=== PATIENT | female | born 1940 | race Caucasian/White ===

== ENCOUNTER 2016-09-23 12:54 | Inpatient (IN) | payer MEDICARE, OTHER ==
[2016-09-23] MEDS ORDERED: IBUPROFEN IV 600 MG in SODIUM CHLORIDE 0.9% 250 ML IV STA (13:32)
[2016-09-23] MEDS ORDERED: ACETAMINOPHEN TAB 500 MG TAB PO STA (13:32)
--- NOTE | 2016-09-23 13:37 | ED ---
General Adult HPI - General Chief complaint: Shortness of Breath Stated complaint: Chest Pain STEPHANIE Time Seen by Provider: 09/23/16 13:10 Source: patient, RN notes reviewed Mode of arrival: wheelchair Limitations: no limitations - History of Present Illness Initial comments: This is a 76-year-old female who presents emergency Department complaining of difficulty breathing over the last 3 days which is worsened every day. Patient also has become a little bit more confused today according to the daughter. Family is unaware that the patient has a fever of 101.1. Patient denies any significant cough lately. Patient denies any headache patient denies numbness weakness. Patient denies lightheadedness dizziness or near syncopal episode. Patient states all of her joints hurt her shoulders knee even her groin on the right hurts. Patient denies any abdominal pain patient denies nausea vomiting or diarrhea. Patient denies any back pain. Patient denies any dysuria hematuria urinary frequency. - Related Data Home Medications Medication Instructions Recorded Confirmed Albuterol Nebulized [Ventolin 2.5 mg INHALATION RT-BID 09/23/16 09/23/16 Nebulized] Albuterol Sulfate [Proventil Hfa] 1 - 2 puff INHALATION RT-Q6H PRN 09/23/1607/11 Aspirin 81 mg PO DAILY 09/23/16 09/23/16 Atorvastatin Calcium [Lipitor] 80 mg PO HS 09/23/16 09/23/16 Cilostazol [Pletal] 100 mg PO BID 09/23/16 09/23/16 Clopidogrel Bisulfate [Plavix] 75 mg PO DAILY 09/23/16 09/23/16 Cyclobenzaprine [Flexeril] 10 mg PO HS PRN 09/23/16 09/23/16 Fluticasone/Salmeterol [Advair 1 inhalation PO RT-BID 09/23/16 09/23/16 100-50 Diskus] Gabapentin [Neurontin] 100 mg PO TID 09/23/16 09/23/16 HYDROcodone/APAP 10-325MG [[place] 1 tab PO BID 09/23/16 09/23/16 10-325] Lmfol Ca/Acetyl/Mb12/Algal Oil 1 tab PO DAILY 09/23/16 09/23/16 [Cerefolin Nac Caplet] Metoprolol Tartrate [Lopressor] 25 mg PO BID 09/23/16 09/23/16 Multivitamins, Thera [Multivitamin 1 tab PO DAILY 09/23/16 09/23/16 (formulary)] Pantoprazole Sodium [Protonix] 40 mg PO DAILY 09/23/16 09/23/16 Ranitidine HCl [Zantac] 150 mg PO DAILY PRN 09/23/16 09/23/16 Tiotropium 18 Mcg/Puff [Spiriva] 1 cap INHALATION RT-DAILY 09/23/16 09/23/16 Valsartan [Diovan] 80 mg PO DAILY 09/23/16 09/23/16 Vit A,C & E/Lutein/Minerals 1 tab PO DAILY 09/23/16 09/23/16 [Ocuvite with Lutein Tablet] Allergies Allergy/AdvReac Type Severity Reaction Status Date / Time No Known Allergies Allergy Verified 09/23/16 13:35 Review of Systems ROS Statement: Those systems with pertinent positive or pertinent negative responses have been documented in the HPI. ROS Other: All systems not noted in ROS Statement are negative. Past Medical History Past Medical History: Cancer, COPD, Fibromyalgia, Hyperlipidemia, Hypertension Additional Past Medical History / Comment(s): back pain , lung cancer History of Any Multi-Drug Resistant Organisms: None Reported Past Surgical History: Heart Catheterization With Stent Past Psychological History: Depression Smoking Status: Former smoker Past Alcohol Use History: None Reported Past Drug Use History: None Reported General Exam - General Exam Comments Initial Comments: GENERAL: Patient is well-developed and well-nourished. Patient is nontoxic and well- hydrated and is in mild distress. ENT: Neck is soft and supple. No significant lymphadenopathy is noted. Oropharynx is clear. Moist mucous membranes. Neck has full range of motion without eliciting any pain. EYES: The sclera were anicteric and conjunctiva were pink and moist. Extraocular movements were intact and pupils were equal round and reactive to light. Eyelids were unremarkable. PULMONARY: Patient has diminished breath sounds particularly in the bases. CARDIOVASCULAR: There is a regular rate and rhythm without any murmurs gallops or rubs. ABDOMEN: Soft and nontender with normal bowel sounds. No palpable organomegaly was noted. There is no palpable pulsatile mass. SKIN: Skin is clear with no lesions or rashes and otherwise unremarkable. NEUROLOGIC: Patient is alert and oriented x3. Cranial nerves II through XII are grossly intact. Motor and sensory are also intact. Normal speech, volume and content. Symmetrical smile. MUSCULOSKELETAL: Normal extremities with adequate strength and full range of motion. No lower extremity swelling or edema. No calf tenderness. LYMPHATICS: No significant lymphadenopathy is noted PSYCHIATRIC: Normal psychiatric evaluation. Normal interpersonal interactions appears functionally intact in deals appropriately with others. No signs of depression. No signs of anxiety. Limitations: no limitations Course Vital Signs 09/23/16 09/23/16 13:10 13:21 Temperature 98.6 F 101.1 F H Pulse Rate 69 94 Respiratory 20 20 Rate Blood Pressure 179/71 172/78 O2 Sat by Pulse 99 96 Oximetry Medical Decision Making - Medical Decision Making Patient's EKG shows sinus rhythm with occasional PAC at 96 bpm GA interval 170 QRS is 74 Q-T intervals 358 QTC is 452. Patient's EKG has no ST segment elevations or depression or T wave abnormalities are noted. Chest x-ray shows shows a right middle lobe infiltrate. I started patient on Levaquin because of the patient's altered mental status the pneumonia high fever I brought the patient and is admitted patient. I with Dr. Veliz he agreed to admit the patient and wrote admitting orders. - Lab Data Result diagrams: 09/23/16 14:14 09/23/16 14:14 Lab Results 09/23/16 09/23/16 09/23/16 Range/Units 13:40 14:14 14:14 WBC 22.6 H (3.8-10.6) k/uL RBC 3.93 (3.80-5.40) m/uL Hgb 12.1 (11.4-16.0) gm/dL Hct 36.2 (34.0-46.0) % MCV 92.1 (80.0-100.0) fL MCH 30.8 (25.0-35.0) pg MCHC 33.5 (31.0-37.0) g/dL RDW 13.6 (11.5-15.5) % Plt Count 230 (150-450) k/uL Neutrophils % 85 % Lymphocytes % 7 % Monocytes % 6 % Eosinophils % 1 % Basophils % 0 % Neutrophils # 19.2 H (1.3-7.7) k/uL Lymphocytes # 1.6 (1.0-4.8) k/uL Monocytes # 1.3 H (0-1.0) k/uL Eosinophils # 0.1 (0-0.7) k/uL Basophils # 0.1 (0-0.2) k/uL PT (9.0-12.0) sec INR (<1.1) APTT (22.0-30.0) sec Sodium (137-145) mmol/L Potassium (3.5-5.1) mmol/L Chloride (98-107) mmol/L Carbon Dioxide (22-30) mmol/L Anion Gap mmol/L BUN (7-17) mg/dL Creatinine (0.52-1.04) mg/dL Est GFR (MDRD) Af Amer (>60 ml/min/1.73 sqM) Est GFR (MDRD) Non-Af (>60 ml/min/1.73 sqM) Glucose (74-99) mg/dL Plasma Lactic Acid Imer 1.3 (0.7-2.0) mmol/L Calcium (8.4-10.2) mg/dL Total Bilirubin (0.2-1.3) mg/dL AST (14-36) U/L ALT (9-52) U/L Alkaline Phosphatase (38-126) U/L Total Protein (6.3-8.2) g/dL Albumin (3.5-5.0) g/dL Urine Color Urine Appearance (Clear) Urine pH (5.0-8.0) Ur Specific Hale (1.001-1.035) Urine Protein (Negative) Urine Glucose (UA) (Negative) Urine Ketones (Negative) Urine Blood (Negative) Urine Nitrite (Negative) Urine Bilirubin (Negative) Urine Urobilinogen (<2.0) mg/dL Ur Leukocyte Esterase (Negative) Urine RBC (0-5) /hpf Urine WBC (0-5) /hpf Ur Squamous Epith Cells (0-4) /hpf Urine Bacteria (None) /hpf Urine Mucus (None) /hpf Influenza Type A RNA Not Detected (Not Detectd) Influenza Type B (PCR) Not Detected (Not Detectd) 09/23/16 09/23/16 09/23/16 Range/Units 14:14 14:14 14:35 WBC (3.8-10.6) k/uL RBC (3.80-5.40) m/uL Hgb (11.4-16.0) gm/dL Hct (34.0-46.0) % MCV (80.0-100.0) fL MCH (25.0-35.0) pg MCHC (31.0-37.0) g/dL RDW (11.5-15.5) % Plt Count (150-450) k/uL Neutrophils % % Lymphocytes % % Monocytes % % Eosinophils % % Basophils % % Neutrophils # (1.3-7.7) k/uL Lymphocytes # (1.0-4.8) k/uL Monocytes # (0-1.0) k/uL Eosinophils # (0-0.7) k/uL Basophils # (0-0.2) k/uL PT 12.2 H (9.0-12.0) sec INR 1.2 (<1.1) APTT 25.4 (22.0-30.0) sec Sodium 137 (137-145) mmol/L Potassium 3.9 (3.5-5.1) mmol/L Chloride 100 (98-107) mmol/L Carbon Dioxide 28 (22-30) mmol/L Anion Gap 9 mmol/L BUN 11 (7-17) mg/dL Creatinine 0.65 (0.52-1.04) mg/dL Est GFR (MDRD) Af Amer >60 (>60 ml/min/1.73 sqM) Est GFR (MDRD) Non-Af >60 (>60 ml/min/1.73 sqM) Glucose 130 H (74-99) mg/dL Plasma Lactic Acid Imer (0.7-2.0) mmol/L Calcium 9.4 (8.4-10.2) mg/dL Total Bilirubin 1.4 H (0.2-1.3) mg/dL AST 24 (14-36) U/L ALT 29 (9-52) U/L Alkaline Phosphatase 72 (38-126) U/L Total Protein 6.9 (6.3-8.2) g/dL Albumin 3.8 (3.5-5.0) g/dL Urine Color Yellow Urine Appearance Cloudy H (Clear) Urine pH 6.5 (5.0-8.0) Ur Specific Hale 1.015 (1.001-1.035) Urine Protein Trace H (Negative) Urine Glucose (UA) Negative (Negative) Urine Ketones Negative (Negative) Urine Blood Moderate H (Negative) Urine Nitrite Negative (Negative) Urine Bilirubin Negative (Negative) Urine Urobilinogen 2.0 (<2.0) mg/dL Ur Leukocyte Esterase Large H (Negative) Urine RBC 14 H (0-5) /hpf Urine WBC 13 H (0-5) /hpf Ur Squamous Epith Cells 2 (0-4) /hpf Urine Bacteria Rare H (None) /hpf Urine Mucus Rare H (None) /hpf Influenza Type A RNA (Not Detectd) Influenza Type B (PCR) (Not Detectd) Disposition Clinical Impression: Pneumonia Disposition: ADMITTED IP TO THIS [facility] Time of Disposition: 15:04
[2016-09-23] MEDS: SODIUM CHLORIDE 0.9% 500 ML IV SCH ×2 (13:42→15:10)
--- NOTE | 2016-09-23 14:03 | XR ---
EXAMINATION TYPE: XR chest 1V portable DATE OF EXAM: 09/23/2016 1:51 PM Comparison: 12/16/2011 Clinical History: 76-year-old female with fever Findings: The heart is normal size. There appears to be hilar prominence that could reflect underlying bone or joint hypertension. Hyperinflation. Focal airspace opacity right upper lobe. No pleural effusion. Dis placed right posterior rib fracture deformities. Correlate as to age. Impression: 1. COPD. 2. Focal air space opacity right upper lobe. Findings suggest pneumonia given the patient's fever. Fo llow-up after treatment to ensure clearance. We note prior exams stating a history of lung cancer in this patient. 3. Displaced right-sided posterior rib fractures, indeterminate age, probably chronic given descripti on on PET/CT of 11/19/2013. Clinically correlate.
[2016-09-23 14:44] LABS: ALT 29 U/L (9-52); AST 24 U/L (14-36); Alkaline Phosphatase 72 U/L (38-126); Anion Gap 9 mmol/L; Blood Urea Nitrogen 11 mg/dL (7-17); Calcium 9.4 mg/dL (8.4-10.2); Carbon Dioxide 28 mmol/L (22-30); Chloride 100 mmol/L (98-107); Glucose 130 mg/dL (74-99); Non-African American GFR(MDRD) >60 (>60 ml/min/1.73 sqM); Potassium 3.9 mmol/L (3.5-5.1); Sodium 137 mmol/L (137-145); Total Bilirubin 1.4 mg/dL (0.2-1.3); Total Protein 6.9 g/dL (6.3-8.2)
[2016-09-23 14:48] LABS: INR 1.2 (<1.1); Partial Thromboplastin Time 25.4 sec (22.0-30.0); Prothrombin Time 12.2 sec (9.0-12.0)
[2016-09-23 14:49] LABS: Appearance,Urine Cloudy (Clear); Bacteria,Urine Rare /hpf; Bilirubin,Urine Negative (Negative); Glucose,Urine (UA) Negative (Negative); Ketones,Urine Negative (Negative); Leukocyte Esterase,Urine Large (Negative); Mucus,Urine Rare /hpf; Nitrite,Urine Negative (Negative); PH, Urine 6.5 (5.0-8.0); Particle Count 6166; Protein,Urine Trace (Negative); RBC,Urine 14 /hpf (0-5); Specific Gravity,Urine 1.015 (1.001-1.035); Squamous Epithelial Cell,Urine 2 /hpf (0-4); UA Billing (MACRO vs. MICRO) MICRO; WBC,Urine 13 /hpf (0-5)
[2016-09-23 14:51] LABS: Basophils # (A) 0.1 k/uL (0-0.2); Basophils % (A) 0 %; CH 30.8; CHCM 33.6; Eosinophils # (A) 0.1 k/uL (0-0.7); Eosinophils % (A) 1 %; HCT 36.2 % (34.0-46.0); HGB 12.1 gm/dL (11.4-16.0); Luc % (Auto) 1; Lymphocytes # (A) 1.6 k/uL (1.0-4.8); Lymphocytes % (A) 7 %; MCH 30.8 pg (25.0-35.0); MCHC 33.5 g/dL (31.0-37.0); MCV 92.1 fL (80.0-100.0); Mean Platelet Volume 7.2; Monocytes # (A) 1.3 k/uL (0-1.0); Monocytes % (A) 6 %; Neutrophils # (A) 19.2 k/uL (1.3-7.7); Neutrophils % (A) 85 %; RBC 3.93 m/uL (3.80-5.40); RDW 13.6 % (11.5-15.5); WBC 22.6 k/uL (3.8-10.6); WBC (Perox) 22.11
[2016-09-23 14:53] LABS: Creatine Kinase 49 U/L (30-135)
[2016-09-23] MEDS ORDERED: LEVOFLOXACIN 750MG-D5W PMX 750 MG in DEXTROSE/WATER 1 150ML.BAG IVPB STA (14:54)
[2016-09-23] MEDS ORDERED: PNEUMONIA PROTOCOL UTILIZED 1 EACH MISC PO PRN (15:05)
[2016-09-23 15:06] LABS: Creatine Kinase MB 0.8 ng/mL (0.0-2.4); Troponin I <0.012 ng/mL (0.000-0.034)
[2016-09-23] MEDS: ALBUTEROL NEBULIZED 2.5 MG/3 ML INHALATION SCH ×2 (16:20→19:29)
[2016-09-23] MEDS ORDERED: RX INFO: IV CONTRAST WAS GIVEN 1 EACH MISC MISCELLANE PRN (16:23)
[2016-09-23] MEDS ORDERED: CYCLOBENZAPRINE 10 MG TAB PO PRN (16:24)
--- NOTE | 2016-09-23 18:13 | CT ---
EXAMINATION TYPE: CT chest w con DATE OF EXAM: 09/23/2016 5:48 PM COMPARISON: CT chest February 04, 2013. PET/CT November 19, 2013 HISTORY: Shortness of breath with history of lung cancer CT DLP: 128.1 mGycm. Automated Exposure Control for Dose Reduction was Utilized. TECHNIQUE: CT scan of the thorax is performed following with IV Contrast, patient injected with 100 mL of Omnipaque 300. FINDINGS: LUNGS: Mild underlying emphysematous change is present. There is masslike consolidation with central cavitation measuring 3.5 x 2.7 cm in the right upper lobe on axial image 26. Surrounding groundglass opacity is seen. There is tiny right pleural effusion. There is posterior right basilar atelectasis a nd/or scarring in the lower lobe. There is calcified 4 mm nodule medially in the superior aspect left lower lobe on axial image 29. Dependent atelectasis in the inferior left lower lobe is present. No p neumothorax is seen bilaterally MEDIASTINUM: There are no greater than 1 cm hilar or mediastinal lymph nodes. Scattered subcentimeter prominent lymph nodes AP window, paratracheal, and subcarinal lesions are noted slightly more promin ent than prior CT favor reactive. No cardiomegaly or pericardial effusion is seen. Coronary artery calcification is seen which is noted marker for coronary artery disease. There is mild to moderate m ixed plaque in visualized aorta. OTHER: Cholecystectomy clips are noted a simple appearing cyst laterally mid pole level left kidney i s redemonstrated on last axial images. Osseous structures are demineralized. Right-sided rib deformit ies are redemonstrated. IMPRESSION: Mild emphysematous change with cavitary masslike lesion right upper lobe and surrounding groundglass opacity favoring focal infectious process or cavitary pneumonia. Recurrent neoplasm is no t included but felt less likely. Follow-up to resolution advised.
[2016-09-23] MEDS: SYMBICORT 80-4.5 MCG INHALER INHALATION SCH (19:26)
[2016-09-23] MEDS: CLINDAMYCIN 900 MG in DEXTROSE 5% IN WATER 50 ML IVPB SCH ×2 (20:47)
[2016-09-23] MEDS: METOPROLOL TARTRATE 25 MG TAB PO SCH (20:59)
[2016-09-23] MEDS: ATORVASTATIN 80 MG TAB PO SCH (20:59)
[2016-09-23] MEDS: CILOSTAZOL 100 MG TAB PO SCH (20:59)
[2016-09-23 21:16] LABS: Glucose,Whole Blood 110 mg/dL (75-99)
[2016-09-23] MEDS ORDERED: GABAPENTIN 100 MG CAP PO ONE (22:00)
[2016-09-23] MEDS ORDERED: GABAPENTIN 100 MG CAP PO SCH (22:00)
[2016-09-23] MEDS: HYDROcodone/APAP 10-325MG 1 EACH TAB PO PRN (22:27)
--- NOTE | 2016-09-23 23:19 | HP ---
DATE OF ADMISSION: 09/23/2016 CHIEF COMPLAINT: Generalized weakness and fevers. HISTORY OF PRESENTING ILLNESS: This is a 76-year-old lady, apparently with a previous history of lung carcinoma, status post radiation 5 years ago. Family was told that she was in remission in 2013 after a PET scan. She comes into the hospital with complaints of generalized weakness over the last 2 to 3 days. Patient's oral intake has been significantly decreased over the same period of time. She thereafter was noted to have significant and progressive worsening of breathing difficulty associated with cough that is greenish-yellowish in phlegm production. Patient was also noted to have a temperature of 101.1 and was tachycardic initially on evaluation. Patient was seen in the emergency room. A chest x-ray revealed a right upper lobe pneumonic process. Patient was given IV fluids and her heart rate appropriately improved. Patient during the time of my evaluation in the emergency room states that she feels significantly better; denies having any headaches, blurry vision, nausea, vomiting, diarrhea. Patient does state she has a cough; however, her breathing has also improved. Currently she is on 3 L of supplemental oxygen. Patient usually uses 2 L of supplemental oxygen. Patient quit smoking about 2 months ago; has had significant exposure to tobacco. Past medical history includes: 1. Lung cancer, unknown type. 2. COPD. 3. Fibromyalgia. 4. Hyperlipidemia. 5. Hypertension. 6. PAD. 7. CAD. Past surgical history includes cardiac catheterization, previous radiation. SOCIAL HISTORY: Former smoker; quit 2 years ago; over 70 pack/year smoking history. Currently lives alone. ALLERGIES: NO KNOWN DRUG ALLERGIES. FAMILY HISTORY: Not pertinent to current admission. Medications include: 1. Lipitor. 2. Pletal. 3. Plavix. 4. Flexeril. 5. Advair. 6. Neurontin. 7. [place]. 8. Cerefolin. 9. Lopressor. 10. Multivitamin. 11. Protonix. 12. Zantac. 13. Spiriva. 14. Diovan. 15. Multivitamin. Appropriate doses were reviewed and reconciled on admission. REVIEW OF SYSTEMS: Fourteen-point review of system was done; none pertinent other than those mentioned above. PHYSICAL EXAMINATION: GENERAL APPEARANCE: Alert and oriented x3. Does not appear to be in distress. Pupils are equal, round and reactive to light and accommodation. Extraocular movements intact. Neck is supple. No JVD. LUNGS: Silent chest. No significant wheezing appreciated. No other abnormal sounds appreciated. HEART: S1, S2 heard. No murmurs appreciated. ABDOMEN: Soft, nontender. No organomegaly. LOWER EXTREMITIES: No edema appreciated. EKG appears to show sinus rhythm with some PACs. Laboratory data include white count of 22.6, hemoglobin 12.1, hematocrit 36.2, platelets of 230. Sodium 137, potassium 3.9, chloride 100, bicarb 28. BUN 11, creatinine 0.65. ASSESSMENT AND PLAN: 1. Sepsis secondary to community-acquired pneumonia in the right upper lobe. 2. Acute on chronic hypoxic respiratory failure. 3. Coronary artery disease. 4. Peripheral artery disease. 5. Dyslipidemia. 6. History of lung cancer. 7. Peripheral neuropathy. 8. Hypertension. 9. Chronic obstructive pulmonary disease. PLAN: Patient does have a history of lung cancer; however, the patient's history does not appear synchronous with familiar treatment therapy. Will obtain a CT scan of the chest with IV contrast. However, this does appear to be an infectious etiology at this time, as patient does have a fever and an elevated white count. Patient does not state having any odontogenic abscesses or any infections at this time. Will consult of Dr. Rah Guillaume, who is her machine featheredger and reducer, as well to evaluate the patient at this current time. Medications were reconciled. DVT prophylaxis. Will change antibiotics to Rocephin. Will add a dose of clindamycin as well, depending on the size of the lesion. Continue ongoing care.
[2016-09-23] MEDS ORDERED: HYDROmorphone 1 MG/ML 1 ML SYRINGE IVP STA (23:29)
[2016-09-24] MEDS: CLINDAMYCIN 900 MG in DEXTROSE 5% IN WATER 50 ML IVPB SCH ×6 (04:38→20:42)
[2016-09-24] MEDS ORDERED: HYDROmorphone 1 MG/ML 1 ML SYRINGE ONE (05:37)
[2016-09-24] MEDS: SYMBICORT 80-4.5 MCG INHALER INHALATION SCH ×2 (07:26→20:10)
[2016-09-24] MEDS: ALBUTEROL NEBULIZED 2.5 MG/3 ML INHALATION SCH ×4 (07:26→20:10)
--- NOTE | 2016-09-24 07:59 | XR ---
EXAMINATION TYPE: XR chest 2V DATE OF EXAM: 09/24/2016 7:55 AM COMPARISON: September 23, 2016 HISTORY: Shortness of breath TECHNIQUE: Frontal and lateral views of the chest are obtained. FINDINGS: Scattered senescent parenchymal changes noted. Hyperinflation compatible with COPD. Increasing airspace consolidation right upper lobe. Correlate for pneumonia. Follow-up until resoluti on is recommended. Heart size is stable. Mediastinal structures are stable and grossly unremarkable. No evidence for hilar prominence. Degenerative changes dorsal spine. IMPRESSION: 1. Increasing airspace consolidation right upper lobe. Correlate for pneumonia. Follow-up until resol ution is recommended.
[2016-09-24 09:33] LABS: Basophils % (A) 0 %; CH 29.8; CHCM 31.8; Eosinophils # (A) 0.1 k/uL (0-0.7); Eosinophils % (A) 1 %; HCT 33.1 % (34.0-46.0); HDW 2.33; HGB 10.6 gm/dL (11.4-16.0); Luc # (Auto) 0.32; Luc % (Auto) 2; Lymphocytes # (A) 1.5 k/uL (1.0-4.8); Lymphocytes % (A) 8 %; MCHC 31.9 g/dL (31.0-37.0); MCV 94.1 fL (80.0-100.0); Mean Platelet Volume 7.3; Monocytes # (A) 0.9 k/uL (0-1.0); Monocytes % (A) 4 %; Neutrophils # (A) 17.2 k/uL (1.3-7.7); Neutrophils % (A) 86 %; RBC 3.52 m/uL (3.80-5.40); RDW 13.6 % (11.5-15.5); WBC 20.1 k/uL (3.8-10.6); WBC (Perox) 20.91
[2016-09-24 09:35] LABS: ALT 29 U/L (9-52); AST 22 U/L (14-36); Alkaline Phosphatase 81 U/L (38-126); Anion Gap 12 mmol/L; Blood Urea Nitrogen 13 mg/dL (7-17); Calcium 9.1 mg/dL (8.4-10.2); Carbon Dioxide 23 mmol/L (22-30); Chloride 101 mmol/L (98-107); Glucose 153 mg/dL (74-99); Magnesium 1.3 mg/dL (1.6-2.3); Non-African American GFR(MDRD) >60 (>60 ml/min/1.73 sqM); Sodium 136 mmol/L (137-145); Total Bilirubin 1.4 mg/dL (0.2-1.3); Total Protein 6.1 g/dL (6.3-8.2)
[2016-09-24 09:40] LABS: Potassium 3.3 mmol/L (3.5-5.1)
[2016-09-24] MEDS: AZITHROMYCIN 500 MG in SODIUM CHLORIDE 0.9% 250 ML IVPB SCH (11:27)
[2016-09-24] MEDS: PANTOPRAZOLE 40 MG TABLET PO SCH (11:28)
[2016-09-24] MEDS: CILOSTAZOL 100 MG TAB PO SCH ×2 (11:28→21:06)
[2016-09-24] MEDS: ASPIRIN 81 MG CHEW PO SCH (11:28)
[2016-09-24] MEDS: CLOPIDOGREL 75 MG TAB PO SCH (11:29)
[2016-09-24] MEDS: VALSARTAN 80 MG TAB PO SCH ×2 (11:29→21:05)
[2016-09-24] MEDS: METOPROLOL TARTRATE 25 MG TAB PO SCH (11:30)
[2016-09-24] MEDS: TIOTROPIUM 18 MCG/PUFF INHALER INHALATION SCH (11:42)
[2016-09-24 12:00] LABS: Glucose,Whole Blood 306 mg/dL (75-99)
[2016-09-24] MEDS: MULTIVITAMINS, THERA 1 EACH TAB PO SCH (14:08)
[2016-09-24] MEDS: HYDROcodone/APAP 10-325MG 1 EACH TAB PO PRN ×2 (14:09→23:05)
[2016-09-24] MEDS: ONDANSETRON 4 MG/2 ML VIAL IVP PRN ×2 (14:09→20:42)
[2016-09-24] MEDS ORDERED: LEVOFLOXACIN 750MG-D5W PMX 750 MG in DEXTROSE/WATER 1 150ML.BAG IVPB SCH (15:00)
[2016-09-24 15:13] LABS: Hemoglobin A1C 5.9 % (4.2-6.1)
--- NOTE | 2016-09-24 15:33 | P.CNPUL ---
History of Present Illness Consult date: 09/24/16 Requesting physician: Jamie Hall Reason for consult: pneumonia Chief complaint: Shortness of breath History of present illness: Physical 76-year-old female patient who is being evaluated and examined today on the fourth floor. Patient came into the emergency room for generalized weakness over the last few days as well as decreased appetite and shortness of breath with cough that is productive with green sputum. She was also noted to have a temperature 101.1 and was tachycardic. A chest x-ray was performed and demonstrated a right upper lobe pneumonia. Patient was given IV fluids along with other medications and her heart rate and fever both improved. The patient does have a history of lung carcinoma with status post radiation for 5 years. The patient and the family were both told that she was in remission in 2013 after a PET scan. Patient does have a history of smoking however she stated she stopped smoking a few months ago. A CT of the chest was obtained and reveals mild emphysematous change with cavitary masslike lesions to the right upper lobe favoring focal infectious process or cavitary pneumonia, recurrent neoplasia some is not excluded but felt less likely. Upon examination the patient is resting in bed and feels better she is afebrile. She is currently on 2 L of supplemental oxygen which is what she uses at home. She feels her breathing has improved however she's not at baseline. She continues to have a cough which is productive with yellow sputum. Review of Systems 14 point review of systems was completed and is negative other than what's noted in the HPI. Past Medical History Past Medical History: Cancer, COPD, CVA/TIA, Deep Vein Thrombosis (DVT), Fibromyalgia, GERD/Reflux, Hyperlipidemia, Hypertension, Osteoarthritis (OA), Sleep Apnea/CPAP/BIPAP, Vascular Disorder Additional Past Medical History / Comment(s): back pain , lung cancer-radiation opnly, HOME 02 2 LITERS N/C, BLOOD CLOT AFTER SX, CVA LT SIDE AFFECTED SINCE RESOLVED, HIATAL HERNIA. SHINGLES 30 YEARS AGO, DOES'NT USE CPAP MACHINE.in past for short period of time took oral meds for dm-then taken off meds-pt stated not considered diabetic now but occ will check bs., macular degeneration.past broken rt leg and lt wrist History of Any Multi-Drug Resistant Organisms: None Reported Past Surgical History: Cholecystectomy, Heart Catheterization With Stent, Orthopedic Surgery, Tonsillectomy Additional Past Surgical History / Comment(s): rt leg repaired after break-has pins, lt wrist-plate and screws.lung bx, stents tung groins Past Anesthesia/Blood Transfusion Reactions: Family History of Problems w/ Anesthesia Additional Past Anesthesia/Blood Transfusion Reaction / Comment(s): daughter has diff waking after aa Date of Last Stent Placement:: unk Past Psychological History: Depression Additional Psychological History / Comment(s): [place] between [place] and [place]. does'nt drive- either daughters or sister takes her places. has home 02, nebulizer. Smoking Status: Former smoker Past Alcohol Use History: Occasional Additional Past Alcohol Use History / Comment(s): started smopking at age 14( 5), quit 1976 Past Drug Use History: None Reported - Past Family History Father Family Medical History: Congestive Heart Failure (CHF), COPD Additional Family Medical History / Comment(s): emphysema Mother Family Medical History: Cancer Medications and Allergies Home Medications Medication Instructions Recorded Confirmed Type Albuterol Nebulized [Ventolin 2.5 mg INHALATION RT-BID 09/23/16 09/23/16 History Nebulized] Albuterol Sulfate [Proventil Hfa] 1 - 2 puff INHALATION RT-Q6H PRN 09/23/1607/11 History Aspirin 81 mg PO DAILY 09/23/16 09/23/16 History Atorvastatin Calcium [Lipitor] 80 mg PO HS 09/23/16 09/23/16 History Cilostazol [Pletal] 100 mg PO BID 09/23/16 09/23/16 History Clopidogrel Bisulfate [Plavix] 75 mg PO DAILY 09/23/16 09/23/16 History Cyclobenzaprine [Flexeril] 10 mg PO HS PRN 09/23/16 09/23/16 History Fluticasone/Salmeterol [Advair 1 inhalation PO RT-BID 09/23/16 09/23/16 History 100-50 Diskus] Gabapentin [Neurontin] 100 mg PO TID 09/23/16 09/23/16 History HYDROcodone/APAP 10-325MG [Upatoi 1 tab PO BID 09/23/16 09/23/16 History 10-325] Lmfol Ca/Acetyl/Mb12/Algal Oil 1 tab PO DAILY 09/23/16 09/23/16 History [Cerefolin Nac Caplet] Metoprolol Tartrate [Lopressor] 25 mg PO BID 09/23/16 09/23/16 History Multivitamins, Thera [Multivitamin 1 tab PO DAILY 09/23/16 09/23/16 History (formulary)] Pantoprazole Sodium [Protonix] 40 mg PO DAILY 09/23/16 09/23/16 History Ranitidine HCl [Zantac] 150 mg PO DAILY PRN 09/23/16 09/23/16 History Tiotropium 18 Mcg/Puff [Spiriva] 1 cap INHALATION RT-DAILY 09/23/16 09/23/16 History Valsartan [Diovan] 80 mg PO DAILY 09/23/16 09/23/16 History Vit A,C & E/Lutein/Minerals 1 tab PO DAILY 09/23/16 09/23/16 History [Ocuvite with Lutein Tablet] Allergies Allergy/AdvReac Type Severity Reaction Status Date / Time No Known Allergies Allergy Verified 09/23/16 13:35 Physical Exam Vitals: Vital Signs Temp Pulse Pulse Resp BP BP BP 09/24/16 11:54 100 09/24/16 11:42 104 H 09/24/16 10:24 120/56 09/24/16 07:39 90 09/24/16 07:26 90 09/24/16 07:00 98.0 F 90 20 98/44 09/23/16 23:00 97.6 F 78 18 110/73 09/23/16 19:41 100 09/23/16 19:29 99 09/23/16 18:01 97.3 F L 87 20 126/61 09/23/16 16:15 98.9 F 77 18 110/57 Pulse Ox 09/24/16 11:54 09/24/16 11:42 09/24/16 10:24 09/24/16 07:39 09/24/16 07:26 97 09/24/16 07:00 97 09/23/16 23:00 99 09/23/16 19:41 09/23/16 19:29 99 09/23/16 18:01 99 09/23/16 16:15 100 Intake and Output 09/24/16 09/24/16 09/24/16 06:59 14:59 22:59 Intake Total 100 Balance 100 Intake: Oral 100 Other: Voiding Method Toilet Toilet # Voids 1 2 # Emeses 4 Weight 53.524 kg Patient Weight 09/25/16 06:59 Weight 53.524 kg GENERAL EXAM: Alert, active, comfortable in no apparent distress. HEAD: Normocephalic. EYES: Normal reaction of pupils, equal size. NOSE: Clear with pink turbinates. THROAT: No erythema or exudates. NECK: No masses, no JVD. CHEST: No chest wall deformity. LUNGS: Lung sounds diminished. CVS: S1 and S2 normal with no audible mumurs, regular rhythm. ABDOMEN: No hepatosplenomegaly, normal bowel sounds, no guarding or rigidity. EXTREMITIES: No edema noted, pedal pulses palpable. SKIN: No rashes CENTRAL NERVOUS SYSTEM: No focal deficits, tone is normal in all 4 extremities. Results - Laboratory Findings CBC and BMP: 09/24/16 08:46 09/24/16 08:46 PT/INR, D-dimer PT 12.2 sec (9.0-12.0) H 09/23/16 14:14 INR 1.2 (<1.1) 09/23/16 14:14 Abnormal lab findings: Abnormal Labs 09/23/16 09/24/16 09/24/16 21:01 08:46 08:46 WBC 20.1 H RBC 3.52 L Hgb 10.6 L Hct 33.1 L Neutrophils # 17.2 H Sodium 136 L Potassium 3.3 L Glucose 153 H POC Glucose (mg/dL) 110 H Magnesium 1.3 L Total Bilirubin 1.4 H Total Protein 6.1 L Albumin 3.3 L 09/24/16 11:53 WBC RBC Hgb Hct Neutrophils # Sodium Potassium Glucose POC Glucose (mg/dL) 306 H Magnesium Total Bilirubin Total Protein Albumin - Diagnostic Findings Chest x-ray: report reviewed, image reviewed Assessment and Plan Plan: Assessment Sepsis secondary to community-acquired pneumonia in the right upper lobe acute on chronic hypoxic respiratory failure chronic obstructive pulmonary disease coronary artery disease Peripheral arterial disease Dyslipidemia History of lung cancer Peripheral neuropathy Hypertension Plan Medications have been reviewed and will be continued as ordered. We will continue with antibiotics in the form of Rocephin. We'll also add IV steroids. Obtain sputum culture. We will initiate and encourage incentive spirometer. Continue with supplemental oxygen, nebulizer treatments, pulmonary hygiene and supportive care. We will continue to monitor labs/results and adjust treatment as necessary. I performed an examination of the patient and discussed their management with the nurse practitioner. I have reviewed the nurse practitioner's note and agree with the documented findings and plan of care.
[2016-09-24] MEDS ORDERED: Magnesium Replacement Protocol 1 EACH MISC MISCELLANE PRN (15:56)
[2016-09-24] MEDS ORDERED: Potassium Replacement Protocol 1 EACH MISC MISCELLANE PRN (15:56)
[2016-09-24] MEDS: methylPREDNISolone SOD SUCCI 40 MG/ML 1 ML VIAL IV SCH (16:28)
[2016-09-24] MEDS: MAGNESIUM SULFATE-D5W PMX 1 GM in DEXTROSE/WATER 1 100ML.BAG IVPB SCH ×3 (16:28→18:43)
[2016-09-24] MEDS: POTASSIUM CHLORIDE ER 20 MEQ TAB.ER PO SCH ×2 (16:30→17:40)
[2016-09-24 17:31] LABS: Glucose,Whole Blood 158 mg/dL (75-99)
[2016-09-24] MEDS: SENNOSIDES 8.6 MG TAB PO PRN (17:40)
[2016-09-24] MEDS: INSULIN LISPRO (humaLOG) 300 UNIT/3 ML VIAL SQ SCH ×2 (17:41→21:05)
[2016-09-24 20:39] LABS: Anion Gap 8 mmol/L; Blood Urea Nitrogen 13 mg/dL (7-17); Calcium 8.5 mg/dL (8.4-10.2); Carbon Dioxide 27 mmol/L (22-30); Chloride 96 mmol/L (98-107); Glucose 230 mg/dL (74-99); Non-African American GFR(MDRD) >60 (>60 ml/min/1.73 sqM); Potassium 3.4 mmol/L (3.5-5.1); Sodium 131 mmol/L (137-145)
[2016-09-24 20:49] LABS: Glucose,Whole Blood 247 mg/dL (75-99)
[2016-09-24] MEDS: GABAPENTIN 300 MG CAP PO SCH (21:05)
[2016-09-24] MEDS: ATORVASTATIN 80 MG TAB PO SCH (21:05)
[2016-09-24] MEDS: MELATONIN 5 MG TABLET PO SCH (21:06)
[2016-09-24] MEDS: METOPROLOL TARTRATE 50 MG TAB PO SCH (21:13)
[2016-09-24] MEDS: POTASSIUM CHLORIDE 20 MEQ, LIDOCAINE 2% INJ 20 MG in SODIUM CHLORIDE 0.9% 100 ML IVPB SCH (21:42)
[2016-09-24] MEDS: NYSTATIN 100,000 UNIT/ML SUSP 500,000 UNIT/5 ML CUP PO SCH (21:43)
--- NOTE | 2016-09-24 21:57 | CONS ---
DATE OF CONSULTATION: ADDENDUM TO CONSULTATION EARLIER THIS MORNING: Ms. Jenni Hercules is seen, evaluated, examined; care plan discussed with HR ASSISTANT. Detailed consultation note as per her. Ms. Jenni Hercules is well known to me. She was found to have right upper lobe cancer back in 2011, which was biopsied and treated with radiation therapy. Patient has been in remission. Most of the follow-up CT scans have been performed in the [facility], where she lives half of the time. Back in 2013 she had a PET scan performed over here which revealed absence of high uptakes; however, 2 rib fractures were seen which were conservatively treated and monitored and observed. This patient of note had pneumonia and was hospitalized in [place]; stayed there for 3 to 4 days back in July of this year. Patient subsequently recovered and was discharged. She went on vacation out of the country in the [facility], where she spent about 9 days. She came back and started having fever, chills. CT scan performed earlier today revealed presence of right upper lobe cavity, likely to be chronic, but of concern that surrounding inflammatory processes are present. Unusual bacterial or fungal pneumonia cannot be excluded. I have discussed with her at length. Would recommend doing a bronchoscopy and obtaining a good sample and adjustment of antibiotics as needed, as differential diagnosis is broad and could have unusual bacterial or fungal infection as well. In the meantime, will continue current antibiotics. I have discussed with her at length about the procedure of bronchoscopy. Will set her up for tomorrow. If we see something abnormal, we will biopsy it; otherwise, main plan is to get a good sample from the lungs.
--- NOTE | 2016-09-24 22:21 | PN ---
SUBJECTIVE DATA/HOSPITAL COURSE: This is 76-year-old female that was admitted to the hospital with a fever and difficulty in breathing associated with cough. Patient was noted to have a right upper lobe pneumonia. Patient was started on Rocephin, Zithromax; however, I did add clindamycin overnight, as it was a cavitary pneumonia in the right middle lobe. Today, patient states to be feeling slightly improved from her admission; however, states that she has had 4 episodes of emesis this morning after a breathing treatment. Denies having any headaches, blurry vision, diarrhea, urinary urgency or frequency at this time. PHYSICAL EXAMINATION: VITALS: Temperature is within normal limits. Heart rate is around 102, blood pressure 107/56, saturating 97% on 2 liters supplemental oxygen. GENERAL APPEARANCE: Alert, oriented x3. Does not appear to be in distress. LUNGS: Diminished breath sounds. No rhonchi, wheezing or crackles. HEART: Slightly tachycardic. No murmurs appreciated. S1, S2 heard. Regular rhythm. ABDOMEN: Soft, nontender, no organomegaly. LOWER EXTREMITIES: No edema noted. Pulses palpable. Neural no focal motor or sensory deficits noted. Laboratory data include today hemoglobin 10.6, hematocrit 33, white count 20, platelets of 223, sodium 136, potassium 3.8, chloride 101, bicarb 23, BUN 13, creatinine 0.70. ASSESSMENT AND PLAN: 1. Sepsis secondary to community-acquired pneumonia in the right upper lobe also concern for aspiration. 2. History of right upper lobe cancer. 3. Dyslipidemia. 4. Coronary artery disease. 5. Peripheral artery disease. 6. Sinus tachycardia. 7. Hypertension. 8. Chronic obstructive pulmonary disease with an acute exacerbation secondary to above. PLAN: Continue ongoing care. Pulmonary recommendations are appreciated. Continue steroid therapy. We will increase the beta javier to 50 b.i.d. of metoprolol, GI prophylaxis to be continued. Patient is slightly improved. ( ) de-escalate antibiotics following resolution depending on serial x-rays. We will follow. The patient is back to her baseline oxygen requirement. DVT prophylaxis with Lovenox 40 mg subcutaneously. Continue ongoing care at this time. Encourage activity.
[2016-09-25] MEDS: POTASSIUM CHLORIDE 20 MEQ, LIDOCAINE 2% INJ 20 MG in SODIUM CHLORIDE 0.9% 100 ML IVPB SCH ×3
[2016-09-25] MEDS: CLINDAMYCIN 900 MG in DEXTROSE 5% IN WATER 50 ML IVPB SCH ×4 (04:03→14:19)
[2016-09-25 07:13] LABS: Glucose,Whole Blood 224 mg/dL (75-99)
[2016-09-25] MEDS: INSULIN LISPRO (humaLOG) 300 UNIT/3 ML VIAL SQ SCH ×4 (08:02→21:17)
[2016-09-25] MEDS: ALBUTEROL NEBULIZED 2.5 MG/3 ML INHALATION SCH ×4 (08:06→19:06)
[2016-09-25] MEDS: methylPREDNISolone SOD SUCCI 40 MG/ML 1 ML VIAL IV SCH ×3 (08:06→15:42)
[2016-09-25] MEDS: SYMBICORT 80-4.5 MCG INHALER INHALATION SCH ×2 (08:06→19:06)
[2016-09-25] MEDS: METOPROLOL TARTRATE 50 MG TAB PO SCH ×2 (08:07→21:16)
[2016-09-25] MEDS: TIOTROPIUM 18 MCG/PUFF INHALER INHALATION SCH (08:07)
[2016-09-25] MEDS: NYSTATIN 100,000 UNIT/ML SUSP 500,000 UNIT/5 ML CUP PO SCH ×4 (08:07→21:16)
[2016-09-25] MEDS: PANTOPRAZOLE 40 MG TABLET PO SCH (08:08)
[2016-09-25 09:00] LABS: Basophils % (A) 0 %; CH 30.2; CHCM 32.5; Eosinophils % (A) 0 %; HCT 30.2 % (34.0-46.0); HDW 2.41; HGB 9.9 gm/dL (11.4-16.0); Luc # (Auto) 0.06; Luc % (Auto) 0; Lymphocytes # (A) 0.6 k/uL (1.0-4.8); Lymphocytes % (A) 4 %; MCH 30.6 pg (25.0-35.0); MCHC 32.9 g/dL (31.0-37.0); MCV 93.2 fL (80.0-100.0); Mean Platelet Volume 7.7; Monocytes # (A) 0.4 k/uL (0-1.0); Monocytes % (A) 3 %; Neutrophils # (A) 13.7 k/uL (1.3-7.7); Neutrophils % (A) 93 %; RBC 3.24 m/uL (3.80-5.40); RDW 13.5 % (11.5-15.5); WBC 14.8 k/uL (3.8-10.6); WBC (Perox) 14.99
[2016-09-25] MEDS ORDERED: PROPOFOL 10 MG/ML 20 ML VIAL IV ONE (09:05)
[2016-09-25] MEDS ORDERED: LIDOCAINE 1% INJ 10MG/ML (20 ML MDV) ONE (09:05)
[2016-09-25 09:12] LABS: ALT 19 U/L (9-52); AST 22 U/L (14-36); Alkaline Phosphatase 78 U/L (38-126); Anion Gap 12 mmol/L; Blood Urea Nitrogen 20 mg/dL (7-17); Calcium 9.1 mg/dL (8.4-10.2); Carbon Dioxide 23 mmol/L (22-30); Chloride 102 mmol/L (98-107); Glucose 205 mg/dL (74-99); Magnesium 2.3 mg/dL (1.6-2.3); Non-African American GFR(MDRD) 54 (>60 ml/min/1.73 sqM); Potassium 4.6 mmol/L (3.5-5.1); Sodium 137 mmol/L (137-145); Total Bilirubin 0.6 mg/dL (0.2-1.3); Total Protein 6.1 g/dL (6.3-8.2)
[2016-09-25] MEDS ORDERED: IV FLUID CONTINUATION 600 ML IV ONE (09:14)
[2016-09-25] MEDS ORDERED: LIDOCAINE 1% 20 ML VIAL (10MG/ML) FOR IV START INTRATRACH ONE (09:24)
--- NOTE | 2016-09-25 10:05 | PCN ---
DATE OF PROCEDURE: 09/25/2016 PROCEDURE: 1. Bronchoscopy. 2. Bronchoalveolar lavage of the right upper lobe. OPERATIVE DETAIL: For anesthesia please refer to the anesthesia note. Patient after obtaining a conscious sedation and informed consent, tip of the scope was passed on the left nares. The vocal cord was normal in structure and function. Tip of the scope was passed beyond the vocal cord, trachea was normal. Slight mucosal edema was seen bilaterally, in the left upper lobe, lingular lobe and left lower lobe inspected. Patient noted to have a slight drop in oxygen saturation. Tip of the scope was passed in the right side, right upper lobe, middle lobe and lower lobe inspected. No endobronchial mass or lesion was seen, slight mucosal edema, erythema was seen on the right upper lobe, which was 80 meters and easy to bleed. Tip of the scope was ( ) in the right upper lobe. BAL was performed from the apical segment and apical posterior segment. Patient tolerated BAL well except transient desaturation. Of note, that mucosa was very inflamed and easy to bleed on touch. Patient tolerated the procedure well besides desaturation. The scope was withdrawn. SATs came up. Patient is now being transferred to the recovery area, followed by going back to her medical unit and floor.
--- NOTE | 2016-09-25 10:14 | PN ---
DATE OF SERVICE: 09/25/2016 Ms. Jenni Hercules is seen, evaluated, and examined. Still has ongoing cough, shortness of breath. Cough is better, but it is dry and nonproductive though. Fever pattern and chills slightly better too, but still gets short of breath on minimal activity and exertion and ongoing dry cough is present. Her chest x-ray, CT scan results and reports are reviewed with the patient at length. Her last set of vitals include blood pressure is 78/42, respiratory rate is 18, pulse 79, temperature is 98, saturation of 93% on 2 L oxygen. HEENT EXAMINATION: Otherwise unremarkable. Oral mucosa is moist. NECK: Supple neck veins are prominent. No JVD is present, no bruits. HEART: Regular rate and rhythm. S1 and S2 audible. Abdomen is soft. No rebound or rigidity. EXTREMITIES: +1 peripheral pulses. NEUROLOGICAL EXAMINATION: Awake and alert. LUNG EXAMINATION: Poor air entry bilaterally. The labs are reviewed. White cell count is down to 14,000, hemoglobin and hematocrit 9.9 and 30, platelet count of 233,000. Sodium 137, potassium 4.7. BUN and creatinine 20 and 0.99. LFTs are within normal limits. The culture results and report, blood culture no growth so far, urine culture also no growth so far. Current medications are reviewed which include Tylenol with Codeine 3 times a day, nebulizer with albuterol 4 times a day, aspirin 81 mg daily, Lipitor 80 mg daily, Zithromax 500 mg p.o. daily, Symbicort 2 puffs 2 times a day, Rocephin 1 gm daily. Also on clindamycin 900 mg q.8, Plavix 75 mg daily, Flexeril 10 mg daily, Lovenox 40 mg daily, sliding scale insulin, melatonin. Also on Solu-Medrol 40 q.8 hourly, metoprolol 50 mg, multivitamin, Zofran, senna and Diovan 80 mg daily. Patient is also Spiriva once daily. IMPRESSION: 1. Right upper lobe pneumonia. 2. Right upper lobe cavitary lesion, appears to be chronic in nature. 3. History of right upper lobe lung cancer, status post radiation therapy. 4. Severe chronic obstructive pulmonary disease, emphysema with end-stage lung disease. 5. Hypertension, hypertensive cardiovascular disease. 6. History of coronary artery disease, being on Plavix. Plan and recommendation is to continue broad-spectrum antibiotics for now, Clinda, Rocephin and Zithromax with breathing treatments. Hopefully will lower down the Solu-Medrol to p.o. in the next 24 hours. Patient is being scheduled for bronchoscopy procedure, has been explained to the patient at length. Given that patient has Plavix, will not biopsy, but will do the lavage to rule any pneumonia. 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
[2016-09-25] MEDS: AZITHROMYCIN 500 MG in SODIUM CHLORIDE 0.9% 250 ML IVPB SCH (10:27)
[2016-09-25 11:14] LABS: Glucose,Whole Blood 245 mg/dL (75-99)
[2016-09-25] MEDS: ENOXAPARIN 40 MG/0.4 ML SYRINGE SQ SCH (11:17)
[2016-09-25] MEDS: MULTIVITAMINS, THERA 1 EACH TAB PO SCH (11:25)
[2016-09-25] MEDS: CLOPIDOGREL 75 MG TAB PO SCH (11:25)
[2016-09-25] MEDS: CILOSTAZOL 100 MG TAB PO SCH ×2 (11:26→21:17)
[2016-09-25] MEDS: ASPIRIN 81 MG CHEW PO SCH (11:26)
--- NOTE | 2016-09-25 14:12 | P.PN ---
Subjective 76-year-old female is admitted to the hospital with difficulty breathing and fevers. Patient was noted to have right upper lobe consolidation with air fluid levels. Patient was started on Rocephin and Zithromax with some concern for aspiration clindamycin was also initiated. Patient does have a history of right upper lobe lung mass status post up radiation therapy apparently. Today patient states that she is feeling better denies having significant cough no fevers chills nausea vomiting. Patient underwent a bronchoscopy status post BAL no endobronchial lesion was noted according to the operating report Denies having diarrhea urinary urgency or frequency. Objective - Vital Signs Vital signs: Vital Signs Temp 97.4 F L 09/25/16 07:00 Pulse 80 09/25/16 12:08 Resp 18 09/25/16 07:00 BP 112/59 09/25/16 08:06 Pulse Ox 93 L 09/25/16 08:09 Intake & Output 09/24/16 09/25/16 09/25/16 18:59 06:59 18:59 Intake Total 600 100 Balance 600 100 Weight 53.524 kg Intake: IV 100 Intake, IV Titration 350 Amount Clindamycin 900 mg In 100 Dextrose 5% in Water 50 ml @ 100 mls/hr IVPB Q8H LETICIA Rx#:[id number] Potassium Chloride 20 meq 200 Lidocaine 2% Inj 20 mg In Sodium Chloride 0.9% 100 ml @ 55.5 mls/hr IVPB Q2HR LETICIA Rx#:[id number] cefTRIAXone 1,000 mg In 50 Sodium Chloride 0.9% 50 ml @ 100 mls/hr IVPB Q24HR LETICIA Rx#:[id number] Oral 250 0 Other: Voiding Method Toilet Toilet # Voids 2 1 1 # Emeses 4 - Exam Physical exam Gen. appearance oriented 3 in no distress Neck is supple no JVD Lungs diminished breath sounds no wheezing rhonchi or crackles appreciated today Heart S1-S2 heard regular rate and rhythm no murmurs appreciated Abdomen is soft nontender no organomegaly bowel sounds are intact Neurologically cranial nerves II-12 grossly intact no focal motor or sensory deficits noted Skin no abnormalities appreciated - Labs CBC & Chem 7: 09/25/16 08:19 09/25/16 08:19 Labs: Abnormal Lab Results - Last 24 Hours (Table) 09/24/16 09/24/16 09/24/16 Range/Units 17:19 20:01 20:46 WBC (3.8-10.6) k/uL RBC (3.80-5.40) m/uL Hgb (11.4-16.0) gm/dL Hct (34.0-46.0) % Neutrophils # (1.3-7.7) k/uL Lymphocytes # (1.0-4.8) k/uL Sodium 131 L (137-145) mmol/L Potassium 3.4 L (3.5-5.1) mmol/L Chloride 96 L (98-107) mmol/L BUN (7-17) mg/dL Glucose 230 H (74-99) mg/dL POC Glucose (mg/dL) 158 H 247 H (75-99) mg/dL Total Protein (6.3-8.2) g/dL Albumin (3.5-5.0) g/dL 09/25/16 09/25/16 09/25/16 Range/Units 07:02 08:19 08:19 WBC 14.8 H (3.8-10.6) k/uL RBC 3.24 L (3.80-5.40) m/uL Hgb 9.9 L (11.4-16.0) gm/dL Hct 30.2 L (34.0-46.0) % Neutrophils # 13.7 H (1.3-7.7) k/uL Lymphocytes # 0.6 L (1.0-4.8) k/uL Sodium (137-145) mmol/L Potassium (3.5-5.1) mmol/L Chloride (98-107) mmol/L BUN 20 H (7-17) mg/dL Glucose 205 H (74-99) mg/dL POC Glucose (mg/dL) 224 H (75-99) mg/dL Total Protein 6.1 L (6.3-8.2) g/dL Albumin 3.2 L (3.5-5.0) g/dL 09/25/16 Range/Units 11:08 WBC (3.8-10.6) k/uL RBC (3.80-5.40) m/uL Hgb (11.4-16.0) gm/dL Hct (34.0-46.0) % Neutrophils # (1.3-7.7) k/uL Lymphocytes # (1.0-4.8) k/uL Sodium (137-145) mmol/L Potassium (3.5-5.1) mmol/L Chloride (98-107) mmol/L BUN (7-17) mg/dL Glucose (74-99) mg/dL POC Glucose (mg/dL) 245 H (75-99) mg/dL Total Protein (6.3-8.2) g/dL Albumin (3.5-5.0) g/dL Assessment and Plan Plan: Sepsis secondary to a right upper lobe pneumonia that is community acquired in nature #2 history of fall lung cancer #3 acute on chronic hypoxic respiratory failure secondary to COPD #4 chronic tobacco use recently quit smoking #5 history of hypertension #6 history of CAD #7 history of PAD #8 dyslipidemia Plan De-escalate from clindamycin continue current treatment plan with the Rocephin and Zithromax continue breathing treatments and steroids. Patient appears to be improved await the initial bronchoscopy derived BAL smears Patient appears to be stable we'll likely discharge the patient in the next 24- 48 hours. DVT prophylaxis.
[2016-09-25] MEDS: HYDROcodone/APAP 10-325MG 1 EACH TAB PO PRN (16:25)
[2016-09-25 16:42] LABS: Glucose,Whole Blood 205 mg/dL (75-99)
[2016-09-25 21:06] LABS: Glucose,Whole Blood 332 mg/dL (75-99)
[2016-09-25] MEDS: MELATONIN 5 MG TABLET PO SCH (21:16)
[2016-09-25] MEDS: GABAPENTIN 300 MG CAP PO SCH (21:16)
[2016-09-25] MEDS: ATORVASTATIN 80 MG TAB PO SCH (21:17)
[2016-09-26] MEDS: HYDROcodone/APAP 10-325MG 1 EACH TAB PO PRN (00:31)
[2016-09-26] MEDS: methylPREDNISolone SOD SUCCI 40 MG/ML 1 ML VIAL IV SCH ×3 (00:31→15:49)
[2016-09-26 06:52] LABS: Glucose,Whole Blood 203 mg/dL (75-99)
[2016-09-26] MEDS: INSULIN LISPRO (humaLOG) 300 UNIT/3 ML VIAL SQ SCH ×4 (07:55→21:36)
[2016-09-26] MEDS: PANTOPRAZOLE 40 MG TABLET PO SCH (07:55)
[2016-09-26] MEDS: CILOSTAZOL 100 MG TAB PO SCH (07:56)
[2016-09-26] MEDS: CLOPIDOGREL 75 MG TAB PO SCH (07:56)
[2016-09-26] MEDS: ASPIRIN 81 MG CHEW PO SCH (07:56)
[2016-09-26] MEDS: AZITHROMYCIN 500 MG TAB PO SCH (07:56)
[2016-09-26] MEDS: VALSARTAN 80 MG TAB PO SCH (07:57)
[2016-09-26] MEDS: METOPROLOL TARTRATE 50 MG TAB PO SCH (07:57)
[2016-09-26] MEDS: NYSTATIN 100,000 UNIT/ML SUSP 500,000 UNIT/5 ML CUP PO SCH ×3 (07:57→19:14)
--- NOTE | 2016-09-26 08:24 | XR ---
EXAMINATION TYPE: XR chest 1V portable DATE OF EXAM: 09/26/2016 7:33 AM HISTORY: STEPHANIE. REFERENCE: Previous study dated 09/24/2016. FINDINGS: The patient's right upper lobe pneumonia persists but has partially cleared. There has deve loped a small right effusion and a smaller left effusion. The heart is not enlarged IMPRESSION: 1. IMPROVING RIGHT UPPER LOBE PNEUMONIA. FOLLOW-UP TO RESOLUTION IS SUGGESTED. 2. SMALL, BILATERAL EFFUSIONS.
[2016-09-26] MEDS: ALBUTEROL NEBULIZED 2.5 MG/3 ML INHALATION SCH ×4 (08:46→19:20)
[2016-09-26] MEDS: TIOTROPIUM 18 MCG/PUFF INHALER INHALATION SCH (08:47)
[2016-09-26] MEDS: SYMBICORT 80-4.5 MCG INHALER INHALATION SCH ×2 (08:47→19:26)
[2016-09-26 09:23] LABS: Basophils % (A) 0 %; CH 29.5; CHCM 30.9; Eosinophils % (A) 0 %; HCT 29.5 % (34.0-46.0); HDW 2.32; HGB 9.2 gm/dL (11.4-16.0); Hypochromasia Slight; Luc # (Auto) 0.14; Luc % (Auto) 1; Lymphocytes # (A) 0.8 k/uL (1.0-4.8); Lymphocytes % (A) 5 %; MCH 29.9 pg (25.0-35.0); MCHC 31.2 g/dL (31.0-37.0); MCV 95.9 fL (80.0-100.0); Mean Platelet Volume 7.7; Monocytes # (A) 0.6 k/uL (0-1.0); Monocytes % (A) 4 %; Neutrophils % (A) 90 %; RBC 3.08 m/uL (3.80-5.40); RDW 13.8 % (11.5-15.5); WBC 15.5 k/uL (3.8-10.6); WBC (Perox) 16.13
[2016-09-26 09:46] LABS: ALT 30 U/L (9-52); AST 34 U/L (14-36); Alkaline Phosphatase 84 U/L (38-126); Anion Gap 7 mmol/L; Blood Urea Nitrogen 26 mg/dL (7-17); Calcium 8.9 mg/dL (8.4-10.2); Carbon Dioxide 27 mmol/L (22-30); Chloride 104 mmol/L (98-107); Glucose 185 mg/dL (74-99); Non-African American GFR(MDRD) >60 (>60 ml/min/1.73 sqM); Potassium 5.7 mmol/L (3.5-5.1); Sodium 138 mmol/L (137-145); Total Bilirubin 0.3 mg/dL (0.2-1.3); Total Protein 5.9 g/dL (6.3-8.2)
[2016-09-26] MEDS ORDERED: CEFUROXIME 250 MG TAB PO SCH (10:00)
[2016-09-26 11:43] LABS: Glucose,Whole Blood 140 mg/dL (75-99)
[2016-09-26] MEDS: MULTIVITAMINS, THERA 1 EACH TAB PO SCH (12:22)
[2016-09-26] MEDS: SENNOSIDES 8.6 MG TAB PO PRN (12:58)
[2016-09-26] MEDS ORDERED: SENNOSIDES-DOCUSATE SODIUM 1 EACH TAB PO STA (13:00)
[2016-09-26] MEDS ORDERED: BISACODYL 10 MG SUPP RECTAL PRN (13:02)
--- NOTE | 2016-09-26 13:59 | P.PN ---
Subjective Physical 76-year-old female patient who is being evaluated and examined today on the fourth floor. Patient came into the emergency room for generalized weakness over the last few days as well as decreased appetite and shortness of breath with cough that is productive with green sputum. She was also noted to have a temperature 101.1 and was tachycardic. A chest x-ray was performed and demonstrated a right upper lobe pneumonia. Patient was given IV fluids along with other medications and her heart rate and fever both improved. The patient does have a history of lung carcinoma with status post radiation for 5 years. The patient and the family were both told that she was in remission in 2013 after a PET scan. Patient does have a history of smoking however she stated she stopped smoking a few months ago. A CT of the chest was obtained and reveals mild emphysematous change with cavitary masslike lesions to the right upper lobe favoring focal infectious process or cavitary pneumonia, recurrent neoplasia some is not excluded but felt less likely. Upon examination the patient is resting in bed, she is afebrile. Her oxygen demands have increased from 2 L to 3 L in the last 24 hours. She feels her breathing worse today. Patient hasn't had a bowel movement in at least 5 days and feels constipated. She continues to have a cough which is productive with yellow sputum. Patient underwent a bronchoscopy yesterday. Objective - Vital Signs Vital signs: Vital Signs Temp 97.4 F L 09/26/16 07:00 Pulse 80 09/26/16 12:08 Resp 16 09/26/16 07:00 BP 129/70 09/26/16 07:00 Pulse Ox 92 L 09/26/16 07:00 Intake & Output 09/25/16 09/26/16 09/26/16 18:59 06:59 18:59 Intake Total 100 440 Balance 100 440 Intake: IV 100 Intake, IV Titration 200 Amount Clindamycin 900 mg In 100 Dextrose 5% in Water 50 ml @ 100 mls/hr IVPB Q8H [facility] Rx#:[id number] cefTRIAXone 1,000 mg In 100 Sodium Chloride 0.9% 50 ml @ 100 mls/hr IVPB Q24HR [facility] Rx#:[id number] Oral 0 240 Other: Voiding Method Toilet # Voids 2 1 # Bowel Movements 0 - Exam GENERAL EXAM: Alert, active, comfortable in no apparent distress. HEAD: Normocephalic. EYES: Normal reaction of pupils, equal size. NOSE: Clear with pink turbinates. THROAT: No erythema or exudates. NECK: No masses, no JVD. CHEST: No chest wall deformity. LUNGS: Lung sounds diminished. CVS: S1 and S2 normal with no audible mumurs, regular rhythm. ABDOMEN: No hepatosplenomegaly, normal bowel sounds, no guarding or rigidity. EXTREMITIES: No edema noted, pedal pulses palpable. SKIN: No rashes CENTRAL NERVOUS SYSTEM: No focal deficits, tone is normal in all 4 extremities. - Labs CBC & Chem 7: 09/26/16 09:00 09/26/16 09:00 Labs: Abnormal Lab Results - Last 24 Hours (Table) 09/25/16 09/25/16 09/26/16 Range/Units 16:40 20:41 06:44 WBC (3.8-10.6) k/uL RBC (3.80-5.40) m/uL Hgb (11.4-16.0) gm/dL Hct (34.0-46.0) % Neutrophils # (1.3-7.7) k/uL Lymphocytes # (1.0-4.8) k/uL Potassium (3.5-5.1) mmol/L BUN (7-17) mg/dL Glucose (74-99) mg/dL POC Glucose (mg/dL) 205 H 332 H 203 H (75-99) mg/dL Total Protein (6.3-8.2) g/dL Albumin (3.5-5.0) g/dL 09/26/16 09/26/16 09/26/16 Range/Units 09:00 09:00 11:42 WBC 15.5 H (3.8-10.6) k/uL RBC 3.08 L (3.80-5.40) m/uL Hgb 9.2 L (11.4-16.0) gm/dL Hct 29.5 L (34.0-46.0) % Neutrophils # 14.0 H (1.3-7.7) k/uL Lymphocytes # 0.8 L (1.0-4.8) k/uL Potassium 5.7 H (3.5-5.1) mmol/L BUN 26 H (7-17) mg/dL Glucose 185 H (74-99) mg/dL POC Glucose (mg/dL) 140 H (75-99) mg/dL Total Protein 5.9 L (6.3-8.2) g/dL Albumin 3.1 L (3.5-5.0) g/dL Microbiology - Last 24 Hours (Table) 09/25/16 09:28 Gram Stain - Preliminary Bronchial Washings - Right Bronchial Washings Culture - Preliminary 09/25/16 09:28 Acid Fast Bacilli Culture - Preliminary Bronchial Washings - Right 09/25/16 09:28 Fungal Culture - Preliminary Bronchial Washings - Right Assessment and Plan Plan: Assessment Sepsis secondary to community-acquired pneumonia in the right upper lobe acute on chronic hypoxic respiratory failure chronic obstructive pulmonary disease coronary artery disease Peripheral arterial disease Dyslipidemia History of lung cancer Peripheral neuropathy Hypertension Plan Medications have been reviewed and will be continued as ordered. We will continue with antibiotics in the form of Rocephin. IV steroids. Status post bronchoscopy, results pending. We will initiate and encourage incentive spirometer. Continue with supplemental oxygen, nebulizer treatments, pulmonary hygiene and supportive care. We will adjust her Senokot and also add suppository when necessary for constipation. We will continue to monitor labs/ results and adjust treatment as necessary. I performed an examination of the patient and discussed their management with the nurse practitioner. I have reviewed the nurse practitioner's note and agree with the documented findings and plan of care.
[2016-09-26] MEDS ORDERED: FUROSEMIDE 10 MG/ML 4 ML VIAL IV STA ×2 (15:37→17:58)
[2016-09-26] MEDS ORDERED: ALPRAZolam 0.25 MG TAB PO PRN (16:19)
--- NOTE | 2016-09-26 16:47 | P.PN ---
Subjective 76-year-old female is admitted to the hospital with difficulty breathing and fevers. Patient was noted to have right upper lobe consolidation with air fluid levels. Patient was started on Rocephin and Zithromax with some concern for aspiration clindamycin was also initiated. Patient does have a history of right upper lobe lung mass status post up radiation therapy apparently. Today patient states that she is feeling better denies having significant cough no fevers chills nausea vomiting. Patient underwent a bronchoscopy status post BAL no endobronchial lesion was noted according to the operating report Denies having diarrhea urinary urgency or frequency. 09/26/2016 No new overnight events States that her breathing is worsened today. Denies having a productive cough. No fevers chills nausea vomiting or diarrhea reported. Objective - Vital Signs Vital signs: Vital Signs Temp 97.1 F L 09/26/16 14:57 Pulse 88 09/26/16 15:34 Resp 18 09/26/16 14:57 BP 164/82 09/26/16 14:57 Pulse Ox 98 09/26/16 14:57 Intake & Output 09/25/16 09/26/16 09/26/16 18:59 06:59 18:59 Intake Total 100 440 Balance 100 440 Intake: IV 100 Intake, IV Titration 200 Amount Clindamycin 900 mg In 100 Dextrose 5% in Water 50 ml @ 100 mls/hr IVPB Q8H [facility] Rx#:[id number] cefTRIAXone 1,000 mg In 100 Sodium Chloride 0.9% 50 ml @ 100 mls/hr IVPB Q24HR [facility] Rx#:[id number] Oral 0 240 Other: Voiding Method Toilet # Voids 2 1 1 # Bowel Movements 0 0 - Exam Physical exam Gen. appearance oriented 3 in no distress Neck is supple no JVD Lungs crackles appreciated at the bases Heart S1-S2 heard regular rate and rhythm no murmurs appreciated Abdomen is soft nontender no organomegaly bowel sounds are intact Neurologically cranial nerves II-12 grossly intact no focal motor or sensory deficits noted Skin no abnormalities appreciated - Labs CBC & Chem 7: 09/26/16 09:00 09/26/16 09:00 Labs: Abnormal Lab Results - Last 24 Hours (Table) 09/25/16 09/25/16 09/26/16 Range/Units 09:28 20:41 06:44 WBC (3.8-10.6) k/uL RBC (3.80-5.40) m/uL Hgb (11.4-16.0) gm/dL Hct (34.0-46.0) % Neutrophils # (1.3-7.7) k/uL Lymphocytes # (1.0-4.8) k/uL Potassium (3.5-5.1) mmol/L BUN (7-17) mg/dL Glucose (74-99) mg/dL POC Glucose (mg/dL) 332 H 203 H (75-99) mg/dL Total Protein (6.3-8.2) g/dL Albumin (3.5-5.0) g/dL Viral Test See Below H 09/26/16 09/26/16 09/26/16 Range/Units 09:00 09:00 11:42 WBC 15.5 H (3.8-10.6) k/uL RBC 3.08 L (3.80-5.40) m/uL Hgb 9.2 L (11.4-16.0) gm/dL Hct 29.5 L (34.0-46.0) % Neutrophils # 14.0 H (1.3-7.7) k/uL Lymphocytes # 0.8 L (1.0-4.8) k/uL Potassium 5.7 H (3.5-5.1) mmol/L BUN 26 H (7-17) mg/dL Glucose 185 H (74-99) mg/dL POC Glucose (mg/dL) 140 H (75-99) mg/dL Total Protein 5.9 L (6.3-8.2) g/dL Albumin 3.1 L (3.5-5.0) g/dL Viral Test Microbiology - Last 24 Hours (Table) 09/25/16 09:28 Gram Stain - Preliminary Bronchial Washings - Right Bronchial Washings Culture - Preliminary 09/25/16 09:28 Acid Fast Bacilli Culture - Preliminary Bronchial Washings - Right 09/25/16 09:28 Fungal Culture - Preliminary Bronchial Washings - Right Assessment and Plan Plan: Sepsis secondary to a right upper lobe pneumonia that is community acquired in nature #2 history of lung CA on the left lower lobe according to Dr. Guillaume #3 acute on chronic hypoxic respiratory failure secondary to COPD #4 chronic tobacco use recently quit smoking #5 history of hypertension #6 history of CAD #7 history of PAD #8 dyslipidemia Plan Rocephin and Zithromax. We'll DC IV fluids will give the patient a dose of Lasix IV 40 mg. Continue with reading treatments will start Xanax 0.25 mg every 8 hours there appears to be some underlying anxiety as well. Encourage activity repeat chest x-ray in the a.m. Continue breathing treatments continue steroid therapy will likely discharge the patient next 24- 48 hours.
[2016-09-26 16:56] LABS: Glucose,Whole Blood 210 mg/dL (75-99)
[2016-09-26 17:32] LABS: Glucose,Whole Blood 209 mg/dL (75-99)
[2016-09-26] MEDS ORDERED: ALBUTEROL NEBULIZED 2.5 MG/3 ML INHALATION PRN (17:33)
[2016-09-26] MEDS ORDERED: LORazepam 2 MG/ML SYRINGE ONE (18:35)
[2016-09-26] MEDS ORDERED: LORazepam 2 MG/ML SYRINGE IV STA (18:40)
[2016-09-26 19:28] LABS: Appearance,Urine Clear (Clear); Bilirubin,Urine Negative (Negative); Glucose,Urine (UA) Negative (Negative); Ketones,Urine Negative (Negative); Leukocyte Esterase,Urine Negative (Negative); Nitrite,Urine Negative (Negative); Protein,Urine Negative (Negative); Specific Gravity,Urine 1.005 (1.001-1.035); UA Billing (MACRO vs. MICRO) CHEM; Urobilinogen,Urine <2.0 mg/dL (<2.0)
--- NOTE | 2016-09-26 19:32 | XR ---
EXAMINATION TYPE: XR chest 1V DATE OF EXAM: 09/26/2016 6:53 PM COMPARISON: Prior chest x-ray September 2016 at earlier time HISTORY: Shortness of breath TECHNIQUE: Single frontal view of the chest is obtained. FINDINGS: There is interval increase in bilateral airspace disease. No pneumothorax or sizable pleur al effusion. There are overlying cardiac leads. Patient is rotated, heart may be enlarged. Surgical c lips are present in the right upper quadrant. IMPRESSION: Correlate for congestive heart failure, pulmonary edema, pneumonia. Follow-up is recomme nded.
[2016-09-26 20:26] LABS: Glucose,Whole Blood 176 mg/dL (75-99)
[2016-09-26] MEDS ORDERED: LORazepam 2 MG/ML SYRINGE IV PRN ×2 (21:30)
[2016-09-26] MEDS: FUROSEMIDE 10 MG/ML 4 ML VIAL IV SCH (21:34)
[2016-09-26] MEDS: methylPREDNISolone SOD SUCCI 125 MG/2 ML VIAL IV SCH (21:35)
[2016-09-26 22:56] LABS: ABG PH 7.15 (7.35-7.45)
[2016-09-26 22:57] LABS: ABG Base Excess -4.2 mmol/L; ABG HCO3 25 mmol/L (21-25); ABG PCO2 75 mmHg (35-45); ABG PO2 63 mmHg (83-108)
[2016-09-26 23:21] LABS: ABG Base Excess 0.7 mmol/L; ABG HCO3 26 mmol/L (21-25); ABG PCO2 46 mmHg (35-45); ABG PH 7.37 (7.35-7.45); ABG PO2 81 mmHg (83-108)
[2016-09-27] MEDS: methylPREDNISolone SOD SUCCI 125 MG/2 ML VIAL IV SCH ×5 (01:14→23:42)
[2016-09-27] MEDS: ATORVASTATIN 80 MG TAB PO SCH ×2 (01:20→20:44)
[2016-09-27] MEDS: MELATONIN 5 MG TABLET PO SCH ×2 (01:20→20:45)
[2016-09-27] MEDS: GABAPENTIN 300 MG CAP PO SCH ×2 (01:20→20:44)
[2016-09-27] MEDS: CILOSTAZOL 100 MG TAB PO SCH ×3 (01:20→20:44)
[2016-09-27] MEDS: METOPROLOL TARTRATE 50 MG TAB PO SCH ×4 (01:21→22:24)
[2016-09-27] MEDS: NYSTATIN 100,000 UNIT/ML SUSP 500,000 UNIT/5 ML CUP PO SCH ×6 (01:21→22:24)
[2016-09-27 04:39] LABS: Basophils % (A) 0 %; CH 29.8; CHCM 31.6; Eosinophils # (A) 0.1 k/uL (0-0.7); Eosinophils % (A) 0 %; HCT 35.8 % (34.0-46.0); HDW 2.44; HGB 11.7 gm/dL (11.4-16.0); Luc % (Auto) 1; Lymphocytes # (A) 0.7 k/uL (1.0-4.8); Lymphocytes % (A) 5 %; MCH 30.9 pg (25.0-35.0); MCHC 32.7 g/dL (31.0-37.0); MCV 94.5 fL (80.0-100.0); Mean Platelet Volume 7.5; Monocytes # (A) 0.6 k/uL (0-1.0); Monocytes % (A) 4 %; Neutrophils # (A) 13.7 k/uL (1.3-7.7); Neutrophils % (A) 90 %; RBC 3.78 m/uL (3.80-5.40); RDW 13.7 % (11.5-15.5); WBC 15.2 k/uL (3.8-10.6); WBC (Perox) 14.48
[2016-09-27 05:12] LABS: ALT 55 U/L (9-52); AST 60 U/L (14-36); Alkaline Phosphatase 80 U/L (38-126); Anion Gap 14 mmol/L; Blood Urea Nitrogen 32 mg/dL (7-17); Calcium 9.1 mg/dL (8.4-10.2); Carbon Dioxide 24 mmol/L (22-30); Chloride 98 mmol/L (98-107); Glucose 252 mg/dL (74-99); Magnesium 1.8 mg/dL (1.6-2.3); Non-African American GFR(MDRD) >60 (>60 ml/min/1.73 sqM); Phosphorous 4.2 mg/dL (2.5-4.5); Potassium 5.1 mmol/L (3.5-5.1); Sodium 136 mmol/L (137-145); Total Bilirubin 0.4 mg/dL (0.2-1.3); Total Protein 6.2 g/dL (6.3-8.2)
[2016-09-27] MEDS: MAGNESIUM SULFATE-D5W PMX 1 GM in DEXTROSE/WATER 1 100ML.BAG IVPB SCH ×2 (06:16→09:27)
[2016-09-27] MEDS: LORazepam 2 MG/ML SYRINGE IV PRN ×2 (06:17→14:16)
--- NOTE | 2016-09-27 08:12 | XR ---
EXAMINATION TYPE: XR chest 1V portable DATE OF EXAM: 09/27/2016 6:37 AM COMPARISON: Prior chest x-ray September 2016 HISTORY: Difficulty breathing TECHNIQUE: Single frontal view of the chest is obtained. FINDINGS: There is similar findings to previous exam. Patient is rotated and there are overlying car diac leads. IMPRESSION: Correlate for pneumonia or mass, congestive heart failure, edema, follow-up is recommend ed. Difficult to exclude small effusion
[2016-09-27 08:16] LABS: Glucose,Whole Blood 260 mg/dL (75-99)
[2016-09-27] MEDS: ALBUTEROL NEBULIZED 2.5 MG/3 ML INHALATION SCH ×4 (08:19→19:18)
[2016-09-27] MEDS: TIOTROPIUM 18 MCG/PUFF INHALER INHALATION SCH (08:54)
[2016-09-27] MEDS: SYMBICORT 80-4.5 MCG INHALER INHALATION SCH (08:54)
[2016-09-27] MEDS: PANTOPRAZOLE 40 MG TABLET PO SCH (09:28)
[2016-09-27] MEDS: AZITHROMYCIN 500 MG TAB PO SCH (09:29)
[2016-09-27] MEDS: ASPIRIN 81 MG CHEW PO SCH (09:29)
[2016-09-27] MEDS: ENOXAPARIN 40 MG/0.4 ML SYRINGE SQ SCH (09:30)
[2016-09-27] MEDS: FUROSEMIDE 10 MG/ML 4 ML VIAL IV SCH ×2 (09:30→20:44)
[2016-09-27] MEDS: VALSARTAN 80 MG TAB PO SCH (09:45)
[2016-09-27] MEDS: CLOPIDOGREL 75 MG TAB PO SCH (09:46)
[2016-09-27] MEDS: INSULIN LISPRO (humaLOG) 300 UNIT/3 ML VIAL SQ SCH ×4 (11:21→20:44)
[2016-09-27] MEDS: MULTIVITAMINS, THERA 1 EACH TAB PO SCH (11:33)
[2016-09-27 13:19] LABS: Glucose,Whole Blood 316 mg/dL (75-99)
[2016-09-27] MEDS ORDERED: INSULIN REGULAR 100 UNIT/ML VIAL IV ONE (13:53)
[2016-09-27] MEDS ORDERED: IV VANCOMYCIN PER PHARMACY 1 EACH MISC MISCELLANE PRN (14:30)
[2016-09-27] MEDS: FUROSEMIDE 10 MG/ML 10 ML VIAL IV STA ×2 (14:35→14:52)
[2016-09-27] MEDS: ALPRAZolam 0.5 MG TAB PO SCH (15:12)
[2016-09-27 15:27] LABS: Glucose,Whole Blood 131 mg/dL (75-99)
[2016-09-27] MEDS ORDERED: VANCOMYCIN 1,250 MG in SODIUM CHLORIDE 0.9% 250 ML IVPB ONE (15:30)
--- NOTE | 2016-09-27 16:07 | P.PN ---
Subjective 76-year-old female is admitted to the hospital with difficulty breathing and fevers. Patient was noted to have right upper lobe consolidation with air fluid levels. Patient was started on Rocephin and Zithromax with some concern for aspiration clindamycin was also initiated. Patient does have a history of right upper lobe lung mass status post up radiation therapy apparently. Today patient states that she is feeling better denies having significant cough no fevers chills nausea vomiting. Patient underwent a bronchoscopy status post BAL no endobronchial lesion was noted according to the operating report Denies having diarrhea urinary urgency or frequency. 09/26/2016 No new overnight events States that her breathing is worsened today. Denies having a productive cough. No fevers chills nausea vomiting or diarrhea reported. 09/27/2016 Or night patient was on 3 L of supplemental oxygen thereafter was informed that patient was anxious a dose of Xanax was given. Patient apparently had a rapid response due to significant hypoxia patient was noted to be in fluid overload. Patient was given a dose of Lasix and triaged to the intensive care unit This a.m. patient was on 4 L supplement oxygen after appropriate diuresis Again patient had another dose of her she got worked up heart rate went into the 1:30 to 140s and at this time is currently on significant supplemental oxygen on BiPAP. Patient is slightly lethargic at this time. Objective - Vital Signs Vital signs: Vital Signs Temp 97.9 F 09/27/16 12:00 Pulse 104 H 09/27/16 15:30 Resp 32 H 09/27/16 15:00 BP 178/142 09/27/16 15:00 Pulse Ox 94 L 09/27/16 15:00 Intake & Output 09/26/16 09/27/16 09/27/16 18:59 06:59 18:59 Intake Total 230 280 Output Total 2865 1520 Balance -2635 -1240 Intake: IV 230 130 0.9 230 130 Intake, IV Titration 150 Amount Magnesium Sulfate-D5w Pmx 100 1 gm In Dextrose/Water 1 100ml.bag @ 100 mls/hr IVPB Q1H [facility] Rx#: [id number] cefTRIAXone 1,000 mg In 50 Sodium Chloride 0.9% 50 ml @ 100 mls/hr IVPB Q24HR [facility] Rx#:[id number] Output: Urine 2865 1520 Other: Voiding Method Indwelling Catheter Indwelling Catheter # Voids 1 # Bowel Movements 0 1 - Exam Physical exam Gen. appearance on BiPAP, drowsy Neck is supple no JVD Lungs crackles appreciated at the bases Heart S1-S2 heard regular rate and rhythm no murmurs appreciated Abdomen is soft nontender no organomegaly bowel sounds are intact Neurologically cranial nerves II-12 grossly intact no focal motor or sensory deficits noted Skin no abnormalities appreciated - Labs CBC & Chem 7: 09/27/16 04:25 09/27/16 04:25 Labs: Abnormal Lab Results - Last 24 Hours (Table) 09/26/16 09/26/16 09/26/16 Range/Units 16:54 17:31 18:08 WBC (3.8-10.6) k/uL RBC (3.80-5.40) m/uL Neutrophils # (1.3-7.7) k/uL Lymphocytes # (1.0-4.8) k/uL ABG pH 7.15 L* (7.35-7.45) ABG pCO2 75 H* (35-45) mmHg ABG pO2 63 L (83-108) mmHg ABG HCO3 (21-25) mmol/L ABG O2 Saturation 88.0 L (94-97) % Sodium (137-145) mmol/L BUN (7-17) mg/dL Glucose (74-99) mg/dL POC Glucose (mg/dL) 210 H 209 H (75-99) mg/dL AST (14-36) U/L ALT (9-52) U/L Total Protein (6.3-8.2) g/dL Albumin (3.5-5.0) g/dL 09/26/16 09/26/16 09/27/16 Range/Units 20:23 23:16 04:25 WBC 15.2 H (3.8-10.6) k/uL RBC 3.78 L (3.80-5.40) m/uL Neutrophils # 13.7 H (1.3-7.7) k/uL Lymphocytes # 0.7 L (1.0-4.8) k/uL ABG pH (7.35-7.45) ABG pCO2 46 H (35-45) mmHg ABG pO2 81 L (83-108) mmHg ABG HCO3 26 H (21-25) mmol/L ABG O2 Saturation (94-97) % Sodium (137-145) mmol/L BUN (7-17) mg/dL Glucose (74-99) mg/dL POC Glucose (mg/dL) 176 H (75-99) mg/dL AST (14-36) U/L ALT (9-52) U/L Total Protein (6.3-8.2) g/dL Albumin (3.5-5.0) g/dL 09/27/16 09/27/16 09/27/16 Range/Units 04:25 08:13 13:17 WBC (3.8-10.6) k/uL RBC (3.80-5.40) m/uL Neutrophils # (1.3-7.7) k/uL Lymphocytes # (1.0-4.8) k/uL ABG pH (7.35-7.45) ABG pCO2 (35-45) mmHg ABG pO2 (83-108) mmHg ABG HCO3 (21-25) mmol/L ABG O2 Saturation (94-97) % Sodium 136 L (137-145) mmol/L BUN 32 H (7-17) mg/dL Glucose 252 H (74-99) mg/dL POC Glucose (mg/dL) 260 H 316 H (75-99) mg/dL AST 60 H (14-36) U/L ALT 55 H (9-52) U/L Total Protein 6.2 L (6.3-8.2) g/dL Albumin 3.3 L (3.5-5.0) g/dL 09/27/16 Range/Units 15:26 WBC (3.8-10.6) k/uL RBC (3.80-5.40) m/uL Neutrophils # (1.3-7.7) k/uL Lymphocytes # (1.0-4.8) k/uL ABG pH (7.35-7.45) ABG pCO2 (35-45) mmHg ABG pO2 (83-108) mmHg ABG HCO3 (21-25) mmol/L ABG O2 Saturation (94-97) % Sodium (137-145) mmol/L BUN (7-17) mg/dL Glucose (74-99) mg/dL POC Glucose (mg/dL) 131 H (75-99) mg/dL AST (14-36) U/L ALT (9-52) U/L Total Protein (6.3-8.2) g/dL Albumin (3.5-5.0) g/dL Microbiology - Last 24 Hours (Table) 09/26/16 19:20 Urine Culture - Preliminary Urine,Catheterized 09/25/16 09:28 Gram Stain - Preliminary Bronchial Washings - Right Bronchial Washings Culture - Preliminary Presumptive Staph aureus 09/25/16 09:28 Acid Fast Bacilli Smear - Final Bronchial Washings - Right Acid Fast Bacilli Culture - Preliminary Assessment and Plan Plan: Sepsis secondary to a right upper lobe pneumonia that is community acquired in nature #2 history of lung CA on the left lower lobe according to Dr. Guillaume #3 acute on chronic hypoxic respiratory failure secondary to COPD #4 chronic tobacco use recently quit smoking #5 history of hypertension #6 history of CAD #7 history of PAD #8 dyslipidemia #9 acute hypoxic respiratory failure currently with underlying aspect of congestive heart failure patient appears to go into flash pulmonary edema with tachyphylaxis plan Staph aureus is noted on the BAL washings. Vancomycin is added Continue Lasix 40 mg IV twice a day Echocardiogram to be obtained Increase Lopressor to 50 mg 3 times a day a dose to be given at this time Continue antianxiety medications as well DVT prophylaxis. Continue ICU care
--- NOTE | 2016-09-27 17:05 | PN ---
She was seen on 09/27/2016. She has been hemodynamically stable. She continues to have quite a bit of shortness of breath. She had been transferred to the ICU and had recently had a bronchoscopy and discharge planning had been in progress She has been diuresed and her steroids have been increased. On physical examination, her blood pressure is 125/59, respiratory rate 24, pulse rate of 103, temperature 97.9, O2 sat is 97%. HEENT reveals pupils are equal. Chest reveals bilateral wheeze with prolonged expiration, poor air entry with decreased breath sounds at the bases, occasional basal crackles. Cardiovascular system reveals an S1, S2, short systolic murmurs. Her abdomen is soft. There is no pedal edema. Labs reveal a white count of 15.2, hemoglobin of 11.7. Sodium 136, potassium 5.1, chloride 98, bicarb 24, BUN 32, creatinine 0.9. Blood sugar is 260. Chest x-ray shows bilateral infiltrates in the lower zones with possible pleural effusion and interstitial prominence There continues to be a right upper lobe infiltrate. Bronchoalveolar lavage cultures are growing presumptive staph aureus. IMPRESSION AT THIS TIME: 1. Right upper lobe pneumonia with cavitary lesion most likely secondary to staph aureus. Would need to broaden antibiotic coverage and cover for methicillin-resistant Staphylococcus aureus and will add vancomycin and consult Infectious Disease. At this time, continue her on the antibiotics. 2. Severe chronic obstructive pulmonary disease with acute exacerbation. Continue high-dose bronchodilators and will switch Symbicort to budesonide in the nebulizer for better ( ). Continue albuterol and ipratropium. 3. Component of congestive heart failure and fluid overload. Check her BNP level and echo and give her an extra dose of Lasix. She had started to diurese already and she was on Lasix 40 mg IV push q.12. 4. History of lung cancer, doubt significant recurrence at this time. 5. Change in the upper lobe most likely secondary to an acute pneumonic process. Would await cytology from recent bronchoscopy.
[2016-09-27 17:28] LABS: Glucose,Whole Blood 148 mg/dL (75-99)
[2016-09-27] MEDS: BUDESONIDE 0.5 MG/2 ML NEBU INHALATION SCH (19:18)
[2016-09-27 20:08] LABS: Glucose,Whole Blood 157 mg/dL (75-99)
--- NOTE | 2016-09-27 23:25 | P.CONS ---
History of Present Illness - Reason for Consult Consult date: 09/27/16 - Chief Complaint pneumonia - History of Present Illness 76 -year-old Woman who presents to Hospital with a relatively short history of increasing cough and sputum production that was thick and yellow in nature. The patient's daughter is present and relates that short time ago they were doing well and had traveled to the [facility] with the patient did very well. She also routinely [facility] in [facility]. She did have difficulties while she was in [place] with a bronchial infection. It was treated and she was well enough to travel to the [facility] without illnesses. Patient's also relates that a week prior there were out shopping and doing well. The patient has had a significant change of her status and has developed fever increasing shortness of breath and sputum production. Is brought in the hospital she had ongoing fever and then developed some respiratory failure requiring transient intensive care unit and utilization of BiPAP. She remains evidence of the significant shortness of breath and metabolic encephalopathy but does seem to be comfortable at this point in time. Review of Systems ROS unobtainable: due to mental status Past Medical History Past Medical History: Cancer, COPD, CVA/TIA, Deep Vein Thrombosis (DVT), Fibromyalgia, GERD/Reflux, Hyperlipidemia, Hypertension, Osteoarthritis (OA), Sleep Apnea/CPAP/BIPAP, Vascular Disorder Additional Past Medical History / Comment(s): back pain , lung cancer-radiation opnly, HOME 02 2 LITERS N/C, BLOOD CLOT AFTER SX, CVA LT SIDE AFFECTED SINCE RESOLVED, HIATAL HERNIA. SHINGLES 30 YEARS AGO, DOES'NT USE CPAP MACHINE.in past for short period of time took oral meds for dm-then taken off meds-pt stated not considered diabetic now but occ will check bs., macular degeneration.past broken rt leg and lt wrist History of Any Multi-Drug Resistant Organisms: None Reported Past Surgical History: Cholecystectomy, Heart Catheterization With Stent, Orthopedic Surgery, Tonsillectomy Additional Past Surgical History / Comment(s): rt leg repaired after break-has pins, lt wrist-plate and screws.lung bx, stents tung groins Past Anesthesia/Blood Transfusion Reactions: Family History of Problems w/ Anesthesia Additional Past Anesthesia/Blood Transfusion Reaction / Comm: daughter has diff waking after aa Date of Last Stent Placement:: unk Past Psychological History: Depression Additional Psychological History / Comment(s): [place] and [place]. does'nt drive- either daughters or sister takes her places. has home 02, nebulizer. . Ongoing tobacco smoker stopping just a short time ago. Has a history of lung cancer Smoking Status: Former smoker Past Alcohol Use History: Occasional Additional Past Alcohol Use History / Comment(s): started smopking at age 14( 1955), quit 1976 Past Drug Use History: None Reported - Past Family History Father Family Medical History: Congestive Heart Failure (CHF), COPD Additional Family Medical History / Comment(s): emphysema Mother Family Medical History: Cancer Medications and Allergies Home Medications and Allergies Comment(s): Current Medications Hydrocodone Bitart/Acetaminophen ([place] 10) 1 each PO Q8H PRN PRN Reason: MODERATE Pain Last Admin: 09/26/16 00:31 Dose: 1 each Albuterol Sulfate (Ventolin Nebulized) 2.5 mg INHALATION RT-QID [facility] Last Admin: 09/27/16 19:18 Dose: 2.5 mg Albuterol Sulfate (Ventolin Nebulized) 2.5 mg INHALATION RT-Q2H PRN PRN Reason: Shortness Of Breath Or Wheezing Alprazolam (Xanax) 0.5 mg PO TID [facility] Last Admin: 09/27/16 15:12 Dose: 0.5 mg Aspirin (Aspirin) 81 mg PO DAILY [facility] Last Admin: 09/27/16 09:29 Dose: 81 mg Atorvastatin Calcium (Lipitor) 80 mg PO HS [facility] Last Admin: 09/27/16 20:44 Dose: 80 mg Azithromycin (Zithromax) 500 mg PO DAILY [facility] Last Admin: 09/27/16 09:29 Dose: 500 mg Bisacodyl (Dulcolax) 10 mg RECTAL DAILY PRN PRN Reason: Constipation Budesonide (Pulmicort) 0.5 mg INHALATION RT-BID [facility] Last Admin: 09/27/16 19:18 Dose: 0.5 mg Cilostazol (Pletal) 100 mg PO BID [facility] Last Admin: 09/27/16 20:44 Dose: 100 mg Clopidogrel Bisulfate (Plavix) 75 mg PO DAILY [facility] Last Admin: 09/27/16 09:46 Dose: 75 mg Cyclobenzaprine HCl (Flexeril) 10 mg PO HS PRN PRN Reason: Muscle Spasm Enoxaparin Sodium (Lovenox) 40 mg SQ DAILY [facility] Last Admin: 09/27/16 09:30 Dose: 40 mg Furosemide (Lasix) 40 mg IV Q12HR [facility] Last Admin: 09/27/16 20:44 Dose: 40 mg Gabapentin (Neurontin) 300 mg PO HS [facility] Last Admin: 09/27/16 20:44 Dose: 300 mg Ceftriaxone Sodium 1,000 mg/ (Sodium Chloride) 50 mls @ 100 mls/hr IVPB Q24HR [facility] Last Admin: 09/27/16 11:23 Dose: 100 mls/hr Vancomycin HCl 1,000 mg/ (Sodium Chloride) 250 mls @ 125 mls/hr IVPB Q16H [facility] Insulin Human Lispro (Humalog) 0 unit SQ ACHS [facility] PRN Reason: Protocol Last Admin: 09/27/16 20:44 Dose: 3 unit Lorazepam (Ativan) 0.5 mg IV Q4HR PRN PRN Reason: MODERATE Anxiety Last Admin: 09/27/16 14:40 Dose: 0.5 mg Lorazepam (Ativan) 1 mg IV Q2HR PRN PRN Reason: Severe Anxiety Last Admin: 09/27/16 14:16 Dose: 1 mg Melatonin (Melatonin) 10 mg PO [facility] Last Admin: 09/27/16 20:45 Dose: 10 mg Methylprednisolone Sodium Succinate (Solu-Medrol) 60 mg IV Q6HR [facility] Last Admin: 09/27/16 18:15 Dose: 60 mg Metoprolol Tartrate (Lopressor) 50 mg PO TID [facility] Last Admin: 09/27/16 22:24 Dose: 50 mg Miscellaneous Information (Pneumonia Protocol Utilized) 1 each PO ONCE PRN PRN Reason: Per Protocol Miscellaneous Information (Magnesium Per Protocol) 1 each MISCELLANE DAILY PRN ; Protocol PRN Reason: Per Protocol Miscellaneous Information (Potassium Per Protocol) 1 each MISCELLANE DAILY PRN ; Protocol PRN Reason: Per Protocol Multivitamins (Theragran) 1 each PO DAILY@1200 [facility] Last Admin: 09/27/16 11:33 Dose: 1 each Nystatin (Mycostatin Oral Susp) 500,000 unit PO QID [facility] Last Admin: 09/27/16 22:24 Dose: 500,000 unit Ondansetron HCl (Zofran) 4 mg IVP Q6HR PRN PRN Reason: Nausea And Vomiting Last Admin: 09/24/16 20:42 Dose: 4 mg Pantoprazole Sodium (Protonix) 40 mg PO -BRKFST [facility] Last Admin: 09/27/16 09:28 Dose: 40 mg Senna (Senokot) 8.6 mg PO BID PRN PRN Reason: Constipation Last Admin: 09/26/16 12:58 Dose: 8.6 mg Tiotropium [place] (Spiriva) 1 puff INHALATION RT-DAILY [facility] Last Admin: 09/27/16 08:54 Dose: Not Given Valsartan (Diovan) 80 mg PO DAILY [facility] Last Admin: 09/27/16 09:45 Dose: 80 mg Home Medications Medication Instructions Recorded Confirmed Type Albuterol Nebulized [Ventolin 2.5 mg INHALATION RT-BID 09/23/16 09/23/16 History Nebulized] Albuterol Sulfate [Proventil Hfa] 1 - 2 puff INHALATION RT-Q6H PRN 09/23/1607/11 History Aspirin 81 mg PO DAILY 09/23/16 09/23/16 History Atorvastatin Calcium [Lipitor] 80 mg PO HS 09/23/16 09/23/16 History Cilostazol [Pletal] 100 mg PO BID 09/23/16 09/23/16 History Clopidogrel Bisulfate [Plavix] 75 mg PO DAILY 09/23/16 09/23/16 History Cyclobenzaprine [Flexeril] 10 mg PO HS PRN 09/23/16 09/23/16 History Fluticasone/Salmeterol [Advair 1 inhalation PO RT-BID 09/23/16 09/23/16 History 100-50 Diskus] Gabapentin [Neurontin] 100 mg PO TID 09/23/16 09/23/16 History HYDROcodone/APAP 10-325MG [Comstock 1 tab PO BID 09/23/16 09/23/16 History 10-325] Lmfol Ca/Acetyl/Mb12/Algal Oil 1 tab PO DAILY 09/23/16 09/23/16 History [Cerefolin Nac Caplet] Metoprolol Tartrate [Lopressor] 25 mg PO BID 09/23/16 09/23/16 History Multivitamins, Thera [Multivitamin 1 tab PO DAILY 09/23/16 09/23/16 History (formulary)] Pantoprazole Sodium [Protonix] 40 mg PO DAILY 09/23/16 09/23/16 History Ranitidine HCl [Zantac] 150 mg PO DAILY PRN 09/23/16 09/23/16 History Tiotropium 18 Mcg/Puff [Spiriva] 1 cap INHALATION RT-DAILY 09/23/16 09/23/16 History Valsartan [Diovan] 80 mg PO DAILY 09/23/16 09/23/16 History Vit A,C & E/Lutein/Minerals 1 tab PO DAILY 09/23/16 09/23/16 History [Ocuvite with Lutein Tablet] Allergies Allergy/AdvReac Type Severity Reaction Status Date / Time No Known Allergies Allergy Verified 09/23/16 13:35 Physical Exam Vitals: Vital Signs Temp Pulse Pulse Resp BP Pulse Ox 09/27/16 21:00 93 24 95/49 98 09/27/16 20:00 98 F 89 14 115/66 95 09/27/16 19:34 86 09/27/16 19:21 84 09/27/16 19:00 82 17 116/68 98 09/27/16 18:00 87 14 112/62 93 L 09/27/16 17:00 93 17 86/54 93 L 09/27/16 16:00 97.6 F 97 96 19 95/57 94 L 09/27/16 15:30 104 H 09/27/16 15:21 116 H 09/27/16 15:00 126 H 32 H 178/142 94 L 09/27/16 14:00 99 24 125/59 97 09/27/16 13:00 96 19 128/74 96 09/27/16 12:00 97.9 F 103 H 96 17 128/61 97 09/27/16 11:20 108 H 09/27/16 11:10 108 H 09/27/16 11:00 113 H 19 126/62 94 L 09/27/16 10:00 116 H 29 H 140/65 95 09/27/16 09:04 97 09/27/16 09:00 108 H 27 H 135/62 99 09/27/16 08:40 108 H 09/27/16 08:21 103 H 09/27/16 08:00 98.2 F 98 96 16 146/62 96 09/27/16 07:00 100 18 140/69 97 09/27/16 06:00 104 H 18 121/60 96 09/27/16 05:00 101 H 17 116/63 99 09/27/16 04:00 97.8 F 96 18 114/66 97 09/27/16 03:00 96 16 113/58 98 09/27/16 02:00 94 17 116/62 99 09/27/16 01:00 94 15 111/61 100 09/27/16 00:00 97.7 F 95 18 87/54 97 Intake and Output 09/27/16 09/27/16 09/28/16 14:59 22:59 06:59 Intake Total 260 605 Output Total 1430 1315 Balance -1170 -710 Intake: IV 110 405 0.9 110 155 Vancomycin 1,250 mg In 250 Sodium Chloride 0.9% 250 ml @ 125 mls/hr IVPB ONCE ONE Rx#:[id number] Intake, IV Titration 150 Amount Magnesium Sulfate-D5w Pmx 100 1 gm In Dextrose/Water 1 100ml.bag @ 100 mls/hr IVPB Q1H [facility] Rx#: [id number] cefTRIAXone 1,000 mg In 50 Sodium Chloride 0.9% 50 ml @ 100 mls/hr IVPB Q24HR [facility] Rx#:[id number] Oral 200 Output: Urine 1430 1315 Other: Voiding Method Indwelling Catheter Indwelling Catheter 76-year-old woman who is on BiPAP seems to be operable He has had some recent significant recent sedation HEENT: Anicteric conjunctiva are pink and moist nasal mucosa grossly intact without significant lesions, there is no thrush.dentures Neck: The neck is supple without significant lymphadenopathy or thyromegaly. Lungs: There is symmetrical air entry. Expiratory wheezes are through the lung eason. Basilar crackles. Did not cooperate for egophony. Heart: Regular rate and rhythm with an audible S1-S2, no S3 positive S4 There is no significant murmur click or rub, PMI was nondisplaced. Abdomen: Positive bowel sounds soft and nontender without palpable masses or organomegaly. There was no guarding or rebound. Extremities: the upper extremities reveals evidence of The IV site center without difficulty. Lanoxin his have trace bilateral pedal edema but no ulcerations. Neuro: arousable but sedated was very agitated recently. Results CBC & Chem 7: 09/27/16 04:25 09/27/16 04:25 Labs: Abnormal Lab Results - Last 24 Hours (Table) 09/26/16 09/26/16 09/27/16 Range/Units 18:08 23:16 04:25 WBC 15.2 H (3.8-10.6) k/uL RBC 3.78 L (3.80-5.40) m/uL Neutrophils # 13.7 H (1.3-7.7) k/uL Lymphocytes # 0.7 L (1.0-4.8) k/uL ABG pH 7.15 L* (7.35-7.45) ABG pCO2 75 H* 46 H (35-45) mmHg ABG pO2 63 L 81 L (83-108) mmHg ABG HCO3 26 H (21-25) mmol/L ABG O2 Saturation 88.0 L (94-97) % Sodium (137-145) mmol/L BUN (7-17) mg/dL Glucose (74-99) mg/dL POC Glucose (mg/dL) (75-99) mg/dL AST (14-36) U/L ALT (9-52) U/L Total Protein (6.3-8.2) g/dL Albumin (3.5-5.0) g/dL 09/27/16 09/27/16 09/27/16 Range/Units 04:25 08:13 13:17 WBC (3.8-10.6) k/uL RBC (3.80-5.40) m/uL Neutrophils # (1.3-7.7) k/uL Lymphocytes # (1.0-4.8) k/uL ABG pH (7.35-7.45) ABG pCO2 (35-45) mmHg ABG pO2 (83-108) mmHg ABG HCO3 (21-25) mmol/L ABG O2 Saturation (94-97) % Sodium 136 L (137-145) mmol/L BUN 32 H (7-17) mg/dL Glucose 252 H (74-99) mg/dL POC Glucose (mg/dL) 260 H 316 H (75-99) mg/dL AST 60 H (14-36) U/L ALT 55 H (9-52) U/L Total Protein 6.2 L (6.3-8.2) g/dL Albumin 3.3 L (3.5-5.0) g/dL 09/27/16 09/27/16 09/27/16 Range/Units 15:26 17:27 20:04 WBC (3.8-10.6) k/uL RBC (3.80-5.40) m/uL Neutrophils # (1.3-7.7) k/uL Lymphocytes # (1.0-4.8) k/uL ABG pH (7.35-7.45) ABG pCO2 (35-45) mmHg ABG pO2 (83-108) mmHg ABG HCO3 (21-25) mmol/L ABG O2 Saturation (94-97) % Sodium (137-145) mmol/L BUN (7-17) mg/dL Glucose (74-99) mg/dL POC Glucose (mg/dL) 131 H 148 H 157 H (75-99) mg/dL AST (14-36) U/L ALT (9-52) U/L Total Protein (6.3-8.2) g/dL Albumin (3.5-5.0) g/dL Microbiology - Last 24 Hours (Table) 09/26/16 19:20 Urine Culture - Preliminary Urine,Catheterized 09/25/16 09:28 Gram Stain - Preliminary Bronchial Washings - Right Bronchial Washings Culture - Preliminary Presumptive Staph aureus 09/25/16 09:28 Acid Fast Bacilli Smear - Final Bronchial Washings - Right Acid Fast Bacilli Culture - Preliminary Laboratory Results WBC 15.2 k/uL (3.8-10.6) H 09/27/16 04:25 RBC 3.78 m/uL (3.80-5.40) L 09/27/16 04:25 Hgb 11.7 gm/dL (11.4-16.0) 09/27/16 04:25 Hct 35.8 % (34.0-46.0) 09/27/16 04:25 MCV 94.5 fL (80.0-100.0) 09/27/16 04:25 MCH 30.9 pg (25.0-35.0) 09/27/16 04:25 MCHC 32.7 g/dL (31.0-37.0) 09/27/16 04:25 RDW 13.7 % (11.5-15.5) 09/27/16 04:25 Plt Count 253 k/uL (150-450) 09/27/16 04:25 Neutrophils % 90 % 09/27/16 04:25 Lymphocytes % 5 % 09/27/16 04:25 Monocytes % 4 % 09/27/16 04:25 Eosinophils % 0 % 09/27/16 04:25 Basophils % 0 % 09/27/16 04:25 Neutrophils # 13.7 k/uL (1.3-7.7) H 09/27/16 04:25 Lymphocytes # 0.7 k/uL (1.0-4.8) L 09/27/16 04:25 Monocytes # 0.6 k/uL (0-1.0) 09/27/16 04:25 Eosinophils # 0.1 k/uL (0-0.7) 09/27/16 04:25 Basophils # 0.0 k/uL (0-0.2) 09/27/16 04:25 Hypochromasia Slight 09/26/16 09:00 PT 12.2 sec (9.0-12.0) H 09/23/16 14:14 INR 1.2 (<1.1) 09/23/16 14:14 APTT 25.4 sec (22.0-30.0) 09/23/16 14:14 [facility] 09/26/16 23:16 ABG pH 7.37 (7.35-7.45) 09/26/16 23:16 ABG pCO2 46 mmHg (35-45) H 09/26/16 23:16 ABG pO2 81 mmHg (83-108) L 09/26/16 23:16 ABG HCO3 26 mmol/L (21-25) H 09/26/16 23:16 ABG O2 Saturation 96.0 % (94-97) 09/26/16 23:16 ABG Base Excess 0.7 mmol/L 09/26/16 23:16 FiO2 60 % 09/26/16 23:16 Sodium 136 mmol/L (137-145) L 09/27/16 04:25 Potassium 5.1 mmol/L (3.5-5.1) 09/27/16 04:25 Chloride 98 mmol/L (98-107) 09/27/16 04:25 Carbon Dioxide 24 mmol/L (22-30) 09/27/16 04:25 Anion Gap 14 mmol/L 09/27/16 04:25 BUN 32 mg/dL (7-17) H 09/27/16 04:25 Creatinine 0.90 mg/dL (0.52-1.04) 09/27/16 04:25 Est GFR (MDRD) Af Amer >60 (>60 ml/min/1.73 sqM) 09/27/16 04:25 Est GFR (MDRD) Non-Af >60 (>60 ml/min/1.73 sqM) 09/27/16 04:25 Glucose 252 mg/dL (74-99) H 09/27/16 04:25 POC Glucose (mg/dL) 157 mg/dL (75-99) H 09/27/16 20:04 POC Glu Transit Mix Operator Xiao Conley 09/27/16 20:[address] Glu mg/dL 123 mg/dL 09/24/16 08:01 Hemoglobin A1c 5.9 % (4.2-6.1) 09/24/16 08:01 Plasma Lactic Acid Imer 1.3 mmol/L (0.7-2.0) 09/23/16 14:14 Calcium 9.1 mg/dL (8.4-10.2) 09/27/16 04:25 Phosphorus 4.2 mg/dL (2.5-4.5) 09/27/16 04:25 Magnesium 1.8 mg/dL (1.6-2.3) 09/27/16 04:25 Total Bilirubin 0.4 mg/dL (0.2-1.3) 09/27/16 04:25 AST 60 U/L (14-36) H 09/27/16 04:25 ALT 55 U/L (9-52) H 09/27/16 04:25 Alkaline Phosphatase 80 U/L (38-126) 09/27/16 04:25 Total Creatine Kinase 49 U/L (30-135) 09/23/16 14:14 CK-MB (CK-2) 0.8 ng/mL (0.0-2.4) 09/23/16 14:14 CK-MB (CK-2) Rel Index 1.6 09/23/16 14:14 Troponin I <0.012 ng/mL (0.000-0.034) 09/23/16 14:14 NT-Pro-B Natriuret Pep 14409 pg/mL 09/27/16 04:25 Total Protein 6.2 g/dL (6.3-8.2) L 09/27/16 04:25 Albumin 3.3 g/dL (3.5-5.0) L 09/27/16 04:25 Urine Color Light Yellow 09/26/16 19:20 Urine Appearance Clear (Clear) 09/26/16 19:20 Urine pH 5.0 (5.0-8.0) 09/26/16 19:20 Ur Specific Chromo 1.005 (1.001-1.035) 09/26/16 19:20 Urine Protein Negative (Negative) 09/26/16 19:20 Urine Glucose (UA) Negative (Negative) 09/26/16 19:20 Urine Ketones Negative (Negative) 09/26/16 19:20 Urine Blood Negative (Negative) 09/26/16 19:20 Urine Nitrite Negative (Negative) 09/26/16 19:20 Urine Bilirubin Negative (Negative) 09/26/16 19:20 Urine Urobilinogen <2.0 mg/dL (<2.0) 09/26/16 19:20 Ur Leukocyte Esterase Negative (Negative) 09/26/16 19:20 Urine RBC 14 /hpf (0-5) H 09/23/16 14:35 Urine WBC 13 /hpf (0-5) H 09/23/16 14:35 Ur Squamous Epith Cells 2 /hpf (0-4) 09/23/16 14:35 Urine Bacteria Rare /hpf (None) H 09/23/16 14:35 Urine Mucus Rare /hpf (None) H 09/23/16 14:35 Influenza Type A RNA Not Detected (Not Detectd) 09/23/16 13:40 Influenza Type B (PCR) Not Detected (Not Detectd) 09/23/16 13:40 Virus Source See Below 09/25/16 09:28 Viral Test See Below H 09/25/16 09:28 Virus Analysis Interp See Below 09/25/16 09:28 Microbiology 09/23/16 14:14 Blood Blood Culture - Preliminary No Growth after 96 hours 09/26/16 19:20 Urine,Catheterized Urine Culture - Preliminary 09/25/16 09:28 Bronchial Washings - Right Gram Stain - Preliminary 09/25/16 09:28 Bronchial Washings - Right Bronchial Washings Culture - Preliminary Presumptive Staph aureus 09/25/16 09:28 Bronchial Washings - Right Acid Fast Bacilli Smear - Final 09/25/16 09:28 Bronchial Washings - Right Acid Fast Bacilli Culture - Preliminary 09/25/16 09:28 Bronchial Washings - Right Fungal Culture - Preliminary 09/23/16 13:40 Urine,Voided Urine Culture - Final Assessment and Plan (1) Staphylococcus aureus pneumonia Narrative/Plan: 76-year-old woman that has a history of significant underlying COPD that is oxygen dependent is doing relatively well as of late. Was able to travel to the [facility]. Did have a bout of bronchitis when she was at her home in [place]. However now is developed significant pneumonia. With respiratory failure. She's had a bronchoscopy performed. Some purulent secretions were sound and staph aureus but nicely. Vancomycin has been added to current antibiotic therapy. Rocephin will continue his azithromycin was discontinued. She has significant leukocytosis and response to her pneumonia. Altered mental status on the basis of Versed and underlying sepsis from her pneumonia. She's also had difficulty with intermittent pulmonary edema requiring some diuretics and then hypotension was from further fluids adjustment of her medications is being performed and seemed to be bit better this afternoon. She is evidence of lung cancer with history of radiation therapy. However appears that she has an acute pneumonia at this present time with staff and hopefully with treatment will have some further improvement. Status: Acute (2) COPD with acute lower respiratory infection Status: Acute (3) Leukocytosis Status: Acute
[2016-09-28 06:21] LABS: Anion Gap 9 mmol/L; Blood Urea Nitrogen 37 mg/dL (7-17); Calcium 9.3 mg/dL (8.4-10.2); Carbon Dioxide 31 mmol/L (22-30); Chloride 97 mmol/L (98-107); Glucose 244 mg/dL (74-99); Magnesium 2.2 mg/dL (1.6-2.3); Non-African American GFR(MDRD) >60 (>60 ml/min/1.73 sqM); Phosphorous 3.9 mg/dL (2.5-4.5); Potassium 6.1 mmol/L (3.5-5.1); Sodium 137 mmol/L (137-145)
[2016-09-28 06:29] LABS: Basophils # (A) 0.1 k/uL (0-0.2); Basophils % (A) 1 %; CH 30.2; CHCM 33.3; Eosinophils # (A) 0.1 k/uL (0-0.7); Eosinophils % (A) 0 %; HCT 33.8 % (34.0-46.0); HDW 2.39; HGB 11.2 gm/dL (11.4-16.0); Luc # (Auto) 0.17; Luc % (Auto) 1; Lymphocytes # (A) 1.3 k/uL (1.0-4.8); Lymphocytes % (A) 6 %; MCH 30.2 pg (25.0-35.0); MCHC 33.1 g/dL (31.0-37.0); MCV 91.1 fL (80.0-100.0); Mean Platelet Volume 8.5; Monocytes # (A) 0.9 k/uL (0-1.0); Monocytes % (A) 4 %; Neutrophils # (A) 18.9 k/uL (1.3-7.7); Neutrophils % (A) 88 %; RBC 3.72 m/uL (3.80-5.40); RDW 13.9 % (11.5-15.5); WBC 21.4 k/uL (3.8-10.6); WBC (Perox) 21.26
[2016-09-28] MEDS: methylPREDNISolone SOD SUCCI 125 MG/2 ML VIAL IV SCH ×4 (07:16→23:46)
[2016-09-28] MEDS: ALPRAZolam 0.5 MG TAB PO SCH ×4 (07:17→21:02)
--- NOTE | 2016-09-28 07:38 | XR ---
EXAMINATION TYPE: XR chest 1V DATE OF EXAM: 09/28/2016 6:43 AM COMPARISON: 09/27/2016 HISTORY: Difficulty breathing and history lung cancer. TECHNIQUE: Single frontal view of the chest is obtained. FINDINGS: The previously seen right upper lobe and right perihilar airspace disease have improved in the interim. Right upper lobe density represents a cavitary lesion with a thick wall measuring up to 9 mm. Pulmonary vascular congestion has also resolved. Costophrenic angles are blunted relating to t race pleural effusions. Cardiomediastinal silhouette is within normal limits of size. The lungs are h yperaerated compatible with underlying COPD. Osseous structures are intact. IMPRESSION: 1. Decreasing size of the right upper lobe cavitary lesion and improving right perihilar airspace dis ease. 2. Trace pleural effusions. 3. Sequela of COPD.
[2016-09-28] MEDS: VANCOMYCIN 1,000 MG in SODIUM CHLORIDE 0.9% 250 ML IVPB SCH ×2 (07:45→23:46)
[2016-09-28] MEDS: PANTOPRAZOLE 40 MG TABLET PO SCH (07:49)
[2016-09-28] MEDS: NYSTATIN 100,000 UNIT/ML SUSP 500,000 UNIT/5 ML CUP PO SCH ×4 (08:01→21:02)
[2016-09-28] MEDS: CILOSTAZOL 100 MG TAB PO SCH ×2 (08:01→20:18)
[2016-09-28] MEDS: METOPROLOL TARTRATE 50 MG TAB PO SCH ×3 (08:01→21:02)
[2016-09-28] MEDS: VALSARTAN 80 MG TAB PO SCH (08:02)
[2016-09-28] MEDS: AZITHROMYCIN 500 MG TAB PO SCH (08:02)
[2016-09-28] MEDS: ENOXAPARIN 40 MG/0.4 ML SYRINGE SQ SCH (08:02)
[2016-09-28] MEDS: CLOPIDOGREL 75 MG TAB PO SCH (08:02)
[2016-09-28] MEDS: FUROSEMIDE 10 MG/ML 4 ML VIAL IV SCH ×2 (08:03→20:19)
[2016-09-28] MEDS: ASPIRIN 81 MG CHEW PO SCH (08:03)
[2016-09-28] MEDS: BUDESONIDE 0.5 MG/2 ML NEBU INHALATION SCH ×2 (08:04→19:30)
[2016-09-28] MEDS: ALBUTEROL NEBULIZED 2.5 MG/3 ML INHALATION SCH ×4 (08:04→19:30)
[2016-09-28 08:07] LABS: Glucose,Whole Blood 191 mg/dL (75-99)
[2016-09-28] MEDS: INSULIN LISPRO (humaLOG) 300 UNIT/3 ML VIAL SQ SCH ×4 (08:13→20:19)
[2016-09-28] MEDS: LORazepam 2 MG/ML SYRINGE IV PRN (08:53)
[2016-09-28] MEDS: TIOTROPIUM 18 MCG/PUFF INHALER INHALATION SCH (09:24)
[2016-09-28] MEDS ORDERED: DILTIAZEM 125 MG in SODIUM CHLORIDE 0.9% 100 ML IV SCH (10:45)
--- NOTE | 2016-09-28 12:30 | PN ---
DATE OF SERVICE: 09/28/2016 She is sleepy, but arousable. She seems less short of breath overall. On physical examination, her blood pressure is 105/60, respiratory rate 16, pulse 83. Heart rate had been as high as 135 with atrial fibrillation. O2 sat on 2 liters by nasal cannula is 99%. HEENT is unremarkable. Chest reveals fair air entry prolonged expiration, no wheeze today. Cardiovascular system reveals an S1, S2. Abdomen is soft. There is no edema. White count is 21.4, hemoglobin of 11.2. Sodium 137, potassium 6.1, chloride 97, bicarb 31, BUN 37, creatinine of 0.8. Microbiological cultures are growing MRSA in her sputum. IMPRESSION: 1. Methicillin-resistant Staphylococcus aureus right upper lobe pneumonia with cavitation. 2. Previous history of lung cancer, doubt recurrence. 3. Systemic inflammatory response. 4. Sepsis. 5. Acute respiratory failure. 6. Atrial fibrillation with rapid ventricular response. 7. Chronic obstructive pulmonary disease with exacerbation. 8. Elevated BNP level consistent with congestive heart failure and fluid overload. At this point in time from a pulmonary standpoint, continue bronchodilators, aerosolized steroids, GI and DVT prophylaxis, IV steroids. Keep her in negative fluid balance. Continue vancomycin. May be able to narrow her antibiotic coverage and discontinue her Rocephin but will defer to ID who has been consulted to further evaluate this patient. Her prognosis is guarded. Would watch her electrolytes regarding her hyperkalemia.
[2016-09-28] MEDS: MULTIVITAMINS, THERA 1 EACH TAB PO SCH (13:03)
[2016-09-28 13:09] LABS: Glucose,Whole Blood 198 mg/dL (75-99)
--- NOTE | 2016-09-28 14:41 | P.PN ---
Subjective Principal diagnosis: Pneumonia 76 -year-old Woman who presents to Hospital with a relatively short history of increasing cough and sputum production that was thick and yellow in nature. The patient's daughter is present and relates that short time ago they were doing well and had traveled to the [facility] with the patient did very well. She also routinely [facility]. She did have difficulties while she was in [place] with a bronchial infection. It was treated and she was well enough to travel to the [facility] without illnesses. Patient's also relates that a week prior there were out shopping and doing well. The patient has had a significant change of her status and has developed fever increasing shortness of breath and sputum production. Is brought in the hospital she had ongoing fever and then developed some respiratory failure requiring transient intensive care unit and utilization of BiPAP. She remains evidence of the significant shortness of breath and metabolic encephalopathy but does seem to be comfortable at this point in time. She is improved today. Sitting upright. Does not have on BiPAP. Is a bit more awake and alert. Still has confusion. Her daughter is helping with her orientation. Objective - Vital Signs Vital signs: Vital Signs Temp 97.8 F 09/28/16 12:00 Pulse 95 09/28/16 14:27 Resp 17 09/28/16 14:00 BP 87/43 09/28/16 14:00 Pulse Ox 97 09/28/16 14:00 Intake & Output 09/27/16 09/28/16 09/28/16 18:59 06:59 18:59 Intake Total 550 732 420 Output Total 2145 1550 1160 Balance -1595 -818 -740 Weight 53.2 kg Intake: IV 400 295 420 0.9 150 295 110 Diltiazem 125 mg In 10 Sodium Chloride 0.9% 100 ml @ 5 MG/HR 5 mls/hr IV .Q24H [facility] Rx#:[id number] Vancomycin 1,250 mg In 250 250 Sodium Chloride 0.9% 250 ml @ 125 mls/hr IVPB ONCE ONE Rx#:[id number] cefTRIAXone 1,000 mg In 50 Sodium Chloride 0.9% 50 ml @ 100 mls/hr IVPB Q24HR [facility] Rx#:[id number] Intake, IV Titration 150 Amount Magnesium Sulfate-D5w Pmx 100 1 gm In Dextrose/Water 1 100ml.bag @ 100 mls/hr IVPB Q1H [facility] Rx#: [id number] cefTRIAXone 1,000 mg In 50 Sodium Chloride 0.9% 50 ml @ 100 mls/hr IVPB Q24HR [facility] Rx#:[id number] Oral 437 Output: Urine 2145 1550 1160 Other: Voiding Method Indwelling Catheter Indwelling Catheter Indwelling Catheter - Exam 76-year-old woman who is on BiPAP seems to be operable He has had some recent significant recent sedation HEENT: Anicteric conjunctiva are pink and moist nasal mucosa grossly intact without significant lesions, there is no thrush.dentures Neck: The neck is supple without significant lymphadenopathy or thyromegaly. Lungs: There is symmetrical air entry. Expiratory wheezes are through the lung eason. Basilar crackles. Did not cooperate for egophony. Heart: Regular rate and rhythm with an audible S1-S2, no S3 positive S4 There is no significant murmur click or rub, PMI was nondisplaced. Abdomen: Positive bowel sounds soft and nontender without palpable masses or organomegaly. There was no guarding or rebound. Extremities: the upper extremities reveals evidence of The IV site center without difficulty. Does have trace bilateral pedal edema but no ulcerations. Neuro: Wake sitting up in the chair. Continues to have some confusion. The new she was at the [facility]. In that she likes to go to [place] to her other home. - Labs CBC & Chem 7: 09/28/16 04:50 09/28/16 04:50 Labs: Abnormal Lab Results - Last 24 Hours (Table) 09/27/16 09/27/16 09/27/16 Range/Units 15:26 17:27 20:04 WBC (3.8-10.6) k/uL RBC (3.80-5.40) m/uL Hgb (11.4-16.0) gm/dL Hct (34.0-46.0) % Neutrophils # (1.3-7.7) k/uL Potassium (3.5-5.1) mmol/L Chloride (98-107) mmol/L Carbon Dioxide (22-30) mmol/L BUN (7-17) mg/dL Glucose (74-99) mg/dL POC Glucose (mg/dL) 131 H 148 H 157 H (75-99) mg/dL 09/28/16 09/28/16 09/28/16 Range/Units 04:50 04:50 08:05 WBC 21.4 H (3.8-10.6) k/uL RBC 3.72 L (3.80-5.40) m/uL Hgb 11.2 L (11.4-16.0) gm/dL Hct 33.8 L (34.0-46.0) % Neutrophils # 18.9 H (1.3-7.7) k/uL Potassium 6.1 H (3.5-5.1) mmol/L Chloride 97 L (98-107) mmol/L Carbon Dioxide 31 H (22-30) mmol/L BUN 37 H (7-17) mg/dL Glucose 244 H (74-99) mg/dL POC Glucose (mg/dL) 191 H (75-99) mg/dL 09/28/16 Range/Units 13:08 WBC (3.8-10.6) k/uL RBC (3.80-5.40) m/uL Hgb (11.4-16.0) gm/dL Hct (34.0-46.0) % Neutrophils # (1.3-7.7) k/uL Potassium (3.5-5.1) mmol/L Chloride (98-107) mmol/L Carbon Dioxide (22-30) mmol/L BUN (7-17) mg/dL Glucose (74-99) mg/dL POC Glucose (mg/dL) 198 H (75-99) mg/dL Microbiology - Last 24 Hours (Table) 09/26/16 19:20 Urine Culture - Final Urine,Catheterized 09/25/16 09:28 Gram Stain - Final Bronchial Washings - Right Bronchial Washings Culture - Final Methicillin resist S. aureus Laboratory Results WBC 21.4 k/uL (3.8-10.6) H 09/28/16 04:50 RBC 3.72 m/uL (3.80-5.40) L 09/28/16 04:50 Hgb 11.2 gm/dL (11.4-16.0) L 09/28/16 04:50 Hct 33.8 % (34.0-46.0) L 09/28/16 04:50 MCV 91.1 fL (80.0-100.0) 09/28/16 04:50 MCH 30.2 pg (25.0-35.0) 09/28/16 04:50 MCHC 33.1 g/dL (31.0-37.0) 09/28/16 04:50 RDW 13.9 % (11.5-15.5) 09/28/16 04:50 Plt Count 249 k/uL (150-450) 09/28/16 04:50 Neutrophils % 88 % 09/28/16 04:50 Lymphocytes % 6 % 09/28/16 04:50 Monocytes % 4 % 09/28/16 04:50 Eosinophils % 0 % 09/28/16 04:50 Basophils % 1 % 09/28/16 04:50 Neutrophils # 18.9 k/uL (1.3-7.7) H 09/28/16 04:50 Lymphocytes # 1.3 k/uL (1.0-4.8) 09/28/16 04:50 Monocytes # 0.9 k/uL (0-1.0) 09/28/16 04:50 Eosinophils # 0.1 k/uL (0-0.7) 09/28/16 04:50 Basophils # 0.1 k/uL (0-0.2) 09/28/16 04:50 Hypochromasia Slight 09/26/16 09:00 PT 12.2 sec (9.0-12.0) H 09/23/16 14:14 INR 1.2 (<1.1) 09/23/16 14:14 APTT 25.4 sec (22.0-30.0) 09/23/16 14:14 [facility] 09/26/16 23:16 ABG pH 7.37 (7.35-7.45) 09/26/16 23:16 ABG pCO2 46 mmHg (35-45) H 09/26/16 23:16 ABG pO2 81 mmHg (83-108) L 09/26/16 23:16 ABG HCO3 26 mmol/L (21-25) H 09/26/16 23:16 ABG O2 Saturation 96.0 % (94-97) 09/26/16 23:16 ABG Base Excess 0.7 mmol/L 09/26/16 23:16 FiO2 60 % 09/26/16 23:16 Sodium 137 mmol/L (137-145) 09/28/16 04:50 Potassium 6.1 mmol/L (3.5-5.1) H 09/28/16 04:50 Chloride 97 mmol/L (98-107) L 09/28/16 04:50 Carbon Dioxide 31 mmol/L (22-30) H 09/28/16 04:50 Anion Gap 9 mmol/L 09/28/16 04:50 BUN 37 mg/dL (7-17) H 09/28/16 04:50 Creatinine 0.80 mg/dL (0.52-1.04) 09/28/16 04:50 Est GFR (MDRD) Af Amer >60 (>60 ml/min/1.73 sqM) 09/28/16 04:50 Est GFR (MDRD) Non-Af >60 (>60 ml/min/1.73 sqM) 09/28/16 04:50 Glucose 244 mg/dL (74-99) H 09/28/16 04:50 POC Glucose (mg/dL) 198 mg/dL (75-99) H 09/28/16 13:08 POC Glu [employer] ID Michi Clemens 09/28/16 13:[address] Glu mg/dL 123 mg/dL 09/24/16 08:01 Hemoglobin A1c 5.9 % (4.2-6.1) 09/24/16 08:01 Plasma Lactic Acid Imer 2.0 mmol/L (0.7-2.0) 09/28/16 07:15 Calcium 9.3 mg/dL (8.4-10.2) 09/28/16 04:50 Phosphorus 3.9 mg/dL (2.5-4.5) 09/28/16 04:50 Magnesium 2.2 mg/dL (1.6-2.3) 09/28/16 04:50 Total Bilirubin 0.4 mg/dL (0.2-1.3) 09/27/16 04:25 AST 60 U/L (14-36) H 09/27/16 04:25 ALT 55 U/L (9-52) H 09/27/16 04:25 Alkaline Phosphatase 80 U/L (38-126) 09/27/16 04:25 Total Creatine Kinase 49 U/L (30-135) 09/23/16 14:14 CK-MB (CK-2) 0.8 ng/mL (0.0-2.4) 09/23/16 14:14 CK-MB (CK-2) Rel Index 1.6 09/23/16 14:14 Troponin I <0.012 ng/mL (0.000-0.034) 09/23/16 14:14 NT-Pro-B Natriuret Pep 15114 pg/mL 09/27/16 04:25 Total Protein 6.2 g/dL (6.3-8.2) L 09/27/16 04:25 Albumin 3.3 g/dL (3.5-5.0) L 09/27/16 04:25 Urine Color Light Yellow 09/26/16 19:20 Urine Appearance Clear (Clear) 09/26/16 19:20 Urine pH 5.0 (5.0-8.0) 09/26/16 19:20 Ur Specific [place] 1.005 (1.001-1.035) 09/26/16 19:20 Urine Protein Negative (Negative) 09/26/16 19:20 Urine Glucose (UA) Negative (Negative) 09/26/16 19:20 Urine Ketones Negative (Negative) 09/26/16 19:20 Urine Blood Negative (Negative) 09/26/16 19:20 Urine Nitrite Negative (Negative) 09/26/16 19:20 Urine Bilirubin Negative (Negative) 09/26/16 19:20 Urine Urobilinogen <2.0 mg/dL (<2.0) 09/26/16 19:20 Ur Leukocyte Esterase Negative (Negative) 09/26/16 19:20 Urine RBC 14 /hpf (0-5) H 09/23/16 14:35 Urine WBC 13 /hpf (0-5) H 09/23/16 14:35 Ur Squamous Epith Cells 2 /hpf (0-4) 09/23/16 14:35 Urine Bacteria Rare /hpf (None) H 09/23/16 14:35 Urine Mucus Rare /hpf (None) H 09/23/16 14:35 Influenza Type A RNA Not Detected (Not Detectd) 09/23/16 13:40 Influenza Type B (PCR) Not Detected (Not Detectd) 09/23/16 13:40 Virus Source See Below 09/25/16 09:28 Viral Test See Below H 09/25/16 09:28 Virus Analysis Interp See Below 09/25/16 09:28 Microbiology 09/26/16 19:20 Urine,Catheterized Urine Culture - Final 09/25/16 09:28 Bronchial Washings - Right Gram Stain - Final 09/25/16 09:28 Bronchial Washings - Right Bronchial Washings Culture - Final Methicillin resist S. aureus 09/23/16 14:14 Blood Blood Culture - Preliminary No Growth after 96 hours 09/25/16 09:28 Bronchial Washings - Right Acid Fast Bacilli Smear - Final 09/25/16 09:28 Bronchial Washings - Right Acid Fast Bacilli Culture - Preliminary 09/25/16 09:28 Bronchial Washings - Right Fungal Culture - Preliminary 09/23/16 13:40 Urine,Voided Urine Culture - Final Assessment and Plan (1) Staphylococcus aureus pneumonia Narrative/Plan: 76-year-old woman that has a history of significant underlying COPD that is oxygen dependent is doing relatively well as of late. Was able to travel to the [facility]. Did have a bout of bronchitis when she was at her home in [place]. However now is developed significant pneumonia. With respiratory failure. She's had a bronchoscopy performed. Some purulent secretions were sound and staph aureus but nicely. Vancomycin has been added to current antibiotic therapy. Rocephin will continue his azithromycin was discontinued. She has significant leukocytosis and response to her pneumonia. Altered mental status on the basis of Versed and underlying sepsis from her pneumonia. She's also had difficulty with intermittent pulmonary edema requiring some diuretics and then hypotension was from further fluids adjustment of her medications is being performed and seemed to be bit better this afternoon. She is evidence of lung cancer with history of radiation therapy. She has an acute pneumonia at this present time with staff and hopefully with treatment will have some further improvement. SASI isolate. Vancomycin is appropriate. This will be continued. Likely will need a several week course of antibiotic therapy. May need a course of intravenous antibiotic therapy to complete her treatment given her complex status. Thus may also need a PICC line. Status: Acute (2) COPD with acute lower respiratory infection Status: Acute (3) Leukocytosis Status: Acute
--- NOTE | 2016-09-28 16:33 | PN ---
DATE OF SERVICE: 09/28/2016 PRESENTING COMPLAINT: Difficulty breathing and fevers. INTERVAL HISTORY: 76-year-old female who presented with difficulty breathing and fevers. Overnight patient had episode of increasing difficulty breathing, productive cough and significant hypoxia. Patient was noted to be in fluid overload. Patient received a dose of Lasix and was sent to the intensive care unit. Patient had a second episode of hypoxia while in the ICU, was placed on BiPAP and received another dose of Lasix at that time. Of note patient have a bronchoscopy, which revealed no endobronchial lesions. Lab results revealed MRSA from her bronchial washings. Today, patient developed atrial fibrillation for which Cardiology is seeing her. Review of systems done for constitutional, cardiovascular, GI, pulmonary with relevant findings as above. CURRENT MEDICATIONS: [place], albuterol, Xanax, aspirin, Dulcolax, Pulmicort, Pletal, Plavix, Flexeril, diltiazem, Lovenox, Lasix, Neurontin, Humalog insulin, Ativan, melatonin, Solu-Medrol, Lopressor, Protonix, Senokot, vancomycin, erythromycin. PHYSICAL EXAMINATION: VITAL SIGNS: Temperature 97.8, pulse 95, respirations 17, blood pressure 103/58, oxygen saturation 97%. GENERAL APPEARANCE: Patient in the chair, daughter at the bedside, fidgety, trying to get out of the chair, wants to go back to bed, otherwise, awake, alert, in no acute distress. EYES: Pupils equal, conjunctivae normal. NECK: JVD not raised. Mass not palpable. Respiratory effort normal. LUNGS: Diminished breath sounds bilaterally. Right more than left. CARDIOVASCULAR: S1, S2 irregular. No edema noted. ABDOMEN: Soft, nontender. Liver and spleen not palpable. PSYCHIATRIC: Alert and oriented x3. Mood and affect are normal. INVESTIGATIONS: White blood cell count 21.4, hemoglobin 11.2, potassium 6.1, BUN 37, creatinine 0.8. Chest x-ray reveals decreasing size of right upper lobe cavitary lesion and improving perihilar airspace disease. There is trace pleural effusion and sequelae of COPD. ASSESSMENT: 1. Sepsis secondary to right upper lobe pneumonia that is community-acquired in nature. 2. History of lung carcinoma on left lower lobe per Dr. Guillaume. 3. New-onset atrial fibrillation. 4. Chronic obstructive pulmonary disease in an ex-smoker. 5. Acute on chronic congestive heart failure with preserved function. 6. Coronary artery disease. 7. Peripheral arterial disease. 8. Dyslipidemia. PLAN: Staph aureus noted on BAL washings. Vancomycin was added. Continue Lasix 40 mg IV twice a day. Continue Lopressor as well as diltiazem per Cardiology recommendations for new-onset atrial fibrillation. Lovenox and Protonix for GI and DVT prophylaxis. Continue breathing treatments every 2 hours p.r.n., as well as Pulmicort.
[2016-09-28] MEDS ORDERED: DEXTROSE 5% IN WATER 100 ML with AMIODARONE 150 MG IV ONE (17:30)
[2016-09-28 17:38] LABS: Glucose,Whole Blood 234 mg/dL (75-99)
--- NOTE | 2016-09-28 18:01 | ECHOF ---
Referral Reason:chf MEASUREMENTS -------- HEIGHT: 165.1 cm WEIGHT: 53.5 kg BP: 164/92 RVIDd: 2.9 cm (< 3.3) IVSd: 0.8 cm (0.6 - 1.1) LVIDd: 3.8 cm (3.9 - 5.3) LVPWd: 1.0 cm (0.6 - 1.1) IVSs: 1.3 cm LVIDs: 3.0 cm LVPWs: 1.3 cm LA Diam: 3.0 cm (2.7 - 3.8) LAESV Index (A-L): 18.37 ml/m Ao Diam: 3.0 cm (2.0 - 3.7) AV Cusp: 2.2 cm (1.5 - 2.6) MV EXCURSION: 15.488 mm (> 18.000) MV EF SLOPE: 175 mm/s (70 - 150) EPSS: 0.5 cm MV E Keaton: 0.93 m/s MV DecT: 226 ms MV A [place]: 1.05 m/s MV E/A Ratio: 0.89 RAP: 5.00 mmHg RVSP: 28.15 mmHg FINDINGS -------- Resting tachycardia (HR>100bpm). This was a technically difficult study with suboptimal views. The left ventricular size is normal. Left ventricular wall thickness is normal. Overall left ventricular systolic function is mild-moderately impaired with, an EF between 40 - 45 %. The right ventricle is normal in size and function. Normal LA size by volume 22+/-6 ml/m2. 1.5mg of Definity was utilized for enhancement of images The aortic valve is trileaflet, and appears structurally normal. No aortic stenosis or regurgitation. Mild mitral annular calcification present. There is trace to mild mitral regurgitation. Mild tricuspid regurgitation present. Right ventricular systolic pressure is normal at < 35 mmHg. The pulmonic valve was not well visualized. The aortic root size is normal. The inferior vena cava is mildly dilated. The pericardium is normal. CONCLUSIONS -------- 1. Resting tachycardia (HR>100bpm). 2. Mild mitral annular calcification present. 3. There is trace to mild mitral regurgitation. 4. Mild tricuspid regurgitation present. 5. Right ventricular systolic pressure is normal at < 35 mmHg. 6. The pulmonic valve was not well visualized. 7. The aortic root size is normal. 8. The inferior vena cava is mildly dilated. 9. The pericardium is normal. 10. This was a technically difficult study with suboptimal views. 11. The left ventricular size is normal. 12. Left ventricular wall thickness is normal. 13. Overall left ventricular systolic function is mild-moderately impaired with, an EF between 40 - 45 %. 14. The right ventricle is normal in size and function. 15. Normal LA size by volume 22+/-6 ml/m2. 16. 1.5mg of Definity was utilized for enhancement of images 17. The aortic valve is trileaflet, and appears structurally normal. No aortic stenosis or regurgitation. M[place]OL[place] REPAIRER: Regina Kitchen RDCS
[2016-09-28] MEDS: AMIODARONE 450 MG in DEXTROSE 5% IN WATER 250 ML IV SCH ×2 (18:38)
[2016-09-28] MEDS: HYDROcodone/APAP 10-325MG 1 EACH TAB PO PRN (19:57)
[2016-09-28 20:03] LABS: Glucose,Whole Blood 234 mg/dL (75-99)
[2016-09-28] MEDS: ATORVASTATIN 80 MG TAB PO SCH (20:17)
[2016-09-28] MEDS: GABAPENTIN 300 MG CAP PO SCH (20:18)
[2016-09-28] MEDS: MELATONIN 5 MG TABLET PO SCH (20:18)
[2016-09-28] MEDS: INSULIN GLARGINE 100 UNIT/ML 10 ML VIAL SQ SCH (20:19)
[2016-09-29] MEDS: AMIODARONE 450 MG in DEXTROSE 5% IN WATER 250 ML IV SCH ×4 (04:32→12:26)
[2016-09-29 05:14] LABS: CH 30.4; CHCM 33.4; HCT 32.6 % (34.0-46.0); HDW 2.42; HGB 10.6 gm/dL (11.4-16.0); Immature Gran Flag Moderate; MCH 29.6 pg (25.0-35.0); MCHC 32.4 g/dL (31.0-37.0); MCV 91.3 fL (80.0-100.0); Mean Platelet Volume 7.8; RBC 3.57 m/uL (3.80-5.40); RDW 13.9 % (11.5-15.5); WBC (Perox) 26.57
[2016-09-29 05:18] LABS: WBC 25.3 k/uL (3.8-10.6)
[2016-09-29 05:34] LABS: Add Differential Manual Differential
[2016-09-29 05:37] LABS: Nucleated Red Blood Cells 0 /100 WBC (0-0); Total Cells Counted 200
[2016-09-29 05:41] LABS: Manual Review Performed; Polychromasia Present
[2016-09-29] MEDS: methylPREDNISolone SOD SUCCI 125 MG/2 ML VIAL IV SCH ×3 (05:53→18:42)
--- NOTE | 2016-09-29 06:22 | PN ---
DATE OF SERVICE: 09/28/2016 ATTENDING NOTE: This patient was seen and examined by me. Patient was admitted with pneumonia. Has been in and out of pulmonary edema. Started into atrial fibrillation today. Feeling weak and tired. Daughter is at the bedside. On examination, afebrile. Heart rate is controlled in the 80s. LUNGS: Decreased breath sounds. Some crackles, some expiratory wheezing. CARDIOVASCULAR: Heart sound is irregular. PSYCH: Alert and oriented x3, though tired appearing. INVESTIGATIONS: White count 21.4, hemoglobin 11.2. Potassium 6.1. ASSESSMENT: 1. Right upper lobe pneumonia with cultures positive from methicillin-resistant Staphylococcus aureus causing sepsis on presentation, community acquired type, slow to respond. 2. History of lung cancer of left lower lobe. 3. New onset atrial fibrillation with rapid ventricular rate on presentation, now being anticoagulated. 4. Chronic obstructive pulmonary disease in an ex-smoker. 5. Acute on chronic congestive heart failure exacerbation from systolic dysfunction; ejection fraction 40% to 45%, from underlying coronary artery disease. 6. Coronary artery disease with prior history of stent. 7. Peripheral arterial disease with prior stent in the right groin. 8. Hyperlipidemia. PLAN: Continue current medication and treatment plan. Sugars are running high, will add some Lantus. Patient is also on Lasix, amiodarone, vancomycin. Prognosis is guarded. Will follow.
[2016-09-29 06:23] LABS: Anion Gap 5 mmol/L; Calcium 8.8 mg/dL (8.4-10.2); Carbon Dioxide 36 mmol/L (22-30); Chloride 96 mmol/L (98-107); Glucose 125 mg/dL (74-99); Non-African American GFR(MDRD) >60 (>60 ml/min/1.73 sqM); Sodium 137 mmol/L (137-145)
[2016-09-29 06:30] LABS: Potassium 5.2 mmol/L (3.5-5.1)
[2016-09-29 06:31] LABS: Blood Urea Nitrogen 39 mg/dL (7-17); Magnesium 2.1 mg/dL (1.6-2.3); Phosphorous 3.9 mg/dL (2.5-4.5)
--- NOTE | 2016-09-29 06:52 | CONS ---
DATE OF CONSULTATION: 09/28/2016 REASON FOR THE CONSULTATION: 1. Congestive heart failure. 2. Paroxysmal atrial fibrillation. HISTORY OF PRESENT ILLNESS: This is a pleasant 76-year-old female patient with a past medical history significant for coronary artery disease, peripheral arterial disease as well as multiple comorbid conditions was admitted to the hospital initially with what seems to be pneumonia. The patient initially was admitted to the non- tele floor and she was receiving antibiotic. During her hospitalization, the patient developed flash pulmonary edema and acute respiratory failure and she was admitted to the intensive care unit. During her stay in the intensive care unit, the patient developed what seems to be paroxysmal atrial fibrillation. Earlier today, she went into an A. Fib with RVR and she was started on Cardizem drip and converted to normal sinus mechanism. Currently, she has been maintaining normal sinus mechanism. The blood pressure has been marginally low. She is not on any vasopressors. The patient is known to have coronary artery disease and prior coronary artery stenting as well as peripheral arterial disease and prior peripheral arterial stenting. The details on these 2 conditions are unknown at this point. She underwent an echocardiogram with Doppler, which was performed and the results are not back yet at this point. Past medical history includes: 1. Coronary artery disease and prior revascularization. 2. Peripheral arterial disease and prior revascularization. 3. History of lung cancer. Current medications include the followin. Aspirin 81 mg p.o. daily. 2. Atorvastatin 80 mg p.o. q.h.s. 3. Cilostazol 100 mg p.o. b.i.d. 4. Plavix 75 mg p.o. daily. 5. Lovenox 40 mg subcu daily. 6. Furosemide 40 mg IV b.i.d. 7. Insulin. 8. Metoprolol 50 mg p.o. t.i.d. PHYSICAL EXAMINATION: GENERAL APPEARANCE: The patient does not look in any pain or distress. Vitals showed the heart rate is 88 beats per minute, respiratory rate 24 per minute, pressure is 124/63, saturation 98% on 2 L. Cardiovascular examination shows regular rate and rhythm. Respiratory examination showed diminished breathing sounds bilaterally. ASSESSMENT: 1. Acute on chronic respiratory failure secondary to congestive heart failure exacerbation unknown if it is due to systolic or diastolic dysfunction. 2. Paroxysmal atrial fibrillation and the patient has been maintaining normal sinus mechanism. 3. Known coronary artery disease and prior stenting. 4. Known peripheral arterial disease and prior stenting. PLAN: 1. Continue the current above dose of Lasix IV. 2. Continue to monitor the kidney function and electrolytes. 3. Obtain the previous medical records. 4. Follow up with the echocardiogram.
--- NOTE | 2016-09-29 06:59 | P.CONS ---
History of Present Illness - Chief Complaint Medical debility - History of Present Illness I had the op to see patient for inpatient rehab consultation with regard to medical debility. She was admitted to [facility] September 23 with shortness of breath. This apparently was increasing. Seen by Dr. Guillaume. Patient did undergo bronchoscopy. Patient seen by Dr. Hercules for right-sided pneumonia and sepsis. Serial chest x-rays followed for same and no decrease in size of infiltrate. I'm going COPD. I have just prescribed PT and OT. Previous functional history, as elicited from patient: 76-year-old right-handed white female who is lives and 2 floor condo, alone. Retired. History smoking but doesn't smoke currently. Rare drink. Describes independent with cooking, laundry, standing shower and gait without device. Does not drive. Family history of cancer in both parents. Review of Systems Review of systems: ENT: Denies sneezes or discharge. Eyes: Denies discharge or photophobia. Cardiac: Denies chest pain or palpitation. Pulmonary: Denies cough or shortness of breath. Breast: Denies discharge or lumps. Gastrointestinal: Denies nausea, emesis, constipation, diarrhea. Genitourinary: Denies discharge or frequency. Musculoskeletal: Generalized aches and pains. Neurologic: Generalized weakness. Endocrine: Denies shakes or sweats. Oncology: Denies cancers. Dermatologic: Denies rash, itching, pruritus. ALLERGY/immunology: Denies sneezes, rashes. Past Medical History Past Medical History: Cancer, COPD, CVA/TIA, Deep Vein Thrombosis (DVT), Fibromyalgia, GERD/Reflux, Hyperlipidemia, Hypertension, Osteoarthritis (OA), Sleep Apnea/CPAP/BIPAP, Vascular Disorder Additional Past Medical History / Comment(s): back pain , lung cancer-radiation opnly, HOME 02 2 LITERS N/C, BLOOD CLOT AFTER SX, CVA LT SIDE AFFECTED SINCE RESOLVED, HIATAL HERNIA. SHINGLES 30 YEARS AGO, DOES'NT USE CPAP MACHINE.in past for short period of time took oral meds for dm-then taken off meds-pt stated not considered diabetic now but occ will check bs., macular degeneration.past broken rt leg and lt wrist History of Any Multi-Drug Resistant Organisms: None Reported Past Surgical History: Cholecystectomy, Heart Catheterization With Stent, Orthopedic Surgery, Tonsillectomy Additional Past Surgical History / Comment(s): rt leg repaired after break-has pins, lt wrist-plate and screws.lung bx, stents tung groins Past Anesthesia/Blood Transfusion Reactions: Family History of Problems w/ Anesthesia Additional Past Anesthesia/Blood Transfusion Reaction / Comm: daughter has diff waking after aa Date of Last Stent Placement:: unk Past Psychological History: Depression Additional Psychological History / Comment(s): pt lives between [place] and [place]. does'nt drive- either daughters or sister takes her places. has home 02, nebulizer. . Ongoing tobacco smoker stopping just a short time ago. Has a history of lung cancer Smoking Status: Former smoker Past Alcohol Use History: Occasional Additional Past Alcohol Use History / Comment(s): started smopking at age 14( 5), quit 1976 Past Drug Use History: None Reported - Past Family History Father Family Medical History: Congestive Heart Failure (CHF), COPD Additional Family Medical History / Comment(s): emphysema Mother Family Medical History: Cancer Medications and Allergies Home Medications Medication Instructions Recorded Confirmed Type Albuterol Nebulized [Ventolin 2.5 mg INHALATION RT-BID 09/23/16 09/23/16 History Nebulized] Albuterol Sulfate [Proventil Hfa] 1 - 2 puff INHALATION RT-Q6H PRN 09/23/1607/11 History Aspirin 81 mg PO DAILY 09/23/16 09/23/16 History Atorvastatin Calcium [Lipitor] 80 mg PO HS 09/23/16 09/23/16 History Cilostazol [Pletal] 100 mg PO BID 09/23/16 09/23/16 History Clopidogrel Bisulfate [Plavix] 75 mg PO DAILY 09/23/16 09/23/16 History Cyclobenzaprine [Flexeril] 10 mg PO HS PRN 09/23/16 09/23/16 History Fluticasone/Salmeterol [Advair 1 inhalation PO RT-BID 09/23/16 09/23/16 History 100-50 Diskus] Gabapentin [Neurontin] 100 mg PO TID 09/23/16 09/23/16 History HYDROcodone/APAP 10-325MG [[place] 1 tab PO BID 09/23/16 09/23/16 History 10-325] Lmfol Ca/Acetyl/Mb12/Algal Oil 1 tab PO DAILY 09/23/16 09/23/16 History [Cerefolin Nac Caplet] Metoprolol Tartrate [Lopressor] 25 mg PO BID 09/23/16 09/23/16 History Multivitamins, Thera [Multivitamin 1 tab PO DAILY 09/23/16 09/23/16 History (formulary)] Pantoprazole Sodium [Protonix] 40 mg PO DAILY 09/23/16 09/23/16 History Ranitidine HCl [Zantac] 150 mg PO DAILY PRN 09/23/16 09/23/16 History Tiotropium 18 Mcg/Puff [Spiriva] 1 cap INHALATION RT-DAILY 09/23/16 09/23/16 History Valsartan [Diovan] 80 mg PO DAILY 09/23/16 09/23/16 History Vit A,C & E/Lutein/Minerals 1 tab PO DAILY 09/23/16 09/23/16 History [Ocuvite with Lutein Tablet] Allergies Allergy/AdvReac Type Severity Reaction Status Date / Time No Known Allergies Allergy Verified 09/23/16 13:35 Physical Exam Vitals: Vital Signs Temp Pulse Pulse Resp BP Pulse Ox 09/29/16 06:00 71 13 104/51 94 L 09/29/16 05:00 70 13 86/47 97 09/29/16 04:00 97.5 F L 64 11 L 104/58 96 09/29/16 03:00 67 15 100/48 97 09/29/16 02:00 63 11 L 98/49 99 09/29/16 01:00 61 15 97/51 97 09/29/16 00:00 67 13 86/45 100 09/28/16 23:10 60 12 86/45 99 09/28/16 23:00 62 12 93/43 99 09/28/16 22:00 69 13 141/67 98 09/28/16 21:00 81 19 120/60 97 09/28/16 20:00 98.3 F 88 24 124/63 98 09/28/16 19:42 82 09/28/16 19:31 81 09/28/16 19:00 82 24 109/52 97 09/28/16 18:00 98 31 H 114/58 94 L 09/28/16 17:00 96 24 113/53 93 L 09/28/16 16:00 98.0 F 82 16 102/53 91 L 09/28/16 15:00 86 18 116/61 95 09/28/16 14:38 86 09/28/16 14:27 95 09/28/16 14:00 86 17 87/43 97 09/28/16 13:00 93 28 H 103/58 98 09/28/16 12:00 97.8 F 144 H 28 H 96/63 99 09/28/16 11:00 126 H 20 112/58 96 09/28/16 10:00 83 16 105/60 99 09/28/16 09:00 135 H 28 H 140/66 92 L 09/28/16 08:32 96 09/28/16 08:23 94 L 09/28/16 08:09 96 09/28/16 08:00 97.7 F 86 96 16 145/86 95 09/28/16 07:00 80 16 115/58 97 Intake and Output 09/28/16 09/28/16 09/29/16 14:59 22:59 06:59 Intake Total 420 325 669.00 Output Total 1160 718 560 Balance -740 -393 109.00 Intake: IV 420 325 410 0.9 110 160 160 Amiodarone 450 mg In 150 Dextrose 5% in Water 250 ml @ 1 MG/MIN 34.53 mls/ hr IV .Q7H31M [facility] Rx#: [id number] Diltiazem 125 mg In 10 15 Sodium Chloride 0.9% 100 ml @ 5 MG/HR 5 mls/hr IV .Q24H [facility] Rx#:[id number] Vancomycin 1,250 mg In 250 250 Sodium Chloride 0.9% 250 ml @ 125 mls/hr IVPB ONCE ONE Rx#:[id number] cefTRIAXone 1,000 mg In 50 Sodium Chloride 0.9% 50 ml @ 100 mls/hr IVPB Q24HR [facility] Rx#:[id number] Intake, IV Titration 259.00 Amount Amiodarone 450 mg In 259.00 Dextrose 5% in Water 250 ml @ 1 MG/MIN 34.53 mls/ hr IV .Q7H31M [facility] Rx#: [id number] Output: Urine 1160 718 560 Other: Voiding Method Indwelling Catheter Indwelling Catheter Indwelling Catheter Weight 53.2 kg Patient Weight 09/29/16 06:59 Weight 53.2 kg Skin: Good color, texture, turgor. General: Thin to Medium build and comfortable appearance. Head: Normocephalic, atraumatic. Eyes: Symmetric. Pupils equal round. Ears: Symmetric. Hearing within normal limits. Mouth: Clear. Neck: Supple. Carotid without bruit. Cardiac: Regular rate and rhythm. Lungs: Clear anteriorly and posteriorly. Abdomen: Soft active nontender. Extremities: Normal tone. Neurological: Mental status: Alert, cooperative, pleasant. Cranial nerves: Symmetric facial tone and trapezius. Motor: Normal strength and isolation all 4 limbs. Sensation: Intact throughout. DTRs: Symmetric and equal throughout. Mobility: Did not attempt to sit or stand is currently in ICU and awaiting nursing care this a.m. Results CBC & Chem 7: 09/29/16 04:57 09/29/16 04:57 Labs: Abnormal Lab Results - Last 24 Hours (Table) 09/28/16 09/28/16 09/28/16 Range/Units 08:05 13:08 17:35 WBC (3.8-10.6) k/uL RBC (3.80-5.40) m/uL Hgb (11.4-16.0) gm/dL Hct (34.0-46.0) % Neutrophils # (Manual) (1.3-7.7) k/uL Potassium (3.5-5.1) mmol/L Chloride (98-107) mmol/L Carbon Dioxide (22-30) mmol/L BUN (7-17) mg/dL Glucose (74-99) mg/dL POC Glucose (mg/dL) 191 H 198 H 234 H (75-99) mg/dL 09/28/16 09/29/16 09/29/16 Range/Units 20:01 04:57 04:57 WBC 25.3 H* (3.8-10.6) k/uL RBC 3.57 L (3.80-5.40) m/uL Hgb 10.6 L (11.4-16.0) gm/dL Hct 32.6 L (34.0-46.0) % Neutrophils # (Manual) 21.0 H (1.3-7.7) k/uL Potassium 5.2 H (3.5-5.1) mmol/L Chloride 96 L (98-107) mmol/L Carbon Dioxide 36 H (22-30) mmol/L BUN 39 H (7-17) mg/dL Glucose 125 H (74-99) mg/dL POC Glucose (mg/dL) 234 H (75-99) mg/dL Microbiology - Last 24 Hours (Table) 09/26/16 19:20 Urine Culture - Final Urine,Catheterized 09/25/16 09:28 Gram Stain - Final Bronchial Washings - Right Bronchial Washings Culture - Final Methicillin resist S. aureus Chest x-ray: report reviewed (Real chest x-rays followed and no decrease in infiltrates and ongoing COPD.) Assessment and Plan (1) COPD with acute lower respiratory infection Status: Acute Plan: Impression: 1. Medical debility. 2. COPD with respiratory failure/pneumonia and sepsis. 3. History of DVT. 4. Hypertension. 5. Dyslipidemia. 6. Sleep apnea. 7. History of stroke. Comments and plan: At this time I'll prescribe PT and OT and will follow therapy with yourself. Safety concerns anticipated. I'll follow for possible need of inpatient rehab.
[2016-09-29 07:42] LABS: Glucose,Whole Blood 173 mg/dL (75-99)
--- NOTE | 2016-09-29 08:10 | XR ---
EXAMINATION TYPE: XR chest 1V DATE OF EXAM: 09/29/2016 6:49 AM COMPARISON: Prior chest x-ray 28 Sep 2016 HISTORY: Pneumonia TECHNIQUE: Single frontal view of the chest is obtained. FINDINGS: There is interval obscured hemidiaphragm on the right, bibasilar density is present, densi ty again noted in the right upper lobe. No evident pneumothorax. Cardiomediastinal silhouette, pulmon angy vascularity and zita are stable. Lung volumes are prominent compatible with underlying COPD. IMPRESSION: Similar to prior exam. There may be interval increase in basilar atelectasis and effusio n. Correlate for pneumonia, follow-up to resolution.
[2016-09-29] MEDS: INSULIN LISPRO (humaLOG) 300 UNIT/3 ML VIAL SQ SCH ×4 (08:21→21:15)
[2016-09-29] MEDS: HYDROcodone/APAP 10-325MG 1 EACH TAB PO PRN (08:24)
[2016-09-29] MEDS: PANTOPRAZOLE 40 MG TABLET PO SCH (08:25)
[2016-09-29] MEDS: ASPIRIN 81 MG CHEW PO SCH (08:25)
[2016-09-29] MEDS: TIOTROPIUM 18 MCG/PUFF INHALER INHALATION SCH (08:25)
[2016-09-29] MEDS: FUROSEMIDE 10 MG/ML 4 ML VIAL IV SCH ×2 (08:25→21:06)
[2016-09-29] MEDS: ALBUTEROL NEBULIZED 2.5 MG/3 ML INHALATION SCH ×2 (08:25→11:21)
[2016-09-29] MEDS: BUDESONIDE 0.5 MG/2 ML NEBU INHALATION SCH ×2 (08:25→21:40)
[2016-09-29] MEDS: CLOPIDOGREL 75 MG TAB PO SCH (08:26)
[2016-09-29] MEDS: CILOSTAZOL 100 MG TAB PO SCH (08:26)
[2016-09-29] MEDS: VALSARTAN 80 MG TAB PO SCH (08:26)
[2016-09-29] MEDS: METOPROLOL TARTRATE 50 MG TAB PO SCH ×3 (08:26→21:08)
[2016-09-29] MEDS: NYSTATIN 100,000 UNIT/ML SUSP 500,000 UNIT/5 ML CUP PO SCH ×4 (08:27→21:09)
[2016-09-29 09:00] LABS: Mis test requested (Non-blood) Pneumocytis by PCR
[2016-09-29] MEDS: ALPRAZolam 0.5 MG TAB PO SCH ×3 (09:07→21:16)
--- NOTE | 2016-09-29 11:21 | P.PN ---
Subjective Principal diagnosis: CHF This is a pleasant 76-year-old female patient with a past medical history significant for CAD, PAD, as well as multiple comorbid conditions was admitted to the hospital initially with a pneumonia. During her hospitalization she went into congestive heart failure and also into A. fib with RVR. Currently the patient has been maintaining normal sinus mechanism. She continues to be hemodynamically stable. The chest x-ray continues to show finding of congestive heart failure and she is currently on Lasix IV. I will continue the current medical treatment was dual antiplatelet therapy. I am going to DC the Lovenox and start the patient on anticoagulation using Eliquis. We'll continue diuresing the patient using Lasix IV. Objective - Vital Signs Vital signs: Vital Signs Temp 97.5 F L 09/29/16 08:00 Pulse 89 09/29/16 10:00 Resp 13 09/29/16 10:00 BP 127/60 09/29/16 10:00 Pulse Ox 90 L 09/29/16 10:00 Intake & Output 09/28/16 09/29/16 09/29/16 18:59 06:59 18:59 Intake Total 515 899.00 266.8 Output Total 1363 1075 660 Balance -848 -176.00 -393.2 Weight 53.2 kg 53.2 kg Intake: IV 515 640 146.8 0.9 190 240 80 Amiodarone 450 mg In 150 66.8 Dextrose 5% in Water 250 ml @ 1 MG/MIN 34.53 mls/ hr IV .Q7H31M [facility] Rx#: [id number] Diltiazem 125 mg In 25 Sodium Chloride 0.9% 100 ml @ 5 MG/HR 5 mls/hr IV .Q24H [facility] Rx#:[id number] Vancomycin 1,250 mg In 250 250 Sodium Chloride 0.9% 250 ml @ 125 mls/hr IVPB ONCE ONE Rx#:[id number] cefTRIAXone 1,000 mg In 50 Sodium Chloride 0.9% 50 ml @ 100 mls/hr IVPB Q24HR [facility] Rx#:[id number] Intake, IV Titration 259.00 Amount Amiodarone 450 mg In 259.00 Dextrose 5% in Water 250 ml @ 1 MG/MIN 34.53 mls/ hr IV .Q7H31M [facility] Rx#: [id number] Oral 120 Output: Urine 1363 1075 660 Other: Voiding Method Indwelling Catheter Indwelling Catheter Indwelling Catheter - Constitutional General appearance: Present: no acute distress - Respiratory Respiratory: bilateral: CTA - Cardiovascular Rhythm: regular Heart sounds: normal: S1, S2 - Labs CBC & Chem 7: 09/29/16 04:57 09/29/16 04:57 Labs: Abnormal Lab Results - Last 24 Hours (Table) 09/25/16 09/28/16 09/28/16 Range/Units 09:28 13:08 17:35 WBC (3.8-10.6) k/uL RBC (3.80-5.40) m/uL Hgb (11.4-16.0) gm/dL Hct (34.0-46.0) % Neutrophils # (Manual) (1.3-7.7) k/uL Potassium (3.5-5.1) mmol/L Chloride (98-107) mmol/L Carbon Dioxide (22-30) mmol/L BUN (7-17) mg/dL Glucose (74-99) mg/dL POC Glucose (mg/dL) 198 H 234 H (75-99) mg/dL Viral Test See Below H 09/28/16 09/29/16 09/29/16 Range/Units 20:01 04:57 04:57 WBC 25.3 H* (3.8-10.6) k/uL RBC 3.57 L (3.80-5.40) m/uL Hgb 10.6 L (11.4-16.0) gm/dL Hct 32.6 L (34.0-46.0) % Neutrophils # (Manual) 21.0 H (1.3-7.7) k/uL Potassium 5.2 H (3.5-5.1) mmol/L Chloride 96 L (98-107) mmol/L Carbon Dioxide 36 H (22-30) mmol/L BUN 39 H (7-17) mg/dL Glucose 125 H (74-99) mg/dL POC Glucose (mg/dL) 234 H (75-99) mg/dL Viral Test 09/29/16 Range/Units 07:40 WBC (3.8-10.6) k/uL RBC (3.80-5.40) m/uL Hgb (11.4-16.0) gm/dL Hct (34.0-46.0) % Neutrophils # (Manual) (1.3-7.7) k/uL Potassium (3.5-5.1) mmol/L Chloride (98-107) mmol/L Carbon Dioxide (22-30) mmol/L BUN (7-17) mg/dL Glucose (74-99) mg/dL POC Glucose (mg/dL) 173 H (75-99) mg/dL Viral Test Microbiology - Last 24 Hours (Table) 09/26/16 19:20 Urine Culture - Final Urine,Catheterized 09/25/16 09:28 Gram Stain - Final Bronchial Washings - Right Bronchial Washings Culture - Final Methicillin resist S. aureus Assessment and Plan Plan: Assessment #1 congestive heart failure exacerbation secondary to systolic dysfunction #2 mild cardiomyopathy with an ejection fraction between 40-45% #3 paroxysmal atrial fibrillation #4 CAD #5 PAD Plan #1 continue Lasix IV #2 DC Lovenox and start the patient on oral anticoagulation #3 continue monitor the kidney function and electrolytes #4 follow-up with the patient
[2016-09-29] MEDS: AMIODARONE 200 MG TAB PO SCH ×2 (11:56→21:05)
[2016-09-29] MEDS ORDERED: LIDOCAINE 2% INJ 20 MG/ML SQ ONE (12:21)
[2016-09-29 12:52] LABS: Glucose,Whole Blood 217 mg/dL (75-99)
--- NOTE | 2016-09-29 12:53 | XR ---
EXAMINATION TYPE: XR chest 1V portable DATE OF EXAM: 09/29/2016 12:49 PM COMPARISON: 09/29/2016 HISTORY: PICC line FINDINGS: There are bilateral pleural effusions with cardiomegaly and bibasilar infiltrate. There is a diffuse interstitial pattern. PICC line extending cephalad into the neck. Underlying COPD suspected. Surgica l change in the right upper quadrant noted. Rib fracture suggested. IMPRESSION: 1. PICC line extending cephalad and is to be repositioned. Diffuse lung disease stable
--- NOTE | 2016-09-29 12:54 | XR ---
EXAMINATION TYPE: XR chest 1V portable DATE OF EXAM: 09/29/2016 12:50 PM COMPARISON: 09/29/2016 HISTORY: PICC line TECHNIQUE: Single frontal view of the chest is obtained. FINDINGS: PICC line appears in good position. Underlying COPD seen. Surgical change in the right upp er quadrant abdomen. Diffuse osteopenia noted. Atherosclerotic change aorta. Bilateral airspace disease and tiny effusion stable. IMPRESSION: PICC line now appears in good position.
[2016-09-29] MEDS: IPRATROPIUM 0.5 MG/2.5 ML NEBU INHALATION SCH ×3 (13:23→21:40)
[2016-09-29] MEDS: MULTIVITAMINS, THERA 1 EACH TAB PO SCH (13:23)
[2016-09-29] MEDS: LEVALBUTEROL NEB (CONC) 1.25 MG/0.5 ML AMP INHALATION SCH ×3 (13:23→21:40)
--- NOTE | 2016-09-29 14:41 | P.PN ---
Subjective Physical 76-year-old female patient who is being evaluated and examined today on the fourth floor. Patient came into the emergency room for generalized weakness over the last few days as well as decreased appetite and shortness of breath with cough that is productive with green sputum. She was also noted to have a temperature 101.1 and was tachycardic. A chest x-ray was performed and demonstrated a right upper lobe pneumonia. Patient was given IV fluids along with other medications and her heart rate and fever both improved. The patient does have a history of lung carcinoma with status post radiation for 5 years. The patient and the family were both told that she was in remission in 2013 after a PET scan. Patient does have a history of smoking however she stated she stopped smoking a few months ago. A CT of the chest was obtained and reveals mild emphysematous change with cavitary masslike lesions to the right upper lobe favoring focal infectious process or cavitary pneumonia, recurrent neoplasia some is not excluded but felt less likely. the patient was transferred to the intensive care unit September 26, increasing shortness of breath, fluid overload with a component of congestive heart failure. the patient was placed on BiPAP and received a few doses of Lasix. The patient also developed atrial fibrillation and cardiology is on consult. Currently she is hemodynamically stable. Upon examination the patient is resting in bed, she is afebrile. Her oxygen demands have decreased to 2 L. She continues to have a cough which is productive with yellow sputum. Patient underwent a bronchoscopy on . Objective - Vital Signs Vital signs: Vital Signs Temp 97.5 F L 09/29/16 08:00 Pulse 87 09/29/16 11:22 Resp 13 09/29/16 10:00 BP 127/60 09/29/16 10:00 Pulse Ox 90 L 09/29/16 10:00 Intake & Output 09/28/16 09/29/16 09/29/16 18:59 06:59 18:59 Intake Total 515 899.00 266.8 Output Total 1363 1075 660 Balance -848 -176.00 -393.2 Weight 53.2 kg 53.2 kg Intake: IV 515 640 146.8 0.9 190 240 80 Amiodarone 450 mg In 150 66.8 Dextrose 5% in Water 250 ml @ 1 MG/MIN 34.53 mls/ hr IV .Q7H31M [facility] Rx#: [id number] Diltiazem 125 mg In 25 Sodium Chloride 0.9% 100 ml @ 5 MG/HR 5 mls/hr IV .Q24H [facility] Rx#:[id number] Vancomycin 1,250 mg In 250 250 Sodium Chloride 0.9% 250 ml @ 125 mls/hr IVPB ONCE ONE Rx#:[id number] cefTRIAXone 1,000 mg In 50 Sodium Chloride 0.9% 50 ml @ 100 mls/hr IVPB Q24HR [facility] Rx#:[id number] Intake, IV Titration 259.00 Amount Amiodarone 450 mg In 259.00 Dextrose 5% in Water 250 ml @ 1 MG/MIN 34.53 mls/ hr IV .Q7H31M [facility] Rx#: [id number] Oral 120 Output: Urine 1363 1075 660 Other: Voiding Method Indwelling Catheter Indwelling Catheter Indwelling Catheter - Exam GENERAL EXAM: Alert, active, comfortable in no apparent distress. HEAD: Normocephalic. EYES: Normal reaction of pupils, equal size. NOSE: Clear with pink turbinates. THROAT: No erythema or exudates. NECK: No masses, no JVD. CHEST: No chest wall deformity. LUNGS: Lung sounds diminished , bilaterally. CVS: S1 and S2 normal with no audible mumurs, irregular rhythm. ABDOMEN: No hepatosplenomegaly, normal bowel sounds, no guarding or rigidity. EXTREMITIES: No edema noted, pedal pulses palpable. SKIN: No rashes CENTRAL NERVOUS SYSTEM: No focal deficits, tone is normal in all 4 extremities. - Labs CBC & Chem 7: 09/29/16 04:57 09/29/16 04:57 Labs: Abnormal Lab Results - Last 24 Hours (Table) 09/25/16 09/28/16 09/28/16 Range/Units 09:28 13:08 17:35 WBC (3.8-10.6) k/uL RBC (3.80-5.40) m/uL Hgb (11.4-16.0) gm/dL Hct (34.0-46.0) % Neutrophils # (Manual) (1.3-7.7) k/uL Potassium (3.5-5.1) mmol/L Chloride (98-107) mmol/L Carbon Dioxide (22-30) mmol/L BUN (7-17) mg/dL Glucose (74-99) mg/dL POC Glucose (mg/dL) 198 H 234 H (75-99) mg/dL Viral Test See Below H 09/28/16 09/29/16 09/29/16 Range/Units 20:01 04:57 04:57 WBC 25.3 H* (3.8-10.6) k/uL RBC 3.57 L (3.80-5.40) m/uL Hgb 10.6 L (11.4-16.0) gm/dL Hct 32.6 L (34.0-46.0) % Neutrophils # (Manual) 21.0 H (1.3-7.7) k/uL Potassium 5.2 H (3.5-5.1) mmol/L Chloride 96 L (98-107) mmol/L Carbon Dioxide 36 H (22-30) mmol/L BUN 39 H (7-17) mg/dL Glucose 125 H (74-99) mg/dL POC Glucose (mg/dL) 234 H (75-99) mg/dL Viral Test 09/29/16 Range/Units 07:40 WBC (3.8-10.6) k/uL RBC (3.80-5.40) m/uL Hgb (11.4-16.0) gm/dL Hct (34.0-46.0) % Neutrophils # (Manual) (1.3-7.7) k/uL Potassium (3.5-5.1) mmol/L Chloride (98-107) mmol/L Carbon Dioxide (22-30) mmol/L BUN (7-17) mg/dL Glucose (74-99) mg/dL POC Glucose (mg/dL) 173 H (75-99) mg/dL Viral Test Microbiology - Last 24 Hours (Table) 09/26/16 19:20 Urine Culture - Final Urine,Catheterized 09/25/16 09:28 Gram Stain - Final Bronchial Washings - Right Bronchial Washings Culture - Final Methicillin resist S. aureus Assessment and Plan Plan: Assessment Sepsis secondary to community-acquired pneumonia in the right upper lobe acute on chronic hypoxic respiratory failure chronic obstructive pulmonary disease coronary artery disease Peripheral arterial disease Dyslipidemia History of lung cancer Peripheral neuropathy Hypertension New-onset atrial fibrillation Plan Patient can be downgraded from ICU. Medications have been reviewed and will be continued as ordered. We will continue with antibiotics and IV steroids. We will taper down the steroids. We will initiate and encourage incentive spirometer. Continue with supplemental oxygen, nebulizer treatments, pulmonary hygiene and supportive care. albuterol has been switched to Xopenex due to new- onset A. fib. We will continue to monitor labs/results and adjust treatment as necessary. I performed an examination of the patient and discussed their management with the nurse practitioner. I have reviewed the nurse practitioner's note and agree with the documented findings and plan of care.
[2016-09-29] MEDS: HYDROcodone/APAP 5-325MG 1 EACH TAB PO PRN (16:07)
[2016-09-29] MEDS: ENOXAPARIN 40 MG/0.4 ML SYRINGE SQ SCH (16:49)
[2016-09-29 17:00] LABS: Glucose,Whole Blood 176 mg/dL (75-99)
[2016-09-29] MEDS: VANCOMYCIN 1,000 MG in SODIUM CHLORIDE 0.9% 250 ML IVPB SCH (17:08)
[2016-09-29 20:38] LABS: Glucose,Whole Blood 250 mg/dL (75-99)
[2016-09-29] MEDS: ATORVASTATIN 80 MG TAB PO SCH (21:05)
[2016-09-29] MEDS: GABAPENTIN 300 MG CAP PO SCH (21:07)
[2016-09-29] MEDS: MELATONIN 5 MG TABLET PO SCH (21:08)
[2016-09-29] MEDS: APIXABAN 2.5 MG TABLET PO SCH (21:11)
[2016-09-29] MEDS: INSULIN GLARGINE 100 UNIT/ML 10 ML VIAL SQ SCH (21:14)
--- NOTE | 2016-09-29 21:53 | P.PN ---
Subjective Principal diagnosis: Pneumonia 76 -year-old Woman who presents to Hospital with a relatively short history of increasing cough and sputum production that was thick and yellow in nature. The patient's daughter is present and relates that short time ago they were doing well and had traveled to the [facility] with the patient did very well. She also routinely [facility]. She did have difficulties while she was in [place] with a bronchial infection. It was treated and she was well enough to travel to the [facility] without illnesses. Patient's also relates that a week prior there were out shopping and doing well. The patient has had a significant change of her status and has developed fever increasing shortness of breath and sputum production. Is brought in the hospital she had ongoing fever and then developed some respiratory failure requiring transient intensive care unit and utilization of BiPAP. She remains evidence of the significant shortness of breath and metabolic encephalopathy but does seem to be comfortable at this point in time. She is improved today. Sitting upright. Does not have on BiPAP. more awake and alert. Improved confusion. patient is aware that she'll be going to rehab after discharge to [place] a course of antibiotic theapy and receive physical strengthening. Objective - Vital Signs Vital signs: Vital Signs Temp 96.8 F L 09/29/16 20:00 Pulse 84 09/29/16 21:40 Resp 18 09/29/16 20:00 BP 143/77 09/29/16 20:00 Pulse Ox 99 09/29/16 20:00 Intake & Output 09/29/16 09/29/16 09/30/16 06:59 18:59 06:59 Intake Total 899.00 471.8 Output Total 1075 1370 Balance -176.00 -898.2 Weight 53.2 kg 53.2 kg Intake: IV 640 226.8 0.9 240 160 Amiodarone 450 mg In 150 66.8 Dextrose 5% in Water 250 ml @ 1 MG/MIN 34.53 mls/ hr IV .Q7H31M [facility] Rx#: [id number] Vancomycin 1,250 mg In 250 Sodium Chloride 0.9% 250 ml @ 125 mls/hr IVPB ONCE ONE Rx#:[id number] Intake, IV Titration 259.00 125 Amount Amiodarone 450 mg In 259.00 Dextrose 5% in Water 250 ml @ 1 MG/MIN 34.53 mls/ hr IV .Q7H31M [facility] Rx#: [id number] Vancomycin 1,000 mg In 125 Sodium Chloride 0.9% 250 ml @ 125 mls/hr IVPB Q16H [facility] Rx#:[id number] Oral 120 Output: Urine 1075 1370 Uretheral ([place]eda) 50 Other: Voiding Method Indwelling Catheter Indwelling Catheter Toilet # Voids 1 # Bowel Movements 1 - Exam 76-year-old woman who is on BiPAP seems to be operable He has had some recent significant recent sedation HEENT: Anicteric conjunctiva are pink and moist nasal mucosa grossly intact without significant lesions, there is no thrush.dentures Neck: The neck is supple without significant lymphadenopathy or thyromegaly. Lungs: There is symmetrical air entry. Expiratory wheezes are through the lung eason. Basilar crackles. Did not cooperate for egophony. Heart: Regular rate and rhythm with an audible S1-S2, no S3 positive S4 There is no significant murmur click or rub, PMI was nondisplaced. Abdomen: Positive bowel sounds soft and nontender without palpable masses or organomegaly. There was no guarding or rebound. Extremities: the upper extremities reveals evidence of The IV site center without difficulty. Does have trace bilateral pedal edema but no ulcerations. Neuro: sitting upright. Eating her dinner. Knows she is at [facility] - Labs CBC & Chem 7: 09/29/16 04:57 09/29/16 04:57 Labs: Abnormal Lab Results - Last 24 Hours (Table) 09/25/16 09/29/16 09/29/16 Range/Units 09:28 04:57 04:57 WBC 25.3 H* (3.8-10.6) k/uL RBC 3.57 L (3.80-5.40) m/uL Hgb 10.6 L (11.4-16.0) gm/dL Hct 32.6 L (34.0-46.0) % Neutrophils # (Manual) 21.0 H (1.3-7.7) k/uL Potassium 5.2 H (3.5-5.1) mmol/L Chloride 96 L (98-107) mmol/L Carbon Dioxide 36 H (22-30) mmol/L BUN 39 H (7-17) mg/dL Glucose 125 H (74-99) mg/dL POC Glucose (mg/dL) (75-99) mg/dL Viral Test See Below H 09/29/16 09/29/16 09/29/16 Range/Units 07:40 12:50 16:56 WBC (3.8-10.6) k/uL RBC (3.80-5.40) m/uL Hgb (11.4-16.0) gm/dL Hct (34.0-46.0) % Neutrophils # (Manual) (1.3-7.7) k/uL Potassium (3.5-5.1) mmol/L Chloride (98-107) mmol/L Carbon Dioxide (22-30) mmol/L BUN (7-17) mg/dL Glucose (74-99) mg/dL POC Glucose (mg/dL) 173 H 217 H 176 H (75-99) mg/dL Viral Test 09/29/16 Range/Units 20:37 WBC (3.8-10.6) k/uL RBC (3.80-5.40) m/uL Hgb (11.4-16.0) gm/dL Hct (34.0-46.0) % Neutrophils # (Manual) (1.3-7.7) k/uL Potassium (3.5-5.1) mmol/L Chloride (98-107) mmol/L Carbon Dioxide (22-30) mmol/L BUN (7-17) mg/dL Glucose (74-99) mg/dL POC Glucose (mg/dL) 250 H (75-99) mg/dL Viral Test Microbiology - Last 24 Hours (Table) 09/25/16 09:28 Fungal Culture - Preliminary Bronchial Washings - Right Kaykay glabrata Laboratory Results WBC 25.3 k/uL (3.8-10.6) H* 09/29/16 04:57 RBC 3.57 m/uL (3.80-5.40) L 09/29/16 04:57 Hgb 10.6 gm/dL (11.4-16.0) L 09/29/16 04:57 Hct 32.6 % (34.0-46.0) L 09/29/16 04:57 MCV 91.3 fL (80.0-100.0) 09/29/16 04:57 MCH 29.6 pg (25.0-35.0) 09/29/16 04:57 MCHC 32.4 g/dL (31.0-37.0) 09/29/16 04:57 RDW 13.9 % (11.5-15.5) 09/29/16 04:57 Plt Count 286 k/uL (150-450) 09/29/16 04:57 Neutrophils % 88 % 09/28/16 04:50 Neutrophils % (Manual) 81.0 % 09/29/16 04:57 Band Neutrophils % 2.0 % 09/29/16 04:57 Lymphocytes % 6 % 09/28/16 04:50 Lymphocytes % (Manual) 10.0 % 09/29/16 04:57 Monocytes % 4 % 09/28/16 04:50 Monocytes % (Manual) 3.0 % 09/29/16 04:57 Eosinophils % 0 % 09/28/16 04:50 Basophils % 1 % 09/28/16 04:50 Metamyelocytes % 1.0 % 09/29/16 04:57 Myelocytes % 3.0 % 09/29/16 04:57 Neutrophils # 18.9 k/uL (1.3-7.7) H 09/28/16 04:50 Neutrophils # (Manual) 21.0 k/uL (1.3-7.7) H 09/29/16 04:57 Lymphocytes # 1.3 k/uL (1.0-4.8) 09/28/16 04:50 Lymphocytes # (Manual) 2.5 k/uL (1.0-4.8) 09/29/16 04:57 Monocytes # 0.9 k/uL (0-1.0) 09/28/16 04:50 Monocytes # (Manual) 0.8 k/uL (0-1.0) 09/29/16 04:57 Eosinophils # 0.1 k/uL (0-0.7) 09/28/16 04:50 Basophils # 0.1 k/uL (0-0.2) 09/28/16 04:50 Nucleated RBCs 0 /100 WBC (0-0) 09/29/16 04:57 Manual Slide Review Performed 09/29/16 04:57 Polychromasia Present 09/29/16 04:57 Hypochromasia Slight 09/26/16 09:00 Anisocytosis (manual) Present 09/29/16 04:57 PT 12.2 sec (9.0-12.0) H 09/23/16 14:14 INR 1.2 (<1.1) 09/23/16 14:14 APTT 25.4 sec (22.0-30.0) 09/23/16 14:14 Sample Site lbrach 09/26/16 23:16 ABG pH 7.37 (7.35-7.45) 09/26/16 23:16 ABG pCO2 46 mmHg (35-45) H 09/26/16 23:16 ABG pO2 81 mmHg (83-108) L 09/26/16 23:16 ABG HCO3 26 mmol/L (21-25) H 09/26/16 23:16 ABG O2 Saturation 96.0 % (94-97) 09/26/16 23:16 ABG Base Excess 0.7 mmol/L 09/26/16 23:16 FiO2 60 % 09/26/16 23:16 Sodium 137 mmol/L (137-145) 09/29/16 04:57 Potassium 5.2 mmol/L (3.5-5.1) H 09/29/16 04:57 Chloride 96 mmol/L (98-107) L 09/29/16 04:57 Carbon Dioxide 36 mmol/L (22-30) H 09/29/16 04:57 Anion Gap 5 mmol/L 09/29/16 04:57 BUN 39 mg/dL (7-17) H 09/29/16 04:57 Creatinine 0.71 mg/dL (0.52-1.04) 09/29/16 04:57 Est GFR (MDRD) Af Amer >60 (>60 ml/min/1.73 sqM) 09/29/16 04:57 Est GFR (MDRD) Non-Af >60 (>60 ml/min/1.73 sqM) 09/29/16 04:57 Glucose 125 mg/dL (74-99) H 09/29/16 04:57 POC Glucose (mg/dL) 250 mg/dL (75-99) H 09/29/16 20:37 POC Glu Drill Sharpener Operator FLAVIO [place] 09/29/16 20:[address] Glu mg/dL 123 mg/dL 09/24/16 08:01 Hemoglobin A1c 5.9 % (4.2-6.1) 09/24/16 08:01 Plasma Lactic Acid Imer 2.0 mmol/L (0.7-2.0) 09/28/16 07:15 Calcium 8.8 mg/dL (8.4-10.2) 09/29/16 04:57 Phosphorus 3.9 mg/dL (2.5-4.5) 09/29/16 04:57 Magnesium 2.1 mg/dL (1.6-2.3) 09/29/16 04:57 Total Bilirubin 0.4 mg/dL (0.2-1.3) 09/27/16 04:25 AST 60 U/L (14-36) H 09/27/16 04:25 ALT 55 U/L (9-52) H 09/27/16 04:25 Alkaline Phosphatase 80 U/L (38-126) 09/27/16 04:25 Total Creatine Kinase 49 U/L (30-135) 09/23/16 14:14 CK-MB (CK-2) 0.8 ng/mL (0.0-2.4) 09/23/16 14:14 CK-MB (CK-2) Rel Index 1.6 09/23/16 14:14 Troponin I <0.012 ng/mL (0.000-0.034) 09/23/16 14:14 NT-Pro-B Natriuret Pep 33743 pg/mL 09/27/16 04:25 Total Protein 6.2 g/dL (6.3-8.2) L 09/27/16 04:25 Albumin 3.3 g/dL (3.5-5.0) L 09/27/16 04:25 Urine Color Light Yellow 09/26/16 19:20 Urine Appearance Clear (Clear) 09/26/16 19:20 Urine pH 5.0 (5.0-8.0) 09/26/16 19:20 Ur Specific Welch 1.005 (1.001-1.035) 09/26/16 19:20 Urine Protein Negative (Negative) 09/26/16 19:20 Urine Glucose (UA) Negative (Negative) 09/26/16 19:20 Urine Ketones Negative (Negative) 09/26/16 19:20 Urine Blood Negative (Negative) 09/26/16 19:20 Urine Nitrite Negative (Negative) 09/26/16 19:20 Urine Bilirubin Negative (Negative) 09/26/16 19:20 Urine Urobilinogen <2.0 mg/dL (<2.0) 09/26/16 19:20 Ur Leukocyte Esterase Negative (Negative) 09/26/16 19:20 Urine RBC 14 /hpf (0-5) H 09/23/16 14:35 Urine WBC 13 /hpf (0-5) H 09/23/16 14:35 Ur Squamous Epith Cells 2 /hpf (0-4) 09/23/16 14:35 Urine Bacteria Rare /hpf (None) H 09/23/16 14:35 Urine Mucus Rare /hpf (None) H 09/23/16 14:35 Influenza Type A RNA Not Detected (Not Detectd) 09/23/16 13:40 Influenza Type B (PCR) Not Detected (Not Detectd) 09/23/16 13:40 Virus Source See Below 09/25/16 09:28 Viral Test See Below H 09/25/16 09:28 Virus Analysis Interp See Below 09/25/16 09:28 Miscellaneous Test Pneumocytis by PCR 09/25/16 09:28 Misc Test Result See comment 09/25/16 09:28 Microbiology 09/23/16 14:14 Blood Blood Culture - Final No Growth after 144 hours 09/25/16 09:28 Bronchial Washings - Right Fungal Culture - Preliminary Kaykay glabrata 09/26/16 19:20 Urine,Catheterized Urine Culture - Final 09/25/16 09:28 Bronchial Washings - Right Gram Stain - Final 09/25/16 09:28 Bronchial Washings - Right Bronchial Washings Culture - Final Methicillin resist S. aureus 09/25/16 09:28 Bronchial Washings - Right Acid Fast Bacilli Smear - Final 09/25/16 09:28 Bronchial Washings - Right Acid Fast Bacilli Culture - Preliminary 09/23/16 13:40 Urine,Voided Urine Culture - Final Assessment and Plan (1) Staphylococcus aureus pneumonia Narrative/Plan: 76-year-old woman that has a history of significant underlying COPD that is oxygen dependent is doing relatively well as of late. Was able to travel to the [facility]. Did have a bout of bronchitis when she was at her home in [place]. However now is developed significant pneumonia. With respiratory failure. She's had a bronchoscopy performed. Some purulent secretions werefound and staph aureus, MRSA has now been isolated. Vancomycin has been added asantibiotic therapy. Rocephin will continue his azithromycin was discontinued. She has significant leukocytosis and response to her pneumonia. Altered mental status on the basis of Versed and underlying sepsis from her pneumonia. She's also had difficulty with intermittent pulmonary edema requiring some diuretics and then hypotension was from further fluids adjustment of her medications is being performed and seemed to be bit better this afternoon. She is evidence of lung cancer with history of radiation therapy. She has an acute pneumonia at this present time with staff and hopefully with treatment will have some further improvement. SASI isolate. Vancomycin is appropriate. This will be continued. will receive a 14 day course of antibiotic therapy. with vancomycin PICC line has been placed. Tolerating it well. Status: Acute (2) COPD with acute lower respiratory infection Status: Acute (3) Leukocytosis Status: Acute
--- NOTE | 2016-09-29 22:05 | PN ---
DATE OF SERVICE: 09/29/2016 PRESENTING COMPLAINT: Difficulty breathing and fevers. INTERVAL HISTORY: This is a 76-year-old female who presented with difficulty breathing and fevers. Patient has had a complicated course with difficulty breathing, productive cough and significant hypoxia. Patient was found to be fluid-overloaded and received a dose of Lasix and subsequently was sent to the intensive care unit. While in the ICU patient developed atrial fibrillation, for which Cardiology continues to see the patient. Of note, patient had a bronchoscopy which revealed no endotracheal lesions. Culture results from the bronchoscopy revealed MRSA. Today patient is sitting up in bed, awake, alert. Family member is at the bedside. Patient is very interactive, conversant and participatory. Review of systems done for constitutional, cardiovascular, gastrointestinal, pulmonary, with relevant findings as above. CURRENT MEDICATIONS: 1. [place]. 2. Albuterol. 3. Xanax. 4. Aspirin. 5. Dulcolax. 6. Pulmicort. 7. Pletal. 8. Plavix. 9. Flexeril. 10. Diltiazem. 11. Lovenox. 12. Lasix. 13. Neurontin. 14. Humalog insulin. 15. Ativan. 16. Melatonin. 17. Solu-Medrol. 18. Lopressor. 19. Protonix. 20. Senokot. 21. Vancomycin. 22. Erythromycin. PHYSICAL EXAMINATION: VITAL SIGNS: Temperature 97.5, pulse 72, respiratory rate 15, blood pressure 144/61, oxygen saturation 94% on 2 L nasal cannula. GENERAL APPEARANCE: Patient sitting up in bed, family member at the bedside. Calm, cooperative. No acute distress noted or voiced. Patient very aware of how she behaved in previous days and commenting on how very tired she feels. EYES: Pupils equal. Conjunctivae normal. NECK: JVD not raised. Mass not palpable. LUNGS: Diminished breath sounds bilaterally, right more than left. RESPIRATORY: Fair airway clearance. CARDIOVASCULAR: S1, S2 regular. Patient was formerly in atrial fibrillation; now has converted to sinus rhythm. No edema noted. ABDOMEN: Soft, nontender. Liver and spleen not palpable. PSYCHIATRIC: Alert and oriented x3. Mood and affect are normal. INVESTIGATIONS: White blood cell count 25.3. Potassium 5.2. BUN 39, creatinine 0.71. Chest x-ray dated 09/29/16 reveals similarities to prior exams. There may be an interval increase in basilar atelectasis and effusion. Correlation should be made for pneumonia; follow up to resolution. ASSESSMENT: 1. Sepsis secondary to right upper lobe pneumonia, community-acquired in nature. 2. History of lung carcinoma on the left lobe per Dr. Guillaume. 3. New-onset atrial fibrillation. Patient has now converted to sinus rhythm. 4. Chronic obstructive pulmonary disease in an ex-smoker. 5. Acute on chronic congestive heart failure with preserved function. 6. Coronary artery disease. 7. Peripheral artery disease. 8. Dyslipidemia. PLAN: Staph aureus noted on BAL washings. Vancomycin added to antibiotic regimen. Continue Lasix IV twice a day. Cardiology recommends continuation of IV Lasix, switching anticoagulation to oral anticoagulation. Continue Protonix for GI prophylaxis. Continue breathing treatments every 2 hours p.r.n. as well as Pulmicort. Patient was seen and examined by nurse practitioner Tena Lovelace and all elements of the case discussed with attending, Dr. Rubi.
[2016-09-29] MEDS: methylPREDNISolone SOD SUCCI 40 MG/ML 1 ML VIAL IV SCH (22:51)
[2016-09-30 06:20] LABS: Glucose,Whole Blood 151 mg/dL (75-99)
[2016-09-30] MEDS: PANTOPRAZOLE 40 MG TABLET PO SCH (06:30)
[2016-09-30] MEDS: INSULIN LISPRO (humaLOG) 300 UNIT/3 ML VIAL SQ SCH ×5 (06:38→21:10)
[2016-09-30] MEDS ORDERED: VANCOMYCIN TROUGH DUE 1 EACH MISC MISCELLANE ONE (07:00)
[2016-09-30 07:37] LABS: CH 30.2; CHCM 32.2; HCT 35.2 % (34.0-46.0); HDW 2.39; HGB 10.7 gm/dL (11.4-16.0); Immature Gran Flag Moderate; MCH 28.6 pg (25.0-35.0); MCHC 30.4 g/dL (31.0-37.0); MCV 94.1 fL (80.0-100.0); Mean Platelet Volume 7.4; RBC 3.74 m/uL (3.80-5.40); RDW 13.9 % (11.5-15.5); WBC 20.6 k/uL (3.8-10.6); WBC (Perox) 22.13
--- NOTE | 2016-09-30 07:52 | PN ---
DATE OF SERVICE: 09/29/2016 ( ) This patient was seen and examined by me. I also discussed the care with the nurse practitioner whose note I reviewed. The patient is seen sitting up in bed, has reverted to sinus rhythm. Patient also has got MRSA from bronchoscopy culture, did tolerate some diet. Daughter is at the bedside. On examination, afebrile, pulse 71, respirations 16, blood pressure 150/76. LUNGS: Decreased breath sounds. Mild wheezing. CARDIOVASCULAR: First and second sounds normal. No edema. PSYCHIATRY: Alert and oriented x3. INVESTIGATIONS: White count 25.3, hemoglobin 10.6, potassium 5.2. ASSESSMENT: 1. Right upper lobe pneumonia secondary to Methicillin-resistant Staph aureus community acquired causing sepsis on presentation with some clinical response. 2. History of lung cancer on the left lobe per Dr. Guillaume. 3. Paroxysmal atrial fibrillation patient now in sinus rhythm. 4. Chronic obstructive pulmonary disease in an ex-smoker. 5. Acute on chronic congestive heart failure exacerbation from systolic dysfunction; ejection fraction 40%, from underlying coronary artery disease. 6. Coronary artery disease with prior history of stent. 7. Peripheral artery disease, prior history of stent. 8. Hyperlipidemia. PLAN: Continue current medication and treatment plan, including antibiotics to include vancomycin. Care was discussed with the patient and niece at the bedside. Will add Aldactone 25 mg too.
--- NOTE | 2016-09-30 08:01 | XR ---
EXAMINATION TYPE: XR chest 1V DATE OF EXAM: 09/30/2016 7:30 AM HISTORY: Shortness of breath. COMPARISON: None. TECHNIQUE: Single view of the chest is submitted. FINDINGS: Demonstrated are scattered senescent parenchymal change. Left-sided PICC line is unchanged in positi on. Persistent patchy infiltrates throughout the right midlung zone and right lower lobe with associated parapneumonic effusion. Mild patchy density at the left lung base. The heart is stable. Hilar and mediastinal structures are within normal limits. Degenerative changes are seen of the dorsal spine. IMPRESSION: 1. Mildly progressive pneumonia. Follow-up until resolution recommended.
[2016-09-30 08:28] LABS: Anion Gap 10 mmol/L; Blood Urea Nitrogen 39 mg/dL (7-17); Calcium 9.3 mg/dL (8.4-10.2); Carbon Dioxide 38 mmol/L (22-30); Chloride 92 mmol/L (98-107); Glucose 131 mg/dL (74-99); Magnesium 2.1 mg/dL (1.6-2.3); Non-African American GFR(MDRD) 58 (>60 ml/min/1.73 sqM); Phosphorous 4.9 mg/dL (2.5-4.5); Potassium 4.3 mmol/L (3.5-5.1); Sodium 140 mmol/L (137-145)
[2016-09-30] MEDS: BUDESONIDE 0.5 MG/2 ML NEBU INHALATION SCH ×2 (08:54→19:49)
[2016-09-30] MEDS: LEVALBUTEROL NEB (CONC) 1.25 MG/0.5 ML AMP INHALATION SCH ×4 (08:54→19:50)
[2016-09-30] MEDS: IPRATROPIUM 0.5 MG/2.5 ML NEBU INHALATION SCH ×4 (08:54→19:50)
[2016-09-30] MEDS: TIOTROPIUM 18 MCG/PUFF INHALER INHALATION SCH (08:54)
[2016-09-30] MEDS: methylPREDNISolone SOD SUCCI 40 MG/ML 1 ML VIAL IV SCH ×2 (09:13→16:28)
[2016-09-30] MEDS: VANCOMYCIN 1,000 MG in SODIUM CHLORIDE 0.9% 250 ML IVPB SCH (09:13)
[2016-09-30] MEDS: ALPRAZolam 0.5 MG TAB PO SCH ×3 (09:25→21:07)
[2016-09-30] MEDS: AMIODARONE 200 MG TAB PO SCH ×2 (09:25→21:08)
[2016-09-30] MEDS: METOPROLOL TARTRATE 50 MG TAB PO SCH ×3 (09:26→21:09)
[2016-09-30] MEDS: APIXABAN 2.5 MG TABLET PO SCH ×2 (09:26→21:09)
[2016-09-30] MEDS: SPIRONOLACTONE 25 MG TAB PO SCH (09:26)
[2016-09-30] MEDS: CLOPIDOGREL 75 MG TAB PO SCH ×2 (09:26→09:39)
[2016-09-30] MEDS: ASPIRIN 81 MG CHEW PO SCH (09:26)
[2016-09-30] MEDS: NYSTATIN 100,000 UNIT/ML SUSP 500,000 UNIT/5 ML CUP PO SCH ×4 (09:27→21:09)
[2016-09-30] MEDS: FUROSEMIDE 10 MG/ML 4 ML VIAL IV SCH ×2 (09:28→21:09)
--- NOTE | 2016-09-30 10:37 | P.PN ---
Subjective Physical 76-year-old female patient who is being evaluated and examined today. Patient came into the emergency room for generalized weakness over the last few days as well as decreased appetite and shortness of breath with cough that is productive with green sputum. She was also noted to have a temperature 101.1 and was tachycardic. A chest x-ray was performed and demonstrated a right upper lobe pneumonia. Patient was given IV fluids along with other medications and her heart rate and fever both improved. The patient does have a history of lung carcinoma with status post radiation for 5 years. The patient and the family were both told that she was in remission in 2013 after a PET scan. Patient does have a history of smoking however she stated she stopped smoking a few months ago. A CT of the chest was obtained and reveals mild emphysematous change with cavitary masslike lesions to the right upper lobe favoring focal infectious process or cavitary pneumonia, recurrent neoplasia some is not excluded but felt less likely. the patient was transferred to the intensive care unit September 26, increasing shortness of breath, fluid overload with a component of congestive heart failure. the patient was placed on BiPAP and received a few doses of Lasix. Patient underwent a bronchoscopy on . The patient also developed atrial fibrillation and cardiology is on consult. Currently she is hemodynamically stable, and has been downgraded to the selective care unit. Upon examination the patient is resting up on the side of the bed, she is afebrile. Her oxygen demands have remained at 2 L. She continues to have a cough which is productive with yellow sputum, however slowly lessening in frequency. Objective - Vital Signs Vital signs: Vital Signs Temp 97 F L 09/30/16 09:25 Pulse 79 09/30/16 09:40 Resp 17 09/30/16 04:00 BP 146/71 09/30/16 09:40 Pulse Ox 98 09/30/16 09:25 Intake & Output 09/29/16 09/30/16 09/30/16 18:59 06:59 18:59 Intake Total 471.8 450 360 Output Total 1370 600 Balance -898.2 -150 360 Weight 53.2 kg 51.5 kg Intake: IV 226.8 200 0.9 160 200 Amiodarone 450 mg In 66.8 Dextrose 5% in Water 250 ml @ 1 MG/MIN 34.53 mls/ hr IV .Q7H31M [facility] Rx#: [id number] Intake, IV Titration 125 250 Amount Vancomycin 1,000 mg In 125 250 Sodium Chloride 0.9% 250 ml @ 125 mls/hr IVPB Q16H [facility] Rx#:[id number] Oral 120 360 Output: Urine 1370 600 Uretheral (Mos[place]eda) 50 Other: Voiding Method Indwelling Catheter Toilet # Voids 1 3 # Bowel Movements 1 - Exam GENERAL EXAM: Alert, active, comfortable in no apparent distress. HEAD: Normocephalic. EYES: Normal reaction of pupils, equal size. NOSE: Clear with pink turbinates. THROAT: No erythema or exudates. NECK: No masses, no JVD. CHEST: No chest wall deformity. LUNGS: Lung sounds diminished , bilaterally. CVS: S1 and S2 normal with no audible mumurs, irregular rhythm. ABDOMEN: No hepatosplenomegaly, normal bowel sounds, no guarding or rigidity. EXTREMITIES: No edema noted, pedal pulses palpable. SKIN: No rashes CENTRAL NERVOUS SYSTEM: No focal deficits, tone is normal in all 4 extremities. - Labs CBC & Chem 7: 09/30/16 06:40 09/30/16 06:40 Labs: Abnormal Lab Results - Last 24 Hours (Table) 09/29/16 09/29/16 09/29/16 Range/Units 12:50 16:56 20:37 WBC (3.8-10.6) k/uL RBC (3.80-5.40) m/uL Hgb (11.4-16.0) gm/dL MCHC (31.0-37.0) g/dL Chloride (98-107) mmol/L Carbon Dioxide (22-30) mmol/L BUN (7-17) mg/dL Glucose (74-99) mg/dL POC Glucose (mg/dL) 217 H 176 H 250 H (75-99) mg/dL Phosphorus (2.5-4.5) mg/dL 09/30/16 09/30/16 09/30/16 Range/Units 06:18 06:40 06:40 WBC 20.6 H (3.8-10.6) k/uL RBC 3.74 L (3.80-5.40) m/uL Hgb 10.7 L (11.4-16.0) gm/dL MCHC 30.4 L (31.0-37.0) g/dL Chloride 92 L (98-107) mmol/L Carbon Dioxide 38 H (22-30) mmol/L BUN 39 H (7-17) mg/dL Glucose 131 H (74-99) mg/dL POC Glucose (mg/dL) 151 H (75-99) mg/dL Phosphorus 4.9 H (2.5-4.5) mg/dL Microbiology - Last 24 Hours (Table) 09/25/16 09:28 Fungal Culture - Preliminary Bronchial Washings - Right Kaykay glabrata Assessment and Plan Plan: Assessment Sepsis secondary to community-acquired pneumonia in the right upper lobe acute on chronic hypoxic respiratory failure chronic obstructive pulmonary disease coronary artery disease Peripheral arterial disease Dyslipidemia History of lung cancer Peripheral neuropathy Hypertension New-onset atrial fibrillation Plan Medications have been reviewed and will be continued as ordered. We will continue with antibiotics and IV steroids. We will taper down the steroids. We will initiate and encourage incentive spirometer. Continue with supplemental oxygen, nebulizer treatments, pulmonary hygiene and supportive care. albuterol has been switched to Xopenex due to new-onset A. fib. GI/DVT prophylaxis. In regards to discharge planning the patient seems to be in agreement to go to an ECF when appropriate she will be discharged with or PICC line and IV antibiotics. We will continue to monitor labs/results and adjust treatment as necessary. I performed an examination of the patient and discussed their management with the nurse practitioner. I have reviewed the nurse practitioner's note and agree with the documented findings and plan of care.
[2016-09-30 10:53] LABS: Add Differential Manual Differential
[2016-09-30 10:57] LABS: Band Neutrophils % 2.5 %; Myelocytes % 3.5 %; Nucleated Red Blood Cells 0 /100 WBC (0-0); Total Cells Counted 200
[2016-09-30 11:20] VITALS: BMI 18.8
[2016-09-30 11:43] LABS: Glucose,Whole Blood 305 mg/dL (75-99)
[2016-09-30] MEDS ORDERED: INSULIN NPH 300 UNIT/3 ML VIAL SQ ONE (12:45)
[2016-09-30] MEDS: MULTIVITAMINS, THERA 1 EACH TAB PO SCH (12:53)
[2016-09-30] MEDS: VALSARTAN 80 MG TAB PO SCH (12:53)
--- NOTE | 2016-09-30 13:25 | PN ---
DATE OF ADMISSION: 09/23/2016 DATE OF SERVICE: 09/30/2016 PRESENTING COMPLAINT: Difficulty breathing and fevers. INTERVAL HISTORY: This is a 76-year-old female who presented with difficulty breathing and fevers. Patient has a complicated course with difficulty breathing, productive cough and significant hypoxia. Patient found to be fluid overloaded and received a dose, Lasix and subsequently was sent to the intensive care unit. During her time in the ICU, she developed atrial fibrillation. Patient additionally had a bronchoscopy, which revealed no endotracheal lesions. However, the cultures came back positive for MRSA. Today patient is sitting up in bed, awake, alert. Looks well, stating that she feels too. Review of systems done for constitutional, cardiovascular, gastrointestinal, pulmonary with relevant findings as above. CURRENT MEDICATIONS: Albuterol, Xanax, Pulmicort. PHYSICAL EXAM: VITAL SIGNS: Temperature 97.0, pulse 81, blood pressure 136/59, oxygen saturation 98% on 2 L nasal cannula. GENERAL APPEARANCE: Patient is lying in bed, states feeling well, calm, cooperative. No acute distress noted or voiced. States she slept well. EYES: Pupils equal. Conjunctivae normal. NECK: JVD not raised. Mass not palpable. LUNGS: Diminished breath sounds bilaterally. RESPIRATORY: Fair airway clearance. CARDIOVASCULAR: S1, S2 regular. Patient formally in atrial fibrillation now is converted to sinus rhythm. Rate controlled. No edema noted. ABDOMEN: Soft, nontender. Liver and spleen not palpable. PSYCHIATRIC: Alert and oriented x3. Mood and affect are normal. INVESTIGATIONS: White blood cell count 20.6, down from 25.3 on 09/29, hemoglobin 10, 7. BUN 39, creatinine 0.93. Blood glucose 131. Magnesium ( ). Chest x-ray reveals mild mildly progressive pneumonia. ASSESSMENT: 1. Right upper lobe pneumonia secondary to methicillin-resistant Staphylococcus aureus, community acquired causing sepsis on presentation with some clinical response. 2. History of lung cancer on the left lobe per Dr. Guillaume. 3. Paroxysmal atrial fibrillation. Patient now in sinus rhythm. 4. Chronic obstructive pulmonary disease in an ex-smoker. 5. Acute on chronic congestive heart failure exacerbation from systolic dysfunction, ejection fraction 40% from underlying coronary artery disease. 6. Coronary artery disease with prior history of stents. 7. Peripheral artery disease, prior history of stent. 8. Hyperlipidemia. PLAN: Continue current medication and treatment plan including antibiotics to include vancomycin. Likely antibiotic therapy will continue once patient is discharged per ID. Care was discussed with the patient at the bedside.
--- NOTE | 2016-09-30 15:29 | P.PN ---
Subjective Principal diagnosis: CHF This is a pleasant 76-year-old female with past medical history significant for coronary artery disease, PAD, admitted to the hospital initially with pneumonia. During that hospitalization she went into atrial fibrillation with rapid ventricular response and secondary to that went into some congestive heart failure as well. She continues to be on IV Lasix, her weight is down 2 kg today. Patient is currently on Eliquis 2-1/2 mg one tablet by mouth twice a day for anticoagulation. WBC20.6, HEMOGLOBIN 10.7, POTASSIUM 4.3, BUN 39, CREATININE 0.9. She does state overall that she's feeling significantly better today. Repeat chest x-ray performed today reveals mildly progressive pneumonia. Objective - Vital Signs Vital signs: Vital Signs Temp 97.7 F 09/30/16 11:43 Pulse 86 09/30/16 15:24 Resp 20 09/30/16 11:43 BP 122/67 09/30/16 11:43 Pulse Ox 99 09/30/16 11:43 Intake & Output 09/29/16 09/30/16 09/30/16 18:59 06:59 18:59 Intake Total 471.8 450 1010 Output Total 1370 600 600 Balance -898.2 -150 410 Weight 53.2 kg 51.5 kg 51.5 kg Intake: IV 226.8 200 160 0.9 160 200 160 Amiodarone 450 mg In 66.8 Dextrose 5% in Water 250 ml @ 1 MG/MIN 34.53 mls/ hr IV .[id number] [facility] Rx#: [id number] Intake, IV Titration 125 250 250 Amount Vancomycin 1,000 mg In 125 250 250 Sodium Chloride 0.9% 250 ml @ 125 mls/hr IVPB Q16H [facility] Rx#:[id number] Oral 120 600 Output: Urine 1370 600 600 Uretheral ([place]) 50 Other: Voiding Method Indwelling Catheter Toilet Toilet # Voids 1 3 # Bowel Movements 1 - Exam PHYSICAL EXAMINATION: HEENT: Head is atraumatic, normocephalic. Pupils equal, round. Neck is supple. There is no elevated jugular venous pressure. HEART EXAMINATION: Heart S1, S2 normal. No murmur or gallop heard. CHEST EXAMINATION: Lungs are clear fine crackles to bilateral bases. No chest wall tenderness is noted on palpation or with deep breathing. ABDOMEN: Soft, nontender. Bowel sounds are heard. No organomegaly noted. EXTREMITIES: 2+ peripheral pulses with no evidence of peripheral edema and no calf tenderness noted. NEUROLOGIC patient is awake, alert and oriented -3. . - Labs CBC & Chem 7: 09/30/16 06:40 09/30/16 06:40 Labs: Abnormal Lab Results - Last 24 Hours (Table) 09/29/16 09/29/16 09/30/16 Range/Units 16:56 20:37 06:18 WBC (3.8-10.6) k/uL RBC (3.80-5.40) m/uL Hgb (11.4-16.0) gm/dL MCHC (31.0-37.0) g/dL Neutrophils # (Manual) (1.3-7.7) k/uL Chloride (98-107) mmol/L Carbon Dioxide (22-30) mmol/L BUN (7-17) mg/dL Glucose (74-99) mg/dL POC Glucose (mg/dL) 176 H 250 H 151 H (75-99) mg/dL Phosphorus (2.5-4.5) mg/dL 09/30/16 09/30/16 09/30/16 Range/Units 06:40 06:40 11:42 WBC 20.6 H (3.8-10.6) k/uL RBC 3.74 L (3.80-5.40) m/uL Hgb 10.7 L (11.4-16.0) gm/dL MCHC 30.4 L (31.0-37.0) g/dL Neutrophils # (Manual) 17.6 H (1.3-7.7) k/uL Chloride 92 L (98-107) mmol/L Carbon Dioxide 38 H (22-30) mmol/L BUN 39 H (7-17) mg/dL Glucose 131 H (74-99) mg/dL POC Glucose (mg/dL) 305 H (75-99) mg/dL Phosphorus 4.9 H (2.5-4.5) mg/dL Microbiology - Last 24 Hours (Table) 09/25/16 09:28 Fungal Culture - Preliminary Bronchial Washings - Right Kaykay glabrata Assessment and Plan (1) Systolic CHF, acute on chronic Status: Acute (2) NICM (nonischemic cardiomyopathy) Status: Acute (3) Paroxysmal a-fib Status: Acute (4) CAD (coronary artery disease) Status: Acute (5) PAD (peripheral artery disease) Status: Acute Plan: From cardiology's perspective, we'll recommend to continue current dose of IV Lasix for 24 hours. We will check lytes BUN and creatinine in the morning. And is remaining in normal sinus rhythm. DNP note has been reviewed, I agree with a documented findings and plan of care. Patient was seen and examined.
[2016-09-30 16:31] LABS: Glucose,Whole Blood 142 mg/dL (75-99)
[2016-09-30 21:00] LABS: Glucose,Whole Blood 181 mg/dL (75-99)
[2016-09-30] MEDS: HYDROcodone/APAP 5-325MG 1 EACH TAB PO PRN (21:07)
[2016-09-30] MEDS: GABAPENTIN 300 MG CAP PO SCH (21:08)
[2016-09-30] MEDS: ATORVASTATIN 80 MG TAB PO SCH (21:09)
[2016-09-30] MEDS: INSULIN GLARGINE 100 UNIT/ML 10 ML VIAL SQ SCH (21:09)
[2016-09-30] MEDS: MELATONIN 5 MG TABLET PO SCH (21:09)
--- NOTE | 2016-09-30 21:36 | P.PN ---
Subjective Principal diagnosis: Pneumonia 76 -year-old Woman who presents to Hospital with a relatively short history of increasing cough and sputum production that was thick and yellow in nature. The patient's daughter is present and relates that short time ago they were doing well and had traveled to the [facility] with the patient did very well. She also routinely [facility]. She did have difficulties while she was in [place] with a bronchial infection. It was treated and she was well enough to travel to the [facility] without illnesses. Patient's also relates that a week prior there were out shopping and doing well. The patient has had a significant change of her status and has developed fever increasing shortness of breath and sputum production. Is brought in the hospital she had ongoing fever and then developed some respiratory failure requiring transient intensive care unit and utilization of BiPAP. She remains evidence of the significant shortness of breath and metabolic encephalopathy but does seem to be comfortable at this point in time. She is improved today. Sitting upright. ate her lunch. Has on a blouse other than hospital gown Does not have on BiPAP. more awake and alert. Improved confusion. patient is aware that she'll be going to rehab after discharge to complete a course of antibiotic therapy and receive physical strengthening. Objective - Vital Signs Vital signs: Vital Signs Temp 96.9 F L 09/30/16 16:23 Pulse 80 09/30/16 19:53 Resp 16 09/30/16 16:23 BP 136/72 09/30/16 16:23 Pulse Ox 97 09/30/16 16:23 Intake & Output 09/30/16 09/30/16 10/01/16 06:59 18:59 06:59 Intake Total 450 3130 Output Total 600 1100 Balance -150 2030 Weight 51.5 kg 51.5 kg Intake: IV 200 160 0.9 200 160 Intake, IV Titration 250 250 Amount Vancomycin 1,000 mg In 250 250 Sodium Chloride 0.9% 250 ml @ 125 mls/hr IVPB Q16H [facility] Rx#:[id number] Oral 2720 Output: Urine 600 1100 Other: Voiding Method Toilet Toilet # Voids 3 - Exam 76-year-old woman who is on BiPAP seems to be operable He has had some recent significant recent sedation HEENT: Anicteric conjunctiva are pink and moist nasal mucosa grossly intact without significant lesions, there is no thrush.dentures Neck: The neck is supple without significant lymphadenopathy or thyromegaly. Lungs: There is symmetrical air entry. Expiratory wheezes are through the lung eason. Basilar crackles. Did not cooperate for egophony. Heart: Regular rate and rhythm with an audible S1-S2, no S3 positive S4 There is no significant murmur click or rub, PMI was nondisplaced. Abdomen: Positive bowel sounds soft and nontender without palpable masses or organomegaly. There was no guarding or rebound. Extremities: the upper extremities reveals evidence of The IV site center without difficulty. Does have trace bilateral pedal edema but no ulcerations. Neuro: sitting upright. Eating her lunch. Knows she is at [facility] - Labs CBC & Chem 7: 09/30/16 06:40 09/30/16 06:40 Labs: Abnormal Lab Results - Last 24 Hours (Table) 09/30/16 09/30/16 09/30/16 Range/Units 06:18 06:40 06:40 WBC 20.6 H (3.8-10.6) k/uL RBC 3.74 L (3.80-5.40) m/uL Hgb 10.7 L (11.4-16.0) gm/dL MCHC 30.4 L (31.0-37.0) g/dL Neutrophils # (Manual) 17.6 H (1.3-7.7) k/uL Chloride 92 L (98-107) mmol/L Carbon Dioxide 38 H (22-30) mmol/L BUN 39 H (7-17) mg/dL Glucose 131 H (74-99) mg/dL POC Glucose (mg/dL) 151 H (75-99) mg/dL Phosphorus 4.9 H (2.5-4.5) mg/dL 09/30/16 09/30/16 09/30/16 Range/Units 11:42 16:29 20:54 WBC (3.8-10.6) k/uL RBC (3.80-5.40) m/uL Hgb (11.4-16.0) gm/dL MCHC (31.0-37.0) g/dL Neutrophils # (Manual) (1.3-7.7) k/uL Chloride (98-107) mmol/L Carbon Dioxide (22-30) mmol/L BUN (7-17) mg/dL Glucose (74-99) mg/dL POC Glucose (mg/dL) 305 H 142 H 181 H (75-99) mg/dL Phosphorus (2.5-4.5) mg/dL Laboratory Results WBC 20.6 k/uL (3.8-10.6) H 09/30/16 06:40 RBC 3.74 m/uL (3.80-5.40) L 09/30/16 06:40 Hgb 10.7 gm/dL (11.4-16.0) L 09/30/16 06:40 Hct 35.2 % (34.0-46.0) 09/30/16 06:40 MCV 94.1 fL (80.0-100.0) 09/30/16 06:40 MCH 28.6 pg (25.0-35.0) 09/30/16 06:40 MCHC 30.4 g/dL (31.0-37.0) L 09/30/16 06:40 RDW 13.9 % (11.5-15.5) 09/30/16 06:40 Plt Count 346 k/uL (150-450) 09/30/16 06:40 Neutrophils % 88 % 09/28/16 04:50 Neutrophils % (Manual) 83.0 % 09/30/16 06:40 Band Neutrophils % 2.5 % 09/30/16 06:40 Lymphocytes % 6 % 09/28/16 04:50 Lymphocytes % (Manual) 5.0 % 09/30/16 06:40 Monocytes % 4 % 09/28/16 04:50 Monocytes % (Manual) 4.0 % 09/30/16 06:40 Eosinophils % 0 % 09/28/16 04:50 Basophils % 1 % 09/28/16 04:50 Metamyelocytes % 2.0 % 09/30/16 06:40 Myelocytes % 3.5 % 09/30/16 06:40 Neutrophils # 18.9 k/uL (1.3-7.7) H 09/28/16 04:50 Neutrophils # (Manual) 17.6 k/uL (1.3-7.7) H 09/30/16 06:40 Lymphocytes # 1.3 k/uL (1.0-4.8) 09/28/16 04:50 Lymphocytes # (Manual) 1.0 k/uL (1.0-4.8) 09/30/16 06:40 Monocytes # 0.9 k/uL (0-1.0) 09/28/16 04:50 Monocytes # (Manual) 0.8 k/uL (0-1.0) 09/30/16 06:40 Eosinophils # 0.1 k/uL (0-0.7) 09/28/16 04:50 Basophils # 0.1 k/uL (0-0.2) 09/28/16 04:50 Nucleated RBCs 0 /100 WBC (0-0) 09/30/16 06:40 Manual Slide Review Performed 09/29/16 04:57 Polychromasia Present 09/29/16 04:57 Hypochromasia Slight 09/26/16 09:00 Poikilocytosis (manual Present 09/30/16 06:40 Anisocytosis (manual) Present 09/30/16 06:40 PT 12.2 sec (9.0-12.0) H 09/23/16 14:14 INR 1.2 (<1.1) 09/23/16 14:14 APTT 25.4 sec (22.0-30.0) 09/23/16 14:14 Sample Site lbra 09/26/16 23:16 ABG pH 7.37 (7.35-7.45) 09/26/16 23:16 ABG pCO2 46 mmHg (35-45) H 09/26/16 23:16 ABG pO2 81 mmHg (83-108) L 09/26/16 23:16 ABG HCO3 26 mmol/L (21-25) H 09/26/16 23:16 ABG O2 Saturation 96.0 % (94-97) 09/26/16 23:16 ABG Base Excess 0.7 mmol/L 09/26/16 23:16 FiO2 60 % 09/26/16 23:16 Sodium 140 mmol/L (137-145) 09/30/16 06:40 Potassium 4.3 mmol/L (3.5-5.1) 09/30/16 06:40 Chloride 92 mmol/L (98-107) L 09/30/16 06:40 Carbon Dioxide 38 mmol/L (22-30) H 09/30/16 06:40 Anion Gap 10 mmol/L 09/30/16 06:40 BUN 39 mg/dL (7-17) H 09/30/16 06:40 Creatinine 0.93 mg/dL (0.52-1.04) 09/30/16 06:40 Est GFR (MDRD) Af Amer >60 (>60 ml/min/1.73 sqM) 09/30/16 06:40 Est GFR (MDRD) Non-Af 58 (>60 ml/min/1.73 sqM) 09/30/16 06:40 Glucose 131 mg/dL (74-99) H 09/30/16 06:40 POC Glucose (mg/dL) 181 mg/dL (75-99) H 09/30/16 20:54 POC Glu Header Setup Operator ID Coty Ware 09/30/16 20:[address] Glu mg/dL 123 mg/dL 09/24/16 08:01 Hemoglobin A1c 5.9 % (4.2-6.1) 09/24/16 08:01 Plasma Lactic Acid Imer 2.0 mmol/L (0.7-2.0) 09/28/16 07:15 Calcium 9.3 mg/dL (8.4-10.2) 09/30/16 06:40 Phosphorus 4.9 mg/dL (2.5-4.5) H 09/30/16 06:40 Magnesium 2.1 mg/dL (1.6-2.3) 09/30/16 06:40 Total Bilirubin 0.4 mg/dL (0.2-1.3) 09/27/16 04:25 AST 60 U/L (14-36) H 09/27/16 04:25 ALT 55 U/L (9-52) H 09/27/16 04:25 Alkaline Phosphatase 80 U/L (38-126) 09/27/16 04:25 Total Creatine Kinase 49 U/L (30-135) 09/23/16 14:14 CK-MB (CK-2) 0.8 ng/mL (0.0-2.4) 09/23/16 14:14 CK-MB (CK-2) Rel Index 1.6 09/23/16 14:14 Troponin I <0.012 ng/mL (0.000-0.034) 09/23/16 14:14 NT-Pro-B Natriuret Pep 22182 pg/mL 09/27/16 04:25 Total Protein 6.2 g/dL (6.3-8.2) L 09/27/16 04:25 Albumin 3.3 g/dL (3.5-5.0) L 09/27/16 04:25 Urine Color Light Yellow 09/26/16 19:20 Urine Appearance Clear (Clear) 09/26/16 19:20 Urine pH 5.0 (5.0-8.0) 09/26/16 19:20 Ur Specific [place] 1.005 (1.001-1.035) 09/26/16 19:20 Urine Protein Negative (Negative) 09/26/16 19:20 Urine Glucose (UA) Negative (Negative) 09/26/16 19:20 Urine Ketones Negative (Negative) 09/26/16 19:20 Urine Blood Negative (Negative) 09/26/16 19:20 Urine Nitrite Negative (Negative) 09/26/16 19:20 Urine Bilirubin Negative (Negative) 09/26/16 19:20 Urine Urobilinogen <2.0 mg/dL (<2.0) 09/26/16 19:20 Ur Leukocyte Esterase Negative (Negative) 09/26/16 19:20 Urine RBC 14 /hpf (0-5) H 09/23/16 14:35 Urine WBC 13 /hpf (0-5) H 09/23/16 14:35 Ur Squamous Epith Cells 2 /hpf (0-4) 09/23/16 14:35 Urine Bacteria Rare /hpf (None) H 09/23/16 14:35 Urine Mucus Rare /hpf (None) H 09/23/16 14:35 Vancomycin Trough 15.8 ug/mL 09/30/16 06:40 Influenza Type A RNA Not Detected (Not Detectd) 09/23/16 13:40 Influenza Type B (PCR) Not Detected (Not Detectd) 09/23/16 13:40 Virus Source See Below 09/25/16 09:28 Viral Test See Below H 09/25/16 09:28 Virus Analysis Interp See Below 09/25/16 09:28 Miscellaneous Test Pneumocytis by PCR 09/25/16 09:28 Misc Test Result See comment 09/25/16 09:28 Assessment and Plan (1) Staphylococcus aureus pneumonia Narrative/Plan: 76-year-old woman that has a history of significant underlying COPD that is oxygen dependent is doing relatively well as of late. Was able to travel to the [facility]. Did have a bout of bronchitis when she was at her home in [place]. However now is developed significant pneumonia. With respiratory failure. She's had a bronchoscopy performed. Some purulent secretions werefound and staph aureus, MRSA has now been isolated. Vancomycin has been added asantibiotic therapy. Rocephin will continue his azithromycin was discontinued. She has significant leukocytosis and response to her pneumonia. Altered mental status on the basis of Versed and underlying sepsis from her pneumonia. She's also had difficulty with intermittent pulmonary edema requiring some diuretics and then hypotension was from further fluids adjustment of her medications is being performed and seemed to be bit better this afternoon. She is evidence of lung cancer with history of radiation therapy. She has an acute pneumonia at this present time with MRSA and hopefully with treatment will have some further improvement. Vancomycin is appropriate. This will be continued. will receive a 14 day course of antibiotic therapy. with vancomycin PICC line has been placed. Tolerating it well. Status: Acute (2) COPD with acute lower respiratory infection Status: Acute (3) Leukocytosis Status: Acute
[2016-10-01] MEDS: acetaZOLAMIDE 250 MG TAB PO SCH ×3 (02:24→21:13)
[2016-10-01] MEDS: methylPREDNISolone SOD SUCCI 40 MG/ML 1 ML VIAL IV SCH ×3 (02:25→16:37)
[2016-10-01] MEDS: VANCOMYCIN 1,000 MG in SODIUM CHLORIDE 0.9% 250 ML IVPB SCH ×2 (02:33→16:37)
[2016-10-01 06:21] LABS: Glucose,Whole Blood 112 mg/dL (75-99)
[2016-10-01] MEDS: INSULIN LISPRO (humaLOG) 300 UNIT/3 ML VIAL SQ SCH ×7 (06:30→21:15)
[2016-10-01 06:51] LABS: CH 30.4; CHCM 32.4; HCT 34.5 % (34.0-46.0); HDW 2.44; Immature Gran Flag Moderate; MCHC 31.8 g/dL (31.0-37.0); MCV 94.2 fL (80.0-100.0); Mean Platelet Volume 7.3; RBC 3.66 m/uL (3.80-5.40); RDW 13.7 % (11.5-15.5); WBC 22.9 k/uL (3.8-10.6); WBC (Perox) 22.34
[2016-10-01 07:06] LABS: Anion Gap 6 mmol/L; Blood Urea Nitrogen 36 mg/dL (7-17); Calcium 8.9 mg/dL (8.4-10.2); Carbon Dioxide 36 mmol/L (22-30); Chloride 93 mmol/L (98-107); Glucose 102 mg/dL (74-99); Magnesium 2.1 mg/dL (1.6-2.3); Non-African American GFR(MDRD) 54 (>60 ml/min/1.73 sqM); Phosphorous 4.7 mg/dL (2.5-4.5); Potassium 4.3 mmol/L (3.5-5.1); Sodium 135 mmol/L (137-145)
[2016-10-01] MEDS: PANTOPRAZOLE 40 MG TABLET PO SCH (07:26)
--- NOTE | 2016-10-01 08:07 | PN ---
DATE OF SERVICE: 09/30/2016 ATTENDING NOTE: This patient was seen and examined by me earlier today. I reviewed the nose of my nurse practitioner, Rosa Mariawallace and agree with the same except for the changes below. This is a patient here with MRSA pneumonia, atrial fibrillation, COPD. Feels a bit better. Tolerating a diet. Also had CHF exacerbation, patient feels a bit better and patient was switched over to normal sinus rhythm. On examination, lungs decreased breath sounds. CARDIOVASCULAR: First and second sounds are normal, no edema. INVESTIGATIONS: Telemetry shows normal sinus rhythm. White count 20.6, hemoglobin 10.7. Accu-Cheks are noted. ASSESSMENT: 1. Right upper lobe pneumonia secondary to methicillin-resistant Staphylococcus aureus, community-acquired. ( ) on presentation with clinical improvement. 2. History of lung cancer in the left upper lobe by Dr. Guillaume. 3. Paroxysmal atrial fibrillation. Patient back in sinus rhythm. 4. Chronic obstructive pulmonary disease in an ex-smoker. 5. Acute on chronic congestive heart exacerbation from systolic dysfunction; ejection fraction 40%, from underlying coronary artery disease, now improved. 6. Coronary artery disease with prior history of stent. 7. Peripheral artery disease with prior history of stent. 8. Hyperlipidemia. PLAN: Patient is also on Cordarone, Eliquis for anticoagulation. Will switch the patient to oral prednisone.
[2016-10-01 08:34] LABS: Add Differential Manual Differential
[2016-10-01 08:40] LABS: Manual Review Performed; Myelocytes % 5.5 %; Nucleated Red Blood Cells 0 /100 WBC (0-0); Total Cells Counted 200; Toxic Granulation Present
[2016-10-01] MEDS: AMIODARONE 200 MG TAB PO SCH ×2 (08:46→21:13)
[2016-10-01] MEDS: APIXABAN 2.5 MG TABLET PO SCH ×2 (08:46→21:13)
[2016-10-01] MEDS: METOPROLOL TARTRATE 50 MG TAB PO SCH ×3 (08:46→21:14)
[2016-10-01] MEDS: SPIRONOLACTONE 25 MG TAB PO SCH (08:46)
[2016-10-01] MEDS: ASPIRIN 81 MG CHEW PO SCH (08:46)
[2016-10-01] MEDS: CLOPIDOGREL 75 MG TAB PO SCH (08:47)
[2016-10-01] MEDS: NYSTATIN 100,000 UNIT/ML SUSP 500,000 UNIT/5 ML CUP PO SCH ×4 (08:48→21:14)
[2016-10-01] MEDS: FUROSEMIDE 10 MG/ML 4 ML VIAL IV SCH (08:49)
[2016-10-01] MEDS: ALPRAZolam 0.5 MG TAB PO SCH ×3 (08:50→21:19)
[2016-10-01] MEDS: LEVALBUTEROL NEB (CONC) 1.25 MG/0.5 ML AMP INHALATION SCH ×4 (09:01→20:11)
[2016-10-01] MEDS: BUDESONIDE 0.5 MG/2 ML NEBU INHALATION SCH ×2 (09:02→20:11)
[2016-10-01] MEDS: TIOTROPIUM 18 MCG/PUFF INHALER INHALATION SCH (09:02)
[2016-10-01] MEDS: IPRATROPIUM 0.5 MG/2.5 ML NEBU INHALATION SCH ×4 (09:02→20:11)
--- NOTE | 2016-10-01 09:06 | XR ---
EXAMINATION TYPE: XR chest 1V DATE OF EXAM: 10/01/2016 7:33 AM COMPARISON: 09/30/2016 HISTORY: 76 year-old female history of pneumonia TECHNIQUE: Single frontal view of the chest is obtained. FINDINGS: Heart is normal size. Atherosclerotic arch calcifications. Hyperinflation with relative upper lung enzo cencies. Left PICC tip at the mid SVC level. Continued opacities throughout the right mid and lower l glendy. Suggestion of some cystic lucency within the right mid lung opacity. IMPRESSION: Continued cavitary consolidation right midlung and additional stable opacity within the right lower l glendy. Underlying COPD.
--- NOTE | 2016-10-01 11:00 | P.PN ---
Subjective Physical 76-year-old female patient who is being evaluated and examined today. Patient came into the emergency room for generalized weakness over the last few days as well as decreased appetite and shortness of breath with cough that is productive with green sputum. She was also noted to have a temperature 101.1 and was tachycardic. A chest x-ray was performed and demonstrated a right upper lobe pneumonia. Patient was given IV fluids along with other medications and her heart rate and fever both improved. The patient does have a history of lung carcinoma with status post radiation for 5 years. The patient and the family were both told that she was in remission in 2013 after a PET scan. Patient does have a history of smoking however she stated she stopped smoking a few months ago. A CT of the chest was obtained and reveals mild emphysematous change with cavitary masslike lesions to the right upper lobe favoring focal infectious process or cavitary pneumonia, recurrent neoplasia some is not excluded but felt less likely. the patient was transferred to the intensive care unit September 26, increasing shortness of breath, fluid overload with a component of congestive heart failure. the patient was placed on BiPAP and received a few doses of Lasix. Patient underwent a bronchoscopy on . The patient also developed atrial fibrillation and cardiology is on consult. Currently she is hemodynamically stable, and has been downgraded to medical surgical floor. Upon examination the patient is resting up on the side of the bed, she is afebrile. AL at bedside. Her oxygen demands have remained at 2 L which is her baseline. She continues to have a cough which is productive with yellow sputum, however slowly lessening in frequency. Chest x-ray reviewed. Discharge planning is in place for the patient to go to rehab facility. Objective - Vital Signs Vital signs: Vital Signs Temp 97 F L 10/01/16 08:40 Pulse 80 10/01/16 09:17 Resp 14 10/01/16 09:17 BP 122/64 10/01/16 08:40 Pulse Ox 100 10/01/16 08:40 Intake & Output 09/30/16 10/01/16 10/01/16 18:59 06:59 18:59 Intake Total 3130 550 Output Total 1100 1500 1700 Balance 2029 -1150 Weight 51.5 kg 53.2 kg Intake: IV 160 0.9 160 Intake, IV Titration 250 250 Amount Vancomycin 1,000 mg In 250 250 Sodium Chloride 0.9% 250 ml @ 125 mls/hr IVPB Q16H [facility] Rx#:[id number] Oral 2720 300 Output: Urine 1100 1500 1700 Other: Voiding Method Toilet Toilet Toilet # Voids 1 - Exam GENERAL EXAM: Alert, active, comfortable in no apparent distress. HEAD: Normocephalic. EYES: Normal reaction of pupils, equal size. NOSE: Clear with pink turbinates. THROAT: No erythema or exudates. NECK: No masses, no JVD. CHEST: No chest wall deformity. LUNGS: Lung sounds diminished , bilaterally. CVS: S1 and S2 normal with no audible mumurs, irregular rhythm. ABDOMEN: No hepatosplenomegaly, normal bowel sounds, no guarding or rigidity. EXTREMITIES: No edema noted, pedal pulses palpable. SKIN: No rashes CENTRAL NERVOUS SYSTEM: No focal deficits, tone is normal in all 4 extremities. - Labs CBC & Chem 7: 10/01/16 06:11 10/01/16 06:11 Labs: Abnormal Lab Results - Last 24 Hours (Table) 09/30/16 09/30/16 09/30/16 Range/Units 06:40 11:42 16:29 WBC 20.6 H (3.8-10.6) k/uL RBC 3.74 L (3.80-5.40) m/uL Hgb 10.7 L (11.4-16.0) gm/dL MCHC 30.4 L (31.0-37.0) g/dL Neutrophils # (Manual) 17.6 H (1.3-7.7) k/uL Sodium (137-145) mmol/L Chloride (98-107) mmol/L Carbon Dioxide (22-30) mmol/L BUN (7-17) mg/dL Glucose (74-99) mg/dL POC Glucose (mg/dL) 305 H 142 H (75-99) mg/dL Phosphorus (2.5-4.5) mg/dL 09/30/16 10/01/16 10/01/16 Range/Units 20:54 06:11 06:11 WBC 22.9 H (3.8-10.6) k/uL RBC 3.66 L (3.80-5.40) m/uL Hgb 11.0 L (11.4-16.0) gm/dL MCHC (31.0-37.0) g/dL Neutrophils # (Manual) 17.1 H (1.3-7.7) k/uL Sodium 135 L (137-145) mmol/L Chloride 93 L (98-107) mmol/L Carbon Dioxide 36 H (22-30) mmol/L BUN 36 H (7-17) mg/dL Glucose 102 H (74-99) mg/dL POC Glucose (mg/dL) 181 H (75-99) mg/dL Phosphorus 4.7 H (2.5-4.5) mg/dL 10/01/16 Range/Units 06:19 WBC (3.8-10.6) k/uL RBC (3.80-5.40) m/uL Hgb (11.4-16.0) gm/dL MCHC (31.0-37.0) g/dL Neutrophils # (Manual) (1.3-7.7) k/uL Sodium (137-145) mmol/L Chloride (98-107) mmol/L Carbon Dioxide (22-30) mmol/L BUN (7-17) mg/dL Glucose (74-99) mg/dL POC Glucose (mg/dL) 112 H (75-99) mg/dL Phosphorus (2.5-4.5) mg/dL Assessment and Plan Plan: Assessment Sepsis secondary to community-acquired pneumonia in the right upper lobe acute on chronic hypoxic respiratory failure chronic obstructive pulmonary disease coronary artery disease Peripheral arterial disease Dyslipidemia History of lung cancer Peripheral neuropathy Hypertension New-onset atrial fibrillation Plan Medications have been reviewed and will be continued as ordered. We will continue with antibiotics and IV steroids. We will taper down the steroids. We will initiate and encourage incentive spirometer. Continue with supplemental oxygen, nebulizer treatments, pulmonary hygiene and supportive care. albuterol has been switched to Xopenex due to new-onset A. fib. GI/DVT prophylaxis. In regards to discharge planning the patient seems to be in agreement to go to an ECF when appropriate she will be discharged with or PICC line and IV antibiotics. We will continue to monitor labs/results and adjust treatment as necessary. I performed an examination of the patient and discussed their management with the nurse practitioner. I have reviewed the nurse practitioner's note and agree with the documented findings and plan of care.
[2016-10-01 11:44] LABS: Glucose,Whole Blood 213 mg/dL (75-99)
[2016-10-01] MEDS: MULTIVITAMINS, THERA 1 EACH TAB PO SCH (12:11)
[2016-10-01] MEDS: VALSARTAN 80 MG TAB PO SCH (12:11)
[2016-10-01] MEDS: FUROSEMIDE 40 MG TAB PO SCH (16:37)
[2016-10-01 17:14] LABS: Glucose,Whole Blood 111 mg/dL (75-99)
--- NOTE | 2016-10-01 18:52 | PN ---
DATE OF SERVICE: 10/01/2016 PRESENTING COMPLAINT: Difficulty breathing and fevers. INTERVAL HISTORY: This 76-year-old female who presented with difficulty breathing and fevers. Patient's course was complicated with difficulty breathing, productive cough, significant hypoxia and fluid overload. Patient has received Lasix and received intensive care monitoring. During that time she developed atrial fibrillation. She additionally had bronchoscopy, which revealed no endotracheal lesions. However, the cultures came back positive for MRSA. Today the patient is awake, alert, comfortable and conversant. No distress noted or voiced. Review of systems done for constitutional, cardiovascular, gastrointestinal, pulmonary, with relevant findings as above. CURRENT MEDICATIONS: Albuterol, Xanax, Pulmicort. PHYSICAL EXAMINATION: VITAL SIGNS: Temperature 97.2, pulse 56, respirations 16, blood pressure 91/45, oxygen saturation 97% on 2 liters nasal cannula. GENERAL APPEARANCE: Patient is sitting upright in bed, states feeling well, calm, cooperative. No acute distress noted or voiced. She is aware she has a pending discharge to [facility] in the next day or 2. EYES: Pupils equal. Conjunctivae normal. NECK: JVD not raised. Mass not palpable. LUNGS: Diminished breath sounds bilaterally. CARDIOVASCULAR: S1, S2 regular. Patient was previously in atrial fibrillation and is now converted to sinus rhythm to sinus tesfaye. Rate is controlled. No edema noted. ABDOMEN: Soft, nontender. Liver and spleen not palpable. PSYCHIATRIC: Alert and oriented x3. Mood and affect are normal. INVESTIGATIONS: White blood cell count 22.9, hemoglobin 11.0, platelet count 356, sodium 135, BUN 36, creatinine 0.99. Chest x-ray dated 10/01/2016, Impression: Continue cavitary consolidation right midlung and additional stable opacity within the right lower lung, underlying COPD. ASSESSMENT: 1. Right upper lobe pneumonia secondary to methicillin-resistant Staphylococcus aureus, community acquired causing sepsis on presentation, with some clinical response. 2. History of lung cancer in left upper lobe by Dr. Guillaume. 3. Proximal atrial fibrillation. Patient currently in sinus rhythm. 4. Chronic obstructive pulmonary disease in an ex-smoker. 5. Acute on chronic congestive heart failure exacerbation from systolic dysfunction. Ejection fraction 40% from underlying coronary artery disease, now improved. 6. Coronary artery disease with prior history of stents. 7. Peripheral arterial disease with prior history of stents. 8. Hyperlipidemia PLAN: Patient is also on Cordarone. Eliquis for anticoagulation. We will switch the patient oral prednisone. I performed a history and physical examination of this patient and discussed the same with the dictator. I agree with the dictator's note. Any additional findings/opinions, etc. will be noted.
--- NOTE | 2016-10-01 18:58 | PN ---
DATE OF ADMISSION: 09/23/2016 ADDENDUM TO NOTE FROM 09/30/2016: Please add the following text: Patient was seen and examined by GRAHAM Lovelace and all elements of the case was discussed with the attending Dr. Rubi.
[2016-10-01 20:53] LABS: Glucose,Whole Blood 144 mg/dL (75-99)
[2016-10-01] MEDS: ATORVASTATIN 80 MG TAB PO SCH (21:13)
[2016-10-01] MEDS: GABAPENTIN 300 MG CAP PO SCH (21:13)
[2016-10-01] MEDS: MELATONIN 5 MG TABLET PO SCH (21:13)
[2016-10-01] MEDS: INSULIN GLARGINE 100 UNIT/ML 10 ML VIAL SQ SCH (21:20)
--- NOTE | 2016-10-01 22:45 | P.PN ---
Subjective Principal diagnosis: Pneumonia 76 -year-old Woman who presents to Hospital with a relatively short history of increasing cough and sputum production that was thick and yellow in nature. The patient's daughter is present and relates that short time ago they were doing well and had traveled to the [facility] with the patient did very well. She also routinely [facility] in [facility]. She did have difficulties while she was in [place] with a bronchial infection. It was treated and she was well enough to travel to the [facility] without illnesses. Patient's also relates that a week prior there were out shopping and doing well. The patient has had a significant change of her status and has developed fever increasing shortness of breath and sputum production. Is brought in the hospital she had ongoing fever and then developed some respiratory failure requiring transient intensive care unit and utilization of BiPAP. She remains evidence of the significant shortness of breath and metabolic encephalopathy but does seem to be comfortable at this point in time. She is improved today. Sitting upright. ate her lunch. Has on a blouse other than hospital gown Does not have on BiPAP. more awake and alert. Improved confusion. patient is aware that she'll be going to rehab after discharge to complete a course of antibiotic therapy and receive physical strengthening. Objective - Vital Signs Vital signs: Vital Signs Temp 97.2 F L 10/01/16 15:42 Pulse 64 10/01/16 20:26 Resp 16 10/01/16 15:42 BP 91/45 10/01/16 15:42 Pulse Ox 97 10/01/16 15:42 Intake & Output 10/01/16 10/01/16 10/02/16 06:59 18:59 06:59 Intake Total 550 Output Total 1500 1700 Balance -1500 -1150 Weight 53.2 kg Intake: Intake, IV Titration 250 Amount Vancomycin 1,000 mg In 250 Sodium Chloride 0.9% 250 ml @ 125 mls/hr IVPB Q16H [facility] Rx#:[id number] Oral 300 Output: Urine 1500 1700 Other: Voiding Method Toilet Toilet # Voids 1 - Exam 76-year-old woman who is on BiPAP seems to be operable He has had some recent significant recent sedation HEENT: Anicteric conjunctiva are pink and moist nasal mucosa grossly intact without significant lesions, there is no thrush.dentures Neck: The neck is supple without significant lymphadenopathy or thyromegaly. Lungs: There is symmetrical air entry. Expiratory wheezes are through the lung eason. Basilar crackles. Did not cooperate for egophony. Heart: Regular rate and rhythm with an audible S1-S2, no S3 positive S4 There is no significant murmur click or rub, PMI was nondisplaced. Abdomen: Positive bowel sounds soft and nontender without palpable masses or organomegaly. There was no guarding or rebound. Extremities: the upper extremities reveals evidence of The IV site center without difficulty. Does have trace bilateral pedal edema but no ulcerations. Neuro: sitting upright. Eating her lunch. Knows she is at [facility] - Labs CBC & Chem 7: 10/01/16 06:11 10/01/16 06:11 Labs: Abnormal Lab Results - Last 24 Hours (Table) 10/01/16 10/01/16 10/01/16 Range/Units 06:11 06:11 06:19 WBC 22.9 H (3.8-10.6) k/uL RBC 3.66 L (3.80-5.40) m/uL Hgb 11.0 L (11.4-16.0) gm/dL Neutrophils # (Manual) 17.1 H (1.3-7.7) k/uL Sodium 135 L (137-145) mmol/L Chloride 93 L (98-107) mmol/L Carbon Dioxide 36 H (22-30) mmol/L BUN 36 H (7-17) mg/dL Glucose 102 H (74-99) mg/dL POC Glucose (mg/dL) 112 H (75-99) mg/dL Phosphorus 4.7 H (2.5-4.5) mg/dL 10/01/16 10/01/16 10/01/16 Range/Units 11:42 17:13 20:43 WBC (3.8-10.6) k/uL RBC (3.80-5.40) m/uL Hgb (11.4-16.0) gm/dL Neutrophils # (Manual) (1.3-7.7) k/uL Sodium (137-145) mmol/L Chloride (98-107) mmol/L Carbon Dioxide (22-30) mmol/L BUN (7-17) mg/dL Glucose (74-99) mg/dL POC Glucose (mg/dL) 213 H 111 H 144 H (75-99) mg/dL Phosphorus (2.5-4.5) mg/dL Laboratory Results WBC 22.9 k/uL (3.8-10.6) H 10/01/16 06:11 RBC 3.66 m/uL (3.80-5.40) L 10/01/16 06:11 Hgb 11.0 gm/dL (11.4-16.0) L 10/01/16 06:11 Hct 34.5 % (34.0-46.0) 10/01/16 06:11 MCV 94.2 fL (80.0-100.0) 10/01/16 06:11 MCH 30.0 pg (25.0-35.0) 10/01/16 06:11 MCHC 31.8 g/dL (31.0-37.0) 10/01/16 06:11 RDW 13.7 % (11.5-15.5) 10/01/16 06:11 Plt Count 356 k/uL (150-450) 10/01/16 06:11 Neutrophils % 88 % 09/28/16 04:50 Neutrophils % (Manual) 74.5 % 10/01/16 06:11 Band Neutrophils % 2.5 % 09/30/16 06:40 Lymphocytes % 6 % 09/28/16 04:50 Lymphocytes % (Manual) 13.0 % 10/01/16 06:11 Monocytes % 4 % 09/28/16 04:50 Monocytes % (Manual) 4.0 % 10/01/16 06:11 Eosinophils % 0 % 09/28/16 04:50 Basophils % 1 % 09/28/16 04:50 Metamyelocytes % 3.0 % 10/01/16 06:11 Myelocytes % 5.5 % 10/01/16 06:11 Neutrophils # 18.9 k/uL (1.3-7.7) H 09/28/16 04:50 Neutrophils # (Manual) 17.1 k/uL (1.3-7.7) H 10/01/16 06:11 Lymphocytes # 1.3 k/uL (1.0-4.8) 09/28/16 04:50 Lymphocytes # (Manual) 3.0 k/uL (1.0-4.8) 10/01/16 06:11 Monocytes # 0.9 k/uL (0-1.0) 09/28/16 04:50 Monocytes # (Manual) 0.9 k/uL (0-1.0) 10/01/16 06:11 Eosinophils # 0.1 k/uL (0-0.7) 09/28/16 04:50 Basophils # 0.1 k/uL (0-0.2) 09/28/16 04:50 Nucleated RBCs 0 /100 WBC (0-0) 10/01/16 06:11 Manual Slide Review Performed 10/01/16 06:11 Toxic Granulation Present 10/01/16 06:11 Polychromasia Present 09/29/16 04:57 Hypochromasia Slight 09/26/16 09:00 Poikilocytosis (manual Present 10/01/16 06:11 Anisocytosis (manual) Present 09/30/16 06:40 PT 12.2 sec (9.0-12.0) H 09/23/16 14:14 INR 1.2 (<1.1) 09/23/16 14:14 APTT 25.4 sec (22.0-30.0) 09/23/16 14:14 Sample Site lbrach 09/26/16 23:16 ABG pH 7.37 (7.35-7.45) 09/26/16 23:16 ABG pCO2 46 mmHg (35-45) H 09/26/16 23:16 ABG pO2 81 mmHg (83-108) L 09/26/16 23:16 ABG HCO3 26 mmol/L (21-25) H 09/26/16 23:16 ABG O2 Saturation 96.0 % (94-97) 09/26/16 23:16 ABG Base Excess 0.7 mmol/L 09/26/16 23:16 FiO2 60 % 09/26/16 23:16 Sodium 135 mmol/L (137-145) L 10/01/16 06:11 Potassium 4.3 mmol/L (3.5-5.1) 10/01/16 06:11 Chloride 93 mmol/L (98-107) L 10/01/16 06:11 Carbon Dioxide 36 mmol/L (22-30) H 10/01/16 06:11 Anion Gap 6 mmol/L 10/01/16 06:11 BUN 36 mg/dL (7-17) H 10/01/16 06:11 Creatinine 0.99 mg/dL (0.52-1.04) 10/01/16 06:11 Est GFR (MDRD) Af Amer >60 (>60 ml/min/1.73 sqM) 10/01/16 06:11 Est GFR (MDRD) Non-Af 54 (>60 ml/min/1.73 sqM) 10/01/16 06:11 Glucose 102 mg/dL (74-99) H 10/01/16 06:11 POC Glucose (mg/dL) 144 mg/dL (75-99) H 10/01/16 20:43 POC Glu [employer] Executive Director ID Susan Carter 10/01/16 20:[address] Glu mg/dL 123 mg/dL 09/24/16 08:01 Hemoglobin A1c 5.9 % (4.2-6.1) 09/24/16 08:01 Plasma Lactic Acid Imer 2.0 mmol/L (0.7-2.0) 09/28/16 07:15 Calcium 8.9 mg/dL (8.4-10.2) 10/01/16 06:11 Phosphorus 4.7 mg/dL (2.5-4.5) H 10/01/16 06:11 Magnesium 2.1 mg/dL (1.6-2.3) 10/01/16 06:11 Total Bilirubin 0.4 mg/dL (0.2-1.3) 09/27/16 04:25 AST 60 U/L (14-36) H 09/27/16 04:25 ALT 55 U/L (9-52) H 09/27/16 04:25 Alkaline Phosphatase 80 U/L (38-126) 09/27/16 04:25 Total Creatine Kinase 49 U/L (30-135) 09/23/16 14:14 CK-MB (CK-2) 0.8 ng/mL (0.0-2.4) 09/23/16 14:14 CK-MB (CK-2) Rel Index 1.6 09/23/16 14:14 Troponin I <0.012 ng/mL (0.000-0.034) 09/23/16 14:14 NT-Pro-B Natriuret Pep 86481 pg/mL 09/27/16 04:25 Total Protein 6.2 g/dL (6.3-8.2) L 09/27/16 04:25 Albumin 3.3 g/dL (3.5-5.0) L 09/27/16 04:25 Urine Color Light Yellow 09/26/16 19:20 Urine Appearance Clear (Clear) 09/26/16 19:20 Urine pH 5.0 (5.0-8.0) 09/26/16 19:20 Ur Specific [place] 1.005 (1.001-1.035) 09/26/16 19:20 Urine Protein Negative (Negative) 09/26/16 19:20 Urine Glucose (UA) Negative (Negative) 09/26/16 19:20 Urine Ketones Negative (Negative) 09/26/16 19:20 Urine Blood Negative (Negative) 09/26/16 19:20 Urine Nitrite Negative (Negative) 09/26/16 19:20 Urine Bilirubin Negative (Negative) 09/26/16 19:20 Urine Urobilinogen <2.0 mg/dL (<2.0) 09/26/16 19:20 Ur Leukocyte Esterase Negative (Negative) 09/26/16 19:20 Urine RBC 14 /hpf (0-5) H 09/23/16 14:35 Urine WBC 13 /hpf (0-5) H 09/23/16 14:35 Ur Squamous Epith Cells 2 /hpf (0-4) 09/23/16 14:35 Urine Bacteria Rare /hpf (None) H 09/23/16 14:35 Urine Mucus Rare /hpf (None) H 09/23/16 14:35 Vancomycin Trough 15.8 ug/mL 09/30/16 06:40 Influenza Type A RNA Not Detected (Not Detectd) 09/23/16 13:40 Influenza Type B (PCR) Not Detected (Not Detectd) 09/23/16 13:40 Virus Source See Below 09/25/16 09:28 Viral Test See Below H 09/25/16 09:28 Virus Analysis Interp See Below 09/25/16 09:28 Miscellaneous Test Pneumocytis by PCR 09/25/16 09:28 Misc Test Result See comment 09/25/16 09:28 Microbiology 09/23/16 14:14 Blood Blood Culture - Final No Growth after 144 hours 09/25/16 09:28 Bronchial Washings - Right Fungal Culture - Preliminary Kaykay glabrata 09/26/16 19:20 Urine,Catheterized Urine Culture - Final 09/25/16 09:28 Bronchial Washings - Right Gram Stain - Final 09/25/16 09:28 Bronchial Washings - Right Bronchial Washings Culture - Final Methicillin resist S. aureus 09/25/16 09:28 Bronchial Washings - Right Acid Fast Bacilli Smear - Final 09/25/16 09:28 Bronchial Washings - Right Acid Fast Bacilli Culture - Preliminary 09/23/16 13:40 Urine,Voided Urine Culture - Final Of note there is now further testing available. Viral testing shows evidence of rhinovirus and parainfluenza 3. Pneumocystis and Legionella come back as negative. - Imaging and Cardiology Chest x-ray: report reviewed (Improved to stable) Assessment and Plan (1) Staphylococcus aureus pneumonia Narrative/Plan: 76-year-old woman that has a history of significant underlying COPD that is oxygen dependent is doing relatively well as of late. Was able to travel to the [facility]. Did have a bout of bronchitis when she was at her home in [place]. However now is developed significant pneumonia. With respiratory failure. She's had a bronchoscopy performed. Some purulent secretions werefound and staph aureus, MRSA has now been isolated. Vancomycin has been added asantibiotic therapy. Rocephin will continue his azithromycin was discontinued. She has significant leukocytosis and response to her pneumonia. Altered mental status on the basis of Versed and underlying sepsis from her pneumonia. She's also had difficulty with intermittent pulmonary edema requiring some diuretics and then hypotension was from further fluids adjustment of her medications is being performed and seemed to be bit better this afternoon. She is evidence of lung cancer with history of radiation therapy. She has an acute pneumonia at this present time with MRSA and hopefully with treatment will have some further improvement. Vancomycin is appropriate. This will be continued. will receive a 14 day course of antibiotic therapy. with vancomycin PICC line has been placed. Tolerating it well. No evidence of pneumocystis or Legionella. Viral panel did come back with evidence of paraInfluenza and rhinovirus. There are changes of treatment are needed. Likely will go to extended care tomorrow to complete her course of therapy which his antibiotics and strengthening. Status: Acute (2) COPD with acute lower respiratory infection Status: Acute (3) Leukocytosis Status: Acute
[2016-10-02 07:35] LABS: Glucose,Whole Blood 106 mg/dL (75-99)
[2016-10-02] MEDS: BUDESONIDE 0.5 MG/2 ML NEBU INHALATION SCH (07:46)
[2016-10-02] MEDS: LEVALBUTEROL NEB (CONC) 1.25 MG/0.5 ML AMP INHALATION SCH ×3 (07:46→15:58)
[2016-10-02] MEDS: IPRATROPIUM 0.5 MG/2.5 ML NEBU INHALATION SCH ×3 (07:46→15:58)
[2016-10-02] MEDS: TIOTROPIUM 18 MCG/PUFF INHALER INHALATION SCH (07:47)
[2016-10-02] MEDS: INSULIN LISPRO (humaLOG) 300 UNIT/3 ML VIAL SQ SCH ×4 (07:55→12:26)
--- NOTE | 2016-10-02 08:00 | PN ---
DATE OF SERVICE: 10/01/2016 ATTENDING NOTE: This patient is seen and examined by me earlier today. I reviewed the note of my nurse practitioner, Ms. Lovelace and discussed with her. The patient overall feeling better, tolerating a diet. Has been out of bed. Did actually walk up the hallway. Looking at going to the inpatient rehab. On examination, afebrile. LUNGS: Improved air entry. CARDIOVASCULAR: First and second sounds normal. No edema. PSYCH: Alert and oriented x3. INVESTIGATIONS: White count 22.9. Potassium 4.3. Accu-Cheks are noted. ASSESSMENT: 1. Pneumonia secondary to methicillin-resistant Staphylococcus aureus with sepsis on presentation, clinically improving. 2. Paroxysmal atrial fibrillation, currently in sinus rhythm. 3. Chronic obstructive pulmonary disease in an ex-smoker. 4. Congestive heart failure with ejection fraction of 40% from underlying coronary artery disease, systolic dysfunction improved. PLAN: Continue current medication and treatment plan. Will switch the patient over to oral prednisone. Looking at inpatient rehab.
[2016-10-02 08:06] VITALS: RESP 16
[2016-10-02] MEDS: ASPIRIN 81 MG CHEW PO SCH (08:21)
[2016-10-02] MEDS: CLOPIDOGREL 75 MG TAB PO SCH (08:21)
[2016-10-02] MEDS: PANTOPRAZOLE 40 MG TABLET PO SCH (08:22)
[2016-10-02] MEDS: acetaZOLAMIDE 250 MG TAB PO SCH (08:22)
[2016-10-02] MEDS: VANCOMYCIN 1,000 MG in SODIUM CHLORIDE 0.9% 250 ML IVPB SCH (08:22)
[2016-10-02] MEDS: FUROSEMIDE 40 MG TAB PO SCH ×2 (08:22→15:56)
[2016-10-02] MEDS: METOPROLOL TARTRATE 50 MG TAB PO SCH (08:22)
[2016-10-02] MEDS: AMIODARONE 200 MG TAB PO SCH (08:22)
[2016-10-02] MEDS: NYSTATIN 100,000 UNIT/ML SUSP 500,000 UNIT/5 ML CUP PO SCH ×2 (08:22→12:25)
[2016-10-02] MEDS: SPIRONOLACTONE 25 MG TAB PO SCH (08:22)
[2016-10-02] MEDS: ALPRAZolam 0.5 MG TAB PO SCH ×2 (08:23→15:48)
[2016-10-02] MEDS: APIXABAN 2.5 MG TABLET PO SCH (08:28)
[2016-10-02] MEDS ORDERED: predniSONE 20 MG TAB PO SCH (09:00)
[2016-10-02 09:50] LABS: HCT 35.1 % (34.0-46.0); HDW 2.45; HGB 11.3 gm/dL (11.4-16.0); MCH 30.4 pg (25.0-35.0); MCHC 32.3 g/dL (31.0-37.0); MCV 94.1 fL (80.0-100.0); Mean Platelet Volume 7.4; RBC 3.73 m/uL (3.80-5.40); RDW 13.6 % (11.5-15.5)
[2016-10-02 09:58] LABS: WBC 25.1 k/uL (3.8-10.6)
[2016-10-02 10:00] LABS: Calcium 9.1 mg/dL (8.4-10.2); Potassium 3.9 mmol/L (3.5-5.1)
--- NOTE | 2016-10-02 11:31 | P.PN ---
Subjective Physical 76-year-old female patient who is being evaluated and examined today. Patient came into the emergency room for generalized weakness over the last few days as well as decreased appetite and shortness of breath with cough that is productive with green sputum. She was also noted to have a temperature 101.1 and was tachycardic. A chest x-ray was performed and demonstrated a right upper lobe pneumonia. Patient was given IV fluids along with other medications and her heart rate and fever both improved. The patient does have a history of lung carcinoma with status post radiation for 5 years. The patient and the family were both told that she was in remission in 2013 after a PET scan. Patient does have a history of smoking however she stated she stopped smoking a few months ago. A CT of the chest was obtained and reveals mild emphysematous change with cavitary masslike lesions to the right upper lobe favoring focal infectious process or cavitary pneumonia, recurrent neoplasia some is not excluded but felt less likely. the patient was transferred to the intensive care unit September 26, increasing shortness of breath, fluid overload with a component of congestive heart failure. the patient was placed on BiPAP and received a few doses of Lasix. Patient underwent a bronchoscopy on . The patient also developed atrial fibrillation and cardiology is on consult. Currently she is hemodynamically stable, and has been downgraded to medical surgical floor. Upon examination the patient is resting up on the side of the bed, she is afebrile. Her oxygen demands have remained at 2 L which is her baseline. She continues to have a cough which is productive with yellow sputum , however slowly lessening in frequency. Discharge planning is in place for the patient to go to rehab facility. Patient currently has a PICC line and will be getting IV antibiotics at the rehab facility. Objective - Vital Signs Vital signs: Vital Signs Temp 96.5 F L 10/02/16 07:00 Pulse 52 L 10/02/16 11:26 Resp 16 10/02/16 07:00 BP 127/58 10/02/16 07:00 Pulse Ox 100 10/02/16 07:00 Intake & Output 10/01/16 10/02/16 10/02/16 18:59 06:59 18:59 Intake Total 550 700 Output Total 1700 Balance -1150 700 Intake: Intake, IV Titration 250 Amount Vancomycin 1,000 mg In 250 Sodium Chloride 0.9% 250 ml @ 125 mls/hr IVPB Q16H [facility] Rx#:[id number] Oral 300 700 Output: Urine 1700 Other: Voiding Method Toilet # Voids 2 - Exam GENERAL EXAM: Alert, active, comfortable in no apparent distress. HEAD: Normocephalic. EYES: Normal reaction of pupils, equal size. NOSE: Clear with pink turbinates. THROAT: No erythema or exudates. NECK: No masses, no JVD. CHEST: No chest wall deformity. LUNGS: Lung sounds diminished , bilaterally. Few expiratory wheezes noted. CVS: S1 and S2 normal with no audible mumurs, irregular rhythm. ABDOMEN: No hepatosplenomegaly, normal bowel sounds, no guarding or rigidity. EXTREMITIES: No edema noted, pedal pulses palpable. SKIN: No rashes CENTRAL NERVOUS SYSTEM: No focal deficits, tone is normal in all 4 extremities. - Labs CBC & Chem 7: 10/02/16 08:42 10/02/16 08:42 Labs: Abnormal Lab Results - Last 24 Hours (Table) 10/01/16 10/01/16 10/01/16 Range/Units 11:42 17:13 20:43 WBC (3.8-10.6) k/uL RBC (3.80-5.40) m/uL Hgb (11.4-16.0) gm/dL Sodium (137-145) mmol/L Chloride (98-107) mmol/L Carbon Dioxide (22-30) mmol/L BUN (7-17) mg/dL Creatinine (0.52-1.04) mg/dL POC Glucose (mg/dL) 213 H 111 H 144 H (75-99) mg/dL 10/02/16 10/02/16 10/02/16 Range/Units 07:34 08:42 08:42 WBC 25.1 H* (3.8-10.6) k/uL RBC 3.73 L (3.80-5.40) m/uL Hgb 11.3 L (11.4-16.0) gm/dL Sodium 134 L (137-145) mmol/L Chloride 93 L (98-107) mmol/L Carbon Dioxide 34 H (22-30) mmol/L BUN 49 H (7-17) mg/dL Creatinine 1.21 H (0.52-1.04) mg/dL POC Glucose (mg/dL) 106 H (75-99) mg/dL Assessment and Plan Plan: Assessment Sepsis secondary to community-acquired pneumonia in the right upper lobe acute on chronic hypoxic respiratory failure chronic obstructive pulmonary disease coronary artery disease Peripheral arterial disease Dyslipidemia History of lung cancer Peripheral neuropathy Hypertension New-onset atrial fibrillation Plan Medications have been reviewed and will be continued as ordered. We will continue with antibiotics. Steroids have been switched to oral. And tinea encourage incentive spirometer. Continue with supplemental oxygen, nebulizer treatments, pulmonary hygiene and supportive care. albuterol has been switched to Xopenex due to new-onset A. fib. GI/DVT prophylaxis. In regards to discharge planning the patient seems to be in agreement to go to an ECF when appropriate she will be discharged with or PICC line and IV antibiotics. We will continue to monitor labs/results and adjust treatment as necessary. I performed an examination of the patient and discussed their management with the nurse practitioner. I have reviewed the nurse practitioner's note and agree with the documented findings and plan of care.
[2016-10-02 12:02] LABS: Glucose,Whole Blood 206 mg/dL (75-99)
[2016-10-02] MEDS: MULTIVITAMINS, THERA 1 EACH TAB PO SCH (12:25)
[2016-10-02] MEDS: VALSARTAN 80 MG TAB PO SCH (12:30)
--- NOTE | 2016-10-02 15:00 | DS ---
DATE OF ADMISSION: 09/23/2016 DATE OF DISCHARGE: FINAL DIAGNOSES: 1. Right upper lobe pneumonia secondary to methicillin-resistant Staphylococcus aureus community-acquired causing sepsis, present on admission. 2. History of lung cancer of left upper lobe per Dr. Guillaume. 3. Paroxysmal atrial fibrillation on control at presentation now in sinus rhythm. 4. Chronic obstructive pulmonary disease in an ex-smoker. 5. Acute on chronic congestive heart failure exacerbation from systolic dysfunction; ejection fraction 40%, from underlying coronary artery disease. 6. Coronary artery disease with prior history of stent. 7. Peripheral artery disease with prior history of stents in the groin. 8. Hyperlipidemia. HOSPITAL COURSE: This patient presented with pneumonia, growing methicillin-resistant Staphylococcus aureus, also A. fib with rapid ventricular rate. Doing much better. At the time of discharge tolerating a diet. Will require physical therapy. On exam, lungs decreased breath sounds. CARDIOVASCULAR: First and second sounds normal. PSYCH: Alert and oriented x3. Heart rate is running on the lower side and feeling tired; hence, dose of Lopressor being cut back today. CONSULTATION: Dr. Rah Guillaume from pulmonary, Dr. Hercules from infectious disease, Dr. Lance from cardiology. On the day of discharge, care was discussed with the patient and family in detail. Question were answered. Discharge planning more than 35 minutes. DISCHARGE MEDICATIONS: 1. Aspirin 81 mg a day. 2. Lipitor 80 mg q.h.s. 3. Plavix 75 mg p.o. daily. 4. Flexeril 10 mg p.o. q.h.s. p.r.n. 5. Advair 100/50 1 puff b.i.d. 6. Neurontin 100 mg p.o. t.i.d. 7. Cerefolin caplets 1 tablet p.o. daily. 8. Multivitamin 1 tablet p.o. daily. 9. Protonix 40 mg p.o. daily. 10. Diovan 80 mg p.o. daily. 11. Ocuvite with lutein 1 tablet p.o. daily. 12. Cordarone 400 mg p.o. b.i.d. for 2 weeks, then 400 mg p.o. daily. 13. Vancomycin 1000 mg IV piggyback q.16 hours, total of 10 vials. 14. Xanax 0.5 p.o. t.i.d. p.r.n. 15. Eliquis 2.5 p.o. mg p.o. b.i.d. 16. Lasix 40 mg p.o. b.i.d. 17. [place] 5, 1 tablet p.o. q.8 p.r.n. 18. Humalog 4 units subcu a.c. t.i.d. 19. Lantus 15 units subcu a.c. and at bedtime. 20. Accu-Cheks with meals and at bedtime. 21. Atrovent nebulizers q.i.d. 22. Xopenex 1.25 nebulizer q.i.d. 23. Lopressor 50 mg p.o. b.i.d. 24. Senokot 8.6 mg p.o. b.i.d. p.r.n. 25. Aldactone 25 mg p.o. daily. 26. Prednisone taper. DISPOSITION: [facility]. Follow up with Dr. Rah Guillaume in one week, follow with Dr. Allen on 10/03/16, follow with [facility] 10 days. Patient has a PICC line for vancomycin to completed. Discharge planning more than 35 minutes.
[2016-10-02] MEDS: HYDROcodone/APAP 5-325MG 1 EACH TAB PO PRN (15:54)
[2016-10-02 16:10] VITALS: BP 153/61; TEMP 97.5
[2016-10-02 16:17] VITALS: PULSE 60
[2016-10-02] MEDS ORDERED: METOPROLOL TARTRATE 50 MG TAB PO SCH (21:00)
--- NOTE | 2016-10-02 22:56 | P.PN ---
Subjective Principal diagnosis: Pneumonia 76 -year-old Woman who presents to Hospital with a relatively short history of increasing cough and sputum production that was thick and yellow in nature. The patient's daughter is present and relates that short time ago they were doing well and had traveled to the [facility] with the patient did very well. She also routinely [facility] in [facility]. She did have difficulties while she was in [place] with a bronchial infection. It was treated and she was well enough to travel to the [facility] without illnesses. Patient's also relates that a week prior there were out shopping and doing well. The patient has had a significant change of her status and has developed fever increasing shortness of breath and sputum production. Is brought in the hospital she had ongoing fever and then developed some respiratory failure requiring transient intensive care unit and utilization of BiPAP. She remains evidence of the significant shortness of breath and metabolic encephalopathy but does seem to be comfortable at this point in time. She is improved today. Sitting upright. ate her lunch. Has on a blouse other than hospital gown Does not have on BiPAP. more awake and alert. Improved confusion. patient is aware that she'll be going to rehab after discharge to complete a course of antibiotic therapy and receive physical strengthening. Objective - Vital Signs Vital signs: Vital Signs Temp 97.5 F L 10/02/16 15:00 Pulse 60 10/02/16 16:17 Resp 16 10/02/16 15:00 BP 153/61 10/02/16 15:00 Pulse Ox 96 10/02/16 15:00 Intake & Output 10/02/16 10/02/16 10/03/16 06:59 18:59 06:59 Intake Total 700 Balance 700 Intake: Oral 700 Other: # Voids 2 3 - Exam 76-year-old woman who is on BiPAP seems to be operable He has had some recent significant recent sedation HEENT: Anicteric conjunctiva are pink and moist nasal mucosa grossly intact without significant lesions, there is no thrush.dentures Neck: The neck is supple without significant lymphadenopathy or thyromegaly. Lungs: There is symmetrical air entry. Expiratory wheezes are through the lung eason. Basilar crackles. Did not cooperate for egophony. Heart: Regular rate and rhythm with an audible S1-S2, no S3 positive S4 There is no significant murmur click or rub, PMI was nondisplaced. Abdomen: Positive bowel sounds soft and nontender without palpable masses or organomegaly. There was no guarding or rebound. Extremities: the upper extremities reveals evidence of The IV site center without difficulty. Does have trace bilateral pedal edema but no ulcerations. Neuro: sitting upright. Eating her lunch. OX3 - Labs CBC & Chem 7: 10/02/16 08:42 10/02/16 08:42 Labs: Abnormal Lab Results - Last 24 Hours (Table) 10/02/16 10/02/16 10/02/16 Range/Units 07:34 08:42 08:42 WBC 25.1 H* (3.8-10.6) k/uL RBC 3.73 L (3.80-5.40) m/uL Hgb 11.3 L (11.4-16.0) gm/dL Sodium 134 L (137-145) mmol/L Chloride 93 L (98-107) mmol/L Carbon Dioxide 34 H (22-30) mmol/L BUN 49 H (7-17) mg/dL Creatinine 1.21 H (0.52-1.04) mg/dL POC Glucose (mg/dL) 106 H (75-99) mg/dL 10/02/16 Range/Units 12:00 WBC (3.8-10.6) k/uL RBC (3.80-5.40) m/uL Hgb (11.4-16.0) gm/dL Sodium (137-145) mmol/L Chloride (98-107) mmol/L Carbon Dioxide (22-30) mmol/L BUN (7-17) mg/dL Creatinine (0.52-1.04) mg/dL POC Glucose (mg/dL) 206 H (75-99) mg/dL Laboratory Results WBC 25.1 k/uL (3.8-10.6) H* 10/02/16 08:42 RBC 3.73 m/uL (3.80-5.40) L 10/02/16 08:42 Hgb 11.3 gm/dL (11.4-16.0) L 10/02/16 08:42 Hct 35.1 % (34.0-46.0) 10/02/16 08:42 MCV 94.1 fL (80.0-100.0) 10/02/16 08:42 MCH 30.4 pg (25.0-35.0) 10/02/16 08:42 MCHC 32.3 g/dL (31.0-37.0) 10/02/16 08:42 RDW 13.6 % (11.5-15.5) 10/02/16 08:42 Plt Count 359 k/uL (150-450) 10/02/16 08:42 Neutrophils % 88 % 09/28/16 04:50 Neutrophils % (Manual) 74.5 % 10/01/16 06:11 Band Neutrophils % 2.5 % 09/30/16 06:40 Lymphocytes % 6 % 09/28/16 04:50 Lymphocytes % (Manual) 13.0 % 10/01/16 06:11 Monocytes % 4 % 09/28/16 04:50 Monocytes % (Manual) 4.0 % 10/01/16 06:11 Eosinophils % 0 % 09/28/16 04:50 Basophils % 1 % 09/28/16 04:50 Metamyelocytes % 3.0 % 10/01/16 06:11 Myelocytes % 5.5 % 10/01/16 06:11 Neutrophils # 18.9 k/uL (1.3-7.7) H 09/28/16 04:50 Neutrophils # (Manual) 17.1 k/uL (1.3-7.7) H 10/01/16 06:11 Lymphocytes # 1.3 k/uL (1.0-4.8) 09/28/16 04:50 Lymphocytes # (Manual) 3.0 k/uL (1.0-4.8) 10/01/16 06:11 Monocytes # 0.9 k/uL (0-1.0) 09/28/16 04:50 Monocytes # (Manual) 0.9 k/uL (0-1.0) 10/01/16 06:11 Eosinophils # 0.1 k/uL (0-0.7) 09/28/16 04:50 Basophils # 0.1 k/uL (0-0.2) 09/28/16 04:50 Nucleated RBCs 0 /100 WBC (0-0) 10/01/16 06:11 Manual Slide Review Performed 10/01/16 06:11 Toxic Granulation Present 10/01/16 06:11 Polychromasia Present 09/29/16 04:57 Hypochromasia Slight 09/26/16 09:00 Poikilocytosis (manual Present 10/01/16 06:11 Anisocytosis (manual) Present 09/30/16 06:40 PT 12.2 sec (9.0-12.0) H 09/23/16 14:14 INR 1.2 (<1.1) 09/23/16 14:14 APTT 25.4 sec (22.0-30.0) 09/23/16 14:14 Sample Site lbrach 09/26/16 23:16 ABG pH 7.37 (7.35-7.45) 09/26/16 23:16 ABG pCO2 46 mmHg (35-45) H 09/26/16 23:16 ABG pO2 81 mmHg (83-108) L 09/26/16 23:16 ABG HCO3 26 mmol/L (21-25) H 09/26/16 23:16 ABG O2 Saturation 96.0 % (94-97) 09/26/16 23:16 ABG Base Excess 0.7 mmol/L 09/26/16 23:16 FiO2 60 % 09/26/16 23:16 Sodium 134 mmol/L (137-145) L 10/02/16 08:42 Potassium 3.9 mmol/L (3.5-5.1) 10/02/16 08:42 Chloride 93 mmol/L (98-107) L 10/02/16 08:42 Carbon Dioxide 34 mmol/L (22-30) H 10/02/16 08:42 Anion Gap 7 mmol/L 10/02/16 08:42 BUN 49 mg/dL (7-17) H 10/02/16 08:42 Creatinine 1.21 mg/dL (0.52-1.04) H 10/02/16 08:42 Est GFR (MDRD) Af Amer 52 (>60 ml/min/1.73 sqM) 10/02/16 08:42 Est GFR (MDRD) Non-Af 43 (>60 ml/min/1.73 sqM) 10/02/16 08:42 Glucose 98 mg/dL (74-99) 10/02/16 08:42 POC Glucose (mg/dL) 206 mg/dL (75-99) H 10/02/16 12:00 POC Glu Ultrasonic Cleaner ID Amarilis Vail 10/02/16 12:[address] Glu mg/dL 123 mg/dL 09/24/16 08:01 Hemoglobin A1c 5.9 % (4.2-6.1) 09/24/16 08:01 Plasma Lactic Acid [place] 2.0 mmol/L (0.7-2.0) 09/28/16 07:15 Calcium 9.1 mg/dL (8.4-10.2) 10/02/16 08:42 Phosphorus 4.7 mg/dL (2.5-4.5) H 10/01/16 06:11 Magnesium 2.1 mg/dL (1.6-2.3) 10/01/16 06:11 Total Bilirubin 0.4 mg/dL (0.2-1.3) 09/27/16 04:25 AST 60 U/L (14-36) H 09/27/16 04:25 ALT 55 U/L (9-52) H 09/27/16 04:25 Alkaline Phosphatase 80 U/L (38-126) 09/27/16 04:25 Total Creatine Kinase 49 U/L (30-135) 09/23/16 14:14 CK-MB (CK-2) 0.8 ng/mL (0.0-2.4) 09/23/16 14:14 CK-MB (CK-2) Rel Index 1.6 09/23/16 14:14 Troponin I <0.012 ng/mL (0.000-0.034) 09/23/16 14:14 NT-Pro-B Natriuret Pep 68583 pg/mL 09/27/16 04:25 Total Protein 6.2 g/dL (6.3-8.2) L 09/27/16 04:25 Albumin 3.3 g/dL (3.5-5.0) L 09/27/16 04:25 Urine Color Light Yellow 09/26/16 19:20 Urine Appearance Clear (Clear) 09/26/16 19:20 Urine pH 5.0 (5.0-8.0) 09/26/16 19:20 Ur Specific [place] 1.005 (1.001-1.035) 09/26/16 19:20 Urine Protein Negative (Negative) 09/26/16 19:20 Urine Glucose (UA) Negative (Negative) 09/26/16 19:20 Urine Ketones Negative (Negative) 09/26/16 19:20 Urine Blood Negative (Negative) 09/26/16 19:20 Urine Nitrite Negative (Negative) 09/26/16 19:20 Urine Bilirubin Negative (Negative) 09/26/16 19:20 Urine Urobilinogen <2.0 mg/dL (<2.0) 09/26/16 19:20 Ur Leukocyte Esterase Negative (Negative) 09/26/16 19:20 Urine RBC 14 /hpf (0-5) H 09/23/16 14:35 Urine WBC 13 /hpf (0-5) H 09/23/16 14:35 Ur Squamous Epith Cells 2 /hpf (0-4) 09/23/16 14:35 Urine Bacteria Rare /hpf (None) H 09/23/16 14:35 Urine Mucus Rare /hpf (None) H 09/23/16 14:35 Vancomycin Trough 15.8 ug/mL 09/30/16 06:40 Influenza Type A RNA Not Detected (Not Detectd) 09/23/16 13:40 Influenza Type B (PCR) Not Detected (Not Detectd) 09/23/16 13:40 Virus Source See Below 09/25/16 09:28 Viral Test See Below H 09/25/16 09:28 Virus Analysis Interp See Below 09/25/16 09:28 Miscellaneous Test Pneumocytis by PCR 09/25/16 09:28 Misc Test Result See comment 09/25/16 09:28 Microbiology 09/23/16 14:14 Blood Blood Culture - Final No Growth after 144 hours 09/25/16 09:28 Bronchial Washings - Right Fungal Culture - Preliminary [place] glabrata 09/26/16 19:20 Urine,Catheterized Urine Culture - Final 09/25/16 09:28 Bronchial Washings - Right Gram Stain - Final 09/25/16 09:28 Bronchial Washings - Right Bronchial Washings Culture - Final Methicillin resist S. aureus 09/25/16 09:28 Bronchial Washings - Right Acid Fast Bacilli Smear - Final 09/25/16 09:28 Bronchial Washings - Right Acid Fast Bacilli Culture - Preliminary 09/23/16 13:40 Urine,Voided Urine Culture - Final Assessment and Plan (1) Staphylococcus aureus pneumonia Narrative/Plan: 76-year-old woman that has a history of significant underlying COPD that is oxygen dependent is doing relatively well as of late. Was able to travel to the [facility]. Did have a bout of bronchitis when she was at her home in [place]. However now is developed significant pneumonia. With respiratory failure. She's had a bronchoscopy performed. Some purulent secretions werefound and staph aureus, MRSA has now been isolated. Vancomycin has been added asantibiotic therapy. Rocephin will continue his azithromycin was discontinued. She has significant leukocytosis and response to her pneumonia. Altered mental status on the basis of Versed and underlying sepsis from her pneumonia. She's also had difficulty with intermittent pulmonary edema requiring some diuretics and then hypotension was from further fluids adjustment of her medications is being performed and seemed to be bit better this afternoon. She is evidence of lung cancer with history of radiation therapy. She has an acute pneumonia at this present time with MRSA and hopefully with treatment will have some further improvement. Vancomycin is appropriate. This will be continued. will receive a 14 day course of antibiotic therapy. with vancomycin PICC line has been placed. Tolerating it well. No evidence of pneumocystis or Legionella. Viral panel did come back with evidence of paraInfluenza and rhinovirus. There are no changes of treatment are needed. She is recovering. Likely will go to extended care to complete her course of therapy which his antibiotics and strengthening. Status: Acute (2) COPD with acute lower respiratory infection Status: Acute (3) Leukocytosis Status: Acute
[2016-10-02] MEDS ORDERED: VANCOMYCIN TROUGH DUE 1 EACH MISC MISCELLANE ONE (23:00)
--- NOTE | 2016-10-10 13:42 | IR ---
PICC LINE PLACEMENT: HISTORY: Infection requiring long-term antibiotic therapy PROCEDURE: Ultrasound guidance of PICC line placement. COMPLICATIONS: None ANESTHESIA: 1. 1% Lidocaine locally. FINDINGS/TECHNIQUE: The procedure was explained to the patient. The risks, complications, benefits and alternatives were discussed and any questions were answered. Informed consent was obtained. The patient was placed supine on the fluoroscopic table and prepped and draped in the usual sterile fas ion. Utilizing a 21 gauge needle and sonographic guidance, access in the left basilic vein was achi eved and there is placement of a 0.018 guidewire. The vein is patent. A 5-F. Sheath was placed over the guidewire. The guidewire and dilator were removed and a 5-F. Double lumen PICC line was placed through the sheath with the chest x-ray confirming the tip at the level of the SVC. The sheath was r emoved, the catheter was flushed and sutured into position. The patient was stable throughout the pr ocedure and remained stable upon discharge from the Department of Radiology. The vein puncture was patent under ultrasound. A lynn scale image was obtained to document patency of the vein punctured. All elements of the maximal barrier technique were utilized. IMPRESSION: 1. Successful PICC line placement under ultrasound performed bedside.
== END 2016-10-02 16:29 | DRG 853 ==
LOC: EC 12:54 → 4MS4W 15:05 → 6ICU 09-26 18:14 → 6SEL 09-29 14:32 → 6ICU 09-29 14:32 → 6SEL 09-29 15:46 → 4MS4W 10-01 09:12 → 6SEL 10-01 09:13 → 4MS4W 10-01 10:08
PROVIDERS: ADMIT Hospitalist; ATTEND Hospitalist
PROC: 02HV33Z Insertion of Infusion Device into Superior Vena Cava, Percutaneous Approach (ICD-10-PCS; 2016-09-23)
PROC: 0B9C8ZX Drainage of Right Upper Lung Lobe, Via Natural or Artificial Opening Endoscopic, Diagnostic (ICD-10-PCS; principal; 2016-09-25 07:30)
DX: A41.02 Sepsis due to Methicillin resistant Staphylococcus aureus (principal); G93.41 Metabolic encephalopathy; J96.21 Acute and chronic respiratory failure with hypoxia; I50.23 Acute on chronic systolic (congestive) heart failure; J15.212 Pneumonia due to Methicillin resistant Staphylococcus aureus; B49 Unspecified mycosis; J16.8 Pneumonia due to other specified infectious organisms; C34.12 Malignant neoplasm of upper lobe, left bronchus or lung; I42.9 Cardiomyopathy, unspecified; I11.0 Hypertensive heart disease with heart failure; J44.0 Chronic obstructive pulmonary disease with (acute) lower respiratory infection; J44.1 Chronic obstructive pulmonary disease with (acute) exacerbation; E87.5 Hyperkalemia; G62.9 Polyneuropathy, unspecified; E11.9 Type 2 diabetes mellitus without complications; E78.5 Hyperlipidemia, unspecified; G47.30 Sleep apnea, unspecified; I25.10 Atherosclerotic heart disease of native coronary artery without angina pectoris; I48.0 Paroxysmal atrial fibrillation; I73.9 Peripheral vascular disease, unspecified; K21.9 Gastro-esophageal reflux disease without esophagitis; M79.7 Fibromyalgia; Z79.01 Long term (current) use of anticoagulants; Z79.02 Long term (current) use of antithrombotics/antiplatelets; Z79.82 Long term (current) use of aspirin; Z79.899 Other long term (current) drug therapy; Z80.9 Family history of malignant neoplasm, unspecified; Z82.49 Family history of ischemic heart disease and other diseases of the circulatory system; Z82.5 Family history of asthma and other chronic lower respiratory diseases; Z86.718 Personal history of other venous thrombosis and embolism; Z86.73 Personal history of transient ischemic attack (TIA), and cerebral infarction without residual deficits; Z87.891 Personal history of nicotine dependence; Z92.3 Personal history of irradiation; Z95.5 Presence of coronary angioplasty implant and graft; Z99.81 Dependence on supplemental oxygen; Z79.4 Long term (current) use of insulin
CPT/HCPCS: 31624; 36415; 36569; 36600; 71010; 71020; 71260; 76937; 80048; 80053; 80202; 81001; 81003; 82550; 82553; 82805; 83036; 83605; 83735; 83880; 84100; 84132; 84484; 85025; 85027; 85610; 85730; 87040; 87070; 87077; 87086; 87102; 87116; 87186; 87205; 87206; 87252; 87299; 87496; 87498; 87502; 87529; 87541; 87798; 88108; 88305; 93005; 93306; 94640; 94660; 94760; 96361; 96365; 96367; 99285

== ENCOUNTER 2016-11-01 14:12 | Emergency (ER) | payer MEDICARE, OTHER ==
[2016-11-01] MEDS ORDERED: SODIUM CHLORIDE 0.9% 1,000 ML IV STA (14:32)
--- NOTE | 2016-11-01 14:37 | ED ---
General Adult HPI - General Chief complaint: Recheck/Abnormal Lab/Rx Stated complaint: Poss Stroke/Weakness/shaking Time Seen by Provider: 11/01/16 14:23 Source: patient Mode of arrival: wheelchair Limitations: no limitations - History of Present Illness Initial comments: She thinks she had 2 strokes today one episode was about 1 hour prior to coming to the ER she felt that her body was twitching inside felt weak drop things she was grabbing are closed but she dropped them on the floor. She denies any headaches no chest pain no shortness of breath no pleuritic chest pain no abdominal pain no frequency urgency dysuria she feels that the left arm has been weak for the last couple days. - Related Data Home Medications Medication Instructions Recorded Confirmed Aspirin 81 mg PO DAILY 09/23/16 11/01/16 Atorvastatin Calcium [Lipitor] 80 mg PO HS 09/23/16 11/01/16 Clopidogrel Bisulfate [Plavix] 75 mg PO DAILY 09/23/16 11/01/16 Cyclobenzaprine [Flexeril] 10 mg PO HS PRN 09/23/16 11/01/16 Fluticasone/Salmeterol [Advair 1 inhalation PO RT-BID 09/23/16 11/01/16 100-50 Diskus] Gabapentin [Neurontin] 100 mg PO TID 09/23/16 11/01/16 Multivitamins, Thera [Multivitamin 1 tab PO DAILY 09/23/16 11/01/16 (formulary)] Pantoprazole Sodium [Protonix] 40 mg PO DAILY 09/23/16 11/01/16 Valsartan [Diovan] 80 mg PO DAILY 09/23/16 11/01/16 Vits A,C,E/Lutein/Minerals 1 tab PO DAILY 09/23/16 11/01/16 [Ocuvite with Lutein Tablet] l-Mefol/A-Cyst/Meb12/Algal Oil 1 tab PO DAILY 09/23/16 11/01/16 [Cerefolin Nac Caplet] INSULIN LISPRO (humaLOG) [humaLOG See Protocol SQ AC-TID 11/01/16 11/01/16 (formulary)] Previous Rx's Medication Instructions Recorded Amiodarone [Cordarone] 400 mg PO BID #60 tab 10/01/16 ALPRAZolam [Xanax] 0.5 mg PO TID PRN #10 tab 10/02/16 Apixaban [Eliquis] 2.5 mg PO BID tablet 10/02/16 Furosemide [Lasix] 40 mg PO BID@0900,1600 tab 10/02/16 HYDROcodone/APAP 5-325MG [[place] 1 each PO Q8HR PRN #30 tab 10/02/16 5-325] Insulin Glargine [Lantus] 15 unit SQ HS vial 10/02/16 Ipratropium Nebulized [Atrovent 0.5 mg INHALATION RT-QID nebu 10/02/16 Nebulized] Levalbuterol Nebulized (Conc) 1.25 mg INHALATION RT-QID nebule 10/02/16 [Xopenex Nebulized (Conc)] Metoprolol Tartrate [Lopressor] 50 mg PO BID #1 tab 10/02/16 Sennosides [Senokot] 8.6 mg PO BID PRN #0 tab 10/02/16 Spironolactone [Aldactone] 25 mg PO DAILY tab 10/02/16 predniSONE 10 mg PO DAILY #30 tab 10/02/16 Allergies Allergy/AdvReac Type Severity Reaction Status Date / Time No Known Allergies Allergy Verified 11/01/16 15:06 Review of Systems ROS Statement: Those systems with pertinent positive or pertinent negative responses have been documented in the HPI. ROS Other: All systems not noted in ROS Statement are negative. Past Medical History Past Medical History: Cancer, COPD, CVA/TIA, Deep Vein Thrombosis (DVT), Fibromyalgia, GERD/Reflux, Hyperlipidemia, Hypertension, Osteoarthritis (OA), Sleep Apnea/CPAP/BIPAP, Vascular Disorder Additional Past Medical History / Comment(s): back pain , lung cancer-radiation opnly, HOME 02 2 LITERS N/C, BLOOD CLOT AFTER SX, CVA LT SIDE AFFECTED SINCE RESOLVED, HIATAL HERNIA. SHINGLES 30 YEARS AGO, DOES'NT USE CPAP MACHINE.in past for short period of time took oral meds for dm-then taken off meds-pt stated not considered diabetic now but occ will check bs., macular degeneration.past broken rt leg and lt wrist History of Any Multi-Drug Resistant Organisms: MRSA Date of last positivie culture/infection: 09/25/16 MDRO Source:: BRONCH WASH Past Surgical History: Cholecystectomy, Heart Catheterization With Stent, Orthopedic Surgery, Tonsillectomy Additional Past Surgical History / Comment(s): rt leg repaired after break-has pins, lt wrist-plate and screws.lung bx, stents tung groins Past Anesthesia/Blood Transfusion Reactions: Family History of Problems w/ Anesthesia Additional Past Anesthesia/Blood Transfusion Reaction / Comment(s): daughter has diff waking after aa Date of Last Stent Placement:: unk Past Psychological History: Depression Additional Psychological History / Comment[place]- either daughters or sister takes her places. has home 02, nebulizer. . Ongoing tobacco smoker stopping just a short time ago. Has a history of lung cancer Smoking Status: Former smoker Past Alcohol Use History: Occasional Additional Past Alcohol Use History / Comment(s): started smopking at age 14( 5), quit 1976 Past Drug Use History: None Reported - Past Family History Father Family Medical History: Congestive Heart Failure (CHF), COPD Additional Family Medical History / Comment(s): emphysema Mother Family Medical History: Cancer General Exam - General Exam Comments Initial Comments: General: The patient is awake and alert, in no distress, and does not appear acutely ill. GCS is 15 Skin: Skin is warm and dry and no rashes or lesions are noted. Eye: Pupils are equal, round and reactive to light, extra-ocular movements are intact; there is normal conjunctiva bilaterally. Ears, nose, mouth and throat: There are moist mucous membranes and no oral lesions. Neck: The neck is supple, there is no tenderness Cardiovascular: There is a regular rate and rhythm. No murmur, rub or gallop is appreciated. Respiratory: To auscultation bilateral, Consistent with a COPD Gastrointestinal: Soft, non-distended, non-tender abdomen without masses or organomegaly noted. There is no rebound or guarding present. Bowel sounds are unremarkable. Back: There is no tenderness to palpation in the midline. There is no obvious deformity. Musculoskeletal: Normal ROM, no tenderness, There is no pedal edema. There is no calf tenderness or swelling. No cords were appreciated. Neurological: CN II-XII intact, Cranial nerves III through XII are intact. There are no obvious motor or sensory deficits. Coordination appears grossly intact. Speech is normal. Psychiatric: Cooperative, appropriate mood & affect, normal judgment. Looks quite anxious Limitations: no limitations Course Vital Signs 11/01/16 11/01/16 11/01/16 14:14 15:34 16:00 Temperature 99.1 F Pulse Rate 68 60 58 L Respiratory 20 18 18 Rate Blood Pressure 137/65 131/60 121/60 O2 Sat by Pulse 96 99 99 Oximetry 11/01/16 11/01/16 16:33 17:21 Temperature 98.4 F Pulse Rate 62 61 Respiratory 18 16 Rate Blood Pressure 167/68 148/66 O2 Sat by Pulse 100 100 Oximetry All her labs and imaging were discussed with the patient and the family CBC, INR , compressive metabolic panel, troponin, chest x-ray, head CT are normal. Sure that there is any possibility of seizure though we does not fit into any tonic-clonic seizures was no definitive post ictal period identified by the patient for the family, they could be up partial seizure that I wouldn't treat her for patient to Dr. Sánchez and now they could look into outpatient MRI and the EEG family agreed with the Medical Decision Making - Lab Data Result diagrams: 11/01/16 14:45 11/01/16 14:45 Lab Results 11/01/16 11/01/16 11/01/16 Range/Units 14:45 14:45 14:45 WBC 6.3 (3.8-10.6) k/uL RBC 3.24 L (3.80-5.40) m/uL Hgb 9.6 L (11.4-16.0) gm/dL Hct 28.3 L (34.0-46.0) % MCV 87.2 D (80.0-100.0) fL MCH 29.7 (25.0-35.0) pg MCHC 34.0 (31.0-37.0) g/dL RDW 14.4 (11.5-15.5) % Plt Count 291 (150-450) k/uL Neutrophils % 67 % Lymphocytes % 22 % Monocytes % 5 % Eosinophils % 2 % Basophils % 1 % Neutrophils # 4.2 (1.3-7.7) k/uL Lymphocytes # 1.4 (1.0-4.8) k/uL Monocytes # 0.3 (0-1.0) k/uL Eosinophils # 0.1 (0-0.7) k/uL Basophils # 0.0 (0-0.2) k/uL PT (9.0-12.0) sec INR (<1.1) APTT (22.0-30.0) sec Sodium 131 L (137-145) mmol/L Potassium 4.2 (3.5-5.1) mmol/L Chloride 95 L (98-107) mmol/L Carbon Dioxide 29 (22-30) mmol/L Anion Gap 7 mmol/L BUN 22 H (7-17) mg/dL Creatinine 0.83 (0.52-1.04) mg/dL Est GFR (MDRD) Af Amer >60 (>60 ml/min/1.73 sqM) Est GFR (MDRD) Non-Af >60 (>60 ml/min/1.73 sqM) Glucose 108 H (74-99) mg/dL Calcium 8.7 (8.4-10.2) mg/dL Total Bilirubin 0.6 (0.2-1.3) mg/dL AST 33 (14-36) U/L ALT 38 (9-52) U/L Alkaline Phosphatase 69 (38-126) U/L Total Creatine Kinase 34 (30-135) U/L CK-MB (CK-2) 1.0 (0.0-2.4) ng/mL CK-MB (CK-2) Rel Index 2.9 Troponin I <0.012 (0.000-0.034) ng/mL Total Protein 6.5 (6.3-8.2) g/dL Albumin 3.7 (3.5-5.0) g/dL 11/01/16 Range/Units 14:45 WBC (3.8-10.6) k/uL RBC (3.80-5.40) m/uL Hgb (11.4-16.0) gm/dL Hct (34.0-46.0) % MCV (80.0-100.0) fL MCH (25.0-35.0) pg MCHC (31.0-37.0) g/dL RDW (11.5-15.5) % Plt Count (150-450) k/uL Neutrophils % % Lymphocytes % % Monocytes % % Eosinophils % % Basophils % % Neutrophils # (1.3-7.7) k/uL Lymphocytes # (1.0-4.8) k/uL Monocytes # (0-1.0) k/uL Eosinophils # (0-0.7) k/uL Basophils # (0-0.2) k/uL PT 11.2 (9.0-12.0) sec INR 1.1 (<1.1) APTT 24.2 (22.0-30.0) sec Sodium (137-145) mmol/L Potassium (3.5-5.1) mmol/L Chloride (98-107) mmol/L Carbon Dioxide (22-30) mmol/L Anion Gap mmol/L BUN (7-17) mg/dL Creatinine (0.52-1.04) mg/dL Est GFR (MDRD) Af Amer (>60 ml/min/1.73 sqM) Est GFR (MDRD) Non-Af (>60 ml/min/1.73 sqM) Glucose (74-99) mg/dL Calcium (8.4-10.2) mg/dL Total Bilirubin (0.2-1.3) mg/dL AST (14-36) U/L ALT (9-52) U/L Alkaline Phosphatase (38-126) U/L Total Creatine Kinase (30-135) U/L CK-MB (CK-2) (0.0-2.4) ng/mL CK-MB (CK-2) Rel Index Troponin I (0.000-0.034) ng/mL Total Protein (6.3-8.2) g/dL Albumin (3.5-5.0) g/dL Disposition Clinical Impression: TIA (transient ischemic attack) Disposition: HOME SELF-CARE Condition: Good Referrals: Reese Allen DO [Primary Care Provider] - 1-2 days Margarita Sánchez MD [STAFF PHYSICIAN] - 1-2 days
[2016-11-01 15:09] LABS: Basophils % (A) 1 %; CH 30.4; Eosinophils # (A) 0.1 k/uL (0-0.7); Eosinophils % (A) 2 %; HCT 28.3 % (34.0-46.0); HDW 3.03; HGB 9.6 gm/dL (11.4-16.0); Luc # (Auto) 0.21; Luc % (Auto) 3; Lymphocytes # (A) 1.4 k/uL (1.0-4.8); Lymphocytes % (A) 22 %; MCH 29.7 pg (25.0-35.0); Mean Platelet Volume 7.5; Monocytes # (A) 0.3 k/uL (0-1.0); Monocytes % (A) 5 %; Neutrophils # (A) 4.2 k/uL (1.3-7.7); Neutrophils % (A) 67 %; RBC 3.24 m/uL (3.80-5.40); RDW 14.4 % (11.5-15.5); WBC 6.3 k/uL (3.8-10.6); WBC (Perox) 6.48
[2016-11-01 15:11] LABS: MCV 87.2 fL (80.0-100.0)
[2016-11-01 15:17] LABS: INR 1.1 (<1.1); Partial Thromboplastin Time 24.2 sec (22.0-30.0); Prothrombin Time 11.2 sec (9.0-12.0)
--- NOTE | 2016-11-01 15:18 | XR ---
EXAMINATION TYPE: XR chest 2V DATE OF EXAM: 11/01/2016 COMPARISON: Chest x-ray October 01, 2016. HISTORY: Pneumonia progress study. TECHNIQUE: Frontal and lateral views of the chest are obtained. FINDINGS: There is chronic parenchymal change with right suprahilar linear scarring redemonstrated. No new suspicious focal air opacity or pneumothorax is seen currently. Cannot exclude tiny left pleu ral effusion stable from prior. The cardiac silhouette size is within normal limits with atherosclero tic change in thoracic aorta. The osseous structures are intact. IMPRESSION: Chronic parenchymal change without suspicious acute infiltrate currently. Marked interva l improvement in right lower lung opacity.
--- NOTE | 2016-11-01 15:20 | CT ---
EXAMINATION TYPE: CT brain wo con DATE OF EXAM: 11/01/2016 HISTORY: Weakness, hx of stroke. CT DLP: 981.7 mGycm. Automated Exposure Control for Dose Reduction was Utilized. TECHNIQUE: CT scan of the head is performed without contrast. COMPARISON: CT brain December 16, 2011. FINDINGS: There is no acute intracranial hemorrhage or midline shift identified. There is diffuse v entricular and sulcal prominence consistent with diffuse age-related cerebral atrophy. There is low- attenuation in the periventricular white matter progressed from prior study most likely on basis of p roduct of chronic small vessel ischemic change in patient of this age. The globes are intact and the visualized sinuses are clear. IMPRESSION: No acute intracranial hemorrhage or midline shift. There is mild to moderate diffuse ag e-related cerebral atrophy and moderate to severe nonspecific white matter changes with progression f rom 2011 study favoring product of chronic small vessel ischemic change though areas of acute/subacut e stroke are difficult to entirely exclude. Need to further investigate by MRI should be based on cli nical correlation.
[2016-11-01 15:21] LABS: ALT 38 U/L (9-52); AST 33 U/L (14-36); Alkaline Phosphatase 69 U/L (38-126); Anion Gap 7 mmol/L; Blood Urea Nitrogen 22 mg/dL (7-17); Calcium 8.7 mg/dL (8.4-10.2); Carbon Dioxide 29 mmol/L (22-30); Chloride 95 mmol/L (98-107); Glucose 108 mg/dL (74-99); Non-African American GFR(MDRD) >60 (>60 ml/min/1.73 sqM); Potassium 4.2 mmol/L (3.5-5.1); Sodium 131 mmol/L (137-145); Total Bilirubin 0.6 mg/dL (0.2-1.3); Total Protein 6.5 g/dL (6.3-8.2)
[2016-11-01 15:25] LABS: Creatine Kinase 34 U/L (30-135)
[2016-11-01 15:38] LABS: Troponin I <0.012 ng/mL (0.000-0.034)
[2016-11-01 17:21] VITALS: BP 148/66; PULSE 61; RESP 16; TEMP 98.4
== END 2016-11-01 17:48 | disposition home or self-care (01) ==
LOC: EC 14:12
DX: G45.9 Transient cerebral ischemic attack, unspecified (principal); J44.9 Chronic obstructive pulmonary disease, unspecified; M79.7 Fibromyalgia; K21.9 Gastro-esophageal reflux disease without esophagitis; E78.5 Hyperlipidemia, unspecified; I10 Essential (primary) hypertension; M19.90 Unspecified osteoarthritis, unspecified site; E11.9 Type 2 diabetes mellitus without complications; F32.9 Major depressive disorder, single episode, unspecified; Z87.891 Personal history of nicotine dependence; Z86.718 Personal history of other venous thrombosis and embolism; Z85.118 Personal history of other malignant neoplasm of bronchus and lung; Z86.73 Personal history of transient ischemic attack (TIA), and cerebral infarction without residual deficits; Z79.82 Long term (current) use of aspirin; Z79.51 Long term (current) use of inhaled steroids; Z79.01 Long term (current) use of anticoagulants; Z79.4 Long term (current) use of insulin; Z79.899 Other long term (current) drug therapy
CPT/HCPCS: 36415; 70450; 71020; 80053; 82550; 82553; 84484; 85025; 85610; 85730; 93005; 96360; 96361; 99284

== ENCOUNTER 2016-11-05 16:35 | Inpatient (IN) | payer MEDICARE, OTHER ==
[2016-11-05] MEDS ORDERED: ASPIRIN 81 MG CHEW PO STA (17:20)
[2016-11-05] MEDS ORDERED: NITROGLYCERIN OINT 1 INCH/GM PACKET TOPICAL STA (17:20)
--- NOTE | 2016-11-05 17:24 | ED ---
General Adult HPI - General Chief complaint: Arrhythmia/Palpitations Stated complaint: Irregular Heart beat Time Seen by Provider: 11/05/16 17:15 Source: patient, family, RN notes reviewed Mode of arrival: wheelchair Limitations: no limitations - History of Present Illness Initial comments: This is a 76-year-old female who presents emergency Department with new onset A. fib about a week ago. Patient states she is post get cardioverted tomorrow but she was feeling extremely weak so she follow-up with Dr. Judd for [facility] because she was having atrial flutter with 21 block. Patient denies any chest pain but she states there is some pain in her shoulders. Patient denies any shortness of breath or difficulty breathing. Patient states she has generalized weakness for focal weakness. Patient denies lightheadedness dizziness or near syncopal episode. Patient denies any recent fever chills or cough. Patient denies any nausea vomiting or diarrhea. Patient denies abdominal pain - Related Data Home Medications Medication Instructions Recorded Confirmed Atorvastatin Calcium [Lipitor] 80 mg PO HS 09/23/16 11/05/16 Cyclobenzaprine [Flexeril] 10 mg PO HS PRN 09/23/16 11/05/16 Fluticasone/Salmeterol [Advair 1 puff INHALATION RT-BID 09/23/16 11/05/16 100-50 Diskus] Gabapentin [Neurontin] 100 mg PO TID PRN 09/23/16 11/05/16 Multivitamins, Thera [Multivitamin 1 tab PO W/SUPPER 09/23/16 11/05/16 (formulary)] Pantoprazole Sodium [Protonix] 40 mg PO QAM 09/23/16 11/05/16 Vits A,C,E/Lutein/Minerals 1 tab PO W/SUPPER 09/23/16 11/05/16 [Ocuvite with Lutein Tablet] l-Mefol/A-Cyst/Meb12/Algal Oil 1 tab PO W/SUPPER 09/23/16 11/05/16 [Cerefolin Nac Caplet] Aspirin EC [Ecotrin Low Dose] 81 mg PO W/SUPPER 11/05/16 11/05/16 Cholecalciferol [Vitamin D3] 1,000 unit PO W/SUPPER 11/05/16 11/05/16 Ferrous Sulfate [Feosol] 325 mg PO W/SUPPER 11/05/16 11/05/16 Gabapentin [Neurontin] 200 mg PO TID PRN 11/05/16 11/05/16 Gabapentin [Neurontin] 300 mg PO TID PRN 11/05/16 11/05/16 Hydrocodone/Acetaminophen [[place] 1 tab PO TID PRN 11/05/16 11/05/16 10-325 Tablet] Lisinopril [Zestril] 2.5 mg PO HS 11/05/16 11/05/16 Melatonin 10 mg PO HS 11/05/16 11/05/16 Ranitidine HCl [Zantac] 150 mg PO HS 11/05/16 11/05/16 Spironolactone [Aldactone] 25 mg PO QAM 11/05/16 11/05/16 Previous Rx's Medication Instructions Recorded ALPRAZolam [Xanax] 0.5 mg PO TID PRN #10 tab 10/02/16 Apixaban [Eliquis] 2.5 mg PO BID tablet 10/02/16 Furosemide [Lasix] 40 mg PO BID@0900,1600 tab 10/02/16 Ipratropium Nebulized [Atrovent 0.5 mg INHALATION RT-QID nebu 10/02/16 Nebulized] Levalbuterol Nebulized (Conc) 1.25 mg INHALATION RT-QID nebule 10/02/16 [Xopenex Nebulized (Conc)] Metoprolol Tartrate [Lopressor] 50 mg PO BID #1 tab 10/02/16 Allergies Allergy/AdvReac Type Severity Reaction Status Date / Time No Known Allergies Allergy Verified 11/05/16 18:03 Review of Systems ROS Statement: Those systems with pertinent positive or pertinent negative responses have been documented in the HPI. ROS Other: All systems not noted in ROS Statement are negative. Past Medical History Past Medical History: Atrial Fibrillation, Cancer, COPD, CVA/TIA, Deep Vein Thrombosis (DVT), Fibromyalgia, GERD/Reflux, Hyperlipidemia, Hypertension, Osteoarthritis (OA), Sleep Apnea/CPAP/BIPAP, Vascular Disorder Additional Past Medical History / Comment(s): back pain , lung cancer-radiation opnly, HOME 02 2 LITERS [place], BLOOD CLOT AFTER SX, CVA LT SIDE AFFECTED SINCE RESOLVED, HIATAL HERNIA. SHINGLES 30 YEARS AGO, DOES'NT USE CPAP MACHINE.in past for short period of time took oral meds for dm-then taken off meds-pt stated not considered diabetic now but occ will check bs., macular degeneration.past broken rt leg and lt wrist History of Any Multi-Drug Resistant Organisms: MRSA Date of last positivie culture/infection: 09/25/16 MDRO Source:: BRONCH WASH Past Surgical History: Cholecystectomy, Heart Catheterization With Stent, Orthopedic Surgery, Tonsillectomy Additional Past Surgical History / Comment(s): rt leg repaired after break-has pins, lt wrist-plate and screws.lung bx, stents tung groins Past Anesthesia/Blood Transfusion Reactions: Family History of Problems w/ Anesthesia Additional Past Anesthesia/Blood Transfusion Reaction / Comment(s): daughter has diff waking after aa Date of Last Stent Placement:: unk Past Psychological History: Depression Additional Psychological History / Comment(s): pt lives between [place] and [place]. does'nt drive- either daughters or sister takes her places. has home 02, nebulizer. . Ongoing tobacco smoker stopping just a short time ago. Has a history of lung cancer Smoking Status: Former smoker Past Alcohol Use History: Occasional Additional Past Alcohol Use History / Comment(s): started smopking at age 14( 1955), quit 1976 Past Drug Use History: None Reported - Past Family History Father Family Medical History: Congestive Heart Failure (CHF), COPD Additional Family Medical History / Comment(s): emphysema Mother Family Medical History: Cancer General Exam - General Exam Comments Initial Comments: GENERAL: Patient is well-developed and well-nourished. Patient is nontoxic and well- hydrated and is in distress. ENT: Neck is soft and supple. No significant lymphadenopathy is noted. Oropharynx is clear. Moist mucous membranes. Neck has full range of motion without eliciting any pain. EYES: The sclera were anicteric and conjunctiva were pink and moist. Extraocular movements were intact and pupils were equal round and reactive to light. Eyelids were unremarkable. PULMONARY: Unlabored respirations. Good breath sounds bilaterally. No audible rales rhonchi or wheezing was noted. CARDIOVASCULAR: There is a regular rate and rhythm without any murmurs gallops or rubs. ABDOMEN: Soft and nontender with normal bowel sounds. No palpable organomegaly was noted. There is no palpable pulsatile mass. SKIN: Skin is clear with no lesions or rashes and otherwise unremarkable. NEUROLOGIC: Patient is alert and oriented x3. Cranial nerves II through XII are grossly intact. Motor and sensory are also intact. Normal speech, volume and content. Symmetrical smile. MUSCULOSKELETAL: Normal extremities with adequate strength and full range of motion. No lower extremity swelling or edema. No calf tenderness. LYMPHATICS: No significant lymphadenopathy is noted PSYCHIATRIC: Normal psychiatric evaluation. Normal interpersonal interactions appears functionally intact in deals appropriately with others. No signs of depression. No signs of anxiety. Limitations: no limitations Course Vital Signs 11/05/16 11/05/16 16:37 17:42 Temperature 98.2 F Pulse Rate 136 H 131 H Respiratory 20 18 Rate Blood Pressure 109/72 110/63 O2 Sat by Pulse 99 100 Oximetry Medical Decision Making - Medical Decision Making EKG shows atrial flutter with a 2-1 AV block at 134 bpm QRS is 82 QT interval 368 QTC is 549. Patient's EKG shows no ST segment elevation EKG shows an inferior infarct or bleed it's because it has Q waves in leads II, III, and F aVF. Chest x-ray shows no acute abnormality. I spoke with Dr. Galeano he wanted the patient on Cardizem drip so I started a Cardizem drip at 5/h - Lab Data Result diagrams: 11/05/16 17:24 11/05/16 17:24 Lab Results 11/05/16 11/05/16 11/05/16 Range/Units 17:24 17:24 17:24 WBC 13.6 H (3.8-10.6) k/uL RBC 4.00 (3.80-5.40) m/uL Hgb 12.1 (11.4-16.0) gm/dL Hct 36.0 (34.0-46.0) % MCV 90.0 (80.0-100.0) fL MCH 30.4 (25.0-35.0) pg MCHC 33.7 (31.0-37.0) g/dL RDW 14.7 (11.5-15.5) % Plt Count 369 (150-450) k/uL Neutrophils % 63 % Lymphocytes % 24 % Monocytes % 7 % Eosinophils % 2 % Basophils % 1 % Neutrophils # 8.6 H (1.3-7.7) k/uL Lymphocytes # 3.2 (1.0-4.8) k/uL Monocytes # 0.9 (0-1.0) k/uL Eosinophils # 0.3 (0-0.7) k/uL Basophils # 0.1 (0-0.2) k/uL PT (9.0-12.0) sec INR (<1.1) APTT (22.0-30.0) sec Sodium 135 L (137-145) mmol/L Potassium 5.5 H (3.5-5.1) mmol/L Chloride 96 L (98-107) mmol/L Carbon Dioxide 28 (22-30) mmol/L Anion Gap 11 mmol/L BUN 32 H (7-17) mg/dL Creatinine 1.25 H (0.52-1.04) mg/dL Est GFR (MDRD) Af Amer 50 (>60 ml/min/1.73 sqM) Est GFR (MDRD) Non-Af 42 (>60 ml/min/1.73 sqM) Glucose 128 H (74-99) mg/dL Calcium 10.1 (8.4-10.2) mg/dL Magnesium 1.5 L (1.6-2.3) mg/dL Total Bilirubin 0.6 (0.2-1.3) mg/dL AST 31 (14-36) U/L ALT 37 (9-52) U/L Alkaline Phosphatase 81 (38-126) U/L Total Creatine Kinase 25 L (30-135) U/L CK-MB (CK-2) 1.0 (0.0-2.4) ng/mL CK-MB (CK-2) Rel Index 4.0 Troponin I <0.012 (0.000-0.034) ng/mL Total Protein 7.3 (6.3-8.2) g/dL Albumin 4.2 (3.5-5.0) g/dL 11/05/16 Range/Units 17:24 WBC (3.8-10.6) k/uL RBC (3.80-5.40) m/uL Hgb (11.4-16.0) gm/dL Hct (34.0-46.0) % MCV (80.0-100.0) fL MCH (25.0-35.0) pg MCHC (31.0-37.0) g/dL RDW (11.5-15.5) % Plt Count (150-450) k/uL Neutrophils % % Lymphocytes % % Monocytes % % Eosinophils % % Basophils % % Neutrophils # (1.3-7.7) k/uL Lymphocytes # (1.0-4.8) k/uL Monocytes # (0-1.0) k/uL Eosinophils # (0-0.7) k/uL Basophils # (0-0.2) k/uL PT 11.4 (9.0-12.0) sec INR 1.1 (<1.1) APTT 24.3 (22.0-30.0) sec Sodium (137-145) mmol/L Potassium (3.5-5.1) mmol/L Chloride (98-107) mmol/L Carbon Dioxide (22-30) mmol/L Anion Gap mmol/L BUN (7-17) mg/dL Creatinine (0.52-1.04) mg/dL Est GFR (MDRD) Af Amer (>60 ml/min/1.73 sqM) Est GFR (MDRD) Non-Af (>60 ml/min/1.73 sqM) Glucose (74-99) mg/dL Calcium (8.4-10.2) mg/dL Magnesium (1.6-2.3) mg/dL Total Bilirubin (0.2-1.3) mg/dL AST (14-36) U/L ALT (9-52) U/L Alkaline Phosphatase (38-126) U/L Total Creatine Kinase (30-135) U/L CK-MB (CK-2) (0.0-2.4) ng/mL CK-MB (CK-2) Rel Index Troponin I (0.000-0.034) ng/mL Total Protein (6.3-8.2) g/dL Albumin (3.5-5.0) g/dL Disposition Clinical Impression: Atrial fibrillation with rapid ventricular response Disposition: ADMITTED IP TO THIS HOSP Referrals: Reese Allen DO [Primary Care Provider] - 1-2 days Time of Disposition: 18:48
[2016-11-05 17:47] LABS: Basophils # (A) 0.1 k/uL (0-0.2); Basophils % (A) 1 %; CH 30.6; CHCM 34.1; Eosinophils # (A) 0.3 k/uL (0-0.7); Eosinophils % (A) 2 %; HDW 2.92; HGB 12.1 gm/dL (11.4-16.0); Luc # (Auto) 0.52; Luc % (Auto) 4; Lymphocytes # (A) 3.2 k/uL (1.0-4.8); Lymphocytes % (A) 24 %; MCH 30.4 pg (25.0-35.0); MCHC 33.7 g/dL (31.0-37.0); Monocytes # (A) 0.9 k/uL (0-1.0); Monocytes % (A) 7 %; Neutrophils # (A) 8.6 k/uL (1.3-7.7); Neutrophils % (A) 63 %; RDW 14.7 % (11.5-15.5); WBC 13.6 k/uL (3.8-10.6); WBC (Perox) 14.21
[2016-11-05 17:49] LABS: INR 1.1 (<1.1); Partial Thromboplastin Time 24.3 sec (22.0-30.0); Prothrombin Time 11.4 sec (9.0-12.0)
--- NOTE | 2016-11-05 17:55 | XR ---
EXAMINATION TYPE: XR chest 2V DATE OF EXAM: 11/05/2016 COMPARISON: 11/01/2016 HISTORY: Difficulty breathing TECHNIQUE: Frontal and lateral views of the chest are obtained. FINDINGS: There is no heart failure. Heart size is normal. Pulmonary vascularity is normal. Thoracic aorta is atheromatous. There is coarsening of interstitial markings in the right lung. IMPRESSION: There is a mild patchy infiltrate in the right lung without change compared to last exam . Right posterior sixth rib fracture is noted.
[2016-11-05 17:59] LABS: Calcium 10.1 mg/dL (8.4-10.2); Magnesium 1.5 mg/dL (1.6-2.3); Potassium 5.5 mmol/L (3.5-5.1); Total Bilirubin 0.6 mg/dL (0.2-1.3); Total Protein 7.3 g/dL (6.3-8.2)
[2016-11-05 18:02] LABS: Creatine Kinase 25 U/L (30-135)
[2016-11-05 18:15] LABS: Troponin I <0.012 ng/mL (0.000-0.034)
[2016-11-05] MEDS ORDERED: MAGNESIUM SULFATE-D5W PMX 1 GM in DEXTROSE/WATER 1 100ML.BAG IVPB ONE (18:17)
[2016-11-05] MEDS ORDERED: SODIUM POLYSTYRENE SULFONATE 15 GM/60 ML BOTTLE PO ONE (18:26)
[2016-11-05] MEDS ORDERED: DILTIAZEM 125 MG in SODIUM CHLORIDE 0.9% 100 ML IV ONE (18:36)
[2016-11-05] MEDS ORDERED: NITROGLYCERIN SL TABS 0.4 MG TAB SUBLINGUAL PRN (18:49)
[2016-11-05] MEDS ORDERED: ALPRAZolam 0.5 MG TAB PO PRN (22:58)
[2016-11-05] MEDS ORDERED: CYCLOBENZAPRINE 10 MG TAB PO PRN (22:58)
[2016-11-05] MEDS ORDERED: MELATONIN 5 MG TABLET PO SCH (23:00)
[2016-11-05] MEDS ORDERED: ATORVASTATIN 80 MG TAB PO SCH (23:00)
[2016-11-06 00:35] LABS: Creatine Kinase 20 U/L (30-135)
[2016-11-06 00:47] LABS: Creatine Kinase MB 0.9 ng/mL (0.0-2.4); Troponin I <0.012 ng/mL (0.000-0.034)
[2016-11-06 06:17] LABS: Magnesium 1.8 mg/dL (1.6-2.3)
[2016-11-06 06:30] LABS: Creatine Kinase 22 U/L (30-135)
[2016-11-06 06:44] LABS: Creatine Kinase MB 0.9 ng/mL (0.0-2.4); Troponin I <0.012 ng/mL (0.000-0.034)
[2016-11-06] MEDS: LEVALBUTEROL NEB 1.25 MG/3 ML AMP INHALATION SCH ×2 (07:12→12:01)
[2016-11-06] MEDS ORDERED: PROPOFOL 10 MG/ML 20 ML VIAL IV ONE (07:20)
[2016-11-06] MEDS ORDERED: LIDOCAINE 1% INJ 10MG/ML (20 ML MDV) ONE (07:20)
[2016-11-06] MEDS ORDERED: LACTATED RINGERS 1,000 ML BAG IV ONE (07:44)
[2016-11-06] MEDS ORDERED: LEVALBUTEROL NEB (CONC) 1.25 MG/0.5 ML AMP INHALATION SCH (08:00)
[2016-11-06] MEDS: FUROSEMIDE 40 MG TAB PO SCH ×2 (08:51→16:26)
[2016-11-06] MEDS ORDERED: APIXABAN 2.5 MG TABLET PO SCH (09:00)
[2016-11-06] MEDS ORDERED: ASPIRIN 325 MG TAB PO SCH (09:00)
[2016-11-06] MEDS ORDERED: PANTOPRAZOLE 40 MG TABLET PO SCH (09:00)
[2016-11-06] MEDS ORDERED: METOPROLOL TARTRATE 50 MG TAB PO SCH ×2 (09:00→16:00)
--- NOTE | 2016-11-06 09:52 | CE ---
DATE OF SERVICE: 11/06/2016 CARDIOVERSION: INDICATION: This is a pleasant 76-year-old female patient who was admitted to the hospital with A. Fib RVR and she was scheduled already to have a HUE cardioversion as an outpatient. She underwent a HUE which showed no evidence of left atrial appendage thrombus. COMPLICATIONS: None. LEVEL OF SEDATION: Deep sedation was performed with anesthesiology in the room. PROCEDURE DESCRIPTION: After transesophageal echocardiogram was performed and left atrial appendage thrombus was ruled out, we proceeded with a cardioversion. The patient converted from atrial flutter to a normal sinus mechanism using ( ) joules on first attempt. CONCLUSION: Successful cardioversion of atrial flutter to normal sinus mechanism using ( ) joules at first attempt.
--- NOTE | 2016-11-06 09:59 | ECHOT ---
DATE OF SERVICE: 11/06/2016 INDICATION: This is a pleasant 76-year-old female patient who was diagnosed with atrial fibrillation and was admitted to the hospital with A. fib and RVR. The plan is to proceed with a cardioversion. SEDATION: Deep sedation was performed with anesthesiologist in the room. COMPLICATIONS: None. PROCEDURE DESCRIPTION: After obtaining informed consent, the patient was brought to the transesophageal echocardiogram suite. BOX LOADER: Lazaro Lance MD, wet milling wheel operator. PROCEDURE PERFORMED: Transesophageal echocardiogram. INDICATION: LEVEL OF SEDATION: Conscious sedation PROCEDURE DESCRIPTION: After obtaining an informed consent, explaining the procedure, benefits, risks, complications and alternatives, the patient was brought to the transesophageal echocardiogram suite. A pulse oximetry and heart rate monitors were attached to the patient prior to the procedure. The patient's throat was sprayed using lidocaine locally. Following that, the patient was turned into left lateral position. A bite guard was placed and the patient was then sedated with the above doses of Versed and fentanyl in divided doses. Following that, the transesophageal echocardiogram probe was advanced through the bite guard into the mid esophagus where 2-D echocardiogram images as well as color Doppler images of various cardiac structures were obtained. We evaluated the interatrial septum using 2-D echocardiogram, color Doppler, and contrast study. The procedure was completed. There were no complications. FINDINGS: The left ventricular dimension appeared to be within normal limits. The left ventricular systolic function appeared to be mildly impaired with EF around 40% to 45% with global hypokinesia. The right ventricle is of normal size and function. The left atrium appeared to be within normal limits for dimension. The left atrial appendage appeared to be free from any thrombus. The intra-atrial septum appeared to be intact. The aortic valve is a trileaflet valve without stenosis with mild insufficiency. The mitral valve seems to be mildly thickened with mild MR, normal tricuspid valve and pulmonic valve. CONCLUSION: 1. Normal left atrial appendage without any evidence of thrombus. 2. Intact intra-atrial septum without any evidence of shunt. 3. Mildly impaired left ventricular function with an ejection fraction between 40% to 45%. 4. Aortic sclerosis without stenosis with mild insufficiency. 5. Thickened mitral valve leaflets with mild mitral regurgitation. 6. Normal tricuspid valve and pulmonic valve. 7. Atherosclerotic plaque was seen in the ascending as well as descending aorta. 8. There is no evidence of pericardial effusion.
[2016-11-06] MEDS ORDERED: HYDROcodone/APAP 10-325MG 1 EACH TAB PO PRN (10:14)
--- NOTE | 2016-11-06 10:38 | P.CRDCN ---
History of Present Illness Consult date: 11/06/16 Requesting physician: Jj Rubi Consult reason: atrial fibrillation Chief complaint: Heart racing History of present illness: This is a 76-year-old female with history of coronary artery disease and multiple stent placements, mild cardiomyopathy, peripheral arterial disease with prior peripheral arterial stenting, history of lung CA, hypertension, hyperlipidemia, paroxysmal atrial fibrillation, who was seen in September in the hospital by Dr. Rodriguez. At that time the patient was admitted to the hospital with pneumonia and heart failure, went into atrial fibrillation with rapid ventricular response , for which cardiology was consulted. She was also seen by Dr. Rodriguez in the office and scheduled to have a HUE and cardioversion as an outpatient. Patient was seen by her primary care doctor in the office yesterday , he felt that her heart rate was too fast and center to the emergency room for admission. She did go down this morning and have successful HUE and cardioversion. In a normal sinus rhythm this morning. At the time of my examination, denies any palpitations, breathing is stable. Past Medical History Past Medical History: Atrial Fibrillation, Cancer, COPD, CVA/TIA, Deep Vein Thrombosis (DVT), Fibromyalgia, GERD/Reflux, Hyperlipidemia, Hypertension, Osteoarthritis (OA), Sleep Apnea/CPAP/BIPAP, Vascular Disorder Additional Past Medical History / Comment(s): back pain , lung cancer-radiation opnly, HOME 02 2 LITERS [place], BLOOD CLOT AFTER SX, CVA LT SIDE AFFECTED SINCE RESOLVED, HIATAL HERNIA. SHINGLES 30 YEARS AGO, DOES'NT USE CPAP MACHINE.in past for short period of time took oral meds for dm-then taken off meds-pt stated not considered diabetic now but occ will check bs., macular degeneration.past broken rt leg and lt wrist History of Any Multi-Drug Resistant Organisms: MRSA Date of last positivie culture/infection: 09/25/16 MDRO Source:: BRONCH WASH Past Surgical History: Cholecystectomy, Heart Catheterization With Stent, Orthopedic Surgery, Tonsillectomy Additional Past Surgical History / Comment(s): rt leg repaired after break-has pins, lt wrist-plate and screws.lung bx, stents tung groins Past Anesthesia/Blood Transfusion Reactions: Family History of Problems w/ Anesthesia Additional Past Anesthesia/Blood Transfusion Reaction / Comment(s): daughter has diff waking after aa Date of Last Stent Placement:: unk Past Psychological History: Depression Additional Psychological History / Comment(s): pt lives between [place] and [place]. does'nt drive- either daughters or sister takes her places. has home 02, nebulizer. . Ongoing tobacco smoker stopping just a short time ago. Has a history of lung cancer Smoking Status: Former smoker Past Alcohol Use History: None Reported, Occasional Additional Past Alcohol Use History / Comment(s): started smopking at age 14( 1955), quit 2016 Past Drug Use History: None Reported - Past Family History Father Family Medical History: Congestive Heart Failure (CHF), COPD Additional Family Medical History / Comment(s): emphysema Mother Family Medical History: Cancer Medications and Allergies Home Medications Medication Instructions Recorded Confirmed Type Atorvastatin Calcium [Lipitor] 80 mg PO HS 09/23/16 11/05/16 History Cyclobenzaprine [Flexeril] 10 mg PO HS PRN 09/23/16 11/05/16 History Fluticasone/Salmeterol [Advair 1 puff INHALATION RT-BID 09/23/16 11/05/16 History 100-50 Diskus] Gabapentin [Neurontin] 100 mg PO TID PRN 09/23/16 11/05/16 History Multivitamins, Thera [Multivitamin 1 tab PO W/SUPPER 09/23/16 11/05/16 History (formulary)] Pantoprazole Sodium [Protonix] 40 mg PO QAM 09/23/16 11/05/16 History Vits A,C,E/Lutein/Minerals 1 tab PO W/SUPPER 09/23/16 11/05/16 History [Ocuvite with Lutein Tablet] l-Mefol/A-Cyst/Meb12/Algal Oil 1 tab PO W/SUPPER 09/23/16 11/05/16 History [Cerefolin Nac Caplet] Aspirin EC [Ecotrin Low Dose] 81 mg PO W/SUPPER 11/05/16 11/05/16 History Cholecalciferol [Vitamin D3] 1,000 unit PO W/SUPPER 11/05/16 11/05/16 History Ferrous Sulfate [Feosol] 325 mg PO W/SUPPER 11/05/16 11/05/16 History Gabapentin [Neurontin] 200 mg PO TID PRN 11/05/16 11/05/16 History Gabapentin [Neurontin] 300 mg PO TID PRN 11/05/16 11/05/16 History Hydrocodone/Acetaminophen [[place] 1 tab PO TID PRN 11/05/16 11/05/16 History 10-325 Tablet] Lisinopril [Zestril] 2.5 mg PO HS 11/05/16 11/05/16 History Melatonin 10 mg PO HS 11/05/16 11/05/16 History Ranitidine HCl [Zantac] 150 mg PO HS 11/05/16 11/05/16 History Allergies Allergy/AdvReac Type Severity Reaction Status Date / Time No Known Allergies Allergy Verified 11/05/16 18:03 Physical Exam Vitals: Vital Signs Temp Pulse Pulse Resp BP BP Pulse Ox 11/06/16 08:35 97.0 F L 65 18 96/54 100 11/06/16 04:00 98.0 F 113 H 17 107/61 99 11/06/16 00:00 97.5 F L 135 H 16 104/65 95 11/05/16 21:49 97.8 F 138 H 18 101/66 91 L 11/05/16 21:33 113 H 16 97/54 99 11/05/16 20:47 103 H 16 99/70 100 11/05/16 19:13 97.6 F 98 16 96/56 100 11/05/16 17:42 131 H 18 110/63 100 11/05/16 16:37 98.2 F 136 H 20 109/72 99 Intake and Output 11/05/16 11/06/16 11/06/16 22:59 06:59 14:59 Other: Voiding Method Toilet Toilet # Voids 1 1 Weight 50.3 kg 51.5 kg PHYSICAL EXAMINATION: HEENT: Head is atraumatic, normocephalic. Pupils equal, round. Neck is supple. There is no elevated jugular venous pressure. HEART EXAMINATION: Heart S1, S2 normal. No murmur or gallop heard. CHEST EXAMINATION: Lungs are clear to auscultation and precussion. No chest wall tenderness is noted on palpation or with deep breathing. ABDOMEN: Soft, nontender. Bowel sounds are heard. No organomegaly noted. EXTREMITIES: 2+ peripheral pulses with no evidence of peripheral edema and no calf tenderness noted. NEUROLOGIC patient is awake, alert and oriented -3. . Results 11/05/16 17:24 11/05/16 17:24 Cardiac Enzymes 11/05/16 11/05/16 11/05/16 Range/Units 17:24 17:24 23:32 AST 31 (14-36) U/L CK-MB (CK-2) 1.0 0.9 (0.0-2.4) ng/mL Troponin I <0.012 <0.012 (0.000-0.034) ng/mL 11/06/16 Range/Units 05:33 AST (14-36) U/L CK-MB (CK-2) 0.9 (0.0-2.4) ng/mL Troponin I <0.012 (0.000-0.034) ng/mL Coagulation 11/05/16 Range/Units 17:24 PT 11.4 (9.0-12.0) sec APTT 24.3 (22.0-30.0) sec Lipids 11/06/16 Range/Units 05:33 Triglycerides 247 H (<150) mg/dL Cholesterol 127 (<200) mg/dL HDL Cholesterol 45 (40-60) mg/dL CBC 11/05/16 Range/Units 17:24 WBC 13.6 H (3.8-10.6) k/uL RBC 4.00 (3.80-5.40) m/uL Hgb 12.1 (11.4-16.0) gm/dL Hct 36.0 (34.0-46.0) % Plt Count 369 (150-450) k/uL Comprehensive Metabolic Panel 11/05/16 Range/Units 17:24 Sodium 135 L (137-145) mmol/L Potassium 5.5 H (3.5-5.1) mmol/L Chloride 96 L (98-107) mmol/L Carbon Dioxide 28 (22-30) mmol/L BUN 32 H (7-17) mg/dL Creatinine 1.25 H (0.52-1.04) mg/dL Glucose 128 H (74-99) mg/dL Calcium 10.1 (8.4-10.2) mg/dL AST 31 (14-36) U/L ALT 37 (9-52) U/L Alkaline Phosphatase 81 (38-126) U/L Total Protein 7.3 (6.3-8.2) g/dL Albumin 4.2 (3.5-5.0) g/dL Current Medications Generic Name Dose Route Start Last Admin Trade Name Freq PRN Reason Stop Dose Admin Hydrocodone Bitart/Acetaminophen 1 each 11/06/16 10:14 [place] 10 PO TID PRN Pain Alprazolam 0.5 mg 11/05/16 22:58 Xanax PO TID PRN Anxiety Apixaban 2.5 mg 11/06/16 09:00 11/06/16 08:51 Eliquis PO 2.5 mg BID LETICIA Administration Aspirin 325 mg 11/06/16 09:00 11/06/16 08:51 Aspirin PO 325 mg DAILY LETICIA Administration Atorvastatin Calcium 80 mg 11/05/16 23:00 11/05/16 23:48 Lipitor PO 80 mg HS LETICIA Administration Cyclobenzaprine HCl 10 mg 11/05/16 22:58 11/06/16 00:32 Flexeril PO 10 mg HS PRN Administration Muscle Spasm Ferrous Sulfate 325 mg 11/06/16 17:30 Feosol PO W/SUPPER LETICIA Furosemide 40 mg 11/06/16 09:00 11/06/16 08:51 Lasix PO 40 mg BID@0900,1600 LETICIA Administration Diltiazem HCl 125 mg/ Sodium 125 mls @ 5 mls/hr 11/05/16 18:36 11/05/16 19:19 Chloride IV 11/06/16 18:35 Not Given .Q24H ONE 5 MG/HR Levalbuterol HCl 1.25 mg 11/06/16 08:00 11/06/16 07:12 Xopenex Nebulized INHALATION Not Given RT-TID LETICIA Lisinopril 2.5 mg 11/06/16 21:00 Zestril PO HS LETICIA Melatonin 10 mg 11/05/16 23:00 11/05/16 23:48 Melatonin PO 10 mg HS LETICIA Administration Metoprolol Tartrate 50 mg 11/06/16 09:00 11/06/16 08:52 Lopressor PO 50 mg BID LETICIA Administration Nitroglycerin 0.4 mg 11/05/16 18:49 Nitrostat SUBLINGUAL Q5M PRN Chest Pain Pantoprazole Sodium 40 mg 11/06/16 09:00 11/06/16 08:52 Protonix PO 40 mg QAM LETICIA Administration Intake and Output 11/05/16 11/06/16 11/06/16 22:59 06:59 14:59 Other: Voiding Method Toilet Toilet # Voids 1 1 Weight 50.3 kg 51.5 kg 11/05/16 17:24 11/05/16 17:24 EKG Interpretations (text) EKG on admission showed atrial flutter with a rapid ventricular response Assessment and Plan Plan: Assessment and plan #1 atrial flutter with rapid ventricular response, paroxysmal, status post HUE and cardioversion this morning. In normal sinus rhythm now. #2 ischemic cardiomyopathy, echocardiogram performed in September of this year revealed an ejection fraction of 40-45%. #3 coronary artery disease with prior stent placements #4 PAD with prior peripheral stenting # 5 hypertension #6 history of lung CA #7 hyperlipidemia Plan We will not repeat an echocardiogram with Doppler study as the patient recently had one one month ago. We will decrease her aspirin to 81 mg daily, continue Eliquis 2-1/2 mg one tablet by mouth twice a day, discontinue Nitropaste, increase metoprolol tartrate 50 mg one tablet by mouth 3 times a day, Dr. Rodriguez had recently increased it to this dose in the office. Follow-up appointment with Dr. Rodriguez. DNP note has been reviewed, I agree with a documented findings and plan of care. Patient was seen and examined.
[2016-11-06 10:52] VITALS: BMI 19.5
[2016-11-06 16:53] LABS: Calcium 9.1 mg/dL (8.4-10.2); Magnesium 1.7 mg/dL (1.6-2.3); Potassium 4.6 mmol/L (3.5-5.1)
[2016-11-06] MEDS ORDERED: ASPIRIN 81 MG CHEW PO SCH (17:30)
[2016-11-06] MEDS ORDERED: FERROUS SULFATE 325 MG TAB PO SCH (17:30)
[2016-11-06 18:24] VITALS: RESP 16; TEMP 97.8
[2016-11-06] MEDS ORDERED: IPRATROPIUM 0.5 MG/2.5 ML NEBU INHALATION SCH (20:00)
--- NOTE | 2016-11-06 20:32 | HP ---
DATE OF ADMISSION: 11/05/2016 PRESENTING COMPLAINT: Heart racing. HISTORY OF PRESENTING COMPLAINT: This is a pleasant 76-year-old patient of Dr. Allen who has known atrial fibrillation. Patient was scheduled for cardioversion this afternoon by Dr. Lance, but for the last 3 or 4 days patient's heart rate has gone up to about 130s; dizzy, lightheaded; tired, and hence she decided to present to the ER. Patient was admitted feeling jittery. Patient's chronic stable medical conditions include COPD, congestive heart failure, coronary artery disease, peripheral arterial disease, hyperlipidemia. REVIEW OF SYSTEMS: CONSTITUTIONAL: Tired. HEENT: None. RESPIRATORY: Slight shortness of breath. CARDIOVASCULAR: As above; heart racing. GASTROINTESTINAL: None. GENITOURINARY: None. MUSCULOSKELETAL: Pain in the joints. DERMATOLOGICAL: None. HEMATOLOGICAL: None. LYMPHATICS: None. PSYCHIATRY: None. NEUROLOGICAL: None. PAST MEDICAL HISTORY: 1. Atrial fibrillation. 2. COPD. 3. Stroke. 4. DVT. 5. Fibromyalgia. 6. GERD. 7. Hyperlipidemia. 8. Hypertension. 9. Osteoarthritis. 10. Sleep apnea. Patient does not use a CPAP machine. 11. Lung cancer with radiation. Home oxygen 2 liters. 12. Blood clot after surgery. 13. CVA affecting left side, since resolved. 14. Hiatal hernia. 15. Shingles. 16. MRSA infection. PAST SURGICAL HISTORY: 1. Cholecystectomy. 2. Cardiac cath with stent. 3. Orthopedic surgery. 4. Tonsillectomy. 5. Right leg repaired after break; has pins. SOCIAL HISTORY: Patient lives between [place] and [place]. Patient smoked from the age of 14 until earlier this year. FAMILY HISTORY: Congestive heart failure, COPD, emphysema. HOME MEDICATIONS: 1. Cerefolin 1 tablet p.o. with supper. 2. Ocuvite with lutein 1 tablet with supper. 3. Zantac 150 mg at bedtime. 4. Protonix 40 mg a day. 5. Multivitamin 1 tablet p.o. with supper. 6. Lopressor 50 mg p.o. b.i.d. 7. Melatonin 10 mg at bedtime. 8. Zestril 2.5 at bedtime. 9. Xopenex nebulizer q.i.d. 10. Atrovent 0.5 q.i.d. 11. [place] 1 tablet t.i.d. p.r.n. 12. Neurontin 200 mg t.i.d. p.r.n. 13. Lasix 40 mg b.i.d. 14. Advair 1 puff b.i.d. 15. Iron 325 with supper. 16. Flexeril 10 mg at bedtime p.r.n. 17. Vitamin D3 1000 units p.o. with supper. 18. Lipitor 80 mg at bedtime. 19. Aspirin 81 mg with supper. 20. Eliquis 2.4 b.i.d. 21. Xanax 0.5 p.o. t.i.d. p.r.n. ALLERGIES: NONE. PHYSICAL EXAMINATION: VITAL SIGNS ON PRESENTATION: Temperature 98.2, pulse 136, respiration 20, blood pressure 109/72, pulse ox 99% on room air. GENERAL APPEARANCE: Average build. Lying in bed, tired-appearing. EYES: Pupils equal. Conjunctivae normal. HEENT: Oral cavity normal. NECK: JVD not raised. Mass not palpable. RESPIRATORY: Effort normal. LUNGS: Diminished breath sounds. CARDIOVASCULAR: First and second seconds normal. No edema. ABDOMEN: Soft, nontender. Liver and spleen not palpable. LYMPHATIC: No lymph node palpable in neck and axillae. PSYCHIATRY: Alert and oriented x3. Mood and affect normal. NEUROLOGICAL: Pupils equal. Cranial nerves grossly intact. Power and sensation grossly intact. MUSCULOSKELETAL: Evidence of osteoarthritis in multiple joints. INVESTIGATIONS: White count 13.6, hemoglobin 12.1. Potassium 5.5. BUN 32, creatinine 1.25. LDL 33. EKG on presentation showed atrial flutter with 2:1 conduction. ASSESSMENT: 1. Atrial flutter with 2:1 conduction, present on admission, symptomatic. 2. History of lung cancer. 3. Chronic obstructive pulmonary disease in an ex-smoker. 4. Chronic congestive heart failure from systolic dysfunction; ejection fraction 40%; underlying coronary artery disease. 5. Coronary artery disease with history of prior stent. 6. Peripheral arterial disease with stents to the groin. 7. Hyperlipidemia. 8. Gastroesophageal reflux disease. 9. Essential hypertension. 10. Primary osteoarthritis in multiple joints, bilateral. 11. Sleep apnea. Patient does not use CPAP. 12. Chronic hypoxic respiratory failure, on 2 liters oxygen at home, from emphysema. 13. Hiatal hernia. 14. Macular degeneration. PLAN: Home medications will be resumed. Earlier patient was taken for cardioversion by Dr. Lance, done successfully. Given patient's high potassium, will hold off patient's BANDAR inhibitor for now. Recheck the same. We will also cut back on the dose of patient's Lasix. Care was discussed with the patient.
[2016-11-06] MEDS ORDERED: LISINOPRIL 2.5 MG TAB PO SCH (21:00)
[2016-11-06] MEDS ORDERED: FAMOTIDINE 20 MG TAB PO SCH (21:00)
[2016-11-07] MEDS ORDERED: ASPIRIN 81 MG CHEW PO SCH (09:00)
--- NOTE | 2016-11-07 19:17 | DS ---
DATE OF ADMISSION: 11/05/2016 DATE OF DISCHARGE: 11/06/2016 FINAL DIAGNOSES: 1. Atrial fibrillation with 2 stone conduction present on symptomatic. 2. History of lung cancer. 3. Chronic obstructive pulmonary disease in an ex-smoker. 4. Chronic congestive heart failure from systolic dysfunction; ejection fraction 45% from underlying coronary artery disease. 5. Coronary artery disease with history of prior stent. 6. Peripheral artery disease with stents in the groin. 7. Hyperlipidemia. 8. Gastroesophageal reflux disease. 9. Essential hypertension. 10. Primary osteoarthritis in multiple joints, bilateral. 11. Sleep apnea. The patient does not use CPAP machine. 12. Chronic hypoxic respiratory failure on 2 liters of oxygen at home. 13. Emphysema. 14. Hiatal hernia. 15. Macular degeneration. HOSPITAL COURSE: This patient with known atrial fibrillation presented with 5 days of dizzy, lightheaded, heart racing found to be in atrial flutter with rapid ventricular rate. Patient had did have cardioversion by Dr. Lance. Doing much better time of discharge. BUN 37, creatinine 1.31. Patient's dose of Lasix has been cut back. Also because patient is hyperkalemic BANDAR inhibitor has been held for right now. DISCHARGE MEDICATIONS: 1. Lasix dose is changed to 40 mg a day. 2. Lisinopril has been discontinued. 3. Lipitor 80 mg q.h.s. 4. Flexeril 10 mg p.o. q.h.s. p.r.n. 5. Advair 100/50 1 puff b.i.d. 6. Multivitamin 1 tablet p.o. with supper. 7. Protonix 40 mg a day. 8. Ocuvite 1 tablet with supper. 9. ( ) 1 tablet p.o. with supper. 10. Xanax 0.5 p.o. t.i.d. p.r.n. 11. Eliquis 2.5 p.o. b.i.d. 12. Atrovent 0.5 mg q.i.d. 13. Xopenex nebulizer 1.25 mg q.i.d. 14. Lopressor 50 mg p.o. b.i.d. 15. Aspirin 81 mg with supper. 16. Vitamin D3 1000 units p.o. with supper. 17. Iron 325 with supper. 18. Ensign 10, 1 tablet t.i.d. p.r.n. 19. Melatonin 10 mg q.h.s. 20. Lasix 40 mg p.o. daily. Follow with Dr. Allen in 2 days, follow with Dr. Lance in one week. LUNGS: Decreased breath sounds. CARDIOVASCULAR: First and second seconds normal.
[2016-11-14 11:55] VITALS: BP 84/52; PULSE 67
== END 2016-11-06 20:05 | disposition home health service (06) | DRG 309 ==
LOC: EC 16:35 → 6SEL 18:50
PROVIDERS: ADMIT Hospitalist; ATTEND Hospitalist
PROC: 5A2204Z Restoration of Cardiac Rhythm, Single (ICD-10-PCS; principal; 2016-11-06 07:15)
DX: I48.92 Unspecified atrial flutter (principal); I50.22 Chronic systolic (congestive) heart failure; J96.11 Chronic respiratory failure with hypoxia; I11.0 Hypertensive heart disease with heart failure; Z99.81 Dependence on supplemental oxygen; I48.0 Paroxysmal atrial fibrillation; J44.9 Chronic obstructive pulmonary disease, unspecified; E87.5 Hyperkalemia; I25.5 Ischemic cardiomyopathy; E11.9 Type 2 diabetes mellitus without complications; I44.1 Atrioventricular block, second degree; I25.10 Atherosclerotic heart disease of native coronary artery without angina pectoris; I73.9 Peripheral vascular disease, unspecified; E78.5 Hyperlipidemia, unspecified; K21.9 Gastro-esophageal reflux disease without esophagitis; M19.91 Primary osteoarthritis, unspecified site; G47.30 Sleep apnea, unspecified; K44.9 Diaphragmatic hernia without obstruction or gangrene; M79.7 Fibromyalgia; F32.9 Major depressive disorder, single episode, unspecified; Z85.118 Personal history of other malignant neoplasm of bronchus and lung; Z87.891 Personal history of nicotine dependence; Z95.5 Presence of coronary angioplasty implant and graft; Z95.828 Presence of other vascular implants and grafts; Z86.14 Personal history of Methicillin resistant Staphylococcus aureus infection; Z86.73 Personal history of transient ischemic attack (TIA), and cerebral infarction without residual deficits; H35.30 Unspecified macular degeneration; Z79.01 Long term (current) use of anticoagulants; Z79.82 Long term (current) use of aspirin; Z79.51 Long term (current) use of inhaled steroids; Z79.899 Other long term (current) drug therapy; Z82.49 Family history of ischemic heart disease and other diseases of the circulatory system
CPT/HCPCS: 36415; 71020; 80048; 80053; 80061; 82550; 82553; 83735; 84484; 85025; 85610; 85730; 92960; 93005; 93312; 93320; 93325; 94640; 96365; 99285

== ENCOUNTER 2016-11-19 17:06 | Observation (INO) | payer MEDICARE, OTHER ==
[2016-11-19] MEDS ORDERED: ALPRAZolam 0.5 MG TAB PO PRN (17:18)
[2016-11-19] MEDS ORDERED: ASPIRIN 325 MG TAB PO STA (17:18)
[2016-11-19] MEDS ORDERED: NITROGLYCERIN SL TABS 0.4 MG TAB SUBLINGUAL PRN (17:18)
[2016-11-19] MEDS ORDERED: SODIUM CHLORIDE 0.9% 1,000 ML in EMPTY BAG 1 BAG IV ONE (17:18)
[2016-11-19] MEDS ORDERED: ATORVASTATIN 80 MG TAB PO STA (17:18)
[2016-11-19] MEDS ORDERED: ALPRAZolam 0.25 MG TAB PO PRN (17:18)
[2016-11-19 19:41] LABS: Basophils # (A) 0.1 k/uL (0-0.2); Basophils % (A) 1 %; CH 29.9; CHCM 32.1; Eosinophils # (A) 0.9 k/uL (0-0.7); Eosinophils % (A) 10 %; HCT 31.9 % (34.0-46.0); HDW 2.77; HGB 10.3 gm/dL (11.4-16.0); Luc # (Auto) 0.19; Luc % (Auto) 2; Lymphocytes # (A) 2.3 k/uL (1.0-4.8); Lymphocytes % (A) 26 %; MCH 30.3 pg (25.0-35.0); MCHC 32.3 g/dL (31.0-37.0); MCV 93.7 fL (80.0-100.0); Mean Platelet Volume 7.7; Monocytes # (A) 0.4 k/uL (0-1.0); Monocytes % (A) 4 %; Neutrophils # (A) 4.9 k/uL (1.3-7.7); Neutrophils % (A) 57 %; RBC 3.41 m/uL (3.80-5.40); RDW 15.1 % (11.5-15.5); WBC 8.6 k/uL (3.8-10.6)
[2016-11-19] MEDS ORDERED: HYDROcodone/APAP 10-325MG 1 EACH TAB PO PRN (19:49)
[2016-11-19] MEDS ORDERED: CYCLOBENZAPRINE 10 MG TAB PO PRN (19:49)
[2016-11-19] MEDS ORDERED: [UNRECOGNIZED DRUG - OTHER] PO SCH (19:51)
[2016-11-19 19:55] LABS: INR 1.1 (<1.1); Prothrombin Time 10.8 sec (9.0-12.0)
[2016-11-19 19:56] LABS: Anion Gap 11 mmol/L; Blood Urea Nitrogen 24 mg/dL (7-17); Carbon Dioxide 29 mmol/L (22-30); Chloride 96 mmol/L (98-107); Glucose 148 mg/dL (74-99); Non-African American GFR(MDRD) >60 (>60 ml/min/1.73 sqM); Potassium 3.7 mmol/L (3.5-5.1); Sodium 136 mmol/L (137-145)
[2016-11-19] MEDS: IPRATROPIUM 0.5 MG/2.5 ML NEBU INHALATION SCH (20:35)
[2016-11-19] MEDS: SYMBICORT 80-4.5 MCG INHALER INHALATION SCH (20:36)
[2016-11-19] MEDS: LEVALBUTEROL NEB (CONC) 1.25 MG/0.5 ML AMP INHALATION SCH (20:36)
[2016-11-19] MEDS: FERROUS SULFATE 325 MG TAB PO SCH (21:09)
[2016-11-19] MEDS: METOPROLOL TARTRATE 50 MG TAB PO SCH (21:09)
[2016-11-19] MEDS: CHOLECALCIFEROL 1,000 UNIT TAB PO SCH (21:09)
[2016-11-19] MEDS: MELATONIN 5 MG TABLET PO SCH (21:10)
[2016-11-19] MEDS: GABAPENTIN 100 MG CAP PO SCH (21:10)
[2016-11-19] MEDS: VIT A,C & E-LUTEIN-MINERALS 1 EACH TAB PO SCH (21:10)
[2016-11-19] MEDS: MULTIVITAMINS, THERA 1 EACH TAB PO SCH (21:10)
[2016-11-19] MEDS: FUROSEMIDE 40 MG TAB PO SCH (21:18)
[2016-11-20] MEDS: METOPROLOL TARTRATE 50 MG TAB PO SCH ×2 (06:07→20:27)
[2016-11-20] MEDS: GABAPENTIN 100 MG CAP PO SCH ×3 (06:07→20:27)
[2016-11-20] MEDS: PANTOPRAZOLE 40 MG TABLET PO SCH (06:07)
[2016-11-20] MEDS: IPRATROPIUM 0.5 MG/2.5 ML NEBU INHALATION SCH ×3 (07:08→16:36)
[2016-11-20] MEDS: SYMBICORT 80-4.5 MCG INHALER INHALATION SCH ×2 (07:08→19:18)
[2016-11-20] MEDS: LEVALBUTEROL NEB (CONC) 1.25 MG/0.5 ML AMP INHALATION SCH ×3 (07:09→16:36)
[2016-11-20] MEDS ORDERED: LIDOCAINE 2% INJ 20 MG/ML (20 ML MDV) ONE (10:12)
[2016-11-20] MEDS ORDERED: MIDAZOLAM 2 MG/2 ML VIAL ONE (10:12)
[2016-11-20] MEDS ORDERED: HEPARIN SODIUM 1,000 UNIT/ML VIAL ONE (10:12)
[2016-11-20] MEDS ORDERED: VERAPAMIL 2.5 MG/ML 2 ML AMP ONE (10:12)
[2016-11-20] MEDS ORDERED: IV FLUID CONTINUATION 1,000 ML IV ONE (10:32)
[2016-11-20] MEDS ORDERED: MIDAZOLAM 2 MG/2 ML VIAL IV ONE (10:48)
[2016-11-20] MEDS ORDERED: LIDOCAINE 2% INJ 20 MG/ML SQ ONE (10:49)
[2016-11-20] MEDS ORDERED: NITROGLYCERIN 1000MCG/10ML SYRINGE INTRAARTER ONE (10:55)
[2016-11-20] MEDS ORDERED: IOHEXOL 350 MG/ML 125ML BOTTLE INJ ONE (11:05)
[2016-11-20] MEDS ORDERED: RX INFO: IV CONTRAST WAS GIVEN 1 EACH MISC MISCELLANE PRN (11:10)
[2016-11-20] MEDS ORDERED: SODIUM CHLORIDE 0.9% 1,000 ML IV SCH (11:15)
--- NOTE | 2016-11-20 11:21 | P.PCN ---
Date of Procedure: 11/20/16 Preoperative Diagnosis: Postoperative Diagnosis: Procedure(s) Performed: Implants: Indications for Procedure: Operative Findings: CARDIAC CATHETERIZATION PERFORMING PHYSICIAN: Lazaro Lance MD,[facility] Indication This is a pleasant 76-year-old female patient who was admitted to the hospital recently with acute respiratory failure. She underwent an echocardiogram which showed cardiomyopathy. A heart catheterization is to rule out any severe underlying CAD. She is known to have CAD with prior stenting of the LCx out of the town. PROCEDURE PERFORMED: 1. Selective right and left coronary angiogram 2. Left heart catheterization APPROACH: Right femoral artery Sedation Moderate sedation was performed with sedation length of 18 minutes PROCEDURE DESCRIPTION: After obtaining an informed consent and explaining the procedure benefits, risks , and complications, the patient was brought to cardiac crime laboratory analyst. Local anesthesia was performed using lidocaine subcutaneously. The right femoral artery was cannulated using puncture technique, the guidewire passed easily, and a 6-Gibraltarian sheath dilator assembly was advanced over the wire then the wire and dilator were removed and sheath was flushed. Selective right and left coronary angiogram using a 6-Gibraltarian JR3.5 and JL3.5 catheters. Following that we did left heart catheterization using 6-Gibraltarian pigtail catheter. The procedure was completed there was no complication. SELECTIVE CORONARY ANGIOGRAM: The right coronary artery: Is a moderate caliber vessel and its a dominant vessel. Its angiographically normal. Left main: Calcified with mild disease only. The left circumflex: Is a large caliber vessel and its a dominant vessel. The proximal left circumflex appears to have mild disease only. The mid left circumflex is angiographically normal and gives rises into the first obtuse marginal branch which is a large caliber vessel with ostial disease about 50%. The distal left circumflex is angiographically normal. The left anterior descending artery: The proximal LAD appears to have mild disease only in the range of 30-40%. This is by the bifurcation of the first diagonal branch which seems to be angiographically normal. The mid LAD is angiographically normal and LAD distally is angiographically normal. HEMODYNAMICS: The left ventricular end-diastolic pressure was 20 mmHg and no gradient was seen across aortic valve CONCLUSION Mild disease involving the RCA Mild disease involving the left main Mild in-stent restenosis of the proximal LCx Intermediate disease involving the ostial first OM Mild disease involving the proximal LAD [] Description of Procedure:
[2016-11-20] MEDS: FUROSEMIDE 40 MG TAB PO SCH (11:48)
[2016-11-20] MEDS ORDERED: ASPIRIN 81 MG CHEW PO SCH (17:30)
[2016-11-20] MEDS: IPRATROPIUM-ALBUTEROL 3 ML NEB INHALATION SCH (19:18)
[2016-11-20] MEDS: CHOLECALCIFEROL 1,000 UNIT TAB PO SCH (19:50)
[2016-11-20] MEDS: VIT A,C & E-LUTEIN-MINERALS 1 EACH TAB PO SCH (19:50)
[2016-11-20] MEDS: FERROUS SULFATE 325 MG TAB PO SCH (19:50)
[2016-11-20] MEDS: MULTIVITAMINS, THERA 1 EACH TAB PO SCH (19:50)
[2016-11-20] MEDS: MELATONIN 5 MG TABLET PO SCH (20:27)
[2016-11-20] MEDS ORDERED: ATORVASTATIN 80 MG TAB PO SCH (21:00)
[2016-11-21] MEDS: IPRATROPIUM-ALBUTEROL 3 ML NEB INHALATION SCH ×2 (07:43→11:57)
[2016-11-21] MEDS: SYMBICORT 80-4.5 MCG INHALER INHALATION SCH (07:44)
[2016-11-21 08:01] VITALS: TEMP 98.2
[2016-11-21] MEDS: PANTOPRAZOLE 40 MG TABLET PO SCH (09:16)
[2016-11-21] MEDS: GABAPENTIN 100 MG CAP PO SCH (09:16)
[2016-11-21] MEDS: METOPROLOL TARTRATE 50 MG TAB PO SCH (09:16)
--- NOTE | 2016-11-21 11:48 | P.DS ---
Providers Date of admission: 11/19/16 17:06 Attending physician: Lazaro Lance Primary care physician: [facility] Course: This is a pleasant 76-year-old female patient who is known to have CAD with prior stenting of the left circumflex was admitted to the hospital yesterday and underwent a heart catheterization from right common femoral artery approach. The cath showed mild nonobstructive coronary artery disease. The patient's going to be discharged home and I will follow-up with the patient next week in the office. Plan - Discharge Summary New Discharge Prescriptions: Continue Multivitamins, Thera [Multivitamin (formulary)] 1 tab PO W/SUPPER Cyclobenzaprine [Flexeril] 10 mg PO HS PRN PRN Reason: Muscle Spasm l-Mefol/A-Cyst/Meb12/Algal Oil [Cerefolin Nac Caplet] 1 tab PO W/SUPPER Pantoprazole Sodium [Protonix] 40 mg PO QAM Fluticasone/Salmeterol [Advair 100-50 Diskus] 1 puff INHALATION RT-BID Vits A,C,E/Lutein/Minerals [Ocuvite with Lutein Tablet] 1 tab PO W/SUPPER ALPRAZolam [Xanax] 0.5 mg PO TID PRN #10 tab PRN Reason: Anxiety Apixaban [Eliquis] 2.5 mg PO BID tablet Ipratropium Nebulized [Atrovent Nebulized] 0.5 mg INHALATION RT-QID nebu Levalbuterol Nebulized (Conc) [Xopenex Nebulized (Conc)] 1.25 mg INHALATION RT-QID nebule Metoprolol Tartrate [Lopressor] 50 mg PO BID #1 tab Cholecalciferol [Vitamin D3] 1,000 unit PO W/SUPPER Hydrocodone/Acetaminophen [[place] 10-325 Tablet] 1 tab PO TID PRN PRN Reason: Pain Melatonin 10 mg PO HS Ferrous Sulfate [Feosol] 325 mg PO W/SUPPER Aspirin EC [Ecotrin Low Dose] 81 mg PO W/SUPPER Furosemide [Lasix] 40 mg PO DAILY #0 tab Gabapentin [Neurontin] 200 mg PO TID Discontinued Atorvastatin Calcium [Lipitor] 80 mg PO HS Discharge Medication List Cyclobenzaprine [Flexeril] 10 mg PO HS PRN 09/23/16 [History] Fluticasone/Salmeterol [Advair 100-50 Diskus] 1 puff INHALATION RT-BID 09/23/16 [History] Multivitamins, Thera [Multivitamin (formulary)] 1 tab PO W/SUPPER 09/23/16 [ History] Pantoprazole Sodium [Protonix] 40 mg PO QAM 09/23/16 [History] Vits A,C,E/Lutein/Minerals [Ocuvite with Lutein Tablet] 1 tab PO W/SUPPER [History] l-Mefol/A-Cyst/Meb12/Algal Oil [Cerefolin Nac Caplet] 1 tab PO W/SUPPER [History] ALPRAZolam [Xanax] 0.5 mg PO TID PRN #10 tab 10/02/16 [Rx] Apixaban [Eliquis] 2.5 mg PO BID tablet 10/02/16 [Rx] Ipratropium Nebulized [Atrovent Nebulized] 0.5 mg INHALATION RT-QID nebu [Rx] Levalbuterol Nebulized (Conc) [Xopenex Nebulized (Conc)] 1.25 mg INHALATION RT- QID nebule 10/02/16 [Rx] Metoprolol Tartrate [Lopressor] 50 mg PO BID #1 tab 10/02/16 [Rx] Aspirin EC [Ecotrin Low Dose] 81 mg PO W/SUPPER 11/05/16 [History] Cholecalciferol [Vitamin D3] 1,000 unit PO W/SUPPER 11/05/16 [History] Ferrous Sulfate [Feosol] 325 mg PO W/SUPPER 11/05/16 [History] Hydrocodone/Acetaminophen [[place] 10-325 Tablet] 1 tab PO TID PRN 11/05/16 [ History] Melatonin 10 mg PO HS 11/05/16 [History] Furosemide [Lasix] 40 mg PO DAILY #0 tab 11/06/16 [Rx] Gabapentin [Neurontin] 200 mg PO TID 11/19/16 [History] Follow up Appointment(s)/Referral(s): Lazaro Lance MD [STAFF PHYSICIAN] - 11/28/16 4:00 pm
[2016-11-21 12:02] VITALS: BP 121/60
[2016-11-21 12:08] VITALS: PULSE 72; RESP 16
== END 2016-11-21 14:45 | disposition home or self-care (01) ==
LOC: 3OBS 17:06 → EDSTATUS 11-20 07:30
PROVIDERS: ADMIT Internal Medicine Interventional Cardiology; ATTEND Internal Medicine Interventional Cardiology
DX: I25.110 Atherosclerotic heart disease of native coronary artery with unstable angina pectoris (principal); T82.855A Stenosis of coronary artery stent, initial encounter; I10 Essential (primary) hypertension; E78.00 Pure hypercholesterolemia, unspecified; E78.5 Hyperlipidemia, unspecified; E11.9 Type 2 diabetes mellitus without complications; I42.9 Cardiomyopathy, unspecified; I48.92 Unspecified atrial flutter; Z79.899 Other long term (current) drug therapy; Z79.82 Long term (current) use of aspirin; Z79.01 Long term (current) use of anticoagulants; Z87.891 Personal history of nicotine dependence; I73.9 Peripheral vascular disease, unspecified; Z85.118 Personal history of other malignant neoplasm of bronchus and lung; I48.0 Paroxysmal atrial fibrillation
CPT/HCPCS: 99152; 96360; 96361 ×2; 94640 ×6; 94760; 93458; 80048; 85025; 85610; G0378 ×3; G0379; C1769 ×3; C1894; J2001; J2250; Q9967

== ENCOUNTER 2016-11-22 07:57 | Inpatient (IN) | payer MEDICARE, OTHER ==
[2016-11-22] MEDS ORDERED: methylPREDNISolone SOD SUCCI 125 MG/2 ML VIAL IV STA (08:18)
--- NOTE | 2016-11-22 08:22 | ED ---
General Adult HPI - General Chief complaint: Shortness of Breath Stated complaint: STEPHANIE Time Seen by Provider: 11/22/16 07:57 Source: patient, EMS, RN notes reviewed Mode of arrival: EMS Limitations: no limitations - History of Present Illness Initial comments: This is a 76-year-old female with a past medical history significant for cardiac stents as well as severe COPD. Patient states she had a cardiac cath yesterday and they told her that the cardiac cath was clean. Patient states she went home and started having some difficulty breathing last night and woke up this morning with severe difficulty breathing. Patient states she took multiple treatments but it did not help her. She called EMS when EMS got there they gave her some treatments as well as put her on BiPAP and she was doing much better when she arrived to the hospital. Patient denies any chest pain or pressure. Patient denies any recent fever chills or cough. Patient states she' s had no palpitation. Patient denies any lightheadedness dizziness or near syncopal episode. Patient denies any abdominal pain. Patient denies nausea vomiting diarrhea - Related Data Home Medications Medication Instructions Recorded Confirmed Cyclobenzaprine [Flexeril] 10 mg PO HS PRN 09/23/16 11/19/16 Fluticasone/Salmeterol [Advair 1 puff INHALATION RT-BID 09/23/16 11/19/16 100-50 Diskus] Multivitamins, Thera [Multivitamin 1 tab PO W/SUPPER 09/23/16 11/19/16 (formulary)] Pantoprazole Sodium [Protonix] 40 mg PO QAM 09/23/16 11/19/16 Vits A,C,E/Lutein/Minerals 1 tab PO W/SUPPER 09/23/16 11/19/16 [Ocuvite with Lutein Tablet] l-Mefol/A-Cyst/Meb12/Algal Oil 1 tab PO W/SUPPER 09/23/16 11/19/16 [Cerefolin Nac Caplet] Aspirin EC [Ecotrin Low Dose] 81 mg PO W/SUPPER 11/05/16 11/19/16 Cholecalciferol [Vitamin D3] 1,000 unit PO W/SUPPER 11/05/16 11/19/16 Ferrous Sulfate [Feosol] 325 mg PO W/SUPPER 11/05/16 11/19/16 Hydrocodone/Acetaminophen [[place] 1 tab PO TID PRN 11/05/16 11/19/16 10-325 Tablet] Melatonin 10 mg PO HS 11/05/16 11/19/16 Gabapentin [Neurontin] 200 mg PO TID 11/19/16 11/19/16 Previous Rx's Medication Instructions Recorded ALPRAZolam [Xanax] 0.5 mg PO TID PRN #10 tab 10/02/16 Apixaban [Eliquis] 2.5 mg PO BID tablet 10/02/16 Ipratropium Nebulized [Atrovent 0.5 mg INHALATION RT-QID nebu 10/02/16 Nebulized] Levalbuterol Nebulized (Conc) 1.25 mg INHALATION RT-QID nebule 10/02/16 [Xopenex Nebulized (Conc)] Metoprolol Tartrate [Lopressor] 50 mg PO BID #1 tab 10/02/16 Furosemide [Lasix] 40 mg PO DAILY #0 tab 11/06/16 Allergies Allergy/AdvReac Type Severity Reaction Status Date / Time No Known Allergies Allergy Verified 11/22/16 08:07 Review of Systems ROS Statement: Those systems with pertinent positive or pertinent negative responses have been documented in the HPI. ROS Other: All systems not noted in ROS Statement are negative. Past Medical History Past Medical History: Atrial Fibrillation, Cancer, Heart Failure, COPD, CVA/TIA , Deep Vein Thrombosis (DVT), Fibromyalgia, GERD/Reflux, Hyperlipidemia, Hypertension, Osteoarthritis (OA), Pneumonia, Sleep Apnea/CPAP/BIPAP, Vascular Disorder Additional Past Medical History / Comment(s): back pain , lung cancer-radiation opnly, HOME 02 2 LITERS N/C, BLOOD CLOT AFTER SX, CVA LT SIDE AFFECTED SINCE RESOLVED, HIATAL HERNIA. SHINGLES 30 YEARS AGO, DOES'NT USE CPAP MACHINE.in past for short period of time took oral meds for dm-then taken off meds-pt stated not considered diabetic now but occ will check bs., macular degeneration.past broken rt leg and lt wrist. Raynauds. Pt currently has 3 fractured ribs that she has "had for years and will not heal". History of Any Multi-Drug Resistant Organisms: MRSA Date of last positivie culture/infection: 09/25/16 MDRO Source:: BRONCH WASH Past Surgical History: Cholecystectomy, Heart Catheterization With Stent, Orthopedic Surgery Additional Past Surgical History / Comment(s): rt leg repaired after break-has pins, lt wrist-plate and screws.lung bx, stents tung groins Past Anesthesia/Blood Transfusion Reactions: Family History of Problems w/ Anesthesia Additional Past Anesthesia/Blood Transfusion Reaction / Comment(s): daughter has diff waking after aa Date of Last Stent Placement:: unk Past Psychological History: Depression Smoking Status: Former smoker Past Alcohol Use History: None Reported Past Drug Use History: None Reported - Past Family History Father Family Medical History: Congestive Heart Failure (CHF), COPD Additional Family Medical History / Comment(s): emphysema Mother Family Medical History: Cancer General Exam - General Exam Comments Initial Comments: GENERAL: Patient is well-developed and well-nourished. Patient is nontoxic and well- hydrated and is in mild distress. ENT: Neck is soft and supple. No significant lymphadenopathy is noted. Oropharynx is clear. Moist mucous membranes. Neck has full range of motion without eliciting any pain. EYES: The sclera were anicteric and conjunctiva were pink and moist. Extraocular movements were intact and pupils were equal round and reactive to light. Eyelids were unremarkable. PULMONARY: Patient has decreased breath sounds throughout. However patient states she feels almost back to her baseline CARDIOVASCULAR: There is a regular rate and rhythm without any murmurs gallops or rubs. ABDOMEN: Soft and nontender with normal bowel sounds. No palpable organomegaly was noted. There is no palpable pulsatile mass. SKIN: Skin is clear with no lesions or rashes and otherwise unremarkable. NEUROLOGIC: Patient is alert and oriented x3. Cranial nerves II through XII are grossly intact. Motor and sensory are also intact. Normal speech, volume and content. Symmetrical smile. MUSCULOSKELETAL: Normal extremities with adequate strength and full range of motion. No lower extremity swelling or edema. No calf tenderness. LYMPHATICS: No significant lymphadenopathy is noted PSYCHIATRIC: Normal psychiatric evaluation. Normal interpersonal interactions appears functionally intact in deals appropriately with others. No signs of depression. No signs of anxiety. Limitations: no limitations Course Vital Signs 11/22/16 11/22/16 08:03 08:46 Temperature 98.1 F Pulse Rate 72 68 Respiratory 20 20 Rate Blood Pressure 150/67 114/56 O2 Sat by Pulse 99 97 Oximetry Medical Decision Making - Medical Decision Making Patient's EKG shows normal sinus rhythm at 69 bpm IA interval is 176 QRS is 82 QT interval 442 QTC is 473. Patient's EKG shows no ST segment elevation or depression or T wave abnormalities are noted Patient's chest x-ray shows a left pleural effusion and a possible right perihilar infiltrate this in association with the patient symptoms I started her on antibiotics. I spoke with Dr. Martinez and he agreed to admit the patient and I wrote admitting orders and consult to Dr. Guillaume - Lab Data Result diagrams: 11/22/16 08:20 11/22/16 08:20 Lab Results 11/22/16 11/22/16 11/22/16 Range/Units 08:20 08:20 08:20 WBC 13.6 H (3.8-10.6) k/uL RBC 3.21 L (3.80-5.40) m/uL Hgb 9.5 L (11.4-16.0) gm/dL Hct 29.2 L (34.0-46.0) % MCV 90.9 (80.0-100.0) fL MCH 29.6 (25.0-35.0) pg MCHC 32.6 (31.0-37.0) g/dL RDW 15.2 (11.5-15.5) % Plt Count 168 (150-450) k/uL Neutrophils % 78 % Lymphocytes % 13 % Monocytes % 5 % Eosinophils % 3 % Basophils % 0 % Neutrophils # 10.6 H (1.3-7.7) k/uL Lymphocytes # 1.8 (1.0-4.8) k/uL Monocytes # 0.7 (0-1.0) k/uL Eosinophils # 0.3 (0-0.7) k/uL Basophils # 0.1 (0-0.2) k/uL PT 11.4 (9.0-12.0) sec INR 1.1 (<1.1) APTT 25.2 (22.0-30.0) sec Sodium 139 (137-145) mmol/L Potassium 3.9 (3.5-5.1) mmol/L Chloride 101 (98-107) mmol/L Carbon Dioxide 30 (22-30) mmol/L Anion Gap 8 mmol/L BUN 14 (7-17) mg/dL Creatinine 0.70 (0.52-1.04) mg/dL Est GFR (MDRD) Af Amer >60 (>60 ml/min/1.73 sqM) Est GFR (MDRD) Non-Af >60 (>60 ml/min/1.73 sqM) Glucose 140 H (74-99) mg/dL Calcium 9.1 (8.4-10.2) mg/dL Magnesium 1.6 (1.6-2.3) mg/dL Total Bilirubin 0.6 (0.2-1.3) mg/dL AST 36 (14-36) U/L ALT 43 (9-52) U/L Alkaline Phosphatase 61 (38-126) U/L Total Protein 5.8 L (6.3-8.2) g/dL Albumin 3.3 L (3.5-5.0) g/dL Disposition Clinical Impression: Acute exacerbation of chronic obstructive airways disease, Pneumonia Disposition: ADMITTED IP TO THIS HOSP Referrals: Reese Allen DO [Primary Care Provider] - 1-2 days Time of Disposition: 09:14
[2016-11-22 08:43] LABS: Basophils # (A) 0.1 k/uL (0-0.2); Basophils % (A) 0 %; CH 30.3; CHCM 33.5; Eosinophils # (A) 0.3 k/uL (0-0.7); Eosinophils % (A) 3 %; HCT 29.2 % (34.0-46.0); HDW 2.84; HGB 9.5 gm/dL (11.4-16.0); Luc # (Auto) 0.19; Luc % (Auto) 1; Lymphocytes # (A) 1.8 k/uL (1.0-4.8); Lymphocytes % (A) 13 %; MCH 29.6 pg (25.0-35.0); MCHC 32.6 g/dL (31.0-37.0); MCV 90.9 fL (80.0-100.0); Mean Platelet Volume 7.7; Monocytes # (A) 0.7 k/uL (0-1.0); Monocytes % (A) 5 %; Neutrophils # (A) 10.6 k/uL (1.3-7.7); Neutrophils % (A) 78 %; RBC 3.21 m/uL (3.80-5.40); RDW 15.2 % (11.5-15.5); WBC 13.6 k/uL (3.8-10.6); WBC (Perox) 13.71
--- NOTE | 2016-11-22 08:49 | XR ---
EXAMINATION TYPE: XR chest 2V DATE OF EXAM: 11/22/2016 COMPARISON: 11/05/2016 INDICATION: Difficulty breathing TECHNIQUE: Frontal and lateral views of the chest are obtained. FINDINGS: The heart size is normal. The pulmonary vasculature is normal. Some mild perihilar infiltrate may be present. Small left pleural effusion is present. Right main pul monary artery is slightly prominent but stable from prior. IMPRESSION: 1. Small left pleural effusion. 2. A mild right perihilar infiltrate may be present. Follow-up can be performed as clinically indicat ed. 3. Clinical consideration for mild pulmonary hypertension
[2016-11-22 08:58] LABS: INR 1.1 (<1.1); Partial Thromboplastin Time 25.2 sec (22.0-30.0); Prothrombin Time 11.4 sec (9.0-12.0)
[2016-11-22 09:04] LABS: ALT 43 U/L (9-52); AST 36 U/L (14-36); Alkaline Phosphatase 61 U/L (38-126); Anion Gap 8 mmol/L; Blood Urea Nitrogen 14 mg/dL (7-17); Calcium 9.1 mg/dL (8.4-10.2); Carbon Dioxide 30 mmol/L (22-30); Chloride 101 mmol/L (98-107); Glucose 140 mg/dL (74-99); Magnesium 1.6 mg/dL (1.6-2.3); Non-African American GFR(MDRD) >60 (>60 ml/min/1.73 sqM); Potassium 3.9 mmol/L (3.5-5.1); Sodium 139 mmol/L (137-145); Total Bilirubin 0.6 mg/dL (0.2-1.3); Total Protein 5.8 g/dL (6.3-8.2)
[2016-11-22] MEDS ORDERED: LEVOFLOXACIN 750MG-D5W PMX 750 MG in DEXTROSE/WATER 1 150ML.BAG IVPB STA (09:12)
[2016-11-22 09:16] LABS: Creatine Kinase 38 U/L (30-135)
[2016-11-22 09:29] LABS: Creatine Kinase MB 0.9 ng/mL (0.0-2.4); Troponin I <0.012 ng/mL (0.000-0.034)
[2016-11-22 11:05] VITALS: BMI 19.5
[2016-11-22] MEDS ORDERED: CYCLOBENZAPRINE 10 MG TAB PO PRN (11:14)
[2016-11-22] MEDS ORDERED: HYDROcodone/APAP 10-325MG 1 EACH TAB PO PRN (11:14)
[2016-11-22] MEDS: IPRATROPIUM-ALBUTEROL 3 ML NEB INHALATION SCH ×3 (11:33→19:47)
[2016-11-22 12:23] LABS: Glucose,Whole Blood 217 mg/dL (75-99)
[2016-11-22] MEDS: INSULIN LISPRO (humaLOG) 300 UNIT/3 ML VIAL SQ SCH ×3 (12:47→20:53)
[2016-11-22] MEDS: methylPREDNISolone SOD SUCCI 125 MG/2 ML VIAL IV SCH ×3 (12:48→23:51)
[2016-11-22 14:32] LABS: Hemoglobin A1C 6.4 % (4.2-6.1)
--- NOTE | 2016-11-22 15:47 | P.HPIM ---
History of Present Illness Given with complaints of severe shortness of breath today morning to the hospital and patient was initially on BiPAP with significant improvement patient does have history of COPD last smoked in May this year. Patient uses 2 L of onset at home and patient required BiPAP on admission and patient barely has any air entry into bilateral lung eason and examined. Patient does not have any pneumonia on chest x-ray. Patient was discharged from Hospital today after cardiac cath which did not show any significant coronary vascular disease, patient denied any fever or chills, denied any chest pain and nausea vomiting. Review of Systems REVIEW OF SYSTEMS: CONSTITUTIONAL: No fever, no malaise, no fatigue. HEENT: No recent visual problems or hearing problems. Denied any sore throat. CARDIOVASCULAR: No chest pain, orthopnea, PND, no palpitations, no syncope. PULMONARY: As mentioned in HPI and patient denied any significant cough with sputum production. GASTROINTESTINAL: No diarrhea, no nausea, no vomiting, no abdominal pain. Normoactive bowel sounds. NEUROLOGICAL: No headaches, no weakness, no numbness. HEMATOLOGICAL: Denies any bleeding or petechiae. GENITOURINARY: Denies any burning micturition, frequency, or urgency. MUSCULOSKELETAL/RHEUMATOLOGICAL: Denies any joint pain, swelling, or any muscle pain. ENDOCRINE: Denies any polyuria or polydipsia. The rest of the 14-point review of systems is negative. Past Medical History Past Medical History: Atrial Fibrillation, Cancer, Heart Failure, COPD, CVA/TIA , Deep Vein Thrombosis (DVT), Fibromyalgia, GERD/Reflux, Hyperlipidemia, Hypertension, Osteoarthritis (OA), Pneumonia, Sleep Apnea/CPAP/BIPAP, Vascular Disorder Additional Past Medical History / Comment(s): back pain , lung cancer-radiation opnly, HOME 02 2 LITERS N/C, BLOOD CLOT AFTER SX, CVA LT SIDE AFFECTED SINCE RESOLVED, HIATAL HERNIA. SHINGLES 30 YEARS AGO, DOES'NT USE CPAP MACHINE.in past for short period of time took oral meds for dm-then taken off meds-pt stated not considered diabetic now but occ will check bs., macular degeneration.past broken rt leg and lt wrist. Raynauds. Pt currently has 3 fractured ribs on the right that she has "had for years and will not heal". History of Any Multi-Drug Resistant Organisms: MRSA Date of last positivie culture/infection: 09/25/16 MDRO Source:: BRONCH WASH Past Surgical History: Cholecystectomy, Heart Catheterization With Stent, Orthopedic Surgery Additional Past Surgical History / Comment(s): rt leg repaired after break-has pins, lt wrist-plate and screws. lung bx, stents tung groins. Past Anesthesia/Blood Transfusion Reactions: Family History of Problems w/ Anesthesia Additional Past Anesthesia/Blood Transfusion Reaction / Comment(s): daughter has diff waking after aa Date of Last Stent Placement:: unk Past Psychological History: Depression Additional Psychological History / Comment(s): pt lives between [place] and [place]. does'nt drive-either daughters or sister takes her places. has home 02, nebulizer. . Ongoing tobacco smoker stopping just may 2016. Has a history of lung cancer with radiation. Smoking Status: Former smoker Past Alcohol Use History: None Reported Past Drug Use History: None Reported - Past Family History Father Family Medical History: Congestive Heart Failure (CHF), COPD Additional Family Medical History / Comment(s): emphysema Mother Family Medical History: Cancer Medications and Allergies Home Medications Medication Instructions Recorded Confirmed Type Cyclobenzaprine [Flexeril] 10 mg PO HS PRN 09/23/16 11/22/16 History Fluticasone/Salmeterol [Advair 1 puff INHALATION RT-BID 09/23/16 11/22/16 History 100-50 Diskus] Pantoprazole Sodium [Protonix] 40 mg PO QAM 09/23/16 11/22/16 History Vits A,C,E/Lutein/Minerals 1 tab PO W/SUPPER 09/23/16 11/22/16 History [Ocuvite with Lutein Tablet] Aspirin EC [Ecotrin Low Dose] 81 mg PO W/SUPPER 11/05/16 11/22/16 History Cholecalciferol [Vitamin D3] 1,000 unit PO W/SUPPER 11/05/16 11/22/16 History Hydrocodone/Acetaminophen [[place] 1 tab PO TID PRN 11/05/16 11/22/16 History 10-325 Tablet] Melatonin 10 mg PO HS 11/05/16 11/22/16 History Gabapentin [Neurontin] 100 - 300 mg PO Q8H PRN 11/19/16 11/22/16 History Albuterol Sulfate [Proventil Hfa] 1 - 2 puff INHALATION RT-Q6H PRN 11/22/1606/10 History Atorvastatin [Lipitor] 80 mg PO DAILY 11/22/16 11/22/16 History Ferrous Sulfate [Feosol] 325 mg PO DAILY 11/22/16 11/22/16 History Furosemide [Lasix] 40 mg PO DAILY 11/22/16 11/22/16 History Lisinopril [Zestril] 2.5 mg PO DAILY 11/22/16 11/22/16 History Magnesium Hydroxide [Milk of 400 mg PO DAILY PRN 11/22/16 11/22/16 History Magnesia] Metoprolol Tartrate [Lopressor] 50 mg PO BID 11/22/16 11/22/16 History Ranitidine HCl [Zantac] 150 mg PO DAILY PRN 11/22/16 11/22/16 History Sennosides [Senokot] 8.6 mg PO DAILY PRN 11/22/16 11/22/16 History Vitamin B Complex 1 cap PO DAILY 11/22/16 11/22/16 History Allergies Allergy/AdvReac Type Severity Reaction Status Date / Time No Known Allergies Allergy Verified 11/22/16 12:01 Physical Exam Vitals: Vital Signs Temp Pulse Pulse Resp BP BP Pulse Ox 11/22/16 15:00 97.3 F L 69 19 112/53 97 11/22/16 11:47 80 11/22/16 11:34 80 11/22/16 10:14 98.9 F 73 20 133/66 95 11/22/16 09:35 98.2 F 65 18 120/55 97 11/22/16 08:46 68 20 114/56 97 11/22/16 08:03 98.1 F 72 20 150/67 99 Intake and Output 11/22/16 11/22/16 11/22/16 06:59 14:59 22:59 Other: # Voids 2 Weight 51.71 kg Patient Weight 11/23/16 06:59 Weight 51.71 kg PHYSICAL EXAMINATION: GENERAL: The patient is alert and oriented x3, not in any acute distress. Well developed, well nourished. HEENT: Pupils are round and equally reacting to light. EOMI. No scleral icterus. No conjunctival pallor. Normocephalic, atraumatic. No pharyngeal erythema. No thyromegaly. CARDIOVASCULAR: S1 and S2 present. No murmurs, rubs, or gallops. PULMONARY: Air entry into bilateral lung eason is significantly limited, no wheezing was appreciated patient is not using any extra muscle breathing no crackles were appreciated. ABDOMEN: Soft, nontender, nondistended, normoactive bowel sounds. No palpable organomegaly. MUSCULOSKELETAL: No joint swelling or deformity. EXTREMITIES: No cyanosis, clubbing, or pedal edema. NEUROLOGICAL: Gross neurological examination did not reveal any focal deficits. SKIN: No rashes. Results CBC & Chem 7: 11/22/16 08:20 11/22/16 08:20 Labs: Abnormal Lab Results - Last 24 Hours (Table) 11/22/16 11/22/16 11/22/16 Range/Units 08:20 08:20 12:20 WBC 13.6 H (3.8-10.6) k/uL RBC 3.21 L (3.80-5.40) m/uL Hgb 9.5 L (11.4-16.0) gm/dL Hct 29.2 L (34.0-46.0) % Neutrophils # 10.6 H (1.3-7.7) k/uL Glucose 140 H (74-99) mg/dL POC Glucose (mg/dL) 217 H (75-99) mg/dL Total Protein 5.8 L (6.3-8.2) g/dL Albumin 3.3 L (3.5-5.0) g/dL Thrombosis Risk Factor Assmnt - Choose All That Apply Each Factor Represents 1 point: Abnormal pulmonary function (COPD) Each Risk Factor Represents 3 Points: Age 75 years or older, Family history of DVT/PE Thrombosis Risk Factor Assessment Total Risk Factor Score: 7 Thrombosis Risk Factor Assessment Level: High Risk Assessment and Plan Plan: Acute on chronic hypercapnic respiratory failure: Secondary to COPD exacerbation. Patient was started on some steroids and inhalation treatments. Patient's antibiotics will be changed to doxycycline as there is no pneumonia on the chest x-ray. Congestive heart failure chronic systolic dysfunction and ejection fraction of around 45% without any acute exacerbation. Patient is already on Lasix, lisinopril. Lung cancer in remission History of atrial fibrillation: Rate controlled at this time Coronary artery disease continue with home medications. Hyperlipidemia Peripheral vascular disease Gastroesophageal reflux disease Essential hypertension Sleep apnea For above-mentioned chronic medical problems,continue her home medications.
[2016-11-22] MEDS ORDERED: ALPRAZolam 0.5 MG TAB PO PRN (15:49)
[2016-11-22] MEDS ORDERED: MAGNESIUM HYDROXIDE 400 MG PO PRN (15:49)
[2016-11-22] MEDS: FUROSEMIDE 40 MG TAB PO SCH (16:49)
[2016-11-22 17:16] LABS: Glucose,Whole Blood 232 mg/dL (75-99)
[2016-11-22] MEDS ORDERED: VIT A,C & E-LUTEIN-MINERALS 1 EACH TAB PO SCH (17:30)
[2016-11-22] MEDS ORDERED: ASPIRIN 81 MG CHEW PO SCH (17:30)
[2016-11-22] MEDS: SYMBICORT 80-4.5 MCG INHALER INHALATION SCH (19:47)
[2016-11-22 20:38] LABS: Glucose,Whole Blood 189 mg/dL (75-99)
[2016-11-22] MEDS: DOXYCYCLINE 50 MG CAP PO SCH (20:52)
[2016-11-22] MEDS: APIXABAN 2.5 MG TABLET PO SCH (20:52)
[2016-11-22] MEDS: METOPROLOL TARTRATE 50 MG TAB PO SCH (20:53)
[2016-11-22] MEDS ORDERED: MELATONIN 5 MG TABLET PO SCH (21:00)
[2016-11-22] MEDS: SENNOSIDES 8.6 MG TAB PO PRN (22:12)
[2016-11-22] MEDS: GABAPENTIN 100 MG CAP PO PRN (22:12)
[2016-11-23 05:41] LABS: Glucose,Whole Blood 210 mg/dL (75-99)
[2016-11-23] MEDS: methylPREDNISolone SOD SUCCI 125 MG/2 ML VIAL IV SCH ×2 (05:48→12:27)
[2016-11-23 07:28] LABS: Glucose,Whole Blood 211 mg/dL (75-99)
[2016-11-23 07:32] VITALS: BP 136/70; TEMP 97.8
[2016-11-23] MEDS: SYMBICORT 80-4.5 MCG INHALER INHALATION SCH (07:55)
[2016-11-23] MEDS: IPRATROPIUM-ALBUTEROL 3 ML NEB INHALATION SCH ×2 (07:55→11:57)
[2016-11-23 08:00] VITALS: RESP 20
[2016-11-23] MEDS: INSULIN LISPRO (humaLOG) 300 UNIT/3 ML VIAL SQ SCH ×2 (08:03→12:27)
[2016-11-23] MEDS: DOXYCYCLINE 50 MG CAP PO SCH (08:04)
[2016-11-23] MEDS: FUROSEMIDE 40 MG TAB PO SCH (08:05)
[2016-11-23] MEDS: METOPROLOL TARTRATE 50 MG TAB PO SCH (08:05)
[2016-11-23] MEDS: APIXABAN 2.5 MG TABLET PO SCH (08:05)
[2016-11-23 08:25] LABS: Anion Gap 11 mmol/L; Blood Urea Nitrogen 19 mg/dL (7-17); CH 29.9; Calcium 9.4 mg/dL (8.4-10.2); Carbon Dioxide 29 mmol/L (22-30); Chloride 98 mmol/L (98-107); Glucose 184 mg/dL (74-99); HCT 27.5 % (34.0-46.0); HDW 2.78; HGB 9.6 gm/dL (11.4-16.0); MCH 31.9 pg (25.0-35.0); Mean Platelet Volume 7.7; Non-African American GFR(MDRD) >60 (>60 ml/min/1.73 sqM); RBC 3.02 m/uL (3.80-5.40); RDW 14.9 % (11.5-15.5); Sodium 138 mmol/L (137-145); WBC 15.8 k/uL (3.8-10.6)
[2016-11-23] MEDS ORDERED: PANTOPRAZOLE 40 MG TABLET PO SCH (09:00)
[2016-11-23] MEDS ORDERED: CYANOCOBALAMIN-FA-PYRIDOXINE 1 EACH TAB PO SCH (09:00)
[2016-11-23] MEDS ORDERED: FERROUS SULFATE 325 MG TAB PO SCH (09:00)
[2016-11-23] MEDS ORDERED: LISINOPRIL 2.5 MG TAB PO SCH (09:00)
[2016-11-23] MEDS ORDERED: ATORVASTATIN 80 MG TAB PO SCH (09:00)
[2016-11-23] MEDS: SENNOSIDES 8.6 MG TAB PO PRN (09:29)
[2016-11-23] MEDS: GABAPENTIN 100 MG CAP PO PRN (09:29)
[2016-11-23] MEDS ORDERED: LEVOFLOXACIN 750MG-D5W PMX 750 MG in DEXTROSE/WATER 1 150ML.BAG IVPB SCH (10:00)
[2016-11-23 11:59] LABS: Glucose,Whole Blood 133 mg/dL (75-99)
[2016-11-23 12:00] VITALS: PULSE 80
--- NOTE | 2016-11-23 12:36 | XR ---
EXAMINATION TYPE: XR chest 1V DATE OF EXAM: 11/23/2016 HISTORY: Shortness of breath. COMPARISON: 11/22/2016 TECHNIQUE: Single view of the chest is submitted. FINDINGS: Demonstrated are scattered senescent parenchymal change. There is no evidence for focal infiltrate. The heart is stable. Hilar and mediastinal structures are within normal limits. Degenerative changes are seen of the dorsal spine. IMPRESSION: 1. Chronic changes without evidence for acute pulmonary disease.
--- NOTE | 2016-11-23 14:17 | P.DS ---
Providers Date of admission: 11/22/16 09:15 Attending physician: Karen Martinez Consults: 11/22/16 09:15 Consult Physician Routine Consulting Provider: Rah Guillaume Consult Reason/Comments: COPD exacerbation, pneumonia Do you want consulting provider notified?: Yes Primary care physician: [facility] Course: Given with complaints of severe shortness of breath today morning to the hospital and patient was initially on BiPAP with significant improvement patient does have history of COPD last smoked in May this year. Patient uses 2 L of onset at home and patient required BiPAP on admission and patient barely has any air entry into bilateral lung eason and examined. Patient does not have any pneumonia on chest x-ray. Patient is saturating well today I repeated the chest x-ray because there are some crackles in the left lower lung eason which did not show any pulmonary edema and patient. Will be discharged today in stable medical condition to home to follow with her primary care physician and insurance claims representative as an outpatient. PHYSICAL EXAMINATION: GENERAL: The patient is alert and oriented x3, not in any acute distress. Well developed, well nourished. HEENT: Pupils are round and equally reacting to light. EOMI. No scleral icterus. No conjunctival pallor. Normocephalic, atraumatic. No pharyngeal erythema. No thyromegaly. CARDIOVASCULAR: S1 and S2 present. No murmurs, rubs, or gallops. PULMONARY: Significantly improved air entry bilateral lung eason, no wheezing was appreciated patient is not using any extra muscle breathing no crackles were appreciated. Minimal crackles in the left lower lung bases ABDOMEN: Soft, nontender, nondistended, normoactive bowel sounds. No palpable organomegaly. MUSCULOSKELETAL: No joint swelling or deformity. EXTREMITIES: No cyanosis, clubbing, or pedal edema. NEUROLOGICAL: Gross neurological examination did not reveal any focal deficits. SKIN: No rashes. Acute on chronic hypercapnic respiratory failure: Secondary to COPD exacerbation. Patient was started on some steroids and inhalation treatments. Patient's antibiotics will be discharged on weaning dose of steroids and doxycycline as there is no pneumonia on the chest x-ray. Congestive heart failure chronic systolic dysfunction and ejection fraction of around 45% without any acute exacerbation. Patient is already on Lasix, lisinopril. Lung cancer in remission History of atrial fibrillation: Rate controlled at this time Coronary artery disease continue with home medications. Hyperlipidemia Peripheral vascular disease Gastroesophageal reflux disease Essential hypertension Sleep apnea For above-mentioned chronic medical problems,continue her home medications. Plan - Discharge Summary New Discharge Prescriptions: New predniSONE 10 mg PO DAILY #30 tab Doxycycline Monohydrate [Monodox] 100 mg PO Q12HR #8 cap No Action Cyclobenzaprine [Flexeril] 10 mg PO HS PRN PRN Reason: Muscle Spasm Pantoprazole Sodium [Protonix] 40 mg PO QAM Fluticasone/Salmeterol [Advair 100-50 Diskus] 1 puff INHALATION RT-BID Vits A,C,E/Lutein/Minerals [Ocuvite with Lutein Tablet] 1 tab PO W/SUPPER ALPRAZolam [Xanax] 0.5 mg PO TID PRN #10 tab PRN Reason: Anxiety Apixaban [Eliquis] 2.5 mg PO BID tablet Ipratropium Nebulized [Atrovent Nebulized] 0.5 mg INHALATION RT-QID nebu Levalbuterol Nebulized (Conc) [Xopenex Nebulized (Conc)] 1.25 mg INHALATION RT-QID nebule Cholecalciferol [Vitamin D3] 1,000 unit PO W/SUPPER Hydrocodone/Acetaminophen [[place] 10-325 Tablet] 1 tab PO TID PRN PRN Reason: Pain Melatonin 10 mg PO HS Aspirin EC [Ecotrin Low Dose] 81 mg PO W/SUPPER Gabapentin [Neurontin] 100 - 300 mg PO Q8H PRN PRN Reason: NERVE PAIN Atorvastatin [Lipitor] 80 mg PO DAILY Furosemide [Lasix] 40 mg PO DAILY Metoprolol Tartrate [Lopressor] 50 mg PO BID Lisinopril [Zestril] 2.5 mg PO DAILY Sennosides [Senokot] 8.6 mg PO DAILY PRN PRN Reason: Constipation Ferrous Sulfate [Feosol] 325 mg PO DAILY Ranitidine HCl [Zantac] 150 mg PO DAILY PRN PRN Reason: Heartburn Vitamin B Complex 1 cap PO DAILY Albuterol Sulfate [Proventil Hfa] 1 - 2 puff INHALATION RT-Q6H PRN PRN Reason: Shortness Of Breath Magnesium Hydroxide [Milk of Magnesia] 400 mg PO DAILY PRN PRN Reason: Constipation Discharge Medication List Cyclobenzaprine [Flexeril] 10 mg PO HS PRN 09/23/16 [History] Fluticasone/Salmeterol [Advair 100-50 Diskus] 1 puff INHALATION RT-BID 09/23/16 [History] Pantoprazole Sodium [Protonix] 40 mg PO QAM 09/23/16 [History] Vits A,C,E/Lutein/Minerals [Ocuvite with Lutein Tablet] 1 tab PO W/SUPPER [History] ALPRAZolam [Xanax] 0.5 mg PO TID PRN #10 tab 10/02/16 [Rx] Apixaban [Eliquis] 2.5 mg PO BID tablet 10/02/16 [Rx] Ipratropium Nebulized [Atrovent Nebulized] 0.5 mg INHALATION RT-QID nebu [Rx] Levalbuterol Nebulized (Conc) [Xopenex Nebulized (Conc)] 1.25 mg INHALATION RT- QID nebule 10/02/16 [Rx] Aspirin EC [Ecotrin Low Dose] 81 mg PO W/SUPPER 11/05/16 [History] Cholecalciferol [Vitamin D3] 1,000 unit PO W/SUPPER 11/05/16 [History] Hydrocodone/Acetaminophen [[place] 10-325 Tablet] 1 tab PO TID PRN 11/05/16 [ History] Melatonin 10 mg PO HS 11/05/16 [History] Gabapentin [Neurontin] 100 - 300 mg PO Q8H PRN 11/19/16 [History] Albuterol Sulfate [Proventil Hfa] 1 - 2 puff INHALATION RT-Q6H PRN 11/22/16 [ History] Atorvastatin [Lipitor] 80 mg PO DAILY 11/22/16 [History] Ferrous Sulfate [Feosol] 325 mg PO DAILY 11/22/16 [History] Furosemide [Lasix] 40 mg PO DAILY 11/22/16 [History] Lisinopril [Zestril] 2.5 mg PO DAILY 11/22/16 [History] Magnesium Hydroxide [Milk of Magnesia] 400 mg PO DAILY PRN 11/22/16 [History] Metoprolol Tartrate [Lopressor] 50 mg PO BID 11/22/16 [History] Ranitidine HCl [Zantac] 150 mg PO DAILY PRN 11/22/16 [History] Sennosides [Senokot] 8.6 mg PO DAILY PRN 11/22/16 [History] Vitamin B Complex 1 cap PO DAILY 11/22/16 [History] Doxycycline Monohydrate [Monodox] 100 mg PO Q12HR #8 cap 11/23/16 [Rx] predniSONE 10 mg PO DAILY #30 tab 11/23/16 [Rx] Follow up Appointment(s)/Referral(s): Reese Allen DO [Primary Care Provider] - 3 Days Rah Guillaume MD [STAFF PHYSICIAN] - 1 Week Patient Instructions/Handouts: Heart Failure (DC), COPD (Chronic Obstructive Pulmonary Disease) (DC)
== END 2016-11-23 14:20 | disposition home or self-care (01) | DRG 190 ==
LOC: EC 07:57 → 4MS4W 09:15
PROVIDERS: ADMIT Internal Medicine; ATTEND Internal Medicine
DX: J44.0 Chronic obstructive pulmonary disease with (acute) lower respiratory infection (principal); J18.9 Pneumonia, unspecified organism; J96.12 Chronic respiratory failure with hypercapnia; I11.0 Hypertensive heart disease with heart failure; I50.22 Chronic systolic (congestive) heart failure; I48.91 Unspecified atrial fibrillation; J44.1 Chronic obstructive pulmonary disease with (acute) exacerbation; I25.10 Atherosclerotic heart disease of native coronary artery without angina pectoris; E78.5 Hyperlipidemia, unspecified; K21.9 Gastro-esophageal reflux disease without esophagitis; G47.30 Sleep apnea, unspecified; M19.91 Primary osteoarthritis, unspecified site; I73.00 Raynaud's syndrome without gangrene; K44.9 Diaphragmatic hernia without obstruction or gangrene; H35.30 Unspecified macular degeneration; M79.7 Fibromyalgia; F32.9 Major depressive disorder, single episode, unspecified; Z87.891 Personal history of nicotine dependence; Z86.14 Personal history of Methicillin resistant Staphylococcus aureus infection; Z92.3 Personal history of irradiation; Z95.5 Presence of coronary angioplasty implant and graft; Z90.49 Acquired absence of other specified parts of digestive tract; Z86.73 Personal history of transient ischemic attack (TIA), and cerebral infarction without residual deficits; Z85.118 Personal history of other malignant neoplasm of bronchus and lung; Z79.01 Long term (current) use of anticoagulants; Z79.82 Long term (current) use of aspirin; Z79.51 Long term (current) use of inhaled steroids; Z79.899 Other long term (current) drug therapy; Z82.5 Family history of asthma and other chronic lower respiratory diseases
CPT/HCPCS: 36415; 71010; 71020; 80048; 80053; 82550; 82553; 83036; 83605; 83735; 84484; 85025; 85027; 85610; 85730; 87040; 93005; 93458; 94640; 94760; 96360; 96361; 96374; 99285

== ENCOUNTER 2016-12-14 12:57 | Observation (INO) | payer MEDICARE, OTHER ==
[2016-12-14] MEDS ORDERED: ALBUTEROL NEBULIZED 2.5 MG/3 ML INHALATION STA (13:17)
[2016-12-14] MEDS ORDERED: IPRATROPIUM 0.5 MG/2.5 ML NEBU INHALATION STA (13:17)
[2016-12-14] MEDS ORDERED: SODIUM CHLORIDE 0.9% 1,000 ML IV STA (13:17)
--- NOTE | 2016-12-14 13:21 | ED ---
General Adult HPI - General Chief complaint: Shortness of Breath Stated complaint: Difficulty Breathing Time Seen by Provider: 12/14/16 13:16 Source: patient, family, RN notes reviewed, old records reviewed Mode of arrival: wheelchair Limitations: no limitations - History of Present Illness Initial comments: This is a 76-year-old female ER for reevaluation shores of breath. Severe difficulty breathing cough congestion and increasing cough and congestion and dyspnea. Patient is medical history significant for COPD, and multiple episodes of pneumonia. Patient states worsening bleeding since Thursday, progressively worse over the last 2 days taking. She was at home with no help. Denies pain. Just feels weak and fatigued. No travel history. Possible admission within the last year - Related Data Home Medications Medication Instructions Recorded Confirmed Cyclobenzaprine [Flexeril] 10 mg PO HS PRN 09/23/16 12/14/16 Fluticasone/Salmeterol [Advair 1 puff INHALATION RT-BID 09/23/16 12/14/16 100-50 Diskus] Pantoprazole Sodium [Protonix] 40 mg PO QAM 09/23/16 12/14/16 Vits A,C,E/Lutein/Minerals 1 tab PO W/SUPPER 09/23/16 12/14/16 [Ocuvite with Lutein Tablet] Aspirin EC [Ecotrin Low Dose] 81 mg PO HS 11/05/16 12/14/16 Cholecalciferol [Vitamin D3] 1,000 unit PO W/SUPPER 11/05/16 12/14/16 Hydrocodone/Acetaminophen [[place] 1 tab PO TID PRN 11/05/16 12/14/16 10-325 Tablet] Melatonin 10 mg PO HS 11/05/16 12/14/16 Gabapentin [Neurontin] 100 - 300 mg PO TID 11/19/16 12/14/16 Albuterol Sulfate [Proventil Hfa] 1 - 2 puff INHALATION RT-Q6H PRN 11/22/16 Atorvastatin [Lipitor] 80 mg PO DAILY 11/22/16 12/14/16 Furosemide [Lasix] 40 mg PO DAILY 11/22/16 12/14/16 Lisinopril [Zestril] 2.5 mg PO DAILY 11/22/16 12/14/16 Metoprolol Tartrate [Lopressor] 50 mg PO BID 11/22/16 12/14/16 Ranitidine HCl [Zantac] 150 mg PO DAILY PRN 11/22/16 12/14/16 Vitamin B Complex 1 cap PO DAILY 11/22/16 12/14/16 Previous Rx's Medication Instructions Recorded ALPRAZolam [Xanax] 0.5 mg PO TID PRN #10 tab 10/02/16 Apixaban [Eliquis] 2.5 mg PO BID tablet 10/02/16 Ipratropium Nebulized [Atrovent 0.5 mg INHALATION RT-QID nebu 10/02/16 Nebulized] Levalbuterol Nebulized (Conc) 1.25 mg INHALATION RT-QID nebule 10/02/16 [Xopenex Nebulized (Conc)] Allergies Allergy/AdvReac Type Severity Reaction Status Date / Time No Known Allergies Allergy Verified 12/14/16 13:33 Review of Systems ROS Statement: Those systems with pertinent positive or pertinent negative responses have been documented in the HPI. ROS Other: All systems not noted in ROS Statement are negative. Past Medical History Past Medical History: Atrial Fibrillation, Cancer, Heart Failure, COPD, CVA/TIA , Deep Vein Thrombosis (DVT), Fibromyalgia, GERD/Reflux, Hyperlipidemia, Hypertension, Osteoarthritis (OA), Pneumonia, Sleep Apnea/CPAP/BIPAP, Vascular Disorder Additional Past Medical History / Comment(s): back pain , lung cancer-radiation opnly, HOME 02 2 LITERS [place], BLOOD CLOT AFTER SX, CVA LT SIDE AFFECTED SINCE RESOLVED, HIATAL HERNIA. SHINGLES 30 YEARS AGO, DOES'NT USE CPAP MACHINE.in past for short period of time took oral meds for dm-then taken off meds-pt stated not considered diabetic now but occ will check bs., macular degeneration.past broken rt leg and lt wrist. Raynauds. Pt currently has 3 fractured ribs on the right that she has "had for years and will not heal". History of Any Multi-Drug Resistant Organisms: MRSA Date of last positivie culture/infection: 09/25/16 MDRO Source:: BRONCH WASH Past Surgical History: Cholecystectomy, Heart Catheterization With Stent, Orthopedic Surgery Additional Past Surgical History / Comment(s): rt leg repaired after break-has pins, lt wrist-plate and screws. lung bx, stents tung groins. Past Anesthesia/Blood Transfusion Reactions: Family History of Problems w/ Anesthesia Additional Past Anesthesia/Blood Transfusion Reaction / Comment(s): daughter has diff waking after aa Date of Last Stent Placement:: unk Past Psychological History: Depression Smoking Status: Former smoker Past Alcohol Use History: Rare Past Drug Use History: None Reported - Past Family History Father Family Medical History: Congestive Heart Failure (CHF), COPD Additional Family Medical History / Comment(s): emphysema Mother Family Medical History: Cancer General Exam Limitations: no limitations General appearance: alert, in no apparent distress Head exam: Present: atraumatic, normocephalic, normal inspection Eye exam: Present: normal appearance, PERRL, EOMI. Absent: scleral icterus, conjunctival injection, periorbital swelling ENT exam: Present: normal exam, mucous membranes moist Neck exam: Present: normal inspection. Absent: tenderness, meningismus, lymphadenopathy Respiratory exam: Present: normal lung sounds bilaterally, respiratory distress , wheezes, decreased breath sounds, prolonged expiratory. Absent: rales, rhonchi, stridor Cardiovascular Exam: Present: regular rate, normal rhythm, normal heart sounds. Absent: systolic murmur, diastolic murmur, rubs, gallop, clicks GI/Abdominal exam: Present: soft, normal bowel sounds. Absent: distended, tenderness, guarding, rebound, rigid Extremities exam: Present: normal inspection, full ROM, normal capillary refill. Absent: tenderness, pedal edema, joint swelling, calf tenderness Back exam: Present: normal inspection Neurological exam: Present: alert, oriented X3, CN II-XII intact Psychiatric exam: Present: normal affect, normal mood Skin exam: Present: warm, dry, intact, normal color. Absent: rash Course Vital Signs 12/14/16 12/14/16 12/14/16 13:10 14:19 14:21 Temperature 98.5 F Pulse Rate 63 57 L 57 L Respiratory 18 20 Rate Blood Pressure 140/65 118/57 O2 Sat by Pulse 100 100 Oximetry 12/14/16 14:39 Temperature Pulse Rate 65 Respiratory Rate Blood Pressure O2 Sat by Pulse Oximetry - Reevaluation(s) Reevaluation #1: 12/14/16 14:50 Patient does have adequate breathing treatments at this point, good pain control. But still complaining of shortness of breath EKG Findings - EKG Comments: EKG Findings:: EKG shows normal sinus rhythm rate of 61, [place] 18, QRS 78, QTc 442 Medical Decision Making - Medical Decision Making Shaina female year for COPD exacerbation. Patient has no chest pain, no fevers. History of multiple medical admissions for COPD and pneumonia, patient will be put on breathing treatments, steroids, monitoring of hemodynamic and respiratory cardiopulmonary status - Lab Data Result diagrams: 12/14/16 13:45 12/14/16 13:45 Lab Results 12/14/16 12/14/16 12/14/16 Range/Units 13:45 13:45 13:45 WBC 6.5 (3.8-10.6) k/uL RBC 3.66 L (3.80-5.40) m/uL Hgb 11.0 L (11.4-16.0) gm/dL Hct 32.5 L (34.0-46.0) % MCV 89.0 (80.0-100.0) fL MCH 30.2 (25.0-35.0) pg MCHC 33.9 (31.0-37.0) g/dL RDW 15.0 (11.5-15.5) % Plt Count 229 (150-450) k/uL Neutrophils % 72 % Lymphocytes % 17 % Monocytes % 4 % Eosinophils % 4 % Basophils % 1 % Neutrophils # 4.6 (1.3-7.7) k/uL Lymphocytes # 1.1 (1.0-4.8) k/uL Monocytes # 0.3 (0-1.0) k/uL Eosinophils # 0.3 (0-0.7) k/uL Basophils # 0.1 (0-0.2) k/uL PT (9.0-12.0) sec INR (<1.2) APTT (22.0-30.0) sec Sodium 136 L (137-145) mmol/L Potassium 4.2 (3.5-5.1) mmol/L Chloride 94 L (98-107) mmol/L Carbon Dioxide 35 H (22-30) mmol/L Anion Gap 7 mmol/L BUN 13 (7-17) mg/dL Creatinine 0.71 (0.52-1.04) mg/dL Est GFR (MDRD) Af Amer >60 (>60 ml/min/1.73 sqM) Est GFR (MDRD) Non-Af >60 (>60 ml/min/1.73 sqM) Glucose 123 H (74-99) mg/dL Calcium 9.2 (8.4-10.2) mg/dL Magnesium 1.5 L (1.6-2.3) mg/dL Total Bilirubin 0.5 (0.2-1.3) mg/dL AST 31 (14-36) U/L ALT 47 (9-52) U/L Alkaline Phosphatase 67 (38-126) U/L Total Creatine Kinase 32 (30-135) U/L CK-MB (CK-2) 0.8 (0.0-2.4) ng/mL CK-MB (CK-2) Rel Index 2.5 Troponin I <0.012 (0.000-0.034) ng/mL NT-Pro-B Natriuret Pep pg/mL Total Protein 6.1 L (6.3-8.2) g/dL Albumin 3.5 (3.5-5.0) g/dL 12/14/16 12/14/16 Range/Units 13:45 13:45 WBC (3.8-10.6) k/uL RBC (3.80-5.40) m/uL Hgb (11.4-16.0) gm/dL Hct (34.0-46.0) % MCV (80.0-100.0) fL MCH (25.0-35.0) pg MCHC (31.0-37.0) g/dL RDW (11.5-15.5) % Plt Count (150-450) k/uL Neutrophils % % Lymphocytes % % Monocytes % % Eosinophils % % Basophils % % Neutrophils # (1.3-7.7) k/uL Lymphocytes # (1.0-4.8) k/uL Monocytes # (0-1.0) k/uL Eosinophils # (0-0.7) k/uL Basophils # (0-0.2) k/uL PT 10.9 (9.0-12.0) sec INR 1.1 (<1.2) APTT 24.2 (22.0-30.0) sec Sodium (137-145) mmol/L Potassium (3.5-5.1) mmol/L Chloride (98-107) mmol/L Carbon Dioxide (22-30) mmol/L Anion Gap mmol/L BUN (7-17) mg/dL Creatinine (0.52-1.04) mg/dL Est GFR (MDRD) Af Amer (>60 ml/min/1.73 sqM) Est GFR (MDRD) Non-Af (>60 ml/min/1.73 sqM) Glucose (74-99) mg/dL Calcium (8.4-10.2) mg/dL Magnesium (1.6-2.3) mg/dL Total Bilirubin (0.2-1.3) mg/dL AST (14-36) U/L ALT (9-52) U/L Alkaline Phosphatase (38-126) U/L Total Creatine Kinase (30-135) U/L CK-MB (CK-2) (0.0-2.4) ng/mL CK-MB (CK-2) Rel Index Troponin I (0.000-0.034) ng/mL NT-Pro-B Natriuret Pep 346 pg/mL Total Protein (6.3-8.2) g/dL Albumin (3.5-5.0) g/dL - Radiology Data Radiology results: report reviewed (Chest x-ray is negative for pneumonia), image reviewed Disposition Clinical Impression: COPD with acute lower respiratory infection, Acute exacerbation of chronic obstructive airways disease Disposition: ADMITTED IP TO THIS HOSP Condition: Fair Referrals: Reese Allen DO [Primary Care Provider] - 1-2 days
[2016-12-14 14:00] LABS: Basophils # (A) 0.1 k/uL (0-0.2); Basophils % (A) 1 %; CH 30.2; Eosinophils # (A) 0.3 k/uL (0-0.7); Eosinophils % (A) 4 %; HCT 32.5 % (34.0-46.0); HDW 2.96; Luc # (Auto) 0.14; Luc % (Auto) 2; Lymphocytes # (A) 1.1 k/uL (1.0-4.8); Lymphocytes % (A) 17 %; MCH 30.2 pg (25.0-35.0); MCHC 33.9 g/dL (31.0-37.0); Mean Platelet Volume 7.4; Monocytes # (A) 0.3 k/uL (0-1.0); Monocytes % (A) 4 %; Neutrophils # (A) 4.6 k/uL (1.3-7.7); Neutrophils % (A) 72 %; RBC 3.66 m/uL (3.80-5.40); WBC 6.5 k/uL (3.8-10.6); WBC (Perox) 6.38
[2016-12-14 14:08] LABS: INR 1.1 (<1.2); Prothrombin Time 10.9 sec (9.0-12.0)
[2016-12-14 14:09] LABS: ALT 47 U/L (9-52); AST 31 U/L (14-36); Alkaline Phosphatase 67 U/L (38-126); Anion Gap 7 mmol/L; Blood Urea Nitrogen 13 mg/dL (7-17); Calcium 9.2 mg/dL (8.4-10.2); Carbon Dioxide 35 mmol/L (22-30); Chloride 94 mmol/L (98-107); Glucose 123 mg/dL (74-99); Magnesium 1.5 mg/dL (1.6-2.3); Non-African American GFR(MDRD) >60 (>60 ml/min/1.73 sqM); Partial Thromboplastin Time 24.2 sec (22.0-30.0); Potassium 4.2 mmol/L (3.5-5.1); Sodium 136 mmol/L (137-145); Total Bilirubin 0.5 mg/dL (0.2-1.3); Total Protein 6.1 g/dL (6.3-8.2)
[2016-12-14 14:19] LABS: Creatine Kinase 32 U/L (30-135)
[2016-12-14 14:33] LABS: Creatine Kinase MB 0.8 ng/mL (0.0-2.4); Troponin I <0.012 ng/mL (0.000-0.034)
[2016-12-14] MEDS ORDERED: methylPREDNISolone SOD SUCCI 125 MG/2 ML VIAL IV STA (14:48)
--- NOTE | 2016-12-14 14:50 | XR ---
EXAMINATION TYPE: XR chest 1V portable DATE OF EXAM: 12/14/2016 COMPARISON: NONE HISTORY: COPD TECHNIQUE: Single frontal view of the chest is obtained. FINDINGS: There is no heart failure. Costophrenic angles are clear. There is slight increased densit y at the superior right pulmonary hilum. Thoracic aorta is atheromatous. There are chest leads. Bony thorax appears intact. IMPRESSION: There is probably some COPD. Increased density at the right pulmonary hilum consistent w ith treated lung cancer without change compared to old exam.
[2016-12-14] MEDS: MAGNESIUM SULFATE-D5W PMX 1 GM in DEXTROSE/WATER 1 100ML.BAG IVPB SCH ×2 (15:28→16:48)
[2016-12-14] MEDS: IPRATROPIUM-ALBUTEROL 3 ML NEB INHALATION SCH ×2 (16:38→19:52)
[2016-12-14] MEDS: methylPREDNISolone SOD SUCCI 125 MG/2 ML VIAL IV SCH ×2 (17:59→22:58)
[2016-12-14] MEDS ORDERED: ALBUTEROL NEBULIZED 2.5 MG/3 ML INHALATION PRN (18:50)
[2016-12-14] MEDS ORDERED: CYCLOBENZAPRINE 10 MG TAB PO PRN (18:50)
[2016-12-14] MEDS: SYMBICORT 80-4.5 MCG INHALER INHALATION SCH (19:53)
[2016-12-14 21:10] LABS: Glucose,Whole Blood 418 mg/dL (75-99)
[2016-12-14 21:10] LABS: Glucose,Whole Blood 427 mg/dL (75-99)
[2016-12-14] MEDS: ASPIRIN 81 MG CHEW PO SCH (21:19)
[2016-12-14] MEDS: APIXABAN 2.5 MG TABLET PO SCH (21:19)
[2016-12-14] MEDS: INSULIN LISPRO (humaLOG) 300 UNIT/3 ML VIAL SQ SCH (21:20)
[2016-12-14] MEDS ORDERED: INSULIN LISPRO (humaLOG) 300 UNIT/3 ML VIAL SQ ONE (21:42)
[2016-12-14] MEDS: METOPROLOL TARTRATE 25 MG TAB PO SCH (22:10)
[2016-12-14] MEDS: MELATONIN 5 MG TABLET PO SCH (22:10)
[2016-12-14 22:16] LABS: Glucose,Whole Blood 416 mg/dL (75-99)
[2016-12-14] MEDS ORDERED: HYDROcodone/APAP 10-325MG 1 EACH TAB PO PRN (23:47)
[2016-12-14] MEDS ORDERED: FAMOTIDINE 20 MG TAB PO PRN (23:47)
[2016-12-14] MEDS ORDERED: TEMAZEPAM 15 MG CAP PO PRN (23:48)
[2016-12-15 02:22] LABS: Glucose,Whole Blood 298 mg/dL (75-99)
[2016-12-15] MEDS: methylPREDNISolone SOD SUCCI 125 MG/2 ML VIAL IV SCH ×4 (05:57→23:02)
[2016-12-15 06:17] LABS: Appearance,Urine Clear (Clear); Bilirubin,Urine Negative (Negative); Glucose,Urine (UA) 4+ (Negative); Ketones,Urine Negative (Negative); Leukocyte Esterase,Urine Negative (Negative); Nitrite,Urine Negative (Negative); Protein,Urine Negative (Negative); Specific Gravity,Urine 1.009 (1.001-1.035); UA Billing (MACRO vs. MICRO) CHEM; Urobilinogen,Urine <2.0 mg/dL (<2.0)
[2016-12-15 07:01] LABS: Glucose,Whole Blood 258 mg/dL (75-99)
[2016-12-15] MEDS: SYMBICORT 80-4.5 MCG INHALER INHALATION SCH ×2 (07:45→19:44)
[2016-12-15] MEDS: IPRATROPIUM-ALBUTEROL 3 ML NEB INHALATION SCH ×4 (07:45→19:44)
[2016-12-15] MEDS: FUROSEMIDE 40 MG TAB PO SCH (07:49)
[2016-12-15] MEDS: INSULIN LISPRO (humaLOG) 300 UNIT/3 ML VIAL SQ SCH ×4 (07:49→21:23)
[2016-12-15] MEDS: GABAPENTIN 300 MG CAP PO SCH ×3 (07:49→21:21)
[2016-12-15] MEDS: ATORVASTATIN 80 MG TAB PO SCH (07:49)
[2016-12-15] MEDS: METOPROLOL TARTRATE 25 MG TAB PO SCH ×3 (07:49→20:33)
[2016-12-15] MEDS: APIXABAN 2.5 MG TABLET PO SCH ×2 (07:50→20:31)
[2016-12-15] MEDS: METOPROLOL TARTRATE 50 MG TAB PO SCH ×2 (07:50→20:33)
[2016-12-15 08:41] LABS: Basophils % (A) 0 %; Eosinophils % (A) 0 %; HDW 2.89; HGB 10.5 gm/dL (11.4-16.0); Luc # (Auto) 0.03; Luc % (Auto) 0; Lymphocytes # (A) 0.6 k/uL (1.0-4.8); Lymphocytes % (A) 8 %; MCHC 32.9 g/dL (31.0-37.0); MCV 91.2 fL (80.0-100.0); Mean Platelet Volume 7.4; Monocytes # (A) 0.1 k/uL (0-1.0); Monocytes % (A) 1 %; Neutrophils # (A) 6.9 k/uL (1.3-7.7); Neutrophils % (A) 90 %; RBC 3.51 m/uL (3.80-5.40); RDW 14.7 % (11.5-15.5); WBC 7.7 k/uL (3.8-10.6); WBC (Perox) 7.88
[2016-12-15 08:57] LABS: Anion Gap 11 mmol/L; Blood Urea Nitrogen 18 mg/dL (7-17); Calcium 9.4 mg/dL (8.4-10.2); Carbon Dioxide 31 mmol/L (22-30); Chloride 92 mmol/L (98-107); Glucose 225 mg/dL (74-99); Non-African American GFR(MDRD) >60 (>60 ml/min/1.73 sqM); Potassium 4.3 mmol/L (3.5-5.1); Sodium 134 mmol/L (137-145)
[2016-12-15] MEDS ORDERED: GABAPENTIN 100 MG CAP PO SCH (09:00)
[2016-12-15] MEDS ORDERED: ENOXAPARIN 40 MG/0.4 ML SYRINGE SQ SCH (09:00)
[2016-12-15] MEDS ORDERED: RX INFO: IV CONTRAST WAS GIVEN 1 EACH MISC MISCELLANE PRN (12:01)
[2016-12-15 12:47] LABS: Glucose,Whole Blood 253 mg/dL (75-99)
--- NOTE | 2016-12-15 14:06 | HP ---
DATE OF ADMISSION: 12/14/16 CHIEF COMPLAINT: Shortness of breath and cough. HISTORY OF PRESENT ILLNESS: This 76-year-old woman with a past medical history of atrial fibrillation, history of congestive heart failure, history of COPD, CVA/TIA, history of DVT, history of fibromyalgia, GERD, hypertension, hyperlipidemia, DJD, history of back pain, being followed by Dr. Allen and Dr. Guillaume in the outpatient setting was complaining of shortness of breath, cough and sputum since Thursday. The patient came to [facility] and admitted to the hospital for further evaluation and treatment. Increased right lung opacity was noted otherwise there is right hilar opacity noted, otherwise, there is no history of any fever, rigors or chills. No history of headache, loss of consciousness or seizures. PAST MEDICAL HISTORY: Atrial fibrillation, history of CHF, COPD, CVA/TIA, DVT, GERD, hypertension, hyperlipidemia, history of DJD. Medications prior to admission include home medications: 1. Vitamin A/C lutein minerals. 2. Vitamin B complex. 3. Zantac. 4. Protonix 40 mg q.a.m. 5. Lopressor 50 mg po b.i.d. 6. Melatonin 10 mg q.h.s. 7. Zestril 2.5 mg daily. 8. Xopenex 1.25 q.i.d. 9. Atrovent 0.5 q.i.d. 10. [place] one tablet t.i.d. prn 11. Neurontin 100 to 300 mg t.i.d. 12. Lasix 40 mg po daily. 13. Advair 100/50 one puff b.i.d. 14. Flexeril 10 mg q.h.s. prn 15. Vitamin D3 1000 with supper. 16. Lipitor 80 mg daily. 17. Ecotrin 81 mg q.h.s. 18. Eliquis 2.5 mg b.i.d. 19. Proventil HFA one to two puffs q6h prn 20. Xanax 0.5 t.i.d. prn ALLERGIES: None. FAMILY HISTORY: History of CHF, COPD in the family. SOCIAL HISTORY: Previous history of smoking. No current history of smoking or alcohol intake. REVIEW OF SYSTEMS: ENT: No diminished vision. No diminished hearing. Cardiovascular: As mentioned earlier. Respiratory: As mentioned earlier. GI: No nausea or vomiting. No diarrhea. : No dysuria. Nervous system: No numbness or weakness. Allergy/Immunology: No asthma or hayfever. Musculoskeletal: As mentioned earlier . Hematology/Oncology: No history of anemia. Endocrine: No history of hypothyroidism. Previous history of diabetes mellitus and hypoglycemia. Constitutional: As mentioned earlier. Dermatology: Negative. Rheumatology: Negative. Psychiatry: As mentioned earlier. PHYSICAL EXAMINATION: The patient is alert and oriented times three. Pulse 72. Blood pressure 109/71. Respiratory rate 18, temperature 97.1. Pulse ox 99% on 2 L. HEENT: Conjunctivae normal. Oral mucosa moist. NECK: No JVD. No carotid bruit. No lymph node enlargement. Cardiovascular: S1, S2. No S3, no S4. Respiratory: Breath sounds diminished at the bases. Bilateral scattered rhonchi and o crackles. Expiratory wheezing and crackles. Abdomen is soft. Nontender. No mass palpable. Legs: No edema. No swelling. Nervous system: Higher functions as mentioned earlier. Moves all four limbs. No focal motor deficits. Lymphatics: No lymph nodes palpable in the neck, axillae or groin. SKIN: No ulcer, rash or bleeding. LABS: WBC 6.5, hemoglobin 11. Sodium 136. Glucose 123 and 427. ASSESSMENT: 1. Chronic obstructive pulmonary disease acute exacerbation with acute purulent tracheobronchitis. 2. Increased random blood sugar possibly diabetes mellitus type 2, uncontrolled. 3. Anemia, normocytic. 4. Hyponatremia. 5. Hypomagnesemia. 6. History of atrial fibrillation. 7. History of congestive heart failure. 8. History of chronic obstructive pulmonary disease. 9. History of deep venous thrombosis. 10. History of fibromyalgia. 11. Gastroesophageal reflux disease. 12. Hyperlipidemia. 13. Hypertension. RECOMMENDATIONS AND DISCUSSION: In this 76 -year-old woman who presented with multiple complex medical issues, we will monitor the patient closely, continue the current medications. Continue symptomatic treatment. Continue bronchodilators. Continue antibiotics. I would also recommend Dr. Guillaume to consult. Otherwise, repeat labs will be ordered. Magnesium supplementation. Guarded prognosis because of multiple complex medical issues. As mentioned earlier, the patient is not taking any po medications for diabetes. We will continue to monitor. Insulin may be given on a prn basis. Blood sugars are elevated constantly, ( ) might be useful. Overall prognosis guarded. Further recommendations to follow. See orders for further details. MTDD
--- NOTE | 2016-12-15 15:03 | P.CNPUL ---
History of Present Illness Consult date: 12/15/16 Requesting physician: Samara Pack Reason for consult: COPD Chief complaint: Shortness of breath History of present illness: This is a 76-year-old female patient being seen, examined and evaluated this patient is well-known to our services. This patient was seen in the outpatient setting last Thursday. The patient stated that after her appointment she became progressively short of breath with a cough and yellow sputum. This patient is known to have a history of right lung cancer status post radiation for 5 years. Patient does chronically use supplemental oxygen at home 2 L via nasal cannula at all times. A chest x-ray was obtained and does show COPD, increased density at the right pulmonary hilum consistent with treated lung cancer without change compared to old exam. The patient did have an admission in September where she was diagnosed with MRSA pneumonia. Upon examination the patient's resting in bed on 2 L of supplemental oxygen she complains of shortness of breath with exertion or extensive conversation. Patient states she has a productive cough with yellow sputum. Patient also states that she has some pleuritic chest pain with cough. Of note the patient does complain of right scapular tenderness is noted that she has a 3 cm firmness of skin that is tethered with underlying ribs and soft tissues the patient states she's had this for approximately one year. Patient does denies any, fevers, nausea, vomiting, diarrhea or constipation. Review of Systems 14 point review of systems was completed and is negative unless noted above in the HPI. Past Medical History Past Medical History: Atrial Fibrillation, Cancer, Heart Failure, COPD, CVA/TIA , Deep Vein Thrombosis (DVT), Fibromyalgia, GERD/Reflux, Hyperlipidemia, Hypertension, Osteoarthritis (OA), Pneumonia, Sleep Apnea/CPAP/BIPAP, Vascular Disorder Additional Past Medical History / Comment(s): back pain , lung cancer-radiation opnly, HOME 02 2 LITERS N/C, BLOOD CLOT AFTER SX, CVA LT SIDE AFFECTED SINCE RESOLVED, HIATAL HERNIA. SHINGLES 30 YEARS AGO, DOES'NT USE CPAP MACHINE.in past for short period of time took oral meds for dm-then taken off meds-pt stated not considered diabetic now but occ will check bs., macular degeneration.past broken rt leg and lt wrist. Raynauds. Pt currently has 3 fractured ribs on the right that she has "had for years and will not heal". History of Any Multi-Drug Resistant Organisms: MRSA Date of last positivie culture/infection: 09/25/16 MDRO Source:: BRONCH WASH Past Surgical History: Cholecystectomy, Heart Catheterization With Stent, Orthopedic Surgery Additional Past Surgical History / Comment(s): rt leg repaired after break-has pins, lt wrist-plate and screws. lung bx, stents tung groins. Past Anesthesia/Blood Transfusion Reactions: Family History of Problems w/ Anesthesia Additional Past Anesthesia/Blood Transfusion Reaction / Comment(s): daughter has diff waking after aa Date of Last Stent Placement:: unk Past Psychological History: Depression Additional Psychological History / Comment(s): pt [place] and [place]. does'nt drive-either daughters or sister takes her places. has home 02, nebulizer. . Ongoing tobacco smoker stopping just may 2016. Has a history of lung cancer with radiation. Smoking Status: Former smoker Past Alcohol Use History: Rare Additional Past Alcohol Use History / Comment(s): started smopking at age 14( 5), quit 2016 Past Drug Use History: None Reported - Past Family History Father Family Medical History: Congestive Heart Failure (CHF), COPD Additional Family Medical History / Comment(s): emphysema Mother Family Medical History: Cancer Medications and Allergies Home Medications Medication Instructions Recorded Confirmed Type Cyclobenzaprine [Flexeril] 10 mg PO HS PRN 09/23/16 12/14/16 History Fluticasone/Salmeterol [Advair 1 puff INHALATION RT-BID 09/23/16 12/14/16 History 100-50 Diskus] Pantoprazole Sodium [Protonix] 40 mg PO QAM 09/23/16 12/14/16 History Vits A,C,E/Lutein/Minerals 1 tab PO W/SUPPER 09/23/16 12/14/16 History [Ocuvite with Lutein Tablet] Aspirin EC [Ecotrin Low Dose] 81 mg PO HS 11/05/16 12/14/16 History Cholecalciferol [Vitamin D3] 1,000 unit PO W/SUPPER 11/05/16 12/14/16 History Hydrocodone/Acetaminophen [[place] 1 tab PO TID PRN 11/05/16 12/14/16 History 10-325 Tablet] Melatonin 10 mg PO HS 11/05/16 12/14/16 History Gabapentin [Neurontin] 100 - 300 mg PO TID 11/19/16 12/14/16 History Albuterol Sulfate [Proventil Hfa] 1 - 2 puff INHALATION RT-Q6H PRN 11/22/16 History Atorvastatin [Lipitor] 80 mg PO DAILY 11/22/16 12/14/16 History Furosemide [Lasix] 40 mg PO DAILY 11/22/16 12/14/16 History Lisinopril [Zestril] 2.5 mg PO DAILY 11/22/16 12/14/16 History Metoprolol Tartrate [Lopressor] 50 mg PO BID 11/22/16 12/14/16 History Ranitidine HCl [Zantac] 150 mg PO DAILY PRN 11/22/16 12/14/16 History Vitamin B Complex 1 cap PO DAILY 11/22/16 12/14/16 History Allergies Allergy/AdvReac Type Severity Reaction Status Date / Time No Known Allergies Allergy Verified 12/14/16 13:33 Physical Exam Vitals: Vital Signs Temp Pulse Pulse Resp BP BP Pulse Ox 12/15/16 11:53 74 12/15/16 11:42 71 12/15/16 07:57 68 12/15/16 07:47 67 98 12/15/16 07:00 97.4 F L 70 20 116/64 98 12/14/16 23:00 97.0 F L 74 18 101/50 97 12/14/16 20:07 72 12/14/16 19:55 74 12/14/16 19:12 97.1 F L 72 18 109/70 99 12/14/16 17:04 97.9 F 12/14/16 16:55 97.9 F 12/14/16 16:45 66 12/14/16 16:40 65 20 120/57 99 12/14/16 16:39 68 12/14/16 15:39 98.1 F 70 16 112/53 97 Intake and Output 12/14/16 12/15/16 12/15/16 22:59 06:59 14:59 Intake Total 650 500 Output Total 400 Balance 650 100 Intake: Amount of Fluid Infused ( 100 ml) Oral 550 500 Output: Urine 400 Other: # Voids 2 Weight 49.895 kg 52 kg GENERAL EXAM: Alert, active, comfortable in no apparent distress. HEAD: Normocephalic. EYES: Normal reaction of pupils, equal size. NOSE: Clear with pink turbinates. THROAT: No erythema or exudates. NECK: No masses, no JVD. CHEST: No chest wall deformity. LUNGS: Equal air entry with right sided basilar crackles. Basis diminished CVS: S1 and S2 normal with no audible mumurs, regular rhythm. ABDOMEN: No hepatosplenomegaly, normal bowel sounds, no guarding or rigidity. EXTREMITIES: No edema noted, pedal pulses palpable. SKIN: right scapular tenderness is noted that she has a 3 cm firmness of skin that is tethered with underlying ribs and soft tissues the patient states she's had this for approximately one year. CENTRAL NERVOUS SYSTEM: No focal deficits, tone is normal in all 4 extremities. Results - Laboratory Findings CBC and BMP: 12/15/16 08:13 12/15/16 08:13 PT/INR, D-dimer PT 10.9 sec (9.0-12.0) 12/14/16 13:45 INR 1.1 (<1.2) 12/14/16 13:45 Abnormal lab findings: Abnormal Labs 12/14/16 12/14/16 12/14/16 13:45 13:45 21:03 RBC 3.66 L Hgb 11.0 L Hct 32.5 L Lymphocytes # Sodium 136 L Chloride 94 L Carbon Dioxide 35 H BUN Glucose 123 H POC Glucose (mg/dL) 418 H Magnesium 1.5 L Total Protein 6.1 L Urine Glucose (UA) 12/14/16 12/14/16 12/15/16 21:05 22:14 02:18 RBC Hgb Hct Lymphocytes # Sodium Chloride Carbon Dioxide BUN Glucose POC Glucose (mg/dL) 427 H 416 H 298 H Magnesium Total Protein Urine Glucose (UA) 12/15/16 12/15/16 12/15/16 06:00 07:00 08:13 RBC 3.51 L Hgb 10.5 L Hct 32.0 L Lymphocytes # 0.6 L Sodium Chloride Carbon Dioxide BUN Glucose POC Glucose (mg/dL) 258 H Magnesium Total Protein Urine Glucose (UA) 4+ H 12/15/16 12/15/16 08:13 12:46 RBC Hgb Hct Lymphocytes # Sodium 134 L Chloride 92 L Carbon Dioxide 31 H BUN 18 H Glucose 225 H POC Glucose (mg/dL) 253 H Magnesium Total Protein Urine Glucose (UA) - Diagnostic Findings Chest x-ray: report reviewed, image reviewed Assessment and Plan Plan: Assessment Acute exacerbation of chronic obstructive pulmonary disease Acute purulent tracheobronchitis History of lung carcinoma Hyponatremia and hypomagnesemia History of atrial fibrillation History of congestive heart failure Coronary artery disease Peripheral artery disease Dyslipidemia Peripheral neuropathy Hypertension History of DVT Plan We will obtain a CTA of the chest. Depending on results from the CT of the patient may require a bronchoscopy. Continue with IV steroids. Medications have been reviewed and will be continued as ordered. Continue with pulmonary hygiene, coughing and deep breathing exercises, and supportive care. Supplemental oxygen to maintain oxygen saturations of 92% or better. Continue nebulizer treatments. Initiate and encourage incentive spirometer. GI and DVT prophylaxis. We will continue to monitor labs/results and adjust treatment as necessary. Further recommendations pending. I performed an examination of the patient and discussed their management with the nurse practitioner. I have reviewed the nurse practitioner's note and agree with the documented findings and plan of care.
--- NOTE | 2016-12-15 15:07 | CT ---
EXAMINATION TYPE: CT angio chest DATE OF EXAM: 12/15/2016 COMPARISON: CT chest September 23, 2016. HISTORY: Shortness of breath. CT DLP: 117.80 mGycm. Automated Exposure Control for Dose Reduction was Utilized. CONTRAST: CTA scan of the thorax is performed with IV Contrast, patient injected with 62 mL of Omnipaque 350, p ulmonary embolism protocol. MIP Images are created on CT scanner and reviewed. FINDINGS: LUNGS: There is background mild to moderate emphysematous change present bilaterally. There is interv al resolution of right upper lobe masslike consolidation. There is persistent slight less prominent m asslike scarring in the right lower lobe that is grossly stable favor postinflammatory. There is post erior atelectatic change in the right lower lobe with suspected tiny pleural effusion or thickening p osterior medially. There is calcified 4 mm nodule medially in the left lower lobe on axial image 61 r edemonstrated. There is no suspicious noncalcified parenchymal nodule or mass seen bilaterally. There is mild left basilar scarring and/or atelectasis posteriorly redemonstrated. No pneumothorax is note d bilaterally. Mild central peribronchial wall thickening is presumed product of underlying emphysema . MEDIASTINUM: There is satisfactory enhancement of the pulmonary artery and its branches, there is no CT evidence for pulmonary embolism. There are no greater than 1 cm hilar or mediastinal lymph nodes. No cardiomegaly or pericardial effusion is seen. Mild to moderate mixed plaque in the aorta is pre sent. Coronary artery calcification is redemonstrated which is noted marker for coronary artery disea se. OTHER: Cholecystectomy clips are noted. Osseous structures are demineralized. IMPRESSION: 1. No CT evidence for pulmonary embolism. 2. Mild to moderate emphysematous change redemonstrated with resolution of right upper lobe cavitary pneumonia. Scattered scarring and/or atelectasis most prominent in the right lower lobe is stable. No new acute pulmonary process clearly seen on current study.
[2016-12-15 17:01] LABS: Glucose,Whole Blood 246 mg/dL (75-99)
[2016-12-15] MEDS: MELATONIN 5 MG TABLET PO SCH (20:32)
[2016-12-15] MEDS: ASPIRIN 81 MG CHEW PO SCH (20:32)
[2016-12-15 21:41] LABS: Glucose,Whole Blood 221 mg/dL (75-99)
[2016-12-16] MEDS: ALPRAZolam 0.5 MG TAB PO PRN ×2 (00:26→22:06)
[2016-12-16] MEDS: methylPREDNISolone SOD SUCCI 125 MG/2 ML VIAL IV SCH ×2 (05:19→12:05)
[2016-12-16 07:26] LABS: Glucose,Whole Blood 236 mg/dL (75-99)
[2016-12-16] MEDS: IPRATROPIUM-ALBUTEROL 3 ML NEB INHALATION SCH ×4 (08:11→19:34)
[2016-12-16] MEDS: SYMBICORT 80-4.5 MCG INHALER INHALATION SCH ×2 (08:13→19:33)
[2016-12-16] MEDS: INSULIN LISPRO (humaLOG) 300 UNIT/3 ML VIAL SQ SCH ×4 (08:52→22:07)
[2016-12-16] MEDS: METOPROLOL TARTRATE 50 MG TAB PO SCH ×2 (08:53→22:07)
[2016-12-16 09:17] LABS: Anion Gap 8 mmol/L; Blood Urea Nitrogen 24 mg/dL (7-17); Carbon Dioxide 32 mmol/L (22-30); Chloride 93 mmol/L (98-107); Glucose 225 mg/dL (74-99); Potassium 4.5 mmol/L (3.5-5.1); Sodium 133 mmol/L (137-145)
[2016-12-16 09:18] LABS: Calcium 9.2 mg/dL (8.4-10.2); Non-African American GFR(MDRD) >60 (>60 ml/min/1.73 sqM)
[2016-12-16] MEDS ORDERED: LACTATED RINGERS 1,000 ML IV ONE (09:38)
[2016-12-16] MEDS ORDERED: PROPOFOL 10 MG/ML 20 ML VIAL IV ONE (09:42)
[2016-12-16] MEDS ORDERED: GLYCOPYRROLATE 0.2 MG/ML 2 ML VIAL ONE (09:42)
[2016-12-16] MEDS ORDERED: LIDOCAINE 1% INJ 10MG/ML (20 ML MDV) ONE (09:42)
[2016-12-16 09:48] VITALS: BMI 19.6
[2016-12-16 10:26] LABS: CH 29.1; CHCM 32.9; HCT 26.7 % (34.0-46.0); HDW 2.93; HGB 10.5 gm/dL (11.4-16.0); MCH 34.9 pg (25.0-35.0); MCV 88.9 fL (80.0-100.0); Mean Platelet Volume 7.2; RBC 3.01 m/uL (3.80-5.40); RDW 14.4 % (11.5-15.5); WBC 21.3 k/uL (3.8-10.6); WBC (Perox) 20.16
[2016-12-16] MEDS: ATORVASTATIN 80 MG TAB PO SCH (10:30)
[2016-12-16] MEDS: GABAPENTIN 300 MG CAP PO SCH ×3 (10:30→22:06)
[2016-12-16] MEDS: FUROSEMIDE 40 MG TAB PO SCH (10:30)
[2016-12-16] MEDS: APIXABAN 2.5 MG TABLET PO SCH ×2 (10:30→22:06)
[2016-12-16 10:36] LABS: MCHC 39.3 g/dL (31.0-37.0)
--- NOTE | 2016-12-16 11:32 | PN ---
DATE OF SERVICE: 12/15/2016 This is 76-year-old woman who was admitted with shortness of breath and COPD acute exacerbation is being closely monitored. The patient has shortness of breath of sudden onset. The pulmonary team has ordered a CTA which showed no evidence of pulmonary embolism and mild to moderate emphysematous changes and some resolution of the right upper lobe cavitary pneumonia. PAST MEDICAL HISTORY: Reviewed. REVIEW OF SYSTEMS: CARDIOVASCULAR: No angina, palpitations. RESPIRATORY: As mentioned earlier. GI: No nausea. : No dysuria. NERVOUS SYSTEM: No numbness or weakness. Current medications are reviewed that include [place] 10 mg, Ventolin 2.5 q.6, DuoNeb q.i.d. and p.r.n., Xanax 0.5 t.i.d. p.r.n., Eliquis 2.5 mg b.i.d, aspirin 81 mg q.h.s., Lipitor 80 mg p.o. daily, Symbicort 80/4.5 two puffs b.i.d., vitamin D3 one thousand daily, Flexeril 10 mg q.h.s. p.r.n., Pepcid 20 mg p.o. daily, Lasix 40 mg p.o. daily, Neurontin 300 mg p.o. t.i.d., Humalog scale, melatonin 10 mg q.h.s., Solu-Medrol 60 IV q.6, Lopressor 50 mg p.o. b.i.d , Restoril 50 mg q.h.s. PHYSICAL EXAM: Patient is alert and oriented x3, pulse 75, blood pressure 108/57, respirations 16, temperature 97.8, pulse ox 96% on 2 L. HEENT: Conjunctivae normal, oral mucosa moist. NECK: No jugular venous distension, no carotid bruit, no lymph node enlargement. CARDIOVASCULAR SYSTEM: S1, S2, muffled, no S3, no S4. RESPIRATORY: Breath sounds diminished at the bases. A few scattered rhonchi, no crackles. Respiratory wheezing also present. ABDOMEN: Soft, nontender, no mass palpable. LEGS: No edema, no swelling. NERVOUS SYSTEM: Higher functions as mentioned earlier, moves all 4 limbs, no focal motor deficits. LYMPHATICS: No lymph node enlargement neck or axillae. SKIN: No ulcer, rash or bleeding. LABS: WBC 7.7, hemoglobin is 10.5, sodium 134, potassium 4.3, Accu-Cheks are 253. ASSESSMENT: 1. Chronic obstructive pulmonary disease acute exacerbation with acute purulent tracheobronchitis. 2. Increased random blood sugar, possibly diabetes mellitus, uncontrolled. 3. CT angio showed no evidence of pulmonary embolism. 4. History of recent right upper pneumonia, cavitary with some resolution. 5. Anemia, normocytic. 6. Hyponatremia. 7. Hypomagnesemia. 8. History of atrial fibrillation. 9. History of congestive heart failure. 10. History of chronic obstructive pulmonary disease. 11. History of deep venous thrombosis. 12. History of fibromyalgia. 13. History of gastroesophageal reflux disease. 14. Hyperlipidemia. 15. History of hypertension. RECOMMENDATION: Recommend to continue with the monitoring and symptomatic treatment. Patient is still on IV antibiotics and bronchodilators. Blood sugar is still elevated and hemoglobin A1c is still not available. We will order separately. Otherwise, steroids and closely follow with Dr. Guillaume from Pulmonology. Otherwise, the guarded prognosis because of multiple complex medical issues and further recommendations to follow. Discussed with the patient and understands and agrees. SEBAS
[2016-12-16 11:37] LABS: Add Differential Manual Differential
[2016-12-16 11:54] LABS: Glucose,Whole Blood 228 mg/dL (75-99)
[2016-12-16 11:56] LABS: Band Neutrophils % 2.5 %; Metamyelocytes % 1.5 %; Nucleated Red Blood Cells 0 /100 WBC (0-0); Total Cells Counted 200
[2016-12-16 11:57] LABS: Rouleaux Present
[2016-12-16 11:58] LABS: Spherocytes Present; Toxic Granulation Present
[2016-12-16] MEDS: methylPREDNISolone SOD SUCCI 40 MG/ML 1 ML VIAL IV SCH (15:35)
--- NOTE | 2016-12-16 16:50 | P.PN ---
Subjective Principal diagnosis: This is a 76-year-old female patient being seen, examined and evaluated this patient is well-known to our services. This patient was seen in the outpatient setting last Thursday. The patient stated that after her appointment she became progressively short of breath with a cough and yellow sputum. This patient is known to have a history of right lung cancer status post radiation for 5 years. Patient does chronically use supplemental oxygen at home 2 L via nasal cannula at all times. A chest x-ray was obtained and does show COPD, increased density at the right pulmonary hilum consistent with treated lung cancer without change compared to old exam. The patient did have an admission in September where she was diagnosed with MRSA pneumonia. Upon examination the patient's resting in bed on 2 L of supplemental oxygen she complains of shortness of breath with exertion or extensive conversation. Patient states she has a productive cough with yellow sputum. Patient also states that she has some pleuritic chest pain with cough. Of note the patient does complain of right scapular tenderness is noted that she has a 3 cm firmness of skin that is tethered with underlying ribs and soft tissues the patient states she's had this for approximately one year. Patient does denies any, fevers, nausea, vomiting, diarrhea or constipation. Today patient is doing better in terms of breathing history of cough and feeling congestion in the chest but severity has improved, she has been explained about procedure bronchoscopy at length on multiple occasions family has been updated risk alternative complications and side effects have been explained Objective - Vital Signs Vital signs: Vital Signs Temp 97.5 F L 12/16/16 15:00 Pulse 76 12/16/16 16:33 Resp 16 12/16/16 15:00 BP 114/60 12/16/16 15:00 Pulse Ox 99 12/16/16 15:00 Intake & Output 12/15/16 12/16/16 12/16/16 18:59 06:59 18:59 Intake Total 450 50 Output Total 1400 Balance -1400 450 50 Weight 51.936 kg 51.936 kg Intake: IV 50 Oral 450 Output: Urine 1400 Other: # Voids 3 2 1 GENERAL EXAM: Alert, active, comfortable in no apparent distress. HEAD: Normocephalic. EYES: Normal reaction of pupils, equal size. NOSE: Clear with pink turbinates. THROAT: No erythema or exudates. NECK: No masses, no JVD. CHEST: No chest wall deformity. LUNGS: Equal air entry with right sided basilar crackles. Basis diminished CVS: S1 and S2 normal with no audible mumurs, regular rhythm. ABDOMEN: No hepatosplenomegaly, normal bowel sounds, no guarding or rigidity. EXTREMITIES: No edema noted, pedal pulses palpable. SKIN: right scapular tenderness is noted that she has a 3 cm firmness of skin that is tethered with underlying ribs and soft tissues the patient states she's had this for approximately one year. CENTRAL NERVOUS SYSTEM: No focal deficits, tone is normal in all 4 extremities. - Labs CBC & Chem 7: 12/16/16 08:41 12/16/16 08:41 Labs: Abnormal Lab Results - Last 24 Hours (Table) 12/15/16 12/15/16 12/16/16 Range/Units 16:59 21:22 07:24 WBC (3.8-10.6) k/uL RBC (3.80-5.40) m/uL Hgb (11.4-16.0) gm/dL Hct (34.0-46.0) % MCHC (31.0-37.0) g/dL Neutrophils # (Manual) (1.3-7.7) k/uL Lymphocytes # (Manual) (1.0-4.8) k/uL Sodium (137-145) mmol/L Chloride (98-107) mmol/L Carbon Dioxide (22-30) mmol/L BUN (7-17) mg/dL Glucose (74-99) mg/dL POC Glucose (mg/dL) 246 H 221 H 236 H (75-99) mg/dL Hemoglobin A1c (4.2-6.1) % 12/16/16 12/16/16 12/16/16 Range/Units 08:41 08:41 08:41 WBC 21.3 H (3.8-10.6) k/uL RBC 3.01 L (3.80-5.40) m/uL Hgb 10.5 L (11.4-16.0) gm/dL Hct 26.7 L (34.0-46.0) % MCHC 39.3 H (31.0-37.0) g/dL Neutrophils # (Manual) 20.3 H (1.3-7.7) k/uL Lymphocytes # (Manual) 0.5 L (1.0-4.8) k/uL Sodium 133 L (137-145) mmol/L Chloride 93 L (98-107) mmol/L Carbon Dioxide 32 H (22-30) mmol/L BUN 24 H (7-17) mg/dL Glucose 225 H (74-99) mg/dL POC Glucose (mg/dL) (75-99) mg/dL Hemoglobin A1c 7.0 H (4.2-6.1) % 12/16/16 Range/Units 11:53 WBC (3.8-10.6) k/uL RBC (3.80-5.40) m/uL Hgb (11.4-16.0) gm/dL Hct (34.0-46.0) % MCHC (31.0-37.0) g/dL Neutrophils # (Manual) (1.3-7.7) k/uL Lymphocytes # (Manual) (1.0-4.8) k/uL Sodium (137-145) mmol/L Chloride (98-107) mmol/L Carbon Dioxide (22-30) mmol/L BUN (7-17) mg/dL Glucose (74-99) mg/dL POC Glucose (mg/dL) 228 H (75-99) mg/dL Hemoglobin A1c (4.2-6.1) % Assessment and Plan Plan: Acute exacerbation of chronic obstructive pulmonary disease, suspect MRSA pneumonia Acute purulent tracheobronchitis History of lung carcinoma Hyponatremia and hypomagnesemia History of atrial fibrillation History of congestive heart failure Coronary artery disease Peripheral artery disease Dyslipidemia Peripheral neuropathy Hypertension History of DVT Plan I have reviewed CTA of the chest. Depending on results from the CT of the patient will require a bronchoscopy. Continue with IV steroids. Medications have been reviewed and will be continued as ordered. Continue with pulmonary hygiene, coughing and deep breathing exercises, and supportive care. Supplemental oxygen to maintain oxygen saturations of 92% or better. Continue nebulizer treatments. Initiate and encourage incentive spirometer. GI and DVT prophylaxis. We will continue to monitor labs/results and adjust treatment as necessary. Further recommendations pending. In case if MRSA is present and will obtain infectious disease consultation and likely will require anti-MRSA therapy for extended period of time
--- NOTE | 2016-12-16 16:54 | P.PCN ---
Date of Procedure: 12/16/16 Preoperative Diagnosis: Recurrent MRSA pneumonia Postoperative Diagnosis: As above Procedure(s) Performed: Bronchoscopy and bronchoalveolar lavage Implants: Anesthesia: other Surgeon: Rah Guillaume Estimated Blood Loss (ml): 0 Indications for Procedure: Recurrent pneumonia, MRSA pneumonia, lung cancer, severe COPD Operative Findings: As above Description of Procedure: Patient prepared and draped in usual fashion informed consent obtained from the patient the above this goal was passed through the right knee reveals the trachea was normal structure and function more inflammatory changes and edema was seen on the left side BAL was performed inspection of the right upper lobe middle lobe and right lower lobe was seen and no endobronchial mass lesion was seen inspection was performed on the left side as well besides having some erythema is scattered mucus pluggingsignificant pathology noted patient tolerated the procedure well no complications noted.
[2016-12-16 17:05] LABS: Glucose,Whole Blood 292 mg/dL (75-99)
[2016-12-16] MEDS ORDERED: CHOLECALCIFEROL 1,000 UNIT TAB PO SCH (17:30)
--- NOTE | 2016-12-16 18:24 | P.PN ---
Subjective Date of service 12/16/2016. Progress note being dictated for Dr. Pack. Interval history: This a 76-year-old female admitted with acute COPD exacerbation with acute purulent tracheobronchitis. Evaluated by pulmonary and underwent bronchoscopy today. Tolerated procedure well. States breathing a little bit better, nonproductive cough. Objective - Vital Signs Vital signs: Vital Signs Temp 97.5 F L 12/16/16 15:00 Pulse 76 12/16/16 16:33 Resp 16 12/16/16 15:00 BP 114/60 12/16/16 15:00 Pulse Ox 99 12/16/16 15:00 Intake & Output 12/15/16 12/16/16 12/16/16 18:59 06:59 18:59 Intake Total 450 50 Output Total 1400 Balance -1400 450 50 Weight 51.936 kg 51.936 kg Intake: IV 50 Oral 450 Output: Urine 1400 Other: # Voids 3 2 1 - Exam PHYSICAL EXAM: VITAL SIGNS: As above GENERAL: [Sitting up in bed, no acute distress] HEENT: [Pupils equal conjunctiva normal. Oral mucosa moist] NECK: [Supple, no JVD] RESPIRATORY EFFORT:[ Normal] LUNGS: [Diminished, right-bibasilar crackles, no wheezing, no rhonchi] CARDIOVASCULAR[ regular S1 and S2, no murmurs rubs or gallops] GI: [Abdomen soft, nontender, positive bowel sounds.] PSYCH: [Alert and oriented -3, mood and affect normal.] NEURO: No focal deficits, moves all 4 extremities, strength and sensation grossly intact - Labs CBC & Chem 7: 12/16/16 08:41 12/16/16 08:41 Labs: Abnormal Lab Results - Last 24 Hours (Table) 12/15/16 12/16/16 12/16/16 Range/Units 21:22 07:24 08:41 WBC 21.3 H (3.8-10.6) k/uL RBC 3.01 L (3.80-5.40) m/uL Hgb 10.5 L (11.4-16.0) gm/dL Hct 26.7 L (34.0-46.0) % MCHC 39.3 H (31.0-37.0) g/dL Neutrophils # (Manual) 20.3 H (1.3-7.7) k/uL Lymphocytes # (Manual) 0.5 L (1.0-4.8) k/uL Sodium (137-145) mmol/L Chloride (98-107) mmol/L Carbon Dioxide (22-30) mmol/L BUN (7-17) mg/dL Glucose (74-99) mg/dL POC Glucose (mg/dL) 221 H 236 H (75-99) mg/dL Hemoglobin A1c (4.2-6.1) % 12/16/16 12/16/16 12/16/16 Range/Units 08:41 08:41 11:53 WBC (3.8-10.6) k/uL RBC (3.80-5.40) m/uL Hgb (11.4-16.0) gm/dL Hct (34.0-46.0) % MCHC (31.0-37.0) g/dL Neutrophils # (Manual) (1.3-7.7) k/uL Lymphocytes # (Manual) (1.0-4.8) k/uL Sodium 133 L (137-145) mmol/L Chloride 93 L (98-107) mmol/L Carbon Dioxide 32 H (22-30) mmol/L BUN 24 H (7-17) mg/dL Glucose 225 H (74-99) mg/dL POC Glucose (mg/dL) 228 H (75-99) mg/dL Hemoglobin A1c 7.0 H (4.2-6.1) % 12/16/16 Range/Units 17:04 WBC (3.8-10.6) k/uL RBC (3.80-5.40) m/uL Hgb (11.4-16.0) gm/dL Hct (34.0-46.0) % MCHC (31.0-37.0) g/dL Neutrophils # (Manual) (1.3-7.7) k/uL Lymphocytes # (Manual) (1.0-4.8) k/uL Sodium (137-145) mmol/L Chloride (98-107) mmol/L Carbon Dioxide (22-30) mmol/L BUN (7-17) mg/dL Glucose (74-99) mg/dL POC Glucose (mg/dL) 292 H (75-99) mg/dL Hemoglobin A1c (4.2-6.1) % Assessment and Plan Plan: 1. [ Acute COPD exacerbation with acute purulent tracheobronchitis]. 2. [ Increased random blood sugar, diabetes mellitus, uncontrolled]. Hemoglobin A1c 7.0 3. [ Pulmonary embolism ruled out]. 4. [ Recent right upper pneumonia, cavitary with some resolution]. 5. [ Anemia, normocytic]. 6. [ Hyponatremia]. 7. [ Hypomagnesemia 8. Chronic atrial fibrillation 9. History of CHF 10. History of COPD 11. Gastroesophageal reflux disease 12. Hypertension 13. History of lung carcinoma Plan: Continue on current medication regime, nebulized bronchodilators, antibiotics, monitoring and symptomatic treatment. Patient has just returned from bronchoscopy, official report pending .Follow closely with pulmonary. Further recommendations to follow. The impression and plan of care has been dictated as directed. : I performed a H&P examination of this patient and discussed the same with the dictator. I agree with the dictator's note. Any additional findings/opinions/ etc. will be noted.
[2016-12-16 21:01] LABS: Glucose,Whole Blood 233 mg/dL (75-99)
[2016-12-16] MEDS: ASPIRIN 81 MG CHEW PO SCH (22:06)
[2016-12-17] MEDS: methylPREDNISolone SOD SUCCI 40 MG/ML 1 ML VIAL IV SCH ×2 (00:18→07:47)
[2016-12-17] MEDS: MELATONIN 5 MG TABLET PO SCH (00:20)
[2016-12-17] MEDS: SYMBICORT 80-4.5 MCG INHALER INHALATION SCH (07:19)
[2016-12-17] MEDS: IPRATROPIUM-ALBUTEROL 3 ML NEB INHALATION SCH ×2 (07:19→10:58)
[2016-12-17 07:25] VITALS: BP 146/66; RESP 19; TEMP 96.1
[2016-12-17 07:32] LABS: Glucose,Whole Blood 257 mg/dL (75-99)
[2016-12-17] MEDS: INSULIN LISPRO (humaLOG) 300 UNIT/3 ML VIAL SQ SCH ×2 (07:42→12:44)
[2016-12-17] MEDS: METOPROLOL TARTRATE 50 MG TAB PO SCH (07:47)
[2016-12-17] MEDS: APIXABAN 2.5 MG TABLET PO SCH (07:47)
[2016-12-17] MEDS: GABAPENTIN 300 MG CAP PO SCH (07:47)
[2016-12-17] MEDS: FUROSEMIDE 40 MG TAB PO SCH (07:48)
[2016-12-17] MEDS: ATORVASTATIN 80 MG TAB PO SCH (07:48)
[2016-12-17] MEDS ORDERED: FAMOTIDINE 20 MG TAB PO SCH (09:00)
[2016-12-17 09:35] LABS: Anion Gap 10 mmol/L; Blood Urea Nitrogen 25 mg/dL (7-17); Calcium 8.9 mg/dL (8.4-10.2); Carbon Dioxide 31 mmol/L (22-30); Chloride 92 mmol/L (98-107); Glucose 307 mg/dL (74-99); Non-African American GFR(MDRD) >60 (>60 ml/min/1.73 sqM); Potassium 4.3 mmol/L (3.5-5.1); Sodium 133 mmol/L (137-145)
[2016-12-17 09:38] LABS: Basophils % (A) 0 %; CH 29.4; CHCM 32.3; Eosinophils % (A) 0 %; HCT 31.3 % (34.0-46.0); HGB 10.2 gm/dL (11.4-16.0); Luc # (Auto) 0.05; Luc % (Auto) 0; Lymphocytes # (A) 0.6 k/uL (1.0-4.8); Lymphocytes % (A) 4 %; MCH 29.8 pg (25.0-35.0); MCHC 32.6 g/dL (31.0-37.0); MCV 91.4 fL (80.0-100.0); Mean Platelet Volume 7.7; Monocytes # (A) 0.3 k/uL (0-1.0); Monocytes % (A) 2 %; Neutrophils # (A) 16.4 k/uL (1.3-7.7); Neutrophils % (A) 94 %; RBC 3.42 m/uL (3.80-5.40); RDW 14.7 % (11.5-15.5); WBC 17.4 k/uL (3.8-10.6); WBC (Perox) 18.27
[2016-12-17] MEDS ORDERED: INSULIN LISPRO (humaLOG) 300 UNIT/3 ML VIAL SQ ONE (09:57)
[2016-12-17] MEDS ORDERED: MAG HYDROX/AL HYDROX/SIMETH 30 ML CUP PO PRN (09:58)
[2016-12-17 11:13] VITALS: PULSE 78
--- NOTE | 2016-12-17 11:53 | P.PN ---
Subjective This is a 76-year-old female patient being seen and examined and followed up with on rounds. Today patient is doing better in terms of breathing history of cough and feeling congestion in the chest, severity has improved, the patient underwent a bronchoscopy yesterday without any complication. Please see procedure note for details. He continues to use supplemental oxygen which she uses at home as well. No overnight events. Afebrile no further complaints. Objective - Vital Signs Vital signs: Vital Signs Temp 96.1 F L 12/17/16 07:00 Pulse 78 12/17/16 11:08 Resp 19 12/17/16 07:00 BP 146/66 12/17/16 07:00 Pulse Ox 97 12/17/16 07:00 Intake & Output 12/16/16 12/17/16 12/17/16 18:59 06:59 18:59 Intake Total 50 300 Balance 50 300 Weight 51.936 kg 53.297 kg Intake: IV 50 Oral 300 Other: # Voids 1 1 - Exam GENERAL EXAM: Alert, active, comfortable in no apparent distress. HEAD: Normocephalic. EYES: Normal reaction of pupils, equal size. NOSE: Clear with pink turbinates. THROAT: No erythema or exudates. NECK: No masses, no JVD. CHEST: No chest wall deformity. LUNGS: Diminished however more clear than yesterday. CVS: S1 and S2 normal with no audible mumurs, regular rhythm. ABDOMEN: No hepatosplenomegaly, normal bowel sounds, no guarding or rigidity. EXTREMITIES: No edema noted, pedal pulses palpable. SKIN: No rashes CENTRAL NERVOUS SYSTEM: No focal deficits, tone is normal in all 4 extremities. - Labs CBC & Chem 7: 12/17/16 08:55 12/17/16 08:55 Labs: Abnormal Lab Results - Last 24 Hours (Table) 12/16/16 12/16/16 12/16/16 Range/Units 08:41 08:41 11:53 WBC (3.8-10.6) k/uL RBC (3.80-5.40) m/uL Hgb (11.4-16.0) gm/dL Hct (34.0-46.0) % Neutrophils # (1.3-7.7) k/uL Neutrophils # (Manual) 20.3 H (1.3-7.7) k/uL Lymphocytes # (1.0-4.8) k/uL Lymphocytes # (Manual) 0.5 L (1.0-4.8) k/uL Sodium (137-145) mmol/L Chloride (98-107) mmol/L Carbon Dioxide (22-30) mmol/L BUN (7-17) mg/dL Glucose (74-99) mg/dL POC Glucose (mg/dL) 228 H (75-99) mg/dL Hemoglobin A1c 7.0 H (4.2-6.1) % 12/16/16 12/16/16 12/17/16 Range/Units 17:04 20:55 07:15 WBC (3.8-10.6) k/uL RBC (3.80-5.40) m/uL Hgb (11.4-16.0) gm/dL Hct (34.0-46.0) % Neutrophils # (1.3-7.7) k/uL Neutrophils # (Manual) (1.3-7.7) k/uL Lymphocytes # (1.0-4.8) k/uL Lymphocytes # (Manual) (1.0-4.8) k/uL Sodium (137-145) mmol/L Chloride (98-107) mmol/L Carbon Dioxide (22-30) mmol/L BUN (7-17) mg/dL Glucose (74-99) mg/dL POC Glucose (mg/dL) 292 H 233 H 257 H (75-99) mg/dL Hemoglobin A1c (4.2-6.1) % 12/17/16 12/17/16 Range/Units 08:55 08:55 WBC 17.4 H (3.8-10.6) k/uL RBC 3.42 L (3.80-5.40) m/uL Hgb 10.2 L (11.4-16.0) gm/dL Hct 31.3 L (34.0-46.0) % Neutrophils # 16.4 H (1.3-7.7) k/uL Neutrophils # (Manual) (1.3-7.7) k/uL Lymphocytes # 0.6 L (1.0-4.8) k/uL Lymphocytes # (Manual) (1.0-4.8) k/uL Sodium 133 L (137-145) mmol/L Chloride 92 L (98-107) mmol/L Carbon Dioxide 31 H (22-30) mmol/L BUN 25 H (7-17) mg/dL Glucose 307 H (74-99) mg/dL POC Glucose (mg/dL) (75-99) mg/dL Hemoglobin A1c (4.2-6.1) % Microbiology - Last 24 Hours (Table) 12/16/16 13:00 Gram Stain - Preliminary Bronchial Washings - Random Bronchial Washings Culture - Preliminary 12/16/16 13:00 Fungal Culture - Preliminary Bronchial Washings - Random 12/16/16 13:00 Acid Fast Bacilli Culture - Preliminary Bronchial Washings - Random Assessment and Plan Plan: Assessment Acute exacerbation of chronic obstructive pulmonary disease Acute purulent tracheobronchitis History of lung carcinoma Hyponatremia and hypomagnesemia History of atrial fibrillation History of congestive heart failure Coronary artery disease Peripheral artery disease Dyslipidemia Peripheral neuropathy Hypertension History of DVT Plan Patient can be discharged from a pulmonary standpoint. Patient will follow-up in the outpatient setting within 1 week of discharge. Antibiotics are be initiated in the outpatient setting depending on culture reports. We will send the patient home on a [employer] Dosepak. Continue with pulmonary hygiene, coughing and deep breathing exercises, and supportive care. Supplemental oxygen to maintain oxygen saturations of 92% or better. Continue nebulizer treatments. Initiate and encourage incentive spirometer. GI and DVT prophylaxis. We will continue to monitor labs/results and adjust treatment as necessary. Further recommendations pending. I performed an examination of the patient and discussed their management with the nurse practitioner. I have reviewed the nurse practitioner's note and agree with the documented findings and plan of care.
[2016-12-17 12:14] LABS: Glucose,Whole Blood 160 mg/dL (75-99)
[2016-12-18 16:03] LABS: Mis test requested (Non-blood) Pneumocytis DFA
[2016-12-19 09:28] LABS: Mis test requested (Non-blood) LEGONELLIA PCR
--- NOTE | 2016-12-20 11:53 | DS ---
FINAL DIAGNOSES: 1. Chronic obstructive pulmonary disease acute exacerbation. 2. Acute tracheobronchitis. 3. Diabetes mellitus, uncontrolled. 4. Pulmonary embolism ruled out. 5. History of recent right upper lobe pneumonia. 6. Hyponatremia. 7. Gastroesophageal reflux disease. DISCHARGE DISPOSITION: The patient will be discharged in stable condition with guarded prognosis. HISTORY OF PRESENT ILLNESS: This 76-year-old woman with the past medical history of multiple medical problems, was admitted with COPD acute exacerbation. The patient was treated symptomatically, improved significantly. On exam, vital signs are stable. CARDIOVASCULAR: S1/S2. RESPIRATORY: A few rhonchi. ABDOMEN: Soft. NERVOUS SYSTEM: No focal deficits. Dr. Guillaume saw the patient. DISCHARGE MEDICATION: 1. Albuterol p.r.n. 2. Eliquis 2.5 mg p.o. b.i.d. 3. Ecotrin 81 mg daily. 4. Lipitor 80 mg daily. 5. Vitamin D3-3,000 daily. 6. Flexeril 10 mg q h.s. 7. Advair one puff b.i.d. 8. Lasix 40 mg p.o. daily. 9. Neurontin 300 mg p.r.n. 10. Hydrocodone one t.i.d. p.r.n. 11. Atrovent and Xopenex updrafts q.i.d. and p.r.n. 12. Zestril 2.5 mg daily. 13. Melatonin 100 mg q.h.s. 14. Medrol Dosepak. 15. Lopressor 50 mg p.o. b.i.d. 16. Protonix 40 mg daily. 17. Vitamin B complex. 18. Vitamin A, C and D p.o. daily. TOTAL TIME TAKEN: 35 minutes. MTDD
== END 2016-12-17 14:03 | disposition home health service (06) ==
LOC: EC 12:57 → 4MS4W 14:48
PROVIDERS: ADMIT Hospitalist; ATTEND Hospitalist
DX: J44.1 Chronic obstructive pulmonary disease with (acute) exacerbation (principal); J44.0 Chronic obstructive pulmonary disease with (acute) lower respiratory infection; Z79.51 Long term (current) use of inhaled steroids; Z79.899 Other long term (current) drug therapy; Z79.82 Long term (current) use of aspirin; I50.9 Heart failure, unspecified; G47.30 Sleep apnea, unspecified; K21.9 Gastro-esophageal reflux disease without esophagitis; M79.7 Fibromyalgia; E78.5 Hyperlipidemia, unspecified; Z86.73 Personal history of transient ischemic attack (TIA), and cerebral infarction without residual deficits; Z86.718 Personal history of other venous thrombosis and embolism; Z87.01 Personal history of pneumonia (recurrent); M19.90 Unspecified osteoarthritis, unspecified site; Z92.3 Personal history of irradiation; Z99.81 Dependence on supplemental oxygen; Z86.14 Personal history of Methicillin resistant Staphylococcus aureus infection; Z95.5 Presence of coronary angioplasty implant and graft; Z87.891 Personal history of nicotine dependence; F32.9 Major depressive disorder, single episode, unspecified; I11.0 Hypertensive heart disease with heart failure; Z79.01 Long term (current) use of anticoagulants; D64.9 Anemia, unspecified; E87.1 Hypo-osmolality and hyponatremia; E83.42 Hypomagnesemia; Z85.118 Personal history of other malignant neoplasm of bronchus and lung; I25.10 Atherosclerotic heart disease of native coronary artery without angina pectoris; G62.9 Polyneuropathy, unspecified; J15.212 Pneumonia due to Methicillin resistant Staphylococcus aureus; I48.2 Chronic atrial fibrillation; E11.65 Type 2 diabetes mellitus with hyperglycemia; J20.9 Acute bronchitis, unspecified; M54.9 Dorsalgia, unspecified
CPT/HCPCS: 96365 ×2; 96366 ×2; 96375 ×2; 96376 ×3; 96361 ×2; 99285; 36415; 94640 ×8; 93005; 87798 ×5; 87541; 87496; 87498; 87529 ×2; 88108; 88305; 83880; 80053; 80048 ×3; 83036; 82550; 82553; 83735; 84484; 85025 ×4; 85610; 85730; 81003; 87252; 87502 ×2; 87070; 87205; 87116; 87102; 87206; 87299; 71010; 71275; 31624; G0378 ×4; J2920 ×2; J2930 ×3; Q9967; J2001; J3475; J2704

== ENCOUNTER → 2017-11-20 | Outpatient (CLI) | payer MEDICARE, OTHER ==
--- NOTE | 2017-11-21 18:54 | CT ---
EXAMINATION TYPE: CT chest w con DATE OF EXAM: 11/20/2017 COMPARISON: Prior chest CT 12/15/2016 HISTORY: History of lung cancer. CT DLP: 470 mGycm Automated exposure control for dose reduction was used. CONTRAST: CT scan of the chest is performed with IV Contrast, patient injected with 100 mL of Isovue 300. FINDINGS: LUNGS: There is a wedge-shaped area of increased attenuation at the right lung base similar to prior exam compatible with scar. Emphysematous changes are again present within the lungs. Nodular density at the left lung base is calcified and stable. No endobronchial lesion, pleural or pericardial effusi on. No mediastinal, axillary, or hilar adenopathy. MEDIASTINUM: There are no greater than 1 cm hilar or mediastinal lymph nodes. No pericardial effusi on is seen. AORTA: No additional significant abnormality is seen. OTHER: Posterior chest wall on the right shows multiple displaced rib fractures which may be postope rative. No evident adrenal mass. Patient is post cholecystectomy. IMPRESSION: No evident recurrence. Postop changes, scarring right lung base.
== END | disposition home or self-care (01) ==
LOC: RADCTMAIN 17:58
PROVIDERS: ATTEND Family Medicine
DX: Z08 Encounter for follow-up examination after completed treatment for malignant neoplasm (principal); J98.4 Other disorders of lung; Z85.110 Personal history of malignant carcinoid tumor of bronchus and lung; Z98.890 Other specified postprocedural states
CPT/HCPCS: 82565; 84520; 71260; 36415; Q9967

== ENCOUNTER → 2019-12-27 | Outpatient (CLI) | payer MEDICARE, OTHER ==
--- NOTE | 2019-12-27 16:34 | NM ---
EXAMINATION TYPE: NM bone scan whole body DATE OF EXAM: 12/27/2019 COMPARISON: 12/05/2013 HISTORY: Lung cancer Delayed whole-body scanning was performed following the injection of 22.4 mCi Tc 99m MDP. Images wer e acquired 3 hours post injection. FINDINGS: There is mild uptake on the central L4 level and left L5-S1 levels which could be degenerative in carrie ure. These may be new. There is some mild uptake in the region of T11. This appears to be increasing from comparison. Mild uptake is present at the right T10 level. This is new. There is mild uptake in the region of the lower cervical spine. This is mildly increased over the int erval. There is uptake at the superior lateral right acetabulum. This is new. IMPRESSION: 1. New areas of uptake within the superior right acetabulum left posterior L5-S1 centrally at L4. Ev aluation for new metastatic disease should be performed with plain film. 2. Mild uptake within the cervical spine and T11 are increasing and may be degenerative in nature.
== END | disposition home or self-care (01) ==
LOC: RADNMMAIN 11:23
PROVIDERS: ATTEND Internal Medicine
DX: R94.8 Abnormal results of function studies of other organs and systems (principal); C34.90 Malignant neoplasm of unspecified part of unspecified bronchus or lung
CPT/HCPCS: 78306; A9503

== ENCOUNTER → 2020-01-11 | Outpatient (CLI) | payer MEDICARE, OTHER ==
--- NOTE | 2020-01-11 10:00 | CT ---
EXAMINATION TYPE: CT chest w con DATE OF EXAM: 01/11/2020 COMPARISON: CT chest November 20, 2017 and older CTs HISTORY: Abnormal findings in lung field CT DLP: 145.6 mGycm. Automated Exposure Control for Dose Reduction was Utilized. TECHNIQUE: CT scan of the thorax is performed following with IV Contrast, patient injected with 80 m L of Isovue 300. FINDINGS: LUNGS: Background [id number] underlying emphysematous change greatest in the upper lungs remain s present. Redemonstration of slightly thickened irregular obliquely oriented consolidation right low er lobe from the hilum extending posteriorly and inferiorly throughout the right lower lobe with wesley tional mild to moderate linear scarring and/or atelectasis. This is not significantly changed from la st few CT suggesting chronic scarring related to old infection or inflammation. Mild to moderate post erior left basilar linear scarring or atelectasis on current study. New 8 x 4 mm scarlike opacity rig ht mid lung anteriorly on axial image 32 and coronal image 26 along with sagittal image 35 is noted. No new groundglass opacity or consolidation. Stable 7 mm superior medial calcified left lower lobe no dule or granuloma. No pleural effusion or pneumothorax noted bilaterally. MEDIASTINUM: There are no greater than 1 cm hilar or mediastinal lymph nodes. No cardiomegaly or p ericardial effusion is seen. Three-vessel coronary artery calcification is redemonstrated which is n oted marker for underlying coronary artery disease. OTHER: Cholecystectomy clips are again seen. There is occasional thin-walled cysts scattered througho ut the visualized portion of the left kidney. Slight scoliotic curvature with mild multilevel spurrin g in thoracic spine. Persistent posterior right mid rib healed displaced fracture deformities noted. IMPRESSION: Mild to moderate emphysematous change with stable right lower lobe scarring. No acute pul monary process. New 8 x 4 mm scarlike opacity or spiculated nodule right midlung. Follow-up chest CT in 6-12 months time is advised to reassess as per Fleischner Society recommendations.
== END | disposition home or self-care (01) ==
LOC: RADCTMAIN 08:02
PROVIDERS: ATTEND Family Medicine
DX: J43.9 Emphysema, unspecified (principal)
CPT/HCPCS: 82565; 84520; 71260; 36415; Q9967

== ENCOUNTER → 2020-04-03 | Outpatient (CLI) | payer MEDICARE, OTHER ==
--- NOTE | 2020-04-03 10:09 | US ---
EXAMINATION TYPE: US abdomen limited DATE OF EXAM: 04/03/2020 COMPARISON: NONE CLINICAL HISTORY: R10.11 right upper quad pain. Patient states having RUQ pain when she moves. GB castro rgically absent. EXAM MEASUREMENTS: Liver Length: 12.0 cm CBD: 0.6 cm Right Kidney: 8.7 x 4.3 x 3.5 cm Pancreas: Echogenic in appearance. Tail obscured by overlying bowel gas. Liver: wnl Gallbladder: Surgically absent Evidence for sonographic De León's sign: neg CBD: wnl Right Kidney: No hydronephrosis or masses seen IMPRESSION: No distinct abnormality seen.
== END | disposition home or self-care (01) ==
LOC: RADUSWWP 09:38
PROVIDERS: ATTEND Family Medicine
DX: R10.11 Right upper quadrant pain (principal)
CPT/HCPCS: 76705

== ENCOUNTER 2020-04-19 00:06 | Inpatient (IN) | payer MEDICARE, OTHER ==
[2020-04-19] MEDS ORDERED: DILTIAZEM DRIP BOLUS FROM BAG 1 MG SOLN IV ONE (00:25)
[2020-04-19] MEDS ORDERED: DILTIAZEM 125 MG in SODIUM CHLORIDE 0.9% 100 ML IV SCH (00:30)
[2020-04-19 01:03] LABS: Basophils # (A) 0.1 k/uL (0-0.2); Basophils % (A) 1 %; Eosinophils # (A) 0.3 k/uL (0-0.7); Eosinophils % (A) 3 %; HCT 41.1 % (34.0-46.0); Lymphocytes # (A) 3.3 k/uL (1.0-4.8); Lymphocytes % (A) 34 %; MCH 30.3 pg (25.0-35.0); MCV 89.2 fL (80.0-100.0); Mean Platelet Volume 7.9; Monocytes # (A) 0.7 k/uL (0-1.0); Monocytes % (A) 7 %; Neutrophils # (A) 5.2 k/uL (1.3-7.7); Neutrophils % (A) 53 %; Platelet Count 271 k/uL (150-450); RBC 4.61 m/uL (3.80-5.40); WBC 9.7 k/uL (3.8-10.6)
[2020-04-19 01:16] LABS: Partial Thromboplastin Time 23.6 sec (22.0-30.0); Prothrombin Time 10.4 sec (9.0-12.0)
[2020-04-19 01:38] LABS: Albumin 4.9 g/dL (3.5-5.0); Calcium 10.2 mg/dL (8.4-10.2); Magnesium 1.9 mg/dL (1.6-2.3); Potassium 3.6 mmol/L (3.5-5.1); Total Bilirubin 0.5 mg/dL (0.2-1.3); Total Protein 7.9 g/dL (6.3-8.2)
--- NOTE | 2020-04-19 01:42 | XR ---
EXAM: XR Chest, 1 View CLINICAL HISTORY: None. TECHNIQUE: Frontal view of the chest. COMPARISON: December 14, 2016. FINDINGS: Lungs: Evidence of COPD. Somewhat masslike density in the mid to lower aspect of the right lung appears more prominent than on the prior study. Irregular shaped to the right hilum appears stable. Pleural space: Unremarkable. No pneumothorax or pleural fluid. Heart: Unremarkable. No cardiomegaly. Mediastinum: Unremarkable. Bones/joints: No acute findings. IMPRESSION: Increasing density in the mid to lower aspect of the right lung. Consider CT for further evaluation.
[2020-04-19] MEDS ORDERED: NITROGLYCERIN SL TABS 0.4 MG TAB SUBLINGUAL PRN (01:47)
[2020-04-19] MEDS ORDERED: LORazepam 2 MG/ML INJ IV STA (01:47)
[2020-04-19] MEDS ORDERED: HYDROcodone/APAP 10-325MG 1 EACH TAB PO PRN (01:50)
[2020-04-19] MEDS ORDERED: CYCLOBENZAPRINE 10 MG TAB PO PRN (01:50)
[2020-04-19] MEDS ORDERED: ALPRAZolam 0.5 MG TAB PO PRN (01:50)
--- NOTE | 2020-04-19 01:54 | ED ---
Chest Pain HPI - General Chief Complaint: Chest Pain Stated Complaint: Chest Pain Time Seen by Provider: 04/19/20 00:16 Source: EMS Mode of arrival: EMS Limitations: no limitations - History of Present Illness Initial Comments: This patient is an 79-year-old woman who presents to be evaluated for substernal chest pain and for palpitations. The patient does report that she was recently taken off of metoprolol which she was on for atrial fibrillation, as she was complaining of fatigue. The patient tonight developed burning type substernal chest pain that came on approximately 10 that she noticed that her heart was racing. She also is feeling quite shaky and jittery. There is a little bit of dyspnea. MD Complaint: chest pain -: hour(s) Onset: awoke with symptoms Pain Location: substernal Pain Radiation: none Severity: moderate Quality: other (Burning) Consistency: constant Improves With: nothing Worsens With: nothing Other Symptoms: palpitations Treatments Prior to Arrival: aspirin, nitroglycerin - Related Data Home Medications Medication Instructions Recorded Confirmed Cyclobenzaprine [Flexeril] 10 mg PO TID PRN 09/23/16 04/20/20 Pantoprazole Sodium [Protonix] 40 mg PO QAM 09/23/16 04/19/20 Aspirin EC [Ecotrin Low Dose] 81 mg PO HS 11/05/16 04/19/20 Atorvastatin Calcium [Lipitor] 40 mg PO BID 04/19/20 04/19/20 Dm/Acetaminophen/Doxylamine [Vicks 1 cap PO HS PRN 04/19/20 04/19/20 Nyquil Liquicaps] Fluticasone/Umeclidin/Vilanter 1 puff INHALATION RT-DAILY 04/19/20 04/19/20 [Trelegy Ellipta 100-62.5-25] Levalbuterol HCl [Xopenex] 1.25 mg INHALATION RT-Q8H PRN 04/19/20 04/19/20 Prebiotic (Unknown Strength) 1 tab PO DAILY 04/19/20 04/19/20 Previous Rx's Medication Instructions Recorded Apixaban [Eliquis] 2.5 mg PO BID tablet 10/02/16 Acetaminophen Tab [Tylenol] 325 mg PO DAILY PRN #25 tab 04/21/20 Calcium Carb-Vit D 500Mg-200Un 1 each PO BID-W/MEALS #60 tab 04/21/20 [Oscal 500+D] Cholecalciferol [Vitamin D3 (25 1,000 unit PO W/SUPPER #30 tab 04/21/20 Mcg = 1000 Iu)] Diltiazem Oral [Cardizem*] 30 mg PO TID #90 tab 04/21/20 Hydrocodone/Acetaminophen [Barnum 1 tab PO Q12HR PRN 4 Days #8 tab 04/21/20 5-325] Lidocaine 5% Patch [Lidoderm 5% 1 patch TOPICAL DAILY #7 patch 04/21/20 Patch] Nitroglycerin Sl Tabs [Nitrostat] 0.4 mg SUBLINGUAL Q5M PRN #20 tab 04/21/20 lisinopriL [Zestril] 2.5 mg PO DAILY #30 tab 04/21/20 PARoxetine HCL [Paxil] 10 mg PO DAILY #30 tab 04/23/20 Diltiazem Oral [Cardizem Oral] 60 mg PO TID #60 tablet 04/25/20 Allergies Allergy/AdvReac Type Severity Reaction Status Date / Time No Known Allergies Allergy Verified 12/14/16 13:33 Review of Systems ROS Statement: Those systems with pertinent positive or pertinent negative responses have been documented in the HPI. ROS Other: All systems not noted in ROS Statement are negative. Constitutional: Denies: fever, chills Respiratory: Denies: cough, dyspnea, hemoptysis Cardiovascular: Reports: chest pain, palpitations. Denies: orthopnea, edema, syncope Gastrointestinal: Denies: abdominal pain, vomiting, diarrhea Genitourinary: Denies: dysuria, hematuria Musculoskeletal: Denies: back pain Skin: Denies: rash Neurological: Denies: headache, weakness, numbness EKG Findings - EKG Results: EKG: interpreted by ERMD, normal axis, normal QRS EKG shows: tachycardia (Underlying rhythm appears to be atrial fibrillation with rate approximately 160 bpm) - Blocks, Palmer, Hypertrophy, ST Abn: Repolarization changes or abnormalities: ST or T wave suggestive of ischemia Past Medical History Past Medical History: Atrial Fibrillation, Cancer, Heart Failure, COPD, CVA/TIA, Deep Vein Thrombosis (DVT), Fibromyalgia, GERD/Reflux, Hyperlipidemia, Hypertension, Osteoarthritis (OA), Pneumonia, Sleep Apnea/CPAP/BIPAP, Vascular Disorder Additional Past Medical History / Comment(s): back pain , lung cancer-radiation opnly, HOME 02 2 LITERS [place], BLOOD CLOT AFTER SX, CVA LT SIDE AFFECTED SINCE RESOLVED, HIATAL HERNIA. SHINGLES 30 YEARS AGO, DOES'NT USE CPAP MACHINE.in past for short period of time took oral meds for dm-then taken off meds-pt stated not considered diabetic now but occ will check bs., macular degeneration.past broken rt leg and lt wrist. Raynauds. Pt currently has 3 fractured ribs on the right that she has "had for years and will not heal". History of Any Multi-Drug Resistant Organisms: MRSA Date of last positivie culture/infection: 09/25/16 MDRO Source:: BRONCH WASH Past Surgical History: Cholecystectomy, Heart Catheterization With Stent, Orthopedic Surgery Additional Past Surgical History / Comment(s): rt leg repaired after break-has pins, lt wrist-plate and screws. lung bx, stents tung groins. Past Anesthesia/Blood Transfusion Reactions: Family History of Problems w/ Anesthesia Additional Past Anesthesia/Blood Transfusion Reaction / Comment(s): daughter has diff waking after aa Date of Last Stent Placement:: unk Past Psychological History: Depression Smoking Status: Never smoker Past Alcohol Use History: Rare Past Drug Use History: None Reported - Past Family History Father Family Medical History: Congestive Heart Failure (CHF), COPD Additional Family Medical History / Comment(s): emphysema Mother Family Medical History: Cancer General Exam Limitations: no limitations General appearance: alert, anxious Head exam: Present: atraumatic, normocephalic Eye exam: Present: normal appearance. Absent: scleral icterus, conjunctival injection ENT exam: Present: normal oropharynx Neck exam: Present: normal inspection, full ROM Respiratory exam: Present: normal lung sounds bilaterally. Absent: respiratory distress, wheezes, rales, rhonchi Cardiovascular Exam: Present: irregular rhythm, normal heart sounds. Absent: systolic murmur, diastolic murmur, rubs, gallop GI/Abdominal exam: Present: soft. Absent: distended, tenderness, guarding, rebound, rigid, mass Extremities exam: Present: normal inspection, normal capillary refill. Absent: pedal edema, calf tenderness Back exam: Present: normal inspection Neurological exam: Present: alert Psychiatric exam: Present: anxious Skin exam: Present: warm, dry, intact, normal color. Absent: rash Course Vital Signs 04/19/20 04/19/20 04/19/20 00:13 00:17 00:57 Temperature 98.4 F Pulse Rate 151 H 141 H Pulse Rate [ 142 H Conservation Agent ] Respiratory 20 18 Rate Blood Pressure 161/98 123/80 O2 Sat by Pulse 96 96 Oximetry 04/19/20 04/19/20 04/19/20 02:14 06:13 09:03 Temperature Pulse Rate 82 72 72 Pulse Rate [ Conservation Agent ] Respiratory 18 18 Rate Blood Pressure 111/65 96/49 O2 Sat by Pulse 98 95 Oximetry 04/19/20 04/19/20 04/19/20 09:22 09:27 11:22 Temperature Pulse Rate 75 85 73 Pulse Rate [ Conservation Agent ] Respiratory 18 Rate Blood Pressure 132/66 O2 Sat by Pulse 97 Oximetry 04/19/20 04/19/20 04/19/20 11:42 11:51 12:53 Temperature Pulse Rate 73 80 82 Pulse Rate [ Conservation Agent ] Respiratory 18 Rate Blood Pressure 141/68 O2 Sat by Pulse 97 Oximetry Critical Care Time Critical Care Time: Yes (35 minutes) Disposition Clinical Impression: Atrial fibrillation with rapid ventricular response, Chest pain Disposition: ADMITTED IP TO THIS HOSP Condition: Fair
[2020-04-19] MEDS ORDERED: ACETAMINOPHEN TAB 325 MG TAB PO STA (02:08)
[2020-04-19] MEDS: SYMBICORT 80-4.5 MCG INHALER INHALATION SCH ×2 (08:59→22:05)
[2020-04-19] MEDS: ALBUTEROL NEBULIZED 1.25 MG/3 ML INHALATION SCH ×4 (08:59→22:05)
[2020-04-19] MEDS: IPRATROPIUM 0.5 MG/2.5 ML NEBU INHALATION SCH ×4 (08:59→22:05)
[2020-04-19] MEDS ORDERED: FUROSEMIDE 40 MG TAB PO SCH (09:00)
[2020-04-19] MEDS: DILTIAZEM ORAL 30 MG TAB PO SCH ×3 (11:19→21:31)
[2020-04-19] MEDS: ATORVASTATIN 80 MG TAB PO SCH (11:19)
[2020-04-19] MEDS: APIXABAN 2.5 MG TABLET PO SCH ×2 (11:19→21:31)
[2020-04-19] MEDS: PANTOPRAZOLE 40 MG TABLET PO SCH (11:22)
--- NOTE | 2020-04-19 12:14 | P.CRDCN ---
History of Present Illness Consult date: 04/19/20 History of present illness: CHIEF COMPLAINT: chest pain HISTORY OF PRESENT ILLNESS: This is a 79-year old female with a past medical history significant for coronary artery disease with multivessel stenting, peripheral arterial disease, lung cancer, hypertension, hyperlipidemia, and paroxysmal atrial fibrillation. Patient has a history of a HUE with cardioversion in 2017. Patient follows in the office with Dr. Lance. We have been asked to see the patient in consultation for atrial fibrillation with RVR. Patient examined this morning at the bedside in the emergency room. Patient states she presented to the hospital secondary to a burning sensation in her chest that woke her up out of a sleep. She denies any radiation of the burning sensation. Denies shortness of breath. She states her symptoms have resolved this morning. The patient was found to be in A. fib with RVR upon presentation to the hospital. She was started on a Cardizem drip. She converted to sinus rhythm and her Cardizem infusion was discontinued. The patient reports she was seen at the cardiology office on Thursday and was taken off her metoprolol secondary to feeling fatigued. DIAGNOSTICS: EKG reveals A. fib with RVR Chest xray increasing density in the mid to lower aspect of the right lung Laboratory data: WBC 9.7. Hemoglobin 14.0. Platelet count 271. Sodium 137. Potassium 3.6. BUN 21. Creatinine 0.84. Magnesium 1.9. Troponin negative 3. BNP 231. Current home cardiac medications include Norvasc 5 mg daily, Lipitor 40 mg BID, Lasix 40 mg daily, aspirin 81 mg daily, Eliquis 2.5 mg twice a day, irbesartan 150mg daily REVIEW OF SYSTEMS: At the time of my exam: CONSTITUTIONAL: Denies fever or chills. HEENT: Denies blurred vision, vision changes, or eye pain. Denies hemoptysis CARDIOVASCULAR: Denies chest pain, orthopnea, PND or palpitations RESPIRATORY: No shortness of breath. GASTROINTESTINAL: Denies abdominal pain. Denies nausea or vomiting. HEMATOLOGIC: Denies bleeding disorders. GENITOURINARY: Denies any blood in urine. SKIN: Denies pruitis. Denies rash. PHYSICAL EXAM: VITAL SIGNS: Reviewed. GENERAL: Well-developed in no acute distress. HEENT: Head is normocephalic. Pupils are equal, round. Sclerae anicteric. Mucous membranes of the mouth are moist. Neck supple. No JVD or thyromegaly LUNGS: Respirations even and unlabored. Lungs essentially clear to auscultation bilaterally. HEART: Regular rate and rhythm. S1 and S2 heard. ABDOMEN: Soft. Nondistended. Nontender. EXTREMITIES: Normal range of motion. No clubbing or cyanosis. Peripheral pulses intact. No lower extremity edema NEUROLOGIC: Awake and alert. Oriented x 3. ASSESSMENT: Atypical chest pain, troponin negative x 3 Paroxysmal atrial fibrillation with RVR, currently maintaining sinus mechanism History of coronary artery disease with previous multivessel PCI Peripheral arterial disease with previous peripheral stenting History of lung cancer Hypertension Hyperlipidemia History of HUE with cardioversion, 2017 PLAN: Resume home cardiac medications Continue Eliquis for anticoagulation Patient thought she had an echocardiogram performed at the cardiology office last week. However there are no reports available at this time. Will obtain 2-D echo to assess cardiac structure and function Will begin Cardizem 30mg TID. Continue to hold metoprolol. Further recommendations pending patient's course Nurse practitioner note has been reviewed by physician. Signing provider agrees with the documented findings, assessment, and plan of care. Past Medical History Past Medical History: Atrial Fibrillation, Cancer, Heart Failure, COPD, CVA/TIA, Deep Vein Thrombosis (DVT), Fibromyalgia, GERD/Reflux, Hyperlipidemia, Hypertension, Osteoarthritis (OA), Pneumonia, Sleep Apnea/CPAP/BIPAP, Vascular Disorder Additional Past Medical History / Comment(s): back pain , lung cancer-radiation opnly, HOME 02 2 L[place]ERS [place], BLOOD CLOT AFTER SX, CVA LT SIDE AFFECTED SINCE RESOLVED, HIATAL HERNIA. SHINGLES 30 YEARS AGO, DOES'NT USE CPAP MACHINE.in past for short period of time took oral meds for dm-then taken off meds-pt stated not considered diabetic now but occ will check bs., macular degeneration.past broken rt leg and lt wrist. Raynauds. Pt currently has 3 fractured ribs on the right that she has "had for years and will not heal". History of Any Multi-Drug Resistant Organisms: MRSA Date of last positivie culture/infection: 09/25/16 MDRO Source:: BRONCH WASH Past Surgical History: Cholecystectomy, Heart Catheterization With Stent, Orthopedic Surgery Additional Past Surgical History / Comment(s): rt leg repaired after break-has pins, lt wrist-plate and screws. lung bx, stents tung groins. Past Anesthesia/Blood Transfusion Reactions: Family History of Problems w/ Anesthesia Additional Past Anesthesia/Blood Transfusion Reaction / Comment(s): daughter has diff waking after aa Date of Last Stent Placement:: unk Past Psychological History: Depression Smoking Status: Never smoker Past Alcohol Use History: Rare Past Drug Use History: None Reported - Past Family History Father Family Medical History: Congestive Heart Failure (CHF), COPD Additional Family Medical History / Comment(s): emphysema Mother Family Medical History: Cancer Medications and Allergies Home Medications Medication Instructions Recorded Confirmed Type Cyclobenzaprine [Flexeril] 10 mg PO DIRECTED PRN 09/23/16 04/19/20 History Pantoprazole Sodium [Protonix] 40 mg PO QAM 09/23/16 04/19/20 History Apixaban [Eliquis] 2.5 mg PO BID tablet 10/02/16 04/19/20 Rx Aspirin EC [Ecotrin Low Dose] 81 mg PO HS 11/05/16 04/19/20 History Hydrocodone/Acetaminophen [[place] 1 tab PO Q4H PRN 11/05/16 04/19/20 History 10-325 Tablet] ALPRAZolam [Xanax] 0.25 mg PO DIRECTED PRN 04/19/20 04/19/20 History Acetaminophen Tab [Tylenol] 325 mg PO DAILY PRN 04/19/20 04/19/20 History Atorvastatin Calcium [Lipitor] 40 mg PO BID 04/19/20 04/19/20 History Dm/Acetaminophen/Doxylamine [Vicks 1 cap PO HS PRN 04/19/20 04/19/20 History Nyquil Liquicaps] Fluticasone/Umeclidin/Vilanter 1 puff INHALATION RT-DAILY 04/19/20 04/19/20 History [Trelegy Ellipta 100-62.5-25] Furosemide [Lasix] 40 mg PO DIRECTED 04/19/20 04/19/20 History Gabapentin [Neurontin] 300 mg PO TID PRN 04/19/20 04/19/20 History Irbesartan [Avapro] 150 mg PO DAILY 04/19/20 04/19/20 History Levalbuterol HCl [Xopenex] 1.25 mg INHALATION RT-Q8H PRN 04/19/20 04/19/20 History Prebiotic (Unknown Strength) 1 tab PO DAILY 04/19/20 04/19/20 History amLODIPine [Norvasc] 5 mg PO DAILY 04/19/20 04/19/20 History metFORMIN HCL [Glucophage] 500 mg PO DIRECTED 04/19/20 04/19/20 History Allergies Allergy/AdvReac Type Severity Reaction Status Date / Time No Known Allergies Allergy Verified 12/14/16 13:33 Physical Exam Vitals: Vital Signs Temp Pulse Pulse Resp BP Pulse Ox 04/19/20 11:51 80 04/19/20 11:42 73 04/19/20 11:22 73 18 132/66 97 04/19/20 09:27 85 04/19/20 09:22 75 04/19/20 09:03 72 04/19/20 06:13 72 18 96/49 95 04/19/20 02:14 82 18 111/65 98 04/19/20 00:57 141 H 18 123/80 96 04/19/20 00:17 142 H 04/19/20 00:13 98.4 F 151 H 20 161/98 96 Intake and Output 04/18/20 04/19/20 04/19/20 22:59 06:59 14:59 Other: Weight 55.792 kg Results 04/19/20 00:50 04/19/20 00:50 Cardiac Enzymes 04/19/20 04/19/20 04/19/20 Range/Units 00:50 00:50 04:52 AST 33 (14-36) U/L Troponin I <0.012 <0.012 (0.000-0.034) ng/mL 04/19/20 Range/Units 07:32 AST (14-36) U/L Troponin I 0.013 (0.000-0.034) ng/mL Coagulation 04/19/20 Range/Units 00:50 PT 10.4 (9.0-12.0) sec APTT 23.6 (22.0-30.0) sec CBC 04/19/20 Range/Units 00:50 WBC 9.7 (3.8-10.6) k/uL RBC 4.61 (3.80-5.40) m/uL Hgb 14.0 (11.4-16.0) gm/dL Hct 41.1 (34.0-46.0) % Plt Count 271 (150-450) k/uL Comprehensive Metabolic Panel 04/19/20 Range/Units 00:50 Sodium 137 (137-145) mmol/L Potassium 3.6 (3.5-5.1) mmol/L Chloride 98 (98-107) mmol/L Carbon Dioxide 28 (22-30) mmol/L BUN 21 H (7-17) mg/dL Creatinine 0.84 (0.52-1.04) mg/dL Glucose 160 H (74-99) mg/dL Calcium 10.2 (8.4-10.2) mg/dL AST 33 (14-36) U/L ALT 20 (4-34) U/L Alkaline Phosphatase 97 (38-126) U/L Total Protein 7.9 (6.3-8.2) g/dL Albumin 4.9 (3.5-5.0) g/dL Current Medications Generic Name Dose Route Start Last Admin Trade Name Freq PRN Reason Stop Dose Admin Hydrocodone Bitart/Acetaminophen 1 each 04/19/20 01:50 Hydrocodone/Apap 10-325mg 1 Each Tab PO TID PRN Pain Albuterol Sulfate 1.25 mg 04/19/20 08:00 04/19/20 11:41 Albuterol Nebulized 1.25 Mg/3 Ml INHALATION 1.25 mg RT-QID LETICIA Administration Apixaban 2.5 mg 04/19/20 09:00 04/19/20 11:19 Apixaban 2.5 Mg Tablet PO 2.5 mg BID LETICIA Administration Aspirin 81 mg 04/19/20 21:00 Aspirin 81 Mg PO HS [facility] Atorvastatin Calcium 80 mg 04/19/20 09:00 04/19/20 11:19 Atorvastatin 80 Mg Tab PO 80 mg DAILY LETICIA Administration Budesonide/Formoterol Fumarate 2 puff 04/19/20 08:00 04/19/20 08:59 Symbicort 80-4.5 Mcg Inhaler INHALATION 2 puff RT-BID LETICIA Administration Cholecalciferol 1,000 unit 04/19/20 17:30 Cholecalciferol 1,000 Unit Tab PO W/SUPPER [facility] Diltiazem HCl 30 mg 04/19/20 11:15 04/19/20 11:19 Diltiazem Oral 30 Mg Tab PO 30 mg TID LETICIA Administration Ipratropium Gordon 0.5 mg 04/19/20 08:00 04/19/20 11:41 Ipratropium 0.5 Mg/2.5 Ml Nebu INHALATION 0.5 mg RT-QID LETICIA Administration Lisinopril 2.5 mg 04/19/20 09:00 04/19/20 11:22 Lisinopril 2.5 Mg Tab PO 2.5 mg DAILY LETICIA Administration Melatonin 10 mg 04/19/20 21:00 Melatonin 5 Mg Tablet PO HS LETICIA Nitroglycerin 0.4 mg 04/19/20 01:47 Nitroglycerin Sl Tabs 0.4 Mg Tab SUBLINGUAL Q5M PRN Chest Pain Pantoprazole Sodium 40 mg 04/19/20 09:00 04/19/20 11:22 Pantoprazole 40 Mg Tablet PO 40 mg QAM LETICIA Administration Intake and Output 04/18/20 04/19/20 04/19/20 22:59 06:59 14:59 Other: Weight 55.792 kg 04/19/20 00:50 04/19/20 00:50
[2020-04-19] MEDS ORDERED: ALPRAZolam 0.25 MG TAB PO PRN (13:36)
--- NOTE | 2020-04-19 13:39 | P.HPIM ---
History of Present Illness This is a pleasant 79 years old female with multiple medical problems as below . sHe is patient of Dr. Allen. She presents because she woke up with burning chest pain associated with palpitation yesterday, when she woke up At 11:30 p.m. last night her chest pain was about 9/10, when she came emergency room it was 4/10 and currently she rated as 1/10. No dyspnea. However she has coughing coughing. She has chronic dyspnea related to her COPD but no wheezing orsignificant tachypnea as noted on examination. She is on 2 L oxygen at home. She is a patient of Dr. Justin as an outpatient. She denies any GI symptoms, no diarrhea, no nausea vomiting She denies smoking, alcohol or illicit drugs Patient says that she has history of lung cancer in the right lung lower lobe and she follow up with Dr. Patel for that she's status post radiotherapy but no chemotherapy. She supposed to get CAT scan of the chest with IV contrast on 03/29. However she is very happy to do it here. I think CAT scan of the chest is indicated in view of elevated d-dimer to rule out PE and also for evaluation of her right mid and lower lung lesion. I explained the risks for the patient including but not limited to the risk of ALLERGIC reaction and nephrotoxicity and she verbalized understanding and acceptance and she wants to do it Also patient feels anxious On admission patient heart rate was 151, currently heart rate is better controll ed on 70s Labs including CBC, INR, BMP, liver enzymes are unremarkable. Serial troponins are negative. Less than 0.012. D-dimer is 0.64 Chest x-ray showing increasing density in the mid to lower aspect of the right lung and radiologist recommended computed tomography scan for further evaluation In the emergency room patient was started on Cardizem drip.. REVIEWING THE RECORDS PATIENT HAD A CAT SCAN DONE ABOUT 3 MONTHS AGO ON 01/10 Showing new 8 x 4 mm scarlike opacity or spiculated nodule in the right midlung with follow-up chest CT is recommended. Abdominal ultrasound from 04/03/20 showed no distinct abnormality seen Bone scan from 12/27/19 showing new area of uptake within the superior right acetabulum, left posterior L5 to S1 and L4, evaluation for new metastatic disease should be performed. Mild uptake within the cervical spine and the 11 may be degenerative in nature Review of Systems CONSTITUTIONAL: No fever, no malaise, no fatigue. HEENT: No recent visual problems or hearing problems. Denied any sore throat. CARDIOVASCULAR: No orthopnea, PND, no palpitations, no syncope. PULMONARY: No shortness of breath, no cough, no hemoptysis. GASTROINTESTINAL: No diarrhea, no nausea, no vomiting, no abdominal pain. Normoactive bowel sounds. NEUROLOGICAL: No headaches, no weakness, no numbness. HEMATOLOGICAL: Denies any bleeding or petechiae. GENITOURINARY: Denies any burning micturition, frequency, or urgency. MUSCULOSKELETAL/RHEUMATOLOGICAL: Denies any joint pain, swelling, or any muscle pain. ENDOCRINE: Denies any polyuria or polydipsia. Past Medical History Past Medical History: Atrial Fibrillation, Cancer, Heart Failure, COPD, CVA/TIA, Deep Vein Thrombosis (DVT), Fibromyalgia, GERD/Reflux, Hyperlipidemia, Hypertension, Osteoarthritis (OA), Pneumonia, Sleep Apnea/CPAP/BIPAP, Vascular D isorder Additional Past Medical History / Comment(s): back pain , lung cancer-radiation opnly, HOME 02 2 LITERS N/C, BLOOD CLOT AFTER SX, CVA LT SIDE AFFECTED SINCE RESOLVED, HIATAL HERNIA. SHINGLES 30 YEARS AGO, DOES'NT USE CPAP MACHINE.in past for short period of time took oral meds for dm-then taken off meds-pt stated not considered diabetic now but occ will check bs., macular degeneration.past broken rt leg and lt wrist. Raynauds. Pt currently has 3 fractured ribs on the right that she has "had for years and will not heal". History of Any Multi-Drug Resistant Organisms: MRSA Date of last positivie culture/infection: 09/25/16 MDRO Source:: BRONCH WASH Past Surgical History: Cholecystectomy, Heart Catheterization With Stent, Orthopedic Surgery Additional Past Surgical History / Comment(s): rt leg repaired after break-has pins, lt wrist-plate and screws. lung bx, stents tung groins. Past Anesthesia/Blood Transfusion Reactions: Family History of Problems w/ Anesthesia Additional Past Anesthesia/Blood Transfusion Reaction / Comment(s): daughter has diff waking after aa Date of Last Stent Placement:: unk Past Psychological History: Depression Smoking Status: Never smoker Past Alcohol Use History: Rare Past Drug Use History: None Reported - Past Family History Father Family Medical History: Congestive Heart Failure (CHF), COPD Additional Family Medical History / Comment(s): emphysema Mother Family Medical History: Cancer Medications and Allergies Home Medications Medication Instructions Recorded Confirmed Type Cyclobenzaprine [Flexeril] 10 mg PO DIRECTED PRN 09/23/16 04/19/20 History Pantoprazole Sodium [Protonix] 40 mg PO QAM 09/23/16 04/19/20 History Apixaban [Eliquis] 2.5 mg PO BID tablet 10/02/16 04/19/20 Rx Aspirin EC [Ecotrin Low Dose] 81 mg PO HS 11/05/16 04/19/20 History Hydrocodone/Acetaminophen [[place] 1 tab PO Q4H PRN 11/05/16 04/19/20 History 10-325 Tablet] ALPRAZolam [Xanax] 0.25 mg PO DIRECTED PRN 04/19/20 04/19/20 History Acetaminophen Tab [Tylenol] 325 mg PO DAILY PRN 04/19/20 04/19/20 History Atorvastatin Calcium [Lipitor] 40 mg PO BID 04/19/20 04/19/20 History Dm/Acetaminophen/Doxylamine [Vicks 1 cap PO HS PRN 04/19/20 04/19/20 History Nyquil Liquicaps] Fluticasone/Umeclidin/Vilanter 1 puff INHALATION RT-DAILY 04/19/20 04/19/20 History [Trelegy Ellipta 100-62.5-25] Furosemide [Lasix] 40 mg PO DIRECTED 04/19/20 04/19/20 History Gabapentin [Neurontin] 300 mg PO TID PRN 04/19/20 04/19/20 History Irbesartan [Avapro] 150 mg PO DAILY 04/19/20 04/19/20 History Levalbuterol HCl [Xopenex] 1.25 mg INHALATION RT-Q8H PRN 04/19/20 04/19/20 History Prebiotic (Unknown Strength) 1 tab PO DAILY 04/19/20 04/19/20 History amLODIPine [Norvasc] 5 mg PO DAILY 04/19/20 04/19/20 History metFORMIN HCL [Glucophage] 500 mg PO DIRECTED 04/19/20 04/19/20 History Allergies Allergy/AdvReac Type Severity Reaction Status Date / Time No Known Allergies Allergy Verified 12/14/16 13:33 Physical Exam Vitals: Vital Signs Temp Pulse Pulse Resp BP Pulse Ox 04/19/20 11:22 73 18 132/66 97 04/19/20 09:27 85 04/19/20 09:22 75 04/19/20 09:03 72 04/19/20 06:13 72 18 96/49 95 04/19/20 02:14 82 18 111/65 98 04/19/20 00:57 141 H 18 123/80 96 04/19/20 00:17 142 H 04/19/20 00:13 98.4 F 151 H 20 161/98 96 Intake and Output 04/18/20 04/19/20 04/19/20 22:59 06:59 14:59 Other: Weight 55.792 kg -GENERAL: The patient is alert and oriented x3, not in any acute distress. Thin build HEENT: Pupils are round and equally reacting to light. EOMI. No scleral icterus. No conjunctival pallor. Normocephalic, atraumatic. No pharyngeal erythema. No thyromegaly. CARDIOVASCULAR: S1 and S2 present. No murmurs, rubs, or gallops. PULMONARY: Chest is clear to auscultation, no wheezing or crackles. ABDOMEN: Soft, nontender, nondistended, normoactive bowel sounds. No palpable organomegaly. MUSCULOSKELETAL: No joint swelling or deformity. EXTREMITIES: No cyanosis, clubbing, or pedal edema. NEUROLOGICAL: Gross neurological examination did not reveal any focal deficits. SKIN: No rashes. No petechiae Results CBC & Chem 7: 04/19/20 00:50 04/19/20 00:50 Labs: Abnormal Lab Results - Last 24 Hours (Table) 04/19/20 04/19/20 Range/Units 00:50 10:47 D-Dimer 0.64 H (<0.60) mg/L FEU BUN 21 H (7-17) mg/dL Glucose 160 H (74-99) mg/dL Assessment and Plan Assessment: -Atrial fibrillation with rapid ventricular rate, present on admission. Cardiology on the case, Continue with Cardizem drip for now. Patient is already on Eliquis. Check echocardiogram. Continue with gentle hydration for 24 hours -Elevated d-dimer, rule out PE . Rule out Covid especially she has coughing -right mid lung density, (8 x 4 mm scarlike opacity or spiculated nodule ) , CAT scan of the chest as recommended by radiologist for further evaluation -Possible bone metastasis. Recent bone scan from 12/27/19 showing new area of uptake within the superior right acetabulum, left posterior L5 to S1 and L4, evaluation for new metastatic disease should be performed.Consult oncology -Anxiety, Xanax as needed react check TSH Hypertension Hyperlipidemia Osteoarthritis Sleep apnea Chronic Back pain history of coronary artery disease History of lung cancer status post radiotherapy Chronic hypoxic respiratory failure on 2 L oxygen at home, with left hemiparesis History of COPD History of CVA/TIA History of DVT Fibromyalgia History of GERD History of depression, not an active issue DVT prophylaxis: Kati
--- NOTE | 2020-04-19 15:26 | CT ---
EXAMINATION TYPE: CT angio chest DATE OF EXAM: 04/19/2020 2:46 PM COMPARISON: CT chest January 11, 2020. Chest x-ray earlier today HISTORY: SOB, abnormal x-ray CT DLP: 212.5 mGycm Automated exposure control for dose reduction was used. CONTRAST: CTA scan of the thorax is performed with IV Contrast, patient injected with 80 mL of Isovue 370, pulm onary embolism protocol. MIP images are created and reviewed. FINDINGS: LUNGS: Background fairly moderate underlying emphysematous change redemonstrated. Persistent irregula r scar scar like opacity in the right lower lobe near axial image 88 not significantly changed from m ost recent prior CT near image 37 and 38 as there is linear extension to the pleural surface posterio rly and inferiorly likely accounting for x-ray abnormality. Persistent 8 x 6 mm right middle lobe lob ulated nodule axial image 74 when comparing coronal images. No new infiltrate. Mild linear scarring o r atelectasis posterior left lung base. No pneumothorax bilaterally. MEDIASTINUM: There is satisfactory enhancement of the pulmonary artery and its branches, there is no CT evidence for pulmonary embolism. There are no greater than 1 cm hilar or mediastinal lymph nodes. No cardiomegaly or pericardial effusion is seen. OTHER: Demineralization is present. IMPRESSION: No CT evidence for acute pulmonary embolism. Moderate emphysematous change without new ac [place] pulmonary process. CT follow-up in 6-12 months time is advised to reassess.
[2020-04-19 16:49] LABS: Glucose,Whole Blood 136 mg/dL (75-99)
--- NOTE | 2020-04-19 17:11 | P.CNPUL ---
History of Present Illness Consult date: 04/19/20 Requesting physician: Samara Pack Reason for consult: dyspnea, abnormal CXR/CT Chief complaint: Chest pain, shortness of breath History of present illness: This is a very pleasant 79-year-old female patient who has a history of atrial fibrillation anticoagulated with Eliquis, congestive heart failure, CVA/TIA, DVT, fibromyalgia, hyperlipidemia, hypertension, obstructive sleep apnea coronary artery disease with previous stent placement, stents to the bilateral lower extremities. She also has a history of lung cancer diagnosed in 2011 and she had been seen by Dr. Koch in the past. She did receive radiation treatment at that time. She is maintained on Trelegy and albuterol in the outp atient setting. She had been brought into the emergency room early this morning with complaints of chest pain which was substernal burning sensation with no aggravating or relieving factors. EKG revealed atrial fibrillation with rapid ventricular response with ST and T wave abnormalities in the inferior lateral leads. She was treated with aspirin and nitroglycerin. Chest x-ray reveals increasing density in the middle and lower aspect of the right lung. CT angiogram revealed fairly moderate underlying emphysematous changes. Persistent irregular scarlike opacity in the right lower lobe edges chronic compared to previous in December 2019. Persistent 8 x 6 mm right middle lobe lobulated nod ule. No new infiltrates. No evidence of acute pulmonary embolism. She is seen in consultation in the emergency room. She is presently awake and alert in no acute distress. Continue O2 saturations in the upper 90s on room air. She's afebrile. Hemodynamically static stable. Heart rate better controlled. White count 9.7. Hemoglobin 14.0. D-dimer 0.64. Sodium 137. Potassium 3.6. Creatinine 0.84. Troponins negative 3. ProBNP 231. She's been initiated on a Cardizem drip. Currently in sinus rhythm. Denies any worsening shortness of breath cough or congestion. No further chest discomfort. Of note, she had recently been taken off her metoprolol due to fatigue. Review of Systems REVIEW OF SYSTEMS: CONSTITUTIONAL: Denies any recent significant weight loss or weight gain. EYES: Denies change in vision. EARS, NOSE, MOUTH, THROAT: Denies headaches, denies sore throat. CARDIOVASCULAR: Positive for chest pain, palpitations no syncopal episodes. RESPIRATORY: Denies shortness of breath, cough, congestion or hemoptysis. GASTROINTESTINAL: Denies change in appetite, denies abdominal pain GENITOURINARY: Denies hematuria, denies infections. MUSKULOSKELETAL: Denies pain, denies swelling. INTEGUMENTARY: Denies rash, denies eczema. NEUROLOGICAL: Denies recent memory loss, no recent seizure activity. PSYCHIATRIC: Denies anxiety, denies depression. HEMATOLOGIC/LYMPHATIC: Denies anemia, denies enlarged lymph nodes. Past Medical History Past Medical History: Atrial Fibrillation, Cancer, Heart Failure, COPD, CVA/TIA, Deep Vein Thrombosis (DVT), Fibromyalgia, GERD/Reflux, Hyperlipidemia, Hypertension, Osteoarthritis (OA), Pneumonia, Sleep Apnea/CPAP/BIPAP, Vascular Disorder Additional Past Medical History / Comment(s): back pain , lung cancer-radiation opnly, HOME 02 2 LITERS N/C, BLOOD CLOT AFTER SX, CVA LT SIDE AFFECTED SINCE RESOLVED, HIATAL HERNIA. SHINGLES 30 YEARS AGO, DOES'NT USE CPAP MACHINE.in past for short period of time took oral meds for dm-then taken off meds-pt stated not considered diabetic now but occ will check bs., macular degeneration.past broken rt leg and lt wrist. Raynauds. Pt currently has 3 fractured ribs on the right that she has "had for years and will not heal". History of Any Multi-Drug Resistant Organisms: MRSA Date of last positivie culture/infection: 09/25/16 MDRO Source:: BRONCH WASH Past Surgical History: Cholecystectomy, Heart Catheterization With Stent, Orthopedic Surgery Additional Past Surgical History / Comment(s): rt leg repaired after break-has pins, lt wrist-plate and screws. lung bx, stents tung groins. Past Anesthesia/Blood Transfusion Reactions: Family History of Problems w/ Anesthesia Additional Past Anesthesia/Blood Transfusion Reaction / Comment(s): daughter has diff waking after aa Date of Last Stent Placement:: unk Past Psychological History: Depression Smoking Status: Never smoker Past Alcohol Use History: Rare Past Drug Use History: None Reported - Past Family History Father Family Medical History: Congestive Heart Failure (CHF), COPD Additional Family Medical History / Comment(s): emphysema Mother Family Medical History: Cancer Medications and Allergies Home Medications Medication Instructions Recorded Confirmed Type Cyclobenzaprine [Flexeril] 10 mg PO DIRECTED PRN 09/23/16 04/19/20 History Pantoprazole Sodium [Protonix] 40 mg PO QAM 09/23/16 04/19/20 History Apixaban [Eliquis] 2.5 mg PO BID tablet 10/02/16 04/19/20 Rx Aspirin EC [Ecotrin Low Dose] 81 mg PO HS 11/05/16 04/19/20 History Hydrocodone/Acetaminophen [[place] 1 tab PO Q4H PRN 11/05/16 04/19/20 History 10-325 Tablet] ALPRAZolam [Xanax] 0.25 mg PO DIRECTED PRN 04/19/20 04/19/20 History Acetaminophen Tab [Tylenol] 325 mg PO DAILY PRN 04/19/20 04/19/20 History Atorvastatin Calcium [Lipitor] 40 mg PO BID 04/19/20 04/19/20 History Dm/Acetaminophen/Doxylamine [Vicks 1 cap PO HS PRN 04/19/20 04/19/20 History Nyquil Liquicaps] Fluticasone/Umeclidin/Vilanter 1 puff INHALATION RT-DAILY 04/19/20 04/19/20 History [Trelegy Ellipta 100-62.5-25] Furosemide [Lasix] 40 mg PO DIRECTED 04/19/20 04/19/20 History Gabapentin [Neurontin] 300 mg PO TID PRN 04/19/20 04/19/20 History Irbesartan [Avapro] 150 mg PO DAILY 04/19/20 04/19/20 History Levalbuterol HCl [Xopenex] 1.25 mg INHALATION RT-Q8H PRN 04/19/20 04/19/20 History Prebiotic (Unknown Strength) 1 tab PO DAILY 04/19/20 04/19/20 History amLODIPine [Norvasc] 5 mg PO DAILY 04/19/20 04/19/20 History metFORMIN HCL [Glucophage] 500 mg PO DIRECTED 04/19/20 04/19/20 History Allergies Allergy/AdvReac Type Severity Reaction Status Date / Time No Known Allergies Allergy Verified 12/14/16 13:33 Physical Exam Vitals: Vital Signs Temp Pulse Pulse Resp BP BP Pulse Ox 04/19/20 16:50 78 04/19/20 13:20 98.3 F 83 16 142/68 98 04/19/20 12:53 82 18 141/68 97 04/19/20 11:51 80 04/19/20 11:42 73 04/19/20 11:22 73 18 132/66 97 04/19/20 09:27 85 04/19/20 09:22 75 04/19/20 09:03 72 04/19/20 06:13 72 18 96/49 95 04/19/20 02:14 82 18 111/65 98 04/19/20 00:57 141 H 18 123/80 96 04/19/20 00:17 142 H 04/19/20 00:13 98.4 F 151 H 20 161/98 96 Intake and Output 04/19/20 04/19/20 04/19/20 06:59 14:59 22:59 Other: # Voids 1 1 Weight 55.792 kg 55.792 kg GENERAL EXAM: Alert, very pleasant 79-year-old female patient, on room air, comfortable in no apparent distress. HEAD: Normocephalic. EYES: Normal reaction of pupils, equal size. NOSE: Clear with pink turbinates. THROAT: No erythema or exudates. NECK: No masses, no JVD. CHEST: No chest wall deformity. LUNGS: Equal air entry with no crackles, wheeze, rhonchi or dullness. CVS: S1 and S2 normal with no audible murmur, regular rhythm. ABDOMEN: No hepatosplenomegaly, normal bowel sounds, no guarding or rigidity. SPINE: No scoliosis or deformity SKIN: No rashes CENTRAL NERVOUS SYSTEM: No focal deficits, tone is normal in all 4 extremities. EXTREMITIES: There is no peripheral edema. No clubbing, no cyanosis. Peripheral pulses are intact. Results - Laboratory Findings CBC and BMP: 04/19/20 00:50 04/19/20 00:50 PT/INR, D-dimer PT 10.4 sec (9.0-12.0) 04/19/20 00:50 INR 1.0 (<1.2) 04/19/20 00:50 D-Dimer 0.64 mg/L FEU (<0.60) H 04/19/20 10:47 Abnormal lab findings: Abnormal Labs 04/19/20 04/19/20 04/19/20 00:50 10:47 16:47 D-Dimer 0.64 H BUN 21 H Glucose 160 H POC Glucose (mg/dL) 136 H - Diagnostic Findings Chest x-ray: image reviewed CT scan - chest: image reviewed Assessment and Plan Assessment: 1 Chest pain and a patient found to be in atrial fibrillation with a rapid ventricular response, troponins negative 2 Atrial fibrillation with rapid ventricular response, converted to sinus rhythm on Cardizem drip anticoagulated with Eliquis 3 History of coronary artery disease with previous stent placement 4 History of peripheral vascular disease with bilateral lower extremity stent placements 5 History of congestive heart failure 6 Hypertension 7 Hyperlipidemia 8 History of CVA/TIA 9 History of chronic obstructive pulmonary disease maintained oncology and albuterol in the outpatient setting 10 History of right-sided lung cancer status post radiation in 2011 11 Persistent irregular scarlike opacity in the right lower lobe and persistent 8 x 6 mm right middle lobe lobulated nodule unchanged compared to previous in December 2019. Plan: The patient was seen and evaluated by Dr. Koch Chest x-ray and CAT scan reviewed Continue Symbicort and albuterol Cardiology is on the case We'll continue to follow and make further recommendations based on her clinical status I, the cosigning physician, performed a history & physical examination of the patient. Lungs sounds are clear, diminished. Maintaining good O2 saturations in the 90s on room air. I discussed the assessment and plan of care with my nurse practitioner, Gail Roper. I attest to the above consultation as dictated by her. Time with Patient: Greater than 30
[2020-04-19] MEDS: CHOLECALCIFEROL 1,000 UNIT TAB PO SCH (18:59)
[2020-04-19] MEDS: SODIUM CHLORIDE 0.9% 1,000 ML IV SCH (18:59)
[2020-04-19 20:34] LABS: Glucose,Whole Blood 165 mg/dL (75-99)
[2020-04-19] MEDS: MELATONIN 5 MG TABLET PO SCH (21:31)
[2020-04-19] MEDS: ASPIRIN 81 MG PO SCH (21:31)
--- NOTE | 2020-04-20 00:20 | CONS ---
CONSULTATION DATE OF SERVICE: April 19, 2020. REASON FOR CONSULTATION: Lung carcinoma. CHIEF COMPLAINT: Rapid heartbeat. Jenni is a very pleasant 79 years old lady very well known to me. I saw her for the first time on 02/10/2020 in the office. The patient was initially diagnosed with early stage non-small cell lung carcinoma in 2011 in [place] for which she had SBRT radiation at that time. She has been followed conservatively after that without any recurrence. I saw her in the office back in January of 2020 because of right anterior rib pain which has been going on for over a year. She had a chest x-ray in November 2019, which revealed soft tissue density and evidence of displaced rib fracture. Then, she had a CT scan of the chest in December 2019, which revealed a new 8 mm right lower lobe nodule compared to another scan done in 2017. She also had a bone scan which revealed slight new activity at L5-S1 and right acetabulum at that time. After reviewing her imaging, it was felt that her rib pain is probably related to previous radiation treatment and was radionecrosis and also she is known to have rib fractures in the past and also in view of the small lung nodules measuring 8 mm, it was decided to conservatively approach the patient and repeat imaging in 3 months. However, the patient came into the hospital yesterday because of burning sensation in her chest that woke her up from sleep. She was found to have an atrial fibrillation with rapid ventricular response. Upon presentation to the emergency department, she was started on Cardizem drip and was converted to sinus rhythm and Cardizem drip was discontinued. She is currently anticoagulated. This morning the patient feels better. She denies any more palpitation or burning sensation in her chest. She continued to have right-sided rib pain. No dysphagia. No nausea or vomiting. Her bowels are working fine. No melena, hematochezia, hematuria, hemoptysis, hematemesis or epistaxis. She is eating well and no recent weight loss PAST MEDICAL HISTORY: She has paroxysmal atrial fibrillation, peripheral vascular disease and COPD and as stated above she has a history of early stage lung carcinoma in 2011. PAST SURGICAL HISTORY: She had a lung biopsy, pinning of the right leg and left arm and stent placement in both legs and cardiac stenting. HOME MEDICATION: Her home medications include Xanax 0.25 mg as needed, amlodipine 5 mg daily, aspirin 81 mg daily, Avapro 150 mg a day, Flexeril 10 mg as needed, Eliquis 2.5 mg twice a day, Lasix 40 mg daily, Lipitor 40 mg daily, metformin 500 mg b.i.d.; metoprolol 25 mg twice a day, however, this metoprolol was discontinued prior to her hospital admission; Neurontin 300 mg 3 times a day, Gladys as needed, Protonix 40 mg daily. FAMILY HISTORY: For malignancy her mother had cancer, unknown type. Her brother had leukemia, another brother had colon cancer, a sister had lung cancer. SOCIAL HISTORY: She used to smoke from 1957 until 2007. She is a social alcohol user. No recreational drugs. She is a . ALLERGIES: There is no known drug allergy. REVIEW OF SYSTEMS: As stated above in history of present illness, otherwise negative. PHYSICAL EXAMINATION: She is alert, oriented x3. She does not appear to be in distress. Well developed, well nourished. Her vital signs are: Temperature 98.3, afebrile, pulse 83, regular, respirations 16, blood pressure 142/68, pulse ox 98% on room air. HEENT: Normocephalic, atraumatic. No obvious icterus. NECK: Supple. No jugular venous distention. CHEST: Equal expansion bilaterally. LUNGS: Clear to auscultation and percussion. HEART: Regular rate and rhythm at this time. ABDOMEN: Soft. No obvious organomegaly or masses. Bowel sounds present. She does have tenderness at the lower right ribcage anteriorly. EXTREMITIES: Reveal no edema. SKIN: No significant bruises, ecchymosis, petechiae. LYMPHATICS: No peripherally enlarged cervical or supraclavicular node. MUSCULOSKELETAL: Moving all extremities appropriately. No percussion tenderness detected over spine or sternum. LABORATORY DATA: WBC are 9.7, hemoglobin 14.0, hematocrit 41.1, platelet 271. Sodium 137, potassium 3.6, chloride 98, CO2 is 28, BUN is 21, creatinine 0.84. LFTs are within normal limits. IMPRESSION: 1. Remote history of early stage non-small cell lung carcinoma in 2007 was treated was SBRT radiation therapy in [place]. 2. Recent imaging as stated above in history of present illness were suggestive of possible recurrence. However, upon reviewing imaging, there were no convincing evidence of definitive recurrence when I first evaluated her in January of 2020, and it was decided to repeat imaging in 3 months. 3. Atrial fibrillation with rapid ventricular response, managed by Cardiology. RECOMMENDATION: 1. From oncology standpoint, she already had a CT scan of the chest today. We will await final results. 2. The plan was to also repeat a bone scan next week in outpatient setting. We will order it while the patient in the hospital. 3. Based on results of repeat imaging, then further decision will be made. 4. From oncology standpoint, if the patient is felt to be stable, she could be discharged home and she will follow up with me in the outpatient setting for further management and recommendation. She already has an appointment with me scheduled for May 04, 2020. The above was discussed in detail with the patient. I have answered all her questions to her satisfaction. Thank you very much for asking me to participate in the care of this nice lady. MMNICOLEL / GAYLAN: [id number] /
[2020-04-20] MEDS: SODIUM CHLORIDE 0.9% 1,000 ML IV SCH (04:19)
[2020-04-20 06:18] LABS: Glucose,Whole Blood 154 mg/dL (75-99)
[2020-04-20] MEDS: SYMBICORT 80-4.5 MCG INHALER INHALATION SCH ×2 (08:09→20:29)
[2020-04-20] MEDS: ALBUTEROL NEBULIZED 1.25 MG/3 ML INHALATION SCH ×4 (08:09→20:29)
[2020-04-20] MEDS: IPRATROPIUM 0.5 MG/2.5 ML NEBU INHALATION SCH ×4 (08:10→20:29)
[2020-04-20] MEDS: PANTOPRAZOLE 40 MG TABLET PO SCH (08:42)
[2020-04-20] MEDS: ATORVASTATIN 80 MG TAB PO SCH (08:42)
[2020-04-20] MEDS: APIXABAN 2.5 MG TABLET PO SCH ×2 (08:42→21:22)
[2020-04-20] MEDS: DILTIAZEM ORAL 30 MG TAB PO SCH ×3 (08:42→21:22)
[2020-04-20] MEDS ORDERED: ASPIRIN 325 MG TAB PO SCH (09:00)
--- NOTE | 2020-04-20 10:10 | ECHOF ---
Referral Reason:afib MEASUREMENTS -------- HEIGHT: 162.6 cm WEIGHT: 55.3 kg BP: 109/54 IVSd: 1.0 cm (0.6 - 1.1) LVIDd: 3.5 cm (3.9 - 5.3) LVPWd: 0.7 cm (0.6 - 1.1) EDV(Teich): 49 ml IVSs: 1.5 cm LVIDs: 1.7 cm LVPWs: 1.5 cm %IVS Thck: 54 % ESV(Teich): 9 ml EF(Teich): 82 % %FS: 50 % SV(Teich): 41 ml LA Diam: 3.5 cm (2.7 - 3.8) RVIDd: 4.0 cm (< 3.3) Ao Diam: 3.1 cm (2.0 - 3.7) AV Cusp: 1.8 cm (1.5 - 2.6) EPSS: 0.8 cm MV E Keaton: 0.65 m/s MV DecT: 268 ms MV Dec Ni[place]rara: 2.4 m/s MV A Keaton: 0.93 m/s MV E/A Ratio: 0.70 MV PHT: 78 ms LVOT Vmax: 0.74 m/s LVOT maxP.18 mmHg TR Vmax: 2.86 m/s TR maxP.62 mmHg RAP: 5.00 mmHg RVSP: 37.62 mmHg MV EF SLOPE: 40.79 mm/s (70 - 150) MV EXCURSION: 19.60 mm (> 18.000) FINDINGS -------- Sinus rhythm. This was a technically difficult study with suboptimal views. The left ventricular size is normal. Left ventricular wall thickness is normal. There is normal g lobal left ventricular contractility. Overall left ventricular systolic function is normal with, an EF between 55 - 60 %. The right ventricle is moderately enlarged. The left atrial size is normal. The right atrium was not well visualized. 5.0mg of Lumason was utilized for enhancement of images There is mild aortic valve sclerosis. There is no evidence of aortic regurgitation. There is no e vidence of aortic stenosis. Mild mitral annular calcification present. No mitral regurgitation. Mild tricuspid regurgitation present. There is mild pulmonary hypertension. The right ventricular systolic pressure, as measured by Doppler, is 37.62mmHg. The pulmonic valve was not well visualized. There is no pulmonic regurgitation present. The aortic root size is normal. IVC Not well visulized. There is no pericardial effusion. CONCLUSIONS -------- 1. This was a technically difficult study with suboptimal views. 2. There is normal global left ventricular contractility. 3. Overall left ventricular systolic function is normal with, an EF between 55 - 60 %. 4. The right ventricle is moderately enlarged. 5. The left atrial size is normal. 6. There is mild aortic valve sclerosis. 7. Mild mitral annular calcification present. 8. Mild tricuspid regurgitation present. 9. There is mild pulmonary hypertension. 10. There is no pericardial effusion. 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
[2020-04-20 10:18] LABS: Calcium 9.6 mg/dL (8.4-10.2)
--- NOTE | 2020-04-20 10:23 | P.PN ---
Subjective Progress Note Date: 04/20/20 This is a pleasant 79-year-old female with history of persistent atrial fibrillation, anticoagulated with Eliquis, prior CVA/TIA, DVT, fibromyalgia, hyperlipidemia, hypertension, obstructive sleep apnea, coronary artery disease with prior stent placement, PVD with prior bilateral lower extremity stenting, history of lung cancer for which the patient received radiation treatment. Patient initially presented to the hospital with symptoms of chest pain, she was found to be in atrial fibrillation with a rapid ventricular response. She was seen in consultation yesterday by Dr. Martin. Remaining in normal sinus rhythm this morning. Denies any chest discomfort, but is still complaining of some persistent pain in her right lower rib, that worsens with movement. Blood pressure 117/56 with a heart rate in the 60s, 100% on 2 L of oxygen. [place] virus testing was negative. Echocardiogram with Doppler study was performed which revealed an ejection fraction of 55-60%. No laboratory data today. Objective - Vital Signs Vital signs: Vital Signs Temp 98 F 04/20/20 08:00 Pulse 62 04/20/20 08:00 Resp 20 04/20/20 08:00 BP 117/56 04/20/20 08:00 Pulse Ox 100 04/20/20 08:00 Intake & Output 04/19/20 04/20/20 04/20/20 18:59 06:59 18:59 Intake Total 222 120 480 Balance 222 120 480 Weight 55.792 kg 55.338 kg Intake: Oral 222 120 480 Other: Voiding Method Toilet # Voids 1 2 1 # Bowel Movements 0 - Exam PHYSICAL EXAMINATION: GENERAL: 79-year-old female in no acute distress at the time of my examination HEENT: Head is atraumatic, normocephalic. Pupils equal, round. Sclera anicteric. Conjunctiva are clear. Mucous membranes of the mouth are moist. Neck is supple. There is no elevated jugular venous pressure. No carotid bruit is heard. HEART EXAMINATION: Heart S1, S2 normal. No murmur or gallop heard. CHEST EXAMINATION: Lungs are clear to auscultation and precussion. No chest wall tenderness is noted on palpation or with deep breathing. ABDOMEN: Soft, nontender. Bowel sounds are heard. No organomegaly noted. EXTREMITIES: 2+ peripheral pulses with no evidence of peripheral edema and no calf tenderness noted. NEUROLOGIC [patient is awake, alert and oriented 3 . - Labs CBC & Chem 7: 04/19/20 00:50 04/19/20 00:50 Labs: Abnormal Lab Results - Last 24 Hours (Table) 04/19/20 04/19/20 04/19/20 Range/Units 10:47 16:47 20:33 D-Dimer 0.64 H (<0.60) mg/L FEU POC Glucose (mg/dL) 136 H 165 H (75-99) mg/dL 04/20/20 Range/Units 06:16 D-Dimer (<0.60) mg/L FEU POC Glucose (mg/dL) 154 H (75-99) mg/dL Assessment and Plan Plan: Assessment and plan #1 atypical chest pain, troponins negative, initial EKG showed atrial fibrillation with a rapid ventricular response #2 paroxysmal atrial fibrillation, currently in normal sinus rhythm, on Eliquis for anticoagulation #3 coronary artery disease with prior PCI #4 history of peripheral vascular disease with bilateral lower extremity stenting #5 hypertension #6 hyperlipidemia #7 history of CVA/TIA #8 history of right-sided lung cancer status post radiation #9 COPD Plan Echocardiogram with Doppler study revealed a normal left ventricular systolic function. From cardiology's perspective, we'll recommend to continue the patient on Eliquis 2.5 mg one tablet by mouth twice a day, baby aspirin, we will change her Cardizem over to a once daily dose. She may be able to be discharg ed home once cleared by primary. We will make her a follow-up appointment in the office post discharge. DNP note has been reviewed, I agree with a documented findings and plan of care. Patient was seen and examined.
[2020-04-20 10:27] LABS: Potassium 5.6 mmol/L (3.5-5.1)
[2020-04-20 12:12] LABS: Glucose,Whole Blood 157 mg/dL (75-99)
--- NOTE | 2020-04-20 13:37 | P.PN ---
Subjective Progress Note Date: 04/20/20 Principal diagnosis: Chest pain secondary to atrial fibrillation with rapid ventricular response This is a very pleasant 79-year-old female patient who has a history of atrial fibrillation anticoagulated with Eliquis, congestive heart failure, CVA/TIA, DVT, fibromyalgia, hyperlipidemia, hypertension, obstructive sleep apnea coronary artery disease with previous stent placement, stents to the bilateral lower extremities. She also has a history of lung cancer diagnosed in 2011 and she had been seen by Dr. Koch in the past. She did receive radiation treatment at that time. She is maintained on Trelegy and albuterol in the outpatient setting. She had been brought into the emergency room early this morning with complaints of chest pain which was substernal burning sensation with no aggravating or relieving factors. EKG revealed atrial fibrillation with rapid ventricular response with ST and T wave abnormalities in the inferior lateral leads. She was treated with aspirin and nitroglycerin. Chest x-ray reveals increasing density in the middle and lower aspect of the right lung. CT angiogram revealed fairly moderate underlying emphysematous changes. Persistent irregular scarlike opacity in the right lower lobe edges chronic compared to previous in December 2019. Persistent 8 x 6 mm right middle lobe lobulated nodule. No new infiltrates. No evidence of acute pulmonary embolism. She is seen in consultation in the emergency room. She is presently awake and alert in no acute distress. Continue O2 saturations in the upper 90s on room air. She's afebrile. Hemodynamically static stable. Heart rate better controlled. White count 9.7. Hemoglobin 14.0. D-dimer 0.64. Sodium 137. Potassium 3.6. Creatinine 0.84. Troponins negative 3. ProBNP 231. She's been initiated on a Cardizem drip. Currently in sinus rhythm. Denies any worsening shortness of breath cough or congestion. No further chest discomfort. Of note, she had recently been taken off her metoprolol due to fatigue. The patient is seen today 04/20/2020 in follow-up on the selective care unit. She is awake and alert in no acute distress. Currently resting quite comfortably in bed. No worsening shortness of breath, cough or congestion. No further chest discomfort. She is maintaining O2 saturations up to 100% on 2 L/m per nasal cannula. Her rate is currently controlled. Afebrile. She's been anticoagulated with Eliquis. Remains on Cardizem. Echocardiogram revealed preserved left ventricular systolic function with ejection fraction 55-60%. Sodium 133. Potassium 5.6. Creatinine 1.15. Objective - Vital Signs Vital signs: Vital Signs Temp 98.3 F 04/20/20 11:52 Pulse 62 04/20/20 11:52 Resp 20 04/20/20 11:52 BP 126/60 04/20/20 11:52 Pulse Ox 100 04/20/20 11:52 Intake & Output 04/19/20 04/20/20 04/20/20 18:59 06:59 18:59 Intake Total 222 120 480 Balance 222 120 480 Weight 55.792 kg 55.338 kg Intake: Oral 222 120 480 Other: Voiding Method Toilet # Voids 1 2 1 # Bowel Movements 0 - Exam GENERAL EXAM: Alert, very pleasant 79-year-old female patient, 2 L nasal cannula with O2 saturation 100%, comfortable in no apparent distress. HEAD: Normocephalic. EYES: Normal reaction of pupils, equal size. NOSE: Clear with pink turbinates. THROAT: No erythema or exudates. NECK: No masses, no JVD. CHEST: No chest wall deformity. LUNGS: Equal air entry with no crackles, wheeze, rhonchi or dullness. CVS: S1 and S2 normal with no audible murmur, regular rhythm. ABDOMEN: No hepatosplenomegaly, normal bowel sounds, no guarding or rigidity. SPINE: No scoliosis or deformity SKIN: No rashes CENTRAL NERVOUS SYSTEM: No focal deficits, tone is normal in all 4 extremities. EXTREMITIES: There is no peripheral edema. No clubbing, no cyanosis. Peripheral pulses are intact. - Labs CBC & Chem 7: 04/19/20 00:50 04/20/20 09:06 Labs: Abnormal Lab Results - Last 24 Hours (Table) 04/19/20 04/19/20 04/20/20 Range/Units 16:47 20:33 06:16 Sodium (137-145) mmol/L Potassium (3.5-5.1) mmol/L Chloride (98-107) mmol/L BUN (7-17) mg/dL Creatinine (0.52-1.04) mg/dL Glucose (74-99) mg/dL POC Glucose (mg/dL) 136 H 165 H 154 H (75-99) mg/dL Triglycerides (<150) mg/dL 04/20/20 04/20/20 Range/Units 09:06 12:11 Sodium 133 L (137-145) mmol/L Potassium 5.6 H (3.5-5.1) mmol/L Chloride 95 L (98-107) mmol/L BUN 33 H (7-17) mg/dL Creatinine 1.15 H (0.52-1.04) mg/dL Glucose 180 H (74-99) mg/dL POC Glucose (mg/dL) 157 H (75-99) mg/dL Triglycerides 200 H (<150) mg/dL Assessment and Plan Assessment: 1 Chest pain and a patient found to be in atrial fibrillation with a rapid ventricular response, troponins negative 2 Atrial fibrillation with rapid ventricular response, converted to sinus rhythm on Cardizem drip anticoagulated with Eliquis 3 History of coronary artery disease with previous stent placement 4 History of peripheral vascular disease with bilateral lower extremity stent placements 5 History of congestive heart failure 6 Hypertension 7 Hyperlipidemia 8 History of CVA/TIA 9 History of chronic obstructive pulmonary disease maintained oncology and albuterol in the outpatient setting 10 History of right-sided lung cancer status post radiation in 2011 11 Persistent irregular scarlike opacity in the right lower lobe and persistent 8 x 6 mm right middle lobe lobulated nodule unchanged compared to previous in December 2019. Plan: The patient was seen and evaluated by Dr. Koch She is cleared for discharge from the pulmonary standpoint Continue her Trelegy and albuterol in the outpatient setting I, the cosigning physician, performed a history & physical examination of the patient. Lungs sounds are clear, diminished. Maintaining good O2 saturations in the 90s on 2 L/m per nasal cannula. I discussed the assessment and plan of care with my nurse practitioner, Gail Roper. I attest to the above consultation as dictated by her.
--- NOTE | 2020-04-20 14:23 | NM ---
EXAMINATION TYPE: NM bone scan whole body DATE OF EXAM: 04/20/2020 COMPARISON: NONE HISTORY: Lung cancer Delayed whole-body scanning was performed following the injection of 24.1 mCi Tc 99m MDP. Images acq uired 5.5 hours post injection. FINDINGS: There is no scintigraphic evidence to suggest metastatic disease to the axial or appendicular skeleto n. Degenerative uptake is seen of the shoulders, sternoclavicular joints, wrists, bilateral hips and knees. Ethmoidal uptake is noted likely related to underlying sinusitis. IMPRESSION: No scintigraphic evidence to suggest malignancy at this time.
--- NOTE | 2020-04-20 14:31 | XR ---
EXAMINATION TYPE: XR ribs bilateral DATE OF EXAM: 04/20/2020 CLINICAL HISTORY: Pain, Fall Four views of the right sided ribs demonstrate fractures of right ribs 6, 7 and 8. No additional righ t-sided rib fractures are seen. Evaluation of the left-sided ribs fails to demonstrate evidence for a dditional fracture. Visualized lungs are clear. No evidence for pneumothorax. IMPRESSION: 1. Fractures of right ribs 6, 7 and 8.
[2020-04-20] MEDS ORDERED: SODIUM POLYSTYRENE SULFONATE 15 GM/60 ML BOTTLE PO STA ×2 (14:53→14:56)
[2020-04-20 16:55] LABS: Glucose,Whole Blood 134 mg/dL (75-99)
[2020-04-20] MEDS: CHOLECALCIFEROL 1,000 UNIT TAB PO SCH (16:55)
[2020-04-20 20:21] LABS: Glucose,Whole Blood 168 mg/dL (75-99)
[2020-04-20] MEDS: MELATONIN 5 MG TABLET PO SCH (21:22)
[2020-04-20] MEDS: ASPIRIN 81 MG PO SCH (21:22)
[2020-04-20] MEDS: HYDROcodone/APAP 7.5-325MG 1 EACH TAB PO PRN (22:14)
[2020-04-20] MEDS: LIDOCAINE 5% PATCH TOPICAL SCH (22:34)
--- NOTE | 2020-04-20 22:44 | P.PN ---
Subjective This is a pleasant 79 years old female with multiple medical problems as below . sHe is patient of Dr. Allen. She presents because she woke up with burning chest pain associated with palpitation yesterday, when she woke up At 11:30 p.m. last night her chest pain was about 9/10, when she came emergency room it was 4/10 and currently she rated as 1/10. No dyspnea. However she has coughing coughing. She has chronic dyspnea related to her COPD but no wheezing orsignificant tachypnea as noted on examination. She is on 2 L oxygen at home. She is a patient of Dr. Justin as an outpatient. She denies any GI symptoms, no diarrhea, no nausea vomiting She denies smoking, alcohol or illicit drugs Patient says that she has history of lung cancer in the right lung lower lobe and she follow up with Dr. Patel for that she's status post radiotherapy but no chemotherapy. She supposed to get CAT scan of the chest with IV contrast on 03/29. However she is very happy to do it here. I think CAT scan of the chest is indicated in view of elevated d-dimer to rule out PE and also for evaluation of her right mid and lower lung lesion. I explained the risks for the patient including but not limited to the risk of ALLERGIC reaction and nephrotoxicity and she verbalized understanding and acceptance and she wants to do it Also patient feels anxious On admission patient heart rate was 151, currently heart rate is better controlled on 70s Labs including CBC, INR, BMP, liver enzymes are unremarkable. Serial troponins are negative. Less than 0.012. D-dimer is 0.64 Chest x-ray showing increasing density in the mid to lower aspect of the right lung and radiologist recommended computed tomography scan for further evaluation In the emergency room patient was started on Cardizem drip.. REVIEWING THE RECORDS PATIENT HAD A CAT SCAN DONE ABOUT 3 MONTHS AGO ON 01/10 Showing new 8 x 4 mm scarlike opacity or spiculated nodule in the right midlung with follow-up chest CT is recommended. Abdominal ultrasound from 04/03/20 showed no distinct abnormality seen Bone scan from 12/27/19 showing new area of uptake within the superior right acetabulum, left posterior L5 to S1 and L4, evaluation for new metastatic disease should be performed. Mild uptake within the cervical spine and the 11 may be degenerative in nature 04/20/2020 Patient is still complaining of from right chest tenderness, rib x-ray showing right-sided rib fracture, patient denies history of recent trauma. Pain is not controlled, [place] dose was increased to 7.5 mg and lidocaine patches ended, Add incentive spirometry and vitamin D/calcium. This could be due to trauma and patient could not remember last for physical therapy evaluation Cartilage team recommended to continue with Cardizem once daily, Eliquis 2.5 mg and aspirin and they cleared the patient for discharge, as well as pulmonary service. The patient for discharge with a patrol and [place] Bone scan no significant evidence to suggest malignancy at this time. Oncology team also to the patient for discharge Review of systems CONSTITUTIONAL: No fever, no malaise, no fatigue. HEENT: No recent visual problems or hearing problems. Denied any sore throat. CARDIOVASCULAR: No orthopnea, PND, no palpitations, no syncope. PULMONARY: No shortness of breath, no cough, no hemoptysis. GASTROINTESTINAL: No diarrhea, no nausea, no vomiting, no abdominal pain. Normoactive bowel sounds. NEUROLOGICAL: No headaches, no weakness, no numbness. Active Medications Generic Name Dose Route Start Last Admin Trade Name Freq PRN Reason Stop Dose Admin Hydrocodone Bitart/Acetaminophen 1 each 04/20/20 22:10 04/20/20 22:14 Hydrocodone/Apap 7.5-325mg 1 Each Tab PO 1 each Q6H PRN Administration Pain Albuterol Sulfate 1.25 mg 04/19/20 08:00 04/20/20 20:29 Albuterol Nebulized 1.25 Mg/3 Ml INHALATION 1.25 mg RT-QID LETICIA Administration Apixaban 2.5 mg 04/19/20 09:00 04/20/20 21:22 Apixaban 2.5 Mg Tablet PO 2.5 mg BID LETICIA Administration Aspirin 81 mg 04/19/20 21:00 04/20/20 21:22 Aspirin 81 Mg PO 81 mg HS LETICIA Administration Atorvastatin Calcium 80 mg 04/19/20 09:00 04/20/20 08:42 Atorvastatin 80 Mg Tab PO 80 mg DAILY LETICIA Administration Budesonide/Formoterol Fumarate 2 puff 04/19/20 08:00 04/20/20 20:29 Symbicort 80-4.5 Mcg Inhaler INHALATION 2 puff RT-BID LETICIA Administration Cholecalciferol 1,000 unit 04/19/20 17:30 04/20/20 16:55 Cholecalciferol 1,000 Unit Tab PO 1,000 unit W/SUPPER LETICIA Administration Diltiazem HCl 30 mg 04/19/20 11:15 04/20/20 21:22 Diltiazem Oral 30 Mg Tab PO 30 mg TID LETICIA Administration Ipratropium [place] 0.5 mg 04/19/20 08:00 04/20/20 20:29 Ipratropium 0.5 Mg/2.5 Ml Nebu INHALATION 0.5 mg RT-QID LETICIA Administration Lidocaine 1 patch 04/20/20 22:30 04/20/20 22:34 Lidocaine 5% Patch TOPICAL 1 patch DAILY LETICIA Administration Lisinopril 2.5 mg 04/19/20 09:00 04/20/20 08:42 Lisinopril 2.5 Mg Tab PO 2.5 mg DAILY LETICIA Administration Melatonin 10 mg 04/19/20 21:00 04/20/20 21:22 Melatonin 5 Mg Tablet PO 10 mg HS [facility] Administration Nitroglycerin 0.4 mg 04/19/20 01:47 Nitroglycerin Sl Tabs 0.4 Mg Tab SUBLINGUAL Q5M PRN Chest Pain Pantoprazole Sodium 40 mg 04/19/20 09:00 04/20/20 08:42 Pantoprazole 40 Mg Tablet PO 40 mg QAM LETICIA Administration Objective - Vital Signs Vital signs: Vital Signs Temp 98.3 F 04/20/20 20:00 Pulse 64 04/20/20 20:46 Resp 18 04/20/20 20:00 BP 158/71 04/20/20 20:00 Pulse Ox 98 04/20/20 20:00 Intake & Output 04/20/20 04/20/20 04/21/20 06:59 18:59 06:59 Intake Total 120 960 Balance 120 960 Weight 55.338 kg Intake: Intake, IV Titration 0 Amount Sodium Chloride 0.9% 1, 0 000 ml @ 75 mls/hr IV . [id number] [facility] Rx#:[id number] Oral 120 960 Other: Voiding Method Toilet Toilet # Voids 2 0 # Bowel Movements 0 - Exam GENERAL: The patient is alert and oriented x3, not in any acute distress. Well developed, well nourished. HEENT: Pupils are round and equally reacting to light. EOMI. No scleral icterus. No conjunctival pallor. Normocephalic, atraumatic. No pharyngeal erythema. No thyromegaly. CARDIOVASCULAR: S1 and S2 present. No murmurs, rubs, or gallops. PULMONARY: Chest is clear to auscultation, no wheezing or crackles. Right chest wall tenderness ABDOMEN: Soft, nontender, nondistended, normoactive bowel sounds. No palpable organomegaly. MUSCULOSKELETAL: No joint swelling or deformity. EXTREMITIES: No cyanosis, clubbing, or pedal edema. NEUROLOGICAL: Gross neurological examination did not reveal any focal deficits. SKIN: No rashes. no petechiae. - Labs CBC & Chem 7: 04/19/20 00:50 04/20/20 09:06 Labs: Abnormal Lab Results - Last 24 Hours (Table) 04/20/20 04/20/20 04/20/20 Range/Units 06:16 09:06 12:11 Sodium 133 L (137-145) mmol/L Potassium 5.6 H (3.5-5.1) mmol/L Chloride 95 L (98-107) mmol/L BUN 33 H (7-17) mg/dL Creatinine 1.15 H (0.52-1.04) mg/dL Glucose 180 H (74-99) mg/dL POC Glucose (mg/dL) 154 H 157 H (75-99) mg/dL Triglycerides 200 H (<150) mg/dL 04/20/20 04/20/20 Range/Units 16:54 20:19 Sodium (137-145) mmol/L Potassium (3.5-5.1) mmol/L Chloride (98-107) mmol/L BUN (7-17) mg/dL Creatinine (0.52-1.04) mg/dL Glucose (74-99) mg/dL POC Glucose (mg/dL) 134 H 168 H (75-99) mg/dL Triglycerides (<150) mg/dL Assessment and Plan Assessment: -Atrial fibrillation with rapid ventricular rate, present on admission. Cardiology on the case, Continue with Cardizem daily. Patient is already on Eliquis. Continue with aspirin as per cardiology recommendation. TSH is normal -Elevated d-dimer, CTPA is negative for PE . Rule out Covid which is negative -right mid lung density, (8 x 4 mm scarlike opacity or spiculated nodule ) , CAT scan of the showing the same lesion. Bone scan is negative and oncology cleared the patient. Patient can follow up with Dr. Patel as an outpatient patient is calm today and improved, Xanax as needed react check TSH -Mild acute kidney injury with hyperkalemia, mostly due to diuretics. 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, with left hemiparesis History of COPD History of CVA/TIA History of DVT Fibromyalgia History of GERD History of depression, not an active issue DVT prophylaxis: Kati
--- NOTE | 2020-04-21 00:01 | P.PN ---
Subjective Progress Note Date: 04/20/20 Review Bone Scan negative for malignancy Objective - Vital Signs Vital signs: Vital Signs Temp 98.3 F 04/20/20 11:52 Pulse 62 04/20/20 11:52 Resp 20 04/20/20 11:52 BP 126/60 04/20/20 11:52 Pulse Ox 100 04/20/20 11:52 Intake & Output 04/19/20 04/20/20 04/20/20 18:59 06:59 18:59 Intake Total 222 120 480 Balance 222 120 480 Weight 55.792 kg 55.338 kg Intake: Oral 222 120 480 Other: Voiding Method Toilet # Voids 1 2 1 # Bowel Movements 0 - Constitutional General appearance: Present: cooperative - EENT Eyes: Present: PERRLA ENT: Present: NA/AT, normal oropharynx - Neck Neck: Present: normal ROM - Respiratory Respiratory: bilateral: CTA, diminished - Cardiovascular Rhythm: irregularly irregular - Gastrointestinal General gastrointestinal: Present: normal bowel sounds, soft - Integumentary Integumentary: Present: pale - Neurologic Neurologic Comment(s): non-focal - Musculoskeletal Musculoskeletal: Present: generalized weakness - Psychiatric Psychiatric: Present: A&O x's 3 (bone scan) - Labs CBC & Chem 7: 04/19/20 00:50 04/20/20 09:06 Labs: Abnormal Lab Results - Last 24 Hours (Table) 04/19/20 04/19/20 04/20/20 Range/Units 16:47 20:33 06:16 Sodium (137-145) mmol/L Potassium (3.5-5.1) mmol/L Chloride (98-107) mmol/L BUN (7-17) mg/dL Creatinine (0.52-1.04) mg/dL Glucose (74-99) mg/dL POC Glucose (mg/dL) 136 H 165 H 154 H (75-99) mg/dL Triglycerides (<150) mg/dL 04/20/20 Range/Units 09:06 Sodium 133 L (137-145) mmol/L Potassium 5.6 H (3.5-5.1) mmol/L Chloride 95 L (98-107) mmol/L BUN 33 H (7-17) mg/dL Creatinine 1.15 H (0.52-1.04) mg/dL Glucose 180 H (74-99) mg/dL POC Glucose (mg/dL) (75-99) mg/dL Triglycerides 200 H (<150) mg/dL Assessment and Plan Plan: Right Middle Lobe Mass: - 8x4mm Persistent Right Lung Opacity Remote History of Non-Small Cell Lung Cancer: - Now with possible Recurrence, although identified abnormalities on CTA are seen as stable without growth. Will discuss with Dr. Patel (Primary oncologist) may need to monitor serial imaging closely for growth or opportunity of tissue biopsy. - Bone Scan Negative - Follow-up with Dr. Patel as scheduled on 05/04 Atrial fibrillation with rapid ventricular rate - Cardiology Following Acute Kidney Injury Hyperkalemia: - Kayexalate per primary Acute on Chronic Respiratory Failure: - Wears Home Oxygen Ok to discharge from oncology standpoint
[2020-04-21 07:39] LABS: Glucose,Whole Blood 149 mg/dL (75-99)
[2020-04-21] MEDS ORDERED: ONDANSETRON 4 MG/2 ML VIAL IVP PRN (07:42)
[2020-04-21] MEDS: PANTOPRAZOLE 40 MG TABLET PO SCH (08:10)
[2020-04-21] MEDS: ATORVASTATIN 80 MG TAB PO SCH (08:10)
[2020-04-21] MEDS: APIXABAN 2.5 MG TABLET PO SCH ×2 (08:10→21:18)
[2020-04-21] MEDS: LIDOCAINE 5% PATCH TOPICAL SCH (08:14)
[2020-04-21] MEDS: HYDROcodone/APAP 7.5-325MG 1 EACH TAB PO PRN (08:18)
[2020-04-21] MEDS: CALCIUM CARB-VIT D 500MG-200UN 1 EACH TAB PO SCH ×2 (08:18→16:34)
[2020-04-21] MEDS: IPRATROPIUM 0.5 MG/2.5 ML NEBU INHALATION SCH ×4 (10:03→19:10)
[2020-04-21] MEDS: SYMBICORT 80-4.5 MCG INHALER INHALATION SCH ×2 (10:03→19:10)
[2020-04-21] MEDS: ALBUTEROL NEBULIZED 1.25 MG/3 ML INHALATION SCH ×4 (10:04→19:10)
[2020-04-21] MEDS: DILTIAZEM ORAL 30 MG TAB PO SCH ×3 (10:06→21:18)
[2020-04-21] MEDS ORDERED: TRIMETHOBENZAMIDE 300 MG CAP PO PRN (10:48)
[2020-04-21 11:31] LABS: Glucose,Whole Blood 156 mg/dL (75-99)
[2020-04-21 13:35] LABS: African American GFR (CKD) 80.7 (60.0-200.0); Anion Gap 8.6 mmol/L (4.00-12.00); Calcium 9.7 mg/dL (8.7-10.3); Carbon Dioxide 32.4 mmol/L (21.6-31.8); Non-African American GFR(CKD) 69.6 (60.0-200.0); Potassium 4.7 mmol/L (3.5-5.5)
[2020-04-21] MEDS: CHOLECALCIFEROL 1,000 UNIT TAB PO SCH (16:34)
[2020-04-21 17:09] LABS: Glucose,Whole Blood 124 mg/dL (75-99)
--- NOTE | 2020-04-21 20:32 | PN ---
PROGRESS NOTE DATE OF SERVICE: 04/21/2020 Jenni seen today as a followup. She feels a little bit nauseated today. However, overall she is doing better. No more palpitation or tightness of her chest. . CURRENT MEDICATION: Reviewed in her electronic medical record. PHYSICAL EXAMINATION: She is alert and x3. No acute distress. Well developed, well nourished. Her vital signs are temperature 97.7, pulse 73, respiration 16, blood pressure 152/66. HEENT: Normocephalic, atraumatic. NECK: Supple. CHEST: Equal expansion bilaterally. LUNGS: Clear to auscultation. HEART: Regular. ABDOMEN: Soft. No obvious organomegaly. EXTREMITIES: Reveal no edema. IMPRESSION: History of early stage non-small cell lung carcinoma involving the right lower lobe treated with SB RT, radiation therapy in [place] in 1999 and 2011. The patient did have a repeat CT scan and bone scan during this hospital admission and there was no evidence of disease progression. She has an old rib fractures involving 6, 7 and 8 as evident on rib x-rays. I did review the CAT scan findings and also her recent bone scan did not show any evidence of bone metastases. In regard to her right middle lobe lung nodule which is 8 mm, this has remained stable compared to previous CT scan. From oncology standpoint, no need for additional workup at this point in time. She will follow up with me as scheduled in the outpatient setting. MMODL / IJN: [id number] /
[2020-04-21 20:35] LABS: Glucose,Whole Blood 160 mg/dL (75-99)
[2020-04-21] MEDS: MELATONIN 5 MG TABLET PO SCH (21:18)
[2020-04-21] MEDS: ALPRAZolam 0.25 MG TAB PO PRN (21:21)
[2020-04-21] MEDS: ASPIRIN 81 MG PO SCH (21:23)
--- NOTE | 2020-04-22 02:04 | P.DS ---
Providers Date of admission: 04/19/20 01:48 Attending physician: Samara Pack Consults: 04/19/20 01:48 Consult Physician Routine Consulting Provider: Lazaro Lance Consult Reason/Comments: Atrial fibrillation with rapid ventricular rate Do you want consulting provider notified?: Yes 04/19/20 13:37 Consult Physician Routine Consulting Provider: Mark Sarmiento Consult Reason/Comments: Lung cancer with possible bone metastasis Do you want consulting provider notified?: Yes Primary care physician: [facility] Course: Note: Please consider this note progress note rather than discharge summary. This morning patient was doing well, she was admitted with Harini roper with RVR, paroxysmal and atypical chest pain. 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 Her hyperkalemia and creatinine came back to normal today. Pulmonary team also work on the case and helping with her breathing treatment of her for discharge She had some right-sided chest pain and tenderness with imaging showing open fracture, no history of trauma reported by the patient, it was treated symptomatically however this morning when she was trying to stand up she felt some lightheadedness and she threw up, postural vitals were checked and it was negative, better on 3 today patient felt better and he wanted to go home and patient was cleared by all consultants including cardiology and pulmonary team however as she was trying to get dressed up she felt nausea again and history was up so discharge was held and we will keep monitoring, however we will get the patient out of bed to chair when she feels better Discussed with the staff Physical exam GENERAL: The patient is alert and oriented x3, not in any acute distress. Thin built, well nourished. HEENT: Pupils are round and equally reacting to light. EOMI. No scleral icterus. No conjunctival pallor. Normocephalic, atraumatic. No pharyngeal erythema. No thyromegaly. CARDIOVASCULAR: S1 and S2 present. No murmurs, rubs, or gallops. -PULMONARY: Chest is clear to auscultation, no wheezing or crackles. Heart chest wall tenderness ABDOMEN: Soft, nontender, nondistended, normoactive bowel sounds. No palpable organomegaly. MUSCULOSKELETAL: No joint swelling or deformity. EXTREMITIES: No cyanosis, clubbing, or pedal edema. NEUROLOGICAL: Gross neurological examination did not reveal any focal deficits. SKIN: No rashes. no petechiae. Assessment and plan -Nausea and vomiting, postural. Most likely related to deconditioning and gas tric upset. Continue with antiacids and move out of bed to chair with symptomatic treatment and encourage hydration -Atrial fibrillation with rapid ventricular rate, present on admission. Cardiology on the case, Continue with Cardizem daily. Patient is already on Eliquis. Continue with aspirin as per cardiology recommendation. TSH is normal -Elevated d-dimer, CTPA is negative for PE . Rule out Covid which is negative -right mid lung density, (8 x 4 mm scarlike opacity or spiculated nodule ) , CAT scan of the showing the same lesion. Bone scan is negative and oncology cleared the patient. Patient can follow up with Dr. Patel as an outpatient patient is calm today and improved, Xanax as needed react check TSH -Mild acute kidney injury with hyperkalemia, mostly due to diuretics. 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, with left hemiparesis History of COPD History of CVA/TIA History of DVT Fibromyalgia History of GERD History of depression, not an active issue DVT prophylaxis: Eliquis Plan - Discharge Summary Discharge Rx Participant: Yes New Discharge Prescriptions: New RX: Diltiazem Oral [Cardizem*] 30 mg PO TID #90 tab RX: Lidocaine 5% Patch [Lidoderm 5% Patch] 1 patch TOPICAL DAILY #7 patch RX: Nitroglycerin Sl Tabs [Nitrostat] 0.4 mg SUBLINGUAL Q5M PRN #20 tab PRN Reason: Chest Pain RX: Calcium Carb-Vit D 500Mg-200Un [Oscal 500+D] 1 each PO BID-W/MEALS #60 tab RX: Cholecalciferol [Vitamin D3 (25 Mcg = 1000 Iu)] 1,000 unit PO W/SUPPER #30 tab RX: lisinopriL [Zestril] 2.5 mg PO DAILY #30 tab Hydrocodone/Acetaminophen [[place] 5-325] 1 tab PO Q12HR PRN 4 Days #8 tab PRN Reason: Severe Pain Continue RX: Cyclobenzaprine [Flexeril] 10 mg PO TID PRN PRN Reason: Muscle Spasm RX: Pantoprazole Sodium [Protonix] 40 mg PO QAM RX: Apixaban [Eliquis] 2.5 mg PO BID tablet RX: Aspirin EC [Ecotrin Low Dose] 81 mg PO HS RX: Levalbuterol HCl [Xopenex] 1.25 mg INHALATION RT-Q8H PRN PRN Reason: Shortness Of Breath Prebiotic (Unknown Strength) 1 tab PO DAILY RX: Dm/Acetaminophen/Doxylamine [Vicks Nyquil Liquicaps] 1 cap PO HS PRN PRN Reason: Cough RX: Fluticasone/Umeclidin/Vilanter [Trelegy Ellipta 100-62.5-25] 1 puff INHALATION RT-DAILY RX: Atorvastatin Calcium [Lipitor] 40 mg PO BID RX: Acetaminophen Tab [Tylenol] 325 mg PO DAILY PRN #25 tab PRN Reason: Pain Discontinued RX: Hydrocodone/Acetaminophen [[place] 10-325 Tablet] 1 tab PO Q4H PRN PRN Reason: Pain Gabapentin [Neurontin] 300 mg PO TID PRN PRN Reason: Pain Furosemide [Lasix] 40 mg PO DIRECTED RX: ALPRAZolam [Xanax] 0.25 mg PO HS PRN PRN Reason: Anxiety Irbesartan [Avapro] 150 mg PO DAILY amLODIPine [Norvasc] 5 mg PO DAILY RX: metFORMIN HCL [Glucophage] 500 mg PO DIRECTED Discharge Medication List RX: Cyclobenzaprine [Flexeril] 10 mg PO TID PRN 09/23/16 [History] RX: Pantoprazole Sodium [Protonix] 40 mg PO QAM 09/23/16 [History] RX: Apixaban [Eliquis] 2.5 mg PO BID tablet 10/02/16 [Rx] RX: Aspirin EC [Ecotrin Low Dose] 81 mg PO HS 11/05/16 [History] Prebiotic (Unknown Strength) 1 tab PO DAILY 04/19/20 [History] RX: Atorvastatin Calcium [Lipitor] 40 mg PO BID 04/19/20 [History] RX: Dm/Acetaminophen/Doxylamine [Vicks Nyquil Liquicaps] 1 cap PO HS PRN 04/19/20 [History] RX: Fluticasone/Umeclidin/Vilanter [Trelegy Ellipta 100-62.5-25] 1 puff INHALATION RT-DAILY 04/19/20 [History] RX: Levalbuterol HCl [Xopenex] 1.25 mg INHALATION RT-Q8H PRN 04/19/20 [History] Hydrocodone/Acetaminophen [[place] 5-325] 1 tab PO Q12HR PRN 4 Days #8 tab 04/21/20 [Rx] RX: Acetaminophen Tab [Tylenol] 325 mg PO DAILY PRN #25 tab 04/21/20 [Rx] RX: Calcium Carb-Vit D 500Mg-200Un [Oscal 500+D] 1 each PO BID-W/MEALS #60 tab 04/21/20 [Rx] RX: Cholecalciferol [Vitamin D3 (25 Mcg = 1000 Iu)] 1,000 unit PO W/SUPPER #30 tab 04/21/20 [Rx] RX: Diltiazem Oral [Cardizem*] 30 mg PO TID #90 tab 04/21/20 [Rx] RX: Lidocaine 5% Patch [Lidoderm 5% Patch] 1 patch TOPICAL DAILY #7 patch 04/21/20 [Rx] RX: Nitroglycerin Sl Tabs [Nitrostat] 0.4 mg SUBLINGUAL Q5M PRN #20 tab 04/21/20 [Rx] RX: lisinopriL [Zestril] 2.5 mg PO DAILY #30 tab 04/21/20 [Rx] Follow up Appointment(s)/Referral(s): [facility], [NON-STAFF] - Reese Allen DO [Primary Care Provider] - 1-2 days Lazaro Lance MD [STAFF PHYSICIAN] - 2 Weeks Jeanie Patel MD [STAFF PHYSICIAN] - 1 Week Patient Instructions/Handouts: A-fib (Atrial Fibrillation) (DC) Discharge Disposition: HOME WITH HOME HEALTH SERVICES
[2020-04-22 07:11] LABS: Glucose,Whole Blood 114 mg/dL (75-99)
[2020-04-22] MEDS: LIDOCAINE 5% PATCH TOPICAL SCH (07:55)
[2020-04-22] MEDS: CALCIUM CARB-VIT D 500MG-200UN 1 EACH TAB PO SCH ×2 (07:57→17:10)
[2020-04-22] MEDS: DILTIAZEM ORAL 30 MG TAB PO SCH ×3 (07:57→21:31)
[2020-04-22] MEDS: ATORVASTATIN 80 MG TAB PO SCH (07:57)
[2020-04-22] MEDS: APIXABAN 2.5 MG TABLET PO SCH ×2 (07:58→21:31)
[2020-04-22] MEDS: PANTOPRAZOLE 40 MG TABLET PO SCH (07:58)
[2020-04-22] MEDS: SYMBICORT 80-4.5 MCG INHALER INHALATION SCH ×2 (08:01→19:52)
[2020-04-22] MEDS: ALBUTEROL NEBULIZED 1.25 MG/3 ML INHALATION SCH ×4 (08:01→19:52)
[2020-04-22] MEDS: IPRATROPIUM 0.5 MG/2.5 ML NEBU INHALATION SCH ×4 (08:01→19:53)
[2020-04-22 09:51] LABS: African American GFR (CKD) 94.8 (60.0-200.0); Anion Gap 6.1 mmol/L (4.00-12.00); BUN/Creat Ratio 21.43 Ratio (12.00-20.00); Calcium 9.5 mg/dL (8.7-10.3); Carbon Dioxide 26.9 mmol/L (21.6-31.8); Non-African American GFR(CKD) 81.8 (60.0-200.0); Potassium 4.5 mmol/L (3.5-5.5)
[2020-04-22 11:21] LABS: Glucose,Whole Blood 120 mg/dL (75-99)
[2020-04-22] MEDS: HYDROcodone/APAP 7.5-325MG 1 EACH TAB PO PRN (13:55)
[2020-04-22 16:49] LABS: Glucose,Whole Blood 136 mg/dL (75-99)
[2020-04-22] MEDS: CHOLECALCIFEROL 1,000 UNIT TAB PO SCH (17:10)
[2020-04-22 20:58] LABS: Glucose,Whole Blood 161 mg/dL (75-99)
--- NOTE | 2020-04-22 21:20 | P.PN ---
Subjective This is a pleasant 79 years old female with multiple medical problems as below . sHe is patient of Dr. Allen. She presents because she woke up with burning chest pain associated with palpitation yesterday, when she woke up At 11:30 p.m. last night her chest pain was about 9/10, when she came emergency room it was 4/10 and currently she rated as 1/10. No dyspnea. However she has coughing coughing. She has chronic dyspnea related to her COPD but no wheezing orsignificant tachypnea as noted on examination. She is on 2 L oxygen at home. She is a patient of Dr. Justin as an outpatient. She denies any GI symptoms, no diarrhea, no nausea vomiting She denies smoking, alcohol or illicit drugs Patient says that she has history of lung cancer in the right lung lower lobe and she follow up with Dr. Patel for that she's status post radiotherapy but no chemotherapy. She supposed to get CAT scan of the chest with IV contrast on 03/29. However she is very happy to do it here. I think CAT scan of the chest is indicated in view of elevated d-dimer to rule out PE and also for evaluation of her right mid and lower lung lesion. I explained the risks for the patient including but not limited to the risk of ALLERGIC reaction and nephrotoxicity and she verbalized understanding and acceptance and she wants to do it Also patient feels anxious On admission patient heart rate was 151, currently heart rate is better controlled on 70s Labs including CBC, INR, BMP, liver enzymes are unremarkable. Serial troponins are negative. Less than 0.012. D-dimer is 0.64 Chest x-ray showing increasing density in the mid to lower aspect of the right lung and radiologist recommended computed tomography scan for further evaluation In the emergency room patient was started on Cardizem drip.. REVIEWING THE RECORDS PATIENT HAD A CAT SCAN DONE ABOUT 3 MONTHS AGO ON 01/10 Showing new 8 x 4 mm scarlike opacity or spiculated nodule in the right midlung with follow-up chest CT is recommended. Abdominal ultrasound from 04/03/20 showed no distinct abnormality seen Bone scan from 12/27/19 showing new area of uptake within the superior right acetabulum, left posterior L5 to S1 and L4, evaluation for new metastatic disease should be performed. Mild uptake within the cervical spine and the 11 may be degenerative in nature 04/20/2020 Patient is still complaining of from right chest tenderness, rib x-ray showing right-sided rib fracture, patient denies history of recent trauma. Pain is not controlled, [place] dose was increased to 7.5 mg and lidocaine patches ended, Add incentive spirometry and vitamin D/calcium. This could be due to trauma and patient could not remember last for physical therapy evaluation Cartilage team recommended to continue with Cardizem once daily, Eliquis 2.5 mg and aspirin and they cleared the patient for discharge, as well as pulmonary service. The patient for discharge with a patrol and [place] Bone scan no significant evidence to suggest malignancy at this time. Oncology team also to the patient for discharge 04/22/2020 This is a pleasant 79 years old female who was originally admitted for atypical chest pain on the right side and paroxysmal A. fib with RVR, heart rate was initially controlled with Cardizem drip, switched later to oral Cardizem 30 mg every 8 hours. Eliquis was started and patient is tolerating that well Also patient with right lower lung density, CTA of the chest show stable lesion, bone scan ordered by oncology team was unremarkable Patient is breathing quietly now and she was cleared for discharge by all consultants including business analytics director, head waiter and oncologist At the site of right chest tenderness, rib x-ray revealed rib fracture although patient denies history of trauma Patient was about to be discharged yesterday when she felt lightheadedness on standing up and nauseated with some vomiting so discharge was held, orthostatic vitals were negative and if the fluid was provided, today she feels better, she is getting out of bed to chair, she is getting shower Patient will benefit from physical therapy by tomorrow ensure is provided Objective - Vital Signs Vital signs: Vital Signs Temp 97.9 F 04/22/20 14:17 Pulse 76 04/22/20 16:38 Resp 16 04/22/20 16:15 BP 177/68 04/22/20 14:17 Pulse Ox 100 04/22/20 14:17 Intake & Output 04/21/20 04/22/20 04/22/20 18:59 06:59 18:59 Intake Total 400 1466 Balance 400 1466 Weight 55.8 kg Intake: Oral 400 1466 Other: Voiding Method Toilet Toilet Toilet # Voids 2 1 1 - Exam GENERAL: The patient is alert and oriented x3, not in any acute distress. Well developed, well nourished. HEENT: Pupils are round and equally reacting to light. EOMI. No scleral icterus. No conjunctival pallor. Normocephalic, atraumatic. No pharyngeal erythema. No thyromegaly. CARDIOVASCULAR: S1 and S2 present. No murmurs, rubs, or gallops. PULMONARY: Chest is clear to auscultation, no wheezing or crackles. Right chest wall tenderness ABDOMEN: Soft, nontender, nondistended, normoactive bowel sounds. No palpable organomegaly. MUSCULOSKELETAL: No joint swelling or deformity. EXTREMITIES: No cyanosis, clubbing, or pedal edema. NEUROLOGICAL: Gross neurological examination did not reveal any focal deficits. SKIN: No rashes. no petechiae. - Labs CBC & Chem 7: 04/19/20 00:50 04/22/20 06:29 Labs: Abnormal Lab Results - Last 24 Hours (Table) 04/21/20 04/22/20 04/22/20 Range/Units 20:32 06:29 07:10 BUN/Creatinine Ratio 21.43 H (12.00-20.00) Ratio POC Glucose (mg/dL) 160 H 114 H (75-99) mg/dL 04/22/20 04/22/20 Range/Units 11:20 16:47 BUN/Creatinine Ratio (12.00-20.00) Ratio POC Glucose (mg/dL) 120 H 136 H (75-99) mg/dL Assessment and Plan Assessment: -Atrial fibrillation with rapid ventricular rate, present on admission. Cardiology on the case, Continue with Cardizem daily. Patient is already on Eliquis. Continue with aspirin as per cardiology recommendation. TSH is normal -Elevated d-dimer, CTPA is negative for PE . Rule out Covid which is negative -right mid lung density, (8 x 4 mm scarlike opacity or spiculated nodule ) , CAT scan of the showing the same lesion. Bone scan is negative and oncology cleared the patient. Patient can follow up with Dr. Patel as an outpatient patient is calm today and improved, Xanax as needed react check TSH -Mild acute kidney injury with hyperkalemia, mostly due to diuretics. 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, with left hemiparesis History of COPD History of CVA/TIA History of DVT Fibromyalgia History of GERD History of depression, not an active issue DVT prophylaxis: Kati randolph will follow up with the patient
[2020-04-22] MEDS: MELATONIN 5 MG TABLET PO SCH (21:31)
[2020-04-22] MEDS: ASPIRIN 81 MG PO SCH (21:31)
[2020-04-23 07:06] LABS: Glucose,Whole Blood 139 mg/dL (75-99)
[2020-04-23] MEDS: CALCIUM CARB-VIT D 500MG-200UN 1 EACH TAB PO SCH (07:50)
[2020-04-23] MEDS: PANTOPRAZOLE 40 MG TABLET PO SCH (07:50)
[2020-04-23] MEDS: ALPRAZolam 0.25 MG TAB PO PRN (07:50)
[2020-04-23] MEDS: DILTIAZEM ORAL 30 MG TAB PO SCH (07:50)
[2020-04-23] MEDS: APIXABAN 2.5 MG TABLET PO SCH (07:50)
[2020-04-23] MEDS: LIDOCAINE 5% PATCH TOPICAL SCH (07:52)
[2020-04-23] MEDS: ATORVASTATIN 80 MG TAB PO SCH (07:58)
[2020-04-23 08:02] VITALS: BP 158/64; TEMP 97.9
[2020-04-23 08:11] LABS: African American GFR (CKD) >90 (>60 ml/min/1.73 sqM); Anion Gap 7 mmol/L; Blood Urea Nitrogen 21 mg/dL (7-17); Calcium 9.5 mg/dL (8.4-10.2); Carbon Dioxide 29 mmol/L (22-30); Chloride 99 mmol/L (98-107); Glucose 140 mg/dL (74-99); Non-African American GFR(CKD) 83 (>60 ml/min/1.73 sqM); Sodium 135 mmol/L (137-145)
[2020-04-23 08:15] LABS: Potassium 4.5 mmol/L (3.5-5.1)
[2020-04-23 09:05] VITALS: RESP 14
[2020-04-23] MEDS: IPRATROPIUM 0.5 MG/2.5 ML NEBU INHALATION SCH ×2 (11:05→11:06)
[2020-04-23] MEDS: ALBUTEROL NEBULIZED 1.25 MG/3 ML INHALATION SCH ×2 (11:05→11:06)
[2020-04-23] MEDS: SYMBICORT 80-4.5 MCG INHALER INHALATION SCH (11:06)
[2020-04-23 11:17] VITALS: PULSE 77
[2020-04-23 11:42] LABS: Glucose,Whole Blood 154 mg/dL (75-99)
--- NOTE | 2020-04-25 06:10 | DS ---
DISCHARGE SUMMARY DATE OF ADMISSION: 04/19/2020 DATE OF DISCHARGE: 04/23/2020 FINAL DIAGNOSES: 1. Atrial fibrillation with a rapid ventricular rate. 2. Pulmonary embolism ruled out. 3. Right midlung density 8 x 4 mm with a negative bone scan will be followed up by Dr. Patel as an outpatient. 4. Acute kidney injury likely prerenal from diuresis. 5. Chronic obstructive pulmonary disease in an ex-smoker. 6. Chronic fibromyalgia. 7. Gastroesophageal reflux disease. 8. Essential hypertension. 9. Hyperlipidemia. 10.Primary osteoarthritis. 11.Chronic nicotine dependence, on home oxygen 2 L. 12.Hiatal hernia. 13.Degenerative joint disease. 14.Raynaud's. 15.Chronically fractured 3 ribs on the right side that has not healed for years. 16.Coronary artery disease with stent. 17.Depression, not otherwise specified. HOSPITAL COURSE: The patient presented to the ER, some burning in the chest, palpitations, found to be in atrial fibrillation with rapid ventricular rate. She went back into sinus rhythm. A 2-D echocardiogram showed the EF of 55% to 60%. Right ventricle appeared to be moderately enlarged. Chest CTA negative for PE. Moderate emphysematous changes. Persistent 8 x 6 mm right middle lobe loculated nodule. Nuclear bone scan was negative. Rib x-ray showed chronic rib fractures. CONSULTATIONS: 1. Dr. Patel from Oncology. 2. [facility]. PHYSICAL EXAMINATION: On examination, temperature 97.9, pulse 63, respirations 16, blood pressure 158/64, pulse ox 96% on room air. LUNGS: Decreased breath sounds. CARDIOVASCULAR: Heart sounds, first and second sounds normal. PSYCH: AO x3. DISCHARGE MEDICATIONS: 1. Flexeril 10 mg p.o. t.i.d. p.r.n. 2. Protonix 40 mg a day. 3. Eliquis 2.5 mg b.i.d. 4. Aspirin 81 mg at bedtime. 5. Lipitor 40 mg daily. 6. Trelegy Ellipta 100/62.5/25 one puff daily. 7. Xopenex 1.25 mg inhalation q.8 p.r.n. 8. Prebiotic 1 tablet daily. 9. [place] 500 with D 1 tablet b.i.d. 10.Vitamin D3, 1000 units with supper. 11.Cardizem 30 mg t.i.d. 12.[place] 5 one tablet q.12 p.r.n. 13.Lidoderm 5% patch topical. 14.Nitrostat 0.4 sublingual q.5 p.r.n. 15.Zestril 2.5 mg p.o. daily. 16.Paxil 10 mg p.o. daily. DISCONTINUED MEDICATIONS: [place], Neurontin, Xanax, Avapro, Norvasc, Glucophage. Follow up with Dr. Allen on April 24, 2020; Dr. Lance, May 07, 2020; Dr. Patel in 1 week. MMODL / IJN: [id number] /
--- NOTE | 2020-04-25 06:31 | CDI ---
Documentation Clarification Form Date: 04/25/20 From: Charlette Townsend Phone: If you have a question about this query, please contact Keyonna Bergman, Culinary Arts Teacher at [phone] between 8am and 5pm. Admit Date: 04/19/20 Discharge Date: 04/23/20 Patient Name: OXANA DELA CRUZ Visit Number: [id number] ATTENTION: The Clinical Documentation Specialists (CDI) and [facility] Coding Staff appreciate your assistance in clarifying documentation. Please respond to the clarification below the line at the bottom and electronically sign. The CDI & [facility] Coding staff will review the response and follow-up if needed. Please note: Queries are made part of the Legal Health Record. If you have any questions, please contact the author of this message via ITS. Dear Dr. Jj Rubi, CHF is documented in the ED note, H&P, consults and progress notes. History/Risk Factors: PAF, late effect of CVA w hemiplegia-left, VERNELL, DM type II w PVD, COPD, HLD, OLEG, hyperkalemia Clinical Indicators: Chest pain and palpitations. VS/Pulse OX: T-98.4, P-141, R-20, BP-161/98, O2 sat-96 BNP: 231 Echocardiogram Results: Overall left ventricular systolic function is normal with, an EF between 55 - 60 %. Chest X Ray: Increasing density in the mid to lower aspect of the right lung. Consider CT for further evaluation. Treatment: Lasix 40 mg In your professional opinion, can you please clarify the type of chronic CHF if known? Systolic Heart Failure Diastolic Heart Failure Systolic & Diastolic Heart Failure Unable to Determine Other, please specify Chronic congestive heart failure from diastolic dysfunction EF 55-60% MTDD
--- NOTE | 2020-04-25 06:44 | CDI ---
Documentation Clarification Form Date: 04/25/20 From: Charlette Townsend Phone: If you have a question about this query, please contact Keyonna Bergman, Mutton Puncher at [phone] between 8am and 5pm. Admit Date: 04/19/20 Discharge Date: 04/23/20 Patient Name: OXANA DELA CRUZ Visit Number: [id number] ATTENTION: The Clinical Documentation Specialists (CDI) and [facility] Coding Staff appreciate your assistance in clarifying documentation. Please respond to the clarification below the line at the bottom and electronically sign. The CDI & [facility] Coding staff will review the response and follow-up if needed. Please note: Queries are made part of the Legal Health Record. If you have any questions, please contact the author of this message via ITS. Dear Dr. Markell Koch, Conflicting documentation has been found in the medical record: H&P, PNs 04/20 & 04/22 and the DS states chronic hypoxic respiratory failure on 2 L oxygen at home. PN 04/[address] Patel states acute on chronic respiratory failure wears oxygen. History/Risk Factors: PAF, late effect of CVA w hemiplegia-left, VERNELL, DM type II w PVD, COPD, HLD, OLEG, hyperkalemia Clinical Indicators: VS/Pulse OX: T-98.4, P-141, R-20, BP-161/98, O2 sat-96 (95 lowest O2 sat) Treatment: Oxygen at 2 L - the same as at home In your opinion, what is the most clinically appropriate diagnosis for this patient? Chronic hypoxic respiratory failure Acute on chronic respiratory failure, specify type Other explanation of clinical findings Unable to determine (no explanation for clinical findings) MTDD
== END 2020-04-23 12:55 | disposition home health service (06) | DRG 309 ==
LOC: EC 00:06 → 3SCARD 01:48 → 4SSUR 04-20 22:42
PROVIDERS: ADMIT Hospitalist; ATTEND Hospitalist
DX: I48.0 Paroxysmal atrial fibrillation (principal); J96.11 Chronic respiratory failure with hypoxia; N17.9 Acute kidney failure, unspecified; I69.354 Hemiplegia and hemiparesis following cerebral infarction affecting left non-dominant side; I50.32 Chronic diastolic (congestive) heart failure; E11.51 Type 2 diabetes mellitus with diabetic peripheral angiopathy without gangrene; I11.0 Hypertensive heart disease with heart failure; J44.9 Chronic obstructive pulmonary disease, unspecified; Z20.828 Contact with and (suspected) exposure to other viral communicable diseases; Z99.81 Dependence on supplemental oxygen; R07.89 Other chest pain; E87.5 Hyperkalemia; M79.7 Fibromyalgia; E78.5 Hyperlipidemia, unspecified; G47.33 Obstructive sleep apnea (adult) (pediatric); K44.9 Diaphragmatic hernia without obstruction or gangrene; K21.9 Gastro-esophageal reflux disease without esophagitis; G89.29 Other chronic pain; M54.9 Dorsalgia, unspecified; I25.10 Atherosclerotic heart disease of native coronary artery without angina pectoris; I73.00 Raynaud's syndrome without gangrene; F32.9 Major depressive disorder, single episode, unspecified; F41.9 Anxiety disorder, unspecified; H35.30 Unspecified macular degeneration; S22.41XD Multiple fractures of ribs, right side, subsequent encounter for fracture with routine healing; M19.91 Primary osteoarthritis, unspecified site; Z79.01 Long term (current) use of anticoagulants; Z79.82 Long term (current) use of aspirin; Z79.51 Long term (current) use of inhaled steroids; Z79.84 Long term (current) use of oral hypoglycemic drugs; Z79.899 Other long term (current) drug therapy; Z86.718 Personal history of other venous thrombosis and embolism; Z87.01 Personal history of pneumonia (recurrent); Z86.19 Personal history of other infectious and parasitic diseases; Z86.14 Personal history of Methicillin resistant Staphylococcus aureus infection; Z90.49 Acquired absence of other specified parts of digestive tract; Z95.5 Presence of coronary angioplasty implant and graft; Z87.81 Personal history of (healed) traumatic fracture; Z98.890 Other specified postprocedural states; Z95.820 Peripheral vascular angioplasty status with implants and grafts; Z85.118 Personal history of other malignant neoplasm of bronchus and lung; Z87.891 Personal history of nicotine dependence; Z92.3 Personal history of irradiation; Z82.49 Family history of ischemic heart disease and other diseases of the circulatory system; Z82.5 Family history of asthma and other chronic lower respiratory diseases; Z80.1 Family history of malignant neoplasm of trachea, bronchus and lung; Z80.0 Family history of malignant neoplasm of digestive organs; Z80.6 Family history of leukemia
CPT/HCPCS: 36415; 71045; 71110; 71275; 78306; 80048; 80053; 80061; 83735; 83880; 84443; 84484; 85025; 85379; 85610; 85730; 87635; 93005; 93306; 94640; 96365; 96366; 96375; 96376; 99285

== ENCOUNTER 2020-04-24 23:04 | Emergency (ER) | payer MEDICARE, OTHER ==
[2020-04-24 23:11] VITALS: RESP 18; TEMP 97.9
--- NOTE | 2020-04-24 23:35 | ED ---
Chest Pain HPI - General Chief Complaint: Chest Pain Stated Complaint: Chest Discomfort Time Seen by Provider: 04/24/20 23:13 Source: patient Mode of arrival: wheelchair Limitations: no limitations - History of Present Illness Initial Comments: This patient is an 79-year-old woman who presents with a recurrence of symptoms that had initially developed on April 19, for which she was seen here and found to have atrial fibrillation with rapid ventricular rate. Patient states that she was lying in bed watching television approximately 2 hours ago when she noticed the onset of substernal burning type chest pain and palpitations accompanied by dyspnea. She states is his same symptoms she had the previous episode. The patient had been discharged yesterday with Cardizem, 3 times a day. She states she had not gotten to her third dose of the medication yet tonight. No other changes that she had noted. MD Complaint: chest pain Onset/Timin -: hour(s) Onset: during rest Pain Location: substernal Pain Radiation: none Severity: moderate Quality: other Consistency: constant (Burning) Improves With: nothing Worsens With: nothing Anginal Symptoms: dyspnea Treatments Prior to Arrival: none - Related Data Home Medications Medication Instructions Recorded Confirmed Cyclobenzaprine [Flexeril] 10 mg PO TID PRN 09/23/16 04/20/20 Pantoprazole Sodium [Protonix] 40 mg PO QAM 09/23/16 04/19/20 Aspirin EC [Ecotrin Low Dose] 81 mg PO HS 11/05/16 04/19/20 Atorvastatin Calcium [Lipitor] 40 mg PO BID 04/19/20 04/19/20 Dm/Acetaminophen/Doxylamine [Vicks 1 cap PO HS PRN 04/19/20 04/19/20 Nyquil Liquicaps] Fluticasone/Umeclidin/Vilanter 1 puff INHALATION RT-DAILY 04/19/20 04/19/20 [Trelegy Ellipta 100-62.5-25] Levalbuterol HCl [Xopenex] 1.25 mg INHALATION RT-Q8H PRN 04/19/20 04/19/20 Prebiotic (Unknown Strength) 1 tab PO DAILY 04/19/20 04/19/20 Previous Rx's Medication Instructions Recorded Apixaban [Eliquis] 2.5 mg PO BID tablet 10/02/16 Acetaminophen Tab [Tylenol] 325 mg PO DAILY PRN #25 tab 04/21/20 Calcium Carb-Vit D 500Mg-200Un 1 each PO BID-W/MEALS #60 tab 04/21/20 [Oscal 500+D] Cholecalciferol [Vitamin D3 (25 1,000 unit PO W/SUPPER #30 tab 04/21/20 Mcg = 1000 Iu)] Diltiazem Oral [Cardizem*] 30 mg PO TID #90 tab 04/21/20 Hydrocodone/Acetaminophen [[place] 1 tab PO Q12HR PRN 4 Days #8 tab 04/21/20 5-325] Lidocaine 5% Patch [Lidoderm 5% 1 patch TOPICAL DAILY #7 patch 04/21/20 Patch] Nitroglycerin Sl Tabs [Nitrostat] 0.4 mg SUBLINGUAL Q5M PRN #20 tab 04/21/20 lisinopriL [Zestril] 2.5 mg PO DAILY #30 tab 04/21/20 PARoxetine HCL [Paxil] 10 mg PO DAILY #30 tab 04/23/20 Diltiazem Oral [Cardizem Oral] 60 mg PO TID #60 tablet 04/25/20 Allergies Allergy/AdvReac Type Severity Reaction Status Date / Time No Known Allergies Allergy Verified 12/14/16 13:33 Review of Systems ROS Statement: Those systems with pertinent positive or pertinent negative responses have been documented in the HPI. ROS Other: All systems not noted in ROS Statement are negative. Constitutional: Denies: fever, chills, weakness Respiratory: Reports: dyspnea. Denies: cough, wheezes Cardiovascular: Reports: chest pain, palpitations. Denies: orthopnea, edema, syncope Gastrointestinal: Denies: abdominal pain, nausea, vomiting, diarrhea Genitourinary: Denies: dysuria, hematuria Musculoskeletal: Denies: back pain Skin: Denies: rash Neurological: Denies: headache, weakness, numbness EKG Findings - EKG Comments: EKG Findings:: Underlying rhythm is a narrow complex tachycardia with rates approximate 136 bpm, occasional PVC noted. - EKG Results: EKG: interpreted by ERMD, normal axis, normal QRS - Blocks, [place], Hypertrophy, ST Abn: Repolarization changes or abnormalities: nonspecific abnormality, ST segment, and/or T wave Past Medical History Past Medical History: Atrial Fibrillation, Cancer, Heart Failure, COPD, CVA/TIA, Deep Vein Thrombosis (DVT), Fibromyalgia, GERD/Reflux, Hyperlipidemia, Hypertension, Osteoarthritis (OA), Pneumonia, Sleep Apnea/CPAP/BIPAP, Vascular Disorder Additional Past Medical History / Comment(s): back pain , lung cancer-radiation opnly, HOME 02 2 LITERS N/C, BLOOD CLOT AFTER SX, CVA LT SIDE AFFECTED SINCE RESOLVED, HIATAL HERNIA. SHINGLES 30 YEARS AGO, DOES'NT USE CPAP MACHINE.in past for short period of time took oral meds for dm-then taken off meds-pt stated not considered diabetic now but occ will check bs., macular degeneration.past broken rt leg and lt wrist. Raynauds. Pt currently has 3 fractured ribs on the right that she has "had for years and will not heal". History of Any Multi-Drug Resistant Organisms: MRSA Date of last positivie culture/infection: 09/25/16 MDRO Source:: BRONCH WASH Past Surgical History: Cholecystectomy, Heart Catheterization With Stent, Orthopedic Surgery Additional Past Surgical History / Comment(s): rt leg repaired after break-has pins, lt wrist-plate and screws. lung bx, stents tung groins. Past Anesthesia/Blood Transfusion Reactions: Family History of Problems w/ Anesthesia Additional Past Anesthesia/Blood Transfusion Reaction / Comment(s): daughter has diff waking after aa Date of Last Stent Placement:: unk Past Psychological History: Depression Smoking Status: Never smoker Past Alcohol Use History: Rare Past Drug Use History: None Reported - Past Family History Father Family Medical History: Congestive Heart Failure (CHF), COPD Additional Family Medical History / Comment(s): emphysema Mother Family Medical History: Cancer General Exam Limitations: no limitations General appearance: alert, in no apparent distress Head exam: Present: atraumatic, normocephalic Eye exam: Present: normal appearance. Absent: scleral icterus, conjunctival injection ENT exam: Present: normal oropharynx Neck exam: Present: normal inspection, full ROM Respiratory exam: Present: normal lung sounds bilaterally. Absent: respiratory distress, wheezes, rales, rhonchi, stridor Cardiovascular Exam: Present: normal rhythm, tachycardia (Rate approximately 136 bpm at my exam), normal heart sounds. Absent: systolic murmur, diastolic murmur, rubs, gallop GI/Abdominal exam: Present: soft. Absent: distended, tenderness, guarding, rebound, rigid, mass Extremities exam: Present: normal inspection, normal capillary refill. Absent: pedal edema, calf tenderness Back exam: Present: normal inspection. Absent: CVA tenderness (R), CVA tenderness (L) Neurological exam: Present: alert Skin exam: Present: warm, dry, intact, normal color. Absent: rash Course Vital Signs 04/24/20 04/25/20 23:08 00:56 Temperature 97.9 F Pulse Rate 138 H 71 Respiratory 18 18 Rate Blood Pressure 184/113 152/72 O2 Sat by Pulse 99 99 Oximetry Chest Pain MDM - MDM The patient did convert after a brief interval on the Cardizem to sinus rhythm. She is not having any symptoms. I discussed admitting for serial cardiac enzymes, the patient does state that she would like to go home. Given that the Cardizem achieved cardioversion, will have her discuss with her application security engineer possibly increasing the dose, or it may just be that the patient required her third daily dose sooner. I did provide a small number of Cardizem 60 mg by prescription which she could take should application security engineer recommended increasing dose. Discussed appropriate follow-up and return parameters. Disposition Clinical Impression: Atrial fibrillation with rapid ventricular response Disposition: HOME SELF-CARE Condition: Good Instructions (If sedation given, give patient instructions): A-fib (Atrial Fibrillation) (DC) Prescriptions: Diltiazem Oral [Cardizem Oral] 60 mg PO TID #60 tablet Is patient prescribed a controlled substance at d/c from ED?: No Referrals: Reese Allen DO [Primary Care Provider] - 1-2 days
[2020-04-24] MEDS ORDERED: DILTIAZEM DRIP BOLUS FROM BAG 1 MG SOLN IV ONE (23:40)
[2020-04-24] MEDS ORDERED: DILTIAZEM 125 MG in SODIUM CHLORIDE 0.9% 100 ML IV SCH (23:45)
[2020-04-24] MEDS ORDERED: LORazepam 2 MG/ML INJ IV STA (23:47)
--- NOTE | 2020-04-24 23:52 | XR ---
EXAMINATION TYPE: XR chest 1V portable DATE OF EXAM: 04/24/2020 COMPARISON: 04/19/2020 HISTORY: Dysrhythmia TECHNIQUE: FINDINGS: Heart is normal. Lungs are clear. There is no hilar masses. There is no pleural effusion. T horacic aorta is atheromatous. There are chest leads. There is old right-sided rib fracture. There ar e calcified granulomata at the right pulmonary hilum. IMPRESSION: No active cardiopulmonary disease. Old granulomatous disease. No change.
[2020-04-25 00:01] LABS: Basophils # (A) 0.1 k/uL (0-0.2); Basophils % (A) 1 %; Eosinophils # (A) 0.3 k/uL (0-0.7); Eosinophils % (A) 4 %; HCT 40.3 % (34.0-46.0); HGB 12.6 gm/dL (11.4-16.0); Lymphocytes # (A) 2.7 k/uL (1.0-4.8); Lymphocytes % (A) 32 %; MCH 28.5 pg (25.0-35.0); MCHC 31.3 g/dL (31.0-37.0); Mean Platelet Volume 8.2; Monocytes # (A) 0.5 k/uL (0-1.0); Monocytes % (A) 6 %; Neutrophils # (A) 4.7 k/uL (1.3-7.7); Neutrophils % (A) 55 %; Platelet Count 209 k/uL (150-450); RBC 4.43 m/uL (3.80-5.40); RDW 13.2 % (11.5-15.5); WBC 8.4 k/uL (3.8-10.6)
[2020-04-25 00:10] LABS: Partial Thromboplastin Time 24.1 sec (22.0-30.0); Prothrombin Time 9.9 sec (9.0-12.0)
[2020-04-25 00:11] LABS: Albumin 4.4 g/dL (3.5-5.0); Calcium 9.2 mg/dL (8.4-10.2); Total Bilirubin 0.8 mg/dL (0.2-1.3); Total Protein 7.4 g/dL (6.3-8.2)
[2020-04-25 00:15] LABS: Potassium 5.7 mmol/L (3.5-5.1)
[2020-04-25 00:57] VITALS: BP 152/72; PULSE 71
[2020-04-25] MEDS ORDERED: DILTIAZEM ORAL 30 MG TAB PO STA (01:12)
== END 2020-04-25 02:06 | disposition home or self-care (01) ==
LOC: EC 23:04
DX: I48.20 Chronic atrial fibrillation, unspecified (principal); R00.0 Tachycardia, unspecified; J44.9 Chronic obstructive pulmonary disease, unspecified; I50.9 Heart failure, unspecified; I11.0 Hypertensive heart disease with heart failure; M19.90 Unspecified osteoarthritis, unspecified site; K21.9 Gastro-esophageal reflux disease without esophagitis; E78.5 Hyperlipidemia, unspecified; G47.33 Obstructive sleep apnea (adult) (pediatric); Z79.82 Long term (current) use of aspirin; Z79.51 Long term (current) use of inhaled steroids; Z79.899 Other long term (current) drug therapy; Z85.118 Personal history of other malignant neoplasm of bronchus and lung; Z92.3 Personal history of irradiation; Z90.49 Acquired absence of other specified parts of digestive tract; Z86.14 Personal history of Methicillin resistant Staphylococcus aureus infection; Z95.5 Presence of coronary angioplasty implant and graft; Z86.73 Personal history of transient ischemic attack (TIA), and cerebral infarction without residual deficits
CPT/HCPCS: 99285; 96365; 96366; 96375 ×2; 36415; 93005; 80053; 83735; 84484; 85025; 85610; 85730; 71045; J2060

== ENCOUNTER → 2020-07-09 | Outpatient (CLI) | payer MEDICARE, OTHER ==
--- NOTE | 2020-07-09 11:40 | BD ---
EXAMINATION TYPE: Axial Bone Density DATE OF EXAM: 07/09/2020 COMPARISON: 02/04/2013 CLINICAL HISTORY: 80-year-old female postmenopausal screening Height: 5 FT 3 1/2 IN Weight: 119 FRAX RISK QUESTIONS: Alcohol (3 or more units per day): NO Family History (Parent hip fracture): NO Glucocorticoids (More than 3mos): NO (Ex: prednisone, prednisolone, methylprednisolone, dexamethasone, and hydrocortisone). History of Fracture in Adulthood: YES Secondary Osteoporosis: 1. Type 1 Diabetes: NO 2. Hyperthyroidism: NO 3. Menopause before 45: NO 4. Malnutrition: NO 5. Chronic liver disease: NO Rheumatoid Arthritis: NO Current Tobacco Use: NO RISK FACTORS HISTORY OF: History of Wrist Fracture: LEFT WRIST When: 2007 Surgery to Spine/Hip(right/left)/Wrist (right/left): LEFT WRIST When: 2007 Family History of Osteoporosis: NO Active: NO Diet low in dairy products/other sources of calcium: NO Postmenopausal woman: AGE 51 Take estrogen and/or progesterone medications: NONE Lost more than 2 inches in height since high school: YES Poor Health: YES MEDICATIONS: Prednisone or other steroids: How Long: Thyroid Medications: Which medication: How Long: Osteoporosis Medications: Which medication: How Long: Additional Medications: DIGOXIN, ELOQUIS, VASOTEC, AMLODIPINE, NITRO, LIPITOR, NEURONTIN, HYDROCODON E, LIDOCAINE, PAXIL, PROTONIX, VIT D3, ASPIRIN, METFORMIN, TRELEGY, LEUBUTEROL.ALBUTEROL, Additional History: LUNG CANCER AND RADIATION EXAM MEASUREMENTS: Bone mineral densitometry was performed using the [employer]. Bone mineral density as measured about the Lumbar spine is: ----- L1-L4(G/cm2): 1.237 T Score Values are as follows: ----- L2: 0.3 ----- L3: 0.8 ----- L4: 0.7 ----- L1-L4: 0.5 Bone mineral density has: INCREASED 6.6 % since study of: 2012 Bone mineral density about the R hip (g/cm2): 0.845 Bone mineral density about the L hip (g/cm2): 0.790 T Score values are as follows: -----R Neck: -1.4 -----L Neck: -1.8 -----R Total: -1.8 -----L Total: -1.5 Bone mineral density has: DECREASED -9.0 % since study of: 2013 IMPRESSION: Osteopenia (T Score between -2.5 and -1). There is slightly increased risk of fracture and the patient may be considered for treatment. Re-Screen 2-5 years. NOTE: T-SCORE=SD OF THE YOUNG ADULT MEAN.
== END | disposition home or self-care (01) ==
LOC: RADBDWWP 07:55
PROVIDERS: ATTEND Internal Medicine
DX: M85.80 Other specified disorders of bone density and structure, unspecified site (principal)
CPT/HCPCS: 77080

== ENCOUNTER 2020-07-12 13:04 | Observation (INO) | payer MEDICARE, OTHER ==
[2020-07-12] MEDS ORDERED: ASPIRIN 81 MG PO STA (13:34)
[2020-07-12] MEDS ORDERED: NITROGLYCERIN OINT 1 INCH/GM PACKET TOPICAL STA (13:34)
--- NOTE | 2020-07-12 13:46 | ED ---
General Adult HPI - General Chief complaint: Chest Pain Stated complaint: Chest Pain Time Seen by Provider: 07/12/20 13:15 Source: patient, RN notes reviewed, old records reviewed Mode of arrival: ambulatory Limitations: no limitations - History of Present Illness Initial comments: This is an 80-year-old female presents emergency Department complaining of left- sided chest pain that radiates to her jaw and her head. Patient states the pain lasted for a few minutes but it came back multiple times and she took a nitroglycerin it took the pain away completely. Patient states she has had a stent placed she has diabetes high blood pressure high cholesterol. Patient denies smoking. Patient states currently she has no symptoms whatsoever. Patient denies any recent fever or chills patient denies any cough. Patient denies any abdominal pain patient denies nausea vomiting diarrhea. - Related Data Home Medications Medication Instructions Recorded Confirmed Pantoprazole Sodium [Protonix] 40 mg PO QAM 09/23/16 07/12/20 Aspirin EC [Ecotrin Low Dose] 81 mg PO DAILY 11/05/16 07/12/20 Fluticasone/Umeclidin/Vilanter 1 puff INHALATION RT-DAILY 04/19/20 07/12/20 [Trelegy Ellipta 100-62.5-25] Levalbuterol HCl [Xopenex] 1.25 mg INHALATION RT-BID PRN 04/19/20 07/12/20 ALPRAZolam [Xanax] 0.25 mg PO DAILY PRN 07/12/20 07/12/20 Albuterol Nebulized [Ventolin 2.5 mg INHALATION RT-DAILY PRN 07/12/20 07/12/20 Nebulized] Allergy Tab 1 tab PO DAILY PRN 07/12/20 07/12/20 Atorvastatin [Lipitor] 80 mg PO HS 07/12/20 07/12/20 Cholecalciferol [Vitamin D3 (25 1,000 unit PO DAILY 07/12/20 07/12/20 Mcg = 1000 Iu)] Cough Syrup 1 dose PO DAILY 07/12/20 07/12/20 Digoxin [Digitek] 125 mcg PO DAILY 07/12/20 07/12/20 Enalapril [Vasotec] 20 mg PO DAILY@1600 07/12/20 07/12/20 Eye Vitamins 1 tab PO DAILY 07/12/20 07/12/20 Gabapentin 300 mg PO DAILY 07/12/20 07/12/20 Gabapentin 600 mg PO HS 07/12/20 07/12/20 I Bguard 1 tab PO DAILY@1600 07/12/20 07/12/20 Prestonacidoph,Paracasei B.lactis 1 cap PO DAILY 07/12/20 07/12/20 [Probiotic] Melatonin 10 mg PO HS 07/12/20 07/12/20 PARoxetine [Paxil] 20 mg PO DAILY 07/12/20 07/12/20 amLODIPine [Norvasc] 5 mg PO HS 07/12/20 07/12/20 metFORMIN HCL [Glucophage] 500 mg PO DAILY@1600 07/12/20 07/12/20 Previous Rx's Medication Instructions Recorded Apixaban [Eliquis] 2.5 mg PO BID tablet 10/02/16 Hydrocodone/Acetaminophen [[place] 1 tab PO Q12HR PRN 4 Days #8 tab 04/21/20 5-325] Lidocaine 5% Patch [Lidoderm 5% 1 patch TOPICAL DAILY #7 patch 04/21/20 Patch] Nitroglycerin Sl Tabs [Nitrostat] 0.4 mg SUBLINGUAL Q5M PRN #20 tab 04/21/20 Allergies Allergy/AdvReac Type Severity Reaction Status Date / Time No Known Allergies Allergy Verified 07/12/20 14:35 Review of Systems ROS Statement: Those systems with pertinent positive or pertinent negative responses have been documented in the HPI. ROS Other: All systems not noted in ROS Statement are negative. Past Medical History Past Medical History: Atrial Fibrillation, Cancer, Heart Failure, COPD, CVA/TIA, Deep Vein Thrombosis (DVT), Fibromyalgia, GERD/Reflux, Hyperlipidemia, Hypertension, Osteoarthritis (OA), Pneumonia, Sleep Apnea/CPAP/BIPAP, Vascular Disorder Additional Past Medical History / Comment(s): back pain , lung cancer-radiation opnly, HOME 02 2 LITERS [place], BLOOD CLOT AFTER SX, CVA LT SIDE AFFECTED SINCE RESOLVED, HIATAL HERNIA. SHINGLES 30 YEARS AGO, DOES'NT USE CPAP MACHINE.in past for short period of time took oral meds for dm-then taken off meds-pt stated not considered diabetic now but occ will check bs., macular degeneration.past broken rt leg and lt wrist. Raynauds. Pt currently has 3 fractured ribs on the right that she has "had for years and will not heal". History of Any Multi-Drug Resistant Organisms: MRSA Date of last positivie culture/infection: 09/25/16 MDRO Source:: BRONCH WASH Past Surgical History: Cholecystectomy, Heart Catheterization With Stent, Orthopedic Surgery Additional Past Surgical History / Comment(s): rt leg repaired after break-has pins, lt wrist-plate and screws. lung bx, stents tung groins. Past Anesthesia/Blood Transfusion Reactions: Family History of Problems w/ Anesthesia Additional Past Anesthesia/Blood Transfusion Reaction / Comment(s): daughter has diff waking after aa Date of Last Stent Placement:: unk Past Psychological History: Depression Smoking Status: Never smoker Past Alcohol Use History: Rare Past Drug Use History: None Reported - Past Family History Father Family Medical History: Congestive Heart Failure (CHF), COPD Additional Family Medical History / Comment(s): emphysema Mother Family Medical History: Cancer General Exam - General Exam Comments Initial Comments: GENERAL: Patient is well-developed and well-nourished. Patient is nontoxic and well- hydrated and is in no acute distress. ENT: Neck is soft and supple. No significant lymphadenopathy is noted. Oropharynx is clear. Moist mucous membranes. Neck has full range of motion without eliciting any pain. EYES: The sclera were anicteric and conjunctiva were pink and moist. Extraocular movements were intact and pupils were equal round and reactive to light. Eyelids were unremarkable. PULMONARY: Unlabored respirations. Good breath sounds bilaterally. No audible rales rhonchi or wheezing was noted. CARDIOVASCULAR: There is a regular rate and rhythm without any murmurs gallops or rubs. ABDOMEN: Soft and nontender with normal bowel sounds. No palpable organomegaly was noted. There is no palpable pulsatile mass. SKIN: Skin is clear with no lesions or rashes and otherwise unremarkable. NEUROLOGIC: Patient is alert and oriented x3. Cranial nerves II through XII are grossly intact. Motor and sensory are also intact. Normal speech, volume and content. Symmetrical smile. MUSCULOSKELETAL: Normal extremities with adequate strength and full range of motion. No lower extremity swelling or edema. No calf tenderness. LYMPHATICS: No significant lymphadenopathy is noted PSYCHIATRIC: Normal psychiatric evaluation. Limitations: no limitations Course Vital Signs 07/12/20 13:14 Temperature 97.9 F Pulse Rate 71 Respiratory 18 Rate Blood Pressure 186/74 O2 Sat by Pulse 97 Oximetry Medical Decision Making - Medical Decision Making EKG shows normal sinus rhythm at 73 bpm OR interval is 186 QRS is 82 QT interval 32 QTC is 420. Patient's EKG shows no ST segment elevation or depression. Chest x-ray shows no acute abnormality I spoke with Dr. Ivey she agreed to admit the patient admitted the patient wrote admitting orders. - Lab Data Result diagrams: 07/12/20 13:41 07/12/20 13:41 Lab Results 07/12/20 07/12/20 07/12/20 Range/Units 13:41 13:41 13:41 WBC 8.0 (3.8-10.6) k/uL RBC 4.27 (3.80-5.40) m/uL Hgb 12.8 (11.4-16.0) gm/dL Hct 38.1 (34.0-46.0) % MCV 89.3 (80.0-100.0) fL MCH 30.0 (25.0-35.0) pg MCHC 33.6 (31.0-37.0) g/dL RDW 12.6 (11.5-15.5) % Plt Count 214 (150-450) k/uL MPV 7.7 Neutrophils % 71 % Lymphocytes % 21 % Monocytes % 5 % Eosinophils % 2 % Basophils % 1 % Neutrophils # 5.6 (1.3-7.7) k/uL Lymphocytes # 1.7 (1.0-4.8) k/uL Monocytes # 0.4 (0-1.0) k/uL Eosinophils # 0.1 (0-0.7) k/uL Basophils # 0.1 (0-0.2) k/uL PT 11.0 (9.0-12.0) sec INR 1.0 (<1.2) APTT 23.4 (22.0-30.0) sec Sodium 135 L (137-145) mmol/L Potassium 4.7 (3.5-5.1) mmol/L Chloride 99 (98-107) mmol/L Carbon Dioxide 27 (22-30) mmol/L Anion Gap 9 mmol/L BUN 14 (7-17) mg/dL Creatinine 0.64 (0.52-1.04) mg/dL Est GFR (CKD-EPI)AfAm >90 (>60 ml/min/1.73 sqM) Est GFR (CKD-EPI)NonAf 84 (>60 ml/min/1.73 sqM) Glucose 125 H (74-99) mg/dL Calcium 9.8 (8.4-10.2) mg/dL Magnesium 1.7 (1.6-2.3) mg/dL Total Bilirubin 0.6 (0.2-1.3) mg/dL AST 32 (14-36) U/L ALT 23 (4-34) U/L Alkaline Phosphatase 77 (38-126) U/L Troponin I (0.000-0.034) ng/mL Total Protein 7.0 (6.3-8.2) g/dL Albumin 4.3 (3.5-5.0) g/dL 07/12/20 Range/Units 13:41 WBC (3.8-10.6) k/uL RBC (3.80-5.40) m/uL Hgb (11.4-16.0) gm/dL Hct (34.0-46.0) % MCV (80.0-100.0) fL MCH (25.0-35.0) pg MCHC (31.0-37.0) g/dL RDW (11.5-15.5) % Plt Count (150-450) k/uL MPV Neutrophils % % Lymphocytes % % Monocytes % % Eosinophils % % Basophils % % Neutrophils # (1.3-7.7) k/uL Lymphocytes # (1.0-4.8) k/uL Monocytes # (0-1.0) k/uL Eosinophils # (0-0.7) k/uL Basophils # (0-0.2) k/uL PT (9.0-12.0) sec INR (<1.2) APTT (22.0-30.0) sec Sodium (137-145) mmol/L Potassium (3.5-5.1) mmol/L Chloride (98-107) mmol/L Carbon Dioxide (22-30) mmol/L Anion Gap mmol/L BUN (7-17) mg/dL Creatinine (0.52-1.04) mg/dL Est GFR (CKD-EPI)AfAm (>60 ml/min/1.73 sqM) Est GFR (CKD-EPI)NonAf (>60 ml/min/1.73 sqM) Glucose (74-99) mg/dL Calcium (8.4-10.2) mg/dL Magnesium (1.6-2.3) mg/dL Total Bilirubin (0.2-1.3) mg/dL AST (14-36) U/L ALT (4-34) U/L Alkaline Phosphatase (38-126) U/L Troponin I <0.012 (0.000-0.034) ng/mL Total Protein (6.3-8.2) g/dL Albumin (3.5-5.0) g/dL Disposition Clinical Impression: Unstable angina pectoris Disposition: ADMITTED IP TO THIS HOSP Referrals: Kaylie Ivey MD [Primary Care Provider] - 1-2 days Time of Disposition: 14:52
[2020-07-12 13:52] LABS: Basophils # (A) 0.1 k/uL (0-0.2); Basophils % (A) 1 %; Eosinophils # (A) 0.1 k/uL (0-0.7); Eosinophils % (A) 2 %; HCT 38.1 % (34.0-46.0); HGB 12.8 gm/dL (11.4-16.0); Lymphocytes # (A) 1.7 k/uL (1.0-4.8); Lymphocytes % (A) 21 %; MCHC 33.6 g/dL (31.0-37.0); MCV 89.3 fL (80.0-100.0); Mean Platelet Volume 7.7; Monocytes # (A) 0.4 k/uL (0-1.0); Monocytes % (A) 5 %; Neutrophils # (A) 5.6 k/uL (1.3-7.7); Neutrophils % (A) 71 %; Platelet Count 214 k/uL (150-450); RBC 4.27 m/uL (3.80-5.40); RDW 12.6 % (11.5-15.5)
--- NOTE | 2020-07-12 13:59 | XR ---
EXAMINATION TYPE: XR chest 2V DATE OF EXAM: 07/12/2020 COMPARISON: 04/24/2020 HISTORY: Shortness of breath TECHNIQUE: Frontal and lateral views of the chest are obtained. FINDINGS: Scattered senescent parenchymal changes noted. Hyperinflation compatible with COPD. No evidence for infiltrate. No evidence for atelectasis. Heart size is stable. Mediastinal structures are stable and grossly unremarkable. No evidence for hilar prominence. Degenerative changes dorsal spine. IMPRESSION: 1. No evidence for acute pulmonary disease.
[2020-07-12 14:00] LABS: ALT 23 U/L (4-34); AST 32 U/L (14-36); African American GFR (CKD) >90 (>60 ml/min/1.73 sqM); Albumin 4.3 g/dL (3.5-5.0); Alkaline Phosphatase 77 U/L (38-126); Anion Gap 9 mmol/L; Blood Urea Nitrogen 14 mg/dL (7-17); Calcium 9.8 mg/dL (8.4-10.2); Carbon Dioxide 27 mmol/L (22-30); Chloride 99 mmol/L (98-107); Glucose 125 mg/dL (74-99); Magnesium 1.7 mg/dL (1.6-2.3); Non-African American GFR(CKD) 84 (>60 ml/min/1.73 sqM); Potassium 4.7 mmol/L (3.5-5.1); Sodium 135 mmol/L (137-145); Total Bilirubin 0.6 mg/dL (0.2-1.3)
[2020-07-12] MEDS ORDERED: ACETAMINOPHEN TAB 325 MG TAB PO STA (14:12)
[2020-07-12 14:43] LABS: Partial Thromboplastin Time 23.4 sec (22.0-30.0)
[2020-07-12] MEDS ORDERED: NITROGLYCERIN SL TABS 0.4 MG TAB SUBLINGUAL PRN (14:53)
[2020-07-12] MEDS ORDERED: ALBUTEROL NEBULIZED 2.5 MG/3 ML INHALATION PRN ×3 (14:56→17:42)
[2020-07-12] MEDS ORDERED: ALPRAZolam 0.25 MG TAB PO PRN (14:56)
[2020-07-12] MEDS ORDERED: metFORMIN 500 MG TAB PO SCH (16:00)
[2020-07-12] MEDS: NITROGLYCERIN OINT 1 INCH/GM PACKET TOPICAL SCH (17:11)
[2020-07-12] MEDS ORDERED: HYDROcodone/APAP 5-325MG 1 EACH TAB PO PRN (17:35)
--- NOTE | 2020-07-12 17:59 | P.HPIM ---
History of Present Illness H&P Date: 07/12/20 Chief Complaint: Palpitation, jaw pain 80 years old female who I have seen in the clinic for the first time last month with past medical history of chronic hypoxic failure and urinary to COPD on 2 L of oxygen with exertion and at bedtime coronary artery disease with multivessel stenting, peripheral artery disease with previous stenting, history of non-small cell lung cancer status post radiation with possible reccurrence with new lesion in the right middle lobe 8 X 4 mm in size with negative bone scan follows Dr. Patel as outpatient, chronic fibromyalgia chronic nicotine dependence ex-smoker, degenerative joint disease, Raynaud's, chronically fractured 3 ribs on the right that has not healed the years, hypertension, hyperlipidemia and paroxysmal atrial fibrillation with last HUE with cardioversion in [address] Rodriguez as outpatient comes in with palpitation for 4 hours associated with pain in her neck and jaw that improved with nitro. Patient has been previously admitted in March 2020 for A. fib with RVR. On evaluation today patient is lying comfortably in bed denies any palpitation or jaw pain. Patient does feel dizzy temp intermittently but denies any shortness of breath or chest pain vitals his S temp of 97.8 pulse 81 and respiratory rate 16 blood pressure 156/76. Labs suggest hemoglobin of 12.8 sodium 135 creatinine 0.64 BUN 14 troponin 2 negative Hawthoren negative EKG does have Q waves in the anterior leads with nonspecific ST-T wave changes in the anterior leads Cardiology consult placed echo done in March 2020 had EF of 55-60% with mild valvular disease no wall abnormality Review of Systems Constitutional: Denies chills, Denies fever, Denies lethargy, Denies malaise, Denies poor appetite, Denies weakness, Denies weight loss Eyes: denies decreased vision, denies diplopia, denies discharge, denies pain Ears: deny: decreased hearing Ears, nose, mouth and throat: Denies dental pain, Denies headache, Denies nasal discharge, Denies nose pain Cardiovascular: Endorses palpitations and endorses jaw pain denies chest pain Denies decreased exercise tolerance, Denies edema, Denies high blood pressure, endorses irregular heart beat, Denies paroxysmal nocturnal dyspnea, Denies rapid heart beat, Denies shortness of breath Respiratory: Denies congestion, Denies cough, Denies cough with sputum, Denies dyspnea, Denies home oxygen, Denies wheezing Gastrointestinal: Denies abdominal pain, Denies change in bowel habits, Denies coffee ground emesis, Denies early satiety, Denies excessive gas, Denies heartburn, Denies hematemesis, Denies hematochezia, Denies loss of appetite, Denies nausea, Denies vomiting Genitourinary: Denies dysuria, Denies flank pain, Denies kidney stones, Denies menorrhagia, Denies urgency, Denies urinary frequency Musculoskeletal: Denies gait dysfunction, Denies limitation of motion, Denies morning stiffness, Denies muscle cramps Integumentary: Denies rash, Denies wounds, Denies brittle nails, Denies change in hair/nails, Denies darkening of skin Neurological: Denies balance difficulties, Denies change in speech, Denies double vision, Denies gait dysfunction, Denies loss of vision, Denies motor disturbance, Denies numbness, Denies paralysis, Denies paresthesias, Denies seizures Psychiatric: Denies anxiety, Denies depression Endocrine: Denies excessive sweating, Denies excessive thirst, Denies high blood sugars, Denies palpitations Hematologic/Lymphatic: Denies easy bruising, Denies lymphadenopathy Past Medical History Past Medical History: Atrial Fibrillation, Cancer, Heart Failure, COPD, CVA/TIA, Diabetes Mellitus, Deep Vein Thrombosis (DVT), Fibromyalgia, GERD/Reflux, Hyperlipidemia, Hypertension, Osteoarthritis (OA), Pneumonia, Sleep Apnea/CPAP/BIPAP, Vascular Disorder Additional Past Medical History / Comment(s): back pain , lung cancer-radiation opnly, HOME 02 2 LITERS [place], BLOOD CLOT AFTER SX, CVA LT SIDE AFFECTED SINCE RESOLVED, HIATAL HERNIA. SHINGLES 30 YEARS AGO, DOES'NT USE CPAP MACHINE.in past for short period of time took oral meds for dm-then taken off meds-pt stated not considered diabetic now but occ will check bs., macular degeneration.past broken rt leg and lt wrist. Raynauds. Pt currently has 3 fractured ribs on the right that she has "had for years and will not heal". History of Any Multi-Drug Resistant Organisms: MRSA Date of last positivie culture/infection: 09/25/16 MDRO Source:: BRONCH WASH Past Surgical History: Cholecystectomy, Heart Catheterization With Stent, Orthopedic Surgery Additional Past Surgical History / Comment(s): rt leg repaired after break-has pins, lt wrist-plate and screws. lung bx, stents tung groins. Past Anesthesia/Blood Transfusion Reactions: Family History of Problems w/ Anesthesia Additional Past Anesthesia/Blood Transfusion Reaction / Comment(s): daughter has diff waking after aa Date of Last Stent Placement:: unk Past Psychological History: Depression Additional Psychological History / Comment(s): [place] and [place]. does'nt drive-either daughters or sister takes her places. has home 02, nebulizer. . Ongoing tobacco smoker stopping just may 2016. Has a history of lung cancer with radiation. Smoking Status: Former smoker Past Alcohol Use History: None Reported, Rare Additional Past Alcohol Use History / Comment(s): started smopking at age [age]), quit 2016 Past Drug Use History: None Reported - Past Family History Father Family Medical History: Congestive Heart Failure (CHF), COPD Additional Family Medical History / Comment(s): emphysema Mother Family Medical History: Cancer Medications and Allergies Home Medications Medication Instructions Recorded Confirmed Type Pantoprazole Sodium [Protonix] 40 mg PO QAM 09/23/16 07/12/20 History Apixaban [Eliquis] 2.5 mg PO BID tablet 10/02/16 07/12/20 Rx Aspirin EC [Ecotrin Low Dose] 81 mg PO DAILY 11/05/16 07/12/20 History Fluticasone/Umeclidin/Vilanter 1 puff INHALATION RT-DAILY 04/19/20 07/12/20 History [Trelegy Ellipta 100-62.5-25] Levalbuterol HCl [Xopenex] 1.25 mg INHALATION RT-BID PRN 04/19/20 07/12/20 History Hydrocodone/Acetaminophen [[place] 1 tab PO Q12HR PRN 4 Days #8 tab 04/21/20 07/12/20 Rx 5-325] Lidocaine 5% Patch [Lidoderm 5% 1 patch TOPICAL DAILY #7 patch 04/21/20 07/12/20 Rx Patch] Nitroglycerin Sl Tabs [Nitrostat] 0.4 mg SUBLINGUAL Q5M PRN #20 tab 04/21/20 07/12/20 Rx ALPRAZolam [Xanax] 0.25 mg PO DAILY PRN 07/12/20 07/12/20 History Albuterol Nebulized [Ventolin 2.5 mg INHALATION RT-DAILY PRN 07/12/20 07/12/20 History Nebulized] Allergy Tab 1 tab PO DAILY PRN 07/12/20 07/12/20 History Atorvastatin [Lipitor] 80 mg PO HS 07/12/20 07/12/20 History Cholecalciferol [Vitamin D3 (25 1,000 unit PO DAILY 07/12/20 07/12/20 History Mcg = 1000 Iu)] Cough Syrup 1 dose PO DAILY 07/12/20 07/12/20 History Digoxin [Digitek] 125 mcg PO DAILY 07/12/20 07/12/20 History Enalapril [Vasotec] 20 mg PO DAILY@1600 07/12/20 07/12/20 History Eye Vitamins 1 tab PO DAILY 07/12/20 07/12/20 History Gabapentin 300 mg PO DAILY 07/12/20 07/12/20 History Gabapentin 600 mg PO HS 07/12/20 07/12/20 History I Bguard 1 tab PO DAILY@1600 07/12/20 07/12/20 History L.acidoph,Paracasei, B.lactis 1 cap PO DAILY 07/12/20 07/12/20 History [Probiotic] Melatonin 10 mg PO HS 07/12/20 07/12/20 History PARoxetine [Paxil] 20 mg PO DAILY 07/12/20 07/12/20 History amLODIPine [Norvasc] 5 mg PO HS 07/12/20 07/12/20 History metFORMIN HCL [Glucophage] 500 mg PO DAILY@1600 07/12/20 07/12/20 History Allergies Allergy/AdvReac Type Severity Reaction Status Date / Time No Known Allergies Allergy Verified 07/12/20 14:35 Physical Exam Vitals: Vital Signs Temp Pulse Pulse Resp BP BP Pulse Ox 07/12/20 16:12 97.8 F 81 16 156/76 97 07/12/20 15:25 98.3 F 62 16 156/70 98 07/12/20 13:14 97.9 F 71 18 186/74 97 Intake and Output 07/12/20 07/12/20 07/12/20 06:59 14:59 22:59 Other: Weight 54.431 kg 54.431 kg - Constitutional General appearance: cooperative, no acute distress, on 2 L - EENT Eyes: anicteric sclerae, PERRLA, normal appearance ENT: hearing grossly normal - Neck Neck: no lymphadenopathy, normal ROM, no other, no rigidity, no stridor, no thyromegaly - Respiratory Respiratory: bilateral: CTA, negative: diminished, dullness, rales, rhonchi - Cardiovascular Rhythm: regular Heart sounds: normal: S1, S2 Abnormal Heart Sounds: no systolic murmur, no diastolic murmur, no rub, no S3 Gallop, no S4 Gallop, no click, no other - Gastrointestinal General gastrointestinal: normal bowel sounds, soft - Integumentary Integumentary: no rash - Neurologic Neurologic: CNII-XII intact - Musculoskeletal Musculoskeletal: gait not assessed, strength equal bilaterally - Psychiatric Psychiatric: A&O x's 3, appropriate affect Results CBC & Chem 7: 07/12/20 13:41 07/12/20 13:41 Labs: Abnormal Lab Results - Last 24 Hours (Table) 07/12/20 Range/Units 13:41 Sodium 135 L (137-145) mmol/L Glucose 125 H (74-99) mg/dL Thrombosis Risk Factor Assmnt - Choose All That Apply Each Factor Represents 1 point: Abnormal pulmonary function (COPD) Each Risk Factor Represents 3 Points: Age 75 years or older Other congenital or acquired thrombophilia - If yes, enter type in comment: No Thrombosis Risk Factor Assessment Total Risk Factor Score: 4 Thrombosis Risk Factor Assessment Level: Moderate Risk Assessment and Plan Plan: #1 atypical chest pain likely related to atrial fibrillation. Currently in sinus rhythm continue telemetry EKG does have some nonspecific ST-T wave changes troponin every 3 hours 3. Cardiology consult placed. #2 paroxysmal atrial fibrillation currently in normal sinus rhythm. Continue liquids 2.5 mg twice a day continue digoxin 125 g by mouth daily patient not on beta javier patient was discharged on Cardizem 30 3 times a day but currently is on amlodipine 5 mg daily at bedtime. #3 right middle lobe lung density 18-4 mm scarlike opacity versus pigmented did not do. Bone scan has been negative. Patient follows oncology Dr. Patel as outpatient. #4 hypertension on lisinopril 2.5 mg by mouth daily, continue. Unclear if patient was recently switched to Norvasc from Cardizem. Cardiology to see patient tomorrow #5 hyperlipidemia continue atorvastatin 80 mg daily at bedtime #6 degenerative disc disease and lumbar radiculopathy continue gabapentin 600 mg daily at bedtime and 300 mg by mouth daily with [place] 5 every 12 when lidocaine patch daily #7 coronary artery disease status post stenting continue aspirin, digoxin, atorvastatin #8. peripheral artery diseasestatus post stenting on aspirin #9 history of sleep apnea but patient does not wear CPAP at night #10 history of COPD/chronic hypoxic respiratory failure on 2 L off oxygen continue new albuterol as needed #11 history of non-small cell lung cancer status post radiation follows Dr. 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
[2020-07-12 20:01] LABS: Glucose,Whole Blood 140 mg/dL (75-99)
[2020-07-12] MEDS: APIXABAN 2.5 MG TABLET PO SCH (20:06)
[2020-07-12] MEDS ORDERED: ATORVASTATIN 80 MG TAB PO SCH (21:00)
[2020-07-12] MEDS ORDERED: amLODIPine 5 MG TAB PO SCH (21:00)
[2020-07-12] MEDS ORDERED: GABAPENTIN 300 MG CAP PO SCH (21:00)
[2020-07-12] MEDS ORDERED: MELATONIN 5 MG TABLET PO SCH (21:00)
[2020-07-13] MEDS: NITROGLYCERIN OINT 1 INCH/GM PACKET TOPICAL SCH ×3 (01:19→12:46)
[2020-07-13 03:20] VITALS: RESP 18
[2020-07-13 07:21] LABS: Glucose,Whole Blood 131 mg/dL (75-99)
[2020-07-13] MEDS ORDERED: PANTOPRAZOLE 40 MG TABLET PO SCH (07:30)
[2020-07-13 07:50] VITALS: BP 109/56; PULSE 61; TEMP 97.7
[2020-07-13] MEDS ORDERED: ASPIRIN 81 MG PO SCH (09:00)
[2020-07-13] MEDS ORDERED: GABAPENTIN 300 MG CAP PO SCH (09:00)
[2020-07-13] MEDS ORDERED: PARoxetine 20 MG TAB PO SCH (09:00)
[2020-07-13] MEDS ORDERED: DIGOXIN 125 MCG TAB PO SCH (09:00)
[2020-07-13] MEDS ORDERED: ASPIRIN 325 MG TAB PO SCH (09:00)
[2020-07-13 09:56] LABS: Basophils % (A) 1 %; Eosinophils # (A) 0.2 k/uL (0-0.7); Eosinophils % (A) 3 %; HCT 37.1 % (34.0-46.0); HGB 12.4 gm/dL (11.4-16.0); Lymphocytes # (A) 1.5 k/uL (1.0-4.8); Lymphocytes % (A) 21 %; MCH 30.1 pg (25.0-35.0); MCHC 33.4 g/dL (31.0-37.0); Mean Platelet Volume 7.7; Monocytes # (A) 0.4 k/uL (0-1.0); Monocytes % (A) 5 %; Neutrophils % (A) 69 %; Platelet Count 196 k/uL (150-450); RBC 4.12 m/uL (3.80-5.40); RDW 12.6 % (11.5-15.5); WBC 7.3 k/uL (3.8-10.6)
[2020-07-13 10:08] LABS: ALT 22 U/L (4-34); AST 29 U/L (14-36); African American GFR (CKD) >90 (>60 ml/min/1.73 sqM); Albumin 4.1 g/dL (3.5-5.0); Albumin/Globulin Ratio 1.8; Alkaline Phosphatase 74 U/L (38-126); Anion Gap 5 mmol/L; Blood Urea Nitrogen 18 mg/dL (7-17); Calcium 9.7 mg/dL (8.4-10.2); Carbon Dioxide 31 mmol/L (22-30); Chloride 98 mmol/L (98-107); Cholesterol 139 mg/dL (<200); Globulin 2.3 g/dL; Glucose 131 mg/dL (74-99); HDL Cholesterol 74 mg/dL (40-60); LDL Cholesterol,Calculated 44 mg/dL (0-99); Non-African American GFR(CKD) 82 (>60 ml/min/1.73 sqM); Potassium 4.5 mmol/L (3.5-5.1); Sodium 134 mmol/L (137-145); Total Bilirubin 0.5 mg/dL (0.2-1.3); Total Protein 6.4 g/dL (6.3-8.2); Triglycerides 104 mg/dL (<150)
[2020-07-13] MEDS: APIXABAN 2.5 MG TABLET PO SCH (10:21)
[2020-07-13] MEDS: LIDOCAINE 5% PATCH TOPICAL SCH ×2 (10:23→10:25)
[2020-07-13 11:39] LABS: Glucose,Whole Blood 176 mg/dL (75-99)
--- NOTE | 2020-07-13 11:46 | P.CRDCN ---
History of Present Illness History of present illness: HISTORY OF PRESENTING ILLNESS This is a pleasant 80-year-old female past medical history significant for coronary artery disease status post PCI, paroxysmal atrial fibrillation on long-term anticoagulation, hypertension, dyslipidemia, valvular heart disease and COPD. She follows in the office with Dr. Lance. We have been asked to see in consultation for chest pain. She states yesterday morning she was sitting down when she started feeling her heart racing. This was associated with feeling short of breath and mildly lightheaded. She did check her blood pressure at the time and it was elevated in the 160s systolic and her heart rate was running in the 70s. Consider brief in nature. There is no radiation of any discomfort to the chest. She had no nausea, vomiting or diaphoresis. Most recent echocardiogram obtained in the office March 2020 revealed preserved LV systolic function with ejection fraction 55%, mild to moderate mitral regurgitation, moderate tricuspid regurgitation and mild pulmonary hypertension with RVSP of 35 mmHg. DIAGNOSTICS EKG reveals sinus mechanism with nonspecific ST abnormalities. Telemetry tracings indicate sinus mechanism with frequent PVCs. Chest xray treated for an acute cardiopulmonary process. Laboratory reviewed, CBC unremarkable, sodium 134, potassium 4.5, creatinine 0.7, cardiac enzymes negative 3, LDL 44 and HDL 74. Current cardiac medications include Eliquis 2.5 mg twice a day, aspirin 81 mg daily, atorvastatin 80 mg daily, digoxin 125 g daily, enalapril 20 mg daily, amlodipine 5 mg daily. REVIEW OF SYSTEMS At the time of my exam: CONSTITUTIONAL: Denies fever or chills. CARDIOVASCULAR: Denies chest pain, shortness of breath, orthopnea, PND or palpitations. RESPIRATORY: Denies cough. GASTROINTESTINAL: Denies abdominal pain, diarrhea, constipation, nausea or vomiting. MUSCULOSKELETAL: Denies myalgias. NEUROLOGIC: Denies numbness, tingling, headacbe or weakness. ENDOCRINE: Denies fatigue, weight change, polydipsia or polyurina. GENITOURINARY: Denies burning, hematuria or urgency with micturation. HEMATOLOGIC: Denies history of anemia or bleeding. PHYSICAL EXAMINATION Blood pressure 109/56 heart rate 61 afebrile and maintaining oxygen saturation on room air. CONSTITUTIONAL: No apparent distress. HEENT: Head is normocephalic. Pupils are equal, round. Sclerae anicteric. Mucous membranes of the mouth are moist. No JVD. No carotid bruit. CHEST EXAMINATION: Lungs are clear to auscultation. No chest wall tenderness is noted on palpation or with deep breathing. HEART EXAMINATION: Regular rate and rhythm. S1, S2 heard. Soft ejection murmur at the base, no gallops or rub. ABDOMEN: Soft, nontender. Positive bowel sounds. EXTREMITIES: 2+ peripheral pulses, no lower extremity edema and no calf tenderness. NEUROLOGIC EXAMINATION: Patient is awake, alert and oriented x3. ASSESSMENT Palpitations Paroxysmal atrial fibrillation on long-term anticoagulation Hypertension Dyslipidemia COPD PLAN Episode sounds as though she was going in and out of atrial fibrillation. Check TSH. She also has been or can closely with Dr. Lance to control her blood pressure. Recommend doubling the dose of amlodipine to 5 mg twice a day. Stable for discharge from a cardiac perspective to follow-up with Dr. Lance in the office in one to 2 weeks. At that time they can do further outpatient event monitoring. Thank you kindly for this consultation. Nurse Practitioner note has been reviewed, I agree with a documented findings and plan of care. Patient was seen and examined. Past Medical History Past Medical History: Atrial Fibrillation, Cancer, Heart Failure, COPD, CVA/TIA, Diabetes Mellitus, Deep Vein Thrombosis (DVT), Fibromyalgia, GERD/Reflux, Hyperlipidemia, Hypertension, Osteoarthritis (OA), Pneumonia, Sleep Apnea/CPAP/BIPAP, Vascular Disorder Additional Past Medical History / Comment(s): back pain , lung cancer-radiation opnly, HOME 02 2 LITERS N/C, BLOOD CLOT AFTER SX, CVA LT SIDE AFFECTED SINCE RESOLVED, HIATAL HERNIA. SHINGLES 30 YEARS AGO, DOES'NT USE CPAP MACHINE.in past for short period of time took oral meds for dm-then taken off meds-pt stated not considered diabetic now but occ will check bs., macular degeneration.past broken rt leg and lt wrist. Raynauds. Pt currently has 3 fractured ribs on the right that she has "had for years and will not heal". History of Any Multi-Drug Resistant Organisms: MRSA Date of last positivie culture/infection: 09/25/16 MDRO Source:: BRONCH WASH Past Surgical History: Cholecystectomy, Heart Catheterization With Stent, Orthopedic Surgery Additional Past Surgical History / Comment(s): rt leg repaired after break-has pins, lt wrist-plate and screws. lung bx, stents tung groins. Past Anesthesia/Blood Transfusion Reactions: Family History of Problems w/ Anesthesia Additional Past Anesthesia/Blood Transfusion Reaction / Comment(s): daughter has diff waking after aa Date of Last Stent Placement:: unk Past Psychological History: Depression Additional Psychological History / Comment(s): pt lives between [place] and [place]. does'nt drive-either daughters or sister takes her places. has home 02, nebulizer. . Ongoing tobacco smoker stopping just may 2016. Has a history of lung cancer with radiation. Smoking Status: Former smoker Past Alcohol Use History: None Reported, Rare Additional Past Alcohol Use History / Comment(s): started smopking at age 14(1956), quit 2016 Past Drug Use History: None Reported - Past Family History Father Family Medical History: Congestive Heart Failure (CHF), COPD Additional Family Medical History / Comment(s): emphysema Mother Family Medical History: Cancer Medications and Allergies Home Medications Medication Instructions Recorded Confirmed Type Pantoprazole Sodium [Protonix] 40 mg PO QAM 09/23/16 07/12/20 History Apixaban [Eliquis] 2.5 mg PO BID tablet 10/02/16 07/12/20 Rx Aspirin EC [Ecotrin Low Dose] 81 mg PO DAILY 11/05/16 07/12/20 History Fluticasone/Umeclidin/Vilanter 1 puff INHALATION RT-DAILY 04/19/20 07/12/20 History [Trelegy Ellipta 100-62.5-25] Levalbuterol HCl [Xopenex] 1.25 mg INHALATION RT-BID PRN 04/19/20 07/12/20 History Hydrocodone/Acetaminophen [[place] 1 tab PO Q12HR PRN 4 Days #8 tab 04/21/20 07/12/20 Rx 5-325] Lidocaine 5% Patch [Lidoderm 5% 1 patch TOPICAL DAILY #7 patch 04/21/20 07/12/20 Rx Patch] Nitroglycerin Sl Tabs [Nitrostat] 0.4 mg SUBLINGUAL Q5M PRN #20 tab 04/21/20 07/12/20 Rx ALPRAZolam [Xanax] 0.25 mg PO DAILY PRN 07/12/20 07/12/20 History Albuterol Nebulized [Ventolin 2.5 mg INHALATION RT-DAILY PRN 07/12/20 07/12/20 History Nebulized] Allergy Tab 1 tab PO DAILY PRN 07/12/20 07/12/20 History Atorvastatin [Lipitor] 80 mg PO HS 07/12/20 07/12/20 History Cholecalciferol [Vitamin D3 (25 1,000 unit PO DAILY 07/12/20 07/12/20 History Mcg = 1000 Iu)] Cough Syrup 1 dose PO DAILY 07/12/20 07/12/20 History Digoxin [Digitek] 125 mcg PO DAILY 07/12/20 07/12/20 History Enalapril [Vasotec] 20 mg PO DAILY@1600 07/12/20 07/12/20 History Eye Vitamins 1 tab PO DAILY 07/12/20 07/12/20 History Gabapentin 300 mg PO DAILY 07/12/20 07/12/20 History Gabapentin 600 mg PO HS 07/12/20 07/12/20 History I Bguard 1 tab PO DAILY@1600 07/12/20 07/12/20 History L.acidoph,Paracasei, B.lactis 1 cap PO DAILY 07/12/20 07/12/20 History [Probiotic] Melatonin 10 mg PO HS 07/12/20 07/12/20 History PARoxetine [Paxil] 20 mg PO DAILY 07/12/20 07/12/20 History amLODIPine [Norvasc] 5 mg PO HS 07/12/20 07/12/20 History metFORMIN HCL [Glucophage] 500 mg PO DAILY@1600 07/12/20 07/12/20 History Allergies Allergy/AdvReac Type Severity Reaction Status Date / Time No Known Allergies Allergy Verified 07/12/20 14:35 Physical Exam Vitals: Vital Signs Temp Pulse Pulse Resp BP BP Pulse Ox 07/13/20 08:00 18 07/13/20 07:00 97.7 F 61 18 109/56 99 07/13/20 02:00 98.1 F 59 L 18 121/49 99 07/12/20 18:53 98 F 67 16 149/65 98 07/12/20 16:12 97.8 F 81 16 156/76 97 07/12/20 15:25 98.3 F 62 16 156/70 98 07/12/20 14:53 97 07/12/20 13:14 97.9 F 71 18 186/74 97 Intake and Output 07/12/20 07/13/20 07/13/20 22:59 06:59 14:59 Other: Voiding Method Toilet # Voids 1 2 Weight 54.431 kg Results 07/13/20 09:35 07/13/20 09:35 Cardiac Enzymes 07/12/20 07/12/20 07/12/20 Range/Units 13:41 13:41 16:32 AST 32 (14-36) U/L Troponin I <0.012 <0.012 (0.000-0.034) ng/mL 07/12/20 Range/Units 20:13 AST (14-36) U/L Troponin I <0.012 (0.000-0.034) ng/mL Coagulation 07/12/20 Range/Units 13:41 PT 11.0 (9.0-12.0) sec APTT 23.4 (22.0-30.0) sec CBC 07/12/20 Range/Units 13:41 WBC 8.0 (3.8-10.6) k/uL RBC 4.27 (3.80-5.40) m/uL Hgb 12.8 (11.4-16.0) gm/dL Hct 38.1 (34.0-46.0) % Plt Count 214 (150-450) k/uL Comprehensive Metabolic Panel 07/12/20 Range/Units 13:41 Sodium 135 L (137-145) mmol/L Potassium 4.7 (3.5-5.1) mmol/L Chloride 99 (98-107) mmol/L Carbon Dioxide 27 (22-30) mmol/L BUN 14 (7-17) mg/dL Creatinine 0.64 (0.52-1.04) mg/dL Glucose 125 H (74-99) mg/dL Calcium 9.8 (8.4-10.2) mg/dL AST 32 (14-36) U/L ALT 23 (4-34) U/L Alkaline Phosphatase 77 (38-126) U/L Total Protein 7.0 (6.3-8.2) g/dL Albumin 4.3 (3.5-5.0) g/dL Current Medications Generic Name Dose Route Start Last Admin Trade Name Freq PRN Reason Stop Dose Admin Hydrocodone Bitart/Acetaminophen 1 each 07/12/20 17:35 Hydrocodone/Apap 5-325mg 1 Each Tab PO Q12HR PRN Severe Pain Albuterol Sulfate 2.5 mg 07/12/20 14:56 Albuterol Nebulized 2.5 Mg/3 Ml INHALATION RT-DAILY PRN Shortness Of Breath Albuterol Sulfate 2.5 mg 07/12/20 17:42 Albuterol Nebulized 2.5 Mg/3 Ml INHALATION RT-BID PRN Shortness Of Breath Alprazolam 0.25 mg 07/12/20 14:56 Alprazolam 0.25 Mg Tab PO DAILY PRN Anxiety Amlodipine Besylate 5 mg 07/12/20 21:00 07/12/20 20:06 Amlodipine 5 Mg Tab PO 5 mg HS LETICIA Administration Apixaban 2.5 mg 07/12/20 21:00 07/12/20 20:06 Apixaban 2.5 Mg Tablet PO 2.5 mg BID LETICIA Administration Aspirin 81 mg 07/13/20 09:00 Aspirin 81 Mg PO DAILY LETICIA Atorvastatin Calcium 80 mg 07/12/20 21:00 07/12/20 20:06 Atorvastatin 80 Mg Tab PO 80 mg HS LETICIA Administration Digoxin 125 mcg 07/13/20 09:00 Digoxin 125 Mcg Tab PO DAILY [facility] Gabapentin 600 mg 07/12/20 21:00 07/12/20 20:06 Gabapentin 300 Mg Cap PO 600 mg HS [facility] Administration Gabapentin 300 mg 07/13/20 09:00 Gabapentin 300 Mg Cap PO DAILY [facility] Lidocaine 1 patch 07/13/20 09:00 Lidocaine 5% Patch TOPICAL DAILY [facility] Lisinopril 40 mg 07/13/20 16:00 Lisinopril 20 Mg Tab PO DAILY@1600 [facility] Melatonin 10 mg 07/12/20 21:00 07/12/20 20:06 Melatonin 5 Mg Tablet PO 10 mg HS [facility] Administration Metformin HCl 500 mg 07/12/20 16:00 07/12/20 17:11 Metformin 500 Mg Tab PO 500 mg DAILY@1600 [facility] Administration Nitroglycerin 0.4 mg 07/12/20 14:53 Nitroglycerin Sl Tabs 0.4 Mg Tab SUBLINGUAL Q5M PRN Chest Pain Nitroglycerin 1 inch 07/12/20 18:00 07/13/20 05:02 Nitroglycerin Oint 1 Inch/Gm Packet TOPICAL Not Given Q6HR [facility] Pantoprazole Sodium 40 mg 07/13/20 07:30 Pantoprazole 40 Mg Tablet PO QAM@0730 [facility] Paroxetine HCl 20 mg 07/13/20 09:00 Paroxetine 20 Mg Tab PO DAILY [facility]IC[facility] Intake and Output 07/12/20 07/13/20 07/13/20 22:59 06:59 14:59 Other: Voiding Method Toilet # Voids 1 2 Weight 54.431 kg 07/12/20 13:41 07/12/20 13:41
[2020-07-13] MEDS ORDERED: lisinopriL 20 MG TAB PO SCH (16:00)
--- NOTE | 2020-07-13 17:51 | P.DS ---
Providers Date of admission: 07/12/20 14:53 Attending physician: Kaylie Ivey MD Consults: 07/12/20 14:53 Consult Physician Urgent Consulting Provider: [facility] Consult Reason/Comments: Unstable angina Do you want consulting provider notified?: Yes Primary care physician: Kaylie Ivey MD Hospital Course: 80 years old female who I have seen in the clinic for the first time last month with past medical history of chronic hypoxic failure and urinary to COPD on 2 L of oxygen with exertion and at bedtime coronary artery disease with multivessel stenting, peripheral artery disease with previous stenting, history of non-small cell lung cancer status post radiation with possible reccurrence with new lesion in the right middle lobe 8 X 4 mm in size with negative bone scan follows Dr. Patel as outpatient, chronic fibromyalgia chronic nicotine dependence ex-smoker, degenerative joint disease, Raynaud's, chronically fractured 3 ribs on the right that has not healed the years, hypertension, hyperlipidemia and paroxysmal atrial fibrillation with last HUE with cardioversion [place] [address] Rodriguez as outpatient comes in with palpitation for 4 hours associated with pain in her neck and jaw that improved with nitro. Patient has been previously admitted in March 2020 for A. fib with RVR. On evaluation today patient is lying comfortably in bed denies any palpitation or jaw pain. Patient does feel dizzy temp intermittently but denies any shortness of breath or chest pain vitals his S temp of 97.8 pulse 81 and respiratory rate 16 blood pressure 156/76. Labs suggest hemoglobin of 12.8 sodium 135 creatinine 0.64 BUN 14 troponin 2 negative [place] negative EKG does have Q waves in the anterior leads with nonspecific ST-T wave changes in the anterior leads Ca rdiology consult placed echo done in March 2020 had EF of 55-60% with mild valvular disease no wall abnormality 07/13 and patient examined bedside. Denies any chest pressure or palpitation but does endorse noticing palpitation on movement and exertion. Cardiology evaluated the patient increase Norvasc 5 mg twice daily. At follow-up with Dr. Rodriguez as outpatient after 2 weeks. Patient denies any shortness of breath, change in bowel habits, bloody stools, melena, dizziness, lower extremity weakness. Physical exam - Constitutional General appearance: cooperative, no acute distress, obese - Respiratory Respiratory: bilateral: CTA, negative: diminished, dullness, rales, rhonchi - Cardiovascular Rhythm: regular Heart sounds: normal: S1, S2 Abnormal Heart Sounds: no systolic murmur, no diastolic murmur, no rub, no S3 Gallop, no S4 Gallop, no click, no other - Gastrointestinal General gastrointestinal: normal bowel sounds, soft - Integumentary Integumentary: no rash - - Musculoskeletal Musculoskeletal: gait normal, strength equal bilaterally Discharge diagnosis #1 atypical chest pain likely related to atrial fibrillation. #2 paroxysmal atrial fibrillation currently in normal sinus rhythm. #3 right middle lobe lung density 8X4 mm scarlike opacity Bone scan has been negative. Patient follows oncology Dr. Patel as outpatient. #4 hypertension #5 hyperlipidemia #6 degenerative disc disease and lumbar radiculopathy #7 coronary artery disease status post stenting #8. peripheral artery diseasestatus post stenting on aspirin #9 history of sleep apnea #10 history of COPD/chronic hypoxic respiratory failure on 2 L off oxygen #11 history of non-small cell lung cancer status post radiation follows Dr. Patel, as outpatient #12 history of CVA/TIA with left-sided weakness, resolved #13 history of DVT postsurgical resolved #14 fibromyalgia stable #15 history of GERD #16 history of depression Disposition home with self-care Patient Condition at Discharge: Good Plan - Discharge Summary Discharge Rx Participant: Yes New Discharge Prescriptions: New amLODIPine [Norvasc] 5 mg PO BID #60 tab Continue Pantoprazole Sodium [Protonix] 40 mg PO QAM Apixaban [Eliquis] 2.5 mg PO BID tablet Aspirin EC [Ecotrin Low Dose] 81 mg PO DAILY Levalbuterol HCl [Xopenex] 1.25 mg INHALATION RT-BID PRN PRN Reason: Shortness Of Breath Fluticasone/Umeclidin/Vilanter [Trelegy Ellipta 100-62.5-25] 1 puff INHALATION RT-DAILY Lidocaine 5% Patch [Lidoderm 5% Patch] 1 patch TOPICAL DAILY #7 patch Nitroglycerin Sl Tabs [Nitrostat] 0.4 mg SUBLINGUAL Q5M PRN #20 tab PRN Reason: Chest Pain Hydrocodone/Acetaminophen [[place] 5-325] 1 tab PO Q12HR PRN 4 Days #8 tab PRN Reason: Severe Pain Melatonin 10 mg PO HS L.acidoph,Paracasei, B.lactis [Probiotic] 1 cap PO DAILY Albuterol Nebulized [Ventolin Nebulized] 2.5 mg INHALATION RT-DAILY PRN PRN Reason: Shortness Of Breath metFORMIN HCL [Glucophage] 500 mg PO DAILY@1600 PARoxetine [Paxil] 20 mg PO DAILY ALPRAZolam [Xanax] 0.25 mg PO DAILY PRN PRN Reason: Anxiety Gabapentin 300 mg PO DAILY Gabapentin 600 mg PO HS amLODIPine [Norvasc] 5 mg PO HS Enalapril [Vasotec] 20 mg PO DAILY@1600 Atorvastatin [Lipitor] 80 mg PO HS Digoxin [Digitek] 125 mcg PO DAILY I Bguard 1 tab PO DAILY@1600 Eye Vitamins 1 tab PO DAILY Cough Syrup 1 dose PO DAILY Cholecalciferol [Vitamin D3 (25 Mcg = 1000 Iu)] 1,000 unit PO DAILY Allergy Tab 1 tab PO DAILY PRN PRN Reason: Allergy Symptoms Discharge Medication List Pantoprazole Sodium [Protonix] 40 mg PO QAM 09/23/16 [History] Apixaban [Eliquis] 2.5 mg PO BID tablet 10/02/16 [Rx] Aspirin EC [Ecotrin Low Dose] 81 mg PO DAILY 11/05/16 [History] Fluticasone/Umeclidin/Vilanter [Trelegy Ellipta 100-62.5-25] 1 puff INHALATION RT-DAILY 04/19/20 [History] Levalbuterol HCl [Xopenex] 1.25 mg INHALATION RT-BID PRN 04/19/20 [History] Hydrocodone/Acetaminophen [[place] 5-325] 1 tab PO Q12HR PRN 4 Days #8 tab 04/21/20 [Rx] Lidocaine 5% Patch [Lidoderm 5% Patch] 1 patch TOPICAL DAILY #7 patch 04/21/20 [Rx] Nitroglycerin Sl Tabs [Nitrostat] 0.4 mg SUBLINGUAL Q5M PRN #20 tab 04/21/20 [Rx] ALPRAZolam [Xanax] 0.25 mg PO DAILY PRN 07/12/20 [History] Albuterol Nebulized [Ventolin Nebulized] 2.5 mg INHALATION RT-DAILY PRN 07/12/20 [History] Allergy Tab 1 tab PO DAILY PRN 07/12/20 [History] Atorvastatin [Lipitor] 80 mg PO HS 07/12/20 [History] Cholecalciferol [Vitamin D3 (25 Mcg = 1000 Iu)] 1,000 unit PO DAILY 07/12/20 [History] Cough Syrup 1 dose PO DAILY 07/12/20 [History] Digoxin [Digitek] 125 mcg PO DAILY 07/12/20 [History] Enalapril [Vasotec] 20 mg PO DAILY@1600 07/12/20 [History] Eye Vitamins 1 tab PO DAILY 07/12/20 [History] Gabapentin 300 mg PO DAILY 07/12/20 [History] Gabapentin 600 mg PO HS 07/12/20 [History] I Bguard 1 tab PO DAILY@1600 07/12/20 [History] L.acidoph,Paracasei, B.lactis [Probiotic] 1 cap PO DAILY 07/12/20 [History] Melatonin 10 mg PO HS 07/12/20 [History] PARoxetine [Paxil] 20 mg PO DAILY 07/12/20 [History] amLODIPine [Norvasc] 5 mg PO HS 07/12/20 [History] metFORMIN HCL [Glucophage] 500 mg PO DAILY@1600 07/12/20 [History] amLODIPine [Norvasc] 5 mg PO BID #60 tab 07/13/20 [Rx] Follow up Appointment(s)/Referral(s): Kaylie Ivey MD [Primary Care Provider] - 1-2 days Lazaro Lance MD [STAFF PHYSICIAN] - 07/31/20 3:30 pm (Pt already has an appt with Dr. Lance 07/31/2020.) Discharge Disposition: HOME SELF-CARE
[2020-07-13] MEDS ORDERED: amLODIPine 5 MG TAB PO SCH (21:00)
== END 2020-07-13 13:41 | disposition home or self-care (01) ==
LOC: EC 13:04 → 6NMEDSUR 14:53
PROVIDERS: ADMIT Internal Medicine; ATTEND Internal Medicine
DX: R07.89 Other chest pain (principal); I48.0 Paroxysmal atrial fibrillation; I11.0 Hypertensive heart disease with heart failure; I50.9 Heart failure, unspecified; J44.9 Chronic obstructive pulmonary disease, unspecified; I08.1 Rheumatic disorders of both mitral and tricuspid valves; I27.20 Pulmonary hypertension, unspecified; I49.3 Ventricular premature depolarization; J96.11 Chronic respiratory failure with hypoxia; M79.7 Fibromyalgia; E78.5 Hyperlipidemia, unspecified; K21.9 Gastro-esophageal reflux disease without esophagitis; M19.90 Unspecified osteoarthritis, unspecified site; F32.9 Major depressive disorder, single episode, unspecified; I73.00 Raynaud's syndrome without gangrene; K44.9 Diaphragmatic hernia without obstruction or gangrene; M54.9 Dorsalgia, unspecified; I73.9 Peripheral vascular disease, unspecified; I25.10 Atherosclerotic heart disease of native coronary artery without angina pectoris; M54.2 Cervicalgia; M51.16 Intervertebral disc disorders with radiculopathy, lumbar region; R42 Dizziness and giddiness; H35.30 Unspecified macular degeneration; S22.41XG Multiple fractures of ribs, right side, subsequent encounter for fracture with delayed healing; R91.8 Other nonspecific abnormal finding of lung field; G47.30 Sleep apnea, unspecified; Z79.82 Long term (current) use of aspirin; Z79.84 Long term (current) use of oral hypoglycemic drugs; Z79.51 Long term (current) use of inhaled steroids; Z79.899 Other long term (current) drug therapy; Z79.01 Long term (current) use of anticoagulants; Z86.73 Personal history of transient ischemic attack (TIA), and cerebral infarction without residual deficits; Z85.118 Personal history of other malignant neoplasm of bronchus and lung; Z86.14 Personal history of Methicillin resistant Staphylococcus aureus infection; Z92.3 Personal history of irradiation; Z95.5 Presence of coronary angioplasty implant and graft; Z87.891 Personal history of nicotine dependence; Z86.718 Personal history of other venous thrombosis and embolism; Z99.81 Dependence on supplemental oxygen; Z99.89 Dependence on other enabling machines and devices; Z86.19 Personal history of other infectious and parasitic diseases; Z87.01 Personal history of pneumonia (recurrent); Z87.81 Personal history of (healed) traumatic fracture; Z95.828 Presence of other vascular implants and grafts; Z90.49 Acquired absence of other specified parts of digestive tract; Z84.89 Family history of other specified conditions; Z82.49 Family history of ischemic heart disease and other diseases of the circulatory system; Z82.5 Family history of asthma and other chronic lower respiratory diseases; Z80.9 Family history of malignant neoplasm, unspecified
CPT/HCPCS: 93005 ×2; 99285; 36415; 80061; 80053 ×2; 84443; 83735; 84484; 85025 ×2; 85610; 85730; 87635; 71046; G0378 ×2

== ENCOUNTER → 2020-07-13 | Outpatient (CLI) | payer MEDICARE, OTHER ==
--- NOTE | 2020-07-13 14:40 | CT ---
EXAMINATION TYPE: CT lumbar spine wo con DATE OF EXAM: 07/13/2020 2:20 PM COMPARISON: None HISTORY: chronic low back pain CT DLP: 379.8 mGycm Automated exposure control for dose reduction was used. Unenhanced CT of the lumbar spine was performed. Bone and soft tissue window settings are submitted as well as coronal and sagittal reconstructions. L1-L2: Normal disc space height. No disc herniation protrusion or central stenosis. No facet joint arthropathy. No evidence for foraminal encroachment. L2-L3: Normal disc space height. No disc herniation protrusion or central stenosis. No facet joint arthropathy. No evidence for foraminal encroachment. L3-L4: Normal disc space height. No disc herniation protrusion or central stenosis. No facet joint arthropathy. No evidence for foraminal encroachment. L4-L5: Moderate degenerative disc space narrowing. Grade 1 anterolisthesis L4 and L5 measuring 4.5 mm . Severe facet joint arthropathy. Distortion of the thecal sac with mild central stenosis. Moderate d isc bulging. Mild bilateral foraminal encroachment. L5-S1: Severe degenerative disc disease. Vacuum disc noted. Posterior disc bulge. Mild effacement lor tral thecal sac. Left foraminal encroachment. IMPRESSION: Degenerative disc disease with mild central stenosis L4-5.
--- NOTE | 2020-07-13 14:44 | XR ---
EXAMINATION TYPE: XR Hip Bilateral Complete DATE OF EXAM: 07/13/2020 CLINICAL HISTORY: pain TECHNIQUE: AP and frogleg views of the bilateral hips are obtained. COMPARISON: None. FINDINGS: There is no acute fracture/dislocation evident. The joint space appears severely narrowe d. The overlying soft tissue appears unremarkable. IMPRESSION: 1. There is no acute fracture or dislocation. ICD 10 NO FRACTURE, INITIAL EVALUATION
== END | disposition home or self-care (01) ==
LOC: RADCTMAIN 13:44
PROVIDERS: ATTEND Internal Medicine
DX: M48.061 Spinal stenosis, lumbar region without neurogenic claudication (principal); M51.16 Intervertebral disc disorders with radiculopathy, lumbar region; M25.551 Pain in right hip; M25.552 Pain in left hip
CPT/HCPCS: 72131; 73521

== ENCOUNTER 2020-08-04 11:16 | Inpatient (IN) | payer MEDICARE, OTHER ==
--- NOTE | 2020-08-04 11:38 | ED ---
General Adult HPI - General Chief complaint: Weakness Stated complaint: weakness Time Seen by Provider: 08/04/20 11:29 Source: patient, EMS, RN notes reviewed, old records reviewed Mode of arrival: EMS Limitations: no limitations - History of Present Illness Initial comments: 80-year-old female presenting with generalized weakness, near syncope. Patient states that at home she has measured her blood pressure and heart rate and these have both been very low. She states that she had had a medication change within the last week. She is uncertain of exactly what medication she is currently on. She has no central chest pain currently. She states that earlier today she did have a vague lower chest discomfort which did not last very long. No associated abdominal pain nausea vomiting or diaphoresis. No fever or chills. No cough no dyspnea. She states she has been eating and drinking well. No focal numbness or weakness. No headache. - Related Data Home Medications Medication Instructions Recorded Confirmed Pantoprazole Sodium [Protonix] 40 mg PO QAM 09/23/16 08/04/20 Fluticasone/Umeclidin/Vilanter 1 puff INHALATION RT-DAILY 04/19/20 08/04/20 [Trelegy Ellipta 100-62.5-25] ALPRAZolam [Xanax] 0.25 mg PO Q8H PRN 07/12/20 08/04/20 Atorvastatin [Lipitor] 80 mg PO HS 07/12/20 08/04/20 Cholecalciferol [Vitamin D3 (25 1,000 unit PO W/SUPPER 07/12/20 08/04/20 Mcg = 1000 Iu)] Digoxin [Digitek] 125 mcg PO DAILY 07/12/20 08/04/20 Enalapril [Vasotec] 10 mg PO BID 07/12/20 08/04/20 Gabapentin 300 mg PO BID 07/12/20 08/04/20 Gabapentin 600 mg PO HS 07/12/20 08/04/20 L.acidoph,Paracasei, B.lactis 1 cap PO DAILY 07/12/20 08/04/20 [Probiotic] PARoxetine [Paxil] 20 mg PO DAILY 07/12/20 08/04/20 metFORMIN HCL [Glucophage] 500 mg PO DAILY 07/12/20 08/04/20 Albuterol Sulfate [Proventil Hfa] 2 puff INHALATION RT-Q6H PRN 08/04/20 08/04/20 Cyanocobalamin (Vitamin B-12) 1,000 mcg PO DAILY 08/04/20 08/04/20 [Vitamin B-12] Diltiazem HCl 120 mg PO BID 08/04/20 08/04/20 Docusate [Colace] 100 mg PO DAILY PRN 08/04/20 08/04/20 Lidocaine 5% Patch [Lidoderm 5% 1 patch TOPICAL DAILY PRN 08/04/20 08/04/20 Patch] busPIRone HCl [Buspar] 5 mg PO TID 08/04/20 08/04/20 tiZANidine HCL 2 mg PO BID 08/04/20 08/04/20 Previous Rx's Medication Instructions Recorded Apixaban [Eliquis] 2.5 mg PO BID tablet 10/02/16 Nitroglycerin Sl Tabs [Nitrostat] 0.4 mg SUBLINGUAL Q5M PRN #20 tab 04/21/20 amLODIPine [Norvasc] 5 mg PO BID #60 tab 07/13/20 Allergies Allergy/AdvReac Type Severity Reaction Status Date / Time No Known Allergies Allergy Verified 08/04/20 13:00 Review of Systems ROS Statement: Those systems with pertinent positive or pertinent negative responses have been documented in the HPI. ROS Other: All systems not noted in ROS Statement are negative. Past Medical History Past Medical History: Atrial Fibrillation, Cancer, Heart Failure, COPD, CVA/TIA, Diabetes Mellitus, Deep Vein Thrombosis (DVT), Fibromyalgia, GERD/Reflux, Hyperlipidemia, Hypertension, Osteoarthritis (OA), Pneumonia, Sleep Apnea/CPAP/BIPAP, Vascular Disorder Additional Past Medical History / Comment(s): back pain , lung cancer-radiation opnly, HOME 02 2 LITERS [place], BLOOD CLOT AFTER SX, CVA LT SIDE AFFECTED SINCE RESOLVED, HIATAL HERNIA. SHINGLES 30 YEARS AGO, DOES'NT USE CPAP MACHINE.in past for short period of time took oral meds for dm-then taken off meds-pt stated not considered diabetic now but occ will check bs., macular degeneration.past broken rt leg and lt wrist. Raynauds. Pt currently has 3 fractured ribs on the right that she has "had for years and will not heal". History of Any Multi-Drug Resistant Organisms: MRSA Date of last positivie culture/infection: 09/25/16 MDRO Source:: BRONCH WASH Past Surgical History: Cholecystectomy, Heart Catheterization With Stent, Orthopedic Surgery Additional Past Surgical History / Comment(s): rt leg repaired after break-has pins, lt wrist-plate and screws. lung bx, stents tung groins. Past Anesthesia/Blood Transfusion Reactions: Family History of Problems w/ An esthesia Additional Past Anesthesia/Blood Transfusion Reaction / Comment(s): daughter has diff waking after aa Date of Last Stent Placement:: unk Past Psychological History: Depression Smoking Status: Former smoker Past Alcohol Use History: None Reported, Rare Past Drug Use History: None Reported - Past Family History Father Family Medical History: Congestive Heart Failure (CHF), COPD Additional Family Medical History / Comment(s): emphysema Mother Family Medical History: Cancer General Exam Limitations: no limitations General appearance: alert, in no apparent distress Head exam: Present: atraumatic, normocephalic Eye exam: Present: normal appearance, PERRL ENT exam: Present: normal exam Neck exam: Present: normal inspection. Absent: tenderness, meningismus Respiratory exam: Present: normal lung sounds bilaterally. Absent: respiratory distress, wheezes Cardiovascular Exam: Present: normal rhythm, bradycardia GI/Abdominal exam: Present: soft. Absent: distended, tenderness, guarding, rebound Extremities exam: Present: normal inspection, normal capillary refill. Absent: pedal edema Neurological exam: Present: alert, oriented X3, CN II-XII intact. Absent: motor sensory deficit Psychiatric exam: Present: normal affect, normal mood Skin exam: Present: warm, dry, intact. Absent: cyanosis, diaphoretic Course Vital Signs 08/04/20 08/04/20 08/04/20 11:21 11:34 12:18 Temperature 97.5 F L Pulse Rate 47 L 43 L Pulse Rate [ 46 L Director Blood Bank ] Respiratory 18 18 Rate Blood Pressure 149/63 138/57 O2 Sat by Pulse 97 97 Oximetry 08/04/20 12:22 Temperature Pulse Rate 57 L Pulse Rate [ Director Blood Bank ] Respiratory Rate Blood Pressure O2 Sat by Pulse Oximetry EKG Findings - EKG Comments: EKG Findings:: EKG: Sinus bradycardia, rate of 47, ID interval 202, QRS duration 80, QTC 396, no ST segment elevation. Medical Decision Making - Medical Decision Making 80-year-old female, near syncope, bradycardia and hypotension. Patient is running around 40 bpm with history of atrial fibrillation. Blood pressure remained stable while the emergency department. Patient will be kept for monitoring, including telemetry. Case discussed with Dr. Ivey who will admit. Patient has normal CBC, normal CMP, negative troponin, normal electrolytes. Patient chest x-ray showing a right sixth rib fracture, no focal pneumonia, no pneumothorax. - Lab Data Result diagrams: 08/04/20 12:10 08/04/20 12:10 Lab Results 08/04/20 08/04/20 08/04/20 Range/Units 12:10 12:10 12:10 WBC 8.3 (3.8-10.6) k/uL RBC 3.83 (3.80-5.40) m/uL Hgb 11.7 (11.4-16.0) gm/dL Hct 33.7 L (34.0-46.0) % MCV 88.1 (80.0-100.0) fL MCH 30.7 (25.0-35.0) pg MCHC 34.8 (31.0-37.0) g/dL RDW 12.7 (11.5-15.5) % Plt Count 183 (150-450) k/uL MPV 8.2 Neutrophils % 73 % Lymphocytes % 18 % Monocytes % 5 % Eosinophils % 2 % Basophils % 1 % Neutrophils # 6.1 (1.3-7.7) k/uL Lymphocytes # 1.5 (1.0-4.8) k/uL Monocytes # 0.4 (0-1.0) k/uL Eosinophils # 0.2 (0-0.7) k/uL Basophils # 0.1 (0-0.2) k/uL PT 11.2 (9.0-12.0) sec INR 1.1 (<1.2) APTT 22.2 (22.0-30.0) sec Sodium 135 L (137-145) mmol/L Potassium 4.3 (3.5-5.1) mmol/L Chloride 97 L (98-107) mmol/L Carbon Dioxide 32 H (22-30) mmol/L Anion Gap 6 mmol/L BUN 14 (7-17) mg/dL Creatinine 0.72 (0.52-1.04) mg/dL Est GFR (CKD-EPI)AfAm >90 (>60 ml/min/1.73 sqM) Est GFR (CKD-EPI)NonAf 80 (>60 ml/min/1.73 sqM) Glucose 174 H (74-99) mg/dL Plasma Lactic Acid Imer (0.7-2.0) mmol/L Calcium 9.3 (8.4-10.2) mg/dL Magnesium 1.8 (1.6-2.3) mg/dL Total Bilirubin 0.6 (0.2-1.3) mg/dL AST 28 (14-36) U/L ALT 22 (4-34) U/L Alkaline Phosphatase 83 (38-126) U/L Troponin I (0.000-0.034) ng/mL NT-Pro-B Natriuret Pep pg/mL Total Protein 6.1 L (6.3-8.2) g/dL Albumin 3.9 (3.5-5.0) g/dL 08/04/20 08/04/20 08/04/20 Range/Units 12:10 12:10 12:10 WBC (3.8-10.6) k/uL RBC (3.80-5.40) m/uL Hgb (11.4-16.0) gm/dL Hct (34.0-46.0) % MCV (80.0-100.0) fL MCH (25.0-35.0) pg MCHC (31.0-37.0) g/dL RDW (11.5-15.5) % Plt Count (150-450) k/uL MPV Neutrophils % % Lymphocytes % % Monocytes % % Eosinophils % % Basophils % % Neutrophils # (1.3-7.7) k/uL Lymphocytes # (1.0-4.8) k/uL Monocytes # (0-1.0) k/uL Eosinophils # (0-0.7) k/uL Basophils # (0-0.2) k/uL PT (9.0-12.0) sec INR (<1.2) APTT (22.0-30.0) sec Sodium (137-145) mmol/L Potassium (3.5-5.1) mmol/L Chloride (98-107) mmol/L Carbon Dioxide (22-30) mmol/L Anion Gap mmol/L BUN (7-17) mg/dL Creatinine (0.52-1.04) mg/dL Est GFR (CKD-EPI)AfAm (>60 ml/min/1.73 sqM) Est GFR (CKD-EPI)NonAf (>60 ml/min/1.73 sqM) Glucose (74-99) mg/dL Plasma Lactic Acid Imer 1.9 (0.7-2.0) mmol/L Calcium (8.4-10.2) mg/dL Magnesium (1.6-2.3) mg/dL Total Bilirubin (0.2-1.3) mg/dL AST (14-36) U/L ALT (4-34) U/L Alkaline Phosphatase (38-126) U/L Troponin I <0.012 (0.000-0.034) ng/mL NT-Pro-B Natriuret Pep 292 pg/mL Total Protein (6.3-8.2) g/dL Albumin (3.5-5.0) g/dL Disposition Clinical Impression: Near syncope, Bradycardia Disposition: ADMITTED IP TO THIS HOSP Condition: Stable Is patient prescribed a controlled substance at d/c from ED?: No Referrals: Kaylie Ivey MD [Primary Care Provider] - 1-2 days Decision to Admit Reason: Admit from EC Decision Date: 08/04/20 Decision Time: 13:30
[2020-08-04 12:11] LABS: Basophils # (A) 0.1 k/uL (0-0.2); Basophils % (A) 1 %; Eosinophils # (A) 0.2 k/uL (0-0.7); Eosinophils % (A) 2 %; HCT 33.7 % (34.0-46.0); HGB 11.7 gm/dL (11.4-16.0); Lymphocytes # (A) 1.5 k/uL (1.0-4.8); Lymphocytes % (A) 18 %; MCH 30.7 pg (25.0-35.0); MCHC 34.8 g/dL (31.0-37.0); MCV 88.1 fL (80.0-100.0); Mean Platelet Volume 8.2; Monocytes # (A) 0.4 k/uL (0-1.0); Monocytes % (A) 5 %; Neutrophils # (A) 6.1 k/uL (1.3-7.7); Neutrophils % (A) 73 %; Platelet Count 183 k/uL (150-450); RBC 3.83 m/uL (3.80-5.40); RDW 12.7 % (11.5-15.5); WBC 8.3 k/uL (3.8-10.6)
[2020-08-04 12:19] LABS: INR 1.1 (<1.2); Partial Thromboplastin Time 22.2 sec (22.0-30.0); Prothrombin Time 11.2 sec (9.0-12.0)
[2020-08-04 12:22] LABS: ALT 22 U/L (4-34); AST 28 U/L (14-36); African American GFR (CKD) >90 (>60 ml/min/1.73 sqM); Albumin 3.9 g/dL (3.5-5.0); Alkaline Phosphatase 83 U/L (38-126); Anion Gap 6 mmol/L; Blood Urea Nitrogen 14 mg/dL (7-17); Calcium 9.3 mg/dL (8.4-10.2); Carbon Dioxide 32 mmol/L (22-30); Chloride 97 mmol/L (98-107); Glucose 174 mg/dL (74-99); Magnesium 1.8 mg/dL (1.6-2.3); Non-African American GFR(CKD) 80 (>60 ml/min/1.73 sqM); Potassium 4.3 mmol/L (3.5-5.1); Sodium 135 mmol/L (137-145); Total Bilirubin 0.6 mg/dL (0.2-1.3); Total Protein 6.1 g/dL (6.3-8.2)
--- NOTE | 2020-08-04 13:00 | XR ---
EXAMINATION TYPE: XR chest 2V DATE OF EXAM: 08/04/2020 COMPARISON: 07/12/2020 HISTORY: Weakness TECHNIQUE: Frontal and lateral views of the chest are obtained. FINDINGS: The lungs are clear of consolidative, interstitial masslike opacity. There is a tiny right pleural effusion. There is no pneumothorax. Heart, pulmonary vasculature, mediastinum and hilum appear normal. There is displaced posterolateral right sixth rib fracture which was seen previously and is stable. IMPRESSION: Tiny right pleural effusion and right sixth rib fracture which was seen previously.
[2020-08-04] MEDS ORDERED: NALOXONE 0.4 MG/ML 1 ML VIAL IV PRN (13:26)
[2020-08-04] MEDS: SODIUM CHLORIDE 0.9% 1,000 ML IV SCH (14:13)
[2020-08-04] MEDS ORDERED: DOCUSATE 100 MG CAP PO PRN (16:11)
[2020-08-04] MEDS ORDERED: ALBUTEROL NEBULIZED 2.5 MG/3 ML INHALATION PRN (16:11)
[2020-08-04] MEDS ORDERED: NITROGLYCERIN SL TABS 0.4 MG TAB SUBLINGUAL PRN (16:11)
--- NOTE | 2020-08-04 16:29 | P.HPIM ---
History of Present Illness H&P Date: 08/04/20 80 years old female who I have seen in the clinic for the first time last month with past medical history of chronic hypoxic failure and COPD on 2 L of oxygen with exertion and at bedtime coronary artery disease with multivessel stenting, peripheral artery disease with previous stenting, history of non-small cell lung cancer status post radiation with possible reccurrence with new lesion in the right middle lobe 8 X 4 mm in size with negative bone scan follows Dr. Patel as outpatient, chronic fibromyalgia chronic nicotine dependence ex-smoker, degenerative joint disease, Raynaud's, chronically fractured 3 ribs on the right that has not healed the years, hypertension, hyperlipidemia and paroxysmal atrial fibrillation with last HUE with cardioversion in [address] Rodriguez as outpatient last admitted for A. fib with RVR on 07/12/2020 comes in with sinus bradycardia with hypotension. Apparently patient has been switched from Cardizem to Norvasc in February which led to worsening of her atrial fibrillation leading to admission in June. Patient was seen post hospitalization and was found to be in A. fib with RVR. Norvasc was discontinued and patient was placed on Cardizem. Patient was thought to be taking 180 mg at home and therefore Cardizem was increased to 120 mg twice a day. Patient has been taking Cardizem for the past 1 week and started noticing dizziness and generalized weakness. Patient's vitals in the ER suggestive heart rate of 43 on his EKG appears to be sinus bradycardia no apron blocks noted. Patient will be kept on telemetry. Blood pressure 186/74 on admission and improved to 156/62 with improvement of HR to 60 / min . Diltiazem will be started at a low dose of 30 mg 3 times a day. Digoxin level will be ordered. Cardiology consultation Review of Systems Constitutional: Denies chills, Denies fever, endorses lethargy, endorses malaise, Denies poor appetite, Denies weakness, Denies weight loss endorses di zziness Eyes: denies decreased vision, denies diplopia, denies discharge, denies pain Ears: deny: decreased hearing Ears, nose, mouth and throat: Denies dental pain, Denies headache, Denies nasal discharge, Denies nose pain Cardiovascular: Denies chest pain, Denies decreased exercise tolerance, Denies edema, Denies high blood pressure, Denies irregular heart beat, Denies palpitations, Denies paroxysmal nocturnal dyspnea, Denies rapid heart beat, Denies shortness of breath Respiratory: Denies congestion, Denies cough, Denies cough with sputum, Denies dyspnea, Denies home oxygen, Denies wheezing Gastrointestinal: Denies abdominal pain, Denies change in bowel habits, Denies coffee ground emesis, Denies early satiety, Denies excessive gas, Denies heartburn, Denies hematemesis, Denies hematochezia, Denies loss of appetite, Denies nausea, Denies vomiting Genitourinary: Denies dysuria, Denies flank pain, Denies kidney stones, Denies menorrhagia, Denies urgency, Denies urinary frequency Musculoskeletal: Denies gait dysfunction, Denies limitation of motion, Denies morning stiffness, Denies muscle cramps Integumentary: Denies rash, Denies wounds, Denies brittle nails, Denies change in hair/nails, Denies darkening of skin Neurological: Endorses balance difficulties, Denies change in speech, Denies double vision, Denies gait dysfunction, Denies loss of vision, Denies motor disturbance, Denies numbness, Denies paralysis, Denies paresthesias, Denies seizures Psychiatric: Denies anxiety, Denies depression Endocrine: Denies excessive sweating, Denies excessive thirst, Denies high blood sugars, Denies palpitations Hematologic/Lymphatic: Denies easy bruising, Denies lymphadenopathy Past Medical History Past Medical History: Atrial Fibrillation, Cancer, Heart Failure, COPD, CVA/TIA, Diabetes Mellitus, Deep Vein Thrombosis (DVT), Fibromyalgia, GERD/Reflux, Hyperlipidemia, Hypertension, Osteoarthritis (OA), Pneumonia, Sleep Apnea/CPAP/BIPAP, Vascular Disorder Additional Past Medical History / Comment(s): back pain , lung cancer-radiation opnly, HOME 02 2 LITERS [place], BLOOD CLOT AFTER SX, CVA LT SIDE AFFECTED SINCE RESOLVED, HIATAL HERNIA. SHINGLES 30 YEARS AGO, DOES'NT USE CPAP MACHINE.in past for short period of time took oral meds for dm-then taken off meds-pt stated not considered diabetic now but occ will check bs., macular degeneration.past broken rt leg and lt wrist. Raynauds. Pt currently has 3 fractured ribs on the right that she has "had for years and will not heal". History of Any Multi-Drug Resistant Organisms: MRSA Date of last positivie culture/infection: 09/25/16 MDRO Source:: BRONCH WASH Past Surgical History: Cholecystectomy, Heart Catheterization With Stent, Orthopedic Surgery Additional Past Surgical History / Comment(s): rt leg repaired after break-has pins, lt wrist-plate and screws. lung bx, stents tung groins. Past Anesthesia/Blood Transfusion Reactions: Family History of Problems w/ Anesthesia Additional Past Anesthesia/Blood Transfusion Reaction / Comment(s): daughter has diff waking after aa Date of Last Stent Placement:: unk Past Psychological History: Depression Additional Psychological History / Comment(s): pt [place] between [place] and [place]. does'nt drive-either daughters or sister takes her places. has home 02, nebulizer. . Ongoing tobacco smoker stopping just may 2016. Has a history of lung cancer with radiation. Smoking Status: Former smoker Past Alcohol Use History: None Reported, Rare Additional Past Alcohol Use History / Comment(s): started smopking at age [age]), quit 2016 Past Drug Use History: None Reported - Past Family History Father Family Medical History: Congestive Heart Failure (CHF), COPD Additional Family Medical History / Comment(s): emphysema Mother Family Medical History: Cancer Medications and Allergies Home Medications Medication Instructions Recorded Confirmed Type Pantoprazole Sodium [Protonix] 40 mg PO QAM 09/23/16 08/04/20 History Apixaban [Eliquis] 2.5 mg PO BID tablet 10/02/16 08/04/20 Rx Fluticasone/Umeclidin/Vilanter 1 puff INHALATION RT-DAILY 04/19/20 08/04/20 History [Trelegy Ellipta 100-62.5-25] Nitroglycerin Sl Tabs [Nitrostat] 0.4 mg SUBLINGUAL Q5M PRN #20 tab 04/21/20 08/04/20 Rx ALPRAZolam [Xanax] 0.25 mg PO Q8H PRN 07/12/20 08/04/20 History Atorvastatin [Lipitor] 80 mg PO HS 07/12/20 08/04/20 History Cholecalciferol [Vitamin D3 (25 1,000 unit PO W/SUPPER 07/12/20 08/04/20 History Mcg = 1000 Iu)] Digoxin [Digitek] 125 mcg PO DAILY 07/12/20 08/04/20 History Enalapril [Vasotec] 10 mg PO BID 07/12/20 08/04/20 History Gabapentin 300 mg PO BID 07/12/20 08/04/20 History Gabapentin 600 mg PO HS 07/12/20 08/04/20 History L.acidoph,Paracasei, B.lactis 1 cap PO DAILY 07/12/20 08/04/20 History [Probiotic] PARoxetine [Paxil] 20 mg PO DAILY 07/12/20 08/04/20 History metFORMIN HCL [Glucophage] 500 mg PO DAILY 07/12/20 08/04/20 History amLODIPine [Norvasc] 5 mg PO BID #60 tab 07/13/20 08/04/20 Rx Albuterol Sulfate [Proventil Hfa] 2 puff INHALATION RT-Q6H PRN 08/04/20 08/04/20 History Cyanocobalamin (Vitamin B-12) 1,000 mcg PO DAILY 08/04/20 08/04/20 History [Vitamin B-12] Diltiazem HCl 120 mg PO BID 08/04/20 08/04/20 History Docusate [Colace] 100 mg PO DAILY PRN 08/04/20 08/04/20 History Lidocaine 5% Patch [Lidoderm 5% 1 patch TOPICAL DAILY PRN 08/04/20 08/04/20 History Patch] busPIRone HCl [Buspar] 5 mg PO TID 08/04/20 08/04/20 History tiZANidine HCL 2 mg PO BID 08/04/20 08/04/20 History Allergies Allergy/AdvReac Type Severity Reaction Status Date / Time No Known Allergies Allergy Verified 08/04/20 13:00 Physical Exam Vitals: Vital Signs Temp Pulse Pulse Resp BP BP Pulse Ox 08/04/20 15:04 97.8 F 60 18 174/54 99 08/04/20 14:12 53 L 16 156/62 99 08/04/20 14:00 48 L 08/04/20 12:22 57 L 08/04/20 12:18 43 L 18 138/57 97 08/04/20 11:34 46 L 08/04/20 11:21 97.5 F L 47 L 18 149/63 97 Intake and Output 08/04/20 08/04/2021 06:59 14:59 22:59 Other: # Voids 1 Weight 54.431 kg 54.4 kg - Constitutional General appearance: cooperative, no acute distress, thin fragile - EENT Eyes: anicteric sclerae, PERRLA, normal appearance ENT: hearing grossly normal - Neck Neck: no lymphadenopathy, normal ROM, no other, no rigidity, no stridor, no thyromegaly - Respiratory Respiratory: bilateral: CTA, negative: diminished, dullness, rales, rhonchi - Cardiovascular Rhythm: regular Heart sounds: normal: S1, S2 Abnormal Heart Sounds: no systolic murmur, no diastolic murmur, no rub, no S3 Ga llop, no S4 Gallop, no click, no other - Gastrointestinal General gastrointestinal: normal bowel sounds, soft - Integumentary Integumentary: no rash - Neurologic Neurologic: CNII-XII intact - Musculoskeletal Musculoskeletal: gait normal, strength equal bilaterally - Psychiatric Psychiatric: A&O x's 3, appropriate affect Results CBC & Chem 7: 08/04/20 12:10 08/04/20 12:10 Labs: Abnormal Lab Results - Last 24 Hours (Table) 08/04/20 08/04/20 Range/Units 12:10 12:10 Hct 33.7 L (34.0-46.0) % Sodium 135 L (137-145) mmol/L Chloride 97 L (98-107) mmol/L Carbon Dioxide 32 H (22-30) mmol/L Glucose 174 H (74-99) mg/dL Total Protein 6.1 L (6.3-8.2) g/dL Thrombosis Risk Factor Assmnt - DVT/VTE Prophylaxis DVT/VTE Prophylaxis: Pharmacologic Prophylaxis ordered - Choose All That Apply Each Factor Represents 1 point: Abnormal pulmonary function (COPD) Other Risk Factors: Yes Each Risk Factor Represents 3 Points: Age 75 years or older Other congenital or acquired thrombophilia - If yes, enter type in comment: No Thrombosis Risk Factor Assessment Total Risk Factor Score: 4 Thrombosis Risk Factor Assessment Level: Moderate Risk Assessment and Plan Plan: #1 presyncope secondary to bradycardia and hypotension EKG suggest sinus bradycardia with improved blood pressure continue telemetry EKG does have some nonspecific ST-T wave changes troponin every 3 hours 3. Cardiology consult placed. Digitoxin level ordered #2 paroxysmal atrial fibrillation currently in normal sinus rhythm. Continue eliquis 2.5 mg twice a day continue digoxin 125 g by mouth daily patient not on beta javier Norvasc discontinued and in the last admission. Cardizem initiated at 30 mg 3 times a day. Telemetry with no blocks. #3 right middle lobe lung density 18-4 mm scarlike opacity versus pigmented did not do. Bone scan has been negative. Patient follows oncology Dr. Patel as outpatient. #4 hypertension on vasotec at home , started on [id number] mg by mouth daily Cardiology to see patient tomorrow #5 hyperlipidemia continue atorvastatin 80 mg daily at bedtime #6 degenerative disc disease and lumbar radiculopathy continue gabapentin 600 mg daily at bedtime and 300 mg by mouth daily with [place] 5 every 12 when lidocaine patch daily #7 coronary artery disease status post stenting continue aspirin, digoxin, atorvastatin #8. peripheral artery diseasestatus post stenting on aspirin #9 history of sleep apnea but patient does not wear CPAP at night #10 history of COPD/chronic hypoxic respiratory failure on 2 L off oxygen continue new albuterol as needed #11 history of non-small cell lung cancer status post radiation follows Dr. Patel, as outpatient #12 history of CVA/TIA with left-sided weakness, resolved #13 history of DVT postsurgical resolved #14 fibromyalgia stable #15 history of GERD continue pantoprazole 40 mg by mouth daily #16 history of Anxiety an d depression continue Paxil 20 mg by mouth daily. 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
[2020-08-04] MEDS: busPIRone HCl 5 MG TAB PO SCH (21:32)
[2020-08-04] MEDS: APIXABAN 2.5 MG TABLET PO SCH (21:32)
[2020-08-04] MEDS: ATORVASTATIN 80 MG TAB PO SCH (21:32)
[2020-08-04] MEDS: GABAPENTIN 300 MG CAP PO SCH ×2 (21:32→21:33)
[2020-08-04] MEDS: DILTIAZEM ORAL 30 MG TAB PO SCH (21:32)
[2020-08-05] MEDS: LIDOCAINE 5% PATCH TOPICAL PRN (03:02)
[2020-08-05] MEDS: APIXABAN 2.5 MG TABLET PO SCH ×2 (07:55→19:55)
[2020-08-05] MEDS: PARoxetine 20 MG TAB PO SCH (07:55)
[2020-08-05] MEDS: GABAPENTIN 300 MG CAP PO SCH ×3 (07:55→19:56)
[2020-08-05] MEDS: lisinopriL 20 MG TAB PO SCH (07:55)
[2020-08-05] MEDS: DILTIAZEM ORAL 30 MG TAB PO SCH ×2 (07:55→08:03)
[2020-08-05] MEDS: busPIRone HCl 5 MG TAB PO SCH ×3 (07:55→21:45)
[2020-08-05] MEDS: metFORMIN 500 MG TAB PO SCH (07:56)
[2020-08-05] MEDS: PANTOPRAZOLE 40 MG TABLET PO SCH (07:56)
[2020-08-05] MEDS: SODIUM CHLORIDE 0.9% 1,000 ML IV SCH (07:57)
[2020-08-05] MEDS: ACETAMINOPHEN TAB 325 MG TAB PO PRN (08:07)
[2020-08-05 08:44] LABS: Glucose,Whole Blood 274 mg/dL (75-99)
--- NOTE | 2020-08-05 09:33 | CT ---
EXAMINATION TYPE: CT brain wo con for TPA DATE OF EXAM: 08/05/2020 COMPARISON: 11/01/2016 HISTORY: Code Stroke CT DLP: 1090.4 mGycm Automated exposure control for dose reduction was used. FINDINGS: The ventricles, basal cisterns and sulci over the convexities are moderately enlarged consistent with moderate generalized degenerative change. There is diffuse decreased density in the periventricular white matter of both cerebral hemispheres c onsistent with ischemic demyelination. There is no mass, mass effect or shift of the midline structures. There is no acute intra or extra-axial hemorrhage. The posterior fossa, including the brainstem, fourth ventricle and cerebellar pontine angles are radha sly normal. The intraorbital contents appear normal and symmetric. Visualized paranasal sinuses and mastoid air c ells are well aerated IMPRESSION: No acute bleed or mass effect. Senescent changes as described above.. There is been no interval fu e since the study of 11/01/2016.
[2020-08-05 09:38] LABS: Basophils % (A) 1 %; Eosinophils # (A) 0.2 k/uL (0-0.7); Eosinophils % (A) 3 %; HCT 35.4 % (34.0-46.0); HGB 11.7 gm/dL (11.4-16.0); Lymphocytes # (A) 1.4 k/uL (1.0-4.8); Lymphocytes % (A) 24 %; MCH 29.4 pg (25.0-35.0); MCHC 33.1 g/dL (31.0-37.0); MCV 88.9 fL (80.0-100.0); Mean Platelet Volume 8.6; Monocytes # (A) 0.5 k/uL (0-1.0); Monocytes % (A) 8 %; Neutrophils # (A) 3.8 k/uL (1.3-7.7); Neutrophils % (A) 63 %; Platelet Count 180 k/uL (150-450); RBC 3.98 m/uL (3.80-5.40); RDW 12.7 % (11.5-15.5)
[2020-08-05] MEDS ORDERED: hydrALAZINE HCL 20 MG/ML 1 ML VIAL IVP PRN (09:45)
[2020-08-05 09:54] LABS: INR 1.1 (<1.2); Partial Thromboplastin Time 23.1 sec (22.0-30.0); Prothrombin Time 11.5 sec (9.0-12.0)
--- NOTE | 2020-08-05 10:04 | CT ---
EXAMINATION TYPE: CT angio head neck DATE OF EXAM: 08/05/2020 HISTORY: Code Stroke COMPARISON: None CT DLP: 222.4 mGycm. Automated Exposure Control for Dose Reduction was Utilized. TECHNIQUE: CTA scan of the neck is performed with IV Contrast, patient injected with 65 mL of Isovue 370, axial images are obtained, coronal and sagittal reformatted images are reviewed. Three-D recons tructed images are created on an independent workstation and reviewed. FINDINGS: The brachiocephalic origins are widely patent. The right common and internal carotid arteries within the neck are widely patent. There is is a heavi ly calcified plaque at the origin left internal carotid artery resulting in a moderate stenosis. Intracranially, there is no significant stenosis or branch occlusion in the anterior or posterior cir culation. There are no sizable aneurysm sac vascular malformation intracranially. IMPRESSION: 1. Moderate stenosis of the origin of the left internal carotid artery in the neck secondary to calci fied plaque. 2. No significant abnormality of the arterial circulation intracranially..
[2020-08-05 10:15] LABS: Creatine Kinase 48 U/L (30-135)
[2020-08-05 10:16] LABS: ALT 22 U/L (4-34); AST 23 U/L (14-36); African American GFR (CKD) >90 (>60 ml/min/1.73 sqM); Albumin 3.3 g/dL (3.5-5.0); Albumin/Globulin Ratio 1.5; Alkaline Phosphatase 70 U/L (38-126); Anion Gap 8 mmol/L; Blood Urea Nitrogen 12 mg/dL (7-17); Carbon Dioxide 29 mmol/L (22-30); Chloride 97 mmol/L (98-107); Globulin 2.2 g/dL; Glucose 281 mg/dL (74-99); Non-African American GFR(CKD) 83 (>60 ml/min/1.73 sqM); Potassium 4.3 mmol/L (3.5-5.1); Sodium 134 mmol/L (137-145); Total Bilirubin 0.4 mg/dL (0.2-1.3); Total Protein 5.5 g/dL (6.3-8.2)
[2020-08-05 10:27] LABS: Creatine Kinase MB 0.7 ng/mL (0.0-2.4); Troponin I <0.012 ng/mL (0.000-0.034)
[2020-08-05 12:27] LABS: Glucose,Whole Blood 169 mg/dL (75-99)
--- NOTE | 2020-08-05 13:15 | P.CRDCN ---
History of Present Illness Consult date: 08/05/20 History of present illness: HISTORY OF PRESENTING ILLNESS This is a pleasant 80-year-old female past medical history significant for coronary artery disease status post PCI, paroxysmal atrial fibrillation on long-term anticoagulation, hypertension, dyslipidemia, valvular heart disease and COPD. She follows in the office with Dr. Lance. Apparently back in February she had a change off Cardizem and started Norvasc. She was subsequently seen in the hospital on July 13 and recommended to increase Norvasc to 5 mg twice daily. She was then seen in the office with Dr. colbert in her blood pressure was extremely high and the Norvasc was discontinued and she was started on Cardizem at 120 mg twice daily which she took for one week. Now she complains that her heart rate was low in the 30s and blood pressure was low at home. Patient presented to [facility] emergency center or heart rate was found to be in the 40s. EKG was sinus bradycardia at 47. Troponins negative on 2 draws. Digoxin level I.5, potassium 4.3. Patient was placed on the observation unit and while up there this morning at around 8:30 she had an episode where she became very weak and shaky and had tremors in her hands. This most bilaterally. She felt like she was going to pass out. Prior to this episode she had a run of V. tach 12 beats. During this episode her blood pressure was high at 201/66 and heart rate was 66. collections attorney was sinus bradycardia during the episode. Cardizem was decreased to 30 mg at the time of admission and she did receive a dose this morning as well as lisinopril. A neurology consult was done virtually to rule out stroke. Patient was sequentially transferred to the cardiac stepdown unit and is asymptomatic at the time of evaluation. Patient denies having any chest pain, shortness of breath, palpitations, lightheadedness or dizziness. No syncopal episode. Daughter is at bedside. Eechocardiogram obtained in the office March 2020 revealed preserved LV systolic function with ejection fraction 55%, mild to moderate mitral regurgitation, moderate tricuspid regurgitation and mild pulmonary hypertension with RVSP of 35 mmHg. REVIEW OF SYSTEMS At the time of my exam: CONSTITUTIONAL: Denies fever or chills. CARDIOVASCULAR: Denies chest pain, shortness of breath, orthopnea, PND or palpitations. RESPIRATORY: Denies cough. GASTROINTESTINAL: Denies abdominal pain, diarrhea, constipation, nausea or vomiting. MUSCULOSKELETAL: Denies myalgias. NEUROLOGIC: Denies numbness, tingling, headacbe or weakness. ENDOCRINE: Denies fatigue, weight change, polydipsia or polyurina. GENITOURINARY: Denies burning, hematuria or urgency with micturation. HEMATOLOGIC: Denies history of anemia or bleeding. PHYSICAL EXAMINATION CONSTITUTIONAL: No apparent distress. Patient is resting in bed and appears to be comfortable. Daughter is at bedside. HEENT: Head is normocephalic. Pupils are equal, round. Sclerae anicteric. Mucous membranes of the mouth are moist. No JVD. No carotid bruit. CHEST EXAMINATION: Lungs are clear to auscultation. No chest wall tenderness is noted on palpation or with deep breathing. HEART EXAMINATION: Regular rate and rhythm. S1, S2 heard. Soft ejection murmur at the base, no gallops or rub. ABDOMEN: Soft, nontender. Positive bowel sounds. EXTREMITIES: 2+ peripheral pulses, no lower extremity edema and no calf tenderness. NEUROLOGIC EXAMINATION: Patient is awake, alert and oriented x3. ASSESSMENT Episode of weakness, tremors, rule out TIA/CVA, do not suspect arrhythmia Labile blood pressure and multiple medication adjustments over the past several months Paroxysmal atrial fibrillation on long-term anticoagulation Hypertension Dyslipidemia COPD PLAN Cardizem has been discontinued Continue lisinopril 40 mg daily only for blood pressure for now until CVA ruled out by neurology Hold all rate control medications due to bradycardia Monitor closely for bradycardia and possible need for pacemaker Further recommendations as patient progresses Thank you kindly for this consultation. Nurse Practitioner note has been reviewed, I agree with a documented findings and plan of care. Patient was seen and examined. Past Medical History Past Medical History: Atrial Fibrillation, Cancer, Heart Failure, COPD, CVA/TIA, Diabetes Mellitus, Deep Vein Thrombosis (DVT), Fibromyalgia, GERD/Reflux, Hyperlipidemia, Hypertension, Osteoarthritis (OA), Pneumonia, Sleep Apnea/CPAP/BIPAP, Vascular Disorder Additional Past Medical History / Comment(s): back pain , lung cancer-radiation opnly, HOME 02 2 LITERS N/C, BLOOD CLOT AFTER SX, CVA LT SIDE AFFECTED SINCE RESOLVED, HIATAL HERNIA. SHINGLES 30 YEARS AGO, DOES'NT USE CPAP MACHINE.in past for short period of time took oral meds for dm-then taken off meds-pt stated not considered diabetic now but occ will check bs., macular degeneration.past broken rt leg and lt wrist. Raynauds. Pt currently has 3 fractured ribs on the right that she has "had for years and will not heal". History of Any Multi-Drug Resistant Organisms: MRSA Date of last positivie culture/infection: 09/25/16 MDRO Source:: BRONCH WASH Past Surgical History: Cholecystectomy, Heart Catheterization With Stent, Orthopedic Surgery Additional Past Surgical History / Comment(s): rt leg repaired after break-has pins, lt wrist-plate and screws. lung bx, stents tung groins. Past Anesthesia/Blood Transfusion Reactions: Family History of Problems w/ Ane sthesia Additional Past Anesthesia/Blood Transfusion Reaction / Comment(s): daughter has diff waking after aa Date of Last Stent Placement:: unk Past Psychological History: Depression Additional Psychological History / Comment(s): [place] and [place]. does'nt drive-either daughters or sister takes her places. has home 02, nebulizer. . Ongoing tobacco smoker stopping just may 2016. Has a history of lung cancer with radiation. Smoking Status: Former smoker Past Alcohol Use History: None Reported, Rare Additional Past Alcohol Use History / Comment(s): started smopking at age 14(1956), quit 2016 Past Drug Use History: None Reported - Past Family History Father Family Medical History: Congestive Heart Failure (CHF), COPD Additional Family Medical History / Comment(s): emphysema Mother Family Medical History: Cancer Medications and Allergies Home Medications Medication Instructions Recorded Confirmed Type Pantoprazole Sodium [Protonix] 40 mg PO QAM 09/23/16 08/04/20 History Apixaban [Eliquis] 2.5 mg PO BID tablet 10/02/16 08/04/20 Rx Fluticasone/Umeclidin/Vilanter 1 puff INHALATION RT-DAILY 04/19/20 08/04/20 History [Trelegy Ellipta 100-62.5-25] Nitroglycerin Sl Tabs [Nitrostat] 0.4 mg SUBLINGUAL Q5M PRN #20 tab 04/21/20 08/04/20 Rx ALPRAZolam [Xanax] 0.25 mg PO Q8H PRN 07/12/20 08/04/20 History Atorvastatin [Lipitor] 80 mg PO HS 07/12/20 08/04/20 History Cholecalciferol [Vitamin D3 (25 1,000 unit PO W/SUPPER 07/12/20 08/04/20 History Mcg = 1000 Iu)] Digoxin [Digitek] 125 mcg PO DAILY 07/12/20 08/04/20 History Enalapril [Vasotec] 10 mg PO BID 07/12/20 08/04/20 History Gabapentin 300 mg PO BID 07/12/20 08/04/20 History Gabapentin 600 mg PO HS 07/12/20 08/04/20 History L.acidoph,Paracasei, B.lactis 1 cap PO DAILY 07/12/20 08/04/20 History [Probiotic] PARoxetine [Paxil] 20 mg PO DAILY 07/12/20 08/04/20 History metFORMIN HCL [Glucophage] 500 mg PO DAILY 07/12/20 08/04/20 History amLODIPine [Norvasc] 5 mg PO BID #60 tab 07/13/20 08/04/20 Rx Albuterol Sulfate [Proventil Hfa] 2 puff INHALATION RT-Q6H PRN 08/04/20 08/04/20 History Cyanocobalamin (Vitamin B-12) 1,000 mcg PO DAILY 08/04/20 08/04/20 History [Vitamin B-12] Diltiazem HCl 120 mg PO BID 08/04/20 08/04/20 History Docusate [Colace] 100 mg PO DAILY PRN 08/04/20 08/04/20 History Lidocaine 5% Patch [Lidoderm 5% 1 patch TOPICAL DAILY PRN 08/04/20 08/04/20 Hi story Patch] busPIRone HCl [Buspar] 5 mg PO TID 08/04/20 08/04/20 History tiZANidine HCL 2 mg PO BID 08/04/20 08/04/20 History Allergies Allergy/AdvReac Type Severity Reaction Status Date / Time No Known Allergies Allergy Verified 08/04/20 13:00 Physical Exam Vitals: Vital Signs Temp Pulse Pulse Resp BP BP Pulse Ox 08/05/20 12:13 97.6 F 67 18 183/81 98 08/05/20 10:23 64 16 150/89 98 08/05/20 08:50 66 16 201/66 98 08/05/20 07:55 16 08/05/20 07:00 97.4 F L 58 L 17 189/68 98 08/05/20 03:00 97.5 F L 53 L 18 147/57 99 08/04/20 19:49 97.8 F 60 18 174/64 96 08/04/20 18:25 70 187/90 96 08/04/20 15:04 97.8 F 60 18 174/54 99 08/04/20 14:12 53 L 16 156/62 99 08/04/20 14:00 48 L 08/04/20 12:22 57 L 08/04/20 12:18 43 L 18 138/57 97 08/04/20 11:34 46 L Intake and Output 08/04/20 08/05/20 08/05/20 21:59 06:59 14:59 Intake Total 100 Balance 100 Intake: Oral 100 Other: # Voids Weight Results 08/05/20 09:27 08/05/20 09:27 Cardiac Enzymes 08/04/20 08/04/20 08/05/20 Range/Units 12:10 12:10 09:27 AST 28 23 (14-36) U/L CK-MB (CK-2) (0.0-2.4) ng/mL Troponin I <0.012 (0.000-0.034) ng/mL 08/05/20 Range/Units 09:27 AST (14-36) U/L CK-MB (CK-2) 0.7 (0.0-2.4) ng/mL Troponin I <0.012 (0.000-0.034) ng/mL Coagulation 08/04/20 08/05/20 Range/Units 12:10 09:27 PT 11.2 11.5 (9.0-12.0) sec APTT 22.2 23.1 (22.0-30.0) sec CBC 08/04/20 08/05/20 Range/Units 12:10 09:27 WBC 8.3 6.0 (3.8-10.6) k/uL RBC 3.83 3.98 (3.80-5.40) m/uL Hgb 11.7 11.7 (11.4-16.0) gm/dL Hct 33.7 L 35.4 (34.0-46.0) % Plt Count 183 180 (150-450) k/uL Comprehensive Metabolic Panel 08/04/20 08/05/20 Range/Units 12:10 09:27 Sodium 135 L 134 L (137-145) mmol/L Potassium 4.3 4.3 (3.5-5.1) mmol/L Chloride 97 L 97 L (98-107) mmol/L Carbon Dioxide 32 H 29 (22-30) mmol/L BUN 14 12 (7-17) mg/dL Creatinine 0.72 0.66 (0.52-1.04) mg/dL Glucose 174 H 281 H (74-99) mg/dL Calcium 9.3 9.0 (8.4-10.2) mg/dL AST 28 23 (14-36) U/L ALT 22 22 (4-34) U/L Alkaline Phosphatase 83 70 (38-126) U/L Total Protein 6.1 L 5.5 L (6.3-8.2) g/dL Albumin 3.9 3.3 L (3.5-5.0) g/dL Current Medications Generic Name Dose Route Start Last Admin Trade Name Freq PRN Reason Stop Dose Admin Acetaminophen 650 mg 08/04/20 13:26 08/05/20 08:07 Acetaminophen Tab 325 Mg Tab PO 650 mg Q6HR PRN Administration Mild Pain or Fever > 100.5 Albuterol Sulfate 2.5 mg 08/04/20 16:11 Albuterol Nebulized 2.5 Mg/3 Ml INHALATION RT-Q6H PRN Shortness Of Breath Alprazolam 0.25 mg 08/04/20 16:11 Alprazolam 0.25 Mg Tab PO Q8H PRN Anxiety Apixaban 2.5 mg 08/04/20 21:00 08/05/20 07:55 Apixaban 2.5 Mg Tablet PO 2.5 mg BID LETICIA Administration Atorvastatin Calcium 80 mg 08/04/20 21:00 08/04/20 21:32 Atorvastatin 80 Mg Tab PO 80 mg HS LETICIA Administration Buspirone HCl 5 mg 08/04/20 22:00 08/05/20 07:55 Buspirone Hcl 5 Mg Tab PO 5 mg TID LETICIA Administration Docusate Sodium 100 mg 08/04/20 16:11 Docusate 100 Mg Cap PO DAILY PRN Constipation Gabapentin 300 mg 08/04/20 21:00 08/05/20 07:55 Gabapentin 300 Mg Cap PO 300 mg BID LETICIA Administration Gabapentin 600 mg 08/04/20 21:00 08/04/20 21:33 Gabapentin 300 Mg Cap PO 600 mg HS LETICIA Administration Hydralazine HCl 10 mg 08/05/20 09:45 08/05/20 12:19 Hydralazine Hcl 20 Mg/Ml 1 Ml Vial IVP 10 mg Q6HR PRN Administration Blood Pressure - High Sodium Chloride 1,000 mls @ 50 mls/hr 08/04/20 13:30 08/05/20 07:57 Saline 0.9% IV 50 mls/hr .Q20H LETICIA Administration Lidocaine 1 patch 08/04/20 16:11 08/05/20 03:02 Lidocaine 5% Patch TOPICAL 1 patch DAILY PRN Administration Pain Lisinopril 40 mg 08/05/20 09:00 08/05/20 07:55 Lisinopril 20 Mg Tab PO 40 mg DAILY LETICIA Administration Metformin HCl 500 mg 08/05/20 09:00 08/05/20 07:56 Metformin 500 Mg Tab PO 500 mg DAILY LETICIA Administration Naloxone HCl 0.2 mg 08/04/20 13:26 Naloxone 0.4 Mg/Ml 1 Ml Vial IV Q2M PRN Opioid Reversal Nitroglycerin 0.4 mg 08/04/20 16:11 Nitroglycerin Sl Tabs 0.4 Mg Tab SUBLINGUAL Q5M PRN Chest Pain Pantoprazole Sodium 40 mg 08/05/20 09:00 08/05/20 07:56 Pantoprazole 40 Mg Tablet PO 40 mg QAM LETICIA Administration Paroxetine HCl 20 mg 08/05/20 09:00 08/05/20 07:55 Paroxetine 20 Mg Tab PO 20 mg DAILY LETICIA Administration Intake and Output 08/04/20 08/05/20 08/05/20 21:59 06:59 14:59 Intake Total 100 Balance 100 Intake: Oral 100 Other: # Voids Weight 08/05/20 09:27 08/05/20 09:27
[2020-08-05] MEDS: amLODIPine 5 MG TAB PO SCH ×2 (13:39→19:55)
--- NOTE | 2020-08-05 14:51 | P.PN ---
Subjective Progress Note Date: 08/05/20 80 years old female who I have seen in the clinic for the first time last month with past medical history of chronic hypoxic failure and COPD on 2 L of oxygen with exertion and at bedtime coronary artery disease with multivessel stenting, peripheral artery disease with previous stenting, history of non-small cell lung cancer status post radiation with possible reccurrence with new lesion in the right middle lobe 8 X 4 mm in size with negative bone scan follows Dr. Patel as outpatient, chronic fibromyalgia chronic nicotine dependence ex-smoker, degenerative joint disease, Raynaud's, chronically fractured 3 ribs on the right that has not healed the years, hypertension, hyperlipidemia and paroxysmal atrial fibrillation with last HUE with cardioversion [place] [address] Rodriguez as outpatient last admitted for A. fib with RVR on 07/12/2020 comes in with sinus bradycardia with hypotension. Apparently patient has been switched from Cardizem to Norvasc in February which led to worsening of her atrial fibrillation leading to admission in June. Patient was seen post hospitalization and was found to be in A. fib with RVR. Norvasc was discontinued and patient was placed on Cardizem. Patient was thought to be taking 180 mg at home and therefore Cardizem was increased to 120 mg twice a day. Patient has been taking Cardizem for the past 1 week and started noticing dizziness and generalized weakness. Patient's vitals in the ER suggestive heart rate of 43 on his EKG appears to be sinus bradycardia no apron blocks noted. Patient will be kept on telemetry. Blood pressure 186/74 on admission and improved to 156/62 with improvement of HR to 60 / min . Diltiazem will be started at a low dose of 30 mg 3 times a day. Digoxin level will be ordered. Cardiology consultation 08/05 and was found to have increased weakness associated with dizziness, nausea vomiting and slurring of speech. Patient was unable to smile. Patient also complains of numbness and tingling involving the upper extremities associated with blurring of vision. Patient complains of tingling associated in the right arm with tingling involving her neck. Patient also complains of increased weakness including the upper and lower extremity on the left Patient has tremors bilaterally upper ext. Symptoms are intermittent and started at 8:30 this morning after patient received her morning medications. Patient was assessed by telling. CT head and CTA were obtained. CT suggests moderate stenosis of the left internal carotid artery in the neck secondary to calcified laque. Carotid Dopplers ordered. MRI ordered stat. EEG ordered. Neurology consult placed. Brief episode of PVC was noted in the night. Currently patient remains in sinus bradycardia. Blood pressure continues to stay elevated. Hydralazine started at 10 mg IV every 6 for systolic more than 160. Norvasc added at 5 mg twice a day along with lisinopril. Diltiazem held for now. Patient's abdomen appeared distended and patient is tender on palpation. Ultrasound abdomen ordered Monitor closely for bradycardia with possible need for pacemaker. Patient does have underlying jerky movements of the upper extremity for which she sees Dr. Gonzalo zarate recommend muscular relaxant for the patient. Constitutional: Denies chills, Denies fever, endorses lethargy, endorses malaise, Denies poor appetite, Denies weakness, Denies weight loss endorses dizziness Eyes: Endorses decreased vision, denies diplopia, denies discharge, denies pain Ears: deny: decreased hearing Ears, nose, mouth and throat: Denies dental pain, Denies headache, Denies nasal discharge, Denies nose pain Cardiovascular: Denies chest pain, Denies decreased exercise tolerance, Denies edema, Denies high blood pressure, Denies irregular heart beat, Denies palpitations, Denies paroxysmal nocturnal dyspnea, Denies rapid heart beat, Denies shortness of breath Respiratory: Denies congestion, Denies cough, Denies cough with sputum, Denies dyspnea, Denies home oxygen, Denies wheezing Gastrointestinal: Endorses abdominal pain, Denies change in bowel habits, Denies coffee ground emesis, Denies early satiety, Denies excessive gas, Denies heartburn, Denies hematemesis, Denies hematochezia, Denies loss of appetite, endorses nausea, endorses vomiting Genitourinary: Denies dysuria, Denies flank pain, Denies kidney stones, Denies menorrhagia, Denies urgency, Denies urinary frequency Musculoskeletal: Denies gait dysfunction, Denies limitation of motion, Denies morning stiffness, endorses muscle cramps endorses tremors endorses tingling in the upper extremity Integumentary: Denies rash, Denies wounds, Denies brittle nails, Denies change in hair/nails, Denies darkening of skin Neurological: Endorses balance difficulties, endorses change in speech, endorses double vision, Denies gait dysfunction, Denies loss of vision, endorses motor disturbance, endorses numbness, Denies paralysis, endorses paresthesias, endorses jerks involving bilateral upper extremities Denies seizures Psychiatric: Denies anxiety, Denies depression Endocrine: Denies excessive sweating, Denies excessive thirst, Denies high blood sugars, Denies palpitations Hematologic/Lymphatic: Denies easy bruising, Denies lymphadenopathy Objective - Vital Signs Vital signs: Vital Signs Temp 97.6 F 08/05/20 12:13 Pulse 67 08/05/20 12:13 Resp 18 08/05/20 12:13 BP 183/81 08/05/20 12:13 Pulse Ox 98 08/05/20 12:13 Intake & Output 08/04/20 08/05/20 08/05/20 17:59 06:59 18:59 Intake Total 100 Balance 100 Weight Intake: Oral 100 Other: # Voids - Exam - Constitutional General appearance: cooperative, no acute distress, thin fragile - EENT Eyes: anicteric sclerae, PERRLA, normal appearance ENT: hearing grossly normal - Neck Neck: no lymphadenopathy, normal ROM, no other, no rigidity, no stridor, no thyromegaly - Respiratory Respiratory: bilateral: CTA, negative: diminished, dullness, rales, rhonchi - Cardiovascular Rhythm: regular, bradycardia Heart sounds: normal: S1, S2 Abnormal Heart Sounds: no systolic murmur, no diastolic murmur, no rub, no S3 Gallop, no S4 Gallop, no click, no other - Gastrointestinal General gastrointestinal: normal bowel sounds, soft tender to palpate in the upper quadrant - Integumentary Integumentary: no rash - Neurologic Neurologic: CNII-XII intact no nystagmus finger to nose test normal4+/5 weakness in the left lower extremity 5/5 motor strength in the other extremities no sensory deficit but does patient does document tingling involving bilateral upper extremity. Patient speech is slow and slurred and is intermittent - Musculoskeletal Musculoskeletal: gait normal, 4/5 weakness in the left lower extremity no gross motor or sensory deficit noted in the other extremities - Psychiatric Psychiatric: A&O x's 3, appropriate affect - Labs CBC & Chem 7: 08/05/20 09:27 08/05/20 09:27 Labs: Abnormal Lab Results - Last 24 Hours (Table) 08/05/20 08/05/20 08/05/20 Range/Units 08:42 09:27 12:26 Sodium 134 L (137-145) mmol/L Chloride 97 L (98-107) mmol/L Glucose 281 H (74-99) mg/dL POC Glucose (mg/dL) 274 H 169 H (75-99) mg/dL Total Protein 5.5 L (6.3-8.2) g/dL Albumin 3.3 L (3.5-5.0) g/dL Assessment and Plan Plan: #1 presyncope secondary to bradycardia hypotension resolved EKG suggest sinus bradycardia with improved blood pressure continue telemetry EKG does have some nonspecific ST-T wave changes troponin every 3 hours 3. Cardiology consult placed. Digitoxin level 1.5 continue current digoxin dose. #2 paroxysmal atrial fibrillation currently in sinus bradycardia Continue eliquis 2.5 mg twice a day continue digoxin 125 g by mouth daily patient not on beta javier Norvasc discontinued and in the last admission. Cardizem discontinued Telemetry with no blocks. #3 Intermittent episodes of slurring of speech, with weakness involving left upper and lower extremities rule out CVA MRI stat. CT head negative. CT angiogram suggestive of moderate stenosis of the left internal carotid artery denies neck due to calcified plaque. Continue eliquisa nd lipitor . MRI stat. Carotid Dopplers. EEG ordered # 4. Sinus bradycardia with possible sick sinus syndrome. Hold Cardizem. Monitor for bradycardia continue telemetry possible pacemaker placement if no improvement in her treated #5 hypertension on vasotec at home , started on [id number] mg by mouth daily . Norvasc added at 5 mg twice a day. Cardizem on hold due to bradycardia. Hydralazine 10 IV every 6 for systolic more than 160 Cardiology to see patient tomorrow #6 hyperlipidemia continue atorvastatin 80 mg daily at bedtime #7 degenerative disc disease and lumbar radiculopathy continue gabapentin 600 mg daily at bedtime and 300 mg by mouth daily with Rolla 5 every 12 when lidocaine patch daily #8 coronary artery disease status post stenting continue aspirin, digoxin, atorvastatin #9right middle lobe lung density 18-4 mm scarlike opacity versus pigmented did not do. Bone scan has been negative. Patient follows oncology Dr. Patel as outpatient. #10. peripheral artery diseasestatus post stenting on aspirin #11 history of sleep apnea but patient does not wear CPAP at night #12 history of COPD/chronic hypoxic respiratory failure on 2 L off oxygen continue new albuterol as needed #13 history of non-small cell lung cancer status post radiation follows Dr. Patel, as outpatient #14 history of CVA/TIA with left-sided weakness, rule out recrudescence of stroke. MRI ordered #15 history of DVT postsurgical resolved #16 fibromyalgia stable #17 history of GERD continue pantoprazole 40 mg by mouth daily #18 history of Anxiety an d depression continue Paxil 20 mg by mouth daily. 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 Patient sees Dr. Sánchez as outpatient and was started on muscle relaxant #22 Anxiety patient initiated on BuSpar as outpatient. Xanax 0.25 twice a day as needed for anxiety continue Paxil 20 mg daily #23 Diffuse abdominal pain. Bowel sounds are present. Patient does have nausea. Continue pantoprazole 40 mg every morning. Ultrasound abdomen ordered #24carotid stenosis on CTA. Carotid ultrasound ordered #25 disposition patient need 1-2 inpatient nights for stabilization.
--- NOTE | 2020-08-05 15:51 | US ---
EXAMINATION TYPE: US carotid duplex BILAT DATE OF EXAM: 08/05/2020 COMPARISON: NONE CLINICAL HISTORY: carotid stenosis . Exam done portable. EXAM MEASUREMENTS: RIGHT: Peak Systolic Velocity (PSV) cm/sec ----- Right CCA: 68.6 ----- Right ICA: 98.8 ----- Right ECA: 84.2 ICA/CCA ratio: 1.4 RIGHT: End Diastole cm/sec ----- Right CCA: 11.0 ----- Right ICA: 19.6 ----- Right ECA: 0.0 LEFT: Peak Systolic Velocity (PSV) cm/sec ----- Left CCA: 106.6 ----- Left ICA: 198.3 ----- Left ECA: 235.6 ICA/CCA ratio: 1.9 LEFT: End Diastole cm/sec ----- Left CCA: 20.6 ----- Left ICA: 45.2 ----- Left ECA: 0.0 VERTEBRALS (direction of flow): Right Vertebral: Antegrade Left Vertebral: Antegrade Rhythm: Normal Bilateral intimal thickening, plaque bilateral bulb greater on the left side, elevated velocities: le ft prox mid and distal ICA, left bulb and left prox ECA. IMPRESSION: There is antegrade flow in the vertebral arteries. The images and measurements suggest approximate 70 % stenosis in the left internal carotid artery and more than 70% stenosis in the left external caroti d artery. There is less than 50% stenosis in the right internal carotid artery. Bilateral moderate plaque formation. Criteria for Assigning % of Stenosis / Diameter reduction (Estimation based on the indirect measurements of the internal carotid artery velocities (ICA PSV). 1. Normal (no stenosis)=ICA PSV < 125 cm/s: ratio < 2.0: ICA EDV<40 cm/s. 2. Less than 50% stenosis=ICA PSV < 125 cm/s: ratio < 2.0: ICA EDV<40 cm/s. 3. 50 to 69% stenosis=ICA PSV of 125 to 230 cm/s: ration 2.0 ? 4.0: ICA EDV 40-100 cm/s. 4. Greater than 70% stenosis to near occlusion= ICA PSV > 230 cm/s: ratio > 4.0: ICA EDV > 100 cm/s. 5. Near occlusion= ICA PSV velocities may be low or undetectable: variable ratio and ICA EDV. 6. Total occlusion=unable to detect flow.
[2020-08-05 16:35] LABS: Glucose,Whole Blood 183 mg/dL (75-99)
[2020-08-05] MEDS: ATORVASTATIN 80 MG TAB PO SCH (19:55)
[2020-08-05 20:27] LABS: Glucose,Whole Blood 166 mg/dL (75-99)
[2020-08-05] MEDS: MAG HYDROX/AL HYDROX/SIMETH 30 ML CUP PO PRN (21:46)
[2020-08-05 23:36] LABS: Hemoglobin A1C 6.9 % (4.0-6.0)
[2020-08-06] MEDS: SODIUM CHLORIDE 0.9% 1,000 ML IV SCH
[2020-08-06 05:59] LABS: Glucose,Whole Blood 188 mg/dL (75-99)
--- NOTE | 2020-08-06 08:00 | P.CNNES ---
History of Present Illness Consult date: 08/05/20 History of Present Illness: The patient is an 80-year-old female who is seen in neurologic consultation on August 05, 2020, via teleneurology. The patient is being seen because of concerns for stroke. She was originally admitted to the hospital because of low blood pressure and bradycardia. Patient reports having had several changes in her antihypertensive medications in the past couple weeks because of elevated blood pressure and low blood pressure. Patient also had chest pain upon presentation to the emergency department. In the ER, she was found to be bradycardic with a heart rate of 47. This morning, at approximately 8:40 AM, after receiving her after receiving her 8 AM medications-BuSpar, Eliquis, Neurontin, lisinopril 40 mg, metformin, Cardi zem 30 mg, Protonix and Paxil, the patient suddenly became shaky, felt weak and felt as if she would pass out. Apparently her speech was impaired. There is reportedly a facial droop. The patient had blurring of her vision, headache and difficulty moving her arms and legs. Blood pressure at the time of these symptoms was 203/66. NIH stroke scale score was 3. At 9 AM patient was taken down for a stat head CT. CT scan of the brain revealed no signs of acute hemorrhage or infarct. CT angiogram of the head and neck revealed "moderate stenosis" of the left internal carotid artery. Past Medical History Past Medical History: Atrial Fibrillation, Cancer, Heart Failure, COPD, CVA/TIA, Diabetes Mellitus, Deep Vein Thrombosis (DVT), Fibromyalgia, GERD/Reflux, Hyperlipidemia, Hypertension, Osteoarthritis (OA), Pneumonia, Sleep Apnea/CPAP/BIPAP, Vascular Disorder Additional Past Medical History / Comment(s): back pain , lung cancer-radiation opnly, HOME 02 2 LITERS N/C, BLOOD CLOT AFTER SX, CVA LT SIDE AFFECTED SINCE RESOLVED, HIATAL HERNIA. SHINGLES 30 YEARS AGO, DOES'NT USE CPAP MACHINE.in past for short period of time took oral meds for dm-then taken off meds-pt stated not considered diabetic now but occ will check bs., macular degeneration.past broken rt leg and lt wrist. Raynauds. Pt currently has 3 fractured ribs on the right that she has "had for years and will not heal". History of Any Multi-Drug Resistant Organisms: MRSA Date of last positivie culture/infection: 09/25/16 MDRO Source:: BRONCH WASH Past Surgical History: Cholecystectomy, Heart Catheterization With Stent, Orthopedic Surgery Additional Past Surgical History / Comment(s): rt leg repaired after break-has pins, lt wrist-plate and screws. lung bx, stents tung groins. Past Anesthesia/Blood Transfusion Reactions: Family History of Problems w/ Anesthesia Additional Past Anesthesia/Blood Transfusion Reaction / Comment(s): daughter has diff waking after aa Date of Last Stent Placement:: unk Past Psychological History: Depression Additional Psychological History / Comment(s): [place] and [place]. does'nt drive-either daughters or sister takes her places. has home 02, nebulizer. . Ongoing tobacco smoker stopping just may 2016. Has a history of lung cancer with radiation. Smoking Status: Former smoker Past Alcohol Use History: None Reported, Rare Additional Past Alcohol Use History / Comment(s): started smopking at age 14(5), quit 2016 Past Drug Use History: None Reported - Past Family History Father Family Medical History: Congestive Heart Failure (CHF), COPD Additional Family Medical History / Comment(s): emphysema Mother Family Medical History: Cancer Medications and Allergies Home Medications Medication Instructions Recorded Confirmed Type Pantoprazole Sodium [Protonix] 40 mg PO QAM 09/23/16 08/04/20 History Apixaban [Eliquis] 2.5 mg PO BID tablet 10/02/16 08/04/20 Rx Fluticasone/Umeclidin/Vilanter 1 puff INHALATION RT-DAILY 04/19/20 08/04/20 History [Trelegy Ellipta 100-62.5-25] Nitroglycerin Sl Tabs [Nitrostat] 0.4 mg SUBLINGUAL Q5M PRN #20 tab 04/21/20 08/04/20 Rx ALPRAZolam [Xanax] 0.25 mg PO Q8H PRN 07/12/20 08/04/20 History Atorvastatin [Lipitor] 80 mg PO HS 07/12/20 08/04/20 History Cholecalciferol [Vitamin D3 (25 1,000 unit PO W/SUPPER 07/12/20 08/04/20 History Mcg = 1000 Iu)] Digoxin [Digitek] 125 mcg PO DAILY 07/12/20 08/04/20 History Enalapril [Vasotec] 10 mg PO BID 07/12/20 08/04/20 History Gabapentin 300 mg PO BID 07/12/20 08/04/20 History Gabapentin 600 mg PO HS 07/12/20 08/04/20 History L.acidoph,Paracasei, B.lactis 1 cap PO DAILY 07/12/20 08/04/20 History [Probiotic] PARoxetine [Paxil] 20 mg PO DAILY 07/12/20 08/04/20 History metFORMIN HCL [Glucophage] 500 mg PO DAILY 07/12/20 08/04/20 History amLODIPine [Norvasc] 5 mg PO BID #60 tab 07/13/20 08/04/20 Rx Albuterol Sulfate [Proventil Hfa] 2 puff INHALATION RT-Q6H PRN 08/04/20 08/04/20 History Cyanocobalamin (Vitamin B-12) 1,000 mcg PO DAILY 08/04/20 08/04/20 History [Vitamin B-12] Diltiazem HCl 120 mg PO BID 08/04/20 08/04/20 History Docusate [Colace] 100 mg PO DAILY PRN 08/04/20 08/04/20 History Lidocaine 5% Patch [Lidoderm 5% 1 patch TOPICAL DAILY PRN 08/04/20 08/04/20 History Patch] busPIRone HCl [Buspar] 5 mg PO TID 08/04/20 08/04/20 History tiZANidine HCL 2 mg PO BID 08/04/20 08/04/20 History Allergies Allergy/AdvReac Type Severity Reaction Status Date / Time No Known Allergies Allergy Verified 08/04/20 13:00 Physical Examination - Vital Signs Vital Signs: Vital Signs Temp Pulse Pulse Resp BP BP Pulse Ox 08/05/20 10:23 64 16 150/89 98 08/05/20 08:50 66 16 201/66 98 08/05/20 07:55 16 08/05/20 07:00 97.4 F L 58 L 17 189/68 98 08/05/20 03:00 97.5 F L 53 L 18 147/57 99 08/04/20 19:49 97.8 F 60 18 174/64 96 08/04/20 18:25 70 187/90 96 08/04/20 15:04 97.8 F 60 18 174/54 99 08/04/20 14:12 53 L 16 156/62 99 08/04/20 14:00 48 L 08/04/20 12:22 57 L 08/04/20 12:18 43 L 18 138/57 97 08/04/20 11:34 46 L 08/04/20 11:21 97.5 F L 47 L 18 149/63 97 Intake and Output 08/04/20 08/05/20 08/05/20 21:59 06:59 14:59 Intake Total 100 Balance 100 Intake: Oral 100 Other: # Voids Weight Results - Laboratory Findings CBC and BMP: 08/05/20 09:27 08/05/20 09:27 Abnormal Lab Findings: Abnormal Labs 08/04/20 08/04/20 08/05/20 12:10 12:10 08:42 Hct 33.7 L Sodium 135 L Chloride 97 L Carbon Dioxide 32 H Glucose 174 H POC Glucose (mg/dL) 274 H Total Protein 6.1 L Albumin 08/05/20 09:27 Hct Sodium 134 L Chloride 97 L Carbon Dioxide Glucose 281 H POC Glucose (mg/dL) Total Protein 5.5 L Albumin 3.3 L Assessment and Plan Assessment: 1. Neurological examination shows findings which may be consistent with a left cerebral infarct, however findings on the examination may be secondary to the patient's previous stroke. Neurologic symptoms leading to the code stroke this morning may have been secondary to markedly elevated blood pressure 2. Moderate left ICA stenosis 3. Labile blood pressure 4. Bradycardia Plan: 1. MRI of brain to further assess for ischemia 2. Vascular consultation for left ICA stenosis 3. Aspirin 81 mg daily 4. High-dose statin should be initiated 5. Lipid panel, hemoglobin A1c and TSH should be assessed 6. Echocardiogram 7. PT, OT and speech therapy evaluations Time with Patient: Greater than 30
--- NOTE | 2020-08-06 08:08 | US ---
EXAMINATION TYPE: US abdomen complete DATE OF EXAM: 08/06/2020 COMPARISON: US abdomen Limited April 03, 2020 CLINICAL HISTORY: abdominal pain . RUQ pain and nausea; history of lung CA; gallbladder removed EXAM MEASUREMENTS: Liver Length: 13.5 cm Gallbladder Wall: surgically removed CBD: 0.6 cm Spleen: 6.8 cm Right Kidney: 8.2 x 4.9 x 3.7 cm Left Kidney: 8.5 x 4.6 x 3.9 cm Pancreas: wnl Liver: attenuated posteriorly right lobe suggests fatty liver Gallbladder: surgically removed Evidence for sonographic De León's sign: no CBD: wnl Spleen: wnl Right Kidney: No hydronephrosis or masses seen Left Kidney: multiple renal cysts with largest simple cyst mid lower cortex = 2.0 x 1.7 x 2.1cm Upper IVC: wnl Abd Aorta: ectatic aorta noted superiorly The visualized liver is heterogeneously hyperechoic. No concerning masses or ductal dilatation. The intrahepatic portion of the IVC and proximal, mid, and distal abdominal aorta are within normal limit s. Gallbladder redemonstrated surgically absent. Common bile duct is unremarkable. The visualized p ortions of the pancreas are homogenous. The spleen is small. Kidneys are symmetric and free of hydr onephrosis. A few scattered small simple appearing thin-walled cysts throughout left kidney noted. IMPRESSION: No acute findings evident to account for patient symptoms of right upper quadrant pain an d nausea.
[2020-08-06 09:04] LABS: Appearance,Urine Clear (Clear); Bilirubin,Urine Negative (Negative); Blood,Urine Negative (Negative); Calcium Oxalate Crystals,Urine Few /hpf; Color,Urine Yellow; Glucose,Urine (UA) Negative (Negative); Hyaline Casts,Urine 1 /lpf (0-2); Ketones,Urine Negative (Negative); Leukocyte Esterase,Urine Trace (Negative); Nitrite,Urine Negative (Negative); PH, Urine 6.5 (5.0-8.0); Protein,Urine Negative (Negative); RBC,Urine 2 /hpf (0-5); Specific Gravity,Urine 1.018 (1.001-1.035); Urobilinogen,Urine <2.0 mg/dL (<2.0); WBC,Urine 3 /hpf (0-5)
[2020-08-06] MEDS: amLODIPine 5 MG TAB PO SCH ×2 (10:29→20:46)
[2020-08-06] MEDS: PARoxetine 20 MG TAB PO SCH (10:29)
[2020-08-06] MEDS: APIXABAN 2.5 MG TABLET PO SCH ×2 (10:29→20:46)
[2020-08-06] MEDS: GABAPENTIN 300 MG CAP PO SCH ×3 (10:29→20:46)
[2020-08-06] MEDS: metFORMIN 500 MG TAB PO SCH (10:29)
[2020-08-06] MEDS: busPIRone HCl 5 MG TAB PO SCH ×3 (10:29→20:46)
[2020-08-06] MEDS: PANTOPRAZOLE 40 MG TABLET PO SCH (10:29)
[2020-08-06] MEDS: lisinopriL 20 MG TAB PO SCH (10:29)
[2020-08-06] MEDS ORDERED: cloNIDine 0.2 MG/24HR PATCH TRANSDERM SCH (12:00)
[2020-08-06] MEDS ORDERED: cloNIDine 0.1 MG/24HR PATCH TRANSDERM SCH (12:00)
[2020-08-06 12:11] LABS: Glucose,Whole Blood 165 mg/dL (75-99)
--- NOTE | 2020-08-06 12:39 | P.PN ---
Subjective Progress Note Date: 08/06/20 HISTORY OF PRESENT ILLNESS: 08/05/2020-Glenroy Gould This is a pleasant 80-year-old female past medical history significant for coronary artery disease status post PCI, paroxysmal atrial fibrillation on long-term anticoagulation, hypertension, dyslipidemia, valvular heart disease and COPD. She follows in the office with Dr. Lance. Apparently back in February she had a change off Cardizem and started Norvasc. She was subsequently seen in the hospital on July 13 and recommended to increase Norvasc to 5 mg twice daily. She was then seen in the office with Dr. colbert in her blood pressure was extremely high and the Norvasc was discontinued and she was started on Cardizem at 120 mg twice daily which she took for one week. Now she complains that her heart rate was low in the 30s and blood pressure was low at home. Patient presented to [facility] emergency center or heart rate was found to be in the 40s. EKG was sinus bradycardia at 47. Troponins negative on 2 draws. Digoxin level I.5, potassium 4.3. Patient was placed on the observati on unit and while up there this morning at around 8:30 she had an episode where she became very weak and shaky and had tremors in her hands. This most bilaterally. She felt like she was going to pass out. Prior to this episode she had a run of V. tach 12 beats. During this episode her blood pressure was high at 201/66 and heart rate was 66. playground monitor was sinus bradycardia during the episode. Cardizem was decreased to 30 mg at the time of admission and she did receive a dose this morning as well as lisinopril. A neurology consult was done virtually to rule out stroke. Patient was sequentially transferred to the cardiac stepdown unit and is asymptomatic at the time of evaluation. Patient denies having any chest pain, shortness of breath, palpitations, lightheadedness or dizziness. No syncopal episode. Daughter is at bedside. Eechocardiogram obtained in the office March 2020 revealed preserved LV systolic function with ejection fraction 55%, mild to moderate mitral regurgitation, moderate tricuspid regurgitation and mild pulmonary hypertension with RVSP of 35 mmHg 08/06/2020 Patient examined this morning at the bedside. Patient denies chest pain or pressure. She denies shortness of breath. Telemetry reveals sinus mechanism with a heart rate in the 60s. Blood pressure this morning is elevated at 130/79. Previous reading at 4 AM was 133/63. PHYSICAL EXAM: VITAL SIGNS: Reviewed. GENERAL: Well-developed in no acute distress. NECK: Supple. No JVD or thyromegaly LUNGS: Respirations even and unlabored. Lungs essentially clear to auscultation bilaterally. HEART: Regular rate and rhythm. S1 and S2 heard. Systolic murmur noted. EXTREMITIES: No clubbing or cyanosis. Peripheral pulses intact. No lower extremity edema ASSESSMENT: Episode of weakness, tremors, rule out TIA/CVA, do not suspect arrhythmia Labile blood pressure and multiple medication adjustments over the past several months Paroxysmal atrial fibrillation, on long-term anticoagulation with Eliquis, currently maintaining sinus rhythm Hypertension Hyperlipidemia COPD Bradycardia, improving PLAN: Continue Eliquis for anticoagulation Continue telemetry monitoring Continue to monitor blood pressure Continue Norvasc and lisinopril Resume Cardizem at lower dose of 120 mg daily instead of BID Continue to hold digoxin If no evidence of CVA, recommend decreasing Lipitor to 40mg daily. Will defer to neurology. Further recommendations pending patient's course Nurse practitioner note has been reviewed by physician. Signing provider agrees with the documented findings, assessment, and plan of care. Objective - Vital Signs Vital signs: Vital Signs Temp 98.4 F 08/06/20 04:00 Pulse 80 08/06/20 08:00 Resp 18 08/06/20 08:00 BP 180/79 08/06/20 08:00 Pulse Ox 97 08/06/20 08:00 Intake & Output 08/05/20 08/06/20 08/06/20 18:59 06:59 18:59 Intake Total 320 720 Balance 320 720 Weight 54.1 kg Intake: Oral 320 720 Other: Voiding Method Toilet # Voids 0 2 - Labs CBC & Chem 7: 08/05/20 09:27 08/05/20 09:27 Labs: Abnormal Lab Results - Last 24 Hours (Table) 08/05/20 08/05/20 08/05/20 Range/Units 09:27 09:27 16:34 POC Glucose (mg/dL) 183 H (75-99) mg/dL Hemoglobin A1c 6.9 H (4.0-6.0) % Triglycerides 173 H (<150) mg/dL Ur Leukocyte Esterase (Negative) Calcium Oxalate Crystal (None) /hpf 08/05/20 08/06/20 08/06/20 Range/Units 20:26 05:58 08:15 POC Glucose (mg/dL) 166 H 188 H (75-99) mg/dL Hemoglobin A1c (4.0-6.0) % Triglycerides (<150) mg/dL Ur Leukocyte Esterase Trace H (Negative) Calcium Oxalate Crystal Few H (None) /hpf 08/06/20 Range/Units 12:10 POC Glucose (mg/dL) 165 H (75-99) mg/dL Hemoglobin A1c (4.0-6.0) % Triglycerides (<150) mg/dL Ur Leukocyte Esterase (Negative) Calcium Oxalate Crystal (None) /hpf
[2020-08-06] MEDS: ASPIRIN 81 MG PO SCH (13:56)
--- NOTE | 2020-08-06 14:49 | P.PN ---
Subjective Progress Note Date: 08/06/20 HISTORY OF PRESENT ILLNESS 80 years old female who I have seen in the clinic for the first time last month with past medical history of chronic hypoxic failure and COPD on 2 L of oxygen with exertion and at bedtime coronary artery disease with multivessel stenting, peripheral artery disease with previous stenting, history of non-small cell lung cancer status post radiation with possible reccurrence with new lesion in the right middle lobe 8 X 4 mm in size with negative bone scan follows Dr. Patel as outpatient, chronic fibromyalgia chronic nicotine dependence ex-smoker, degenerative joint disease, Raynaud's, chronically fractured 3 ribs on the right that has not healed the years, hypertension, hyperlipidemia and paroxysmal atrial fibrillation with last HUE with cardioversion in [address] Rodriguez as outpatient last admitted for A. fib with RVR on 07/12/2020 comes in with sinus bradycardia with hypotension. Apparently patient has been switched from Cardizem to Norvasc in February which led to worsening of her atrial fibrillation leading to admission in June. Patient was seen post hospitalization and was found to be in A. fib with RVR. Norvasc was discontinued and patient was placed on Cardizem. Patient was thought to be taking 180 mg at home and therefore Cardizem was increased to 120 mg twice a day. Patient has been taking Cardizem for the past 1 week and started noticing dizziness and generalized weakness. Patient's vitals in the ER suggestive heart rate of 43 on his EKG appears to be sinus bradycardia no apron blocks noted. Patient will be kept on telemetry. Blood pressure 186/74 on admission and improved to 156/62 with improvement of HR to 60 / min . Diltiazem will be started at a low dose of 30 mg 3 times a day. Digoxin level will be ordered. Cardiology consultation 08/05 and was found to have increased weakness associated with dizziness, nausea vomiting and slurring of speech. Patient was unable to smile. Patient also complains of numbness and tingling involving the upper extremities associated with blurring of vision. Patient complains of tingling associated in the right arm with tingling involving her neck. Patient also complains of increased weakness including the upper and lower extremity on the left Patient has tremors bilaterally upper ext. Symptoms are intermittent and started at 8:30 this [facility] after patient received her morning medications. Patient was assessed by telling. CT head and CTA were obtained. CT suggests moderate stenosis of the left internal carotid artery in the neck secondary to calcified laque. Carotid Dopplers ordered. MRI ordered stat. EEG ordered. Neurology consult placed. Brief episode of PVC was noted in the night. Currently patient remains in sinus bradycardia. Blood pressure continues to stay elevated. Hydralazine started at 10 mg IV every 6 for systolic more than 160. Norvasc added at 5 mg twice a day along with lisinopril. Diltiazem held for now. Patient's abdomen appeared distended and patient is tender on palpation. Ultrasound abdomen ordered Monitor closely for bradycardia with possible need for pacemaker. Patient does have underlying jerky movements of the upper extremity for which she sees Dr.Shuayto damari zarate recommend muscular relaxant for the patient. 08/06: Patient is seen today sitting in recliner appears to be in no acute di stress. She does state that she just walked with physical therapy and she thought she had jerking sensation all over. Carotid ultrasound revealed 70% stenosis in the left internal carotid artery and neurology as added vascular consult. Abdominal ultrasound for right upper quadrant pain and nausea revealed no acute findings evident to account for patient's symptoms. Cardiology has resumed Cardizem CD 120 mg daily. Heart rate has been in the 50s to 80s. Blood pressure 180/79, pulse ox 97% on 2 L. We are adding and a clonidine patch. Blood sugars are running between 165 and 188. Urinalysis clear with trace leukoesterase. MRI of the brain, echocardiogram and EEG are all pending. Cheli archer are recommending home with home care. REVIEW OF SYSTEMS Constitutional: Denies chills, Denies fever, endorses lethargy, endorses malaise, Denies poor appetite, Denies weakness, Denies weight loss endorses dizziness Eyes: Endorses decreased vision, denies diplopia, denies discharge, denies pain Ears: deny: decreased hearing Ears, nose, mouth and throat: Denies dental pain, Denies headache, Denies nasal discharge, Denies nose pain Cardiovascular: Denies chest pain, Denies decreased exercise tolerance, Denies edema, Denies high blood pressure, Denies irregular heart beat, Denies palpitations, Denies paroxysmal nocturnal dyspnea, Denies rapid heart beat, Denies shortness of breath Respiratory: Denies congestion, Denies cough, Denies cough with sputum, Denies dyspnea, Denies home oxygen, Denies wheezing Gastrointestinal: Endorses abdominal pain, Denies change in bowel habits, Denies coffee ground emesis, Denies early satiety, Denies excessive gas, Denies hear tburn, Denies hematemesis, Denies hematochezia, Denies loss of appetite, endorses nausea, endorses vomiting Genitourinary: Denies dysuria, Denies flank pain, Denies kidney stones, Denies menorrhagia, Denies urgency, Denies urinary frequency Musculoskeletal: Denies gait dysfunction, Denies limitation of motion, Denies morning stiffness, endorses muscle cramps endorses tremors endorses tingling in the upper extremity Integumentary: Denies rash, Denies wounds, Denies brittle nails, Denies change in hair/nails, Denies darkening of skin Neurological: Endorses balance difficulties, endorses change in speech, endorses double vision, Denies gait dysfunction, Denies loss of vision, endorses motor disturbance, endorses numbness, Denies paralysis, endorses paresthesias, endorses jerks involving bilateral upper extremities Denies seizures Psychiatric: Denies anxiety, Denies depression Endocrine: Denies excessive sweating, Denies excessive thirst, Denies high blood sugars, Denies palpitations Hematologic/Lymphatic: Denies easy bruising, Denies lymphadenopathy PHYSICAL EXAMINATION Gen: This is an 80-year-old female. She is sitting up in a chair and appears to be comfortable and in no acute distress. Patient's daughter is at bedside. HEENT: Head is atraumatic, normocephalic. Pupils equal, round. Sclerae is anicteric. NECK: Supple. No JVD. No lymphadenopathy. No thyromegaly. LUNGS: Clear to auscultation. No wheezes or rhonchi. No intercostal retractions. HEART: Regular rate and rhythm. No murmur. ABDOMEN: Soft. Bowel sounds are present. No masses. No tenderness. EXTREMITIES: No pedal edema. No calf tenderness. NEUROLOGICAL: Patient is awake, alert and oriented x3. Cranial nerves 2 through 12 are grossly intact. Finger to nose test is normal. 4+/5 weakness in the wound ASSESSMENT AND PLAN #1 presyncope secondary to bradycardia hypotension resolved. Cardiology consult placed. Digitoxin level 1.5. Patient is off digoxin. Cardiology has resume Cardizem CD 120 mg daily. #2 paroxysmal atrial fibrillation currently in sinus bradycardia Continue eliquis 2.5 mg twice a day , Cardizem 120 mg daily. Telemetry with no blocks. #3 Intermittent episodes of slurring of speech, with weakness involving left upper and lower extremities rule out CVA MRI stat. CT head negative. CT angiogram suggestive of moderate stenosis of the left internal carotid artery denies neck due to calcified plaque. Continue eliquisa and lipitor. # 4. Sinus bradycardia with possible sick sinus syndrome. Hold Cardizem. Monitor for bradycardia continue telemetry possible pacemaker placement if no im provement in her treated #5 hypertension on vasotec at home , started on [id number] mg by mouth daily . Norvasc added at 5 mg twice a day. Cardizem on hold due to bradycardia. Hydralazine 10 IV every 6 for systolic more than 160 Cardiology to see patient tomorrow #6 hyperlipidemia continue atorvastatin 80 mg daily at bedtime #7 degenerative disc disease and lumbar radiculopathy continue gabapentin 600 mg daily at bedtime and 300 mg by mouth daily with Crowley 5 every 12 when lidocaine patch daily #8 coronary artery disease status post stenting continue aspirin, digoxin, atorvastatin #9right middle lobe lung density 18-4 mm scarlike opacity versus pigmented did not do. Bone scan has been negative. Patient follows oncology Dr. Patel as outpatient. #10. peripheral artery diseasestatus post stenting on aspirin #11 history of sleep apnea but patient does not wear CPAP at night #12 history of COPD/chronic hypoxic respiratory failure on 2 L off oxygen continue new albuterol as needed #13 history of non-small cell lung cancer status post radiation follows Dr. Patel, as outpatient #14 history of CVA/TIA with left-sided weakness, rule out recrudescence of stroke. MRI ordered #15 history of DVT postsurgical resolved #16 fibromyalgia stable #17 history of GERD continue pantoprazole 40 mg by mouth daily #18 history of Anxiety an d depression continue Paxil 20 mg by mouth daily. 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 Patient sees Dr. Sánchez as outpatient and was started on muscle relaxant #22 Anxiety patient initiated on BuSpar as outpatient. Xanax 0.25 twice a day as needed for anxiety continue Paxil 20 mg daily #23 Diffuse abdominal pain. Bowel sounds are present. Patient does have nausea. Continue pantoprazole 40 mg every morning. Ultrasound abdomen ordered #24carotid stenosis on CTA. Carotid ultrasound ordered DISCHARGE PLAN Home with [facility] Impression and plan of care have been directed as dictated by the signing physician. Consuelo Gould nurse practitioner acting as scribe for signing physician. Objective - Vital Signs Vital signs: Vital Signs Temp 98.4 F 08/06/20 04:00 Pulse 80 08/06/20 08:00 Resp 18 08/06/20 08:00 BP 180/79 08/06/20 08:00 Pulse Ox 97 08/06/20 08:00 Intake & Output 08/05/20 08/06/20 08/06/20 18:59 06:59 18:59 Intake Total 320 720 Balance 320 720 Weight 54.1 kg Intake: Oral 320 720 Other: Voiding Method Toilet # Voids 0 2 - Labs CBC & Chem 7: 08/05/20 09:27 08/05/20 09:27 Labs: Abnormal Lab Results - Last 24 Hours (Table) 08/05/20 08/05/20 08/05/20 Range/Units 09:27 09:27 12:26 POC Glucose (mg/dL) 169 H (75-99) mg/dL Hemoglobin A1c 6.9 H (4.0-6.0) % Triglycerides 173 H (<150) mg/dL Ur Leukocyte Esterase (Negative) Calcium Oxalate Crystal (None) /hpf 08/05/20 08/05/20 08/06/20 Range/Units 16:34 20:26 05:58 POC Glucose (mg/dL) 183 H 166 H 188 H (75-99) mg/dL Hemoglobin A1c (4.0-6.0) % Triglycerides (<150) mg/dL Ur Leukocyte Esterase (Negative) Calcium Oxalate Crystal (None) /hpf 08/06/20 08/06/20 Range/Units 08:15 12:10 POC Glucose (mg/dL) 165 H (75-99) mg/dL Hemoglobin A1c (4.0-6.0) % Triglycerides (<150) mg/dL Ur Leukocyte Esterase Trace H (Negative) Calcium Oxalate Crystal Few H (None) /hpf
--- NOTE | 2020-08-06 15:13 | P.GSCN ---
History of Present Illness Consult date: 08/06/20 Reason for Consult: Carotid stenosis Requesting physician: Drew Pino History of present illness: The patient is a pleasant 80-year-old female who is seen for concerns for stroke subsequently had a CT angiogram of the head and neck which showed moderate stenosis of the left internal carotid artery. She was originally admitted to the hospital because of low blood pressure and bradycardia. Patient reports having had several changes in her antihypertensive medications in the past couple weeks because of elevated blood pressure and low blood pressure. Patient also had chest pain upon presentation to the emergency department. In the ER, she was found to be bradycardic with a heart rate of 47. Her past medical history includes peripheral arterial disease, status post bilateral stents in her groin she states from 20 years ago, coronary artery disease status post stent, atrial fibrillation on [place], COPD, congestive heart failure, diabetes mellitus, DVT, hyperlipidemia, hypertension, and previous TIA. Yesterday the patient suddenly became shaky, felt weak and felt as if she would pass out. Apparently her speech was impaired. There is reportedly a facial droop. The patient had blurring of her vision, headache and difficulty moving her arms and legs. states she has been following with Dr. Sánchez as an outpatient, and a workup for possible consideration of Parkinson's disease. She currently denies any visual changes, facial drooping, slurring of her speech, difficulty swallowing, upper or lower extremity weakness, however she states she is still having jerky tremor-like movements of her upper or lower extremities. CT angiogram head and neck with moderate stenosis of the origin of the left internal carotid artery in the neck secondary to calcified plaque. The right c ommon and internal carotid arteries with in the neck are wildly patent. No significant abnormality of the arterial circulation intracranially. A CT of the brain showed no acute bleed or mass effect. Sinus and changes. There is no interval change since the study of 11/01/2016. Carotid ultrasound: There is antegrade flow in the vertebral arteries. Images the measurement suggests approximate 70% stenosis of the left internal carotid artery more than 70% stenosis in the left external carotid artery. There is less than 50% stenosis in the right internal carotid artery. Past Medical History Past Medical History: Atrial Fibrillation, Cancer, Heart Failure, COPD, CVA/TIA, Diabetes Mellitus, Deep Vein Thrombosis (DVT), Fibromyalgia, GERD/Reflux, Hyper lipidemia, Hypertension, Osteoarthritis (OA), Pneumonia, Sleep Apnea/CPAP/BIPAP, Vascular Disorder Additional Past Medical History / Comment(s): back pain , lung cancer-radiation opnly, HOME 02 2 LITERS N/C, BLOOD CLOT AFTER SX, CVA LT SIDE AFFECTED SINCE RESOLVED, HIATAL HERNIA. SHINGLES 30 YEARS AGO, DOES'NT USE CPAP MACHINE.in past for short period of time took oral meds for dm-then taken off meds-pt stated not considered diabetic now but occ will check bs., macular degeneration.past broken rt leg and lt wrist. Raynauds. Pt currently has 3 fractured ribs on the right that she has "had for years and will not heal". History of Any Multi-Drug Resistant Organisms: MRSA Year Discovered:: 09/25/16 MDRO Source:: BRONCH WASH Past Surgical History: Cholecystectomy, Heart Catheterization With Stent, Orthopedic Surgery Additional Past Surgical History / Comment(s): rt leg repaired after break-has pins, lt wrist-plate and screws. lung bx, stents tung groins. Past Anesthesia/Blood Transfusion Reactions: Family History of Problems w/ Anesthesia Additional Past Anesthesia/Blood Transfusion Reaction / Comm: daughter has diff waking after aa Date of Last Stent Placement:: unk Past Psychological History: Depression Additional Psychological History / Comment(s): [place] and [place]. does'nt drive-either daughters or sister takes her places. has home 02, nebulizer. . Ongoing tobacco smoker stopping just may 2016. Has a history of lung cancer with radiation. Smoking Status: Former smoker Past Alcohol Use History: None Reported, Rare Additional Past Alcohol Use History / Comment(s): started smopking at age 14(1956), quit 2016 Past Drug Use History: None Reported - Past Family History Father Family Medical History: Congestive Heart Failure (CHF), COPD Additional Family Medical History / Comment(s): emphysema Mother Family Medical History: Cancer Medications and Allergies Home Medications Medication Instructions Recorded Confirmed Type Pantoprazole Sodium [Protonix] 40 mg PO QAM 09/23/16 08/04/20 History Apixaban [Eliquis] 2.5 mg PO BID tablet 10/02/16 08/04/20 Rx Fluticasone/Umeclidin/Vilanter 1 puff INHALATION RT-DAILY 04/19/20 08/04/20 History [Trelegy Ellipta 100-62.5-25] Nitroglycerin Sl Tabs [Nitrostat] 0.4 mg SUBLINGUAL Q5M PRN #20 tab 04/21/20 08/04/20 Rx ALPRAZolam [Xanax] 0.25 mg PO Q8H PRN 07/12/20 08/04/20 History Atorvastatin [Lipitor] 80 mg PO HS 07/12/20 08/04/20 History Cholecalciferol [Vitamin D3 (25 1,000 unit PO W/SUPPER 07/12/20 08/04/20 History Mcg = 1000 Iu)] Digoxin [Digitek] 125 mcg PO DAILY 07/12/20 08/04/20 History Enalapril [Vasotec] 10 mg PO BID 07/12/20 08/04/20 History Gabapentin 300 mg PO BID@0800,1200 07/12/20 08/06/20 History Gabapentin 600 mg PO HS 07/12/20 08/04/20 History L.acidoph,Paracasei, B.lactis 1 cap PO DAILY 07/12/20 08/04/20 History [Probiotic] PARoxetine [Paxil] 20 mg PO DAILY 07/12/20 08/04/20 History metFORMIN HCL [Glucophage] 500 mg PO DAILY 07/12/20 08/04/20 History amLODIPine [Norvasc] 5 mg PO BID #60 tab 07/13/20 08/04/20 Rx Albuterol Sulfate [Proventil Hfa] 2 puff INHALATION RT-Q6H PRN 08/04/20 08/04/20 History Cyanocobalamin (Vitamin B-12) 1,000 mcg PO DAILY 08/04/20 08/04/20 History [Vitamin B-12] Diltiazem HCl 120 mg PO BID 08/04/20 08/04/20 History Docusate [Colace] 100 mg PO DAILY PRN 08/04/20 08/04/20 History Lidocaine 5% Patch [Lidoderm 5% 1 patch TOPICAL DAILY PRN 08/04/20 08/04/20 History Patch] busPIRone HCl [Buspar] 5 mg PO TID 08/04/20 08/04/20 History tiZANidine HCL 2 mg PO BID 08/04/20 08/04/20 History Allergies Allergy/AdvReac Type Severity Reaction Status Date / Time No Known Allergies Allergy Verified 08/04/20 13:00 Surgical - Exam Vital Signs Temp Pulse Resp BP Pulse Ox 97.5 F L 47 L 18 149/63 97 08/04/20 11:21 08/04/20 11:21 08/04/20 11:21 08/04/20 11:21 08/04/20 11:21 General appearance: The patient is alert, oriented, in no acute distress. HET: Head is normocephalic and atraumatic. Neck: Supple without lymphadenopathy. Trachea midline. No audible carotid bruit Heart: S1 S2. Regular rate and rhythm. Lungs: No crackles or wheezes are heard. Abdomen: Soft, nontender, nondistended. Extremities: Normal skin color and turgor. Palpable bilateral radial and dorsalis pedis pulses. Neurological: No focal deficits. Strength and sensation are grossly intact. Results - Labs 08/05/20 09:27 08/05/20 09:27 Abnormal Lab Results - Last 24 Hours (Table) 08/05/20 08/05/20 08/05/20 Range/Units 09:27 09:27 16:34 POC Glucose (mg/dL) 183 H (75-99) mg/dL Hemoglobin A1c 6.9 H (4.0-6.0) % Triglycerides 173 H (<150) mg/dL Ur Leukocyte Esterase (Negative) Calcium Oxalate Crystal (None) /hpf 08/05/20 08/06/20 08/06/20 Range/Units 20:26 05:58 08:15 POC Glucose (mg/dL) 166 H 188 H (75-99) mg/dL Hemoglobin A1c (4.0-6.0) % Triglycerides (<150) mg/dL Ur Leukocyte Esterase Trace H (Negative) Calcium Oxalate Crystal Few H (None) /hpf 08/06/20 Range/Units 12:10 POC Glucose (mg/dL) 165 H (75-99) mg/dL Hemoglobin A1c (4.0-6.0) % Triglycerides (<150) mg/dL Ur Leukocyte Esterase (Negative) Calcium Oxalate Crystal (None) /hpf Diabetes panel 08/05/20 08/05/20 Range/Units 09:27 09:27 Hemoglobin A1c 6.9 H (4.0-6.0) % Triglycerides 173 H (<150) mg/dL HDL Cholesterol 51 (40-60) mg/dL Thyroid panel 08/05/20 Range/Units 09:27 TSH 1.680 (0.465-4.680) mIU/L Pituitary panel 08/05/20 Range/Units 09:27 TSH 1.680 (0.465-4.680) mIU/L - Imaging Comments: CT angiogram head and neck with moderate stenosis of the origin of the left internal carotid artery in the neck secondary to calcified plaque. The right common and internal carotid arteries with in the neck are wildly patent. No significant abnormality of the arterial circulation intracranially. A CT of the brain showed no acute bleed or mass effect. Sinus and changes. There is no interval change since the study of 11/01/2016. Carotid ultrasound: There is antegrade flow in the vertebral arteries. Images the measurement suggests approximate 70% stenosis of the left internal carotid artery more than 70% stenosis in the left external carotid artery. There is less than 50% stenosis in the right internal carotid artery. Assessment and Plan Assessment: 1. Bilateral internal carotid artery stenosis, left ICA approximately 70% per carotid ultrasound, right ICA less than 50% 2. Facial drooping, right upper extremity weakness 3. Bradycardia 4. Hypotension 5. History of atrial fibrillation on Eliquis 6. History of heart failure 7. History of COPD 8. TIA 9. Diabetes mellitus 10. History of DVT 11. Hyperlipidemia 12. History of vascular disease, patient reports she has stents in bilateral groin, approximately 20 years ago in [place] Plan: 1. Supportive care 2. CTA and carotid ultrasound reviewed with patient, discussion for possible vascular surgical intervention 3. MRI ordered, pending 4. Neurology on consult, appreciate their recommendations 5. Cardiology on consult 6. Continue Eliquis, aspirin and Lipitor 7. Further recommendations forthcoming based on recommendations from neurology Thank you for this consultation allowing us take part in the plan of care of the patient during her hospital stay The impression and plan of care has been dictated as directed. I performed a history and examination of this patient, discussed the same with the dictator. I agree with the dictator's note ,documented as a scribe. Any additional findings or plans will be noted.
[2020-08-06 17:08] LABS: Glucose,Whole Blood 232 mg/dL (75-99)
--- NOTE | 2020-08-06 18:33 | EEG ---
ELECTROENCEPHALOGRAM REPORT DATE OF SERVICE: 08/06/2020. CLINICAL HISTORY: This is an 80-year-old woman with reported tremor of upper extremity. This video EEG is obtained to evaluate for seizure and epileptiform activity. RELEVANT MEDICATION: The patient is not on any antiepileptic drugs. EEG TYPE: A routine 21-channel EEG is performed with video using the 10/20 electrode system. DESCRIPTION: Wakefulness and drowsiness only are obtained. During wakefulness, there is a posterior- dominant rhythm of low to moderate voltage, reactive, well modulated, of 8.5 to 9 hertz activity. Drowsiness: There is slowing and attenuation of the background activity. There is no physiological stage II sleep seen. There is occasional moderate to high voltage generalized intermittent rhythmic delta activity with frontal predominance (GIRDA). There is no focal slowing. Interictal and ictal are none. ACTIVATION PROCEDURE: Photic stimulation did not evoke a posterior driving response. There is no abnormality during the photic stimulation. Hyperventilation is not performed. CLINICAL INTERPRETATION: This is a normal routine EEG. There is no focal slowing, epileptiform discharge or seizure on the EEG. Clinical correlation is recommended. MMODL / IJN: [id number] /
--- NOTE | 2020-08-06 18:52 | P.PN ---
Subjective Progress Note Date: 08/06/20 I'm seeing the patient for the first time and he was evaluated by Dr. Holley on 08/05/[address] Holley's note for further neurological details. Per the patient's she denies any focal deficits. The she stated that the per her daughter she was told that she sound like a drunk person but per the patient's nurse the she sounds are clear without any aphasia and without any focal deficits that the nurse appreciates. The patient does agree she doesn't have any focal deficits and she does agree that that she sound much better today compared to her initial presentation. MRI of the brain is ordered and pending. Objective - Vital Signs Vital signs: Vital Signs Temp 98.4 F 08/06/20 04:00 Pulse 58 L 08/06/20 04:00 Resp 18 08/06/20 04:00 BP 133/63 08/06/20 04:00 Pulse Ox 99 08/06/20 04:00 Intake & Output 08/05/20 08/06/20 08/06/20 18:59 06:59 18:59 Intake Total 320 Balance 320 Weight 54.1 kg Intake: Oral 320 Other: Voiding Method Toilet # Voids 0 - Exam GENERAL: The patient is lying in bed and is not in acute distress. Cardiovascular: Left carotid bruit. NEUROLOGICAL: Higher mental function: The patient is awake, alert, oriented to self, place and time. Patient is following commands. No aphasia and no neglect. Cranial nerves: The pupils are round, equal and reactive to light and accommodation. Visual eason are full to confrontation throughout. Extraocular movement is intact no nystagmus is noted. Facial sensation is normal to touch throughout. The facial mild right lower facial droop (patient could not tell me if new or old). Hearing is mildly decreased bilaterally to hand rub. Tongue is midline and moved [id number] without any difficulty. No dysarthria is noted. Shoulder shrug is normal bilaterally. Motor: Gait is deferred. The strength is 5 over 5 throughout. Normal tone and bulk. Cerebellum: Normal finger to nose bilaterally but very rare I felt there was intensive tremor with [id number] over the right. Sensation: Sensation is normal to touch throughout. Reflexes (right/left): 2+ throughout Plantars are downgoing bilaterally. - Labs CBC & Chem 7: 08/05/20 09:27 08/05/20 09:27 Labs: Abnormal Lab Results - Last 24 Hours (Table) 08/05/20 08/05/20 08/05/20 Range/Units 09:27 09:27 12:26 POC Glucose (mg/dL) 169 H (75-99) mg/dL Hemoglobin A1c 6.9 H (4.0-6.0) % Triglycerides 173 H (<150) mg/dL Ur Leukocyte Esterase (Negative) Calcium Oxalate Crystal (None) /hpf 08/05/20 08/05/20 08/06/20 Range/Units 16:34 20:26 05:58 POC Glucose (mg/dL) 183 H 166 H 188 H (75-99) mg/dL Hemoglobin A1c (4.0-6.0) % Triglycerides (<150) mg/dL Ur Leukocyte Esterase (Negative) Calcium Oxalate Crystal (None) /hpf 08/06/20 Range/Units 08:15 POC Glucose (mg/dL) (75-99) mg/dL Hemoglobin A1c (4.0-6.0) % Triglycerides (<150) mg/dL Ur Leukocyte Esterase Trace H (Negative) Calcium Oxalate Crystal Few H (None) /hpf Assessment and Plan Assessment: 1. Right lower facial droop likely due left ICA occlusion (patient stated that she doesn't know if the right facial droop is acute or chronic). Patient symptoms a is either TIA if this was an old right facial droop or acute ischemic stroke. Neurological examination shows findings which may be consistent with a left cerebral infarct, however findings on the examination may be secondary to the patient's previous stroke. 2. Moderate left ICA stenosis (per carotid duplex 70%) 3. Labile blood pressure 4. Bradycardia 5. Diabetes mellitius 6. Proximal atrial fibrillation on long-term anticoagulation 7. History of coronary artery disease status post PCI Plan: 1. MRI of brain to further assess for ischemia is pending. I was notified by nurse that the MRI cannot be done because of the peripheral stent that were placed 25 years ago unknown information regarding the stents. I will get a repeat CT of the head tomorrow. 2. Vascular consultation for left ICA stenosis, I consulted Dr. Garcia Carotid duplex was reported as there is antegrade flow in the vertebral arteries. The images and measurements suggest approximately 70% stenosis in the left internal carotid artery and more than 70% stenosis in the left external carotid artery at. There is less than 50% stenosis in the right internal carotid artery. There is bilateral moderate plaque formation. Per CTA of the head and neck was reported as moderate stenosis of the origin of the left internal carotid artery in the neck secondary to calcified plaque. No significant abnormality of the arterial circulation intracranially. 3. I started the patient on Aspirin 81 mg daily. Patient is currently on Eliquis 2.5 mg 1 tablet twice a day. I increased the Lipitor from 40 mg to 80 mg daily for secondary stroke prophylaxis (and helps with carotid stenosis--diane que stablilization). 4. Lipid panel: Triglyceride is 173, cholesterol is 116, LDLs 30, HDL 51. The patient is within goal for LDL less than 70. TSH is 1.68 which is normal. 5. Echocardiogram is ordered. 6. PT, OT and speech therapy evaluations 7. EEG is ordered by primary team for reported jerking of upper extremities. Pre-liminary report: Is normal. There are no focal slowing, epileptiform discharges or seizure on EEG. Cardiology team is on board. The plan is discussed with the patient nurse. Will continue to follow. Drew Pino MD Neuro-Hospitalist Time with Patient: Less than 30
[2020-08-06 20:17] LABS: Glucose,Whole Blood 292 mg/dL (75-99)
[2020-08-06] MEDS: ALPRAZolam 0.25 MG TAB PO PRN (20:46)
[2020-08-06] MEDS: ATORVASTATIN 80 MG TAB PO SCH (20:46)
[2020-08-06] MEDS: INSULIN ASPART (NovoLOG) 100 UNIT/ML VIAL SQ SCH (20:47)
[2020-08-06] MEDS ORDERED: ATORVASTATIN 40 MG TAB PO SCH (21:00)
[2020-08-07] MEDS: SODIUM CHLORIDE 0.9% 1,000 ML IV SCH (02:42)
[2020-08-07 06:03] LABS: Glucose,Whole Blood 173 mg/dL (75-99)
[2020-08-07] MEDS: INSULIN ASPART (NovoLOG) 100 UNIT/ML VIAL SQ SCH ×4 (06:41→20:31)
--- NOTE | 2020-08-07 07:26 | ECHOF ---
Referral Reason:stroke MEASUREMENTS -------- HEIGHT: 160.0 cm WEIGHT: 54.0 kg BP: RVIDd: 2.6 cm (< 3.3) IVSd: 1.0 cm (0.6 - 1.1) LVIDd: 3.1 cm (3.9 - 5.3) LVPWd: 1.1 cm (0.6 - 1.1) IVSs: 1.4 cm LVIDs: 1.7 cm LVPWs: 1.5 cm Ao Diam: 3.0 cm (2.0 - 3.7) AV Cusp: 2.0 cm (1.5 - 2.6) LA Diam: 3.1 cm (2.7 - 3.8) MV EXCURSION: 13.883 mm (> 18.000) MV EF SLOPE: 26 mm/s (70 - 150) EPSS: 0.5 cm MV E Keaton: 0.60 m/s MV DecT: 226 ms MV A Keaton: 1.00 m/s MV E/A Ratio: 0.60 RAP: 5.00 mmHg RVSP: 29.66 mmHg FINDINGS -------- This was a technically difficult study with suboptimal views. The left ventricular size is normal. Left ventricular wall thickness is normal. Overall left vent ricular systolic function is normal with, an EF between 55 - 60 %. The right ventricle is normal in size. The left atrial size is normal. The right atrial size is normal. Lumason used The aortic valve is trileaflet and appears structurally normal. The mitral valve is normal. There is trace mitral regurgitation. The tricuspid valve appears structurally normal. Trace tricuspid regurgitation present. Right lor tricular systolic pressure is normal at < 35 mmHg. There is no pulmonic regurgitation present. The aortic root size is normal. There is no pericardial effusion. CONCLUSIONS -------- 1. The left ventricular size is normal. 2. Left ventricular wall thickness is normal. 3. Overall left ventricular systolic function is normal with, an EF between 55 - 60 %. 4. There is trace mitral regurgitation. 5. Trace tricuspid regurgitation present. 6. There is no pericardial effusion. SINGEING TORCH OPERATOR: Yenny Mccartney [facility]
[2020-08-07] MEDS: PANTOPRAZOLE 40 MG TABLET PO SCH (09:15)
[2020-08-07] MEDS: GABAPENTIN 300 MG CAP PO SCH ×3 (09:15→20:26)
[2020-08-07] MEDS: amLODIPine 5 MG TAB PO SCH ×2 (09:15→20:26)
[2020-08-07] MEDS: DILTIAZEM CD 120 MG CAP.ER.24H PO SCH (09:15)
[2020-08-07] MEDS: busPIRone HCl 5 MG TAB PO SCH ×3 (09:15→20:26)
[2020-08-07] MEDS: metFORMIN 500 MG TAB PO SCH (09:15)
[2020-08-07] MEDS: lisinopriL 20 MG TAB PO SCH (09:15)
[2020-08-07] MEDS: APIXABAN 2.5 MG TABLET PO SCH ×2 (09:15→20:26)
[2020-08-07] MEDS: PARoxetine 20 MG TAB PO SCH (09:15)
[2020-08-07] MEDS: LIDOCAINE 5% PATCH TOPICAL PRN (10:08)
[2020-08-07] MEDS: ASPIRIN 81 MG PO SCH (10:08)
--- NOTE | 2020-08-07 10:12 | CT ---
EXAMINATION TYPE: CT brain wo con DATE OF EXAM: 08/07/2020 COMPARISON: 08/05/2020 HISTORY: 80-year-old female left ICA stenosis, evaluate for any evolution of stroke, Stroke eval. TECHNIQUE: Examination was done in axial plane without intravenous contrast. Coronal and sagittal r econstructions performed. CT DLP: 1123.9 mGycm Automated exposure control for dose reduction was used. FINDINGS: There is no evidence of acute intracranial hemorrhage, acute ischemic changes, mass, mass-effect, or extra-axial fluid collection. There is no effacement of cerebral sulci or basal subarachnoid cister ns. There is no hydrocephalus. There is no midline shift. Diaz-white matter distinction is preserv ed. Redemonstrated mild to moderate generalized supratentorial volume loss and moderate to severe patchy and confluent white matter hypodensities in both cerebral hemispheres. 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 No evolving large vascular territory infarct is identified. Empty sella incidentally noted. Rightward nasal septal deviation. Mild mucosal thickening ethmoid air cells. Mastoid air cells well p neumatized. Orbits and globes are intact. IMPRESSION: Moderate to severe burden of chronic small vessel ischemic disease. If concern for subtle acute ische yahir, follow-up MRI. No evolving large vascular territory infarct is identified.
--- NOTE | 2020-08-07 10:51 | P.PN ---
Subjective Progress Note Date: 08/08/15 Per the patient's she denies any focal deficits. The she stated that the per her daughter she was told that she sound like a drunk person but per the patient's nurse the she sounds are clear without any aphasia and without any focal deficits that the nurse appreciates. The patient does agree she doesn't have any focal deficits and she does agree that that she sound much better today compared to her initial presentation. Repeat CT of the head today since could not get MRI brain and was done to see if there is any acute/subacute ischemia that was not picked up on the initial CT and it's reported as moderate to severe burden of chronic small vessel ischemic disease. There is no evolving large vascular territory infarct is identified. Routine EEG is normal. There are no focal slowing, Toprol discharges or seizure on the EEG. Objective - Vital Signs Vital signs: Vital Signs Temp 96.8 F L 08/07/20 08:00 Pulse 61 08/07/20 08:00 Resp 18 08/07/20 08:00 BP 119/58 08/07/20 08:00 Pulse Ox 100 08/07/20 08:00 Intake & Output 08/06/20 08/07/20 08/07/20 18:59 06:59 18:59 Intake Total 1200 600 Output Total 500 0 Balance 1200 -500 600 Weight 54.7 kg Intake: Oral 1200 600 Output: Urine 500 0 Stool 0 Other: Voiding Method Toilet # Voids 2 0 # Bowel Movements 0 - Exam GENERAL: The patient is lying in bed and is not in acute distress. Cardiovascular: Left carotid bruit. NEUROLOGICAL: Higher mental function: The patient is awake, alert, oriented to self, place and time. Patient is following commands. No aphasia and no neglect. Cranial nerves: The pupils are round, equal and reactive to light and a ccommodation. Visual eason are full to confrontation throughout. Extraocular movement is intact no nystagmus is noted. Facial sensation is normal to touch throughout. The facial mild right lower facial droop (patient could not tell me if new or old). Hearing is mildly decreased bilaterally to hand rub. Tongue is midline and moved [id number] without any difficulty. No dysarthria is noted. Shoulder shrug is normal bilaterally. Motor: Gait is deferred. The strength is 5 over 5 throughout. Normal tone and bulk. Cerebellum: Normal finger to nose bilaterally but very rare I felt there was intensive tremor with [id number] over the right. Sensation: Sensation is normal to touch throughout. Reflexes (right/left): 2+ throughout Plantars are downgoing bilaterally. - Labs CBC & Chem 7: 08/05/20 09:27 08/05/20 09:27 Labs: Abnormal Lab Results - Last 24 Hours (Table) 08/06/20 08/06/20 08/06/20 Range/Units 12:10 17:05 20:16 POC Glucose (mg/dL) 165 H 232 H 292 H (75-99) mg/dL 08/07/20 Range/Units 06:02 POC Glucose (mg/dL) 173 H (75-99) mg/dL Assessment and Plan Assessment: 1. Right lower facial droop likely due left ICA occlusion (patient stated that she doesn't know if the right facial droop is acute or chronic). Patient symptoms a is either TIA if this was an old right facial droop or acute ischemic stroke. Neurological examination shows findings which may be consistent with a left cerebral infarct, however findings on the examination may be secondary to the patient's previous stroke. 2. Moderate left ICA stenosis (per carotid duplex 70%) and less than 50% stenosis in the right internal carotid artery. 3. Labile blood pressure 4. Bradycardia 5. Diabetes mellitius 6. Proximal atrial fibrillation on long-term anticoagulation 7. History of coronary artery disease status post PCI Plan: 1. MRI of brain to further assess for ischemia is pending. I was notified by nurse that the MRI cannot be done because of the peripheral stent that were placed 25 years ago unknown information regarding the stents. Repeat CT of the head today since could not get MRI brain and was done to see if there is any acute/subacute ischemia that was not picked up on the initial CT and it's reported as moderate to severe burden of chronic small vessel ischemic disease. There is no evolving large vascular territory infarct is identified. 2. Vascular surgery team in on board. Carotid duplex was reported as there is antegrade flow in the vertebral arteries. The images and measurements suggest approximately 70% stenosis in the left internal carotid artery and more than 70% stenosis in the left external carotid artery at. There is less than 50% stenosis in the right internal juarez tid artery. There is bilateral moderate plaque formation. Per CTA of the head and neck was reported as moderate stenosis of the origin of the left internal carotid artery in the neck secondary to calcified plaque. No significant abnormality of the arterial circulation intracranially. 3. Continue on Aspirin 81 mg daily. Patient is currently on Eliquis 2.5 mg 1 tablet twice a day. Continue Lipitor 80 mg daily for secondary stroke prophylaxis (and helps with carotid stenosis--plaque stablilization). I spoke with a vascular surgery team and the they're planning of surgical intervention in the next 1-2 weeks and I and minute in agreement that the acting the patient will benefit from the surgical intervention especially since the she had a significant the left carotid stenosis as well as she has a right facial droop so seems symptomatic from a neurological standpoint. The vascular surgic al team would like to start the patient on Plavix and I'm in agreement that she can be on the Plavix 75 and we can discontinue aspirin 81 mg indefinitely. And to continue Eliquis 2.5 mg especially that she has history of atrial fibrillation. 4. Lipid panel: Triglyceride is 173, cholesterol is 116, LDLs 30, HDL 51. The patient is within goal for LDL less than 70. TSH is 1.68 which is normal. 5. Echocardiogram is reported as left ventricular wall thickness is normal. Ejection fraction of 55-60%. Left atrial size is normal. 6. PT, OT and speech therapy evaluations 7. Routine EEG on 08/06/20 (ordered by primary team for jerking of upper extremities) is normal. There are no focal slowing, epileptiform discharges or seizure on the EEG. Cardiology team is on board. There is no further neurological workup needed at this time. The patient is clear from neurology. Perspective and she needs to follow-up with a neurologist within 1-2 weeks as an outpatient. Patient also needs to follow-up with a vascular surgery team as an outpatient as well. The plan is discussed with the patient nurse. Drew Pino MD Neuro-Hospitalist Time with Patient: Less than 30
[2020-08-07 11:32] LABS: Glucose,Whole Blood 137 mg/dL (75-99)
[2020-08-07] MEDS: CLOPIDOGREL 75 MG TAB PO SCH (12:56)
--- NOTE | 2020-08-07 12:57 | P.PN ---
Subjective Progress Note Date: 08/07/20 HISTORY OF PRESENT ILLNESS: 08/05/2020-Glenroy Gould This is a pleasant 80-year-old female past medical history significant for coronary artery disease status post PCI, paroxysmal atrial fibrillation on long-term anticoagulation, hypertension, dyslipidemia, valvular heart disease and COPD. She follows in the office with Dr. Lance. Apparently back in February she had a change off Cardizem and started Norvasc. She was subsequently seen in the hospital on July 13 and recommended to increase Norvasc to 5 mg twice daily. She was then seen in the office with Dr. colbert in her blood pressure was extremely high and the Norvasc was discontinued and she was started on Cardizem at 120 mg twice daily which she took for one week. Now she complains that her heart rate was low in the 30s and blood pressure was low at home. Patient presented to [facility] emergency center or heart rate was found to be in the 40s. EKG was sinus bradycardia at 47. Troponins negative on 2 draws. Digoxin level I.5, potassium 4.3. Patient was placed on the observati on unit and while up there this morning at around 8:30 she had an episode where she became very weak and shaky and had tremors in her hands. This most bilaterally. She felt like she was going to pass out. Prior to this episode she had a run of V. tach 12 beats. During this episode her blood pressure was high at 201/66 and heart rate was 66. potline monitor was sinus bradycardia during the episode. Cardizem was decreased to 30 mg at the time of admission and she did receive a dose this morning as well as lisinopril. A neurology consult was done virtually to rule out stroke. Patient was sequentially transferred to the cardiac stepdown unit and is asymptomatic at the time of evaluation. Patient denies having any chest pain, shortness of breath, palpitations, lightheadedness or dizziness. No syncopal episode. Daughter is at bedside. Eechocardiogram obtained in the office March 2020 revealed preserved LV systolic function with ejection fraction 55%, mild to moderate mitral regurgitation, moderate tricuspid regurgitation and mild pulmonary hypertension with RVSP of 35 mmHg 08/06/2020 Patient examined this morning at the bedside. Patient denies chest pain or pressure. She denies shortness of breath. Telemetry reveals sinus mechanism with a heart rate in the 60s. Blood pressure this morning is elevated at 130/79. Previous reading at 4 AM was 133/63. 08/07/2020 Patient examined this morning at the bedside. Patient denies chest pain or pressure. Denies shortness of breath. She reports feeling very weak today. She is scheduled for a repeat head CT. She is maintaining sinus rhythm on telemetry with heart rate in the 70s. PHYSICAL EXAM: VITAL SIGNS: Reviewed. GENERAL: Well-developed in no acute distress. NECK: Supple. No JVD or thyromegaly LUNGS: Respirations even and unlabored. Lungs essentially clear to auscultation bilaterally. HEART: Regular rate and rhythm. S1 and S2 heard. Systolic murmur noted. EXTREMITIES: No clubbing or cyanosis. Peripheral pulses intact. No lower extremity edema ASSESSMENT: Episode of weakness, tremors, rule out TIA/CVA, do not suspect arrhythmia Moderate left ICA stenosis Labile blood pressure and multiple medication adjustments over the past several months Paroxysmal atrial fibrillation, on long-term anticoagulation with Eliquis, currently maintaining sinus rhythm Hypertension Hyperlipidemia COPD Bradycardia, improving PLAN: Continue Eliquis for anticoagulation Continue telemetry monitoring Continue to monitor blood pressure Continue Norvasc and lisinopril Continue current dose of Cardizem Continue to hold digoxin Further recommendations pending patient's course Nurse practitioner note has been reviewed by physician. Signing provider agrees with the documented findings, assessment, and plan of care. Objective - Vital Signs Vital signs: Vital Signs Temp 96.8 F L 08/07/20 08:00 Pulse 61 08/07/20 08:00 Resp 18 08/07/20 08:00 BP 119/58 08/07/20 08:00 Pulse Ox 100 08/07/20 08:00 Intake & Output 08/06/20 08/07/20 08/07/20 18:59 06:59 18:59 Intake Total 1200 600 Output Total 500 0 Balance 1200 -500 600 Weight 54.7 kg Intake: Oral 1200 600 Output: Urine 500 0 Stool 0 Other: Voiding Method Toilet # Voids 2 0 # Bowel Movements 0 - Labs CBC & Chem 7: 08/05/20 09:27 08/05/20 09:27 Labs: Abnormal Lab Results - Last 24 Hours (Table) 08/06/20 08/06/20 08/07/20 Range/Units 17:05 20:16 06:02 POC Glucose (mg/dL) 232 H 292 H 173 H (75-99) mg/dL 08/07/20 Range/Units 11:31 POC Glucose (mg/dL) 137 H (75-99) mg/dL
--- NOTE | 2020-08-07 13:13 | P.PN ---
Subjective Progress Note Date: 08/07/20 Principal diagnosis: Carotid stenosis The patient is seen and examined lying in bed. She denies any acute changes through the night. She denies any focal deficits. She underwent an EEG yesterday with neurology which was normal. She had a repeat computed tomography scan that showed no acute findings. Objective - Vital Signs Vital signs: Vital Signs Temp 96.8 F L 08/07/20 08:00 Pulse 61 08/07/20 08:00 Resp 18 08/07/20 08:00 BP 119/58 08/07/20 08:00 Pulse Ox 100 08/07/20 08:00 Intake & Output 08/06/20 08/07/20 08/07/20 18:59 06:59 18:59 Intake Total 1200 600 Output Total 500 0 Balance 1200 -500 600 Weight 54.7 kg Intake: Oral 1200 600 Output: Urine 500 0 Stool 0 Other: Voiding Method Toilet # Voids 2 0 # Bowel Movements 0 - Exam General appearance: The patient is alert, oriented, in no acute distress. HET: Head is normocephalic and atraumatic. Pupils are equal and reactive. Neck: Supple without lymphadenopathy. Trachea midline. Heart: S1 S2. Regular rate and rhythm. Lungs: No crackles or wheezes are heard. Abdomen: Soft, nontender, nondistended. Extremities: Normal skin color and turgor. No cyanosis, rash, ulceration, clubbing, or edema. Radial and pedal pulses are 2/4 bilaterally. Neurological: Alert and oriented 3. Slight right facial droop. Protrudes mid line. Speech is fluent, patient answers questions appropriately. Strength and sensation are grossly intact. - Labs CBC & Chem 7: 08/05/20 09:27 08/05/20 09:27 Labs: Abnormal Lab Results - Last 24 Hours (Table) 08/06/20 08/06/20 08/06/20 Range/Units 12:10 17:05 20:16 POC Glucose (mg/dL) 165 H 232 H 292 H (75-99) mg/dL 08/07/20 Range/Units 06:02 POC Glucose (mg/dL) 173 H (75-99) mg/dL Assessment and Plan Assessment: 1. Bilateral internal carotid artery stenosis, left ICA approximately 70% per carotid ultrasound, right ICA less than 50% 2. Facial drooping, right upper extremity weakness 3. Bradycardia 4. Hypotension 5. History of atrial fibrillation on Eliquis 6. History of heart failure 7. History of COPD 8. TIA 9. Diabetes mellitus 10. History of DVT 11. Hyperlipidemia 12. History of vascular disease, patient reports she has stents in bilateral groin, approximately 20 years ago in [place] Plan: 1. Supportive care 2. CTA and carotid ultrasound reviewed with patient, CT of brain reviewed 3. MRI ordered, however patient unable to undergo due to previous stents 4. Neurology on consult, appreciate their recommendations 5. Cardiology on consult 6. Continue Eliquis, will add Plavix, discontinue aspirin, continue Lipitor 80 mg 7. Carotid surgical interventions discussed in detail with patient and family yesterday, recommend outpatient carotid surgical intervention next week. This will be scheduled by the office. 8. Patient may be discharged home from a vascular surgical standpoint. Thank you for this consultation allowing us take part in the plan of care of the patient during her hospital stay The impression and plan of care has been dictated as directed. I performed a history and examination of this patient, discussed the same with the dictator. I agree with the dictator's note ,documented as a scribe. Any additional findings or plans will be noted.
--- NOTE | 2020-08-07 14:00 | P.PN ---
Subjective Progress Note Date: 08/07/20 HISTORY OF PRESENT ILLNESS 80 years old female who I have seen in the clinic for the first time last month with past medical history of chronic hypoxic failure and COPD on 2 L of oxygen with exertion and at bedtime coronary artery disease with multivessel stenting, peripheral artery disease with previous stenting, history of non-small cell lung cancer status post radiation with possible reccurrence with new lesion in the right middle lobe 8 X 4 mm in size with negative bone scan follows Dr. Patel as outpatient, chronic fibromyalgia chronic nicotine dependence ex-smoker, degenerative joint disease, Raynaud's, chronically fractured 3 ribs on the right that has not healed the years, hypertension, hyperlipidemia and paroxysmal atrial fibrillation with last HUE with cardioversion in [address] Rodriguez as outpatient last admitted for A. fib with RVR on 07/12/2020 comes in with sinus bradycardia with hypotension. Apparently patient has been switched from Cardizem to Norvasc in February which led to worsening of her atrial fibrillation leading to admission in June. Patient was seen post hospitalization and was found to be in A. fib with RVR. Norvasc was discontinued and patient was placed on Cardizem. Patient was thought to be taking 180 mg at home and therefore Cardizem was increased to 120 mg twice a day. Patient has been taking Cardizem for the past 1 week and started noticing dizziness and generalized weakness. Patient's vitals in the ER suggestive heart rate of 43 on his EKG appears to be sinus bradycardia no apron blocks noted. Patient will be kept on telemetry. Blood pressure 186/74 on admission and improved to 156/62 with improvement of HR to 60 / min . Diltiazem will be started at a low dose of 30 mg 3 times a day. Digoxin level will be ordered. Cardiology consultation 08/05 and was found to have increased weakness associated with dizziness, nausea vomiting and slurring of speech. Patient was unable to smile. Patient also complains of numbness and tingling involving the upper extremities associated with blurring of vision. Patient complains of tingling associated in the right arm with tingling involving her neck. Patient also complains of increased weakness including the upper and lower extremity on the left Patient has tremors bilaterally upper ext. Symptoms are intermittent and started at 8:30 this [facility] after patient received her morning medications. Patient was assessed by telling. CT head and CTA were obtained. CT suggests moderate stenosis of the left internal carotid artery in the neck secondary to calcified laque. Carotid Dopplers ordered. MRI ordered stat. EEG ordered. Neurology consult placed. Brief episode of PVC was noted in the night. Currently patient remains in sinus bradycardia. Blood pressure continues to stay elevated. Hydralazine started at 10 mg IV every 6 for systolic more than 160. Norvasc added at 5 mg twice a day along with lisinopril. Diltiazem held for now. Patient's abdomen appeared distended and patient is tender on palpation. Ultrasound abdomen ordered Monitor closely for bradycardia with possible need for pacemaker. Patient does have underlying jerky movements of the upper extremity for which she sees Dr.Shuayto damari zarate recommend muscular relaxant for the patient. 08/06: Patient is seen today sitting in recliner appears to be in no acute di stress. She does state that she just walked with physical therapy and she thought she had jerking sensation all over. Carotid ultrasound revealed 70% stenosis in the left internal carotid artery and neurology as added vascular consult. Abdominal ultrasound for right upper quadrant pain and nausea revealed no acute findings evident to account for patient's symptoms. Cardiology has resumed Cardizem CD 120 mg daily. Heart rate has been in the 50s to 80s. Blood pressure 180/79, pulse ox 97% on 2 L. We are adding and a clonidine patch. Blood sugars are running between 165 and 188. Urinalysis clear with trace leukoesterase. MRI of the brain, echocardiogram and EEG are all pending. Cheli archer are recommending home with home care. 08/07: Patient is afebrile, heart rate 80, blood pressure this morning 108/69, blood pressure at 10 PM was 212/84. Heart rate seems to be running in the 60s to 80s. Pulse ox 100% on 2 L nasal cannula. Echocardiogram reveals EF of 55- 60%, trace mitral regurgitation, trace tricuspid regurgitation. EEG was normal. MRI of the brain is unable to be done due to peripheral stents. Patient has been seen by neurology with plan for repeat CAT scan of the brain. Vascular consult in place for left internal carotid artery stenosis of 70%. Patient to be on eliquis and aspirin 81 mg and Lipitor. Plan is for outpatient carotid surgery intervention next week which will be scheduled through their office. Patient was cleared for discharge from vascular surgery. Repeat CAT scan of the brain done today revealed moderate to severe burden of chronic small vessel ischemic change. No evolving large vascular territory infarct. The patient is complaining of right rib pain. Chest x-ray ordered to evaluate feel that this is costochondritis. Patient states she is not feeling well today and feels weak. Physical therapy has evaluated and states she is safe for home with home care. And to monitor overnight and probable discharge home tomorrow. REVIEW OF SYSTEMS Constitutional: Denies chills, Denies fever, denies lethargy, denies malaise, Denies poor appetite, reports weakness, Denies weight loss denies dizziness Eyes: Denies decreased vision, denies diplopia, denies discharge, denies pain Ears: deny: decreased hearing Ears, nose, mouth and throat: Denies dental pain, Denies headache, Denies nasal discharge, Denies nose pain Cardiovascular: Denies chest pain, Denies decreased exercise tolerance, Denies edema, Denies high blood pressure, Denies irregular heart beat, Denies palpitations, Denies paroxysmal nocturnal dyspnea, Denies rapid heart beat, Denies shortness of breath Respiratory: Denies congestion, Denies cough, Denies cough with sputum, Denies dyspnea, Denies home oxygen, Denies wheezing Gastrointestinal: Denies abdominal pain, Denies change in bowel habits, Denies coffee ground emesis, Denies early satiety, Denies excessive gas, Denies heartburn, Denies hematemesis, Denies hematochezia, Denies loss of appetite, denies nausea, denies vomiting Genitourinary: Denies dysuria, Denies flank pain, Denies kidney stones, Denies menorrhagia, Denies urgency, Denies urinary frequency Musculoskeletal: Denies gait dysfunction, Denies limitation of motion, Denies morning stiffness, endorses muscle cramps endorses tremors endorses tingling in the upper extremity Integumentary: Denies rash, Denies wounds, Denies brittle nails, Denies change in hair/nails, Denies darkening of skin Neurological: Endorses balance difficulties, denies change in speech, denies double vision, Denies gait dysfunction, Denies loss of vision, endorses motor disturbance, denies numbness, Denies paralysis, denies paresthesias, denies jerks involving bilateral upper extremities Denies seizures Psychiatric: Denies anxiety, Denies depression Endocrine: Denies excessive sweating, Denies excessive thirst, Denies high blood sugars, Denies palpitations Hematologic/Lymphatic: Denies easy bruising, Denies lymphadenopathy PHYSICAL EXAMINATION Gen: This is an 80-year-old female. She is sitting up in bed and appears to be comfortable and in no acute distress. HEENT: Head is atraumatic, normocephalic. Pupils equal, round. Sclerae is anicteric. NECK: Supple. No JVD. No lymphadenopathy. No thyromegaly. LUNGS: Clear to auscultation. No wheezes or rhonchi. No intercostal retractions. HEART: Regular rate and rhythm. No murmur. ABDOMEN: Soft. Bowel sounds are present. No masses. No tenderness. EXTREMITIES: No pedal edema. No calf tenderness. NEUROLOGICAL: Patient is awake, alert and oriented x3. Cranial nerves 2 through 12 are grossly intact. Finger to nose test is normal. 4+/5 weakness in the wound ASSESSMENT AND PLAN #1 presyncope secondary to bradycardia hypotension resolved. Cardiology consult placed. Digitoxin level 1.5. Patient is off digoxin. Cardiology has resume Cardizem CD 120 mg daily. Heart rate is well controlled. #2 paroxysmal atrial fibrillation currently in sinus bradycardia Continue eliquis 2.5 mg twice a day , Cardizem 120 mg daily. Telemetry with no blocks. #3 Intermittent episodes of slurring of speech, with weakness involving left upper and lower extremities rule out CVA MRI stat likely due to left internal carotid artery stenosis. CT head negative. CT angiogram suggestive of moderate stenosis of the left internal carotid artery denies neck due to calcified plaque. Continue eliquisa and lipitor. Aspirin 81 mg added. Vascular consult appreciated. # 4. Sinus bradycardia with possible sick sinus syndrome. Hold Cardizem. Monitor for bradycardia continue telemetry possible pacemaker placement if no improvement in her treated #5 hypertension on vasotec at home , started on [id number] mg by mouth daily . Norvasc added at 5 mg twice a day. Cardizem on hold due to bradycardia. Hydralazine 10 IV every 6 for systolic more than 160 Cardiology to see patient tomorrow #6 hyperlipidemia continue atorvastatin 80 mg daily at bedtime #7 degenerative disc disease and lumbar radiculopathy continue gabapentin 600 mg daily at bedtime and 300 mg by mouth daily with [place] 5 every 12 when lidocaine patch daily #8 coronary artery disease status post stenting continue aspirin, digoxin, atorvastatin #9right middle lobe lung density 18-4 mm scarlike opacity versus pigmented did not do. Bone scan has been negative. Patient follows oncology Dr. Patel as outpatient. #10. peripheral artery diseasestatus post stenting on aspirin #11 history of sleep apnea but patient does not wear CPAP at night #12 history of COPD/chronic hypoxic respiratory failure on 2 L off oxygen continue new albuterol as needed #13 history of non-small cell lung cancer status post radiation follows Dr. Patel, as outpatient #14 history of CVA/TIA with left-sided weakness, rule out recrudescence of stroke. MRI ordered #15 history of DVT postsurgical resolved #16 fibromyalgia stable #17 history of GERD continue pantoprazole 40 mg by mouth daily #18 history of Anxiety an d depression continue Paxil 20 mg by mouth daily. 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 Patient sees Dr. Kira hassan as outpatient and was started on muscle relaxant #22 Anxiety patient initiated on BuSpar as outpatient. Xanax 0.25 twice a day as needed for anxiety continue Paxil 20 mg daily #23 Diffuse abdominal pain. Bowel sounds are present. Patient does have nausea. Continue pantoprazole 40 mg every morning. Ultrasound abdomen ordered #24carotid stenosis. Vascular consult appreciated. Plan for outpatient surgical intervention next week. DISCHARGE PLAN Home with [facility] on Thursday Impression and plan of care have been directed as dictated by the signing physician. Consuelo Gould nurse practitioner acting as scribe for signing physician. Objective - Vital Signs Vital signs: Vital Signs Temp 98.0 F 08/07/20 04:00 Pulse 80 08/07/20 04:00 Resp 18 08/07/20 04:00 BP 108/69 08/07/20 04:00 Pulse Ox 100 08/07/20 04:00 Intake & Output 08/06/20 08/07/20 08/07/20 18:59 06:59 18:59 Intake Total 1200 Output Total 500 0 Balance 1200 -500 0 Weight 54.7 kg Intake: Oral 1200 Output: Urine 500 0 Stool 0 Other: Voiding Method Toilet # Voids 2 0 # Bowel Movements 0 - Labs CBC & Chem 7: 08/05/20 09:27 08/05/20 09:27 Labs: Abnormal Lab Results - Last 24 Hours (Table) 08/06/20 08/06/20 08/06/20 Range/Units 08:15 12:10 17:05 POC Glucose (mg/dL) 165 H 232 H (75-99) mg/dL Ur Leukocyte Esterase Trace H (Negative) Calcium Oxalate Crystal Few H (None) /hpf 08/06/20 08/07/20 Range/Units 20:16 06:02 POC Glucose (mg/dL) 292 H 173 H (75-99) mg/dL Ur Leukocyte Esterase (Negative) Calcium Oxalate Crystal (None) /hpf
--- NOTE | 2020-08-07 14:09 | XR ---
EXAMINATION TYPE: XR chest 2V DATE OF EXAM: 08/07/2020 COMPARISON: 08/04/2020 HISTORY: 80-year-old female chest wall pain TECHNIQUE: PA and lateral views FINDINGS: Heart normal size. Atherosclerotic arch calcifications. There is patchy opacity in the right midlung. Increased retrosternal clear space. No pleural effusion. Old healed right-sided rib fracture deformi ties. IMPRESSION: COPD. Patchy opacity at the right midlung. Early developing pneumonia not excluded. Follow-up recomme nded.
[2020-08-07 16:45] LABS: Glucose,Whole Blood 176 mg/dL (75-99)
[2020-08-07] MEDS: ATORVASTATIN 80 MG TAB PO SCH (20:26)
[2020-08-07] MEDS: ACETAMINOPHEN TAB 325 MG TAB PO PRN (20:26)
[2020-08-07 21:02] LABS: Glucose,Whole Blood 149 mg/dL (75-99)
[2020-08-08] MEDS: SODIUM CHLORIDE 0.9% 1,000 ML IV SCH ×2 (04:10→17:12)
[2020-08-08 06:24] LABS: Glucose,Whole Blood 169 mg/dL (75-99)
[2020-08-08] MEDS: INSULIN ASPART (NovoLOG) 100 UNIT/ML VIAL SQ SCH ×4 (06:47→21:38)
[2020-08-08] MEDS: APIXABAN 2.5 MG TABLET PO SCH ×2 (08:47→21:37)
[2020-08-08] MEDS: GABAPENTIN 300 MG CAP PO SCH ×3 (08:47→21:37)
[2020-08-08] MEDS: amLODIPine 5 MG TAB PO SCH ×2 (08:47→20:45)
[2020-08-08] MEDS: CLOPIDOGREL 75 MG TAB PO SCH (08:48)
[2020-08-08] MEDS: busPIRone HCl 5 MG TAB PO SCH ×3 (08:48→21:37)
[2020-08-08] MEDS: DILTIAZEM CD 120 MG CAP.ER.24H PO SCH (08:48)
[2020-08-08] MEDS: PANTOPRAZOLE 40 MG TABLET PO SCH (08:49)
[2020-08-08] MEDS: lisinopriL 20 MG TAB PO SCH (08:49)
[2020-08-08] MEDS: metFORMIN 500 MG TAB PO SCH (08:49)
[2020-08-08] MEDS: PARoxetine 20 MG TAB PO SCH (08:50)
[2020-08-08] MEDS: LIDOCAINE 5% PATCH TOPICAL PRN (11:02)
[2020-08-08 12:11] LABS: Glucose,Whole Blood 220 mg/dL (75-99)
--- NOTE | 2020-08-08 13:29 | P.PN ---
Subjective Progress Note Date: 08/08/20 HISTORY OF PRESENT ILLNESS 80 years old female who I have seen in the clinic for the first time last month with past medical history of chronic hypoxic failure and COPD on 2 L of oxygen with exertion and at bedtime coronary artery disease with multivessel stenting, peripheral artery disease with previous stenting, history of non-small cell lung cancer status post radiation with possible reccurrence with new lesion in the right middle lobe 8 X 4 mm in size with negative bone scan follows Dr. Patel as outpatient, chronic fibromyalgia chronic nicotine dependence ex-smoker, degenerative joint disease, Raynaud's, chronically fractured 3 ribs on the right that has not healed the years, hypertension, hyperlipidemia and paroxysmal atrial fibrillation with last HUE with cardioversion in [address] Rodriguez as outpatient last admitted for A. fib with RVR on 07/12/2020 comes in with sinus bradycardia with hypotension. Apparently patient has been switched from Cardizem to Norvasc in February which led to worsening of her atrial fibrillation leading to admission in June. Patient was seen post hospitalization and was found to be in A. fib with RVR. Norvasc was discontinued and patient was placed on Cardizem. Patient was thought to be taking 180 mg at home and therefore Cardizem was increased to 120 mg twice a day. Patient has been taking Cardizem for the past 1 week and started noticing dizziness and generalized weakness. Patient's vitals in the ER suggestive heart rate of 43 on his EKG appears to be sinus bradycardia no apron blocks noted. Patient will be kept on telemetry. Blood pressure 186/74 on admission and improved to 156/62 with improvement of HR to 60 / min . Diltiazem will be started at a low dose of 30 mg 3 times a day. Digoxin level will be ordered. Cardiology consultation 08/05 and was found to have increased weakness associated with dizziness, nausea vomiting and slurring of speech. Patient was unable to smile. Patient also complains of numbness and tingling involving the upper extremities associated with blurring of vision. Patient complains of tingling associated in the right arm with tingling involving her neck. Patient also complains of increased weakness including the upper and lower extremity on the left Patient has tremors bilaterally upper ext. Symptoms are intermittent and started at 8:30 [facility] after patient received her morning medications. Patient was assessed by telling. CT head and CTA were obtained. CT suggests moderate stenosis of the left internal carotid artery in the neck secondary to calcified laque. Carotid Dopplers ordered. MRI ordered stat. EEG ordered. Neurology consult placed. Brief episode of PVC was noted in the night. Currently patient remains in sinus bradycardia. Blood pressure continues to stay elevated. Hydralazine started at 10 mg IV every 6 for systolic more than 160. Norvasc added at 5 mg twice a day along with lisinopril. Diltiazem held for now. Patient's abdomen appeared distended and patient is tender on palpation. Ultrasound abdomen ordered Monitor closely for bradycardia with possible need for pacemaker. Patient does have underlying jerky movements of the upper extremity for which she sees Dr.Shuayto damari zarate recommend muscular relaxant for the patient. 08/06: Patient is seen today sitting in recliner appears to be in no acute di stress. She does state that she just walked with physical therapy and she thought she had jerking sensation all over. Carotid ultrasound revealed 70% stenosis in the left internal carotid artery and neurology as added vascular consult. Abdominal ultrasound for right upper quadrant pain and nausea revealed no acute findings evident to account for patient's symptoms. Cardiology has resumed Cardizem CD 120 mg daily. Heart rate has been in the 50s to 80s. Blood pressure 180/79, pulse ox 97% on 2 L. We are adding and a clonidine patch. Blood sugars are running between 165 and 188. Urinalysis clear with trace leukoesterase. MRI of the brain, echocardiogram and EEG are all pending. Therapies are recommending home with home care. 08/07: Patient is afebrile, heart rate 80, blood pressure this morning 108/69, blood pressure at 10 PM was 212/84. Heart rate seems to be running in the 60s to 80s. Pulse ox 100% on 2 L nasal cannula. Echocardiogram reveals EF of 55- 60%, trace mitral regurgitation, trace tricuspid regurgitation. EEG was normal. MRI of the brain is unable to be done due to peripheral stents. Patient has been seen by neurology with plan for repeat CAT scan of the brain. Vascular consult in place for left internal carotid artery stenosis of 70%. Patient to be on eliquis and aspirin 81 mg and Lipitor. Plan is for outpatient carotid surgery intervention next week which will be scheduled through their office. Patient was cleared for discharge from vascular surgery. Repeat CAT scan of the brain done today revealed moderate to severe burden of chronic small vessel ischemic change. No evolving large vascular territory infarct. The patient is complaining of right rib pain. Chest x-ray ordered to evaluate feel that this is costochondritis. Patient states she is not feeling well today and feels weak. Physical therapy has evaluated and states she is safe for home with home care. And to monitor overnight and probable discharge home tomorrow. 08/08: Patient had pauses on the court monitor and cardiology felt Cardizem for now. The patient is afraid to go home. Her heart rate is running in the 50s and 60s. Blood sugars are running between 149 and 220. Patient has been afebrile, blood pressure 121/61, pulse ox 99% on 2 L nasal cannula. Repeat chest x-ray reveals COPD. Patchy opacities at the right midlung. Early developing pneumonia not excluded. Patient will be started on azithromycin. We'll plan to continue to monitor the hospital, continue physical therapy and plan for discharge tomorrow. REVIEW OF SYSTEMS Constitutional: Denies chills, Denies fever, denies lethargy, denies malaise, Denies poor appetite, reports weakness, Denies weight loss denies dizziness Eyes: Denies decreased vision, denies diplopia, denies discharge, denies pain Ears: deny: decreased hearing Ears, nose, mouth and throat: Denies dental pain, Denies headache, Denies nasal discharge, Denies nose pain Cardiovascular: Denies chest pain, Denies decreased exercise tolerance, Denies edema, Denies high blood pressure, Denies irregular heart beat, Denies palpitations, Denies paroxysmal nocturnal dyspnea, Denies rapid heart beat, Denies shortness of breath Respiratory: Denies congestion, Denies cough, Denies cough with sputum, Denies dyspnea, Denies home oxygen, Denies wheezing Gastrointestinal: Denies abdominal pain, Denies change in bowel habits, Denies coffee ground emesis, Denies early satiety, Denies excessive gas, Denies heartburn, Denies hematemesis, Denies hematochezia, Denies loss of appetite, denies nausea, denies vomiting Genitourinary: Denies dysuria, Denies flank pain, Denies kidney stones, Denies menorrhagia, Denies urgency, Denies urinary frequency Musculoskeletal: Denies gait dysfunction, Denies limitation of motion, Denies morning stiffness, endorses muscle cramps endorses tremors endorses tingling in the upper extremity Integumentary: Denies rash, Denies wounds, Denies brittle nails, Denies change in hair/nails, Denies darkening of skin Neurological: Endorses balance difficulties, denies change in speech, denies double vision, Denies gait dysfunction, Denies loss of vision, endorses motor disturbance, denies numbness, Denies paralysis, denies paresthesias, denies jerks involving bilateral upper extremities Denies seizures Psychiatric: Denies anxiety, Denies depression Endocrine: Denies excessive sweating, Denies excessive thirst, Denies high blood sugars, Denies palpitations Hematologic/Lymphatic: Denies easy bruising, Denies lymphadenopathy PHYSICAL EXAMINATION Gen: This is an 80-year-old female. She is sitting up in bed and appears to be comfortable and in no acute distress. HEENT: Head is atraumatic, normocephalic. Pupils equal, round. Sclerae is anicteric. NECK: Supple. No JVD. No lymphadenopathy. No thyromegaly. LUNGS: Clear to auscultation. No wheezes or rhonchi. No intercostal retractions. HEART: Regular rate and rhythm. No murmur. ABDOMEN: Soft. Bowel sounds are present. No masses. No tenderness. EXTREMITIES: No pedal edema. No calf tenderness. NEUROLOGICAL: Patient is awake, alert and oriented x3. Cranial nerves 2 through 12 are grossly intact. Finger to nose test is normal. 4+/5 weakness in the wound ASSESSMENT AND PLAN #1 presyncope secondary to bradycardia hypotension resolved. Cardiology consult placed. Digitoxin level 1.5. Patient is off digoxin. Cardiology has resume Cardizem CD 120 mg daily. Heart rate is well controlled. #2 paroxysmal atrial fibrillation currently in sinus bradycardia Continue eliquis 2.5 mg twice a day , Cardizem 120 mg daily. Telemetry with no blocks. #3 Intermittent episodes of slurring of speech, with weakness involving left upper and lower extremities rule out CVA MRI stat likely due to left internal carotid artery stenosis. CT head negative. CT angiogram suggestive of moderate stenosis of the left internal carotid artery denies neck due to calcified plaque. Continue eliquisa and lipitor. Aspirin 81 mg added. Vascular consult appreciated. # 4. Sinus bradycardia with possible sick sinus syndrome. Hold Cardizem. Monitor for bradycardia continue telemetry possible pacemaker placement if no improvement in her treated #5 hypertension on vasotec at home , started on mg by mouth daily . Norvasc added at 5 mg twice a day. Cardizem on hold due to bradycardia. Hydralazine 10 IV every 6 for systolic more than 160 Cardiology to see patient tomorrow #6 hyperlipidemia continue atorvastatin 80 mg daily at bedtime #7 degenerative disc disease and lumbar radiculopathy continue gabapentin 600 mg daily at bedtime and 300 mg by mouth daily with [place] 5 every 12 when lidocaine patch daily #8 coronary artery disease status post stenting continue aspirin, digoxin, atorvastatin #9right middle lobe lung density 18-4 mm scarlike opacity versus pigmented did not do. Bone scan has been negative. Patient follows oncology Dr. Patel as outpatient. #10. peripheral artery diseasestatus post stenting on aspirin #11 history of sleep apnea but patient does not wear CPAP at night #12 history of COPD/chronic hypoxic respiratory failure on 2 L off oxygen continue new albuterol as needed #13 history of non-small cell lung cancer status post radiation follows Dr. Patel, as outpatient #14 history of CVA/TIA with left-sided weakness, rule out recrudescence of stroke. MRI ordered #15 history of DVT postsurgical resolved #16 fibromyalgia stable #17 history of GERD continue pantoprazole 40 mg by mouth daily #18 history of Anxiety an d depression continue Paxil 20 mg by mouth daily. 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 Patient sees Dr. Sánchez as outpatient and was started on muscle relaxant #22 Anxiety patient initiated on BuSpar as outpatient. Xanax 0.25 twice a day as needed for anxiety continue Paxil 20 mg daily #23 Diffuse abdominal pain. Bowel sounds are present. Patient does have nausea. Continue pantoprazole 40 mg every morning. Ultrasound abdomen ordered #24carotid stenosis. Vascular consult appreciated. Plan for outpatient surgical intervention next week. 25. Possible early pneumonia. Patient started on azithromycin DISCHARGE PLAN Home with [facility] on Impression and plan of care have been directed as dictated by the signing physician. Consuelo Gould nurse practitioner acting as scribe for signing physician. Objective - Vital Signs Vital signs: Vital Signs Temp 97.8 F 08/08/20 07:25 Pulse 51 L 08/08/20 07:25 Resp 18 08/08/20 08:30 BP 106/61 08/08/20 07:25 Pulse Ox 99 08/08/20 07:25 Intake & Output 08/07/20 08/08/20 08/08/20 18:59 06:59 18:59 Intake Total 1080 476 Output Total 0 0 Balance 1080 476 Weight 55.1 kg Intake: Oral 1080 476 Output: Urine 0 Stool 0 0 Other: Voiding Method Toilet Toilet # Voids 2 1 # Bowel Movements 0 - Labs CBC & Chem 7: 08/05/20 09:27 08/05/20 09:27 Labs: Abnormal Lab Results - Last 24 Hours (Table) 08/07/20 08/07/20 08/07/20 Range/Units 11:31 16:44 20:30 POC Glucose (mg/dL) 137 H 176 H 149 H (75-99) mg/dL 08/08/20 Range/Units 05:58 POC Glucose (mg/dL) 169 H (75-99) mg/dL
--- NOTE | 2020-08-08 13:58 | P.PN ---
Subjective Progress Note Date: 08/08/20 HISTORY OF PRESENT ILLNESS: 08/05/2020-Glenroy Gould This is a pleasant 80-year-old female past medical history significant for coronary artery disease status post PCI, paroxysmal atrial fibrillation on long-term anticoagulation, hypertension, dyslipidemia, valvular heart disease and COPD. She follows in the office with Dr. Lance. Apparently back in February she had a change off Cardizem and started Norvasc. She was subsequently seen in the hospital on July 13 and recommended to increase Norvasc to 5 mg twice daily. She was then seen in the office with Dr. colbert in her blood pressure was extremely high and the Norvasc was discontinued and she was started on Cardizem at 120 mg twice daily which she took for one week. Now she complains that her heart rate was low in the 30s and blood pressure was low at home. Patient presented to [facility] emergency center or heart rate was found to be in the 40s. EKG was sinus bradycardia at 47. Troponins negative on 2 draws. Digoxin level I.5, potassium 4.3. Patient was placed on the observati on unit and while up there this morning at around 8:30 she had an episode where she became very weak and shaky and had tremors in her hands. This most bilaterally. She felt like she was going to pass out. Prior to this episode she had a run of V. tach 12 beats. During this episode her blood pressure was high at 201/66 and heart rate was 66. pvc monitor was sinus bradycardia during the episode. Cardizem was decreased to 30 mg at the time of admission and she did receive a dose this morning as well as lisinopril. A neurology consult was done virtually to rule out stroke. Patient was sequentially transferred to the cardiac stepdown unit and is asymptomatic at the time of evaluation. Patient denies having any chest pain, shortness of breath, palpitations, lightheadedness or dizziness. No syncopal episode. Daughter is at bedside. Eechocardiogram obtained in the office March 2020 revealed preserved LV systolic function with ejection fraction 55%, mild to moderate mitral regurgitation, moderate tricuspid regurgitation and mild pulmonary hypertension with RVSP of 35 mmHg 08/06/2020 Patient examined this morning at the bedside. Patient denies chest pain or pressure. She denies shortness of breath. Telemetry reveals sinus mechanism with a heart rate in the 60s. Blood pressure this morning is elevated at 130/79. Previous reading at 4 AM was 133/63. 08/07/2020 Patient examined this morning at the bedside. Patient denies chest pain or pressure. Denies shortness of breath. She reports feeling very weak today. She is scheduled for a repeat head CT. She is maintaining sinus rhythm on telemetry with heart rate in the 70s. 08/08/2020 Patient examined this morning at the bedside. Patient states her weakness has improved since yesterday. She denies chest pain or pressure. Denies shortness of breath. Patient is heart rate was in the 30s and 40s overnight. She had pauses on telemetry around 2 seconds. Patient remains in sinus mechanism this morning but is bradycardic with heart rate in the 50s. Patient already received her morning dose of Cardizem CD. PHYSICAL EXAM: VITAL SIGNS: Reviewed. GENERAL: Well-developed in no acute distress. NECK: Supple. No JVD or thyromegaly LUNGS: Respirations even and unlabored. Lungs essentially clear to auscultation bilaterally. HEART: Regular rate and rhythm. S1 and S2 heard. Systolic murmur noted. EXTREMITIES: No clubbing or cyanosis. Peripheral pulses intact. No lower extremity edema ASSESSMENT: Episode of weakness, tremors, r/o CVA/TIA, CT head negative Moderate left ICA stenosis Labile blood pressure and multiple medication adjustments over the past several months Paroxysmal atrial fibrillation, on long-term anticoagulation with Eliquis, currently maintaining sinus rhythm Hypertension Hyperlipidemia COPD Bradycardia PLAN: Continue Eliquis for anticoagulation Continue to monitor blood pressure Continue Norvasc and lisinopril Continue to hold digoxin Patient already received her morning dose of Cardizem. We will discontinue Cardizem. Continue to monitor on telemetry for another 24 hours. Further recommendations pending patient's course Nurse practitioner note has been reviewed by physician. Signing provider agrees with the documented findings, assessment, and plan of care. Objective - Vital Signs Vital signs: Vital Signs Temp 98.2 F 08/08/20 11:40 Pulse 54 L 08/08/20 11:40 Resp 18 08/08/20 11:40 BP 121/61 08/08/20 11:40 Pulse Ox 100 08/08/20 10:00 Intake & Output 08/07/20 08/08/20 08/08/20 18:59 06:59 18:59 Intake Total 1080 476 Output Total 0 0 Balance 1080 476 Weight 55.1 kg Intake: Oral 1080 476 Output: Urine 0 Stool 0 0 Other: Voiding Method Toilet Toilet # Voids 2 1 # Bowel Movements 0 - Labs CBC & Chem 7: 08/05/20 09:27 08/05/20 09:27 Labs: Abnormal Lab Results - Last 24 Hours (Table) 08/07/20 08/07/20 08/08/20 Range/Units 16:44 20:30 05:58 POC Glucose (mg/dL) 176 H 149 H 169 H (75-99) mg/dL 08/08/20 Range/Units 11:39 POC Glucose (mg/dL) 220 H (75-99) mg/dL
[2020-08-08 17:12] LABS: Glucose,Whole Blood 137 mg/dL (75-99)
[2020-08-08] MEDS: AZITHROMYCIN 500 MG TAB PO SCH (17:12)
[2020-08-08 21:06] LABS: Glucose,Whole Blood 179 mg/dL (75-99)
[2020-08-08] MEDS: ATORVASTATIN 80 MG TAB PO SCH (21:37)
[2020-08-09] MEDS: INSULIN ASPART (NovoLOG) 100 UNIT/ML VIAL SQ SCH ×4 (06:21→20:26)
[2020-08-09 06:27] LABS: Glucose,Whole Blood 217 mg/dL (75-99)
[2020-08-09] MEDS: APIXABAN 2.5 MG TABLET PO SCH ×2 (09:42→19:58)
[2020-08-09] MEDS: CLOPIDOGREL 75 MG TAB PO SCH (09:42)
[2020-08-09] MEDS: PANTOPRAZOLE 40 MG TABLET PO SCH (09:42)
[2020-08-09] MEDS: GABAPENTIN 300 MG CAP PO SCH ×3 (09:42→19:58)
[2020-08-09] MEDS: PARoxetine 20 MG TAB PO SCH (09:42)
[2020-08-09] MEDS: AZITHROMYCIN 500 MG TAB PO SCH (09:42)
[2020-08-09] MEDS: metFORMIN 500 MG TAB PO SCH (09:42)
[2020-08-09] MEDS: busPIRone HCl 5 MG TAB PO SCH ×3 (09:42→21:20)
[2020-08-09] MEDS: lisinopriL 20 MG TAB PO SCH (11:34)
[2020-08-09] MEDS: amLODIPine 5 MG TAB PO SCH (11:34)
[2020-08-09 11:49] LABS: Glucose,Whole Blood 157 mg/dL (75-99)
[2020-08-09] MEDS: SODIUM CHLORIDE 0.9% 1,000 ML IV SCH ×3 (12:36→23:30)
--- NOTE | 2020-08-09 13:51 | P.PN ---
Subjective Progress Note Date: 08/09/20 HISTORY OF PRESENT ILLNESS: 08/05/2020-Glenroy Gould This is a pleasant 80-year-old female past medical history significant for coronary artery disease status post PCI, paroxysmal atrial fibrillation on long-term anticoagulation, hypertension, dyslipidemia, valvular heart disease and COPD. She follows in the office with Dr. Lance. Apparently back in February she had a change off Cardizem and started Norvasc. She was subsequently seen in the hospital on July 13 and recommended to increase Norvasc to 5 mg twice daily. She was then seen in the office with Dr. colbert in her blood pressure was extremely high and the Norvasc was discontinued and she was started on Cardizem at 120 mg twice daily which she took for one week. Now she complains that her heart rate was low in the 30s and blood pressure was low at home. Patient presented to [facility] emergency center or heart rate was found to be in the 40s. EKG was sinus bradycardia at 47. Troponins negative on 2 draws. Digoxin level I.5, potassium 4.3. Patient was placed on the observati on unit and while up there this morning at around 8:30 she had an episode where she became very weak and shaky and had tremors in her hands. This most bilaterally. She felt like she was going to pass out. Prior to this episode she had a run of V. tach 12 beats. During this episode her blood pressure was high at 201/66 and heart rate was 66. court monitor was sinus bradycardia during the episode. Cardizem was decreased to 30 mg at the time of admission and she did receive a dose this morning as well as lisinopril. A neurology consult was done virtually to rule out stroke. Patient was sequentially transferred to the cardiac stepdown unit and is asymptomatic at the time of evaluation. Patient denies having any chest pain, shortness of breath, palpitations, lightheadedness or dizziness. No syncopal episode. Daughter is at bedside. Eechocardiogram obtained in the office March 2020 revealed preserved LV systolic function with ejection fraction 55%, mild to moderate mitral regurgitation, moderate tricuspid regurgitation and mild pulmonary hypertension with RVSP of 35 mmHg 08/06/2020 Patient examined this morning at the bedside. Patient denies chest pain or pressure. She denies shortness of breath. Telemetry reveals sinus mechanism with a heart rate in the 60s. Blood pressure this morning is elevated at 130/79. Previous reading at 4 AM was 133/63. 08/07/2020 Patient examined this morning at the bedside. Patient denies chest pain or pressure. Denies shortness of breath. She reports feeling very weak today. She is scheduled for a repeat head CT. She is maintaining sinus rhythm on telemetry with heart rate in the 70s. 08/08/2020 Patient examined this morning at the bedside. Patient states her weakness has improved since yesterday. She denies chest pain or pressure. Denies shortness of breath. Patient is heart rate was in the 30s and 40s overnight. She had pauses on telemetry around 2 seconds. Patient remains in sinus mechanism this morning but is bradycardic with heart rate in the 50s. Patient already received her morning dose of Cardizem CD. 08/09/2020 Patient examined this morning is at bedside. Patient states she feels very weak today. She denies chest pain or pressure. Denies shortness of breath. Telemetry monitoring reveals sinus bradycardia with a heart rate in the 50s. Patient's Cardizem CD has been discontinued. Her last dose was yesterday morning. PHYSICAL EXAM: VITAL SIGNS: Reviewed. GENERAL: Well-developed in no acute distress. NECK: Supple. No JVD or thyromegaly LUNGS: Respirations even and unlabored. Lungs essentially clear to auscultation bilaterally. HEART: Regular rate and rhythm. S1 and S2 heard. Systolic murmur noted. EXTREMITIES: No clubbing or cyanosis. Peripheral pulses intact. No lower extremity edema ASSESSMENT: Episode of weakness, tremors, r/o CVA/TIA, CT head negative Moderate left ICA stenosis Labile blood pressure and multiple medication adjustments over the past several months Paroxysmal atrial fibrillation, on long-term anticoagulation with Eliquis, currently maintaining sinus rhythm Hypertension Hyperlipidemia COPD Bradycardia PLAN: Continue Eliquis for anticoagulation Continue to monitor blood pressure Continue Norvasc and lisinopril Continue to hold digoxin and Cardizem Continue to monitor on telemetry. No plans for pacemaker insertion at this time. Give 200cc bolus, then 100cc for 12 hours, then decrease IV fluids to 50cc Further recommendations pending patient's course Nurse practitioner note has been reviewed by physician. Signing provider agrees with the documented findings, assessment, and plan of care. Objective - Vital Signs Vital signs: Vital Signs Temp 97.9 F 08/09/20 07:50 Pulse 47 L 08/09/20 07:50 Resp 16 08/09/20 07:50 BP 86/42 08/09/20 07:50 Pulse Ox 100 08/09/20 07:50 Intake & Output 08/08/20 08/09/20 08/09/20 18:59 06:59 18:59 Intake Total 952 440 240 Output Total 200 700 0 Balance 752 -260 240 Weight 56.5 kg Intake: Oral 952 440 240 Output: Urine 200 700 Stool 0 0 Other: Voiding Method Toilet Toilet - Labs CBC & Chem 7: 08/05/20 09:27 08/05/20 09:27 Labs: Abnormal Lab Results - Last 24 Hours (Table) 08/08/20 08/08/20 08/09/20 Range/Units 16:55 20:24 06:12 POC Glucose (mg/dL) 137 H 179 H 217 H (75-99) mg/dL 08/09/20 Range/Units 11:47 POC Glucose (mg/dL) 157 H (75-99) mg/dL
[2020-08-09 13:55] VITALS: BMI 22.0
--- NOTE | 2020-08-09 14:28 | P.PN ---
Subjective Progress Note Date: 08/09/20 HISTORY OF PRESENT ILLNESS 80 years old female who I have seen in the clinic for the first time last month with past medical history of chronic hypoxic failure and COPD on 2 L of oxygen with exertion and at bedtime coronary artery disease with multivessel stenting, peripheral artery disease with previous stenting, history of non-small cell lung cancer status post radiation with possible reccurrence with new lesion in the right middle lobe 8 X 4 mm in size with negative bone scan follows Dr. Patel as outpatient, chronic fibromyalgia chronic nicotine dependence ex-smoker, degenerative joint disease, Raynaud's, chronically fractured 3 ribs on the right that has not healed the years, hypertension, hyperlipidemia and paroxysmal atrial fibrillation with last HUE with cardioversion in [address] Rodriguez as outpatient last admitted for A. fib with RVR on 07/12/2020 comes in with sinus bradycardia with hypotension. Apparently patient has been switched from Cardizem to Norvasc in February which led to worsening of her atrial fibrillation leading to admission in June. Patient was seen post hospitalization and was found to be in A. fib with RVR. Norvasc was discontinued and patient was placed on Cardizem. Patient was thought to be taking 180 mg at home and therefore Cardizem was increased to 120 mg twice a day. Patient has been taking Cardizem for the past 1 week and started noticing dizziness and generalized weakness. Patient's vitals in the ER suggestive heart rate of 43 on his EKG appears to be sinus bradycardia no apron blocks noted. Patient will be kept on telemetry. Blood pressure 186/74 on admission and improved to 156/62 with improvement of HR to 60 / min . Diltiazem will be started at a low dose of 30 mg 3 times a day. Digoxin level will be ordered. Cardiology consultation 08/05 and was found to have increased weakness associated with dizziness, nausea vomiting and slurring of speech. Patient was unable to smile. Patient also complains of numbness and tingling involving the upper extremities associated with blurring of vision. Patient complains of tingling associated in the right arm with tingling involving her neck. Patient also complains of increased weakness including the upper and lower extremity on the left Patient has tremors bilaterally upper ext. Symptoms are intermittent and started at 8:30 this [facility] after patient received her morning medications. Patient was assessed by telling. CT head and CTA were obtained. CT suggests moderate stenosis of the left internal carotid artery in the neck secondary to calcified laque. Carotid Dopplers ordered. MRI ordered stat. EEG ordered. Neurology consult placed. Brief episode of PVC was noted in the night. Currently patient remains in sinus bradycardia. Blood pressure continues to stay elevated. Hydralazine started at 10 mg IV every 6 for systolic more than 160. Norvasc added at 5 mg twice a day along with lisinopril. Diltiazem held for now. Patient's abdomen appeared distended and patient is tender on palpation. Ultrasound abdomen ordered Monitor closely for bradycardia with possible need for pacemaker. Patient does have underlying jerky movements of the upper extremity for which she sees Dr.Shuayto damari zarate recommend muscular relaxant for the patient. 08/06: Patient is seen today sitting in recliner appears to be in no acute di stress. She does state that she just walked with physical therapy and she thought she had jerking sensation all over. Carotid ultrasound revealed 70% stenosis in the left internal carotid artery and neurology as added vascular consult. Abdominal ultrasound for right upper quadrant pain and nausea revealed no acute findings evident to account for patient's symptoms. Cardiology has resumed Cardizem CD 120 mg daily. Heart rate has been in the 50s to 80s. Blood pressure 180/79, pulse ox 97% on 2 L. We are adding and a clonidine patch. Blood sugars are running between 165 and 188. Urinalysis clear with trace leukoesterase. MRI of the brain, echocardiogram and EEG are all pending. Therapies are recommending home with home care. 08/07: Patient is afebrile, heart rate 80, blood pressure this morning 108/69, blood pressure at 10 PM was 212/84. Heart rate seems to be running in the 60s to 80s. Pulse ox 100% on 2 L nasal cannula. Echocardiogram reveals EF of 55- 60%, trace mitral regurgitation, trace tricuspid regurgitation. EEG was normal. MRI of the brain is unable to be done due to peripheral stents. Patient has been seen by neurology with plan for repeat CAT scan of the brain. Vascular consult in place for left internal carotid artery stenosis of 70%. Patient to be on eliquis and aspirin 81 mg and Lipitor. Plan is for outpatient carotid surgery intervention next week which will be scheduled through their office. Patient was cleared for discharge from vascular surgery. Repeat CAT scan of the brain done today revealed moderate to severe burden of chronic small vessel ischemic change. No evolving large vascular territory infarct. The patient is complaining of right rib pain. Chest x-ray ordered to evaluate feel that this is costochondritis. Patient states she is not feeling well today and feels weak. Physical therapy has evaluated and states she is safe for home with home care. And to monitor overnight and probable discharge home tomorrow. 08/08: Patient had pauses on the monitoring manager and cardiology felt Cardizem for now. The patient is afraid to go home. Her heart rate is running in the 50s and 60s. Blood sugars are running between 149 and 220. Patient has been afebrile, blood pressure 121/61, pulse ox 99% on 2 L nasal cannula. Repeat chest x-ray reveals COPD. Patchy opacities at the right midlung. Early developing pneumonia not excluded. Patient will be started on azithromycin. We'll plan to continue to monitor the hospital, continue physical therapy and plan for discharge tomorrow. 08/09: Patient had bradycardia in the 30s last evening, currently at 50. She was also hypotensive and Catapres patch was removed and lisinopril and amlodipine were held this morning. Dr. Sorto) he plans to monitor, no plan for pacemaker insertion at this time. Digoxin and Cardizem are on hold. No change in discharge plan. REVIEW OF SYSTEMS Constitutional: Denies chills, Denies fever, denies lethargy, denies malaise, Denies poor appetite, reports weakness, Denies weight loss denies dizziness Eyes: Denies decreased vision, denies diplopia, denies discharge, denies pain Ears: deny: decreased hearing Ears, nose, mouth and throat: Denies dental pain, Denies headache, Denies nasal discharge, Denies nose pain Cardiovascular: Denies chest pain, Denies decreased exercise tolerance, Denies edema, Denies high blood pressure, Denies irregular heart beat, Denies palpitations, Denies paroxysmal nocturnal dyspnea, Denies rapid heart beat, Denies shortness of breath Respiratory: Denies congestion, Denies cough, Denies cough with sputum, Denies dyspnea, Denies home oxygen, Denies wheezing Gastrointestinal: Denies abdominal pain, Denies change in bowel habits, Denies coffee ground emesis,Denies heartburn, Denies hematemesis, Denies hematochezia, Denies loss of appetite, denies nausea, denies vomiting Genitourinary: Denies dysuria, Denies flank pain, Denies kidney stones, Denies menorrhagia, Denies urgency, Denies urinary frequency Musculoskeletal: Denies gait dysfunction, Denies limitation of motion, Denies morning stiffness, endorses muscle cramps endorses tremors endorses tingling in the upper extremity Integumentary: Denies rash, Denies wounds, Denies brittle nails, Denies change in hair/nails, Denies darkening of skin Neurological: Endorses balance difficulties, denies change in speech, denies amelia ble vision, Denies gait dysfunction, Denies loss of vision, endorses motor disturbance, denies numbness, Denies paralysis, denies paresthesias, denies jerks involving bilateral upper extremities Denies seizures Psychiatric: Denies anxiety, Denies depression Endocrine: Denies excessive sweating, Denies excessive thirst, Denies high blood sugars, Denies palpitations Hematologic/Lymphatic: Denies easy bruising, Denies lymphadenopathy PHYSICAL EXAMINATION Gen: This is an 80-year-old female. She is sitting up in bed and appears to be comfortable and in no acute distress is noted. HEENT: Head is atraumatic, normocephalic. Pupils equal, round. Sclerae is anict mireille. NECK: Supple. No JVD. No lymphadenopathy. No thyromegaly. LUNGS: Clear to auscultation. No wheezes or rhonchi. No intercostal retractions. HEART: Regular rate and rhythm. No murmur. ABDOMEN: Soft. Bowel sounds are present. No masses. No tenderness. EXTREMITIES: No pedal edema. No calf tenderness. NEUROLOGICAL: Patient is awake, alert and oriented x3. Cranial nerves 2 through 12 are grossly intact. Finger to nose test is normal. 4+/5 weakness in the wound ASSESSMENT AND PLAN #1 presyncope secondary to bradycardia hypotension resolved. Cardiology consult appreciated. Digitoxin level 1.5. Patient is off digoxin and off Cardizem. Continue to monitor heart rate closely. #2 paroxysmal atrial fibrillation currently in sinus bradycardia Continue eliquis 2.5 mg twice a day , Cardizem 120 mg daily. Telemetry with no blocks. #3 Intermittent episodes of slurring of speech, with weakness involving left upper and lower extremities rule out CVA MRI stat likely due to left internal carotid artery stenosis. CT head negative. CT angiogram suggestive of moderate stenosis of the left internal carotid artery denies neck due to calcified plaque. Continue eliquisa and lipitor. Aspirin 81 mg added. Vascular consult appreciated. # 4. Sinus bradycardia with possible sick sinus syndrome. Hold Cardizem. Monitor for bradycardia continue telemetry possible pacemaker placement if no improvement in her treated #5 hypertension on vasotec at home , started on [id number] mg by mouth daily . Norvasc added at 5 mg twice a day. Cardizem on hold due to bradycardia. Hydralazine 10 IV every 6 for systolic more than 160 Cardiology to see patient tomorrow #6 hyperlipidemia continue atorvastatin 80 mg daily at bedtime #7 degenerative disc disease and lumbar radiculopathy continue gabapentin 600 mg daily at bedtime and 300 mg by mouth daily with [place] 5 every 12 when lidocaine patch daily #8 coronary artery disease status post stenting continue aspirin, digoxin, atorvastatin #9right middle lobe lung density 18-4 mm scarlike opacity versus pigmented did not do. Bone scan has been negative. Patient follows oncology Dr. Patel as outpatient. #10. peripheral artery diseasestatus post stenting on aspirin #11 history of sleep apnea but patient does not wear CPAP at night #12 history of COPD/chronic hypoxic respiratory failure on 2 L off oxygen continue new albuterol as needed #13 history of non-small cell lung cancer status post radiation follows Dr. Patel, as outpatient #14 history of CVA/TIA with left-sided weakness, rule out recrudescence of stroke. MRI ordered #15 history of DVT postsurgical resolved #16 fibromyalgia stable #17 history of GERD continue pantoprazole 40 mg by mouth daily #18 history of Anxiety an d depression continue Paxil 20 mg by mouth daily. 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 Patient sees Dr. Sánchez as outpatient and was started on muscle relaxant #22 Anxiety patient initiated on BuSpar as outpatient. Xanax 0.25 twice a day as needed for anxiety continue Paxil 20 mg daily #23 Diffuse abdominal pain. Bowel sounds are present. Patient does have aidan sea. Continue pantoprazole 40 mg every morning. Ultrasound abdomen ordered #24carotid stenosis. Vascular consult appreciated. Plan for outpatient surgical intervention next week. 25. Possible early pneumonia. Patient started on azithromycin DISCHARGE PLAN Home with [facility] Impression and plan of care have been directed as dictated by the signing physician. Consuelo Gould nurse practitioner acting as scribe for signing physician. Objective - Vital Signs Vital signs: Vital Signs Temp 97.8 F 08/08/20 16:00 Pulse 42 L 08/09/20 04:00 Resp 16 08/09/20 04:00 BP 106/51 08/09/20 04:00 Pulse Ox 95 08/09/20 04:00 Intake & Output 08/08/20 08/09/20 08/09/20 18:59 06:59 18:59 Intake Total 952 440 240 Output Total 200 700 Balance 752 -260 240 Weight 56.5 kg Intake: Oral 952 440 240 Output: Urine 200 700 Stool 0 Other: Voiding Method Toilet - Labs CBC & Chem 7: 08/05/20 09:27 08/05/20 09:27 Labs: Abnormal Lab Results - Last 24 Hours (Table) 08/08/20 08/08/20 08/08/20 Range/Units 11:39 16:55 20:24 POC Glucose (mg/dL) 220 H 137 H 179 H (75-99) mg/dL 08/09/20 Range/Units 06:12 POC Glucose (mg/dL) 217 H (75-99) mg/dL
[2020-08-09] MEDS ORDERED: SODIUM CHLORIDE 0.9% 200 ML IV SCH (14:45)
[2020-08-09 16:40] LABS: Glucose,Whole Blood 134 mg/dL (75-99)
[2020-08-09] MEDS: LIDOCAINE 5% PATCH TOPICAL PRN (19:57)
[2020-08-09] MEDS: MAG HYDROX/AL HYDROX/SIMETH 30 ML CUP PO PRN (19:58)
[2020-08-09] MEDS: ATORVASTATIN 80 MG TAB PO SCH (19:58)
[2020-08-09 20:04] LABS: Glucose,Whole Blood 183 mg/dL (75-99)
[2020-08-09] MEDS: ALPRAZolam 0.25 MG TAB PO PRN (21:20)
[2020-08-10] MEDS: ACETAMINOPHEN TAB 325 MG TAB PO PRN (02:56)
[2020-08-10] MEDS ORDERED: SODIUM CHLORIDE 0.9% 1,000 ML IV SCH (03:00)
[2020-08-10 06:13] LABS: Glucose,Whole Blood 137 mg/dL (75-99)
[2020-08-10] MEDS: INSULIN ASPART (NovoLOG) 100 UNIT/ML VIAL SQ SCH ×3 (06:13→16:44)
[2020-08-10] MEDS: AZITHROMYCIN 500 MG TAB PO SCH (08:04)
[2020-08-10] MEDS: metFORMIN 500 MG TAB PO SCH (08:04)
[2020-08-10] MEDS: APIXABAN 2.5 MG TABLET PO SCH (08:04)
[2020-08-10] MEDS: busPIRone HCl 5 MG TAB PO SCH ×2 (08:05→16:42)
[2020-08-10] MEDS: GABAPENTIN 300 MG CAP PO SCH ×2 (08:05→13:30)
[2020-08-10] MEDS: PARoxetine 20 MG TAB PO SCH (08:05)
[2020-08-10] MEDS: PANTOPRAZOLE 40 MG TABLET PO SCH (08:05)
[2020-08-10] MEDS: CLOPIDOGREL 75 MG TAB PO SCH (08:05)
[2020-08-10 11:34] LABS: Glucose,Whole Blood 253 mg/dL (75-99)
[2020-08-10] MEDS ORDERED: amLODIPine 5 MG TAB PO SCH (12:15)
--- NOTE | 2020-08-10 14:08 | P.DS ---
Providers Date of admission: 08/05/20 09:46 Expected date of discharge: 08/10/20 Attending physician: Kaylie Ivey MD Consults: 08/05/20 09:42 Consult Physician Routine Consulting Provider: Reina Holley Consult Reason/Comments: code stroke Do you want consulting provider notified?: Yes 08/05/20 12:03 Consult Physician Routine Consulting Provider: Ifeanyi Martin Consult Reason/Comments: bradycardia Do you want consulting provider notified?: Already Contacted Primary care physician: Kaylie Ivey MD Hospital Course: HISTORY OF PRESENT ILLNESS 80 years old female who I have seen in the clinic for the first time last month with past medical history of chronic hypoxic failure and COPD on 2 L of oxygen with exertion and at bedtime coronary artery disease with multivessel stenting, peripheral artery disease with previous stenting, history of non-small cell lung cancer status post radiation with possible reccurrence with new lesion in the right middle lobe 8 X 4 mm in size with negative bone scan follows Dr. Patel as outpatient, chronic fibromyalgia chronic nicotine dependence ex-smoker, degenerative joint disease, Raynaud's, chronically fractured 3 ribs on the right that has not healed the years, hypertension, hyperlipidemia and paroxysmal atrial fibrillation with last HUE with cardioversion in [address] Rodriguez as outpatient last admitted for A. fib with RVR on 07/12/2020 comes in with sinus bradycardia with hypotension. Apparently patient has been switched from Cardizem to Norvasc in February which led to worsening of her atrial fibrillation leading to admission in June. Patient was seen post hospitalization and was found to be in A. fib with RVR. Norvasc was discontinued and patient was placed on Cardizem. Patient was thought to be taking 180 mg at home and therefore Cardizem was increased to 120 mg twice a day. Patient has been taking Cardizem for the past 1 week and started noticing dizziness and generalized weakness. Patient's vitals in the ER suggestive heart rate of 43 on his EKG appears to be sinus bradycardia no apron blocks noted. Patient will be kept on telemetry. Blood pressure 186/74 on admission and improved to 156/62 with improvement of HR to 60 / min . Diltiazem will be started at a low dose of 30 mg 3 times a day. Digoxin level will be ordered. Cardiology consultation 08/05 and was found to have increased weakness associated with dizziness, nausea vomiting and slurring of speech. Patient was unable to smile. Patient also complains of numbness and tingling involving the upper extremities associated with blurring of vision. Patient complains of tingling associated in the right arm with tingling involving her neck. Patient also complains of increased w eakness including the upper and lower extremity on the left Patient has tremors bilaterally upper ext. Symptoms are intermittent and started at 8:30 this morning after patient received her morning medications. Patient was assessed by telling. CT head and CTA were obtained. CT suggests moderate stenosis of the left internal carotid artery in the neck secondary to calcified laque. Carotid Dopplers ordered. MRI ordered stat. EEG ordered. Neurology consult placed. Brief episode of PVC was noted in the night. Currently patient remains in sinus bradycardia. Blood pressure continues to stay elevated. Hydralazine started at 10 mg IV every 6 for systolic more than 160. Norvasc added at 5 mg twice a day along with lisinopril. Diltiazem held for now. Patient's abdomen appeared distended and patient is tender on palpation. Ultrasound abdomen ordered Monitor closely for bradycardia with possible need for pacemaker. Patient does have underlying jerky movements of the upper extremity for which she sees Dr.Shuayto damari zarate recommend muscular relaxant for the patient. 08/06: Patient is seen today sitting in recliner appears to be in no acute distress. She does state that she just walked with physical therapy and she thought she had jerking sensation all over. Carotid ultrasound revealed 70% stenosis in the left internal carotid artery and neurology as added vascular consult. Abdominal ultrasound for right upper quadrant pain and nausea revealed no acute findings evident to account for patient's symptoms. Cardiology has resumed Cardizem CD 120 mg daily. Heart rate has been in the 50s to 80s. Blood pressure 180/79, pulse ox 97% on 2 L. We are adding and a clonidine patch. Blood sugars are running between 165 and 188. Urinalysis clear with trace leukoesterase. MRI of the brain, echocardiogram and EEG are all pending. Therapies are recommending home with home care. 08/07: Patient is afebrile, heart rate 80, blood pressure this morning 108/69, blood pressure at 10 PM was 212/84. Heart rate seems to be running in the 60s to 80s. Pulse ox 100% on 2 L nasal cannula. Echocardiogram reveals EF of 55- 60%, trace mitral regurgitation, trace tricuspid regurgitation. EEG was normal. MRI of the brain is unable to be done due to peripheral stents. Patient has been seen by neurology with plan for repeat CAT scan of the brain. Vascular consult in place for left internal carotid artery stenosis of 70%. Patient to be on eliquis and aspirin 81 mg and Lipitor. Plan is for outpatient carotid surgery intervention next week which will be scheduled through their office. Patient was cleared for discharge from vascular surgery. Repeat CAT scan of the brain done today revealed moderate to severe burden of chronic small vessel ischemic change. No evolving large vascular territory infarct. The patient is complaining of right rib pain. Chest x-ray ordered to evaluate feel that this is costochondritis. Patient states she is not feeling well today and feels weak. Physical therapy has evaluated and states she is safe for home with home care. And to monitor overnight and probable discharge home tomorrow. 08/08: Patient had pauses on the quality assurance monitor and cardiology felt Cardizem for now. The patient is afraid to go home. Her heart rate is running in the 50s and 60s. Blood sugars are running between 149 and 220. Patient has been afebrile, blood pressure 121/61, pulse ox 99% on 2 L nasal cannula. Repeat chest x-ray reveals COPD. Patchy opacities at the right midlung. Early developing pneumonia not excluded. Patient will be started on azithromycin. We'll plan to continue to monitor the hospital, continue physical therapy and plan for discharge tomorrow. 08/09: Patient had bradycardia in the 30s last evening, currently at 50. She was also hypotensive and Catapres patch was removed and lisinopril and amlodipine were held this morning. Dr. Sorto) he plans to monitor, no plan for pacemaker insertion at this time. Digoxin and Cardizem are on hold. No change in discharge plan. 08/10: Heart rate was in the 30s last evening while she was sleeping. Heart rate is now running in the 60s and 70s. While she was ambulating heart rate was in the 60s. Pulse ox is 99% on 2 L, blood pressure 156/74, afebrile. Patient has been evaluated by physical therapy and does not meet criteria for rehabilitation. They're recommending home with homecare. Cardiology has evaluated and resume patient on Norvasc 5 mg daily. No plan for pacemaker. Patient is cleared from cardiology for discharge home. Patient will be discharged home today in stable condition. ASSESSMENT AND PLAN #1 presyncope secondary to bradycardia hypotension resolved. #2 paroxysmal atrial fibrillation currently in sinus bradycardia #3 Intermittent episodes of slurring of speech, with weakness involving left upper and lower extremities rule out CVA MRI stat likely due to left internal carotid artery stenosis. #4 Sinus bradycardia with possible sick sinus syndrome. #5 hypertension #6 hyperlipidemia #7 degenerative disc disease and lumbar radiculopathy #8 coronary artery disease status post stenting #9 right middle lobe lung density 8x4 mm scarlike opacity versus spiculated nodule right midlung. Bone scan has been negative for malignancy. #10. peripheral artery disease status post stenting #11 history of sleep apnea but patient does not wear CPAP at night #12 history of COPD/chronic hypoxic respiratory failure on 2 L #13 history of non-small cell lung cancer status post radiation follows Dr. Patel #14 history of CVA/TIA with left-sided weakness, rule out recrudescence of stroke #15 history of DVT postsurgical resolved #16 fibromyalgia stable #17 history of GERD #18 and her license anxiety disorder and recurrent depression #19 chronic intermittent jerky movement of the upper extremity. #20 Diffuse abdominal pain, resolved. #21carotid stenosis. #22 Possible early pneumonia. DISCHARGE PLAN Home with [facility] Impression and plan of care have been directed as dictated by the signing physician. Consuelo Gould nurse practitioner acting as scribe for signing physician. Patient Condition at Discharge: Stable Plan - Discharge Summary Discharge Rx Participant: Yes New Discharge Prescriptions: No Action Pantoprazole Sodium [Protonix] 40 mg PO QAM Apixaban [Eliquis] 2.5 mg PO BID tablet Fluticasone/Umeclidin/Vilanter [Trelegy Ellipta 100-62.5-25] 1 puff INHALATION RT-DAILY Nitroglycerin Sl Tabs [Nitrostat] 0.4 mg SUBLINGUAL Q5M PRN #20 tab PRN Reason: Chest Pain L.acidoph,Paracasei, B.lactis [Probiotic] 1 cap PO DAILY metFORMIN HCL [Glucophage] 500 mg PO DAILY PARoxetine [Paxil] 20 mg PO DAILY ALPRAZolam [Xanax] 0.25 mg PO Q8H PRN PRN Reason: Anxiety Gabapentin 300 mg PO BID@0800,1200 Gabapentin 600 mg PO HS Enalapril [Vasotec] 10 mg PO BID Atorvastatin [Lipitor] 80 mg PO HS Digoxin [Digitek] 125 mcg PO DAILY Cholecalciferol [Vitamin D3 (25 Mcg = 1000 Iu)] 1,000 unit PO W/SUPPER amLODIPine [Norvasc] 5 mg PO BID #60 tab Lidocaine 5% Patch [Lidoderm 5% Patch] 1 patch TOPICAL DAILY PRN PRN Reason: Pain Albuterol Sulfate [Proventil Hfa] 2 puff INHALATION RT-Q6H PRN PRN Reason: Shortness Of Breath tiZANidine HCL 2 mg PO BID busPIRone HCl [Buspar] 5 mg PO TID Diltiazem HCl 120 mg PO BID Cyanocobalamin (Vitamin B-12) [Vitamin B-12] 1,000 mcg PO DAILY Docusate [Colace] 100 mg PO DAILY PRN PRN Reason: Constipation Discharge Medication List Pantoprazole Sodium [Protonix] 40 mg PO QAM 09/23/16 [History] Apixaban [Eliquis] 2.5 mg PO BID tablet 10/02/16 [Rx] Fluticasone/Umeclidin/Vilanter [Trelegy Ellipta 100-62.5-25] 1 puff INHALATION RT-DAILY 04/19/20 [History] Nitroglycerin Sl Tabs [Nitrostat] 0.4 mg SUBLINGUAL Q5M PRN #20 tab 04/21/20 [Rx] ALPRAZolam [Xanax] 0.25 mg PO Q8H PRN 07/12/20 [History] Atorvastatin [Lipitor] 80 mg PO HS 07/12/20 [History] Cholecalciferol [Vitamin D3 (25 Mcg = 1000 Iu)] 1,000 unit PO W/SUPPER 07/12/20 [History] Digoxin [Digitek] 125 mcg PO DAILY 07/12/20 [History] Enalapril [Vasotec] 10 mg PO BID 07/12/20 [History] Gabapentin 300 mg PO BID@0800,1200 07/12/20 [History] Gabapentin 600 mg PO HS 07/12/20 [History] L.acidoph,Paracasei, B.lactis [Probiotic] 1 cap PO DAILY 07/12/20 [History] PARoxetine [Paxil] 20 mg PO DAILY 07/12/20 [History] metFORMIN HCL [Glucophage] 500 mg PO DAILY 07/12/20 [History] amLODIPine [Norvasc] 5 mg PO BID #60 tab 07/13/20 [Rx] Albuterol Sulfate [Proventil Hfa] 2 puff INHALATION RT-Q6H PRN 08/04/20 [History] Cyanocobalamin (Vitamin B-12) [Vitamin B-12] 1,000 mcg PO DAILY 08/04/20 [History] Diltiazem HCl 120 mg PO BID 08/04/20 [History] Docusate [Colace] 100 mg PO DAILY PRN 08/04/20 [History] Lidocaine 5% Patch [Lidoderm 5% Patch] 1 patch TOPICAL DAILY PRN 08/04/20 [History] busPIRone HCl [Buspar] 5 mg PO TID 08/04/20 [History] tiZANidine HCL 2 mg PO BID 08/04/20 [History] Follow up Appointment(s)/Referral(s): [facility], [NON-STAFF] - Silviano Garcia DO [STAFF PHYSICIAN] - 1 Week Kaylie Ivey MD [Primary Care Provider] - 1 Week Discharge Disposition: HOME WITH HOME HEALTH SERVICES
--- NOTE | 2020-08-10 15:01 | P.PN ---
Subjective Progress Note Date: 08/10/20 HISTORY OF PRESENT ILLNESS: 08/05/2020-Glenroy Gould This is a pleasant 80-year-old female past medical history significant for coronary artery disease status post PCI, paroxysmal atrial fibrillation on long-term anticoagulation, hypertension, dyslipidemia, valvular heart disease and COPD. She follows in the office with Dr. Lance. Apparently back in February she had a change off Cardizem and started Norvasc. She was subsequently seen in the hospital on July 13 and recommended to increase Norvasc to 5 mg twice daily. She was then seen in the office with Dr. colbert in her blood pressure was extremely high and the Norvasc was discontinued and she was started on Cardizem at 120 mg twice daily which she took for one week. Now she complains that her heart rate was low in the 30s and blood pressure was low at home. Patient presented to [facility] emergency center or heart rate was found to be in the 40s. EKG was sinus bradycardia at 47. Troponins negative on 2 draws. Digoxin level I.5, potassium 4.3. Patient was placed on the observati on unit and while up there this morning at around 8:30 she had an episode where she became very weak and shaky and had tremors in her hands. This most bilaterally. She felt like she was going to pass out. Prior to this episode she had a run of V. tach 12 beats. During this episode her blood pressure was high at 201/66 and heart rate was 66. 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 Cardizem was decreased to 30 mg at the time of admission and she did receive a dose this morning as well as lisinopril. A neurology consult was done virtually to rule out stroke. Patient was sequentially transferred to the cardiac stepdown unit and is asymptomatic at the time of evaluation. Patient denies having any chest pain, shortness of breath, palpitations, lightheadedness or dizziness. No syncopal episode. Daughter is at bedside. Eechocardiogram obtained in the office March 2020 revealed preserved LV systolic function with ejection fraction 55%, mild to moderate mitral regurgitation, moderate tricuspid regurgitation and mild pulmonary hypertension with RVSP of 35 mmHg 08/06/2020 Patient examined this morning at the bedside. Patient denies chest pain or pressure. She denies shortness of breath. Telemetry reveals sinus mechanism with a heart rate in the 60s. Blood pressure this morning is elevated at 130/79. Previous reading at 4 AM was 133/63. 08/07/2020 Patient examined this morning at the bedside. Patient denies chest pain or pressure. Denies shortness of breath. She reports feeling very weak today. She is scheduled for a repeat head CT. She is maintaining sinus rhythm on telemetry with heart rate in the 70s. 08/08/2020 Patient examined this morning at the bedside. Patient states her weakness has improved since yesterday. She denies chest pain or pressure. Denies shortness of breath. Patient is heart rate was in the 30s and 40s overnight. She had pauses on telemetry around 2 seconds. Patient remains in sinus mechanism this morning but is bradycardic with heart rate in the 50s. Patient already received her morning dose of Cardizem CD. 08/09/2020 Patient examined this morning is at bedside. Patient states she feels very weak today. She denies chest pain or pressure. Denies shortness of breath. Telemetry monitoring reveals sinus bradycardia with a heart rate in the 50s. Patient's Cardizem CD has been discontinued. Her last dose was yesterday morning. 08/10/2020 Patient examined this morning at the bedside. Patient continues to feel weak today. Patient was bradycardic overnight with occasional 2 second pauses. This morning the patient's heart rate is in the 50s to 60s. She has been ambulating in the hallway. Her heart rate is maintaining in the 60s. PHYSICAL EXAM: VITAL SIGNS: Reviewed. GENERAL: Well-developed in no acute distress. NECK: Supple. No JVD or thyromegaly LUNGS: Respirations even and unlabored. Lungs essentially clear to auscultation bilaterally. HEART: Regular rate and rhythm. S1 and S2 heard. Systolic murmur noted. EXTREMITIES: No clubbing or cyanosis. Peripheral pulses intact. No lower extremity edema ASSESSMENT: Episode of weakness, tremors, r/o CVA/TIA, CT head negative Moderate left ICA stenosis Labile blood pressure and multiple medication adjustments over the past several months Paroxysmal atrial fibrillation, on long-term anticoagulation with Eliquis, currently maintaining sinus rhythm Hypertension Hyperlipidemia COPD Bradycardia PLAN: Continue Eliquis for anticoagulation Resume Norvasc 5 mg daily for optimal blood pressure control Continue to hold digoxin and Cardizem Continue to monitor on telemetry. No plans for pacemaker insertion at this time Patient may be discharged home today from a cardiac standpoint Nurse practitioner note has been reviewed by physician. Signing provider agrees with the documented findings, assessment, and plan of care. Objective - Vital Signs Vital signs: Vital Signs Temp 97 F L 08/10/20 08:00 Pulse 73 08/10/20 14:11 Resp 18 08/10/20 13:27 BP 156/74 08/10/20 13:27 Pulse Ox 90 L 08/10/20 14:11 Intake & Output 08/09/20 08/10/20 08/10/20 18:59 06:59 18:59 Intake Total 480 1890 780 Output Total 500 2050 300 Balance -20 -160 480 Weight 56.5 kg 56.6 kg Intake: Intake, IV Titration 1000 Amount Sodium Chloride 0.9% 1, 1000 000 ml @ 100 mls/hr IV . Q10H LETICIA Rx#:[id number] Oral 480 890 780 Output: Urine 500 2050 300 Stool 0 Other: Voiding Method Toilet Toilet Toilet # Voids 2 - Labs CBC & Chem 7: 08/05/20 09:27 08/05/20 09:27 Labs: Abnormal Lab Results - Last 24 Hours (Table) 08/09/20 08/09/20 08/10/20 Range/Units 16:39 20:03 06:11 POC Glucose (mg/dL) 134 H 183 H 137 H (75-99) mg/dL 08/10/20 Range/Units 11:32 POC Glucose (mg/dL) 253 H (75-99) mg/dL
[2020-08-10 16:44] LABS: Glucose,Whole Blood 78 mg/dL (75-99)
[2020-08-10 17:16] VITALS: RESP 16
[2020-08-10 17:27] VITALS: BP 156/75; PULSE 64; TEMP 98.2
== END 2020-08-10 17:46 | disposition home health service (06) | DRG 67 ==
LOC: EC 11:16 → 6NMEDSUR 13:27 → OBSVTOIN 08-05 09:46 → 3SCARD 08-05 12:00
PROVIDERS: ADMIT Internal Medicine; ATTEND Internal Medicine
DX: I65.23 Occlusion and stenosis of bilateral carotid arteries (principal); J18.9 Pneumonia, unspecified organism; J96.11 Chronic respiratory failure with hypoxia; I47.2 Ventricular tachycardia; F33.9 Major depressive disorder, recurrent, unspecified; I27.22 Pulmonary hypertension due to left heart disease; I49.5 Sick sinus syndrome; I50.9 Heart failure, unspecified; I11.0 Hypertensive heart disease with heart failure; E11.51 Type 2 diabetes mellitus with diabetic peripheral angiopathy without gangrene; I95.9 Hypotension, unspecified; I48.0 Paroxysmal atrial fibrillation; J44.9 Chronic obstructive pulmonary disease, unspecified; Z20.822 Contact with and (suspected) exposure to COVID-19; M79.7 Fibromyalgia; M19.90 Unspecified osteoarthritis, unspecified site; K21.9 Gastro-esophageal reflux disease without esophagitis; E78.5 Hyperlipidemia, unspecified; G47.30 Sleep apnea, unspecified; H35.30 Unspecified macular degeneration; S22.41XG Multiple fractures of ribs, right side, subsequent encounter for fracture with delayed healing; X58.XXXD Exposure to other specified factors, subsequent encounter; M51.16 Intervertebral disc disorders with radiculopathy, lumbar region; I25.10 Atherosclerotic heart disease of native coronary artery without angina pectoris; F41.9 Anxiety disorder, unspecified; I08.1 Rheumatic disorders of both mitral and tricuspid valves; R29.810 Facial weakness; I49.3 Ventricular premature depolarization; B02.9 Zoster without complications; K44.9 Diaphragmatic hernia without obstruction or gangrene; R11.2 Nausea with vomiting, unspecified; R25.1 Tremor, unspecified; R47.81 Slurred speech; R10.11 Right upper quadrant pain; R91.1 Solitary pulmonary nodule; M94.0 Chondrocostal junction syndrome [Tietze]; Z71.3 Dietary counseling and surveillance; Z79.01 Long term (current) use of anticoagulants; Z79.84 Long term (current) use of oral hypoglycemic drugs; Z79.899 Other long term (current) drug therapy; Z86.73 Personal history of transient ischemic attack (TIA), and cerebral infarction without residual deficits; Z86.718 Personal history of other venous thrombosis and embolism; Z87.01 Personal history of pneumonia (recurrent); Z85.118 Personal history of other malignant neoplasm of bronchus and lung; Z92.3 Personal history of irradiation; Z99.81 Dependence on supplemental oxygen; Z87.81 Personal history of (healed) traumatic fracture; Z86.14 Personal history of Methicillin resistant Staphylococcus aureus infection; Z90.49 Acquired absence of other specified parts of digestive tract; Z95.5 Presence of coronary angioplasty implant and graft; Z98.890 Other specified postprocedural states; Z87.891 Personal history of nicotine dependence; Z95.820 Peripheral vascular angioplasty status with implants and grafts; Z82.49 Family history of ischemic heart disease and other diseases of the circulatory system; Z82.5 Family history of asthma and other chronic lower respiratory diseases; Z80.9 Family history of malignant neoplasm, unspecified
CPT/HCPCS: 36415; 70450; 70496; 70498; 71046; 76700; 80053; 80061; 80162; 81001; 82550; 82553; 83036; 83605; 83735; 83880; 84443; 84484; 85025; 85610; 85730; 87635; 93005; 93306; 93880; 94640; 95816; 99285

== ENCOUNTER 2020-08-28 11:55 | Emergency (ER) | payer MEDICARE, OTHER ==
[2020-08-28 13:01] VITALS: BP 145/74; PULSE 78; RESP 20; TEMP 98.4
== END 2020-08-28 13:37 | disposition left against medical advice (07) ==
LOC: EC 11:55
DX: R00.2 Palpitations (principal); Z53.21 Procedure and treatment not carried out due to patient leaving prior to being seen by health care provider
CPT/HCPCS: 93005; 99499

== ENCOUNTER 2020-09-02 01:14 | Observation (INO) | payer MEDICARE, OTHER ==
[2020-09-02] MEDS ORDERED: SODIUM CHLORIDE 0.9% 1,000 ML IV STA (02:02)
--- NOTE | 2020-09-02 02:07 | ED ---
Arrhythmia/Palpitations HPI - General Chief Complaint: Arrhythmia/Palpitations Stated Complaint: A-Fib, Low BP Time Seen by Provider: 09/02/20 01:40 Source: patient, family Mode of arrival: wheelchair Limitations: no limitations - History of Present Illness Initial Comments: This patient is an 80-year-old woman who presents to be evaluated for what she suspects is a flareup of her atrial fibrillation. Patient states that today in the afternoon she noticed she was developing palpitations. She was feeling fatigued. Previously when she has felt like this was due to the A. fib. The patient also was having some discomfort earlier. By arrival here, she states it feels like things have slowed a little bit and the discomfort has nearly entirely resolved now. Tonight she is not having any anginal symptoms dyspnea, diaphoresis, nausea or vomiting. MD Complaint: palpitations Onset/Timin -: hour(s) Context: occurred during rest Arrhythmia History: atrial fibrillation Associated Symptoms: chest pain - Related Data Home Medications Medication Instructions Recorded Confirmed Pantoprazole Sodium [Protonix] 40 mg PO QA 09/23/16 08/04/20 Fluticasone/Umeclidin/Vilanter 1 puff INHALATION RT-DAILY 04/19/20 08/04/20 [Trelegy Ellipta 100-62.5-25] ALPRAZolam [Xanax] 0.25 mg PO Q8H PRN 07/12/20 08/04/20 Atorvastatin [Lipitor] 80 mg PO HS 07/12/20 08/04/20 Cholecalciferol [Vitamin D3 (25 1,000 unit PO W/SUPPER 07/12/20 08/04/20 Mcg = 1000 Iu)] Gabapentin 300 mg PO BID@0800,1200 07/12/20 08/06/20 Gabapentin 600 mg PO HS 07/12/20 08/04/20 L.acidoph,Paracasei, B.lactis 1 cap PO DAILY 07/12/20 08/04/20 [Probiotic] PARoxetine [Paxil] 20 mg PO DAILY 07/12/20 08/04/20 metFORMIN HCL [Glucophage] 500 mg PO DAILY 07/12/20 08/04/20 Albuterol Sulfate [Proventil Hfa] 2 puff INHALATION RT-Q6H PRN 08/04/20 08/04/20 Cyanocobalamin (Vitamin B-12) 1,000 mcg PO DAILY 08/04/20 08/04/20 [Vitamin B-12] Docusate [Colace] 100 mg PO DAILY PRN 08/04/20 08/04/20 Lidocaine 5% Patch [Lidoderm 5% 1 patch TOPICAL DAILY PRN 08/04/20 08/04/20 Patch] busPIRone HCl [Buspar] 5 mg PO TID 08/04/20 08/04/20 Previous Rx's Medication Instructions Recorded Apixaban [Eliquis] 2.5 mg PO BID tablet 10/02/16 Nitroglycerin Sl Tabs [Nitrostat] 0.4 mg SUBLINGUAL Q5M PRN #20 tab 04/21/20 amLODIPine [Norvasc] 5 mg PO BID #60 tab 07/13/20 Azithromycin [Zithromax] 500 mg PO DAILY #3 tab 08/10/20 Clopidogrel [Plavix] 75 mg PO DAILY #30 tab 08/10/20 Allergies Allergy/AdvReac Type Severity Reaction Status Date / Time No Known Allergies Allergy Verified 09/02/20 01:38 Review of Systems ROS Statement: Those systems with pertinent positive or pertinent negative responses have been documented in the HPI. ROS Other: All systems not noted in ROS Statement are negative. Constitutional: Denies: fever, chills Respiratory: Denies: cough, dyspnea Cardiovascular: Reports: palpitations. Denies: chest pain, orthopnea, edema, syncope Gastrointestinal: Denies: abdominal pain, nausea, vomiting, diarrhea Genitourinary: Denies: dysuria, hematuria Musculoskeletal: Denies: back pain Skin: Denies: rash Neurological: Denies: headache, weakness, numbness Past Medical History Past Medical History: Atrial Fibrillation, Cancer, Heart Failure, COPD, CVA/TIA, Diabetes Mellitus, Deep Vein Thrombosis (DVT), Fibromyalgia, GERD/Reflux, Hyperlipidemia, Hypertension, Osteoarthritis (OA), Pneumonia, Sleep Apnea/CPAP/BIPAP, Vascular Disorder Additional Past Medical History / Comment(s): back pain , lung cancer-radiation opnly, HOME 02 2 LITERS N/C, BLOOD CLOT AFTER SX, CVA LT SIDE AFFECTED SINCE RESOLVED, HIATAL HERNIA. SHINGLES 30 YEARS AGO, DOES'NT USE CPAP MACHINE.in past for short period of time took oral meds for dm-then taken off meds-pt stated not considered diabetic now but occ will check bs., macular degeneration.past broken rt leg and lt wrist. Raynauds. Pt currently has 3 fractured ribs on the right that she has "had for years and will not heal". History of Any Multi-Drug Resistant Organisms: MRSA Date of last positivie culture/infection: 09/25/16 MDRO Source:: BRONCH WASH Past Surgical History: Cholecystectomy, Heart Catheterization With Stent, Orthopedic Surgery Additional Past Surgical History / Comment(s): rt leg repaired after break-has pins, lt wrist-plate and screws. lung bx, stents tung groins. Past Anesthesia/Blood Transfusion Reactions: Family History of Problems w/ Anesthesia Additional Past Anesthesia/Blood Transfusion Reaction / Comment(s): daughter has diff waking after aa Date of Last Stent Placement:: unk Past Psychological History: Depression Smoking Status: Former smoker Past Alcohol Use History: Rare Past Drug Use History: None Reported - Past Family History Father Family Medical History: Congestive Heart Failure (CHF), COPD Additional Family Medical History / Comment(s): emphysema Mother Family Medical History: Cancer General Exam Limitations: no limitations General appearance: alert, in no apparent distress Head exam: Present: atraumatic, normocephalic Eye exam: Present: normal appearance. Absent: scleral icterus, conjunctival injection ENT exam: Present: normal oropharynx Respiratory exam: Present: normal lung sounds bilaterally. Absent: respiratory distress, wheezes, rales, rhonchi, stridor Cardiovascular Exam: Present: regular rate, irregular rhythm, normal heart sounds. Absent: systolic murmur, diastolic murmur, rubs, gallop GI/Abdominal exam: Present: soft. Absent: distended, tenderness, guarding, rebound, rigid, mass Extremities exam: Present: normal inspection, normal capillary refill. Absent: pedal edema, calf tenderness Back exam: Present: normal inspection. Absent: CVA tenderness (R), CVA tenderness (L) Neurological exam: Present: alert Skin exam: Present: warm, dry, intact, normal color. Absent: rash Course Vital Signs 09/02/20 09/02/20 09/02/20 01:34 02:16 02:18 Temperature 97.9 F Pulse Rate 69 72 Pulse Rate [ 71 [place]oker [place]er ] Respiratory 20 18 Rate Blood Pressure 124/49 136/59 O2 Sat by Pulse 98 99 Oximetry 09/02/20 09/02/20 09/02/20 02:29 03:18 04:00 Temperature Pulse Rate 70 72 72 Pulse Rate [ [place]oker [place]er ] Respiratory 18 19 19 Rate Blood Pressure 131/71 125/66 118/96 O2 Sat by Pulse 98 100 99 Oximetry 09/02/20 05:35 Temperature Pulse Rate 63 Pulse Rate [ [place]oker [place]er ] Respiratory 18 Rate Blood Pressure 96/46 O2 Sat by Pulse 98 Oximetry Medical Decision Making - Lab Data Result diagrams: 09/02/20 02:02 09/02/20 02:02 Lab Results 09/02/20 09/02/20 09/02/20 Range/Units 02:02 02:02 02:02 WBC 8.4 (3.8-10.6) k/uL RBC 3.74 L (3.80-5.40) m/uL Hgb 11.4 (11.4-16.0) gm/dL Hct 32.7 L (34.0-46.0) % MCV 87.5 (80.0-100.0) fL MCH 30.3 (25.0-35.0) pg MCHC 34.7 (31.0-37.0) g/dL RDW 12.9 (11.5-15.5) % Plt Count 168 (150-450) k/uL MPV 7.8 Neutrophils % 53 % Lymphocytes % 34 % Monocytes % 8 % Eosinophils % 3 % Basophils % 1 % Neutrophils # 4.5 (1.3-7.7) k/uL Lymphocytes # 2.9 (1.0-4.8) k/uL Monocytes # 0.7 (0-1.0) k/uL Eosinophils # 0.2 (0-0.7) k/uL Basophils # 0.1 (0-0.2) k/uL PT 10.6 (9.0-12.0) sec INR 1.0 (<1.2) APTT 18.2 L (22.0-30.0) sec Sodium 136 L (137-145) mmol/L Potassium 3.7 (3.5-5.1) mmol/L Chloride 102 (98-107) mmol/L Carbon Dioxide 26 (22-30) mmol/L Anion Gap 8 mmol/L BUN 23 H (7-17) mg/dL Creatinine 0.69 (0.52-1.04) mg/dL Est GFR (CKD-EPI)AfAm >90 (>60 ml/min/1.73 sqM) Est GFR (CKD-EPI)NonAf 82 (>60 ml/min/1.73 sqM) Glucose 154 H (74-99) mg/dL Calcium 9.5 (8.4-10.2) mg/dL Magnesium 1.6 (1.6-2.3) mg/dL Total Bilirubin 0.4 (0.2-1.3) mg/dL AST 26 (14-36) U/L ALT 17 (4-34) U/L Alkaline Phosphatase 73 (38-126) U/L Troponin I (0.000-0.034) ng/mL Total Protein 6.2 L (6.3-8.2) g/dL Albumin 3.7 (3.5-5.0) g/dL 09/02/20 Range/Units 02:02 WBC (3.8-10.6) k/uL RBC (3.80-5.40) m/uL Hgb (11.4-16.0) gm/dL Hct (34.0-46.0) % MCV (80.0-100.0) fL MCH (25.0-35.0) pg MCHC (31.0-37.0) g/dL RDW (11.5-15.5) % Plt Count (150-450) k/uL MPV Neutrophils % % Lymphocytes % % Monocytes % % Eosinophils % % Basophils % % Neutrophils # (1.3-7.7) k/uL Lymphocytes # (1.0-4.8) k/uL Monocytes # (0-1.0) k/uL Eosinophils # (0-0.7) k/uL Basophils # (0-0.2) k/uL PT (9.0-12.0) sec INR (<1.2) APTT (22.0-30.0) sec Sodium (137-145) mmol/L Potassium (3.5-5.1) mmol/L Chloride (98-107) mmol/L Carbon Dioxide (22-30) mmol/L Anion Gap mmol/L BUN (7-17) mg/dL Creatinine (0.52-1.04) mg/dL Est GFR (CKD-EPI)AfAm (>60 ml/min/1.73 sqM) Est GFR (CKD-EPI)NonAf (>60 ml/min/1.73 sqM) Glucose (74-99) mg/dL Calcium (8.4-10.2) mg/dL Magnesium (1.6-2.3) mg/dL Total Bilirubin (0.2-1.3) mg/dL AST (14-36) U/L ALT (4-34) U/L Alkaline Phosphatase (38-126) U/L Troponin I <0.012 (0.000-0.034) ng/mL Total Protein (6.3-8.2) g/dL Albumin (3.5-5.0) g/dL Disposition Clinical Impression: Chest pain Disposition: ADMITTED IP TO THIS HOSP Condition: Good Referrals: Kaylie Ivey MD [Primary Care Provider] - 1-2 days
--- NOTE | 2020-09-02 02:24 | XR ---
EXAM: XR Chest, 1 View CLINICAL HISTORY: Dysrhythmia. TECHNIQUE: Frontal view of the chest. COMPARISON: 08/07/2020. FINDINGS: Lungs: The densities noted in the right midlung zone similar to that noted on the previous study of 08/07/2020. Pleural space: Unremarkable. No pneumothorax. Heart: Cardiomediastinal silhouette unremarkable per Mediastinum: See above. Bones/joints: Osteopenia. Vasculature: Atherosclerotic disease of the aortic knob. IMPRESSION: 1. Peripheral vague density in the right midlung zone persists and remains unresolved since the study of 08/07/2020. 2. CT imaging of the chest without contrast is therefore highly advised to further assessment. 3. Osteopenia.
[2020-09-02 02:33] LABS: Basophils # (A) 0.1 k/uL (0-0.2); Basophils % (A) 1 %; Eosinophils # (A) 0.2 k/uL (0-0.7); Eosinophils % (A) 3 %; HCT 32.7 % (34.0-46.0); HGB 11.4 gm/dL (11.4-16.0); Lymphocytes # (A) 2.9 k/uL (1.0-4.8); Lymphocytes % (A) 34 %; MCH 30.3 pg (25.0-35.0); MCHC 34.7 g/dL (31.0-37.0); MCV 87.5 fL (80.0-100.0); Mean Platelet Volume 7.8; Monocytes # (A) 0.7 k/uL (0-1.0); Monocytes % (A) 8 %; Neutrophils # (A) 4.5 k/uL (1.3-7.7); Neutrophils % (A) 53 %; Platelet Count 168 k/uL (150-450); RBC 3.74 m/uL (3.80-5.40); RDW 12.9 % (11.5-15.5); WBC 8.4 k/uL (3.8-10.6)
[2020-09-02 02:46] LABS: Prothrombin Time 10.6 sec (9.0-12.0)
[2020-09-02 02:50] LABS: ALT 17 U/L (4-34); AST 26 U/L (14-36); African American GFR (CKD) >90 (>60 ml/min/1.73 sqM); Albumin 3.7 g/dL (3.5-5.0); Alkaline Phosphatase 73 U/L (38-126); Anion Gap 8 mmol/L; Blood Urea Nitrogen 23 mg/dL (7-17); Calcium 9.5 mg/dL (8.4-10.2); Carbon Dioxide 26 mmol/L (22-30); Chloride 102 mmol/L (98-107); Glucose 154 mg/dL (74-99); Magnesium 1.6 mg/dL (1.6-2.3); Non-African American GFR(CKD) 82 (>60 ml/min/1.73 sqM); Potassium 3.7 mmol/L (3.5-5.1); Sodium 136 mmol/L (137-145); Total Bilirubin 0.4 mg/dL (0.2-1.3); Total Protein 6.2 g/dL (6.3-8.2)
[2020-09-02 02:52] LABS: Partial Thromboplastin Time 18.2 sec (22.0-30.0)
[2020-09-02] MEDS ORDERED: NITROGLYCERIN SL TABS 0.4 MG TAB SUBLINGUAL PRN ×2 (06:18→10:55)
[2020-09-02 09:49] LABS: Appearance,Urine Clear (Clear); Bacteria,Urine Rare /hpf; Bilirubin,Urine Negative (Negative); Blood,Urine Negative (Negative); Color,Urine Light Yellow; Glucose,Urine (UA) Negative (Negative); Ketones,Urine Negative (Negative); Leukocyte Esterase,Urine Trace (Negative); Nitrite,Urine Negative (Negative); PH, Urine 5.5 (5.0-8.0); Protein,Urine Negative (Negative); RBC,Urine <1 /hpf (0-5); Specific Gravity,Urine 1.002 (1.001-1.035); Urobilinogen,Urine <2.0 mg/dL (<2.0); WBC,Urine 4 /hpf (0-5)
[2020-09-02 10:18] LABS: Magnesium 1.7 mg/dL (1.6-2.3)
[2020-09-02] MEDS ORDERED: ALBUTEROL NEBULIZED 2.5 MG/3 ML INHALATION PRN (10:55)
[2020-09-02] MEDS ORDERED: DOCUSATE 100 MG CAP PO PRN (10:55)
[2020-09-02] MEDS ORDERED: LIDOCAINE 5% PATCH TOPICAL PRN (10:55)
[2020-09-02] MEDS ORDERED: ALPRAZolam 0.25 MG TAB PO PRN (10:55)
--- NOTE | 2020-09-02 11:07 | P.HPIM ---
History of Present Illness H&P Date: 09/02/20 HISTORY OF PRESENT ILLNESS This is an 80-year-old female patient of Dr. Ivey with past medical history of chronic hypoxic respiratory failure on 2 L home oxygen, COPD, coronary artery disease with multivessel stenting, peripheral artery disease with previous stenting, history of non-small cell lung cancer status post radiation and possible recurrence with new lesion in the right middle lobe 8 x 4 mm in size and negative bone scan and follows with Dr. Patel, chronic fibromyalgia, remote history of tobacco use and dependence, degenerative joint disease, Raynaud's syndrome, chronic fracture of 3 ribs on the right that is not healed and years, hypertension, hyperlipidemia, paroxysmal atrial fibrillation with last HUE and cardioversion in [address] Lance with recent hospitalization in June for A. fib with RVR. Patient's last hospitalization was in July at which time she was treated for pre-syncope secondary to bradycardia and hypotension, intermittent episodes of slurring speech and weakness on the left upper and lower extremity secondary to possible left internal carotid artery stenosis. Patient was discharged home with [facility] on August 10. Patient now presents with palpitations and fatigue and felt like it was due to atrial fibrillation. Patient feels that she is going in and out of atrial fibrillation which is been going on since she left the hospital on last admission. Patient complains of lightheadedness when she stands up. She denies any blood in her stools. Patient does complain of upper sternal chest pain/discomfort. No radiation of the pain. Patient states that she is so weak that she cannot walk. No falls at home. She uses a walker as needed. She is complaining of chronic back pain due to spinal stenosis. Patient is complaining of change in the smell of her urine. Patient presented to [facility] emergency center for evaluation. She was afebrile, heart rate in the 60s and 70s, blood pressure 124/49 and pulse ox 98% on room air. WBC 8.4, hemoglobin 11.4, platelet count 168. Sodium 136, potassium 3.7, chloride 102, CO2 26, BUN 23 and creatinine 0.69. Blood sugar 154. Liver function tests were normal. Troponin negative x2. EKG was a sinus rhythm. Chest x-ray reveals peripheral vague density in the right midlung persists. CT of the chest recommended. Osteopenia. Patient made it to the hospital and cardiology consult requested. REVIEW OF SYSTEMS Constitutional: No fever, no chills, no night sweats. No weight change. Reports weakness, reports fatigue. No daytime sleepiness. EENT: No headache. No blurred vision or double vision, no loss of vision. No loss of Hearing, no ringing in the ears, no dizziness. No nasal drainage or congestion. No epistaxis. No sore throat. Lungs: No shortness of breath, cough, no sputum production. No wheezing. Cardiovascular: No chest pain, no lower extremity edema. Reports palpitations. No paroxysmal nocturnal dyspnea. No orthopnea. No lightheadedness or dizziness. No syncopal episodes. Abdominal: No abdominal pain. No nausea, vomiting. No diarrhea. No constipation. No bloody or tarry stools.. No loss of appetite. Genitourinary: No dysuria, increased frequency, urgency. No urinary retention. Musculoskeletal: No myalgias. No muscle weakness, no gait dysfunction, no frequent falls. No back pain. No neck pain. Integumentary: No wounds, no lesions. No rash or pruritus. No unusual bruising. No change in hair or nails. Neurologic: No aphasia. No facial droop. No change in mentation. No head injury. No headache. No paralysis. No paresthesia. Psychiatric: No depression. No anxiety. Endocrine: No abnormal blood sugars. No weight change. SOCIAL HISTORY Patient was a smoker for 62 years and quit in May 2016. Patient has home oxygen at 2 L nasal cannula and nebulizer. She has a walker that she uses as needed. She lives in a townhouse with her daughter lives next door. FAMILY HISTORY Mother is from female cancer. Father is from coronary artery disease. Patient has one sister and she from a CVA with history of previous TIAs. Patient is one brother that has passed from anemia of undetermined. Patient has one daughter with history of hypertension. PHYSICAL EXAMINATION Gen: This is an 80-year-old female patient in the ER, resting on ER stretcher and appears to be in no acute distress. No respiratory HEENT: Head is atraumatic, normocephalic. Pupils equal, round. Sclerae is anicteric. NECK: Supple. No JVD. No lymphadenopathy. No thyromegaly. LUNGS: Clear to auscultation. No wheezes or rhonchi. No intercostal retractions. HEART: Regular rate and rhythm. No murmur. ABDOMEN: Soft. Bowel sounds are present. No masses. No tenderness. EXTREMITIES: No pedal edema. No calf tenderness. NEUROLOGICAL: Patient is awake, alert and oriented x3. Cranial nerves 2 through 12 are grossly intact. ASSESSMENT AND PLAN 1. Palpitations and chest discomfort possibly related to episodes of A. fib RVR. Cardiology consult. 2. Paroxysmal atrial fibrillation. Continue eliquis 2.5 mg twice daily. Patient does not appear to be on any medication for rate control at this time. 3. Right middle lobe lung density with negative bone scan. Patient follows with Dr. Patel as an outpatient. 4. Hypertension. Continue amlodipine 5 mg twice daily with parameters. 5. Hyperlipidemia. Continue atorvastatin 80 mg at bedtime. 6. Degenerative disc disease and lumbar radiculopathy. Continue gabapentin 300 mg twice daily and 600 mg at bedtime. 7. Coronary artery disease with previous stenting. Continue Plavix 75 mg daily, statin, eliquis. 8. Peripheral vascular disease with previous stenting. Continue Plavix 75 mg daily, statin, eliquis. 9. Obstructive sleep apnea unable to wear CPAP. 10. COPD without exacerbation. Continue albuterol inhaler 2 puffs every 6 hours as needed. 11. Chronic hypoxic respiratory failure on home O2 at 2 L nasal cannula. 12. Diabetes mellitus type 2. Continue metformin 500 mg daily and NovoLog scale before meals and at bedtime. 13. History of non-small cell lung cancer status post radiation and follows with Dr. Patel. 14. History of CVA with left-sided weakness, resolved. 15. History of DVT postsurgical resolved. 16. Gastroesophageal reflux disease. Continue Protonix 40 mg daily 17. Generalized anxiety disorder and recurrent depression. Continue Xanax 0.25 mg every 8 hours as needed, BuSpar 5 mg 3 times daily, gabapentin, Paxil 20 mg daily. 18. COVID-19 testing negative. Patient has been hospitalized during a pandemic. Patient admitted to the hospital for a minimum of 2 nights stay. DISCHARGE PLAN Home with [facility] Impression and plan of care have been directed as dictated by the signing physician. Consuelo Gould nurse practitioner acting as scribe for signing physician. Past Medical History Past Medical History: Atrial Fibrillation, Cancer, Heart Failure, COPD, CVA/TIA, Diabetes Mellitus, Deep Vein Thrombosis (DVT), Fibromyalgia, GERD/Reflux, Hyperlipidemia, Hypertension, Osteoarthritis (OA), Pneumonia, Sleep Apnea/CPAP/BIPAP, Vascular Disorder Additional Past Medical History / Comment(s): back pain , lung cancer-radiation opnly, HOME 02 2 LITERS N/C, BLOOD CLOT AFTER SX, CVA LT SIDE AFFECTED SINCE RESOLVED, HIATAL HERNIA. SHINGLES 30 YEARS AGO, DOES'NT USE CPAP MACHINE.in past for short period of time took oral meds for dm-then taken off meds-pt stated not considered diabetic now but occ will check bs., macular degeneration.past broken rt leg and lt wrist. Raynauds. Pt currently has 3 fractured ribs on the right that she has "had for years and will not heal". History of Any Multi-Drug Resistant Organisms: MRSA Date of last positivie culture/infection: 09/25/16 MDRO Source:: BRONCH WASH Past Surgical History: Cholecystectomy, Heart Catheterization With Stent, Orthopedic Surgery Additional Past Surgical History / Comment(s): rt leg repaired after break-has pins, lt wrist-plate and screws. lung bx, stents tung groins. Past Anesthesia/Blood Transfusion Reactions: Family History of Problems w/ Anesthesia Additional Past Anesthesia/Blood Transfusion Reaction / Comment(s): daughter has diff waking after aa Date of Last Stent Placement:: unk Past Psychological History: Depression Smoking Status: Former smoker Past Alcohol Use History: Rare Past Drug Use History: None Reported - Past Family History Father Family Medical History: Congestive Heart Failure (CHF), COPD Additional Family Medical History / Comment(s): emphysema Mother Family Medical History: Cancer Medications and Allergies Home Medications Medication Instructions Recorded Confirmed Type Pantoprazole Sodium [Protonix] 40 mg PO QAM 09/23/16 09/02/20 History Apixaban [Eliquis] 2.5 mg PO BID tablet 10/02/16 09/02/20 Rx Fluticasone/Umeclidin/Vilanter 1 puff INHALATION RT-DAILY 04/19/20 09/02/20 History [Trelegy Ellipta 100-62.5-25] Nitroglycerin Sl Tabs [Nitrostat] 0.4 mg SUBLINGUAL Q5M PRN #20 tab 04/21/20 09/02/20 Rx ALPRAZolam [Xanax] 0.25 mg PO Q8H PRN 07/12/20 09/02/20 History Atorvastatin [Lipitor] 80 mg PO HS 07/12/20 09/02/20 History Cholecalciferol [Vitamin D3 (25 1,000 unit PO W/SUPPER 07/12/20 09/02/20 History Mcg = 1000 Iu)] Gabapentin 300 mg PO BID@0800,1200 07/12/20 09/02/20 History Gabapentin 600 mg PO HS 07/12/20 09/02/20 History L.acidoph,Paracasei, B.lactis 1 cap PO DAILY 07/12/20 09/02/20 History [Probiotic] PARoxetine [Paxil] 20 mg PO DAILY 07/12/20 09/02/20 History metFORMIN HCL [Glucophage] 500 mg PO DAILY 07/12/20 09/02/20 History amLODIPine [Norvasc] 5 mg PO BID #60 tab 07/13/20 09/02/20 Rx Albuterol Sulfate [Proventil Hfa] 2 puff INHALATION RT-Q6H PRN 08/04/20 09/02/20 History Cyanocobalamin (Vitamin B-12) 1,000 mcg PO DAILY 08/04/20 09/02/20 History [Vitamin B-12] Docusate [Colace] 100 mg PO DAILY PRN 08/04/20 09/02/20 History Lidocaine 5% Patch [Lidoderm 5% 1 patch TOPICAL DAILY PRN 08/04/20 09/02/20 History Patch] busPIRone HCl [Buspar] 5 mg PO TID 08/04/20 09/02/20 History Clopidogrel [Plavix] 75 mg PO DAILY #30 tab 08/10/20 09/02/20 Rx Allergies Allergy/AdvReac Type Severity Reaction Status Date / Time No Known Allergies Allergy Verified 09/02/20 09:11 Physical Exam Vitals: Vital Signs Temp Pulse Pulse Resp BP Pulse Ox 09/02/20 07:41 61 18 121/63 99 09/02/20 05:35 63 18 96/46 98 09/02/20 04:00 72 19 118/96 99 09/02/20 03:18 72 19 125/66 100 09/02/20 02:29 70 18 131/71 98 09/02/20 02:18 71 09/02/20 02:16 72 18 136/59 99 09/02/20 01:34 97.9 F 69 20 124/49 98 Intake and Output 09/01/20 09/02/20 09/02/20 22:59 06:59 14:59 Other: Weight 53.07 kg Results CBC & Chem 7: 09/02/20 02:02 09/02/20 02:02 Labs: Abnormal Lab Results - Last 24 Hours (Table) 09/02/20 09/02/20 09/02/20 Range/Units 02:02 02:02 02:02 RBC 3.74 L (3.80-5.40) m/uL Hct 32.7 L (34.0-46.0) % APTT 18.2 L (22.0-30.0) sec Sodium 136 L (137-145) mmol/L BUN 23 H (7-17) mg/dL Glucose 154 H (74-99) mg/dL Total Protein 6.2 L (6.3-8.2) g/dL
[2020-09-02 14:32] LABS: Glucose,Whole Blood 171 mg/dL (75-99)
[2020-09-02] MEDS: CLOPIDOGREL 75 MG TAB PO SCH (14:34)
[2020-09-02] MEDS: INSULIN ASPART (NovoLOG) 100 UNIT/ML VIAL SQ SCH ×3 (14:34→21:24)
[2020-09-02] MEDS: amLODIPine 5 MG TAB PO SCH ×2 (14:35→20:46)
[2020-09-02] MEDS: GABAPENTIN 300 MG CAP PO SCH (14:35)
[2020-09-02] MEDS: APIXABAN 2.5 MG TABLET PO SCH ×2 (14:35→20:46)
[2020-09-02] MEDS: metFORMIN 500 MG TAB PO SCH (14:35)
--- NOTE | 2020-09-02 15:59 | CONS ---
CONSULTATION DATE OF CONSULTATION: 09/02/2020 REASON FOR CONSULTATION: Atrial fibrillation. HISTORY OF PRESENT ILLNESS: This is a very pleasant 80-year-old female patient who I follow in the office as an outpatient with a past medical history significant for chronic hypoxic respiratory failure on oxygen continuously and that is related to chronic obstructive pulmonary disease as well as coronary artery disease and prior stenting in the past as well as known carotid disease as well as history of non-small cell lung cancer status post radiation as well as hypertension and dyslipidemia who presented to the hospital complaining of not feeling well. The patient woke up this morning complaining that her heart rate was racing up. She stated that her heart was very fast. Because of that and because she was experiencing increasing shortness of breath and chest discomfort, she decided to come to the emergency department. In the ER, the patient has been in normal sinus mechanism. She denies any chest pain or chest discomfort at this point, but she does have shortness of breath with exertion, which has been chronic and related to COPD. She denies any dizziness or lightheadedness or any presyncope or syncope. Hemodynamically, the patient seems to be stable. Currently she is on oral anticoagulation for the atrial fibrillation. She had recent hospitalization in July of 2020 after she did have an episode of slurred speech and she was diagnosed with TIA. A carotid duplex study was performed at that point and that showed disease involving the left internal carotid artery. The patient was discharged in stable medical condition. Here in the hospital, she has been maintaining normal sinus mechanism as well as normal blood pressure and heart rate. She is not in any overt congestive heart failure. PAST MEDICAL HISTORY: 1. Coronary artery disease. 2. Peripheral arterial disease. 3. Paroxysmal atrial fibrillation. 4. Chronic obstructive pulmonary disease. 5. Lung cancer. CURRENT MEDICATIONS: 1. Albuterol inhaler. 2. Amlodipine 5 mg p.o. b.i.d. 3. Eliquis 2.5 mg p.o. b.i.d. 4. Atorvastatin 80 mg p.o. q.h.s. 5. Plavix 75 mg p.o. daily. 6. Gabapentin 300 mg p.o. b.i.d. 7. Insulin. 8. Metformin 500 mg p.o. daily. 9. Protonix 40 mg p.o. daily. PHYSICAL EXAMINATION: Vital showed a pressure of 140/70, heart rate 70, and respiratory rate is 18. Saturation is 98% on 2 L. Cardiovascular examination shows regular rate and rhythm. Respiratory examination showed diminished breathing sounds bilaterally. Extremity examination showed no pedal edema. The EKG showed sinus rhythm. WORKUP: WBC is 8.4, and hemoglobin is 11.4. Sodium is 136, potassium 3.7, GFR more than 90. ASSESSMENT: 1. Paroxysmal atrial fibrillation. The patient seems to be in normal sinus mechanism. 2. Coronary artery disease, seems to be stable. 3. Peripheral arterial disease, seems to be stable. 4. History of TIA. 5. Multiple comorbid conditions. PLAN: 1. I recommended continue the current medical regimen including the oral anticoagulation. 2. No need for any further cardiac workup at this point. 3. As a matter of fact, I discussed with the patient the possible discharge in next 12- 24 hours in. VERENICE / TRU: [id number] /
[2020-09-02] MEDS ORDERED: CHOLECALCIFEROL 25 MCG (1000 IU) TABLET PO SCH (17:30)
[2020-09-02] MEDS: busPIRone HCl 5 MG TAB PO SCH ×2 (18:05→20:46)
[2020-09-02 18:14] LABS: Glucose,Whole Blood 100 mg/dL (75-99)
[2020-09-02] MEDS: SYMBICORT 80-4.5 MCG INHALER INHALATION SCH (19:15)
[2020-09-02] MEDS: IPRATROPIUM 0.5 MG/2.5 ML NEBU INHALATION SCH (19:15)
[2020-09-02] MEDS ORDERED: GABAPENTIN 300 MG CAP PO SCH (21:00)
[2020-09-02] MEDS ORDERED: ATORVASTATIN 80 MG TAB PO SCH (21:00)
[2020-09-02 21:05] LABS: Glucose,Whole Blood 167 mg/dL (75-99)
[2020-09-03 05:56] LABS: Cholesterol 152 mg/dL (<200); HDL Cholesterol 59 mg/dL (40-60); LDL Cholesterol,Calculated 46 mg/dL (0-99); Triglycerides 234 mg/dL (<150)
[2020-09-03 06:59] LABS: Glucose,Whole Blood 157 mg/dL (75-99)
[2020-09-03] MEDS ORDERED: NON FORMULARY DRUG (Fluticasone/Umeclidin/Vilanter [Trelegy Ellipta 100-62.5-25] 1 EACH Bl INHALATION SCH (08:00)
[2020-09-03] MEDS: INSULIN ASPART (NovoLOG) 100 UNIT/ML VIAL SQ SCH (08:33)
[2020-09-03] MEDS: APIXABAN 2.5 MG TABLET PO SCH (08:34)
[2020-09-03] MEDS: metFORMIN 500 MG TAB PO SCH (08:35)
[2020-09-03] MEDS: CLOPIDOGREL 75 MG TAB PO SCH (08:35)
[2020-09-03] MEDS: busPIRone HCl 5 MG TAB PO SCH (08:35)
[2020-09-03] MEDS: amLODIPine 5 MG TAB PO SCH (08:35)
[2020-09-03] MEDS: GABAPENTIN 300 MG CAP PO SCH (08:35)
[2020-09-03 08:47] VITALS: BP 134/62; PULSE 61; RESP 18; TEMP 97.8
[2020-09-03] MEDS ORDERED: ASPIRIN 325 MG TAB PO SCH (09:00)
[2020-09-03] MEDS ORDERED: LACTOBACILLUS ACIDOPH & BULGAR 1 EACH PACKET PO SCH (09:00)
[2020-09-03] MEDS ORDERED: CYANOCOBALAMIN 500 MCG TAB PO SCH (09:00)
[2020-09-03] MEDS ORDERED: PARoxetine 20 MG TAB PO SCH (09:00)
[2020-09-03] MEDS ORDERED: PANTOPRAZOLE 40 MG TABLET PO SCH (09:00)
--- NOTE | 2020-09-03 09:03 | P.DS ---
Providers Date of admission: 09/02/20 06:19 Expected date of discharge: 09/03/20 Attending physician: Nohemi Estrada Consults: 09/02/20 06:19 Consult Physician Routine Consulting Provider: Ifeanyi Martin Consult Reason/Comments: Chest pain. Atrial fibrillation Do you want consulting provider notified?: Yes Primary care physician: Kaylie Ivey MD Hospital Course: HISTORY OF PRESENT ILLNESS This is an 80-year-old female patient of Dr. Ivey with past medical history of chronic hypoxic respiratory failure on 2 L home oxygen, COPD, coronary artery disease with multivessel stenting, peripheral artery disease with previous stenting, history of non-small cell lung cancer status post radiation and possible recurrence with new lesion in the right middle lobe 8 x 4 mm in size and negative bone scan and follows with Dr. Patel, chronic fibromyalgia, remote history of tobacco use and dependence, degenerative joint disease, Raynaud's syndrome, chronic fracture of 3 ribs on the right that is not healed and years, hypertension, hyperlipidemia, paroxysmal atrial fibrillation with last HUE and cardioversion in [address] Lance with recent hospitalization in June for A. fib with RVR. Patient's last hospitalization was in July at which time she was treated for pre-syncope secondary to bradycardia and hypotension, intermittent episodes of slurring speech and weakness on the left upper and lower extremity secondary to possible left internal carotid artery stenosis. Patient was discharged home with [facility] on August 10. Patient now presents with palpitations and fatigue and felt like it was due to atrial fibrillation. Patient feels that she is going in and out of atrial fibrillation which is been going on since she left the hospital on last admission. Patient complains of lightheadedness when she stands up. She denies any blood in her stools. Patient does complain of upper sternal chest pain/discomfort. No radiation of the pain. Patient states that she is so weak that she cannot walk. No falls at home. She uses a walker as needed. She is complaining of chronic back pain due to spinal stenosis. Patient is complaining of change in the smell of her urine. Patient presented to [facility] emergency center for evaluation. She was afebrile, heart rate in the 60s and 70s, blood pressure 124/49 and pulse ox 98% on room air. WBC 8.4, hemoglobin 11.4, platelet count 168. Sodium 136, potassium 3.7, chloride 102, CO2 26, BUN 23 and creatinine 0.69. Blood sugar 154. Liver function tests were normal. Troponin negative x2. EKG was a sinus rhythm. Chest x-ray reveals peripheral vague density in the right midlung persists. CT of the chest recommended. Osteopenia. Patient made it to the hospital and cardiology consult requested. 09/03: Patient has been seen by Dr. Lance and recommended continuing current medical regime, no need for further workup and patient cleared for discharge. She has been afebrile, heart rate in the 60s to 80s, blood pressure 109/56, pulse ox 99% on 2 L nasal cannula. Blood sugars have been running between 100 and 167. Triglycerides 234, cholesterol 152, LDL 46, HDL 59. practice consultant is atrial fibrillation with controlled rate. Patient denies any new complaints. No chest pain or shortness of breath. She has been cleared for discharge by ca rdiology. Patient will be discharged home today in stable condition. ASSESSMENT AND PLAN 1. Palpitations and chest discomfort possibly related to episodes of A. fib RVR. 2. Paroxysmal atrial fibrillation. 3. Right middle lobe lung density with negative bone scan. 4. Hypertension. 5. Hyperlipidemia. 6. Degenerative disc disease and lumbar radiculopathy. 7. Coronary artery disease with previous stenting. 8. Peripheral vascular disease with previous stenting. 9. Obstructive sleep apnea unable to wear CPAP. 10. COPD without exacerbation. 11. Chronic hypoxic respiratory failure on home O2 at 2 L nasal cannula. 12. Diabetes mellitus type 2. 13. History of non-small cell lung cancer status post radiation and follows with Dr. Patel. 14. History of CVA with left-sided weakness, resolved. 15. History of DVT postsurgical resolved. 16. Gastroesophageal reflux disease. 17. Generalized anxiety disorder and recurrent depression. 18. COVID-19 testing negative. Patient has been hospitalized during a pandemic. DISCHARGE PLAN Home with [facility] Impression and plan of care have been directed as dictated by the signing physician. Consuelo Gould nurse practitioner acting as scribe for signing physician. Patient Condition at Discharge: Good Plan - Discharge Summary Discharge Rx Participant: Yes New Discharge Prescriptions: No Action Pantoprazole Sodium [Protonix] 40 mg PO QAM Apixaban [Eliquis] 2.5 mg PO BID tablet Fluticasone/Umeclidin/Vilanter [Trelegy Ellipta 100-62.5-25] 1 puff INHALATION RT-DAILY Nitroglycerin Sl Tabs [Nitrostat] 0.4 mg SUBLINGUAL Q5M PRN #20 tab PRN Reason: Chest Pain L.acidoph,Paracasei, B.lactis [Probiotic] 1 cap PO DAILY metFORMIN HCL [Glucophage] 500 mg PO DAILY PARoxetine [Paxil] 20 mg PO DAILY ALPRAZolam [Xanax] 0.25 mg PO Q8H PRN PRN Reason: Anxiety Gabapentin 300 mg PO BID@0800,1200 Gabapentin 600 mg PO HS Atorvastatin [Lipitor] 80 mg PO HS Cholecalciferol [Vitamin D3 (25 Mcg = 1000 Iu)] 1,000 unit PO W/SUPPER amLODIPine [Norvasc] 5 mg PO BID #60 tab Lidocaine 5% Patch [Lidoderm 5% Patch] 1 patch TOPICAL DAILY PRN PRN Reason: Pain Albuterol Sulfate [Proventil Hfa] 2 puff INHALATION RT-Q6H PRN PRN Reason: Shortness Of Breath busPIRone HCl [Buspar] 5 mg PO TID Cyanocobalamin (Vitamin B-12) [Vitamin B-12] 1,000 mcg PO DAILY Docusate [Colace] 100 mg PO DAILY PRN PRN Reason: Constipation Clopidogrel [Plavix] 75 mg PO DAILY #30 tab Discharge Medication List Pantoprazole Sodium [Protonix] 40 mg PO QAM 09/23/16 [History] Apixaban [Eliquis] 2.5 mg PO BID tablet 10/02/16 [Rx] Fluticasone/Umeclidin/Vilanter [Trelegy Ellipta 100-62.5-25] 1 puff INHALATION RT-DAILY 04/19/20 [History] Nitroglycerin Sl Tabs [Nitrostat] 0.4 mg SUBLINGUAL Q5M PRN #20 tab 04/21/20 [Rx] ALPRAZolam [Xanax] 0.25 mg PO Q8H PRN 07/12/20 [History] Atorvastatin [Lipitor] 80 mg PO HS 07/12/20 [History] Cholecalciferol [Vitamin D3 (25 Mcg = 1000 Iu)] 1,000 unit PO W/SUPPER 07/12/20 [History] Gabapentin 300 mg PO BID@0800,1200 07/12/20 [History] Gabapentin 600 mg PO HS 07/12/20 [History] L.acidoph,Paracasei, B.lactis [Probiotic] 1 cap PO DAILY 07/12/20 [History] PARoxetine [Paxil] 20 mg PO DAILY 07/12/20 [History] metFORMIN HCL [Glucophage] 500 mg PO DAILY 07/12/20 [History] amLODIPine [Norvasc] 5 mg PO BID #60 tab 07/13/20 [Rx] Albuterol Sulfate [Proventil Hfa] 2 puff INHALATION RT-Q6H PRN 08/04/20 [History] Cyanocobalamin (Vitamin B-12) [Vitamin B-12] 1,000 mcg PO DAILY 08/04/20 [History] Docusate [Colace] 100 mg PO DAILY PRN 08/04/20 [History] Lidocaine 5% Patch [Lidoderm 5% Patch] 1 patch TOPICAL DAILY PRN 08/04/20 [History] busPIRone HCl [Buspar] 5 mg PO TID 08/04/20 [History] Clopidogrel [Plavix] 75 mg PO DAILY #30 tab 08/10/20 [Rx] Follow up Appointment(s)/Referral(s): Lazaro Lance MD [STAFF PHYSICIAN] - 1 Week Kaylie Ivey MD [Primary Care Provider] - 1 Week (has scheduled appointment on Thu.) Discharge Disposition: HOME SELF-CARE
[2020-09-03] MEDS: SYMBICORT 80-4.5 MCG INHALER INHALATION SCH (09:18)
[2020-09-03] MEDS: IPRATROPIUM 0.5 MG/2.5 ML NEBU INHALATION SCH (09:18)
== END 2020-09-03 11:00 | disposition home or self-care (01) ==
LOC: EC 01:14 → 6NMEDSUR 06:19
PROVIDERS: ADMIT Family Medicine; ATTEND Family Medicine
DX: R07.89 Other chest pain (principal); I48.0 Paroxysmal atrial fibrillation; J96.11 Chronic respiratory failure with hypoxia; I11.0 Hypertensive heart disease with heart failure; I50.9 Heart failure, unspecified; M48.00 Spinal stenosis, site unspecified; Z99.81 Dependence on supplemental oxygen; E78.5 Hyperlipidemia, unspecified; I25.10 Atherosclerotic heart disease of native coronary artery without angina pectoris; I73.00 Raynaud's syndrome without gangrene; J44.9 Chronic obstructive pulmonary disease, unspecified; M19.90 Unspecified osteoarthritis, unspecified site; G47.33 Obstructive sleep apnea (adult) (pediatric); M51.16 Intervertebral disc disorders with radiculopathy, lumbar region; K21.9 Gastro-esophageal reflux disease without esophagitis; F33.9 Major depressive disorder, recurrent, unspecified; F41.1 Generalized anxiety disorder; Z20.822 Contact with and (suspected) exposure to COVID-19; I65.22 Occlusion and stenosis of left carotid artery; E11.9 Type 2 diabetes mellitus without complications; G89.29 Other chronic pain; J98.4 Other disorders of lung; M79.7 Fibromyalgia; M85.80 Other specified disorders of bone density and structure, unspecified site; S22.41XG Multiple fractures of ribs, right side, subsequent encounter for fracture with delayed healing; H35.30 Unspecified macular degeneration; Z79.01 Long term (current) use of anticoagulants; Z79.02 Long term (current) use of antithrombotics/antiplatelets; Z79.84 Long term (current) use of oral hypoglycemic drugs; Z79.51 Long term (current) use of inhaled steroids; Z79.899 Other long term (current) drug therapy; Z86.19 Personal history of other infectious and parasitic diseases; Z85.118 Personal history of other malignant neoplasm of bronchus and lung; Z87.891 Personal history of nicotine dependence; Z92.3 Personal history of irradiation; Z95.5 Presence of coronary angioplasty implant and graft; Z95.820 Peripheral vascular angioplasty status with implants and grafts; Z86.718 Personal history of other venous thrombosis and embolism; Z87.01 Personal history of pneumonia (recurrent); Z86.73 Personal history of transient ischemic attack (TIA), and cerebral infarction without residual deficits; Z86.14 Personal history of Methicillin resistant Staphylococcus aureus infection; Z90.49 Acquired absence of other specified parts of digestive tract; Z82.5 Family history of asthma and other chronic lower respiratory diseases; Z82.49 Family history of ischemic heart disease and other diseases of the circulatory system; Z80.9 Family history of malignant neoplasm, unspecified; Z82.3 Family history of stroke; Z83.2 Family history of diseases of the blood and blood-forming organs and certain disorders involving the immune mechanism; Z84.89 Family history of other specified conditions
CPT/HCPCS: 93005 ×2; 96360; 96361; 99285; 36415; 94640 ×2; 80061; 80053; 84443; 83735; 84484; 85025; 85610; 85730; 81001; 87635; 71045; G0378 ×2

== ENCOUNTER 2020-09-21 23:16 | Inpatient (IN) | payer MEDICARE, OTHER ==
[2020-09-22 00:02] LABS: Basophils # (A) 0.1 k/uL (0-0.2); Basophils % (A) 1 %; Eosinophils # (A) 0.3 k/uL (0-0.7); Eosinophils % (A) 3 %; HCT 38.7 % (34.0-46.0); HGB 12.5 gm/dL (11.4-16.0); Lymphocytes % (A) 33 %; MCH 28.6 pg (25.0-35.0); MCHC 32.2 g/dL (31.0-37.0); MCV 88.6 fL (80.0-100.0); Mean Platelet Volume 7.7; Monocytes # (A) 0.5 k/uL (0-1.0); Monocytes % (A) 6 %; Neutrophils # (A) 5.1 k/uL (1.3-7.7); Neutrophils % (A) 55 %; Platelet Count 274 k/uL (150-450); RBC 4.36 m/uL (3.80-5.40); RDW 13.6 % (11.5-15.5); WBC 9.2 k/uL (3.8-10.6)
--- NOTE | 2020-09-22 00:03 | XR ---
EXAMINATION TYPE: XR chest 2V DATE OF EXAM: 09/21/2020 COMPARISON: 09/02/2020 HISTORY: Dysrhythmia TECHNIQUE: 2 views FINDINGS: There is no heart failure. Heart size is normal. There is probably a 2 cm infiltrate in the right midlung field. This is probably in the right lower lobe posteriorly. The other lung eason are clear. There is no pleural effusion. Bony thorax is intact. There are chest leads. IMPRESSION: Small infiltrate in the right lower lobe appears new compared to recent exam and consiste nt with pneumonia. Normal heart.
[2020-09-22 00:06] LABS: Prothrombin Time 10.5 sec (9.0-12.0)
[2020-09-22 00:24] LABS: ALT 23 U/L (4-34); AST 33 U/L (14-36); African American GFR (CKD) >90 (>60 ml/min/1.73 sqM); Albumin 4.5 g/dL (3.5-5.0); Alkaline Phosphatase 92 U/L (38-126); Anion Gap 8 mmol/L; Blood Urea Nitrogen 28 mg/dL (7-17); Calcium 9.8 mg/dL (8.4-10.2); Carbon Dioxide 28 mmol/L (22-30); Chloride 100 mmol/L (98-107); Glucose 117 mg/dL (74-99); Magnesium 1.7 mg/dL (1.6-2.3); Non-African American GFR(CKD) 82 (>60 ml/min/1.73 sqM); Potassium 4.5 mmol/L (3.5-5.1); Sodium 136 mmol/L (137-145); Total Bilirubin 0.5 mg/dL (0.2-1.3); Total Protein 7.3 g/dL (6.3-8.2)
[2020-09-22] MEDS ORDERED: MORPHINE SULFATE 2 MG/ML SYRINGE IVP STA (00:50)
--- NOTE | 2020-09-22 00:51 | ED ---
General Adult HPI - General Source: patient Mode of arrival: wheelchair <Cristina Reich - Last Filed: 09/22/20 01:15> <Silviano Hernández - Last Filed: 09/26/20 06:11> - General Chief complaint: Arrhythmia/Palpitations Stated complaint: Heart palpitations Time Seen by Provider: 09/21/20 23:22 - History of Present Illness Initial comments: 80 year-old female patient with past medical history significant for COPD maintained on 2L home O2, CAD, Lung cancer, atrial fibrillation, and multiple other medical problems presents to the emergency department for evaluation of dizziness, weakness, and near syncope. States symptoms started earlier today and have been persistent. States she did check her pulse ox and heart rate and noted heart rates in the 20s, she does feel symptomatic at those times. States that her physician did increase her metoprolol from 25mg to 50mg two days ago. She reports nausea with the episodes. Denies any chest pain or shortness of breath. Patient denies any recent rash, fever, chills, abdominal pain, diarrhea, constipation, back pain, numbness, tingling, hematuria, dysuria, urinary urgency, urinary frequency, headache, visual changes, or any other complaints. (Cristina Reich) - Related Data Home Medications Medication Instructions Recorded Confirmed Pantoprazole Sodium [Protonix] 40 mg PO QAM 09/23/16 09/22/20 Fluticasone/Umeclidin/Vilanter 1 puff INHALATION RT-DAILY 04/19/20 09/22/20 [Trelegy Ellipta 100-62.5-25] ALPRAZolam [Xanax] 0.25 mg PO Q8H PRN 07/12/20 09/22/20 Atorvastatin [Lipitor] 80 mg PO HS 07/12/20 09/22/20 Cholecalciferol [Vitamin D3 (25 1,000 unit PO W/SUPPER 07/12/20 09/22/20 Mcg = 1000 Iu)] Gabapentin 300 mg PO BID@0800,1200 07/12/20 09/22/20 Gabapentin 600 mg PO HS 07/12/20 09/22/20 L.acidoph,Paracasei, B.lactis 1 cap PO DAILY 07/12/20 09/22/20 [Probiotic] PARoxetine [Paxil] 20 mg PO DAILY 07/12/20 09/22/20 metFORMIN HCL [Glucophage] 500 mg PO DAILY 07/12/20 09/22/20 Albuterol Sulfate [Proventil Hfa] 2 puff INHALATION RT-Q6H PRN 08/04/20 09/22/20 Cyanocobalamin (Vitamin B-12) 1,000 mcg PO DAILY 08/04/20 09/22/20 [Vitamin B-12] Docusate [Colace] 100 mg PO DAILY PRN 08/04/20 09/22/20 Lidocaine 5% Patch [Lidoderm 5% 1 patch TOPICAL DAILY PRN 08/04/20 09/22/20 Patch] Metoprolol Succinate (ER) [Toprol 25 mg PO BID 09/22/20 09/22/20 Xl] busPIRone HCl [Buspar] 10 mg PO TID 09/22/20 09/22/20 Previous Rx's Medication Instructions Recorded Apixaban [Eliquis] 2.5 mg PO BID tablet 10/02/16 Nitroglycerin Sl Tabs [Nitrostat] 0.4 mg SUBLINGUAL Q5M PRN #20 tab 04/21/20 amLODIPine [Norvasc] 5 mg PO BID #60 tab 07/13/20 Clopidogrel [Plavix] 75 mg PO DAILY #30 tab 08/10/20 Sennosides-Docusate Sodium 1 tab PO DAILY #30 tablet 09/25/20 [Senokot-S] Allergies Allergy/AdvReac Type Severity Reaction Status Date / Time No Known Allergies Allergy Verified 09/22/20 09:33 Review of Systems ROS Other: All systems not noted in ROS Statement are negative. <Cristina Reich - Last Filed: 09/22/20 01:15> ROS Other: All systems not noted in ROS Statement are negative. <Silviano Hernández - Last Filed: 09/26/20 06:11> ROS Statement: Those systems with pertinent positive or pertinent negative responses have been documented in the HPI. Past Medical History Past Medical History: Atrial Fibrillation, Cancer, Heart Failure, COPD, CVA/TIA, Diabetes Mellitus, Deep Vein Thrombosis (DVT), Fibromyalgia, GERD/Reflux, Hyperlipidemia, Hypertension, Osteoarthritis (OA), Pneumonia, Sleep Apnea/CPAP/BIPAP, Vascular Disorder Additional Past Medical History / Comment(s): back pain , lung cancer-radiation opnly, HOME 02 2 LITERS N/C, BLOOD CLOT AFTER SX, CVA LT SIDE AFFECTED SINCE RESOLVED, HIATAL HERNIA. SHINGLES 30 YEARS AGO, DOES'NT USE CPAP MACHINE.in past for short period of time took oral meds for dm-then taken off meds-pt stated not considered diabetic now but occ will check bs., macular degeneration.past broken rt leg and lt wrist. Raynauds. Pt currently has 3 fractured ribs on the right t hat she has "had for years and will not heal". History of Any Multi-Drug Resistant Organisms: MRSA Date of last positivie culture/infection: 09/25/16 MDRO Source:: BRONCH WASH Past Surgical History: Cholecystectomy, Heart Catheterization With Stent, Orthopedic Surgery Additional Past Surgical History / Comment(s): rt leg repaired after break-has pins, lt wrist-plate and screws. lung bx, stents tung groins. Past Anesthesia/Blood Transfusion Reactions: Family History of Problems w/ Anesthesia Additional Past Anesthesia/Blood Transfusion Reaction / Comment(s): daughter has diff waking after aa Date of Last Stent Placement:: unk Past Psychological History: Depression Smoking Status: Former smoker Past Alcohol Use History: Rare Past Drug Use History: None Reported - Past Family History Father Family Medical History: Congestive Heart Failure (CHF), COPD Additional Family Medical History / Comment(s): emphysema Mother Family Medical History: Cancer <Cristina Reich - Last Filed: 09/22/20 01:15> General Exam General appearance: alert, in no apparent distress, other (Physical well- developed, well-nourished adult female patient in no acute distress. Vital signs upon presentation are temperature 98.1F, pulse 59, respirations 19, blood pressure 174/66, pulse ox 100% on room air.) Eye exam: Present: normal appearance, PERRL, EOMI. Absent: scleral icterus, conjunctival injection, periorbital swelling ENT exam: Present: normal exam, normal oropharynx, mucous membranes moist Respiratory exam: Present: normal lung sounds bilaterally. Absent: respiratory distress, wheezes, rales, rhonchi, stridor Cardiovascular Exam: Present: normal rhythm, bradycardia, normal heart sounds. Absent: systolic murmur, diastolic murmur, rubs, gallop, clicks GI/Abdominal exam: Present: soft, normal bowel sounds. Absent: distended, tenderness, guarding, rebound, rigid Neurological exam: Present: alert, oriented X3, CN II-XII intact Psychiatric exam: Present: normal affect, normal mood Skin exam: Present: warm, dry, intact, normal color. Absent: rash <Cristina Reich - Last Filed: 09/22/20 01:15> Course Vital Signs 09/21/20 09/22/20 09/22/20 23:19 00:15 00:30 Temperature 98.1 F Pulse Rate 59 L 52 L Pulse Rate [ 54 L Liner Machine Operator ] Respiratory 19 16 Rate Blood Pressure 174/66 138/73 O2 Sat by Pulse 100 98 Oximetry 09/22/20 09/22/20 01:05 02:11 Temperature 97.8 F Pulse Rate 58 L 54 L Pulse Rate [ Liner Machine Operator ] Respiratory 16 16 Rate Blood Pressure 144/89 119/63 O2 Sat by Pulse 98 98 Oximetry Medical Decision Making - Lab Data Result diagrams: 09/21/20 23:48 09/21/20 23:48 - Radiology Data Radiology results: report reviewed, image reviewed <DamirCristina Terry - Last Filed: 09/22/20 01:15> - Lab Data Result diagrams: 09/25/20 01:43 09/25/20 01:43 <Silviano Hernández - Last Filed: 09/26/20 06:11> - Medical Decision Making 80-year-old female patient presents to the emergency department today for evaluation of dizziness, weakness, nausea with low heart rates. Physical examination did reveal heart rates in the 50s, was regular Labs reviewed and revealed normal white blood cell count. Otherwise unremarkable. EKG showed sinus bradycardia with rates in the 50s. Patient did report rates in the 20s at home, we will admit for further telemetry monitoring evaluation by cardiology. Could be related to recent medication dosage changed, her metoprolol was increased to 50 mg 2 days ago. Upon reevaluation patient is resting in bed is reporting some pain to the right groin which has been going on intermittently over the last couple of weeks. We will add ultrasound for the morning. Chest xray also showed right lower lobe infiltrate, patient states she has been coughing for the last couple of days. No fever. We'll order antibiotics. She is given a dose of pain medication. Case was discussed with my attending Dr. Hernández. Patient agrees with the plan. (Cristina Reich) I saw this patient in conjunction with the physician assistant professor. I performed independent history and physical exam. Agree with case management. (Silviano Hernández) - Lab Data Lab Results 09/21/20 09/21/20 09/21/20 Range/Units 23:48 23:48 23:48 WBC 9.2 (3.8-10.6) k/uL RBC 4.36 (3.80-5.40) m/uL Hgb 12.5 (11.4-16.0) gm/dL Hct 38.7 (34.0-46.0) % MCV 88.6 (80.0-100.0) fL MCH 28.6 (25.0-35.0) pg MCHC 32.2 (31.0-37.0) g/dL RDW 13.6 (11.5-15.5) % Plt Count 274 (150-450) k/uL MPV 7.7 Neutrophils % 55 % Lymphocytes % 33 % Monocytes % 6 % Eosinophils % 3 % Basophils % 1 % Neutrophils # 5.1 (1.3-7.7) k/uL Lymphocytes # 3.0 (1.0-4.8) k/uL Monocytes # 0.5 (0-1.0) k/uL Eosinophils # 0.3 (0-0.7) k/uL Basophils # 0.1 (0-0.2) k/uL PT 10.5 (9.0-12.0) sec INR 1.0 (<1.2) APTT 23.0 (22.0-30.0) sec Sodium 136 L (137-145) mmol/L Potassium 4.5 (3.5-5.1) mmol/L Chloride 100 (98-107) mmol/L Carbon Dioxide 28 (22-30) mmol/L Anion Gap 8 mmol/L BUN 28 H (7-17) mg/dL Creatinine 0.68 (0.52-1.04) mg/dL Est GFR (CKD-EPI)AfAm >90 (>60 ml/min/1.73 sqM) Est GFR (CKD-EPI)NonAf 82 (>60 ml/min/1.73 sqM) Glucose 117 H (74-99) mg/dL Calcium 9.8 (8.4-10.2) mg/dL Magnesium 1.7 (1.6-2.3) mg/dL Total Bilirubin 0.5 (0.2-1.3) mg/dL AST 33 (14-36) U/L ALT 23 (4-34) U/L Alkaline Phosphatase 92 (38-126) U/L Troponin I (0.000-0.034) ng/mL Total Protein 7.3 (6.3-8.2) g/dL Albumin 4.5 (3.5-5.0) g/dL 09/21/20 Range/Units 23:48 WBC (3.8-10.6) k/uL RBC (3.80-5.40) m/uL Hgb (11.4-16.0) gm/dL Hct (34.0-46.0) % MCV (80.0-100.0) fL MCH (25.0-35.0) pg MCHC (31.0-37.0) g/dL RDW (11.5-15.5) % Plt Count (150-450) k/uL MPV Neutrophils % % Lymphocytes % % Monocytes % % Eosinophils % % Basophils % % Neutrophils # (1.3-7.7) k/uL Lymphocytes # (1.0-4.8) k/uL Monocytes # (0-1.0) k/uL Eosinophils # (0-0.7) k/uL Basophils # (0-0.2) k/uL PT (9.0-12.0) sec INR (<1.2) APTT (22.0-30.0) sec Sodium (137-145) mmol/L Potassium (3.5-5.1) mmol/L Chloride (98-107) mmol/L Carbon Dioxide (22-30) mmol/L Anion Gap mmol/L BUN (7-17) mg/dL Creatinine (0.52-1.04) mg/dL Est GFR (CKD-EPI)AfAm (>60 ml/min/1.73 sqM) Est GFR (CKD-EPI)NonAf (>60 ml/min/1.73 sqM) Glucose (74-99) mg/dL Calcium (8.4-10.2) mg/dL Magnesium (1.6-2.3) mg/dL Total Bilirubin (0.2-1.3) mg/dL AST (14-36) U/L ALT (4-34) U/L Alkaline Phosphatase (38-126) U/L Troponin I <0.012 (0.000-0.034) ng/mL Total Protein (6.3-8.2) g/dL Albumin (3.5-5.0) g/dL - Radiology Data Two-view x-ray of the chest is obtained. Report reviewed in its entirety. Impression by Dr. Cutler shows small infiltrate in the right lower lobe appears new compared to recent exam consistent with pneumonia. Normal heart. (Cristina Reich) Disposition Decision to Admit Reason: Admit from EC Decision Date: 09/22/20 Decision Time: 00:59 <Cristina Reich - Last Filed: 09/22/20 01:15> <Silviano Hernández - Last Filed: 09/26/20 06:11> Clinical Impression: Symptomatic bradycardia, Pneumonia Disposition: ADMITTED IP TO THIS [facility] Condition: Serious
[2020-09-22] MEDS ORDERED: NALOXONE 0.4 MG/ML 1 ML VIAL IV PRN (01:11)
[2020-09-22] MEDS ORDERED: ONDANSETRON 4 MG/2 ML VIAL IVP PRN (01:11)
[2020-09-22] MEDS ORDERED: PNEUMONIA PROTOCOL UTILIZED 1 EACH MISC PO PRN (01:13)
[2020-09-22] MEDS ORDERED: PIPERACILLIN-TAZOBACTAM 3.375 GM in SODIUM CHLORIDE 0.9% 100 ML IVPB STA (01:13)
[2020-09-22] MEDS ORDERED: AZITHROMYCIN 500 MG in SODIUM CHLORIDE 0.9% 250 ML IVPB STA (01:13)
[2020-09-22 03:01] LABS: Glucose,Whole Blood 112 mg/dL (75-99)
[2020-09-22 06:41] LABS: Glucose,Whole Blood 183 mg/dL (75-99)
--- NOTE | 2020-09-22 08:05 | P.CRDCN ---
History of Present Illness Consult date: 09/22/20 Reason for Consult (text): Symptomatic bradycardia History of present illness: HISTORY OF PRESENTING ILLNESS This is a pleasant 80-year-old female past medical history significant for coronary artery disease status post PCI, paroxysmal atrial fibrillation on long-term anticoagulation, hypertension, dyslipidemia, valvular heart disease, COPD and history of lung cancer in 2011. She follows in the office with Dr. Lance. Patient has had episodes of presyncope with bradycardia and hypotension with multiple changes to her blood pressure medications. Her most recent hospitalization was September 02 at which time she presented with palpitations and chest pain related to episodes of A. fib with RVR. No medication changes were made at that time . Patient now presented to the emergency center due to feeling of dizziness, weakness, nausea and near syncope. Symptoms occurred yesterday and were persistent. She checked her heart rate by pulse ox device and it registered her heart rate as in the 28. She had a recent increase in her metoprolol from 25mg to 50 mg 2 days prior. Patient was found to be afebrile, initial heart rates in the 50s. Blood pressure 174/66. CBC was unremarkable. BUN 28 creatinine 0.68. Blood sugar 117. Liver function tests were normal. Troponin normal. Influenza A and B, RSV and Covid 19 testing were all negative. Chest x-ray reveals small infiltrate in the right lower lobe consistent with pne umonia. Patient was started on antibiotics. Heart rate has been running in the 40-50s with 2.1 second pauses through the night. At the time of this evaluation, patient states that she has no symptoms. No lightheadedness or dizziness. She did have an episode of sharp chest pain which resolved on its own this morning. She is also complaining of right groin pain from a stent that was placed more than 20 years ago. She states she has this intermittently and today it is bothering her. Right groin is tender to touch. Echocardiogram from August 06 revealed EF of 55-60%, trace mitral regurgitation, trace tricuspid regurgitation. REVIEW OF SYSTEMS At the time of my exam: CONSTITUTIONAL: Denies fever or chills. CARDIOVASCULAR: Denies chest pain, shortness of breath, orthopnea, PND or palpi tations. Reports right groin tenderness and pain. RESPIRATORY: Denies cough. GASTROINTESTINAL: Denies abdominal pain, diarrhea, constipation, nausea or vomiting. MUSCULOSKELETAL: Denies myalgias. NEUROLOGIC: Denies numbness, tingling, headacbe or weakness. ENDOCRINE: Denies fatigue, weight change, polydipsia or polyurina. GENITOURINARY: Denies burning, hematuria or urgency with micturation. HEMATOLOGIC: Denies history of anemia or bleeding. PHYSICAL EXAMINATION CONSTITUTIONAL: No apparent distress. Patient is resting in bed and appears to be comfortable. HEENT: Head is normocephalic. Pupils are equal, round. Sclerae anicteric. Mucous membranes of the mouth are moist. No JVD. No carotid bruit. CHEST EXAMINATION: Lungs are clear to auscultation. No chest wall tenderness is noted on palpation or with deep breathing. HEART EXAMINATION: Regular rate and rhythm. S1, S2 heard. Soft ejection murmur at the base, no gallops or rub. ABDOMEN: Soft, nontender. Positive bowel sounds. EXTREMITIES: 2+ peripheral pulses, no lower extremity edema and no calf tenderness. Tenderness to the right groin. NEUROLOGIC EXAMINATION: Patient is awake, alert and oriented x3. ASSESSMENT Bradycardia most likely secondary to increase in Lopressor Paroxysmal atrial fibrillation on long-term anticoagulation Hypertension Dyslipidemia COPD PLAN Hold beta javier Hold all rate control medications due to bradycardia Hold eliquis in case patient requires pacemaker insertion Monitor closely for bradycardia and possible need for pacemaker Further recommendations as patient progresses Thank you kindly for this consultation. Nurse Practitioner note has been reviewed, I agree with a documented findings and plan of care. Patient was seen and examined. Past Medical History Past Medical History: Atrial Fibrillation, Cancer, Heart Failure, COPD, CVA/TIA, Diabetes Mellitus, Deep Vein Thrombosis (DVT), Fibromyalgia, GERD/Reflux, Hyperlipidemia, Hypertension, Osteoarthritis (OA), Pneumonia, Sleep Apnea/CPAP/BIPAP, Vascular Disorder Additional Past Medical History / Comment(s): back pain , lung cancer-radiation opnly, HOME 02 2 LITERS N/C, BLOOD CLOT AFTER SX, CVA LT SIDE AFFECTED SINCE RESOLVED, HIATAL HERNIA. SHINGLES 30 YEARS AGO, DOES'NT USE CPAP MACHINE.in past for short period of time took oral meds for dm-then taken off meds-pt stated not considered diabetic now but occ will check bs., macular degeneration.past broken rt leg and lt wrist. Raynauds. Pt currently has 3 fractured ribs on the right that she has "had for years and will not heal". History of Any Multi-Drug Resistant Organisms: MRSA Date of last positivie culture/infection: 09/25/16 MDRO Source:: BRONCH WASH Past Surgical History: Cholecystectomy, Heart Catheterization With Stent, Orthopedic Surgery Additional Past Surgical History / Comment(s): rt leg repaired after break-has pins, lt wrist-plate and screws. lung bx, stents tung groins. Past Anesthesia/Blood Transfusion Reactions: Family History of Problems w/ Anesthesia Additional Past Anesthesia/Blood Transfusion Reaction / Comment(s): daughter has diff waking after aa Date of Last Stent Placement:: unk Past Psychological History: Depression Additional Psychological History / Comment(s): [place] lives between [place] and [place]. doesn't drive-either daughters or sister takes her places. has home 02, nebulizer. . Ongoing tobacco smoker stopping just may 2016. Has a history of lung cancer with radiation. Smoking Status: Former smoker Past Alcohol Use History: Rare Additional Past Alcohol Use History / Comment(s): started smopking at age 14(1 [phone]), quit 2016 Past Drug Use History: None Reported - Past Family History Father Family Medical History: Congestive Heart Failure (CHF), COPD Additional Family Medical History / Comment(s): emphysema Mother Family Medical History: Cancer Medications and Allergies Home Medications Medication Instructions Recorded Confirmed Type Pantoprazole Sodium [Protonix] 40 mg PO QAM 09/23/16 09/22/20 History Apixaban [Eliquis] 2.5 mg PO BID tablet 10/02/16 09/22/20 Rx Fluticasone/Umeclidin/Vilanter 1 puff INHALATION RT-DAILY 04/19/20 09/22/20 History [Trelegy Ellipta 100-62.5-25] Nitroglycerin Sl Tabs [Nitrostat] 0.4 mg SUBLINGUAL Q5M PRN #20 tab 04/21/20 09/22/20 Rx ALPRAZolam [Xanax] 0.25 mg PO Q8H PRN 07/12/20 09/22/20 History Atorvastatin [Lipitor] 80 mg PO HS 07/12/20 09/22/20 History Cholecalciferol [Vitamin D3 (25 1,000 unit PO W/SUPPER 07/12/20 09/22/20 History Mcg = 1000 Iu)] Gabapentin 300 mg PO BID@0800,1200 07/12/20 09/22/20 History Gabapentin 600 mg PO HS 07/12/20 09/22/20 History L.acidoph,Paracasei, B.lactis 1 cap PO DAILY 07/12/20 09/22/20 History [Probiotic] PARoxetine [Paxil] 20 mg PO DAILY 07/12/20 09/22/20 History metFORMIN HCL [Glucophage] 500 mg PO DAILY 07/12/20 09/22/20 History amLODIPine [Norvasc] 5 mg PO BID #60 tab 07/13/20 09/22/20 Rx Albuterol Sulfate [Proventil Hfa] 2 puff INHALATION RT-Q6H PRN 08/04/20 09/22/20 History Cyanocobalamin (Vitamin B-12) 1,000 mcg PO DAILY 08/04/20 09/22/20 History [Vitamin B-12] Docusate [Colace] 100 mg PO DAILY PRN 08/04/20 09/22/20 History Lidocaine 5% Patch [Lidoderm 5% 1 patch TOPICAL DAILY PRN 08/04/20 09/22/20 History Patch] Clopidogrel [Plavix] 75 mg PO DAILY #30 tab 08/10/20 09/22/20 Rx Metoprolol Succinate (ER) [Toprol 25 mg PO BID 09/22/20 09/22/20 History Xl] busPIRone HCl [Buspar] 10 mg PO TID 09/22/20 09/22/20 History Allergies Allergy/AdvReac Type Severity Reaction Status Date / Time No Known Allergies Allergy Verified 09/22/20 09:33 Physical Exam Vitals: Vital Signs Temp Pulse Pulse Resp BP BP Pulse Ox 09/22/20 03:00 97.7 F 52 L 16 143/67 98 09/22/20 02:11 97.8 F 54 L 16 119/63 98 09/22/20 01:05 58 L 16 144/89 98 09/22/20 00:30 52 L 16 138/73 98 09/22/20 00:15 54 L 09/21/20 23:19 98.1 F 59 L 19 174/66 100 Intake and Output 09/21/20 09/22/20 09/22/20 22:59 06:59 14:59 Other: Voiding Method Toilet # Voids 1 Weight 55.6 kg Results 09/21/20 23:48 09/21/20 23:48 Cardiac Enzymes 09/21/20 09/21/20 Range/Units 23:48 23:48 AST 33 (14-36) U/L Troponin I <0.012 (0.000-0.034) ng/mL Coagulation 09/21/20 Range/Units 23:48 PT 10.5 (9.0-12.0) sec APTT 23.0 (22.0-30.0) sec CBC 09/21/20 Range/Units 23:48 WBC 9.2 (3.8-10.6) k/uL RBC 4.36 (3.80-5.40) m/uL Hgb 12.5 (11.4-16.0) gm/dL Hct 38.7 (34.0-46.0) % Plt Count 274 (150-450) k/uL Comprehensive Metabolic Panel 09/21/20 Range/Units 23:48 Sodium 136 L (137-145) mmol/L Potassium 4.5 (3.5-5.1) mmol/L Chloride 100 (98-107) mmol/L Carbon Dioxide 28 (22-30) mmol/L BUN 28 H (7-17) mg/dL Creatinine 0.68 (0.52-1.04) mg/dL Glucose 117 H (74-99) mg/dL Calcium 9.8 (8.4-10.2) mg/dL AST 33 (14-36) U/L ALT 23 (4-34) U/L Alkaline Phosphatase 92 (38-126) U/L Total Protein 7.3 (6.3-8.2) g/dL Albumin 4.5 (3.5-5.0) g/dL Current Medications Generic Name Dose Route Start Last Admin Trade Name Freq PRN Reason Stop Dose Admin Piperacillin Sod/Tazobactam 100 mls @ 25 mls/hr 09/22/20 08:00 Sod 3.375 gm/ Sodium Chloride IVPB 09/29/20 08:01 Q8HR LETICIA Azithromycin 500 mg/ Sodium 250 mls @ 250 mls/hr 09/23/20 21:00 Chloride IVPB 09/27/20 21:01 HS [facility] Miscellaneous Information 1 each 09/22/20 01:13 Pneumonia Protocol Utilized 1 Each Misc PO ONCE PRN Per Protocol Morphine Sulfate 2 mg 09/22/20 01:11 Morphine Sulfate 2 Mg/Ml Syringe IV Q3H PRN Severe Pain Naloxone HCl 0.2 mg 09/22/20 01:11 Naloxone 0.4 Mg/Ml 1 Ml Vial IV Q2M PRN Opioid Reversal Intake and Output 09/21/20 09/22/20 09/22/20 22:59 06:59 14:59 Other: Voiding Method Toilet # Voids 1 Weight 55.6 kg 09/21/20 23:48 09/21/20 23:48
[2020-09-22] MEDS: MORPHINE SULFATE 2 MG/ML SYRINGE IV PRN (08:47)
[2020-09-22] MEDS: PIPERACILLIN-TAZOBACTAM 3.375 GM in SODIUM CHLORIDE 0.9% 100 ML IVPB SCH ×2 (08:50→15:50)
--- NOTE | 2020-09-22 09:00 | US ---
EXAMINATION TYPE: US groin RT DATE OF EXAM: 09/22/2020 COMPARISON: NONE CLINICAL HISTORY: Pain. Right groin pain. Scanned area of pain in right groin hypoechoic area seen 1.3 x ..6 cm. This likely represents a nonen larged lymph node. IMPRESSION: No significant abnormality seen.
[2020-09-22] MEDS ORDERED: LIDOCAINE 5% PATCH TOPICAL PRN (09:09)
[2020-09-22] MEDS ORDERED: RX INFO: IV CONTRAST WAS GIVEN 1 EACH MISC MISCELLANE PRN (09:14)
[2020-09-22] MEDS ORDERED: APIXABAN 2.5 MG TABLET PO SCH (10:00)
--- NOTE | 2020-09-22 11:06 | P.HPIM ---
History of Present Illness H&P Date: 09/22/20 Chief Complaint: Symptomatically bradycardia History of present illness This is an 80-year-old patient of Dr. Leong with a past medical history signif icant for coronary artery disease past post PCI, proximal atrial fibrillation on long-term anticoagulant and antiarrhythmic, hypertension, hyperlipidemia, valvular disease, COPD, non-small cell lung CA post radiation, diabetes, peripheral vascular disease with previous stenting, history of CVA with left- sided weakness resolved, GERD. She has had episodes of presyncope with bradycardia and hypotension with multiple changes to her blood pressure medications. Patient was most recently hospitalized on September 02 where she presented with palpitations and chest pains related to episodes of atrial fi brillation with RVR. There are no medication changes done at that time. Patient presented to the emergency room today due to low heart rate reading from her pulse ox device. The device registers her heart rate in 20s. Patient states she was feeling dizzy, weakness, nausea and near syncope at that time. The symptoms occurred yesterday and were persistent. Upon arrival to the emergency room her heart rate was found to be in the 50s. Blood pressure 174/66. BUN was 28 and creatinine 0.6. Blood sugar is 117. Influenza A and B RSV and COVID-19 testing were all negative. Chest x-ray revealed a small infiltrate in the right lobe consistent with pneumonia. She was started on antibiotics. Patient's heart rate continues to be in the 40s and 50s with a 2.1 second pause throughout the night. At this time patient is found resting comfortable and better without any complaints of dizziness lightheadedness or syncope. Patient denies any chest pain at this time. She is complaining of right groin pain from previous stent that was placed more than 20 years ago. Patient states that the area is tender to touch and it is intermittent and bothering her today. Echocardiogram from August 06 reveals EF of 55-60% with trace mitral regurgitation and trace tricuspid regurgitation. Bone scan on 09/02 was negative Review Of Systems: Constitutional: No fever, no chills, no night sweats. No weight change. No weakness, fatigue or lethargy. No daytime sleepiness. EENT: No headache. No blurred vision or double vision, no loss of vision. No loss of Hearing, no ringing in the ears, no dizziness. No nasal drainage or congestion. No epistaxis. No sore throat. Lungs: No shortness of breath, cough, no sputum production. No wheezing. Cardiovascular: No chest pain, no lower extremity edema. No palpitations. No paroxysmal nocturnal dyspnea. No orthopnea. Reports lightheadedness and dizziness - resolved. Reports syncopal episodes. Abdominal: no abdominal discomfort. No nausea, vomiting. no diarrhea. No constipation. No bloody or tarry stools. no loss of appetite. Genitourinary: No dysuria, increased frequency, urgency. No urinary retention. Musculoskeletal: reports right groin pain, No myalgias. No muscle weakness, no gait dysfunction, no frequent falls. No back pain. No neck pain. Integumentary: No wounds, no lesions. No rash or pruritus. No unusual bruising. No change in hair or nails. Neurologic: No aphasia. No facial droop. No change in mentation. No head injury. No headache. No paralysis. No paresthesia. Psychiatric: No depression. No anxiety. No mood swings. Endocrine: No abnormal blood sugars. No weight change. No excessive sweating or thirst. Social history: Patient was a smoker for 60 years and quit in May 2016. Patient has home O2 at 2 L nasal cannula and nebulizer. She has a walker that she uses as needed. She was in a townhouse with her daughter who lives next-door. Family history: Mother from female cancer. Father's from coronary artery disease. Patient has one sister who from CVA with history of previous TIAs. Patient has one brother that has passed from anemia of undetermined. Patient has one daughter with history of hypertension Physical examination General Appearance: Alert, cooperative, no distress, this is a 80-year-old pleasant female who appears stated age. Neck HEENT: Supple, no lymphadenopathy, no thyroid enlargement, no carotid bruits. Lungs: Clear to auscultation without crackles or wheezes no rhonchi, no deformity. Chest Wall: Chest wall normal expansion with deep inspiration no tenderness and no deformity was found on exam, no costochondral pain or discomfort. Heart: Regular rate and rhythm, S1, S2 normal, no murmur, rub or gallop. Back: Symmetric, no curvature, ROM normal, no CVA tenderness. Abdomen: Soft, non-tender, no rebound or rigidity, no hepatosplenomegaly. Extremities: Extremities normal, atraumatic, no cyanosis or edema. Pulses: 2+ and symmetric. Skin: Skin color, texture, tugor normal, no rashes or lesions. Neurologic: Alert oriented x3 cranial nerves II through XII intact, no motor deficit, no abnormal balance or gait Assessment and plan 1. Systematic bradycardia. Cardiology consult appreciated. Hold beta blockers and rate controlled medications due to bradycardia. Monitor closely for bradycardia and possible need for pacemaker. 2. Lung mass with pneumonia. Patient has history of non-small cell lung cancer status post radiation and follows with Dr. Patel. We will repeat a chest CT with contrast. Patient did have a negative bone scan on 09/02/2020. Zosyn azithromycin IV piggyback. Blood culture and sputum culture ordered 3. Groin pain with history of stent right iliac. 4. Paroxysmal atrial fibrillation. Hold antiarrhythmics and beta javier 5. Hypertension. Continue amlodipine 5 mg by mouth twice a day 6. Hyperlipidemia. Continue atorvastatin 80 mg by mouth at bedtime 7. 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 Continue gabapentin 600 mg by mouth at bedtime, 300 mg by mouth twice a day 8. Coronary artery disease with previous stenting. Plavix 75 mg by mouth 9. Peripheral vascular disease with previous stenting. Plavix 75 mg by mouth 10. Obstructive sleep apnea unable to wear CPAP 11. COPD withaout acute exacerbation. Continue Ventolin nebulizer, Symbicort inhaler 2 puffs, 12. 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 13. Diabetes mellitus type 2. Hold metformin. Accu-Cheks before meals at bedtime with sliding scale coverage 14. History of non-small cell lung cancer status post radiation and follows with Dr. Patel 15. History of CVA with left-sided weakness, resolved. 16. History of DVT postsurgical resolved 17. GERD and GI prophylaxis. Continue Protonix 18. Generalized anxiety and recurrent depression.b continue Paxil 19. DVT prophylaxis. SCDs and YONI hose CODE STATUS: Full code Patient needed to the hassle for minimum 2 nights day Discharge plan: Home is unlikely with home care Impression and plan of care have been directed as dictated by the signing physician. Toya Barron nurse practitioner acting as scribe for signing physician. Past Medical History Past Medical History: Atrial Fibrillation, Cancer, Heart Failure, COPD, CVA/TIA, Diabetes Mellitus, Deep Vein Thrombosis (DVT), Fibromyalgia, GERD/Reflux, Hyperlipidemia, Hypertension, Osteoarthritis (OA), Pneumonia, Sleep Apnea/CPAP/BIPAP, Vascular Disorder Additional Past Medical History / Comment(s): back pain , lung cancer-radiation opnly, HOME 02 2 LITERS [place], BLOOD CLOT AFTER SX, CVA LT SIDE AFFECTED SINCE RESOLVED, HIATAL HERNIA. SHINGLES 30 YEARS AGO, DOES'NT USE CPAP MACHINE.in past for short period of time took oral meds for dm-then taken off meds-pt stated not considered diabetic now but occ will check bs., macular degeneration.past broken rt leg and lt wrist. Raynauds. Pt currently has 3 fractured ribs on the right that she has "had for years and will not heal". History of Any Multi-Drug Resistant Organisms: MRSA Date of last positivie culture/infection: 09/25/16 MDRO Source:: BRONCH WASH Past Surgical History: Cholecystectomy, Heart Catheterization With Stent, Orthopedic Surgery Additional Past Surgical History / Comment(s): rt leg repaired after break-has pins, lt wrist-plate and screws. lung bx, stents tung groins. Past Anesthesia/Blood Transfusion Reactions: Family History of Problems w/ Anesthesia Additional Past Anesthesia/Blood Transfusion Reaction / Comment(s): daughter has diff waking after aa Date of Last Stent Placement:: unk Past Psychological History: Depression Additional Psychological History / Comment(s): pt lives between [place] and [place]. doesn't drive-either daughters or sister takes her places. has home 02, nebulizer. . Ongoing tobacco smoker stopping just may 2016. Has a history of lung cancer with radiation. Smoking Status: Former smoker Past Alcohol Use History: Rare Additional Past Alcohol Use History / Comment(s): started smopking at age 14(1955), quit 2016 Past Drug Use History: None Reported - Past Family History Father Family Medical History: Congestive Heart Failure (CHF), COPD Additional Family Medical History / Comment(s): emphysema Mother Family Medical History: Cancer Medications and Allergies Home Medications Medication Instructions Recorded Confirmed Type Pantoprazole Sodium [Protonix] 40 mg PO QAM 09/23/16 09/22/20 History Apixaban [Eliquis] 2.5 mg PO BID tablet 10/02/16 09/22/20 Rx Fluticasone/Umeclidin/Vilanter 1 puff INHALATION RT-DAILY 04/19/20 09/22/20 History [Trelegy Ellipta 100-62.5-25] Nitroglycerin Sl Tabs [Nitrostat] 0.4 mg SUBLINGUAL Q5M PRN #20 tab 04/21/20 09/22/20 Rx ALPRAZolam [Xanax] 0.25 mg PO Q8H PRN 07/12/20 09/22/20 History Atorvastatin [Lipitor] 80 mg PO HS 07/12/20 09/22/20 History Cholecalciferol [Vitamin D3 (25 1,000 unit PO W/SUPPER 07/12/20 09/22/20 History Mcg = 1000 Iu)] Gabapentin 300 mg PO BID@0800,1200 07/12/20 09/22/20 History Gabapentin 600 mg PO HS 07/12/20 09/22/20 History L.acidoph,Paracasei, B.lactis 1 cap PO DAILY 07/12/20 09/22/20 History [Probiotic] PARoxetine [Paxil] 20 mg PO DAILY 07/12/20 09/22/20 History metFORMIN HCL [Glucophage] 500 mg PO DAILY 07/12/20 09/22/20 History amLODIPine [Norvasc] 5 mg PO BID #60 tab 07/13/20 09/22/20 Rx Albuterol Sulfate [Proventil Hfa] 2 puff INHALATION RT-Q6H PRN 08/04/20 09/22/20 History Cyanocobalamin (Vitamin B-12) 1,000 mcg PO DAILY 08/04/20 09/22/20 History [Vitamin B-12] Docusate [Colace] 100 mg PO DAILY PRN 08/04/20 09/22/20 History Lidocaine 5% Patch [Lidoderm 5% 1 patch TOPICAL DAILY PRN 08/04/20 09/22/20 History Patch] Clopidogrel [Plavix] 75 mg PO DAILY #30 tab 08/10/20 09/22/20 Rx Metoprolol Succinate (ER) [Toprol 25 mg PO BID 09/22/20 09/22/20 History Xl] busPIRone HCl [Buspar] 10 mg PO TID 09/22/20 09/22/20 History Allergies Allergy/AdvReac Type Severity Reaction Status Date / Time No Known Allergies Allergy Verified 09/22/20 09:33 Physical Exam Vitals: Vital Signs Temp Pulse Pulse Resp BP BP Pulse Ox 09/22/20 08:00 97.5 F L 56 L 16 160/69 99 09/22/20 03:00 97.7 F 52 L 16 143/67 98 09/22/20 02:11 97.8 F 54 L 16 119/63 98 09/22/20 01:05 58 L 16 144/89 98 09/22/20 00:30 52 L 16 138/73 98 09/22/20 00:15 54 L 09/21/20 23:19 98.1 F 59 L 19 174/66 100 Intake and Output 09/21/20 09/22/20 09/22/20 22:59 06:59 14:59 Intake Total 240 Balance 240 Intake: Oral 240 Other: Voiding Method Toilet Toilet # Voids 1 Weight 55.6 kg Results CBC & Chem 7: 09/21/20 23:48 09/21/20 23:48 Labs: Abnormal Lab Results - Last 24 Hours (Table) 09/21/20 09/22/20 09/22/20 Range/Units 23:48 02:57 06:32 Sodium 136 L (137-145) mmol/L BUN 28 H (7-17) mg/dL Glucose 117 H (74-99) mg/dL POC Glucose (mg/dL) 112 H 183 H (75-99) mg/dL Thrombosis Risk Factor Assmnt - Choose All That Apply Any of the Below Risk Factors Present?: Yes Each Factor Represents 1 point: Abnormal pulmonary function (COPD) Each Risk Factor Represents 3 Points: Age 75 years or older, History of DVT/PE Thrombosis Risk Factor Assessment Total Risk Factor Score: 7 Thrombosis Risk Factor Assessment Level: High Risk
[2020-09-22] MEDS: PANTOPRAZOLE 40 MG TABLET PO SCH (11:34)
[2020-09-22] MEDS: PARoxetine 20 MG TAB PO SCH (11:34)
[2020-09-22] MEDS: CLOPIDOGREL 75 MG TAB PO SCH (11:34)
[2020-09-22] MEDS: CYANOCOBALAMIN 500 MCG TAB PO SCH (11:34)
[2020-09-22] MEDS: GABAPENTIN 300 MG CAP PO SCH ×2 (11:34→21:06)
[2020-09-22] MEDS: amLODIPine 5 MG TAB PO SCH ×2 (11:34→21:06)
--- NOTE | 2020-09-22 11:37 | CT ---
EXAMINATION TYPE: CT chest w con DATE OF EXAM: 09/22/2020 COMPARISON: 01/11/2020 HISTORY: lung mass CT DLP: 242.3 mGycm Automated exposure control for dose reduction was used. TECHNIQUE: CT scan of the chest is performed with IV Contrast, patient injected with 100 mL of Isovue 300. MIP Images are created on CT scanner and reviewed. 3D reconstructed images are created on an independent workstation and reviewed. FINDINGS: There are moderate diffuse emphysematous changes predominantly in the upper lobes. In the right upper lobe there are cluster of nodular densities in a region which was previously focal area of linear thickening. Measures approximately 1 cm in size. The findings are suspicious for deve loping mass within a scar. Biopsy should be considered. There is dense scarring in the right lung base which is stable. There is a small 5 mm calcified nodul e in the left lung base which is stable as well. The great vessels chest appear normal and there is no mediastinal, hilar or axillary adenopathy. Limi sudhakar scanning through the upper abdomen reveals no significant abnormality. The osseous structures are intact. IMPRESSION: New developing cluster of nodules in the right upper lobe suspicious for neoplasm. CT guided biopsy s hould be and/or PET scan should be considered.
[2020-09-22 11:47] LABS: Glucose,Whole Blood 100 mg/dL (75-99)
[2020-09-22] MEDS: INSULIN ASPART (NovoLOG) 100 UNIT/ML VIAL SQ SCH ×3 (12:21→21:06)
[2020-09-22] MEDS: IPRATROPIUM 0.5 MG/2.5 ML NEBU INHALATION SCH ×3 (13:37→20:48)
[2020-09-22] MEDS: CHOLECALCIFEROL 25 MCG (1000 IU) TABLET PO SCH (15:50)
[2020-09-22] MEDS: ALBUTEROL NEBULIZED 2.5 MG/3 ML INHALATION PRN ×2 (16:03→20:48)
[2020-09-22 16:49] LABS: Glucose,Whole Blood 150 mg/dL (75-99)
[2020-09-22 20:26] LABS: Glucose,Whole Blood 131 mg/dL (75-99)
[2020-09-22] MEDS: SYMBICORT 80-4.5 MCG INHALER INHALATION SCH (20:44)
[2020-09-22] MEDS: ATORVASTATIN 80 MG TAB PO SCH (21:06)
[2020-09-22] MEDS: DOCUSATE 100 MG CAP PO PRN (21:11)
[2020-09-23] MEDS: PIPERACILLIN-TAZOBACTAM 3.375 GM in SODIUM CHLORIDE 0.9% 100 ML IVPB SCH ×2 (01:07→08:42)
[2020-09-23 06:25] LABS: Glucose,Whole Blood 125 mg/dL (75-99)
[2020-09-23] MEDS: INSULIN ASPART (NovoLOG) 100 UNIT/ML VIAL SQ SCH ×4 (06:44→21:26)
--- NOTE | 2020-09-23 07:20 | XR ---
EXAMINATION TYPE: XR chest 2V DATE OF EXAM: 09/23/2020 COMPARISON: 09/23/2019 TECHNIQUE: PA and lateral views submitted. HISTORY: Abnormal x-ray FINDINGS: Patchy right perihilar infiltrate. There is no pneumothorax. Nodules noted by CT scan is not well-see n by standard x-ray. Hyperinflation suggests COPD. Surgical clips. Atherosclerotic change aorta. Susp icion of calcified granuloma lateral view. IMPRESSION: 1. COPD with suspected patchy right perihilar infiltrate.
[2020-09-23 07:36] LABS: Basophils % (A) 1 %; Eosinophils # (A) 0.2 k/uL (0-0.7); Eosinophils % (A) 2 %; HGB 11.8 gm/dL (11.4-16.0); Lymphocytes # (A) 2.6 k/uL (1.0-4.8); Lymphocytes % (A) 33 %; MCHC 31.8 g/dL (31.0-37.0); MCV 91.3 fL (80.0-100.0); Mean Platelet Volume 7.9; Monocytes # (A) 0.5 k/uL (0-1.0); Monocytes % (A) 6 %; Neutrophils # (A) 4.5 k/uL (1.3-7.7); Neutrophils % (A) 57 %; Platelet Count 241 k/uL (150-450); RBC 4.06 m/uL (3.80-5.40); RDW 13.5 % (11.5-15.5); WBC 7.9 k/uL (3.8-10.6)
[2020-09-23 07:47] LABS: Albumin 3.9 g/dL (3.5-5.0); Calcium 9.2 mg/dL (8.4-10.2); Magnesium 1.9 mg/dL (1.6-2.3); Potassium 4.3 mmol/L (3.5-5.1); Total Bilirubin 0.7 mg/dL (0.2-1.3); Total Protein 6.4 g/dL (6.3-8.2)
[2020-09-23] MEDS: GABAPENTIN 300 MG CAP PO SCH ×3 (08:42→21:27)
[2020-09-23] MEDS: CYANOCOBALAMIN 500 MCG TAB PO SCH (08:42)
[2020-09-23] MEDS: PARoxetine 20 MG TAB PO SCH (08:42)
[2020-09-23] MEDS: amLODIPine 5 MG TAB PO SCH ×2 (08:42→21:26)
[2020-09-23] MEDS: CLOPIDOGREL 75 MG TAB PO SCH (08:42)
[2020-09-23] MEDS: PANTOPRAZOLE 40 MG TABLET PO SCH (08:42)
[2020-09-23] MEDS: IPRATROPIUM 0.5 MG/2.5 ML NEBU INHALATION SCH ×4 (09:31→19:50)
[2020-09-23] MEDS: SYMBICORT 80-4.5 MCG INHALER INHALATION SCH ×2 (09:31→19:50)
--- NOTE | 2020-09-23 10:29 | P.PN ---
Subjective Progress Note Date: 09/23/20 History of present illness This is an 80-year-old patient of Dr. Leong with a past medical history significant for coronary artery disease past post PCI, proximal atrial fibrillation on long-term anticoagulant and antiarrhythmic, hypertension, hyperlipidemia, valvular disease, COPD, non-small cell lung CA post radiation, diabetes, peripheral vascular disease with previous stenting, history of CVA with left-sided weakness resolved, GERD. She has had episodes of presyncope with bradycardia and hypotension with multiple changes to her blood pressure medications. Patient was most recently hospitalized on September 02 where she presented with palpitations and chest pains related to episodes of atrial fibrillation with RVR. There are no medication changes done at that time. Iain alicea presented to the emergency room today due to low heart rate reading from her pulse ox device. The device registers her heart rate in 20s. Patient states she was feeling dizzy, weakness, nausea and near syncope at that time. The symptoms occurred yesterday and were persistent. Upon arrival to the emergency room her heart rate was found to be in the 50s. Blood pressure 174/66. BUN was 28 and creatinine 0.6. Blood sugar is 117. Influenza A and B RSV and COVID-19 testing were all negative. Chest x-ray revealed a small infiltrate in the right lobe consistent with pneumonia. She was started on antibiotics. Patient's heart rate continues to be in the 40s and 50s with a 2.1 second pause throughout the night. At this time patient is found resting comfortable and better without any complaints of dizziness lightheadedness or syncope. Patient denies any chest pain at this time. She is complaining of right groin pain from previous stent that was placed more than 20 years ago. Patient states that the area is tender to touch and it is intermittent and bothering her today. Echocardiogram from August 06 reveals EF of 55-60% with trace mitral regurgitation and trace tricuspid regurgitation. Bone scan on 09/02 was negative 09/23: Patient's heart rate dropped down into the 30s while she was sleeping. She did have a 2.1 second part. As discussed for her to have a pacemaker however patient is reluctant for the procedure. CAT scan impression: New development cluster of nodules in the right upper lobe suspicious for neoplasm. CT-guided biopsy should be and/or PET scan should be considered. States that she is feeling better today with no nausea dizziness or lightheadedness. Patient does not feel any palpitations. She does not have any chest pain. Patient remains afebrile, heart rate 58, respirations 20, blood pressure 121/61 oxygen 99% on 3 L. Review Of Systems: Constitutional: No fever, no chills, no night sweats. No weight change. No weakness, fatigue or lethargy. No daytime sleepiness. EENT: No headache. No blurred vision or double vision, no loss of vision. No loss of Hearing, no ringing in the ears, no dizziness. No nasal drainage or congestion. No epistaxis. No sore throat. Lungs: No shortness of breath, cough, no sputum production. No wheezing. Cardiovascular: No chest pain, no lower extremity edema. No palpitations. No paroxysmal nocturnal dyspnea. No orthopnea. Reports lightheadedness and dizziness - resolved. Reports syncopal episodes. Abdominal: no abdominal discomfort. No nausea, vomiting. no diarrhea. No constipation. No bloody or tarry stools. no loss of appetite. Genitourinary: No dysuria, increased frequency, urgency. No urinary retention. Musculoskeletal: reports right groin pain, No myalgias. No muscle weakness, no gait dysfunction, no frequent falls. No back pain. No neck pain. Integumentary: No wounds, no lesions. No rash or pruritus. No unusual bruising. No change in hair or nails. Neurologic: No aphasia. No facial droop. No change in mentation. No head injury. No headache. No paralysis. No paresthesia. Psychiatric: No depression. No anxiety. No mood swings. Endocrine: No abnormal blood sugars. No weight change. No excessive sweating or thirst. Social history: Patient was a smoker for 60 years and quit in May 2016. Patient has home O2 at 2 L nasal cannula and nebulizer. She has a walker that she uses as needed. She was in a townhouse with her daughter who lives next-door. Family history: Mother from female cancer. Father's from coronary artery disease. Patient has one sister who from CVA with history of previous TIAs. Patient has one brother that has passed from anemia of undetermined. Patient has one daughter with history of hypertension Physical examination General Appearance: Alert, cooperative, no distress, this is a 80-year-old [facility] female who appears stated age. Neck HEENT: Supple, no lymphadenopathy, no thyroid enlargement, no carotid bruits. Lungs: Clear to auscultation without crackles or wheezes no rhonchi, no deformity. Chest Wall: Chest wall normal expansion with deep inspiration no tenderness and no deformity was found on exam, no costochondral pain or discomfort. Heart: Regular rate and rhythm, S1, S2 normal, no murmur, rub or gallop. Back: Symmetric, no curvature, ROM normal, no CVA tenderness. Abdomen: Soft, non-tender, no rebound or rigidity, no hepatosplenomegaly. Extremities: Extremities normal, atraumatic, no cyanosis or edema. Pulses: 2+ and symmetric. Skin: Skin color, texture, tugor normal, no rashes or lesions. Neurologic: Alert oriented x3 cranial nerves II through XII intact, no motor deficit, no abnormal balance or gait Assessment and plan 1. Systematic bradycardia. Cardiology consult appreciated. Hold beta blockers and rate controlled medications due to bradycardia. Monitor closely for bradycardia and possible need for pacemaker. Awaiting recommendations for pacemaker with cardiology. 2. Lung mass with pneumonia. Patient has history of non-small cell lung cancer status post radiation and follows with Dr. Patel. Chest CT impression noted above. We will stop antibiotics. An consult pulmonology for a new lung mass. Patient did have a negative bone scan on 09/02/2020. 3. Groin pain with history of stent right iliac. Groin ultrasound shows no significant abnormalities 4. Paroxysmal atrial fibrillation. Hold antiarrhythmics and beta javier 5. Hypertension. Continue amlodipine 5 mg by mouth twice a day 6. Hyperlipidemia. Continue atorvastatin 80 mg by mouth at bedtime 7. 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 Continue gabapentin 600 mg by mouth at bedtime, 300 mg by mouth twice a day 8. Coronary artery disease with previous stenting. Plavix 75 mg by mouth 9. Peripheral vascular disease with previous stenting. Plavix 75 mg by mouth 10. Obstructive sleep apnea unable to wear CPAP 11. COPD withaout acute exacerbation. Continue Ventolin nebulizer, Symbicort inhaler 2 puffs, 12. 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 13. Diabetes mellitus type 2. Hold metformin. Accu-Cheks before meals at bedtime with sliding scale coverage 14. History of non-small cell lung cancer status post radiation and follows with Dr. Patel 15. History of CVA with left-sided weakness, resolved. 16. History of DVT postsurgical resolved 17. GERD and GI prophylaxis. Continue Protonix 18. Generalized anxiety and recurrent depression.b continue Paxil 19. DVT prophylaxis. SCDs and YONI hose CODE STATUS: Full code Patient needed to the hassle for minimum 2 nights day Discharge plan: Home is unlikely with home care Impression and plan of care have been directed as dictated by the signing physician. Toya Barron nurse practitioner acting as scribe for signing Objective - Vital Signs Vital signs: Vital Signs Temp 97.9 F 09/23/20 08:00 Pulse 58 L 09/23/20 08:00 Resp 20 09/23/20 08:00 BP 121/61 09/23/20 08:00 Pulse Ox 99 09/23/20 08:00 Intake & Output 09/22/20 09/23/20 09/23/20 18:59 06:59 18:59 Intake Total 1040 Output Total 800 500 Balance 240 -500 Weight 55.6 kg 55.2 kg Intake: IV 100 Piperacillin-Tazobactam 3 100 .375 gm In Sodium Chloride 0.9% 100 ml @ 200 mls/hr IVPB [facility] Rx#:[id number] Oral 940 Output: Urine 800 500 Other: Voiding Method Toilet Toilet # Voids 1 - Labs CBC & Chem 7: 09/23/20 06:50 09/23/20 06:50 Labs: Abnormal Lab Results - Last 24 Hours (Table) 09/22/20 09/22/20 09/22/20 Range/Units 11:44 16:47 20:24 Carbon Dioxide (22-30) mmol/L BUN (7-17) mg/dL Glucose (74-99) mg/dL POC Glucose (mg/dL) 100 H 150 H 131 H (75-99) mg/dL 09/23/20 09/23/20 Range/Units 06:09 06:50 Carbon Dioxide 31 H (22-30) mmol/L BUN 21 H (7-17) mg/dL Glucose 118 H (74-99) mg/dL POC Glucose (mg/dL) 125 H (75-99) mg/dL Microbiology - Last 24 Hours (Table) 09/22/20 01:40 Blood Culture - Preliminary Blood No Growth after 24 hours 09/22/20 01:35 Blood Culture - Preliminary Blood No Growth after 24 hours
[2020-09-23 11:51] LABS: Glucose,Whole Blood 140 mg/dL (75-99)
--- NOTE | 2020-09-23 16:32 | P.CNPUL ---
History of Present Illness Consult date: 09/23/20 Requesting physician: Nohemi Estrada Reason for consult: abnormal CXR/CT Chief complaint: Dizziness, weakness, near syncope History of present illness: This is a very pleasant 80-year-old female patient who follows with Dr. Ivey as her primary care provider. She has a history of CVA/TIA, diabetes mellitus, DVT, fibromyalgia, hyperlipidemia, hypertension, atrial fibrillation anticoagulated with Eliquis, coronary artery disease with previous stent placement, lung cancer status post radiation. She also has history of chronic obstructive pulmonary disease from previous tobacco dependence and is on home oxygen at [address] Koch in our office for the same. FEV1 value around 45% of predicted. She presented here to the emergency room yesterday with complaints of dizziness, weakness, near syncope. Chest x-ray revealed a small infiltrate in the right lower lobe. Computed tomography scan of the chest with contrast was performed. There is a new developing cluster of nodules in the right upper lobe suspicious for neoplasm as compared to previous in December 2019. Consulted for the same. She is seen today on the selective care unit. Currently sitting up in bed. Awake and alert in no acute distress. Maintaining good O2 saturations in the 90s on 2 L/m per nasal cannula. Bradycardic with a rate of 50. Blood culture reveals no growth. White count 7.9. Hemoglobin 11.8. Sodium 140. Potassium 4.3. Creatinine 0.87. Glucose 118. TSH 1.16. On Symbicort and albuterol. Eliquis on hold for possible pacemaker insertion. Review of Systems REVIEW OF SYSTEMS: CONSTITUTIONAL: Denies any recent significant weight loss or weight gain. EYES: Denies change in vision. EARS, NOSE, MOUTH, THROAT: Denies headaches, denies sore throat. CARDIOVASCULAR: Positive for dizziness, lightheadedness, near syncope. RESPIRATORY: Denies shortness of breath, cough, congestion or hemoptysis. GASTROINTESTINAL: Denies change in appetite, denies abdominal pain GENITOURINARY: Denies hematuria, denies infections. MUSKULOSKELETAL: Denies pain, denies swelling. INTEGUMENTARY: Denies rash, denies eczema. NEUROLOGICAL: Denies recent memory loss, no recent seizure activity. PSYCHIATRIC: Denies anxiety, denies depression. HEMATOLOGIC/LYMPHATIC: Denies anemia, denies enlarged lymph nodes. Past Medical History Past Medical History: Atrial Fibrillation, Cancer, Heart Failure, COPD, CVA/TIA, Diabetes Mellitus, Deep Vein Thrombosis (DVT), Fibromyalgia, GERD/Reflux, Hyperlipidemia, Hypertension, Osteoarthritis (OA), Pneumonia, Sleep Apnea/CPAP/BIPAP, Vascular Disorder Additional Past Medical History / Comment(s): back pain , lung cancer-radiation opnly, HOME 02 2 LITERS N/C, BLOOD CLOT AFTER SX, CVA LT SIDE AFFECTED SINCE RESOLVED, HIATAL HERNIA. SHINGLES 30 YEARS AGO, DOES'NT USE CPAP MACHINE.in past for short period of time took oral meds for dm-then taken off meds-pt stated not considered diabetic now but occ will check bs., macular degeneration.past broken rt leg and lt wrist. Raynauds. Pt currently has 3 fractured ribs on the right that she has "had for years and will not heal". History of Any Multi-Drug Resistant Organisms: MRSA Date of last positivie culture/infection: 09/25/16 MDRO Source:: BRONCH WASH Past Surgical History: Cholecystectomy, Heart Catheterization With Stent, Orthopedic Surgery Additional Past Surgical History / Comment(s): rt leg repaired after break-has pins, lt wrist-plate and screws. lung bx, stents tung groins. Past Anesthesia/Blood Transfusion Reactions: Family History of Problems w/ Anesthesia Additional Past Anesthesia/Blood Transfusion Reaction / Comment(s): daughter has diff waking after aa Date of Last Stent Placement:: unk Past Psychological History: Depression Additional Psychological History / Comment(s[place]either daughters or sister takes her places. has home 02, nebulizer. . Ongoing tobacco smoker stopping just may 2016. Has a history of lung cancer with radiation. Smoking Status: Former smoker Past Alcohol Use History: Rare Additional Past Alcohol Use History / Comment(s): started smopking at age 14(1956), quit 2016 Past Drug Use History: None Reported - Past Family History Father Family Medical History: Congestive Heart Failure (CHF), COPD Additional Family Medical History / Comment(s): emphysema Mother Family Medical History: Cancer Medications and Allergies Home Medications Medication Instructions Recorded Confirmed Type Pantoprazole Sodium [Protonix] 40 mg PO QAM 09/23/16 09/22/20 History Apixaban [Eliquis] 2.5 mg PO BID tablet 10/02/16 09/22/20 Rx Fluticasone/Umeclidin/Vilanter 1 puff INHALATION RT-DAILY 04/19/20 09/22/20 History [Trelegy Ellipta 100-62.5-25] Nitroglycerin Sl Tabs [Nitrostat] 0.4 mg SUBLINGUAL Q5M PRN #20 tab 04/21/20 09/22/20 Rx ALPRAZolam [Xanax] 0.25 mg PO Q8H PRN 07/12/20 09/22/20 History Atorvastatin [Lipitor] 80 mg PO HS 07/12/20 09/22/20 History Cholecalciferol [Vitamin D3 (25 1,000 unit PO W/SUPPER 07/12/20 09/22/20 History Mcg = 1000 Iu)] Gabapentin 300 mg PO BID@0800,1200 07/12/20 09/22/20 History Gabapentin 600 mg PO HS 07/12/20 09/22/20 History L.acidoph,Paracasei, B.lactis 1 cap PO DAILY 07/12/20 09/22/20 History [Probiotic] PARoxetine [Paxil] 20 mg PO DAILY 07/12/20 09/22/20 History metFORMIN HCL [Glucophage] 500 mg PO DAILY 07/12/20 09/22/20 History amLODIPine [Norvasc] 5 mg PO BID #60 tab 07/13/20 09/22/20 Rx Albuterol Sulfate [Proventil Hfa] 2 puff INHALATION RT-Q6H PRN 08/04/20 09/22/20 History Cyanocobalamin (Vitamin B-12) 1,000 mcg PO DAILY 08/04/20 09/22/20 History [Vitamin B-12] Docusate [Colace] 100 mg PO DAILY PRN 08/04/20 09/22/20 History Lidocaine 5% Patch [Lidoderm 5% 1 patch TOPICAL DAILY PRN 08/04/20 09/22/20 History Patch] Clopidogrel [Plavix] 75 mg PO DAILY #30 tab 08/10/20 09/22/20 Rx Metoprolol Succinate (ER) [Toprol 25 mg PO BID 09/22/20 09/22/20 History Xl] busPIRone HCl [Buspar] 10 mg PO TID 09/22/20 09/22/20 History Allergies Allergy/AdvReac Type Severity Reaction Status Date / Time No Known Allergies Allergy Verified 09/22/20 09:33 Physical Exam Vitals: Vital Signs Temp Pulse Pulse Resp BP Pulse Ox 09/23/20 16:03 50 L 09/23/20 15:53 50 L 09/23/20 12:45 55 L 09/23/20 12:35 54 L 09/23/20 12:00 98.6 F 64 20 117/55 98 09/23/20 08:00 97.9 F 58 L 20 121/61 99 09/23/20 04:50 97.9 F 50 L 16 132/63 100 09/23/20 00:55 97.9 F 58 L 16 110/76 95 09/22/20 21:02 56 L 09/22/20 20:48 97.5 F L 56 L 56 L 17 133/60 97 09/22/20 16:20 55 L Intake and Output 09/23/20 09/23/20 09/23/20 06:59 14:59 22:59 Intake Total 480 100 Output Total 500 900 Balance -500 480 -800 Intake: Intake, IV Titration 100 Amount Piperacillin-Tazobactam 3 100 .375 gm In Sodium Chloride 0.9% 100 ml @ 25 mls/hr IVPB Q8HR [facility] Rx# :[id number] Oral 480 Output: Urine 500 900 Other: Voiding Method Toilet # Voids 1 Weight 55.2 kg GENERAL EXAM: Alert, active, pleasant 80-year-old female patient, on 2 L nasal cannula, comfortable in no apparent distress. HEAD: Normocephalic. EYES: Normal reaction of pupils, equal size. NOSE: Clear with pink turbinates. THROAT: No erythema or exudates. NECK: No masses, no JVD. CHEST: No chest wall deformity. LUNGS: Equal air entry with no crackles, wheeze, rhonchi or dullness. CVS: S1 and S2 normal with no audible murmur, irregular rhythm. Bradycardic ABDOMEN: No hepatosplenomegaly, normal bowel sounds, no guarding or rigidity. SPINE: No scoliosis or deformity SKIN: No rashes CENTRAL NERVOUS SYSTEM: No focal deficits, tone is normal in all 4 extremities. EXTREMITIES: There is no peripheral edema. No clubbing, no cyanosis. Peripheral pulses are intact. Results - Laboratory Findings CBC and BMP: 09/23/20 06:50 09/23/20 06:50 PT/INR, D-dimer PT 10.5 sec (9.0-12.0) 09/21/20 23:48 INR 1.0 (<1.2) 09/21/20 23:48 Abnormal lab findings: Abnormal Labs 09/21/20 09/22/20 09/22/20 23:48 02:57 06:32 Sodium 136 L Carbon Dioxide BUN 28 H Glucose 117 H POC Glucose (mg/dL) 112 H 183 H 09/22/20 09/22/20 09/22/20 11:44 16:47 20:24 Sodium Carbon Dioxide BUN Glucose POC Glucose (mg/dL) 100 H 150 H 131 H 09/23/20 09/23/20 09/23/20 06:09 06:50 11:48 Sodium Carbon Dioxide 31 H BUN 21 H Glucose 118 H POC Glucose (mg/dL) 125 H 140 H - Diagnostic Findings Chest x-ray: image reviewed CT scan - chest: image reviewed Assessment and Plan Assessment: 1 Near syncopal episode suspect secondary to bradycardia 2 Atrial fibrillation with bradycardia, anticoagulated with Eliquis 3 Coronary artery disease with previous stent placement 4 Chronic obstructive pulmonary disease, FEV1 value of 45% of predicted, on home O2 5 History of chronic tobacco dependence 6 History of lung cancer status post radiation in 2011 7 New history of nodular densities measuring approximately 1 cm in size, possible mass versus scar 8 CVA/TIA 9 Diabetes mellitus 10 History of DVT 11 Fibromyalgia 12 Hypertension 13 Hyperlipidemia Plan: The patient was seen and evaluated by Dr. Pino Chest x-ray, labs and CAT scan reviewed Recommend outpatient PET scan No plans for intervention while inpatient Continue Symbicort and albuterol We'll continue to follow and make further recommendations based on her clinical status. I, the cosigning physician, performed a history & physical examination of the patient. Lungs sounds are clear. Maintaining good O2 saturations in the 90s on 2 L/m per nasal cannula. I discussed the assessment and plan of care with my nurse practitioner, Gail Roper. I attest to the above consultation as dictated by her. Time with Patient: Greater than 30
[2020-09-23 17:02] LABS: Glucose,Whole Blood 154 mg/dL (75-99)
[2020-09-23] MEDS: CHOLECALCIFEROL 25 MCG (1000 IU) TABLET PO SCH (17:14)
--- NOTE | 2020-09-23 19:30 | P.PN ---
Subjective Progress Note Date: 09/23/20 This patient with history of coronary artery disease, paroxysmal atrial fibrillation, history of lung cancer who came to the hospital with complaints of near syncope and bradycardia. Her heart rates in the 20s. Patient apparently had admission for A. fib with RVR. Because of tachybradycardia syndrome, a discussion was held by Dr. Rodriguez with the patient and family regarding possible pacemaker. Apparently, discussions were made with elective horse trekking guide for possible pacemaker and also ablation. Since admission patient has been off beta javier. Her heart rate remained in the 50s. Otherwise patient is critically stable. Patient also has some suspicious recurrence of lung cancer. Being seen by pulmonology. Otherwise patient is currently stable. Tomorrow we'll discuss with Dr. Rodriguez regarding ablation and possible pacemaker insertion. Patient is advised to stay nothing by mouth after midnight Objective - Vital Signs Vital signs: Vital Signs Temp 98.2 F 09/23/20 16:32 Pulse 67 09/23/20 16:32 Resp 20 09/23/20 16:32 BP 153/64 09/23/20 16:32 Pulse Ox 95 09/23/20 16:32 Intake & Output 09/23/20 09/23/20 09/24/20 06:59 18:59 06:59 Intake Total 1060 Output Total 500 1300 Balance -500 -240 Weight 55.2 kg Intake: Intake, IV Titration 100 Amount Piperacillin-Tazobactam 3 100 .375 gm In Sodium Chloride 0.9% 100 ml @ 25 mls/hr IVPB Q8HR [facility] Rx# :[id number] Oral 960 Output: Urine 500 1300 Other: Voiding Method Toilet # Voids 1 - Exam GENERAL EXAM: Patient is alert and oriented and doesn't appear to be in any acute distress HEENT: Normocephalic. Normal reaction of pupils, equal size, normal range of extraocular motion. No erythema or exudates in the throat. NECK: No masses, no nuchal rigidity. CHEST: No chest wall deformity. LUNGS: Equal air entry with no crackles or wheeze. HEART: S1 and S2 normal with no audible mumurs or gallops. Regular rhythm, femorals equal on both sides.. ABDOMEN: No hepatosplenomegaly, normal bowel sounds, no guarding or rigidity. SKIN: No rashes CENTRAL NERVOUS SYSTEM: No focal deficits. EXTREMITIES: No cyanosis, clubbing or edema. - Labs CBC & Chem 7: 09/23/20 06:50 09/23/20 06:50 Labs: Abnormal Lab Results - Last 24 Hours (Table) 09/22/20 09/23/20 09/23/20 Range/Units 20:24 06:09 06:50 Carbon Dioxide 31 H (22-30) mmol/L BUN 21 H (7-17) mg/dL Glucose 118 H (74-99) mg/dL POC Glucose (mg/dL) 131 H 125 H (75-99) mg/dL 09/23/20 09/23/20 Range/Units 11:48 17:01 Carbon Dioxide (22-30) mmol/L BUN (7-17) mg/dL Glucose (74-99) mg/dL POC Glucose (mg/dL) 140 H 154 H (75-99) mg/dL Microbiology - Last 24 Hours (Table) 09/22/20 01:40 Blood Culture - Preliminary Blood No Growth after 24 hours 09/22/20 01:35 Blood Culture - Preliminary Blood No Growth after 24 hours Assessment and Plan (1) Sick sinus syndrome Current Visit: Yes Status: Acute Code(s): I49.5 - SICK SINUS SYNDROME SNOMED Code(s): 93653726 (2) Symptomatic bradycardia Current Visit: Yes Status: Acute Code(s): R00.1 - BRADYCARDIA, UNSPECIFIED SNOMED Code(s): 00120835 (3) Paroxysmal a-fib Current Visit: No Status: Acute Code(s): I48.0 - PAROXYSMAL ATRIAL FIBRILLATION SNOMED Code(s): 623504999 (4) CAD (coronary artery disease) Current Visit: No Status: Acute Code(s): I25.10 - ATHSCL HEART DISEASE OF [place] CORONARY ARTERY W/O ANG PCTRS SNOMED Code(s): 45911973 (5) Lung cancer Current Visit: Yes Status: Acute Code(s): C34.90 - MALIGNANT NEOPLASM OF UNSP PART OF UNSP BRONCHUS OR LUNG SNOMED Code(s): 206846282 Plan: We'll keep patient nothing by mouth. Will discuss with Dr. Rodriguez and Dr. Hummel regarding further management. Probably patient needs a pacemaker, plus or minus ablation
[2020-09-23] MEDS: ALBUTEROL NEBULIZED 2.5 MG/3 ML INHALATION PRN (19:50)
[2020-09-23 20:30] LABS: Glucose,Whole Blood 132 mg/dL (75-99)
[2020-09-23] MEDS ORDERED: AZITHROMYCIN 500 MG in SODIUM CHLORIDE 0.9% 250 ML IVPB SCH (21:00)
[2020-09-23] MEDS: ATORVASTATIN 80 MG TAB PO SCH (21:25)
[2020-09-24] MEDS: MORPHINE SULFATE 2 MG/ML SYRINGE IV PRN (01:08)
[2020-09-24 06:41] LABS: Glucose,Whole Blood 113 mg/dL (75-99)
[2020-09-24] MEDS: INSULIN ASPART (NovoLOG) 100 UNIT/ML VIAL SQ SCH ×4 (06:42→21:43)
[2020-09-24] MEDS: ALBUTEROL NEBULIZED 2.5 MG/3 ML INHALATION PRN (07:13)
[2020-09-24] MEDS: SYMBICORT 80-4.5 MCG INHALER INHALATION SCH ×2 (07:14→21:20)
[2020-09-24] MEDS: IPRATROPIUM 0.5 MG/2.5 ML NEBU INHALATION SCH ×4 (07:14→21:21)
[2020-09-24] MEDS: GABAPENTIN 300 MG CAP PO SCH ×3 (10:34→21:43)
[2020-09-24] MEDS: PANTOPRAZOLE 40 MG TABLET PO SCH (10:34)
[2020-09-24] MEDS: amLODIPine 5 MG TAB PO SCH ×2 (10:34→21:43)
[2020-09-24] MEDS: PARoxetine 20 MG TAB PO SCH (10:34)
[2020-09-24] MEDS: CLOPIDOGREL 75 MG TAB PO SCH (10:34)
[2020-09-24] MEDS: CYANOCOBALAMIN 500 MCG TAB PO SCH (10:34)
--- NOTE | 2020-09-24 11:35 | P.PN ---
Subjective Progress Note Date: 09/24/20 History of present illness This is an 80-year-old patient of Dr. Leong with a past medical history significant for coronary artery disease past post PCI, proximal atrial fibrillation on long-term anticoagulant and antiarrhythmic, hypertension, hyperlipidemia, valvular disease, COPD, non-small cell lung CA post radiation, diabetes, peripheral vascular disease with previous stenting, history of CVA with left-sided weakness resolved, GERD. She has had episodes of presyncope wit h bradycardia and hypotension with multiple changes to her blood pressure medications. Patient was most recently hospitalized on September 02 where she presented with palpitations and chest pains related to episodes of atrial fibrillation with RVR. There are no medication changes done at that time. Devin bustillo presented to the emergency room today due to low heart rate reading from her pulse ox device. The device registers her heart rate in 20s. Patient states she was feeling dizzy, weakness, nausea and near syncope at that time. The symptoms occurred yesterday and were persistent. Upon arrival to the emergency room her heart rate was found to be in the 50s. Blood pressure 174/66. BUN was 28 and creatinine 0.6. Blood sugar is 117. Influenza A and B RSV and COVID-19 testing were all negative. Chest x-ray revealed a small infiltrate in the right lobe consistent with pneumonia. She was started on antibiotics. Patient's heart rate continues to be in the 40s and 50s with a 2.1 second pause throughout the night. At this time patient is found resting comfortable and better without any complaints of dizziness lightheadedness or syncope. Patient denies any chest pain at this time. She is complaining of right groin pain from previous stent that was placed more than 20 years ago. Patient states that the area is tender to touch and it is intermittent and bothering her today. Echocardiogram from August 06 reveals EF of 55-60% with trace mitral regurgitation and trace tricuspid regurgitation. Bone scan on 09/02 was negative 09/23: Patient's heart rate dropped down into the 30s while she was sleeping. She did have a 2.1 second part. As discussed for her to have a pacemaker however patient is reluctant for the procedure. CAT scan impression: New development cluster of nodules in the right upper lobe suspicious for neoplasm. CT-guided biopsy should be and/or PET scan should be considered. States that she is feeling better today with no nausea dizziness or lightheadedness. Patient does not feel any palpitations. She does not have any chest pain. Patient remains afebrile, heart rate 58, respirations 20, blood pressure 121/61 oxygen 99% on 3 L. 09/24: Patient has been seen by pulmonary medicine with plan for follow-up for PET scan as an outpatient. Patient is currently nothing by mouth waiting for decision from cardiology regarding pacemaker implantation. Patient denies any complaints today. No chest pain or shortness of breath. No lightheadedness or dizziness. Heart rate has been running in the 50s and 60s. Blood pressure 134/64, pulse ox 90% on 2 L nasal cannula. Patient has been afebrile. Blood sugar 113. Review Of Systems: Constitutional: No fever, no chills, no night sweats. No weight change. No weakness, fatigue or lethargy. No daytime sleepiness. EENT: No headache. No blurred vision or double vision, no loss of vision. No loss of Hearing, no ringing in the ears, no dizziness. No nasal drainage or congestion. No epistaxis. No sore throat. Lungs: No shortness of breath, cough, no sputum production. No wheezing. Cardiovascular: No chest pain, no lower extremity edema. No palpitations. No paroxysmal nocturnal dyspnea. No orthopnea. Reports lightheadedness and dizziness - resolved. Reports syncopal episodes. Abdominal: no abdominal discomfort. No nausea, vomiting. no diarrhea. No constipation. No bloody or tarry stools. no loss of appetite. Genitourinary: No dysuria, increased frequency, urgency. No urinary retention. Musculoskeletal: reports right groin pain, No myalgias. No muscle weakness, no gait dysfunction, no frequent falls. No back pain. No neck pain. Integumentary: No wounds, no lesions. No rash or pruritus. No unusual bruising. No change in hair or nails. Neurologic: No aphasia. No facial droop. No change in mentation. No head injury. No headache. No paralysis. No paresthesia. Psychiatric: No depression. No anxiety. Endocrine: No abnormal blood sugars. No weight change. Physical examination General Appearance: Alert, cooperative, no distress, this is a 80-year-old pleasant female who appears stated age. Neck HEENT: Supple, no lymphadenopathy, no thyroid enlargement, no carotid bruits. Lungs: Clear to auscultation without crackles or wheezes no rhonchi, no deformity. Chest Wall: Chest wall normal expansion with deep inspiration no tenderness and no deformity was found on exam, no costochondral pain or discomfort. Heart: Regular rate and rhythm, S1, S2 normal, no murmur, rub or gallop. Back: Symmetric, no curvature, ROM normal, no CVA tenderness. Abdomen: Soft, non-tender, no rebound or rigidity, no hepatosplenomegaly. Extremities: Extremities normal, atraumatic, no cyanosis or edema. Pulses: 2+ and symmetric. Skin: Skin color, texture, tugor normal, no rashes or lesions. Neurologic: Alert oriented x3 cranial nerves II through XII intact, no motor deficit, no abnormal balance or gait Assessment and plan 1. Systematic bradycardia. Cardiology consult appreciated. Hold beta blockers and rate controlled medications due to bradycardia. Monitor closely for bradycardia and possible need for pacemaker. Awaiting recommendations for pacemaker with cardiology. 2. Lung mass with pneumonia. Patient has history of non-small cell lung cancer status post radiation and follows with Dr. Patel. Pulmonary medicine consult appreciated. Patient to follow-up for outpatient PET scan 3. Groin pain with history of stent right iliac. Groin ultrasound shows no significant abnormalities 4. Paroxysmal atrial fibrillation. Hold antiarrhythmics and beta javier 5. Hypertension. Continue amlodipine 5 mg by mouth twice a day 6. Hyperlipidemia. Continue atorvastatin 80 mg by mouth at bedtime 7. 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 Continue gabapent in 600 mg by mouth at bedtime, 300 mg by mouth twice a day 8. Coronary artery disease with previous stenting. Plavix 75 mg by mouth 9. Peripheral vascular disease with previous stenting. Plavix 75 mg by mouth 10. Obstructive sleep apnea unable to wear CPAP 11. COPD withaout acute exacerbation. Continue Ventolin nebulizer, Symbicort inhaler 2 puffs, 12. 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 13. Diabetes mellitus type 2. Hold metformin. Accu-Cheks before meals at bedtime with sliding scale coverage 14. History of non-small cell lung cancer status post radiation and follows with Dr. Patel 15. History of CVA with left-sided weakness, resolved. 16. History of DVT postsurgical resolved 17. GERD and GI prophylaxis. Continue Protonix 18. Generalized anxiety and recurrent depression.b continue Paxil 19. DVT prophylaxis. SCDs and YONI hose CODE STATUS: Full code Discharge plan: Home is unlikely with home care Impression and plan of care have been directed as dictated by the signing physician. Consuelo Gould nurse practitioner acting as scribe for signing Objective - Vital Signs Vital signs: Vital Signs Temp 98.1 F 09/24/20 04:30 Pulse 62 09/24/20 07:25 Resp 16 09/24/20 07:25 BP 125/61 09/24/20 04:30 Pulse Ox 97 09/24/20 07:15 Intake & Output 09/23/20 09/24/20 09/24/20 18:59 06:59 18:59 Intake Total 1060 Output Total 1300 300 Balance -240 -300 Weight 56 kg Intake: Intake, IV Titration 100 Amount Piperacillin-Tazobactam 3 100 .375 gm In Sodium Chloride 0.9% 100 ml @ 25 mls/hr IVPB Q8HR [facility] Rx# :[id number] Oral 960 Output: Urine 1300 300 Other: Voiding Method Toilet # Voids 1 - Labs CBC & Chem 7: 09/23/20 06:50 09/23/20 06:50 Labs: Abnormal Lab Results - Last 24 Hours (Table) 09/23/20 09/23/20 09/23/20 Range/Units 11:48 17:01 20:10 POC Glucose (mg/dL) 140 H 154 H 132 H (75-99) mg/dL 09/24/20 Range/Units 06:23 POC Glucose (mg/dL) 113 H (75-99) mg/dL Microbiology - Last 24 Hours (Table) 09/22/20 01:40 Blood Culture - Preliminary Blood No Growth after 48 hours 09/22/20 01:35 Blood Culture - Preliminary Blood No Growth after 48 hours
[2020-09-24] MEDS ORDERED: HEPARIN SODIUM 1,000 UN/ML (10ML VL) IV PRN (11:42)
[2020-09-24 11:43] LABS: Glucose,Whole Blood 174 mg/dL (75-99)
[2020-09-24] MEDS ORDERED: HEPARIN SOD,PORK IN 0.45% NACL 25,000 UNIT in 0.45% NACL 1 250ML.BAG IV SCH (11:45)
[2020-09-24] MEDS: IOPAMIDOL CONTRAST (ORAL USE) VIAL PO PRN ×2 (13:05→14:01)
[2020-09-24] MEDS: SODIUM CHLORIDE 0.9% 1,000 ML IV SCH (13:09)
[2020-09-24 13:28] LABS: INR 0.9 (<1.2)
[2020-09-24 13:29] LABS: Partial Thromboplastin Time 20.2 sec (22.0-30.0)
--- NOTE | 2020-09-24 13:43 | P.PN ---
Subjective Progress Note Date: 09/24/20 This is a very pleasant 80-year-old female patient who follows with Dr. Ivey as her primary care provider. She has a history of CVA/TIA, diabetes mellitus, DVT, fibromyalgia, hyperlipidemia, hypertension, atrial fibrillation anticoagulated with Eliquis, coronary artery disease with previous stent placement, lung cancer status post radiation. She also has history of chronic obstructive pulmonary disease from previous tobacco dependence and is on home oxygen at [address] Koch in our office for the same. FEV1 value around 45% of predicted. She presented here to the emergency room yesterday with complaints of dizziness, weakness, near syncope. Chest x-ray revealed a small infiltrate in the right lower lobe. Computed tomography scan of the chest with contrast was performed. There is a new developing cluster of nodules in the right upper lobe suspicious for neoplasm as compared to previous in December 2019. Consulted for the same. She is seen today on the selective care unit. Currently sitting up in bed. Awake and alert in no acute distress. Maintaining good O2 saturations in the 90s on 2 L/m per nasal cannula. Bradycardic with a rate of 50. Blood culture reveals no growth. White count 7.9. Hemoglobin 11.8. Sodium 140. Potassium 4.3. Creatinine 0.87. Glucose 118. TSH 1.16. On Symbicort and albuterol. Eliquis on hold for possible pacemaker insertion. On today's evaluation of 09/23/2020, I'm seeing this patient for a follow-up. The patient has no specific complaints. Her heart rate has improved and there is no significant bradycardia. Were not sure if cardiology still planning to undergo pacemaker insertion on this patient. Meanwhile, I reviewed the CAT scan of the chest on this patient. Note that the patient has COPD. The patient also has a right lower lobe pulmonary lesion that was confirmed to be a malignancy and the patient was treated with radiation therapy. Most recent CAT scan at shown some changes in the scar and in the area of the right lower lobe nodule. I think this is something that can be followed up on outpatient basis. There is a questionable area of new development of a cluster of nodules in the right upper lobe suspicious for neoplasm. The dense scar in the right lower lobe essentially unchanged. There is no mediastinal lymphadenopathy. A PET scan will be needed and the biopsy may need to be considered if the PET scan confirms abnormalities. Otherwise, no syncope, no chest pain, no significant shortness of breath, currently on 2 L of oxygen by nasal cannula. No hypoglycemia. No other significant events overnight. Objective - Vital Signs Vital signs: Vital Signs Temp 98.0 F 09/24/20 10:00 Pulse 58 L 09/24/20 11:27 Resp 16 09/24/20 11:27 BP 134/64 09/24/20 10:00 Pulse Ox 98 09/24/20 10:00 Intake & Output 09/23/20 09/24/20 09/24/20 18:59 06:59 18:59 Intake Total 1060 Output Total 1300 300 Balance -240 -300 Weight 56 kg Intake: Intake, IV Titration 100 Amount Piperacillin-Tazobactam 3 100 .375 gm In Sodium Chloride 0.9% 100 ml @ 25 mls/hr IVPB Q8HR [facility] Rx# :[id number] Oral 960 Output: Urine 1300 300 Other: Voiding Method Toilet Toilet # Voids 1 - Exam General Appearance: Alert, cooperative, no distress, this is a 80-year-old pleasant female who appears stated age. Neck HEENT: Supple, no lymphadenopathy, no thyroid enlargement, no carotid bruits. Lungs: Clear to auscultation without crackles or wheezes no rhonchi, no deformity. Chest Wall: Chest wall normal expansion with deep inspiration no tenderness and no deformity was found on exam, no costochondral pain or discomfort. Heart: Regular rate and rhythm, S1, S2 normal, no murmur, rub or gallop. Back: Symmetric, no curvature, ROM normal, no CVA tenderness. Abdomen: Soft, non-tender, no rebound or rigidity, no hepatosplenomegaly. Extremities: Extremities normal, atraumatic, no cyanosis or edema. Pulses: 2+ and symmetric. Skin: Skin color, texture, tugor normal, no rashes or lesions. Neurologic: Alert oriented x3 cranial nerves II through XII intact, no motor deficit, no abnormal balance or gait - Labs CBC & Chem 7: 09/23/20 06:50 09/23/20 06:50 Labs: Abnormal Lab Results - Last 24 Hours (Table) 09/23/20 09/23/20 09/24/20 Range/Units 17:01 20:10 06:23 APTT (22.0-30.0) sec POC Glucose (mg/dL) 154 H 132 H 113 H (75-99) mg/dL 09/24/20 09/24/20 Range/Units 11:32 11:50 APTT 20.2 L (22.0-30.0) sec POC Glucose (mg/dL) 174 H (75-99) mg/dL Microbiology - Last 24 Hours (Table) 09/22/20 01:40 Blood Culture - Preliminary Blood No Growth after 48 hours 09/22/20 01:35 Blood Culture - Preliminary Blood No Growth after 48 hours Assessment and Plan Plan: 1 Near syncopal episode suspect secondary to bradycardia, improved, possible pacemaker insertion by cardiology. 2 Atrial fibrillation with bradycardia, anticoagulated with Eliquis 3 Coronary artery disease with previous stent placement 4 Chronic obstructive pulmonary disease, FEV1 value of 45% of predicted, on home O2 5 History of chronic tobacco dependence 6 History of lung cancer status post radiation in 2011 7 New history of nodular densities in the right upper lobe measuring approximately 1 cm in size, and a stable scar in the right lower lobe. Consider cancer progression. The patient has received radiation therapy to a malignant lesion in the right lower lobe many years back. 8 CVA/TIA 9 Diabetes mellitus 10 History of DVT 11 Fibromyalgia 12 Hypertension 13 Hyperlipidemia Plan: In regards to the possibility of lung cancer, the patient will need an outpatient PET scan and biopsy that the PET scan confirms abnormalities. No need for immediate biopsy at this point in time. Monitor cardiac rhythm Monitor heart rate Possible pacemaker insertion Continue Symbicort and albuterol home medications have been resumed We'll continue to follow and make further recommendations based on her clinical status.
--- NOTE | 2020-09-24 15:04 | CT ---
EXAMINATION TYPE: CT abdomen pelvis w con DATE OF EXAM: 09/24/2020 HISTORY: RUQ pain, history of lung cancer. CT DLP: 660.4mGycm Automated Exposure Control for Dose Reduction was Utilized. CONTRAST: CT scan of the abdomen and pelvis is performed with IV Contrast, patient injected with 100 mL of Isov ue 300. COMPARISON: PET CT November 19, 2013 FINDINGS: LUNG BASES: Small to tiny right greater than left pleural effusion or fluid collections with associat ed compressive and linear atelectasis. LIVER/GB: Cholecystectomy clips. No suspicious intrahepatic or extra hepatic biliary dilatation. PANCREAS: No significant abnormality is seen. SPLEEN: No significant abnormality is seen. ADRENALS: No significant abnormality is seen. KIDNEYS: Symmetric cortical medullary uptake and excretion without hydronephrosis seen bilaterally. S cattered simple appearing thin-walled cysts throughout both kidneys. Mildly distended bladder without intraluminal calculus. BOWEL: The oral contrast does not reach level of the terminal ileum making evaluation of distal bowel slightly suboptimal. Mild to moderate diffuse fecal prominence throughout the colon. Diverticula in the left and sigmoid colon. No CT evidence for acute diverticulitis. No suspicious small or large bow el dilatation. UTERUS/ADNEXA: Anteverted uterus with small calcifications could reflect small calcified fibroids. LYMPH NODES: No greater than 1cm abdominal or pelvic lymph nodes are appreciated. OSSEOUS STRUCTURES: Grade 1 anterolisthesis L4 on L5. Moderate disc space narrowing with vacuum disc phenomenon at this level. Posterior disc herniation L4-L5 and L5-S1 levels effaces the anterior theca l sac. Moderate to severe axial joint space loss with moderate spurring in both hips. OTHER: Moderate to severe calcified plaque of the aorta extends into branch vessels. IMPRESSION: Mild to moderate diffuse colonic fecal stasis. No bowel obstruction. No acute findings ot herwise seen to account for patient's right-sided pain.
--- NOTE | 2020-09-24 15:15 | P.PN ---
Subjective HISTORY OF PRESENTING ILLNESS This is a pleasant 80-year-old female past medical history significant for coronary artery disease status post prior stenting, paroxysmal atrial fibrillation (on eliquis), hypertension, dyslipidemia, carotid artery disease, mild to moderate mitral regurgitation, sick sinus syndrome heart rate was in the 30s and previously inpatient, non-small cell lung CA post radiation. She follows in the office with Dr. Lance. We have been asked to see in consultation for symptomatic bradycardia. Patient was most recently hospitalized on September 02 where she presented with palpitations and chest pains related to episodes of atrial fibrillation with RVR. Patient has been seen by pulmonary medicine with plan for follow-up for PET scan as an outpatient Most recent echocardiogram F 55-60%, trace mitral regurgitation and trace tricuspid regurgitation 09/24/20: Patient is seen and examined at bedside, no acute distress. Telemetry reviewed patient in sinus mechanism heart rate 50- 60s. Currently being maintained on am lodipine 5 mg twice a day, mg nightly , Plavix 75 mg daily.. PHYSICAL EXAMINATION Blood pressure 134/64 heart rate 50-60s afebrile and maintaining oxygen saturation 98% on rooma ir CONSTITUTIONAL: No apparent distress. HEENT: Head is normocephalic. No JVD. No carotid bruit. CHEST EXAMINATION: Lungs are clear to auscultation. HEART EXAMINATION: Regular rate and rhythm. S1, S2 heard. No murmurs, gallops or rub. ABDOMEN: Soft, nontender. Positive bowel sounds. EXTREMITIES: 2+ peripheral pulses, no lower extremity edema and no calf tenderness. NEUROLOGIC EXAMINATION: Patient is awake, alert and oriented x3. ASSESSMENT Symptomatic bradycardia Sick sinus syndrome Hypertension Dyslipidemia Coronary artery disease Paroxysmal atrial fibrillationon Eliquis Lung cancer PLAN Plan for dual chamber pacemaker with Dr. Martin tomorrow morning I have discussed the risks, benefits and alternative therapies for the above- mentioned procedure and for both sedation/analgesia as well as necessary blood product administration, if indicated, as they pertain to this patient. The patient has indicated understanding and acceptance of the risks and procedures discussed. Questions have been answered appropriately and he is agreeable to move forward with the above-stated procedure. We will start heparin drip, continue to hold Eliquis Continue to hold beta blockers Further recommendations pending clinical course Nurse Practitioner note has been reviewed, I agree with a documented findings and plan of care. Patient was seen and examined. Objective - Vital Signs Vital signs: Vital Signs Temp 98.0 F 09/24/20 10:00 Pulse 58 L 09/24/20 11:27 Resp 16 09/24/20 11:27 BP 134/64 09/24/20 10:00 Pulse Ox 98 09/24/20 10:00 Intake & Output 09/23/20 09/24/20 09/24/20 18:59 06:59 18:59 Intake Total 1060 240 Output Total 1300 300 Balance -240 -300 240 Weight 56 kg Intake: Intake, IV Titration 100 Amount Piperacillin-Tazobactam 3 100 .375 gm In Sodium Chloride 0.9% 100 ml @ 25 mls/hr IVPB Q8HR [facility] Rx# :[id number] Oral 960 240 Output: Urine 1300 300 Other: Voiding Method Toilet Toilet # Voids 1 - Labs CBC & Chem 7: 09/23/20 06:50 09/23/20 06:50 Labs: Abnormal Lab Results - Last 24 Hours (Table) 09/23/20 09/23/20 09/24/20 Range/Units 17:01 20:10 06:23 APTT (22.0-30.0) sec POC Glucose (mg/dL) 154 H 132 H 113 H (75-99) mg/dL 09/24/20 09/24/20 Range/Units 11:32 11:50 APTT 20.2 L (22.0-30.0) sec POC Glucose (mg/dL) 174 H (75-99) mg/dL Microbiology - Last 24 Hours (Table) 09/22/20 01:40 Blood Culture - Preliminary Blood No Growth after 48 hours 09/22/20 01:35 Blood Culture - Preliminary Blood No Growth after 48 hours
[2020-09-24 17:05] LABS: Glucose,Whole Blood 217 mg/dL (75-99)
[2020-09-24] MEDS: CHOLECALCIFEROL 25 MCG (1000 IU) TABLET PO SCH (17:29)
[2020-09-24 20:37] LABS: Glucose,Whole Blood 152 mg/dL (75-99)
[2020-09-24] MEDS: ATORVASTATIN 80 MG TAB PO SCH (21:43)
[2020-09-24] MEDS: DOCUSATE 100 MG CAP PO PRN (21:43)
[2020-09-25] MEDS: SODIUM CHLORIDE 0.9% 1,000 ML IV SCH ×3 (00:21→17:43)
[2020-09-25 02:42] LABS: Prothrombin Time 10.5 sec (9.0-12.0)
[2020-09-25 02:53] LABS: Basophils % (A) 1 %; Eosinophils # (A) 0.3 k/uL (0-0.7); Eosinophils % (A) 5 %; HCT 32.8 % (34.0-46.0); HGB 10.5 gm/dL (11.4-16.0); Lymphocytes # (A) 2.6 k/uL (1.0-4.8); Lymphocytes % (A) 35 %; MCH 29.3 pg (25.0-35.0); MCV 91.6 fL (80.0-100.0); Mean Platelet Volume 8.2; Monocytes # (A) 0.5 k/uL (0-1.0); Monocytes % (A) 7 %; Neutrophils # (A) 3.8 k/uL (1.3-7.7); Neutrophils % (A) 51 %; Platelet Count 201 k/uL (150-450); RBC 3.58 m/uL (3.80-5.40); RDW 13.5 % (11.5-15.5); WBC 7.5 k/uL (3.8-10.6)
[2020-09-25 03:33] LABS: African American GFR (CKD) >90 (>60 ml/min/1.73 sqM); Anion Gap 1 mmol/L; Blood Urea Nitrogen 13 mg/dL (7-17); Calcium 9.4 mg/dL (8.4-10.2); Carbon Dioxide 33 mmol/L (22-30); Chloride 103 mmol/L (98-107); Glucose 135 mg/dL (74-99); Non-African American GFR(CKD) 89 (>60 ml/min/1.73 sqM); Potassium 4.6 mmol/L (3.5-5.1); Sodium 137 mmol/L (137-145)
[2020-09-25 06:23] LABS: Glucose,Whole Blood 123 mg/dL (75-99)
[2020-09-25] MEDS: INSULIN ASPART (NovoLOG) 100 UNIT/ML VIAL SQ SCH ×4 (06:40→20:08)
[2020-09-25] MEDS: PARoxetine 20 MG TAB PO SCH (06:40)
[2020-09-25] MEDS: GABAPENTIN 300 MG CAP PO SCH ×3 (06:40→20:15)
[2020-09-25] MEDS: PANTOPRAZOLE 40 MG TABLET PO SCH (06:41)
[2020-09-25] MEDS: CLOPIDOGREL 75 MG TAB PO SCH (06:41)
[2020-09-25] MEDS: amLODIPine 5 MG TAB PO SCH ×2 (06:41→20:15)
[2020-09-25] MEDS: CYANOCOBALAMIN 500 MCG TAB PO SCH (06:41)
[2020-09-25] MEDS ORDERED: ceFAZolin 1 GM in SODIUM CHLORIDE 0.9% 250 ML IRRIGATION PRN (07:00)
[2020-09-25] MEDS: SYMBICORT 80-4.5 MCG INHALER INHALATION SCH ×2 (09:08→21:46)
[2020-09-25] MEDS: IPRATROPIUM 0.5 MG/2.5 ML NEBU INHALATION SCH ×4 (09:08→21:46)
[2020-09-25] MEDS ORDERED: IV FLUID CONTINUATION 1,000 ML IV ONE (10:56)
[2020-09-25] MEDS ORDERED: IOPAMIDOL-250 50ML BTL IV ONE (11:05)
[2020-09-25] MEDS ORDERED: LIDOCAINE 1% INJ 10MG/ML (20 ML MDV) ONE (11:22)
[2020-09-25] MEDS ORDERED: fentaNYL (PF) 50 MCG/ML 2 ML AMP ONE (11:29)
[2020-09-25] MEDS: MIDAZOLAM 2 MG/2 ML VIAL IV ONE ×2 (11:36→11:42)
[2020-09-25] MEDS ORDERED: LIDOCAINE 1% INJ 10MG/ML (20 ML MDV) SQ ONE (11:37)
[2020-09-25] MEDS: fentaNYL (PF) 50 MCG/ML 2 ML AMP IV ONE ×2 (11:38→11:50)
--- NOTE | 2020-09-25 11:58 | P.PN ---
Subjective Progress Note Date: 09/25/20 History of present illness This is an 80-year-old patient of Dr. Leong with a past medical history significant for coronary artery disease past post PCI, proximal atrial fibrillation on long-term anticoagulant and antiarrhythmic, hypertension, hyperlipidemia, valvular disease, COPD, non-small cell lung CA post radiation, diabetes, peripheral vascular disease with previous stenting, history of CVA with left-sided weakness resolved, GERD. She has had episodes of presyncope wit h bradycardia and hypotension with multiple changes to her blood pressure medications. Patient was most recently hospitalized on September 02 where she presented with palpitations and chest pains related to episodes of atrial fibrillation with RVR. There are no medication changes done at that time. Devin bustillo presented to the emergency room today due to low heart rate reading from her pulse ox device. The device registers her heart rate in 20s. Patient states she was feeling dizzy, weakness, nausea and near syncope at that time. The symptoms occurred yesterday and were persistent. Upon arrival to the emergency room her heart rate was found to be in the 50s. Blood pressure 174/66. BUN was 28 and creatinine 0.6. Blood sugar is 117. Influenza A and B RSV and COVID-19 testing were all negative. Chest x-ray revealed a small infiltrate in the right lobe consistent with pneumonia. She was started on antibiotics. Patient's heart rate continues to be in the 40s and 50s with a 2.1 second pause throughout the night. At this time patient is found resting comfortable and better without any complaints of dizziness lightheadedness or syncope. Patient denies any chest pain at this time. She is complaining of right groin pain from previous stent that was placed more than 20 years ago. Patient states that the area is tender to touch and it is intermittent and bothering her today. Echocardiogram from August 06 reveals EF of 55-60% with trace mitral regurgitation and trace tricuspid regurgitation. Bone scan on 09/02 was negative 09/23: Patient's heart rate dropped down into the 30s while she was sleeping. She did have a 2.1 second part. As discussed for her to have a pacemaker however patient is reluctant for the procedure. CAT scan impression: New development cluster of nodules in the right upper lobe suspicious for neoplasm. CT-guided biopsy should be and/or PET scan should be considered. States that she is feeling better today with no nausea dizziness or lightheadedness. Patient does not feel any palpitations. She does not have any chest pain. Patient remains afebrile, heart rate 58, respirations 20, blood pressure 121/61 oxygen 99% on 3 L. 53: Patient has been seen by pulmonary medicine with plan for follow-up for PET scan as an outpatient. Patient is currently nothing by mouth waiting for decision from cardiology regarding pacemaker implantation. Patient denies any complaints today. No chest pain or shortness of breath. No lightheadedness or dizziness. Heart rate has been running in the 50s and 60s. Blood pressure 134/64, pulse ox 90% on 2 L nasal cannula. Patient has been afebrile. Blood sugar 113. 5/4: She was complaining yesterday of severe abdominal pain which she felt was not related to gas pain. She is felt was very severe was on the right side. CAT scan of the abdomen and pelvis with contrast were done which revealed bidl-cf-fhasgpol diffuse colonic fecal stasis. No bowel obstruction. No acute findings. Patient states that she had a large bowel movement this morning and her abdominal pain has resolved. She is complaining of right rib pain that hurts with deep breathing and moving. Patient has been afebrile, heart rate in the 50s and 60s, blood pressure 112/55, pulse ox 99% on 2 L nasal cannula. Repeat blood work reveals WBC 7.5, hemoglobin 10.5, platelet count 201. Electrolytes are in the normal range except for CO2 of 33. Creatinine 0.54. Blood sugars running between 123 and 152. Patient is scheduled for pacemaker insertion today with cardiology and if cleared for discharge by cardiology, patient will be discharged later today. Review Of Systems: Constitutional: No fever, no chills, no night sweats. No weight change. No weakness, fatigue or lethargy. No daytime sleepiness. EENT: No headache. No blurred vision or double vision, no loss of vision. No loss of Hearing, no ringing in the ears, no dizziness. No nasal drainage or congestion. No epistaxis. No sore throat. Lungs: No shortness of breath, cough, no sputum production. No wheezing. Cardiovascular: Right rib pain, no lower extremity edema. No palpitations. No paroxysmal nocturnal dyspnea. No orthopnea. Reports lightheadedness and dizziness - resolved. Reports syncopal episodes. Abdominal: no abdominal discomfort. No nausea, vomiting. no diarrhea. No constipation-resolved. No bloody or tarry stools. no loss of appetite. Genitourinary: No dysuria, increased frequency, urgency. No urinary retention. Musculoskeletal: Denies right groin pain, No myalgias. No muscle weakness, no gait dysfunction, no frequent falls. No back pain. No neck pain. Integumentary: No wounds, no lesions. No rash or pruritus. No unusual bruising. No change in hair or nails. Neurologic: No aphasia. No facial droop. No change in mentation. No head injury. No headache. No paralysis. No paresthesia. Psychiatric: No depression. No anxiety. Endocrine: Mildly abnormal blood sugars. No weight change. Physical examination General Appearance: Alert, cooperative, no distress, this is a 80-year-old pleasant female who appears stated age. Neck HEENT: Supple, no lymphadenopathy, no thyroid enlargement, no carotid bruits. Lungs: Clear to auscultation without crackles or wheezes no rhonchi, no deformity. Chest Wall: Chest wall normal expansion with deep inspiration no tenderness and no deformity was found on exam, no costochondral pain or discomfort. Heart: Regular rate and rhythm, S1, S2 normal, no murmur, rub or gallop. Back: Symmetric, no curvature, ROM normal, no CVA tenderness. Abdomen: Soft, non-tender, no rebound or rigidity, no hepatosplenomegaly. Extremities: Extremities normal, atraumatic, no cyanosis or edema. Pulses: 2+ and symmetric. Skin: Skin color, texture, tugor normal, no rashes or lesions. Neurologic: Alert oriented x3 cranial nerves II through XII intact, no motor deficit, no abnormal balance or gait Assessment and plan 1. Bradycardia. Cardiology consult appreciated. Pacemaker insertion scheduled for today. 2. Lung mass with pneumonia. Patient has history of non-small cell lung cancer status post radiation and follows with Dr. Patel. Pulmonary medicine consult appreciated. Patient to follow-up for outpatient PET scan 3. Groin pain with history of stent right iliac. Groin ultrasound shows no s ignificant abnormalities 4. Paroxysmal atrial fibrillation. Patient will be resumed on eliquis once cleared by cardiology. 5. Hypertension. Continue amlodipine 5 mg by mouth twice a day 6. Hyperlipidemia. Continue atorvastatin 80 mg by mouth at bedtime 7. 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 Continue gabapentin 600 mg by mouth at bedtime, 300 mg by mouth twice a day 8. Coronary artery disease with previous stenting. Plavix 75 mg by mouth 9. Peripheral vascular disease with previous stenting. Plavix 75 mg by mouth 10. Obstructive sleep apnea unable to wear CPAP 11. COPD withaout acute exacerbation. Continue Ventolin nebulizer, Symbicort inhaler 2 puffs, 12. 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 13. Diabetes mellitus type 2. Hold metformin. Accu-Cheks before meals at bedtime with sliding scale coverage 14. History of non-small cell lung cancer status post radiation and follows with Dr. Patel 15. History of CVA with left-sided weakness, resolved. 16. History of DVT postsurgical resolved 17. GERD and GI prophylaxis. Continue Protonix 18. Generalized anxiety and recurrent depression. continue Paxil 19. Abdominal pain secondary to constipation. Patient to continue Senokot S daily at home. 20. Right-sided rib pain, musculoskeletal. 21. DVT prophylaxis. SCDs and YONI augustine CODE STATUS: Full code Discharge plan: Home with [facility] Impression and plan of care have been directed as dictated by the signing physician. Consuelo Gould nurse practitioner acting as scribe for signing Objective - Vital Signs Vital signs: Vital Signs Temp 97.4 F L 09/25/20 08:54 Pulse 61 09/25/20 08:54 Resp 18 09/25/20 08:54 BP 112/55 09/25/20 08:54 Pulse Ox 99 09/25/20 08:54 Intake & Output 09/24/20 09/25/20 09/25/20 18:59 06:59 18:59 Intake Total 440 353.805 Output Total 1600 400 Balance -1160 -46.195 Weight 54.5 kg Intake: Intake, IV Titration 200 103.805 Amount Heparin Sod,Pork in 0.45% 103.805 NaCl 25,000 unit In 0.45 % NaCl 1 250ml.bag @ 12 UNITS/KG/HR 6.72 mls/hr IV .Q24H LETICIA Rx#: [id number] Sodium Chloride 0.9% 1, 200 000 ml @ 50 mls/hr IV . Q20H LETICIA Rx#:[id number] Oral 240 250 Output: Urine 1600 400 Other: Voiding Method Toilet Toilet # Voids 3 1 # Bowel Movements 1 - Labs CBC & Chem 7: 09/25/20 01:43 09/25/20 01:43 Labs: Abnormal Lab Results - Last 24 Hours (Table) 09/24/20 09/24/20 09/24/20 Range/Units 11:32 11:50 17:03 RBC (3.80-5.40) m/uL Hgb (11.4-16.0) gm/dL Hct (34.0-46.0) % APTT 20.2 L (22.0-30.0) sec Carbon Dioxide (22-30) mmol/L Glucose (74-99) mg/dL POC Glucose (mg/dL) 174 H 217 H (75-99) mg/dL 09/24/20 09/24/20 09/25/20 Range/Units 19:17 20:36 01:43 RBC (3.80-5.40) m/uL Hgb (11.4-16.0) gm/dL Hct (34.0-46.0) % APTT 38.7 H (22.0-30.0) sec Carbon Dioxide 33 H (22-30) mmol/L Glucose 135 H (74-99) mg/dL POC Glucose (mg/dL) 152 H (75-99) mg/dL 09/25/20 09/25/20 09/25/20 Range/Units 01:43 01:43 06:22 RBC 3.58 L (3.80-5.40) m/uL Hgb 10.5 L (11.4-16.0) gm/dL Hct 32.8 L (34.0-46.0) % APTT 92.0 H (22.0-30.0) sec Carbon Dioxide (22-30) mmol/L Glucose (74-99) mg/dL POC Glucose (mg/dL) 123 H (75-99) mg/dL Microbiology - Last 24 Hours (Table) 09/22/20 01:40 Blood Culture - Preliminary Blood No Growth after 72 hours 09/22/20 01:35 Blood Culture - Preliminary Blood No Growth after 72 hours
--- NOTE | 2020-09-25 13:51 | P.PN ---
Subjective Progress Note Date: 09/25/20 This is a very pleasant 80-year-old female patient who follows with Dr. Ivey as her primary care provider. She has a history of CVA/TIA, diabetes mellitus, DVT, fibromyalgia, hyperlipidemia, hypertension, atrial fibrillation anticoagulated with Eliquis, coronary artery disease with previous stent placement, lung cancer status post radiation. She also has history of chronic obstructive pulmonary disease from previous tobacco dependence and is on home oxygen at [address] Koch in our office for the same. FEV1 value around 45% of predicted. She presented here to the emergency room yesterday with complaints of dizziness, weakness, near syncope. Chest x-ray revealed a small infiltrate in the right lower lobe. Computed tomography scan of the chest with contrast was performed. There is a new developing cluster of nodules in the right upper lobe suspicious for neoplasm as compared to previous in December 2019. Consulted for the same. She is seen today on the selective care unit. Currently sitting up in bed. Awake and alert in no acute distress. Maintaining good O2 saturations in the 90s on 2 L/m per nasal cannula. Bradycardic with a rate of 50. Blood culture reveals no growth. White count 7.9. Hemoglobin 11.8. Sodium 140. Potassium 4.3. Creatinine 0.87. Glucose 118. TSH 1.16. On Symbicort and albuterol. Eliquis on hold for possible pacemaker insertion. On today's evaluation of 09/24/2020, I'm seeing this patient for a follow-up. The patient has no specific complaints. Her heart rate has improved and there is no significant bradycardia. Were not sure if cardiology still planning to undergo pacemaker insertion on this patient. Meanwhile, I reviewed the CAT scan of the chest on this patient. Note that the patient has COPD. The patient also has a right lower lobe pulmonary lesion that was confirmed to be a malignancy and the patient was treated with radiation therapy. Most recent CAT scan at shown some changes in the scar and in the area of the right lower lobe nodule. I think this is something that can be followed up on outpatient basis. There is a questionable area of new development of a cluster of nodules in the right upper lobe suspicious for neoplasm. The dense scar in the right lower lobe essentially unchanged. There is no mediastinal lymphadenopathy. A PET scan will be needed and the biopsy may need to be considered if the PET scan confirms abnormalities. Otherwise, no syncope, no chest pain, no significant shortness of breath, currently on 2 L of oxygen by nasal cannula. No hypoglycemia. No other significant events overnight. On 09/25/2020, the patient is hemodynamically stable. The plan is to proceed with pacemaker insertion and the patient will be taken to the Residence Director to und ergo a pacemaker insertion. She is doing well. She has no specific complaints. No chest pain. No cough or sputum production. I did go to or sores in the room and explained the findings on the CAT scan of the chest and the patient will need outpatient workup including a PET scan and possible biopsy if needed. Currently is on 2 L of oxygen by nasal cannula with a pulse ox of 99%. No angina. No palpitation. No syncope. She did express some abdominal discomfort earlier this morning and this improved after the patient had bowel movements. The patient's hemoglobin is at 10.5. With a is at 7.5. No significant electrode disturbances. Objective - Vital Signs Vital signs: Vital Signs Temp 97.4 F L 09/25/20 08:54 Pulse 61 09/25/20 08:54 Resp 18 09/25/20 08:54 BP 112/55 09/25/20 08:54 Pulse Ox 99 09/25/20 08:54 Intake & Output 09/24/20 09/25/20 09/25/20 18:59 06:59 18:59 Intake Total 440 353.805 50 Output Total 1600 400 Balance -1160 -46.195 50 Weight 54.5 kg Intake: IV 50 Intake, IV Titration 200 103.805 Amount Heparin Sod,Pork in 0.45% 103.805 NaCl 25,000 unit In 0.45 % NaCl 1 250ml.bag @ 12 UNITS/KG/HR 6.72 mls/hr IV .Q24H LETICIA Rx#: [id number] Sodium Chloride 0.9% 1, 200 000 ml @ 50 mls/hr IV . Q20H LETICIA Rx#:[id number] Oral 240 250 Output: Urine 1600 400 Other: Voiding Method Toilet Toilet Toilet # Voids 3 1 # Bowel Movements 1 - Exam General Appearance: Alert, cooperative, no distress, this is a 80-year-old pleasant female who appears stated age. Neck HEENT: Supple, no lymphadenopathy, no thyroid enlargement, no carotid bruits. Lungs: Clear to auscultation without crackles or wheezes no rhonchi, no deformity. Chest Wall: Chest wall normal expansion with deep inspiration no tenderness and no deformity was found on exam, no costochondral pain or discomfort. Heart: Regular rate and rhythm, S1, S2 normal, no murmur, rub or gallop. Back: Symmetric, no curvature, ROM normal, no CVA tenderness. Abdomen: Soft, non-tender, no rebound or rigidity, no hepatosplenomegaly. Extremities: Extremities normal, atraumatic, no cyanosis or edema. Pulses: 2+ and symmetric. Skin: Skin color, texture, tugor normal, no rashes or lesions. Neurologic: Alert oriented x3 cranial nerves II through XII intact, no motor deficit, no abnormal balance or gait - Labs CBC & Chem 7: 09/25/20 01:43 09/25/20 01:43 Labs: Abnormal Lab Results - Last 24 Hours (Table) 09/24/20 09/24/20 09/24/20 Range/Units 17:03 19:17 20:36 RBC (3.80-5.40) m/uL Hgb (11.4-16.0) gm/dL Hct (34.0-46.0) % APTT 38.7 H (22.0-30.0) sec Carbon Dioxide (22-30) mmol/L Glucose (74-99) mg/dL POC Glucose (mg/dL) 217 H 152 H (75-99) mg/dL 09/25/20 09/25/20 09/25/20 Range/Units 01:43 01:43 01:43 RBC 3.58 L (3.80-5.40) m/uL Hgb 10.5 L (11.4-16.0) gm/dL Hct 32.8 L (34.0-46.0) % APTT 92.0 H (22.0-30.0) sec Carbon Dioxide 33 H (22-30) mmol/L Glucose 135 H (74-99) mg/dL POC Glucose (mg/dL) (75-99) mg/dL 09/25/20 Range/Units 06:22 RBC (3.80-5.40) m/uL Hgb (11.4-16.0) gm/dL Hct (34.0-46.0) % APTT (22.0-30.0) sec Carbon Dioxide (22-30) mmol/L Glucose (74-99) mg/dL POC Glucose (mg/dL) 123 H (75-99) mg/dL Microbiology - Last 24 Hours (Table) 09/22/20 01:40 Blood Culture - Preliminary Blood No Growth after 72 hours 09/22/20 01:35 Blood Culture - Preliminary Blood No Growth after 72 hours Assessment and Plan Plan: 1 Near syncopal episode suspect secondary to bradycardia, awaiting a pacemaker i nsertion, to be done today 2 Atrial fibrillation with bradycardia, anticoagulated with Eliquis 3 Coronary artery disease with previous stent placement 4 Chronic obstructive pulmonary disease, FEV1 value of 45% of predicted, on home O2 5 History of chronic tobacco dependence 6 History of lung cancer status post radiation in 2011 7 New history of nodular densities in the right upper lobe measuring approximately 1 cm in size, and a stable scar in the right lower lobe. Consider cancer progression. The patient has received radiation therapy to a malignant lesion in the right lower lobe many years back. 8 CVA/TIA 9 Diabetes mellitus 10 History of DVT 11 Fibromyalgia 12 Hypertension 13 Hyperlipidemia Plan: In regards to the possibility of lung cancer, the patient will need an outp atient PET scan and biopsy that the PET scan confirms abnormalities. No need for immediate biopsy at this point in time. Pacemaker insertion today Monitor heart rate Continue Symbicort and albuterol h We'll continue to follow and make further recommendations based on her clinical status.
[2020-09-25] MEDS: MORPHINE SULFATE 2 MG/ML SYRINGE IV PRN (14:38)
[2020-09-25] MEDS: ACETAMINOPHEN TAB 325 MG TAB PO PRN ×2 (14:39→21:41)
[2020-09-25 17:18] LABS: Glucose,Whole Blood 182 mg/dL (75-99)
[2020-09-25] MEDS: CHOLECALCIFEROL 25 MCG (1000 IU) TABLET PO SCH (17:42)
[2020-09-25 20:07] LABS: Glucose,Whole Blood 107 mg/dL (75-99)
[2020-09-25] MEDS: ATORVASTATIN 80 MG TAB PO SCH (20:15)
[2020-09-25] MEDS: ALBUTEROL NEBULIZED 2.5 MG/3 ML INHALATION PRN (21:46)
[2020-09-26] MEDS: SODIUM CHLORIDE 0.9% 1,000 ML IV SCH (04:20)
[2020-09-26 06:31] LABS: Glucose,Whole Blood 118 mg/dL (75-99)
[2020-09-26] MEDS: INSULIN ASPART (NovoLOG) 100 UNIT/ML VIAL SQ SCH ×2 (06:32→13:24)
--- NOTE | 2020-09-26 06:47 | XR ---
EXAMINATION TYPE: XR chest 2V DATE OF EXAM: 09/26/2020 COMPARISON: Chest x-ray [address] 4 days ago and older CTs. HISTORY: Lead placement check. TECHNIQUE: Frontal and lateral views of the chest are obtained. FINDINGS: There is chronic emphysematous and right midlung parenchymal change without suspicious foc al air space opacity or pneumothorax seen. Tiny bilateral pleural effusions seen best on lateral view . The cardiac silhouette size is stable and within normal limits with atherosclerotic thoracic aorta redemonstrated. Dual-lead pacemaker has leads terminating in right atrium and right ventricle. The o sseous structures are intact. IMPRESSION: New dual-lead pacemaker. Chronic changes without new acute pulmonary process.
[2020-09-26] MEDS: GABAPENTIN 300 MG CAP PO SCH ×2 (08:48→12:05)
[2020-09-26] MEDS: CYANOCOBALAMIN 500 MCG TAB PO SCH (08:48)
[2020-09-26] MEDS: PARoxetine 20 MG TAB PO SCH (08:49)
[2020-09-26] MEDS: PANTOPRAZOLE 40 MG TABLET PO SCH (08:49)
[2020-09-26] MEDS: amLODIPine 5 MG TAB PO SCH (08:49)
[2020-09-26] MEDS: SYMBICORT 80-4.5 MCG INHALER INHALATION SCH (08:54)
[2020-09-26] MEDS: IPRATROPIUM 0.5 MG/2.5 ML NEBU INHALATION SCH ×2 (08:54→11:43)
--- NOTE | 2020-09-26 09:13 | P.DS ---
Providers Date of admission: 09/22/20 00:43 Expected date of discharge: 09/26/20 Attending physician: Nohemi Estrada Consults: 09/22/20 01:11 Consult Physician Routine Consulting Provider: [facility] Consult Reason/Comments: symptomatic tesfaye Do you want consulting provider notified?: Yes 09/23/20 08:46 Consult Physician Routine Consulting Provider: Markell Koch Consult Reason/Comments: new lung mass Do you want consulting provider notified?: Yes Primary care physician: Kaylie Ivey MD Hospital Course: History of present illness This is an 80-year-old patient of Dr. Leong with a past medical history significant for coronary artery disease past post PCI, proximal atrial fibrillation on long-term anticoagulant and antiarrhythmic, hypertension, hyperlipidemia, valvular disease, COPD, non-small cell lung CA post radiation, diabetes, peripheral vascular disease with previous stenting, history of CVA with left-sided weakness resolved, GERD. She has had episodes of presyncope with bradycardia and hypotension with multiple changes to her blood pressure medications. Patient was most recently hospitalized on September 02 where she presented with palpitations and chest pains related to episodes of atrial fibrillation with RVR. There are no medication changes done at that time. Patient presented to the emergency room today due to low heart rate reading from her pulse ox device. The device registers her heart rate in 20s. Patient states she was feeling dizzy, weakness, nausea and near syncope at that time. The symptoms occurred yesterday and were persistent. Upon arrival to the emergency room her heart rate was found to be in the 50s. Blood pressure 174/66. BUN was 28 and creatinine 0.6. Blood sugar is 117. Influenza A and B RSV and COVID-19 testing were all negative. Chest x-ray revealed a small infiltrate in the right lobe consistent with pneumonia. She was started on antibiotics. Patient's heart rate continues to be in the 40s and 50s with a 2.1 second pause throughout the night. At this time patient is found resting comfortable and better without any complaints of dizziness lightheadedness or syncope. Patient denies any chest pain at this time. She is complaining of right groin pain from previous stent that was placed more than 20 years ago. Patient states that the area is tender to touch and it is intermittent and bothering her today. Echocardiogram from August 06 reveals EF of 55-60% with trace mitral regurgitation and trace tricuspid regurgitation. Bone scan on 09/02 was negative 09/23: Patient's heart rate dropped down into the 30s while she was sleeping. She did have a 2.1 second part. As discussed for her to have a pacemaker however patient is reluctant for the procedure. CAT scan impression: New development cluster of nodules in the right upper lobe suspicious for neoplasm. CT-guided biopsy should be and/or PET scan should be considered. States that she is feeling better today with no nausea dizziness or lightheadedness. Patient does not feel any palpitations. She does not have any chest pain. Patient remains afebrile, heart rate 58, respirations 20, blood pressure 121/61 oxygen 99% on 3 L. 09/24: Patient has been seen by pulmonary medicine with plan for follow-up for PET scan as an outpatient. Patient is currently nothing by mouth waiting for decision from cardiology regarding pacemaker implantation. Patient denies any complaints today. No chest pain or shortness of breath. No lightheadedness or dizziness. Heart rate has been running in the 50s and 60s. Blood pressure 134/64, pulse ox 90% on 2 L nasal cannula. Patient has been afebrile. Blood sugar 113. 09/25: She was complaining yesterday of severe abdominal pain which she felt was not related to gas pain. She is felt was very severe was on the right side. CAT scan of the abdomen and pelvis with contrast were done which revealed [id number] diffuse colonic fecal stasis. No bowel obstruction. No acute findings. Patient states that she had a large bowel movement this morning and her abdominal pain has resolved. She is complaining of right rib pain that hurts with deep breathing and moving. Patient has been afebrile, heart rate in the 50s and 60s, blood pressure 112/55, pulse ox 99% on 2 L nasal cannula. Repeat blood work reveals WBC 7.5, hemoglobin 10.5, platelet count 201. Electrolytes are in the normal range except for CO2 of 33. Creatinine 0.54. Blood sugars running between 123 and 152. Patient is scheduled for pacemaker insertion today with cardiology and if cleared for discharge by cardiology, patient will be discharged later today. 09/26: Yesterday, patient underwent implantation of pacemaker. Chest x-ray reveals new newly pacemaker. Chronic changes without acute pulmonary process. Patient has been afebrile, heart rate running between 64 and 74. Blood pressure 151/74, pulse ox 95% on room air. Blood sugars are running between 107 - 182. Patient has been seen by cardiology this morning and cleared for discharge. Patient will be discharged home today in stable condition. Discharge diagnoses 1. Systematic bradycardia. Status post pacemaker. 2. Lung mass without pneumonia. 3. Groin pain with history of stent right iliac. 4. Paroxysmal atrial fibrillation. 5. Hypertension. 6. Hyperlipidemia. 7. 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 8. Coronary artery disease with previous stenting. 9. Peripheral vascular disease with previous stenting. 10. Obstructive sleep apnea unable to wear CPAP 11. COPD without acute exacerbation. 12. Chronic hypoxic respiratory failure on home O2 at 2 L nasal cannula. 13. Diabetes mellitus type 2. 14. History of non-small cell lung cancer status post radiation and follows with Dr. Patel 15. History of CVA with left-sided weakness, resolved. 16. History of DVT postsurgical resolved 17. GERD. 18. Generalized anxiety and recurrent depression. Discharge plan: Home with [facility] Impression and plan of care have been directed as dictated by the signing physician. Consuelo Gould nurse practitioner acting as scribe for signing Patient Condition at Discharge: Good Plan - Discharge Summary Discharge Rx Participant: No New Discharge Prescriptions: New Sennosides-Docusate Sodium [Senokot-S] 1 tab PO DAILY #30 tablet Cephalexin [Keflex] 500 mg PO TID 3 Days #9 cap Continue Pantoprazole Sodium [Protonix] 40 mg PO QAM Apixaban [Eliquis] 2.5 mg PO BID tablet Fluticasone/Umeclidin/Vilanter [Trelegy Ellipta 100-62.5-25] 1 puff INHALATION RT-DAILY Nitroglycerin Sl Tabs [Nitrostat] 0.4 mg SUBLINGUAL Q5M PRN #20 tab PRN Reason: Chest Pain L.acidoph,Paracasei, B.lactis [Probiotic] 1 cap PO DAILY metFORMIN HCL [Glucophage] 500 mg PO DAILY PARoxetine [Paxil] 20 mg PO DAILY ALPRAZolam [Xanax] 0.25 mg PO Q8H PRN PRN Reason: Anxiety Gabapentin 300 mg PO BID@0800,1200 Gabapentin 600 mg PO HS Atorvastatin [Lipitor] 80 mg PO HS Cholecalciferol [Vitamin D3 (25 Mcg = 1000 Iu)] 1,000 unit PO W/SUPPER amLODIPine [Norvasc] 5 mg PO BID #60 tab Lidocaine 5% Patch [Lidoderm 5% Patch] 1 patch TOPICAL DAILY PRN PRN Reason: Pain Albuterol Sulfate [Proventil Hfa] 2 puff INHALATION RT-Q6H PRN PRN Reason: Shortness Of Breath Cyanocobalamin (Vitamin B-12) [Vitamin B-12] 1,000 mcg PO DAILY Docusate [Colace] 100 mg PO DAILY PRN PRN Reason: Constipation Clopidogrel [Plavix] 75 mg PO DAILY #30 tab Metoprolol Succinate (ER) [Toprol XL] 25 mg PO BID busPIRone HCl [Buspar] 10 mg PO TID Discharge Medication List Pantoprazole Sodium [Protonix] 40 mg PO QAM 09/23/16 [History] Apixaban [Eliquis] 2.5 mg PO BID tablet 10/02/16 [Rx] Fluticasone/Umeclidin/Vilanter [Trelegy Ellipta 100-62.5-25] 1 puff INHALATION RT-DAILY 04/19/20 [History] Nitroglycerin Sl Tabs [Nitrostat] 0.4 mg SUBLINGUAL Q5M PRN #20 tab 04/21/20 [Rx] ALPRAZolam [Xanax] 0.25 mg PO Q8H PRN 07/12/20 [History] Atorvastatin [Lipitor] 80 mg PO HS 07/12/20 [History] Cholecalciferol [Vitamin D3 (25 Mcg = 1000 Iu)] 1,000 unit PO W/SUPPER 07/12/20 [History] Gabapentin 300 mg PO BID@0800,1200 07/12/20 [History] Gabapentin 600 mg PO HS 07/12/20 [History] L.acidoph,Paracasei, B.lactis [Probiotic] 1 cap PO DAILY 07/12/20 [History] PARoxetine [Paxil] 20 mg PO DAILY 07/12/20 [History] metFORMIN HCL [Glucophage] 500 mg PO DAILY 07/12/20 [History] amLODIPine [Norvasc] 5 mg PO BID #60 tab 07/13/20 [Rx] Albuterol Sulfate [Proventil Hfa] 2 puff INHALATION RT-Q6H PRN 08/04/20 [History] Cyanocobalamin (Vitamin B-12) [Vitamin B-12] 1,000 mcg PO DAILY 08/04/20 [History] Docusate [Colace] 100 mg PO DAILY PRN 08/04/20 [History] Lidocaine 5% Patch [Lidoderm 5% Patch] 1 patch TOPICAL DAILY PRN 08/04/20 [History] Clopidogrel [Plavix] 75 mg PO DAILY #30 tab 08/10/20 [Rx] Metoprolol Succinate (ER) [Toprol XL] 25 mg PO BID 09/22/20 [History] busPIRone HCl [Buspar] 10 mg PO TID 09/22/20 [History] Sennosides-Docusate Sodium [Senokot-S] 1 tab PO DAILY #30 tablet 09/25/20 [Rx] Cephalexin [Keflex] 500 mg PO TID 3 Days #9 cap 09/26/20 [Rx] Follow up Appointment(s)/Referral(s): Kaylie Ivey MD [Primary Care Provider] - 1 Week Markell Koch MD [STAFF PHYSICIAN] - 2 Weeks (Plan for OP PET) Lazaro Lance MD [STAFF PHYSICIAN] - 1 Week Patient Instructions/Handouts: Pacemaker (DC) Activity/Diet/Wound Care/Special Instructions: Resume Eliquis tomorrow Resume Plavix tonight Keflex 500mg Three times a day for 3 days. Prescription sent to pharmacy Discharge Disposition: HOME WITH HOME HEALTH SERVICES
[2020-09-26 11:22] VITALS: BMI 20.7
[2020-09-26 11:35] LABS: Glucose,Whole Blood 157 mg/dL (75-99)
--- NOTE | 2020-09-26 11:39 | P.PN ---
Subjective Progress Note Date: 09/26/20 This is a very pleasant 80-year-old female patient who follows with Dr. Ivey as her primary care provider. She has a history of CVA/TIA, diabetes mellitus, DVT, fibromyalgia, hyperlipidemia, hypertension, atrial fibrillation anticoagulated with Eliquis, coronary artery disease with previous stent placement, lung cancer status post radiation. She also has history of chronic obstructive pulmonary disease from previous tobacco dependence and is on home oxygen at [address] Koch in our office for the same. FEV1 value around 45% of predicted. She presented here to the emergency room yesterday with complaints of dizziness, weakness, near syncope. Chest x-ray revealed a small infiltrate in the right lower lobe. Computed tomography scan of the chest with contrast was performed. There is a new developing cluster of nodules in the right upper lobe suspicious for neoplasm as compared to previous in December 2019. Consulted for the same. She is seen today on the selective care unit. Currently sitting up in bed. Awake and alert in no acute distress. Maintaining good O2 saturations in the 90s on 2 L/m per nasal cannula. Bradycardic with a rate of 50. Blood culture reveals no growth. White count 7.9. Hemoglobin 11.8. Sodium 140. Potassium 4.3. Creatinine 0.87. Glucose 118. TSH 1.16. On Symbicort and albuterol. Eliquis on hold for possible pacemaker insertion. On today's evaluation of 09/24/2020, I'm seeing this patient for a follow-up. The patient has no specific complaints. Her heart rate has improved and there is no significant bradycardia. Were not sure if cardiology still planning to undergo pacemaker insertion on this patient. Meanwhile, I reviewed the CAT scan of the chest on this patient. Note that the patient has COPD. The patient also has a right lower lobe pulmonary lesion that was confirmed to be a malignancy and the patient was treated with radiation therapy. Most recent CAT scan at shown some changes in the scar and in the area of the right lower lobe nodule. I think this is something that can be followed up on outpatient basis. There is a questionable area of new development of a cluster of nodules in the right upper lobe suspicious for neoplasm. The dense scar in the right lower lobe essentially unchanged. There is no mediastinal lymphadenopathy. A PET scan will be needed and the biopsy may need to be considered if the PET scan confirms abnormalities. Otherwise, no syncope, no chest pain, no significant shortness of breath, currently on 2 L of oxygen by nasal cannula. No hypoglycemia. No other significant events overnight. On 09/25/2020, the patient is hemodynamically stable. The plan is to proceed with pacemaker insertion and the patient will be taken to the [facility] to und ergo a pacemaker insertion. She is doing well. She has no specific complaints. No chest pain. No cough or sputum production. I did go to or sores in the room and explained the findings on the CAT scan of the chest and the patient will need outpatient workup including a PET scan and possible biopsy if needed. Currently is on 2 L of oxygen by nasal cannula with a pulse ox of 99%. No angina. No palpitation. No syncope. She did express some abdominal discomfort earlier this morning and this improved after the patient had bowel movements. The patient's hemoglobin is at 10.5. With a is at 7.5. No significant electrode disturbances. 09/26/2020, the patient is post pacemaker insertion. No syncope. Hemodynamically stable. No cough sputum production chest that so wheezing. No other significant events overnight. She is currently on 2 L and her pulse ox is mainly 98%. Blood work showing no significant abnormalities. Chest x-ray post pacemaker insertion shows no acute abnormalities. His underlying emphysema/COPD without any airspace disease or pulmonary infiltration. The sugar this morning is at 118. Objective - Vital Signs Vital signs: Vital Signs Temp 98.3 F 09/26/20 08:00 Pulse 72 09/26/20 09:07 Resp 16 09/26/20 08:00 BP 155/69 09/26/20 08:00 Pulse Ox 98 09/26/20 08:00 Intake & Output 09/25/20 09/26/20 09/26/20 18:59 06:59 18:59 Intake Total 530 660 Output Total 800 1400 300 Balance -270 -1400 360 Weight 54.8 kg 54.8 kg Intake: IV 50 Oral 480 660 Output: Urine 800 1400 300 Other: Voiding Method Toilet Toilet Toilet # Voids 3 - Exam General Appearance: Alert, cooperative, no distress, this is a 80-year-old pleasant female who appears stated age. Neck HEENT: Supple, no lymphadenopathy, no thyroid enlargement, no carotid bruits. Lungs: Clear to auscultation without crackles or wheezes no rhonchi, no deformity. Chest Wall: Chest wall normal expansion with deep inspiration no tenderness and no deformity was found on exam, no costochondral pain or discomfort. Heart: Regular rate and rhythm, S1, S2 normal, no murmur, rub or gallop. Back: Symmetric, no curvature, ROM normal, no CVA tenderness. Abdomen: Soft, non-tender, no rebound or rigidity, no hepatosplenomegaly. Extremities: Extremities normal, atraumatic, no cyanosis or edema. Pulses: 2+ and symmetric. Skin: Skin color, texture, tugor normal, no rashes or lesions. Neurologic: Alert oriented x3 cranial nerves II through XII intact, no motor deficit, no abnormal balance or gait - Labs CBC & Chem 7: 09/25/20 01:43 09/25/20 01:43 Labs: Abnormal Lab Results - Last 24 Hours (Table) 09/25/20 09/25/20 09/26/20 Range/Units 17:15 20:05 06:26 POC Glucose (mg/dL) 182 H 107 H 118 H (75-99) mg/dL Microbiology - Last 24 Hours (Table) 09/22/20 01:35 Blood Culture - Preliminary Blood No Growth after 96 hours 09/22/20 01:40 Blood Culture - Preliminary Blood No Growth after 96 hours Assessment and Plan Plan: 1 Near syncopal episode suspect secondary to bradycardia, post pacemaker insertion 2 Atrial fibrillation with bradycardia, on no anticoagulants 3 Coronary artery disease with previous stent placement 4 Chronic obstructive pulmonary disease, FEV1 value of 45% of predicted, on home O2 5 History of chronic tobacco dependence 6 History of lung cancer status post radiation in 2011 7 New history of nodular densities in the right upper lobe measuring approximately 1 cm in size, and a stable scar in the right lower lobe. Consider cancer progression. The patient has received radiation therapy to a malignant lesion in the right lower lobe many years back. 8 CVA/TIA 9 Diabetes mellitus 10 History of DVT 11 Fibromyalgia 12 Hypertension 13 Hyperlipidemia Plan: In regards to the possibility of lung cancer, the patient will need an outpatient PET scan and biopsy that the PET scan confirms abnormalities. No need for immediate biopsy at this point in time. Pacemaker inserted Monitor heart rate Continue Symbicort and albuterol Pulmonary and critical care services will sign off the case.
--- NOTE | 2020-09-26 13:08 | P.PN ---
Subjective HISTORY OF PRESENTING ILLNESS This is a pleasant 80-year-old female past medical history significant for coronary artery disease status post prior stenting, paroxysmal atrial fibrillation (on eliquis), hypertension, dyslipidemia, carotid artery disease, mild to moderate mitral regurgitation, sick sinus syndrome heart rate was in the 30s and previously inpatient, non-small cell lung CA post radiation, Ischemic stroke (is on Plavix). She follows in the office with Dr. Lance. We have been asked to see in consultation for symptomatic bradycardia. Patient was most recently hospitalized on September 02 where she presented with palpitations and chest pains related to episodes of atrial fibrillation with RVR. Patient has been seen by pulmonary medicine with plan for follow-up for PET scan as an outpatient Most recent echocardiogram F 55-60%, trace mitral regurgitation and trace tricuspid regurgitation 09/25/20: Patient underwent dual-chamber pacemaker Dr. Martin 09/26/20: Patient seen and examined at bedside, no acute distress. Vital signs are stable. Patient states that she does have some mild discomfort at Left chest pacemaker site, dressing is clean, scant dried blood, some tenderness noted that site. No hematoma. PHYSICAL EXAMINATION Blood pressure 155/69 heart rate 60 to 70s afebrile and maintaining oxygen saturation 98% on room air CONSTITUTIONAL: No apparent distress. HEENT: Head is normocephalic. No JVD. No carotid bruit. CHEST EXAMINATION: Lungs are clear to auscultation. HEART EXAMINATION: Regular rate and rhythm. S1, S2 heard. No murmurs, gallops or rub. ABDOMEN: Soft, nontender. Positive bowel sounds. EXTREMITIES: 2+ peripheral pulses, no lower extremity edema and no calf tenderness. NEUROLOGIC EXAMINATION: Patient is awake, alert and oriented x3. ASSESSMENT Symptomatic bradycardia Sick sinus syndrome Hypertension Dyslipidemia Coronary artery disease Paroxysmal atrial fibrillationon Eliquis Lung cancer PLAN From cardiology perspective, If interrogation of pacemaker with no acute changes, patient is stable to be discharged home. Patient to continue Plavix tonight Start Eliquis tomorrow morning Keflex 500mg TID for 3 days Ok to restart home metoprolol succinate on discharge Patient follow up with Dr. Lance within one to 2 weeks. Nurse Practitioner note has been reviewed, I agree with a documented findings and plan of care. Patient was seen and examined. Objective - Vital Signs Vital signs: Vital Signs Temp 98.3 F 09/26/20 08:00 Pulse 68 09/26/20 11:54 Resp 16 09/26/20 08:00 BP 155/69 09/26/20 08:00 Pulse Ox 98 09/26/20 08:00 Intake & Output 09/25/20 09/26/20 09/26/20 18:59 06:59 18:59 Intake Total 530 660 Output Total 800 1400 300 Balance -270 -1400 360 Weight 54.8 kg 54.8 kg Intake: IV 50 Oral 480 660 Output: Urine 800 1400 300 Other: Voiding Method Toilet Toilet Toilet # Voids 3 - Labs CBC & Chem 7: 09/25/20 01:43 09/25/20 01:43 Labs: Abnormal Lab Results - Last 24 Hours (Table) 09/25/20 09/25/20 09/26/20 Range/Units 17:15 20:05 06:26 POC Glucose (mg/dL) 182 H 107 H 118 H (75-99) mg/dL 09/26/20 Range/Units 11:33 POC Glucose (mg/dL) 157 H (75-99) mg/dL Microbiology - Last 24 Hours (Table) 09/22/20 01:35 Blood Culture - Preliminary Blood No Growth after 96 hours 09/22/20 01:40 Blood Culture - Preliminary Blood No Growth after 96 hours
[2020-09-26 13:22] VITALS: BP 148/72; PULSE 62; RESP 18; TEMP 98
--- NOTE | 2020-09-27 08:40 | P.PCN ---
Date of Procedure: 09/27/20 Preoperative Diagnosis: Tachybradycardia syndrome Postoperative Diagnosis: The same Procedure(s) Performed: Dual-chamber permanent pacemaker, axillary venography Description of Procedure: HISTORY: This is a 80-year-old female with history of paroxysmal atrial fibrillation and tachybradycardia syndrome with episodes of bradycardia. Patient is advised to have a dual-chamber permanent pacemaker implantation. She is a patient of Dr. Rodriguez CONSENT:I have discussed the risks, benefits and alternative therapies for the above-mentioned procedure and for both sedation/analgesia as well as necessary blood product administration, if indicated, as they pertain to this patient. The patient has indicated understanding and acceptance of the risks and procedures discussed. PROCEDURE: Patient was brought to the lab in a fasting state. Patient was prepped and draped in the usual fashion. Patient was given IV sedation with fentanyl and Versed. The skin below the left clavicle was infiltrated with lidocaine. An incision was made parallel to deltopectoral groove was deepened until the pectoral fascia was exposed. A pocket was created by blunt dissection and cautery. Axillary venography was performed to delineate the course of the axillary vein. 2 sticks were performed into extrathoracic portion of the axillary vein and 2 sheaths were advanced over the guidewires and left in subclavian vein. Conscious Sedation: Versed 2 mg Fentanyl 150 g Duration : 51 minutes LEADS: ATRIAL: This is manufactured by [employer]. Model number is 5076-45. Serial number is [id number] VENTRICULAR: This is manufactured by [employer]. Model number is 5076-52. Serial number is [id number] The ventricular lead is maneuvered l with help of a st raight and curved stylets into the left ventricle apical region. Satisfactory position was obtained and threshold measurements were made. The atrial lead was then maneuvered into the right atrial appendage. And thresholds were obtained. THRESHOLDS: ATRIUM: . The minimal patient threshold was less than 1 at pulse width of 0.5. The impedance was around 600 P-wave: 1-2.5 VENTRICLE: . Minimum patient threshold was less than 1.5. Impedance was about 800 R-wave: 6 The leads and pulse generator remained in the pocket after it was washed with antibiotics. Pocket was closed in the usual fashion. The fascia was closed with 2-0 Prolene ,the subcutaneous tissue was closed with 3-0 Prolene and the skin was closed with 4-0 Prolene. PROGRAMMING: MODE: . DDD RATE: 60 to 130 OUTPUT: Atrium : 3.5 Ventricle 3.5 FINAL IMPRESSION: 1. Axillary venography #2. Dual-chamber permanent pacemaker implantation COMPLICATIONS: None PLAN: Continue prophylactic antibiotics. Chest x-ray in the morning. Possible discharge within 24 hours
[2020-09-27] MEDS ORDERED: CEPHALEXIN 500 MG CAP PO SCH (09:00)
== END 2020-09-26 16:51 | disposition home health service (06) | DRG 243 ==
LOC: EC 23:16 → 3SCARD 09-22 00:43
PROVIDERS: ADMIT Family Medicine; ATTEND Family Medicine
PROC: 02H63JZ Insertion of Pacemaker Lead into Right Atrium, Percutaneous Approach (ICD-10-PCS; principal; 2020-09-26)
PROC: 0JH606Z Insertion of Pacemaker, Dual Chamber into Chest Subcutaneous Tissue and Fascia, Open Approach (ICD-10-PCS; principal; 2020-09-26)
PROC: 02HK3JZ Insertion of Pacemaker Lead into Right Ventricle, Percutaneous Approach (ICD-10-PCS; principal; 2020-09-26)
DX: I49.5 Sick sinus syndrome (principal); F33.9 Major depressive disorder, recurrent, unspecified; J96.11 Chronic respiratory failure with hypoxia; C78.01 Secondary malignant neoplasm of right lung; E11.51 Type 2 diabetes mellitus with diabetic peripheral angiopathy without gangrene; E78.5 Hyperlipidemia, unspecified; Z87.891 Personal history of nicotine dependence; F41.1 Generalized anxiety disorder; Z86.73 Personal history of transient ischemic attack (TIA), and cerebral infarction without residual deficits; G47.33 Obstructive sleep apnea (adult) (pediatric); E11.42 Type 2 diabetes mellitus with diabetic polyneuropathy; Z79.84 Long term (current) use of oral hypoglycemic drugs; I11.0 Hypertensive heart disease with heart failure; I25.10 Atherosclerotic heart disease of native coronary artery without angina pectoris; I08.1 Rheumatic disorders of both mitral and tricuspid valves; I48.0 Paroxysmal atrial fibrillation; I50.9 Heart failure, unspecified; I73.00 Raynaud's syndrome without gangrene; J43.9 Emphysema, unspecified; K21.9 Gastro-esophageal reflux disease without esophagitis; K59.00 Constipation, unspecified; M51.36 Other intervertebral disc degeneration, lumbar region; M79.7 Fibromyalgia; R10.30 Lower abdominal pain, unspecified; Z95.828 Presence of other vascular implants and grafts; Z99.81 Dependence on supplemental oxygen; Z92.3 Personal history of irradiation; Z86.14 Personal history of Methicillin resistant Staphylococcus aureus infection; Z79.01 Long term (current) use of anticoagulants; Z79.02 Long term (current) use of antithrombotics/antiplatelets; Z79.51 Long term (current) use of inhaled steroids; Z79.899 Other long term (current) drug therapy; Z82.3 Family history of stroke; Z82.49 Family history of ischemic heart disease and other diseases of the circulatory system; Z82.5 Family history of asthma and other chronic lower respiratory diseases; Z86.718 Personal history of other venous thrombosis and embolism; Z95.5 Presence of coronary angioplasty implant and graft; Z85.118 Personal history of other malignant neoplasm of bronchus and lung
CPT/HCPCS: 33208; 36415; 71046; 71260; 74177; 80048; 80053; 83735; 84443; 84484; 85025; 85610; 85730; 87040; 87070; 87077; 87186; 87205; 87636; 93005; 94640; 94760; 99285

== ENCOUNTER → 2020-10-12 | Outpatient (CLI) | payer MEDICARE, OTHER ==
--- NOTE | 2020-10-12 11:56 | PE ---
EXAMINATION TYPE: PET CT fusion skull to thigh DATE OF EXAM: 10/12/2020 COMPARISON: CT abdomen and pelvis September 24, 2020. CT chest September 22, 2020 HISTORY: Lung cancer. Non-small cell cancer diagnosed and treated 2011. Recent abnormal CT. TECHNIQUE: Following the intravenous administration of 9.63 mCi of F-18 FDG, whole body images are p erformed from the skull base to the midthigh. Images are reviewed on the computer in the coronal, ax ial, and sagittal planes. Reconstructed rotating images are created on independent workstation and r eviewed on the computer. A localization and attenuation correction CT is performed in conjunction w ith the PET scan. Blood glucose level equals 123 SCAN: Initial Scan FINDINGS: SKULL BASE AND NECK: No areas of abnormal hypermetabolic uptake. CHEST, MEDIASTINUM, AND HILAR REGION: There is background Moderate underlying emphysematous change redemonstrated. There are old displaced right posterior late ral mid to lower rib fractures with linear and slightly thickened scarring and soft tissue density. T his area does not show suspicious hypermetabolic uptake to suggest neoplasm. Findings consistent with scarring. No areas of abnormal hypermetabolic uptake. ABDOMEN AND PELVIS: No areas of abnormal hypermetabolic uptake. Normal excretion. Nonspecific bowel u ptake. OSSEOUS STRUCTURES: No areas abnormal hypermetabolic uptake. OTHER CT: Nasal septum deviated to right of midline. Moderate to severe calcified plaque left carotid bulb level. Heart size upper limits of normal with multi lead pacemaker. Cholecystectomy clips. Atherosclerotic ectatic abdominal aorta. Diverticula in the sigmoid colon. Slight grade 1 anterolisthesis L4 and L5. Moderate disc space narrowing L5-S1 level. IMPRESSION: No suspicious hypermetabolic uptake to suggest recurrent or new malignancy. Posttreatment changes are favored.
== END | disposition home or self-care (01) ==
LOC: RADPETMAIN 07:23
PROVIDERS: ATTEND Internal Medicine
DX: C34.81 Malignant neoplasm of overlapping sites of right bronchus and lung (principal); C34.82 Malignant neoplasm of overlapping sites of left bronchus and lung
CPT/HCPCS: 78815; A9552

== ENCOUNTER 2021-05-13 12:42 | Emergency (ER) | payer MEDICARE, OTHER ==
[2021-05-13 13:40] VITALS: BP 146/77; PULSE 70; RESP 18; TEMP 98
== END 2021-05-13 14:50 | disposition left against medical advice (07) ==
LOC: EC 12:42
DX: Z53.21 Procedure and treatment not carried out due to patient leaving prior to being seen by health care provider (principal)
CPT/HCPCS: 87635; 99499

== ENCOUNTER 2022-01-21 16:11 | Observation (INO) | payer MEDICARE, OTHER ==
[2022-01-21 17:28] LABS: INR 1.1 (<1.2); Partial Thromboplastin Time 23.9 sec (22.0-30.0); Prothrombin Time 11.5 sec (9.0-12.0)
--- NOTE | 2022-01-21 17:28 | XR ---
EXAMINATION TYPE: XR chest 2V DATE OF EXAM: 01/21/2022 COMPARISON: 08/06/2021 HISTORY: Short of breath TECHNIQUE: 2 views FINDINGS: There is coarse density over the right midlung field apparently related to old rib fracture s and pulmonary scarring. This appears not significantly different than old exam. Heart size is sanket l. No heart failure. There is left axillary pacemaker. No pleural effusion. Thoracic spine is intact. IMPRESSION: Pleural and pulmonary scarring and old right-sided rib fractures. No acute lung disease. Normal heart.
[2022-01-21 17:29] LABS: Basophils # (A) 0.1 k/uL (0-0.2); Basophils % (A) 1 %; Eosinophils # (A) 0.2 k/uL (0-0.7); Eosinophils % (A) 1 %; HCT 39.7 % (34.0-46.0); Lymphocytes # (A) 2.6 k/uL (1.0-4.8); Lymphocytes % (A) 23 %; MCH 28.9 pg (25.0-35.0); MCHC 32.8 g/dL (31.0-37.0); MCV 88.2 fL (80.0-100.0); Mean Platelet Volume 8.1; Monocytes # (A) 0.7 k/uL (0-1.0); Monocytes % (A) 6 %; Neutrophils # (A) 7.4 k/uL (1.3-7.7); Neutrophils % (A) 67 %; Platelet Count 274 k/uL (150-450); RBC 4.51 m/uL (3.80-5.40); RDW 13.8 % (11.5-15.5); WBC 11.1 k/uL (3.8-10.6)
[2022-01-21 17:30] LABS: ALT 26 U/L (4-34); AST 44 U/L (14-36); African American GFR (CKD) >90 (>60 ml/min/1.73 sqM); Albumin 4.4 g/dL (3.5-5.0); Alkaline Phosphatase 90 U/L (38-126); Anion Gap 11 mmol/L; Blood Urea Nitrogen 12 mg/dL (7-17); Calcium 9.6 mg/dL (8.4-10.2); Carbon Dioxide 32 mmol/L (22-30); Chloride 96 mmol/L (98-107); Glucose 153 mg/dL (74-99); Non-African American GFR(CKD) 82 (>60 ml/min/1.73 sqM); Potassium 2.8 mmol/L (3.5-5.1); Sodium 139 mmol/L (137-145); Total Bilirubin 0.4 mg/dL (0.2-1.3)
--- NOTE | 2022-01-21 18:59 | ED ---
General Adult HPI - General Chief complaint: Shortness of Breath Stated complaint: bowels, thomas Time Seen by Provider: 01/21/22 18:35 Source: patient Mode of arrival: ambulatory Limitations: no limitations - History of Present Illness Initial comments: Dictation was produced using [employer] dictation software. please excuse any grammatical, word or spelling errors. Chief Complaint: 81-year-old female multiple comorbidities presents to the emergency department for 2 days of bowel control issues History of Present Illness: Is a 81-year-old female she presents to the emergency department for chief complaint of bowel control issues. Patient has been evaluated by primary care doctor with orders for outpatient imaging to evaluate the abdomen for diverticulitis and to get a CT of the chest for surveillance of lung cancer. Patient parts that she has worsening back pain. She states that her last 48 hours she has had 2-3 episodes of loss of control. Patient also complains of paresthesias to travel down bilateral lower extremities. Denies any fever, chills or night sweats. No saddle anesthesia. Patient has any abdominal pain. She denies any chest pain or shortness of breath at the bedside. The ROS documented in this emergency department record has been reviewed and confirmed by me. Those systems with pertinent positive or negative responses have been documented in the HPI. All other systems are other negative and/or noncontributory. PHYSICAL EXAM: General Impression: Alert and oriented x3, not in acute distress HEENT: Normocephalic atraumatic, extra-ocular movements intact, pupils equal and reactive to light bilaterally, mucous membranes moist. Cardiovascular: Heart regular rate and rhythm Chest: Able to complete full sentences, no retractions, no tachypnea Abdomen: abdomen soft, non-tender, non-distended, no organomegaly Musculoskeletal: Pulses present and equal in all extremities, no peripheral edema Motor: no focal deficits noted Neurological: CN II-XII grossly intact, no focal motor or sensory deficits noted, no saddle anesthesia Skin: Intact with no visualized rashes Psych: Normal affect and mood ED course: 81-year-old well-appearing female presents emergency department for chief complaint of loss of bowel control. She's had 2-3 episodes of stooling herself unknowingly. Vital signs upon arrival are within acceptable limits. She does not have any other features to clearly diagnose cord compression. She does not have saddle anesthesia. Her back pain is mild though slightly worse an d then her chronic back pain. She does not have any loss of bladder control. Laboratory evaluation obtained. CBC unremarkable. Coag panel is negative. Metabolic panel is within acceptable limits. Lumbar spine CT was ordered showing spinal canal stenosis. Disposition options discussed. Patient is agreeable for observation admission with consultation to spine surgery. Patient admitted to [facility]. EKG interpretation: Ventricular rate 69, atrial paced rhythm,. Weight 1, dressing, QTC 419. No [place] prolongation, no QTC prolongation, no ST or T-wave changes noted. Overall, this EKG is unremarkable - Related Data Home Medications Medication Instructions Recorded Confirmed Pantoprazole Sodium [Protonix] 40 mg PO DAILY 09/23/16 08/06/21 Fluticasone/Umeclidin/Vilanter 1 puff INHALATION RT-DAILY 04/19/20 08/06/21 [Trelegy Ellipta 100-62.5-25] L.acidoph,Paracasei, B.lactis 1 cap PO DAILY 07/12/20 08/06/21 [Probiotic] PARoxetine [Paxil] 20 mg PO DAILY 07/12/20 08/06/21 Cyanocobalamin (Vitamin B-12) 1,000 mcg PO DAILY 08/04/20 08/06/21 [Vitamin B-12] Docusate [Colace] 100 mg PO HS PRN 08/04/20 08/06/21 Metoprolol Succinate (ER) [Toprol 25 mg PO BID 09/22/20 08/06/21 XL] busPIRone HCl [Buspar] 10 mg PO TID 09/22/20 08/06/21 Atorvastatin Calcium [Lipitor] 80 mg PO HS 08/06/21 08/06/21 Cholecalciferol [Vitamin D3 (25 25 mcg PO DAILY 08/06/21 08/06/21 Mcg = 1000 Iu)] Linaclotide [Linzess] 72 mcg PO DAILY PRN 08/06/21 08/06/21 Melatonin [Melatonin ER] 10 mg PO HS PRN 08/06/21 08/06/21 Mirtazapine [Remeron] 7.5 mg PO HS 08/06/21 08/06/21 Vits A,C,E/Lutein/Minerals 1 tab PO DAILY 08/06/21 08/06/21 [Ocuvite with Lutein Tablet] amLODIPine BESYLATE [Norvasc] 2.5 mg PO DAILY 08/06/21 08/06/21 Previous Rx's Medication Instructions Recorded Apixaban [Eliquis] 2.5 mg PO BID tablet 10/02/16 Clopidogrel [Plavix] 75 mg PO DAILY #30 tab 08/10/20 ALPRAZolam [Xanax] 0.25 mg PO DAILY PRN tab 08/09/21 Acetaminophen with Codeine 1 tab PO Q6H PRN 3 Days #1 tab 08/09/21 [Tylenol w/Codeine #4 Tablet] Gabapentin 600 mg PO TID 3 Days #9 tab 08/09/21 metFORMIN HCL ER [Glucophage XR] 500 mg PO W/SUPPER #30 tab 08/09/21 traMADol HCl [Ultram] 50 mg PO Q6HR PRN 3 Days #12 tab 08/09/21 Allergies Allergy/AdvReac Type Severity Reaction Status Date / Time No Known Allergies Allergy Verified 01/21/22 16:33 Review of Systems ROS Statement: Those systems with pertinent positive or pertinent negative responses have been documented in the HPI. ROS Other: All systems not noted in ROS Statement are negative. Past Medical History Past Medical History: Atrial Fibrillation, Cancer, Heart Failure, COPD, CVA/TIA, Diabetes Mellitus, Deep Vein Thrombosis (DVT), Fibromyalgia, GERD/Reflux, Hyperlipidemia, Hypertension, Osteoarthritis (OA), Pneumonia, Sleep Apnea/CPAP/BIPAP, Vascular Disorder Additional Past Medical History / Comment(s): back pain , lung cancer-radiation opnly, HOME 02 2 LITERS N/[place], BLOOD CLOT AFTER SX, CVA LT SIDE AFFECTED SINCE RESOLVED, HIATAL HERNIA. SHINGLES 30 YEARS AGO, DOES'NT USE CPAP MACHINE.in past for short period of time took oral meds for dm-then taken off meds-pt stated not considered diabetic now but occ will check bs., macular degeneration.past broken rt leg and lt wrist. Raynauds. Pt currently has 3 fractured ribs on the right that she has "had for years and will not heal". History of Any Multi-Drug Resistant Organisms: MRSA Date of last positivie culture/infection: 09/25/16 MDRO Source:: BRONCH WASH Past Surgical History: Cholecystectomy, Heart Catheterization With Stent, Orthopedic Surgery Additional Past Surgical History / Comment(s): rt leg repaired after break-has pins, lt wrist-plate and screws. lung bx, stents tung groins. Past Anesthesia/Blood Transfusion Reactions: Family History of Problems w/ Anesthesia Additional Past Anesthesia/Blood Transfusion Reaction / Comment(s): daughter has diff waking after aa Date of Last Stent Placement:: unk Past Psychological History: Depression Smoking Status: Former smoker Past Alcohol Use History: Rare Past Drug Use History: None Reported - Past Family History Father Family Medical History: Congestive Heart Failure (CHF), COPD Additional Family Medical History / Comment(s): emphysema Mother Family Medical History: Cancer General Exam Limitations: no limitations Course Vital Signs 01/21/22 01/21/22 16:28 18:33 Temperature 97.8 F Pulse Rate 69 74 Respiratory 20 16 Rate Blood Pressure 149/79 175/79 O2 Sat by Pulse 98 100 Oximetry Medical Decision Making - Lab Data Result diagrams: 01/21/22 16:42 01/21/22 16:42 Lab Results 01/21/22 01/21/22 01/21/22 Range/Units 16:42 16:42 16:42 WBC 11.1 H (3.8-10.6) k/uL RBC 4.51 (3.80-5.40) m/uL Hgb 13.0 (11.4-16.0) gm/dL Hct 39.7 (34.0-46.0) % MCV 88.2 (80.0-100.0) fL MCH 28.9 (25.0-35.0) pg MCHC 32.8 (31.0-37.0) g/dL RDW 13.8 (11.5-15.5) % Plt Count 274 (150-450) k/uL MPV 8.1 Neutrophils % 67 % Lymphocytes % 23 % Monocytes % 6 % Eosinophils % 1 % Basophils % 1 % Neutrophils # 7.4 (1.3-7.7) k/uL Lymphocytes # 2.6 (1.0-4.8) k/uL Monocytes # 0.7 (0-1.0) k/uL Eosinophils # 0.2 (0-0.7) k/uL Basophils # 0.1 (0-0.2) k/uL PT 11.5 (9.0-12.0) sec INR 1.1 (<1.2) APTT 23.9 (22.0-30.0) sec Sodium 139 (137-145) mmol/L Potassium 2.8 L (3.5-5.1) mmol/L Chloride 96 L (98-107) mmol/L Carbon Dioxide 32 H (22-30) mmol/L Anion Gap 11 mmol/L BUN 12 (7-17) mg/dL Creatinine 0.68 (0.52-1.04) mg/dL Est GFR (CKD-EPI)AfAm >90 (>60 ml/min/1.73 sqM) Est GFR (CKD-EPI)NonAf 82 (>60 ml/min/1.73 sqM) Glucose 153 H (74-99) mg/dL Plasma Lactic Acid Imer (0.7-2.0) mmol/L Calcium 9.6 (8.4-10.2) mg/dL Total Bilirubin 0.4 (0.2-1.3) mg/dL AST 44 H (14-36) U/L ALT 26 (4-34) U/L Alkaline Phosphatase 90 (38-126) U/L Troponin I (0.000-0.034) ng/mL NT-Pro-B Natriuret Pep pg/mL Total Protein 7.0 (6.3-8.2) g/dL Albumin 4.4 (3.5-5.0) g/dL 01/21/22 01/21/22 01/21/22 Range/Units 16:42 16:42 16:42 WBC (3.8-10.6) k/uL RBC (3.80-5.40) m/uL Hgb (11.4-16.0) gm/dL Hct (34.0-46.0) % MCV (80.0-100.0) fL MCH (25.0-35.0) pg MCHC (31.0-37.0) g/dL RDW (11.5-15.5) % Plt Count (150-450) k/uL MPV Neutrophils % % Lymphocytes % % Monocytes % % Eosinophils % % Basophils % % Neutrophils # (1.3-7.7) k/uL Lymphocytes # (1.0-4.8) k/uL Monocytes # (0-1.0) k/uL Eosinophils # (0-0.7) k/uL Basophils # (0-0.2) k/uL PT (9.0-12.0) sec INR (<1.2) APTT (22.0-30.0) sec Sodium (137-145) mmol/L Potassium (3.5-5.1) mmol/L Chloride (98-107) mmol/L Carbon Dioxide (22-30) mmol/L Anion Gap mmol/L BUN (7-17) mg/dL Creatinine (0.52-1.04) mg/dL Est GFR (CKD-EPI)AfAm (>60 ml/min/1.73 sqM) Est GFR (CKD-EPI)NonAf (>60 ml/min/1.73 sqM) Glucose (74-99) mg/dL Plasma Lactic Acid Imer 1.2 (0.7-2.0) mmol/L Calcium (8.4-10.2) mg/dL Total Bilirubin (0.2-1.3) mg/dL AST (14-36) U/L ALT (4-34) U/L Alkaline Phosphatase (38-126) U/L Troponin I <0.012 (0.000-0.034) ng/mL NT-Pro-B Natriuret Pep 275 pg/mL Total Protein (6.3-8.2) g/dL Albumin (3.5-5.0) g/dL Disposition Clinical Impression: Back pain Disposition: ADMITTED IP TO THIS [facility] Condition: Fair Referrals: Nohemi Estrada MD [Primary Care Provider] - 1-2 days Decision Time: 20:00
--- NOTE | 2022-01-21 19:30 | CT ---
EXAMINATION TYPE: CT lumbar spine wo con DATE OF EXAM: 01/21/2022 COMPARISON: 09/24/2020 HISTORY: Low back pain. Loss of bowel/bladder control. CT DLP: 636.8 mGycm Automated exposure control for dose reduction was used. Images obtained from T12 to S3 vertebra with no contrast. A L4-5 first-degree spondylolisthesis. There is no spondylolysis. There is disc space narrowing at L4 -5 and L5-S1. No lumbar compression fracture. There is osteopenia. There is no lumbar paraspinal mass . Sacroiliac joints are intact. There is facet arthropathy and ligament thickening with resultant spi nal stenosis at L4-5. IMPRESSION: Spondylotic changes in the lower lumbar spine. There is first degree L4-5 spondylolisthesis. There is some spinal stenosis at L4-5 due to subluxation and ligament thickening. No fracture seen. No signif icant change compared to the old exam.
[2022-01-21] MEDS ORDERED: NALOXONE 0.4 MG/ML 1 ML VIAL IV PRN (19:54)
[2022-01-21] MEDS: SODIUM CHLORIDE 0.9% 1,000 ML IV SCH (23:51)
[2022-01-22] MEDS ORDERED: ACETAMINOPHEN TAB 500 MG TAB PO STA (02:35)
[2022-01-22] MEDS ORDERED: metFORMIN 500 MG TAB PO PRN (07:34)
[2022-01-22] MEDS ORDERED: busPIRone HCl 10 MG TAB PO PRN (07:34)
[2022-01-22] MEDS ORDERED: Magnesium Replacement Protocol 1 EACH MISC MISCELLANE PRN (07:37)
[2022-01-22] MEDS ORDERED: Potassium Replacement Protocol 1 EACH MISC MISCELLANE PRN (07:37)
[2022-01-22] MEDS ORDERED: IPRATROPIUM-ALBUTEROL 3 ML NEB INHALATION PRN (07:44)
[2022-01-22] MEDS ORDERED: IPRATROPIUM-ALBUTEROL 3 ML NEB INHALATION STA (07:44)
[2022-01-22] MEDS ORDERED: DEXAMETHASONE SOD PHOSPHATE 10 MG/ML 1 ML VIAL IVP STA (07:45)
--- NOTE | 2022-01-22 07:47 | P.HPIM ---
History of Present Illness This is a pleasant 81 years old female with past medical history of hypertension, hyperlipidemia, type 2 diabetes mellitus and diabetic neuropathy and atrial fibrillation on liquids. History of CVA/TIA and the venous thrombosis, fibromyalgia, GERD, osteoarthritis, sleep apnea, chronic back pain, history of lung cancer status post radiation only, on home oxygen, hiatal hernia, coronary artery disease status post stent placement Patient presents because of worsening low back pain for last 2 months and lately she noticed a couple times she lost control of her stool once while she was standing at the sink and once while she was lying in bed. She describes it back pain as sharp, lower back, radiates to the right groin and sometimes further. Increased by movement and sometimes prevents her from standing, pain got worse when she stands for prolonged or sits for too long, however today she could stand up by herself and walk for 2 steps back and forth. She was noticed also her gait has becoming wobbly for the last month She went to see her PCP Dr. Muñoz on 01/14 who prescribed her antibiotic to send her for CT scan including CT of the chest and she's been complaining from some exertional dyspnea. Patient has history of sleep apnea and she follows up with Dr. Justin, she is on 2 L oxygen via nasal cannula. She denies smoking, also tracks and occasional drink alcohol She denies any dysuria or urgency or change in frequency, no loss of control of urine, no numbness in legs, no saddle anesthesia, she denies headache, sometimes she feels dizzy but not now. No chest pain. No tachypnea was noticed at rest, she complains from occasional dry cough. No diarrhea, no vomiting. She complains from chronic abdominal pain in the epigastrium, not worsening for the last 4-6 month, she says she had shingles at that time Vitas looks stable, blood pressure is slightly high site. Patient is saturating 98.200% on 2 L oxygen via nasal cannula Labs reviewed, patient has mild leukocytosis at 11.1. Rest of CBC Is unremark able. INR is 1.1 Sodium normal at 139 potassium low at 2.8 Creatinine normal 0.8 Glucose 153 Liver enzymes ELEVATED significantly only AST at 44, ALT normal at 26. Bilirubin normal. Troponin negative, proBNP 27 5. EKG: Showed atrial paced rhythm at 69, No significant ST-T changes chest x-ray: No acute process. Pleural and pulmonary scarring and old right- sided rib fracture. Normal heart Lumbar spine CT without contrast: spondylitic changes in the lower lumbar spine. There is first-degree at L4-5 spondylolisthesis . There is some spinal stenosis at L4-5 due to subluxation and ligamentous thickening. No fracture. No significant change from old exam Review of Systems Review of systems CONSTITUTIONAL: No fever, no malaise, no fatigue. HEENT: No recent visual problems or hearing problems. Denied any sore throat. CARDIOVASCULAR: No orthopnea, PND, no palpitations, no syncope. PULMONARY: No shortness of breath, no cough, no hemoptysis. GASTROINTESTINAL: No diarrhea, no nausea, no vomiting. Normoactive bowel sounds. -NEUROLOGICAL: No headaches, no weakness, no numbness. Except what is mentioned above HEMATOLOGICAL: Denies any bleeding or petechiae. GENITOURINARY: Denies any burning micturition, frequency, or urgency. MUSCULOSKELETAL/RHEUMATOLOGICAL: Denies any joint pain, swelling, or any muscle pain. ENDOCRINE: Denies any polyuria or polydipsia. Past Medical History Past Medical History: Atrial Fibrillation, Cancer, Heart Failure, COPD, CVA/TIA, Diabetes Mellitus, Deep Vein Thrombosis (DVT), Fibromyalgia, GERD/Reflux, Hyperlipidemia, Hypertension, Osteoarthritis (OA), Pneumonia, Sleep Apnea/CPAP/BIPAP, Vascular Disorder Additional Past Medical History / Comment(s): back pain , lung cancer-radiation opnly, HOME 02 2 LITERS [place], BLOOD CLOT AFTER SX, CVA LT SIDE AFFECTED SINCE RESOLVED, HIATAL HERNIA. SHINGLES 30 YEARS AGO, DOES'NT USE CPAP MACHINE.in past for short period of time took oral meds for dm-then taken off meds-pt stated not considered diabetic now but occ will check bs., macular degeneration.past broken rt leg and lt wrist. Raynauds. Pt currently has 3 fractured ribs on the right that she has "had for years and will not heal". History of Any Multi-Drug Resistant Organisms: MRSA Date of last positivie culture/infection: 09/25/16 MDRO Source:: BRONCH WASH Past Surgical History: Cholecystectomy, Heart Catheterization With Stent, Orthopedic Surgery Additional Past Surgical History / Comment(s): rt leg repaired after break-has pins, lt wrist-plate and screws. lung bx, stents tung groins. Past Anesthesia/Blood Transfusion Reactions: Family History of Problems w/ Anesthesia Additional Past Anesthesia/Blood Transfusion Reaction / Comment(s): daughter has diff waking after aa Date of Last Stent Placement:: unk Past Psychological History: Depression Smoking Status: Former smoker Past Alcohol Use History: Rare Past Drug Use History: None Reported - Past Family History Father Family Medical History: Congestive Heart Failure (CHF), COPD Additional Family Medical History / Comment(s): emphysema Mother Family Medical History: Cancer Medications and Allergies Home Medications Medication Instructions Recorded Confirmed Type Pantoprazole Sodium [Protonix] 40 mg PO DAILY 09/23/16 01/21/22 History Apixaban [Eliquis] 2.5 mg PO BID tablet 10/02/16 01/21/22 Rx Fluticasone/Umeclidin/Vilanter 1 puff INHALATION RT-DAILY 04/19/20 01/21/22 History [Trelegy Ellipta 100-62.5-25] L.acidoph,Paracasei, B.lactis 1 cap PO DAILY 07/12/20 01/21/22 History [Probiotic] PARoxetine [Paxil] 20 mg PO DAILY 07/12/20 01/21/22 History Clopidogrel [Plavix] 75 mg PO DAILY #30 tab 08/10/20 01/21/22 Rx Metoprolol Succinate (ER) [Toprol 25 mg PO BID 09/22/20 01/21/22 History XL] busPIRone HCl [Buspar] 10 mg PO TID PRN 09/22/20 01/21/22 History Atorvastatin Calcium [Lipitor] 80 mg PO HS 08/06/21 01/21/22 History Cholecalciferol [Vitamin D3 (25 25 mcg PO DAILY 08/06/21 01/21/22 History Mcg = 1000 Iu)] Mirtazapine [Remeron] 7.5 mg PO HS 08/06/21 01/21/22 History Vits A,C,E/Lutein/Minerals 1 tab PO DAILY 08/06/21 01/21/22 History [Ocuvite with Lutein Tablet] amLODIPine BESYLATE [Norvasc] 2.5 mg PO DAILY 08/06/21 01/21/22 History Gabapentin 600 mg PO TID 3 Days #9 tab 08/09/21 01/21/22 Rx traMADol HCl [Ultram] 50 mg PO Q6HR PRN 3 Days #12 tab 08/09/21 01/21/22 Rx Furosemide [Lasix] 20 mg PO DAILY 01/21/22 01/21/22 History Levalbuterol Nebulized (Unknown 1 dose INHALATION DIRECTED 01/21/22 01/21/22 History Strength) Levofloxacin [Levaquin] 500 mg PO DAILY 01/21/22 01/21/22 History metFORMIN HCL ER [Glucophage XR] 500 mg PO DAILY PRN 01/21/22 01/21/22 History metroNIDAZOLE [Flagyl] 500 mg PO TID 01/21/22 01/21/22 History Allergies Allergy/AdvReac Type Severity Reaction Status Date / Time No Known Allergies Allergy Verified 01/21/22 20:40 Physical Exam Vitals: Vital Signs Temp Pulse Resp BP Pulse Ox 01/21/22 21:00 81 18 167/79 97 01/21/22 18:33 74 16 175/79 100 01/21/22 16:28 97.8 F 69 20 149/79 98 Intake and Output 01/21/22 01/21/22 01/22/22 14:59 22:59 06:59 Other: Weight 52.163 kg GENERAL: The patient is alert and oriented x3, not in any acute distress. Well developed, well nourished. HEENT: Pupils are round and equally reacting to light. EOMI. No scleral icterus. No conjunctival pallor. Normocephalic, atraumatic. No pharyngeal erythema. No thyromegaly. CARDIOVASCULAR: S1 and S2 present. No murmurs, rubs, or gallops. PULMONARY: Chest is clear to auscultation, no wheezing or crackles. -ABDOMEN: Soft, mild epigastric tenderness, guarding, no rebound tenderness, nondistended, normoactive bowel sounds. No palpable organomegaly. MUSCULOSKELETAL: No joint swelling or deformity. EXTREMITIES: No cyanosis, clubbing, or pedal edema. NEUROLOGICAL: Gross neurological examination did not reveal any focal deficits. SKIN: No rashes. no petechiae. -Gait: Patient could walk on her own, with a slight limp in Results CBC & Chem 7: 01/21/22 16:42 01/21/22 16:42 Labs: Abnormal Lab Results - Last 24 Hours (Table) 01/21/22 01/21/22 Range/Units 16:42 16:42 WBC 11.1 H (3.8-10.6) k/uL Potassium 2.8 L (3.5-5.1) mmol/L Chloride 96 L (98-107) mmol/L Carbon Dioxide 32 H (22-30) mmol/L Glucose 153 H (74-99) mg/dL AST 44 H (14-36) U/L Assessment and Plan Assessment: Acute and chronic back pain Bowel incontinence Chronic abdominal pain, mainly in the epigastrium for 4-6 months Hypertension Hyperlipidemia Diabetes mellitus COPD with mild exacerbation Coronary artery disease status post a stent Atrial fibrillation on liquids Diabetic neuropathy History of CVA History of the venous thrombosis Fibromyalgia History of GERD History of osteoarthritis History of sleep apnea Chronic back pain History of lung cancer status post radiation only Chronic hypoxic respiratory failure on home oxygen Plan: this is a pleasant 81 years old female who presents with back pain, bowel problem and abdominal pain Orthopedic team consulted, we will follow up the recommendation Pain management Hold Levaquin and Flagyl now she was taken at home. Consults surgery team for abdominal pain and bowel problem Start patient on inhaled steroids, bronchodilator and dexamethasone 1 DVT prophylaxis: Eliquis and Plavix are on hold until cleared for no surgical intervention GI prophylaxis: Protonix PT/OT evaluation Prognosis is guarded
[2022-01-22 08:01] LABS: Basophils # (A) 0.1 k/uL (0-0.2); Basophils % (A) 1 %; Eosinophils # (A) 0.3 k/uL (0-0.7); Eosinophils % (A) 5 %; HCT 38.9 % (34.0-46.0); HGB 12.3 gm/dL (11.4-16.0); Lymphocytes # (A) 2.2 k/uL (1.0-4.8); Lymphocytes % (A) 32 %; MCH 28.3 pg (25.0-35.0); MCHC 31.5 g/dL (31.0-37.0); MCV 89.9 fL (80.0-100.0); Mean Platelet Volume 8.3; Monocytes # (A) 0.6 k/uL (0-1.0); Monocytes % (A) 9 %; Neutrophils # (A) 3.5 k/uL (1.3-7.7); Neutrophils % (A) 51 %; Platelet Count 231 k/uL (150-450); RBC 4.33 m/uL (3.80-5.40); RDW 13.8 % (11.5-15.5); WBC 6.8 k/uL (3.8-10.6)
[2022-01-22 08:22] LABS: ALT 22 U/L (4-34); AST 34 U/L (14-36); African American GFR (CKD) >90 (>60 ml/min/1.73 sqM); Albumin 3.9 g/dL (3.5-5.0); Albumin/Globulin Ratio 1.7; Alkaline Phosphatase 83 U/L (38-126); Anion Gap 7 mmol/L; Bilirubin,Unconjugated 0.3 mg/dL (0.0-1.1); Blood Urea Nitrogen 13 mg/dL (7-17); Calcium 9.1 mg/dL (8.4-10.2); Carbon Dioxide 35 mmol/L (22-30); Chloride 95 mmol/L (98-107); Globulin 2.3 g/dL; Glucose 236 mg/dL (74-99); Magnesium 1.5 mg/dL (1.6-2.3); Non-African American GFR(CKD) 81 (>60 ml/min/1.73 sqM); Potassium 3.9 mmol/L (3.5-5.1); Sodium 137 mmol/L (137-145); Total Bilirubin 0.4 mg/dL (0.2-1.3); Total Protein 6.2 g/dL (6.3-8.2)
[2022-01-22] MEDS: METOPROLOL SUCCINATE (ER) 25 MG TAB.ER.24H PO SCH ×2 (08:32→19:53)
[2022-01-22] MEDS: CHOLECALCIFEROL 25 MCG (1000 IU) TABLET PO SCH (08:32)
[2022-01-22] MEDS: FUROSEMIDE 20 MG TAB PO SCH (08:32)
[2022-01-22] MEDS: traMADol 50 MG TAB PO PRN (08:33)
[2022-01-22] MEDS: amLODIPine 2.5 MG TAB PO SCH (08:33)
[2022-01-22] MEDS: LACTOBACILLUS ACIDOPH & BULGAR 1 EACH PACKET PO SCH (08:34)
[2022-01-22] MEDS: PARoxetine 20 MG TAB PO SCH (08:36)
[2022-01-22] MEDS: SYMBICORT 160-4.5 MCG INHALER INHALATION SCH ×2 (09:29→19:26)
[2022-01-22] MEDS ORDERED: MAGNESIUM SULFATE-D5W PMX 1 GM in DEXTROSE/WATER 1 100ML.BAG IVPB ONE (11:17)
[2022-01-22 11:39] LABS: Glucose,Whole Blood 253 mg/dL (70-110)
--- NOTE | 2022-01-22 11:51 | P.HPOR ---
History of Present Illness H&P Date: 01/22/22 Chief Complaint: Low back pain History of Presenting Illness Patient is a pleasant 81-year-old female who presents to the emergency department with complaint of bowel control issues. Patient has seen her PCP Dr. Estrada and has been being worked up for colitis. Our services were consulted for complaint of low back pain. She describes the back pain as intermittent sharp pain that radiates to the right groin. Her symptoms are exacerbated by sitting or standing for periods of time. Patient states her symptoms are worse in the morning, states she has difficulty getting up out of bed but once she gets moving she is okay. She was able to stand up by herself and walk back and forth along stretcher. Patient states that over the past month her gait seems to be unsteady. She states she does have a walker at home and she will be utilizing this when up and about. Patient denies any loss of bladder, she does state she has had recent incontinence of stool. Patient denies any saddle anesthesia, peroneal or bilateral lower extremity numbness or tingling. Review of Systems Pertinent positives and negatives as discussed in HPI, a complete review of systems was performed and all other systems are negative. Physical Examination General: The patient is awake and alert, in no acute distress Skin: Skin is warm and dry with no obvious rashes or lesions. Hairy patches absent, no dorsal skin dimples, no cafe au lait spots, and no surgical incisions. Eye: Pupils are equal, round and reactive to light, extra-ocular movements are intact; there is normal conjunctiva bilaterally. Neck: The neck is supple, there is no tenderness and ROM intact. Cardiovascular: There is a regular rate and rhythm. No murmur, rub or gallop is appreciated. Respiratory: Lungs are clear to auscultation, respirations are non-labored, breath sounds are equal. Gastrointestinal: Soft, non-distended, non-tender abdomen. Back: There is no tenderness to palpation in the midline, paralumbar, parathoracic or buttocks region. There is no obvious deformity. Musculoskeletal: ROM limited secondary to pain and stiffness from surgical procedure. Shoulder abduction 5/5, elbow flexors 5/5, wrist dorsiflexors 5/5. finger abductor 5/5, last dipper 5/5, hip flexor 5/5, knee flexor 5/5, ankle dorsiflexor 5/5, ankle plantarflexion 5/5 and extensor hallucis 5/5. Neurological: CN 2-12 intact. There are no obvious motor or sensory deficits. Movement and coordination equal and intact. Sensory exam to light touch intact C5-T1 and intact from L2-S1. Reflexes 2/4 in bilateral upper and lower extremities. Negative Hoffmans, babinski, and clonus signs. Psychiatric: Cooperative, appropriate mood & affect, normal judgment. Assessment and Plan CT of the lumbar spine shows chronic spondylitic changes. Grade 1 spondyloli sthesis L4 onto L5. No acute osseous abnormalities. 1. Chronic low back pain 2. Grade 1 spondylolisthesis L4 onto L5 Recommend conservative treatment at this time no surgical intervention required. -Pain management -Follow up in clinic outpatient as needed. Patient is cleared from orthopedic standpoint. Thank you for consult, do not hesitate to contact our service for any questions or concerns. I reviewed and discussed this case with my attending Dr. Mcknight, whom has reviewed this chart and films and is in agreement with assessment and plan of care as outlined above. I have personally seen and examined the patient, performed the documentation and the assessment and plan as written. Number of minutes spent on the visit: 30m . Past Medical History Past Medical History: Atrial Fibrillation, Cancer, Heart Failure, COPD, CVA/TIA, Diabetes Mellitus, Deep Vein Thrombosis (DVT), Fibromyalgia, GERD/Reflux, Hyperlipidemia, Hypertension, Osteoarthritis (OA), Pneumonia, Sleep Apnea/CPAP/BIPAP, Vascular Disorder Additional Past Medical History / Comment(s): back pain , lung cancer-radiation opnly, HOME 02 2 LITERS N/C, BLOOD CLOT AFTER SX, CVA LT SIDE AFFECTED SINCE RESOLVED, HIATAL HERNIA. SHINGLES 30 YEARS AGO, DOES'NT USE CPAP MACHINE.in past for short period of time took oral meds for dm-then taken off meds-pt stated not considered diabetic now but occ will check bs., macular degeneration.past broken rt leg and lt wrist. Raynauds. Pt currently has 3 fractured ribs on the right that she has "had for years and will not heal". History of Any Multi-Drug Resistant Organisms: MRSA Date of last positivie culture/infection: 09/25/16 MDRO Source:: BRONCH WASH Past Surgical History: Cholecystectomy, Heart Catheterization With Stent, Orthopedic Surgery Additional Past Surgical History / Comment(s): rt leg repaired after break-has pins, lt wrist-plate and screws. lung bx, stents tung groins. Past Anesthesia/Blood Transfusion Reactions: Family History of Problems w/ Anesthesia Additional Past Anesthesia/Blood Transfusion Reaction / Comment(s): daughter has diff waking after aa Date of Last Stent Placement:: unk Past Psychological History: Depression Smoking Status: Former smoker Past Alcohol Use History: Rare Past Drug Use History: None Reported - Past Family History Father Family Medical History: Congestive Heart Failure (CHF), COPD Additional Family Medical History / Comment(s): emphysema Mother Family Medical History: Cancer Medications and Allergies Home Medications Medication Instructions Recorded Confirmed Type Pantoprazole Sodium [Protonix] 40 mg PO DAILY 09/23/16 01/21/22 History Apixaban [Eliquis] 2.5 mg PO BID tablet 10/02/16 01/21/22 Rx Fluticasone/Umeclidin/Vilanter 1 puff INHALATION RT-DAILY 04/19/20 01/21/22 History [Trelegy Ellipta 100-62.5-25] L.acidoph,Paracasei, B.lactis 1 cap PO DAILY 07/12/20 01/21/22 History [Probiotic] PARoxetine [Paxil] 20 mg PO DAILY 07/12/20 01/21/22 History Clopidogrel [Plavix] 75 mg PO DAILY #30 tab 08/10/20 01/21/22 Rx Metoprolol Succinate (ER) [Toprol 25 mg PO BID 09/22/20 01/21/22 History XL] busPIRone HCl [Buspar] 10 mg PO TID PRN 09/22/20 01/21/22 History Atorvastatin Calcium [Lipitor] 80 mg PO HS 08/06/21 01/21/22 History Cholecalciferol [Vitamin D3 (25 25 mcg PO DAILY 08/06/21 01/21/22 History Mcg = 1000 Iu)] Mirtazapine [Remeron] 7.5 mg PO HS 08/06/21 01/21/22 History Vits A,C,E/Lutein/Minerals 1 tab PO DAILY 08/06/21 01/21/22 History [Ocuvite with Lutein Tablet] amLODIPine BESYLATE [Norvasc] 2.5 mg PO DAILY 08/06/21 01/21/22 History Gabapentin 600 mg PO TID 3 Days #9 tab 08/09/21 01/21/22 Rx traMADol HCl [Ultram] 50 mg PO Q6HR PRN 3 Days #12 tab 08/09/21 01/21/22 Rx Furosemide [Lasix] 20 mg PO DAILY 01/21/22 01/21/22 History Levofloxacin [Levaquin] 500 mg PO DAILY 01/21/22 01/21/22 History metFORMIN HCL ER [Glucophage XR] 500 mg PO DAILY PRN 01/21/22 01/21/22 History metroNIDAZOLE [Flagyl] 500 mg PO TID 01/21/22 01/21/22 History levalbuterol HCL 1.25 mg INHALATION RT-QID 01/22/22 01/22/22 History Allergies Allergy/AdvReac Type Severity Reaction Status Date / Time No Known Allergies Allergy Verified 01/21/22 20:40 Results - Labs Labs: Abnormal Lab Results - Last 24 Hours (Table) 01/21/22 01/21/22 01/22/22 Range/Units 16:42 16:42 07:46 WBC 11.1 H (3.8-10.6) k/uL Potassium 2.8 L (3.5-5.1) mmol/L Chloride 96 L 95 L (98-107) mmol/L Carbon Dioxide 32 H 35 H (22-30) mmol/L Glucose 153 H 236 H (74-99) mg/dL Magnesium 1.5 L (1.6-2.3) mg/dL AST 44 H (14-36) U/L Total Protein 6.2 L (6.3-8.2) g/dL H & H 01/21/22 01/22/22 Range/Units 16:42 07:46 Hgb 13.0 12.3 (11.4-16.0) gm/dL Hct 39.7 38.9 (34.0-46.0) % Coagulation 01/21/22 Range/Units 16:42 INR 1.1 (<1.2) Result Diagrams: 01/22/22 07:46 01/22/22 07:46
--- NOTE | 2022-01-22 12:00 | XR ---
EXAMINATION TYPE: XR KUB portable DATE OF EXAM: 01/22/2022 COMPARISON: None INDICATION: Abdomen pain TECHNIQUE: Single view abdomen supine view FINDINGS: There is a normal bowel gas pattern. Fecal debris is the descending colon. Psoas margins are normal. No organomegaly is present. Degenerative changes are at the right. IMPRESSION: 1. Mild fecal retention descending colon
--- NOTE | 2022-01-22 12:24 | P.GSCN ---
History of Present Illness Consult date: 01/22/22 Reason for Consult: Back pain, fecal incontinence History of present illness: This is an 81-year-old female who's had chronic point of back pain. Patient is also had some lower abdominal pain. She states she's had some episodes of fecal incontinence this week. Currently she denies any significant abdominal pain. Past Medical History Past Medical History: Atrial Fibrillation, Cancer, Heart Failure, COPD, CVA/TIA, Diabetes Mellitus, Deep Vein Thrombosis (DVT), Fibromyalgia, GERD/Reflux, Hyperlipidemia, Hypertension, Osteoarthritis (OA), Pneumonia, Sleep Apnea/CPAP/BIPAP, Vascular Disorder Additional Past Medical History / Comment(s): back pain , lung cancer-radiation opnly, HOME 02 2 LITERS [place], BLOOD CLOT AFTER SX, CVA LT SIDE AFFECTED SINCE RESOLVED, HIATAL HERNIA. SHINGLES 30 YEARS AGO, DOES'NT USE CPAP MACHINE.in past for short period of time took oral meds for dm-then taken off meds-pt stated not considered diabetic now but occ will check bs., macular degeneration.past broken rt leg and lt wrist. Raynauds. Pt currently has 3 fractured ribs on the right th at she has "had for years and will not heal". History of Any Multi-Drug Resistant Organisms: MRSA Year Discovered:: 09/25/16 MDRO Source:: BRONCH WASH Past Surgical History: Cholecystectomy, Heart Catheterization With Stent, Orthopedic Surgery Additional Past Surgical History / Comment(s): rt leg repaired after break-has pins, lt wrist-plate and screws. lung bx, stents tung groins. Past Anesthesia/Blood Transfusion Reactions: Family History of Problems w/ Anesthesia Additional Past Anesthesia/Blood Transfusion Reaction / Comm: daughter has diff waking after aa Date of Last Stent Placement:: unk Type of Cardiac Device: Permanent Pacemaker Device Placement Date:: 09/25/20 Past Psychological History: Depression Smoking Status: Former smoker Past Alcohol Use History: Rare Past Drug Use History: None Reported - Past Family History Father Family Medical History: Congestive Heart Failure (CHF), COPD Additional Family Medical History / Comment(s): emphysema Mother Family Medical History: Cancer Medications and Allergies Home Medications Medication Instructions Recorded Confirmed Type Pantoprazole Sodium [Protonix] 40 mg PO DAILY 09/23/16 01/21/22 History Apixaban [Eliquis] 2.5 mg PO BID tablet 10/02/16 01/21/22 Rx Fluticasone/Umeclidin/Vilanter 1 puff INHALATION RT-DAILY 04/19/20 01/21/22 History [Trelegy Ellipta 100-62.5-25] L.acidoph,Paracasei, B.lactis 1 cap PO DAILY 07/12/20 01/21/22 History [Probiotic] PARoxetine [Paxil] 20 mg PO DAILY 07/12/20 01/21/22 History Clopidogrel [Plavix] 75 mg PO DAILY #30 tab 08/10/20 01/21/22 Rx Metoprolol Succinate (ER) [Toprol 25 mg PO BID 09/22/20 01/21/22 History XL] busPIRone HCl [Buspar] 10 mg PO TID PRN 09/22/20 01/21/22 History Atorvastatin Calcium [Lipitor] 80 mg PO HS 08/06/21 01/21/22 History Cholecalciferol [Vitamin D3 (25 25 mcg PO DAILY 08/06/21 01/21/22 History Mcg = 1000 Iu)] Mirtazapine [Remeron] 7.5 mg PO HS 08/06/21 01/21/22 History Vits A,C,E/Lutein/Minerals 1 tab PO DAILY 08/06/21 01/21/22 History [Ocuvite with Lutein Tablet] amLODIPine BESYLATE [Norvasc] 2.5 mg PO DAILY 08/06/21 01/21/22 History Gabapentin 600 mg PO TID 3 Days #9 tab 08/09/21 01/21/22 Rx traMADol HCl [Ultram] 50 mg PO Q6HR PRN 3 Days #12 tab 08/09/21 01/21/22 Rx Furosemide [Lasix] 20 mg PO DAILY 01/21/22 01/21/22 History Levofloxacin [Levaquin] 500 mg PO DAILY 01/21/22 01/21/22 History metFORMIN HCL ER [Glucophage XR] 500 mg PO DAILY PRN 01/21/22 01/21/22 History metroNIDAZOLE [Flagyl] 500 mg PO TID 01/21/22 01/21/22 History levalbuterol HCL 1.25 mg INHALATION RT-QID 01/22/22 01/22/22 History Allergies Allergy/AdvReac Type Severity Reaction Status Date / Time No Known Allergies Allergy Verified 01/21/22 20:40 Surgical - Exam Vital Signs Temp Pulse Resp BP Pulse Ox 97.8 F 69 20 149/79 98 01/21/22 16:28 01/21/22 16:28 01/21/22 16:28 01/21/22 16:28 01/21/22 16:28 - General well developed, well nourished, no distress - Eyes PERRL - ENT normal pinna - Neck no masses - Respiratory normal expansion - Cardiovascular Rhythm: regular - Abdomen Abdomen: soft, non tender Results - Labs 01/22/22 07:46 01/22/22 07:46 Abnormal Lab Results - Last 24 Hours (Table) 01/21/22 01/21/22 01/22/22 Range/Units 16:42 16:42 07:46 WBC 11.1 H (3.8-10.6) k/uL Potassium 2.8 L (3.5-5.1) mmol/L Chloride 96 L 95 L (98-107) mmol/L Carbon Dioxide 32 H 35 H (22-30) mmol/L Glucose 153 H 236 H (74-99) mg/dL POC Glucose (mg/dL) (70-110) mg/dL Hemoglobin A1c (0.0-6.0) % Magnesium 1.5 L (1.6-2.3) mg/dL AST 44 H (14-36) U/L Total Protein 6.2 L (6.3-8.2) g/dL Procalcitonin (0.02-0.09) ng/mL 01/22/22 01/22/22 01/22/22 Range/Units 07:46 07:46 11:32 WBC (3.8-10.6) k/uL Potassium (3.5-5.1) mmol/L Chloride (98-107) mmol/L Carbon Dioxide (22-30) mmol/L Glucose (74-99) mg/dL POC Glucose (mg/dL) 253 H (70-110) mg/dL Hemoglobin A1c 7.9 H (0.0-6.0) % Magnesium (1.6-2.3) mg/dL AST (14-36) U/L Total Protein (6.3-8.2) g/dL Procalcitonin <0.02 L (0.02-0.09) ng/mL Diabetes panel 01/21/22 01/22/22 01/22/22 Range/Units 16:42 07:46 07:46 Sodium 139 137 (137-145) mmol/L Potassium 2.8 L 3.9 (3.5-5.1) mmol/L Chloride 96 L 95 L (98-107) mmol/L Carbon Dioxide 32 H 35 H (22-30) mmol/L BUN 12 13 (7-17) mg/dL Creatinine 0.68 0.70 (0.52-1.04) mg/dL Glucose 153 H 236 H (74-99) mg/dL Hemoglobin A1c 7.9 H (0.0-6.0) % Calcium 9.6 9.1 (8.4-10.2) mg/dL AST 44 H 34 (14-36) U/L ALT 26 22 (4-34) U/L Alkaline Phosphatase 90 83 (38-126) U/L Total Protein 7.0 6.2 L (6.3-8.2) g/dL Albumin 4.4 3.9 (3.5-5.0) g/dL Calcium panel 01/21/22 01/22/22 Range/Units 16:42 07:46 Calcium 9.6 9.1 (8.4-10.2) mg/dL Albumin 4.4 3.9 (3.5-5.0) g/dL Pituitary panel 01/21/22 01/22/22 Range/Units 16:42 07:46 Sodium 139 137 (137-145) mmol/L Potassium 2.8 L 3.9 (3.5-5.1) mmol/L Chloride 96 L 95 L (98-107) mmol/L Carbon Dioxide 32 H 35 H (22-30) mmol/L BUN 12 13 (7-17) mg/dL Creatinine 0.68 0.70 (0.52-1.04) mg/dL Glucose 153 H 236 H (74-99) mg/dL Calcium 9.6 9.1 (8.4-10.2) mg/dL Adrenal panel 01/21/22 01/22/22 Range/Units 16:42 07:46 Sodium 139 137 (137-145) mmol/L Potassium 2.8 L 3.9 (3.5-5.1) mmol/L Chloride 96 L 95 L (98-107) mmol/L Carbon Dioxide 32 H 35 H (22-30) mmol/L BUN 12 13 (7-17) mg/dL Creatinine 0.68 0.70 (0.52-1.04) mg/dL Glucose 153 H 236 H (74-99) mg/dL Calcium 9.6 9.1 (8.4-10.2) mg/dL Total Bilirubin 0.4 0.4 (0.2-1.3) mg/dL AST 44 H 34 (14-36) U/L ALT 26 22 (4-34) U/L Alkaline Phosphatase 90 83 (38-126) U/L Total Protein 7.0 6.2 L (6.3-8.2) g/dL Albumin 4.4 3.9 (3.5-5.0) g/dL Assessment and Plan Assessment: Chronic back pain patient is undergoing workup for this. Regarding the fecal incontinence patient observed. We'll start her on a diet.
[2022-01-22] MEDS: HYDROcodone/APAP 5-325MG 1 EACH TAB PO PRN (14:30)
[2022-01-22 14:54] LABS: Appearance,Urine Clear (Clear); Bilirubin,Urine Negative (Negative); Blood,Urine Negative (Negative); Color,Urine Yellow; Glucose,Urine (UA) 4+ (Negative); Hyaline Casts,Urine 1 /lpf (0-2); Ketones,Urine Negative (Negative); Leukocyte Esterase,Urine Trace (Negative); Nitrite,Urine Negative (Negative); PH, Urine 6.5 (5.0-8.0); Protein,Urine Negative (Negative); RBC,Urine 1 /hpf (0-5); Squamous Epithelial Cell,Urine <1 /hpf (0-4); Urobilinogen,Urine <2.0 mg/dL (<2.0); WBC,Urine 1 /hpf (0-5)
[2022-01-22 17:01] LABS: Glucose,Whole Blood 299 mg/dL (70-110)
[2022-01-22 19:00] LABS: Glucose,Whole Blood 254 mg/dL (70-110)
[2022-01-22] MEDS: APIXABAN 2.5 MG TABLET PO SCH (19:53)
[2022-01-22] MEDS: SODIUM CHLORIDE 0.9% 1,000 ML IV SCH (19:58)
[2022-01-22] MEDS ORDERED: ATORVASTATIN 80 MG TAB PO SCH (21:00)
[2022-01-22] MEDS ORDERED: MIRTAZAPINE 15 MG TAB PO SCH (21:00)
[2022-01-23 06:47] LABS: Glucose,Whole Blood 161 mg/dL (70-110)
[2022-01-23] MEDS: SYMBICORT 160-4.5 MCG INHALER INHALATION SCH (07:08)
[2022-01-23] MEDS ORDERED: PANTOPRAZOLE 40 MG TABLET PO SCH (07:30)
[2022-01-23] MEDS: LACTOBACILLUS ACIDOPH & BULGAR 1 EACH PACKET PO SCH (07:54)
[2022-01-23] MEDS: HYDROcodone/APAP 5-325MG 1 EACH TAB PO PRN (07:54)
[2022-01-23] MEDS: APIXABAN 2.5 MG TABLET PO SCH (07:54)
[2022-01-23] MEDS: METOPROLOL SUCCINATE (ER) 25 MG TAB.ER.24H PO SCH (07:54)
[2022-01-23] MEDS: amLODIPine 2.5 MG TAB PO SCH (07:54)
[2022-01-23] MEDS: CHOLECALCIFEROL 25 MCG (1000 IU) TABLET PO SCH (07:54)
[2022-01-23] MEDS: FUROSEMIDE 20 MG TAB PO SCH (07:55)
[2022-01-23] MEDS: PARoxetine 20 MG TAB PO SCH (07:55)
[2022-01-23 07:57] VITALS: RESP 14
[2022-01-23] MEDS ORDERED: DOCUSATE 100 MG CAP PO SCH (09:00)
[2022-01-23] MEDS ORDERED: CLOPIDOGREL 75 MG TAB PO SCH (09:00)
[2022-01-23 11:56] LABS: Glucose,Whole Blood 182 mg/dL (70-110)
[2022-01-23] MEDS: traMADol 50 MG TAB PO PRN (12:37)
--- NOTE | 2022-01-23 12:49 | P.PN ---
Progress Note - Text Progress Note Date: 01/23/22 Patient remains stable. She's not had a bowel movement today. On exam vital signs are stable. Abdomen soft. Chronic back pain. This will be treated symptomatically. The patient will be scheduled for outpatient colonoscopy next week when she is discharged.
[2022-01-23 13:10] VITALS: BP 112/65; PULSE 67; TEMP 97.9
--- NOTE | 2022-01-24 00:19 | P.DS ---
Providers Date of admission: 01/21/22 19:54 Attending physician: Samara Pack Consults: 01/21/22 19:54 Consult Physician Routine Consulting Provider: Lefty Mcknight Consult Reason/Comments: back pain, spinal stenosis Do you want consulting provider notified?: Yes 01/22/22 07:33 Consult Physician Routine Consulting Provider: Anup Polk Consult Reason/Comments: abd pain and stool incontinance Do you want consulting provider notified?: Yes Primary care physician: [facility] Course: Diagnoses: Acute and chronic back pain, no need for surgical intervention, follow-up as an outpatient Bowel incontinence, cleared by surgeon for discharge and follow-up outpatient for colonoscopy in one week with Dr. Polk Chronic abdominal pain, mainly in the epigastrium for 4-6 months Hypertension Hyperlipidemia Diabetes mellitus COPD with mild exacerbation Coronary artery disease status post a stent Atrial fibrillation on liquids Diabetic neuropathy History of CVA History of the venous thrombosis Fibromyalgia History of GERD History of osteoarthritis History of sleep apnea Chronic back pain History of lung cancer status post radiation only Chronic hypoxic respiratory failure on home oxygen Hospital course: This is a pleasant 81 years old female with past medical history of hypertension, hyperlipidemia, type 2 diabetes mellitus and diabetic neuropathy and atrial fibrillation on liquids. History of CVA/TIA and the venous thrombosis, fibromyalgia, GERD, osteoarthritis, sleep apnea, chronic back pain, history of lung cancer status post radiation only, on home oxygen, hiatal he rnia, coronary artery disease status post stent placement Patient presents because of worsening low back pain for last 2 months and lately she noticed a couple times she lost control of her stool once while she was standing at the sink and once while she was lying in bed., Her pain improved and could be controlled with one pill of [place] 5 mg, CT of the lumbar spine shows chronic spondylitic changes. Grade 1 spondylolisthesis L4 onto L5. No acute osseous abnormalities. Patient evaluated by orthopedic team and cleared her for discharge. Also general surgery evaluated the patient for her bowel problems including chronic pain. Last time she had EGD/colonoscopy was about 3 years ago. Surgical team recommended outpatient colonoscopy in one week and patient agrees. Patient is able to tolerate diet well. Mobility was improving and doing well, physical therapy recommended home health care. Today patient is back to her baseline. She denies any other new symptoms. Patient was cleared for discharge by both orthopedics and surgery team CT of the lumbar spine shows chronic spondylitic changes. Grade 1 spondylolisthesis L4 onto L5. No acute osseous abnormalities. Problems and management plan were discussed with the patient and he verbalized understanding and acceptance Patient was found stable and can be discharged home however he needs follow-up as an outpatient. Patient was instructed to follow up with PCP within one week and patient agrees Physical exam Gen: patient is a AAOx3, no distress CVS: S1-S2, RRR, no murmur Lungs: B/L CTA, no wheezing Abdomen: soft, no distention, no tenderness, positive bowel sounds Extremity: no leg edema or induration Time spent more than 35 minutes Patient Condition at Discharge: Fair Plan - Discharge Summary Discharge Rx Participant: No New Discharge Prescriptions: Continue Pantoprazole Sodium [Protonix] 40 mg PO DAILY Apixaban [Eliquis] 2.5 mg PO BID tablet Fluticasone/Umeclidin/Vilanter [Trelegy Ellipta 100-62.5-25] 1 puff INHALATION RT-DAILY L.acidoph,Paracasei, B.lactis [Probiotic] 1 cap PO DAILY PARoxetine [Paxil] 20 mg PO DAILY Clopidogrel [Plavix] 75 mg PO DAILY #30 tab Metoprolol Succinate (ER) [Toprol XL] 25 mg PO BID busPIRone HCl [Buspar] 10 mg PO TID PRN PRN Reason: Anxiety amLODIPine BESYLATE [Norvasc] 2.5 mg PO DAILY Vits A,C,E/Lutein/Minerals [Ocuvite with Lutein Tablet] 1 tab PO DAILY traMADol HCl [Ultram] 50 mg PO Q6HR PRN 3 Days #12 tab PRN Reason: Pain Gabapentin 600 mg PO TID 3 Days #9 tab Furosemide [Lasix] 20 mg PO DAILY metFORMIN HCL ER [Glucophage XR] 500 mg PO DAILY PRN PRN Reason: HIGH BLOOD SUGAR Atorvastatin Calcium [Lipitor] 80 mg PO HS Cholecalciferol [Vitamin D3 (25 Mcg = 1000 Iu)] 25 mcg PO DAILY Mirtazapine [Remeron] 7.5 mg PO HS levalbuterol HCL 1.25 mg INHALATION RT-QID Discontinued Levofloxacin [Levaquin] 500 mg PO DAILY metroNIDAZOLE [Flagyl] 500 mg PO TID Discharge Medication List Pantoprazole Sodium [Protonix] 40 mg PO DAILY 09/23/16 [History] Apixaban [Eliquis] 2.5 mg PO BID tablet 10/02/16 [Rx] Fluticasone/Umeclidin/Vilanter [Trelegy Ellipta 100-62.5-25] 1 puff INHALATION RT-DAILY 04/19/20 [History] L.acidoph,Paracasei, B.lactis [Probiotic] 1 cap PO DAILY 07/12/20 [History] PARoxetine [Paxil] 20 mg PO DAILY 07/12/20 [History] Clopidogrel [Plavix] 75 mg PO DAILY #30 tab 08/10/20 [Rx] Metoprolol Succinate (ER) [Toprol XL] 25 mg PO BID 09/22/20 [History] busPIRone HCl [Buspar] 10 mg PO TID PRN 09/22/20 [History] Atorvastatin Calcium [Lipitor] 80 mg PO HS 08/06/21 [History] Cholecalciferol [Vitamin D3 (25 Mcg = 1000 Iu)] 25 mcg PO DAILY 08/06/21 [History] Mirtazapine [Remeron] 7.5 mg PO HS 08/06/21 [History] Vits A,C,E/Lutein/Minerals [Ocuvite with Lutein Tablet] 1 tab PO DAILY 08/06/21 [History] amLODIPine BESYLATE [Norvasc] 2.5 mg PO DAILY 08/06/21 [History] Gabapentin 600 mg PO TID 3 Days #9 tab 08/09/21 [Rx] traMADol HCl [Ultram] 50 mg PO Q6HR PRN 3 Days #12 tab 08/09/21 [Rx] Furosemide [Lasix] 20 mg PO DAILY 01/21/22 [History] metFORMIN HCL ER [Glucophage XR] 500 mg PO DAILY PRN 01/21/22 [History] levalbuterol HCL 1.25 mg INHALATION RT-QID 01/22/22 [History] Follow up Appointment(s)/Referral(s): Nohemi Estrada MD [Primary Care Provider] - 1-2 days Lefty Mcknight DO [Doctor of Osteopathic Medicine] - 1 Week Anup Polk MD [STAFF PHYSICIAN] - 02/04/22 3:00 pm Activity/Diet/Wound Care/Special Instructions: Heart healthy diet activity is restricted till you see your doctors Discharge Disposition: HOME WITH HOME HEALTH SERVICES
== END 2022-01-23 15:29 | disposition home health service (06) ==
LOC: EC 16:11 → 6NMEDSUR 19:54
PROVIDERS: ADMIT Hospitalist; ATTEND Hospitalist
DX: M48.061 Spinal stenosis, lumbar region without neurogenic claudication (principal); M43.16 Spondylolisthesis, lumbar region; K59.09 Other constipation; J44.1 Chronic obstructive pulmonary disease with (acute) exacerbation; J96.11 Chronic respiratory failure with hypoxia; I11.0 Hypertensive heart disease with heart failure; I50.9 Heart failure, unspecified; E11.40 Type 2 diabetes mellitus with diabetic neuropathy, unspecified; E78.5 Hyperlipidemia, unspecified; I48.91 Unspecified atrial fibrillation; M79.7 Fibromyalgia; G47.30 Sleep apnea, unspecified; F32.A Depression, unspecified; K21.9 Gastro-esophageal reflux disease without esophagitis; I73.00 Raynaud's syndrome without gangrene; Z92.3 Personal history of irradiation; Z79.899 Other long term (current) drug therapy; Z79.01 Long term (current) use of anticoagulants; Z79.02 Long term (current) use of antithrombotics/antiplatelets; Z79.84 Long term (current) use of oral hypoglycemic drugs; Z86.73 Personal history of transient ischemic attack (TIA), and cerebral infarction without residual deficits; Z85.118 Personal history of other malignant neoplasm of bronchus and lung; Z86.718 Personal history of other venous thrombosis and embolism; Z99.81 Dependence on supplemental oxygen; Z90.49 Acquired absence of other specified parts of digestive tract; Z95.5 Presence of coronary angioplasty implant and graft; Z87.891 Personal history of nicotine dependence; Z82.5 Family history of asthma and other chronic lower respiratory diseases; Z82.49 Family history of ischemic heart disease and other diseases of the circulatory system; Z80.9 Family history of malignant neoplasm, unspecified; Z95.0 Presence of cardiac pacemaker
CPT/HCPCS: 96365; 96375; 99285; 36415; 94640 ×2; 94760; 93005; 97162; 97167; 83880; 80053; 80048; 80076; 83605; 83735 ×2; 84484; 85025 ×2; 85610; 85730; 81001; 83036; 84145; 71046; 74018; 72131; G0378 ×3; J1100; J3475

== ENCOUNTER → 2022-02-07 | Outpatient (CLI) | payer MEDICARE, OTHER ==
--- NOTE | 2022-02-09 11:00 | CT ---
EXAMINATION TYPE: CT chest w con CT DLP: 142.7 mGycm, Automated exposure control for dose reduction was used. DATE OF EXAM: 02/07/2022 4:58 PM COMPARISON: Chest radiograph 01/21/2022, CT chest 09/22/2020, PET/CT 10/12/2020 CLINICAL INDICATION:Female, 81 years old with history of M54.16, C34.90, sob; hx of lung ca TECHNIQUE: Multiple axial images were obtained through the chest. Sagittal and coronal reformats were created for review. Contrast used:100ml mL of Isovue 300 with IV Contrast. Oral contrast used: none. FINDINGS: LUNGS/ PLEURA: Moderate centrilobular emphysema changes are seen throughout the lungs. Similar appear ance to the right lower lobe streaky atelectasis/scarring. Similar posterior atelectasis and scarring in the left lower lung. Calcified granuloma in the left lower lobe is unchanged. Previously mentioned right upper lobe nodular densities are not significantly changed. A left upper lobe 5 x 2 mm pulmonary nodule is identified series 7 image 89, series 4 image 30. AIRWAY: Patent and unremarkable. HEART: Size within normal limits. Cardiac conduction leads with tips terminating in the right atrium and right ventricle. Moderate coronary artery atherosclerosis. MEDIASTINUM: No gross evidence of adenopathy. VASCULATURE: No aortic aneurysm. No evidence of pulmonary arterial vascular filling defect to sugges t pulmonary embolus. MUSCULOSKELETAL: No acute osseous abnormalities SOFT TISSUES/LYMPH NODES: Unremarkable. LOWER NECK: No significant findings. UPPER ABDOMEN: Left renal cysts. Atherosclerosis of the abdominal aorta. The gallbladder surgically a bsent. IMPRESSION: 1. New left upper lobe flat morphology nodular density measuring about 5 x 2 mm not definitively see n on prior on 10/12/2020. . Attention on follow-up imaging. 2. Suspected post treatment changes the right lung low with stable scarring/atelectasis. 3. Moderate centrilobular emphysema changes.
== END | disposition home or self-care (01) ==
LOC: RADCTMAIN 15:41
PROVIDERS: ATTEND Family Medicine
DX: C34.90 Malignant neoplasm of unspecified part of unspecified bronchus or lung (principal); J43.2 Centrilobular emphysema; J98.11 Atelectasis; M54.16 Radiculopathy, lumbar region
CPT/HCPCS: 82565; 84520; 71260; 36415; Q9967

== ENCOUNTER 2022-05-13 15:39 | Inpatient (IN) | payer MEDICARE, OTHER ==
--- NOTE | 2022-05-13 17:18 | ED ---
SOB HPI - General Chief Complaint: Shortness of Breath Stated Complaint: AFib, SOB Time Seen by Provider: 05/13/22 15:59 Source: patient Mode of arrival: wheelchair Limitations: no limitations - History of Present Illness Initial Comments: 81-year-old female past history of A. fib on Eliquis, congestive heart failure, COPD who wears 2 L home O2 who presents emergency Department with shortness of breath. She was sent in by her primary care for failing outpatient treatment. She became more short of breath starting last Thursday. She has been wearing her oxygen and using her inhalers. She called Dr. Estrada who placed her on oral prednisone and Levaquin. She has been taking his medications with continued exertional dyspnea. She does have a history of lung cancer with radiation. She follows with Dr. Koch. She reports to poor appetite and weakness. She has been unable to get out of bed enough to even take all of her medications. Denies any missed doses of her anticoagulation. No sick contacts. Does admit to a mild productive cough. No chest pain. No lower externally swelling. No other alleviating, precipitating or modifying factors - Related Data Home Medications Medication Instructions Recorded Confirmed Pantoprazole Sodium [Protonix] 40 mg PO DAILY 09/23/16 05/13/22 Fluticasone/Umeclidin/Vilanter 1 puff INHALATION RT-DAILY 04/19/20 05/13/22 [Trelegy Ellipta 100-62.5-25] L.acidoph,Paracasei, B.lactis 1 cap PO DAILY 07/12/20 05/13/22 [Probiotic] Metoprolol Succinate (ER) [Toprol 25 mg PO BID 09/22/20 05/13/22 XL] busPIRone HCl [Buspar] 10 mg PO HS 09/22/20 05/13/22 Cholecalciferol [Vitamin D3 (25 25 mcg PO DAILY 08/06/21 05/13/22 Mcg = 1000 Iu)] Mirtazapine [Remeron] 7.5 mg PO HS 08/06/21 05/13/22 Vits A,C,E/Lutein/Minerals 1 tab PO BID 08/06/21 05/13/22 [Ocuvite with Lutein Tablet] amLODIPine BESYLATE [Norvasc] 2.5 mg PO DAILY 08/06/21 05/13/22 metFORMIN HCL ER [Glucophage XR] 500 mg PO DAILY 01/21/22 05/13/22 Atorvastatin Calcium [Lipitor] 40 mg PO BID 05/13/22 05/13/22 Benzonatate [Tessalon Perle] 200 mg PO TID PRN 05/13/22 05/13/22 DULoxetine HCL [Cymbalta] 30 mg PO BID 05/13/22 05/13/22 Ergocalciferol (Vitamin D2) 1,250 mcg PO WE 05/13/22 05/13/22 [Drisdol (50,000 Iu)] levoFLOXacin 500 mg PO DAILY 05/13/22 05/13/22 predniSONE [Deltasone] See Taper PO DIRECTED 05/13/22 05/13/22 Previous Rx's Medication Instructions Recorded Apixaban [Eliquis] 2.5 mg PO BID tablet 10/02/16 Clopidogrel [Plavix] 75 mg PO DAILY #30 tab 08/10/20 traMADol HCl [Ultram] 50 mg PO Q6HR PRN 3 Days #12 tab 08/09/21 Allergies Allergy/AdvReac Type Severity Reaction Status Date / Time No Known Allergies Allergy Verified 05/13/22 18:09 Review of Systems ROS Statement: Those systems with pertinent positive or pertinent negative responses have been documented in the HPI. ROS Other: All systems not noted in ROS Statement are negative. Past Medical History Past Medical History: Atrial Fibrillation, Cancer, Heart Failure, COPD, CVA/TIA, Diabetes Mellitus, Deep Vein Thrombosis (DVT), Fibromyalgia, GERD/Reflux, Hyperlipidemia, Hypertension, Osteoarthritis (OA), Pneumonia, Sleep Apnea/CPAP/BIPAP, Vascular Disorder Additional Past Medical History / Comment(s): back pain , lung cancer-radiation opnly, HOME 02 2 LITERS N/C, BLOOD CLOT AFTER SX, CVA LT SIDE AFFECTED SINCE RESOLVED, HIATAL HERNIA. SHINGLES 30 YEARS AGO, DOES'NT USE CPAP MACHINE.in past for short period of time took oral meds for dm-then taken off meds-pt stated not considered diabetic now but occ will check bs., macular degeneration.past broken rt leg and lt wrist. Raynauds. Pt currently has 3 fractured ribs on the right that she has "had for years and will not heal". History of Any Multi-Drug Resistant Organisms: MRSA Date of last positivie culture/infection: 09/25/16 MDRO Source:: BRONCH WASH Past Surgical History: Cholecystectomy, Heart Catheterization With Stent, Orthopedic Surgery Additional Past Surgical History / Comment(s): rt leg repaired after break-has pins, lt wrist-plate and screws. lung bx, stents tung groins. Past Anesthesia/Blood Transfusion Reactions: Family History of Problems w/ Anesthesia Additional Past Anesthesia/Blood Transfusion Reaction / Comment(s): daughter has diff waking after aa Date of Last Stent Placement:: unk Type of Cardiac Device: Permanent Pacemaker Device Placement Date:: 09/25/20 Past Psychological History: Depression Smoking Status: Former smoker Past Alcohol Use History: Rare Past Drug Use History: None Reported - Past Family History Father Family Medical History: Congestive Heart Failure (CHF), COPD Additional Family Medical History / Comment(s): emphysema Mother Family Medical History: Cancer General Exam Limitations: no limitations General appearance: alert, in no apparent distress Head exam: Present: atraumatic, normocephalic, normal inspection Eye exam: Present: normal appearance, PERRL, EOMI. Absent: scleral icterus, conjunctival injection, periorbital swelling ENT exam: Present: normal exam, mucous membranes moist Neck exam: Present: normal inspection. Absent: tenderness, meningismus, lymphadenopathy Respiratory exam: Present: accessory muscle use, decreased breath sounds, other (conversational dyspnea). Absent: respiratory distress, wheezes, rales, rhonchi, stridor Cardiovascular Exam: Present: regular rate, normal rhythm, normal heart sounds. Absent: systolic murmur, diastolic murmur, rubs, gallop, clicks GI/Abdominal exam: Present: soft, normal bowel sounds. Absent: distended, tenderness, guarding, rebound, rigid Extremities exam: Present: normal inspection, full ROM, normal capillary refill. Absent: tenderness, pedal edema, joint swelling, calf tenderness Back exam: Present: normal inspection Neurological exam: Present: alert, oriented X3, CN II-XII intact Psychiatric exam: Present: normal affect, normal mood Skin exam: Present: warm, dry, intact, normal color. Absent: rash Course Vital Signs 05/13/22 05/13/22 05/13/22 15:40 18:14 18:24 Temperature 97.4 F L Pulse Rate 78 68 68 Respiratory 32 H Rate Blood Pressure 194/74 O2 Sat by Pulse 89 L Oximetry 05/13/22 19:28 Temperature Pulse Rate 65 Respiratory 18 Rate Blood Pressure 150/72 O2 Sat by Pulse 96 Oximetry Medical Decision Making - Medical Decision Making Arrival patient was placed into room 4. A thorough history and physical exam was performed. Patient does arrive saturating 89% on 2 L. IV is established and laboratory studies were conducted. 12-lead EKG was performed. Laboratory studies are reviewed and demonstrated a lactic acid of 2.7. Covid and influenza are not detected. Chest x-ray demonstrates no acute process. Patient has no increased work of breathing at this time. She is saturating 94% on 2 L. She was given a DuoNeb breathing treatment and started on Solu-Medrol. Patient's symptoms are consistent with a tracheobronchitis and therefore she is additionally started on Rocephin and azithromycin. I recommended admission to the patient for which she was agreeable. Spoke with Nik from [facility] who agreed to admit the patient. Blood cultures obtained. Patient taken to the floor in stable condition - Lab Data Result diagrams: 05/13/22 16:57 05/13/22 16:57 Lab Results 05/13/22 05/13/22 05/13/22 Range/Units 16:57 16:57 16:57 WBC 10.9 H (3.8-10.6) k/uL RBC 4.42 (3.80-5.40) m/uL Hgb 12.4 (11.4-16.0) gm/dL Hct 39.2 (34.0-46.0) % MCV 88.7 (80.0-100.0) fL MCH 28.1 (25.0-35.0) pg MCHC 31.6 (31.0-37.0) g/dL RDW 13.4 (11.5-15.5) % Plt Count 252 (150-450) k/uL MPV 8.5 Neutrophils % 88 % Lymphocytes % 8 % Monocytes % 2 % Eosinophils % 1 % Basophils % 0 % Neutrophils # 9.6 H (1.3-7.7) k/uL Lymphocytes # 0.9 L (1.0-4.8) k/uL Monocytes # 0.2 (0-1.0) k/uL Eosinophils # 0.1 (0-0.7) k/uL Basophils # 0.1 (0-0.2) k/uL PT 11.3 (9.0-12.0) sec INR 1.1 (<1.2) APTT 23.9 (22.0-30.0) sec VBG pH (7.31-7.41) VBG pCO2 (37-51) mmHg VBG HCO3 (24-28) mmol/L Sodium 133 L (137-145) mmol/L Potassium 3.9 (3.5-5.1) mmol/L Chloride 98 (98-107) mmol/L Carbon Dioxide 24 (22-30) mmol/L Anion Gap 11 mmol/L BUN 23 H (7-17) mg/dL Creatinine 0.84 (0.52-1.04) mg/dL Est GFR (CKD-EPI)AfAm 75 (>60 ml/min/1.73 sqM) Est GFR (CKD-EPI)NonAf 65 (>60 ml/min/1.73 sqM) Glucose 237 H (74-99) mg/dL Lactic Ac Sepsis Rflx Plasma Lactic Acid Imer (0.7-2.0) mmol/L Calcium 8.9 (8.4-10.2) mg/dL Magnesium 1.8 (1.6-2.3) mg/dL Total Bilirubin 0.6 (0.2-1.3) mg/dL AST 54 H (14-36) U/L ALT 38 H (4-34) U/L Alkaline Phosphatase 82 (38-126) U/L Troponin I (0.000-0.034) ng/mL NT-Pro-B Natriuret Pep pg/mL Total Protein 6.5 (6.3-8.2) g/dL Albumin 3.9 (3.5-5.0) g/dL Coronavirus (PCR) (Not Detectd) Influenza Type A RNA (Not Detectd) Influenza Type B (PCR) (Not Detectd) 05/13/22 05/13/22 05/13/22 Range/Units 16:57 16:57 16:57 WBC (3.8-10.6) k/uL RBC (3.80-5.40) m/uL Hgb (11.4-16.0) gm/dL Hct (34.0-46.0) % MCV (80.0-100.0) fL MCH (25.0-35.0) pg MCHC (31.0-37.0) g/dL RDW (11.5-15.5) % Plt Count (150-450) k/uL MPV Neutrophils % % Lymphocytes % % Monocytes % % Eosinophils % % Basophils % % Neutrophils # (1.3-7.7) k/uL Lymphocytes # (1.0-4.8) k/uL Monocytes # (0-1.0) k/uL Eosinophils # (0-0.7) k/uL Basophils # (0-0.2) k/uL PT (9.0-12.0) sec INR (<1.2) APTT (22.0-30.0) sec VBG pH (7.31-7.41) VBG pCO2 (37-51) mmHg VBG HCO3 (24-28) mmol/L Sodium (137-145) mmol/L Potassium (3.5-5.1) mmol/L Chloride (98-107) mmol/L Carbon Dioxide (22-30) mmol/L Anion Gap mmol/L BUN (7-17) mg/dL Creatinine (0.52-1.04) mg/dL Est GFR (CKD-EPI)AfAm (>60 ml/min/1.73 sqM) Est GFR (CKD-EPI)NonAf (>60 ml/min/1.73 sqM) Glucose (74-99) mg/dL Lactic Ac Sepsis Rflx Plasma Lactic Acid Imer 2.7 H* (0.7-2.0) mmol/L Calcium (8.4-10.2) mg/dL Magnesium (1.6-2.3) mg/dL Total Bilirubin (0.2-1.3) mg/dL AST (14-36) U/L ALT (4-34) U/L Alkaline Phosphatase (38-126) U/L Troponin I <0.012 (0.000-0.034) ng/mL NT-Pro-B Natriuret Pep 514 pg/mL Total Protein (6.3-8.2) g/dL Albumin (3.5-5.0) g/dL Coronavirus (PCR) (Not Detectd) Influenza Type A RNA (Not Detectd) Influenza Type B (PCR) (Not Detectd) 05/13/22 05/13/22 05/13/22 Range/Units 16:57 16:57 16:57 WBC (3.8-10.6) k/uL RBC (3.80-5.40) m/uL Hgb (11.4-16.0) gm/dL Hct (34.0-46.0) % MCV (80.0-100.0) fL MCH (25.0-35.0) pg MCHC (31.0-37.0) g/dL RDW (11.5-15.5) % Plt Count (150-450) k/uL MPV Neutrophils % % Lymphocytes % % Monocytes % % Eosinophils % % Basophils % % Neutrophils # (1.3-7.7) k/uL Lymphocytes # (1.0-4.8) k/uL Monocytes # (0-1.0) k/uL Eosinophils # (0-0.7) k/uL Basophils # (0-0.2) k/uL PT (9.0-12.0) sec INR (<1.2) APTT (22.0-30.0) sec VBG pH 7.32 (7.31-7.41) VBG pCO2 55 H (37-51) mmHg VBG HCO3 27 (24-28) mmol/L Sodium (137-145) mmol/L Potassium (3.5-5.1) mmol/L Chloride (98-107) mmol/L Carbon Dioxide (22-30) mmol/L Anion Gap mmol/L BUN (7-17) mg/dL Creatinine (0.52-1.04) mg/dL Est GFR (CKD-EPI)AfAm (>60 ml/min/1.73 sqM) Est GFR (CKD-EPI)NonAf (>60 ml/min/1.73 sqM) Glucose (74-99) mg/dL Lactic Ac Sepsis Rflx Plasma Lactic Acid Imer (0.7-2.0) mmol/L Calcium (8.4-10.2) mg/dL Magnesium (1.6-2.3) mg/dL Total Bilirubin (0.2-1.3) mg/dL AST (14-36) U/L ALT (4-34) U/L Alkaline Phosphatase (38-126) U/L Troponin I (0.000-0.034) ng/mL NT-Pro-B Natriuret Pep pg/mL Total Protein (6.3-8.2) g/dL Albumin (3.5-5.0) g/dL Coronavirus (PCR) Not Detected (Not Detectd) Influenza Type A RNA Not Detected (Not Detectd) Influenza Type B (PCR) Not Detected (Not Detectd) 05/13/22 Range/Units 17:33 WBC (3.8-10.6) k/uL RBC (3.80-5.40) m/uL Hgb (11.4-16.0) gm/dL Hct (34.0-46.0) % MCV (80.0-100.0) fL MCH (25.0-35.0) pg MCHC (31.0-37.0) g/dL RDW (11.5-15.5) % Plt Count (150-450) k/uL MPV Neutrophils % % Lymphocytes % % Monocytes % % Eosinophils % % Basophils % % Neutrophils # (1.3-7.7) k/uL Lymphocytes # (1.0-4.8) k/uL Monocytes # (0-1.0) k/uL Eosinophils # (0-0.7) k/uL Basophils # (0-0.2) k/uL PT (9.0-12.0) sec INR (<1.2) APTT (22.0-30.0) sec VBG pH (7.31-7.41) VBG pCO2 (37-51) mmHg VBG HCO3 (24-28) mmol/L Sodium (137-145) mmol/L Potassium (3.5-5.1) mmol/L Chloride (98-107) mmol/L Carbon Dioxide (22-30) mmol/L Anion Gap mmol/L BUN (7-17) mg/dL Creatinine (0.52-1.04) mg/dL Est GFR (CKD-EPI)AfAm (>60 ml/min/1.73 sqM) Est GFR (CKD-EPI)NonAf (>60 ml/min/1.73 sqM) Glucose (74-99) mg/dL Lactic Ac Sepsis Rflx Y Plasma Lactic Acid Imer (0.7-2.0) mmol/L Calcium (8.4-10.2) mg/dL Magnesium (1.6-2.3) mg/dL Total Bilirubin (0.2-1.3) mg/dL AST (14-36) U/L ALT (4-34) U/L Alkaline Phosphatase (38-126) U/L Troponin I (0.000-0.034) ng/mL NT-Pro-B Natriuret Pep pg/mL Total Protein (6.3-8.2) g/dL Albumin (3.5-5.0) g/dL Coronavirus (PCR) (Not Detectd) Influenza Type A RNA (Not Detectd) Influenza Type B (PCR) (Not Detectd) - EKG Data EKG Comments: EKG demonstrates normal sinus rhythm with a rate of 69. DC interval 194. QRS 72. QTC of 412. No acute ST segment elevations or depressions. EKG is interpreted by myself Disposition Clinical Impression: COPD with acute lower respiratory infection, Tracheobronchitis, Lactic acidosis Disposition: ADMITTED IP TO THIS HOSP Condition: Stable Is patient prescribed a controlled substance at d/c from ED?: No Time of Disposition: 18:12 Decision to Admit Reason: Admit from EC Decision Date: 05/13/22 Decision Time: 18:12
[2022-05-13 17:23] LABS: Basophils # (A) 0.1 k/uL (0-0.2); Basophils % (A) 0 %; Eosinophils # (A) 0.1 k/uL (0-0.7); Eosinophils % (A) 1 %; HCT 39.2 % (34.0-46.0); HGB 12.4 gm/dL (11.4-16.0); Lymphocytes # (A) 0.9 k/uL (1.0-4.8); Lymphocytes % (A) 8 %; MCH 28.1 pg (25.0-35.0); MCHC 31.6 g/dL (31.0-37.0); MCV 88.7 fL (80.0-100.0); Mean Platelet Volume 8.5; Monocytes # (A) 0.2 k/uL (0-1.0); Monocytes % (A) 2 %; Neutrophils # (A) 9.6 k/uL (1.3-7.7); Neutrophils % (A) 88 %; Platelet Count 252 k/uL (150-450); RBC 4.42 m/uL (3.80-5.40); RDW 13.4 % (11.5-15.5); WBC 10.9 k/uL (3.8-10.6)
[2022-05-13 17:28] LABS: VBG PH 7.32 (7.31-7.41)
[2022-05-13 17:33] LABS: Albumin 3.9 g/dL (3.5-5.0); Calcium 8.9 mg/dL (8.4-10.2); Magnesium 1.8 mg/dL (1.6-2.3); Potassium 3.9 mmol/L (3.5-5.1); Total Bilirubin 0.6 mg/dL (0.2-1.3); Total Protein 6.5 g/dL (6.3-8.2)
[2022-05-13 17:38] LABS: INR 1.1 (<1.2); Partial Thromboplastin Time 23.9 sec (22.0-30.0); Prothrombin Time 11.3 sec (9.0-12.0)
--- NOTE | 2022-05-13 17:42 | XR ---
EXAMINATION TYPE: XR chest 2V DATE OF EXAM: 05/13/2022 COMPARISON: Chest CT February 07, 2022 HISTORY: Difficulty in breathing TECHNIQUE: Frontal and lateral views of the chest are obtained. FINDINGS: Background chronic emphysematous change is redemonstrated. Some chronic parenchymal scarri ng in the right mid to lower lung again seen. There is no suspicious new focal air space opacity, ple ural effusion, or pneumothorax seen. The cardiac silhouette size is stable and within normal limits. Dual lead pacemaker redemonstrated along with atherosclerotic thoracic aorta. Cholecystectomy clips are redemonstrated. The osseous structures are intact. IMPRESSION: Chronic changes without acute pulmonary process.
[2022-05-13] MEDS ORDERED: IPRATROPIUM-ALBUTEROL 3 ML NEB INHALATION STA (17:57)
[2022-05-13] MEDS ORDERED: methylPREDNISolone SOD SUCCI 125 MG/2 ML VIAL IV STA (17:57)
[2022-05-13] MEDS ORDERED: AZITHROMYCIN 500 MG in SODIUM CHLORIDE 0.9% 250 ML IVPB STA (18:03)
[2022-05-13] MEDS ORDERED: PNEUMONIA PROTOCOL UTILIZED 1 EACH MISC PO PRN (18:03)
[2022-05-13] MEDS: IPRATROPIUM-ALBUTEROL 3 ML NEB INHALATION SCH ×2 (19:56→23:35)
[2022-05-13] MEDS ORDERED: traMADol 50 MG TAB PO PRN (21:24)
[2022-05-13] MEDS ORDERED: BENZONATATE 100 MG CAP PO PRN (21:24)
[2022-05-13] MEDS ORDERED: SODIUM CHLORIDE 0.9% 500 ML 500 ML IV ONE (22:11)
[2022-05-13] MEDS: APIXABAN 2.5 MG TABLET PO SCH (22:24)
[2022-05-13] MEDS: ATORVASTATIN 40 MG TAB PO SCH (22:24)
[2022-05-13] MEDS: METOPROLOL SUCCINATE (ER) 25 MG TAB.ER.24H PO SCH (22:24)
[2022-05-13] MEDS: MIRTAZAPINE 15 MG TAB PO SCH (22:24)
[2022-05-13] MEDS: busPIRone HCl 10 MG TAB PO SCH (22:24)
[2022-05-13] MEDS: DULoxetine HCL 30 MG CAPSULE.DR PO SCH (22:25)
[2022-05-13] MEDS: VIT A,C & E-LUTEIN-MINERALS 1 EACH TAB PO SCH (22:25)
[2022-05-13] MEDS: CHOLECALCIFEROL 25 MCG (1000 IU) TABLET PO SCH (22:25)
[2022-05-13] MEDS: methylPREDNISolone SOD SUCCI 40 MG/ML 1 ML VIAL IV SCH (23:36)
[2022-05-14] MEDS ORDERED: SODIUM CHLORIDE 0.9% 1,000 ML IV ONE (02:51)
[2022-05-14] MEDS: IPRATROPIUM-ALBUTEROL 3 ML NEB INHALATION SCH ×5 (03:12→21:02)
[2022-05-14 05:53] LABS: Glucose,Whole Blood 214 mg/dL (70-110)
[2022-05-14] MEDS: INSULIN ASPART (NovoLOG) 100 UNIT/ML VIAL SQ SCH ×4 (06:07→22:01)
[2022-05-14] MEDS: SYMBICORT 80-4.5 MCG INHALER INHALATION SCH ×2 (07:33→21:02)
[2022-05-14] MEDS ORDERED: IPRATROPIUM 0.5 MG/2.5 ML NEBU INHALATION SCH (08:00)
--- NOTE | 2022-05-14 08:24 | XR ---
EXAMINATION TYPE: XR chest 2V DATE OF EXAM: 05/14/2022 COMPARISON: 05/13/2022 HISTORY: Shortness of breath TECHNIQUE: Frontal and lateral views of the chest are obtained. FINDINGS: Scattered senescent parenchymal changes noted. Hyperinflation compatible with COPD. No significant change in right lower lobe infiltrate. Heart size is stable. Mediastinal structures are stable and grossly unremarkable. No evidence for hilar prominence. Degenerative changes dorsal spine. IMPRESSION: 1. No significant change in right lower lobe infiltrate.
[2022-05-14] MEDS: CHOLECALCIFEROL 25 MCG (1000 IU) TABLET PO SCH (08:36)
[2022-05-14] MEDS: PANTOPRAZOLE 40 MG TABLET PO SCH (08:36)
[2022-05-14] MEDS: ATORVASTATIN 40 MG TAB PO SCH ×2 (08:36→21:34)
[2022-05-14] MEDS: APIXABAN 2.5 MG TABLET PO SCH ×2 (08:36→21:34)
[2022-05-14] MEDS: amLODIPine 2.5 MG TAB PO SCH (08:36)
[2022-05-14] MEDS: LIPASE 5,000/PROTEASE 17,000/AMYLASE 24,000 PO SCH (08:36)
[2022-05-14] MEDS: methylPREDNISolone SOD SUCCI 40 MG/ML 1 ML VIAL IV SCH ×3 (08:36→23:39)
[2022-05-14] MEDS: CLOPIDOGREL 75 MG TAB PO SCH (08:36)
[2022-05-14] MEDS: METOPROLOL SUCCINATE (ER) 25 MG TAB.ER.24H PO SCH ×2 (08:36→21:34)
[2022-05-14] MEDS: DULoxetine HCL 30 MG CAPSULE.DR PO SCH ×2 (08:37→21:33)
[2022-05-14] MEDS: VIT A,C & E-LUTEIN-MINERALS 1 EACH TAB PO SCH ×2 (08:37→21:33)
[2022-05-14] MEDS ORDERED: ERGOCALCIFEROL 1,250 MCG (50,000 IU) CAPSULE PO SCH (09:00)
[2022-05-14] MEDS ORDERED: RX INFO: IV CONTRAST WAS GIVEN 1 EACH MISC MISCELLANE PRN (11:14)
--- NOTE | 2022-05-14 11:21 | P.HPIM ---
History of Present Illness This is a pleasant 81 years old female with multiple medical problems as below Patient states that she is coming to the hospital because she's been having shortness of breath for about a week, slowly progressive and associated with cough and yellow white phlegm, she called her PCP Dr. Muñoz yesterday who sent her to the hospital She denies any chest pain but she is complaining of from right upper quadrant pain and tenderness and right shoulder pain although she says that she has this pain on and off for many years but the right upper quadrant tenderness she states she have it for 2 weeks. She states that she has history of lung cancer 2011 and she received radiotherapy. Recently she is been followed closely with Dr. Justin because she thinks they found a spot about 2-3 month ago. She has some diarrhea yesterday but not today, she is not eating much and feeling nausea. She feels her abdomen is full each time she eats. She denies dysuria urgency, she has little headache or dizziness but no significant weakness or numbness She quit smoking 2011, no alcohol or illicit drugs. Patient currently saturating 95% on 2 L oxygen via nasal cannula. Patient is afebrile. WBC is 10.9 which is slightly elevated, so CBC is unremarkable. INR 1.1. Venous pH normal 7.31 pCO2 slightly elevated at 55. Elevated lactic acid 2.7-5. BMP and liver enzymes were unremarkable except for mildly elevated AST 54 and ALT 38. Bilirubin is normal. Troponin and proBNP are negative. Chest x-ray: No significant change in the right lower lobe infiltrate EKG showing normal sinus rhythm at [address]-T changes Patient was admitted with pulmonary team consult Review of Systems Review of systems CONSTITUTIONAL: No fever, no malaise, no fatigue. HEENT: No recent visual problems or hearing problems. Denied any sore throat. CARDIOVASCULAR: No orthopnea, PND, no palpitations, no syncope. PULMONARY: No chest wall tenderness, no hemoptysis. GASTROINTESTINAL: No diarrhea, no vomiting. Normoactive bowel sounds. NEUROLOGICAL: No headaches, no weakness, no numbness. HEMATOLOGICAL: Denies any bleeding or petechiae. GENITOURINARY: Denies any burning micturition, frequency, or urgency. MUSCULOSKELETAL/RHEUMATOLOGICAL: Denies any joint pain, swelling, or any muscle pain. ENDOCRINE: Denies any polyuria or polydipsia. Past Medical History Past Medical History: Atrial Fibrillation, Cancer, Heart Failure, COPD, CVA/TIA, Diabetes Mellitus, Deep Vein Thrombosis (DVT), Fibromyalgia, GERD/Reflux, Hyperlipidemia, Hypertension, Osteoarthritis (OA), Pneumonia, Sleep Apnea/CPAP/BIPAP, Vascular Disorder Additional Past Medical History / Comment(s): back pain , lung cancer-radiation opnly, HOME 02 2 LITERS N/C, BLOOD CLOT AFTER SX, CVA LT SIDE AFFECTED SINCE RESOLVED, HIATAL HERNIA. SHINGLES 30 YEARS AGO, DOES'NT USE CPAP MACHINE.in past for short period of time took oral meds for dm-then taken off meds-pt stated not considered diabetic now but occ will check bs., macular degeneration.past broken rt leg and lt wrist. Raynauds. Pt currently has 3 fractured ribs on the right that she has "had for years and will not heal". History of Any Multi-Drug Resistant Organisms: MRSA Date of last positivie culture/infection: 09/25/16 MDRO Source:: BRONCH WASH Past Surgical History: Cholecystectomy, Heart Catheterization With Stent, Orthopedic Surgery Additional Past Surgical History / Comment(s): rt leg repaired after break-has pins, lt wrist-plate and screws. lung bx, stents tung groins. Past Anesthesia/Blood Transfusion Reactions: Family History of Problems w/ Anesthesia Additional Past Anesthesia/Blood Transfusion Reaction / Comment(s): daughter has diff waking after aa Date of Last Stent Placement:: unk Type of Cardiac Device: Permanent Pacemaker Device Placement Date:: 09/25/20 Past Psychological History: Depression Smoking Status: Former smoker Past Alcohol Use History: Rare Past Drug Use History: None Reported - Past Family History Father Family Medical History: Congestive Heart Failure (CHF), COPD Additional Family Medical History / Comment(s): emphysema Mother Family Medical History: Cancer Medications and Allergies Home Medications Medication Instructions Recorded Confirmed Type Pantoprazole Sodium [Protonix] 40 mg PO DAILY 09/23/16 05/13/22 History Apixaban [Eliquis] 2.5 mg PO BID tablet 10/02/16 05/13/22 Rx Fluticasone/Umeclidin/Vilanter 1 puff INHALATION RT-DAILY 04/19/20 05/13/22 History [Trelegy Ellipta 100-62.5-25] L.acidoph,Paracasei, B.lactis 1 cap PO DAILY 07/12/20 05/13/22 History [Probiotic] Clopidogrel [Plavix] 75 mg PO DAILY #30 tab 08/10/20 05/13/22 Rx Metoprolol Succinate (ER) [Toprol 25 mg PO BID 09/22/20 05/13/22 History XL] busPIRone HCl [Buspar] 10 mg PO HS 09/22/20 05/13/22 History Cholecalciferol [Vitamin D3 (25 25 mcg PO DAILY 08/06/21 05/13/22 History Mcg = 1000 Iu)] Mirtazapine [Remeron] 7.5 mg PO HS 08/06/21 05/13/22 History Vits A,C,E/Lutein/Minerals 1 tab PO BID 08/06/21 05/13/22 History [Ocuvite with Lutein Tablet] amLODIPine BESYLATE [Norvasc] 2.5 mg PO DAILY 08/06/21 05/13/22 History traMADol HCl [Ultram] 50 mg PO Q6HR PRN 3 Days #12 tab 08/09/21 05/13/22 Rx metFORMIN HCL ER [Glucophage XR] 500 mg PO DAILY 01/21/22 05/13/22 History Atorvastatin Calcium [Lipitor] 40 mg PO BID 05/13/22 05/13/22 History Benzonatate [Tessalon Perle] 200 mg PO TID PRN 05/13/22 05/13/22 History DULoxetine HCL [Cymbalta] 30 mg PO BID 05/13/22 05/13/22 History Ergocalciferol (Vitamin D2) 1,250 mcg PO WE 05/13/22 05/13/22 History [Drisdol (50,000 Iu)] levoFLOXacin 500 mg PO DAILY 05/13/22 05/13/22 History predniSONE [Deltasone] See Taper PO DIRECTED 05/13/22 05/13/22 History Allergies Allergy/AdvReac Type Severity Reaction Status Date / Time No Known Allergies Allergy Verified 05/13/22 18:09 Physical Exam Vitals: Vital Signs Temp Pulse Pulse Resp BP BP Pulse Ox 05/14/22 07:47 74 05/14/22 07:42 97.7 F 61 18 145/72 95 05/14/22 07:36 68 96 12/21/22 03:30 70 05/14/22 03:12 68 05/14/22 01:23 97.7 F 66 18 136/67 98 05/13/22 23:45 74 05/13/22 23:35 76 05/13/22 20:57 97.6 F 84 18 177/79 94 L 05/13/22 19:28 65 18 150/72 96 05/13/22 18:24 68 05/13/22 18:14 68 05/13/22 15:40 97.4 F L 78 32 H 194/74 89 L Intake and Output 05/13/22 05/14/22 05/14/22 22:59 06:59 14:59 Intake Total 2048 Balance 2048 Intake: Intake, IV Titration 1749 Amount Azithromycin 500 mg In 250 Sodium Chloride 0.9% 250 ml @ 250 mls/hr IVPB ONCE STA Rx#:[id number] Sodium Chloride 0.9% 1, 999 000 ml @ 999 mls/hr IV . Q1H1M ONE Rx#:[id number] Sodium Chloride 0.9% 500 500 ml 500 ml @ 999 mls/hr IV .Q31M ONE Rx#:[id number] Oral 300 Other: Voiding Method Toilet # Voids 3 # Bowel Movements 0 Weight 52.163 kg GENERAL: The patient is alert and oriented x3, not in any acute distress. Well developed, well nourished. HEENT: Pupils are round and equally reacting to light. EOMI. No scleral icterus. No conjunctival pallor. Normocephalic, atraumatic. No pharyngeal erythema. No thyromegaly. CARDIOVASCULAR: S1 and S2 present. No murmurs, rubs, or gallops. PULMONARY: Chest is clear to auscultation, no wheezing or crackles. -ABDOMEN: Soft, RUQ tenderness, nondistended, normoactive bowel sounds. No palpable organomegaly. MUSCULOSKELETAL: No joint swelling or deformity. EXTREMITIES: No cyanosis, clubbing, or pedal edema. NEUROLOGICAL: Gross neurological examination did not reveal any focal deficits. SKIN: No rashes. no petechiae. Results CBC & Chem 7: 05/13/22 16:57 05/13/22 16:57 Labs: Abnormal Lab Results - Last 24 Hours (Table) 05/13/22 05/13/22 05/13/22 Range/Units 16:57 16:57 16:57 WBC 10.9 H (3.8-10.6) k/uL Neutrophils # 9.6 H (1.3-7.7) k/uL Lymphocytes # 0.9 L (1.0-4.8) k/uL VBG pCO2 (37-51) mmHg Sodium 133 L (137-145) mmol/L BUN 23 H (7-17) mg/dL Glucose 237 H (74-99) mg/dL POC Glucose (mg/dL) (70-110) mg/dL Plasma Lactic Acid Imer 2.7 H* (0.7-2.0) mmol/L AST 54 H (14-36) U/L ALT 38 H (4-34) U/L 05/13/22 05/13/22 05/14/22 Range/Units 16:57 20:57 01:18 WBC (3.8-10.6) k/uL Neutrophils # (1.3-7.7) k/uL Lymphocytes # (1.0-4.8) k/uL VBG pCO2 55 H (37-51) mmHg Sodium (137-145) mmol/L BUN (7-17) mg/dL Glucose (74-99) mg/dL POC Glucose (mg/dL) (70-110) mg/dL Plasma Lactic Acid Imer 4.1 H* 4.1 H* (0.7-2.0) mmol/L AST (14-36) U/L ALT (4-34) U/L 05/14/22 05/14/22 05/14/22 Range/Units 04:56 05:51 09:41 WBC (3.8-10.6) k/uL Neutrophils # (1.3-7.7) k/uL Lymphocytes # (1.0-4.8) k/uL VBG pCO2 (37-51) mmHg Sodium (137-145) mmol/L BUN (7-17) mg/dL Glucose (74-99) mg/dL POC Glucose (mg/dL) 214 H (70-110) mg/dL Plasma Lactic Acid Imer 3.6 H* 5.0 H* (0.7-2.0) mmol/L AST (14-36) U/L ALT (4-34) U/L Thrombosis Risk Factor Assmnt - Choose All That Apply Each Factor Represents 1 point: Abnormal pulmonary function (COPD) Each Risk Factor Represents 3 Points: Age 75 years or older, History of DVT/PE Thrombosis Risk Factor Assessment Total Risk Factor Score: 7 Thrombosis Risk Factor Assessment Level: High Risk Assessment and Plan Assessment: Right lower lobe infiltrate, rule out pneumonia Right upper quadrant pain and tenderness Chronic atrial fibrillation on Eliquis history of lung cancer status post radiotherapy in 2012 Hypertension Hyperlipidemia Diabetes mellitus History of coronary artery disease status post stents Chronic heart failure, status post permanent pacemaker History of CVA/TIA History of deep venous thrombosis History of GERD History of fibromyalgia History of osteoarthritis History of CPAP History of lung cancer status post radiation Chronic hypoxic respiratory failure and 2 L oxygen via nasal cannula History of hiatal hernia Plan: continue with anitibotic , currently on Zithromax and Rocephin, continue with steroids and breathing treatment Pulmonary team consult follow-up d-dimer and CT of the chest ordered by pulmonary team Patient is on oxygen Check liver ultrasound Labs and medication were reviewed.. Continue same treatment. Continue with symptomatic treatment. Resume home medication. Monitor labs and vitals. DVT and GI prophylaxis. Further recommendations as per clinical course of the patient DVT prophylaxis: Eliquis GI Prophylaxis: Ppi PT/OT: Pending Prognosis is guarded
[2022-05-14 11:56] LABS: Glucose,Whole Blood 242 mg/dL (70-110)
--- NOTE | 2022-05-14 12:42 | CT ---
EXAMINATION TYPE: CT chest w con DATE OF EXAM: 05/14/2022 COMPARISON: 02/07/2022 HISTORY: Shortness of breath CT DLP: 251.1 mGycm Automated exposure control for dose reduction was used. TECHNIQUE: CT scan of the chest is performed with IV Contrast, patient injected with 100 ml mL of Isovue 300. M IP Images are created on CT scanner and reviewed. 3D reconstructed images are created on an [employer] workstation and reviewed. FINDINGS: LUNGS: Moderate centrilobular emphysema changes are seen throughout the lungs. Similar appearance to the right lower lobe streaky atelectasis/scarring. Similar posterior atelectasis and scarring in the left lower lung. Calcified granuloma in the left lower lobe is unchanged. Previously mentioned right upper lobe nodular densities are not significantly changed. A left upper lobe 5 x 2 mm pulmonary nodu le is stable. 6 mm subpleural nodule left lower lobe not seen with certainty on prior exam may represent area of at electasis rather than true pulmonary nodularity. MEDIASTINUM: There are no greater than 1 cm hilar or mediastinal lymph nodes. No pericardial effusi on is seen. Cardiac leads again noted. Atherosclerotic change of the aorta which appears to be of no rmal caliber. Coronary artery calcifications noted. OTHER: Small hiatal hernia. Benign-appearing renal cysts noted. Postcholecystectomy changes are note d. Scoliosis with hypertrophic and degenerative changes of the spine. Chronic sclerotic change involv ing the right rib cage stable could be on the basis of prior surgery or post therapeutic change. IMPRESSION: 1. Stable moderate centrilobular emphysema. 2. Stable 5 mm left-sided pulmonary nodule unchanged from prior exam. 3. Consolidation right lung is stable and appears to demonstrate a planar morphology therefore likely in the basis of either atelectasis, scarring or post therapeutic change. Findings stable from recent previous exam. 4. Subcentimeter consolidation and pleural-based nodule left lung base. This can be followed on a poncho rt-term basis is felt to be most likely postinflammatory. Measures approximately 6 mm.
--- NOTE | 2022-05-14 15:10 | P.CNPUL ---
History of Present Illness Consult date: 05/14/22 Requesting physician: Samara Pack Reason for consult: dyspnea Chief complaint: Shortness of breath History of present illness: This is a very pleasant 81-year-old female patient with a known history of oxygen dependent chronic obstructive pulmonary disease, diabetes mellitus, anxiety/depression, atrial fibrillation anticoagulated with Eliquis, congestive heart failure. She presented here to the emergency room yesterday with 2-3 day history of increasing shortness of breath, cough and congestion. She was treated with antibiotics and steroids in the outpatient setting without much improvement. She does have history of lung cancer with previous radiation. She follows with Dr. Koch in our office for the same. She had been doing well the past several months and seeing him. Chest x-ray shows some minimal infiltrate in the right lower lobe. White count 10.9. Hemoglobin 12.4. D-dimer 0.46. Sodium 133. Potassium 3.9. BUN 23. Creatinine 0.84. Glucose 237. Lactic acid 4.1. AST 54. ALT 38. Hawthorne virus not detected. Influenza screen negative. She is seen today in consultation on the regular medical floor. She is currently resting comfortably in bed. Awake and alert in no acute distress. She does state she has significant dyspnea on exertion. She has productive cough of clear phlegm. She's been initiated on Symbicort, DuoNeb inhalations, IV Solu- Medrol. Maintaining good O2 saturations in the mid 90s on 3 L/m per nasal cannula. Afebrile. Review of Systems REVIEW OF SYSTEMS: CONSTITUTIONAL: Denies any recent significant weight loss or weight gain. EYES: Denies change in vision. EARS, NOSE, MOUTH, THROAT: Denies headaches, denies sore throat. CARDIOVASCULAR: Denies chest pain, palpitations or syncopal episodes. RESPIRATORY: Positive for shortness of breath, cough, congestion no hemoptysis. GASTROINTESTINAL: Denies change in appetite, denies abdominal pain GENITOURINARY: Denies hematuria, denies infections. MUSKULOSKELETAL: Denies pain, denies swelling. INTEGUMENTARY: Denies rash, denies eczema. NEUROLOGICAL: Denies recent memory loss, no recent seizure activity. PSYCHIATRIC: Denies anxiety, denies depression. HEMATOLOGIC/LYMPHATIC: Denies anemia, denies enlarged lymph nodes. Past Medical History Past Medical History: Atrial Fibrillation, Cancer, Heart Failure, COPD, CVA/TIA, Diabetes Mellitus, Deep Vein Thrombosis (DVT), Fibromyalgia, GERD/Reflux, Hyperlipidemia, Hypertension, Osteoarthritis (OA), Pneumonia, Sleep Apnea/CPAP/BIPAP, Vascular Disorder Additional Past Medical History / Comment(s): back pain , lung cancer-radiation opnly, HOME 02 2 LITERS N/C, BLOOD CLOT AFTER SX, CVA LT SIDE AFFECTED SINCE RESOLVED, HIATAL HERNIA. SHINGLES 30 YEARS AGO, DOES'NT USE CPAP MACHINE.in past for short period of time took oral meds for dm-then taken off meds-pt stated not considered diabetic now but occ will check bs., macular degeneration.past broken rt leg and lt wrist. Raynauds. Pt currently has 3 fractured ribs on the right that she has "had for years and will not heal". History of Any Multi-Drug Resistant Organisms: MRSA Date of last positivie culture/infection: 09/25/16 MDRO Source:: BRONCH WASH Past Surgical History: Cholecystectomy, Heart Catheterization With Stent, Orthopedic Surgery Additional Past Surgical History / Comment(s): rt leg repaired after break-has pins, lt wrist-plate and screws. lung bx, stents tung groins. Past Anesthesia/Blood Transfusion Reactions: Family History of Problems w/ Anesthesia Additional Past Anesthesia/Blood Transfusion Reaction / Comment(s): daughter has diff waking after aa Date of Last Stent Placement:: unk Type of Cardiac Device: Permanent Pacemaker Device Placement Date:: 09/25/20 Past Psychological History: Depression Smoking Status: Former smoker Past Alcohol Use History: Rare Past Drug Use History: None Reported - Past Family History Father Family Medical History: Congestive Heart Failure (CHF), COPD Additional Family Medical History / Comment(s): emphysema Mother Family Medical History: Cancer Medications and Allergies Home Medications Medication Instructions Recorded Confirmed Type Pantoprazole Sodium [Protonix] 40 mg PO DAILY 09/23/16 05/13/22 History Apixaban [Eliquis] 2.5 mg PO BID tablet 10/02/16 05/13/22 Rx Fluticasone/Umeclidin/Vilanter 1 puff INHALATION RT-DAILY 04/19/20 05/13/22 History [Trelegy Ellipta 100-62.5-25] L.acidoph,Paracasei, B.lactis 1 cap PO DAILY 07/12/20 05/13/22 History [Probiotic] Clopidogrel [Plavix] 75 mg PO DAILY #30 tab 08/10/20 05/13/22 Rx Metoprolol Succinate (ER) [Toprol 25 mg PO BID 09/22/20 05/13/22 History XL] busPIRone HCl [Buspar] 10 mg PO HS 09/22/20 05/13/22 History Cholecalciferol [Vitamin D3 (25 25 mcg PO DAILY 08/06/21 05/13/22 History Mcg = 1000 Iu)] Mirtazapine [Remeron] 7.5 mg PO HS 08/06/21 05/13/22 History Vits A,C,E/Lutein/Minerals 1 tab PO BID 08/06/21 05/13/22 History [Ocuvite with Lutein Tablet] amLODIPine BESYLATE [Norvasc] 2.5 mg PO DAILY 08/06/21 05/13/22 History traMADol HCl [Ultram] 50 mg PO Q6HR PRN 3 Days #12 tab 08/09/21 05/13/22 Rx metFORMIN HCL ER [Glucophage XR] 500 mg PO DAILY 01/21/22 05/13/22 History Atorvastatin Calcium [Lipitor] 40 mg PO BID 05/13/22 05/13/22 History Benzonatate [Tessalon Perle] 200 mg PO TID PRN 05/13/22 05/13/22 History DULoxetine HCL [Cymbalta] 30 mg PO BID 05/13/22 05/13/22 History Ergocalciferol (Vitamin D2) 1,250 mcg PO WE 05/13/22 05/13/22 History [Drisdol (50,000 Iu)] levoFLOXacin 500 mg PO DAILY 05/13/22 05/13/22 History predniSONE [Deltasone] See Taper PO DIRECTED 05/13/22 05/13/22 History Allergies Allergy/AdvReac Type Severity Reaction Status Date / Time No Known Allergies Allergy Verified 05/13/22 18:09 Physical Exam Vitals: Vital Signs Temp Pulse Pulse Resp BP BP Pulse Ox 05/14/22 14:34 98.2 F 72 18 150/78 96 05/14/22 11:33 76 05/14/22 11:22 70 05/14/22 07:47 74 05/14/22 07:42 97.7 F 61 18 145/72 95 05/14/22 07:36 68 96 05/14/22 03:30 70 05/14/22 03:12 68 05/14/22 01:23 97.7 F 66 18 136/67 98 05/13/22 23:45 74 05/13/22 23:35 76 05/13/22 20:57 97.6 F 84 18 177/79 94 L 05/13/22 19:28 65 18 150/72 96 05/13/22 18:24 68 05/13/22 18:14 68 05/13/22 15:40 97.4 F L 78 32 H 194/74 89 L Intake and Output 05/13/22 05/14/22 05/14/22 22:59 06:59 14:59 Intake Total 2048 Balance 2048 Intake: Intake, IV Titration 1749 Amount Azithromycin 500 mg In 250 Sodium Chloride 0.9% 250 ml @ 250 mls/hr IVPB ONCE STA Rx#:[id number] Sodium Chloride 0.9% 1, 999 000 ml @ 999 mls/hr IV . Q1H1M ONE Rx#:[id number] Sodium Chloride 0.9% 500 500 ml 500 ml @ 999 mls/hr IV .Q31M ONE Rx#:[id number] Oral 300 Other: Voiding Method Toilet # Voids 3 # Bowel Movements 0 Weight 52.163 kg GENERAL EXAM: Alert, pleasant 81-year-old female, on 3 L nasal cannula, fairly comfortable in no apparent distress. HEAD: Normocephalic. EYES: Normal reaction of pupils, equal size. NOSE: Clear with pink turbinates. THROAT: No erythema or exudates. NECK: No masses, no JVD. CHEST: No chest wall deformity. LUNGS: Equal air entry with few rhonchi in the right lung base. CVS: S1 and S2 normal with no audible murmur, regular rhythm. ABDOMEN: No hepatosplenomegaly, normal bowel sounds, no guarding or rigidity. SPINE: No scoliosis or deformity SKIN: No rashes CENTRAL NERVOUS SYSTEM: No focal deficits, tone is normal in all 4 extremities. EXTREMITIES: There is no peripheral edema. No clubbing, no cyanosis. Peripheral pulses are intact. Results - Laboratory Findings CBC and BMP: 05/13/22 16:57 05/13/22 16:57 PT/INR, D-dimer PT 11.3 sec (9.0-12.0) 05/13/22 16:57 INR 1.1 (<1.2) 05/13/22 16:57 D-Dimer 0.46 mg/L FEU (<0.60) 05/14/22 12:45 Abnormal lab findings: Abnormal Labs 05/13/22 05/13/22 05/13/22 16:57 16:57 16:57 WBC 10.9 H Neutrophils # 9.6 H Lymphocytes # 0.9 L VBG pCO2 Sodium 133 L BUN 23 H Glucose 237 H POC Glucose (mg/dL) Plasma Lactic Acid Imer 2.7 H* AST 54 H ALT 38 H 05/13/22 05/13/22 05/14/22 16:57 20:57 01:18 WBC Neutrophils # Lymphocytes # VBG pCO2 55 H Sodium BUN Glucose POC Glucose (mg/dL) Plasma Lactic Acid Imer 4.1 H* 4.1 H* AST ALT 05/14/22 05/14/22 05/14/22 04:56 05:51 09:41 WBC Neutrophils # Lymphocytes # VBG pCO2 Sodium BUN Glucose POC Glucose (mg/dL) 214 H Plasma Lactic Acid Imer 3.6 H* 5.0 H* AST ALT 05/14/22 05/14/22 11:53 12:45 WBC Neutrophils # Lymphocytes # VBG pCO2 Sodium BUN Glucose POC Glucose (mg/dL) 242 H Plasma Lactic Acid Imer 4.6 H* AST ALT - Diagnostic Findings Chest x-ray: image reviewed Assessment and Plan Assessment: Acute on chronic hypoxemic respiratory failure secondary to an acute exacerbation of chronic obstructive pulmonary disease and possible limited right lower lobe community-acquired pneumonia. Failed outpatient treatment. History of oxygen dependent chronic obstructive pulmonary disease Former smoker History of pulmonary nodules being followed in the outpatient setting History of lung cancer status post radiation Chronic atrial fibrillation, anticoagulated with Eliquis Hypertension Hyperlipidemia Diabetes mellitus History of anxiety/depression History of DVT History of CVA Coronary disease with previous stent placement History of peripheral vascular disease with previous stent placement Status post permanent pacemaker implantation Plan: The patient was seen and evaluated Chest x-ray, labs and medications reviewed Obtain a CT angiogram Continue Symbicort, DuoNeb inhalations, IV Solu-Medrol Continue antibiotics for now Obtain a pro-calcitonin Titrate the FiO2 as tolerated We'll continue to follow and make further recommendations based on her clinical status I have personally seen and examined the patient, performed the documentation and the assessment and plan as written. Number of minutes spent on the visit: 20.
[2022-05-14 16:47] LABS: Glucose,Whole Blood 183 mg/dL (70-110)
[2022-05-14 19:20] LABS: Glucose,Whole Blood 228 mg/dL (70-110)
[2022-05-14] MEDS: MIRTAZAPINE 15 MG TAB PO SCH (21:33)
[2022-05-14] MEDS: busPIRone HCl 10 MG TAB PO SCH (21:33)
[2022-05-14 21:48] LABS: Glucose,Whole Blood 267 mg/dL (70-110)
[2022-05-14] MEDS ORDERED: SODIUM CHLORIDE 0.9% 1,000 ML IV SCH (22:30)
[2022-05-15] MEDS: IPRATROPIUM-ALBUTEROL 3 ML NEB INHALATION SCH ×6 (01:37→21:49)
[2022-05-15 06:21] LABS: Glucose,Whole Blood 298 mg/dL (70-110)
[2022-05-15] MEDS: INSULIN ASPART (NovoLOG) 100 UNIT/ML VIAL SQ SCH ×4 (07:04→19:48)
[2022-05-15] MEDS: SYMBICORT 80-4.5 MCG INHALER INHALATION SCH ×2 (07:58→21:50)
[2022-05-15 08:10] LABS: ALT 31 U/L (4-34); AST 36 U/L (14-36); African American GFR (CKD) 89 (>60 ml/min/1.73 sqM); Albumin 3.5 g/dL (3.5-5.0); Albumin/Globulin Ratio 1.5; Alkaline Phosphatase 78 U/L (38-126); Anion Gap 6 mmol/L; Blood Urea Nitrogen 21 mg/dL (7-17); Calcium 9.3 mg/dL (8.4-10.2); Carbon Dioxide 28 mmol/L (22-30); Chloride 101 mmol/L (98-107); Globulin 2.4 g/dL; Glucose 284 mg/dL (74-99); Non-African American GFR(CKD) 77 (>60 ml/min/1.73 sqM); Potassium 3.3 mmol/L (3.5-5.1); Sodium 135 mmol/L (137-145); Total Bilirubin 0.3 mg/dL (0.2-1.3); Total Protein 5.9 g/dL (6.3-8.2)
--- NOTE | 2022-05-15 08:15 | US ---
EXAMINATION TYPE: US liver DATE OF EXAM: 05/15/2022 COMPARISON: NONE CLINICAL HISTORY: ruq tenderness. Tenderness right side. TECHNIQUE: Multiple sonographic images of the right upper quadrant are obtained. FINDINGS: EXAM MEASUREMENTS: Liver Length: 12 cm Gallbladder Wall: Surgically absent CBD: .3 cm Right Kidney: 8.2 x 3.5 x 3.5 cm [employer] NOTES: Pancreas: Tail obscured by overlying bowel gas Liver: wnl Gallbladder: Surgically absent Evidence for sonographic De León's sign: No CBD: wnl Right Kidney: wnl IMPRESSION: No discrete abnormality appreciated.
[2022-05-15] MEDS: methylPREDNISolone SOD SUCCI 40 MG/ML 1 ML VIAL IV SCH (08:53)
[2022-05-15] MEDS: ATORVASTATIN 40 MG TAB PO SCH ×2 (09:25→21:38)
[2022-05-15] MEDS: APIXABAN 2.5 MG TABLET PO SCH ×2 (09:25→21:38)
[2022-05-15] MEDS: PANTOPRAZOLE 40 MG TABLET PO SCH (09:25)
[2022-05-15] MEDS: amLODIPine 2.5 MG TAB PO SCH (09:25)
[2022-05-15] MEDS: CLOPIDOGREL 75 MG TAB PO SCH (09:25)
[2022-05-15] MEDS: METOPROLOL SUCCINATE (ER) 25 MG TAB.ER.24H PO SCH ×2 (09:25→21:38)
[2022-05-15] MEDS: CHOLECALCIFEROL 25 MCG (1000 IU) TABLET PO SCH (09:25)
[2022-05-15] MEDS: LIPASE 5,000/PROTEASE 17,000/AMYLASE 24,000 PO SCH (09:27)
[2022-05-15] MEDS: VIT A,C & E-LUTEIN-MINERALS 1 EACH TAB PO SCH ×2 (09:27→21:38)
[2022-05-15] MEDS: DULoxetine HCL 30 MG CAPSULE.DR PO SCH ×2 (09:27→21:38)
[2022-05-15 10:50] LABS: Glucose,Whole Blood 201 mg/dL (70-110)
--- NOTE | 2022-05-15 12:45 | P.PN ---
Subjective Progress Note Date: 05/15/22 Principal diagnosis: acute exacerbation of COPD This is a very pleasant 81-year-old female patient with a known history of oxygen dependent chronic obstructive pulmonary disease, diabetes mellitus, anxiety/depression, atrial fibrillation anticoagulated with Eliquis, congestive heart failure. She presented here to the emergency room yesterday with 2-3 day history of increasing shortness of breath, cough and congestion. She was treated with antibiotics and steroids in the outpatient setting without much improvement. She does have history of lung cancer with previous radiation. She follows with Dr. Koch in our office for the same. She had been doing well the past several months and seeing him. Chest x-ray shows some minimal infiltrate in the right lower lobe. White count 10.9. Hemoglobin 12.4. D-dimer 0.46. Sodium 133. Potassium 3.9. BUN 23. Creatinine 0.84. Glucose 237. Lactic acid 4.1. AST 54. ALT 38. Hawthorne virus not detected. Influenza screen negative. She is seen today in consultation on the regular medical floor. She is currently resting comfortably in bed. Awake and alert in no acute distress. She does state she has significant dyspnea on exertion. She has productive cough of clear phlegm. She's been initiated on Symbicort, DuoNeb inhalations, IV Solu- Medrol. Maintaining good O2 saturations in the mid 90s on 3 L/m per nasal cannu la. Afebrile. Patient was reevaluated today on 05/15/22, feeling better, breathing easier, less cough and less wheezing less shortness of breath. Pro-calcitonin level came back normal. Chest x-ray showed nonspecific nodules and scarring in the lungs bilaterally especially in the right lower lobe area. Clinically the patient is feeling better, hence I will clear the patient to be discharged home on her usual bronchodilators plus a course of prednisone 30 mg tapered over 15 days, no need for antibiotics on outpatient basis. Patient is to come back and see me in the office in one week. Patient does have Trelegy Ellipta, she has DuoNeb updrafts 4 times a day and when necessary, and I believe the patient could be discharged and treated in outpatient basis Objective - Vital Signs Vital signs: Vital Signs Temp 98.6 F 05/15/22 08:00 Pulse 75 05/15/22 12:12 Resp 17 05/15/22 08:00 BP 161/70 05/15/22 08:00 Pulse Ox 97 05/15/22 09:30 FiO2 Intake & Output 05/14/22 05/15/22 05/15/22 18:59 06:59 18:59 Other: # Voids 3 2 - Exam Physical Exam: Revealed 81-year-old female in no distress. Head: Atraumatic, normocephalic. HEENT:[Neck is supple.] [No neck masses.] [No thyromegaly.] [No JVD.] Chest: [diminished breath sounds at the bases no crackles or rhonchi or wheezes] Cardiac Exam: [Normal S1 and S2, no S3 gallop, no murmur.] Abdomen: [Soft, nontender, no megaly, no rebound, no guarding, normal bowel sounds.] Extremities: [No clubbing, no edema, no cyanosis.] Neurological Exam: [No focal neurologic deficit.] psychiatric: Normal mood affect and normal mental status examination. Skin: No rashes - Labs CBC & Chem 7: 05/13/22 16:57 05/15/22 06:06 Labs: Abnormal Lab Results - Last 24 Hours (Table) 05/14/22 05/14/22 05/14/22 Range/Units 12:45 16:04 16:46 Sodium (137-145) mmol/L Potassium (3.5-5.1) mmol/L BUN (7-17) mg/dL Glucose (74-99) mg/dL POC Glucose (mg/dL) 183 H (70-110) mg/dL Plasma Lactic Acid Imer 4.6 H* 4.0 H* (0.7-2.0) mmol/L Total Protein (6.3-8.2) g/dL 05/14/22 05/14/22 05/14/22 Range/Units 19:18 19:52 21:47 Sodium (137-145) mmol/L Potassium (3.5-5.1) mmol/L BUN (7-17) mg/dL Glucose (74-99) mg/dL POC Glucose (mg/dL) 228 H 267 H (70-110) mg/dL Plasma Lactic Acid Imer 3.0 H* (0.7-2.0) mmol/L Total Protein (6.3-8.2) g/dL 05/15/22 05/15/22 05/15/22 Range/Units 06:06 06:06 06:21 Sodium 135 L (137-145) mmol/L Potassium 3.3 L (3.5-5.1) mmol/L BUN 21 H (7-17) mg/dL Glucose 284 H (74-99) mg/dL POC Glucose (mg/dL) 298 H (70-110) mg/dL Plasma Lactic Acid Imer 2.8 H* (0.7-2.0) mmol/L Total Protein 5.9 L (6.3-8.2) g/dL 05/15/22 05/15/22 Range/Units 10:47 11:30 Sodium (137-145) mmol/L Potassium (3.5-5.1) mmol/L BUN (7-17) mg/dL Glucose (74-99) mg/dL POC Glucose (mg/dL) 201 H (70-110) mg/dL Plasma Lactic Acid Imer 2.7 H* (0.7-2.0) mmol/L Total Protein (6.3-8.2) g/dL Microbiology - Last 24 Hours (Table) 05/13/22 19:23 Blood Culture - Preliminary Blood No Growth after 24 hours 05/13/22 19:00 Blood Culture - Preliminary Blood No Growth after 24 hours Assessment and Plan Assessment: Acute on chronic hypoxemic respiratory failure secondary to an acute exacerbation of chronic obstructive pulmonary disease, baseline FEV1 is 50% at best from a year ago. , no evidence of pneumonia based on CT of the chest and based on Johny stone in level. History of oxygen dependent chronic obstructive pulmonary disease Former smoker History of pulmonary nodules being followed in the outpatient setting History of lung cancer status post radiation Chronic atrial fibrillation, anticoagulated with Eliquis Hypertension Hyperlipidemia Diabetes mellitus History of anxiety/depression History of DVT History of CVA Coronary disease with previous stent placement History of peripheral vascular disease with previous stent placement Status post permanent pacemaker implantation Plan: discussed and reviewed the results of her recent CT of the chest Reassured about the relative stability of the nodules and the fact that she has scarring in the right lung will clear the patient to be discharged home on prednisone burst and taper plus her Trelegy Ellipta , and her DuoNeb updrafts at home, no need for antibiotics. patient to see me in the office in one week post discharge Time with Patient: Less than 30
[2022-05-15] MEDS ORDERED: SODIUM CHLORIDE 0.9% 500 ML 500 ML IV ONE (14:26)
[2022-05-15] MEDS ORDERED: amLODIPine 5 MG TAB PO SCH (14:30)
[2022-05-15 16:54] LABS: Glucose,Whole Blood 236 mg/dL (70-110)
[2022-05-15 19:46] LABS: Glucose,Whole Blood 141 mg/dL (70-110)
[2022-05-15] MEDS: MIRTAZAPINE 15 MG TAB PO SCH (21:38)
[2022-05-15] MEDS: busPIRone HCl 10 MG TAB PO SCH (21:38)
[2022-05-16] MEDS: IPRATROPIUM-ALBUTEROL 3 ML NEB INHALATION SCH ×4 (00:57→12:47)
[2022-05-16] MEDS ORDERED: hydrALAZINE HCL 20 MG/ML 1 ML VIAL IVP PRN (02:30)
[2022-05-16 05:54] LABS: Glucose,Whole Blood 214 mg/dL (70-110)
[2022-05-16] MEDS: INSULIN ASPART (NovoLOG) 100 UNIT/ML VIAL SQ SCH ×2 (06:21→11:59)
[2022-05-16] MEDS: ATORVASTATIN 40 MG TAB PO SCH (08:37)
[2022-05-16] MEDS: VIT A,C & E-LUTEIN-MINERALS 1 EACH TAB PO SCH (08:37)
[2022-05-16] MEDS: METOPROLOL SUCCINATE (ER) 25 MG TAB.ER.24H PO SCH (08:37)
[2022-05-16] MEDS: PANTOPRAZOLE 40 MG TABLET PO SCH (08:37)
[2022-05-16] MEDS: APIXABAN 2.5 MG TABLET PO SCH (08:37)
[2022-05-16] MEDS: DULoxetine HCL 30 MG CAPSULE.DR PO SCH (08:37)
[2022-05-16] MEDS: LIPASE 5,000/PROTEASE 17,000/AMYLASE 24,000 PO SCH (08:37)
[2022-05-16] MEDS: CLOPIDOGREL 75 MG TAB PO SCH (08:37)
[2022-05-16] MEDS: CHOLECALCIFEROL 25 MCG (1000 IU) TABLET PO SCH (08:37)
[2022-05-16] MEDS ORDERED: predniSONE 10 MG TAB PO SCH (09:00)
[2022-05-16] MEDS ORDERED: amLODIPine 5 MG TAB PO SCH (09:00)
[2022-05-16] MEDS: SYMBICORT 80-4.5 MCG INHALER INHALATION SCH (09:03)
--- NOTE | 2022-05-16 09:05 | P.PN ---
Subjective This is a pleasant 81 years old female with multiple medical problems as below Patient states that she is coming to the hospital because she's been having shortness of breath for about a week, slowly progressive and associated with cough and yellow white phlegm, she called her PCP Dr. Muñoz yesterday who sent her to the hospital She denies any chest pain but she is complaining of from right upper quadrant pain and tenderness and right shoulder pain although she says that she has this pain on and off for many years but the right upper quadrant tenderness she states she have it for 2 weeks. She states that she has history of lung cancer 2011 and she received radiotherapy. Recently she is been followed closely with Dr. Justin because she thinks they found a spot about 2-3 month ago. She has some diarrhea yesterday but not today, she is not eating much and feeling nausea. She feels her abdomen is full each time she eats. She denies dysuria urgency, she has little headache or dizziness but no significant weakness or numbness She quit smoking 2011, no alcohol or illicit drugs. Patient currently saturating 95% on 2 L oxygen via nasal cannula. Patient is afebrile. WBC is 10.9 which is slightly elevated, so CBC is unremarkable. INR 1.1. Venous pH normal 7.31 pCO2 slightly elevated at 55. Elevated lactic acid 2.7-5. BMP and liver enzymes were unremarkable except for mildly elevated AST 54 and ALT 38. Bilirubin is normal. Troponin and proBNP are negative. Chest x-ray: No significant change in the right lower lobe infiltrate EKG showing normal sinus rhythm at [address]-T changes Patient was admitted with pulmonary team consult 05/15/2012 Patient breathing milian is doing better and patient was cleared for discharge by pulmonary team today. Her exertional dyspnea is improving. She is placed on oral prednisone However patient still somewhat dehydrated because she was nothing by mouth overnight for liver ultrasound which was unremarkable for acute process, her lactic acid is elevated, we'll going to continue with normal saline ID and monitor lactic acid. Patient also does not feel comfortable leaving today. However plan discussed with her and she is agreeable. She complains from epigastric fullness with mild discomfort but this is chronic or 2 years therefore recommended to the patient to follow-up outpatient with Dr. Araiza for EGD, but this can be done as an outpatient and patient agreed. Risk of cancer explained for the patient Patient also complains from right rib pain, ongoing on and off for 12 years after she received radiotherapy that area. Antibiotics was discontinued Objective - Vital Signs Vital signs: Vital Signs Temp 98.7 F 05/15/22 13:29 Pulse 81 05/15/22 13:29 Resp 17 05/15/22 13:29 BP 176/68 05/15/22 13:29 Pulse Ox 95 05/15/22 13:29 FiO2 Intake & Output 05/14/22 05/15/22 05/15/22 18:59 06:59 18:59 Other: # Voids 3 2 - Exam GENERAL: The patient is alert and oriented x3, not in any acute distress. Well developed, well nourished. HEENT: Pupils are round and equally reacting to light. EOMI. No scleral icterus. No conjunctival pallor. Normocephalic, atraumatic. No pharyngeal erythema. No thyromegaly. CARDIOVASCULAR: S1 and S2 present. No murmurs, rubs, or gallops. -PULMONARY: Chest is clear to auscultation, no crackles. Scattered wheezing ABDOMEN: Soft, nontender, nondistended, normoactive bowel sounds. No palpable organomegaly. MUSCULOSKELETAL: No joint swelling or deformity. EXTREMITIES: No cyanosis, clubbing, or pedal edema. NEUROLOGICAL: Gross neurological examination did not reveal any focal deficits. SKIN: No rashes. no petechiae. - Labs CBC & Chem 7: 05/13/22 16:57 05/15/22 06:06 Labs: Abnormal Lab Results - Last 24 Hours (Table) 05/14/22 05/14/22 05/14/22 Range/Units 16:04 16:46 19:18 Sodium (137-145) mmol/L Potassium (3.5-5.1) mmol/L BUN (7-17) mg/dL Glucose (74-99) mg/dL POC Glucose (mg/dL) 183 H 228 H (70-110) mg/dL Plasma Lactic Acid Imer 4.0 H* (0.7-2.0) mmol/L Total Protein (6.3-8.2) g/dL 05/14/22 05/14/22 05/15/22 Range/Units 19:52 21:47 06:06 Sodium 135 L (137-145) mmol/L Potassium 3.3 L (3.5-5.1) mmol/L BUN 21 H (7-17) mg/dL Glucose 284 H (74-99) mg/dL POC Glucose (mg/dL) 267 H (70-110) mg/dL Plasma Lactic Acid Imer 3.0 H* (0.7-2.0) mmol/L Total Protein 5.9 L (6.3-8.2) g/dL 05/15/22 05/15/22 05/15/22 Range/Units 06:06 06:21 10:47 Sodium (137-145) mmol/L Potassium (3.5-5.1) mmol/L BUN (7-17) mg/dL Glucose (74-99) mg/dL POC Glucose (mg/dL) 298 H 201 H (70-110) mg/dL Plasma Lactic Acid Imer 2.8 H* (0.7-2.0) mmol/L Total Protein (6.3-8.2) g/dL 05/15/22 Range/Units 11:30 Sodium (137-145) mmol/L Potassium (3.5-5.1) mmol/L BUN (7-17) mg/dL Glucose (74-99) mg/dL POC Glucose (mg/dL) (70-110) mg/dL Plasma Lactic Acid Imer 2.7 H* (0.7-2.0) mmol/L Total Protein (6.3-8.2) g/dL Microbiology - Last 24 Hours (Table) 05/13/22 19:23 Blood Culture - Preliminary Blood No Growth after 24 hours 05/13/22 19:00 Blood Culture - Preliminary Blood No Growth after 24 hours Assessment and Plan Assessment: Right lower lobe infiltrate, rule out pneumonia Right upper quadrant pain and tenderness Chronic atrial fibrillation on Eliquis history of lung cancer status post radiotherapy in 2012 Hypertension Hyperlipidemia Diabetes mellitus History of coronary artery disease status post stents Chronic heart failure, status post permanent pacemaker History of CVA/TIA History of deep venous thrombosis History of GERD History of fibromyalgia History of osteoarthritis History of CPAP History of lung cancer status post radiation Chronic hypoxic respiratory failure and 2 L oxygen via nasal cannula History of hiatal hernia Plan: continue with anitibotic , currently on Zithromax and Rocephin, continue with steroids and breathing treatment Pulmonary team consult follow-up d-dimer and CT of the chest ordered by pulmonary team Patient is on oxygen Check liver ultrasound Labs and medication were reviewed.. Continue same treatment. Continue with symptomatic treatment. Resume home medication. Monitor labs and vitals. DVT and GI prophylaxis. Further recommendations as per clinical course of the patient DVT prophylaxis: Eliquis GI Prophylaxis: Ppi PT/OT: Pending Prognosis is guarded
[2022-05-16 11:44] LABS: Glucose,Whole Blood 201 mg/dL (70-110)
--- NOTE | 2022-05-16 12:02 | P.PN ---
Subjective Progress Note Date: 05/16/22 This is a very pleasant 81-year-old female patient with a known history of oxygen dependent chronic obstructive pulmonary disease, diabetes mellitus, anxiety/depression, atrial fibrillation anticoagulated with Eliquis, congestive heart failure. She presented here to the emergency room yesterday with 2-3 day history of increasing shortness of breath, cough and congestion. She was treated with antibiotics and steroids in the outpatient setting without much improvement. She does have history of lung cancer with previous radiation. She follows with Dr. Koch in our office for the same. She had been doing well the past several months and seeing him. Chest x-ray shows some minimal infiltrate in the right lower lobe. White count 10.9. Hemoglobin 12.4. D-dimer 0.46. Sodium 133. Potassium 3.9. BUN 23. Creatinine 0.84. Glucose 237. Lactic acid 4.1. AST 54. ALT 38. Hawthorne virus not detected. Influenza screen negative. She is seen today in consultation on the regular medical floor. She is currently resting comfortably in bed. Awake and alert in no acute distress. She does state she has significant dyspnea on exertion. She has productive cough of clear phlegm. She's been initiated on Symbicort, DuoNeb inhalations, IV Solu- Medrol. Maintaining good O2 saturations in the mid 90s on 3 L/m per nasal cannula. Afebrile. Patient was reevaluated today on 05/15/22, feeling better, breathing easier, less cough and less wheezing less shortness of breath. Pro-calcitonin level came back normal. Chest x-ray showed nonspecific nodules and scarring in the lungs bilaterally especially in the right lower lobe area. Clinically the patient is feeling better, hence I will clear the patient to be discharged home on her usual bronchodilators plus a course of prednisone 30 mg tapered over 15 days, no need for antibiotics on outpatient basis. Patient is to come back and see me in the office in one week. Patient does have Trelegy Ellipta, she has DuoNeb updrafts 4 times a day and when necessary, and I believe the patient could be discharged and treated in outpatient basis Patient is seen today 05/16/2020 to follow up on the regular medical floor. She is sitting up in bed. Awake and alert in no acute distress. Maintaining O2 saturations in the mid 90s on 2 L/m per nasal cannula. Afebrile. Hemodynamically stable. Blood culture reveals no growth. Blood glucose 201. She is continued on Symbicort, DuoNeb inhalations, prednisone taper. Anticoagulated with Eliquis. Objective - Vital Signs Vital signs: Vital Signs Temp 97.8 F 05/16/22 07:28 Pulse 68 05/16/22 09:15 Resp 17 05/16/22 07:28 BP 122/71 05/16/22 07:28 Pulse Ox 97 05/16/22 09:16 FiO2 21 05/16/22 03:49 Intake & Output 05/15/22 05/16/22 05/16/22 18:59 06:59 18:59 Other: # Voids 5 - Exam GENERAL EXAM: Alert, 81-year-old female, on 2 L nasal cannula, fairly c omfortable in no apparent distress. HEAD: Normocephalic. EYES: Normal reaction of pupils, equal size. NOSE: Clear with pink turbinates. THROAT: No erythema or exudates. NECK: No masses, no JVD. CHEST: No chest wall deformity. LUNGS: Equal air entry with few rhonchi in the right lung base. CVS: S1 and S2 normal with no audible murmur, regular rhythm. ABDOMEN: No hepatosplenomegaly, normal bowel sounds, no guarding or rigidity. SPINE: No scoliosis or deformity SKIN: No rashes CENTRAL NERVOUS SYSTEM: No focal deficits, tone is normal in all 4 extremities. EXTREMITIES: There is no peripheral edema. No clubbing, no cyanosis. Peripheral pulses are intact. - Labs CBC & Chem 7: 05/13/22 16:57 05/15/22 06:06 Labs: Abnormal Lab Results - Last 24 Hours (Table) 05/15/22 05/15/22 05/15/22 Range/Units 11:30 15:16 16:52 POC Glucose (mg/dL) 236 H (70-110) mg/dL Plasma Lactic Acid Imer 2.7 H* 5.2 H* (0.7-2.0) mmol/L 05/15/22 05/16/22 05/16/22 Range/Units 19:45 03:43 05:53 POC Glucose (mg/dL) 141 H 214 H (70-110) mg/dL Plasma Lactic Acid Imer 3.3 H* (0.7-2.0) mmol/L 05/16/22 Range/Units 11:44 POC Glucose (mg/dL) 201 H (70-110) mg/dL Plasma Lactic Acid Imer (0.7-2.0) mmol/L Microbiology - Last 24 Hours (Table) 05/13/22 19:23 Blood Culture - Preliminary Blood No Growth after 48 hours 05/13/22 19:00 Blood Culture - Preliminary Blood No Growth after 48 hours Assessment and Plan Assessment: Acute on chronic hypoxemic respiratory failure secondary to an acute exacerbation of chronic obstructive pulmonary disease and possible limited right lower lobe community-acquired pneumonia. Failed outpatient treatment. History of oxygen dependent chronic obstructive pulmonary disease Former smoker History of pulmonary nodules being followed in the outpatient setting History of lung cancer status post radiation Chronic atrial fibrillation, anticoagulated with Eliquis Hypertension Hyperlipidemia Diabetes mellitus History of anxiety/depression History of DVT History of CVA Coronary disease with previous stent placement History of peripheral vascular disease with previous stent placement Status post permanent pacemaker implantation Plan: The patient was seen and evaluated Medications reviewed Complete a prednisone taper Taking her home pulmonary medications Follow up in the office in one to two-week Cleared for discharge from the pulmonary standpoint I have personally seen and examined the patient, performed the documentation and the assessment and plan as written. Number of minutes spent on the visit: 10.
[2022-05-16 13:46] VITALS: BP 127/80; PULSE 78; RESP 16; TEMP 98.7
--- NOTE | 2022-05-21 06:09 | CDI ---
Documentation Clarification Form Date: 05/21/22 From: Charlette Townsend Admit Date: 05/13/2022 06:09:00 PM Patient Name: Jenni Hercules Visit Number: [id number] Discharge Date: 05/16/2022 03:21:00 PM ATTENTION: The Clinical Documentation Specialists (CDI) and [facility] Coding Staff appreciate your assistance in clarifying documentation. Please respond to the clarification below the line at the bottom and electronically sign. The CDI & [facility] Coding staff will review the response and follow-up if needed. Please note: Queries are made part of the Legal Health Record. If you have any questions, please contact the author of this message via ITS. Dr. Karen Martinez, Conflicting documentation has been found in the medical record. As attending physician, please provide clarification. Per Dr Koch's 05/15 PN - No evidence of pneumonia based on CT of chest and based on Procalcitonin. Per Dr Koch's 05/16 PN - Acute on chronic hypoxemic respiratory failure secondary to an acute exacerbation of chronic obstructive pulmonary disease and possible limited right lower lobe community-acquired pneumonia. Failed outpatient treatment. Per Dr Brizuela's 05/15 PN - Right lower lobe infiltrate, rule out pneumonia. History/Risk Factors: Hx of lung cancer & received radiotherapy, HTN w heart failure, chronic a. fib, T2DM Clinical Indicators: Patient states that she is coming to the hospital because she's been having shortness of breath for about a week, slowly progressive and associated with cough and yellow white phlegm, she called her PCP Dr. Muñoz yesterday who sent her to the hospital Treatment: IV Zithromax, Pneumonia protocol, nebulizer, IV Solu-Medrol, IV Rocephin Please clarify which diagnosis is most appropriate: [ x ] Pneumonia [ ] Acute Tracheobronchitis [ ] Other (please specify) [ ] Unable to determine MTDD
--- NOTE | 2022-05-28 15:19 | P.DS ---
Providers Date of admission: 05/13/22 18:09 Expected date of discharge: 05/16/22 Attending physician: Samara Pack Consults: 05/13/22 18:03 Consult Physician Stat Consulting Provider: Markell Koch Reason/Comments: aecopd failing outpatient treatment Do you want consulting provider notified?: Yes Primary care physician: Nohemi Natalie [facility] Course: Discharge diagnosis Right lower lobe infiltrate due to pneumonia. Failed outpatient antibiotic therapy. Acute on chronic hypoxic respiratory failure secondary to COPD and pneumonia. Acute COPD exacerbation Right upper quadrant pain and tenderness Chronic atrial fibrillation on Eliquis history of lung cancer status post radiotherapy in 2012 Hypertension Hyperlipidemia Diabetes mellitus History of coronary artery disease status post stents Chronic heart failure, status post permanent pacemaker History of CVA/TIA History of deep venous thrombosis History of GERD History of fibromyalgia History of osteoarthritis History of CPAP History of lung cancer status post radiation Chronic hypoxic respiratory failure and 2 L oxygen via nasal cannula History of hiatal hernia Hospital course This is a pleasant 81 years old female with multiple medical problems as below Patient states that she is coming to the hospital because she's been having shortness of breath for about a week, slowly progressive and associated with cough and yellow white phlegm, she called her PCP Dr. Muñoz yesterday who sent her to the hospital She denies any chest pain but she is complaining of from right upper quadrant p ain and tenderness and right shoulder pain although she says that she has this pain on and off for many years but the right upper quadrant tenderness she states she have it for 2 weeks. She states that she has history of lung cancer 2011 and she received radiotherapy. Recently she is been followed closely with Dr. Justin because she thinks they found a spot about 2-3 month ago. She has some diarrhea yesterday but not today, she is not eating much and feeling nausea. She feels her abdomen is full each time she eats. She denies dysuria urgency, she has little headache or dizziness but no signi ficant weakness or numbness She quit smoking 2011, no alcohol or illicit drugs. Patient currently saturating 95% on 2 L oxygen via nasal cannula. Patient is afebrile. WBC is 10.9 which is slightly elevated, so CBC is unremarkable. INR 1.1. Venous pH normal 7.31 pCO2 slightly elevated at 55. Elevated lactic acid 2.7-5. BMP and liver enzymes were unremarkable except for mildly elevated AST 54 and ALT 38. Bilirubin is normal. Troponin and proBNP are negative. Chest x-ray: No significant change in the right lower lobe infiltrate EKG showing normal sinus rhythm at [address]-T changes Patient was admitted with pulmonary team consult 05/15/2012 Patient breathing milian is doing better and patient was cleared for discharge by pulmonary team today. Her exertional dyspnea is improving. She is placed on oral prednisone However patient still somewhat dehydrated because she was nothing by mouth overnight for liver ultrasound which was unremarkable for acute process, her lactic acid is elevated, we'll going to continue with normal saline ID and monitor lactic acid. Patient also does not feel comfortable leaving today. However plan discussed with her and she is agreeable. She complains from epigastric fullness with mild discomfort but this is chronic or 2 years therefore recommended to the patient to follow-up outpatient with Dr. Araiza for EGD, but this can be done as an outpatient and patient agreed. Risk of cancer explained for the patient Patient also complains from right rib pain, ongoing on and off for 12 years after she received radiotherapy that area. Antibiotics was discontinued 05/16/2022 Patient is currently in the medical floor. Sitting in the bed. Awake alert and oriented. Currently requiring oxygen at 2 L via nasal cannula and saturating at 90%. Titrate down to room air. Patient is being current prednisone tapering course. Breathing status is much improved. Patient is cleared from pulmonary standpoint and is being discharged home today. Laboratory reviewed. - Exam GENERAL: The patient is alert and oriented x3, not in any acute distress. Well developed, well nourished. HEENT: Pupils are round and equally reacting to light. EOMI. No scleral icterus. No conjunctival pallor. Normocephalic, atraumatic. No pharyngeal erythema. No thyromegaly. CARDIOVASCULAR: S1 and S2 present. No murmurs, rubs, or gallops. -PULMONARY: Chest is clear to auscultation, no crackles. no wheezing ABDOMEN: Soft, nontender, nondistended, normoactive bowel sounds. No palpable organomegaly. MUSCULOSKELETAL: No joint swelling or deformity. EXTREMITIES: No cyanosis, clubbing, or pedal edema. NEUROLOGICAL: Gross neurological examination did not reveal any focal deficits. SKIN: No rashes. no petechiae. Vital signs: Vital Signs Temp 97.8 F 05/16/22 07:28 Pulse 68 05/16/22 09:15 Resp 17 05/16/22 07:28 BP 122/71 05/16/22 07:28 Pulse Ox 97 05/16/22 09:16 FiO2 21 05/16/22 03:49 Intake & Output 05/15/22 05/16/22 05/16/22 18:59 06:59 18:59 Other: # Voids 5 Time taking greater than 35 minutes in patient care out of which more than 50% was spent counseling and coordination of care. Patient Condition at Discharge: Stable Plan - Discharge Summary Discharge Rx Participant: No New Discharge Prescriptions: New predniSONE See Taper PO DIRECTED #18 tab Ipratropium-Albuterol Nebulize [Duoneb 0.5 mg-3 mg/3 ml Soln] 3 ml INHALATION QID PRN #90 ml PRN Reason: Shortness Of Breath Continue Pantoprazole Sodium [Protonix] 40 mg PO DAILY Apixaban [Eliquis] 2.5 mg PO BID tablet Fluticasone/Umeclidin/Vilanter [Trelegy Ellipta 100-62.5-25] 1 puff INHALATION RT-DAILY L.acidoph,Paracasei, B.lactis [Probiotic] 1 cap PO DAILY Clopidogrel [Plavix] 75 mg PO DAILY #30 tab Metoprolol Succinate (ER) [Toprol XL] 25 mg PO BID busPIRone HCl [Buspar] 10 mg PO HS amLODIPine BESYLATE [Norvasc] 2.5 mg PO DAILY Vits A,C,E/Lutein/Minerals [Ocuvite with Lutein Tablet] 1 tab PO BID traMADol HCl [Ultram] 50 mg PO Q6HR PRN 3 Days #12 tab PRN Reason: Pain metFORMIN HCL ER [Glucophage XR] 500 mg PO DAILY DULoxetine HCL [Cymbalta] 30 mg PO BID Cholecalciferol [Vitamin D3 (25 Mcg = 1000 Iu)] 25 mcg PO DAILY Mirtazapine [Remeron] 7.5 mg PO HS Benzonatate [Tessalon Perle] 200 mg PO TID PRN PRN Reason: Cough Atorvastatin Calcium [Lipitor] 40 mg PO BID Ergocalciferol (Vitamin D2) [Drisdol (50,000 Iu)] 1,250 mcg PO WE Discontinued levoFLOXacin 500 mg PO DAILY predniSONE [Deltasone] See Taper PO DIRECTED Discharge Medication List Pantoprazole Sodium [Protonix] 40 mg PO DAILY 09/23/16 [History] Apixaban [Eliquis] 2.5 mg PO BID tablet 10/02/16 [Rx] Fluticasone/Umeclidin/Vilanter [Trelegy Ellipta 100-62.5-25] 1 puff INHALATION RT-DAILY 04/19/20 [History] L.acidoph,Paracasei, B.lactis [Probiotic] 1 cap PO DAILY 07/12/20 [History] Clopidogrel [Plavix] 75 mg PO DAILY #30 tab 08/10/20 [Rx] Metoprolol Succinate (ER) [Toprol XL] 25 mg PO BID 09/22/20 [History] busPIRone HCl [Buspar] 10 mg PO HS 09/22/20 [History] Cholecalciferol [Vitamin D3 (25 Mcg = 1000 Iu)] 25 mcg PO DAILY 08/06/21 [History] Mirtazapine [Remeron] 7.5 mg PO HS 08/06/21 [History] Vits A,C,E/Lutein/Minerals [Ocuvite with Lutein Tablet] 1 tab PO BID 08/06/21 [History] amLODIPine BESYLATE [Norvasc] 2.5 mg PO DAILY 08/06/21 [History] traMADol HCl [Ultram] 50 mg PO Q6HR PRN 3 Days #12 tab 08/09/21 [Rx] metFORMIN HCL ER [Glucophage XR] 500 mg PO DAILY 01/21/22 [History] Atorvastatin Calcium [Lipitor] 40 mg PO BID 05/13/22 [History] Benzonatate [Tessalon Perle] 200 mg PO TID PRN 05/13/22 [History] DULoxetine HCL [Cymbalta] 30 mg PO BID 05/13/22 [History] Ergocalciferol (Vitamin D2) [Drisdol (50,000 Iu)] 1,250 mcg PO WE 05/13/22 [History] Ipratropium-Albuterol Nebulize [Duoneb 0.5 mg-3 mg/3 ml Soln] 3 ml INHALATION QID PRN #90 ml 05/16/22 [Rx] predniSONE See Taper PO DIRECTED #18 tab 12/23/22 [Rx] Follow up Appointment(s)/Referral(s): Markell Koch MD [Family Provider] - 05/30/22 1:15 pm [facility], [NON-STAFF] - As Needed Nohemi Estrada MD [Primary Care Provider] - 1-2 days (Office closed. Please call Thursday for your appointment.) Anup Polk MD [STAFF PHYSICIAN] - 1 Week (Office closed.. Please call office Thursday for appointment.) Patient Instructions/Handouts: Acute Bronchitis (GEN), COPD (Chronic Obstructive Pulmonary Disease) (DC), Lactic Acidosis (GEN) Activity/Diet/Wound Care/Special Instructions: Updated oxygen order faxed to [facility]. Discharge Disposition: HOME WITH HOME HEALTH SERVICES
== END 2022-05-16 15:21 | disposition home health service (06) | DRG 193 ==
LOC: EC 15:39 → 4SSUR 18:09
PROVIDERS: ADMIT Hospitalist; ATTEND Hospitalist
DX: J18.9 Pneumonia, unspecified organism (principal); J96.21 Acute and chronic respiratory failure with hypoxia; J44.1 Chronic obstructive pulmonary disease with (acute) exacerbation; E87.20 Acidosis, unspecified; I48.20 Chronic atrial fibrillation, unspecified; J44.0 Chronic obstructive pulmonary disease with (acute) lower respiratory infection; I11.0 Hypertensive heart disease with heart failure; I50.9 Heart failure, unspecified; E11.9 Type 2 diabetes mellitus without complications; Z20.822 Contact with and (suspected) exposure to COVID-19; E86.0 Dehydration; E78.5 Hyperlipidemia, unspecified; I25.10 Atherosclerotic heart disease of native coronary artery without angina pectoris; I73.00 Raynaud's syndrome without gangrene; M79.7 Fibromyalgia; F41.9 Anxiety disorder, unspecified; F32.A Depression, unspecified; G47.30 Sleep apnea, unspecified; R10.11 Right upper quadrant pain; M25.511 Pain in right shoulder; H35.30 Unspecified macular degeneration; K21.9 Gastro-esophageal reflux disease without esophagitis; K44.9 Diaphragmatic hernia without obstruction or gangrene; R74.01 Elevation of levels of liver transaminase levels; M19.90 Unspecified osteoarthritis, unspecified site; Z79.01 Long term (current) use of anticoagulants; Z99.81 Dependence on supplemental oxygen; Z79.02 Long term (current) use of antithrombotics/antiplatelets; Z79.84 Long term (current) use of oral hypoglycemic drugs; Z79.899 Other long term (current) drug therapy; Z79.51 Long term (current) use of inhaled steroids; Z87.891 Personal history of nicotine dependence; Z92.3 Personal history of irradiation; Z85.118 Personal history of other malignant neoplasm of bronchus and lung; Z95.0 Presence of cardiac pacemaker; Z95.5 Presence of coronary angioplasty implant and graft; Z95.820 Peripheral vascular angioplasty status with implants and grafts; Z86.718 Personal history of other venous thrombosis and embolism; Z86.14 Personal history of Methicillin resistant Staphylococcus aureus infection; Z86.73 Personal history of transient ischemic attack (TIA), and cerebral infarction without residual deficits; Z82.5 Family history of asthma and other chronic lower respiratory diseases
CPT/HCPCS: 36415; 71046; 71260; 76705; 80048; 80053; 80076; 82803; 83605; 83735; 83880; 84145; 84484; 85025; 85379; 85610; 85730; 87040; 87070; 87502; 87635; 93005; 94640; 94760; 96365; 96375; 99285

== ENCOUNTER 2022-11-30 22:51 | Observation (INO) | payer MEDICARE, OTHER ==
[2022-11-30] MEDS ORDERED: SODIUM CHLORIDE 0.9% 1,000 ML IV STA (23:27)
[2022-12-01 00:05] LABS: Basophils % (A) 0 %; Eosinophils # (A) 0.2 k/uL (0-0.7); Eosinophils % (A) 2 %; HCT 34.3 % (34.0-46.0); HGB 11.2 gm/dL (11.4-16.0); Lymphocytes # (A) 2.2 k/uL (1.0-4.8); Lymphocytes % (A) 28 %; MCHC 32.7 g/dL (31.0-37.0); MCV 88.7 fL (80.0-100.0); Mean Platelet Volume 8.1; Monocytes # (A) 0.4 k/uL (0-1.0); Monocytes % (A) 5 %; Neutrophils % (A) 62 %; Platelet Count 200 k/uL (150-450); RBC 3.87 m/uL (3.80-5.40); RDW 13.8 % (11.5-15.5); WBC 8.1 k/uL (3.8-10.6)
[2022-12-01 00:20] LABS: Partial Thromboplastin Time 24.6 sec (22.0-30.0); Prothrombin Time 10.9 sec (9.0-12.0)
[2022-12-01 00:30] LABS: ALT 21 U/L (4-34); AST 30 U/L (14-36); African American GFR (CKD) >90 (>60 ml/min/1.73 sqM); Albumin 3.6 g/dL (3.5-5.0); Alkaline Phosphatase 62 U/L (38-126); Anion Gap 8 mmol/L; Blood Urea Nitrogen 16 mg/dL (7-17); Calcium 8.6 mg/dL (8.4-10.2); Carbon Dioxide 27 mmol/L (22-30); Chloride 100 mmol/L (98-107); Glucose 124 mg/dL (74-99); Lipase 88 U/L (23-300); Magnesium 1.3 mg/dL (1.6-2.3); Non-African American GFR(CKD) 78 (>60 ml/min/1.73 sqM); Potassium 3.6 mmol/L (3.5-5.1); Sodium 135 mmol/L (137-145); Total Bilirubin 0.4 mg/dL (0.2-1.3)
[2022-12-01] MEDS ORDERED: MAGNESIUM SULFATE-D5W PMX 1 GM in DEXTROSE/WATER 1 100ML.BAG IVPB ONE (00:49)
[2022-12-01 01:37] LABS: Appearance,Urine Clear (Clear); Bacteria,Urine Rare /hpf; Bilirubin,Urine Negative (Negative); Blood,Urine Negative (Negative); Color,Urine Light Yellow; Glucose,Urine (UA) Negative (Negative); Hyaline Casts,Urine 5 /lpf (0-2); Ketones,Urine Negative (Negative); Leukocyte Esterase,Urine Small (Negative); Nitrite,Urine Negative (Negative); PH, Urine 6.5 (5.0-8.0); Protein,Urine Negative (Negative); RBC,Urine 1 /hpf (0-5); Specific Gravity,Urine 1.011 (1.001-1.035); Squamous Epithelial Cell,Urine <1 /hpf (0-4); Urobilinogen,Urine <2.0 mg/dL (<2.0); WBC,Urine 1 /hpf (0-5)
--- NOTE | 2022-12-01 02:25 | CT ---
EXAM: CT Abdomen and Pelvis With Intravenous Contrast CLINICAL HISTORY: ITS.REASON CT Reason: generalized abd pain with nausea TECHNIQUE: Axial computed tomography images of the abdomen and pelvis with intravenous contrast. CTDI is 18 mGy and DLP is 770.8 mGy-cm. This CT exam was performed using one or more of the following dose reduction techniques: automated exposure control, adjustment of the mA and/or kV according to patient size, and/or use of iterative reconstruction technique. COMPARISON: No relevant prior studies available. FINDINGS: Lung bases: Bronchial wall thickening of the right lower lobe bronchi. ABDOMEN: Liver: Unremarkable. No mass. Gallbladder and bile ducts: Gallbladder has been removed. No ductal dilation. Pancreas: Unremarkable. No mass. No ductal dilation. Spleen: Unremarkable. No splenomegaly. Adrenals: Unremarkable. No mass. Kidneys and ureters: Simple right renal cyst measuring up to 2.0 cm. No further workup is required. No hydronephrosis. Stomach and bowel: Unremarkable. No obstruction. No mucosal thickening. PELVIS: Appendix: No findings to suggest acute appendicitis. Bladder: Unremarkable. No mass. Reproductive: Unremarkable as visualized. ABDOMEN and PELVIS: Intraperitoneal space: Unremarkable. No free air. No significant fluid collection. Bones/joints: No acute fracture. No dislocation. Soft tissues: Unremarkable. Vasculature: Unremarkable. No abdominal aortic aneurysm. Lymph nodes: Unremarkable. No enlarged lymph nodes. IMPRESSION: No acute abdominal or pelvic process. Bronchial wall thickening of the right lower lobe bronchi.
--- NOTE | 2022-12-01 02:26 | ED ---
General Adult HPI - General Chief complaint: Weakness Stated complaint: R53.1 Weakness Time Seen by Provider: 11/30/22 23:24 Source: patient, EMS, RN notes reviewed, old records reviewed Mode of arrival: EMS Limitations: no limitations - History of Present Illness Initial comments: Patient is an 82-year-old female presents emergency Department clinic weakness. She is also has some heart palpitations, as well as tremors for last 5 days. Has a history of A. fib and feels that she is going in and out of A. fib. Also has a history of COPD and lung cancer. Patient has a pacemaker. Presents for further evaluation at this time. States symptoms, and go. Denies any vazquez chest pain just the palpitations feeling with occasional pressure-like sensation but currently no symptoms. Feels well currently. States she normally is able to take care of herself at home but feels more weak as well. No fevers. No known sick contacts. No falls. No other acute complaints at this time. Patient presents for further evaluation at this time.Patient states she did recently fall but nothing in the last 24 hours. May have injured her right hip for 8 side which occasionally has pain. Also states she gets intermittent abdominal discomfort with no focal discomfort at this time. - Related Data Home Medications Medication Instructions Recorded Confirmed Pantoprazole Sodium [Protonix] 40 mg PO DAILY 09/23/16 05/13/22 Fluticasone/Umeclidin/Vilanter 1 puff INHALATION RT-DAILY 04/19/20 05/13/22 [Trelegy Ellipta 100-62.5-25] L.acidoph,Paracasei, B.lactis 1 cap PO DAILY 07/12/20 05/13/22 [Probiotic] Metoprolol Succinate (ER) [Toprol 25 mg PO BID 09/22/20 05/13/22 XL] busPIRone HCl [Buspar] 10 mg PO HS 09/22/20 05/13/22 Cholecalciferol [Vitamin D3 (25 25 mcg PO DAILY 08/06/21 05/13/22 Mcg = 1000 Iu)] Mirtazapine [Remeron] 7.5 mg PO HS 08/06/21 05/13/22 Vits A,C,E/Lutein/Minerals 1 tab PO BID 08/06/21 05/13/22 [Ocuvite with Lutein Tablet] amLODIPine BESYLATE [Norvasc] 2.5 mg PO DAILY 08/06/21 05/13/22 metFORMIN HCL ER [Glucophage XR] 500 mg PO DAILY 01/21/22 05/13/22 Atorvastatin Calcium [Lipitor] 40 mg PO BID 05/13/22 05/13/22 Benzonatate [Tessalon Perle] 200 mg PO TID PRN 05/13/22 05/13/22 DULoxetine HCL [Cymbalta] 30 mg PO BID 05/13/22 05/13/22 Ergocalciferol (Vitamin D2) 1,250 mcg PO WE 05/13/22 05/13/22 [Drisdol (50,000 Iu)] Previous Rx's Medication Instructions Recorded Apixaban [Eliquis] 2.5 mg PO BID tablet 10/02/16 Clopidogrel [Plavix] 75 mg PO DAILY #30 tab 08/10/20 traMADol HCl [Ultram] 50 mg PO Q6HR PRN 3 Days #12 tab 08/09/21 Ipratropium-Albuterol Nebulize 3 ml INHALATION QID PRN #90 ml 05/16/22 [Duoneb 0.5 mg-3 mg/3 ml Soln] predniSONE See Taper PO DIRECTED #18 tab 05/16/22 Allergies Allergy/AdvReac Type Severity Reaction Status Date / Time No Known Allergies Allergy Verified 12/01/22 06:44 Review of Systems ROS Statement: Those systems with pertinent positive or pertinent negative responses have been documented in the HPI. Review of Systems: CONST: Denies fever EYES: Denies blurry vision ENT: Denies nasal congestion C/V: Denies Chest pain RESP: Denies shortness of breath GI: Denies abdominal pain : Denies dysuria SKIN: Denies rash. MSK: Denies joint pain. NEURO: Denies headache ROS Other: All systems not noted in ROS Statement are negative. Past Medical History Past Medical History: Atrial Fibrillation, Cancer, Heart Failure, COPD, CVA/TIA, Diabetes Mellitus, Deep Vein Thrombosis (DVT), Fibromyalgia, GERD/Reflux, Hyperlipidemia, Hypertension, Osteoarthritis (OA), Pneumonia, Sleep Apnea/CPAP/BIPAP, Vascular Disorder Additional Past Medical History / Comment(s): back pain , lung cancer-radiation opnly, HOME 02 2 LITERS N/C, BLOOD CLOT AFTER SX, CVA LT SIDE AFFECTED SINCE RESOLVED, HIATAL HERNIA. SHINGLES 30 YEARS AGO, DOES'NT USE CPAP MACHINE.in past for short period of time took oral meds for dm-then taken off meds-pt stated not considered diabetic now but occ will check bs., macular degeneration.past broken rt leg and lt wrist. Raynauds. Pt currently has 3 fractured ribs on the right that she has "had for years and will not heal". History of Any Multi-Drug Resistant Organisms: MRSA Date of last positivie culture/infection: 09/25/16 MDRO Source:: BRONCH WASH Past Surgical History: Cholecystectomy, Heart Catheterization With Stent, Orthopedic Surgery Additional Past Surgical History / Comment(s): rt leg repaired after break-has pins, lt wrist-plate and screws. lung bx, stents tung groins. Past Anesthesia/Blood Transfusion Reactions: Family History of Problems w/ Anesthesia Additional Past Anesthesia/Blood Transfusion Reaction / Comment(s): daughter has diff waking after aa Date of Last Stent Placement:: unk Type of Cardiac Device: Permanent Pacemaker Device Placement Date:: 09/25/20 Past Psychological History: Anxiety, Depression Smoking Status: Former smoker - Past Family History Father Family Medical History: Congestive Heart Failure (CHF), COPD Additional Family Medical History / Comment(s): emphysema Mother Family Medical History: Cancer General Exam - General Exam Comments Initial Comments: General: Appears in no acute distress. HEAD: Normal with no signs of head trauma. EYES: PERRLA, EOMI, conjunctiva normal, no discharge. ENT: Hearing grossly intact, normal oropharynx. RESPIRATORY: Clear breath sounds bilaterally. No wheezes, rales, or rhonchi. On chronic nasal cannula oxygen saturating well. C/V: Regular rate and rhythm. S1 and S2 auscultated, no edema, peripheral pulses 2+ and intact throughout ABD: Abd is soft, nontender, nondistended EXT: Normal range of motion, no obvious deformity SKIN: No rashes or lesions observed on exposed skin. NEURO: Alert and oriented x 4. Cranial nerves II-XII intact. No focal sensory or strength deficits. 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 sent in by a medical professional or institution (, [facility], [employer], urgent care, hospital, or skilled nursing...) When possible be specific @ -No Did you speak to anyone other than the patient for history (EMS, parent, family, police, friend...)? What history was obtained from this source @ -No Did you review nursing and triage notes (agree or disagree)? Why? @ -I reviewed and agree with nursing and triage notes Were old charts reviewed (outside hosp., previous admission, EMS record, old EKG, old radiological studies, urgent care reports/EKG's, skilled nursing records)? Report findings @ -No old charts were reviewed Differential Diagnosis (chest pain, altered mental status, abdominal pain women, abdominal pain men, vaginal bleeding, weakness, fever, dyspnea, syncope, hea dache, dizziness, GI bleed, back pain, seizure, CVA, palpatations, mental health, musculoskeletal)? @ -Differential Weakness: Hypoglycemia, shock, sepsis, hyponatremia, anemia, infection, OR, ETOH, adverse medicine reaction, overdose, stroke, this is not meant to be an all-inclusive list. EKG interpreted by me (3pts min.). @ -As above X-rays interpreted by me (1pt min.). @ -Chest x-ray reveals a right mid lung pulmonary opacities seen on prior EKG from April 2022. CT interpreted by me (1pt min.). @ -CT abdomen and pelvis revealed no obvious acute intra-abdominal process. No obvious injury. U/S interpreted by me (1pt. min.). @ -None done What testing was considered but not performed or refused? (CT, X-rays, U/S, labs)? Why? @ -None What meds were considered but not given or refused? Why? @ -None Did you discuss the management of the patient with other professionals (professionals i.e. [facility] Bell, [employer], lab, RT, psych nurse, social welfare research worker, carving machine operator, teacher, budget officer, manager of case management)? Give summary @ -No Was smoking cessation discussed for >3mins.? @ -No Was critical care preformed (if so, how long)? @ -No Were there social determinants of health that impacted care today? How? (Homelessness, low income, unemployed, alcoholism, drug addiction, transportation, low edu. Level, literacy, decrease access to med. care, penitentiary, rehab)? @ -No Was there de-escalation of care discussed even if they declined (Discuss DNR or withdrawal of care, Hospice)? DNR status @ -No What co-morbidities impacted this encounter? (DM, HTN, Smoking, COPD, CAD, Cancer, CVA, ARF, Chemo, Hep., AIDS, mental health diagnosis, sleep apnea, morbid obesity)? @ -None Was patient admitted / discharged? Hospital course, mention meds given and route, prescriptions, significant lab abnormalities, going to OR and other pertinent info. @ -Based on the patient's presentation and physical exam, presents with multiple complaints, but primarily weakness. Also states she fell a week ago and has some right-sided discomfort, intermittent nonspecific abdominal pain, as well as heart palpitations. We will obtain Gen. cardiac and abdominal laboratory studies as well as chest x-ray, CT abdomen and pelvis. She was in agreement this plan. She'll be sent likely treatment with IV fluids, and reevaluated. Currently resting comfortably. Vital signs within acceptable limits of normal nasal cannula oxygen. EKG showed no signs of acute ischemia. Imaging is unremarkable showing chronic changes. Patient's labs are remarkable for hypomagnesemia of 1.3. Patient's lactic acid is slightly elevated to 2.1 is likely secondary to dehydration. Troponin is undetectable. BNP within except for limits. Remainder the workup is unremarkable. On reevaluation, I discussed the workup with the patient. She remained somewhat asymptomatic but still feels weak and she chest atrophy does not feel safe being discharged home at this time as she does live by herself. Due to the hypomagnesemia, as well as mild dehydration do believe it is reasonable to admit her for IV fluids as well as magnesium replacement and she was in agreement with this plan. I spoke with the admitting physician, Dr. Pearson who accepted the patient. Undiagnosed new problem with uncertain prognosis? @ -No Drug Therapy requiring intensive monitoring for toxicity (Heparin, Nitro, Insulin, Cardizem)? @ -No Were any procedures done? @ -No Diagnosis/symptom? @ -Weakness, hypomagnesemia, dehydration Acute, or Chronic, or Acute on Chronic? @ -Acute Uncomplicated (without systemic symptoms) or Complicated (systemic symptoms)? @ -Complicated Side effects of treatment? @ -No Exacerbation, Progression, or Severe Exacerbation? @ -No Poses a threat to life or bodily function? How? (Chest pain, USA, OR, pneumonia, PE, COPD, DKA, ARF, appy, cholecystitis, CVA, Diverticulitis, Homicidal, Suicidal, threat to staff... and all critical care pts) @ -No - Lab Data Result diagrams: 11/30/22 23:51 11/30/22 23:51 Lab Results 11/30/22 11/30/22 11/30/22 Range/Units 23:51 23:51 23:51 WBC 8.1 (3.8-10.6) k/uL RBC 3.87 (3.80-5.40) m/uL Hgb 11.2 L (11.4-16.0) gm/dL Hct 34.3 (34.0-46.0) % MCV 88.7 (80.0-100.0) fL MCH 29.0 (25.0-35.0) pg MCHC 32.7 (31.0-37.0) g/dL RDW 13.8 (11.5-15.5) % Plt Count 200 (150-450) k/uL MPV 8.1 Neutrophils % 62 % Lymphocytes % 28 % Monocytes % 5 % Eosinophils % 2 % Basophils % 0 % Neutrophils # 5.0 (1.3-7.7) k/uL Lymphocytes # 2.2 (1.0-4.8) k/uL Monocytes # 0.4 (0-1.0) k/uL Eosinophils # 0.2 (0-0.7) k/uL Basophils # 0.0 (0-0.2) k/uL PT 10.9 (9.0-12.0) sec INR 1.0 (<1.2) APTT 24.6 (22.0-30.0) sec Sodium 135 L (137-145) mmol/L Potassium 3.6 (3.5-5.1) mmol/L Chloride 100 (98-107) mmol/L Carbon Dioxide 27 (22-30) mmol/L Anion Gap 8 mmol/L BUN 16 (7-17) mg/dL Creatinine 0.72 (0.52-1.04) mg/dL Est GFR (CKD-EPI)AfAm >90 (>60 ml/min/1.73 sqM) Est GFR (CKD-EPI)NonAf 78 (>60 ml/min/1.73 sqM) Glucose 124 H (74-99) mg/dL Lactic Ac Sepsis Rflx Plasma Lactic Acid Imer (0.7-2.0) mmol/L Calcium 8.6 (8.4-10.2) mg/dL Magnesium 1.3 L (1.6-2.3) mg/dL Total Bilirubin 0.4 (0.2-1.3) mg/dL AST 30 (14-36) U/L ALT 21 (4-34) U/L Alkaline Phosphatase 62 (38-126) U/L Troponin I (0.000-0.034) ng/mL NT-Pro-B Natriuret Pep pg/mL Total Protein 6.0 L (6.3-8.2) g/dL Albumin 3.6 (3.5-5.0) g/dL Lipase 88 (23-300) U/L Urine Color Urine Appearance (Clear) Urine pH (5.0-8.0) Ur Specific [place] (1.001-1.035) Urine Protein (Negative) Urine Glucose (UA) (Negative) Urine Ketones (Negative) Urine Blood (Negative) Urine Nitrite (Negative) Urine Bilirubin (Negative) Urine Urobilinogen (<2.0) mg/dL Ur Leukocyte Esterase (Negative) Urine RBC (0-5) /hpf Urine WBC (0-5) /hpf Ur Squamous Epith Cells (0-4) /hpf Urine Bacteria (None) /hpf Hyaline Casts (0-2) /lpf Influenza Type A (PCR) (Not Detectd) Influenza Type B (PCR) (Not Detectd) RSV (PCR) (Not Detectd) SARS-CoV-2 (PCR) (Not Detectd) 11/30/22 11/30/22 11/30/22 Range/Units 23:51 23:51 23:51 WBC (3.8-10.6) k/uL RBC (3.80-5.40) m/uL Hgb (11.4-16.0) gm/dL Hct (34.0-46.0) % MCV (80.0-100.0) fL MCH (25.0-35.0) pg MCHC (31.0-37.0) g/dL RDW (11.5-15.5) % Plt Count (150-450) k/uL MPV Neutrophils % % Lymphocytes % % Monocytes % % Eosinophils % % Basophils % % Neutrophils # (1.3-7.7) k/uL Lymphocytes # (1.0-4.8) k/uL Monocytes # (0-1.0) k/uL Eosinophils # (0-0.7) k/uL Basophils # (0-0.2) k/uL PT (9.0-12.0) sec INR (<1.2) APTT (22.0-30.0) sec Sodium (137-145) mmol/L Potassium (3.5-5.1) mmol/L Chloride (98-107) mmol/L Carbon Dioxide (22-30) mmol/L Anion Gap mmol/L BUN (7-17) mg/dL Creatinine (0.52-1.04) mg/dL Est GFR (CKD-EPI)AfAm (>60 ml/min/1.73 sqM) Est GFR (CKD-EPI)NonAf (>60 ml/min/1.73 sqM) Glucose (74-99) mg/dL Lactic Ac Sepsis Rflx Plasma Lactic Acid Imer 2.1 H* (0.7-2.0) mmol/L Calcium (8.4-10.2) mg/dL Magnesium (1.6-2.3) mg/dL Total Bilirubin (0.2-1.3) mg/dL AST (14-36) U/L ALT (4-34) U/L Alkaline Phosphatase (38-126) U/L Troponin I <0.012 (0.000-0.034) ng/mL NT-Pro-B Natriuret Pep 525 pg/mL Total Protein (6.3-8.2) g/dL Albumin (3.5-5.0) g/dL Lipase (23-300) U/L Urine Color Urine Appearance (Clear) Urine pH (5.0-8.0) Ur Specific [place] (1.001-1.035) Urine Protein (Negative) Urine Glucose (UA) (Negative) Urine Ketones (Negative) Urine Blood (Negative) Urine Nitrite (Negative) Urine Bilirubin (Negative) Urine Urobilinogen (<2.0) mg/dL Ur Leukocyte Esterase (Negative) Urine RBC (0-5) /hpf Urine WBC (0-5) /hpf Ur Squamous Epith Cells (0-4) /hpf Urine Bacteria (None) /hpf Hyaline Casts (0-2) /lpf Influenza Type A (PCR) (Not Detectd) Influenza Type B (PCR) (Not Detectd) RSV (PCR) (Not Detectd) SARS-CoV-2 (PCR) (Not Detectd) 12/01/22 12/01/22 12/01/22 Range/Units 00:06 00:31 01:20 WBC (3.8-10.6) k/uL RBC (3.80-5.40) m/uL Hgb (11.4-16.0) gm/dL Hct (34.0-46.0) % MCV (80.0-100.0) fL MCH (25.0-35.0) pg MCHC (31.0-37.0) g/dL RDW (11.5-15.5) % Plt Count (150-450) k/uL MPV Neutrophils % % Lymphocytes % % Monocytes % % Eosinophils % % Basophils % % Neutrophils # (1.3-7.7) k/uL Lymphocytes # (1.0-4.8) k/uL Monocytes # (0-1.0) k/uL Eosinophils # (0-0.7) k/uL Basophils # (0-0.2) k/uL PT (9.0-12.0) sec INR (<1.2) APTT (22.0-30.0) sec Sodium (137-145) mmol/L Potassium (3.5-5.1) mmol/L Chloride (98-107) mmol/L Carbon Dioxide (22-30) mmol/L Anion Gap mmol/L BUN (7-17) mg/dL Creatinine (0.52-1.04) mg/dL Est GFR (CKD-EPI)AfAm (>60 ml/min/1.73 sqM) Est GFR (CKD-EPI)NonAf (>60 ml/min/1.73 sqM) Glucose (74-99) mg/dL Lactic Ac Sepsis Rflx Y Plasma Lactic Acid Imer (0.7-2.0) mmol/L Calcium (8.4-10.2) mg/dL Magnesium (1.6-2.3) mg/dL Total Bilirubin (0.2-1.3) mg/dL AST (14-36) U/L ALT (4-34) U/L Alkaline Phosphatase (38-126) U/L Troponin I (0.000-0.034) ng/mL NT-Pro-B Natriuret Pep pg/mL Total Protein (6.3-8.2) g/dL Albumin (3.5-5.0) g/dL Lipase (23-300) U/L Urine Color Light Yellow Urine Appearance Clear (Clear) Urine pH 6.5 (5.0-8.0) Ur Specific [place] 1.011 (1.001-1.035) Urine Protein Negative (Negative) Urine Glucose (UA) Negative (Negative) Urine Ketones Negative (Negative) Urine Blood Negative (Negative) Urine Nitrite Negative (Negative) Urine Bilirubin Negative (Negative) Urine Urobilinogen <2.0 (<2.0) mg/dL Ur Leukocyte Esterase Small H (Negative) Urine RBC 1 (0-5) /hpf Urine WBC 1 (0-5) /hpf Ur Squamous Epith Cells <1 (0-4) /hpf Urine Bacteria Rare H (None) /hpf Hyaline Casts 5 H (0-2) /lpf Influenza Type A (PCR) Not Detected (Not Detectd) Influenza Type B (PCR) Not Detected (Not Detectd) RSV (PCR) Not Detected (Not Detectd) SARS-CoV-2 (PCR) Not Detected (Not Detectd) - EKG Data -: EKG Interpreted by Me EKG Comments: 12-lead Electrocardiogram Interpretation Note EKG was reviewed and interpreted by myself. 12-lead ECG performed at 2349 is interpreted by me as revealing atrial paced rhythm at a rate of at 73 beats per minute. [place] is normal. [place] interval is 194 ms, QR latter day 70 ms, QTc is 09/01/1950 milliseconds.. There were no ST or T wave abnormalities to suggest myocardial ischemia or injury. R wave progression across the precordium was satisfactory. By my interpretation this EKG is non-diagnostic for acute ischemia. Disposition Clinical Impression: Weakness, Hypomagnesemia, Dehydration Disposition: ADMITTED IP TO THIS HOSP Condition: Stable Time of Disposition: 02:25
--- NOTE | 2022-12-01 02:26 | XR ---
EXAM: XR Chest, 2 Views CLINICAL HISTORY: ITS.REASON XR Reason: Weakness TECHNIQUE: Frontal and lateral views of the chest. COMPARISON: 05/14/2022 FINDINGS: Lungs: Right midlung pulmonary opacity. Pleural space: Unremarkable. No pneumothorax. No pleural effusions. Heart: Unremarkable. No cardiomegaly. Mediastinum: Unremarkable. Bones/joints: No acute osseous abnormalities. Tubes, lines and devices: Left subclavian dual lead transvenous pacemaker/defibrillator in position. IMPRESSION: Right midlung pulmonary opacity.
[2022-12-01] MEDS ORDERED: NALOXONE 0.4 MG/ML 1 ML VIAL IV PRN (02:39)
[2022-12-01] MEDS ORDERED: ALBUTEROL NEBULIZED 2.5 MG/3 ML INHALATION PRN (09:48)
[2022-12-01] MEDS ORDERED: BACLOFEN 10 MG TAB PO PRN (09:48)
[2022-12-01] MEDS ORDERED: ALPRAZolam 0.25 MG TAB PO PRN (09:48)
[2022-12-01] MEDS ORDERED: DEXTROSE 50% SYRINGE 50 ML IVP PRN ×2 (09:52)
[2022-12-01] MEDS ORDERED: NON FORMULARY DRUG (Fluticasone/Umeclidin/Vilanter [Trelegy Ellipta 100-62.5-25] 1 EACH Bl INHALATION SCH (11:00)
[2022-12-01] MEDS: amLODIPine 2.5 MG TAB PO SCH (11:03)
[2022-12-01 11:08] LABS: Glucose,Whole Blood 214 mg/dL (70-110)
[2022-12-01] MEDS: INSULIN ASPART (NovoLOG) 100 UNIT/ML VIAL SQ SCH ×3 (11:52→20:38)
[2022-12-01 12:19] LABS: African American GFR (CKD) 88 (>60 ml/min/1.73 sqM); Anion Gap 9 mmol/L; Blood Urea Nitrogen 15 mg/dL (7-17); Carbon Dioxide 28 mmol/L (22-30); Chloride 100 mmol/L (98-107); Glucose 148 mg/dL (74-99); Non-African American GFR(CKD) 77 (>60 ml/min/1.73 sqM); Potassium 3.7 mmol/L (3.5-5.1); Sodium 137 mmol/L (137-145)
[2022-12-01] MEDS: SYMBICORT 80-4.5 MCG INHALER INHALATION SCH ×2 (12:43→20:34)
[2022-12-01] MEDS: IPRATROPIUM 0.5 MG/2.5 ML NEBU INHALATION SCH ×3 (12:43→20:34)
[2022-12-01] MEDS ORDERED: PANTOPRAZOLE 40 MG TABLET PO STA (13:02)
--- NOTE | 2022-12-01 13:41 | P.HPIM ---
History of Present Illness H&P Date: 12/01/22 History of present illness; patient is a 82-year-old lady with past medical history significant for COPD, A. fib presented to the ER because of generalized weakness. Patient stated for the last few days she has been having complaint of increased weakness and palpitations. Patient also having some tremors. Patient stated during these episodes of palpitations she does complain of chest pressure, which is central in location, nonradiating. Denies any shortness of breath. no fever or chills. patient did have an episode of fall at home. because of generalized weakness, patient came to the er. Initial lab work in the ER showed WBC 8.1, hemoglobin 11.2, platelet count 200, sodium 135, potassium 3.6, BUN 16, creatinine 0.72, glucose 124, magnesium 1.3 UA was negative for any infection, CT abdominal and pelvis done showed no acute abdominal pelvic process Chest x-ray showed right midlung pulmonary opacity Patient was admitted to medicine service REVIEW OF SYSTEMS: CONSTITUTIONAL: No fever, complaining of generalized fatigue and malaise HEENT: No recent visual problems or hearing problems. Denied any sore throat. CARDIOVASCULAR: As mentioned in HPI PULMONARY: No shortness of breath, no cough, no hemoptysis. GASTROINTESTINAL: No diarrhea, no nausea, no vomiting, no abdominal pain. NEUROLOGICAL: No headaches, no weakness, no numbness. HEMATOLOGICAL: Denies any bleeding or petechiae. GENITOURINARY: Denies any burning micturition, frequency, or urgency. MUSCULOSKELETAL/RHEUMATOLOGICAL: Denies any joint pain, swelling, or any muscle pain. ENDOCRINE: Denies any polyuria or polydipsia. The rest of the 14-point review of systems is negative. PHYSICAL EXAMINATION: GENERAL: The patient is alert and oriented x3, not in any acute distress. Well developed, well nourished. HEENT: Pupils are round and equally reacting to light. EOMI. No scleral icterus. No conjunctival pallor. Normocephalic, atraumatic. No pharyngeal erythema. No thyromegaly. CARDIOVASCULAR: S1 and S2 present. No murmurs, rubs, or gallops. PULMONARY: Chest is clear to auscultation, no wheezing or crackles. ABDOMEN: Soft, nontender, nondistended, normoactive bowel sounds. No palpable organomegaly. MUSCULOSKELETAL: No joint swelling or deformity. EXTREMITIES: No cyanosis, clubbing, or pedal edema. NEUROLOGICAL: Gross neurological examination did not reveal any focal deficits. SKIN: No rashes. Assessment and plan Generalized weakness Chest pain Hypomagnesemia History of COPD History of atrial fibrillation Jbb-cnrowcg-zkvlekiul diabetes mellitus Hypertension Monitor vital signs Monitor CBC Monitor CMP Continue telemetry monitoring Trend troponins ordered d-dimer Resume home meds Consult cardiology Consult PT and OT Past Medical History Past Medical History: Atrial Fibrillation, Cancer, Heart Failure, COPD, CVA/TIA, Diabetes Mellitus, Deep Vein Thrombosis (DVT), Fibromyalgia, GERD/Reflux, Hyperlipidemia, Hypertension, Osteoarthritis (OA), Pneumonia, Sleep Apnea/CPAP/BIPAP, Vascular Disorder Additional Past Medical History / Comment(s): back pain , lung cancer-radiation opnly, HOME 02 2 LITERS N/C, BLOOD CLOT AFTER SX, CVA LT SIDE AFFECTED SINCE RESOLVED, HIATAL HERNIA. SHINGLES 30 YEARS AGO, DOES'NT USE CPAP MACHINE.in past for short period of time took oral meds for dm-then taken off meds-pt stated not considered diabetic now but occ will check bs., macular degeneration.past broken rt leg and lt wrist. Raynauds. Pt currently has 3 fractured ribs on the right that she has "had for years and will not heal". History of Any Multi-Drug Resistant Organisms: MRSA Date of last positivie culture/infection: 09/25/16 MDRO Source:: BRONCH WASH Past Surgical History: Cholecystectomy, Heart Catheterization With Stent, Orthopedic Surgery Additional Past Surgical History / Comment(s): rt leg repaired after break-has pins, lt wrist-plate and screws. lung bx, stents tung groins. Past Anesthesia/Blood Transfusion Reactions: Family History of Problems w/ Anesthesia Additional Past Anesthesia/Blood Transfusion Reaction / Comment(s): daughter has diff waking after aa Date of Last Stent Placement:: unk Type of Cardiac Device: Permanent Pacemaker Device Placement Date:: 09/25/20 Past Psychological History: Anxiety, Depression Smoking Status: Former smoker - Past Family History Father Family Medical History: Congestive Heart Failure (CHF), COPD Additional Family Medical History / Comment(s): emphysema Mother Family Medical History: Cancer Medications and Allergies Home Medications Medication Instructions Recorded Confirmed Type Apixaban [Eliquis] 2.5 mg PO BID tablet 10/02/16 12/01/22 Rx Fluticasone/Umeclidin/Vilanter 1 puff INHALATION RT-DAILY@1100 04/19/20 12/01/22 History [Brinda Schulteta 100-62.5-25] Clopidogrel [Plavix] 75 mg PO DAILY #30 tab 08/10/20 12/01/22 Rx Metoprolol Succinate (ER) [Toprol 25 mg PO BID 09/22/20 12/01/22 History XL] busPIRone HCl [Buspar] 10 mg PO BID 09/22/20 12/01/22 History Mirtazapine [Remeron] 7.5 mg PO HS 08/06/21 12/01/22 History amLODIPine BESYLATE [Norvasc] 2.5 mg PO DAILY 08/06/21 12/01/22 History metFORMIN HCL ER [Glucophage XR] 500 mg PO AC-SUPPER 01/21/22 12/01/22 History Atorvastatin Calcium [Lipitor] 80 mg PO HS 05/13/22 12/01/22 History DULoxetine HCL [Cymbalta] 30 mg PO BID 05/13/22 12/01/22 History Ergocalciferol (Vitamin D2) 1,250 mcg PO WE 05/13/22 12/01/22 History [Drisdol (50,000 Iu)] ALPRAZolam [Xanax] 0.25 mg PO DAILY PRN 12/01/22 12/01/22 History Albuterol Sulfate [Albuterol 1 - 2 puff PO RT-Q4H PRN 12/01/22 12/01/22 History Sulfate Hfa] Baclofen [Lioresal] 5 mg PO TID PRN 12/01/22 12/01/22 History Lidocaine 5% Patch [Lidoderm] 1 patch TOPICAL DAILY PRN 12/01/22 12/01/22 History Pantoprazole Sodium [Protonix] 20 mg PO DAILY 12/01/22 12/01/22 History Allergies Allergy/AdvReac Type Severity Reaction Status Date / Time No Known Allergies Allergy Verified 12/01/22 06:44 Physical Exam Vitals: Vital Signs Temp Pulse Pulse Pulse Resp BP BP 12/01/22 07:26 97.3 F L 70 20 155/75 12/01/22 06:00 65 16 175/69 12/01/22 02:00 77 16 139/55 11/30/22 23:01 78 11/30/22 22:53 97.9 F 75 16 147/64 Pulse Ox 12/01/22 07:26 100 12/01/22 06:00 100 12/01/22 02:00 99 11/30/22 23:01 11/30/22 22:53 99 Intake and Output 11/30/22 12/01/22 12/01/22 22:59 06:59 14:59 Other: Weight 54.431 kg Results CBC & Chem 7: 11/30/22 23:51 12/01/22 09:56 Labs: Abnormal Lab Results - Last 24 Hours (Table) 11/30/22 11/30/22 11/30/22 Range/Units 23:51 23:51 23:51 Hgb 11.2 L (11.4-16.0) gm/dL Sodium 135 L (137-145) mmol/L Glucose 124 H (74-99) mg/dL Plasma Lactic Acid Imer 2.1 H* (0.7-2.0) mmol/L Magnesium 1.3 L (1.6-2.3) mg/dL Total Protein 6.0 L (6.3-8.2) g/dL Ur Leukocyte Esterase (Negative) Urine Bacteria (None) /hpf Hyaline Casts (0-2) /lpf 12/01/22 Range/Units 01:20 Hgb (11.4-16.0) gm/dL Sodium (137-145) mmol/L Glucose (74-99) mg/dL Plasma Lactic Acid Imer (0.7-2.0) mmol/L Magnesium (1.6-2.3) mg/dL Total Protein (6.3-8.2) g/dL Ur Leukocyte Esterase Small H (Negative) Urine Bacteria Rare H (None) /hpf Hyaline Casts 5 H (0-2) /lpf
[2022-12-01 16:00] LABS: Glucose,Whole Blood 155 mg/dL (70-110)
[2022-12-01] MEDS: busPIRone HCl 10 MG TAB PO SCH (19:44)
[2022-12-01] MEDS: METOPROLOL SUCCINATE (ER) 25 MG TAB.ER.24H PO SCH (19:44)
[2022-12-01] MEDS: APIXABAN 2.5 MG TABLET PO SCH (19:45)
[2022-12-01] MEDS: DULoxetine HCL 30 MG CAPSULE.DR PO SCH (19:45)
[2022-12-01 20:32] LABS: Glucose,Whole Blood 166 mg/dL (70-110)
[2022-12-01] MEDS ORDERED: MIRTAZAPINE 15 MG TAB PO SCH (21:00)
[2022-12-01] MEDS ORDERED: ATORVASTATIN 80 MG TAB PO SCH (21:00)
--- NOTE | 2022-12-01 22:27 | CONS ---
CONSULTATION CHIEF COMPLAINT: Weakness, fatigue, and tremors. HISTORY OF PRESENT ILLNESS: This is an 82-year-old lady with history of paroxysmal atrial fibrillation, who presented to hospital with symptoms of not feeling well, fatigue, tiredness, and tremor. I have been consulted because of her history of atrial fibrillation. At the time of my evaluation, she appears comfortable at rest. Denies any chest pain, difficulty in breathing. The patient thinks that she has been feeling tremulous and has palpitations for the last 5 days. She has history of COPD and lung cancer and also has a permanent pacemaker. PAST MEDICAL HISTORY: Significant for hypertension, atrial fibrillation, CAD, dyslipidemia, non-insulin- dependent diabetes. CURRENT MEDICATIONS: Include, 1. Toprol-XL. 2. Xanax. 3. Glucophage. 4. Cymbalta. 5. BuSpar. 6. Norvasc. 7. Plavix. 8. Lipitor. 9. Eliquis. 10.Lidoderm. 11.Remeron. ALLERGIES: No known drug allergies. FAMILY HISTORY: Negative for premature coronary artery disease. SOCIAL HISTORY: Negative for current smoking, EtOH abuse, or drug abuse. REVIEW OF SYSTEMS: 14 out of 14 review of systems has been performed. Pertinent are as documented. PHYSICAL EXAMINATION: GENERAL: Comfortable at rest. VITAL SIGNS: Stable. NECK: There is no jugular venous distention. CHEST: Reveals good air entry bilaterally. HEART: Reveals first and second heart sounds. No gallop. Has a systolic murmur at the apex. ABDOMEN: Soft. EXTREMITIES: Did not reveal any edema. Peripheral pulses are felt. ASSESSMENT: Paroxysmal atrial fibrillation, hypertension, diabetes, dyslipidemia, and chronic obstructive pulmonary disease. PLAN: I will continue the patient on Eliquis and a beta-javier that she is on. Currently seems to be in paced rhythm. D-dimer is elevated, but my suspicion for a pulmonary embolism is very low as the patient is already on an anticoagulant. MMODL / IJN: [id number] /
[2022-12-02 05:56] LABS: Glucose,Whole Blood 149 mg/dL (70-110)
[2022-12-02] MEDS: INSULIN ASPART (NovoLOG) 100 UNIT/ML VIAL SQ SCH ×3 (05:56→17:55)
[2022-12-02] MEDS: IPRATROPIUM 0.5 MG/2.5 ML NEBU INHALATION SCH ×3 (08:53→16:13)
[2022-12-02] MEDS: SYMBICORT 80-4.5 MCG INHALER INHALATION SCH (08:53)
[2022-12-02] MEDS ORDERED: PANTOPRAZOLE 40 MG TABLET PO SCH (09:00)
[2022-12-02] MEDS ORDERED: CLOPIDOGREL 75 MG TAB PO SCH (09:00)
[2022-12-02] MEDS: busPIRone HCl 10 MG TAB PO SCH (10:12)
[2022-12-02] MEDS: APIXABAN 2.5 MG TABLET PO SCH (10:12)
[2022-12-02] MEDS: amLODIPine 2.5 MG TAB PO SCH (10:12)
[2022-12-02] MEDS: DULoxetine HCL 30 MG CAPSULE.DR PO SCH (10:12)
[2022-12-02] MEDS: METOPROLOL SUCCINATE (ER) 25 MG TAB.ER.24H PO SCH (10:12)
[2022-12-02 11:28] LABS: Glucose,Whole Blood 159 mg/dL (70-110)
[2022-12-02 11:29] LABS: Basophils # (A) 0.05 X 10*3/uL (0.00-0.10); Basophils % (A) 0.7 %; Eosinophils # (A) 0.29 X 10*3/uL (0.04-0.35); HCT 38.1 % (37.2-46.3); Lymphocytes # (A) 2.09 X 10*3/uL (0.90-5.00); Lymphocytes % (A) 28.6 %; MCH 28.9 pg (27.0-32.0); MCHC 31.5 d/dL (32.0-37.0); MCV 91.8 FL (80.0-97.0); Mean Platelet Volume 11.1 FL (9.5-12.2); Monocytes # (A) 0.71 X 10*3/uL (0.20-1.00); Monocytes % (A) 9.7 %; NRBC Per 100 WBC 0 X 10*3/uL (0.00-0.01); Neutrophils # (A) 4.13 X 10*3/uL (1.80-7.70); Neutrophils % (A) 56.6 %; Platelet Count 187 X 10*3/uL (140-440); RBC 4.15 X 10*6/uL (4.10-5.20); RDW 13.9 % (11.5-14.5)
[2022-12-02 11:52] LABS: BUN/Creat Ratio 16.86 Ratio (12.00-20.00); Blood Urea Nitrogen 11.8 mg/dL (9.0-27.0); Calcium 9.5 mg/dL (8.7-10.3); Carbon Dioxide 26.4 mmol/L (21.6-31.8); Chloride 103 mmol/L (96-109); Glucose 149 mg/dL (70-110); Potassium 4.4 mmol/L (3.5-5.5); Sodium 140 mmol/L (135-145)
--- NOTE | 2022-12-02 12:21 | PN ---
PROGRESS NOTE SUBJECTIVE: An 82-year-old lady with history of paroxysmal atrial fibrillation, admitted to hospital with fatigue, tiredness and tremor and we were consulted for atrial fibrillation. The patient is doing well. Did not have any episodes of tachycardia. Her tremors have improved. She is waiting for a CT scan of the chest. We ordered an echocardiogram on her, which has never been done. OBJECTIVE: GENERAL: On exam, comfortable at rest. VITAL SIGNS: Blood pressure is elevated. NECK: There is no jugular venous distention. CHEST: Reveals good air entry bilaterally. HEART: Reveals first and second heart sounds. No gallop. ABDOMEN: Soft. EXTREMITIES: Exam of extremities did not reveal any edema. Peripheral pulses are felt. ASSESSMENT: 1. Paroxysmal atrial fibrillation. 2. Uncontrolled hypertension. PLAN: Increase the dose of amlodipine for better blood pressure control. MMODL / IJN: [id number] /
--- NOTE | 2022-12-02 13:13 | CT ---
EXAMINATION TYPE: CT chest angio for PE DATE OF EXAM: 12/02/2022 COMPARISON: 05/14/2022 HISTORY: Dyspnea CT DLP: 205.7 mGycm Automated exposure control for dose reduction was used. CONTRAST: CT Chest for pulmonary embolism performed with with IV Contrast, patient injected with 100 mL of Isov ue 370. FINDINGS: LUNGS: Moderate centrilobular emphysema changes are seen throughout the lungs. Similar appearance to the right lower lobe streaky atelectasis/scarring. Similar posterior atelectasis and scarring in the left lower lung. Calcified granuloma in the left lower lobe is unchanged. Previously mentioned right upper lobe nodula r densities are not significantly changed. A left upper lobe 5 x 2 mm pulmonary nodule is stable. Interlobular septal thickening is seen and there is mild central\basilar bronchiectasis. Bronchial wa ll thickening likely in the basis of chronic bronchitis. There is an area of subsegmental consolidation in the right upper lobe extending toward the right hil um may be on the basis of atelectasis or scarring. Neoplastic process is not excluded but felt less l ikely. There is a new spiculated nodule left lung apex measuring 1 cm. MEDIASTINUM: There are no greater than 1 cm hilar or mediastinal lymph nodes. No pericardial effusion is seen. Cardiac leads again noted. Atherosclerotic change of the aorta which appears to be of sanket l caliber. Coronary artery calcifications noted. OTHER: Small hiatal hernia. Benign-appearing renal cysts noted. Postcholecystectomy changes are noted . Scoliosis with hypertrophic and degenerative changes of the spine. Chronic sclerotic change involvi ng the right rib cage stable could be on the basis of prior surgery or post therapeutic change. Metas tases are not excluded but felt less likely. There is a 2.5 cm soft tissue nodule the level of T12 paramedian to the left. This is seen dating neto k to 2019 but is slightly increased in size. Simple appearing left renal cyst measuring 1.2 cm and 6 Hounsfield units. IMPRESSION: 1. No CT evidence of pulmonary embolism. 2. There is a new spiculated nodule in the left upper lobe lung apex suspicious for malignancy. Recom mend PET scan. 3. is a soft tissue nodule measuring 2.5 cm and the posterior subcutaneous tissues of the back at the level of T12 paramedian to the left. This did not demonstrate abnormal uptake by prior PET scan of . 4. Diffuse emphysematous changes with persistent consolidation involving the superior segment right l ower lobe extending to the hilum most likely on the basis of post therapeutic scarring or atelectasis .
--- NOTE | 2022-12-02 14:16 | P.DS ---
Providers Date of admission: 12/01/22 02:39 Expected date of discharge: 12/02/22 Attending physician: Jagjit Pearson MD Consults: 12/01/22 09:46 Consult Physician Routine Consulting Provider: Amos Neely Consult Reason/Comments: Palpitations, chest pain Do you want consulting provider notified?: Yes Primary care physician: [facility] Course: Discharge diagnoses; Generalized weakness Chest pain Hypomagnesemia History of COPD History of atrial fibrillation Yys-sxsllbs-hyjtynyee diabetes mellitus Hypertension Hospital course; patient is a 82-year-old lady with past medical history significant for COPD, A. fib presented to the ER because of generalized weakness. Patient stated for the last few days she has been having complaint of increased weakness and palpitations. Patient also having some tremors. Patient stated during these episodes of palpitations she does complain of chest pressure, which is central in location, nonradiating. Denies any shortness of breath. no fever or chills. patient did have an episode of fall at home. because of generalized weakness, patient came to the er. Initial lab work in the ER showed WBC 8.1, hemoglobin 11.2, platelet count 200, sodium 135, potassium 3.6, BUN 16, creatinine 0.72, glucose 124, magnesium 1.3 UA was negative for any infection, CT abdominal and pelvis done showed no acute abdominal pelvic process Chest x-ray showed right midlung pulmonary opacity Patient was admitted to medicine service 12/02. Cardiology were consulted, they evaluated the patient, recommended no ischemic workup, recommend increasing dose of Norvasc to [address] chest was done showed no CT evidence of PE, did show a new lung nodule in the left upper lobe, recommended PET scan. Patient was updated about the CT scans findings. PHYSICAL EXAMINATION: GENERAL: The patient is alert and oriented x3, not in any acute distress. Well developed, well nourished. HEENT: Pupils are round and equally reacting to light. EOMI. No scleral icterus. No conjunctival pallor. Normocephalic, atraumatic. No pharyngeal erythema. No thyromegaly. CARDIOVASCULAR: S1 and S2 present. No murmurs, rubs, or gallops. PULMONARY: Chest is clear to auscultation, no wheezing or crackles. ABDOMEN: Soft, nontender, nondistended, normoactive bowel sounds. No palpable organomegaly. MUSCULOSKELETAL: No joint swelling or deformity. EXTREMITIES: No cyanosis, clubbing, or pedal edema. NEUROLOGICAL: Gross neurological examination did not reveal any focal deficits. SKIN: No rashes. Patient Condition at Discharge: Stable Plan - Discharge Summary Discharge Rx Participant: No New Discharge Prescriptions: Continue Apixaban [Eliquis] 2.5 mg PO BID tablet Fluticasone/Umeclidin/Vilanter [Trelegy Ellipta 100-62.5-25] 1 puff INHALATION RT-DAILY@1100 Clopidogrel [Plavix] 75 mg PO DAILY #30 tab Metoprolol Succinate (ER) [Toprol XL] 25 mg PO BID busPIRone HCl [Buspar] 10 mg PO BID amLODIPine BESYLATE [Norvasc] 2.5 mg PO DAILY metFORMIN HCL ER [Glucophage XR] 500 mg PO AC-SUPPER DULoxetine HCL [Cymbalta] 30 mg PO BID Albuterol Sulfate [Albuterol Sulfate Hfa] 1 - 2 puff PO RT-Q4H PRN PRN Reason: Shortness Of Breath ALPRAZolam [Xanax] 0.25 mg PO DAILY PRN PRN Reason: Anxiety Baclofen [Lioresal] 5 mg PO TID PRN PRN Reason: Muscle Spasm Lidocaine 5% Patch [Lidoderm 5% Patch] 1 patch TOPICAL DAILY PRN PRN Reason: Pain Mirtazapine [Remeron] 7.5 mg PO HS Atorvastatin Calcium [Lipitor] 80 mg PO HS Ergocalciferol (Vitamin D2) [Drisdol (50,000 Iu)] 1,250 mcg PO WE Pantoprazole Sodium [Protonix] 20 mg PO DAILY Discharge Medication List Apixaban [Eliquis] 2.5 mg PO BID tablet 10/02/16 [Rx] Fluticasone/Umeclidin/Vilanter [Trelegy Ellipta 100-62.5-25] 1 puff INHALATION RT-DAILY@1100 04/19/20 [History] Clopidogrel [Plavix] 75 mg PO DAILY #30 tab 08/10/20 [Rx] Metoprolol Succinate (ER) [Toprol XL] 25 mg PO BID 09/22/20 [History] busPIRone HCl [Buspar] 10 mg PO BID 09/22/20 [History] Mirtazapine [Remeron] 7.5 mg PO HS 08/06/21 [History] amLODIPine BESYLATE [Norvasc] 2.5 mg PO DAILY 08/06/21 [History] metFORMIN HCL ER [Glucophage XR] 500 mg PO AC-SUPPER 01/21/22 [History] Atorvastatin Calcium [Lipitor] 80 mg PO HS 05/13/22 [History] DULoxetine HCL [Cymbalta] 30 mg PO BID 05/13/22 [History] Ergocalciferol (Vitamin D2) [Drisdol (50,000 Iu)] 1,250 mcg PO WE 05/13/22 [History] ALPRAZolam [Xanax] 0.25 mg PO DAILY PRN 12/01/22 [History] Albuterol Sulfate [Albuterol Sulfate Hfa] 1 - 2 puff PO RT-Q4H PRN 12/01/22 [History] Baclofen [Lioresal] 5 mg PO TID PRN 12/01/22 [History] Lidocaine 5% Patch [Lidoderm 5% Patch] 1 patch TOPICAL DAILY PRN 12/01/22 [History] Pantoprazole Sodium [Protonix] 20 mg PO DAILY 12/01/22 [History] Follow up Appointment(s)/Referral(s): Nohemi Estrada MD [Primary Care Provider] - 1-2 days [facility] [NON-STAFF] - 1-2 Days Activity/Diet/Wound Care/Special Instructions: Left upper lobe nodule, needs outpatient PET scan, please call PCP to schedule 1 Discharge Disposition: HOME SELF-CARE
[2022-12-02 15:06] VITALS: BP 192/78; RESP 18; TEMP 98
[2022-12-02] MEDS ORDERED: amLODIPine 2.5 MG TAB PO STA (15:18)
[2022-12-02 16:25] VITALS: PULSE 70
[2022-12-02 16:50] LABS: Glucose,Whole Blood 159 mg/dL (70-110)
--- NOTE | 2022-12-02 17:27 | CA ---
Transthoracic Echo Report Name: Jenni Hercules Age: 82 Gender: F : 1940 Exam Date: 12/02/2022 14:22 Exam Location: [place] [facility] Ht (in): 64 Wt (lb): 120 Ordering Physician: Amos Neely MD ([id number]) Attending/Referring Phys: Chin CROCKETT Grinder Set Up Operator Thread Sherly Li [facility] Procedure CPT: Indications: palpatations chest pain Cardiac Hx: Technical Quality: Technically difficult study Contrast 1: Total Dose (mL): Contrast 2: Total Dose (mL): MEASUREMENTS (Male / Female) Normal Values 2D ECHO LV Diastolic Diameter PLAX 3.4 cm 4.2 - 5.9 / 3.9 - 5.3 cm LV Systolic Diameter PLAX 2.1 cm IVS Diastolic Thickness 0.8 cm 0.6 - 1.0 / 0.6 - 0.9 cm LVPW Diastolic Thickness 0.8 cm 0.6 - 1.0 / 0.6 - 0.9 cm LV Relative Wall Thickness 0.5 LVOT Diameter 2.0 cm M-MODE Aortic Root Diameter MM 2.4 cm LA Systolic Diameter MM 2.5 cm LA Ao Ratio MM 1.0 AV Cusp Separation MM 1.8 cm DOPPLER AV Peak Velocity 101.7 cm/s AV Peak Gradient 4.1 mmHg AV Mean Velocity 71.6 cm/s AV Mean Gradient 2.2 mmHg AV Velocity Time Integral 21.8 cm LVOT Peak Velocity 79.4 cm/s LVOT Peak Gradient 2.5 mmHg LVOT Velocity Time Integral 15.7 cm LVOT Stroke Volume 47.0 cm??? LVOT Stroke Volume Index 29.8 ml/m??? LVOT Cardiac Index 2128.0 cm???/min???m??? AV Area Cont Eq vti 2.2 cm??? AV Area Cont Eq pk 2.3 cm??? Mitral E Point Velocity 50.0 cm/s Mitral A Point Velocity 106.7 cm/s Mitral E to A Ratio 0.5 MV Deceleration Time 315.3 ms LV E' Lateral Velocity 3.9 cm/s Mitral E to LV E' Lateral Ratio 12.8 LV E' Septal Velocity 3.3 cm/s Mitral E to LV E' Septal Ratio 15.3 TR Peak Velocity 239.9 cm/s TR Peak Gradient 23.0 mmHg Right Atrial Pressure 8.0 mmHg Pulmonary Artery Systolic Pressu 31.0 mmHg Right Ventricular Systolic Press 31.0 mmHg FINDINGS Left Ventricle Normal Left ventricular size, wall thickness, systolic function with no obvious regional wall motion abnormalities. Left ventricular ejection fraction is estimated at 60-65%. Right Ventricle Mild right ventricular dilatation. Catheter/pacemaker wire in the right ventricular cavity. Right Atrium Mild right atrial dilatation. Left Atrium Normal left atrial size. Mitral Valve Structurally normal mitral valve. Mild mitral regurgitation. Aortic Valve Aortic valve not well visualized. Mild aortic regurgitation. Tricuspid Valve Structurally normal tricuspid valve. Mild tricuspid regurgitation. Pulmonic Valve Pulmonic valve not well visualized. Pericardium Prominent epicardial fat. Aorta Normal size aortic root. CONCLUSIONS Normal LV systolic function Mild mitral and aortic regurgitation Previewed by: Dr. Amos Neely MD (Electronically Signed) Final Date: 02 December 2022 17:26
[2022-12-03] MEDS ORDERED: amLODIPine 5 MG TAB PO SCH (09:00)
[2022-12-03] MEDS ORDERED: ERGOCALCIFEROL 1,250 MCG (50,000 IU) CAPSULE PO SCH (09:00)
== END 2022-12-02 18:49 | disposition home or self-care (01) ==
LOC: EC 22:51 → 4SSUR 12-01 02:39
PROVIDERS: ADMIT Internal Medicine; ATTEND Internal Medicine
DX: R53.1 Weakness (principal); E83.42 Hypomagnesemia; I48.0 Paroxysmal atrial fibrillation; I11.0 Hypertensive heart disease with heart failure; I50.9 Heart failure, unspecified; R07.89 Other chest pain; E86.0 Dehydration; R79.89 Other specified abnormal findings of blood chemistry; R00.2 Palpitations; R25.1 Tremor, unspecified; J44.9 Chronic obstructive pulmonary disease, unspecified; E78.5 Hyperlipidemia, unspecified; M79.7 Fibromyalgia; K21.9 Gastro-esophageal reflux disease without esophagitis; M19.90 Unspecified osteoarthritis, unspecified site; G47.30 Sleep apnea, unspecified; K44.9 Diaphragmatic hernia without obstruction or gangrene; H35.30 Unspecified macular degeneration; I73.00 Raynaud's syndrome without gangrene; F32.A Depression, unspecified; F41.9 Anxiety disorder, unspecified; Z20.822 Contact with and (suspected) exposure to COVID-19; Z79.51 Long term (current) use of inhaled steroids; Z79.84 Long term (current) use of oral hypoglycemic drugs; Z79.01 Long term (current) use of anticoagulants; Z79.02 Long term (current) use of antithrombotics/antiplatelets; Z79.899 Other long term (current) drug therapy; Z99.81 Dependence on supplemental oxygen; Z91.81 History of falling; Z85.118 Personal history of other malignant neoplasm of bronchus and lung; Z95.0 Presence of cardiac pacemaker; Z86.73 Personal history of transient ischemic attack (TIA), and cerebral infarction without residual deficits; Z86.718 Personal history of other venous thrombosis and embolism; Z87.01 Personal history of pneumonia (recurrent); Z92.3 Personal history of irradiation; Z86.14 Personal history of Methicillin resistant Staphylococcus aureus infection; Z90.49 Acquired absence of other specified parts of digestive tract; Z95.5 Presence of coronary angioplasty implant and graft; Z87.891 Personal history of nicotine dependence; Z86.19 Personal history of other infectious and parasitic diseases; Z95.828 Presence of other vascular implants and grafts; Z98.890 Other specified postprocedural states; Z82.5 Family history of asthma and other chronic lower respiratory diseases; Z82.49 Family history of ischemic heart disease and other diseases of the circulatory system; Z80.9 Family history of malignant neoplasm, unspecified; Z84.89 Family history of other specified conditions; W19.XXXA Unspecified fall, initial encounter; Y92.009 Unspecified place in unspecified non-institutional (private) residence as the place of occurrence of the external cause
CPT/HCPCS: 96361 ×2; 96365; 99285; 36415; 94640 ×4; 94760; 93005; 93306; 97116; 97162; 97535; 97166; 85379; 83880; 80053; 80048 ×2; 83605 ×2; 83690; 83735; 84484 ×2; 85025 ×2; 85610; 85730; 81001; 83036; 84145; 87636; 71046; 71275; 74177; G0378 ×2; J3475; Q9967 ×2

== ENCOUNTER → 2022-12-17 | Outpatient (CLI) | payer MEDICARE, OTHER ==
[2022-12-17 11:10] LABS: African American GFR (CKD) >90 (>60 ml/min/1.73 sqM); Blood Urea Nitrogen 14 mg/dL (7-17); Non-African American GFR(CKD) 83 (>60 ml/min/1.73 sqM)
--- NOTE | 2022-12-17 11:33 | US ---
EXAMINATION TYPE: US carotid duplex BILAT DATE OF EXAM: 12/17/2022 COMPARISON: NONE CLINICAL INDICATION: Female, 82 years old with history of R47.81 SLURRED SPEECH; hx of TIA TECHNIQUE: Carotid duplex ultrasound examination. Indirect Doppler criteria was utilized. FINDINGS: EXAM MEASUREMENTS: RIGHT: Peak Systolic Velocity (PSV) cm/sec ----- Right CCA: 57.5 ----- Right ICA: 59.0 ----- Right ECA: 70.2 ICA/CCA ratio: 1.0 RIGHT: End Diastole cm/sec ----- Right CCA: 21.7 ----- Right ICA: 14.9 ----- Right ECA: 0.0 LEFT: Peak Systolic Velocity (PSV) cm/sec ----- Left CCA: 58.1 ----- Left ICA: 171.7 ----- Left ECA: 118.3 ICA/CCA ratio: 3.0 LEFT: End Diastole cm/sec ----- Left CCA: 23.0 ----- Left ICA: 41.6 ----- Left ECA: 0.0 VERTEBRALS (direction of flow): Right Vertebral: Antegrade Left Vertebral: Antegrade Rhythm: Arrhythmia seen image 20 SMALL EQUIPMENT OPERATOR NOTES: mild atherosclerosis seen bilaterally, stenosis area noted in lt bulb and lt ICA IMPRESSION: 1. 50-69% stenosis of the left carotid bifurcation. 2. Less than 50% stenosis of the right carotid bifurcation Criteria for Assigning % of Stenosis / Diameter reduction (Estimation based on the indirect measurements of the internal carotid artery velocities (ICA PSV). 1. Normal (no stenosis)=ICA PSV < 125 cm/s: ratio < 2.0: ICA EDV<40 cm/s. 2. Less than 50% stenosis=ICA PSV < 125 cm/s: ratio < 2.0: ICA EDV<40 cm/s. 3. 50 to 69% stenosis=ICA PSV of 125 to 230 cm/s: ration 2.0 ? 4.0: ICA EDV 40-100 cm/s. 4. Greater than 70% stenosis to near occlusion= ICA PSV > 230 cm/s: ratio > 4.0: ICA EDV > 100 cm/s. 5. Near occlusion= ICA PSV velocities may be low or undetectable: variable ratio and ICA EDV. 6. Total occlusion=unable to detect flow.
--- NOTE | 2022-12-17 19:52 | CT ---
EXAMINATION TYPE: CT brain wo/w con DATE OF EXAM: 12/17/2022 COMPARISON: None HISTORY: 82-year-old female Slurred speech and vision changes. TECHNIQUE: Examination was done in axial plane without intravenous contrast. Subsequently scanning after administration of 100 mL Isovue-370 contrast. Coronal and sagittal reconstructions performed. CT DLP: 2063.7 mGycm Automated exposure control for dose reduction was used. FINDINGS: There is mild to moderate cerebral cerebral volume loss. Moderate to severe patchy and confluent whit e matter hypodensities in posterior hemispheres. Dominant left vertebral artery. True venous sinuses are patent. No enhancing intracranial lesions are identified. There is no evidence of acute intracranial hemorrhage, acute ischemic changes, mass, mass-effect, or extra-axial fluid collection. There is no effacement of cerebral sulci or basal subarachnoid cister ns. There is no hydrocephalus. There is no midline shift. Diaz-white matter distinction is preserv ed. Rightward nasal septal deviation. Otherwise, paranasal sinuses and mastoid air cells are well pneumat ized. Orbits and globes are intact. Incidental left-sided conchal bullosa containing air-fluid level. IMPRESSION: 1. Mild to moderate cerebral atrophy and moderate to severe burden of chronic small vessel ischemic d isease. 2. No acute intracranial abnormality seen. 3. No enhancing intracranial. 4. Incidental left-sided conchal bullosa containing air-fluid level. Correlate to exclude any underly ing nasal infection.
== END | disposition home or self-care (01) ==
LOC: RADUSWWP 09:58
PROVIDERS: ATTEND Family Medicine
DX: I65.23 Occlusion and stenosis of bilateral carotid arteries (principal); R47.81 Slurred speech
CPT/HCPCS: 82565; 84520; 93880; 70470; 36415; Q9967

== ENCOUNTER → 2022-12-27 | Outpatient (CLI) | payer MEDICARE, OTHER ==
--- NOTE | 2022-12-29 08:10 | PE ---
EXAMINATION TYPE: PET CT fusion skull to thigh DATE OF EXAM: 12/27/2022 COMPARISON: 12/02/2022 CT chest Prior PET/CT: None HISTORY: Solitary pulmonary nodule TECHNIQUE: Following the intravenous administration of 9.8 mCi of F-18 FDG, whole body images are pe rformed from the skull base to the midthigh. Images are reviewed on the computer in the coronal, axi al, and sagittal planes. Reconstructed rotating images are created on independent workstation and re viewed on the computer. A localization and attenuation correction CT is performed in conjunction wi th the PET scan. DLP: 301.70 mGycm SCAN: Initial Blood glucose: 114 mg/dL Average Mediastinum SUV: 1.52 Average Liver SUV: 2.23 FINDINGS: NECK: No abnormal uptake THORAX: There is a focus of radiotracer within the anterior right mid lung with an SUV value 1.80. Th is is slightly elevated and neoplasm should be considered. This potentially could be infectious etiol ogy although the small size in relation to the intensity appears more suggestive for neoplasm. There is mild uptake within the posterior right midlung density measuring 0.68. This is more likely b enign. Example image 98. Low uptake is within a nodule within the posterior left apex. Image 62, SUV 0.42 No enlarged mediastinal or hilar adenopathy is evident. ABDOMEN: No abnormal uptake PELVIS: No abnormal uptake OSSEOUS STRUCTURES: No abnormal uptake LOCALIZATION CT: No suspicious acute changes COMPARISON: Lung findings appear stable from 12/02/2022. IMPRESSION: 1. Mildly increased uptake in relation to background within the nodule anterior right midlung. Neopla sm is favored although an inflammatory changes remain within the differential based on the current ex am. 2. Uptake within additional lung nodules densities appears lower more suggestive for benign etiologie s. These however should be monitored. 3. No distant metastatic changes within the abdomen and pelvis or neck.
== END | disposition home or self-care (01) ==
LOC: RADPETMAIN 11:14
PROVIDERS: ATTEND Family Medicine
DX: J98.4 Other disorders of lung (principal); R91.8 Other nonspecific abnormal finding of lung field
CPT/HCPCS: 78815; A9552

== ENCOUNTER → 2023-04-03 | Outpatient (CLI) | payer MEDICARE, OTHER ==
[2023-04-03 14:28] LABS: African American GFR (CKD) 58 (>60 ml/min/1.73 sqM); Blood Urea Nitrogen 25 mg/dL (7-17); Non-African American GFR(CKD) 50 (>60 ml/min/1.73 sqM)
--- NOTE | 2023-04-03 15:45 | CT ---
EXAMINATION TYPE: CT chest w con DATE OF EXAM: 04/03/2023 COMPARISON: 05/14/2022 HISTORY: 82-year-old female R9 1.1, Pulmonary nodules TECHNIQUE: Contiguous axial scanning of the chest after the administration of 80 cc mL of Isovue 300. Coronal/sagittal reconstructions performed. CT DLP: 235.7mGycm. Automatic exposure control utilized for a dose reduction. FINDINGS: Left anterior chest wall pacemaker generator with right atrial and right ventricular pacer leads. Heart is normal size without pericardial effusion. LAD and circumflex coronary artery calcifications are present. Aorta normal caliber with mild atherosclerotic calcifications throughout. Conventional arch vessel br anching anatomy. No thoracic lymphadenopathy by CT size criteria. Some type of high density nodularity measuring 2.4 x 0.8 cm along the left paramedian back near the t horacolumbar junction. This was present on 05/14/2022 suggesting a benign etiology. Possible sequela of prior injury or inflammation. Lungs show moderate to advanced emphysematous change. * Redemonstrated is irregular patchy opacity posterior right lower lobe extending to the pleural albert face, probable pleural-parenchymal scarring. However, the most superior and medial margin of the opac ity now shows new 8 mm nodularity. Progressive scarring is possible. Axial image 36. This should be r eassessed at follow-up. * 7 mm irregular nodularity anterior right midlung axial image 35 is similar size but shows increasi ng soft tissue fullness and should be reassessed on follow-up. * There is a new 4 mm left upper lobe pulmonary nodule, axial image 14 for which short interval foll ow-up is advised. * 7 mm lateral left midlung pulmonary nodule axial image 32 previously measured 5 mm and should be r eassessed at follow-up. * Unchanged calcified granuloma medial left lower lobe. Visualized upper abdomen shows left-sided renal cysts measuring up to 2.6 cm and cholecystectomy clip s. Moderate atherosclerotic calcifications visualized abdominal aorta. Tiny anterior splenule. Bones: Diffuse osteopenia. Moderate to severe degenerative disc disease lower thoracic spine. Mild el sewhere throughout the thoracic spine. IMPRESSION: 1. COPD with moderately advanced emphysema. 2. There appears to be pleural parenchymal scarring at the posterior right base. However, there is so me new/increasing associated 8 mm nodularity here. Three-month follow-up CT chest to reassess. 3. Additional few areas of nodularity measuring up to 7 mm also show either increasing fullness or si ze compared back to 05/14/2022 and should be reassessed at a 3 month follow-up. 4. A 4 mm left upper lobe pulmonary nodule is new from 05/14/2022. 3 month follow-up to reassess.
== END | disposition home or self-care (01) ==
LOC: RADCTMAIN 12:13
PROVIDERS: ATTEND Family Medicine
DX: J43.9 Emphysema, unspecified (principal); J98.4 Other disorders of lung; R91.8 Other nonspecific abnormal finding of lung field
CPT/HCPCS: 82565; 84520; 71260; 36415; Q9967

== ENCOUNTER 2023-06-27 17:29 | Inpatient (IN) | payer MEDICARE, OTHER ==
--- NOTE | 2023-06-27 17:42 | ED ---
General Adult HPI - General Chief complaint: Neuro Symptoms/Deficit Stated complaint: Poss stroke Time Seen by Provider: 06/27/23 17:38 Source: patient, family Mode of arrival: ambulatory Limitations: no limitations - History of Present Illness Initial comments: Patient presents to the ED with her daughter for evaluation. Per daughter, they were celebrating the patient's birthday today when she suddenly began to have trouble "finding her words". Daughter states that these symptoms began at about 5 PM today (about 45 minutes ago), and they have now improved. Daughter states that the patient has a history of TIAs. Patient admits that her expressive aphasia has now improved. Patient also states that she has been having intermittent headaches since her symptoms began, but she denies having a headache currently. Patient is on Eliquis anticoagulation therapy for atrial fibrillation, and she states that she did take her Eliquis today. Patient denies sudden onset of severe headache or head trauma/injury. Patient denies fever or chills, neck pain or stiffness, visual changes, focal numbness or weakness, chest pain, dyspnea, cough or cold symptoms, palpitations, dizziness, abdominal pain, nausea or vomiting, diarrhea, dysuria or urinary symptoms, or any other symptoms or complaints. Code stroke was activated on patient's arrival to the ED. patient's blood glucose was checked on patient's arrival to the ED and is 119. - Related Data Home Medications Medication Instructions Recorded Confirmed Fluticasone/Umeclidin/Vilanter 1 puff INHALATION RT-DAILY 04/19/20 06/27/23 [Trelegy Ellipta 100-62.5-25] Mirtazapine [Remeron] 7.5 mg PO HS PRN 08/06/21 06/27/23 Atorvastatin Calcium [Lipitor] 80 mg PO HS 05/13/22 06/27/23 ALPRAZolam [Xanax] 0.25 mg PO DAILY PRN 12/01/22 06/27/23 Albuterol Sulfate [Albuterol 1 - 2 puff PO RT-Q4H PRN 12/01/22 06/27/23 Sulfate Hfa] Baclofen [Lioresal] 5 mg PO TID PRN 12/01/22 06/27/23 Lidocaine 5% Patch [Lidoderm 5% 1 patch TOPICAL DAILY PRN 12/01/22 06/27/23 Patch] Pantoprazole Sodium [Protonix] 20 mg PO DAILY 12/01/22 06/27/23 Ipratropium-Albuterol Nebulize 3 ml INHALATION RT-TID 06/27/23 06/27/23 [Duoneb 0.5 mg-3 mg/3 ml Soln] Metoprolol Succinate (ER) [Toprol 50 mg PO BID 06/27/23 06/27/23 Xl] Vit C/E/Zn/Coppr/Lutein/Zeaxan 1 cap PO BID 06/27/23 06/27/23 [Preservision Areds 2 Softgel] busPIRone HCL 15 mg PO BID 06/27/23 06/27/23 predniSONE 5 mg PO DAILY 06/27/23 06/27/23 Previous Rx's Medication Instructions Recorded Apixaban [Eliquis] 2.5 mg PO BID tablet 10/02/16 Clopidogrel [Plavix] 75 mg PO DAILY #30 tab 08/10/20 amLODIPine [Norvasc] 5 mg PO DAILY #30 tab 12/02/22 Allergies Allergy/AdvReac Type Severity Reaction Status Date / Time No Known Allergies Allergy Verified 06/27/23 18:55 Review of Systems ROS Statement: Those systems with pertinent positive or pertinent negative responses have been documented in the HPI. ROS Other: All systems not noted in ROS Statement are negative. Past Medical History Past Medical History: Atrial Fibrillation, Cancer, Heart Failure, COPD, CVA/TIA, Diabetes Mellitus, Deep Vein Thrombosis (DVT), Fibromyalgia, GERD/Reflux, Hyperlipidemia, Hypertension, Osteoarthritis (OA), Pneumonia, Sleep Apnea/CPAP/BIPAP, Vascular Disorder Additional Past Medical History / Comment(s): back pain , lung cancer-radiation opnly, HOME 02 2 LITERS N/C, BLOOD CLOT AFTER SX, CVA LT SIDE AFFECTED SINCE RESOLVED, HIATAL HERNIA. SHINGLES 30 YEARS AGO, DOES'NT USE CPAP MACHINE.in past for short period of time took oral meds for dm-then taken off meds-pt stated not considered diabetic now but occ will check bs., macular degeneration.past broken rt leg and lt wrist. Raynauds. Pt currently has 3 fractured ribs on the right that she has "had for years and will not heal". History of Any Multi-Drug Resistant Organisms: MRSA Date of last positivie culture/infection: 09/25/16 MDRO Source:: BRONCH WASH Past Surgical History: Cholecystectomy, Heart Catheterization With Stent, Orthopedic Surgery Additional Past Surgical History / Comment(s): rt leg repaired after break-has pins, lt wrist-plate and screws. lung bx, stents tung groins. Past Anesthesia/Blood Transfusion Reactions: Family History of Problems w/ Anesthesia Additional Past Anesthesia/Blood Transfusion Reaction / Comment(s): daughter has diff waking after aa Date of Last Stent Placement:: unk Type of Cardiac Device: Permanent Pacemaker Device Placement Date:: 09/25/20 Past Psychological History: Anxiety, Depression Smoking Status: Former smoker Past Alcohol Use History: None Reported Past Drug Use History: None Reported - Past Family History Father Family Medical History: Congestive Heart Failure (CHF), COPD Additional Family Medical History / Comment(s): emphysema Mother Family Medical History: Cancer General Exam Limitations: no limitations General appearance: alert, in no apparent distress Head exam: Present: atraumatic, normocephalic Eye exam: Present: normal appearance, PERRL, EOMI ENT exam: Present: mucous membranes moist Neck exam: Absent: tenderness, meningismus Respiratory exam: Present: normal lung sounds bilaterally. Absent: respiratory distress, wheezes, rales, rhonchi, stridor Cardiovascular Exam: Present: regular rate, normal rhythm, normal heart sounds, other (Normal radial pulses bilaterally) GI/Abdominal exam: Present: soft. Absent: distended, tenderness, guarding Extremities exam: Absent: pedal edema Neurological exam: Present: alert, oriented X3, CN II-XII intact, other (NIH stroke scale score = 1 (mild to moderate aphasia)). Absent: motor sensory deficit Skin exam: Present: warm, dry, normal color Course Vital Signs 06/27/23 06/27/23 06/27/23 17:30 17:48 18:03 Temperature 98.3 F 97.9 F Pulse Rate 83 66 63 Respiratory 16 17 17 Rate Blood Pressure 155/73 170/98 156/89 O2 Sat by Pulse 96 99 96 Oximetry 06/27/23 06/27/23 06/27/23 18:25 18:33 18:45 Temperature 98.0 F 98.0 F 98.0 F Pulse Rate 61 66 60 Respiratory 16 17 16 Rate Blood Pressure 147/73 146/64 159/76 O2 Sat by Pulse 98 95 96 Oximetry 06/27/23 19:00 Temperature Pulse Rate 80 Respiratory 20 Rate Blood Pressure 142/72 O2 Sat by Pulse 96 Oximetry - Reevaluation(s) Reevaluation #1: 06/27/23 17:56 Case, H&P, code stroke activation and pending ED workup were discussed with Dr. Ferrari (neurointensivist). 06/27/23 19:14 Case, H&P, test results and ED management thus far were discussed with NURSING SERVICES MANAGER Vanda Gaona. She accepts hospital admission. She agrees with neurology consultation. She has no further recommendations at this time. 06/27/23 19:19 Patient's neurological exam is unchanged. Patient denies development of any new symptoms while in the ED. Patient and daughter are aware of the patient's test results and my discussions as above. They both agree with hospital admission at this time. EKG Findings - EKG Comments: EKG Findings:: ED physician interpretation (interpreted by me): Normal sinus rhythm, ventricular rate of 63 bpm, no ectopy, normal [place] and QRS intervals, normal QT interval, normal axis, no ST or T wave abnormality Medical Decision Making - Medical Decision Making Was pt. sent in by a medical professional or institution (, VERONICA, NURSING SERVICES MANAGER, urgent care, hospital, or jail...) When possible be specific @ -No Did you speak to anyone other than the patient for history (EMS, parent, family, police, friend...)? What history was obtained from this source @ -History was also obtained from the patient's daughter. Did you review nursing and triage notes (agree or disagree)? Why? @ -I reviewed and agree with nursing and triage notes Were old charts reviewed (outside hosp., previous admission, EMS record, old EKG, old radiological studies, urgent care reports/EKG's, jail records)? Report findings @ -No old charts were reviewed Differential Diagnosis (chest pain, altered mental status, abdominal pain women, abdominal pain men, vaginal bleeding, weakness, fever, dyspnea, syncope, headac he, dizziness, GI bleed, back pain, seizure, CVA, palpatations, mental health, musculoskeletal)? @ -Differential CVA Ischemic stroke, hemorrhagic stroke, brain tumor, atypical migraine, Wernicke's encephalopathy, seizure, encephalitis, hypoglycemia, electrolytes disturbance, .... This is not meant to be an all-inclusive list EKG interpreted by me (3pts min.). @ -As above X-rays interpreted by me (1pt min.). @ -Chest x-ray was reviewed myself and shows no acute abnormality. I agree with the radiologist's interpretation as above. CT interpreted by me (1pt min.). @ -Noncontrast head CT and CT angiography head/neck were reviewed myself and showed no acute abnormality. I agree with the radiologist's interpretations as above. U/S interpreted by me (1pt. min.). @ -None done What testing was considered but not performed or refused? (CT, X-rays, U/S, labs)? Why? @ -None What meds were considered but not given or refused? Why? @ -None Did you discuss the management of the patient with other professionals (professionals i.e. , PA, NURSING SERVICES MANAGER, lab, RT, psych nurse, child welfare social worker, security strategist, te acher, juvenile corrections officer, case checker)? Give summary @ -As above. Was smoking cessation discussed for >3mins.? @ -No Was critical care preformed (if so, how long)? @ -Yes, 40 minutes. Were there social determinants of health that impacted care today? How? (Homelessness, low income, unemployed, alcoholism, drug addiction, transportation, low edu. Level, literacy, decrease access to med. care, senior living, rehab)? @ -No Was there de-escalation of care discussed even if they declined (Discuss DNR or withdrawal of care, Hospice)? DNR status @ -No What co-morbidities impacted this encounter? (DM, HTN, Smoking, COPD, CAD, Cancer, CVA, ARF, Chemo, Hep., AIDS, mental health diagnosis, sleep apnea, morbi d obesity)? @ -History of TIAs, atrial fibrillation Was patient admitted / discharged? Hospital course, mention meds given and route, prescriptions, significant lab abnormalities, going to OR and other pertinent info. @ -Patient presented to the ED with improving symptoms. Code stroke was activated. Patient's NIH stroke scale score was 1 on presentation to the ED. Patient's neuroimaging studies are all fairly unremarkable. Other than mild hypokalemia, the patient's labs are also fairly unremarkable. Will admit the patient to the hospital for TIA workup, monitoring/observation and neurology consultation. NURSING SERVICES MANAGER Vanda Gaona has accepted hospital admission. Patient and daughter agree with this plan. Undiagnosed new problem with uncertain prognosis? @ -No Drug Therapy requiring intensive monitoring for toxicity (Heparin, Nitro, Insulin, Cardizem)? @ -No Were any procedures done? @ -No Diagnosis/symptom? @ -Transient expressive aphasia/TIA symptoms Acute, or Chronic, or Acute on Chronic? @ -Acute Uncomplicated (without systemic symptoms) or Complicated (systemic symptoms)? @ -Default Side effects of treatment? @ -No Exacerbation, Progression, or Severe Exacerbation? @ -No Poses a threat to life or bodily function? How? (Chest pain, USA, MT, pneumonia, PE, COPD, DKA, ARF, appy, cholecystitis, CVA, Diverticulitis, Homicidal, Suicidal, threat to staff... and all critical care pts) @ -No - Lab Data Result diagrams: 06/27/23 17:53 06/27/23 17:53 Lab Results 06/27/23 06/27/23 06/27/23 Range/Units 17:45 17:53 17:53 WBC 14.7 H (3.8-10.6) k/uL RBC 4.54 (3.80-5.40) m/uL Hgb 13.4 (11.4-16.0) gm/dL Hct 41.7 (34.0-46.0) % MCV 91.9 (80.0-100.0) fL MCH 29.5 (25.0-35.0) pg MCHC 32.1 (31.0-37.0) g/dL RDW 13.5 (11.5-15.5) % Plt Count 238 (150-450) k/uL MPV 7.9 Neutrophils % 69 % Lymphocytes % 23 % Monocytes % 4 % Eosinophils % 2 % Basophils % 0 % Neutrophils # 10.2 H (1.3-7.7) k/uL Lymphocytes # 3.4 (1.0-4.8) k/uL Monocytes # 0.6 (0-1.0) k/uL Eosinophils # 0.4 (0-0.7) k/uL Basophils # 0.0 (0-0.2) k/uL PT 11.1 (10.0-12.5) sec INR 1.0 (<1.2) APTT 24.9 (22.0-30.0) sec Sodium (137-145) mmol/L Potassium (3.5-5.1) mmol/L Chloride (98-107) mmol/L Carbon Dioxide (22-30) mmol/L Anion Gap mmol/L BUN (7-17) mg/dL Creatinine (0.52-1.04) mg/dL Est GFR (CKD-EPI)AfAm (>60 ml/min/1.73 sqM) Est GFR (CKD-EPI)NonAf (>60 ml/min/1.73 sqM) Glucose (74-99) mg/dL POC Glucose (mg/dL) 119 H (70-110) mg/dL POC Glu Barn Worker ID Taylor Patterson Calcium (8.4-10.2) mg/dL Total Bilirubin (0.2-1.3) mg/dL AST (14-36) U/L ALT (4-34) U/L Alkaline Phosphatase (38-126) U/L Creatine Kinase (30-135) U/L Troponin I (0.000-0.034) ng/mL Total Protein (6.3-8.2) g/dL Albumin (3.5-5.0) g/dL Serum Alcohol mg/dL 06/27/23 06/27/23 Range/Units 17:53 17:53 WBC (3.8-10.6) k/uL RBC (3.80-5.40) m/uL Hgb (11.4-16.0) gm/dL Hct (34.0-46.0) % MCV (80.0-100.0) fL MCH (25.0-35.0) pg MCHC (31.0-37.0) g/dL RDW (11.5-15.5) % Plt Count (150-450) k/uL MPV Neutrophils % % Lymphocytes % % Monocytes % % Eosinophils % % Basophils % % Neutrophils # (1.3-7.7) k/uL Lymphocytes # (1.0-4.8) k/uL Monocytes # (0-1.0) k/uL Eosinophils # (0-0.7) k/uL Basophils # (0-0.2) k/uL PT (10.0-12.5) sec INR (<1.2) APTT (22.0-30.0) sec Sodium 136 L (137-145) mmol/L Potassium 5.7 H (3.5-5.1) mmol/L Chloride 102 (98-107) mmol/L Carbon Dioxide 24 (22-30) mmol/L Anion Gap 10 mmol/L BUN 26 H (7-17) mg/dL Creatinine 0.79 (0.52-1.04) mg/dL Est GFR (CKD-EPI)AfAm 80 (>60 ml/min/1.73 sqM) Est GFR (CKD-EPI)NonAf 70 (>60 ml/min/1.73 sqM) Glucose 131 H (74-99) mg/dL POC Glucose (mg/dL) (70-110) mg/dL POC Glu Barn Worker ID Calcium 9.4 (8.4-10.2) mg/dL Total Bilirubin 1.3 (0.2-1.3) mg/dL AST 75 H (14-36) U/L ALT 46 H (4-34) U/L Alkaline Phosphatase 57 (38-126) U/L Creatine Kinase 92 (30-135) U/L Troponin I <0.012 (0.000-0.034) ng/mL Total Protein 7.9 (6.3-8.2) g/dL Albumin 4.8 (3.5-5.0) g/dL Serum Alcohol 17 mg/dL - Radiology Data Chest x-ray: No acute cardiopulmonary disease with no interval change. Noncontrast head CT: No CT evidence of an acute intracranial abnormality. Atrophy and chronic microvascular ischemic white matter changes. Paranasal sinus disease. CT angiography head/neck with IV contrast: 1. No intracranial large vessel occlusion, significant stenosis, or sizable aneurysm detected in the limits of CTA. 2. Other chronic and likely incidental findings as above. Critical Care Time Critical Care Time: Yes Total Critical Care Time: 40 Disposition Clinical Impression: Expressive aphasia, Headache Narrative: Suspected TIA Disposition: ADMITTED IP TO THIS [facility] Condition: Stable Is patient prescribed a controlled substance at d/c from ED?: No Referrals: Nohemi Estrada MD [Primary Care Provider] - 1-2 days Time of Disposition: 19:14
[2023-06-27 17:47] LABS: Glucose,Whole Blood 119 mg/dL (70-110)
[2023-06-27 18:00] LABS: Basophils % (A) 0 %; Eosinophils # (A) 0.4 k/uL (0-0.7); Eosinophils % (A) 2 %; HCT 41.7 % (34.0-46.0); HGB 13.4 gm/dL (11.4-16.0); Lymphocytes # (A) 3.4 k/uL (1.0-4.8); Lymphocytes % (A) 23 %; MCH 29.5 pg (25.0-35.0); MCHC 32.1 g/dL (31.0-37.0); MCV 91.9 fL (80.0-100.0); Mean Platelet Volume 7.9; Monocytes # (A) 0.6 k/uL (0-1.0); Monocytes % (A) 4 %; Neutrophils # (A) 10.2 k/uL (1.3-7.7); Neutrophils % (A) 69 %; Platelet Count 238 k/uL (150-450); RBC 4.54 m/uL (3.80-5.40); RDW 13.5 % (11.5-15.5); WBC 14.7 k/uL (3.8-10.6)
--- NOTE | 2023-06-27 18:06 | XR ---
EXAMINATION TYPE: XR chest 1V portable DATE OF EXAM: 06/27/2023 COMPARISON: 08/06/2021 HISTORY: Altered mental status TECHNIQUE: Single frontal view of the chest is obtained. FINDINGS: Again seen is a displaced right seventh posterior rib fracture. There is a persistent nodular opacity in the right mid lung zone unchanged compared to previous. There is no acute new airspace or interst itial opacity. There is no pleural effusion or pneumothorax. Heart size is normal and the pulmonary vasculature is within normal limits. There is a 2-lead cardiac pacemaker. IMPRESSION: No acute cardiopulmonary disease with no interval change.
[2023-06-27 18:12] LABS: ALT 46 U/L (4-34); AST 75 U/L (14-36); African American GFR (CKD) 80 (>60 ml/min/1.73 sqM); Albumin 4.8 g/dL (3.5-5.0); Alcohol 17 mg/dL; Alkaline Phosphatase 57 U/L (38-126); Anion Gap 10 mmol/L; Blood Urea Nitrogen 26 mg/dL (7-17); Calcium 9.4 mg/dL (8.4-10.2); Carbon Dioxide 24 mmol/L (22-30); Chloride 102 mmol/L (98-107); Creatine Kinase 92 U/L (30-135); Glucose 131 mg/dL (74-99); Non-African American GFR(CKD) 70 (>60 ml/min/1.73 sqM); Sodium 136 mmol/L (137-145); Total Bilirubin 1.3 mg/dL (0.2-1.3); Total Protein 7.9 g/dL (6.3-8.2)
[2023-06-27 18:14] LABS: Potassium 5.7 mmol/L (3.5-5.1)
[2023-06-27 18:26] LABS: Partial Thromboplastin Time 24.9 sec (22.0-30.0); Prothrombin Time 11.1 sec (10.0-12.5)
--- NOTE | 2023-06-27 18:29 | CT ---
EXAMINATION TYPE: CT brain wo con CT DLP: 1128.6 mGycm, Automated exposure control for dose reduction was used. DATE OF EXAM: 06/27/2023 6:14 PM COMPARISON: CT 12/17/2022. CLINICAL INDICATION:Female, 83 years old with history of expressive aphasia, Code stroke. Expressive aphasia. Headache. TECHNIQUE: Brain: Axial CT images of the brain were obtained with coronal and sagittal reformats created and rev iewed. Contrast used: None. Oral contrast used: None. FINDINGS: Extra-axial spaces: No abnormal extra-axial fluid collections. Ventricular system: Ventricles appear dilated in proportion to the degree of cerebral atrophy. Cerebral parenchyma: No increased attenuation to suggest acute intraparenchymal hemorrhage. The gra y-white matter interface appears maintained, no CT evidence of acute territorial infarct. Moderate t o severe generalized brain atrophy. Patchy and some confluent hypoattenuating areas are seen within the cerebral white matter, nonspecific but most often seen with chronic microvascular ischemic change s; moderate/severe in degree. Remote appearing lacunar infarct in the right basal ganglia region inf eriorly. Remote right caudate infarct. Cerebellum: No acute abnormality. Mass effect: No evidence of mass effect or midline shift. Intracranial vasculature: Atherosclerotic calcifications of the larger arteries near the skull base. Soft tissues: No acute or concerning abnormality. Visualized orbits: Orbital contents appear grossly intact. There has likely been previous lens surg reny. Calvarium/osseous structures: No evidence of calvarial fracture. Paranasal sinuses and mastoid air cells: Lory bullosa again noted on the left containing small amou nt of fluid. Small frothy secretion in the left sphenoid sinus. Correlate for sinusitis. Nasal septal deviation towards the right anteriorly. MRI is more sensitive for detecting acute processes such as infarct, and may be considered if clinica lly warranted. IMPRESSION: No CT evidence of an acute intracranial abnormality. Atrophy and chronic microvascular ischemic white matter changes. Paranasal sinus disease.
[2023-06-27] MEDS: ASPIRIN 81 MG PO STA (18:45)
--- NOTE | 2023-06-27 19:09 | CT ---
EXAMINATION TYPE: CT angio head neck DATE OF EXAM: 06/27/2023 6:26 PM COMPARISON: Same day CT head. CLINICAL INDICATION:Female, 83 years old with history of Neuro deficit, acute, stroke suspected; PHH, Code stroke. Expressive aphasia. Headache. TECHNIQUE: Axially acquired helical CT angiogram of the head and neck was obtained with contrast. Axi al images are supplemented with 3D reconstructions which [facility] NASCET criteria used. Contrast used: 65 cc mL of Isovue 370 with IV Contrast, Oral contrast used: None. CT DLP: 333.6 mGycm, Automated exposure control for dose reduction was used. FINDINGS: CTA Neck: A 3 vessel aortic arch is shown. Atherosclerotic calcific plaque along the aorta and origins of the branch vessels with mild stenoses seen. Brachiocephalic artery, right subclavian artery, left subclav radha artery appear otherwise patent as seen. Right carotid system: Mild mixed plaque at the proximal aspect of the CCA with no hemodynamically sig nificant stenosis. Carotid bifurcation is patent. There is mild soft plaque at the carotid bulb with suggestion of slight ulceration.ICA is patent to the skull base. Mixed plaque at the origin of the external carotid artery causes moderate ECA stenosis. Left carotid system: The common carotid shows scattered calcific plaque without significant stenosis. Moderate amount of mostly calcific plaque at the bifurcation and within the proximal aspects of the ICA, with areas of narrowing up to 60% diameter stenosis. Mild narrowing of the origin of the ECA. Th e ICA is then patent to the skull base. There is no evidence of dissection, nor pseudoaneurysm present. Vertebral arteries: There is no significant atherosclerotic plaque at the origins of the vertebral ar teries. The vertebrals are then otherwise patent to the skull base. The left vertebral artery is dominant. Other: Visualized neck soft tissues show no acute abnormality. Cervical spine shows moderate multilev el spondylosis with degenerative changes appearing most significant at C5-C6 where there is mild to m oderate spinal canal and moderate bilateral neural foraminal stenoses. Degenerative changes with retr odental soft tissue at the C1-C2 articulation anteriorly causes mild/moderate narrowing of the anteri or canal. Mild degenerative anterolisthesis C2 on C3, C3 on C4, C4 on C5, and mild retrolisthesis C5 on C6. Degenerative hypertrophic changes of both sternoclavicular joints. Included lung apices show moderate to severe emphysematous changes and presumed chronic reticulonodul ar changes. A 4 mm nodule in the left upper lobe image 30 is seen, appears stable from CT chest 04/03. CTA Head: There are moderate calcifications of the cavernous portions of the ICAs with mild to moderate narrowi ng overall but no focal critical stenosis suggested. On the right, there is absence of the A1 segment MARSHA, this vessel is supplied farther distally from t he left side. The right MCA appears normally patent. Normal carotid terminus on the left. Left MCA and MARSHA appear normally patent. Anterior communicating artery is present. The left A1 segment provides supply to both the left MARSHA and the right MARSHA beyond the A1 segment. The intracranial vertebral arteries enhance normally, left is dominant. Basilar artery is patent and unremarkable. Normal basilar bifurcation without evidence of aneurysm. Visualized proximal manager bar are p atent. A right posterior communicating artery is not definitely seen. A left posterior communicating artery is not definitely seen. No intracranial large vessel occlusion, hemodynamically significant stenosis, aneurysm, dissection, o r arteriovenous malformation is shown. The dural venous sinuses appear grossly patent without evidence of thrombosis. Other: Please refer to same-day CT head report. IMPRESSION: CTA neck: 1. No occlusion, dissection or pseudoaneurysm detected in the carotid or vertebral arteries in the ne ck. 2. Atherosclerotic disease is present, with calcific plaques in the proximal left ICA causing up to 60% diameter stenosis. Mild soft plaque in the proximal right ICA with suggestion of mild broad-based ulceration; no significant stenosis. 3. Biapical moderate to severe emphysematous changes. A 4 mm nodule in the left upper lobe appears st able from CT chest 04/03/2023; continued follow-up may be advisable. CTA head: 1. No intracranial large vessel occlusion, significant stenosis, or sizable aneurysm detected in the limits of CTA. 2. Other chronic and likely incidental findings as above.
[2023-06-27] MEDS ORDERED: ALBUTEROL NEBULIZED 2.5 MG/3 ML INHALATION PRN (20:06)
[2023-06-27] MEDS ORDERED: DEXTROSE 50% SYRINGE 50 ML IVP PRN ×2 (20:07)
[2023-06-27] MEDS: INSULIN ASPART (NovoLOG) 100 UNIT/ML VIAL SQ SCH (20:28)
[2023-06-27] MEDS: ACETAMINOPHEN TAB 325 MG TAB PO STA (20:51)
[2023-06-27] MEDS: APIXABAN 2.5 MG TABLET PO SCH (20:51)
[2023-06-27] MEDS: busPIRone HCl 5 MG TAB PO SCH (20:51)
[2023-06-27] MEDS: ATORVASTATIN 80 MG TAB PO SCH (20:52)
[2023-06-27] MEDS: SODIUM ZIRCONIUM CYCLOSILICATE 10 GM PACKET PO ONE (20:52)
[2023-06-27] MEDS: METOPROLOL SUCCINATE (ER) 50 MG TAB.ER.24H PO SCH (20:52)
[2023-06-27 21:49] LABS: Glucose,Whole Blood 128 mg/dL (70-110)
[2023-06-27 21:57] LABS: Appearance,Urine Clear (Clear); Bacteria,Urine Rare /hpf; Bilirubin,Urine Negative (Negative); Blood,Urine Negative (Negative); Budding Yeast,Urine Few /hpf; Color,Urine Light Yellow; Glucose,Urine (UA) Negative (Negative); Hyaline Casts,Urine 13 /lpf (0-2); Ketones,Urine Negative (Negative); Leukocyte Esterase,Urine Large (Negative); Mucus,Urine Rare /hpf; Nitrite,Urine Negative (Negative); PH, Urine 5.5 (5.0-8.0); Protein,Urine Negative (Negative); RBC,Urine <1 /hpf (0-5); Specific Gravity,Urine 1.037 (1.001-1.035); Squamous Epithelial Cell,Urine 8 /hpf (0-4); Urobilinogen,Urine <2.0 mg/dL (<2.0); WBC,Urine 23 /hpf (0-5)
[2023-06-27 22:26] LABS: Amphetamine Screen,Urine Not Detected (NotDetected); Barbiturate Screen,Urine Not Detected (NotDetected); Benzodiazepines Screen,Urine Not Detected (NotDetected); Cocaine Screen,Urine Not Detected (NotDetected); Methadone Screen, Urine Not Detected (NotDetected); Opiate Screen,Urine Not Detected (NotDetected); Oxycodone Screen, Urine Not Detected (NotDetected); Phencyclidine Screen,Urine Not Detected (NotDetected); Tricyclic Antidepressant,Urine Not Detected (NotDetected); Urn Cannabinoid Scrn Not Detected (NotDetected)
[2023-06-27] MEDS ORDERED: NALOXONE 0.4 MG/ML 1 ML VIAL IV PRN (22:26)
[2023-06-27] MEDS: MIRTAZAPINE 15 MG TAB PO PRN (22:42)
[2023-06-27 23:21] LABS: African American GFR (CKD) 76 (>60 ml/min/1.73 sqM); Anion Gap 6 mmol/L; Blood Urea Nitrogen 28 mg/dL (7-17); Calcium 9.2 mg/dL (8.4-10.2); Carbon Dioxide 27 mmol/L (22-30); Chloride 101 mmol/L (98-107); Glucose 165 mg/dL (74-99); Non-African American GFR(CKD) 66 (>60 ml/min/1.73 sqM); Potassium 4.2 mmol/L (3.5-5.1); Sodium 134 mmol/L (137-145)
[2023-06-28] MEDS: HYDROcodone/APAP 5-325MG 1 EACH TAB PO STA (01:45)
[2023-06-28 06:27] LABS: Glucose,Whole Blood 123 mg/dL (70-110)
[2023-06-28] MEDS: PANTOPRAZOLE 40 MG TABLET PO SCH (06:37)
[2023-06-28] MEDS: IPRATROPIUM-ALBUTEROL 3 ML NEB INHALATION SCH (07:54)
[2023-06-28] MEDS: SYMBICORT 80-4.5 MCG INHALER INHALATION SCH (07:54)
[2023-06-28] MEDS: amLODIPine 5 MG TAB PO SCH (08:38)
[2023-06-28] MEDS: CLOPIDOGREL 75 MG TAB PO SCH (08:38)
[2023-06-28] MEDS: predniSONE 5 MG TAB PO SCH (08:39)
[2023-06-28] MEDS: LIDOCAINE 4% PATCH TOPICAL PRN (09:23)
[2023-06-28] MEDS: VIT A,C & E-LUTEIN-MINERALS 1 EACH TAB PO SCH (10:28)
[2023-06-28] MEDS: AMOXIC-POT CLAV 875-125MG 1 EACH TAB PO SCH (10:28)
[2023-06-28 11:23] LABS: Glucose,Whole Blood 168 mg/dL (70-110)
[2023-06-28 12:52] LABS: Basophils # (A) 0.1 k/uL (0-0.2); Basophils % (A) 1 %; Eosinophils # (A) 0.2 k/uL (0-0.7); Eosinophils % (A) 2 %; HCT 36.5 % (34.0-46.0); HGB 12.1 gm/dL (11.4-16.0); Lymphocytes # (A) 2.7 k/uL (1.0-4.8); Lymphocytes % (A) 31 %; MCH 30.4 pg (25.0-35.0); MCHC 33.2 g/dL (31.0-37.0); MCV 91.6 fL (80.0-100.0); Mean Platelet Volume 7.8; Monocytes # (A) 0.5 k/uL (0-1.0); Monocytes % (A) 6 %; Neutrophils # (A) 5.1 k/uL (1.3-7.7); Neutrophils % (A) 58 %; Platelet Count 225 k/uL (150-450); RBC 3.98 m/uL (3.80-5.40); RDW 13.4 % (11.5-15.5); WBC 8.7 k/uL (3.8-10.6)
[2023-06-28 13:11] LABS: ALT 33 U/L (4-34); AST 35 U/L (14-36); African American GFR (CKD) >90 (>60 ml/min/1.73 sqM); Albumin 3.8 g/dL (3.5-5.0); Alkaline Phosphatase 65 U/L (38-126); Anion Gap 2 mmol/L; Blood Urea Nitrogen 24 mg/dL (7-17); Calcium 9.3 mg/dL (8.4-10.2); Carbon Dioxide 34 mmol/L (22-30); Chloride 99 mmol/L (98-107); Glucose 115 mg/dL (74-99); Magnesium 1.7 mg/dL (1.6-2.3); Non-African American GFR(CKD) 80 (>60 ml/min/1.73 sqM); Potassium 3.9 mmol/L (3.5-5.1); Sodium 135 mmol/L (137-145); Total Bilirubin 0.7 mg/dL (0.2-1.3); Total Protein 6.3 g/dL (6.3-8.2)
--- NOTE | 2023-06-28 13:19 | P.HPIM ---
History of Present Illness H&P Date: 06/28/23 Chief Complaint: expressive aphasia * 83-year-old lady with past medical history significant for atrial fibrillation, history of congestive heart failure, coronary artery disease, peripheral arterial disease COPD, diabetes mellitus, previous history of fibromyalgia, CVA presents to the emergency department with complains of sudden onset of word-finding difficulty. Patient was active burden with sudden onset she started having difficulty finding words. This was approxim ately 45 minutes prior to presentation to ED patient has also been complaining of intermittent headache. Patient states she with Eliquis which she takes for history of atrial fibrillation. Code stroke was activated at the time of presentation in ED.. * Workup initiated in ER included EKG which showed sinus rhythm no significant ST segment changes serum chemistry obtained showed sodium of 136 potassium 5.7 BUN 26 creatinine 0.79, WBC 14.7 hemoglobin 13.4 hematocrit 41 platelets 230 * CT head was obtained which was negative for acute intracranial process, CT angio head and neck was negative for large vessel occlusion. * Patient to be admitted to medical floor for treatment of expressive aphasia rule out CVA REVIEW OF SYSTEMS: Dysarthria, word finding difficulty CONSTITUTIONAL: No fever, no malaise, no fatigue. HEENT: No recent visual problems or hearing problems. Denied any sore throat. CARDIOVASCULAR: No chest pain, orthopnea, PND, no palpitations, no syncope. PULMONARY: No shortness of breath, no cough, no hemoptysis. GASTROINTESTINAL: No diarrhea, no nausea, no vomiting, no abdominal pain. NEUROLOGICAL: Dysarthria, word finding difficulty HEMATOLOGICAL: Denies any bleeding or petechiae. GENITOURINARY: Denies any burning micturition, frequency, or urgency. MUSCULOSKELETAL/RHEUMATOLOGICAL: Denies any joint pain, swelling, or any muscle pain. ENDOCRINE: Denies any polyuria or polydipsia. PHYSICAL EXAMINATION: GENERAL: The patient is alert and oriented x3, not in any acute distress. Well developed, well nourished. HEENT: Pupils are round and equally reacting to light. EOMI. CARDIOVASCULAR: S1 and S2 present. No murmurs, rubs, or gallops. PULMONARY: Chest is clear to auscultation, no wheezing or crackles. ABDOMEN: Soft, nontender, nondistended, normoactive bowel sounds. No palpable organomegaly. MUSCULOSKELETAL: No joint swelling or deformity. EXTREMITIES: No cyanosis, clubbing, or pedal edema. NEUROLOGICAL: Gross neurological examination did not reveal any focal deficits. Motor strength is equal and symmetrical bilateral upper and lower extremities cranial nerves II to XII intact SKIN: No rashes. Past Medical History Past Medical History: Atrial Fibrillation, Cancer, Heart Failure, COPD, CVA/TIA, Diabetes Mellitus, Deep Vein Thrombosis (DVT), Fibromyalgia, GERD/Reflux, Hyperlipidemia, Hypertension, Osteoarthritis (OA), Pneumonia, Sleep Apnea/CPAP /BIPAP, Vascular Disorder Additional Past Medical History / Comment(s): back pain , lung cancer-radiation opnly, HOME 02 2 LITERS N/C, BLOOD CLOT AFTER SX, CVA LT SIDE AFFECTED SINCE RESOLVED, HIATAL HERNIA. SHINGLES 30 YEARS AGO, DOES'NT USE CPAP MACHINE.in past for short period of time took oral meds for dm-then taken off meds-pt stated not considered diabetic now but occ will check bs., macular degeneration.past broken rt leg and lt wrist. Raynauds. Pt currently has 3 fractured ribs on the right that she has "had for years and will not heal". History of Any Multi-Drug Resistant Organisms: MRSA Date of last positivie culture/infection: 09/25/16 MDRO Source:: BRONCH WASH Past Surgical History: Cholecystectomy, Heart Catheterization With Stent, Orthopedic Surgery Additional Past Surgical History / Comment(s): rt leg repaired after break-has pins, lt wrist-plate and screws. lung bx, stents tung groins. Past Anesthesia/Blood Transfusion Reactions: Family History of Problems w/ Anesthesia Additional Past Anesthesia/Blood Transfusion Reaction / Comment(s): daughter has diff waking after aa Date of Last Stent Placement:: unk Type of Cardiac Device: Permanent Pacemaker Device Placement Date:: 09/25/20 Past Psychological History: Anxiety, Depression Smoking Status: Former smoker Past Alcohol Use History: None Reported Past Drug Use History: None Reported - Past Family History Father Family Medical History: Congestive Heart Failure (CHF), COPD Additional Family Medical History / Comment(s): emphysema Mother Family Medical History: Cancer Medications and Allergies Home Medications Medication Instructions Recorded Confirmed Type Apixaban [Eliquis] 2.5 mg PO BID tablet 10/02/16 06/27/23 Rx Fluticasone/Umeclidin/Vilanter 1 puff INHALATION RT-DAILY 04/19/20 06/27/23 History [Trelegy Ellipta 100-62.5-25] Clopidogrel [Plavix] 75 mg PO DAILY #30 tab 08/10/20 06/27/23 Rx Mirtazapine [Remeron] 7.5 mg PO HS PRN 08/06/21 06/27/23 History Atorvastatin Calcium [Lipitor] 80 mg PO HS 05/13/22 06/27/23 History ALPRAZolam [Xanax] 0.25 mg PO DAILY PRN 12/01/22 06/27/23 History Albuterol Sulfate [Albuterol 1 - 2 puff PO RT-Q4H PRN 12/01/22 06/27/23 History Sulfate Hfa] Baclofen [Lioresal] 5 mg PO TID PRN 12/01/22 06/27/23 History Lidocaine 5% Patch [Lidoderm 5% 1 patch TOPICAL DAILY PRN 12/01/22 06/27/23 History Patch] Pantoprazole Sodium [Protonix] 20 mg PO DAILY 12/01/22 06/27/23 History amLODIPine [Norvasc] 5 mg PO DAILY #30 tab 12/02/22 06/27/23 Rx Ipratropium-Albuterol Nebulize 3 ml INHALATION RT-TID 06/27/23 06/27/23 History [Duoneb 0.5 mg-3 mg/3 ml Soln] Metoprolol Succinate (ER) [Toprol 50 mg PO BID 06/27/23 06/27/23 History Xl] Vit C/E/Zn/Coppr/Lutein/Zeaxan 1 cap PO BID 06/27/23 06/27/23 History [Preservision Areds 2 Softgel] busPIRone HCL 15 mg PO BID 06/27/23 06/27/23 History predniSONE 5 mg PO DAILY 06/27/23 06/27/23 History Allergies Allergy/AdvReac Type Severity Reaction Status Date / Time No Known Allergies Allergy Verified 06/27/23 18:55 Physical Exam Vitals: Vital Signs Temp Pulse Resp BP Pulse Ox 06/27/23 20:57 97.8 F 84 16 147/70 95 06/27/23 20:00 97.1 F L 70 16 118/69 96 06/27/23 19:00 80 20 142/72 96 06/27/23 18:45 98.0 F 60 16 159/76 96 06/27/23 18:33 98.0 F 66 17 146/64 95 06/27/23 18:25 98.0 F 61 16 147/73 98 06/27/23 18:03 63 17 156/89 96 06/27/23 17:48 97.9 F 66 17 170/98 99 06/27/23 17:30 98.3 F 83 16 155/73 96 Intake and Output 06/27/23 06/27/23 06/27/23 06:59 14:59 22:59 Other: Weight 58.2 kg Results CBC & Chem 7: 06/28/23 12:16 06/28/23 12:16 Labs: Abnormal Lab Results - Last 24 Hours (Table) 06/27/23 06/27/23 06/27/23 Range/Units 17:45 17:53 17:53 WBC 14.7 H (3.8-10.6) k/uL Neutrophils # 10.2 H (1.3-7.7) k/uL Sodium 136 L (137-145) mmol/L Potassium 5.7 H (3.5-5.1) mmol/L BUN 26 H (7-17) mg/dL Glucose 131 H (74-99) mg/dL POC Glucose (mg/dL) 119 H (70-110) mg/dL AST 75 H (14-36) U/L ALT 46 H (4-34) U/L Ur Specific [place] (1.001-1.035) Ur Leukocyte Esterase (Negative) Urine WBC (0-5) /hpf Ur Squamous Epith Cells (0-4) /hpf Urine Bacteria (None) /hpf Hyaline Casts (0-2) /lpf Urine Mucus (None) /hpf Urine Yeast (Budding) (None) /hpf 06/27/23 06/27/23 Range/Units 21:25 21:46 WBC (3.8-10.6) k/uL Neutrophils # (1.3-7.7) k/uL Sodium (137-145) mmol/L Potassium (3.5-5.1) mmol/L BUN (7-17) mg/dL Glucose (74-99) mg/dL POC Glucose (mg/dL) 128 H (70-110) mg/dL AST (14-36) U/L ALT (4-34) U/L Ur Specific [place] 1.037 H (1.001-1.035) Ur Leukocyte Esterase Large H (Negative) Urine WBC 23 H (0-5) /hpf Ur Squamous Epith Cells 8 H (0-4) /hpf Urine Bacteria Rare H (None) /hpf Hyaline Casts 13 H (0-2) /lpf Urine Mucus Rare H (None) /hpf Urine Yeast (Budding) Few H (None) /hpf Assessment and Plan Assessment: Assessment and plan * expressive aphasia rule out CVA * Acute sinusitis * history of diabetes mellitus type 2 * history of atrial fibrillation * history of COPD * in regards to episode of expressive aphasia, CT head, CT angio head and neck reviewed. MRI brain ordered. Neurology consulted, continue neuro checks * In regards to acute sinusitis patient started on Augmentin * in regards to history of diabetes Accu-Cheks a.c. HS continue correctional insulin * in regards to history of AFib continue patient on Eliquis continue rate control medications * regards to history of COPD continue patient on bronchodilator protocol * Will need physical therapy occupational therapy evaluation * code status is full code Time with Patient: Greater than 30
[2023-06-28 13:29] LABS: Glucose,Whole Blood 168 mg/dL (70-110)
[2023-06-28] MEDS ORDERED: HYDROcodone/APAP 5-325MG 1 EACH TAB PO PRN (13:39)
[2023-06-28] MEDS: ONDANSETRON 4 MG/2 ML VIAL IVP PRN (13:44)
--- NOTE | 2023-06-28 14:18 | P.CNNES ---
History of Present Illness Consult date: 06/28/23 Requesting physician: Ismael Weiner Reason for Consult: tia History of Present Illness: This is an 83-year-old woman who presented emergency department because of speech difficulty. She stated that the yesterday around 1 PM she was having difficulty getting her words out and having difficulty forming a sentence. She stated that the episode lasted for about an hour and a half. But also has a left lower extremity weakness that has not resolved yet. She denies any history of stroke in the past or TIA. She has history of atrial fibrillation and she is on Eliquis 2.5mg bid. She is also on Plavix. She denies missing her medication. She has other cardiac issues. Some of the workup during his hospital visit consisted of: Initial POC glucose is 119, sodium is 136, AST is 75 ALT of 46, calcium is 9.4, magnesium is 1.7. Her drug screen is nondetected that. The serum alcohol is 17 Urinalysis seems possible stress for underlying urinary tract infection. The leukocyte esterase was large, urine white blood cell 23, urine bacteria was rare. CT of the head is reported as no evidence for acute intracranial abnormality. Atrophy and chronic microvascular ischemic white matter changes. Paranasal sinus disease. I personally reviewed the CT and I feel there is questionable hypodensity over the left frontal parietal region over the coronal as well as old over the right thalamus temporal region I could not evaluate the axial since was a fair hard to get a good image on the axial. There is no bleed. CT angiography of the head is reported as no intracranial large vessel occlusion, significant stenosis or sizable aneurysm detected in the limits of CTA. Other chronic and likely incidental finding as above. CT angiography of the neck is reported as no occlusion, dissection or sooner aneurysm detected in the carotid or vertebral artery in the neck. At this carotid disease is present with calcific plaque at the proximal left ICA causing up to 60% diameter stenosis. Mild soft plaque in the proximal right ICA suggestive of mild broadbase ulceration, no significant stenosis. Biapical moderate to severe emphysematous change. A 4 mm nodule in the left upper lobe appears stable from the CT at chest on 04/03/2023 continue follow-up may be advisable. The ED team's note it seems the patient the NIH stroke scale was a 1. And they felt was a TIA. no IV thrombolyic since low NIH and the risk outweighed the benefit. Review of Systems The positive and negative as per HPI. Past Medical History Past Medical History: Atrial Fibrillation, Cancer, Heart Failure, COPD, CVA/TIA, Diabetes Mellitus, Deep Vein Thrombosis (DVT), Fibromyalgia, GERD/Reflux, Hyperlipidemia, Hypertension, Osteoarthritis (OA), Pneumonia, Sleep Apnea/CPA P/BIPAP, Vascular Disorder Additional Past Medical History / Comment(s): back pain , lung cancer-radiation opnly, HOME 02 2 LITERS N/C, BLOOD CLOT AFTER SX, CVA LT SIDE AFFECTED SINCE RESOLVED, HIATAL HERNIA. SHINGLES 30 YEARS AGO, DOES'NT USE CPAP MACHINE.in past for short period of time took oral meds for dm-then taken off meds-pt stated not considered diabetic now but occ will check bs., macular degeneration.past broken rt leg and lt wrist. Raynauds. Pt currently has 3 fractured ribs on the right that she has "had for years and will not heal". History of Any Multi-Drug Resistant Organisms: MRSA Date of last positivie culture/infection: 09/25/16 MDRO Source:: BRONCH WASH Past Surgical History: Cholecystectomy, Heart Catheterization With Stent, Orthopedic Surgery Additional Past Surgical History / Comment(s): rt leg repaired after break-has pins, lt wrist-plate and screws. lung bx, stents tung groins. Past Anesthesia/Blood Transfusion Reactions: Family History of Problems w/ Anesthesia Additional Past Anesthesia/Blood Transfusion Reaction / Comment(s): daughter has diff waking after aa Date of Last Stent Placement:: unk Type of Cardiac Device: Permanent Pacemaker Device Placement Date:: 09/25/20 Past Psychological History: Anxiety, Depression Smoking Status: Former smoker Past Alcohol Use History: None Reported Past Drug Use History: None Reported - Past Family History Father Family Medical History: Congestive Heart Failure (CHF), COPD Additional Family Medical History / Comment(s): emphysema Mother Family Medical History: Cancer Medications and Allergies Home Medications Medication Instructions Recorded Confirmed Type Apixaban [Eliquis] 2.5 mg PO BID tablet 10/02/16 06/27/23 Rx Fluticasone/Umeclidin/Vilanter 1 puff INHALATION RT-DAILY 04/19/20 06/27/23 History [Brinda Ellipta 100-62.5-25] Clopidogrel [Plavix] 75 mg PO DAILY #30 tab 08/10/20 06/27/23 Rx Mirtazapine [Remeron] 7.5 mg PO HS PRN 08/06/21 06/27/23 History Atorvastatin Calcium [Lipitor] 80 mg PO HS 05/13/22 06/27/23 History ALPRAZolam [Xanax] 0.25 mg PO DAILY PRN 12/01/22 06/27/23 History Albuterol Sulfate [Albuterol 1 - 2 puff PO RT-Q4H PRN 12/01/22 06/27/23 History Sulfate Hfa] Baclofen [Lioresal] 5 mg PO TID PRN 12/01/22 06/27/23 History Lidocaine 5% Patch [Lidoderm 5% 1 patch TOPICAL DAILY PRN 12/01/22 06/27/23 History Patch] Pantoprazole Sodium [Protonix] 20 mg PO DAILY 12/01/22 06/27/23 History amLODIPine [Norvasc] 5 mg PO DAILY #30 tab 12/02/22 06/27/23 Rx Ipratropium-Albuterol Nebulize 3 ml INHALATION RT-TID 06/27/23 06/27/23 History [Duoneb 0.5 mg-3 mg/3 ml Soln] Metoprolol Succinate (ER) [Toprol 50 mg PO BID 06/27/23 06/27/23 History Xl] Vit C/E/Zn/Coppr/Lutein/Zeaxan 1 cap PO BID 06/27/23 06/27/23 History [Preservision Areds 2 Softgel] busPIRone HCL 15 mg PO BID 06/27/23 06/27/23 History predniSONE 5 mg PO DAILY 06/27/23 06/27/23 History Allergies Allergy/AdvReac Type Severity Reaction Status Date / Time No Known Allergies Allergy Verified 06/27/23 18:55 Physical Examination - Vital Signs Vital Signs: Vital Signs Temp Pulse Pulse Pulse Resp BP BP 06/28/23 11:52 75 18 145/60 06/28/23 09:48 16 06/28/23 09:45 84 16 06/28/23 08:32 98.2 F 84 16 119/63 06/28/23 08:06 71 06/28/23 07:55 71 06/28/23 04:00 98.1 F 64 16 118/50 06/28/23 00:10 56 L 19 135/57 06/27/23 22:45 99 16 06/27/23 22:00 63 18 141/63 06/27/23 20:57 97.8 F 84 16 147/70 06/27/23 20:00 97.1 F L 70 16 118/69 06/27/23 19:00 80 20 142/72 06/27/23 18:45 98.0 F 60 16 159/76 06/27/23 18:33 98.0 F 66 17 146/64 06/27/23 18:25 98.0 F 61 16 147/73 06/27/23 18:03 63 17 156/89 06/27/23 17:48 97.9 F 66 17 170/98 06/27/23 17:30 98.3 F 83 16 155/73 Pulse Ox 06/28/23 11:52 99 06/28/23 09:48 06/28/23 09:45 06/28/23 08:32 99 06/28/23 08:06 06/28/23 07:55 06/28/23 04:00 99 06/28/23 00:10 97 06/27/23 22:45 95 06/27/23 22:00 97 06/27/23 20:57 95 06/27/23 20:00 96 06/27/23 19:00 96 06/27/23 18:45 96 06/27/23 18:33 95 06/27/23 18:25 98 06/27/23 18:03 96 06/27/23 17:48 99 06/27/23 17:30 96 Intake and Output 06/27/23 06/28/23 06/28/23 22:59 06:59 14:59 Intake Total 480 Balance 480 Intake: Oral 480 Other: # Voids 1 Weight 58.2 kg 58.2 kg GENERAL: The patient is lying in bed and is not in acute distress. NEUROLOGICAL: Higher mental function: The patient is awake, alert, oriented to self, place and time. Patient is following commands. No aphasia and no neglect. Cranial nerves: The pupils are round, equal and reactive to light and accommodation. Visual eason are full to confrontation throughout. Extraocular movement is intact no nystagmus is noted. Facial sensation is normal to touch throughout. The facial strength is right mild nasolabial flattening (stated new). Hearing is mildly decreased bilaterally to hand rub. Tongue is midline and moved [id number] without any difficulty. No dysarthria is noted. Shoulder shrug is normal bilaterally. Motor: The strength is left lower is 4-4+. Otheriwse 5 over 5 throughout. Normal tone and bulk. Cerebellum: Normal finger to nose bilaterally. Sensation: Sensation is normal to touch throughout. Reflexes (right/left): 2+ throughout. Plantars are downgoing bilaterally. Results - Laboratory Findings CBC and BMP: 06/28/23 12:16 06/28/23 12:16 Abnormal Lab Findings: Abnormal Labs 06/27/23 06/27/23 06/27/23 17:45 17:53 17:53 WBC 14.7 H Neutrophils # 10.2 H Sodium 136 L Potassium 5.7 H Carbon Dioxide BUN 26 H Glucose 131 H POC Glucose (mg/dL) 119 H AST 75 H ALT 46 H Ur Specific [place] Ur Leukocyte Esterase Urine WBC Ur Squamous Epith Cells Urine Bacteria Hyaline Casts Urine Mucus Urine Yeast (Budding) 06/27/23 06/27/23 06/27/23 21:25 21:46 22:46 WBC Neutrophils # Sodium 134 L Potassium Carbon Dioxide BUN 28 H Glucose 165 H POC Glucose (mg/dL) 128 H AST ALT Ur Specific [place] 1.037 H Ur Leukocyte Esterase Large H Urine WBC 23 H Ur Squamous Epith Cells 8 H Urine Bacteria Rare H Hyaline Casts 13 H Urine Mucus Rare H Urine Yeast (Budding) Few H 06/28/23 06/28/23 06/28/23 06:26 11:21 12:16 WBC Neutrophils # Sodium 135 L Potassium Carbon Dioxide 34 H BUN 24 H Glucose 115 H POC Glucose (mg/dL) 123 H 168 H AST ALT Ur Specific [place] Ur Leukocyte Esterase Urine WBC Ur Squamous Epith Cells Urine Bacteria Hyaline Casts Urine Mucus Urine Yeast (Budding) 06/28/23 13:27 WBC Neutrophils # Sodium Potassium Carbon Dioxide BUN Glucose POC Glucose (mg/dL) 168 H AST ALT Ur Specific [place] Ur Leukocyte Esterase Urine WBC Ur Squamous Epith Cells Urine Bacteria Hyaline Casts Urine Mucus Urine Yeast (Budding) Assessment and Plan Assessment: This is a 83-year-old woman who presented emergency department because of expressive aphasia as well as left lower extremity weakness. Per the ED team she had NIH of a 1 and they felt was a TIA. On examination she continues to have left lower extremity weakness as well as felt she had right lower nasolabial flattening and she stated that the the right facial weakness is new as well. Acute expressive aphasia that was transient with a left lower extremity weakness and right facial droop: Likely acute ischemic stroke Left ICA stenosis of about 60% on CTA Seems the patient has history of stroke/TIA and she had left-sided weakness in the past which resolved that's documented the in the medical record History of atrial fibrillation on eliquis History of congestiver heart fialure History of cervical cancer and lung cancer Diabetes mellitus History of coronary artery disease status post stent. Hypertension Hyperlipidemia Sleep apnea Plan: MRI the brain is ordered by the primary team and is pending and I changed to with and without to see if any enhancement especially with history of cancer. Patient is resumed on her home medication of eliquis 2.5mg bid and Plavix 75mg daily. Patient received ASA 324mg once in the ED. Patient does truly have a stroke on MRI and it's felt stroke or TIA then recommend either going up on Eliquis to 5mg bid or changing Plavix to Briinta 90mg bid. She is on Lipitor 80 mg daily at bedtime. Consulted vascular surgery for the left ICA stenosis I ordered 2-D echo. 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 Thank you for the consultation. The plan is discussed with patient and primary team. Dr. Olivares will resume neurology service tomorrow A.M. Time with Patient: Greater than 30
[2023-06-28 16:13] LABS: Glucose,Whole Blood 154 mg/dL (70-110)
[2023-06-28 20:36] LABS: Glucose,Whole Blood 187 mg/dL (70-110)
[2023-06-28] MEDS: ALPRAZolam 0.25 MG TAB PO PRN (21:00)
[2023-06-28 23:04] LABS: Chol/HDL Ratio 2.57 Ratio; LDL Cholesterol,Calculated 61.1 mg/dL (0.0-131.0)
[2023-06-29 05:56] LABS: Glucose,Whole Blood 198 mg/dL (70-110)
[2023-06-29 06:51] LABS: HGB 11.9 gm/dL (11.4-16.0); MCH 30.6 pg (25.0-35.0); MCHC 34.1 g/dL (31.0-37.0); MCV 89.7 fL (80.0-100.0); Mean Platelet Volume 8.1; Platelet Count 165 k/uL (150-450); RDW 13.5 % (11.5-15.5); WBC 9.2 k/uL (3.8-10.6)
--- NOTE | 2023-06-29 08:48 | US ---
EXAMINATION TYPE: US carotid duplex BILAT DATE OF EXAM: 06/29/2023 COMPARISON: CLINICAL INDICATION: Female, 83 years old with history of expressive aphasia, TIA; Hx TIA. HTN contr olled with meds. TECHNIQUE: Carotid duplex ultrasound examination. Indirect Doppler criteria was utilized. FINDINGS: EXAM MEASUREMENTS: RIGHT: Peak Systolic Velocity (PSV) cm/sec ----- Right CCA: 60.1 ----- Right ICA: 76.4 ----- Right ECA: 94.0 ICA/CCA ratio: 1.3 RIGHT: End Diastole cm/sec ----- Right CCA: 7.8 ----- Right ICA: 11.9 ----- Right ECA: 0.0 LEFT: Peak Systolic Velocity (PSV) cm/sec ----- Left CCA: 74.7 ----- Left ICA: 183.3 ----- Left ECA: 183.7 ICA/CCA ratio: 2.5 LEFT: End Diastole cm/sec ----- Left CCA: 11.0 ----- Left ICA: 30.0 ----- Left ECA: 33.2 VERTEBRALS (direction of flow): Right Vertebral: Antegrade Left Vertebral: Antegrade Rhythm: Normal CUST[employer]ER SERVICE [employer]IVER NOTES: Plaque visualized bilaterally. Elevated left ECA and left distal ICA velocity. W all thickening. IMPRESSION: No evidence for hemodynamically significant stenosis. Criteria for Assigning % of Stenosis / Diameter reduction (Estimation based on the indirect measurements of the internal carotid artery velocities (ICA PSV). 1. Normal (no stenosis)=ICA PSV < 125 cm/s: ratio < 2.0: ICA EDV<40 cm/s. 2. Less than 50% stenosis=ICA PSV < 125 cm/s: ratio < 2.0: ICA EDV<40 cm/s. 3. 50 to 69% stenosis=ICA PSV of 125 to 230 cm/s: ration 2.0 ? 4.0: ICA EDV 40-100 cm/s. 4. Greater than 70% stenosis to near occlusion= ICA PSV > 230 cm/s: ratio > 4.0: ICA EDV > 100 cm/s. 5. Near occlusion= ICA PSV velocities may be low or undetectable: variable ratio and ICA EDV. 6. Total occlusion=unable to detect flow.
--- NOTE | 2023-06-29 09:49 | P.GSCN ---
History of Present Illness Consult date: 06/29/23 Reason for Consult: Carotid stenosis, expressive aphasia Requesting physician: Drew Pino History of present illness: This is a pleasant 83-year-old female who presented to the emergency department on Thursday evening with complaints of expressive aphasia. She has a past medical history including CVA/TIA, coronary artery disease status post stenting, atrial fibrillation status post pacemaker on Eliquis, peripheral arterial disease status post lower extremity revascularization, COPD, lung cancer, macular degeneration, former smoker, diabetes mellitus, deep vein thrombosis, GERD, hyperlipidemia, and hypertension. She was celebrating her birthday on Thursday with her family and started not making sense when she was talking. She could not get her words out and she forgot her daughter and grandchildren's name s. Symptoms lasted maybe 30 to 45 minutes. She denied any other focal deficits at that time. I spoke with her daughter Melva on the phone today who states that this has happened a few times in the recent past where the patient speaks but nothing makes much sense. Her daughter states that her mother knows that this is happening but cannot articulate her words and will be forgetful family names at that time as well. She denied that her mother exhibited any extremity weakness during this last episode and denied noticing that she had any facial droop. She currently denies any focal deficits since being admitted to the hospital. States that she tried getting up the day of admission but she was a little weak and dizzy. She states that she actually had generalized weakness the day of her constitution party and felt kind of sweaty. She denies any shortness of breath, chest pain, nausea or vomiting. Currently getting a breathing treatment. Workup Chest x-ray: No acute cardiopulmonary disease with no interval change Brain CT without contrast: No CT evidence of acute intracranial abnormality. Atrophy and chronic microvascular ischemic white matter changes. Paranasal sinus disease. CT angio head and neck: Neck: No occlusion, dissection or pseudoaneurysm detected in the carotid or vertebral arteries in the neck. Arthrosclerotic disease is present, with calcific plaques in the proximal left ICA causing up to 60% diameter stenosis. Mild soft plaque in the proximal right ICA with suggestion of mild broad-based ulceration; no significant stenosis. Biapical moderate to severe emphysematous changes. A 4 mm nodule in the left upper lobe appears stable from CT chest 04/03/2023: Continue follow-up may be advisable. CTA head: No intracranial large vessel occlusion, significant stenosis or sizable aneurysm detected in the limits of CTA. Other chronic and likely incidental findings as above. Review of Systems A 14 point review systems was completed all pertinent positives and negatives as stated in the HPI. Past Medical History Past Medical History: Atrial Fibrillation, Cancer, Heart Failure, COPD, CVA/TIA, Diabetes Mellitus, Deep Vein Thrombosis (DVT), Fibromyalgia, GERD/Reflux, Hyperlipidemia, Hypertension, Osteoarthritis (OA), Pneumonia, Sleep Apnea/CPAP/BIPAP, Vascular Disorder Additional Past Medical History / Comment(s): back pain , lung cancer-radiation opnly, HOME 02 2 LITERS N/C, BLOOD CLOT AFTER SX, CVA LT SIDE AFFECTED SINCE RESOLVED, HIATAL HERNIA. SHINGLES 30 YEARS AGO, DOES'NT USE CPAP MACHINE.in past for short period of time took oral meds for dm-then taken off meds-pt stated not considered diabetic now but occ will check bs., macular degeneration.past broken rt leg and lt wrist. Raynauds. Pt currently has 3 fractured ribs on the right that she has "had for years and will not heal". History of Any Multi-Drug Resistant Organisms: MRSA Year Discovered:: 09/25/16 MDRO Source:: BRONCH WASH Past Surgical History: Cholecystectomy, Heart Catheterization With Stent, Orthopedic Surgery Additional Past Surgical History / Comment(s): rt leg repaired after break-has pins, lt wrist-plate and screws. lung bx, stents tung groins. Past Anesthesia/Blood Transfusion Reactions: Family History of Problems w/ Anesthesia Additional Past Anesthesia/Blood Transfusion Reaction / Comm: daughter has diff waking after aa Date of Last Stent Placement:: unk Type of Cardiac Device: Permanent Pacemaker Device Placement Date:: 09/25/20 Past Psychological History: Anxiety, Depression Smoking Status: Former smoker Past Alcohol Use History: None Reported Past Drug Use History: None Reported - Past Family History Father Family Medical History: Congestive Heart Failure (CHF), COPD Additional Family Medical History / Comment(s): emphysema Mother Family Medical History: Cancer Medications and Allergies Home Medications Medication Instructions Recorded Confirmed Type Apixaban [Eliquis] 2.5 mg PO BID tablet 10/02/16 06/27/23 Rx Fluticasone/Umeclidin/Vilanter 1 puff INHALATION RT-DAILY 04/19/20 06/27/23 History [Trelegy Ellipta 100-62.5-25] Clopidogrel [Plavix] 75 mg PO DAILY #30 tab 08/10/20 06/27/23 Rx Mirtazapine [Remeron] 7.5 mg PO HS PRN 08/06/21 06/27/23 History Atorvastatin Calcium [Lipitor] 80 mg PO HS 05/13/22 06/27/23 History ALPRAZolam [Xanax] 0.25 mg PO DAILY PRN 12/01/22 06/27/23 History Albuterol Sulfate [Albuterol 1 - 2 puff PO RT-Q4H PRN 12/01/22 06/27/23 History Sulfate Hfa] Baclofen [Lioresal] 5 mg PO TID PRN 12/01/22 06/27/23 History Lidocaine 5% Patch [Lidoderm 5% 1 patch TOPICAL DAILY PRN 12/01/22 06/27/23 History Patch] Pantoprazole Sodium [Protonix] 20 mg PO DAILY 12/01/22 06/27/23 History amLODIPine [Norvasc] 5 mg PO DAILY #30 tab 12/02/22 06/27/23 Rx Ipratropium-Albuterol Nebulize 3 ml INHALATION RT-TID 06/27/23 06/27/23 History [Duoneb 0.5 mg-3 mg/3 ml Soln] Metoprolol Succinate (ER) [Toprol 50 mg PO BID 06/27/23 06/27/23 History Xl] Vit C/E/Zn/Coppr/Lutein/Zeaxan 1 cap PO BID 06/27/23 06/27/23 History [Preservision Areds 2 Softgel] busPIRone HCL 15 mg PO BID 06/27/23 06/27/23 History predniSONE 5 mg PO DAILY 06/27/23 06/27/23 History Allergies Allergy/AdvReac Type Severity Reaction Status Date / Time No Known Allergies Allergy Verified 06/27/23 18:55 Surgical - Exam Vital Signs Temp Pulse Resp BP Pulse Ox 98.3 F 83 16 155/73 96 06/27/23 17:30 06/27/23 17:30 06/27/23 17:30 06/27/23 17:30 06/27/23 17:30 General appearance: The patient is alert, oriented, appears in no acute distress. HET: Head is normocephalic and atraumatic. Pupils are equal and reactive. Neck: Supple. No audible bruit. Heart: Regular. Lungs: Equal expansion, normal respiratory effort. Abdomen: Soft, nontender, nondistended. Extremities: Normal skin color and turgor. Palpable bilateral DP pulses. Neurological: Patient is alert and oriented x 3. She is speech is fluent, she answers questions appropriately and follows commands. Does appear to have slight right lip droop, bilateral upper extremity strength and tone equal, left lower extremity seems somewhat weaker than the right 4/5. Results - Labs 06/29/23 06:37 06/28/23 12:16 Abnormal Lab Results - Last 24 Hours (Table) 06/28/23 06/28/23 06/28/23 Range/Units 11:21 12:16 13:27 Sodium 135 L (137-145) mmol/L Carbon Dioxide 34 H (22-30) mmol/L BUN 24 H (7-17) mg/dL Glucose 115 H (74-99) mg/dL POC Glucose (mg/dL) 168 H 168 H (70-110) mg/dL C-Reactive Protein (<1.0) mg/dL 06/28/23 06/28/23 06/29/23 Range/Units 16:12 20:35 05:53 Sodium (137-145) mmol/L Carbon Dioxide (22-30) mmol/L BUN (7-17) mg/dL Glucose (74-99) mg/dL POC Glucose (mg/dL) 154 H 187 H 198 H (70-110) mg/dL C-Reactive Protein (<1.0) mg/dL 06/29/23 Range/Units 06:37 Sodium (137-145) mmol/L Carbon Dioxide (22-30) mmol/L BUN (7-17) mg/dL Glucose (74-99) mg/dL POC Glucose (mg/dL) (70-110) mg/dL C-Reactive Protein 1.1 H (<1.0) mg/dL Diabetes panel 06/28/23 Range/Units 12:16 Sodium 135 L (137-145) mmol/L Potassium 3.9 (3.5-5.1) mmol/L Chloride 99 (98-107) mmol/L Carbon Dioxide 34 H (22-30) mmol/L BUN 24 H (7-17) mg/dL Creatinine 0.69 (0.52-1.04) mg/dL Glucose 115 H (74-99) mg/dL Calcium 9.3 (8.4-10.2) mg/dL AST 35 (14-36) U/L ALT 33 (4-34) U/L Alkaline Phosphatase 65 (38-126) U/L Total Protein 6.3 (6.3-8.2) g/dL Albumin 3.8 (3.5-5.0) g/dL Triglycerides 147.00 (0.00-149.00) mg/dL HDL Cholesterol 57.50 (40.00-60.00) mg/dL Calcium panel 06/28/23 Range/Units 12:16 Calcium 9.3 (8.4-10.2) mg/dL Albumin 3.8 (3.5-5.0) g/dL Pituitary panel 06/28/23 Range/Units 12:16 Sodium 135 L (137-145) mmol/L Potassium 3.9 (3.5-5.1) mmol/L Chloride 99 (98-107) mmol/L Carbon Dioxide 34 H (22-30) mmol/L BUN 24 H (7-17) mg/dL Creatinine 0.69 (0.52-1.04) mg/dL Glucose 115 H (74-99) mg/dL Calcium 9.3 (8.4-10.2) mg/dL Adrenal panel 06/28/23 Range/Units 12:16 Sodium 135 L (137-145) mmol/L Potassium 3.9 (3.5-5.1) mmol/L Chloride 99 (98-107) mmol/L Carbon Dioxide 34 H (22-30) mmol/L BUN 24 H (7-17) mg/dL Creatinine 0.69 (0.52-1.04) mg/dL Glucose 115 H (74-99) mg/dL Calcium 9.3 (8.4-10.2) mg/dL Total Bilirubin 0.7 (0.2-1.3) mg/dL AST 35 (14-36) U/L ALT 33 (4-34) U/L Alkaline Phosphatase 65 (38-126) U/L Total Protein 6.3 (6.3-8.2) g/dL Albumin 3.8 (3.5-5.0) g/dL - Imaging Comments: Chest x-ray: No acute cardiopulmonary disease with no interval change Brain CT without contrast: No CT evidence of acute intracranial abnormality. Atrophy and chronic microvascular ischemic white matter changes. Paranasal sinus disease. CT angio head and neck: Neck: No occlusion, dissection or pseudoaneurysm detected in the carotid or vertebral arteries in the neck. Arthrosclerotic disease is present, with calcific plaques in the proximal left ICA causing up to 60% diameter stenosis. Mild soft plaque in the proximal right ICA with suggestion of mild broad-based ulceration; no significant stenosis. Biapical moderate to severe emphysematous changes. A 4 mm nodule in the left upper lobe appears stable from CT chest 04/03/2023: Continue follow-up may be advisable. CTA head: No intracranial large vessel occlusion, significant stenosis or sizable aneurysm detected in the limits of CTA. Other chronic and likely incidental findings as above. Carotid duplex: No evidence for hemodynamically significant stenosis. Right ICA PSV looking at the wrong 76.4, ICA/CCA ratio 1.3. Left ICA PSV 183.3, ICA/CCA ratio 2.5 Assessment and Plan Assessment: 1. Expressive aphasia 2. Left ICA stenosis, no dynamically significant stenosis. Per carotid duplex peak systolic velocity left ICA is actually about 50% or less. 3. History of previous CVA/TIA 4. Atrial fibrillation on Eliquis and status post pacemaker 5. Carotid artery disease status post cardiac stenting 6. COPD 7. Lung cancer status post radiation 8. Hypertension 9. Hyperlipidemia 10. Former smoker Plan: 1. Continue symptomatic and supportive care 2. Recommend consultation for physical therapy 3. Continue Plavix, Eliquis, statin 4. MRI was ordered however patient has pacemaker and unable to undergo MRI. Await further recommendations from neurology 5. No indication for any vascular surgical intervention for carotid stenosis at this time. Recommend patient follow-up for outpatient surveillance. Thank you for this consultation, we will continue to follow. The impression and plan of care has been dictated as directed. I performed a history and examination of this patient, discussed the same with the dictator. I agree with the dictator's note ,documented as a scribe. Any additional findings or plans will be noted.
[2023-06-29 11:40] LABS: Glucose,Whole Blood 205 mg/dL (70-110)
--- NOTE | 2023-06-29 12:28 | P.PN ---
Subjective Progress Note Date: 06/29/23 * 83-year-old lady with past medical history significant for atrial fibrillation, history of congestive heart failure, coronary artery disease, peripheral arterial disease COPD, diabetes mellitus, previous history of fibromyalgia, CVA presents to the emergency department with complains of sudden onset of word-finding difficulty. Patient was active burden with sudden onset she started having difficulty finding words. This was approximately 45 minutes prior to presentation to ED patient has also been c omplaining of intermittent headache. Patient states she with Eliquis which she takes for history of atrial fibrillation. Code stroke was activated at the time of presentation in ED.. * Workup initiated in ER included EKG which showed sinus rhythm no significant ST segment changes serum chemistry obtained showed sodium of 136 potassium 5.7 BUN 26 creatinine 0.79, WBC 14.7 hemoglobin 13.4 hematocrit 41 platelets 230 * CT head was obtained which was negative for acute intracranial process, CT angio head and neck was negative for large vessel occlusion. * Patient to be admitted to medical floor for treatment of expressive aphasia rule out CVA * 06/29/2023: Patient seen and evaluated at bedside, patient unable to get MRI secondary to presence of pacemaker. We will repeat CT head since it has been 48 hours since first scan. Carotid Doppler negative for hemodynamically significant stenosis. Seen by vascular surgery recommended medical management. Continue current management including Eliquis, Lipitor, Plavix. REVIEW OF SYSTEMS: Dysarthria, word finding difficulty resolved CONSTITUTIONAL: No fever, no malaise, no fatigue. HEENT: No recent visual problems or hearing problems. Denied any sore throat. CARDIOVASCULAR: No chest pain, orthopnea, PND, no palpitations, no syncope. PULMONARY: No shortness of breath, no cough, no hemoptysis. GASTROINTESTINAL: No diarrhea, no nausea, no vomiting, no abdominal pain. NEUROLOGICAL: Dysarthria, word finding difficulty resolved HEMATOLOGICAL: Denies any bleeding or petechiae. GENITOURINARY: Denies any burning micturition, frequency, or urgency. MUSCULOSKELETAL/RHEUMATOLOGICAL: Denies any joint pain, swelling, or any muscle pain. ENDOCRINE: Denies any polyuria or polydipsia. PHYSICAL EXAMINATION: GENERAL: The patient is alert and oriented x3, not in any acute distress. Well developed, well nourished. HEENT: Pupils are round and equally reacting to light. EOMI. CARDIOVASCULAR: S1 and S2 present. No murmurs, rubs, or gallops. PULMONARY: Chest is clear to auscultation, no wheezing or crackles. ABDOMEN: Soft, nontender, nondistended, normoactive bowel sounds. No palpable o rganomegaly. MUSCULOSKELETAL: No joint swelling or deformity. EXTREMITIES: No cyanosis, clubbing, or pedal edema. NEUROLOGICAL: Gross neurological examination did not reveal any focal deficits. Motor strength is equal and symmetrical bilateral upper and lower extremities cranial nerves II to XII intact SKIN: No rashes. Objective - Vital Signs Vital signs: Vital Signs Temp 97.8 F 06/29/23 03:20 Pulse 89 06/29/23 10:07 Resp 20 06/29/23 10:07 BP 137/66 06/29/23 10:07 Pulse Ox 91 L 06/29/23 10:07 FiO2 Intake & Output 06/28/23 06/29/23 06/29/23 18:59 06:59 18:59 Intake Total 720 550 250 Output Total 150 1000 Balance 720 400 -750 Weight 58.2 kg Intake: IV 10 10 Invasive Line 1 10 10 Oral 720 540 240 Output: Urine 150 1000 Stool 0 0 Urine/Stool Mix 0 Other: Voiding Method External Catheter External Catheter # Voids 1 1 # Bowel Movements 0 - Labs CBC & Chem 7: 06/29/23 06:37 06/28/23 12:16 Labs: Abnormal Lab Results - Last 24 Hours (Table) 06/28/23 06/28/23 06/28/23 Range/Units 12:16 12:16 13:27 Sodium 135 L (137-145) mmol/L Carbon Dioxide 34 H (22-30) mmol/L BUN 24 H (7-17) mg/dL Glucose 115 H (74-99) mg/dL POC Glucose (mg/dL) 168 H (70-110) mg/dL Hemoglobin A1c 7.3 H (<=6.0) % C-Reactive Protein (<1.0) mg/dL 06/28/23 06/28/23 06/29/23 Range/Units 16:12 20:35 05:53 Sodium (137-145) mmol/L Carbon Dioxide (22-30) mmol/L BUN (7-17) mg/dL Glucose (74-99) mg/dL POC Glucose (mg/dL) 154 H 187 H 198 H (70-110) mg/dL Hemoglobin A1c (<=6.0) % C-Reactive Protein (<1.0) mg/dL 06/29/23 06/29/23 Range/Units 06:37 11:38 Sodium (137-145) mmol/L Carbon Dioxide (22-30) mmol/L BUN (7-17) mg/dL Glucose (74-99) mg/dL POC Glucose (mg/dL) 205 H (70-110) mg/dL Hemoglobin A1c (<=6.0) % C-Reactive Protein 1.1 H (<1.0) mg/dL Assessment and Plan Assessment: Assessment and plan * expressive aphasia rule out CVA * Acute sinusitis * history of diabetes mellitus type 2 * history of atrial fibrillation that is post pacemaker in place * history of COPD * Left internal carotid artery stenosis not hemodynamically significant * in regards to episode of expressive aphasia, CT head, CT angio head and neck reviewed. MRI brain ordered however could not be done secondary to pacemaker. Carotid ultrasound completed no hemodynamically significant stenosis noted * neurology consulted, continue neuro checks, continue current management including Plavix, Eliquis, Lipitor * In regards to acute sinusitis patient started on Augmentin day 2 of 5 * in regards to history of diabetes Accu-Cheks a.c. HS continue correctional insulin * in regards to history of AFib continue patient on Eliquis continue rate control medications * regards to history of COPD continue patient on bronchodilator protocol * Will need physical therapy occupational therapy evaluation, to determine discharge disposition * Barrier to discharge will be clearance from neurology as well as discharge to subacute rehab * code status is full code Time with Patient: Greater than 30
--- NOTE | 2023-06-29 13:31 | CT ---
EXAMINATION TYPE: CT brain wo con DATE OF EXAM: 06/29/2023 COMPARISON: 06/27/23 HISTORY: f/u CVA CT DLP: 1085.[address] of the brain was performed. The ventricles, basal cisterns and sulci overlying the cerebral convexities demonstrate mild enlargem ent. There is no evidence for intracranial hemorrhage or sulcal effacement. There is decreased attenuation about the periventricular white matter and deep white matter of both c erebral hemispheres, compatible with chronic small vessel ischemia. Differential diagnosis does inclu de demyelination. No mass effects are seen.No midline shift. Osseous calvarium is intact. If symptoms persist consider MRI. IMPRESSION: 1. Age related atrophic and chronic small vessel ischemic change without acute intracranial process s een at this time.
[2023-06-29 13:41] VITALS: BMI 23.2
[2023-06-29 16:52] LABS: Glucose,Whole Blood 258 mg/dL (70-110)
--- NOTE | 2023-06-29 19:37 | P.PN ---
Subjective Progress Note Date: 06/29/23 Patient was initially seen by Dr. Drew Pino. Please refer to his note for details. Patient is a 83-year-old female with expressive aphasia and left-sided weakness. Patient has history of atrial fibrillation on Eliquis and also on Plavix. Patient also has history of cancer. Patient cannot have MRI of the brain because of pacemaker. Patient had repeat CT head performed today. Patient is laying comfortable in the bed. She is slightly restless, likely due to difficulty breathing from her COPD. Patient states that she came to the hospital because of expressive aphasia. She tried to talk, and different words would come out. No one could understand what she was talking although she knew what she wanted to say. She could not name her grandchildren. She was all mixed up. She could not speak complete sentences. This made her frustrated. She also noticed some generalized weakness, without any focal symptoms. She does not know if it was new or from her previous CVA 3 years ago. The symptoms lasted for about 30 to 40 minutes. She had previous history of similar symptoms of expressive aphasia about 3 years ago, again lasted for 30 to 40 minutes. She also had a stroke in 1998 when she was in [place]. Patient states that she is fully compliant with the medication, does not miss the dose of her Eliquis or Plavix. Some of the workup during his hospital visit consisted of: Initial POC glucose is 119, sodium is 136, AST is 75 ALT of 46, calcium is 9.4, magnesium is 1.7. Her drug screen is nondetected that. The serum alcohol is 17 Urinalysis seems possible stress for underlying urinary tract infection. The leukocyte esterase was large, urine white blood cell 23, urine bacteria was rare. CT of the head is reported as no evidence for acute intracranial abnormality. Atrophy and chronic microvascular ischemic white matter changes. Paranasal sinus disease. I personally reviewed the CT and I feel there is questionable hypodensity over the left frontal parietal region over the coronal as well as old over the right thalamus temporal region I could not evaluate the axial since was a fair hard to get a good image on the axial. There is no bleed. CT angiography of the head is reported as no intracranial large vessel occlusion, significant stenosis or sizable aneurysm detected in the limits of CTA. Other chronic and likely incidental finding as above. CT angiography of the neck is reported as no occlusion, dissection or sooner aneurysm detected in the carotid or vertebral artery in the neck. At this carotid disease is present with calcific plaque at the proximal left ICA causing up to 60% diameter stenosis. Mild soft plaque in the proximal right ICA suggestive of mild broadbase ulceration, no significant stenosis. Biapical moderate to severe emphysematous change. A 4 mm nodule in the left upper lobe appears stable from the CT at chest on 04/03/2023 continue follow-up may be advisable. The ED team's note it seems the patient the NIH stroke scale was a 1. And they felt was a TIA. no IV thrombolyic since low NIH and the risk outweighed the benefit. Objective - Vital Signs Vital signs: Vital Signs Temp 98.1 F 06/29/23 17:06 Pulse 80 06/29/23 15:24 Resp 16 06/29/23 17:06 BP 152/65 06/29/23 17:06 Pulse Ox 98 06/29/23 17:06 FiO2 Intake & Output 06/29/23 06/29/23 06/30/23 06:59 18:59 06:59 Intake Total 550 500 Output Total 150 1950 Balance 400 -1450 Weight 55.701 kg Intake: IV 10 20 Invasive Line 1 10 20 Oral 540 480 Output: Urine 150 1950 Stool 0 0 Urine/Stool Mix 0 Other: Voiding Method External Catheter External Catheter # Voids 1 # Bowel Movements 0 - Exam Patient is an elderly female, very pleasant, appears to be in slight distress from breathing difficulty. She has COPD and asthma. Speech and language functions are normal. Patient can name and repeat. Sometimes word finding difficulty. Her cranial nerves are normal. Visual eason are full. She has mild right facial asymmetry. On muscle strength testing there is no pronator drift and the strength is normal in arms and legs except left hip flexion which is minimally weak as compared to the right. Sensory to touch is equal. - Labs CBC & Chem 7: 06/29/23 06:37 06/28/23 12:16 Labs: Abnormal Lab Results - Last 24 Hours (Table) 06/28/23 06/28/23 06/29/23 Range/Units 12:16 20:35 05:53 POC Glucose (mg/dL) 187 H 198 H (70-110) mg/dL Hemoglobin A1c 7.3 H (<=6.0) % C-Reactive Protein (<1.0) mg/dL 06/29/23 06/29/23 06/29/23 Range/Units 06:37 11:38 16:50 POC Glucose (mg/dL) 205 H 258 H (70-110) mg/dL Hemoglobin A1c (<=6.0) % C-Reactive Protein 1.1 H (<1.0) mg/dL Assessment and Plan Assessment: This is a 83-year-old woman who presented emergency department because of expressive aphasia as well as left lower extremity weakness. Per the ED team she had NIH of a 1 and they felt was a TIA. On examination she continues to have left lower extremity weakness as well as felt she had right lower nasolabial flattening and she stated that the the right facial weakness is new as well. Patient is not sure if the left leg weakness is new or from her previous stroke. Acute expressive aphasia that was transient with a left lower extremity weakness and right facial droop: Likely acute ischemic stroke. Repeat CT head negative for any acute stroke. Left ICA stenosis of about 60% on CTA, but carotid Doppler showed no significant stenosis. Discordant findings. History of similar TIA of expressive aphasia of similar duration about 3 years ago. History of CVA affected left side, resolved in 2-1/2 months in 1998. History of atrial fibrillation on eliquis History of congestiver heart fialure History of cervical cancer and lung cancer Diabetes mellitus History of coronary artery disease status post stent. Hypertension Hyperlipidemia Sleep apnea Pacemaker Plan: Patient cannot have MRI of the brain because of presence of pacemaker. Repeat CT head performed today showed small vessel ischemic disease with no acute ischemic stroke. I personally reviewed CT head, agree with the findings. Patient is resumed on her home medication of eliquis 2.5mg bid and Plavix 75mg daily. Patient received ASA 324mg once in the ED. I would avoid DAPT along with Eliquis. Await 2D echo to evaluate for embolic source. If any obvious etiology found, then may increase dose of Eliquis to 5mg bid or changing Plavix to Briinta 90mg bid. She is on Lipitor 80 mg daily at bedtime. Vascular surgery input appreciated. Patient underwent carotid Doppler, which revealed no evidence of hemodynamically significant stenosis. Antegrade flow in both vertebral arteries. Vascular surgery recommending medical management and surveillance ultrasound outpatient. Await 2-D echo. Completed, results pending. Lipid panel with cholesterol 148, LDL 61, HDL 57, triglycerides 147. Continue Lipitor 80 mg daily. Hemoglobin A1c 7.3. Recommend optimize control of diabetes to target A1c <7.0. However avoid hypoglycemia. We'll defer the rest of the medical management to the primary and other specialists Continue neuro checks Cardiac monitoring PT OT and DIGITAL DESIGNER are consulted Will defer the rest of the medical management to primary team For DVT prophylaxis the patient is on Eliquis.
[2023-06-29 19:41] LABS: Glucose,Whole Blood 189 mg/dL (70-110)
[2023-06-30 03:53] LABS: Glucose,Whole Blood 250 mg/dL (70-110)
[2023-06-30 05:50] LABS: Glucose,Whole Blood 179 mg/dL (70-110)
--- NOTE | 2023-06-30 07:28 | CA ---
Transthoracic Echo Report Name: Jenni Hercules Age: 83 Gender: F : 1940 Exam Date: 06/29/2023 14:35 Exam Location: [facility] Ht (in): 64 Wt (lb): 128 Ordering Physician: Drew Pino MD Attending/Referring Phys: Continuous Drier Operator Regina Kitchen RDCS Procedure CPT: Indications: stroke Cardiac Hx: Pacemaker Technical Quality: Fair Contrast 1: Agitated Saline Total Dose (mL): 9 Contrast 2: Total Dose (mL): MEASUREMENTS (Male / Female) Normal Values 2D ECHO LV Diastolic Diameter PLAX 4.3 cm 4.2 - 5.9 / 3.9 - 5.3 cm LV Systolic Diameter PLAX 2.7 cm IVS Diastolic Thickness 0.9 cm 0.6 - 1.0 / 0.6 - 0.9 cm LVPW Diastolic Thickness 1.0 cm 0.6 - 1.0 / 0.6 - 0.9 cm LV Relative Wall Thickness 0.4 RV Internal Dim ED PLAX 3.7 cm LA Systolic Diameter LX 3.5 cm 3.0 - 4.0 / 2.7 - 3.8 cm LA Volume 26.3 cm??? 18 - 58 / 22 - 52 cm??? LA Volume Index 16.2 cm???/m??? 16 - 28 cm???/m??? M-MODE Aortic Root Diameter MM 3.2 cm AV Cusp Separation MM 2.1 cm DOPPLER AV Peak Velocity 108.5 cm/s AV Peak Gradient 4.7 mmHg MV Area PHT 1.9 cm??? Mitral E Point Velocity 58.1 cm/s Mitral A Point Velocity 106.3 cm/s Mitral E to A Ratio 0.5 MV Deceleration Time 392.8 ms TR Peak Velocity 259.2 cm/s TR Peak Gradient 26.9 mmHg Right Ventricular Systolic Press 30.2 mmHg FINDINGS Left Ventricle Left ventricular ejection fraction is estimated at 55-60 %. Left ventricular cavity size normal. Left ventricular wall thickness normal. Right Ventricle Mild right ventricular dilatation. Right ventricular systolic pressure within normal limits. Right Atrium Normal right atrial size. Negative agitated saline bubble study for right to left shunt. Left Atrium Normal left atrial size. Mitral Valve Structurally normal mitral valve. No mitral stenosis or prolapse.trace to mild mitral regurgitation. Aortic Valve Trileaflet aortic valve. No aortic valve stenosis or regurgitation. Tricuspid Valve Structurally normal tricuspid valve. Mild tricuspid regurgitation. Pulmonic Valve Pulmonic valve not well visualized. Pericardium No pericardial effusion. Aorta Normal size aortic root and proximal ascending aorta. CONCLUSIONS 1. Normal left ventricular size and systolic function 2. Trace to mild mitral with mild tricuspid regurgitation 3. No evidence of shunting by contrast bubble study Previewed by: Dr. Frederick Francois MD (Electronically Signed) Final Date: 30 June 2023 07:28
[2023-06-30 09:43] LABS: HCT 33.3 % (34.0-46.0); HGB 11.1 gm/dL (11.4-16.0); MCH 30.7 pg (25.0-35.0); MCHC 33.4 g/dL (31.0-37.0); MCV 92.1 fL (80.0-100.0); Mean Platelet Volume 8.1; Platelet Count 186 k/uL (150-450); RBC 3.62 m/uL (3.80-5.40); RDW 13.5 % (11.5-15.5); WBC 7.7 k/uL (3.8-10.6)
[2023-06-30 10:06] VITALS: RESP 16; TEMP 97.8
[2023-06-30 10:10] LABS: African American GFR (CKD) >90 (>60 ml/min/1.73 sqM); Anion Gap 6 mmol/L; Blood Urea Nitrogen 22 mg/dL (7-17); Calcium 9.1 mg/dL (8.4-10.2); Carbon Dioxide 30 mmol/L (22-30); Chloride 104 mmol/L (98-107); Glucose 140 mg/dL (74-99); Non-African American GFR(CKD) 82 (>60 ml/min/1.73 sqM); Potassium 4.2 mmol/L (3.5-5.1); Sodium 140 mmol/L (137-145)
--- NOTE | 2023-06-30 10:16 | P.PN ---
Subjective Progress Note Date: 06/30/23 Principal diagnosis: Transient expressive aphasia Patient is seen and examined today as a follow-up for transient expressive aphasia. She underwent a repeat brain CT yesterday as she cannot undergo MRI due to pacemaker. Brain CT reported age-related atrophic and chronic small vessel ischemic changes without acute intracranial process seen at this time. She states yesterday she felt when she was being evaluated by one of the therapist that she had some mixing up of her words when speaking. She denies any other focal deficits. She states that she will likely go to rehab facility. Echocardiogram reports normal left ventricular size and systolic function. Trace to mild mitral with mild tricuspid regurgitation, no evidence of shunting by contrast bubble study. Objective - Vital Signs Vital signs: Vital Signs Temp 97.6 F 06/30/23 04:15 Pulse 82 06/30/23 04:15 Resp 18 06/30/23 04:15 BP 163/74 06/30/23 04:15 Pulse Ox 100 06/30/23 04:15 FiO2 Intake & Output 06/29/23 06/30/23 06/30/23 18:59 06:59 18:59 Intake Total 500 10 Output Total 1950 600 Balance -1450 -590 Weight 55.701 kg Intake: IV 20 10 Invasive Line 1 20 10 Oral 480 Output: Urine 1950 600 Stool 0 Other: Voiding Method External Catheter Toilet - Exam General appearance: The patient is alert, oriented, appears in no acute distress. HET: Head is normocephalic and atraumatic. Pupils are equal and reactive. Neck: Supple. No audible bruit. Heart: Regular. Lungs: Equal expansion, normal respiratory effort. Abdomen: Soft, nondistended. Extremities: Normal skin color and turgor. Neurological: Patient is alert and oriented x 3. She is speech is fluent, she answers questions appropriately and follows commands. Bilateral strength and tone normal. - Labs CBC & Chem 7: 06/30/23 08:39 06/28/23 12:16 Labs: Abnormal Lab Results - Last 24 Hours (Table) 06/28/23 06/29/23 06/29/23 Range/Units 12:16 11:38 16:50 POC Glucose (mg/dL) 205 H 258 H (70-110) mg/dL Hemoglobin A1c 7.3 H (<=6.0) % 06/29/23 06/30/2306/30/24 Range/Units 19:39 03:50 05:49 POC Glucose (mg/dL) 189 H 250 H 179 H (70-110) mg/dL Hemoglobin A1c (<=6.0) % Assessment and Plan Assessment: 1. Transient expressive aphasia 2. Left ICA stenosis, no dynamically significant stenosis. Per carotid duplex peak systolic velocity left ICA is actually about 50% or less. 3. History of previous CVA/TIA 4. Atrial fibrillation on Eliquis and status post pacemaker 5. Carotid artery disease status post cardiac stenting 6. COPD 7. Lung cancer status post radiation 8. Hypertension 9. Hyperlipidemia 10. Former smoker Plan: 1. Continue symptomatic and supportive care 2. Recommend consultation for physical therapy 3. Continue Plavix, Eliquis, statin 4. Await further recommendations from neurology 5. No indication for any vascular surgical intervention for carotid stenosis at this time. Recommend patient follow-up for outpatient surveillance. Thank you for this consultation, we will continue to follow. The impression and plan of care has been dictated as directed. I performed a history and examination of this patient, discussed the same with the dictator. I agree with the dictator's note ,documented as a scribe. Any additional findings or plans will be noted.
[2023-06-30 11:33] LABS: Glucose,Whole Blood 201 mg/dL (70-110)
[2023-06-30 12:35] VITALS: BP 147/70; PULSE 59
[2023-06-30 16:26] LABS: Glucose,Whole Blood 155 mg/dL (70-110)
--- NOTE | 2023-06-30 16:36 | P.PN ---
Subjective 83-year-old lady with past medical history significant for atrial fibrillation, history of congestive heart failure, coronary artery disease, peripheral arterial disease COPD, diabetes mellitus, previous history of fibromyalgia, CVA presents to the emergency department with complains of sudden onset of word- finding difficulty. Patient was active burden with sudden onset she started having difficulty finding words. This was approximately 45 minutes prior to presentation to ED patient has also been complaining of intermittent headache. Patient states she with Eliquis which she takes for history of atrial fibrillation. Code stroke was activated at the time of presentation in ED.. * Workup initiated in ER included EKG which showed sinus rhythm no significant ST segment changes serum chemistry obtained showed sodium of 136 potassium 5.7 BUN 26 creatinine 0.79, WBC 14.7 hemoglobin 13.4 hematocrit 41 platelets 230 * CT head was obtained which was negative for acute intracranial process, CT angio head and neck was negative for large vessel occlusion. * Patient to be admitted to medical floor for treatment of expressive aphasia rule out CVA * 06/29/2023: Patient seen and evaluated at bedside, patient unable to get MRI secondary to presence of pacemaker. We will repeat CT head since it has been 48 hours since first scan. Carotid Doppler negative for hemodynamically significant stenosis. Seen by vascular surgery recommended medical management. Continue current management including Eliquis, Lipitor, Plavix. * 06/30/2023 This is a pleasant 83 years old female diabetic and hard time finding words suspicious for expressive aphasia, with bilateral lower extremity weakness. Suspicious for TIA as patient symptoms today is improved. Her speech is almost back to normal and her both leg weakness looks chronic and symmetrical with no lateralization Neurologist evaluated the patient, echocardiogram showed preserved ejection fraction 55-60%. She tolerated the brain is negative Patient is already on liquids 2.5 mg of Plavix which is resumed. Neurologist following the patient Also patient on Augmentin for sinusitis. Patient told me today her sinusitis symptoms are improving. Possible discharge in 24-48 hours to subacute rehab for further strengthening exercises was cleared by neurology service Objective - Vital Signs Vital signs: Vital Signs Temp 97.8 F 06/30/23 09:35 Pulse 59 L 06/30/23 12:00 Resp 16 06/30/23 12:00 BP 147/70 06/30/23 12:00 Pulse Ox 96 06/30/23 12:00 FiO2 Intake & Output 06/29/23 06/30/23 06/30/23 18:59 06:59 18:59 Intake Total 500 10 480 Output Total 1950 600 0 Balance -1450 -590 480 Weight 55.701 kg Intake: IV 20 10 Invasive Line 1 20 10 Oral 480 480 Output: Urine 1950 600 Stool 0 0 Other: Voiding Method External Catheter Toilet Toilet - Exam GENERAL: The patient is alert and oriented x3, not in any acute distress. Well developed, well nourished. HEENT: Pupils are round and equally reacting to light. EOMI. No scleral icterus. No conjunctival pallor. Normocephalic, atraumatic. No pharyngeal erythema. No thyromegaly. CARDIOVASCULAR: S1 and S2 present. No murmurs, rubs, or gallops. PULMONARY: Chest is clear to auscultation, no wheezing , no crackles. ABDOMEN: Soft, nontender, nondistended, normoactive bowel sounds. No palpable organomegaly. MUSCULOSKELETAL: No joint swelling or deformity. EXTREMITIES: No cyanosis, clubbing, or pedal edema. -NEUROLOGICAL: Gross neurological examination did not reveal any focal deficits. Mild bilateral symmetrical leg weakness SKIN: No rashes. no petechiae. - Labs CBC & Chem 7: 06/30/23 08:39 06/30/23 08:39 Labs: Abnormal Lab Results - Last 24 Hours (Table) 06/29/23 06/29/23 06/30/23 Range/Units 16:50 19:39 03:50 RBC (3.80-5.40) m/uL Hgb (11.4-16.0) gm/dL Hct (34.0-46.0) % BUN (7-17) mg/dL Glucose (74-99) mg/dL POC Glucose (mg/dL) 258 H 189 H 250 H (70-110) mg/dL 06/30/23 06/30/23 06/30/23 Range/Units 05:49 08:39 08:39 RBC 3.62 L (3.80-5.40) m/uL Hgb 11.1 L (11.4-16.0) gm/dL Hct 33.3 L (34.0-46.0) % BUN 22 H (7-17) mg/dL Glucose 140 H (74-99) mg/dL POC Glucose (mg/dL) 179 H (70-110) mg/dL 06/30/23 06/30/23 Range/Units 11:32 16:24 RBC (3.80-5.40) m/uL Hgb (11.4-16.0) gm/dL Hct (34.0-46.0) % BUN (7-17) mg/dL Glucose (74-99) mg/dL POC Glucose (mg/dL) 201 H 155 H (70-110) mg/dL Assessment and Plan Assessment: TIA with expressive aphasia Bilateral lower extremity weakness, looks chronic Acute sinusitis Paroxysmal atrial fibrillation on blood thinner Eliquis Diabetes mellitus with hyperglycemia COPD no acute exacerbation History of lung cancer and cervical cancer * * Plan: Continue with aspirin and Plavix Continue with recommendation Continue with the neuro check Neurologist on the case Patient is on eliquis for DVT prophylaxi Possible discharge to subacute rehab and once cleared by neurology service Prognosis is guarded
== END 2023-06-30 18:02 | disposition home or self-care (01) | DRG 69 ==
LOC: EC 17:29 → 3SCARD 19:16 → OBSVTOIN 06-29 07:08
PROVIDERS: ADMIT Internal Medicine; ATTEND Internal Medicine
DX: G45.9 Transient cerebral ischemic attack, unspecified (principal); R47.01 Aphasia; N39.0 Urinary tract infection, site not specified; I50.32 Chronic diastolic (congestive) heart failure; E11.51 Type 2 diabetes mellitus with diabetic peripheral angiopathy without gangrene; I11.0 Hypertensive heart disease with heart failure; E11.65 Type 2 diabetes mellitus with hyperglycemia; J01.90 Acute sinusitis, unspecified; I48.0 Paroxysmal atrial fibrillation; E78.5 Hyperlipidemia, unspecified; J44.89 Other specified chronic obstructive pulmonary disease; F32.A Depression, unspecified; I65.22 Occlusion and stenosis of left carotid artery; R47.1 Dysarthria and anarthria; I73.00 Raynaud's syndrome without gangrene; I25.10 Atherosclerotic heart disease of native coronary artery without angina pectoris; F41.9 Anxiety disorder, unspecified; M79.7 Fibromyalgia; K21.9 Gastro-esophageal reflux disease without esophagitis; G47.30 Sleep apnea, unspecified; H35.30 Unspecified macular degeneration; M19.90 Unspecified osteoarthritis, unspecified site; Z99.81 Dependence on supplemental oxygen; Z79.01 Long term (current) use of anticoagulants; Z79.02 Long term (current) use of antithrombotics/antiplatelets; Z79.51 Long term (current) use of inhaled steroids; Z79.899 Other long term (current) drug therapy; Z86.73 Personal history of transient ischemic attack (TIA), and cerebral infarction without residual deficits; Z87.891 Personal history of nicotine dependence; Z86.718 Personal history of other venous thrombosis and embolism; Z95.5 Presence of coronary angioplasty implant and graft; Z85.41 Personal history of malignant neoplasm of cervix uteri; Z85.118 Personal history of other malignant neoplasm of bronchus and lung; Z92.3 Personal history of irradiation; Z86.14 Personal history of Methicillin resistant Staphylococcus aureus infection; Z86.19 Personal history of other infectious and parasitic diseases; Z95.0 Presence of cardiac pacemaker; K44.9 Diaphragmatic hernia without obstruction or gangrene
CPT/HCPCS: 36415; 70450; 70496; 70498; 71045; 80048; 80053; 80061; 80306; 80320; 81001; 82550; 83036; 83735; 84145; 84484; 85025; 85027; 85610; 85730; 86140; 93005; 93306; 93880; 94640; 94760; 96374; 99291

== ENCOUNTER → 2024-01-12 | Outpatient (CLI) | payer MEDICARE, OTHER ==
--- NOTE | 2024-02-02 13:40 | CT ---
Patient: Jenni Hercules J Ordering Physician: Unknown, Unknown ID: [id number] Phone, Pager: Phone: N/A Pager: N/A : [phone] Age/Gender: 83Y, F Primary Location: N/A Procedure: CT Chest w Contrast Oh dy Date: 01/12/2024 12:57:00 PM Accession #: EXAMINATION TYPE: CT chest w con DATE OF EXAM: 01/12/2024 COMPARISON: 04/03/2023 HISTORY: Lung cancer CT DLP: 86 mGycm, Automated exposure control for dose reduction was used. CONTRAST: Performed injected with 100 mL of Isovue 300. TECHNIQUE: Axial images were obtained at 5 mm thick sections. Reconstructed images are reviewed on [employer] computer in the coronal plane. FINDINGS: Portion of the thyroid visualized is normal. Emphysematous changes are through the bilateral lung eason. There is a 0.7 cm nodule posterior medial left lung, series 3 image 26. This appears to be a calcifie d granuloma is previously. There is an irregular 1.4 cm density right midlung. Series 3 image 30. This is larger than the 0.7 cm on comparison. There is a 1.5 cm irregular nodule lateral left mid lung, series 3 image 31, which is larger than the previous 0.7 cm. There is a 4.3 x 2.6 cm irregular infiltrate type appearance in the posterior lateral right lung. This is somewhat similar to comparison. No enlarged mediastinal or hilar adenopathy is evident. A few small shoddy lymph nodes are present. The ascending aorta diameter at the level of the main pulmonary artery is 3.3 cm. The main pulmonar y artery diameter at the bifurcation is 2.[address] sections are obtained through the upper abdomen. There is a 1.5 cm cyst in the posterior l ateral left upper kidney IMPRESSION: 1. Enlarging irregular bilateral nodules suspicious for neoplasm. Findings can be compatible with wo rsening lung cancer. 2. Increased density posterior lateral right lung appear somewhat similar to comparison. 3. No suspicious new nodules or infiltrates.
== END | disposition home or self-care (01) ==
LOC: RADCTMAIN 11:31
PROVIDERS: ATTEND Internal Medicine
DX: C34.90 Malignant neoplasm of unspecified part of unspecified bronchus or lung (principal); J98.4 Other disorders of lung
CPT/HCPCS: 71260; 36415; Q9967

== ENCOUNTER → 2024-02-05 | Outpatient (CLI) | payer MEDICARE, OTHER ==
--- NOTE | 2024-02-05 17:37 | PE ---
EXAMINATION TYPE: PET CT fusion skull to thigh DATE OF EXAM: 02/05/2024 CLINICAL INDICATION:Female, 83 years old with history of SOLITARY PULMONARY NODULE; history of report ed non-small cell lung cancer. TECHNIQUE: Following the intravenous administration of 12.33 mCi of F-18 FDG, whole body images are performed from the skull base to the midthigh. Images are reviewed on the computer in the coronal, axial, and sagittal planes. Reconstructed rotating images are created on independent workstation and reviewed on the computer. A non-contrast CT is performed in conjunction with the PET scan. Glucose level 141 mg/dL CT DLP: 245.12 mGycm, Automated exposure control for dose reduction was used. COMPARISON: CT 04/03/2023, 12/02/2022, 12/01/2022, 05/14/2022, PET/CT 12/27/2022, MRI: None FINDINGS: Mediastinal SUV mean is 2.4. Hepatic parenchyma SUV mean is 3.3. SKULL BASE AND NECK: No suspicious radiotracer activity. CHEST, MEDIASTINUM, AND HILAR REGION: Increased size of left lateral upper lobe 1.2 cm pulmonary nodule. Previously measured 0.6 cm on prio r PET/CT. Stable in size from most recent CT. Demonstrates a maximum SUV of 6.8, previously 0.4. Increased size of medial left upper lung 0.6 cm nodule abutting the major fissure. Previously measure d 0.4 cm on prior PET/CT. Stable in size from most recent CT. Demonstrate a maximum SUV of 9.1, previ ously 1.1. Increased size of right upper lobe 1.1 cm, previously measured 1.5 cm with more linear appearance on prior PET/CT. Stable in size from most recent CT. Demonstrates a maximum SUV of 8.4, previously 2.3. Resolution of previously seen left apical nodular density from prior PET/CT. Similar right lower lobe superior segment reticular opacities with a maximum SUV of 2.6. ABDOMEN AND PELVIS: No suspicious radiotracer activity. MUSCULOSKELETAL STRUCTURES: No suspicious radiotracer activity. OTHER CT: Bilateral aphakia. Moderate atherosclerotic calcification of the arterial vasculature. Left chest wall to lead cardiac pacemaking device. Moderate coronary arterial calcifications. Left renal 1.1 cm cyst. Postcholecystectomy changes. Mild atrophy of the pancreas. Distal colonic diverticulosis . Small calcified fibroid changes of the uterus. Degenerative changes of the visualized spine. Moderate centrilobular emphysematous changes. Remote right-sided rib fractures with right lower lobe subsegmental scarring from prior trauma/surgical intervention. Stable medial left lower lobe 4 mm gabriela cified granuloma. Remote fracture of the inferior right pubic ramus and pubic symphysis. Degenerative changes of the pubic symphysis. Osteoarthritic changes of both hips. IMPRESSION: 1. Enlarging 3 scattered FDG avid pulmonary nodules from prior PET/CT 12/27/2022. Overall stable in si ze from most recent CT chest 01/12/2024. These are favored to represent metastasis in the setting of p rior lung cancer. 2. Right lower lobe reticular scarring and atelectasis with FDG levels at background. Favored to rep resent scarring. 3. No distant metastatic changes within the abdomen or pelvis or neck identified.
== END | disposition home or self-care (01) ==
LOC: RADPETMAIN 12:33
PROVIDERS: ATTEND Internal Medicine
DX: R91.1 Solitary pulmonary nodule (principal); C34.90 Malignant neoplasm of unspecified part of unspecified bronchus or lung; J98.11 Atelectasis; K57.30 Diverticulosis of large intestine without perforation or abscess without bleeding; H27.03 Aphakia, bilateral; K86.89 Other specified diseases of pancreas; M16.0 Bilateral primary osteoarthritis of hip
CPT/HCPCS: 78815; A9552

== ENCOUNTER 2024-04-06 17:26 | Inpatient (IN) | payer MEDICARE, OTHER ==
--- NOTE | 2024-04-06 18:22 | ED ---
General Adult HPI - General Chief complaint: Shortness of Breath Stated complaint: STEPHANIE Time Seen by Provider: 04/06/24 17:42 Source: patient Mode of arrival: EMS Limitations: no limitations - History of Present Illness Initial comments: Dictation was produced using [employer] dictation software. please excuse any grammatical, word or spelling errors. Chief Complaint: 83-year-old female with multiple comorbidities presents to the ER for cough, shortness of breath. History of Present Illness: Patient is 83-year-old female she has multiple comorbidities. Her comorbidities include A-fib, hypertension, COPD and lung cancer. She was recently told that she is having possible recurrence after having had an abnormal PET scan recently. Denies any fever. She does complain of chills. States that she has a cough that is productive of green sputum. States that her chest feels sore. Patient wears home O2 The ROS documented in this emergency department record has been reviewed and confirmed by me. Those systems with pertinent positive or negative responses have been documented in the HPI. All other systems are other negative and/or noncontributory. - Related Data Home Medications Medication Instructions Recorded Confirmed Fluticasone/Umeclidin/Vilanter 1 puff INHALATION RT-DAILY 04/19/20 06/27/23 [Trelegy Ellipta 100-62.5-25] Mirtazapine [Remeron] 7.5 mg PO HS PRN 08/06/21 06/27/23 Atorvastatin Calcium [Lipitor] 80 mg PO HS 05/13/22 06/27/23 ALPRAZolam [Xanax] 0.25 mg PO DAILY PRN 12/01/22 06/27/23 Albuterol Sulfate [Albuterol 1 - 2 puff PO RT-Q4H PRN 12/01/22 06/27/23 Sulfate Hfa] Baclofen [Lioresal] 5 mg PO TID PRN 12/01/22 06/27/23 Lidocaine 5% Patch [Lidoderm 5% 1 patch TOPICAL DAILY PRN 12/01/22 06/27/23 Patch] Pantoprazole Sodium [Protonix] 20 mg PO DAILY 12/01/22 06/27/23 Ipratropium-Albuterol Nebulize 3 ml INHALATION RT-TID 06/27/23 06/27/23 [Duoneb 0.5 mg-3 mg/3 ml Soln] Metoprolol Succinate (ER) [Toprol 50 mg PO BID 06/27/23 06/27/23 XL] Vit C/E/Zn/Coppr/Lutein/Zeaxan 1 cap PO BID 06/27/23 06/27/23 [Preservision Areds 2 Softgel] busPIRone HCL 15 mg PO BID 06/27/23 06/27/23 predniSONE 5 mg PO DAILY 06/27/23 06/27/23 Previous Rx's Medication Instructions Recorded Apixaban [Eliquis] 2.5 mg PO BID tablet 10/02/16 Clopidogrel [Plavix] 75 mg PO DAILY #30 tab 08/10/20 amLODIPine [Norvasc] 5 mg PO DAILY #30 tab 12/02/22 Amoxic-Pot Clav 875-125Mg 1 each PO Q12HR 3 Days #5 tab 06/30/23 [Augmentin 875-125] Allergies Allergy/AdvReac Type Severity Reaction Status Date / Time No Known Allergies Allergy Verified 06/27/23 18:55 Review of Systems ROS Statement: Those systems with pertinent positive or pertinent negative responses have been documented in the HPI. ROS Other: All systems not noted in ROS Statement are negative. Past Medical History Past Medical History: Atrial Fibrillation, Cancer, Heart Failure, COPD, CVA/TIA, Diabetes Mellitus, Deep Vein Thrombosis (DVT), Fibromyalgia, GERD/Reflux, Hyperlipidemia, Hypertension, Osteoarthritis (OA), Pneumonia, Sleep Apnea/CPAP/BIPAP, Vascular Disorder Additional Past Medical History / Comment(s): back pain , lung cancer-radiation opnly, HOME 02 2 LITERS N/C, BLOOD CLOT AFTER SX, CVA LT SIDE AFFECTED SINCE RESOLVED, HIATAL HERNIA. SHINGLES 30 YEARS AGO, DOES'NT USE CPAP MACHINE.in past for short period of time took oral meds for dm-then taken off meds-pt stated not considered diabetic now but occ will check bs., macular degeneration.past broken rt leg and lt wrist. Raynauds. Pt currently has 3 fractured ribs on the right that she has "had for years and will not heal". History of Any Multi-Drug Resistant Organisms: MRSA Date of last positivie culture/infection: 09/25/16 MDRO Source:: BRONCH WASH Past Surgical History: Cholecystectomy, Heart Catheterization With Stent, Orthopedic Surgery Additional Past Surgical History / Comment(s): rt leg repaired after break-has pins, lt wrist-plate and screws. lung bx, stents tung groins. Past Anesthesia/Blood Transfusion Reactions: Family History of Problems w/ Anesthesia Additional Past Anesthesia/Blood Transfusion Reaction / Comment(s): daughter has diff waking after aa Date of Last Stent Placement:: unk Type of Cardiac Device: Permanent Pacemaker Device Placement Date:: 09/25/20 Past Psychological History: Anxiety, Depression Smoking Status: Former smoker Past Alcohol Use History: Occasional Past Drug Use History: None Reported - Past Family History Father Family Medical History: Congestive Heart Failure (CHF), COPD Additional Family Medical History / Comment(s): emphysema Mother Family Medical History: Cancer General Exam - General Exam Comments Initial Comments: PHYSICAL EXAM: General Impression: Alert and oriented x3, not in acute distress HEENT: Normocephalic atraumatic, extra-ocular movements intact, pupils equal and reactive to light bilaterally, mucous membranes moist. Cardiovascular: Heart regular rate and rhythm Chest: Able to complete full sentences, no retractions, no tachypnea, rhonchi to the right posterior lung eason Abdomen: abdomen soft, non-tender, non-distended, no organomegaly Musculoskeletal: Pulses present and equal in all extremities, no peripheral edema Motor: no focal deficits noted Neurological: CN II-XII grossly intact, no focal motor or sensory deficits noted Skin: Intact with no visualized rashes Psych: Normal affect and mood Limitations: no limitations Course Vital Signs 04/06/24 04/06/24 04/06/24 17:30 18:00 18:07 Temperature 98.7 F Pulse Rate 66 63 Respiratory 22 21 22 Rate Blood Pressure 127/51 129/52 O2 Sat by Pulse 96 96 Oximetry 04/06/24 18:30 Temperature Pulse Rate 64 Respiratory 20 Rate Blood Pressure 130/50 O2 Sat by Pulse 96 Oximetry EKG Findings - EKG Comments: EKG Findings:: My EKG interpretation: Ventricular rate 65, atrial paced rhythm, HI interval 204, QRS 72, QTc 4 7. No HI prolongation, no QTC prolongation, no ST or T-wave changes noted. EKG compared to June 27, 2023 showing no changes. Overall, this EKG is unremarkable Medical Decision Making - Medical Decision Making Was pt. sent in by a medical professional or institution (Dr., PA, GRADING SUPERVISOR, urgent care, hospital, or [facility]...) When possible be specific @ -No Did you speak to anyone other than the patient for history (EMS, parent, family, police, friend...)? What history was obtained from this source @ -No Did you review nursing and triage notes (agree or disagree)? Why? @ -I reviewed and agree with nursing and triage notes Were old charts reviewed (outside hosp., previous admission, EMS record, old EKG, old radiological studies, urgent care reports/EKG's, [facility] records)? Report findings @ -No old charts were reviewed Differential Diagnosis (chest pain, altered mental status, abdominal pain women, abdominal pain men, vaginal bleeding, musculoskeletal, weakness, fever, dyspnea, syncope, headache, dizziness, GI bleed, back pain, seizure, CVA, palpatations, mental health)? @ -Differential Dyspnea: Coronary syndrome, arrhythmia, tamponade, asthma, COPD, pulmonary embolism, pneumonia, pneumothorax, pulmonary effusion, anaphylaxis, diabetic ketoacidosis, flailed chest, pulmonary contusion, diaphragmatic rupture, anemia, neuromuscular, this is not meant to be an all-inclusive list. EKG interpreted by me (3pts min.). @ -See above X-rays interpreted by me (1pt min.). @ -Chest x-ray shows lung opacities CT interpreted by me (1pt min.). @ -CT brain is unremarkable U/S interpreted by me (1pt. min.). @ -None done What testing was considered but not performed or refused? (CT, X-rays, U/S, labs)? Why? @ -None What meds were considered but not given or refused? Why? @ -None Was smoking cessation discussed for >3mins.? @ -No Were there social determinants of health that impacted care today? How? (Homelessness, low income, unemployed, alcoholism, drug addiction, transportation, low edu. Level, literacy, decrease access to med. care, fpc, rehab)? @ -No Was there de-escalation of care discussed even if they declined (Discuss DNR or withdrawal of care, Hospice)? DNR status @ -No What co-morbidities impacted this encounter? (DM, HTN, Smoking, COPD, CAD, Cancer, CVA, ARF, Chemo, Hep., AIDS, mental health diagnosis, sleep apnea, morbid obesity)? @ -Lung cancer, COPD Was patient admitted / discharged? Hospital course, mention meds given and route, prescriptions, significant lab abnormalities, going to OR and other pertinent info. @ -83-year-old female with history of possible recurrent lung cancer to the ER with symptoms concerning for pulmonary infection.Signs upon arrival are within acceptable limits. Evaluation obtained. Leukocytosis of 14.2 metabolic panel is unremarkable. Viral testing is negative. CT scan of the brain is unremarkable. Chest x-ray i shows multifocal opacities concerning for pneumonia. Patient given antibiotics.. Case discussed with hospitalist for admission Did you discuss the management of the patient with other professionals (professionals i.e. , PA, GRADING SUPERVISOR, lab, RT, psych nurse, manager social media, green end department supervisor, teacher, vessel traffic officer, medical case manager)? Give summary @ -No Was critical care preformed (if so, how long)? @ -No Undiagnosed new problem with uncertain prognosis? @ -No Drug Therapy requiring intensive monitoring for toxicity (Heparin, Nitro, Insulin, Cardizem)? @ -No Were any procedures done? @ -No Diagnosis/symptom? Acute, or Chronic, or Acute on Chronic? Uncomplicated (without systemic symptoms) or Complicated (systemic symptoms)? @ -Pneumonia Side effects of treatment? @ -No Exacerbation, Progression, or Severe Exacerbation? @ -No Poses a threat to life or bodily function? How? (Chest pain, [place], [place], pneumonia, PE, COPD, DKA, ARF, appy, cholecystitis, CVA, Diverticulitis, Homicidal, Suicidal, threat to staff... and all critical care pts) @ -Yes - Lab Data Result diagrams: 04/06/24 18:30 04/06/24 18:30 Lab Results 04/06/24 04/06/24 04/06/24 Range/Units 18:30 18:30 18:30 WBC 14.2 H (3.8-10.6) k/uL RBC 4.23 (3.80-5.40) m/uL Hgb 12.7 (11.4-16.0) gm/dL Hct 39.2 (34.0-46.0) % MCV 92.7 (80.0-100.0) fL MCH 30.1 (25.0-35.0) pg MCHC 32.5 (31.0-37.0) g/dL RDW 13.4 (11.5-15.5) % Plt Count 165 (150-450) k/uL MPV 8.5 Neutrophils % 78 % Lymphocytes % 14 % Monocytes % 6 % Eosinophils % 1 % Basophils % 0 % Neutrophils # 11.0 H (1.3-7.7) k/uL Lymphocytes # 2.0 (1.0-4.8) k/uL Monocytes # 0.8 (0-1.0) k/uL Eosinophils # 0.2 (0-0.7) k/uL Basophils # 0.0 (0-0.2) k/uL Sodium 133 L (137-145) mmol/L Potassium 4.1 (3.5-5.1) mmol/L Chloride 97 L (98-107) mmol/L Carbon Dioxide 33 H (22-30) mmol/L Anion Gap 3 mmol/L BUN 19 H (7-17) mg/dL Creatinine 0.68 (0.52-1.04) mg/dL Est GFR (CKD-EPI)AfAm >90 (>60 ml/min/1.73 sqM) Est GFR (CKD-EPI)NonAf 81 (>60 ml/min/1.73 sqM) Glucose 136 H (74-99) mg/dL Plasma Lactic Acid Imer 1.3 (0.7-2.0) mmol/L Calcium 9.0 (8.4-10.2) mg/dL Magnesium 1.7 (1.6-2.3) mg/dL Total Bilirubin 1.0 (0.2-1.3) mg/dL AST 23 (14-36) U/L ALT 17 (4-34) U/L Alkaline Phosphatase 71 (38-126) U/L Total Protein 6.0 L (6.3-8.2) g/dL Albumin 3.6 (3.5-5.0) g/dL Influenza Type A (PCR) (Not Detectd) Influenza Type B (PCR) (Not Detectd) RSV (PCR) (Not Detectd) SARS-CoV-2 (PCR) (Not Detectd) 04/06/24 Range/Units 18:30 WBC (3.8-10.6) k/uL RBC (3.80-5.40) m/uL Hgb (11.4-16.0) gm/dL Hct (34.0-46.0) % MCV (80.0-100.0) fL MCH (25.0-35.0) pg MCHC (31.0-37.0) g/dL RDW (11.5-15.5) % Plt Count (150-450) k/uL MPV Neutrophils % % Lymphocytes % % Monocytes % % Eosinophils % % Basophils % % Neutrophils # (1.3-7.7) k/uL Lymphocytes # (1.0-4.8) k/uL Monocytes # (0-1.0) k/uL Eosinophils # (0-0.7) k/uL Basophils # (0-0.2) k/uL Sodium (137-145) mmol/L Potassium (3.5-5.1) mmol/L Chloride (98-107) mmol/L Carbon Dioxide (22-30) mmol/L Anion Gap mmol/L BUN (7-17) mg/dL Creatinine (0.52-1.04) mg/dL Est GFR (CKD-EPI)AfAm (>60 ml/min/1.73 sqM) Est GFR (CKD-EPI)NonAf (>60 ml/min/1.73 sqM) Glucose (74-99) mg/dL Plasma Lactic Acid Imer (0.7-2.0) mmol/L Calcium (8.4-10.2) mg/dL Magnesium (1.6-2.3) mg/dL Total Bilirubin (0.2-1.3) mg/dL AST (14-36) U/L ALT (4-34) U/L Alkaline Phosphatase (38-126) U/L Total Protein (6.3-8.2) g/dL Albumin (3.5-5.0) g/dL Influenza Type A (PCR) Not Detected (Not Detectd) Influenza Type B (PCR) Not Detected (Not Detectd) RSV (PCR) Not Detected (Not Detectd) SARS-CoV-2 (PCR) Not Detected (Not Detectd) Disposition Clinical Impression: Pneumonia Disposition: ADMITTED IP TO THIS [facility] Condition: Fair Referrals: Nohemi Estrada MD [Primary Care Provider] - 1-2 days Decision Time: 21:05
[2024-04-06 18:58] LABS: ALT 17 U/L (4-34); AST 23 U/L (14-36); African American GFR (CKD) >90 (>60 ml/min/1.73 sqM); Albumin 3.6 g/dL (3.5-5.0); Alkaline Phosphatase 71 U/L (38-126); Anion Gap 3 mmol/L; Blood Urea Nitrogen 19 mg/dL (7-17); Carbon Dioxide 33 mmol/L (22-30); Chloride 97 mmol/L (98-107); Glucose 136 mg/dL (74-99); Magnesium 1.7 mg/dL (1.6-2.3); Non-African American GFR(CKD) 81 (>60 ml/min/1.73 sqM); Potassium 4.1 mmol/L (3.5-5.1); Sodium 133 mmol/L (137-145)
[2024-04-06 18:59] LABS: Basophils % (A) 0 %; Eosinophils # (A) 0.2 k/uL (0-0.7); Eosinophils % (A) 1 %; HCT 39.2 % (34.0-46.0); HGB 12.7 gm/dL (11.4-16.0); Lymphocytes % (A) 14 %; MCH 30.1 pg (25.0-35.0); MCHC 32.5 g/dL (31.0-37.0); MCV 92.7 fL (80.0-100.0); Mean Platelet Volume 8.5; Monocytes # (A) 0.8 k/uL (0-1.0); Monocytes % (A) 6 %; Neutrophils % (A) 78 %; Platelet Count 165 k/uL (150-450); RBC 4.23 m/uL (3.80-5.40); RDW 13.4 % (11.5-15.5); WBC 14.2 k/uL (3.8-10.6)
--- NOTE | 2024-04-06 19:22 | XR ---
EXAMINATION TYPE: XR chest 2V DATE OF EXAM: 04/06/2024 6:47 PM COMPARISON: Chest radiographs from 06/27/2023, PET/CT 02/05/2024 CLINICAL INDICATION: Female, 83 years old with history of cough; [facility] TECHNIQUE: XR chest 2V Frontal and lateral views of the chest. FINDINGS: Lungs/Pleura: Right suprahilar opacity appears larger than prior now measuring 15 x 16 mm previously 15 x 9 mm. Similar prior PET/CT. Other pulmonary nodules are less well appreciated. Pulmonary vascularity: Unremarkable. Heart/mediastinum: Cardiomediastinal silhouette is unremarkable. Atherosclerotic calcifications are seen in the aorta. Single-lead cardiac conduction device overlying the left hemithorax with lead proj ecting over the right ventricle. Musculoskeletal: No acute osseous pathology. IMPRESSION: 1. Right lower lobe airspace opacities. Correlate for pneumonia. 2. Right suprahilar nodular opacity as seen on prior PET/CT. [facility], , 04/06/2024 7:20 PM
--- NOTE | 2024-04-06 20:22 | CT ---
EXAMINATION TYPE: CT brain wo con DATE OF EXAM: 04/06/2024 8:15 PM COMPARISON: 06/29/2023. CLINICAL INDICATION: Female, 83 years old with history of word finding difficulties, Word finding dif ficulties. Neurological deficit. TECHNIQUE: Brain: Axial CT images of the brain were obtained with coronal and sagittal reformats created and rev iewed. Contrast used: None. Oral contrast used: None. CT DLP: 1134.8 mGycm, Automated exposure control for dose reduction was used. FINDINGS: Brain: Extra-axial spaces: No abnormal extra-axial fluid collections. Ventricular system: Dilatation in proportion to cerebral atrophy. Cerebral parenchyma: Cerebral atrophy. Remote injuries in the bilateral basal ganglia similar to 2023. No acute intraparenchymal hemorrhage or mass effect. The lynn-white junction is well different iated. Scattered hypoattenuating areas are seen within the white matter. Cerebellum: Unremarkable. Mass effect: No evidence of midline shift. Intracranial vasculature: Atherosclerotic calcifications of the intracranial vessels. Soft tissues: Normal. Calvarium/osseous structures: No depressed skull fracture. Paranasal sinuses and mastoid air cells: Mild scattered paranasal sinus disease. Visualized orbits: Orbital contents are intact. IMPRESSION: 1. No acute intracranial process. 2. Nonspecific white matter changes, likely secondary to chronic small vessel ischemic disease. [facility], , 04/06/2024 8:20 PM
[2024-04-06] MEDS ORDERED: PNEUMONIA PROTOCOL UTILIZED 1 EACH MISC PO PRN (20:47)
[2024-04-06] MEDS: AZITHROMYCIN 500 MG in SODIUM CHLORIDE 0.9% 250 ML IVPB STA (21:49)
--- NOTE | 2024-04-07 07:41 | XR ---
EXAMINATION TYPE: XR chest 1V portable DATE OF EXAM: 04/07/2024 5:33 AM COMPARISON: 04/06/2024 CLINICAL INDICATION: Female, 83 years old with history of pneumonia, TECHNIQUE: XR chest 1V portable view(s) obtained. FINDINGS: The heart size is normal. The pulmonary vasculature is normal. Right lower lobe nodular density is present. Some perihilar increased lung markings are present. Pacemaker overlies the left chest IMPRESSION: 1. Right lower lobe increased density within the lung field. Follow-up recommended [facility], , 04/07/2024 7:39 AM
[2024-04-07] MEDS ORDERED: IPRATROPIUM-ALBUTEROL 3 ML NEB INHALATION PRN (09:27)
[2024-04-07] MEDS: AZITHROMYCIN 500 MG TAB PO SCH (10:57)
[2024-04-07] MEDS: IPRATROPIUM-ALBUTEROL 3 ML NEB INHALATION SCH (11:39)
--- NOTE | 2024-04-07 12:02 | P.CNPUL ---
History of Present Illness Consult date: 04/07/24 Requesting physician: Irving E Sheet Reason for consult: cough, abnormal CXR/CT Chief complaint: Shortness of breath, cough, congestion History of present illness: This is an 83-year-old female patient with a history of oxygen dependent chronic obstructive pulmonary disease, atrial fibrillation anticoagulated with Eliquis, congestive heart failure, anxiety, diabetes mellitus she also has a previous history of lung cancer with radiation treatment. She follows with Dr. Koch. He recent PET scan from January 2024 revealed enlarging 3 scattered FDG avid pulmonary nodules. Overall stable in size. Favored to represent metastasis in setting of prior lung cancer. There is a right lower lobe reticular scarring. No distant metastatic changes. She was aware of these findings and the rec ommendation from radiation oncology was for a follow-up PET scan in 4 months. She came to the emergency room yesterday with a 2 to 3-day history of increasing shortness of breath cough and congestion. She had some green productive sputum. No fever or chills. Chest x-ray reveals right lower lobe density. White count 14.2. Hemoglobin 12.7. Platelets 165. Sodium 133. Potassium 4.1. Bicarb 33. BUN 19. Creatinine 0.68. Glucose 136. Viral screen is negative. She was initiated on ceftriaxone and azithromycin. She is seen today in consultation in the emergency department. Currently resting on the stretcher. Awake and alert in no acute distress. Continues with a congested cough. Review of Systems REVIEW OF SYSTEMS: CONSTITUTIONAL: Denies any recent significant weight loss or weight gain. EYES: Denies change in vision. EARS, NOSE, MOUTH, THROAT: Denies headaches, denies sore throat. CARDIOVASCULAR: Denies chest pain, palpitations or syncopal episodes. RESPIRATORY: Positive for shortness of breath, cough, congestion no hemoptysis. GASTROINTESTINAL: Denies change in appetite, denies abdominal pain GENITOURINARY: Denies hematuria, denies infections. MUSKULOSKELETAL: Denies pain, denies swelling. INTEGUMENTARY: Denies rash, denies eczema. NEUROLOGICAL: Denies recent memory loss, no recent seizure activity. PSYCHIATRIC: Denies anxiety, denies depression. HEMATOLOGIC/LYMPHATIC: Denies anemia, denies enlarged lymph nodes. Past Medical History Past Medical History: Atrial Fibrillation, Cancer, Heart Failure, COPD, CVA/TIA, Diabetes Mellitus, Deep Vein Thrombosis (DVT), Fibromyalgia, GERD/Reflux, Hyperl ipidemia, Hypertension, Osteoarthritis (OA), Pneumonia, Sleep Apnea/CPAP/BIPAP, Vascular Disorder Additional Past Medical History / Comment(s): back pain , lung cancer-radiation opnly, HOME 02 2 LITERS N/C, BLOOD CLOT AFTER SX, CVA LT SIDE AFFECTED SINCE RESOLVED, HIATAL HERNIA. SHINGLES 30 YEARS AGO, DOES'NT USE CPAP MACHINE.in past for short period of time took oral meds for dm-then taken off meds-pt stated not considered diabetic now but occ will check bs., macular degeneration.past broken rt leg and lt wrist. Raynauds. Pt currently has 3 fractured ribs on the right that she has "had for years and will not heal". History of Any Multi-Drug Resistant Organisms: MRSA Date of last positivie culture/infection: 09/25/16 MDRO Source:: BRONCH WASH Past Surgical History: Cholecystectomy, Heart Catheterization With Stent, Orthopedic Surgery Additional Past Surgical History / Comment(s): rt leg repaired after break-has pins, lt wrist-plate and screws. lung bx, stents tung groins. Past Anesthesia/Blood Transfusion Reactions: Family History of Problems w/ Anesthesia Additional Past Anesthesia/Blood Transfusion Reaction / Comment(s): daughter has diff waking after aa Date of Last Stent Placement:: unk Type of Cardiac Device: Permanent Pacemaker Device Placement Date:: 09/25/20 Past Psychological History: Anxiety, Depression Smoking Status: Former smoker Past Alcohol Use History: Occasional Past Drug Use History: None Reported - Past Family History Father Family Medical History: Congestive Heart Failure (CHF), COPD Additional Family Medical History / Comment(s): emphysema Mother Family Medical History: Cancer Medications and Allergies Home Medications Medication Instructions Recorded Confirmed Type Apixaban [Eliquis] 2.5 mg PO BID tablet 10/02/16 06/27/23 Rx Fluticasone/Umeclidin/Vilanter 1 puff INHALATION RT-DAILY 04/19/20 06/27/23 History [Brinda Ellipta 100-62.5-25] Clopidogrel [Plavix] 75 mg PO DAILY #30 tab 08/10/20 06/27/23 Rx Mirtazapine [Remeron] 7.5 mg PO HS PRN 08/06/21 06/27/23 History Atorvastatin Calcium [Lipitor] 80 mg PO HS 05/13/22 06/27/23 History ALPRAZolam [Xanax] 0.25 mg PO DAILY PRN 12/01/22 06/27/23 History Albuterol Sulfate [Albuterol 1 - 2 puff PO RT-Q4H PRN 12/01/22 06/27/23 History Sulfate Hfa] Baclofen [Lioresal] 5 mg PO TID PRN 12/01/22 06/27/23 History Lidocaine 5% Patch [Lidoderm 5% 1 patch TOPICAL DAILY PRN 12/01/22 06/27/23 History Patch] Pantoprazole Sodium [Protonix] 20 mg PO DAILY 12/01/22 06/27/23 History amLODIPine [Norvasc] 5 mg PO DAILY #30 tab 12/02/22 06/27/23 Rx Ipratropium-Albuterol Nebulize 3 ml INHALATION RT-TID 06/27/23 06/27/23 History [Duoneb 0.5 mg-3 mg/3 ml Soln] Metoprolol Succinate (ER) [Toprol 50 mg PO BID 06/27/23 06/27/23 History XL] Vit C/E/Zn/Coppr/Lutein/Zeaxan 1 cap PO BID 06/27/23 06/27/23 History [Preservision Areds 2 Softgel] busPIRone HCL 15 mg PO BID 06/27/23 06/27/23 History predniSONE 5 mg PO DAILY 06/27/23 06/27/23 History Amoxic-Pot Clav 875-125Mg 1 each PO Q12HR 3 Days #5 tab 06/30/23 Rx [Augmentin 875-125] Allergies Allergy/AdvReac Type Severity Reaction Status Date / Time No Known Allergies Allergy Verified 06/27/23 18:55 Physical Exam Vitals: Vital Signs Temp Pulse Resp BP Pulse Ox 04/07/24 11:39 76 04/07/24 09:36 61 18 152/59 99 04/07/24 08:41 97 04/07/24 07:42 99.5 F 70 18 134/68 95 04/07/24 06:00 61 18 125/55 97 04/07/24 00:00 63 17 123/51 98 04/06/24 21:00 69 18 132/44 96 04/06/24 18:30 64 20 130/50 96 04/06/24 18:07 22 04/06/24 18:00 63 21 129/52 96 04/06/24 17:30 98.7 F 66 22 127/51 96 Intake and Output 04/06/24 04/07/24 04/07/24 22:59 06:59 14:59 Other: Weight 53.07 kg GENERAL EXAM: Alert, 83-year-old female, on 2 L nasal cannula, comfortable in no apparent distress. HEAD: Normocephalic. EYES: Normal reaction of pupils, equal size. NOSE: Clear with pink turbinates. THROAT: No erythema or exudates. NECK: No masses, no JVD. CHEST: No chest wall deformity. LUNGS: Equal air entry with bilateral scattered rhonchi, diminished. CVS: S1 and S2 normal with no audible murmur, regular rhythm. ABDOMEN: No hepatosplenomegaly, normal bowel sounds, no guarding or rigidity. SPINE: No scoliosis or deformity SKIN: No rashes CENTRAL NERVOUS SYSTEM: No focal deficits, tone is normal in all 4 extremities. EXTREMITIES: There is no peripheral edema. No clubbing, no cyanosis. Peripheral pulses are intact. Results - Laboratory Findings CBC and BMP: 04/06/24 18:30 04/06/24 18:30 Abnormal lab findings: Abnormal Labs 04/06/24 04/06/24 18:30 18:30 WBC 14.2 H Neutrophils # 11.0 H Sodium 133 L Chloride 97 L Carbon Dioxide 33 H BUN 19 H Glucose 136 H Total Protein 6.0 L - Diagnostic Findings Chest x-ray: image reviewed Assessment and Plan Assessment: Acute on chronic hypoxemic respiratory failure secondary to acute exacerbation of chronic obstructive pulmonary disease and possible community acquired right lower lobe pneumonia. Viral screen negative. Procalcitonin pending History of oxygen dependent chronic obstructive pulmonary disease Former smoker History of previous lung cancer status post radiation with new pulmonary nodules being followed in the outpatient setting Chronic atrial fibrillation, anticoagulated with Eliquis Hypertension Hyperlipidemia Diabetes mellitus History of anxiety History of DVT History of CVA Coronary artery disease with previous stent placement History of peripheral vascular disease with previous stent placement Status post permanent pacemaker implantation Plan: The patient was seen and evaluated Chest x-ray, labs and medications reviewed Continue ceftriaxone and azithromycin Check a procalcitonin Add DuoNeb inhalations, Symbicort Initiate Solu-Medrol Resume home medications We will continue to follow and make further recommendations based on her clinical status I have personally seen and examined the patient, performed the documentation and the assessment and plan as written. Number of minutes spent on the visit: 20 Dictation was produced using [employer] dictation software. Please excuse any grammatical, word or spelling errors.
[2024-04-07] MEDS: methylPREDNISolone SOD SUCCI 125 MG/2 ML VIAL IV SCH (12:53)
[2024-04-07] MEDS ORDERED: MELATONIN 5 MG TABLET PO PRN (14:10)
[2024-04-07] MEDS ORDERED: LACTULOSE 200 GM/300 ML (FROM 1/2 GAL JUG) PO PRN (14:10)
[2024-04-07] MEDS ORDERED: LIDOCAINE 4% PATCH TOPICAL PRN (14:10)
[2024-04-07] MEDS ORDERED: DEXTROSE 50% SYRINGE 50 ML IVP PRN ×2 (14:12)
[2024-04-07] MEDS: INSULIN ASPART (NovoLOG) 100 UNIT/ML VIAL SQ SCH (18:11)
[2024-04-07] MEDS: metFORMIN 500 MG TAB PO SCH (18:14)
[2024-04-07] MEDS: SYMBICORT 160-4.5 MCG INHALER INHALATION SCH (19:09)
[2024-04-07] MEDS: METOPROLOL SUCCINATE (ER) 50 MG TAB.ER.24H PO SCH (19:42)
[2024-04-07] MEDS: APIXABAN 5 MG TAB PO SCH (19:42)
[2024-04-07 19:53] LABS: Glucose,Whole Blood 415 mg/dL (70-110)
[2024-04-07] MEDS: MIRTAZAPINE 15 MG TAB PO SCH (19:59)
--- NOTE | 2024-04-07 21:27 | HP ---
HISTORY AND PHYSICAL CHIEF COMPLAINT: Shortness of breath and cough. HISTORY OF PRESENT ILLNESS: This is an 83-year-old woman with a past medical history of multiple medical problems including COPD and CHF, was complaining of increasing shortness of breath. The patient came to [facility] and was evaluated. Chest x-ray showed possible right lower lobe pneumonia and the patient was admitted for further evaluation and treatment. There is no history of any fever, rigors, or chills at this time. PAST MEDICAL HISTORY: Reviewed include atrial fibrillation, CHF, COPD. Rest of the history and rest of the chart is also reviewed. HOME MEDICATIONS: Reviewed include Colace. Dose and rest of medications reviewed. ALLERGIES: None. FAMILY HISTORY: History of CHF, COPD. Rest of the history and rest of the chart is also reviewed. REVIEW OF SYSTEMS: A 14-point review of systems is negative except as mentioned earlier. PHYSICAL EXAMINATION: VITAL SIGNS: Pulse is 70, blood pressure 170/70, respirations 18. HEENT: Conjunctivae normal. NECK: No JVD. CARDIOVASCULAR: S1, S2. RESPIRATIONS: Breath sounds diminished at the bases. Few scattered rhonchi and crackles. Expiratory wheezing. ABDOMEN: Soft. NERVOUS SYSTEM: Nonfocal. LABORATORY DATA: Reviewed. ASSESSMENT: 1. Chronic obstructive pulmonary disease acute exacerbation with right lower lobe pneumonia, possibly gram-negative. 2. History of atrial fibrillation. 3. History of deep venous thrombosis. 4. Diabetes mellitus, type 2. 5. History of coronary artery disease stent. 6. Multiple complex medical issues. RECOMMENDATIONS AND DISCUSSION: This is an 83-year-old woman, who presented with multiple complex medical issues. We will monitor the patient closely. I would recommend empiric antibiotics, IV steroids, bronchodilators. Closely follow with Pulmonary. Guarded prognosis because of multiple complex medical issues. Further recommendations to follow. See orders for further details. MMODL / IJN: [id number] /
[2024-04-08 01:45] LABS: Glucose,Whole Blood 159 mg/dL (70-110)
[2024-04-08 07:22] LABS: Glucose,Whole Blood 155 mg/dL (70-110)
[2024-04-08 08:53] LABS: Basophils # (A) 0.03 X 10*3/uL (0.00-0.10); Basophils % (A) 0.3 %; Eosinophils # (A) 0 X 10*3/uL (0.04-0.35); Eosinophils % (A) 0 %; HCT 37.5 % (37.2-46.3); HGB 11.8 g/dL (12.0-15.0); Lymphocytes % (A) 6.7 %; MCH 29.7 pg (27.0-32.0); MCHC 31.5 g/dL (32.0-37.0); MCV 94.5 FL (80.0-97.0); Mean Platelet Volume 11.5 FL (9.5-12.2); Monocytes # (A) 0.15 X 10*3/uL (0.20-1.00); Monocytes % (A) 1.7 %; NRBC Per 100 WBC 0 X 10*3/uL (0.00-0.01); Neutrophils # (A) 8.13 X 10*3/uL (1.80-7.70); Neutrophils % (A) 90.6 %; Platelet Count 170 X 10*3/uL (140-440); RBC 3.97 X 10*6/uL (4.10-5.20); RDW 13.2 % (11.5-14.5); WBC 8.97 X 10*3/uL (4.50-10.00)
[2024-04-08] MEDS: PRAVASTATIN SODIUM 80 MG TAB PO SCH (09:02)
[2024-04-08] MEDS: PANTOPRAZOLE 40 MG TABLET PO SCH (09:03)
[2024-04-08] MEDS: amLODIPine 5 MG TAB PO SCH (09:04)
[2024-04-08] MEDS: DULoxetine HCL 60 MG CAPSULE.DR PO SCH (09:04)
[2024-04-08] MEDS: CYANOCOBALAMIN 500 MCG TAB PO SCH (09:04)
[2024-04-08] MEDS: DAPAGLIFLOZIN PROPANEDIOL 10 MG TABLET PO SCH (09:04)
[2024-04-08 09:44] LABS: African American GFR (CKD) >90 (>60 ml/min/1.73 sqM); Anion Gap 2 mmol/L; Blood Urea Nitrogen 19 mg/dL (7-17); Calcium 9.3 mg/dL (8.4-10.2); Carbon Dioxide 29 mmol/L (22-30); Chloride 105 mmol/L (98-107); Glucose 173 mg/dL (74-99); Non-African American GFR(CKD) 85 (>60 ml/min/1.73 sqM); Potassium 4.5 mmol/L (3.5-5.1); Sodium 136 mmol/L (137-145)
--- NOTE | 2024-04-08 11:49 | P.PN ---
Subjective Progress Note Date: 04/08/24 This is an 83-year-old female patient with a history of oxygen dependent chronic obstructive pulmonary disease, atrial fibrillation anticoagulated with Eliquis, congestive heart failure, anxiety, diabetes mellitus she also has a previous history of lung cancer with radiation treatment. She follows with Dr. Koch. He recent PET scan from January 2024 revealed enlarging 3 scattered FDG avid pulmonary nodules. Overall stable in size. Favored to represent metastasis in setting of prior lung cancer. There is a right lower lobe reticular scarring. No distant metastatic changes. She was aware of these findings and the recommendation from radiation oncology was for a follow-up PET scan in 4 months. She came to the emergency room yesterday with a 2 to 3-day history of increasing shortness of breath cough and congestion. She had some green productive sputum. No fever or chills. Chest x-ray reveals right lower lobe density. White count 14.2. Hemoglobin 12.7. Platelets 165. Sodium 133. Potassium 4.1. Bicarb 33. BUN 19. Creatinine 0.68. Glucose 136. Viral screen is negative. She was initiated on ceftriaxone and azithromycin. She is seen today in consultation in the emergency department. Currently resting on the stretcher. Awake and alert in no acute distress. Continues with a congested cough. The patient is seen today April 08, 2024 in follow-up on the regular medical floor. She is currently resting comfortably in bed. Awake and alert in no acute distress. Feeling quite a bit better today compared to yesterday. She is maintaining O2 saturations in the 90s on 2 L/min per nasal cannula. Procalcitonin 0.22. White count 8.9. Hemoglobin 11.8. Platelets 170. Sodium 136. Potassium 4.5. Bicarb 29. BUN 19. Creatinine 0.58. Glucose 173. X-ray revealed suspected scarring of the right lower lobe as noted on previous chest x-rays and CAT scan. She is being treated for tracheobronchitis. She remains on Rocephin and azithromycin along with DuoNeb inhalations, Symbicort, Solu- Medrol. Anticoagulated with Eliquis. Objective - Vital Signs Vital signs: Vital Signs Temp 97.6 F 04/08/24 07:28 Pulse 80 04/08/24 08:02 Resp 17 04/08/24 07:28 BP 177/80 04/08/24 07:28 Pulse Ox 97 04/08/24 07:57 FiO2 Intake & Output 04/07/24 04/08/24 04/08/24 18:59 06:59 18:59 Intake Total 240 Balance 240 Weight 53.07 kg Intake: Oral 240 Other: # Voids 2 - Exam GENERAL EXAM: Alert, 83-year-old female, resting comfortably in bed, on 2 L nasal cannula, in no apparent distress. HEAD: Normocephalic. EYES: Normal reaction of pupils, equal size. NOSE: Clear with pink turbinates. THROAT: No erythema or exudates. NECK: No masses, no JVD. CHEST: No chest wall deformity. LUNGS: Equal air entry with bilateral scattered rhonchi, diminished. CVS: S1 and S2 normal with no audible murmur, regular rhythm. ABDOMEN: No hepatosplenomegaly, normal bowel sounds, no guarding or rigidity. SPINE: No scoliosis or deformity SKIN: No rashes CENTRAL NERVOUS SYSTEM: No focal deficits, tone is normal in all 4 extremities. EXTREMITIES: There is no peripheral edema. No clubbing, no cyanosis. Peripheral pulses are intact. - Labs CBC & Chem 7: 04/08/24 05:55 04/08/24 05:55 Labs: Abnormal Lab Results - Last 24 Hours (Table) 04/07/24 04/08/24 04/08/24 Range/Units 19:39 01:38 05:55 RBC 3.97 L (4.10-5.20) X 10*6/uL Hgb 11.8 L (12.0-15.0) g/dL MCHC 31.5 L (32.0-37.0) g/dL Immature Gran # 0.06 H (0.00-0.04) X 10*3/uL Neutrophils # 8.13 H (1.80-7.70) X 10*3/uL Lymphocytes # 0.60 L (0.90-5.00) X 10*3/uL Monocytes # 0.15 L (0.20-1.00) X 10*3/uL Eosinophils # 0 L (0.04-0.35) X 10*3/uL Sodium (137-145) mmol/L BUN (7-17) mg/dL Glucose (74-99) mg/dL POC Glucose (mg/dL) 415 H 159 H (70-110) mg/dL 04/08/24 04/08/24 Range/Units 05:55 07:20 RBC (4.10-5.20) X 10*6/uL Hgb (12.0-15.0) g/dL MCHC (32.0-37.0) g/dL Immature Gran # (0.00-0.04) X 10*3/uL Neutrophils # (1.80-7.70) X 10*3/uL Lymphocytes # (0.90-5.00) X 10*3/uL Monocytes # (0.20-1.00) X 10*3/uL Eosinophils # (0.04-0.35) X 10*3/uL Sodium 136 L (137-145) mmol/L BUN 19 H (7-17) mg/dL Glucose 173 H (74-99) mg/dL POC Glucose (mg/dL) 155 H (70-110) mg/dL Assessment and Plan Assessment: Acute on chronic hypoxemic respiratory failure secondary to acute exacerbation of chronic obstructive pulmonary disease. Viral screen negative. Procalcitonin negative History of oxygen dependent chronic obstructive pulmonary disease Former smoker History of previous lung cancer status post radiation with new pulmonary nodules being followed in the outpatient setting Chronic atrial fibrillation, anticoagulated with Eliquis Hypertension Hyperlipidemia Diabetes mellitus History of anxiety History of DVT History of CVA Coronary artery disease with previous stent placement History of peripheral vascular disease with previous stent placement Status post permanent pacemaker implantation Plan: The patient was seen and evaluated Labs and medications reviewed Continue ceftriaxone and azithromycin Continue DuoNeb inhalations, Symbicort Continue Solu-Medrol We will continue to follow I have personally seen and examined the patient, performed the documentation and the assessment and plan as written. Number of minutes spent on the visit: 10 Dictation was produced using [employer] dictation software. Please excuse any grammatical, word or spelling errors.
[2024-04-08 12:19] LABS: Glucose,Whole Blood 122 mg/dL (70-110)
[2024-04-08 17:17] LABS: Glucose,Whole Blood 246 mg/dL (70-110)
--- NOTE | 2024-04-08 18:04 | CT ---
EXAMINATION TYPE: CT neck chest w con DATE OF EXAM: 04/08/2024 5:23 PM COMPARISON: None. CLINICAL INDICATION: Female, 83 years old with history of difficulty swallowing, esophageal stenosis? , Difficulty swallowing and pain at right oropharynx TECHNIQUE: Axial images at 3 mm thick sections. Reconstructed images in the coronal plane and sagitt al plane are reviewed. Contrast used:100ml mL of Isovue 300 with IV Contrast, (none if empty) Oral contrast used: (none if empty) CT DLP: 481.3 mGycm, Automated exposure control for dose reduction was used. FINDINGS: Limited CT sections are obtained the lung apices. The lung apices appear clear. CT neck: The torus tubarius and fossa of Rosenmuller are normal. [employer] spaces are normal. Para nasal sinuses and mastoid air cells are clear. Parotid glands appear normal and symmetrical. Submandibular glands, are normal. Parapharyngeal spac es are normal. No suspicious adenopathy is evident. The hypopharynx appears within normal limits. Vocal cord level appear symmetrical. Thyroid as visualized is normal. Osseous structures are normal. IMPRESSION: 1. No acute suspicious changes to account for right oral pharynx pain EXAMINATION TYPE: CT neck chest w con DATE OF EXAM: 04/08/2024 5:23 PM COMPARISON: 01/12/2024 CLINICAL INDICATION: Female, 83 years old with history of difficulty swallowing, esophageal stenosis? , Difficulty swallowing and pain at right oropharynx TECHNIQUE: Axial images were obtained at 5 mm thick sections. Reconstructed images are reviewed on [employer] computer in the coronal plane. Contrast used:100ml mL of Isovue 300 with IV Contrast, (none if empty) Oral contrast used: (none if empty) CT DLP: 481.3 mGycm, Automated exposure control for dose reduction was used. FINDINGS: Portion of the thyroid visualized is normal. There is a 1.3 cm spiculated density within the mid right lung. Series 6 image 29. There is a 1.7 cm lobular density lateral left mid lung. Series 6 image 30. There is a 0.8 cm nodule lateral to the johan cending thoracic aorta, series 6 image 22. There is a calcification posterior to the aorta within the medial left lung, series 6 image 26. There is an irregular masslike area measuring 4.0 x 2.0 cm righ t superior segment lower lobe. Series 6 image 36. The posterior right irregular masslike density has enlarged over the interval. Larger nodules were pr esent previously No enlarged mediastinal or hilar adenopathy is evident. The ascending aorta diameter at the level o f the main pulmonary artery is 3.2 cm. The main pulmonary artery diameter at the bifurcation is 2.[address] sections are obtained through the upper abdomen. Renal cysts are present. IMPRESSION: 1. Lobular nodule within the lateral left mid lung and spiculated nodule within the anterior right mi d lung. Irregular masslike density posterior right lung. There are some additional small nodules. Co nsider metastasis. [facility], , 04/08/2024 6:02 PM
[2024-04-08 19:59] LABS: Glucose,Whole Blood 302 mg/dL (70-110)
[2024-04-08] MEDS: ALPRAZolam 0.5 MG TAB PO PRN (20:47)
--- NOTE | 2024-04-08 21:30 | PN ---
PROGRESS NOTE DATE OF SERVICE: 04/08/2024 SUBJECTIVE: This is an 83-year-old woman, who was admitted with COPD acute exacerbation, right lower pneumonia, is being closely monitored. No chest pain. No palpitations. No fever. OBJECTIVE: VITAL SIGNS: Pulse is 80, blood pressure 177/82, respirations 17. CHEST: A few scattered rhonchi and crackles. ABDOMEN: Soft. NERVOUS SYSTEM: Nonfocal. LABORATORY DATA: Reviewed. ASSESSMENT: 1. Chronic obstructive pulmonary disease acute exacerbation with right lower lobe pneumonia, possibly gram-negative. 2. History of atrial fibrillation. 3. History of deep venous thrombosis. 4. Diabetes mellitus, type 2. 5. History of coronary artery disease stent. 6. Multiple complex medical issues. RECOMMENDATIONS AND DISCUSSION: Recommend to continue current medications. Continue symptomatic treatment with antibiotics, bronchodilators, and steroids. Closely follow with Pulmonary. Guarded prognosis. Further recommendations to follow. Repeat labs. MMODL / IJN: [id number] /
[2024-04-09 07:06] LABS: Glucose,Whole Blood 211 mg/dL (70-110)
[2024-04-09] MEDS: THIAMINE 100 MG TAB PO SCH (09:29)
[2024-04-09] MEDS: MULTIVITAMINS, THERA 1 EACH TAB PO SCH (09:29)
[2024-04-09] MEDS: FOLIC ACID 1 MG TAB PO SCH (09:29)
[2024-04-09] MEDS: BENZONATATE 100 MG CAP PO PRN (09:40)
[2024-04-09] MEDS: DOCUSATE 100 MG CAP PO PRN (09:44)
[2024-04-09 09:49] LABS: BUN/Creat Ratio 29.86 Ratio (12.00-20.00); Blood Urea Nitrogen 20.9 mg/dL (9.0-27.0); Calcium 9.4 mg/dL (8.7-10.3); Chloride 101 mmol/L (96-109); Glucose 258 mg/dL (70-110); Potassium 4.5 mmol/L (3.5-5.5); Sodium 140 mmol/L (135-145)
--- NOTE | 2024-04-09 11:54 | P.PN ---
Subjective Progress Note Date: 04/09/24 This is an 83-year-old female patient with a history of oxygen dependent chronic obstructive pulmonary disease, atrial fibrillation anticoagulated with Eliquis, congestive heart failure, anxiety, diabetes mellitus she also has a previous history of lung cancer with radiation treatment. She follows with Dr. Koch. He recent PET scan from January 2024 revealed enlarging 3 scattered FDG avid pulmonary nodules. Overall stable in size. Favored to represent metastasis in setting of prior lung cancer. There is a right lower lobe reticular scarring. No distant metastatic changes. She was aware of these findings and the recommendation from radiation oncology was for a follow-up PET scan in 4 months. She came to the emergency room yesterday with a 2 to 3-day history of increasing shortness of breath cough and congestion. She had some green productive sputum. No fever or chills. Chest x-ray reveals right lower lobe density. White count 14.2. Hemoglobin 12.7. Platelets 165. Sodium 133. Potassium 4.1. Bicarb 33. BUN 19. Creatinine 0.68. Glucose 136. Viral screen is negative. She was initiated on ceftriaxone and azithromycin. She is seen today in consultation in the emergency department. Currently resting on the stretcher. Awake and alert in no acute distress. Continues with a congested cough. The patient is seen today April 08, 2024 in follow-up on the regular medical floor. She is currently resting comfortably in bed. Awake and alert in no acute distress. Feeling quite a bit better today compared to yesterday. She is maintaining O2 saturations in the 90s on 2 L/min per nasal cannula. Procalcitonin 0.22. White count 8.9. Hemoglobin 11.8. Platelets 170. Sodium 136. Potassium 4.5. Bicarb 29. BUN 19. Creatinine 0.58. Glucose 173. X-ray revealed suspected scarring of the right lower lobe as noted on previous chest x-rays and CAT scan. She is being treated for tracheobronchitis. She remains on Rocephin and azithromycin along with DuoNeb inhalations, Symbicort, Solu- Medrol. Anticoagulated with Eliquis. The patient is seen today April 09, 2024 in follow-up on the regular medical floor. She is sitting up in bed. Awake and alert in no acute distress. Maintaining O2 saturations in the 90s on 2 L/min per nasal cannula. Complaints of pain in her right throat and congested cough. CT scan of the neck revealed no acute suspicious change use to account for right oropharynx pain. CT scan of the chest revealed a lobular nodule within the lateral left midlung and spiculated nodule within the anterior right midlung. Irregular masslike density posterior right lung. Some additional small nodules. Sodium 140. Potassium 4.5. Bicarb 26. BUN 21. Creatinine 0.7. Glucose 258. She remains on DuoNeb inhalations, Symbicort, Solu-Medrol. Anticoagulated with Eliquis. Objective - Vital Signs Vital signs: Vital Signs Temp 97.7 F 04/09/24 07:05 Pulse 80 04/09/24 09:21 Resp 14 04/09/24 07:05 BP 134/57 04/09/24 07:05 Pulse Ox 100 04/09/24 07:05 FiO2 Intake & Output 04/08/24 04/09/24 04/09/24 18:59 06:59 18:59 Intake Total 1678 Balance 1678 Intake: Oral 1678 Other: Voiding Method Toilet # Voids 3 2 - Exam GENERAL EXAM: Alert, oriented 83-year-old female, on 2 L nasal cannula, in no apparent distress. HEAD: Normocephalic. EYES: Normal reaction of pupils, equal size. NOSE: Clear with pink turbinates. THROAT: No erythema or exudates. NECK: No masses, no JVD. CHEST: No chest wall deformity. LUNGS: Equal air entry with bilateral scattered rhonchi, diminished. CVS: S1 and S2 normal with no audible murmur, regular rhythm. ABDOMEN: No hepatosplenomegaly, normal bowel sounds, no guarding or rigidity. SPINE: No scoliosis or deformity SKIN: No rashes CENTRAL NERVOUS SYSTEM: No focal deficits, tone is normal in all 4 extremities. EXTREMITIES: There is no peripheral edema. No clubbing, no cyanosis. Peripheral pulses are intact. - Labs CBC & Chem 7: 04/08/24 05:55 04/09/24 06:00 Labs: Abnormal Lab Results - Last 24 Hours (Table) 04/08/24 04/08/24 04/08/24 Range/Units 05:55 12:15 17:15 Anion Gap (4.00-12.00) mmol/L BUN/Creatinine Ratio (12.00-20.00) Ratio Glucose (70-110) mg/dL POC Glucose (mg/dL) 122 H 246 H (70-110) mg/dL Hemoglobin A1c 7.0 H (<=6.0) % 04/08/24 04/09/24 04/09/24 Range/Units 19:57 06:00 07:04 Anion Gap 13.00 H (4.00-12.00) mmol/L BUN/Creatinine Ratio 29.86 H (12.00-20.00) Ratio Glucose 258 H (70-110) mg/dL POC Glucose (mg/dL) 302 H 211 H (70-110) mg/dL Hemoglobin A1c (<=6.0) % Assessment and Plan Assessment: Acute on chronic hypoxemic respiratory failure secondary to acute exacerbation of chronic obstructive pulmonary disease. Viral screen negative. Procalcitonin negative History of oxygen dependent chronic obstructive pulmonary disease Former smoker Right sided neck pain. CT scan of the neck revealed no acute suspicious change use to account for right oropharynx pain History of previous lung cancer status post radiation with new pulmonary nodules being followed in the outpatient setting. CT scan of the chest revealed a lobular nodule within the lateral left midlung and spiculated nodule within the anterior right midlung. Irregular masslike density posterior right lung. Some additional small nodules. Chronic atrial fibrillation, anticoagulated with Eliquis Hypertension Hyperlipidemia Diabetes mellitus History of anxiety History of DVT History of CVA Coronary artery disease with previous stent placement History of peripheral vascular disease with previous stent placement Status post permanent pacemaker implantation Plan: The patient was seen and evaluated CT scan of the neck and chest, labs and medications reviewed Continue DuoNeb inhalations, Symbicort Discontinue Solu-Medrol, initiated prednisone taper Cleared for discharge from the pulmonary standpoint Follow-up in our office with Dr. Koch in 1 week I have personally seen and examined the patient, performed the documentation and the assessment and plan as written. Number of minutes spent on the visit: 10 Dictation was produced using [employer] dictation software. Please excuse any grammatical, word or spelling errors.
[2024-04-09 12:08] LABS: Glucose,Whole Blood 332 mg/dL (70-110)
[2024-04-09 13:31] LABS: Basophils # (A) 0.03 X 10*3/uL (0.00-0.10); Basophils % (A) 0.2 %; Eosinophils # (A) 0 X 10*3/uL (0.04-0.35); Eosinophils % (A) 0 %; HGB 10.9 g/dL (12.0-15.0); Lymphocytes # (A) 0.52 X 10*3/uL (0.90-5.00); Lymphocytes % (A) 3.3 %; MCH 29.5 pg (27.0-32.0); MCHC 31.1 g/dL (32.0-37.0); MCV 94.9 FL (80.0-97.0); Mean Platelet Volume 12.2 FL (9.5-12.2); Monocytes % (A) 1.9 %; NRBC Per 100 WBC 0 X 10*3/uL (0.00-0.01); Neutrophils # (A) 14.96 X 10*3/uL (1.80-7.70); Neutrophils % (A) 93.8 %; Platelet Count 159 X 10*3/uL (140-440); RBC 3.69 X 10*6/uL (4.10-5.20); RDW 13.4 % (11.5-14.5); WBC 15.93 X 10*3/uL (4.50-10.00)
[2024-04-09 17:07] LABS: Glucose,Whole Blood 222 mg/dL (70-110)
[2024-04-09 20:13] LABS: Glucose,Whole Blood 294 mg/dL (70-110)
[2024-04-09] MEDS: LACTULOSE 20 GM/30 ML CUP PO PRN (23:08)
[2024-04-10 07:37] LABS: Glucose,Whole Blood 223 mg/dL (70-110)
--- NOTE | 2024-04-10 07:39 | PN ---
PROGRESS NOTE DATE OF SERVICE: 04/09/2024 SUBJECTIVE: This is an 83-year-old woman, who was admitted with COPD acute exacerbation, right lower lobe pneumonia, is being closely monitored. No chest pain. No palpitations. No fever. Chest CT scan shows lung nodule. OBJECTIVE: VITAL SIGNS: Pulse is 68, blood pressure 120/64, respirations 14. CHEST: A few scattered rhonchi and crackles. ABDOMEN: Soft. NERVOUS SYSTEM: Nonfocal. LABORATORY DATA: Reviewed WBC 15.3. Accu-Cheks noted. ASSESSMENT: 1. Chronic obstructive pulmonary disease acute exacerbation with right lower lobe pneumonia with possibly gram-negative. 2. Abnormal CT scan. 3. History of atrial fibrillation. 4. History of deep venous thrombosis. 5. Diabetes mellitus, type 2. 6. History of coronary artery disease stent. 7. Multiple complex medical issues. RECOMMENDATIONS AND DISCUSSION: Recommend to continue current medications, continue symptomatic treatment. Otherwise, continue with antibiotics, bronchodilators. The CT scan is abnormal, but the patient has outpatient followup. We will continue to monitor. Further recommendations to follow. Repeat labs will be ordered. MMODL / IJN: [id number] /
[2024-04-10] MEDS: predniSONE 20 MG TAB PO SCH (09:19)
[2024-04-10 09:45] LABS: BUN/Creat Ratio 32.62 Ratio (12.00-20.00); Blood Urea Nitrogen 26.1 mg/dL (9.0-27.0); Calcium 9.9 mg/dL (8.7-10.3); Carbon Dioxide 28.4 mmol/L (21.6-31.8); Chloride 98 mmol/L (96-109); Glucose 234 mg/dL (70-110); Potassium 4.4 mmol/L (3.5-5.5); Sodium 139 mmol/L (135-145)
[2024-04-10 09:50] LABS: Basophils # (A) 0.06 X 10*3/uL (0.00-0.10); Basophils % (A) 0.4 %; Eosinophils # (A) 0 X 10*3/uL (0.04-0.35); Eosinophils % (A) 0 %; HGB 11.2 g/dL (12.0-15.0); Lymphocytes # (A) 0.69 X 10*3/uL (0.90-5.00); Lymphocytes % (A) 4.8 %; MCH 29.6 pg (27.0-32.0); MCHC 31.1 g/dL (32.0-37.0); Mean Platelet Volume 11.8 FL (9.5-12.2); Monocytes # (A) 0.46 X 10*3/uL (0.20-1.00); Monocytes % (A) 3.2 %; NRBC Per 100 WBC 0 X 10*3/uL (0.00-0.01); Neutrophils # (A) 12.94 X 10*3/uL (1.80-7.70); Neutrophils % (A) 89.5 %; Platelet Count 200 X 10*3/uL (140-440); RBC 3.79 X 10*6/uL (4.10-5.20); RDW 13.4 % (11.5-14.5); WBC 14.46 X 10*3/uL (4.50-10.00)
--- NOTE | 2024-04-10 10:47 | P.PN ---
Subjective Progress Note Date: 04/10/24 This is an 83-year-old female patient with a history of oxygen dependent chronic obstructive pulmonary disease, atrial fibrillation anticoagulated with Eliquis, congestive heart failure, anxiety, diabetes mellitus she also has a previous history of lung cancer with radiation treatment. She follows with Dr. Koch. He recent PET scan from January 2024 revealed enlarging 3 scattered FDG avid pulmonary nodules. Overall stable in size. Favored to represent metastasis in setting of prior lung cancer. There is a right lower lobe reticular scarring. No distant metastatic changes. She was aware of these findings and the recommendation from radiation oncology was for a follow-up PET scan in 4 months. She came to the emergency room yesterday with a 2 to 3-day history of increasing shortness of breath cough and congestion. She had some green productive sputum. No fever or chills. Chest x-ray reveals right lower lobe density. White count 14.2. Hemoglobin 12.7. Platelets 165. Sodium 133. Potassium 4.1. Bicarb 33. BUN 19. Creatinine 0.68. Glucose 136. Viral screen is negative. She was initiated on ceftriaxone and azithromycin. She is seen today in consultation in the emergency department. Currently resting on the stretcher. Awake and alert in no acute distress. Continues with a congested cough. The patient is seen today April 08, 2024 in follow-up on the regular medical floor. She is currently resting comfortably in bed. Awake and alert in no acute distress. Feeling quite a bit better today compared to yesterday. She is maintaining O2 saturations in the 90s on 2 L/min per nasal cannula. Procalcitonin 0.22. White count 8.9. Hemoglobin 11.8. Platelets 170. Sodium 136. Potassium 4.5. Bicarb 29. BUN 19. Creatinine 0.58. Glucose 173. X-ray revealed suspected scarring of the right lower lobe as noted on previous chest x-rays and CAT scan. She is being treated for tracheobronchitis. She remains on Rocephin and azithromycin along with DuoNeb inhalations, Symbicort, Solu- Medrol. Anticoagulated with Eliquis. The patient is seen today April 09, 2024 in follow-up on the regular medical floor. She is sitting up in bed. Awake and alert in no acute distress. Maintaining O2 saturations in the 90s on 2 L/min per nasal cannula. Complaints of pain in her right throat and congested cough. CT scan of the neck revealed no acute suspicious change use to account for right oropharynx pain. CT scan of the chest revealed a lobular nodule within the lateral left midlung and spiculated nodule within the anterior right midlung. Irregular masslike density posterior right lung. Some additional small nodules. Sodium 140. Potassium 4.5. Bicarb 26. BUN 21. Creatinine 0.7. Glucose 258. She remains on DuoNeb inhalations, Symbicort, Solu-Medrol. Anticoagulated with Eliquis. The patient is seen today April 10, 2024 in follow-up on the regular medical floor. She is sitting up in bed. Awake and alert in no acute distress. Maintaining O2 saturations in the high 90s on 2 L/min per nasal cannula. She is afebrile. Hemodynamically stable. White count 14.4. Hemoglobin 11.2. Platelets 200. Sodium 139. Potassium 4.4. Bicarb 28. BUN 26. Creatinine 0.8. Glucose 234. She is continued on DuoNeb and elations, Symbicort, Solu- Medrol. Tessalon Perles for her cough. Anticoagulated with Eliquis. Objective - Vital Signs Vital signs: Vital Signs Temp 97.5 F L 04/10/24 07:48 Pulse 64 04/10/24 08:39 Resp 16 04/10/24 07:48 BP 149/67 04/10/24 07:48 Pulse Ox 99 04/10/24 07:48 FiO2 Intake & Output 04/09/24 04/10/24 04/10/24 18:59 06:59 18:59 Other: Voiding Method Toilet Toilet # Voids 3 1 # Bowel Movements 1 - Exam GENERAL EXAM: Alert, oriented 83-year-old female, resting comfortably in bed, on 2 L nasal cannula, in no apparent distress. HEAD: Normocephalic. EYES: Normal reaction of pupils, equal size. NOSE: Clear with pink turbinates. THROAT: No erythema or exudates. NECK: No masses, no JVD. CHEST: No chest wall deformity. LUNGS: Equal air entry with bilateral scattered rhonchi, diminished. CVS: S1 and S2 normal with no audible murmur, regular rhythm. ABDOMEN: No hepatosplenomegaly, normal bowel sounds, no guarding or rigidity. SPINE: No scoliosis or deformity SKIN: No rashes CENTRAL NERVOUS SYSTEM: No focal deficits, tone is normal in all 4 extremities. EXTREMITIES: There is no peripheral edema. No clubbing, no cyanosis. Peripheral pulses are intact. - Labs CBC & Chem 7: 04/10/24 05:49 04/10/24 05:49 Labs: Abnormal Lab Results - Last 24 Hours (Table) 04/09/24 04/09/24 04/09/24 Range/Units 06:00 12:07 17:05 WBC 15.93 H (4.50-10.00) X 10*3/uL RBC 3.69 L (4.10-5.20) X 10*6/uL Hgb 10.9 L (12.0-15.0) g/dL Hct 35.0 L (37.2-46.3) % MCHC 31.1 L (32.0-37.0) g/dL Immature Gran # 0.12 H (0.00-0.04) X 10*3/uL Neutrophils # 14.96 H (1.80-7.70) X 10*3/uL Lymphocytes # 0.52 L (0.90-5.00) X 10*3/uL Eosinophils # 0 L (0.04-0.35) X 10*3/uL Anion Gap (4.00-12.00) mmol/L BUN/Creatinine Ratio (12.00-20.00) Ratio Glucose (70-110) mg/dL POC Glucose (mg/dL) 332 H 222 H (70-110) mg/dL 04/09/24 04/10/24 04/10/24 Range/Units 20:10 05:49 05:49 WBC 14.46 H (4.50-10.00) X 10*3/uL RBC 3.79 L (4.10-5.20) X 10*6/uL Hgb 11.2 L (12.0-15.0) g/dL Hct 36.0 L (37.2-46.3) % MCHC 31.1 L (32.0-37.0) g/dL Immature Gran # 0.31 H (0.00-0.04) X 10*3/uL Neutrophils # 12.94 H (1.80-7.70) X 10*3/uL Lymphocytes # 0.69 L (0.90-5.00) X 10*3/uL Eosinophils # 0 L (0.04-0.35) X 10*3/uL Anion Gap 12.60 H (4.00-12.00) mmol/L BUN/Creatinine Ratio 32.62 H (12.00-20.00) Ratio Glucose 234 H (70-110) mg/dL POC Glucose (mg/dL) 294 H (70-110) mg/dL 04/10/24 Range/Units 07:06 WBC (4.50-10.00) X 10*3/uL RBC (4.10-5.20) X 10*6/uL Hgb (12.0-15.0) g/dL Hct (37.2-46.3) % MCHC (32.0-37.0) g/dL Immature Gran # (0.00-0.04) X 10*3/uL Neutrophils # (1.80-7.70) X 10*3/uL Lymphocytes # (0.90-5.00) X 10*3/uL Eosinophils # (0.04-0.35) X 10*3/uL Anion Gap (4.00-12.00) mmol/L BUN/Creatinine Ratio (12.00-20.00) Ratio Glucose (70-110) mg/dL POC Glucose (mg/dL) 223 H (70-110) mg/dL Assessment and Plan Assessment: Acute on chronic hypoxemic respiratory failure secondary to acute exacerbation of chronic obstructive pulmonary disease. Viral screen negative. Procalcitonin negative History of oxygen dependent chronic obstructive pulmonary disease Former smoker Right sided neck pain. CT scan of the neck revealed no acute suspicious change use to account for right oropharynx pain History of previous lung cancer status post radiation with new pulmonary nodules being followed in the outpatient setting. CT scan of the chest revealed a lobular nodule within the lateral left midlung and spiculated nodule within the anterior right midlung. Irregular masslike density posterior right lung. Some additional small nodules. Chronic atrial fibrillation, anticoagulated with Eliquis Hypertension Hyperlipidemia Diabetes mellitus History of anxiety History of DVT History of CVA Coronary artery disease with previous stent placement History of peripheral vascular disease with previous stent placement Status post permanent pacemaker implantation Plan: The patient was seen and evaluated Labs and medications reviewed Complete a prednisone taper Cleared for discharge from the pulmonary standpoint Continue her home Trelegy and DuoNeb inhalations Follow-up in our office with Dr. Koch in 1 week I have personally seen and examined the patient, performed the documentation and the assessment and plan as written. Number of minutes spent on the visit: 10 Dictation was produced using [employer] dictation software. Please excuse any grammatical, word or spelling errors.
[2024-04-10 11:35] LABS: Glucose,Whole Blood 283 mg/dL (70-110)
[2024-04-10 12:28] LABS: Glucose,Whole Blood 287 mg/dL (70-110)
[2024-04-10] MEDS: INSULIN DETEMIR (LEVEMIR) 100 UNIT/ML SYR SQ SCH (13:04)
--- NOTE | 2024-04-10 13:58 | XR ---
EXAMINATION TYPE: XR chest 1V portable DATE OF EXAM: 04/10/2024 1:51 PM COMPARISON: None. CLINICAL INDICATION: Female, 83 years old with history of SOB, TECHNIQUE: XR chest 1V portable view(s) obtained. FINDINGS: The heart size is normal. The pulmonary vasculature is normal. Nodular densities in the right lower lobe measuring 2.6 cm similar to comparison. Pacemaker overlies left chest. A 1.6 cm nodular densities on the left peripheral lung. IMPRESSION: 1. Bilateral lung densities appear similar to comparison. No new lung findings [facility], , 04/10/2024 1:56 PM
[2024-04-10] MEDS: PIPERACILLIN-TAZOBACTAM 3.375 GM in SODIUM CHLORIDE 0.9% 100 ML IVPB SCH (17:12)
[2024-04-10 17:31] LABS: Glucose,Whole Blood 196 mg/dL (70-110)
[2024-04-10 20:30] LABS: Glucose,Whole Blood 198 mg/dL (70-110)
--- NOTE | 2024-04-10 22:20 | P.CONS ---
History of Present Illness - Reason for Consult Consult date: 04/10/24 Sepsis Requesting physician: Samara Pack - Chief Complaint Shortness of breath and cough x days - History of Present Illness Patient is a 83-year-old female with a past medical history significant for COPD CVA TIA diabetes mellitus hypertension hyperlipidemia os teoarthritis atrial fibrillation and lung cancer patient presenting to the hospital 4 days ago for evaluation of increasing shortness of breath that apparently has been getting worse over the last few days patient denies having any chest pain she did have a cough and apparently was productive of some sputum initially however is drying out now patient denies any headache or URI symptoms no nausea no vomiting no abdominal pain or any diarrhea patient on presentation to the hospital was afebrile and no fever have recorded during this hospital stay patient was not tachycardic or hypotensive and no hypoxemia recorded during this hospital stay patient did have elevated white count 14.2 admission s ubsequent improvement of slightly up to 14.46 today with a left shift creatinine has been normal electrolytes are normal patient tested negative for influenza RSV COVID and urine for urine antigen was negative no sputum has been collected patient did have chest x-ray right lower lobe airspace opacity correlate for pneumonia subsequently the patient did have a neck and chest CT no acute suspicious changes in the neck and did have a lobular nodule within the lateral left midlung and spiculated nodule within the anterior right midlung irregular masslike density posterior right lung concerning for possible malignancy patient has been evaluated and treated by pulmonary during this admission and has been treated with steroids and Zosyn patient did have procalcitonin 0.22 infectious disease was consulted today concerning for sepsis and adjustment of antibiotic therapy after the patient has been cleared for discharge by pulmonary Review of Systems Positive point and negatives has been mentioned in the HPI, complete review of systems was performed and all other systems are negative Past Medical History Past Medical History: Atrial Fibrillation, Cancer, Heart Failure, COPD, CVA/TIA, Diabetes Mellitus, Deep Vein Thrombosis (DVT), Fibromyalgia, GERD/Reflux, Hyperlipidemia, Hypertension, Osteoarthritis (OA), Pneumonia, Sleep Apnea/CPAP/BIPAP, Vascular Disorder Additional Past Medical History / Comment(s): back pain , lung cancer-radiation opnly, HOME 02 2 LITERS N/C, BLOOD CLOT AFTER SX, CVA LT SIDE AFFECTED SINCE RESOLVED, HIATAL HERNIA. SHINGLES 30 YEARS AGO, DOES'NT USE CPAP MACHINE.in past for short period of time took oral meds for dm-then taken off meds-pt stated not considered diabetic now but occ will check bs., macular degeneration.past broken rt leg and lt wrist. Raynauds. Pt currently has 3 fractured ribs on the right that she has "had for years and will not heal". History of Any Multi-Drug Resistant Organisms: MRSA Year Discovered:: 09/25/16 MDRO Source:: BRONCH WASH Past Surgical History: Cholecystectomy, Heart Catheterization With Stent, Orthopedic Surgery Additional Past Surgical History / Comment(s): rt leg repaired after break-has pins, lt wrist-plate and screws. lung bx, stents tung groins. Past Anesthesia/Blood Transfusion Reactions: Family History of Problems w/ Anesthesia Additional Past Anesthesia/Blood Transfusion Reaction / Comm: daughter has diff waking after aa Date of Last Stent Placement:: unk Type of Cardiac Device: Permanent Pacemaker Device Placement Date:: 09/25/20 Smoking Status: Former smoker - Past Family History Father Family Medical History: Congestive Heart Failure (CHF), COPD Additional Family Medical History / Comment(s): emphysema Mother Family Medical History: Cancer Medications and Allergies Home Medications Medication Instructions Recorded Confirmed Type Fluticasone/Umeclidin/Vilanter 1 puff INHALATION RT-DAILY 04/19/20 04/07/24 History [Brinda Ellipta 100-62.5-25] Albuterol Sulfate [Albuterol 2 puff INHALATION RT-Q4H PRN 12/01/22 04/07/24 History Sulfate Hfa] Lidocaine 5% Patch [Lidoderm 5% 1 patch TOPICAL DAILY PRN 12/01/22 04/07/24 History Patch] Pantoprazole Sodium [Protonix] 20 mg PO DAILY 12/01/22 04/07/24 History amLODIPine [Norvasc] 5 mg PO DAILY #30 tab 12/02/22 04/07/24 Rx Ipratropium-Albuterol Nebulize 3 ml INHALATION RT-QID 06/27/23 04/07/24 History [Duoneb 0.5 mg-3 mg/3 ml Soln] Metoprolol Succinate (ER) [Toprol 50 mg PO BID 06/27/23 04/07/24 History XL] predniSONE 5 mg PO DIRECTED 06/27/23 04/07/24 History ALPRAZolam [Xanax] 0.5 mg PO BID PRN 04/07/24 04/07/24 History Apixaban [Eliquis] 5 mg PO BID 04/07/24 04/07/24 History Benzonatate [Tessalon Perle] 200 mg PO TID PRN 04/07/24 04/07/24 History Certravite-Antioxidant 18mg-400mcg 1 tab PO DAILY 04/07/24 04/07/24 History Cyanocobalamin (Vitamin B-12) 1,000 mcg PO DAILY 04/07/24 04/07/24 History [Vitamin B-12] DULoxetine HCL [Cymbalta] 60 mg PO DAILY 04/07/24 04/07/24 History Docusate [Colace] 100 mg PO HS PRN 04/07/24 04/07/24 History Doxycycline Monohydrate 100 mg PO BID 04/07/24 04/07/24 History Empagliflozin [Jardiance] 10 mg PO DAILY 04/07/24 04/07/24 History Lactulose 10 gm PO DAILY PRN 04/07/24 04/07/24 History Melatonin 10 mg PO HS PRN 04/07/24 04/07/24 History Mirtazapine [Remeron] 15 mg PO HS 04/07/24 04/07/24 History Pravastatin Sodium [Pravachol] 80 mg PO DAILY 04/07/24 04/07/24 History metFORMIN HCL ER [Glucophage XR] 500 mg PO W/SUPPER 04/07/24 04/07/24 History predniSONE 10 mg PO DIRECTED 04/07/24 04/07/24 History predniSONE [Deltasone] See Taper PO DIRECTED 04/07/24 04/07/24 History traMADol HCL 50 mg PO Q6H PRN 04/07/24 04/07/24 History Allergies Allergy/AdvReac Type Severity Reaction Status Date / Time No Known Allergies Allergy Verified 04/07/24 11:59 Physical Exam Vitals: Vital Signs Temp Pulse Pulse Resp BP Pulse Ox 04/10/24 13:25 98 F 71 18 157/65 98 04/10/24 08:39 64 04/10/24 08:27 64 04/10/24 07:48 97.5 F L 62 16 149/67 99 04/10/24 01:20 97.8 F 68 17 155/68 100 04/09/24 19:54 77 04/09/24 19:44 70 04/09/24 18:57 97.4 F L 70 16 138/57 100 Intake and Output 04/10/24 04/10/24 04/10/24 06:59 14:59 22:59 Other: # Voids 1 GENERAL DESCRIPTION: Elderly female lying in bed, no distress. No tachypnea or accessory muscle of respiration use. HEENT: Shows Pallor , no scleral icterus. Oral mucous membrane is dry. Mild thrush NECK: Trachea central, no thyromegaly. LUNGS: Unlabored breathing. Decreased breath sound at the base HEART: S1, S2, regular rate and rhythm. No loud murmur ABDOMEN: Soft, no tenderness , guarding or rigidity, no organomegaly EXTREMITIES: No edema of feet. SKIN: No rash, no masses palpable. NEUROLOGICAL: The patient is awake, alert, oriented x3, mood and affect normal. Results CBC & Chem 7: 04/11/24 07:53 04/11/24 07:53 Labs: Abnormal Lab Results - Last 24 Hours (Table) 04/09/24 04/09/24 04/10/24 Range/Units 17:05 20:10 05:49 WBC 14.46 H (4.50-10.00) X 10*3/uL RBC 3.79 L (4.10-5.20) X 10*6/uL Hgb 11.2 L (12.0-15.0) g/dL Hct 36.0 L (37.2-46.3) % MCHC 31.1 L (32.0-37.0) g/dL Immature Gran # 0.31 H (0.00-0.04) X 10*3/uL Neutrophils # 12.94 H (1.80-7.70) X 10*3/uL Lymphocytes # 0.69 L (0.90-5.00) X 10*3/uL Eosinophils # 0 L (0.04-0.35) X 10*3/uL Anion Gap (4.00-12.00) mmol/L BUN/Creatinine Ratio (12.00-20.00) Ratio Glucose (70-110) mg/dL POC Glucose (mg/dL) 222 H 294 H (70-110) mg/dL 04/10/24 04/10/24 04/10/24 Range/Units 05:49 07:06 11:34 WBC (4.50-10.00) X 10*3/uL RBC (4.10-5.20) X 10*6/uL Hgb (12.0-15.0) g/dL Hct (37.2-46.3) % MCHC (32.0-37.0) g/dL Immature Gran # (0.00-0.04) X 10*3/uL Neutrophils # (1.80-7.70) X 10*3/uL Lymphocytes # (0.90-5.00) X 10*3/uL Eosinophils # (0.04-0.35) X 10*3/uL Anion Gap 12.60 H (4.00-12.00) mmol/L BUN/Creatinine Ratio 32.62 H (12.00-20.00) Ratio Glucose 234 H (70-110) mg/dL POC Glucose (mg/dL) 223 H 283 H (70-110) mg/dL 04/10/24 Range/Units 12:14 WBC (4.50-10.00) X 10*3/uL RBC (4.10-5.20) X 10*6/uL Hgb (12.0-15.0) g/dL Hct (37.2-46.3) % MCHC (32.0-37.0) g/dL Immature Gran # (0.00-0.04) X 10*3/uL Neutrophils # (1.80-7.70) X 10*3/uL Lymphocytes # (0.90-5.00) X 10*3/uL Eosinophils # (0.04-0.35) X 10*3/uL Anion Gap (4.00-12.00) mmol/L BUN/Creatinine Ratio (12.00-20.00) Ratio Glucose (70-110) mg/dL POC Glucose (mg/dL) 287 H (70-110) mg/dL Assessment and Plan (1) Thrush Current Visit: Yes Status: Acute Code(s): B37.0 - CANDIDAL STOMATITIS SNOMED Code(s): 21291066 (2) Pneumonia Current Visit: Yes Status: Acute Code(s): J18.9 - PNEUMONIA, UNSPECIFIED ORGANISM SNOMED Code(s): 626502501 (3) Leukocytosis Current Visit: No Status: Acute Code(s): D72.829 - ELEVATED WHITE BLOOD CELL COUNT, UNSPECIFIED SNOMED Code(s): 082544842 Plan: 1patient presented to hospital with increasing shortness of breath and this patient noted to have a history of COPD and concerning for possible malignancy as the patient did have multiple nodules however the patient has been considered to be high risk for any surgical intervention or bronchoscopy by pulmonary and has been advised radiation treatment now with the current symptom possible r elated to COPD exacerbation with tracheobronchitis, pneumonia less likely but not entirely excluded. 2patient did have elevated white count could be related to the steroids plus minus a component of thrush 3we will try to obtain a sputum for Gram stain culture and repeat a procalcitonin level. 4add nystatin swish and swallow. And continue with Zosyn for now 5we will repeat her CBC and extremity markers with a.m. We will follow on clinical condition and cultures to further adjust medication if needed Thank you for this consultation we will follow the patient along with you Dictation was produced using [employer] dictation software. please excuse any grammatical, word or spelling errors. Time with Patient: Less than 30
[2024-04-11 07:25] LABS: Glucose,Whole Blood 98 mg/dL (70-110)
[2024-04-11] MEDS: NYSTATIN 100,000 UNIT/ML SUSP 500,000 UNIT/5 ML CUP PO SCH (08:41)
[2024-04-11 10:54] LABS: ALT 21 U/L (8-44); AST 25 U/L (13-35); Albumin/Globulin Ratio 1.67 Ratio (1.60-3.17); Alkaline Phosphatase 73 U/L (41-126); BUN/Creat Ratio 32.78 Ratio (12.00-20.00); Blood Urea Nitrogen 29.5 mg/dL (9.0-27.0); Calcium 10.2 mg/dL (8.7-10.3); Chloride 99 mmol/L (96-109); Globulin 2.4 g/dL (1.6-3.3); Glucose 93 mg/dL (70-110); Potassium 4.2 mmol/L (3.5-5.5); Sodium 142 mmol/L (135-145); Total Bilirubin 0.2 mg/dL (0.3-1.2); Total Protein 6.4 g/dL (6.2-8.2)
--- NOTE | 2024-04-11 11:06 | PN ---
PROGRESS NOTE DATE OF SERVICE: 04/10/2024 SUBJECTIVE: This is an 83-year-old woman, who was admitted with COPD, acute exacerbation as well as right lower lobe pneumonia, possibly gram-negative, is complaining of shaking chills at this time. I have repeated a chest x-ray, which showed bilateral lung opacities. White count is 14.46. The glucose is also elevated. PAST MEDICAL HISTORY: Reviewed. REVIEW OF SYSTEMS: Fourteen-point review of systems is negative. CURRENT MEDICATIONS: Reviewed, include: 1. DuoNeb. 2. Symbicort, dose and rest of medications reviewed. PHYSICAL EXAMINATION: VITAL SIGNS: Pulse is 71, blood pressure 115/65, respirations 18. HEENT: Conjunctivae normal. NECK: n CARDIOVASCULAR: S1 and S2. RESPIRATIONS: Breath sounds diminished at the bases. Scattered rhonchi. ABDOMEN: Soft LABORATORY DATA: Reviewed. ASSESSMENT: 1. Chronic obstructive pulmonary disease, acute exacerbation with right lower lobe pneumonia with possibly gram-negative with possible sepsis with slow improvement. 2. Elevated WBC. 3. Abnormal CAT scan of the chest, including spiculated nodule. 4. History of atrial fibrillation. 5. History of deep vein thrombosis. 6. Diabetes mellitus, type 2. 7. Multiple complex medical issues. PLAN: Recommend to continue current medications. Recommend change the antibiotics to initiate Zosyn. Obtain sputum cultures, blood culture, and I would also recommend Infectious Disease evaluation for possible sepsis. Guarded prognosis. Further recommendations to follow. MMODL / IJN: [id number] / MTDD
--- NOTE | 2024-04-11 12:10 | P.PN ---
Subjective Progress Note Date: 04/11/24 This is an 83-year-old female patient with a history of oxygen dependent chronic obstructive pulmonary disease, atrial fibrillation anticoagulated with Eliquis, congestive heart failure, anxiety, diabetes mellitus she also has a previous history of lung cancer with radiation treatment. She follows with Dr. Koch. He recent PET scan from January 2024 revealed enlarging 3 scattered FDG avid pulmonary nodules. Overall stable in size. Favored to represent metastasis in setting of prior lung cancer. There is a right lower lobe reticular scarring. No distant metastatic changes. She was aware of these findings and the recommendation from radiation oncology was for a follow-up PET scan in 4 months. She came to the emergency room yesterday with a 2 to 3-day history of increasing shortness of breath cough and congestion. She had some green productive sputum. No fever or chills. Chest x-ray reveals right lower lobe density. White count 14.2. Hemoglobin 12.7. Platelets 165. Sodium 133. Potassium 4.1. Bicarb 33. BUN 19. Creatinine 0.68. Glucose 136. Viral screen is negative. She was initiated on ceftriaxone and azithromycin. She is seen today in consultation in the emergency department. Currently resting on the stretcher. Awake and alert in no acute distress. Continues with a congested cough. The patient is seen today April 08, 2024 in follow-up on the regular medical floor. She is currently resting comfortably in bed. Awake and alert in no acute distress. Feeling quite a bit better today compared to yesterday. She is maintaining O2 saturations in the 90s on 2 L/min per nasal cannula. Procalcitonin 0.22. White count 8.9. Hemoglobin 11.8. Platelets 170. Sodium 136. Potassium 4.5. Bicarb 29. BUN 19. Creatinine 0.58. Glucose 173. X-ray revealed suspected scarring of the right lower lobe as noted on previous chest x-rays and CAT scan. She is being treated for tracheobronchitis. She remains on Rocephin and azithromycin along with DuoNeb inhalations, Symbicort, Solu- Medrol. Anticoagulated with Eliquis. The patient is seen today April 09, 2024 in follow-up on the regular medical floor. She is sitting up in bed. Awake and alert in no acute distress. Maintaining O2 saturations in the 90s on 2 L/min per nasal cannula. Complaints of pain in her right throat and congested cough. CT scan of the neck revealed no acute suspicious change use to account for right oropharynx pain. CT scan of the chest revealed a lobular nodule within the lateral left midlung and spiculated nodule within the anterior right midlung. Irregular masslike density posterior right lung. Some additional small nodules. Sodium 140. Potassium 4.5. Bicarb 26. BUN 21. Creatinine 0.7. Glucose 258. She remains on DuoNeb inhalations, Symbicort, Solu-Medrol. Anticoagulated with Eliquis. The patient is seen today April 10, 2024 in follow-up on the regular medical floor. She is sitting up in bed. Awake and alert in no acute distress. Maintaining O2 saturations in the high 90s on 2 L/min per nasal cannula. She is afebrile. Hemodynamically stable. White count 14.4. Hemoglobin 11.2. Platelets 200. Sodium 139. Potassium 4.4. Bicarb 28. BUN 26. Creatinine 0.8. Glucose 234. She is continued on DuoNeb and elations, Symbicort, Solu- Medrol. Tessalon Perles for her cough. Anticoagulated with Eliquis. The patient is seen today April 11, 2024 in follow-up on the regular medical floor. She is awake and alert in no acute distress. Doing much better. Feeling back to her baseline. Maintaining good O2 saturations in the upper 90s on 2 L/min per nasal cannula. She is continued on DuoNeb and elations, Symbicort, prednisone taper. Anticoagulated with Eliquis. Tessalon Perles for her cough. Procalcitonin again was negative at 0.06. Antibiotics were discontinued. Sodium 142. Potassium 4.2. Bicarb 30. BUN 29. Creatinine 0.9. Objective - Vital Signs Vital signs: Vital Signs Temp 98.5 F 04/11/24 07:25 Pulse 64 04/11/24 09:27 Resp 15 04/11/24 07:25 BP 189/98 04/11/24 07:25 Pulse Ox 99 04/11/24 09:15 FiO2 Intake & Output 04/10/24 04/11/24 04/11/24 18:59 06:59 18:59 Intake Total 1080 240 716 Output Total 4 Balance 1076 240 716 Intake: Oral 1080 240 716 Output: Stool 4 Other: Voiding Method Toilet Toilet # Voids 1 - Exam GENERAL EXAM: Alert, pleasant 83-year-old female, sitting up in bed, on 2 L nasal cannula, in no apparent distress. HEAD: Normocephalic. EYES: Normal reaction of pupils, equal size. NOSE: Clear with pink turbinates. THROAT: No erythema or exudates. NECK: No masses, no JVD. CHEST: No chest wall deformity. LUNGS: Equal air entry with bilateral scattered rhonchi, diminished. CVS: S1 and S2 normal with no audible murmur, regular rhythm. ABDOMEN: No hepatosplenomegaly, normal bowel sounds, no guarding or rigidity. SPINE: No scoliosis or deformity SKIN: No rashes CENTRAL NERVOUS SYSTEM: No focal deficits, tone is normal in all 4 extremities. EXTREMITIES: There is no peripheral edema. No clubbing, no cyanosis. Peripheral pulses are intact. - Labs CBC & Chem 7: 04/10/24 05:49 04/11/24 07:53 Labs: Abnormal Lab Results - Last 24 Hours (Table) 04/10/24 04/10/24 04/10/24 Range/Units 12:14 17:09 20:28 Anion Gap (4.00-12.00) mmol/L BUN (9.0-27.0) mg/dL BUN/Creatinine Ratio (12.00-20.00) Ratio POC Glucose (mg/dL) 287 H 196 H 198 H (70-110) mg/dL Total Bilirubin (0.3-1.2) mg/dL C-Reactive Protein (0.00-0.80) mg/dL 04/11/24 Range/Units 07:53 Anion Gap 13.00 H (4.00-12.00) mmol/L BUN 29.5 H (9.0-27.0) mg/dL BUN/Creatinine Ratio 32.78 H (12.00-20.00) Ratio POC Glucose (mg/dL) (70-110) mg/dL Total Bilirubin 0.2 L (0.3-1.2) mg/dL C-Reactive Protein 3.20 H (0.00-0.80) mg/dL Assessment and Plan Assessment: Acute on chronic hypoxemic respiratory failure secondary to acute exacerbation of chronic obstructive pulmonary disease. Viral screen negative. Procalcitonin negative x 2 History of oxygen dependent chronic obstructive pulmonary disease Former smoker Right sided neck pain. CT scan of the neck revealed no acute suspicious change use to account for right oropharynx pain History of previous lung cancer status post radiation with new pulmonary nodules being followed in the outpatient setting. CT scan of the chest revealed a lobular nodule within the lateral left midlung and spiculated nodule within the anterior right midlung. Irregular masslike density posterior right lung. Some additional small nodules. Chronic atrial fibrillation, anticoagulated with Eliquis Hypertension Hyperlipidemia Diabetes mellitus History of anxiety History of DVT History of CVA Coronary artery disease with previous stent placement History of peripheral vascular disease with previous stent placement Status post permanent pacemaker implantation Plan: The patient was seen and evaluated Labs and medications reviewed Cleared for discharge from the pulmonary standpoint Continue her home Trelegy, DuoNeb inhalations Complete a prednisone taper Follow-up in our office in 1 week Keep her appointment with radiation oncology as scheduled This patient was seen independently by the pulmonary nurse practitioner addressing pulmonary issues I have personally seen and examined the patient, performed the documentation and the assessment and plan as written. Number of minutes spent on the visit: 23 Dictation was produced using [employer] dictation software. Please excuse any grammatical, word or spelling errors.
[2024-04-11 12:19] LABS: Glucose,Whole Blood 199 mg/dL (70-110)
[2024-04-11 13:52] LABS: Basophils # (M) 0 X 10*3/uL (0.00-0.10); Eosinophils # (M) 0 X 10*3/uL (0.04-0.35); HCT 41.1 % (37.2-46.3); HGB 12.7 g/dL (12.0-15.0); Lymphocytes # (M) 1.71 X 10*3/uL (0.90-5.00); MCH 29.3 pg (27.0-32.0); MCHC 30.9 g/dL (32.0-37.0); MCV 94.9 FL (80.0-97.0); Mean Platelet Volume 11.4 FL (9.5-12.2); Myelocytes % 2 % (0-0); NRBC Per 100 WBC 0 X 10*3/uL (0.00-0.01); Neutrophils # (M) 12.13 X 10*3/uL (1.80-7.70); Neutrophils % (M) 78 %; Platelet Count 202 X 10*3/uL (140-440); RBC 4.33 X 10*6/uL (4.10-5.20); RDW 13.2 % (11.5-14.5); WBC 15.55 X 10*3/uL (4.50-10.00)
[2024-04-11] MEDS: ZINC OXIDE PASTE (Z-GUARD) 1 APPLIC TOPICAL PRN (14:43)
[2024-04-11 17:25] LABS: Glucose,Whole Blood 193 mg/dL (70-110)
[2024-04-11 20:27] LABS: Glucose,Whole Blood 218 mg/dL (70-110)
[2024-04-12 07:12] LABS: Glucose,Whole Blood 89 mg/dL (70-110)
--- NOTE | 2024-04-12 08:49 | P.PN ---
Subjective Progress Note Date: 04/11/24 Principal diagnosis: Reason for follow-up is leukocytosis/thrush Patient is a 83-year-old female with a past medical history significant for COPD CVA TIA diabetes mellitus hypertension hyperlipidemia osteoarthritis atrial fibrillation and lung cancer patient presenting to the hospital for evaluation of increasing shortness of breath, and this patient has been diagnosed with COPD exacerbation, ID consulted because of worsening white count and concern for possible sepsis. On today's evaluation that is 04/11/2024,the patient remains to be afebrile, patient is on room air not requiring supplemental oxygen however is complaining of shortness of breath no chest pain or any worsening cough.Patient denies having any nausea or vomiting, no abdominal pain and no diarrhea has been reported. Mention not feeling that good today. Patient white count is 15.55 creatinine 0.9 blood cultures are pending Objective - Vital Signs Vital signs: Vital Signs Temp 97.9 F 04/11/24 12:40 Pulse 57 L 04/11/24 12:40 Resp 16 04/11/24 12:40 BP 147/65 04/11/24 12:40 Pulse Ox 96 04/11/24 12:40 FiO2 Intake & Output 04/10/24 04/11/24 04/11/24 18:59 06:59 18:59 Intake Total 4751 463 0711 Output Total 4 Balance 2013 526 4844 Intake: Oral 0813 631 4288 Output: Stool 4 Other: Voiding Method Toilet Toilet # Voids 1 - Exam GENERAL DESCRIPTION: An elderly female lying in bed in no distress RESPIRATORY SYSTEM: Unlabored breathing , decreased intensity of breath sounds, no wheeze HEART: S1 S2 regular rate and rhythm , ABDOMEN: Soft , no tenderness EXTREMITIES: No edema feet - Labs CBC & Chem 7: 04/11/24 07:53 04/11/24 07:53 Labs: Abnormal Lab Results - Last 24 Hours (Table) 04/10/24 04/10/24 04/11/24 Range/Units 17:09 20:28 07:53 Anion Gap 13.00 H (4.00-12.00) mmol/L BUN 29.5 H (9.0-27.0) mg/dL BUN/Creatinine Ratio 32.78 H (12.00-20.00) Ratio POC Glucose (mg/dL) 196 H 198 H (70-110) mg/dL Total Bilirubin 0.2 L (0.3-1.2) mg/dL C-Reactive Protein 3.20 H (0.00-0.80) mg/dL 04/11/24 Range/Units 12:18 Anion Gap (4.00-12.00) mmol/L BUN (9.0-27.0) mg/dL BUN/Creatinine Ratio (12.00-20.00) Ratio POC Glucose (mg/dL) 199 H (70-110) mg/dL Total Bilirubin (0.3-1.2) mg/dL C-Reactive Protein (0.00-0.80) mg/dL Assessment and Plan (1) Thrush Current Visit: Yes Status: Acute Code(s): B37.0 - CANDIDAL STOMATITIS SNOMED Code(s): 55145098 (2) Pneumonia Current Visit: Yes Status: Acute Code(s): J18.9 - PNEUMONIA, UNSPECIFIED ORGANISM SNOMED Code(s): 301134337 (3) Leukocytosis Current Visit: No Status: Acute Code(s): D72.829 - ELEVATED WHITE BLOOD CELL COUNT, UNSPECIFIED SNOMED Code(s): 500807148 Plan: 1patient presented to hospital with increasing shortness of breath and this patient noted to have a history of COPD and concerning for possible malignancy as the patient did have multiple nodules however the patient has been considered to be high risk for any surgical intervention or bronchoscopy by pulmonary and has been advised radiation treatment now with the current symptom possible related to COPD exacerbation with tracheobronchitis, pneumonia less likely. 2patient did have elevated white count could be related to the steroids plus minus a component of thrush 3sputum culture requested but not completed repeat procalcitonin is normal as well 4patient to continue with nystatin swish and swallow and Zosyn transition to short course of oral antibiotic on discharge Dictation was produced using [employer] dictation software. please excuse any grammatical, word or spelling errors.
[2024-04-12 09:47] LABS: BUN/Creat Ratio 45.86 Ratio (12.00-20.00); Blood Urea Nitrogen 32.1 mg/dL (9.0-27.0); Calcium 9.6 mg/dL (8.7-10.3); Carbon Dioxide 31.8 mmol/L (21.6-31.8); Chloride 98 mmol/L (96-109); Glucose 140 mg/dL (70-110); Potassium 4.2 mmol/L (3.5-5.5); Sodium 140 mmol/L (135-145)
--- NOTE | 2024-04-12 09:53 | PN ---
PROGRESS NOTE DATE OF SERVICE: 04/11/2024 SUBJECTIVE: This is an 83-year-old woman who was admitted with COPD acute exacerbation, also had pneumonia. The patient also had features of sepsis yesterday. The patient was started on IV antibiotics. Multiple consultants are following the patient closely. She is on broad spectrum IV antibiotics. Cultures are pending at this time. PAST MEDICAL HISTORY: Reviewed. REVIEW OF SYSTEMS: A 14-point review of systems is negative except as mentioned earlier. Otherwise, the patient complains of extreme weakness. CURRENT MEDICATIONS: Reviewed. PHYSICAL EXAMINATION: VITAL SIGNS: Pulse is 57, blood pressure 147/64, respirations 16. CHEST: A few scattered rhonchi and crackles. ABDOMEN: Soft. NERVOUS SYSTEM: Nonfocal. LABORATORY DATA: Reviewed. ASSESSMENT: 1. Chronic obstructive pulmonary disease acute exacerbation with right lower lobe pneumonia with possibly gram-negative with possible sepsis with slow improvement. 2. Elevated WBC. 3. Abnormal CAT scan with spiculated nodule, chronically on event monitoring for possible radiation treatment. 4. Gait dysfunction, severe. 5. History of atrial fibrillation. 6. History of deep venous thrombosis. 7. Diabetes mellitus, type 2. 8. Multiple complex medical issues. RECOMMENDATIONS AND DISCUSSION: Recommend to continue current management and continue symptomatic treatment. Otherwise, at this time, I recommend continue the antibiotics. Follow the cultures. PT, OT evaluation. Monitor blood sugars closely. DVT prophylaxis. Prognosis guarded. Repeat labs. Possible ECF rehab. Further recommendations to follow. MMODL / IJN: [id number] /
--- NOTE | 2024-04-12 11:34 | P.PN ---
Subjective Progress Note Date: 04/12/24 This is an 83-year-old female patient with a history of oxygen dependent chronic obstructive pulmonary disease, atrial fibrillation anticoagulated with Eliquis, congestive heart failure, anxiety, diabetes mellitus she also has a previous history of lung cancer with radiation treatment. She follows with Dr. Koch. He recent PET scan from January 2024 revealed enlarging 3 scattered FDG avid pulmonary nodules. Overall stable in size. Favored to represent metastasis in setting of prior lung cancer. There is a right lower lobe reticular scarring. No distant metastatic changes. She was aware of these findings and the recommendation from radiation oncology was for a follow-up PET scan in 4 months. She came to the emergency room yesterday with a 2 to 3-day history of increasing shortness of breath cough and congestion. She had some green productive sputum. No fever or chills. Chest x-ray reveals right lower lobe density. White count 14.2. Hemoglobin 12.7. Platelets 165. Sodium 133. Potassium 4.1. Bicarb 33. BUN 19. Creatinine 0.68. Glucose 136. Viral screen is negative. She was initiated on ceftriaxone and azithromycin. She is seen today in consultation in the emergency department. Currently resting on the stretcher. Awake and alert in no acute distress. Continues with a congested cough. The patient is seen today April 08, 2024 in follow-up on the regular medical floor. She is currently resting comfortably in bed. Awake and alert in no acute distress. Feeling quite a bit better today compared to yesterday. She is maintaining O2 saturations in the 90s on 2 L/min per nasal cannula. Procalcitonin 0.22. White count 8.9. Hemoglobin 11.8. Platelets 170. Sodium 136. Potassium 4.5. Bicarb 29. BUN 19. Creatinine 0.58. Glucose 173. X-ray revealed suspected scarring of the right lower lobe as noted on previous chest x-rays and CAT scan. She is being treated for tracheobronchitis. She remains on Rocephin and azithromycin along with DuoNeb inhalations, Symbicort, Solu- Medrol. Anticoagulated with Eliquis. The patient is seen today April 09, 2024 in follow-up on the regular medical floor. She is sitting up in bed. Awake and alert in no acute distress. Maintaining O2 saturations in the 90s on 2 L/min per nasal cannula. Complaints of pain in her right throat and congested cough. CT scan of the neck revealed no acute suspicious change use to account for right oropharynx pain. CT scan of the chest revealed a lobular nodule within the lateral left midlung and spiculated nodule within the anterior right midlung. Irregular masslike density posterior right lung. Some additional small nodules. Sodium 140. Potassium 4.5. Bicarb 26. BUN 21. Creatinine 0.7. Glucose 258. She remains on DuoNeb inhalations, Symbicort, Solu-Medrol. Anticoagulated with Eliquis. The patient is seen today April 10, 2024 in follow-up on the regular medical floor. She is sitting up in bed. Awake and alert in no acute distress. Maintaining O2 saturations in the high 90s on 2 L/min per nasal cannula. She is afebrile. Hemodynamically stable. White count 14.4. Hemoglobin 11.2. Platelets 200. Sodium 139. Potassium 4.4. Bicarb 28. BUN 26. Creatinine 0.8. Glucose 234. She is continued on DuoNeb and elations, Symbicort, Solu- Medrol. Tessalon Perles for her cough. Anticoagulated with Eliquis. The patient is seen today April 11, 2024 in follow-up on the regular medical floor. She is awake and alert in no acute distress. Doing much better. Feeling back to her baseline. Maintaining good O2 saturations in the upper 90s on 2 L/min per nasal cannula. She is continued on DuoNeb and elations, Symbicort, prednisone taper. Anticoagulated with Eliquis. Tessalon Perles for her cough. Procalcitonin again was negative at 0.06. Antibiotics were discontinued. Sodium 142. Potassium 4.2. Bicarb 30. BUN 29. Creatinine 0.9. The patient is seen today April 12, 2024 in follow-up on the regular medical floor. She is sitting up in bed. Awake and alert in no acute distress. Maintaining O2 saturations in the mid 90s on 0.5 L/min per nasal cannula. She is afebrile. Hemodynamically stable. Blood cultures revealed no growth. Procalcitonin negative x 2. Sodium 140. Potassium 4.2. Bicarb 32. BUN 32. Creatinine 0.7. Glucose 140. She is continued on DuoNeb inhalations, Symbicort, prednisone taper. Anticoagulated with Eliquis. Objective - Vital Signs Vital signs: Vital Signs Temp 97.9 F 04/12/24 10:20 Pulse 67 04/12/24 10:20 Resp 16 04/12/24 10:20 BP 171/69 04/12/24 10:20 Pulse Ox 96 04/12/24 10:20 FiO2 Intake & Output 04/11/24 04/12/24 04/12/24 18:59 06:59 18:59 Intake Total 4016 222 712 Balance 4016 222 712 Intake: Oral 4016 222 712 Other: Voiding Method Toilet Toilet # Voids 6 1 # Bowel Movements 1 - Exam GENERAL EXAM: Alert, pleasant 83-year-old female, on 0.5 L nasal cannula, comfortable in no apparent distress. HEAD: Normocephalic. EYES: Normal reaction of pupils, equal size. NOSE: Clear with pink turbinates. THROAT: No erythema or exudates. NECK: No masses, no JVD. CHEST: No chest wall deformity. LUNGS: Equal air entry with bilateral scattered rhonchi, diminished. CVS: S1 and S2 normal with no audible murmur, regular rhythm. ABDOMEN: No hepatosplenomegaly, normal bowel sounds, no guarding or rigidity. SPINE: No scoliosis or deformity SKIN: No rashes CENTRAL NERVOUS SYSTEM: No focal deficits, tone is normal in all 4 extremities. EXTREMITIES: There is no peripheral edema. No clubbing, no cyanosis. Peripheral pulses are intact. - Labs CBC & Chem 7: 04/11/24 07:53 04/12/24 04:33 Labs: Abnormal Lab Results - Last 24 Hours (Table) 04/11/24 04/11/24 04/11/24 Range/Units 07:53 12:18 17:23 WBC 15.55 H (4.50-10.00) X 10*3/uL MCHC 30.9 L (32.0-37.0) g/dL Neutrophils # (Manual) 12.13 H (1.80-7.70) X 10*3/uL Monocytes # (Manual) 1.40 H (0.20-1.00) X 10*3/uL Eosinophils # (Manual) 0 L (0.04-0.35) X 10*3/uL BUN (9.0-27.0) mg/dL BUN/Creatinine Ratio (12.00-20.00) Ratio Glucose (70-110) mg/dL POC Glucose (mg/dL) 199 H 193 H (70-110) mg/dL 04/11/24 04/12/24 Range/Units 20:25 04:33 WBC (4.50-10.00) X 10*3/uL MCHC (32.0-37.0) g/dL Neutrophils # (Manual) (1.80-7.70) X 10*3/uL Monocytes # (Manual) (0.20-1.00) X 10*3/uL Eosinophils # (Manual) (0.04-0.35) X 10*3/uL BUN 32.1 H (9.0-27.0) mg/dL BUN/Creatinine Ratio 45.86 H (12.00-20.00) Ratio Glucose 140 H (70-110) mg/dL POC Glucose (mg/dL) 218 H (70-110) mg/dL Microbiology - Last 24 Hours (Table) 04/10/24 13:53 Blood Culture - Preliminary Blood Assessment and Plan Assessment: Acute on chronic hypoxemic respiratory failure secondary to acute exacerbation of chronic obstructive pulmonary disease. Viral screen negative. Procalcitonin negative x 2 History of oxygen dependent chronic obstructive pulmonary disease Former smoker Right sided neck pain. CT scan of the neck revealed no acute suspicious change use to account for right oropharynx pain History of previous lung cancer status post radiation with new pulmonary nodules being followed in the outpatient setting. CT scan of the chest revealed a lobular nodule within the lateral left midlung and spiculated nodule within the anterior right midlung. Irregular masslike density posterior right lung. Some additional small nodules. Chronic atrial fibrillation, anticoagulated with Eliquis Hypertension Hyperlipidemia Diabetes mellitus History of anxiety History of DVT History of CVA Coronary artery disease with previous stent placement History of peripheral vascular disease with previous stent placement Status post permanent pacemaker implantation Plan: The patient was seen and evaluated Labs and medications reviewed Cleared for discharge Continue her home Trelegy, DuoNeb inhalations Complete a prednisone taper Procalcitonin negative x 2 Blood cultures revealed no growth Follow-up in our office in 1 week Keep her appointment with radiation oncology as scheduled This patient was seen independently by the pulmonary nurse practitioner addressing pulmonary issues I have personally seen and examined the patient, performed the documentation and the assessment and plan as written. Number of minutes spent on the visit: 24 Dictation was produced using [employer] dictation software. Please excuse any grammatical, word or spelling errors.
[2024-04-12 12:22] LABS: Glucose,Whole Blood 160 mg/dL (70-110)
[2024-04-12 12:39] LABS: Basophils # (M) 0 X 10*3/uL (0.00-0.10); Elliptocytes 2+; Eosinophils # (M) 0 X 10*3/uL (0.04-0.35); HCT 35.6 % (37.2-46.3); HGB 11.1 g/dL (12.0-15.0); Lymphocytes # (M) 2.14 X 10*3/uL (0.90-5.00); MCH 29.4 pg (27.0-32.0); MCHC 31.2 g/dL (32.0-37.0); MCV 94.2 FL (80.0-97.0); Mean Platelet Volume 11.3 FL (9.5-12.2); Monocytes # (M) 0.67 X 10*3/uL (0.20-1.00); Myelocytes % 2 % (0-0); NRBC Per 100 WBC 0 X 10*3/uL (0.00-0.01); Neutrophils % (M) 77 %; Platelet Count 181 X 10*3/uL (140-440); RBC 3.78 X 10*6/uL (4.10-5.20); RDW 13.3 % (11.5-14.5); WBC 13.38 X 10*3/uL (4.50-10.00)
--- NOTE | 2024-04-12 14:49 | P.PN ---
Subjective Progress Note Date: 04/12/24 Principal diagnosis: Reason for follow-up is leukocytosis/thrush Patient is a 83-year-old female with a past medical history significant for COPD CVA TIA diabetes mellitus hypertension hyperlipidemia osteoarthritis atrial fibrillation and lung cancer patient presenting to the hospital for evaluation of increasing shortness of breath, and this patient has been diagnosed with COPD exacerbation, ID consulted because of worsening white count and concern for possible sepsis. On today's evaluation that is 04/12/2024, the patient continues to be afebrile, the patient is on room air and breathing slightly comfortably, the Pt denies having any chest pain continue have a cough but not bringing up any sputum, the patient denies having any abdominal pain no vomiting or any diarrhea has been reported by the nursing staff. Patient white count is down to 13.38, creatinine 0.7 Objective - Vital Signs Vital signs: Vital Signs Temp 98.0 F 04/12/24 13:59 Pulse 64 04/12/24 13:59 Resp 16 04/12/24 13:59 BP 151/62 04/12/24 13:59 Pulse Ox 97 04/12/24 13:11 FiO2 Intake & Output 04/11/24 04/12/24 04/12/24 18:59 06:59 18:59 Intake Total 4016 222 1424 Balance 4016 222 1424 Intake: Oral 4016 222 1424 Other: Voiding Method Toilet Toilet Toilet # Voids 6 1 # Bowel Movements 1 - Exam GENERAL DESCRIPTION: An elderly female lying in bed in no distress RESPIRATORY SYSTEM: Unlabored breathing , decreased intensity of breath sounds, no wheeze HEART: S1 S2 regular rate and rhythm , ABDOMEN: Soft , no tenderness EXTREMITIES: No edema feet - Labs CBC & Chem 7: 04/12/24 04:33 04/12/24 04:33 Labs: Abnormal Lab Results - Last 24 Hours (Table) 04/11/24 04/11/24 04/12/24 Range/Units 17:23 20:25 04:33 WBC 13.38 H (4.50-10.00) X 10*3/uL RBC 3.78 L (4.10-5.20) X 10*6/uL Hgb 11.1 L (12.0-15.0) g/dL Hct 35.6 L (37.2-46.3) % MCHC 31.2 L (32.0-37.0) g/dL Neutrophils # (Manual) 10.30 H (1.80-7.70) X 10*3/uL Eosinophils # (Manual) 0 L (0.04-0.35) X 10*3/uL Elliptocytes 2+ A BUN (9.0-27.0) mg/dL BUN/Creatinine Ratio (12.00-20.00) Ratio Glucose (70-110) mg/dL POC Glucose (mg/dL) 193 H 218 H (70-110) mg/dL 04/12/24 04/12/24 Range/Units 04:33 12:20 WBC (4.50-10.00) X 10*3/uL RBC (4.10-5.20) X 10*6/uL Hgb (12.0-15.0) g/dL Hct (37.2-46.3) % MCHC (32.0-37.0) g/dL Neutrophils # (Manual) (1.80-7.70) X 10*3/uL Eosinophils # (Manual) (0.04-0.35) X 10*3/uL Elliptocytes BUN 32.1 H (9.0-27.0) mg/dL BUN/Creatinine Ratio 45.86 H (12.00-20.00) Ratio Glucose 140 H (70-110) mg/dL POC Glucose (mg/dL) 160 H (70-110) mg/dL Microbiology - Last 24 Hours (Table) 04/10/24 13:53 Blood Culture - Preliminary Blood Assessment and Plan (1) Thrush Current Visit: Yes Status: Acute Code(s): B37.0 - CANDIDAL STOMATITIS SNOMED Code(s): 97504987 (2) Pneumonia Current Visit: Yes Status: Acute Code(s): J18.9 - PNEUMONIA, UNSPECIFIED ORGANISM SNOMED Code(s): 063349631 (3) Leukocytosis Current Visit: No Status: Acute Code(s): D72.829 - ELEVATED WHITE BLOOD CELL COUNT, UNSPECIFIED SNOMED Code(s): 165014936 Plan: 1patient presented to hospital with increasing shortness of breath and this patient noted to have a history of COPD and concerning for possible malignancy as the patient did have multiple nodules however the patient has been considered to be high risk for any surgical intervention or bronchoscopy by pulmonary and has been advised radiation treatment now with the current symptom possible related to COPD exacerbation with tracheobronchitis, pneumonia less likely. 2patient did have elevated white count could be related to the steroids plus minus a component of thrush 3sputum culture requested but not completed repeat procalcitonin is normal as well 4patient to continue with nystatin swish and swallow Zosyn has been discontinued by pulmonary will watch closely off antibiotic Dictation was produced using [employer] dictation software. please excuse any grammatical, word or spelling errors. Time with Patient: Less than 30
--- NOTE | 2024-04-12 16:30 | P.CONS ---
History of Present Illness - Reason for Consult Consult date: 04/12/24 lung carcinoma, progressive disease Requesting physician: Samara Pack - Chief Complaint cough, SOB - History of Present Illness Mrs. Hercules is a pleasant 83-year-old female patient who saw Dr. 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 In her past medical history it is reported that she was diagnosed with an early stage non-small cell lung cancer in 2011 in [place] and had radiation at that time. She had a CAT scan of the chest and a bone scan in March 2020 with no evidence of recurrence. She follows with her rn angiography Dr. Koch in regards to this history. Patient is currently admitted with suspicions for pneumonia. She states that she has had an increase in cough and shortness of breath the last mo or so, more recent onset of green sputum expectoration and chest congestion, no hemoptysis, denies fevers, night sweats, difficulty swallowing, no chest pain but, occasional tightness, no unusual weight loss, loss of appetite, unusual fatigue, acute changes in bowel or bladder habits, she does have some mild lower extremity swelling. Labs show mild neutrophilic leukocytosis, mild anemia brain CT without contrast was negative for any acute intracranial process CT of the neck and chest did not report any suspicious findings, chest x-ray reporting bilateral lung densities similar to comparison, RLL 2.6 cm density and a 1.6 cm nodular density in the left peripheral lung. Review of Systems 10 point review of systems is negative except as stated in HPI Past Medical History Past Medical History: Atrial Fibrillation, Cancer, Heart Failure, COPD, CVA/TIA, Diabetes Mellitus, Deep Vein Thrombosis (DVT), Fibromyalgia, GERD/Reflux, Hyperlipidemia, Hypertension, Osteoarthritis (OA), Pneumonia, Sleep Apnea/CPAP/BIPAP, Vascular Disorder Additional Past Medical History / Comment(s): back pain , lung cancer-radiation opnly, HOME 02 2 LITERS N/C, BLOOD CLOT AFTER SX, CVA LT SIDE AFFECTED SINCE RESOLVED, HIATAL HERNIA. SHINGLES 30 YEARS AGO, DOES'NT USE CPAP MACHINE.in past for short period of time took oral meds for dm-then taken off meds-pt stated not considered diabetic now but occ will check bs., macular degeneration.past broken rt leg and lt wrist. Raynauds. Pt currently has 3 fractured ribs on the right that she has "had for years and will not heal". History of Any Multi-Drug Resistant Organisms: MRSA Year Discovered:: 09/25/16 MDRO Source:: BRONCH WASH Past Surgical History: Cholecystectomy, Heart Catheterization With Stent, Orthopedic Surgery Additional Past Surgical History / Comment(s): rt leg repaired after break-has pins, lt wrist-plate and screws. lung bx, stents tung groins. Past Anesthesia/Blood Transfusion Reactions: Family History of Problems w/ Anesthesia Additional Past Anesthesia/Blood Transfusion Reaction / Comm: daughter has diff waking after aa Date of Last Stent Placement:: unk Type of Cardiac Device: Permanent Pacemaker Device Placement Date:: 09/25/20 Past Psychological History: No Psychological Hx Reported Smoking Status: Former smoker Past Alcohol Use History: None Reported Past Drug Use History: None Reported - Past Family History Father Family Medical History: Congestive Heart Failure (CHF), COPD Additional Family Medical History / Comment(s): emphysema Mother Family Medical History: Cancer Medications and Allergies Home Medications Medication Instructions Recorded Confirmed Type Fluticasone/Umeclidin/Vilanter 1 puff INHALATION RT-DAILY 04/19/20 04/07/24 History [Trelegy Ellipta 100-62.5-25] Albuterol Sulfate [Albuterol 2 puff INHALATION RT-Q4H PRN 12/01/22 04/07/24 History Sulfate Hfa] Lidocaine 5% Patch [Lidoderm 5% 1 patch TOPICAL DAILY PRN 12/01/22 04/07/24 History Patch] Pantoprazole Sodium [Protonix] 20 mg PO DAILY 12/01/22 04/07/24 History amLODIPine [Norvasc] 5 mg PO DAILY #30 tab 12/02/22 04/07/24 Rx Ipratropium-Albuterol Nebulize 3 ml INHALATION RT-QID 06/27/23 04/07/24 History [Duoneb 0.5 mg-3 mg/3 ml Soln] Metoprolol Succinate (ER) [Toprol 50 mg PO BID 06/27/23 04/07/24 History XL] predniSONE 5 mg PO DIRECTED 06/27/23 04/07/24 History ALPRAZolam [Xanax] 0.5 mg PO BID PRN 04/07/24 04/07/24 History Apixaban [Eliquis] 5 mg PO BID 04/07/24 04/07/24 History Benzonatate [Tessalon Perle] 200 mg PO TID PRN 04/07/24 04/07/24 History Certravite-Antioxidant 18mg-400mcg 1 tab PO DAILY 04/07/24 04/07/24 History Cyanocobalamin (Vitamin B-12) 1,000 mcg PO DAILY 04/07/24 04/07/24 History [Vitamin B-12] DULoxetine HCL [Cymbalta] 60 mg PO DAILY 04/07/24 04/07/24 History Docusate [Colace] 100 mg PO HS PRN 04/07/24 04/07/24 History Doxycycline Monohydrate 100 mg PO BID 04/07/24 04/07/24 History Empagliflozin [Jardiance] 10 mg PO DAILY 04/07/24 04/07/24 History Lactulose 10 gm PO DAILY PRN 04/07/24 04/07/24 History Melatonin 10 mg PO HS PRN 04/07/24 04/07/24 History Mirtazapine [Remeron] 15 mg PO HS 04/07/24 04/07/24 History Pravastatin Sodium [Pravachol] 80 mg PO DAILY 04/07/24 04/07/24 History metFORMIN HCL ER [Glucophage XR] 500 mg PO W/SUPPER 04/07/24 04/07/24 History predniSONE 10 mg PO DIRECTED 04/07/24 04/07/24 History predniSONE [Deltasone] See Taper PO DIRECTED 04/07/24 04/07/24 History traMADol HCL 50 mg PO Q6H PRN 04/07/24 04/07/24 History Allergies Allergy/AdvReac Type Severity Reaction Status Date / Time No Known Allergies Allergy Verified 04/07/24 11:59 Physical Exam Vitals: Vital Signs Temp Pulse Pulse Resp BP Pulse Ox 04/12/24 10:20 97.9 F 67 16 171/69 96 04/12/24 09:51 80 04/12/24 09:40 76 97 04/12/24 07:12 97.8 F 69 16 142/69 96 04/12/24 01:54 97.8 F 62 14 152/50 96 04/11/24 20:24 80 04/11/24 20:14 84 04/11/24 20:00 98.4 F 85 12 134/73 98 04/11/24 16:03 60 04/11/24 15:52 62 04/11/24 12:40 97.9 F 66 57 L 16 147/65 96 04/11/24 12:28 64 Intake and Output 04/11/24 04/12/24 04/12/24 22:59 06:59 14:59 Intake Total 2802 712 Balance 2802 712 Intake: Oral 2802 712 Other: Voiding Method Toilet # Voids 1 # Bowel Movements 1 - Constitutional General appearance: average body habitus, cooperative, no acute distress - EENT Eyes: anicteric sclerae, EOMI ENT: hearing grossly normal, normal oropharynx - Neck Neck: no lymphadenopathy - Respiratory Respiratory: bilateral: diminished, other (Audible congestion) - Cardiovascular Rhythm: regular Heart sounds: normal: S1, S2 Abnormal Heart Sounds: no systolic murmur, no diastolic murmur, no rub, no S3 Gallop, no S4 Gallop, no click, no other leg Peripheral Edema: bilateral: None - Gastrointestinal General gastrointestinal: no absent bowel sounds, no decreased bowel sounds, no distended, no hepatomegaly, no hyperactive bowel sounds, normal bowel sounds, no organomegaly, no rigid, no scaphoid, soft, no splenomegaly, no tenderness, no umbilical hernia, no ventral hernia - Integumentary Integumentary: normal - Neurologic Neurologic: CNII-XII intact - Musculoskeletal Musculoskeletal: strength equal bilaterally - Psychiatric Psychiatric: A&O x's 3, appropriate affect, intact judgment & insight Results CBC & Chem 7: 04/12/24 04:33 04/12/24 04:33 Labs: Abnormal Lab Results - Last 24 Hours (Table) 04/11/24 04/11/24 04/11/24 Range/Units 07:53 07:53 12:18 WBC 15.55 H (4.50-10.00) X 10*3/uL MCHC 30.9 L (32.0-37.0) g/dL Neutrophils # (Manual) 12.13 H (1.80-7.70) X 10*3/uL Monocytes # (Manual) 1.40 H (0.20-1.00) X 10*3/uL Eosinophils # (Manual) 0 L (0.04-0.35) X 10*3/uL Anion Gap 13.00 H (4.00-12.00) mmol/L BUN 29.5 H (9.0-27.0) mg/dL BUN/Creatinine Ratio 32.78 H (12.00-20.00) Ratio Glucose (70-110) mg/dL POC Glucose (mg/dL) 199 H (70-110) mg/dL Total Bilirubin 0.2 L (0.3-1.2) mg/dL C-Reactive Protein 3.20 H (0.00-0.80) mg/dL 04/11/24 04/11/24 04/12/24 Range/Units 17:23 20:25 04:33 WBC (4.50-10.00) X 10*3/uL MCHC (32.0-37.0) g/dL Neutrophils # (Manual) (1.80-7.70) X 10*3/uL Monocytes # (Manual) (0.20-1.00) X 10*3/uL Eosinophils # (Manual) (0.04-0.35) X 10*3/uL Anion Gap (4.00-12.00) mmol/L BUN 32.1 H (9.0-27.0) mg/dL BUN/Creatinine Ratio 45.86 H (12.00-20.00) Ratio Glucose 140 H (70-110) mg/dL POC Glucose (mg/dL) 193 H 218 H (70-110) mg/dL Total Bilirubin (0.3-1.2) mg/dL C-Reactive Protein (0.00-0.80) mg/dL Microbiology - Last 24 Hours (Table) 04/10/24 13:53 Blood Culture - Preliminary Blood Chest x-ray: report reviewed CT scan - chest: report reviewed CT Scan - head: report reviewed Assessment and Plan (1) Pneumonia Current Visit: Yes Status: Acute Priority: High Code(s): J18.9 - PNEUMONIA, UNSPECIFIED ORGANISM SNOMED Code(s): 215693518 (2) Weakness Current Visit: Yes Status: Acute Priority: High Code(s): R53.1 - WEAKNESS SNOMED Code(s): 79196978 (3) Lung cancer Current Visit: Yes Status: Chronic Priority: High Code(s): C34.90 - MALIGNANT NEOPLASM OF UNSP PART OF UNSP BRONCHUS OR LUNG SNOMED Code(s): 501076510 Plan: History of lung cancer. -Original diagnosis was in 2011, treated with XRT only in [place]. -Recent PET scan in January reporting some slight increase in known pulm nodule size and FDG activity. Patient denies any constitutional symptoms. -Patient reports that her Survey Cad Technician said that her lungs are "not good enough to do a biopsy". It was discussed with patient for systemic treatment a biopsy is usually preferred but, liquid biopsy may be acceptable. Recommend dis cussing with her family if they would like to cont work up to see what treatment options are available. She was also discussed at a recent tumor board-recs for liquid Bx since not a good biopsy candidate. Will plan a follow-up for patient to see Dr. Patel when she is feeling better to discuss these other options -Agree with pulmonary treatment of patient's respiratory complaints including cough, chest congestion and green sputum. Patient reports she is doing better since admission. Doctor attests: I performed a history and physical examination of this patient, developed impression and plan of care. Discussed with dictator. I agree with dictators note, documented as a scribe.
[2024-04-12 17:07] LABS: Glucose,Whole Blood 281 mg/dL (70-110)
[2024-04-12 20:21] LABS: Glucose,Whole Blood 310 mg/dL (70-110)
[2024-04-13] MEDS: ALPRAZolam 0.25 MG TAB PO PRN (01:50)
--- NOTE | 2024-04-13 06:55 | PN ---
PROGRESS NOTE DATE OF SERVICE: 04/12/2024 SUBJECTIVE: This is an 83-year-old woman who was admitted with COPD acute exacerbation, pneumonia is improving significantly. The patient has complained of significant weakness. PT, OT to evaluate the patient closely. Cultures are negative. OBJECTIVE: VITAL SIGNS: Pulse is 72, blood pressure 180/62, respirations 16. CHEST: A few scattered rhonchi. ABDOMEN: Soft. NERVOUS SYSTEM: Diffusely weak. LABORATORY DATA: Reviewed. ASSESSMENT: 1. Chronic obstructive pulmonary disease acute exacerbation with right lower lobe pneumonia, possibly gram-negative with possible sepsis present on admission with slow improvement. 2. Elevated WBC. 3. Abnormal CAT scan with a spiculated nodule chronically on monitoring as an outpatient for possible radiation treatment. 4. Gait dysfunction, severe. 5. History of atrial fibrillation. 6. History of deep venous thrombosis. 7. Diabetes mellitus, type 2. 8. Multiple complex medical issues. RECOMMENDATIONS AND DISCUSSION: I recommend to continue the antibiotics. Repeat labs. I would also recommend to continue the PT, OT evaluation. Slab Worker to evaluate the patient to decide either home with PT, OT versus ECF rehab. Further recommendations to follow. MMODL / IJN: [id number] /
[2024-04-13 07:17] LABS: Glucose,Whole Blood 183 mg/dL (70-110)
[2024-04-13 08:58] LABS: Blood Urea Nitrogen 32.2 mg/dL (9.0-27.0); Calcium 9.9 mg/dL (8.7-10.3); Chloride 94 mmol/L (96-109); Glucose 159 mg/dL (70-110); Potassium 4.9 mmol/L (3.5-5.5); Sodium 138 mmol/L (135-145)
--- NOTE | 2024-04-13 09:28 | CDI ---
Documentation Clarification Form Date: 04/13/2024 From: Gail Head RN CCDS Phone: [phone] Admit Date: 04/06/2024 08:51:00 PM Patient Name: Jenni Hercules Visit Number: [id number] Discharge Date: ATTENTION: The Clinical Documentation Specialists (CDI) and [facility] Coding Staff appreciate your assistance in clarifying documentation. Please respond to the clarification below the line at the bottom and electronically sign. The CDI & [facility] Coding staff will review the response and follow-up if needed. Please note: Queries are made part of the Legal Health Record. If you have any questions, please contact the author of this message via ITS. Doctor/Provider: Samara Pack MD: Conflicting documentation has been found in the medical record. As attending physician, please provide clarification. 04/07 H&P, Assessment: "1. Chronic obstructive pulmonary disease acute exacerbation with right lower lobe pneumonia, possibly gram negative." 04/08 Pulmonology PN, Addendum: "breathing easier, less cough, less wheeze, less shortness of breath, patient is being treated for tracheobronchitis and COPD exacerbation." History/Risk Factors: 83-year-old female with a history of AFib, CHF, COPD who presented with increasing of shortness of breath Clinical Indicators: 04/06 Triage VS: 127/51, 98.7, 66, 22, 96% 2liters nasal cannula 04/06-04/13 Temperature max: 99.5 on 04/07 04/10 ID consult, Plan: "the current symptom possible related to COPD exacerbation with tracheobronchitis, pneumonia less likely but not entirely excluded." 04/12 Pulmonology PN, Assessment: "Acute on chronic hypoxemic respiratory failure secondary to acute exacerbation of chronic obstructive pulmonary disease. Viral screen negative. Procalcitonin negative x 2" 04/12 IM, Assessment: "1. Chronic obstructive pulmonary disease acute exacerbation with right lower lobe pneumonia, possibly gram-negative with possible sepsis present on admission with slow improvement." 04/06, 04/08-04/12: WBC: 14.2, 8.97, 15.93, 14.46, 15.55, 13.38 04/06 Lactic Acid: 1.3 04/11 C-Reactive Protein: 3.20 04/07, 04/10, 04/11 Procalcitonin: 0.22, 0.05, 0.06 04/06 Chest X Ray, Impression: "1. Right lower lobe airspace opacities. Correlate for pneumonia. 2. Right suprahilar nodular opacity as seen on prior PET/CT." 04/07 Chest X Ray, Impression: "1. Right lower lobe increased density within the lung field. Follow-up recommended." 04/08 CT Neck/Chest, Impression: 1. Lobular nodule within the lateral left mid lung and spiculated nodule within the anterior right mid lung. Irregular mass-like density posterior right lung. There are some additional small nodules. Consider metastasis." Treatment: Zithromax 500mg IV once 04/06 Zithromax 500mg oral daily 04/07-04/08 Rocephin 2gram IV [id number] 04/06-04/08 Zosyn 3.375gram IV [id number] 04/10-04/11 Please clarify which diagnosis is most appropriate: [ ] Acute COPD exacerbation with right lower lobe pneumonia [ ] Acute COPD exacerbation with tracheobronchitis [ ] Other (please specify) [ ] Unable to determine Acute COPD exacerbation with right lower lobe pneumonia MTDD
--- NOTE | 2024-04-13 09:40 | CDI ---
Documentation Clarification Form Date: 04/13/2024 From: Gail Head RN CCDS Phone: [phone] Admit Date: 04/06/2024 08:51:00 PM Patient Name: Jenni Hercules Visit Number: [id number] Discharge Date: ATTENTION: The Clinical Documentation Specialists (CDI) and [facility] Coding Staff appreciate your assistance in clarifying documentation. Please respond to the clarification below the line at the bottom and electronically sign. The CDI & [facility] Coding staff will review the response and follow-up if needed. Please note: Queries are made part of the Legal Health Record. If you have any questions, please contact the author of this message via ITS. Doctor/Provider: Samara Pack MD: Possible sepsis is documented in the IM progress note 04/10 and in subsequent notes which may lack sufficient clinical evidence/support in the medical record. Additional clarification is requested. History/Risk Factors: 83-year-old female with a history of AFib, CHF, COPD who presented with increasing of shortness of breath Clinical Indicators: 04/06 Triage VS: 127/51, 98.7, 66, 22, 96% 2liters nasal cannula 04/06-04/13 Temperature max: 99.5 on 04/07 04/10 IM PN, Assessment: "1. Chronic obstructive pulmonary disease, acute exacerbation with right lower lobe pneumonia, possibly gram-negative with possible sepsis with slow improvement." 04/12 IM PN, Assessment: "1. Chronic obstructive pulmonary disease acute exacerbation with right lower lobe pneumonia, possibly gram-negative with possible sepsis present on admission with slow improvement." 04/06, 04/08-04/12: WBC: 14.2, 8.97, 15.93, 14.46, 15.55, 13.38 04/06 Lactic Acid: 1.3 04/11 C-Reactive Protein: 3.20 04/07, 04/10, 04/11 Procalcitonin: 0.22, 0.05, 0.06 04/10 Blood Culture: No growth after 48 hours 04/06 Chest X Ray, Impression: "1. Right lower lobe airspace opacities. Correlate for pneumonia. 2. Right suprahilar nodular opacity as seen on prior PET/CT." 04/07 Chest X Ray, Impression: "1. Right lower lobe increased density within the lung field. Follow-up recommended." 04/08 CT Neck/Chest, Impression: 1. Lobular nodule within the lateral left mid lung and spiculated nodule within the anterior right mid lung. Irregular mass-like density posterior right lung. There are some additional small nodules. Consider metastasis." Treatment: Zithromax 500mg IV once 04/06 Zithromax 500mg oral daily 04/07-04/08 Rocephin 2gram IV [id number] 04/06-04/08 Zosyn 3.375gram IV [id number] 04/10-04/11 After work up and study, please clarify which diagnosis is most appropriate? [ ] Sepsis ruled out [ ] Sepsis treated prophylactically [ ] Sepsis is a valid diagnosis as evidence by the following: (Please add rationale): [ ] Other, please specify [ ] Unable to determine SIRS Criteria: 2 or more of the following may indicate SIRS Temperature < 96.8F (36C) or > 101.0F (38.3C) Heart Rate > 90 bpm Respiratory Rate > 20 breaths/min or PaCO2 < 32 mmHg White Blood Cell Count > 12,000 or < 4,000 cells/mm3 or > 10% bands Sepsis ruled out MTDD
[2024-04-13 09:59] LABS: Basophils # (M) 0 X 10*3/uL (0.00-0.10); Eosinophils # (M) 0 X 10*3/uL (0.04-0.35); HCT 39.2 % (37.2-46.3); HGB 12.5 g/dL (12.0-15.0); Lymphocytes # (M) 0.96 X 10*3/uL (0.90-5.00); MCH 29.3 pg (27.0-32.0); MCHC 31.9 g/dL (32.0-37.0); MCV 91.8 FL (80.0-97.0); Mean Platelet Volume 10.6 FL (9.5-12.2); Metamyelocytes % 1 % (0-0); Monocytes # (M) 0.96 X 10*3/uL (0.20-1.00); Myelocytes % 4 % (0-0); NRBC Per 100 WBC 0 X 10*3/uL (0.00-0.01); Neutrophils % (M) 81 %; Platelet Count 175 X 10*3/uL (140-440); Promyelocytes # (M) 0.32 k/uL (0); Promyelocytes % 2 %; RBC 4.27 X 10*6/uL (4.10-5.20); RDW 13.3 % (11.5-14.5); WBC 15.93 X 10*3/uL (4.50-10.00)
--- NOTE | 2024-04-13 12:13 | P.PN ---
Subjective Progress Note Date: 04/13/24 Principal diagnosis: Reason for follow-up is leukocytosis/thrush Patient is a 83-year-old female with a past medical history significant for COPD CVA TIA diabetes mellitus hypertension hyperlipidemia osteoarthritis atrial fibrillation and lung cancer patient presenting to the hospital for evaluation of increasing shortness of breath, and this patient has been diagnosed with COPD exacerbation, ID consulted because of worsening white count and concern for possible sepsis. On today's evaluation that is 04/13/2024, patient has been afebrile, patient is breathing slightly comfortably and is currently on r 2 L nasal oxygen, patient denies having any worsening cough or sputum production, no chest pain, patient denies nausea vomiting or diarrhea and no abdominal pain. Patient white count is up to 15.93 creatinine 0.7 Objective - Vital Signs Vital signs: Vital Signs Temp 98.3 F 04/13/24 08:15 Pulse 60 04/13/24 11:54 Resp 19 04/13/24 08:15 BP 151/71 04/13/24 08:15 Pulse Ox 99 04/13/24 08:49 FiO2 Intake & Output 04/12/24 04/13/24 04/13/24 18:59 06:59 18:59 Intake Total 4141 240 598 Balance 4141 240 598 Intake: Oral 4141 240 598 Other: Voiding Method Toilet Toilet Toilet # Voids 5 1 # Bowel Movements 1 - Exam GENERAL DESCRIPTION: An elderly female lying in bed in no distress RESPIRATORY SYSTEM: Unlabored breathing , decreased intensity of breath sounds, no wheeze HEART: S1 S2 regular rate and rhythm , ABDOMEN: Soft , no tenderness EXTREMITIES: No edema feet - Labs CBC & Chem 7: 04/13/24 04:25 04/13/24 04:25 Labs: Abnormal Lab Results - Last 24 Hours (Table) 04/12/24 04/12/24 04/12/24 Range/Units 04:33 12:20 17:06 WBC 13.38 H (4.50-10.00) X 10*3/uL RBC 3.78 L (4.10-5.20) X 10*6/uL Hgb 11.1 L (12.0-15.0) g/dL Hct 35.6 L (37.2-46.3) % MCHC 31.2 L (32.0-37.0) g/dL Neutrophils # (Manual) 10.30 H (1.80-7.70) X 10*3/uL Eosinophils # (Manual) 0 L (0.04-0.35) X 10*3/uL Elliptocytes 2+ A Chloride (96-109) mmol/L Carbon Dioxide (21.6-31.8) mmol/L BUN (9.0-27.0) mg/dL BUN/Creatinine Ratio (12.00-20.00) Ratio Glucose (70-110) mg/dL POC Glucose (mg/dL) 160 H 281 H (70-110) mg/dL 04/12/24 04/13/24 04/13/24 Range/Units 20:19 04:25 04:25 WBC 15.93 H (4.50-10.00) X 10*3/uL RBC (4.10-5.20) X 10*6/uL Hgb (12.0-15.0) g/dL Hct (37.2-46.3) % MCHC 31.9 L (32.0-37.0) g/dL Neutrophils # (Manual) 12.90 H (1.80-7.70) X 10*3/uL Eosinophils # (Manual) 0 L (0.04-0.35) X 10*3/uL Elliptocytes Chloride 94 L (96-109) mmol/L Carbon Dioxide 32.0 H (21.6-31.8) mmol/L BUN 32.2 H (9.0-27.0) mg/dL BUN/Creatinine Ratio 46.00 H (12.00-20.00) Ratio Glucose 159 H (70-110) mg/dL POC Glucose (mg/dL) 310 H (70-110) mg/dL 04/13/24 Range/Units 07:16 WBC (4.50-10.00) X 10*3/uL RBC (4.10-5.20) X 10*6/uL Hgb (12.0-15.0) g/dL Hct (37.2-46.3) % MCHC (32.0-37.0) g/dL Neutrophils # (Manual) (1.80-7.70) X 10*3/uL Eosinophils # (Manual) (0.04-0.35) X 10*3/uL Elliptocytes Chloride (96-109) mmol/L Carbon Dioxide (21.6-31.8) mmol/L BUN (9.0-27.0) mg/dL BUN/Creatinine Ratio (12.00-20.00) Ratio Glucose (70-110) mg/dL POC Glucose (mg/dL) 183 H (70-110) mg/dL Microbiology - Last 24 Hours (Table) 04/10/24 13:53 Blood Culture - Preliminary Blood Assessment and Plan (1) Thrush Current Visit: Yes Status: Acute Code(s): B37.0 - CANDIDAL STOMATITIS SNOMED Code(s): 83419042 (2) Pneumonia Current Visit: Yes Status: Acute Priority: High Code(s): J18.9 - PNEUMONIA, UNSPECIFIED ORGANISM SNOMED Code(s): 820324288 (3) Leukocytosis Current Visit: No Status: Acute Code(s): D72.829 - ELEVATED WHITE BLOOD CELL COUNT, UNSPECIFIED SNOMED Code(s): 691576222 Plan: 1patient presented to hospital with increasing shortness of breath and this patient noted to have a history of COPD and concerning for possible malignancy as the patient did have multiple nodules however the patient has been considered to be high risk for any surgical intervention or bronchoscopy by pulmonary and has been advised radiation treatment now with the current symptom possible related to COPD exacerbation with tracheobronchitis, pneumonia less likely. 2patient did have elevated white count could be related to the steroids plus minus a component of thrush 3sputum culture requested but not completed repeat procalcitonin initially was normal 4patient Zosyn has been discontinued by pulmonary, noticed to have slight worsening of the white count today we will give her a dose of Diflucan continue nystatin swish and swallow recheck and family markers with a.m. lab Dictation was produced using [employer] dictation software. please excuse any grammatical, word or spelling errors. Time with Patient: Less than 30
[2024-04-13 12:18] LABS: Glucose,Whole Blood 221 mg/dL (70-110)
--- NOTE | 2024-04-13 12:27 | P.PN ---
Subjective Progress Note Date: 04/13/24 This is an 83-year-old female patient with a history of oxygen dependent chronic obstructive pulmonary disease, atrial fibrillation anticoagulated with Eliquis, congestive heart failure, anxiety, diabetes mellitus she also has a previous history of lung cancer with radiation treatment. She follows with Dr. Koch. He recent PET scan from January 2024 revealed enlarging 3 scattered FDG avid pulmonary nodules. Overall stable in size. Favored to represent metastasis in setting of prior lung cancer. There is a right lower lobe reticular scarring. No distant metastatic changes. She was aware of these findings and the recommendation from radiation oncology was for a follow-up PET scan in 4 months. She came to the emergency room yesterday with a 2 to 3-day history of increasing shortness of breath cough and congestion. She had some green productive sputum. No fever or chills. Chest x-ray reveals right lower lobe density. White count 14.2. Hemoglobin 12.7. Platelets 165. Sodium 133. Potassium 4.1. Bicarb 33. BUN 19. Creatinine 0.68. Glucose 136. Viral screen is negative. She was initiated on ceftriaxone and azithromycin. She is seen today in consultation in the emergency department. Currently resting on the stretcher. Awake and alert in no acute distress. Continues with a congested cough. The patient is seen today April 08, 2024 in follow-up on the regular medical floor. She is currently resting comfortably in bed. Awake and alert in no acute distress. Feeling quite a bit better today compared to yesterday. She is maintaining O2 saturations in the 90s on 2 L/min per nasal cannula. Procalcitonin 0.22. White count 8.9. Hemoglobin 11.8. Platelets 170. Sodium 136. Potassium 4.5. Bicarb 29. BUN 19. Creatinine 0.58. Glucose 173. X-ray revealed suspected scarring of the right lower lobe as noted on previous chest x-rays and CAT scan. She is being treated for tracheobronchitis. She remains on Rocephin and azithromycin along with DuoNeb inhalations, Symbicort, Solu- Medrol. Anticoagulated with Eliquis. The patient is seen today April 09, 2024 in follow-up on the regular medical floor. She is sitting up in bed. Awake and alert in no acute distress. Maintaining O2 saturations in the 90s on 2 L/min per nasal cannula. Complaints of pain in her right throat and congested cough. CT scan of the neck revealed no acute suspicious change use to account for right oropharynx pain. CT scan of the chest revealed a lobular nodule within the lateral left midlung and spiculated nodule within the anterior right midlung. Irregular masslike density posterior right lung. Some additional small nodules. Sodium 140. Potassium 4.5. Bicarb 26. BUN 21. Creatinine 0.7. Glucose 258. She remains on DuoNeb inhalations, Symbicort, Solu-Medrol. Anticoagulated with Eliquis. The patient is seen today April 10, 2024 in follow-up on the regular medical floor. She is sitting up in bed. Awake and alert in no acute distress. Maintaining O2 saturations in the high 90s on 2 L/min per nasal cannula. She is afebrile. Hemodynamically stable. White count 14.4. Hemoglobin 11.2. Platelets 200. Sodium 139. Potassium 4.4. Bicarb 28. BUN 26. Creatinine 0.8. Glucose 234. She is continued on DuoNeb and elations, Symbicort, Solu- Medrol. Tessalon Perles for her cough. Anticoagulated with Eliquis. The patient is seen today April 11, 2024 in follow-up on the regular medical floor. She is awake and alert in no acute distress. Doing much better. Feeling back to her baseline. Maintaining good O2 saturations in the upper 90s on 2 L/min per nasal cannula. She is continued on DuoNeb and elations, Symbicort, prednisone taper. Anticoagulated with Eliquis. Tessalon Perles for her cough. Procalcitonin again was negative at 0.06. Antibiotics were discontinued. Sodium 142. Potassium 4.2. Bicarb 30. BUN 29. Creatinine 0.9. The patient is seen today April 12, 2024 in follow-up on the regular medical floor. She is sitting up in bed. Awake and alert in no acute distress. Maintaining O2 saturations in the mid 90s on 0.5 L/min per nasal cannula. She is afebrile. Hemodynamically stable. Blood cultures revealed no growth. Procalcitonin negative x 2. Sodium 140. Potassium 4.2. Bicarb 32. BUN 32. Creatinine 0.7. Glucose 140. She is continued on DuoNeb inhalations, Symbicort, prednisone taper. Anticoagulated with Eliquis. The patient is seen today April 13, 2024 in follow-up on the regular medical floor. She is awake and alert in no acute distress. Resting comfortably in bed. Denies any worsening shortness of breath, cough or congestion. She is maintaining good O2 saturations in the 90s on a 2 liters per minute per nasal cannula. Blood cultures revealed no growth. White count 15.9. Hemoglobin 12.5. Platelets 175. Sodium 138. Potassium 4.9. Bicarb 32. BUN 32. Creatinine 0.7. Glucose 159. She is continued on Symbicort, DuoNeb inhalations, Tessalon Perles for her cough. Anticoagulated with Eliquis. Continued on a prednisone taper. Objective - Vital Signs Vital signs: Vital Signs Temp 98.3 F 04/13/24 08:15 Pulse 60 04/13/24 11:54 Resp 19 04/13/24 08:15 BP 151/71 04/13/24 08:15 Pulse Ox 99 04/13/24 08:49 FiO2 Intake & Output 04/12/24 04/13/24 04/13/24 18:59 06:59 18:59 Intake Total 4141 240 598 Balance 4141 240 598 Intake: Oral 4141 240 598 Other: Voiding Method Toilet Toilet Toilet # Voids 5 1 # Bowel Movements 1 - Exam GENERAL EXAM: Alert, 83-year-old female, on 2 L nasal cannula, in no apparent distress. HEAD: Normocephalic. EYES: Normal reaction of pupils, equal size. NOSE: Clear with pink turbinates. THROAT: No erythema or exudates. NECK: No masses, no JVD. CHEST: No chest wall deformity. LUNGS: Equal air entry with bilateral scattered rhonchi, diminished. CVS: S1 and S2 normal with no audible murmur, regular rhythm. ABDOMEN: No hepatosplenomegaly, normal bowel sounds, no guarding or rigidity. SPINE: No scoliosis or deformity SKIN: No rashes CENTRAL NERVOUS SYSTEM: No focal deficits, tone is normal in all 4 extremities. EXTREMITIES: There is no peripheral edema. No clubbing, no cyanosis. Peripheral pulses are intact. - Labs CBC & Chem 7: 04/13/24 04:25 04/13/24 04:25 Labs: Abnormal Lab Results - Last 24 Hours (Table) 04/12/24 04/12/24 04/12/24 Range/Units 04:33 12:20 17:06 WBC 13.38 H (4.50-10.00) X 10*3/uL RBC 3.78 L (4.10-5.20) X 10*6/uL Hgb 11.1 L (12.0-15.0) g/dL Hct 35.6 L (37.2-46.3) % MCHC 31.2 L (32.0-37.0) g/dL Neutrophils # (Manual) 10.30 H (1.80-7.70) X 10*3/uL Eosinophils # (Manual) 0 L (0.04-0.35) X 10*3/uL Elliptocytes 2+ A Chloride (96-109) mmol/L Carbon Dioxide (21.6-31.8) mmol/L BUN (9.0-27.0) mg/dL BUN/Creatinine Ratio (12.00-20.00) Ratio Glucose (70-110) mg/dL POC Glucose (mg/dL) 160 H 281 H (70-110) mg/dL 04/12/24 04/13/24 04/13/24 Range/Units 20:19 04:25 04:25 WBC 15.93 H (4.50-10.00) X 10*3/uL RBC (4.10-5.20) X 10*6/uL Hgb (12.0-15.0) g/dL Hct (37.2-46.3) % MCHC 31.9 L (32.0-37.0) g/dL Neutrophils # (Manual) 12.90 H (1.80-7.70) X 10*3/uL Eosinophils # (Manual) 0 L (0.04-0.35) X 10*3/uL Elliptocytes Chloride 94 L (96-109) mmol/L Carbon Dioxide 32.0 H (21.6-31.8) mmol/L BUN 32.2 H (9.0-27.0) mg/dL BUN/Creatinine Ratio 46.00 H (12.00-20.00) Ratio Glucose 159 H (70-110) mg/dL POC Glucose (mg/dL) 310 H (70-110) mg/dL 04/13/24 04/13/24 Range/Units 07:16 12:16 WBC (4.50-10.00) X 10*3/uL RBC (4.10-5.20) X 10*6/uL Hgb (12.0-15.0) g/dL Hct (37.2-46.3) % MCHC (32.0-37.0) g/dL Neutrophils # (Manual) (1.80-7.70) X 10*3/uL Eosinophils # (Manual) (0.04-0.35) X 10*3/uL Elliptocytes Chloride (96-109) mmol/L Carbon Dioxide (21.6-31.8) mmol/L BUN (9.0-27.0) mg/dL BUN/Creatinine Ratio (12.00-20.00) Ratio Glucose (70-110) mg/dL POC Glucose (mg/dL) 183 H 221 H (70-110) mg/dL Microbiology - Last 24 Hours (Table) 04/10/24 13:53 Blood Culture - Preliminary Blood Assessment and Plan Assessment: Acute on chronic hypoxemic respiratory failure secondary to acute exacerbation of chronic obstructive pulmonary disease. Viral screen negative. Procalcitonin negative x 2 History of oxygen dependent chronic obstructive pulmonary disease Former smoker Right sided neck pain. CT scan of the neck revealed no acute suspicious change use to account for right oropharynx pain History of previous lung cancer status post radiation with new pulmonary nodules being followed in the outpatient setting. CT scan of the chest revealed a lobular nodule within the lateral left midlung and spiculated nodule within the anterior right midlung. Irregular masslike density posterior right lung. Some additional small nodules Chronic atrial fibrillation, anticoagulated with Eliquis Hypertension Hyperlipidemia Diabetes mellitus History of anxiety History of DVT History of CVA Coronary artery disease with previous stent placement History of peripheral vascular disease with previous stent placement Status post permanent pacemaker implantation Plan: The patient was seen and evaluated Labs and medications reviewed Cleared for discharge Continue her home Trelegy, DuoNeb inhalations Complete a prednisone taper Follow-up in our office in 1 week Keep her appointment with radiation oncology as scheduled Plan is for subacute rehabilitation at [facility] This patient was seen independently by the pulmonary nurse practitioner addressing pulmonary issues I have personally seen and examined the patient, performed the documentation and the assessment and plan as written. Number of minutes spent on the visit: 22 Dictation was produced using [employer] dictation software. Please excuse any grammatical, word or spelling errors.
[2024-04-13] MEDS: FLUCONAZOLE 100 MG TAB PO SCH (12:58)
[2024-04-13] MEDS: traMADol 50 MG TAB PO PRN (13:47)
--- NOTE | 2024-04-13 13:50 | P.DS ---
Providers Date of admission: 04/06/24 20:51 Expected date of discharge: 04/13/24 Attending physician: Samara Pack Consults: 04/06/24 20:47 Consult Physician Routine Consulting Provider: Markell Koch Consult Reason/Comments: pneumonia Do you want consulting provider notified?: Yes 04/10/24 14:48 Consult Physician Routine Consulting Provider: Candy Green Consult Reason/Comments: sepsis Do you want consulting provider notified?: Yes 04/11/24 13:36 Consult Physician Routine Consulting Provider: Mark Sarmiento Consult Reason/Comments: malignancy Do you want consulting provider notified?: Yes Primary care physician: Nohemi Estrada Hospital Course: Final diagnosis Shortness of breath with acute COPD exacerbation with right lower lobe pneumonia, present on admission Acute on chronic hypoxic respiratory failure secondary to above Sepsis, ruled out Leukocytosis, possibly reactive to steroid use Abnormal CT scan with a speculated nodule chronically being monitored as an outpatient and will follow-up with radiation oncology, pulmonary, oncology outpatient once discharged from ECF Gait dysfunction and generalized weakness History of hypertension History of hyperlipidemia History of anxiety History of coronary artery disease with previous stenting History of CVA History of permanent pacemaker implantation History of atrial fibrillation History of DVT Diabetes mellitus, type II Discharge disposition Patient is being discharged in a stable condition with guarded prognosis to [facility]. Patient will follow-up with Dr. Estrada in the outpatient setting upon discharge. Patient is to continue with current medications and close outpatient follow-up with repeat CBC to monitor white count. Patient is to follow-up with pulmonary as well as oncology as scheduled. Patient is agreeable to no oncological care during ECF. Total time taken is greater than 35 minutes. Hospital course This is a 83-year-old female who was recently admitted with increasing shortness of breath with COPD exacerbation with concerns of right lower lobe pneumonia, present on admission. Patient with acute on chronic hypoxic respiratory failure reports to feeling generalized weakness with a cough and also complaining of some stridor. Patient reports has been having some ongoing swallowing disturbances in her esophagus over the last 6 months although reports to not have telling anyone. Patient evaluated by speech with no signs of aspiration or difficulty noted at this time recommending outpatient follow-up with ENT in the outpatient setting. Patient being evaluated by pulmonary and procalcitonin was low and stopped antibiotics. Mildly increased white count although has been mildly elevated during hospitalization, likely reactive secondary to steroid use and recommend repeat labs in 1 day to monitor CBC. Patient will continue a prednisone taper along with inhalers as well as DuoNeb treatments. Patient instructed to follow-up with oncology outpatient. Patient reporting generalized weakness with prolonged hospitalization evaluated by PT/OT therapy recommending rehab and patient is agreeable. Patient has been accepted at [facility] on [facility] and will discharge today. Again patient is agreeable to no oncological care while at [facility] and will follow-up with them in the outpatient setting. Please refer to other consultation notes for further HPI. Currently no reports of chest pain, shortness of breath, or palpitations. Patient is afebrile. No reports of nausea or vomiting and patient is tolerating diet. Patient will be going to [facility] [address] today. Guarded prognosis Physical exam: Gen: This is a 83-year-old female who is awake, alert oriented x 3, thin built, elderly appearing HEENT: Head is atraumatic, normocephalic. Pupils equal, round. Sclerae is anicteric. NECK: Supple. No JVD. No lymphadenopathy. No thyromegaly. LUNGS: Diminished breath sounds bilaterally otherwise clear to auscultation. No wheezes or rhonchi. No intercostal retractions. HEART: S1, S2 are muffled ABDOMEN: Soft. Bowel sounds are present. No masses. No tenderness. EXTREMITIES: No pedal edema. No calf tenderness. NEUROLOGICAL: Patient is awake, alert and oriented x3. Cranial nerves 2 through 12 are grossly intact. Diffusely weak Please refer to medication reconciliation sheet for a list of medications. The impression and plan of care has been dictated by Adrianna Arguelles, Nurse Practitioner as directed. Dr. Ramone MD I have performed a history and examination and MDM of this patient, discussed the same with the dictator, and agree with the dictator's assessment and plan as written ,documented as a scribe. Based on total visit time, I have performed more than 50% of the visit. Patient Condition at Discharge: Fair Plan - Discharge Summary New Discharge Prescriptions: New Folic Acid 1 mg PO DAILY@1200 tab Insulin Detemir (Levemir) [Levemir] 10 unit SQ BID each predniSONE See Taper PO DIRECTED #30 tab Fluconazole [Diflucan] 100 mg PO DAILY 5 Days #5 tab Ipratropium-Albuterol Nebulize [Duoneb 0.5 mg-3 mg/3 ml Soln] 3 ml INHALATION RT-Q2H PRN each PRN Reason: Shortness Of Breath Or Wheezing Multivitamins, Thera [Multivitamin (formulary)] 1 each PO DAILY@1200 tab Nystatin 100,000 Unit/ml Susp [Mycostatin Oral Susp] 500,000 unit PO QID ml INSULIN ASPART (NovoLOG) [NovoLOG (formulary)] 0 unit SQ ACHS each Budesonide-Formot 160-4.5 Mcg [Symbicort 160-4.5 Mcg Inhaler] 2 puff INHALATION RT-BID each Thiamine [Vitamin B-1] 100 mg PO DAILY@1200 tab ALPRAZolam [Xanax] 0.25 mg PO BID PRN #4 tab PRN Reason: Anxiety Continue Fluticasone/Umeclidin/Vilanter [Trelegy Ellipta 100-62.5-25] 1 puff INHALATION RT-DAILY Albuterol Sulfate [Albuterol Sulfate Hfa] 2 puff INHALATION RT-Q4H PRN PRN Reason: Shortness Of Breath Lidocaine 5% Patch [Lidoderm 5% Patch] 1 patch TOPICAL DAILY PRN PRN Reason: Pain amLODIPine [Norvasc] 5 mg PO DAILY #30 tab Docusate [Colace] 100 mg PO HS PRN PRN Reason: Constipation Cyanocobalamin (Vitamin B-12) [Vitamin B-12] 1,000 mcg PO DAILY Certravite-Antioxidant 18mg-400mcg 1 tab PO DAILY Apixaban [Eliquis] 5 mg PO BID metFORMIN HCL ER [Glucophage XR] 500 mg PO W/SUPPER Melatonin 10 mg PO HS PRN PRN Reason: sleep DULoxetine HCL [Cymbalta] 60 mg PO DAILY Mirtazapine [Remeron] 15 mg PO HS Benzonatate [Tessalon Perle] 200 mg PO TID PRN PRN Reason: Cough Pantoprazole Sodium [Protonix] 20 mg PO DAILY Metoprolol Succinate (ER) [Toprol XL] 50 mg PO BID Ipratropium-Albuterol Nebulize [Duoneb 0.5 mg-3 mg/3 ml Soln] 3 ml INHALATION RT-QID Lactulose 10 gm PO DAILY PRN PRN Reason: Constipation Pravastatin Sodium [Pravachol] 80 mg PO DAILY Empagliflozin [Jardiance] 10 mg PO DAILY traMADol HCL 50 mg PO Q6H PRN #4 tab PRN Reason: Pain Discontinued ALPRAZolam [Xanax] 0.5 mg PO BID PRN PRN Reason: Anxiety predniSONE [Deltasone] See Taper PO DIRECTED Doxycycline Monohydrate 100 mg PO BID predniSONE 5 mg PO DIRECTED predniSONE 10 mg PO DIRECTED Discharge Medication List Fluticasone/Umeclidin/Vilanter [Trelegy Ellipta 100-62.5-25] 1 puff INHALATION RT-DAILY 04/19/20 [History] Albuterol Sulfate [Albuterol Sulfate Hfa] 2 puff INHALATION RT-Q4H PRN 12/01/22 [History] Lidocaine 5% Patch [Lidoderm 5% Patch] 1 patch TOPICAL DAILY PRN 12/01/22 [History] Pantoprazole Sodium [Protonix] 20 mg PO DAILY 12/01/22 [History] amLODIPine [Norvasc] 5 mg PO DAILY #30 tab 12/02/22 [Rx] Ipratropium-Albuterol Nebulize [Duoneb 0.5 mg-3 mg/3 ml Soln] 3 ml INHALATION RT -QID 06/27/23 [History] Metoprolol Succinate (ER) [Toprol XL] 50 mg PO BID 06/27/23 [History] Apixaban [Eliquis] 5 mg PO BID 04/07/24 [History] Benzonatate [Tessalon Perle] 200 mg PO TID PRN 04/07/24 [History] Certravite-Antioxidant 18mg-400mcg 1 tab PO DAILY 04/07/24 [History] Cyanocobalamin (Vitamin B-12) [Vitamin B-12] 1,000 mcg PO DAILY 04/07/24 [History] DULoxetine HCL [Cymbalta] 60 mg PO DAILY 04/07/24 [History] Docusate [Colace] 100 mg PO HS PRN 04/07/24 [History] Empagliflozin [Jardiance] 10 mg PO DAILY 04/07/24 [History] Lactulose 10 gm PO DAILY PRN 04/07/24 [History] Melatonin 10 mg PO HS PRN 04/07/24 [History] Mirtazapine [Remeron] 15 mg PO HS 04/07/24 [History] Pravastatin Sodium [Pravachol] 80 mg PO DAILY 04/07/24 [History] metFORMIN HCL ER [Glucophage XR] 500 mg PO W/SUPPER 04/07/24 [History] ALPRAZolam [Xanax] 0.25 mg PO BID PRN #4 tab 04/13/24 [Rx] Budesonide-Formot 160-4.5 Mcg [Symbicort 160-4.5 Mcg Inhaler] 2 puff INHALATION RT-BID each 04/13/24 [Rx] Fluconazole [Diflucan] 100 mg PO DAILY 5 Days #5 tab 04/13/24 [Rx] Folic Acid 1 mg PO DAILY@1200 tab 04/13/24 [Rx] INSULIN ASPART (NovoLOG) [NovoLOG (formulary)] 0 unit SQ ACHS each 04/13/24 [Rx] Insulin Detemir (Levemir) [Levemir] 10 unit SQ BID each 04/13/24 [Rx] Ipratropium-Albuterol Nebulize [Duoneb 0.5 mg-3 mg/3 ml Soln] 3 ml INHALATION RT-Q2H PRN each 04/13/24 [Rx] Multivitamins, Thera [Multivitamin (formulary)] 1 each PO DAILY@1200 tab 04/13/24 [Rx] Nystatin 100,000 Unit/ml Susp [Mycostatin Oral Susp] 500,000 unit PO QID ml 04/13/24 [Rx] Thiamine [Vitamin B-1] 100 mg PO DAILY@1200 tab 04/13/24 [Rx] predniSONE See Taper PO DIRECTED #30 tab 04/13/24 [Rx] traMADol HCL 50 mg PO Q6H PRN #4 tab 04/13/24 [Rx] Follow up Appointment(s)/Referral(s): Markell Koch MD [STAFF PHYSICIAN] - 1 Week Nohemi Estrada MD [Primary Care Provider] - 1-2 days Ambulatory/Diagnostic Orders: Complete Blood Count w/diff [LAB.AMB] Time Frame: 1 Day, Location: None Selected Patient Instructions/Handouts: COPD (Chronic Obstructive Pulmonary Disease) (DC) Activity/Diet/Wound Care/Special Instructions: Patient is going to [facility] on [address] Activity as tolerated Continue with Diflucan and nystatin on discharge Repeat CBC, CMP in 1 day and monitor white count Follow-up with pulmonary outpatient Follow-up with oncology outpatient once discharged from ECF Continue prednisone taper Continue breathing inhalational treatments Continue with Accu-Cheks before meals and at bedtime add sliding scale NovoLog sliding scale 0-150 equals 0 units 151-200 equals 2 units 201-250 equals 4 units 251-300 equals 6 units 301-350 equals 8 units 351-400 equals 10 units Please notify provider if blood sugar is 400 or above Discharge/Stand Alone Forms: Who Do I Call?, Community Resources, Help In The Home Discharge Disposition: TRANSFER TO SNF/ECF
[2024-04-13 14:27] VITALS: BP 161/68; PULSE 72; RESP 18; TEMP 98.5
== END 2024-04-13 15:05 | DRG 193 ==
LOC: EC 17:26 → 5NMEDONC 20:51
PROVIDERS: ADMIT Hospitalist; ATTEND Hospitalist
DX: J18.9 Pneumonia, unspecified organism (principal); J96.21 Acute and chronic respiratory failure with hypoxia; B37.0 Candidal stomatitis; J44.1 Chronic obstructive pulmonary disease with (acute) exacerbation; I48.20 Chronic atrial fibrillation, unspecified; J44.0 Chronic obstructive pulmonary disease with (acute) lower respiratory infection; I11.0 Hypertensive heart disease with heart failure; I50.9 Heart failure, unspecified; Z99.81 Dependence on supplemental oxygen; E11.9 Type 2 diabetes mellitus without complications; D64.9 Anemia, unspecified; R91.8 Other nonspecific abnormal finding of lung field; I25.10 Atherosclerotic heart disease of native coronary artery without angina pectoris; E78.5 Hyperlipidemia, unspecified; I73.00 Raynaud's syndrome without gangrene; M79.7 Fibromyalgia; G47.30 Sleep apnea, unspecified; K21.9 Gastro-esophageal reflux disease without esophagitis; M19.90 Unspecified osteoarthritis, unspecified site; Z85.118 Personal history of other malignant neoplasm of bronchus and lung; Z87.891 Personal history of nicotine dependence; Z92.3 Personal history of irradiation; Z79.01 Long term (current) use of anticoagulants; Z95.5 Presence of coronary angioplasty implant and graft; Z86.73 Personal history of transient ischemic attack (TIA), and cerebral infarction without residual deficits; Z79.02 Long term (current) use of antithrombotics/antiplatelets; Z79.84 Long term (current) use of oral hypoglycemic drugs; Z79.899 Other long term (current) drug therapy; Z79.51 Long term (current) use of inhaled steroids; Z79.4 Long term (current) use of insulin; Z86.718 Personal history of other venous thrombosis and embolism; Z95.0 Presence of cardiac pacemaker; Z82.5 Family history of asthma and other chronic lower respiratory diseases; Z82.49 Family history of ischemic heart disease and other diseases of the circulatory system
CPT/HCPCS: 36415; 70450; 70491; 71045; 71046; 71260; 80048; 80053; 83036; 83605; 83735; 84145; 85025; 86140; 87040; 87449; 87636; 93005; 94640; 94760; 96365; 96366; 96367; 96375; 99285

== ENCOUNTER 2024-04-27 21:12 | Observation (INO) | payer MEDICARE, OTHER ==
--- NOTE | 2024-04-27 21:57 | XR ---
EXAMINATION TYPE: XR chest 2V DATE OF EXAM: 04/27/2024 CLINICAL HISTORY: Chest pain TECHNIQUE: Frontal and lateral views of the chest are obtained. COMPARISON: Prior chest x-ray April 10, 2024 FINDINGS: Mild cardiomegaly with dual lead pacemaker and atherosclerotic thoracic aorta is seen. Mild central vascular congestion on current study. Background chronic emphysematous changes redemonstrate d. Nodular opacities in the bilateral mid lungs, left sided periphery are redemonstrated. Cannot excl ude underlying neoplasm. Cholecystectomy clips are redemonstrated. The osseous structures are intact . IMPRESSION: Mild cardiomegaly and chronic emphysematous change. Suspect mild central vascular congest ion. Correlate for fluid overload state/CHF exacerbation. [facility], , 04/27/2024 9:54 PM
[2024-04-27 22:03] LABS: Basophils % (A) 0 %; Eosinophils # (A) 0.2 k/uL (0-0.7); Eosinophils % (A) 2 %; HCT 38.9 % (34.0-46.0); HGB 12.4 gm/dL (11.4-16.0); Lymphocytes # (A) 1.7 k/uL (1.0-4.8); Lymphocytes % (A) 16 %; MCH 29.5 pg (25.0-35.0); MCHC 31.9 g/dL (31.0-37.0); MCV 92.6 fL (80.0-100.0); Mean Platelet Volume 8.7; Monocytes # (A) 0.4 k/uL (0-1.0); Monocytes % (A) 4 %; Neutrophils % (A) 77 %; Platelet Count 173 k/uL (150-450); RDW 14.5 % (11.5-15.5); WBC 10.4 k/uL (3.8-10.6)
[2024-04-27 22:20] LABS: Partial Thromboplastin Time 22.8 sec (22.0-30.0); Prothrombin Time 10.7 sec (10.0-12.5)
[2024-04-27 22:43] LABS: ALT 28 U/L (4-34); AST 30 U/L (14-36); African American GFR (CKD) >90 (>60 ml/min/1.73 sqM); Albumin 3.9 g/dL (3.5-5.0); Alkaline Phosphatase 62 U/L (38-126); Anion Gap 4 mmol/L; Blood Urea Nitrogen 23 mg/dL (7-17); Calcium 8.4 mg/dL (8.4-10.2); Carbon Dioxide 28 mmol/L (22-30); Chloride 103 mmol/L (98-107); Glucose 119 mg/dL (74-99); Magnesium 2.2 mg/dL (1.6-2.3); Non-African American GFR(CKD) 80 (>60 ml/min/1.73 sqM); Potassium 4.2 mmol/L (3.5-5.1); Sodium 135 mmol/L (137-145); Total Bilirubin 0.6 mg/dL (0.2-1.3); Total Protein 6.4 g/dL (6.3-8.2)
[2024-04-27] MEDS ORDERED: NALOXONE 0.4 MG/ML 1 ML VIAL IV PRN (23:19)
[2024-04-27] MEDS ORDERED: MORPHINE SULFATE 4 MG/ML SYRINGE IV PRN (23:19)
[2024-04-27] MEDS ORDERED: ALBUTEROL NEBULIZED 2.5 MG/3 ML INHALATION PRN (23:21)
[2024-04-27] MEDS ORDERED: MELATONIN 5 MG TABLET PO PRN (23:21)
--- NOTE | 2024-04-27 23:21 | ED ---
Chest Pain HPI - General Chief Complaint: Chest Pain Stated Complaint: Chest Pain Time Seen by Provider: 04/27/24 21:25 Source: patient Mode of arrival: EMS - History of Present Illness Initial Comments: 83-year-old female with past medical history of COPD on 2 L all the time, coronary artery disease with stent placement, pacemaker who presents emergency department reporting chest pain. States that she has had intermittent symptoms since Thursday when she came home from an extended care facility. She was hospitalized and then sent there after she had pneumonia. Tonight the pain got significantly worse. She describes it as a substernal burning sensation without radiation. The pain comes on very intensely and will last for approximately 30 seconds and then spontaneously resolve. She does have history of 1 stent placement. When EMS got to her tonight she was in A-fib with a rapid rate. Patient does have a history of A-fib and takes anticoagulation. Patient did spontaneously convert on her own. She is unaware if she has paroxysmal A-fib. EMS was concerned that the patient went into a wide-complex tachycardia. Patient denies any abdominal pain. She is status post cholecystectomy. She admits associated nausea. No vomiting. No syncope. Denies any numbness, tingling or weakness into her extremities. No other alleviating, precipitating modifying factors - Related Data Home Medications Medication Instructions Recorded Confirmed Fluticasone/Umeclidin/Vilanter 1 puff INHALATION RT-DAILY 04/19/20 04/28/24 [Trelelionel Ellipta 100-62.5-25] Albuterol Sulfate [Albuterol 2 puff INHALATION RT-Q4H PRN 12/01/22 04/28/24 Sulfate Hfa] Pantoprazole Sodium [Protonix] 20 mg PO DAILY 12/01/22 04/28/24 Metoprolol Succinate (ER) [Toprol 50 mg PO BID 06/27/23 04/28/24 XL] Apixaban [Eliquis] 5 mg PO BID 04/07/24 04/28/24 Benzonatate [Tessalon Perle] 200 mg PO TID PRN 04/07/24 04/28/24 Cyanocobalamin (Vitamin B-12) 1,000 mcg PO DAILY 04/07/24 04/28/24 [Vitamin B-12] DULoxetine HCL [Cymbalta] 60 mg PO DAILY 04/07/24 04/28/24 Docusate [Colace] 100 mg PO HS PRN 04/07/24 04/28/24 Empagliflozin [Jardiance] 10 mg PO DAILY 04/07/24 04/28/24 Lactulose 20 gm PO DAILY PRN 04/07/24 04/28/24 Melatonin 10 mg PO HS PRN 04/07/24 04/28/24 Mirtazapine [Remeron] 15 mg PO HS 04/07/24 04/28/24 metFORMIN HCL ER [Glucophage XR] 500 mg PO W/SUPPER 04/07/24 04/28/24 Folic Acid 1 mg PO DAILY 04/28/24 04/28/24 INSULIN LISPRO (HumaLOG) [humaLOG] See Protocol SQ ACHS 04/28/24 04/28/24 Insulin Glargine,Hum.rec.anlog 10 units SQ BID 04/28/24 04/28/24 [Lantus Solostar Pen] Thiamine [Vitamin B-1] 100 mg PO DAILY 04/28/24 04/28/24 Triamcinolone Acetonide 1 spray EA NOSTRIL Q12H 04/28/24 04/28/24 [Triamcinolone Acetonide 0.055MG Nasal] Previous Rx's Medication Instructions Recorded amLODIPine [Norvasc] 5 mg PO DAILY #30 tab 12/02/22 ALPRAZolam [Xanax] 0.25 mg PO BID PRN #4 tab 04/13/24 predniSONE See Taper PO DIRECTED #30 tab 04/13/24 traMADol HCL 50 mg PO Q6H PRN #4 tab 04/13/24 Mag Hydrox/Al Hydrox/Simeth 30 ml PO DAILY PRN #240 ml 04/29/24 [Maalox] Allergies Allergy/AdvReac Type Severity Reaction Status Date / Time No Known Allergies Allergy Verified 04/28/24 10:38 Review of Systems ROS Statement: Those systems with pertinent positive or pertinent negative responses have been documented in the HPI. ROS Other: All systems not noted in ROS Statement are negative. Past Medical History Past Medical History: Atrial Fibrillation, Cancer, Heart Failure, COPD, CVA/TIA, Diabetes Mellitus, Deep Vein Thrombosis (DVT), Fibromyalgia, GERD/Reflux, Hyperlipidemia, Hypertension, Osteoarthritis (OA), Pneumonia, Sleep Apnea/CPAP/BIPAP, Vascular Disorder Additional Past Medical History / Comment(s): back pain , lung cancer-radiation opnly, HOME 02 2 LITERS N/C, BLOOD CLOT AFTER SX, CVA LT SIDE AFFECTED SINCE RESOLVED, HIATAL HERNIA. SHINGLES 30 YEARS AGO, DOES'NT USE CPAP MACHINE.in past for short period of time took oral meds for dm-then taken off meds-pt stated not considered diabetic now but occ will check bs., macular degeneration.past broken rt leg and lt wrist. Raynauds. Pt currently has 3 fractured ribs on the right that she has "had for years and will not heal". History of Any Multi-Drug Resistant Organisms: MRSA Date of last positivie culture/infection: 09/25/16 MDRO Source:: BRONCH WASH Past Surgical History: Cholecystectomy, Heart Catheterization With Stent, Orthopedic Surgery Additional Past Surgical History / Comment(s): rt leg repaired after break-has pins, lt wrist-plate and screws. lung bx, stents tung groins. Past Anesthesia/Blood Transfusion Reactions: Family History of Problems w/ Anesthesia Additional Past Anesthesia/Blood Transfusion Reaction / Comment(s): daughter has diff waking after aa Date of Last Stent Placement:: unk Type of Cardiac Device: Permanent Pacemaker Device Placement Date:: 09/25/20 Past Psychological History: No Psychological Hx Reported Smoking Status: Former smoker Past Alcohol Use History: Occasional Past Drug Use History: None Reported - Past Family History Father Family Medical History: Congestive Heart Failure (CHF), COPD Additional Family Medical History / Comment(s): emphysema Mother Family Medical History: Cancer General Exam General appearance: alert, in no apparent distress Head exam: Present: atraumatic, normocephalic, normal inspection Eye exam: Present: normal appearance, PERRL, EOMI. Absent: scleral icterus, conjunctival injection, periorbital swelling ENT exam: Present: normal exam, mucous membranes moist Neck exam: Present: normal inspection. Absent: tenderness, meningismus, lymphadenopathy Respiratory exam: Present: normal lung sounds bilaterally. Absent: respiratory distress, wheezes, rales, rhonchi, stridor Cardiovascular Exam: Present: regular rate, normal rhythm, normal heart sounds. Absent: systolic murmur, diastolic murmur, rubs, gallop, clicks GI/Abdominal exam: Present: soft, normal bowel sounds. Absent: distended, tenderness, guarding, rebound, rigid Extremities exam: Present: normal inspection, full ROM, normal capillary refill. Absent: tenderness, pedal edema, joint swelling, calf tenderness Back exam: Present: normal inspection Neurological exam: Present: alert, oriented X3, CN II-XII intact Psychiatric exam: Present: normal affect, normal mood Skin exam: Present: warm, dry, intact, normal color. Absent: rash Course Vital Signs 04/27/24 04/27/24 04/28/24 21:24 23:31 00:22 Temperature 97.8 F 97.8 F Pulse Rate 68 60 61 Respiratory 18 22 15 Rate Blood Pressure 138/68 180/78 151/67 O2 Sat by Pulse 100 98 98 Oximetry Chest Pain MDM - MDM Was pt. sent in by a medical professional or institution (, [facility], QUALITY SYSTEMS SPECIALIST, urgent care, hospital, or [facility]...) When possible be specific @ -No Did you speak to anyone other than the patient for history (EMS, parent, family, police, friend...)? What history was obtained from this source @ -Spoke with EMS for history Did you review nursing and triage notes (agree or disagree)? Why? @ -I reviewed and agree with nursing and triage notes Were old charts reviewed (outside hosp., previous admission, EMS record, old EKG, old radiological studies, urgent care reports/EKG's, [facility] records)? Report findings @ -No old charts were reviewed Differential Diagnosis (chest pain, altered mental status, abdominal pain women, abdominal pain men, vaginal bleeding, weakness, fever, dyspnea, syncope, headache, dizziness, GI bleed, back pain, seizure, CVA, palpatations, mental health, musculoskeletal)? @ -Differential Chest Pain: Stable Angina, Unstable Angina, STEMI, NSTEMI Aortic Dissection, Pneumothorax, Musculoskeletal, Esophageal Spasm GERD, Cholecystitis, Pancreatitis, Zoster, this is not meant to be an all-inclusive list. EKG interpreted by me (3pts min.). @ -First EKG completed at 2209 demonstrates sinus rhythm with atrial pacing. Rate of 64. AZ interval 216. QRS 77. QTc of 418. No acute ST segment elevation. Mild ST depression aVL Patient has reoccurring chest pain and a repeat EKG is done at 2315. Demonstrates sinus rhythm with a rate of 66. AZ interval 200. QRS 82. QTc of 430. No acute ST segment elevations or depressions X-rays interpreted by me (1pt min.). @ -Yes and demonstrates mild cardiomegaly CT interpreted by me (1pt min.). @ -None done U/S interpreted by me (1pt. min.). @ -None done What testing was considered but not performed or refused? (CT, X-rays, U/S, labs)? Why? @ -None What meds were considered but not given or refused? Why? @ -None Did you discuss the management of the patient with other professionals (professionals i.e. DrErwin, PA, QUALITY SYSTEMS SPECIALIST, lab, RT, psych nurse, sr. social media & mobile manager, scoring machine operator, teacher, enforcement safety officer, case resolution specialist)? Give summary @ -Spoke with Inna from [facility] for admission Was smoking cessation discussed for >3mins.? @ -No Was critical care preformed (if so, how long)? @ -No Were there social determinants of health that impacted care today? How? (Homelessness, low income, unemployed, alcoholism, drug addiction, transportation, low edu. Level, literacy, decrease access to med. care, prison, rehab)? @ -No Was there de-escalation of care discussed even if they declined (Discuss DNR or withdrawal of care, Hospice)? DNR status @ -No What co-morbidities impacted this encounter? (DM, HTN, Smoking, COPD, CAD, Cancer, CVA, ARF, Chemo, Hep., AIDS, mental health diagnosis, sleep apnea, morbid obesity)? @ -A-fib, heart failure Was patient admitted / discharged? Hospital course, mention meds given and route, prescriptions, significant lab abnormalities, going to OR and other pertinent info. @ -Upon arrival patient seen and evaluated in room 15. Thorough history and physical exam was performed. Patient placed on continuous pulse ox and cardiac monitoring. Twelve-lead EKG is obtained. Laboratory studies are conducted. Chest x-ray was performed. Recommended admission. Spoke with Inna from [facility] for admission Undiagnosed new problem with uncertain prognosis? @ -No Drug Therapy requiring intensive monitoring for toxicity (Heparin, Nitro, Insulin, Cardizem)? @ -No Were any procedures done? @ -No Diagnosis/symptom? @ -Acute chest pain, acute tacky dysrhythmia Acute, or Chronic, or Acute on Chronic? @ -Acute Uncomplicated (without systemic symptoms) or Complicated (systemic symptoms)? @ -Complicated Side effects of treatment? @ -No Exacerbation, Progression, or Severe Exacerbation? @ -No Poses a threat to life or bodily function? How? (Chest pain, USA, CT, pneumonia, PE, COPD, DKA, ARF, appy, cholecystitis, CVA, Diverticulitis, Homicidal, Suicidal, threat to staff... and all critical care pts) @ -No Disposition Clinical Impression: CAD (coronary artery disease), Chest pain, Atrial fibrillation with rapid ventricular response Disposition: ADMITTED IP TO [facility] Condition: Stable Is patient prescribed a controlled substance at d/c from ED?: No Time of Disposition: 23:18 Decision to Admit Reason: Admit from EC Decision Date: 04/27/24 Decision Time: 23:19
[2024-04-27] MEDS: ASPIRIN 81 MG PO STA (23:42)
[2024-04-27] MEDS: NITROGLYCERIN OINT 1 INCH/GM PACKET TOPICAL STA (23:43)
[2024-04-27] MEDS: METOPROLOL SUCCINATE (ER) 50 MG TAB.ER.24H PO SCH (23:44)
[2024-04-27] MEDS: ALPRAZolam 0.25 MG TAB PO PRN (23:44)
[2024-04-27] MEDS: MORPHINE SULFATE 4 MG/ML SYRINGE IVP STA (23:45)
[2024-04-27] MEDS: MIRTAZAPINE 15 MG TAB PO SCH (23:52)
[2024-04-27] MEDS: INSULIN DETEMIR (LEVEMIR) 100 UNIT/ML SYR SQ SCH (23:54)
[2024-04-28 04:08] LABS: Basophils % (A) 0 %; Eosinophils # (A) 0.2 k/uL (0-0.7); Eosinophils % (A) 2 %; HGB 11.9 gm/dL (11.4-16.0); Hypochromasia Slight; Lymphocytes # (A) 2.4 k/uL (1.0-4.8); Lymphocytes % (A) 26 %; MCH 30.5 pg (25.0-35.0); MCHC 32.2 g/dL (31.0-37.0); MCV 94.8 fL (80.0-100.0); Mean Platelet Volume 8.5; Monocytes # (A) 0.5 k/uL (0-1.0); Monocytes % (A) 5 %; Neutrophils # (A) 6.2 k/uL (1.3-7.7); Neutrophils % (A) 65 %; Platelet Count 143 k/uL (150-450); RBC 3.91 m/uL (3.80-5.40); RDW 14.1 % (11.5-15.5); WBC 9.5 k/uL (3.8-10.6)
[2024-04-28 04:21] LABS: African American GFR (CKD) 90 (>60 ml/min/1.73 sqM); Anion Gap 5 mmol/L; Blood Urea Nitrogen 27 mg/dL (7-17); Calcium 8.4 mg/dL (8.4-10.2); Carbon Dioxide 26 mmol/L (22-30); Chloride 105 mmol/L (98-107); Glucose 142 mg/dL (74-99); Non-African American GFR(CKD) 78 (>60 ml/min/1.73 sqM); Potassium 4.4 mmol/L (3.5-5.1); Sodium 136 mmol/L (137-145)
[2024-04-28 05:57] LABS: Glucose,Whole Blood 114 mg/dL (70-110)
[2024-04-28] MEDS: SYMBICORT 160-4.5 MCG INHALER INHALATION SCH (08:08)
[2024-04-28] MEDS: IPRATROPIUM 0.5 MG/2.5 ML NEBU INHALATION SCH (08:08)
[2024-04-28] MEDS ORDERED: AMINOPHYLLINE 500 MG/20 ML VIAL IV PRN (10:27)
[2024-04-28] MEDS ORDERED: CAFFEINE CITRATE 60 MG/3 ML VIAL IV PRN (10:27)
[2024-04-28] MEDS ORDERED: REGADENOSON 0.4 MG/5 ML SYRINGE IV PRN (10:27)
[2024-04-28] MEDS ORDERED: DEXTROSE 50% SYRINGE 50 ML IVP PRN ×2 (11:01)
[2024-04-28] MEDS: metFORMIN 500 MG TAB PO SCH (11:03)
[2024-04-28] MEDS: amLODIPine 5 MG TAB PO SCH (11:11)
[2024-04-28] MEDS: PANTOPRAZOLE 40 MG TABLET PO SCH (11:12)
--- NOTE | 2024-04-28 11:39 | P.CRDCN ---
History of Present Illness History of present illness: HISTORY OF PRESENT ILLNESS: This is a 83-year-old female with a past medical history significant for COPD on home oxygen, paroxysmal atrial fibrillation, permanent pacemaker implantation, hypertension, hyperlipidemia, carotid stenosis, TIA/CVA, and coronary artery disease. Patient follows in the office with Dr. Lance. We have been asked to see the patient in consultation for chest pain. Patient examined at the bedside. Patient states she has been having some chest pain for the past few days. She states she took nitro without relief. She called 911. She states she was in Afib in the ambulance. She states in the ER, she had an episode of severe chest pain. She received her home medications and morphine and states the pain resolved. There are no telemetry tracings available from EMS in the patients paper chart. Pacemaker was interrogated revealing some short bursts of atrial fibrillation with RVR. DIAGNOSTICS: - EKG reveals sinus mechanism with no signs of acute ischemia. Repeat EKG reveals atrial paced rhythm. Third EKG also reveals atrial paced rhythm. - Chest xray mild cardiomegaly and chronic emphysematous change. Suspect mild central vascular congestion. - Laboratory data: WBC 9.5. Hemoglobin 11.9. Platelet count 143. Sodium 136. Potassium 4.4. BUN 27. Creatinine 0.72. Troponin negative x 3. proBNP 577. - Current home cardiac medications list is not updated at the time of this dictation - Most recent echocardiogram obtained in June 2023 revealed ejection fraction 55 to 60%, trace to mild MR, mild TR - Cardiac catheterization history: October 2016 revealing mild disease in the RCA, mild left main disease, mild in-stent restenosis of the proximal circumflex, intermediate disease of OM1 REVIEW OF SYSTEMS: At the time of my exam: CONSTITUTIONAL: Denies fever or chills. HEENT: Denies blurred vision, vision changes, or eye pain. Denies hemoptysis CARDIOVASCULAR: Denies chest pain. Denies orthopnea. Denies PND. Denies palpitations RESPIRATORY: Denies shortness of breath. GASTROINTESTINAL: Denies abdominal pain. Denies nausea or vomiting. HEMATOLOGIC: Denies bleeding disorders. GENITOURINARY: Denies any blood in urine. SKIN: Denies pruitis. Denies rash. PHYSICAL EXAM: VITAL SIGNS: Reviewed. GENERAL: Well-developed in no acute distress. HEENT: Head is normocephalic. Pupils are equal, round. Sclerae anicteric. Mucous membranes of the mouth are moist. Neck supple. No JVD or thyromegaly LUNGS: Respirations even and unlabored. Lungs essentially clear to auscultation bilaterally. HEART: Regular rate and rhythm. S1 and S2 heard. ABDOMEN: Soft. Nondistended. Nontender. EXTREMITIES: Normal range of motion. No clubbing or cyanosis. Peripheral pulses intact. No lower extremity edema NEUROLOGIC: Awake and alert. Oriented x 3. ASSESSMENT: Chest pain Coronary artery disease with previous stenting of the left circumflex Paroxysmal atrial fibrillation/flutter History of permanent pacemaker implantation, [employer] Left carotid stenosis, 60% History of lung cancer with recently found new pulmonary nodules COPD on home oxygen Hypertension Hyperlipidemia History of TIA/CVA Former nicotine dependence PLAN: Acute coronary event has been ruled out Obtain 2D echo to assess cardiac structure and function Resume home cardiac medications Patient to undergo Rohini scan stress testing today Further recommendations pending patient course Nurse practitioner note has been reviewed by physician. Signing provider agrees with the documented findings, assessment, and plan of care documented by PROGRAM DEVELOPMENT MANAGER as a scribe. Past Medical History Past Medical History: Atrial Fibrillation, Cancer, Heart Failure, COPD, CVA/TIA, Diabetes Mellitus, Deep Vein Thrombosis (DVT), Fibromyalgia, GERD/Reflux, Hyperl ipidemia, Hypertension, Osteoarthritis (OA), Pneumonia, Sleep Apnea/CPAP/BIPAP, Vascular Disorder Additional Past Medical History / Comment(s): back pain , lung cancer-radiation opnly, HOME 02 2 LITERS [place], BLOOD CLOT AFTER SX, CVA LT SIDE AFFECTED SINCE RESOLVED, HIATAL HERNIA. SHINGLES 30 YEARS AGO, DOES'NT USE CPAP MACHINE.in past for short period of time took oral meds for dm-then taken off meds-pt stated not considered diabetic now but occ will check bs., macular degeneration.past broken rt leg and lt wrist. Raynauds. Pt currently has 3 fractured ribs on the right that she has "had for years and will not heal". History of Any Multi-Drug Resistant Organisms: MRSA Date of last positivie culture/infection: 09/25/16 MDRO Source:: BRONCH WASH Past Surgical History: Cholecystectomy, Heart Catheterization With Stent, Orthopedic Surgery Additional Past Surgical History / Comment(s): rt leg repaired after break-has pins, lt wrist-plate and screws. lung bx, stents tung groins. Past Anesthesia/Blood Transfusion Reactions: Family History of Problems w/ Anesthesia Additional Past Anesthesia/Blood Transfusion Reaction / Comment(s): daughter has diff waking after aa Date of Last Stent Placement:: unk Type of Cardiac Device: Permanent Pacemaker Device Placement Date:: 09/25/20 Past Psychological History: No Psychological Hx Reported Additional Psychological History / Comment(s): Pt lives alone. Daughters live nearby. Uses home O2, 2L. Uses walker if she feels "wobbly" Smoking Status: Former smoker Past Alcohol Use History: Occasional Additional Past Alcohol Use History / Comment(s): started smopking at age 14(1955), quit 2016 Past Drug Use History: None Reported - Past Family History Father Family Medical History: Congestive Heart Failure (CHF), COPD Additional Family Medical History / Comment(s): emphysema Mother Family Medical History: Cancer Medications and Allergies Home Medications Medication Instructions Recorded Confirmed Type Fluticasone/Umeclidin/Vilanter 1 puff INHALATION RT-DAILY 04/19/20 04/07/24 History [Brinda Schulteta 100-62.5-25] Albuterol Sulfate [Albuterol 2 puff INHALATION RT-Q4H PRN 12/01/22 04/07/24 History Sulfate Hfa] Lidocaine 5% Patch [Lidoderm 5% 1 patch TOPICAL DAILY PRN 12/01/22 04/07/24 History Patch] Pantoprazole Sodium [Protonix] 20 mg PO DAILY 12/01/22 04/07/24 History amLODIPine [Norvasc] 5 mg PO DAILY #30 tab 12/02/22 04/07/24 Rx Ipratropium-Albuterol Nebulize 3 ml INHALATION RT-QID 06/27/23 04/07/24 History [Duoneb 0.5 mg-3 mg/3 ml Soln] Metoprolol Succinate (ER) [Toprol 50 mg PO BID 06/27/23 04/07/24 History XL] Apixaban [Eliquis] 5 mg PO BID 04/07/24 04/07/24 History Benzonatate [Tessalon Perle] 200 mg PO TID PRN 04/07/24 04/07/24 History Certravite-Antioxidant 18mg-400mcg 1 tab PO DAILY 04/07/24 04/07/24 History Cyanocobalamin (Vitamin B-12) 1,000 mcg PO DAILY 04/07/24 04/07/24 History [Vitamin B-12] DULoxetine HCL [Cymbalta] 60 mg PO DAILY 04/07/24 04/07/24 History Docusate [Colace] 100 mg PO HS PRN 04/07/24 04/07/24 History Empagliflozin [Jardiance] 10 mg PO DAILY 04/07/24 04/07/24 History Lactulose 10 gm PO DAILY PRN 04/07/24 04/07/24 History Melatonin 10 mg PO HS PRN 04/07/24 04/07/24 History Mirtazapine [Remeron] 15 mg PO HS 04/07/24 04/07/24 History Pravastatin Sodium [Pravachol] 80 mg PO DAILY 04/07/24 04/07/24 History metFORMIN HCL ER [Glucophage XR] 500 mg PO W/SUPPER 04/07/24 04/07/24 History ALPRAZolam [Xanax] 0.25 mg PO BID PRN #4 tab 04/13/24 Rx Budesonide-Formot 160-4.5 Mcg 2 puff INHALATION RT-BID each 04/13/24 Rx [Symbicort 160-4.5 Mcg Inhaler] Fluconazole [Diflucan] 100 mg PO DAILY 5 Days #5 tab 04/13/24 Rx Folic Acid 1 mg PO DAILY@1200 tab 04/13/24 Rx INSULIN ASPART (NovoLOG) [NovoLOG 0 unit SQ ACHS each 04/13/24 Rx (formulary)] Insulin Detemir (Levemir) [Levemir] 10 unit SQ BID each 04/13/24 Rx Ipratropium-Albuterol Nebulize 3 ml INHALATION RT-Q2H PRN each 04/13/24 Rx [Duoneb 0.5 mg-3 mg/3 ml Soln] Multivitamins, Thera [Multivitamin 1 each PO DAILY@1200 tab 04/13/24 Rx (formulary)] Nystatin 100,000 Unit/ml Susp 500,000 unit PO QID ml 04/13/24 Rx [Mycostatin Oral Susp] Thiamine [Vitamin B-1] 100 mg PO DAILY@1200 tab 04/13/24 Rx predniSONE See Taper PO DIRECTED #30 tab 04/13/24 Rx traMADol HCL 50 mg PO Q6H PRN #4 tab 04/13/24 Rx Allergies Allergy/AdvReac Type Severity Reaction Status Date / Time No Known Allergies Allergy Verified 04/28/24 10:38 Physical Exam Vitals: Vital Signs Temp Pulse Pulse Resp BP BP Pulse Ox 04/28/24 08:23 68 04/28/24 08:11 64 99 04/28/24 07:00 97.9 F 60 18 139/64 100 04/28/24 01:21 97.4 F L 78 18 181/75 100 04/28/24 00:22 97.8 F 61 15 151/67 98 04/27/24 23:31 60 22 180/78 98 04/27/24 21:24 97.8 F 68 18 138/68 100 Intake and Output 04/27/24 04/28/24 04/28/24 22:59 06:59 14:59 Intake Total 0 Balance 0 Intake: Oral 0 Other: Voiding Method Toilet # Voids 2 Weight 54.431 kg 54.431 kg Results 04/28/24 03:41 04/28/24 03:33 Cardiac Enzymes 04/27/24 04/27/24 04/28/24 Range/Units 21:43 21:43 00:28 AST 30 (14-36) U/L Troponin I <0.012 <0.012 (0.000-0.034) ng/mL 04/28/24 Range/Units 03:33 AST (14-36) U/L Troponin I 0.016 (0.000-0.034) ng/mL Coagulation 04/27/24 Range/Units 21:43 PT 10.7 (10.0-12.5) sec APTT 22.8 (22.0-30.0) sec CBC 04/27/24 04/28/24 Range/Units 21:43 03:41 WBC 10.4 9.5 (3.8-10.6) k/uL RBC 4.20 3.91 (3.80-5.40) m/uL Hgb 12.4 11.9 (11.4-16.0) gm/dL Hct 38.9 37.0 (34.0-46.0) % Plt Count 173 143 L (150-450) k/uL Comprehensive Metabolic Panel 04/27/24 04/28/24 Range/Units 21:43 03:33 Sodium 135 L 136 L (137-145) mmol/L Potassium 4.2 4.4 (3.5-5.1) mmol/L Chloride 103 105 (98-107) mmol/L Carbon Dioxide 28 26 (22-30) mmol/L BUN 23 H 27 H (7-17) mg/dL Creatinine 0.70 0.72 (0.52-1.04) mg/dL Glucose 119 H 142 H (74-99) mg/dL Calcium 8.4 8.4 (8.4-10.2) mg/dL AST 30 (14-36) U/L ALT 28 (4-34) U/L Alkaline Phosphatase 62 (38-126) U/L Total Protein 6.4 (6.3-8.2) g/dL Albumin 3.9 (3.5-5.0) g/dL Current Medications Generic Name Dose Route Start Last Admin Trade Name Freq PRN Reason Stop Dose Admin Albuterol Sulfate 2.5 mg 04/27/24 23:21 Albuterol Nebulized 2.5 Mg/3 Ml INHALATION RT-Q4H PRN Shortness Of Breath Alprazolam 0.25 mg 04/27/24 23:21 04/27/24 23:44 Alprazolam 0.25 Mg Tab PO 0.25 mg BID PRN Administration Anxiety Amlodipine Besylate 5 mg 04/28/24 09:00 Amlodipine 5 Mg Tab PO DAILY LETICIA Apixaban 5 mg 04/28/24 09:00 Apixaban 5 Mg Tab PO BID [facility] Protocol Budesonide/Formoterol Fumarate 2 puff 04/28/24 08:00 04/28/24 08:08 Symbicort 160-4.5 Mcg Inhaler INHALATION 2 puff RT-BID LETICIA Administration Dapagliflozin 5 mg 04/28/24 09:00 Dapagliflozin Propanediol 5 Mg Tablet PO DAILY [facility] Insulin Detemir 10 unit 04/27/24 23:30 04/27/24 23:55 Insulin Detemir (Levemir) 100 Unit/Ml Syr SQ Not Given BID LETICIA Ipratropium [place] 0.5 mg 04/28/24 08:00 04/28/24 08:08 Ipratropium 0.5 Mg/2.5 Ml Nebu INHALATION 0.5 mg RT-BID LETICIA Administration Melatonin 10 mg 04/27/24 23:21 Melatonin 5 Mg Tablet PO HS PRN sleep Metformin HCl 500 mg 04/28/24 07:30 Metformin 500 Mg Tab PO BID-W/MEALS LETICIA Metoprolol Succinate 50 mg 04/27/24 23:30 04/27/24 23:44 Metoprolol Succinate (Er) 50 Mg Tab.Er.24h PO 50 mg BID LETICIA Administration Mirtazapine 15 mg 04/27/24 23:30 04/27/24 23:52 Mirtazapine 15 Mg Tab PO 15 mg HS LETICIA Administration Morphine Sulfate 4 mg 04/27/24 23:19 Morphine Sulfate 4 Mg/Ml Syringe IV Q4HR PRN Severe Pain (Scale 7 to 10) Naloxone HCl 0.2 mg 04/27/24 23:19 Naloxone 0.4 Mg/Ml 1 Ml Vial IV Q2M PRN Opioid Reversal Pantoprazole Sodium 40 mg 04/28/24 09:00 Pantoprazole 40 Mg Tablet PO DAILY LETICIA Intake and Output 04/27/24 04/28/24 04/28/24 22:59 06:59 14:59 Intake Total 0 Balance 0 Intake: Oral 0 Other: Voiding Method Toilet # Voids 2 Weight 54.431 kg 54.431 kg 04/28/24 03:41 04/28/24 03:33
--- NOTE | 2024-04-28 12:47 | P.HPIM ---
History of Present Illness Patient pleasant 83-year-old female came in with chest pressure-like sensation on the left side of the chest improved with nitroglycerin apparently had atrial fibrillation in the ambulance as per the patient. Patient does have a pacemaker which was interrogated which showed some burst of atrial fibrillation with rapid ventricular rate patient was eval by cardiology recommending stress test patient had an EKG which showed sinus rhythm without any acute ST-T wave changes chest x-ray mild cardiomegaly, BNP is within normal limits patient had an echocardiogram in June 2023 which showed ejection fraction of 55 to 60% cardiac catheterization in 2017 showed mild disease in RCA and left main disease and mild in-stent restenosis of proximal circumflex REVIEW OF SYSTEMS: All other systems are negative except those mentioned in the HPI PHYSICAL EXAMINATION: GENERAL: The patient is alert and oriented x3, not in any acute distress. Well developed, well nourished. HEENT: Pupils are round and equally reacting to light. EOMI. No scleral icterus. No conjunctival pallor. Normocephalic, atraumatic. No pharyngeal erythema. No thyromegaly. CARDIOVASCULAR: S1 and S2 present. No murmurs, rubs, or gallops. PULMONARY: Chest is clear to auscultation, no wheezing or crackles. ABDOMEN: Soft, nontender, nondistended, normoactive bowel sounds. No palpable organomegaly. MUSCULOSKELETAL: No joint swelling or deformity. EXTREMITIES: No cyanosis, clubbing, or pedal edema. NEUROLOGICAL: Gross neurological examination did not reveal any focal deficits. SKIN: No rashes. Assessment and plan Chest pain: Patient will undergo stress test if that is negative possibly can be discharged if cleared by cardiology paroxysmal atrial fibrillation: Continue with present rate control medications and patient is not on Eliquis which will be continued -Permanent pacemaker -History of lung cancer in remission -COPD without any acute exacerbation -Hypertension -Hyperlipidemia -History of CVA/TIA -Continue nicotine use: Counseling was provided If cleared by cardiology patient will be discharged today DVT prophylaxis: On anticoagulation with Eliquis Past Medical History Past Medical History: Atrial Fibrillation, Cancer, Heart Failure, COPD, CVA/TIA, Diabetes Mellitus, Deep Vein Thrombosis (DVT), Fibromyalgia, GERD/Reflux, Hyperlipidemia, Hypertension, Osteoarthritis (OA), Pneumonia, Sleep Apnea/CPAP/BIPAP, Vascular Disorder Additional Past Medical History / Comment(s): back pain , lung cancer-radiation opnly, HOME 02 2 LITERS [place], BLOOD CLOT AFTER SX, CVA LT SIDE AFFECTED SINCE RESOLVED, HIATAL HERNIA. SHINGLES 30 YEARS AGO, DOES'NT USE CPAP MACHINE.in past for short period of time took oral meds for dm-then taken off meds-pt stated not considered diabetic now but occ will check bs., macular degeneration.past broken rt leg and lt wrist. Raynauds. Pt currently has 3 fractured ribs on the right that she has "had for years and will not heal". History of Any Multi-Drug Resistant Organisms: MRSA Date of last positivie culture/infection: 09/25/16 MDRO Source:: BRONCH WASH Past Surgical History: Cholecystectomy, Heart Catheterization With Stent, Orthopedic Surgery Additional Past Surgical History / Comment(s): rt leg repaired after break-has pins, lt wrist-plate and screws. lung bx, stents tung groins. Past Anesthesia/Blood Transfusion Reactions: Family History of Problems w/ Anesthesia Additional Past Anesthesia/Blood Transfusion Reaction / Comment(s): daughter has diff waking after aa Date of Last Stent Placement:: unk Type of Cardiac Device: Permanent Pacemaker Device Placement Date:: 09/25/20 Past Psychological History: No Psychological Hx Reported Additional Psychological History / Comment(s): Pt lives alone. Daughters live [place] [facility]. Uses home O2, 2L. Uses walker if she feels "wobbly" Smoking Status: Former smoker Past Alcohol Use History: Occasional Additional Past Alcohol Use History / Comment(s): started smopking at age 14(1955), quit 2016 Past Drug Use History: None Reported - Past Family History Father Family Medical History: Congestive Heart Failure (CHF), COPD Additional Family Medical History / Comment(s): emphysema Mother Family Medical History: Cancer Medications and Allergies Home Medications Medication Instructions Recorded Confirmed Type Fluticasone/Umeclidin/Vilanter 1 puff INHALATION RT-DAILY 04/19/20 04/28/24 History [Trelelionel Ellipta 100-62.5-25] Albuterol Sulfate [Albuterol 2 puff INHALATION RT-Q4H PRN 12/01/22 04/28/24 History Sulfate Hfa] Pantoprazole Sodium [Protonix] 20 mg PO DAILY 12/01/22 04/28/24 History amLODIPine [Norvasc] 5 mg PO DAILY #30 tab 12/02/22 04/28/24 Rx Metoprolol Succinate (ER) [Toprol 50 mg PO BID 06/27/23 04/28/24 History XL] Apixaban [Eliquis] 5 mg PO BID 04/07/24 04/28/24 History Benzonatate [Tessalon Perle] 200 mg PO TID PRN 04/07/24 04/28/24 History Cyanocobalamin (Vitamin B-12) 1,000 mcg PO DAILY 04/07/24 04/28/24 History [Vitamin B-12] DULoxetine HCL [Cymbalta] 60 mg PO DAILY 04/07/24 04/28/24 History Docusate [Colace] 100 mg PO HS PRN 04/07/24 04/28/24 History Empagliflozin [Jardiance] 10 mg PO DAILY 04/07/24 04/28/24 History Lactulose 20 gm PO DAILY PRN 04/07/24 04/28/24 History Melatonin 10 mg PO HS PRN 04/07/24 04/28/24 History Mirtazapine [Remeron] 15 mg PO HS 04/07/24 04/28/24 History metFORMIN HCL ER [Glucophage XR] 500 mg PO W/SUPPER 04/07/24 04/28/24 History ALPRAZolam [Xanax] 0.25 mg PO BID PRN #4 tab 04/13/24 04/28/24 Rx predniSONE See Taper PO DIRECTED #30 tab 04/13/24 04/28/24 Rx traMADol HCL 50 mg PO Q6H PRN #4 tab 04/13/24 04/28/24 Rx Amoxic-Pot Clav 875-125Mg 1 tab PO Q12HR 04/28/24 04/28/24 History [Augmentin 875-125] Folic Acid 1 mg PO DAILY 04/28/24 04/28/24 History INSULIN LISPRO (HumaLOG) [humaLOG] See Protocol SQ ACHS 04/28/24 04/28/24 History Insulin Glargine,Hum.rec.anlog 10 units SQ BID 04/28/24 04/28/24 History [Lantus Solostar Pen] Thiamine [Vitamin B-1] 100 mg PO DAILY 04/28/24 04/28/24 History Triamcinolone Acetonide 1 spray EA NOSTRIL Q12H 04/28/24 04/28/24 History [Triamcinolone Acetonide 0.055MG Nasal] Allergies Allergy/AdvReac Type Severity Reaction Status Date / Time No Known Allergies Allergy Verified 04/28/24 10:38 Physical Exam Vitals: Vital Signs Temp Pulse Pulse Resp BP BP Pulse Ox 04/28/24 08:23 68 04/28/24 08:11 64 99 04/28/24 07:00 97.9 F 60 18 139/64 100 04/28/24 01:21 97.4 F L 78 18 181/75 100 04/28/24 00:22 97.8 F 61 15 151/67 98 04/27/24 23:31 60 22 180/78 98 04/27/24 21:24 97.8 F 68 18 138/68 100 Intake and Output 04/27/24 04/28/24 04/28/24 22:59 06:59 14:59 Intake Total 0 Balance 0 Intake: Oral 0 Other: Voiding Method Toilet # Voids 2 Weight 54.431 kg 54.431 kg Results CBC & Chem 7: 04/28/24 03:41 04/28/24 03:33 Labs: Abnormal Lab Results - Last 24 Hours (Table) 04/27/24 04/27/24 04/28/24 Range/Units 21:43 21:43 03:33 Plt Count (150-450) k/uL Neutrophils # 8.0 H (1.3-7.7) k/uL Sodium 135 L 136 L (137-145) mmol/L BUN 23 H 27 H (7-17) mg/dL Glucose 119 H 142 H (74-99) mg/dL POC Glucose (mg/dL) (70-110) mg/dL 04/28/24 04/28/24 Range/Units 03:41 05:56 Plt Count 143 L (150-450) k/uL Neutrophils # (1.3-7.7) k/uL Sodium (137-145) mmol/L BUN (7-17) mg/dL Glucose (74-99) mg/dL POC Glucose (mg/dL) 114 H (70-110) mg/dL Thrombosis Risk Factor Assmnt - Choose All That Apply Any of the Below Risk Factors Present?: Yes Each Factor Represents 1 point: Abnormal pulmonary function (COPD) Other Risk Factors: Yes Each Risk Factor Represents 3 Points: Age 75 years or older Other congenital or acquired thrombophilia - If yes, enter type in comment: No Thrombosis Risk Factor Assessment Total Risk Factor Score: 4 Thrombosis Risk Factor Assessment Level: Moderate Risk
--- NOTE | 2024-04-28 15:48 | NM ---
EXAMINATION TYPE: NM stress lexiscan cardiolite DATE OF EXAM: 04/28/2024 COMPARISON: NONE HISTORY: Chest pain TECHNIQUE: After the intravenous administration of 10.3 mCi Tc 99m Sestamibi - Cardiolite resting SP ECT images acquired 75 minutes post injection. At peak stress 23.7 mCi Tc 99m Sestamibi - Stress images obtained 60 minutes post injection The patient was stressed with 0.4mg Lexiscan. FINDINGS: No fixed defects are evident No reversible stress defects on Spect images Wall motion is normal Ejection fraction is calculated to be 73 %. IMPRESSION: 1. No stress-induced ischemic changes. [facility], Workstation: [facility], 04/28/2024 3:46 PM
[2024-04-28 15:50] LABS: Glucose,Whole Blood 128 mg/dL (70-110)
[2024-04-28] MEDS: APIXABAN 5 MG TAB PO SCH (16:01)
[2024-04-28] MEDS: INSULIN ASPART (NovoLOG) 100 UNIT/ML VIAL SQ SCH (16:04)
[2024-04-28] MEDS: DAPAGLIFLOZIN PROPANEDIOL 5 MG TABLET PO SCH (16:09)
[2024-04-28 17:42] LABS: Glucose,Whole Blood 153 mg/dL (70-110)
[2024-04-28 20:11] LABS: Glucose,Whole Blood 126 mg/dL (70-110)
[2024-04-28] MEDS: DOCUSATE 100 MG CAP PO SCH (23:16)
[2024-04-29 05:43] LABS: Glucose,Whole Blood 149 mg/dL (70-110)
--- NOTE | 2024-04-29 06:57 | CA ---
Lexiscan Nuclear Stress Test Report Name: Jenni Hercules Exam Date: 04/28/2024 12:53 Exam Location: [place] Stress Ht (in): 64 Wt (lb): 120 BSA: 1.57 Ordering Phys: Camille Mccall Referring Phys: EDUARDA Technologist: ARNOLD Age: 83 Gender: F : 1940 Procedure CPT: Indications: Reflex order-Stress test ICD-10 Codes: Patient History: Chest pain, Shortness of breath, palpitations and hypertension. Medications: Meds past 24 hrs: Pretest Chest Pain: STRESS TEST Lexiscan Protocol Exercise Duration (min:sec): 02:[address] Depressions (mm): Angina Score: Jones Score: Resting HR (bpm): 64 Peak HR (bpm): 65 Resting BP (mmHg): 150 / 61 Peak BP (mmHg): 133 / 55 MPHR: 136 Target HR: 116 % MPHR: 48 METS: 1.0 Total Dose: Peak Dose: Atropine: Double Product: 8645 BP Response: Stress Termination: Infusion complete Stress Symptoms: No chest pain or symptoms Stress Summary: ECG ANALYSIS Resting ECG: Stress ECG: CONCLUSIONS At baseline EKG showed atrial paced rhythm, normal axis, no significant ST-T wave abnormalities. Patient recieved IV infusion of Lexiscan 0.4mg and at peak infusion EKG showed no change from baseline. Conclusions: 1. Normal EKG response to Lexiscan infusion 2. Nuclear imaging to be reported separately. Dr. Carorll Mortensen DO (Electronically Signed) Final Date: 29 April 2024 06:57
--- NOTE | 2024-04-29 06:57 | CA ---
Transthoracic Echo Report Name: Jenni Hercules Age: 83 Gender: F : 1940 Exam Date: 04/28/2024 12:34 Exam Location: [facility] Ht (in): 64 Wt (lb): 120 Ordering Physician: Camille Mccall Attending/Referring Phys: [id number], Stefany Battery Vent Plug Inserter Kat Brunner RDCS Procedure CPT: Indications: CP Cardiac Hx: Technical Quality: Good Contrast 1: Total Dose (mL): Contrast 2: Total Dose (mL): MEASUREMENTS (Male / Female) Normal Values 2D ECHO LV Diastolic Diameter PLAX 4.2 cm 4.2 - 5.9 / 3.9 - 5.3 cm LV Systolic Diameter PLAX 2.3 cm IVS Diastolic Thickness 0.9 cm 0.6 - 1.0 / 0.6 - 0.9 cm LVPW Diastolic Thickness 0.8 cm 0.6 - 1.0 / 0.6 - 0.9 cm LV Relative Wall Thickness 0.4 RV Internal Dim ED PLAX 1.8 cm LA Systolic Diameter LX 3.8 cm 3.0 - 4.0 / 2.7 - 3.8 cm LV Diastolic Volume MOD BP 33.5 cm??? 67 - 155 / 56 - 104 cm??? LV Systolic Volume MOD BP 11.3 cm??? 22 - 58 / 19 - 49 cm??? LV Ejection Fraction MOD BP 66.4 % >= 55 % LV Cardiac Index MOD BP 965.6 cm???/min???m??? LV Diastolic Volume MOD 4C 36.5 cm??? LV Systolic Volume MOD 4C 10.6 cm??? LV Ejection Fraction MOD 4C 70.9 % LV Cardiac Index MOD 4C 1123.6 cm???/min???m??? LV Diastolic Length 4C 6.3 cm LV Systolic Length 4C 5.0 cm LV Diastolic Volume MOD 2C 30.2 cm??? LV Systolic Volume MOD 2C 11.0 cm??? LV Ejection Fraction MOD 2C 63.6 % LV Cardiac Index MOD 2C 834.1 cm???/min???m??? LV Diastolic Length 2C 6.2 cm LV Systolic Length 2C 5.4 cm LA Volume 38.3 cm??? 18 - 58 / 22 - 52 cm??? LA Volume Index 24.4 cm???/m??? 16 - 28 cm???/m??? M-MODE Aortic Root Diameter MM 3.2 cm LA Systolic Diameter MM 4.0 cm LA Ao Ratio MM 1.3 AV Cusp Separation MM 1.7 cm DOPPLER AI Peak Velocity 210.5 cm/s AI Peak Gradient 17.7 mmHg AI Pressure Half Time 957.3 ms MV Area PHT 2.1 cm??? Mitral E Point Velocity 86.9 cm/s Mitral A Point Velocity 106.8 cm/s Mitral E to A Ratio 0.8 MV Deceleration Time 360.1 ms TR Peak Velocity 254.9 cm/s TR Peak Gradient 26.0 mmHg FINDINGS Left Ventricle Left ventricular ejection fraction is estimated at 60-65 %.Left ventricular wall thickness normal. Normal left ventricular systolic function with no obvious regional wall motion abnormalities. Left ventricular cavity size normal. Right Ventricle Normal right ventricular size and function. Right ventricular systolic pressure within normal limits. Right Atrium Normal right atrial size. Catheter/pacemaker wire in the right atrial cavity. Left Atrium Mild left atrial dilatation. Mitral Valve Mitral valve thickened. Trace to mild mitral regurgitation. No mitral stenosis. Aortic Valve Trileaflet aortic valve. Trace to mild aortic regurgitation. No aortic stenosis. Tricuspid Valve Structurally normal tricuspid valve. [id number] tricuspid regurgitation. No tricuspid stenosis. Pulmonic Valve Structurally normal pulmonic valve. Trace pulmonic regurgitation. No pulmonic stenosis. Pericardium No pericardial or pleural effusion. Aorta Normal size aortic root and proximal ascending aorta. CONCLUSIONS Left ventricular ejection fraction 60-65% Cinda mild mitral regurgitation Trace to mild aortic regurgitation Mild to moderate tricuspid regurgitation No pericardial effusion Previewed by: Dr. Carroll Mortensen DO (Electronically Signed) Final Date: 29 April 2024 06:56
--- NOTE | 2024-04-29 09:24 | P.PN ---
Subjective HISTORY OF PRESENT ILLNESS: This is a 83-year-old female with a past medical history significant for COPD on home oxygen, paroxysmal atrial fibrillation, permanent pacemaker implantation, hypertension, hyperlipidemia, carotid stenosis, TIA/CVA, and coronary artery disease. Patient follows in the office with Dr. Lance. We have been asked to see the patient in consultation for chest pain. Patient examined at the bedside. Patient states she has been having some chest pain for the past few days. She states she took nitro without relief. She called 911. She states she was in Af[facility] in the ambulance. She states in the ER, she had an episode of severe chest pain. She received her home medications and morphine and states the pain resolved. There are no telemetry tracings available from EMS in the patients paper chart. Pacemaker was interrogated revealing some short bursts of atrial fibrillation with RVR. DIAGNOSTICS: - EKG reveals sinus mechanism with no signs of acute ischemia. Repeat EKG reveals atrial paced rhythm. Third EKG also reveals atrial paced rhythm. - Chest xray mild cardiomegaly and chronic emphysematous change. Suspect mild central vascular congestion. - Laboratory data: WBC 9.5. Hemoglobin 11.9. Platelet count 143. Sodium 136. Potassium 4.4. BUN 27. Creatinine 0.72. Troponin negative x 3. proBNP 577. - Current home cardiac medications list is not updated at the time of this dictation - Most recent echocardiogram obtained in June 2023 revealed ejection fraction 55 to 60%, trace to mild MR, mild TR - Cardiac catheterization history: October 2016 revealing mild disease in the RCA, mild left main disease, mild in-stent restenosis of the proximal circumflex, intermediate disease of OM1 04/29/2024 Patient examined this morning at the bedside. At the time of examination she denies chest pain or pressure. She denies shortness of breath. She underwent Lexiscan stress test yesterday which was negative for ischemia. Echocardiogram completed revealing ejection fraction 60 to 65%, trace to mild MR, trace to mild AR, mild to moderate TR. Patient does report having an episode of her chest burning this morning. Patient states she was sitting in bed at this time not doing anything. Upon review of telemetry, patient did have an increase in her pacemaker rate. PHYSICAL EXAM: VITAL SIGNS: Reviewed. GENERAL: Well-developed in no acute distress. HEENT: Head is normocephalic. Pupils are equal, round. Sclerae anicteric. Mucous membranes of the mouth are moist. Neck supple. No JVD or thyromegaly LUNGS: Respirations even and unlabored. Lungs essentially clear to auscultation bilaterally. HEART: Regular rate and rhythm. S1 and S2 heard. ABDOMEN: Soft. Nondistended. Nontender. EXTREMITIES: Normal range of motion. No clubbing or cyanosis. Peripheral pulses intact. No lower extremity edema NEUROLOGIC: Awake and alert. Oriented x 3. ASSESSMENT: Chest pain Coronary artery disease with previous stenting of the left circumflex Paroxysmal atrial fibrillation/flutter History of permanent pacemaker implantation, [employer] Left carotid stenosis, 60% History of lung cancer with recently found new pulmonary nodules COPD on home oxygen Hypertension Hyperlipidemia History of TIA/CVA Former nicotine dependence PLAN: Continue current cardiac medications Patient reports having an episode of her chest burning this morning. Suspect symptoms are GI in etiology. However upon review of telemetry patient did have an increase in her heart rate per her pacemaker while she was at rest. Possible inappropriate rate response from device. Discussed having this setting turned off with patient however she states that she does not feel that this is causing her issues. We will defer at this time. Patient may be discharged home today from a cardiac standpoint and follow-up in the office with Dr. Lance We will sign off. Please reconsult if needed. Nurse practitioner note has been reviewed by physician. Signing provider agrees with the documented findings, assessment, and plan of care documented by STREAM CONTROL OFFICER as a scribe. Objective - Vital Signs Vital signs: Vital Signs Temp 98.4 F 04/29/24 07:00 Pulse 76 04/29/24 08:27 Resp 17 04/29/24 07:00 BP 122/72 04/29/24 07:00 Pulse Ox 97 04/29/24 08:18 FiO2 Intake & Output 04/28/24 04/29/24 04/29/24 18:59 06:59 18:59 Intake Total 480 480 460 Balance 480 480 460 Intake: Oral 480 480 460 Other: Voiding Method Toilet Toilet # Voids 1 3 - Labs CBC & Chem 7: 04/28/24 03:41 04/28/24 03:33 Labs: Abnormal Lab Results - Last 24 Hours (Table) 04/28/24 04/28/24 04/28/24 Range/Units 03:41 15:48 17:39 POC Glucose (mg/dL) 128 H 153 H (70-110) mg/dL Hemoglobin A1c 7.3 H (<=6.0) % 04/28/24 04/29/24 Range/Units 20:09 05:41 POC Glucose (mg/dL) 126 H 149 H (70-110) mg/dL Hemoglobin A1c (<=6.0) %
[2024-04-29 12:08] LABS: Glucose,Whole Blood 149 mg/dL (70-110)
[2024-04-29 14:06] VITALS: BP 161/71; PULSE 66; RESP 15; TEMP 97.4
--- NOTE | 2024-05-02 06:07 | P.DS ---
Providers Date of admission: 04/27/24 23:21 Expected date of discharge: 04/29/24 Attending physician: Samara Pack Primary care physician: Nohemi Estrada Hospital Course: Final diagnosis -Chest pain: Ruled out ACS, stress testing was negative -paroxysmal atrial fibrillation -Permanent pacemaker -History of lung cancer in remission -COPD without any acute exacerbation -Hypertension -Hyperlipidemia -History of CVA/TIA -Continue nicotine use: Counseling was provided DVT prophylaxis: On anticoagulation with Eliquis Discharge disposition Patient is being discharged in a stable condition with guarded prognosis to home. Patient will follow-up with Dr. Estrada in the outpatient setting upon discharge. Patient is to continue with current medications and outpatient follow-up with cardiology as scheduled. Total time taken is greater than 35 minutes. Hospital course This is a 83-year-old female who was recently admitted with chest pain, ruled out ACS. Patient evaluated by cardiology and underwent cardiac stress test which was negative and monitored overnight additionally on telemetry monitoring reported a brief episode of chest pain that had resolved and cardiology notified with no plans of further intervention recommending outpatient follow-up. Patient has been cleared by cardiology for discharge. Please refer to cardiology notes for further HPI. Patient will also follow-up with GI outpatient as she has been having ongoing epigastric problems as well. Patient was informed of following up with GI on previous admission as well. Currently no reports of chest pain, shortness of breath, or palpitations. Patient is a febrile. No reports of nausea or vomiting and patient is tolerating diet. Patient will be discharged home today. Guarded prognosis. Physical exam: Gen: This is a 83-year-old female who is awake, alert and oriented x 3, thin built, elderly appearing HEENT: Head is atraumatic, normocephalic. Pupils equal, round. Sclerae is anicteric. NECK: Supple. No JVD. No lymphadenopathy. No thyromegaly. LUNGS: Diminished breath sounds bilaterally otherwise clear to auscultation. No wheezes or rhonchi. No intercostal retractions. HEART: S1, S2 are muffled ABDOMEN: Soft. Thin. Bowel sounds are present. No masses. No tenderness. EXTREMITIES: No pedal edema. No calf tenderness. NEUROLOGICAL: Patient is awake, alert and oriented x3. Cranial nerves 2 through 12 are grossly intact. Please refer to medication reconciliation sheet for a list of medications. The impression and plan of care has been dictated by Adrianna Arguelles, Nurse Practitioner as directed. Dr. Jose Alfredo MD I have performed a history and examination and MDM of this patient, discussed the same with the dictator, and agree with the dictator's assessment and plan as written ,documented as a scribe. Based on total visit time, I have performed more than 50% of the visit. Patient Condition at Discharge: Stable Plan - Discharge Summary Discharge Rx Participant: No New Discharge Prescriptions: New Mag Hydrox/Al Hydrox/Simeth [Maalox] 30 ml PO DAILY PRN #240 ml PRN Reason: Indigestion Continue Fluticasone/Umeclidin/Vilanter [Trelegy Ellipta 100-62.5-25] 1 puff INHALATION RT-DAILY Albuterol Sulfate [Albuterol Sulfate Hfa] 2 puff INHALATION RT-Q4H PRN PRN Reason: Shortness Of Breath amLODIPine [Norvasc] 5 mg PO DAILY #30 tab Docusate [Colace] 100 mg PO HS PRN PRN Reason: Constipation Cyanocobalamin (Vitamin B-12) [Vitamin B-12] 1,000 mcg PO DAILY Apixaban [Eliquis] 5 mg PO BID metFORMIN HCL ER [Glucophage XR] 500 mg PO W/SUPPER Melatonin 10 mg PO HS PRN PRN Reason: sleep DULoxetine HCL [Cymbalta] 60 mg PO DAILY Mirtazapine [Remeron] 15 mg PO HS Benzonatate [Tessalon Perle] 200 mg PO TID PRN PRN Reason: Cough predniSONE See Taper PO DIRECTED #30 tab Folic Acid 1 mg PO DAILY Insulin Glargine,Hum.rec.anlog [Lantus Solostar Pen] 10 units SQ BID INSULIN LISPRO (HumaLOG) [humaLOG] See Protocol SQ ACHS Thiamine [Vitamin B-1] 100 mg PO DAILY Pantoprazole Sodium [Protonix] 20 mg PO DAILY Metoprolol Succinate (ER) [Toprol XL] 50 mg PO BID Lactulose 20 gm PO DAILY PRN PRN Reason: Constipation Empagliflozin [Jardiance] 10 mg PO DAILY ALPRAZolam [Xanax] 0.25 mg PO BID PRN #4 tab PRN Reason: Anxiety traMADol HCL 50 mg PO Q6H PRN #4 tab PRN Reason: Pain Triamcinolone Acetonide [Triamcinolone Acetonide 0.055MG Nasal] 1 spray EA NOSTRIL Q12H Discontinued Amoxic-Pot Clav 875-125Mg [Augmentin 875-125] 1 tab PO Q12HR Discharge Medication List Fluticasone/Umeclidin/Vilanter [Trelegy Ellipta 100-62.5-25] 1 puff INHALATION RT-DAILY 04/19/20 [History] Albuterol Sulfate [Albuterol Sulfate Hfa] 2 puff INHALATION RT-Q4H PRN 12/01/22 [History] Pantoprazole Sodium [Protonix] 20 mg PO DAILY 12/01/22 [History] amLODIPine [Norvasc] 5 mg PO DAILY #30 tab 12/02/22 [Rx] Metoprolol Succinate (ER) [Toprol XL] 50 mg PO BID 06/27/23 [History] Apixaban [Eliquis] 5 mg PO BID 04/07/24 [History] Benzonatate [Tessalon Perle] 200 mg PO TID PRN 04/07/24 [History] Cyanocobalamin (Vitamin B-12) [Vitamin B-12] 1,000 mcg PO DAILY 04/07/24 [History] DULoxetine HCL [Cymbalta] 60 mg PO DAILY 04/07/24 [History] Docusate [Colace] 100 mg PO HS PRN 04/07/24 [History] Empagliflozin [Jardiance] 10 mg PO DAILY 04/07/24 [History] Lactulose 20 gm PO DAILY PRN 04/07/24 [History] Melatonin 10 mg PO HS PRN 04/07/24 [History] Mirtazapine [Remeron] 15 mg PO HS 04/07/24 [History] metFORMIN HCL ER [Glucophage XR] 500 mg PO W/SUPPER 04/07/24 [History] ALPRAZolam [Xanax] 0.25 mg PO BID PRN #4 tab 04/13/24 [Rx] predniSONE See Taper PO DIRECTED #30 tab 04/13/24 [Rx] traMADol HCL 50 mg PO Q6H PRN #4 tab 04/13/24 [Rx] Folic Acid 1 mg PO DAILY 04/28/24 [History] INSULIN LISPRO (HumaLOG) [humaLOG] See Protocol SQ ACHS 04/28/24 [History] Insulin Glargine,Hum.rec.anlog [Lantus Solostar Pen] 10 units SQ BID 04/28/24 [History] Thiamine [Vitamin B-1] 100 mg PO DAILY 04/28/24 [History] Triamcinolone Acetonide [Triamcinolone Acetonide 0.055MG Nasal] 1 spray EA NOSTRIL Q12H 04/28/24 [History] Mag Hydrox/Al Hydrox/Simeth [Maalox] 30 ml PO DAILY PRN #240 ml 04/29/24 [Rx] Follow up Appointment(s)/Referral(s): Nohemi Estrada MD [Primary Care Provider] - 1-2 days Lazaro Lance MD [STAFF PHYSICIAN] - 1 Week Activity/Diet/Wound Care/Special Instructions: Activity limited until follow-up Follow-up with primary care provider on discharge Follow-up with cardiology outpatient Continue taking medications as prescribed Discharge Disposition: HOME SELF-CARE
== END 2024-04-29 14:45 | disposition home or self-care (01) ==
LOC: EC 21:12 → 6NMEDSUR 23:21
PROVIDERS: ADMIT Hospitalist; ATTEND Hospitalist
DX: R07.9 Chest pain, unspecified (principal); I48.0 Paroxysmal atrial fibrillation; I25.10 Atherosclerotic heart disease of native coronary artery without angina pectoris; I65.22 Occlusion and stenosis of left carotid artery; E78.5 Hyperlipidemia, unspecified; I11.0 Hypertensive heart disease with heart failure; I50.9 Heart failure, unspecified; I73.00 Raynaud's syndrome without gangrene; J44.9 Chronic obstructive pulmonary disease, unspecified; K21.9 Gastro-esophageal reflux disease without esophagitis; M79.7 Fibromyalgia; Z79.01 Long term (current) use of anticoagulants; Z79.4 Long term (current) use of insulin; Z79.51 Long term (current) use of inhaled steroids; Z79.84 Long term (current) use of oral hypoglycemic drugs; Z79.899 Other long term (current) drug therapy; Z85.118 Personal history of other malignant neoplasm of bronchus and lung; Z86.73 Personal history of transient ischemic attack (TIA), and cerebral infarction without residual deficits; Z90.49 Acquired absence of other specified parts of digestive tract; Z95.0 Presence of cardiac pacemaker; Z95.5 Presence of coronary angioplasty implant and graft; Z99.81 Dependence on supplemental oxygen
CPT/HCPCS: 96374; 99285; 36415; 94640 ×4; 94760 ×2; 93005; 93017; 93306; 83880; 80053; 80048; 83735; 84484 ×2; 85025 ×2; 85610; 85730; 83036; 71046; 78452; G0378 ×3; A9500; J2270; J2785

== ENCOUNTER → 2024-05-19 | Outpatient (CLI) | payer MEDICARE, OTHER ==
--- NOTE | 2024-05-20 18:29 | US ---
EXAMINATION TYPE: US bladder DATE OF EXAM: 05/19/2024 COMPARISON: NONE CLINICAL INDICATION: Female, 83 years old with history of R10.9 Abdominal pain; TECHNIQUE: Grayscale and color doppler imaging of the bilateral kidneys and urinary bladder. 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 Bilateral Jets seen: Yes Normal Post Void Residual (less than 50ml): Yes IMPRESSION: 1. Minimal postvoid residual. 2. No acute process. [facility], , 05/20/2024 6:26 PM
== END | disposition home or self-care (01) ==
LOC: RADUSWWP 15:09
PROVIDERS: ATTEND Family Medicine
DX: R39.198 Other difficulties with micturition (principal)
CPT/HCPCS: 76857

== ENCOUNTER → 2024-06-09 | Outpatient (CLI) | payer MEDICARE, OTHER | END | disposition home or self-care (01) | LOC: RADPETMAIN 11:58 | PROVIDERS: ATTEND Radiology Radiation Oncology | DX: Z53.9 Procedure and treatment not carried out, unspecified reason (principal) ==

== ENCOUNTER → 2024-06-16 | Outpatient (CLI) | payer MEDICARE, OTHER ==
--- NOTE | 2024-06-18 08:39 | PE ---
EXAMINATION TYPE: PET CT fusion skull to thigh DATE OF EXAM: 06/16/2024 CLINICAL INDICATION:Female, 83 years old with history of C34.12 LUNG CANCER; TECHNIQUE: Following the intravenous administration of 9.86 mCi of F-18 FDG, whole body images are performed from the skull base to the Mid thigh. Images are reviewed on the computer in the coronal, axial, and sagittal planes. Reconstructed rotating images are created on independent workstation and reviewed on the computer. A non-contrast CT is performed in conjunction with the PET scan. Glucose level 92 mg/dL CT DLP: 23 1 mGycm, Automated exposure control for dose reduction was used. COMPARISON: CT 04/08/2024, PET/CT 02/05/2024, MRI: None FINDINGS: Mediastinal SUV mean is 3.25. Hepatic parenchyma SUV mean 2.8 SKULL BASE AND NECK: No suspicious radiotracer activity. CHEST, MEDIASTINUM, AND HILAR REGION: * Left upper lobe lateral pulmonary nodule Max SUV 13.56, previously 6.8 measuring 16 mm previously 13 mm on 04/08/2024. * left medial upper lobe pulmonary nodule Max SUV 18.2, previously 9.1. Measuring 10 mm previously 7 mm on 04/08/2024 * Right upper lobe pulmonary nodule Max SUV 12.8 previously 8.4. Measuring 13 mm previously 7 mm on 04/08/2024 * Subcarinal lymph node max SUV 18.2 previously not seen. Measuring 14 mm. * Left superior perihilar lymph node max SUV 14.5 previously 2.2 measuring 18 mm. ABDOMEN AND PELVIS: No suspicious radiotracer activity. MUSCULOSKELETAL STRUCTURES: No suspicious radiotracer activity. Linear uptake within the T8 vertebral body max SUV 6.[address]: Bilateral aphakia. Moderate atherosclerotic calcification of the arterial vasculature. Left chest wall to lead cardiac pacemaking device. Moderate coronary arterial calcifications. Left renal cyst. The gallbladder surgically absent. Colonic diverticulosis. Calcified fibroids. Degenerative changes of the visualized spine. Moderate centrilobular emphysematous changes. Remote right-sided rib fractures with right lower lobe subsegmental scarring from prior trauma/surgic al intervention. Stable medial left lower lobe 4 mm calcified granuloma. Remote fracture of the inferior right pubic ramus and pubic symphysis. IMPRESSION: 1. Progression of disease with increasing size and metabolic activity of pulmonary nodules. New subc arinal and left pulmonary hilum lymph nodes also present. 2. T8 vertebral body superior endplate compression deformity further evaluation with MRI recommended . [facility], , 06/18/2024 8:37 AM
== END | disposition home or self-care (01) ==
LOC: RADPETMAIN 15:58
PROVIDERS: ATTEND Radiology Radiation Oncology
DX: C34.12 Malignant neoplasm of upper lobe, left bronchus or lung (principal); R91.8 Other nonspecific abnormal finding of lung field; K57.30 Diverticulosis of large intestine without perforation or abscess without bleeding; H27.03 Aphakia, bilateral
CPT/HCPCS: 78815; A9552

== ENCOUNTER → 2024-06-20 | Day surgery (SDC) | payer MEDICARE, OTHER ==
[~2024-06-20] MED LIST: SODIUM CHLORIDE 0.9% 1,000 ML IV SCH
[2024-06-20 10:04] LABS: Glucose,Whole Blood 138 mg/dL (70-110)
[2024-06-20] MEDS: IV FLUID CONTINUATION 1,000 ML IV ONE (10:04)
[2024-06-20] MEDS: SODIUM CHLORIDE 0.9% 250 ML IV ONE (10:10)
[2024-06-20 10:14] VITALS: RESP 16; TEMP 98.7
[2024-06-20 12:35] VITALS: BP 163/92; PULSE 60
--- NOTE | 2024-06-20 20:40 | P.EPPROC ---
- EP Procedure Note Electrophysiology Procedure Note: Diagnosis Recurrent presyncope Twelve-lead EKG shows atrial paced rhythm with a narrow QRS WY interval of about 250 ms Narrow QRS Tilt table test per protocol Baseline blood pressure 191/85 mmHg Baseline heart rate 60 beats a minute Patient was tilted upright from angle of 70 degrees per Immediately upon standing up there was a drop in blood pressure to 160/63 mmHg. Similar blood pressure drop was noted unclear site 30 to 40 mm drop was noted. The patient reported a pressure in the head but no loss of consciousness Subsequently her blood pressure then normalized and reached back to baseline Following that her blood pressure remained elevated. She complained of a variety of symptoms but there was no further drop in blood pressure There was no evidence for dysautonomia Impression atrial paced rhythm on twelve-lead EKG Orthostatic drop in blood pressure, orthostatic hypotension of 30 to 40 mmHg with improvement within 2 to 4 minutes No further evidence for dysautonomia Patient's blood pressure remained elevated thereafter as it was at baseline
[2024-06-22 04:52] LABS: Glucose,Whole Blood 118 mg/dL (70-110)
== END ==
LOC: CATHEP 08:53
PROVIDERS: ATTEND Internal Medicine Clinical Cardiac Electrophysiology
DX: I48.0 Paroxysmal atrial fibrillation (principal); I95.1 Orthostatic hypotension; I49.5 Sick sinus syndrome; R77.9 Abnormality of plasma protein, unspecified; C34.90 Malignant neoplasm of unspecified part of unspecified bronchus or lung; E44.0 Moderate protein-calorie malnutrition; E11.65 Type 2 diabetes mellitus with hyperglycemia; J96.11 Chronic respiratory failure with hypoxia; Z72.820 Sleep deprivation; Z79.84 Long term (current) use of oral hypoglycemic drugs; Z79.899 Other long term (current) drug therapy
CPT/HCPCS: 93660

== ENCOUNTER 2024-06-21 15:29 | Inpatient (IN) | payer MEDICARE, OTHER ==
--- NOTE | 2024-06-21 15:48 | ED ---
General Adult HPI - General Chief complaint: Altered Mental Status Stated complaint: poss TIA Time Seen by Provider: 06/21/24 15:34 Source: EMS Mode of arrival: EMS - History of Present Illness Initial comments: Dictation was produced using [employer] dictation software. please excuse any grammatical, word or spelling errors. Chief Complaint: 83-year-old female with strokelike symptoms History of Present Illness: Patient is 83-year-old female brought in by her daughter and son-in-law. Patient was last seen normal at around 1 PM yesterday. At around 230 this afternoon patient was on the phone with her son-in-law when she sounded confused. Patient's son-in-law called patient's daughter which is when EMS was called. Daughter talked to patient and she sounded confused with word finding difficulties. Patient denies any complaints at this time. Patient is requesting to go home. Denies any pain. Denies any fever, chills or night sweats. No headache. The ROS documented in this emergency department record has been reviewed and confirmed by me. Those systems with pertinent positive or negative responses have been documented in the HPI. All other systems are other negative and/or noncontributory. - Related Data Home Medications Medication Instructions Recorded Confirmed Fluticasone/Umeclidin/Vilanter 1 puff INHALATION RT-DAILY 04/19/20 06/21/24 [Trelelionel Ellipta 100-62.5-25] Albuterol Sulfate [Albuterol 2 puff INHALATION RT-Q4H PRN 12/01/22 06/21/24 Sulfate Hfa] Pantoprazole Sodium [Protonix] 20 mg PO DAILY 12/01/22 06/21/24 Metoprolol Succinate (ER) [Toprol 100 mg PO BID 06/27/23 06/21/24 XL] Apixaban [Eliquis] 5 mg PO BID 04/07/24 06/21/24 DULoxetine HCL [Cymbalta] 60 mg PO BID 04/07/24 06/21/24 Empagliflozin [Jardiance] 10 mg PO DAILY 04/07/24 06/21/24 Mirtazapine [Remeron] 15 mg PO HS 04/07/24 06/21/24 metFORMIN HCL ER [Glucophage XR] 500 mg PO W/SUPPER PRN 04/07/24 06/21/24 ALPRAZolam [Xanax] 0.25 mg PO DAILY PRN 06/21/24 06/21/24 ALPRAZolam [Xanax] 0.5 mg PO HS 06/21/24 06/21/24 Atorvastatin [Lipitor] 80 mg PO HS 06/21/24 06/21/24 predniSONE 5 mg PO DAILY 06/21/24 06/21/24 Previous Rx's Medication Instructions Recorded traMADol HCL 50 mg PO Q6H PRN #4 tab 04/13/24 Allergies Allergy/AdvReac Type Severity Reaction Status Date / Time No Known Allergies Allergy Verified 06/21/24 17:55 Review of Systems ROS Statement: Those systems with pertinent positive or pertinent negative responses have been documented in the HPI. ROS Other: All systems not noted in ROS Statement are negative. Past Medical History Past Medical History: Atrial Fibrillation, Cancer, Heart Failure, COPD, CVA/TIA, Diabetes Mellitus, Deep Vein Thrombosis (DVT), Fibromyalgia, GERD/Reflux, Hyperlipidemia, Hypertension, Osteoarthritis (OA), Pneumonia, Sleep Apnea/CPAP/BIPAP, Vascular Disorder Additional Past Medical History / Comment(s): back pain , lung cancer-radiation opnly, HOME 02 2 LITERS N/C, BLOOD CLOT AFTER SX, CVA LT SIDE AFFECTED SINCE RESOLVED, HIATAL HERNIA. SHINGLES 30 YEARS AGO, DOES'NT USE CPAP MACHINE.in past for short period of time took oral meds for dm-then taken off meds-pt stated not considered diabetic now but occ will check bs., macular degeneration.past broken rt leg and lt wrist. Raynauds. Pt currently has 3 fractured ribs on the right that she has "had for years and will not heal". History of Any Multi-Drug Resistant Organisms: MRSA Date of last positivie culture/infection: 09/25/16 MDRO Source:: BRONCH WASH Past Surgical History: Cholecystectomy, Heart Catheterization With Stent, Orthopedic Surgery Additional Past Surgical History / Comment(s): rt leg repaired after break-has pins, lt wrist-plate and screws. lung bx, stents tung groins. Past Anesthesia/Blood Transfusion Reactions: Family History of Problems w/ Anesthesia Additional Past Anesthesia/Blood Transfusion Reaction / Comment(s): daughter has diff waking after aa Date of Last Stent Placement:: unk Type of Cardiac Device: Permanent Pacemaker Device Placement Date:: 09/25/20 Past Psychological History: No Psychological Hx Reported Smoking Status: Former smoker - Past Family History Father Family Medical History: Congestive Heart Failure (CHF), COPD Additional Family Medical History / Comment(s): emphysema Mother Family Medical History: Cancer General Exam - General Exam Comments Initial Comments: PHYSICAL EXAM: General Impression: Alert and oriented x3, not in acute distress HEENT: Normocephalic atraumatic, extra-ocular movements intact, pupils equal and reactive to light bilaterally, mucous membranes moist. Cardiovascular: Heart regular rate and rhythm Chest: Able to complete full sentences, no retractions, no tachypnea Abdomen: abdomen soft, non-tender, non-distended, no organomegaly Musculoskeletal: Pulses present and equal in all extremities, no peripheral edema Motor: no focal deficits noted Neurological: CN II-XII grossly intact, no sensory deficits noted, word finding difficulties, 3+ weakness to the left lower extremity Skin: Intact with no visualized rashes Psych: Normal affect and mood Course Vital Signs 06/21/24 06/21/24 06/21/24 15:31 16:30 18:42 Temperature 98.2 F Pulse Rate 75 64 67 Respiratory 18 18 20 Rate Blood Pressure 164/86 145/73 190/80 O2 Sat by Pulse 98 98 97 Oximetry - Reevaluation(s) Reevaluation #1: 06/21/24 15:47 Clinical presentation consistent with CVA. Daughter reports that patient has history of TIA. Patient given NIH stroke scale of 4. She is having word finding difficulties along with unilateral lower extremity drift. Patient outside the window for thrombolytics. Her last known normal was more than 24 hours prior to arrival. Reevaluation #2: 06/21/24 15:48 Patient is not a candidate of tPA or thrombectomy given time of onset of symptoms. Risk outweigh the benefits at this time. EKG Findings - EKG Comments: EKG Findings:: My EKG interpretation: Ventricular rate 68, atrial paced rhythm,. Will 216, QRS 71, QTc 419. No ND prolongation, no QTC prolongation, no ST or T-wave changes noted. Overall, this EKG is unremarkable Medical Decision Making - Medical Decision Making Was pt. sent in by a medical professional or institution (, PA, SUPERVISOR TRAVEL TRAILER, urgent care, hospital, or custodial...) When possible be specific @ -No Did you speak to anyone other than the patient for history (EMS, parent, family, police, friend...)? What history was obtained from this source @ -See above Did you review nursing and triage notes (agree or disagree)? Why? @ -I reviewed and agree with nursing and triage notes Were old charts reviewed (outside hosp., previous admission, EMS record, old EKG, old radiological studies, urgent care reports/EKG's, custodial records)? Report findings @ -No old charts were reviewed Differential Diagnosis (chest pain, altered mental status, abdominal pain women, abdominal pain men, vaginal bleeding, musculoskeletal, weakness, fever, dyspnea, syncope, headache, dizziness, GI bleed, back pain, seizure, CVA, palpatations, mental health)? @ - Differential CVA: Ischemic stroke, hemorrhagic stroke, brain tumor, atypical migraine, Wernicke's encephalopathy, seizure, multiple sclerosis, meningitis, encephalitis, hypogl ycemia, Guillain-Renteria, electrolytes disturbance, myasthenia gravis.... This is not meant to be an all-inclusive list EKG interpreted by me (3pts min.). @ -See above X-rays interpreted by me (1pt min.). @ -Chest x-ray shows no acute processes CT interpreted by me (1pt min.). @ -CT brain shows no bleeding. CT angiography shows no large vessel occlusion U/S interpreted by me (1pt. min.). @ -None done What testing was considered but not performed or refused? (CT, X-rays, U/S, labs)? Why? @ -None What meds were considered but not given or refused? Why? @ -None Was smoking cessation discussed for >3mins.? @ -No Were there social determinants of health that impacted care today? How? (Homel essness, low income, unemployed, alcoholism, drug addiction, transportation, low edu. Level, literacy, decrease access to med. care, group home, rehab)? @ -No Was there de-escalation of care discussed even if they declined (Discuss DNR or withdrawal of care, Hospice)? DNR status @ -No What co-morbidities impacted this encounter? (DM, HTN, Smoking, COPD, CAD, Cancer, CVA, ARF, Chemo, Hep., AIDS, mental health diagnosis, sleep apnea, morbid obesity)? @ -None Was patient admitted / discharged? Hospital course, mention meds given and route, prescriptions, significant lab abnormalities, going to OR and other pertinent info. @ -83-year-old female presents with strokelike symptoms. Vital signs upon arrival are within acceptable limits. Patient not a candidate for thrombolytics or thrombectomy due to low NIH score. Risk outweigh the benefits. Laboratory evaluation obtained. Labs unremarkable. Imaging studies are negative. Patient given aspirin will be admitted with consultation to neurology. Case discussed with hospitalist for admission Did you discuss the management of the patient with other professionals (professionals i.e. , PA, SUPERVISOR TRAVEL TRAILER, lab, RT, psych nurse, social service liaison, director data, teacher, traffic police officer, complex case manager)? Give summary @ -See above Was critical care preformed (if so, how long)? @ -No Undiagnosed new problem with uncertain prognosis? @ -No Drug Therapy requiring intensive monitoring for toxicity (Heparin, Nitro, Insulin, Cardizem)? @ -No Were any procedures done? @ -No Diagnosis/symptom? Acute, or Chronic, or Acute on Chronic? Uncomplicated (without systemic symptoms) or Complicated (systemic symptoms)? @ -CVA Side effects of treatment? @ -No Exacerbation, Progression, or Severe Exacerbation? @ -No Poses a threat to life or bodily function? How? (Chest pain, USA, VT, pneumonia, PE, COPD, DKA, ARF, appy, cholecystitis, CVA, Diverticulitis, Homicidal, Suicidal, threat to staff... and all critical care pts) @ -yes - Lab Data Result diagrams: 06/21/24 16:43 06/21/24 16:43 Lab Results 06/21/24 06/21/24 06/21/24 Range/Units 16:43 16:43 16:43 WBC 10.3 (3.8-10.6) k/uL RBC 4.55 (3.80-5.40) m/uL Hgb 13.3 (11.4-16.0) gm/dL Hct 41.4 (34.0-46.0) % MCV 91.0 (80.0-100.0) fL MCH 29.3 (25.0-35.0) pg MCHC 32.2 (31.0-37.0) g/dL RDW 14.0 (11.5-15.5) % Plt Count 197 (150-450) k/uL MPV 8.5 Neutrophils % 68 % Lymphocytes % 23 % Monocytes % 6 % Eosinophils % 2 % Basophils % 1 % Neutrophils # 7.0 (1.3-7.7) k/uL Lymphocytes # 2.3 (1.0-4.8) k/uL Monocytes # 0.6 (0-1.0) k/uL Eosinophils # 0.2 (0-0.7) k/uL Basophils # 0.1 (0-0.2) k/uL PT 13.0 H (10.0-12.5) sec INR 1.2 H (<1.2) APTT 22.3 (22.0-30.0) sec Sodium 138 (137-145) mmol/L Potassium 4.2 (3.5-5.1) mmol/L Chloride 101 (98-107) mmol/L Carbon Dioxide 26 (22-30) mmol/L Anion Gap 11 mmol/L BUN 32 H (7-17) mg/dL Creatinine 0.76 (0.52-1.04) mg/dL Est GFR (CKD-EPI)AfAm 84 (>60 ml/min/1.73 sqM) Est GFR (CKD-EPI)NonAf 73 (>60 ml/min/1.73 sqM) Glucose 118 H (74-99) mg/dL Calcium 9.7 (8.4-10.2) mg/dL Total Bilirubin 0.8 (0.2-1.3) mg/dL AST 28 (14-36) U/L ALT 20 (4-34) U/L Alkaline Phosphatase 86 (38-126) U/L Creatine Kinase 37 (30-135) U/L Troponin I (0.000-0.034) ng/mL Total Protein 6.4 (6.3-8.2) g/dL Albumin 4.0 (3.5-5.0) g/dL 06/21/24 Range/Units 16:43 WBC (3.8-10.6) k/uL RBC (3.80-5.40) m/uL Hgb (11.4-16.0) gm/dL Hct (34.0-46.0) % MCV (80.0-100.0) fL MCH (25.0-35.0) pg MCHC (31.0-37.0) g/dL RDW (11.5-15.5) % Plt Count (150-450) k/uL MPV Neutrophils % % Lymphocytes % % Monocytes % % Eosinophils % % Basophils % % Neutrophils # (1.3-7.7) k/uL Lymphocytes # (1.0-4.8) k/uL Monocytes # (0-1.0) k/uL Eosinophils # (0-0.7) k/uL Basophils # (0-0.2) k/uL PT (10.0-12.5) sec INR (<1.2) APTT (22.0-30.0) sec Sodium (137-145) mmol/L Potassium (3.5-5.1) mmol/L Chloride (98-107) mmol/L Carbon Dioxide (22-30) mmol/L Anion Gap mmol/L BUN (7-17) mg/dL Creatinine (0.52-1.04) mg/dL Est GFR (CKD-EPI)AfAm (>60 ml/min/1.73 sqM) Est GFR (CKD-EPI)NonAf (>60 ml/min/1.73 sqM) Glucose (74-99) mg/dL Calcium (8.4-10.2) mg/dL Total Bilirubin (0.2-1.3) mg/dL AST (14-36) U/L ALT (4-34) U/L Alkaline Phosphatase (38-126) U/L Creatine Kinase (30-135) U/L Troponin I <0.012 (0.000-0.034) ng/mL Total Protein (6.3-8.2) g/dL Albumin (3.5-5.0) g/dL Disposition Clinical Impression: CVA (cerebral vascular accident) Disposition: ADMITTED IP TO THIS HOSP Condition: Fair Referrals: Nohemi Estrada MD [Primary Care Provider] - 1-2 days Decision Time: 19:51
[2024-06-21 17:00] LABS: Basophils # (A) 0.1 k/uL (0-0.2); Basophils % (A) 1 %; Eosinophils # (A) 0.2 k/uL (0-0.7); Eosinophils % (A) 2 %; HCT 41.4 % (34.0-46.0); HGB 13.3 gm/dL (11.4-16.0); Lymphocytes # (A) 2.3 k/uL (1.0-4.8); Lymphocytes % (A) 23 %; MCH 29.3 pg (25.0-35.0); MCHC 32.2 g/dL (31.0-37.0); Mean Platelet Volume 8.5; Monocytes # (A) 0.6 k/uL (0-1.0); Monocytes % (A) 6 %; Neutrophils % (A) 68 %; Platelet Count 197 k/uL (150-450); RBC 4.55 m/uL (3.80-5.40); WBC 10.3 k/uL (3.8-10.6)
[2024-06-21 17:04] LABS: INR 1.2 (<1.2); Partial Thromboplastin Time 22.3 sec (22.0-30.0)
[2024-06-21 17:09] LABS: ALT 20 U/L (4-34); AST 28 U/L (14-36); African American GFR (CKD) 84 (>60 ml/min/1.73 sqM); Alkaline Phosphatase 86 U/L (38-126); Anion Gap 11 mmol/L; Blood Urea Nitrogen 32 mg/dL (7-17); Calcium 9.7 mg/dL (8.4-10.2); Carbon Dioxide 26 mmol/L (22-30); Chloride 101 mmol/L (98-107); Creatine Kinase 37 U/L (30-135); Glucose 118 mg/dL (74-99); Non-African American GFR(CKD) 73 (>60 ml/min/1.73 sqM); Potassium 4.2 mmol/L (3.5-5.1); Sodium 138 mmol/L (137-145); Total Bilirubin 0.8 mg/dL (0.2-1.3); Total Protein 6.4 g/dL (6.3-8.2)
--- NOTE | 2024-06-21 17:44 | XR ---
EXAMINATION TYPE: XR chest 2V DATE OF EXAM: 06/21/2024 5:08 PM COMPARISON: None. CLINICAL INDICATION: Female, 83 years old with history of altered mental status, TECHNIQUE: XR chest 2V view(s) obtained. FINDINGS: The heart size is normal. The pulmonary vasculature is normal. Some scattered infiltrates are through the right lung appears improved from comparison.. IMPRESSION: 1. May be some residual infiltrates from prior examination within the right perihilar region. Infecti on and masses should be considered. [facility], Workstation: [id number], 06/21/2024 5:42 PM
[2024-06-21] MEDS: HYDROmorphone 1 MG/ML 1 ML SYRINGE IVP STA (18:10)
--- NOTE | 2024-06-21 18:48 | CT ---
EXAMINATION TYPE: CT brain wo con DATE OF EXAM: 06/21/2024 6:31 PM COMPARISON: PET/CT 06/16/2024 CLINICAL INDICATION: Female, 83 years old with history of Neuro deficit, acute, stroke suspected, AMS , weakness, difficulty moving lower extremities. TECHNIQUE: CT of the brain is performed utilizing 3 mm thick sections through the posterior fossa and 3 mm thick sections through the remaining calvarium. Study is performed within 24 hours of arrival to the hospital. Contrast used: mL of , (none if empty) CT DLP: 1188.6 mGycm, Automated exposure control for dose reduction was used. FINDINGS: No abnormal hyperdensity is present to suggest an acute intracranial hemorrhage. No mass lesion is evident. No acute infarcts are evident. There is patchy to confluent periventricular white matter hypodensity, likely on the basis of chronic white matter ischemic changes. Ventricles and sulci are mildly prominent for the patient age. Paranasal sinuses and mastoid air cells within the [id number] are clear. IMPRESSION: 1. No acute intracranial process. Follow up MRI can be performed as clinically indicated. 2. Chronic appearing periventricular white matter ischemic changes. No suspicious metastases. [facility], Workstation: [facility], 06/21/2024 6:45 PM
--- NOTE | 2024-06-21 18:54 | CT ---
EXAMINATION TYPE: CT angio head neck DATE OF EXAM: 06/21/2024 6:42 PM COMPARISON: None. CLINICAL INDICATION: Female, 83 years old with history of Neuro deficit, acute, stroke suspected, AMS , weakness, difficulty moving lower extremities. TECHNIQUE: CTA scan is performed with axial images are obtained, coronal and sagittal reformatted shawna ges are reviewed. 3-D reconstructed images are created on an independent workstation and reviewed. [facility] [place] are reviewed. NASCET criteria was used in interpretation of this exam? Contrast used:65ml mL of Isovue 370 with IV Contrast, (none if empty) Oral contrast used: (none if empty) CT DLP: 378.2 mGycm, Automated exposure control for dose reduction was used. FINDINGS: Carotid/Vascular Structures: There is a 3 vessel arch. Common carotid arteries bifurcate into internal and external carotid arteries without significant katie w limiting stenosis. Mild narrowing of 27% is at the left internal carotid artery origin. 45% narrowi ng is present at the right internal carotid artery which remains within the mild range. Vertebral arteries are codominant. Internal carotid arteries and vertebral arteries are patent to the skull base. Cervical of [place]: Vertebral basilar system appears normal. Posterior cerebral vasculature is unrema rkable. Left internal carotid artery bifurcates normally into A1 and M1 segments. A2 segments are nor mal. Right A1 segment is not visualized. The anterior communicating artery is patent. The right posterior communicating artery is may be faintly visualized. The left posterior communicating artery is absent. Other: Emphysematous changes are within the lung eason bilaterally. IMPRESSION: 1. No flow-limiting stenosis bilateral carotid bifurcations. 2. Normal variation [place]. 3. Emphysema [facility], Workstation: [facility], 06/21/2024 6:51 PM
[2024-06-21] MEDS ORDERED: NALOXONE 0.4 MG/ML 1 ML VIAL IV PRN (19:47)
[2024-06-21] MEDS: ASPIRIN 81 MG PO STA (21:02)
[2024-06-21] MEDS: MORPHINE SULFATE 4 MG/ML SYRINGE IV STA (21:03)
[2024-06-21] MEDS: SODIUM CHLORIDE 0.9% 1,000 ML IV SCH (21:04)
[2024-06-22] MEDS: ALPRAZolam 0.25 MG TAB PO PRN (09:42)
[2024-06-22] MEDS ORDERED: ALBUTEROL NEBULIZED 2.5 MG/3 ML INHALATION PRN (09:44)
[2024-06-22] MEDS ORDERED: ALPRAZolam 0.25 MG TAB PO PRN (09:44)
[2024-06-22] MEDS ORDERED: DEXTROSE 50% SYRINGE 50 ML IVP PRN ×2 (09:45)
[2024-06-22] MEDS: DULoxetine HCL 60 MG CAPSULE.DR PO SCH (10:48)
[2024-06-22] MEDS: METOPROLOL SUCCINATE (ER) 100 MG TAB.ER.24H PO SCH (10:48)
[2024-06-22] MEDS: DAPAGLIFLOZIN PROPANEDIOL 5 MG TABLET PO SCH (10:48)
[2024-06-22 10:56] LABS: Glucose,Whole Blood 165 mg/dL (70-110)
[2024-06-22] MEDS: INSULIN ASPART (NovoLOG) 100 UNIT/ML VIAL SQ SCH (13:38)
--- NOTE | 2024-06-22 16:31 | P.HPIM ---
History of Present Illness H&P Date: 06/22/24 Chief Complaint: CVA/TIA Patient is a 83-year-old female with history of diabetes mellitus, GERD, hyperlipidemia, hypertension, paroxysmal atrial fibrillation on Eliquis 5 mg twice daily, permanent pacemaker brought in by her daughter and son-in-law with a chief complaint of confusion that started yesterday afternoon. Patient was having confusion with word finding difficulties. Patient does use home oxygen of 2 L nasal cannula. Patient was seen at bedside. She stated that she underwent tilt table testing outpatient on Thursday. She took some Xanax yesterday around noon time and afterwards patient started becoming confused. Patient's daughter was at bedside. She stated that patient was having difficulties finding words and was becoming less alert compared to her normal baseline. As a result, they brought the patient over to the ED for evaluation. Patient currently denies any weakness in upper or lower extremity. No fever, chills, chest pain, shortness of breath, nausea or vomiting, belly pain, slurred speech, lower extremity swelling. Patient has a history of multiple TIAs in the past. ED documentation reviewed. In the ED patient was treated with Dilaudid 1 mg IV x 1, aspirin 324 mg p.o. x 1, morphine 4 mg IV x 1 Vitals on admission temperature 97.9, pulse rate 75, respiratory to 20, blood pressure 135/76, O2 sat 100% on nasal cannula at 2 L/min EKG independently interpreted as electronic atrial pacemaker with ventricular rate of 68 bpm, minimal ST depression, QTc interval 419 ms CXR shows may be some residual infiltrates from prior examination within the right perihilar region. Infection and masses should be considered. CT of brain shows no acute intracranial process. Follow-up MRI can be performed as clinically indicated. Chronic appearing periventricular white matter ischemic changes. No suspicious metastasis. CT angio of head and neck showed no flow-limiting stenosis bilateral carotid bifurcations. Normal variation [place]. Emphysema. Labs on admission show WBC 10.3, hemoglobin 13.3, hematocrit 41.4, platelets 197, PT 13, INR 1.2, PTT 22.3, sodium 138, potassium 4.2, chloride 101, carbon dioxide 26, BUN 32, creatinine 0.76, glucose 118, troponin less than 0.012 Review of systems: Pertinent positives and negatives as discussed in HPI, a complete review of systems was performed and all other systems are negative. PMH: diabetes mellitus, GERD, hyperlipidemia, hypertension, paroxysmal atrial fibrillation on Eliquis 5 mg twice daily PSH: Cholecystectomy, heart cath with stent, orthopedic surgery FMH: Father has a history of congestive heart failure and COPD Allergies: No known drug allergies Social history: Tobacco: Former smoker, started smoking at age 14, quit 2017 Alcohol: Occasional alcohol use Recreational drugs: No drug use Travel: No travel history Physical examination: Vital signs reviewed General: nontoxic, no distress, appears at stated age Derm: warm, dry, intact Head: atraumatic, normocephalic, symmetric Eyes: EOMI, anicteric sclera Mouth: no lip lesion, mucus membranes moist Cardiovascular: S1 S2 reg, no murmur Lungs: CTA bilateral, no rhonchi, no rales, no accessory muscle use Abdominal: soft, non-tender to palpation Extremities: No cyanosis, clubbing, or pedal edema. Neuro: Alert, Oriented, Gross neurological examination did not reveal any focal deficits. Cranial nerves II to XII grossly intact. Bilateral upper and lower extremity muscle strength and sensation intact. Intact [id number] testing. Psych: well appearing, appropriate affect Assessment/Plan: Patient is a 83-year-old female with history of diabetes mellitus, GERD, hyperlipidemia, hypertension, paroxysmal atrial fibrillation on Eliquis 5 mg twice daily, permanent pacemaker brought in by her daughter and son-in-law with a chief complaint of confusion that started yesterday afternoon. Patient will be admitted to internal medicine service. Active: #. Altered mental status, likely secondary to use of Xanax #. Rule out TIA/CVA #. Weakness and debility Consult neurology Continue atorvastatin 80 mg at bedtime Continue cardiac monitoring CT of brain shows no acute intracranial process CT angio of head and neck showed no flow-limiting stenosis bilateral carotid bi furcations. Normal variation [place]. Emphysema. Fall precautions Discontinue Xanax Monitor morning CBC and CMP Consult PT and OT Unable to obtain MRI as patient has permanent pacemaker Order EEG Chronic: #. Diabetes mellitus Continue sliding scale insulin #. GERD Continue Protonix 40 mg #. Hyperlipidemia Restart Lipitor 80 mg at bedtime #. Hypertension Continue metoprolol succinate 100 mg twice daily #. Paroxysmal atrial fibrillation Restart apixaban 2.5 mg twice daily F: No restrictions E: Replete as needed N: Heart healthy diet DVT prophylaxis: Lovenox 40 mg subcu daily The patient is admitted with an anticipated less than 2 midnight stay for evaluation of confusion/altered mental status CODE STATUS: Full code Discussed with: Patient Anticipated discharge place: Home Past Medical History Past Medical History: Atrial Fibrillation, Cancer, Heart Failure, COPD, CVA/TIA, Diabetes Mellitus, Deep Vein Thrombosis (DVT), Fibromyalgia, GERD/Reflux, Hyperlipidemia, Hypertension, Osteoarthritis (OA), Pneumonia, Sleep Apnea/CPAP/BIPAP, Vascular Disorder Additional Past Medical History / Comment(s): back pain , lung cancer-radiation opnly, HOME 02 2 LITERS N/C, BLOOD CLOT AFTER SX, CVA LT SIDE AFFECTED SINCE RESOLVED, HIATAL HERNIA. SHINGLES 30 YEARS AGO, DOES'NT USE CPAP MACHINE.in past for short period of time took oral meds for dm-then taken off meds-pt stated not considered diabetic now but occ will check bs., macular degeneration.past broken rt leg and lt wrist. Raynauds. Pt currently has 3 fractured ribs on the right that she has "had for years and will not heal". History of Any Multi-Drug Resistant Organisms: MRSA Date of last positivie culture/infection: 09/25/16 MDRO Source:: BRONCH WASH Past Surgical History: Cholecystectomy, Heart Catheterization With Stent, Orthopedic Surgery Additional Past Surgical History / Comment(s): rt leg repaired after break-has pins, lt wrist-plate and screws. lung bx, stents tung groins. Past Anesthesia/Blood Transfusion Reactions: Family History of Problems w/ Anesthesia Additional Past Anesthesia/Blood Transfusion Reaction / Comment(s): daughter has diff waking after aa Date of Last Stent Placement:: unk Type of Cardiac Device: Permanent Pacemaker Device Placement Date:: 09/25/20 Past Psychological History: No Psychological Hx Reported Smoking Status: Former smoker - Past Family History Father Family Medical History: Congestive Heart Failure (CHF), COPD Additional Family Medical History / Comment(s): emphysema Mother Family Medical History: Cancer Medications and Allergies Home Medications Medication Instructions Recorded Confirmed Type Fluticasone/Umeclidin/Vilanter 1 puff INHALATION RT-DAILY 04/19/20 06/21/24 History [Trelegy Ellipta 100-62.5-25] Albuterol Sulfate [Albuterol 2 puff INHALATION RT-Q4H PRN 12/01/22 06/21/24 History Sulfate Hfa] Pantoprazole Sodium [Protonix] 20 mg PO DAILY 12/01/22 06/21/24 History Metoprolol Succinate (ER) [Toprol 100 mg PO BID 06/27/23 06/21/24 History XL] Apixaban [Eliquis] 5 mg PO BID 04/07/24 06/21/24 History DULoxetine HCL [Cymbalta] 60 mg PO BID 04/07/24 06/21/24 History Empagliflozin [Jardiance] 10 mg PO DAILY 04/07/24 06/21/24 History Mirtazapine [Remeron] 15 mg PO HS 04/07/24 06/21/24 History metFORMIN HCL ER [Glucophage XR] 500 mg PO W/SUPPER PRN 04/07/24 06/21/24 History traMADol HCL 50 mg PO Q6H PRN #4 tab 04/13/24 06/21/24 Rx ALPRAZolam [Xanax] 0.25 mg PO DAILY PRN 06/21/24 06/21/24 History ALPRAZolam [Xanax] 0.5 mg PO HS 06/21/24 06/21/24 History Atorvastatin [Lipitor] 80 mg PO HS 06/21/24 06/21/24 History predniSONE 5 mg PO DAILY 06/21/24 06/21/24 History Allergies Allergy/AdvReac Type Severity Reaction Status Date / Time No Known Allergies Allergy Verified 06/21/24 17:55 Physical Exam Vitals: Vital Signs Temp Pulse Resp BP Pulse Ox 06/22/24 07:43 97.9 F 75 20 135/76 100 06/22/24 04:08 97.5 F L 56 L 14 131/65 96 06/22/24 02:00 98.0 F 68 19 137/65 96 06/22/24 00:29 97.9 F 59 L 20 150/80 97 06/22/24 00:27 97.9 F 06/21/24 22:00 59 L 18 162/64 98 06/21/24 21:00 59 L 18 163/61 97 06/21/24 20:00 60 20 158/59 97 06/21/24 18:42 67 20 190/80 97 06/21/24 16:30 64 18 145/73 98 06/21/24 15:31 98.2 F 75 18 164/86 98 Intake and Output 06/21/24 06/22/24 06/22/24 22:59 06:59 14:59 Other: Weight 54.431 kg Results CBC & Chem 7: 06/21/24 16:43 06/21/24 16:43 Labs: Abnormal Lab Results - Last 24 Hours (Table) 06/21/24 06/21/24 Range/Units 16:43 16:43 PT 13.0 H (10.0-12.5) sec INR 1.2 H (<1.2) BUN 32 H (7-17) mg/dL Glucose 118 H (74-99) mg/dL
--- NOTE | 2024-06-22 16:37 | P.CNNES ---
History of Present Illness Consult date: 06/22/24 Requesting physician: Joseph Sifuentes Reason for Consult: cva History of Present Illness: This is an 83-year-old woman who presented emergency department because of confusion. History is obtained from medical records since patient is unable to tell me the history. Per the ED team's note it seems that patient was last normal at 1 PM yesterday and around 230 the patient was on the phone with her son in law when she sounded confused. Her son log called the patient's daughter which she called EMS. Per the ED note it seems that the daughter felt the patient sounded confused and had word finding difficulties. Patient denies any focal weakness. She denies any history of seizure. The patient had a history of TIA and she states that she has poor vision because of her macular degeneration.. Seems the patient has underlying history of atrial fibrillation and she is on Eliquis. Per the medical records she has a history of CVA/TIA. Has diabetes mellitus, DVT, hypertension and hyperlipidemia and vascular disor pierce. Spoke with the Hospitalist and he feels her neurological issues seems more due to her Xanax and tramadol. Some of the workup during this hospital visit consisted of: I reviewed the lab workup. Seems in the ED patient had NIH stroke scale of 4 for word finding difficulty along with unilateral lower extremity drift. She is outside the window for thrombolytic per the ED team the risk outweigh the benefit. CT of the head is reported as no acute intracranial process. I personally reviewed the CT and agree with report CT angiography of the head and neck is reported as no flow-limiting stenosis bilateral carotid bifurcation. Normal variation [place]. Emphysema Review of Systems Limited but as per HPI. Past Medical History Past Medical History: Atrial Fibrillation, Cancer, Heart Failure, COPD, CVA/TIA, Diabetes Mellitus, Deep Vein Thrombosis (DVT), Fibromyalgia, GERD/Reflux, Hyperlipidemia, Hypertension, Osteoarthritis (OA), Pneumonia, Sleep Apnea/CPAP/BIPAP, Vascular Disorder Additional Past Medical History / Comment(s): back pain , lung cancer-radiation opnly, HOME 02 2 LITERS [place], BLOOD CLOT AFTER SX, CVA LT SIDE AFFECTED SINCE RESOLVED, HIATAL HERNIA. SHINGLES 30 YEARS AGO, DOES'NT USE CPAP MACHINE.in past for short period of time took oral meds for dm-then taken off meds-pt stated not considered diabetic now but occ will check bs., macular degeneration.past broken rt leg and lt wrist. Raynauds. Pt currently has 3 fractured ribs on the right that she has "had for years and will not heal". History of Any Multi-Drug Resistant Organisms: MRSA Date of last positivie culture/infection: 09/25/16 MDRO Source:: BRONCH WASH Past Surgical History: Cholecystectomy, Heart Catheterization With Stent, Orthopedic Surgery Additional Past Surgical History / Comment(s): rt leg repaired after break-has pins, lt wrist-plate and screws. lung bx, stents tung groins. Past Anesthesia/Blood Transfusion Reactions: Family History of Problems w/ Anesthesia Additional Past Anesthesia/Blood Transfusion Reaction / Comment(s): daughter has diff waking after aa Date of Last Stent Placement:: unk Type of Cardiac Device: Permanent Pacemaker Device Placement Date:: 09/25/20 Past Psychological History: No Psychological Hx Reported Smoking Status: Former smoker - Past Family History Father Family Medical History: Congestive Heart Failure (CHF), COPD Additional Family Medical History / Comment(s): emphysema Mother Family Medical History: Cancer Medications and Allergies Home Medications Medication Instructions Recorded Confirmed Type Fluticasone/Umeclidin/Vilanter 1 puff INHALATION RT-DAILY 04/19/20 06/21/24 History [Trelelionel Ellipta 100-62.5-25] Albuterol Sulfate [Albuterol 2 puff INHALATION RT-Q4H PRN 12/01/22 06/21/24 History Sulfate Hfa] Pantoprazole Sodium [Protonix] 20 mg PO DAILY 12/01/22 06/21/24 History Metoprolol Succinate (ER) [Toprol 100 mg PO BID 06/27/23 06/21/24 History XL] Apixaban [Eliquis] 5 mg PO BID 04/07/24 06/21/24 History DULoxetine HCL [Cymbalta] 60 mg PO BID 04/07/24 06/21/24 History Empagliflozin [Jardiance] 10 mg PO DAILY 04/07/24 06/21/24 History Mirtazapine [Remeron] 15 mg PO HS 04/07/24 06/21/24 History metFORMIN HCL ER [Glucophage XR] 500 mg PO W/SUPPER PRN 04/07/24 06/21/24 History traMADol HCL 50 mg PO Q6H PRN #4 tab 04/13/24 06/21/24 Rx ALPRAZolam [Xanax] 0.25 mg PO DAILY PRN 06/21/24 06/21/24 History ALPRAZolam [Xanax] 0.5 mg PO HS 06/21/24 06/21/24 History Atorvastatin [Lipitor] 80 mg PO HS 06/21/24 06/21/24 History predniSONE 5 mg PO DAILY 06/21/24 06/21/24 History Allergies Allergy/AdvReac Type Severity Reaction Status Date / Time No Known Allergies Allergy Verified 06/21/24 17:55 Physical Examination - Vital Signs Vital Signs: Vital Signs Temp Pulse Resp BP BP BP Pulse Ox 06/22/24 15:22 97.4 F L 81 20 197/99 155/126 197/99 97 06/22/24 15:00 86 16 220/86 95 06/22/24 14:52 85 116 H 220/86 95 06/22/24 10:49 96 16 135/76 06/22/24 07:43 97.9 F 75 20 135/76 100 06/22/24 04:08 97.5 F L 56 L 14 131/65 96 06/22/24 02:00 98.0 F 68 19 137/65 96 06/22/24 00:29 97.9 F 59 L 20 150/80 97 06/22/24 00:27 97.9 F 06/21/24 22:00 59 L 18 162/64 98 06/21/24 21:00 59 L 18 163/61 97 06/21/24 20:00 60 20 158/59 97 06/21/24 18:42 67 20 190/80 97 06/21/24 16:30 64 18 145/73 98 General: Lying in bed and is not in acute distress. Neuro: The patient is awake alert oriented to self place and time. Is following simple commands. Patient has underlying macular degeneration so with the visual examination was somewhat limited but it appears normal to confrontation but it took her a long time and she had to move her head to see a clear object and she stated that is chronic No facial weakness. No dysarthria. Motor the strength is limited in assessing individual muscle strength but she is left in all extremities above gravity. Results - Laboratory Findings CBC and BMP: 06/21/24 16:43 06/21/24 16:43 Abnormal Lab Findings: Abnormal Labs 06/21/24 06/21/24 06/22/24 16:43 16:43 10:47 PT 13.0 H INR 1.2 H BUN 32 H Glucose 118 H POC Glucose (mg/dL) 165 H Assessment and Plan Assessment: This is an 83-year-old woman who presented emergency department on 06/21/2024 for confusion and the daughter felt that she was having word finding difficulty. She had has underlying history of atrial fibrillation and she is on Eliquis Episode of confusion with word finding difficulty: Possible TIA History of atrial fibrillation on Eliquis Presyncope status post pacemaker. It seems the patient has positive orthostatic on 06/20/2024 History of TIA History of DVT History of diabetes mellitus History of fibromyalgia Hypertension Hyperlipidemia History of sleep apnea on BiPAP Chronic back pain history of lung cancer post radiation Plan: I ordered MRI of the brain but it seems to the patient cannot obtain the MRI since has a pacemaker therefore we will get a repeat CT of the head by tomorrow morning Patient was given aspirin 324 mg once in the ED. She was resumed on Eliquis 2.5 mg twice daily. Consider either going up on Eliquis or recommend starting aspirin 81 mg daily. She is on Lipitor 80 mg nightly Ordered routine EEG, ammonia level and TSH. Patient had a recent vitamin B12 towards the end of 2023 which was normal. Ordered the echo Continue neurochecks Cardiac monitoring PT OT are consulted. I also consulted [employer] Will defer the rest of the medical management to primary and other specialist. For DVT prophylaxis the patient is on Eliquis. The plan discussed with the primary team Thank you for the consultation Time with Patient: Greater than 30
[2024-06-22 17:47] LABS: Glucose,Whole Blood 131 mg/dL (70-110)
[2024-06-22] MEDS: PANTOPRAZOLE 40 MG TABLET PO SCH (18:23)
[2024-06-22] MEDS: SYMBICORT 160-4.5 MCG INHALER INHALATION SCH (20:04)
[2024-06-22] MEDS ORDERED: ALPRAZolam 0.5 MG TAB PO SCH (21:00)
[2024-06-22 21:07] LABS: Glucose,Whole Blood 257 mg/dL (70-110)
[2024-06-22] MEDS: APIXABAN 2.5 MG TABLET PO SCH (21:18)
[2024-06-22] MEDS: ATORVASTATIN 80 MG TAB PO SCH (21:18)
[2024-06-22] MEDS: MIRTAZAPINE 15 MG TAB PO SCH (21:18)
[2024-06-22] MEDS: traMADol 50 MG TAB PO PRN (22:35)
--- NOTE | 2024-06-23 04:31 | EEG ---
ELECTROENCEPHALOGRAM REPORT CLINICAL HISTORY: This is an 83-year-old woman with altered mental status. The video EEG is obtained to evaluate for seizure epileptiform activity. RELEVANT MEDICATION: Xanax. EEG TYPE: This is a routine 21-channel EEG with video using the 10/20 electrode placement system. DESCRIPTION: This study is very limited because of her refusal to cooperate for the study and only 4 minutes was obtained, but during the study, wakefulness is only obtained and the background consists of 8.5 hertz activity. There was no physiological stage 2 sleep architecture from limitation. There is no focal slowing from limitation. There is mild diffuse myogenic artifact. Interictal and ictal is, from limitation, there are no seizure or discharges. Activation procedure was not done. CLINICAL INTERPRETATION: This is a very limited study and only 4 minutes was recorded and she refused to comply for the rest. With the limitation, the background is normal. There is no focal slowing, epileptiform discharge, or seizure on the EEG. Clinical correlation is recommended. MMLUIS / GAYLAN: [id number] /
[2024-06-23 05:55] LABS: Glucose,Whole Blood 89 mg/dL (70-110)
[2024-06-23 07:19] LABS: Basophils % (A) 1 %; Eosinophils # (A) 0.2 k/uL (0-0.7); Eosinophils % (A) 3 %; HCT 38.3 % (34.0-46.0); HGB 12.3 gm/dL (11.4-16.0); Lymphocytes % (A) 31 %; MCH 29.4 pg (25.0-35.0); MCV 91.7 fL (80.0-100.0); Mean Platelet Volume 8.8; Monocytes # (A) 0.4 k/uL (0-1.0); Monocytes % (A) 6 %; Neutrophils # (A) 3.7 k/uL (1.3-7.7); Neutrophils % (A) 57 %; Platelet Count 184 k/uL (150-450); RBC 4.18 m/uL (3.80-5.40); RDW 14.1 % (11.5-15.5); WBC 6.5 k/uL (3.8-10.6)
[2024-06-23 07:43] LABS: ALT 21 U/L (4-34); AST 35 U/L (14-36); Albumin 3.7 g/dL (3.5-5.0); Alkaline Phosphatase 89 U/L (38-126); Anion Gap 6 mmol/L; Blood Urea Nitrogen 20 mg/dL (7-17); Calcium 9.3 mg/dL (8.4-10.2); Carbon Dioxide 32 mmol/L (22-30); Chloride 99 mmol/L (98-107); Glucose 85 mg/dL (74-99); Sodium 137 mmol/L (137-145); Total Protein 5.9 g/dL (6.3-8.2)
[2024-06-23] MEDS: TIOTROPIUM 2.5 MCG INHALER INHALATION SCH (07:48)
[2024-06-23 08:01] LABS: African American GFR (CKD) 84 (>60 ml/min/1.73 sqM); Non-African American GFR(CKD) 73 (>60 ml/min/1.73 sqM)
--- NOTE | 2024-06-23 10:24 | CT ---
EXAMINATION TYPE: CT brain wo con DATE OF EXAM: 06/23/2024 10:07 AM COMPARISON: 06/21/2024 CLINICAL INDICATION: Female, 83 years old with history of stroke, aphasia, STROKE, APHASIA, TECHNIQUE: Examination was done in axial plane without intravenous contrast. Coronal and sagittal r econstructions performed. CT DLP: 1151.4 mGycm, Automated exposure control for dose reduction was used. FINDINGS: There is no evidence of acute intracranial hemorrhage, acute ischemic changes, mass, mass-effect, or extra-axial fluid collection. There is no effacement of cerebral sulci or basal subarachnoid cister ns. There is no hydrocephalus. There is no midline shift. Diaz-white matter distinction is preserv ed. Mild volume loss overlying the bilateral cerebral convexities moderate hypodensities throughout the b ilateral cerebral hemispheres. Old lacunar infarct right lateral basal ganglia. Partially empty sella . Mild mucosal thickening anterior right ethmoid air cells. Rightward nasal septal deviation. Globes ar e intact. Mastoid air cells are well pneumatized. IMPRESSION: 1. No evolving large vascular territory infarct is identified. No acute intracranial hemorrhage or mi dline shift. 2. Mild cerebral atrophy and moderate burden of chronic small vessel ischemic disease. If concern for subtle acute ischemia, follow-up MRI. [facility], , 06/23/2024 10:21 AM
--- NOTE | 2024-06-23 11:43 | CA ---
Transthoracic Echo Report Name: Jenni Hercules Age: 83 Gender: F : 1940 Exam Date: 06/23/2024 07:50 Exam Location: [facility] Ht (in): 64 Wt (lb): 120 Ordering Physician: Drew Pino MD Attending/Referring Phys: [employer] Operator Kat Brunner RDCS Procedure CPT: Indications: stroke Cardiac Hx: Pacemaker Technical Quality: Fair Contrast 1: Total Dose (mL): Contrast 2: Total Dose (mL): MEASUREMENTS (Male / Female) Normal Values 2D ECHO LV Diastolic Diameter PLAX 3.0 cm 4.2 - 5.9 / 3.9 - 5.3 cm LV Systolic Diameter PLAX 1.4 cm IVS Diastolic Thickness 1.1 cm 0.6 - 1.0 / 0.6 - 0.9 cm LVPW Diastolic Thickness 0.8 cm 0.6 - 1.0 / 0.6 - 0.9 cm LV Relative Wall Thickness 0.6 RV Internal Dim ED PLAX 2.3 cm LV Diastolic Volume MOD 4C 24.2 cm??? LV Systolic Volume MOD 4C 8.2 cm??? LV Ejection Fraction MOD 4C 65.9 % LV Cardiac Index MOD 4C 763.7 cm???/min???m??? LV Diastolic Length 4C 5.7 cm LV Systolic Length 4C 4.4 cm M-MODE Aortic Root Diameter MM 3.2 cm LA Systolic Diameter MM 3.7 cm LA Ao Ratio MM 1.2 AV Cusp Separation MM 1.4 cm FINDINGS Left Ventricle Left ventricular ejection fraction is estimated at 55-60 %. Mildly increased septal wall thickness. Normal left ventricular systolic function with no obvious regional wall motion abnormalities. Right Ventricle Mild right ventricular dilatation. Right Atrium Normal right atrial size. Catheter/pacemaker wire in the right atrial cavity. Left Atrium Mild left atrial dilatation. Mitral Valve Structurally normal mitral valve. Aortic Valve Trileaflet aortic valve. No aortic stenosis. Tricuspid Valve Structurally normal tricuspid valve. Pulmonic Valve Structurally normal pulmonic valve. Pericardium No pericardial or pleural effusion. Aorta Normal size aortic root and proximal ascending aorta. CONCLUSIONS Indication: CVA LVEF 55% No obvious regional wall motion abnormality PPM wire noticed in RA and RV. Mild mitral valve leaflet thickening with no major dysfunction No significant valvular dysfunction echo Mild LA dilatation Previewed by: Dr Brent Cottrell (Electronically Signed) Final Date: 23 June 2024 11:42
[2024-06-23 12:09] LABS: Glucose,Whole Blood 130 mg/dL (70-110)
--- NOTE | 2024-06-23 12:57 | CDI ---
Documentation Clarification Form Date: 06/23/2024 12:37:26 PM From: Krys Renteria RN CCDS Phone: [phone] Admit Date: 06/21/2024 07:48:00 PM Patient Name: Jenni Hercules Visit Number: [id number] Discharge Date: ATTENTION: The Clinical Documentation Specialists (CDI) and [facility] Coding Staff appreciate your assistance in clarifying documentation. Please respond to the clarification below the line at the bottom and electronically sign. The CDI & [facility] Coding staff will review the response and follow-up if needed. Please note: Queries are made part of the Legal Health Record. If you have any questions, please contact the author of this message via ITS. Doctor: Stacy Veliz Your patient has the documented symptom of Altered Mental Status likely secondary to use of Xanax. 06/22, HP. Additional clarification regarding the etiology/cause of this symptom is requested. History/Risk Factors: 83 year old female presents to the ED for confusion and confusion with word finding difficulties that started yesterday afternoon. Medical History: Multiple TIAs, Tobacco former smoker started smoking at age 14, quit 2017, GERD, DM, HTN and Paroxysmal atrial fibrillation. 06/22, HP Clinical Indicators: VSS: 06/21 B/P 164/86 HR 75 Temp 98.2F RR 18 sPo2 98% 2l NC X Ray: 06/21: Maybe some residual infiltrates from prior examination within the right perhilar region. CT Brain, 06/21: No acute intracranial process. Chronic appearing periventricular white matter ischemic changes. CT Angio head and neck 06/21; No flow limiting stenosis bilateral carotid bifurcations. Normal variation [place]. Emphysema. CT Brain, 06/23: No evolving large vascular territory infarct is identified. No acute intracranial hemorrhage or midline shift. Mild cerebral atrophy and moderate burden of chronic small vessel ischemic disease. Home Medications: Xanax 0.5mg PO HS, Xanax 0.25mg po Daily PRN Treatment: 06/22 Xanax 0.25mg PO Daily PRN Anxiety administered x 1 discontinued 06/22 Please clarify the etiology of the symptom of Altered Mental Status: [ x ] Toxic Metabolic Encephalopathy due to Xanax [ ] Other condition (please specify) [ ] Unable to determine (Template Last Revised: June 2020) MTDD
[2024-06-23] MEDS: LACTULOSE 20 GM/30 ML CUP PO SCH (13:13)
--- NOTE | 2024-06-23 14:36 | P.PN ---
Subjective Progress Note Date: 06/23/24 Principal diagnosis: Altered mental status, confusion Per Medical H&P, "Patient is a 83-year-old female with history of diabetes mellitus, GERD, hyperlipidemia, hypertension, paroxysmal atrial fibrillation on Eliquis 5 mg twice daily, permanent pacemaker brought in by her daughter and son-in-law with a chief complaint of confusion that started yesterday afternoon. Patient was having confusion with word finding difficulties. Patient does use home oxygen of 2 L nasal cannula. Patient was seen at bedside. She stated that she underwent tilt table testing outpatient on Thursday. She took some Xanax yesterday around noon time and afterwards patient started becoming confused. Patient's daughter was at bedside. She stated that patient was having difficulties finding words and was becoming less alert compared to her normal baseline. As a result, they brought the patient over to the ED for evaluation. Patient currently denies any weakness in upper or lower extremity. No fever, chills, chest pain, shortness of breath, nausea or vomiting, belly pain, slurred speech, lower extremity swelling. Patient has a history of multiple TIAs in the past. ED documentation reviewed. In the ED patient was treated with Dilaudid 1 mg IV x 1, aspirin 324 mg p.o. x 1, morphine 4 mg IV x 1 Vitals on admission temperature 97.9, pulse rate 75, respiratory to 20, blood pressure 135/76, O2 sat 100% on nasal cannula at 2 L/min EKG independently interpreted as electronic atrial pacemaker with ventricular rate of 68 bpm, minimal ST depression, QTc interval 419 ms CXR shows may be some residual infiltrates from prior examination within the right perihilar region. Infection and masses should be considered. CT of brain shows no acute intracranial process. Follow-up MRI can be performed as clinically indicated. Chronic appearing periventricular white matter ischemic changes. No suspicious metastasis. CT angio of head and neck showed no flow-limiting stenosis bilateral carotid bifurcations. Normal variation [place]. Emphysema. Labs on admission show WBC 10.3, hemoglobin 13.3, hematocrit 41.4, platelets 197, PT 13, INR 1.2, PTT 22.3, sodium 138, potassium 4.2, chloride 101, carbon dioxide 26, BUN 32, creatinine 0.76, glucose 118, troponin less than 0.012 " Progress note 06/23/2024: Patient was seen at bedside. Still reports general weakness. Patient's family reports patient is still having some word finding difficulties however improved since yesterday. Family reports patient started becoming confused after tilt table testing on Thursday. Patient underwent EEG yesterday which showed limited study. No focal slowing, epileptiform discharges, or seizures on EEG. Patient is scheduled for a brain CT and echocardiogram today. Review of Systems Constitutional: Denies chills, Denies fever Eyes: denies blurred vision, double vision or pain Ears, nose, mouth and throat: Denies headache, Denies sore throat Cardiovascular: Denies chest pain, Denies shortness of breath Respiratory: Denies cough Gastrointestinal: Denies abdominal pain, Denies diarrhea, Denies nausea, Denies vomiting Musculoskeletal: Denies myalgias Integumentary: Denies pruritus, Denies rash Neurological: Denies numbness, Denies weakness Psychiatric: Denies anxiety, Denies depression Endocrine: Denies fatigue, Denies weight change Physical exam: General: nontoxic, no distress, appears at stated age Derm: warm, dry, intact Head: atraumatic, normocephalic, symmetric Eyes: EOMI, anicteric sclera Mouth: no lip lesion, mucus membranes moist Cardiovascular: S1 S2 reg, no murmur Lungs: CTA bilateral, no rhonchi, no rales, no accessory muscle use Abdominal: soft, non-tender to palpation Extremities: No cyanosis, clubbing, or pedal edema. Neuro: Alert, Oriented, Gross neurological examination did not reveal any focal deficits. Cranial nerves II to XII grossly intact. Bilateral upper and lower extremity muscle strength and sensation intact. Intact [id number] testing. Psych: well appearing, appropriate affect Assessment/plan: Patient is a 83-year-old female with history of diabetes mellitus, GERD, hyperlipidemia, hypertension, paroxysmal atrial fibrillation on Eliquis 5 mg twice daily, permanent pacemaker brought in by her daughter and son-in-law with a chief complaint of confusion that started yesterday afternoon. Patient will be admitted to internal medicine service. Active: #. Altered mental status, confusion #. Rule out TIA/CVA #. Weakness and debility EEG showed limited study. No focal slowing, epileptiform discharges, or seizures on EEG Patient is scheduled for a repeat brain CT and echocardiogram today Continue atorvastatin 80 mg at bedtime Continue cardiac monitoring Fall precautions Discontinue Xanax Monitor morning CBC and CMP Pending PT/OT/TYPING SECTION CHIEF assessment Chronic: #. Diabetes mellitus Continue sliding scale insulin #. GERD Continue Protonix 40 mg #. Hyperlipidemia Restart Lipitor 80 mg at bedtime #. Hypertension Continue metoprolol succinate 100 mg twice daily #. Paroxysmal atrial fibrillation Restart apixaban 2.5 mg twice daily F: No restrictions E: Replete as needed N: Heart healthy diet DVT prophylaxis: Apixaban 2.5 mg twice daily The patient is admitted with an anticipated less than 2 midnight stay for evaluation of confusion/altered mental status CODE STATUS: Full code Discussed with: Patient Anticipated discharge place: Home Attestation I have seen and examined this patient with my resident , discussed the same with the resident/VERENICE, and agree with the dictator's assessment and plan as written Dr. Kenn holcomb Objective - Vital Signs Vital signs: Vital Signs Temp 98.1 F 06/23/24 08:49 Pulse 57 L 06/23/24 08:49 Resp 18 06/23/24 07:55 BP 135/73 06/23/24 07:55 Pulse Ox 89 L 06/23/24 07:55 FiO2 Intake & Output 06/22/24 06/23/24 06/23/24 18:59 06:59 18:59 Intake Total 240 Balance 240 Weight 54.431 kg Intake: Oral 240 Other: Voiding Method Toilet # Voids 2 - Labs CBC & Chem 7: 06/24/24 06:31 06/24/24 06:31 Labs: Abnormal Lab Results - Last 24 Hours (Table) 06/22/24 06/22/24 06/23/24 Range/Units 17:46 21:05 06:09 Carbon Dioxide (22-30) mmol/L BUN (7-17) mg/dL POC Glucose (mg/dL) 131 H 257 H (70-110) mg/dL Hemoglobin A1c 6.4 H (<=6.0) % Total Protein (6.3-8.2) g/dL 06/23/24 Range/Units 06:09 Carbon Dioxide 32 H (22-30) mmol/L BUN 20 H (7-17) mg/dL POC Glucose (mg/dL) (70-110) mg/dL Hemoglobin A1c (<=6.0) % Total Protein 5.9 L (6.3-8.2) g/dL
[2024-06-23 17:06] LABS: Glucose,Whole Blood 293 mg/dL (70-110)
[2024-06-23 20:14] LABS: Glucose,Whole Blood 133 mg/dL (70-110)
[2024-06-23] MEDS: FUROSEMIDE 10 MG/ML 2 ML VIAL IV ONE (22:44)
--- NOTE | 2024-06-23 22:57 | XR ---
EXAM: XR Chest, 1 View CLINICAL HISTORY: ITS.REASON XR Reason: increased SOB TECHNIQUE: Frontal view of the chest. COMPARISON: Chest x-ray 06/21/2024 FINDINGS: Lungs: Nodular opacities in the lungs in the right perihilar region and periphery of the left midlung are unchanged. Pleural space: No pleural effusion. No pneumothorax. Heart: Unremarkable. No cardiomegaly. Tubes, lines and devices: Pacemaker leads in place. IMPRESSION: Nodular opacities in the lungs in the right perihilar region and periphery of the left midlung are unchanged.
[2024-06-24 06:00] LABS: Glucose,Whole Blood 142 mg/dL (70-110)
[2024-06-24 06:50] LABS: HCT 39.4 % (34.0-46.0); HGB 12.5 gm/dL (11.4-16.0); RBC 4.29 m/uL (3.80-5.40); WBC 7.8 k/uL (3.8-10.6)
[2024-06-24 06:51] LABS: Basophils % (A) 1 %; Eosinophils # (A) 0.3 k/uL (0-0.7); Eosinophils % (A) 4 %; Lymphocytes # (A) 2.3 k/uL (1.0-4.8); Lymphocytes % (A) 30 %; MCH 29.2 pg (25.0-35.0); MCHC 31.8 g/dL (31.0-37.0); MCV 91.7 fL (80.0-100.0); Monocytes # (A) 0.6 k/uL (0-1.0); Monocytes % (A) 8 %; Neutrophils # (A) 4.4 k/uL (1.3-7.7); Neutrophils % (A) 56 %; Platelet Count 199 k/uL (150-450); RDW 13.7 % (11.5-15.5)
[2024-06-24 07:20] LABS: ALT 22 U/L (4-34); AST 34 U/L (14-36); African American GFR (CKD) 69 (>60 ml/min/1.73 sqM); Albumin 3.8 g/dL (3.5-5.0); Alkaline Phosphatase 101 U/L (38-126); Anion Gap 4 mmol/L; Blood Urea Nitrogen 19 mg/dL (7-17); Carbon Dioxide 35 mmol/L (22-30); Chloride 98 mmol/L (98-107); Glucose 150 mg/dL (74-99); Non-African American GFR(CKD) 60 (>60 ml/min/1.73 sqM); Potassium 3.7 mmol/L (3.5-5.1); Sodium 137 mmol/L (137-145); Total Bilirubin 0.8 mg/dL (0.2-1.3); Total Protein 6.1 g/dL (6.3-8.2)
[2024-06-24 08:12] VITALS: PULSE 68
[2024-06-24 11:18] VITALS: BP 155/70; RESP 16; TEMP 97.9
[2024-06-24 11:38] LABS: Glucose,Whole Blood 166 mg/dL (70-110)
[2024-06-24] MEDS: LACOSAMIDE 50 MG TABLET PO SCH (11:58)
--- NOTE | 2024-06-24 13:26 | P.DS ---
Providers Date of admission: 06/21/24 19:48 Expected date of discharge: 06/24/24 Attending physician: Samara Pack Consults: 06/21/24 19:47 Consult Physician Routine Consulting Provider: Drew Pino Consult Reason/Comments: cva Do you want consulting provider notified?: Yes Primary care physician: [facility] Course: Hospital course: Patient is a 83-year-old female with history of diabetes mellitus, GERD, hyperlipidemia, hypertension, paroxysmal atrial fibrillation on Eliquis 5 mg twice daily, permanent pacemaker brought in by her daughter and son-in-law with a chief complaint of confusion that started yesterday afternoon. Patient was having confusion with word finding difficulties. Patient does use home oxygen of 2 L nasal cannula. Patient was seen at bedside. She stated that she underwent tilt table testing outpatient on Thursday. She took some Xanax yesterday around noon time and afterwards patient started becoming confused. Patient's daughter was at bedside. She stated that patient was having difficulties finding words and was becoming less alert compared to her normal baseline. As a result, they brought the patient over to the ED for evaluation. Patient currently denies any weakness in upper or lower extremity. No fever, chills, chest pain, shortness of breath, nausea or vomiting, belly pain, slurred speech, lower extremity swelling. Patient has a history of multiple TIAs in the past. In the ED patient was treated with Dilaudid 1 mg IV x 1, aspirin 324 mg p.o. x 1, morphine 4 mg IV x 1. Vitals on admission temperature 97.9, pulse rate 75, respiratory to 20, blood pressure 135/76, O2 sat 100% on nasal cannula at 2 L/min. EKG independently interpreted as electronic atrial pacemaker with ventricular rate of 68 bpm, minimal ST depression, QTc interval 419 ms. CXR shows may be some residual infiltrates from prior examination within the right perihilar region. Infection and masses should be considered. CT of brain shows no acute intracranial process. Follow-up MRI can be performed as clinically indicated. Chronic appearing periventricular white matter ischemic changes. No suspicious metastasis. CT angio of head and neck showed no flow-limiting stenosis bilateral carotid bifurcations. Normal variation [place]. Emphysema. Labs on admission show WBC 10.3, hemoglobin 13.3, hematocrit 41.4, platelets 197, PT 13, INR 1.2, PTT 22.3, sodium 138, potassium 4.2, chloride 101, carbon dioxide 26, BUN 32, creatinine 0.76, glucose 118, troponin less than 0.012. Patient was admitted to internal medicine service for further workup of altered mental status due to possible CVA/TIA. Neurology was consulted. Patient underwent EEG on 06/22/2024 which showed limited study no focal slowing, epileptiform discharge, or seizure on EEG. Echocardiogram on 06/23/2024 showed LVEF estimated at 55 to 60%. Repeat brain CT scan showed no evolving large vascular territory infarct identified. No acute intracranial hemorrhage or midline shift. Patient's mental status improved over the course of hospital stay. Patient was seen at bedside on 06/24/2024. She is medically stable to be discharged to [facility] where she will be undergoing rehab. Patient is recommended to follow-up with primary care physician in 1 week after discharge. Vimpat 50 mg oral twice daily and aspirin 81 mg oral daily were added to patient's home medication list. The rest of her home medication has been resumed. We have discontinued Xanax 0.5 mg oral at bedtime. Physical examination at discharge: General: nontoxic, no distress, appears at stated age Derm: warm, dry, intact Head: atraumatic, normocephalic, symmetric Eyes: EOMI, anicteric sclera Mouth: no lip lesion, mucus membranes moist Cardiovascular: S1 S2 reg, no murmur Lungs: CTA bilateral, no rhonchi, no rales, no accessory muscle use Abdominal: soft, non-tender to palpation Extremities: No cyanosis, clubbing, or pedal edema. Neuro: Alert, Oriented, Gross neurological examination did not reveal any focal deficits. Cranial nerves II to XII grossly intact. Bilateral upper and lower extremity muscle strength and sensation intact. Psych: well appearing, appropriate affect Attestation I have seen and examined this patient with my resident , discussed the same with the resident/VERENICE, and agree with the dictator's assessment and plan as written GENERAL: The patient is alert and oriented x3, not in any acute distress. Well developed, well nourished. HEENT: Pupils are round and equally reacting to light. EOMI. No scleral icterus. No conjunctival pallor. Normocephalic, atraumatic. No pharyngeal erythema. No thyromegaly. CARDIOVASCULAR: S1 and S2 present. No murmurs, rubs, or gallops. PULMONARY: Chest is clear to auscultation, no wheezing or crackles. ABDOMEN: Soft, nontender, nondistended, normoactive bowel sounds. No palpable organomegaly. MUSCULOSKELETAL: No joint swelling or deformity. EXTREMITIES: No cyanosis, clubbing, or pedal edema. NEUROLOGICAL: Gross neurological examination did not reveal any focal deficits. SKIN: No rashes. Dr. Kenn holcomb Patient Condition at Discharge: Stable Plan - Discharge Summary Discharge Rx Participant: Yes New Discharge Prescriptions: New Lacosamide [Vimpat] 50 mg PO BID 15 Days #30 tab Aspirin 81 mg PO DAILY 30 Days #30 tab Continue Fluticasone/Umeclidin/Vilanter [Trelegy Ellipta 100-62.5-25] 1 puff INHALATION RT-DAILY Albuterol Sulfate [Albuterol Sulfate Hfa] 2 puff INHALATION RT-Q4H PRN PRN Reason: Shortness Of Breath Apixaban [Eliquis] 5 mg PO BID metFORMIN HCL ER [Glucophage XR] 500 mg PO W/SUPPER PRN PRN Reason: CBG>150 DULoxetine HCL [Cymbalta] 60 mg PO BID Mirtazapine [Remeron] 15 mg PO HS Atorvastatin [Lipitor] 80 mg PO HS predniSONE 5 mg PO DAILY Pantoprazole Sodium [Protonix] 20 mg PO DAILY Metoprolol Succinate (ER) [Toprol XL] 100 mg PO BID Empagliflozin [Jardiance] 10 mg PO DAILY traMADol HCL 50 mg PO Q6H PRN 3 Days #12 tab PRN Reason: Pain ALPRAZolam [Xanax] 0.25 mg PO DAILY PRN 3 Days #3 tab PRN Reason: shaking/anxiety Discontinued ALPRAZolam [Xanax] 0.5 mg PO HS Discharge Medication List Fluticasone/Umeclidin/Vilanter [Trelegy Ellipta 100-62.5-25] 1 puff INHALATION RT-DAILY 04/19/20 [History] Albuterol Sulfate [Albuterol Sulfate Hfa] 2 puff INHALATION RT-Q4H PRN 12/01/22 [History] Pantoprazole Sodium [Protonix] 20 mg PO DAILY 12/01/22 [History] Metoprolol Succinate (ER) [Toprol XL] 100 mg PO BID 06/27/23 [History] Apixaban [Eliquis] 5 mg PO BID 04/07/24 [History] DULoxetine HCL [Cymbalta] 60 mg PO BID 04/07/24 [History] Empagliflozin [Jardiance] 10 mg PO DAILY 04/07/24 [History] Mirtazapine [Remeron] 15 mg PO HS 04/07/24 [History] metFORMIN HCL ER [Glucophage XR] 500 mg PO W/SUPPER PRN 04/07/24 [History] Atorvastatin [Lipitor] 80 mg PO HS 06/21/24 [History] predniSONE 5 mg PO DAILY 06/21/24 [History] ALPRAZolam [Xanax] 0.25 mg PO DAILY PRN 3 Days #3 tab 06/24/24 [Rx] Aspirin 81 mg PO DAILY 30 Days #30 tab 06/24/24 [Rx] Lacosamide [Vimpat] 50 mg PO BID 15 Days #30 tab 06/24/24 [Rx] traMADol HCL 50 mg PO Q6H PRN 3 Days #12 tab 06/24/24 [Rx] Follow up Appointment(s)/Referral(s): Nohemi Estrdaa MD [Primary Care Provider] - 06/29/24 10:15 am (Amy MARTIN) Discharge Disposition: TRANSFER TO SNF/ECF
--- NOTE | 2024-06-24 14:35 | P.PN ---
Subjective Progress Note Date: 06/24/24 I am following up with the patient and patient daughters are at bedside who helps with some of the history. It seems that the patient has a history of remote seizures in the past and per the daughters do not clear when with his last seizure but they think what happened last time 12 years ago and she was not on any medication for her seizure. She is to have blank stare some shaking episode with confusion and unsure if patient followed up with a neurologist in the past regarding no seizures or not. Regarding this hospital visit seems patient after the tilt table test this Thursday she does not recall what happened for 24 hours. Per the daughter the patient was severely confused. Patient is still does not remember what transpired. Patient states that she had 4 similar episodes like this in the past but the daughter states this was worse and she was severely confused. It seems that she followed up with a neurologist locally and they think that Dr. Henson but it seems that the family were not satisfied with the care. According the routine EEG in our facility patient was not compliant and she stated she had difficulty with the health and safety technician and does not want to pursue with another EEG in our facility during this hospital visit. Objective - Vital Signs Vital signs: Vital Signs Temp 97.9 F 06/24/24 11:05 Pulse 68 06/24/24 11:05 Resp 16 06/24/24 11:05 BP 155/70 06/24/24 11:05 Pulse Ox 98 06/24/24 11:05 FiO2 Intake & Output 06/23/24 06/24/24 06/24/24 18:59 06:59 18:59 Intake Total 200 500 Balance 200 500 Weight 53.3 kg Intake: Intake, IV Titration 20 Amount Sodium Chloride 0.9% 1, 20 000 ml @ 20 mls/hr IV . Q24H LETICIA Rx#:[id number] Oral 200 480 Other: Voiding Method Toilet # Voids 1 3 1 - Exam General: Patient is lying in bed and is not in acute distress Neuro: Patient is awake alert oriented to self place and time. Patient follows simple commands. No aphasia. Pupils are round about 3 mm reactive to light. Patient has difficulty will do visual eason because of her macular degeneration. No facial weakness. No dysarthria The motor the strength is 5 out of 5 throughout. Sensation is normal to touch throughout. Some of the workup during this hospital visit consisted of: I reviewed the lab workup. TSH: 2.170 Ammonia is less than 9. CT of the head is reported as no acute intracranial process. I personally reviewed the CT and agree with report CT angiography of the head and neck is reported as no flow-limiting stenosis bilateral carotid bifurcation. Normal variation [place]. Emphysema Routine EEG is very limited study and only 4 minutes was recorded and she refused to comply for the rest. With the limitation, the background is normal. There is no focal slowing, Epileptiform discharge or seizure on the EEG. CT of the head is reported as no evolving large vessel territory infarct is identified. No acute intracranial hemorrhage or midline shift. The echo is reported as no obvious regional wall motion abnormality. PPM wire noted in right atrium and right ventricle. No significant valvular dysfunction echo. - Labs CBC & Chem 7: 06/24/24 06:31 06/24/24 06:31 Labs: Abnormal Lab Results - Last 24 Hours (Table) 06/23/24 06/23/24 06/24/24 Range/Units 17:02 20:12 05:59 Carbon Dioxide (22-30) mmol/L BUN (7-17) mg/dL Glucose (74-99) mg/dL POC Glucose (mg/dL) 293 H 133 H 142 H (70-110) mg/dL Total Protein (6.3-8.2) g/dL 06/24/24 06/24/24 Range/Units 06:31 11:36 Carbon Dioxide 35 H (22-30) mmol/L BUN 19 H (7-17) mg/dL Glucose 150 H (74-99) mg/dL POC Glucose (mg/dL) 166 H (70-110) mg/dL Total Protein 6.1 L (6.3-8.2) g/dL Assessment and Plan Assessment: This is an 83-year-old woman who presented emergency department on 06/21/2024 for confusion and the daughter felt that she was having word finding difficulty. She had has underlying history of atrial fibrillation and she is on Eliquis Episode of confusion with word finding difficulty and it seems patient does not recall what transpired and patient had 4 similar episodes in the past like this but per family they feel this 1 was prolonged: Concerned more about seizure especially with the patient history of seizures in the past. I feel less suspicious of TIA since I am more concerned about seizure. History of seizures in the past and the daughter thinks her seizures was last 12 years ago and she used to have blank stare confused and was never on any antiseizure medication: She refused she had workup for the seizures in the past. History of atrial fibrillation on Eliquis Presyncope status post pacemaker. It seems the patient has positive orthostatic on 06/20/2024 History of TIA History of DVT History of diabetes mellitus History of fibromyalgia Hypertension Hyperlipidemia History of sleep apnea on BiPAP Chronic back pain history of lung cancer post radiation Plan: Cannot obtain the MRI since has a pacemaker therefore we will get a repeat CT of the head by tomorrow morning The family did not want to start her on Keppra since it can cause mood and behavioral issues. Therefore I started the patient on Vimpat 50 mg twice daily. I recommend a routine EEG or prolonged EEG. She had a limited EEG in our facility with only 4 minutes recording which was negative for any seizures and declined to pursue with the standard routine EEG. Seizure precautions seizure pads Per the [facility] because of the seizure, to avoid driving for 6 months until seizure-free, avoid heights, avoid swimming assisted or using heavy machinery She was resumed on Eliquis 2.5 mg twice daily. Patient had a recent vitamin B12 towards the end of 2023 which was normal. Continue neurochecks Cardiac monitoring PT OT are consulted. I also consulted PHYSICIAN'S AIDE Will defer the rest of the medical management to primary and other specialist. For DVT prophylaxis the patient is on Eliquis. Commend the patient to follow-up with a neurologist as an outpatient within 2 weeks. The plan discussed with the patient and her daughters are at bedside. There is no further neurological workup. Will sign off. Please reconsult if needed. Time with Patient: Less than 30
== END 2024-06-24 15:02 | DRG 93 ==
LOC: EC 15:29 → 3SCARD 19:48
PROVIDERS: ADMIT Hospitalist; ATTEND Hospitalist
PROC: 4A10X4Z Monitoring of Central Nervous Electrical Activity, External Approach (ICD-10-PCS; principal; 2024-06-22)
DX: G92.8 Other toxic encephalopathy (principal); I11.0 Hypertensive heart disease with heart failure; I50.9 Heart failure, unspecified; E11.9 Type 2 diabetes mellitus without complications; I48.0 Paroxysmal atrial fibrillation; E78.5 Hyperlipidemia, unspecified; R55 Syncope and collapse; J43.9 Emphysema, unspecified; T42.4X5A Adverse effect of benzodiazepines, initial encounter; K21.9 Gastro-esophageal reflux disease without esophagitis; Z95.0 Presence of cardiac pacemaker; G47.30 Sleep apnea, unspecified; G89.29 Other chronic pain; M54.9 Dorsalgia, unspecified; Z85.118 Personal history of other malignant neoplasm of bronchus and lung; M79.7 Fibromyalgia; Z86.718 Personal history of other venous thrombosis and embolism; Z79.4 Long term (current) use of insulin; Z79.899 Other long term (current) drug therapy; X58.XXXA Exposure to other specified factors, initial encounter; H35.30 Unspecified macular degeneration; M19.90 Unspecified osteoarthritis, unspecified site; I73.00 Raynaud's syndrome without gangrene; Z79.01 Long term (current) use of anticoagulants; Z79.82 Long term (current) use of aspirin; Z79.84 Long term (current) use of oral hypoglycemic drugs; Z82.49 Family history of ischemic heart disease and other diseases of the circulatory system; Z86.73 Personal history of transient ischemic attack (TIA), and cerebral infarction without residual deficits; Z87.891 Personal history of nicotine dependence; Z87.01 Personal history of pneumonia (recurrent); Z90.49 Acquired absence of other specified parts of digestive tract; Z86.14 Personal history of Methicillin resistant Staphylococcus aureus infection
CPT/HCPCS: 36415; 70450; 70496; 70498; 71045; 71046; 80053; 82140; 82550; 83036; 83880; 84443; 84484; 85025; 85610; 85730; 93005; 93308; 94640; 96374; 96375; 99285

== ENCOUNTER 2024-08-17 19:06 | Observation (INO) | payer MEDICARE, OTHER ==
[2024-08-17 19:11] LABS: Glucose,Whole Blood 119 mg/dL (70-110)
[2024-08-17 19:28] LABS: Glucose,Whole Blood 148 mg/dL (70-110)
--- NOTE | 2024-08-17 19:36 | ED ---
General Adult HPI <Paulino Torres - Last Filed: 08/17/24 22:42> - General Source: patient Mode of arrival: ambulatory Limitations: no limitations <Lexus Sepulveda - Last Filed: 08/20/24 17:53> - General Chief complaint: Neuro Symptoms/Deficit Stated complaint: Neuro Symptoms Time Seen by Provider: 08/17/24 19:19 - History of Present Illness Initial comments: History is limited by acute of condition. Patient is an 84-year-old female presenting today for aphasia. Started at 2 PM. Persistent difficulty word finding. States she does have chronic vision changes from macular degeneration but denies any acute changes. Denies chest pain shortness breath fevers or chills. States he does have a headache but is not severe in nature. Current Eliquis twice daily due to pacemaker. Was admitted about 1 month ago for similar symptoms diagnosed with a TIA. (Lexus Sepulveda) - Related Data Home Medications Medication Instructions Recorded Confirmed Fluticasone/Umeclidin/Vilanter 1 puff INHALATION RT-DAILY 04/19/20 08/18/24 [Trelegy Ellipta 100-62.5-25] Pantoprazole Sodium [Protonix] 20 mg PO DAILY 12/01/22 08/18/24 Apixaban [Eliquis] 5 mg PO BID 04/07/24 08/18/24 Mirtazapine [Remeron] 15 mg PO HS 04/07/24 08/18/24 Atorvastatin [Lipitor] 80 mg PO HS 06/21/24 08/18/24 predniSONE 5 mg PO DAILY 06/21/24 08/18/24 ALPRAZolam [Xanax] 0.25 mg PO TID PRN 08/18/24 08/18/24 Cefuroxime [Ceftin] 250 mg PO BID 08/18/24 08/18/24 Fluconazole [Diflucan] 100 mg PO DIRECTED 08/18/24 08/18/24 Irbesartan [Avapro] 75 mg PO DAILY 08/18/24 08/18/24 Metoprolol Succinate (ER) [Toprol 100 mg PO BID 08/18/24 08/18/24 XL] Midodrine [ProAmatine] 10 mg PO BID@0900,1400 08/18/24 08/18/24 Previous Rx's Medication Instructions Recorded traMADol HCL 50 mg PO Q6H PRN 3 Days #12 tab 06/24/24 Clopidogrel [Plavix] 75 mg PO DAILY 30 Days #30 tab 08/20/24 Lacosamide [Vimpat] 50 mg PO BID 30 Days #60 tab 08/20/24 metFORMIN HCL [Glucophage] 500 mg PO BID 30 Days #60 tab 08/20/24 Allergies Allergy/AdvReac Type Severity Reaction Status Date / Time No Known Allergies Allergy Verified 08/18/24 08:34 Review of Systems ROS Other: All systems not noted in ROS Statement are negative. <Paulino Torres - Last Filed: 08/17/24 22:42> ROS Other: All systems not noted in ROS Statement are negative. <Lexus Sepulveda - Last Filed: 08/20/24 17:53> ROS Statement: Those systems with pertinent positive or pertinent negative responses have been documented in the HPI. Past Medical History Past Medical History: Atrial Fibrillation, Cancer, Heart Failure, COPD, CVA/TIA, Diabetes Mellitus, Deep Vein Thrombosis (DVT), Fibromyalgia, GERD/Reflux, Hyperlipidemia, Hypertension, Osteoarthritis (OA), Pneumonia, Sleep Apnea/CPAP/BIPAP, Vascular Disorder Additional Past Medical History / Comment(s): back pain , lung cancer-radiation opnly, HOME 02 2 LITERS N/C, BLOOD CLOT AFTER SX, CVA LT SIDE AFFECTED SINCE RESOLVED, HIATAL HERNIA. SHINGLES 30 YEARS AGO, DOES'NT USE CPAP MACHINE.in past for short period of time took oral meds for dm-then taken off meds-pt stated not considered diabetic now but occ will check bs., macular degeneration.past broken rt leg and lt wrist. Raynauds. Pt currently has 3 fractured ribs on the right that she has "had for years and will not heal". History of Any Multi-Drug Resistant Organisms: MRSA Date of last positivie culture/infection: 09/25/16 MDRO Source:: BRONCH WASH Past Surgical History: Cholecystectomy, Heart Catheterization With Stent, Orthopedic Surgery Additional Past Surgical History / Comment(s): rt leg repaired after break-has pins, lt wrist-plate and screws. lung bx, stents tung groins. Past Anesthesia/Blood Transfusion Reactions: Family History of Problems w/ Anesthesia Additional Past Anesthesia/Blood Transfusion Reaction / Comment(s): daughter has diff waking after aa Date of Last Stent Placement:: unk Type of Cardiac Device: Permanent Pacemaker Device Placement Date:: 09/25/20 Past Psychological History: Anxiety Smoking Status: Former smoker Past Alcohol Use History: Occasional Past Drug Use History: None Reported - Past Family History Father Family Medical History: Congestive Heart Failure (CHF), COPD Additional Family Medical History / Comment(s): emphysema Mother Family Medical History: Cancer <Lexus Sepulveda - Last Filed: 08/20/24 17:53> General Exam Limitations: no limitations <Lexus Sepulveda - Last Filed: 08/20/24 17:53> - General Exam Comments Initial Comments: PE: CONSTITUTIONAL: [no apparent distress, well appearing] SKIN: [warm, dry, no jaundice, hives or petechiae] EYES:[ pupils are equally round, extraocular movements intact without nystagmus, clear conjunctiva, non-icteric sclera] HENT: [normocephalic, atraumatic, moist mucus membranes, oropharynx clear without exudates] NECK: , [Full range of motion, normal appearance] PULMONARY: [clear to auscultation without wheezes, rhonchi, or rales, normal excursion, no accessory muscle use and no stridor] CARDIOVASCULAR:[ regular rate, rhythm, normal S1 and S2. No appreciated murmurs, rubs or gallops. Strong radial pulses with intact distal perfusion. No lower extremity edema] GASTROINTESTINAL: [soft, active bowel sounds throughout, non-tender, non- distended, no palpable masses, no rebound or guarding. No hepatosplenomegaly] GENITOURINARY: MUSCULOSKELETAL: [Extremities have no gross deformity, no edema, redness, or swelling. No calf swelling ] NEUROLOGIC: [_a/o x 3, GCS 15, cranial nerves: II (visual eason without defects), III, IV and (extraocular movements are intact, pupils are equal with normal reaction to light), V (intact facial sensation and jaw opening), VII (no facial droop), IX and X (normal palate movement, midline uvula, normal voice), XI (symmetrical shoulder shrug and lateral head rotation against resistance), XII (midline tongue protrusion). Motor strength is 5/5 in all extremities. No abnormal movements. Normal muscle tone. Sensation to light touch is intact bilaterally. No cerebellar signs (hopyve-ya-[id number], djnl-[id number], and rapid alternating movements are normal)] significant aphasia, is able provide brief history of though intermittently has difficulty finding words, unable to identify a watch but is able to state that you tell time with identifies a pen out of phone correctly PSYCHIATRIC:[ _normal mood and affect, thought process is clear and linear] (Georgian,Lexus) Course Vital Signs 08/17/24 08/17/24 08/17/24 19:09 19:31 19:46 Temperature 98.2 F Pulse Rate 80 60 59 L Pulse Rate [ Route Sales Manager ] Respiratory 20 18 18 Rate Blood Pressure 196/88 200/83 187/77 Blood Pressure [Left Arm] Blood Pressure [Right Arm] O2 Sat by Pulse 99 100 100 Oximetry 08/17/24 08/17/24 08/17/24 19:57 20:58 22:42 Temperature Pulse Rate 60 57 L 63 Pulse Rate [ Route Sales Manager ] Respiratory 18 18 16 Rate Blood Pressure 180/114 177/74 159/58 Blood Pressure [Left Arm] Blood Pressure [Right Arm] O2 Sat by Pulse 100 99 Oximetry 08/18/24 08/18/24 08/18/24 00:55 03:00 06:33 Temperature Pulse Rate 80 61 60 Pulse Rate [ Route Sales Manager ] Respiratory 22 18 12 Rate Blood Pressure 185/88 157/63 195/74 Blood Pressure [Left Arm] Blood Pressure [Right Arm] O2 Sat by Pulse 99 98 97 Oximetry 08/18/24 08/18/24 08/18/24 07:00 07:27 08:00 Temperature 98.4 F Pulse Rate 61 74 Pulse Rate [ Route Sales Manager ] Respiratory 16 18 20 Rate Blood Pressure 166/72 166/72 Blood Pressure [Left Arm] Blood Pressure [Right Arm] O2 Sat by Pulse 96 Oximetry 08/18/24 08/18/24 08/18/24 09:35 14:00 14:01 Temperature 98.4 F Pulse Rate Pulse Rate [ 62 64 Route Sales Manager ] Respiratory 16 20 18 Rate Blood Pressure Blood Pressure [Left Arm] Blood Pressure 194/87 185/80 [Right Arm] O2 Sat by Pulse 100 96 Oximetry 08/18/24 17:56 Temperature 97.6 F Pulse Rate Pulse Rate [ 77 Route Sales Manager ] Respiratory 18 Rate Blood Pressure Blood Pressure 207/92 [Left Arm] Blood Pressure 211/81 [Right Arm] O2 Sat by Pulse 98 Oximetry EKG Findings - EKG Comments: EKG Findings:: Electronic Paced rhythm, rate neck 59 bpm OR interval 225 ms QT/QTc 430/428 ms, no ST elevations or depressions, no arrhythmia Q-wave noted in lead V1, V2, V3 <Lexus Sepulveda - Last Filed: 08/20/24 17:53> Medical Decision Making - Lab Data Result diagrams: 08/17/24 19:41 08/17/24 19:41 <Paulino Torres - Last Filed: 08/17/24 22:42> - Lab Data Result diagrams: 08/18/24 07:20 08/18/24 07:20 <Leuxs Sepulveda - Last Filed: 08/20/24 17:53> - Medical Decision Making I discussed the case with the on-call neurointensivist, Dr. Hudson who called back after Dr. Sepulveda had left. We discussed the CTA findings of the stenosis of the left ICA. He did recommend holding anticoagulation at this time and starting the patient on aspirin and Plavix 300 mg and evaluation by vascular surgery. These orders were placed. (Paulino Torres) Was pt. sent in by a medical professional or institution (, PA, [facility], urgent care, hospital, or intermediate...) When possible be specific @ -No Did you speak to anyone other than the patient for history (EMS, parent, family, police, friend...)? What history was obtained from this source @ -No Did you review nursing and triage notes (agree or disagree)? Why? @ -I reviewed nursing and triage notes Were old charts reviewed (outside hosp., previous admission, EMS record, old EKG, old radiological studies, urgent care reports/EKG's, intermediate records)? Report findings @ -Medical records reviewed reviewed discharge summary from patient's recent admission at the end of May, patient was admitted for similar symptoms though had occurred for 2 days, CT brain showed no acute process at that time. Differential Diagnosis (chest pain, altered mental status, abdominal pain women, abdominal pain men, vaginal bleeding, weakness, fever, dyspnea, syncope, headache, dizziness, GI bleed, back pain, seizure, CVA, palpatations, mental health, musculoskeletal)? @Differential CVA Ischemic stroke, hemorrhagic stroke, brain tumor, atypical migraine, Wernicke's encephalopathy, seizure, multiple sclerosis, meningitis, encephalitis, hypoglycemia, Guillain-Renteria, electrolytes disturbance, myasthenia gravis.... This is not meant to be an all-inclusive list EKG interpreted by me (3pts min.). @ -As above X-rays interpreted by me (1pt min.). @ -Personally reviewed chest x-ray I see no evidence of cardiomegaly, conso lidations or acute process I agree with radiologist interpretation CT interpreted by me (1pt min.). @Personally reviewed CT brain, I see no evidence of hemorrhage, personally reviewed CTA see no evidence of large vessel occlusion or mass effect I agree with radiologist interpretation U/S interpreted by me (1pt. min.). @ -None done What testing was considered but not performed or refused? (CT, X-rays, U/S, labs)? Why? @ -None What meds were considered but not given or refused? Why? @ -None Did you discuss the management of the patient with other professionals (professionals i.e. , PA, [employer], lab, RT, psych nurse, social media developer, drawing box tender, teacher, protection officer, medical case manager)? Give summary @ Stroke alert, case discussed w/ Dr. Jensen, agrees w/ POC, agrees pt not tNK candidate Was smoking cessation discussed for >3mins.? @ -No Was critical care preformed (if so, how long)? @Yes 35 minutes Were there social determinants of health that impacted care today? How? (Homelessness, low income, unemployed, alcoholism, drug addiction, transportation, low edu. Level, literacy, decrease access to med. care, snf, rehab)? @ -No Was there de-escalation of care discussed even if they declined (Discuss DNR or withdrawal of care, Hospice)? @ -No What co-morbidities impacted this encounter? (DM, HTN, Smoking, COPD, CAD, Cancer, CVA, ARF, Chemo, Hep., AIDS, mental health diagnosis, sleep apnea, morb id obesity)? @ -prior CVA HTN Was patient admitted / discharged? Hospital course, mention meds given and route, prescriptions, significant lab abnormalities, going to OR and other pertinent info. @Admission. patient is an 84-year-old female past medical history stroke, prior TIAs, pacemaker on Eliquis presenting today for difficulty with word finding x 5 hours. Last known normal 2 PM. Blood pressure on [id number] with heart rate of 80 transfer tech. Patient was evaluated upon rooming, [facility] 2 for aphasia. Patient is not a tNK candidate as she is outside the window for tenecteplase and additionally is on Eliquis. 10 mg IV labetalol ordered for blood pressure control, patient will receive stroke workup. Case discussed w/ Dr. Hudson, robert w/ POC. Patient's BP controlled after 10 mg IV labetolol. Patient states she feels that her aphasia is improving. I was notified by RN that patient appeared to have some left lower extremity weakness. On my assessment patient states that is i mproving as well this was not apparent on initial assessment, on my reassessment she has slight drift in the left lower extremity but does not hit bed, again of note patient states that this is improving. CT brain negative for hemorrhage/acute process. CTA does show 60% stenosis of the left ICA, I would expect if this was causing symptoms to have more global symptoms however I did page Dr. Hudson to discuss with him further. For the time being patient will be admitted for observation. Additionally patient's family notes that patient had an outpatient 60-minute EEG ordered by her neurologist, that was to be done here in the near future. Case discussed with Dr. Brizuela, [facility], patient admitted in stable condition. Undiagnosed new problem with uncertain prognosis? @ -No Drug Therapy requiring intensive monitoring for toxicity (Heparin, Nitro, Insulin, Cardizem)? @ -No Were any procedures done? @ -No Diagnosis/symptom? @Aphasia TIA, hypertensive emergency Acute, or Chronic, or Acute on Chronic? @acute Uncomplicated (without systemic symptoms) or Complicated (systemic symptoms)? @ -[complicated Side effects of treatment? @ -No Exacerbation, Progression, or Severe Exacerbation? @ -No Poses a threat to life or bodily function? How? (Chest pain, [place], [place], pneumonia, PE, COPD, DKA, ARF, appy, cholecystitis, CVA, Diverticulitis, Homicidal, Suicidal, threat to staff... and all critical care pts) @ Yes, if left untreated could result in LVO, or CVA w/ life altering deficits (Georgian,Lexus) - Lab Data Lab Results 08/17/24 08/17/24 08/17/24 Range/Units 19:10 19:27 19:41 WBC 10.5 (3.8-10.6) k/uL RBC 4.57 (3.80-5.40) m/uL Hgb 13.0 (11.4-16.0) gm/dL Hct 42.0 (34.0-46.0) % MCV 91.9 (80.0-100.0) fL MCH 28.5 (25.0-35.0) pg MCHC 31.0 (31.0-37.0) g/dL RDW 13.8 (11.5-15.5) % Plt Count 192 (150-450) k/uL MPV 8.7 Neutrophils % 77 % Lymphocytes % 17 % Monocytes % 3 % Eosinophils % 1 % Basophils % 0 % Neutrophils # 8.1 H (1.3-7.7) k/uL Lymphocytes # 1.8 (1.0-4.8) k/uL Monocytes # 0.4 (0-1.0) k/uL Eosinophils # 0.1 (0-0.7) k/uL Basophils # 0.0 (0-0.2) k/uL Hypochromasia Slight PT (10.0-12.5) sec INR (<1.2) APTT (22.0-30.0) sec Sodium (137-145) mmol/L Potassium (3.5-5.1) mmol/L Chloride (98-107) mmol/L Carbon Dioxide (22-30) mmol/L Anion Gap mmol/L BUN (7-17) mg/dL Creatinine (0.52-1.04) mg/dL Est GFR (CKD-EPI)AfAm (>60 ml/min/1.73 sqM) Est GFR (CKD-EPI)NonAf (>60 ml/min/1.73 sqM) Glucose (74-99) mg/dL POC Glucose (mg/dL) 119 H 148 H (70-110) mg/dL POC Glu Road Conductor ID VEGA Bernal Lissy Calcium (8.4-10.2) mg/dL Total Bilirubin (0.2-1.3) mg/dL AST (14-36) U/L ALT (4-34) U/L Alkaline Phosphatase (38-126) U/L Creatine Kinase (30-135) U/L Troponin I (0.000-0.034) ng/mL Total Protein (6.3-8.2) g/dL Albumin (3.5-5.0) g/dL 08/17/24 08/17/24 08/17/24 Range/Units 19:41 19:41 19:41 WBC (3.8-10.6) k/uL RBC (3.80-5.40) m/uL Hgb (11.4-16.0) gm/dL Hct (34.0-46.0) % MCV (80.0-100.0) fL MCH (25.0-35.0) pg MCHC (31.0-37.0) g/dL RDW (11.5-15.5) % Plt Count (150-450) k/uL MPV Neutrophils % % Lymphocytes % % Monocytes % % Eosinophils % % Basophils % % Neutrophils # (1.3-7.7) k/uL Lymphocytes # (1.0-4.8) k/uL Monocytes # (0-1.0) k/uL Eosinophils # (0-0.7) k/uL Basophils # (0-0.2) k/uL Hypochromasia PT 11.2 (10.0-12.5) sec INR 1.0 (<1.2) APTT 23.2 (22.0-30.0) sec Sodium 137 (137-145) mmol/L Potassium 4.6 (3.5-5.1) mmol/L Chloride 99 (98-107) mmol/L Carbon Dioxide 28 (22-30) mmol/L Anion Gap 10 mmol/L BUN 27 H (7-17) mg/dL Creatinine 0.75 (0.52-1.04) mg/dL Est GFR (CKD-EPI)AfAm 84 (>60 ml/min/1.73 sqM) Est GFR (CKD-EPI)NonAf 73 (>60 ml/min/1.73 sqM) Glucose 138 H (74-99) mg/dL POC Glucose (mg/dL) (70-110) mg/dL POC Glu Road Conductor ID Calcium 9.6 (8.4-10.2) mg/dL Total Bilirubin 0.7 (0.2-1.3) mg/dL AST 38 H (14-36) U/L ALT 22 (4-34) U/L Alkaline Phosphatase 60 (38-126) U/L Creatine Kinase 39 (30-135) U/L Troponin I <0.012 (0.000-0.034) ng/mL Total Protein 7.2 (6.3-8.2) g/dL Albumin 4.5 (3.5-5.0) g/dL Disposition <Paulino Torres - Last Filed: 08/17/24 22:42> <Lexus Sepulveda - Last Filed: 08/20/24 17:53> Clinical Impression: TIA (transient ischemic attack), Aphasia Disposition: ADMITTED IP TO THIS HOSP Condition: Stable
[2024-08-17] MEDS: LABETALOL 5 MG/ML VIAL MDV IVP STA (19:54)
[2024-08-17] MEDS: SODIUM CHLORIDE 0.9% 500 ML 500 ML IV STA (19:54)
--- NOTE | 2024-08-17 19:58 | CT ---
EXAMINATION TYPE: CODE STROKE: CT brain wo contr DATE OF EXAM: 08/17/2024 COMPARISON: CT June 23, 2019 CLINICAL INDICATION: Female, 84 years old with history of Neuro deficit, acute, stroke suspected, Sym ptoms started around 1400. last seen well around 1355 per family. Pt has difficulty with speaking and finding words. Hx of recent TIA. TECHNIQUE: CT scan of the head is performed without contrast. CT DLP: 1102.2 mGycm. Automated Exposure Control for Dose Reduction was Utilized. FINDINGS: There is no acute intracranial hemorrhage or midline shift identified. There is moderate diffuse ventricular and sulcal prominence redemonstrated. There is moderate to severe low-attenuatio n in the deep and periventricular white matter redemonstrated. At least partially empty sella morpho logy is redemonstrated. Bilateral aphakia is redemonstrated. Nasal septum is deviated to right of mid line. Near-complete opacification of left sphenoid sinus is again seen. IMPRESSION: No acute intracranial hemorrhage or midline shift. No significant change from most recen t prior CT. If Clinical concern for acute stroke persists further investigation with MRI study would be warranted . [facility], , 08/17/2024 7:55 PM
--- NOTE | 2024-08-17 20:00 | XR ---
EXAMINATION TYPE: XR chest 2V DATE OF EXAM: 08/17/2024 CLINICAL INDICATION: Female, 84 years old with history of altered mental status, TECHNIQUE: Frontal and lateral views of the chest are obtained. COMPARISON: Chest x-ray June 23, 2024 FINDINGS: There is some chronic parenchymal change without suspicious focal air space opacity, pleur al effusion, or pneumothorax seen. The cardiac silhouette size is stable and within normal limits. A dual-lead pacemaker is redemonstrated. Cholecystectomy clips are redemonstrated. The osseous struct ures are intact. IMPRESSION: Chronic changes without acute pulmonary process. [facility], , 08/17/2024 7:58 PM
[2024-08-17 20:10] LABS: Basophils % (A) 0 %; Eosinophils # (A) 0.1 k/uL (0-0.7); Eosinophils % (A) 1 %; Hypochromasia Slight; Lymphocytes # (A) 1.8 k/uL (1.0-4.8); Lymphocytes % (A) 17 %; MCH 28.5 pg (25.0-35.0); MCV 91.9 fL (80.0-100.0); Mean Platelet Volume 8.7; Monocytes # (A) 0.4 k/uL (0-1.0); Monocytes % (A) 3 %; Neutrophils # (A) 8.1 k/uL (1.3-7.7); Neutrophils % (A) 77 %; Platelet Count 192 k/uL (150-450); RBC 4.57 m/uL (3.80-5.40); RDW 13.8 % (11.5-15.5); WBC 10.5 k/uL (3.8-10.6)
[2024-08-17 20:15] LABS: ALT 22 U/L (4-34); AST 38 U/L (14-36); African American GFR (CKD) 84 (>60 ml/min/1.73 sqM); Albumin 4.5 g/dL (3.5-5.0); Alkaline Phosphatase 60 U/L (38-126); Anion Gap 10 mmol/L; Blood Urea Nitrogen 27 mg/dL (7-17); Calcium 9.6 mg/dL (8.4-10.2); Carbon Dioxide 28 mmol/L (22-30); Chloride 99 mmol/L (98-107); Creatine Kinase 39 U/L (30-135); Glucose 138 mg/dL (74-99); Non-African American GFR(CKD) 73 (>60 ml/min/1.73 sqM); Potassium 4.6 mmol/L (3.5-5.1); Sodium 137 mmol/L (137-145); Total Bilirubin 0.7 mg/dL (0.2-1.3); Total Protein 7.2 g/dL (6.3-8.2)
[2024-08-17 20:19] LABS: Partial Thromboplastin Time 23.2 sec (22.0-30.0); Prothrombin Time 11.2 sec (10.0-12.5)
--- NOTE | 2024-08-17 21:04 | CT ---
EXAMINATION TYPE: CT angio head neck DATE OF EXAM: 08/17/2024 COMPARISON: CTA less than 2 months ago. CLINICAL INDICATION: Female, 84 years old with history of Neuro deficit, acute, stroke suspected, Sym ptoms started around 1400. last seen well around 1355 per family. Pt has difficulty with speaking and finding words. Hx of recent TIA., TECHNIQUE: CTA scan of the head and neck is performed with IV Contrast, patient injected with 65ml m L of Isovue 370, axial images are obtained, coronal and sagittal reformatted images are reviewed. 3D reconstructed images are created on an independent workstation and reviewed. NASCET criteria was used in interpretation of this exam? CT DLP: 349.1 mGycm. Automated Exposure Control for Dose Reduction was Utilized. FINDINGS: Vertebral arteries: The vertebral arteries are patent. Vertebral artery dominance: Left vertebral artery is dominant Basilar artery: The basilar artery is intact. The basilar artery bifurcation is normal. Internal Carotid arteries: The cervical, petrous, cavernous and supraclinoid segments show persistent moderate to severe peripheral calcified plaque. MARSHA: Hypoplastic right A1 segment redemonstrated. ACOM: Present without evidence of aneurysm. MCA: Patent with no evidence of aneurysm. RING SEWER: Patent with no evidence of aneurysm. PCOM: Hypoplastic bilaterally. Dural sinuses: Patent. CTA NECK: Right Carotid System: The common carotid artery and external carotid artery are patent. The carotid bifurcation demonstrate s no evidence of hemodynamically significant stenosis. Mild to moderate peripheral plaque at this lev el is redemonstrated. The remaining portions of the internal carotid artery demonstrate normal size w ithout significant narrowing. Left Carotid System: The common carotid artery and external carotid artery are patent. The carotid bifurcation demonstrate s [id number] peripheral calcified plaque causing stenosis up to 2.2 mm axial image 81 with re constitution to 5.6 mm superior to this. The remaining portions of the internal carotid artery demons trate normal size without significant narrowing. Vertebral arteries are patent without evidence hemodynamically significant stenosis. Left vertebral a rtery is dominant. There is a three-vessel aortic arch. The origins of the great vessels are patent. No evidence of hemo dynamically significant stenosis. Opacification in the left sphenoid sinus again seen. Somewhat small size thyroid gland again seen. Mo derate emphysematous changes in upper lungs redemonstrated. There is enlarging suspicious 1.1 cm post erior left upper lobe pulmonary nodule axial image 35. IMPRESSION: 1. No evidence of intracranial large vessel occlusion or intracranial aneurysm. 2. Stable moderate to severe focal plaque proximal left internal carotid artery causing hemodynamical ly significant stenosis measured near 60% diameter loss on today's study. 3. There is enlarging 1.1 cm posterior left upper lobe pulmonary nodule worrisome for neoplastic prog ression. Findings correlate with most recent PET/CT June 16, 2024. [facility], , 08/17/2024 9:02 PM
[2024-08-17] MEDS ORDERED: ACETAMINOPHEN TAB 325 MG TAB PO PRN (21:48)
[2024-08-17] MEDS: ALPRAZolam 0.25 MG TAB PO STA (22:44)
[2024-08-17] MEDS ORDERED: ASPIRIN 325 MG TAB PO SCH (22:45)
[2024-08-17] MEDS: CLOPIDOGREL 75 MG TAB PO STA (23:11)
[2024-08-17] MEDS: ASPIRIN 325 MG TAB PO STA (23:11)
--- NOTE | 2024-08-18 02:02 | P.HPIM ---
History of Present Illness H&P Date: 08/18/24 Patient is a 84-year-old female with a PMH of A-fib on Eliquis, type II DM, COPD, hypertension, hyperlipidemia, and history of TIA who presents to the emergency room with complaints of speech difficulties. The patient reports that she was in her usual state of health until 2 PM when she noticed that she was no longer able to " get words out". She reports having similar symptoms multiple times over the past year but that they normally would resolve quickly. At time of onset of her symptoms, she checked her blood pressure and noticed that it was very high with systolics as high as 200s. She also reported feeling headache with "weak eyes". Also reported noticing new left lower extremity weakness, which she has previously experienced from TIAs but had fully resolved prior to this episode. At time of interview, patient notes that her speech has returned largely back to baseline. She denied experiencing visual deficits, nausea, vomiting, abdominal pain, diarrhea. Denies fever, chills, Chest pain, shortness of breath. CT brain in the emergency room was unremarkable with CT angiogram of head and neck showing 60% stenosis of the left ICA. There was also 1.1 cm posterior left upper lobe pulmonary nodule concerning for neoplastic progression. The patient does report a prior history of lung cancer with recent relapse for which she has been following with Dr. Patel. Patient was told that she is not a candidate for most treatment modalities. Laboratory evaluation reveals WBC count of 10.5, hemoglobin 13.0, sodium 137, BUN 27, creatinine 0.75, glucose 138 with troponin less than 0.012. Of note, the patient was discussed with neurointensivist on-call by ER provider and patient was noted to not be a candidate for tenecteplase. ED documentation reviewed and case discussed with ED provider. Review of systems: Pertinent positives and negatives as discussed in HPI, a complete review of systems was performed and all other systems are negative. Physical examination: Vital signs reviewed General: non toxic, no distress, appears at stated age, normal weight Derm: no unusual rashes/lesions, warm Head: atraumatic, normocephalic, symmetric Eyes: EOMI, no lid lag, anicteric sclera, pupils equal round reactive to light ENT: Nose and ears atraumatic Neck: No cervical lymphadenopathy, trachea midline, supple Mouth: no lip lesion, mucus membranes moist Cardiovascular: S1S2 reg, no murmur, positive dorsalis pedis pulse bilateral, no edema Lungs: CTA bilateral, no rhonchi, no rales, no accessory muscle use Abdominal: soft, nontender to palpation, no guarding Ext: muscle strength 5 out of 5 in all 4 extremities grossly, no gross muscle atrophy, no contractures, absent pronator drift Neuro: CN II-XI grossly intact, no gross focal neuro deficits Psych: Alert, oriented, appropriate affect Assessment: Aphasia, significantly improved, rule out TIA Chronic conditions: COPD, A-fib, hypertension, hyperlipidemia, type II DM Imaging: CT brain in the emergency room was unremarkable with CT angiogram of head and neck showing 60% stenosis of the left ICA. There was also 1.1 cm posterior left upper lobe pulmonary nodule concerning for neoplastic progression. The patient does report a prior history of lung cancer with recent relapse for which she has been following with Dr. Patel. Patient was told that she is not a candidate for most treatment modalities. EKG in the emergency room revealed atrial paced rhythm at [address]/T wave changes noted as reviewed by me. Data Review: Laboratory evaluation reveals WBC count of 10.5, hemoglobin 13.0, sodium 137, BUN 27, creatinine 0.75, glucose 138 with troponin less than 0.012. Plan: Neurology consulted Vascular surgery consulted for L ICA stenosis Continue with aspirin and statin Obtain echocardiogram Cardiac monitoring C/w Neurochecks Resume home medications including insulin sliding scale and blood glucose monitoring DVT prophylaxis: Lovenox Subq The patient is admitted with an anticipated lessan 2 midnight stay for evaluation of aphasia CODE STATUS: Full Code Discussed with: Patient Anticipated discharge place: Home Past Medical History Past Medical History: Atrial Fibrillation, Cancer, Heart Failure, COPD, CVA/TIA, Diabetes Mellitus, Deep Vein Thrombosis (DVT), Fibromyalgia, GERD/Reflux, Hyperlipidemia, Hypertension, Osteoarthritis (OA), Pneumonia, Sleep Apnea/CPAP/BIPAP, Vascular Disorder Additional Past Medical History / Comment(s): back pain , lung cancer-radiation opnly, HOME 02 2 LITERS N/[place], BLOOD CLOT AFTER SX, CVA LT SIDE AFFECTED SINCE RESOLVED, HIATAL HERNIA. SHINGLES 30 YEARS AGO, DOES'NT USE CPAP MACHINE.in past for short period of time took oral meds for dm-then taken off meds-pt stated not considered diabetic now but occ will check bs., macular degeneration.past broken rt leg and lt wrist. Raynauds. Pt currently has 3 fractured ribs on the right that she has "had for years and will not heal". History of Any Multi-Drug Resistant Organisms: MRSA Date of last positivie culture/infection: 09/25/16 MDRO Source:: BRONCH WASH Past Surgical History: Cholecystectomy, Heart Catheterization With Stent, Orthopedic Surgery Additional Past Surgical History / Comment(s): rt leg repaired after break-has pins, lt wrist-plate and screws. lung bx, stents tung groins. Past Anesthesia/Blood Transfusion Reactions: Family History of Problems w/ Anesthesia Additional Past Anesthesia/Blood Transfusion Reaction / Comment(s): daughter has diff waking after aa Date of Last Stent Placement:: unk Type of Cardiac Device: Permanent Pacemaker Device Placement Date:: 09/25/20 Past Psychological History: Anxiety Smoking Status: Former smoker Past Alcohol Use History: Occasional Past Drug Use History: None Reported - Past Family History Father Family Medical History: Congestive Heart Failure (CHF), COPD Additional Family Medical History / Comment(s): emphysema Mother Family Medical History: Cancer Medications and Allergies Home Medications Medication Instructions Recorded Confirmed Type Fluticasone/Umeclidin/Vilanter 1 puff INHALATION RT-DAILY 04/19/20 06/21/24 History [Trelegy Ellipta 100-62.5-25] Albuterol Sulfate [Albuterol 2 puff INHALATION RT-Q4H PRN 12/01/22 06/21/24 History Sulfate Hfa] Pantoprazole Sodium [Protonix] 20 mg PO DAILY 12/01/22 06/21/24 History Metoprolol Succinate (ER) [Toprol 100 mg PO BID 06/27/23 06/21/24 History XL] Apixaban [Eliquis] 5 mg PO BID 04/07/24 06/21/24 History DULoxetine HCL [Cymbalta] 60 mg PO BID 04/07/24 06/21/24 History Empagliflozin [Jardiance] 10 mg PO DAILY 04/07/24 06/21/24 History Mirtazapine [Remeron] 15 mg PO HS 04/07/24 06/21/24 History metFORMIN HCL ER [Glucophage XR] 500 mg PO W/SUPPER PRN 04/07/24 06/21/24 History Atorvastatin [Lipitor] 80 mg PO HS 06/21/24 06/21/24 History predniSONE 5 mg PO DAILY 06/21/24 06/21/24 History ALPRAZolam [Xanax] 0.25 mg PO DAILY PRN 3 Days #3 tab 06/24/24 Rx Aspirin 81 mg PO DAILY 30 Days #30 tab 06/24/24 Rx Lacosamide [Vimpat] 50 mg PO BID 15 Days #30 tab 06/24/24 Rx traMADol HCL 50 mg PO Q6H PRN 3 Days #12 tab 06/24/24 Rx Allergies Allergy/AdvReac Type Severity Reaction Status Date / Time No Known Allergies Allergy Verified 08/17/24 19:12 Physical Exam Vitals: Vital Signs Temp Pulse Resp BP Pulse Ox 08/18/24 00:55 80 22 185/88 99 08/17/24 22:42 63 16 159/58 99 08/17/24 20:58 57 L 18 177/74 100 08/17/24 19:57 60 18 180/114 08/17/24 19:46 59 L 18 187/77 100 08/17/24 19:31 60 18 200/83 100 08/17/24 19:09 98.2 F 80 20 196/88 99 Intake and Output 08/17/24 08/17/24 08/18/24 14:59 22:59 06:59 Other: Weight 52.163 kg Results CBC & Chem 7: 08/17/24 19:41 08/17/24 19:41 Labs: Abnormal Lab Results - Last 24 Hours (Table) 08/17/24 08/17/24 08/17/24 Range/Units 19:10 19:27 19:41 Neutrophils # 8.1 H (1.3-7.7) k/uL BUN (7-17) mg/dL Glucose (74-99) mg/dL POC Glucose (mg/dL) 119 H 148 H (70-110) mg/dL AST (14-36) U/L 08/17/24 Range/Units 19:41 Neutrophils # (1.3-7.7) k/uL BUN 27 H (7-17) mg/dL Glucose 138 H (74-99) mg/dL POC Glucose (mg/dL) (70-110) mg/dL AST 38 H (14-36) U/L
[2024-08-18] MEDS: LABETALOL 5 MG/ML VIAL MDV IVP STA (05:38)
[2024-08-18 07:48] LABS: Basophils % (A) 0 %; Eosinophils # (A) 0.1 k/uL (0-0.7); Eosinophils % (A) 2 %; HCT 38.4 % (34.0-46.0); HGB 11.9 gm/dL (11.4-16.0); Hypochromasia Moderate; Lymphocytes % (A) 29 %; MCH 28.7 pg (25.0-35.0); MCHC 30.9 g/dL (31.0-37.0); MCV 92.9 fL (80.0-100.0); Mean Platelet Volume 8.1; Monocytes # (A) 0.4 k/uL (0-1.0); Monocytes % (A) 6 %; Neutrophils % (A) 61 %; Platelet Count 160 k/uL (150-450); RBC 4.14 m/uL (3.80-5.40); RDW 13.7 % (11.5-15.5); WBC 6.7 k/uL (3.8-10.6)
[2024-08-18 07:55] LABS: ALT 18 U/L (4-34); AST 26 U/L (14-36); African American GFR (CKD) 89 (>60 ml/min/1.73 sqM); Albumin 3.8 g/dL (3.5-5.0); Alkaline Phosphatase 57 U/L (38-126); Anion Gap 6 mmol/L; Blood Urea Nitrogen 16 mg/dL (7-17); Calcium 9.2 mg/dL (8.4-10.2); Carbon Dioxide 32 mmol/L (22-30); Chloride 101 mmol/L (98-107); Glucose 140 mg/dL (74-99); Magnesium 1.9 mg/dL (1.6-2.3); Non-African American GFR(CKD) 77 (>60 ml/min/1.73 sqM); Potassium 3.5 mmol/L (3.5-5.1); Sodium 139 mmol/L (137-145); Total Bilirubin 0.5 mg/dL (0.2-1.3); Total Protein 6.1 g/dL (6.3-8.2)
[2024-08-18 08:38] LABS: Glucose,Whole Blood 100 mg/dL (70-110)
[2024-08-18] MEDS: INSULIN LISPRO (HumaLOG) 100 UNIT/ML 10 mL VL SQ SCH (08:38)
[2024-08-18] MEDS ORDERED: FAMOTIDINE 20 MG TAB PO SCH (09:00)
[2024-08-18 10:25] LABS: Chol/HDL Ratio 2.16 Ratio; LDL Cholesterol,Calculated 53.9 mg/dL (0.0-131.0)
--- NOTE | 2024-08-18 10:58 | P.GSCN ---
History of Present Illness Consult date: 08/18/24 History of present illness: Patient is an 84-year-old female who came to the hospital. She is a history of A-fib on Eliquis, type 2 diabetes, COPD, hypertension, hyperlipidemia and history of TIAs. When she presented to the ER she came due to issues with speech difficulty in getting her words out. She states that she took her blood pressure at this timing and did have blood pressures over 200 [address] she was feeling this way. She has had issues with this previously but resolved relatively quickly, she is doing fine at this point without any further issues with her speech. She does have a newer onset of left lower extremity weakness which she has previously experienced but has not had this issue in some time. She denies any changes in vision, nausea, vomiting or abdominal pain. She on imaging had evidence of around 60% stenosis of the left internal carotid artery. There was also notation of a left upper lobe pulmonary nodule concerning for neoplastic progression. She has a history of lung cancer and relapse following with Dr. Patel and has been told is not a candidate for multiple modalities for treatment. She denies any significant issues or concerns at this time Past Medical History Past Medical History: Atrial Fibrillation, Cancer, Heart Failure, COPD, CVA/TIA, Diabetes Mellitus, Deep Vein Thrombosis (DVT), Fibromyalgia, GERD/Reflux, Hyperlipidemia, Hypertension, Osteoarthritis (OA), Pneumonia, Sleep Apnea/CPAP/BIPAP, Vascular Disorder Additional Past Medical History / Comment(s): back pain , lung cancer-radiation opnly, HOME 02 2 LITERS [place], BLOOD CLOT AFTER SX, CVA LT SIDE AFFECTED SINCE RESOLVED, HIATAL HERNIA. SHINGLES 30 YEARS AGO, DOES'NT USE CPAP MACHINE.in past for short period of time took oral meds for dm-then taken off meds-pt stated not considered diabetic now but occ will check bs., macular degeneration.past broken rt leg and lt wrist. Raynauds. Pt currently has 3 fractured ribs on the right that she has "had for years and will not heal". History of Any Multi-Drug Resistant Organisms: MRSA Year Discovered:: 09/25/16 MDRO Source:: BRONCH WASH Past Surgical History: Cholecystectomy, Heart Catheterization With Stent, Orthopedic Surgery Additional Past Surgical History / Comment(s): rt leg repaired after break-has pins, lt wrist-plate and screws. lung bx, stents tung groins. Past Anesthesia/Blood Transfusion Reactions: Family History of Problems w/ Anesthesia Additional Past Anesthesia/Blood Transfusion Reaction / Comm: daughter has diff waking after aa Date of Last Stent Placement:: unk Type of Cardiac Device: Permanent Pacemaker Device Placement Date:: 09/25/20 Past Psychological History: Anxiety Smoking Status: Former smoker Past Alcohol Use History: Occasional Past Drug Use History: None Reported - Past Family History Father Family Medical History: Congestive Heart Failure (CHF), COPD Additional Family Medical History / Comment(s): emphysema Mother Family Medical History: Cancer Medications and Allergies Home Medications Medication Instructions Recorded Confirmed Type Fluticasone/Umeclidin/Vilanter 1 puff INHALATION RT-DAILY 04/19/20 08/18/24 History [Trelelionel Ellipta 100-62.5-25] Pantoprazole Sodium [Protonix] 20 mg PO DAILY 12/01/22 08/18/24 History Apixaban [Eliquis] 5 mg PO BID 04/07/24 08/18/24 History Mirtazapine [Remeron] 15 mg PO HS 04/07/24 08/18/24 History Atorvastatin [Lipitor] 80 mg PO HS 06/21/24 08/18/24 History predniSONE 5 mg PO DAILY 06/21/24 08/18/24 History Aspirin 81 mg PO DAILY 30 Days #30 tab 06/24/24 08/18/24 Rx traMADol HCL 50 mg PO Q6H PRN 3 Days #12 tab 06/24/24 08/18/24 Rx ALPRAZolam [Xanax] 0.25 mg PO TID PRN 08/18/24 08/18/24 History Cefuroxime [Ceftin] 250 mg PO BID 08/18/24 08/18/24 History Fluconazole [Diflucan] 100 mg PO DIRECTED 08/18/24 08/18/24 History Irbesartan [Avapro] 75 mg PO DAILY 08/18/24 08/18/24 History Metoprolol Succinate (ER) [Toprol 100 mg PO BID 08/18/24 08/18/24 History Xl] Midodrine [ProAmatine] 10 mg PO BID@0900,1400 08/18/24 08/18/24 History Allergies Allergy/AdvReac Type Severity Reaction Status Date / Time No Known Allergies Allergy Verified 08/18/24 08:34 Surgical - Exam Vital Signs Temp Pulse Resp BP Pulse Ox 98.2 F 80 20 196/88 99 08/17/24 19:09 08/17/24 19:09 08/17/24 19:09 08/17/24 19:09 08/17/24 19:09 Physical examination: Vital signs reviewed General: non toxic, no distress, appears at stated age, normal weight Skin: no unusual rashes/lesions, warm HEENT normocephalic, atraumatic Lungs: No respiratory distress Abdominal: soft, nontender Neuro: CN II-XI grossly intact, no gross focal neuro deficits Psych: Alert, oriented, appropriate affect Results - Labs 08/18/24 07:20 08/18/24 07:20 Abnormal Lab Results - Last 24 Hours (Table) 08/17/24 08/17/24 08/17/24 Range/Units 19:10 19: 19:41 MCHC (31.0-37.0) g/dL Neutrophils # 8.1 H (1.3-7.7) k/uL Carbon Dioxide (22-30) mmol/L BUN (7-17) mg/dL Glucose (74-99) mg/dL POC Glucose (mg/dL) 119 H 148 H (70-110) mg/dL Hemoglobin A1c (<=6.0) % AST (14-36) U/L Total Protein (6.3-8.2) g/dL HDL Cholesterol (40.00-60.00) mg/dL 08/17/24 08/18/24 08/18/24 Range/Units 19:41 07:20 07:20 MCHC 30.9 L (31.0-37.0) g/dL Neutrophils # (1.3-7.7) k/uL Carbon Dioxide (22-30) mmol/L BUN 27 H (7-17) mg/dL Glucose 138 H (74-99) mg/dL POC Glucose (mg/dL) (70-110) mg/dL Hemoglobin A1c (<=6.0) % AST 38 H (14-36) U/L Total Protein (6.3-8.2) g/dL HDL Cholesterol 64.30 H (40.00-60.00) mg/dL 03/27/25 03/27/25 Range/Units 07:20 07:20 MCHC (31.0-37.0) g/dL Neutrophils # (1.3-7.7) k/uL Carbon Dioxide 32 H (22-30) mmol/L BUN (7-17) mg/dL Glucose 140 H (74-99) mg/dL POC Glucose (mg/dL) (70-110) mg/dL Hemoglobin A1c 6.6 H (<=6.0) % AST (14-36) U/L Total Protein 6.1 L (6.3-8.2) g/dL HDL Cholesterol (40.00-60.00) mg/dL Diabetes panel 08/17/24 08/18/24 08/18/24 Range/Units 19:41 07:20 07:20 Sodium 137 139 (137-145) mmol/L Potassium 4.6 3.5 (3.5-5.1) mmol/L Chloride 99 101 (98-107) mmol/L Carbon Dioxide 28 32 H (22-30) mmol/L BUN 27 H 16 (7-17) mg/dL Creatinine 0.75 0.72 (0.52-1.04) mg/dL Glucose 138 H 140 H (74-99) mg/dL Hemoglobin A1c (<=6.0) % Calcium 9.6 9.2 (8.4-10.2) mg/dL AST 38 H 26 (14-36) U/L ALT 22 18 (4-34) U/L Alkaline Phosphatase 60 57 (38-126) U/L Total Protein 7.2 6.1 L (6.3-8.2) g/dL Albumin 4.5 3.8 (3.5-5.0) g/dL Triglycerides 104.00 (0.00-149.00) mg/dL HDL Cholesterol 64.30 H (40.00-60.00) mg/dL 08/18/24 Range/Units 07:20 Sodium (137-145) mmol/L Potassium (3.5-5.1) mmol/L Chloride (98-107) mmol/L Carbon Dioxide (22-30) mmol/L BUN (7-17) mg/dL Creatinine (0.52-1.04) mg/dL Glucose (74-99) mg/dL Hemoglobin A1c 6.6 H (<=6.0) % Calcium (8.4-10.2) mg/dL AST (14-36) U/L ALT (4-34) U/L Alkaline Phosphatase (38-126) U/L Total Protein (6.3-8.2) g/dL Albumin (3.5-5.0) g/dL Triglycerides (0.00-149.00) mg/dL HDL Cholesterol (40.00-60.00) mg/dL Thyroid panel 08/18/24 Range/Units 07:20 TSH 1.380 (0.465-4.680) mIU/L Calcium panel 08/17/24 08/18/24 Range/Units 19:41 07:20 Calcium 9.6 9.2 (8.4-10.2) mg/dL Albumin 4.5 3.8 (3.5-5.0) g/dL Pituitary panel 08/17/24 08/18/24 Range/Units 19:41 07:20 Sodium 137 139 (137-145) mmol/L Potassium 4.6 3.5 (3.5-5.1) mmol/L Chloride 99 101 (98-107) mmol/L Carbon Dioxide 28 32 H (22-30) mmol/L BUN 27 H 16 (7-17) mg/dL Creatinine 0.75 0.72 (0.52-1.04) mg/dL Glucose 138 H 140 H (74-99) mg/dL Calcium 9.6 9.2 (8.4-10.2) mg/dL TSH 1.380 (0.465-4.680) mIU/L Adrenal panel 08/17/24 08/18/24 Range/Units 19:41 07:20 Sodium 137 139 (137-145) mmol/L Potassium 4.6 3.5 (3.5-5.1) mmol/L Chloride 99 101 (98-107) mmol/L Carbon Dioxide 28 32 H (22-30) mmol/L BUN 27 H 16 (7-17) mg/dL Creatinine 0.75 0.72 (0.52-1.04) mg/dL Glucose 138 H 140 H (74-99) mg/dL Calcium 9.6 9.2 (8.4-10.2) mg/dL Total Bilirubin 0.7 0.5 (0.2-1.3) mg/dL AST 38 H 26 (14-36) U/L ALT 22 18 (4-34) U/L Alkaline Phosphatase 60 57 (38-126) U/L Total Protein 7.2 6.1 L (6.3-8.2) g/dL Albumin 4.5 3.8 (3.5-5.0) g/dL Assessment and Plan Assessment: Short-term aphasia Hypertension, severe 194/87 Left carotid stenosis A-fib Type 2 diabetes Plan: I personally reviewed the images, there is potentially around 50% stenosis of the left internal carotid artery. Will obtain a carotid Doppler. Unfortunate the patient cannot get a MRI. At this time would be hesitant to be aggressive towards her carotid given her overall medical comorbidities and further issues but will continue to monitor and await neurologic input. She appears to be i mproved from previous issue. May consider increasing aspirin to Plavix but will await further recommendations per neurology as patient is already on Eliquis. Will continue to monitor.
[2024-08-18] MEDS: PANTOPRAZOLE 40 MG TABLET PO SCH (12:09)
[2024-08-18] MEDS: ASPIRIN 81 MG PO SCH (12:09)
[2024-08-18] MEDS: FAMOTIDINE 20 MG TAB PO SCH (12:09)
[2024-08-18] MEDS: ENOXAPARIN 40 MG/0.4 ML SYRINGE SQ SCH (12:09)
[2024-08-18 13:47] LABS: Glucose,Whole Blood 89 mg/dL (70-110)
[2024-08-18] MEDS ORDERED: traMADol 50 MG TAB PO PRN (13:51)
--- NOTE | 2024-08-18 13:55 | P.PN ---
Subjective Progress Note Date: 08/18/24 Hospital Course: Patient is a 84-year-old female with a PMH of A-fib on Eliquis, type II DM, CO PD, hypertension, hyperlipidemia, and history of TIA who presents to the emergency room with complaints of speech difficulties. The patient reports that she was in her usual state of health until 2 PM when she noticed that she was no longer able to " get words out". She reports having similar symptoms multiple times over the past year but that they normally would resolve quickly. At time of onset of her symptoms, she checked her blood pressure and noticed that it was very high with systolics as high as 200s. She also reported feeling headache with "weak eyes". Also reported noticing new left lower extremity weakness, which she has previously experienced from TIAs but had fully resolved prior to this episode. At time of interview, patient notes that her speech has returned largely back to baseline. She denied experiencing visual deficits, nausea, vomiting, abdominal pain, diarrhea. Denies fever, chills, Chest pain, shortness of breath. CT brain in the emergency room was unremarkable with CT angiogram of head and neck showing 60% stenosis of the left ICA. There was also 1.1 cm posterior left upper lobe pulmonary nodule concerning for neoplastic progression. The patient does report a prior history of lung cancer with recent relapse for which she has been following with Dr. Patel. Patient was told that she is not a candidate for most treatment modalities. Laboratory evaluation reveals WBC count of 10.5, hemoglobin 13.0, sodium 137, BUN 27, creatinine 0.75, glucose 138 with troponin less than 0.012. Of note, the patient was discussed with neurointensivist on-call by ER provider and patient was noted to not be a candidate for tenecteplase. Patient was admitted for further management of aphasia and left lower extremity weakness, rule out CVA. Vascular surgery consulted, unlikely to be a candidate for any intervention, carotid duplex ordered. Neurology consulted Patient was continued on aspirin 81 mg, atorvastatin 80 mg. Pertinent Imaging: No new imaging Subjective: Feels back to baseline Pertinent positives and negatives as discussed above, a complete review of systems was performed and all other systems are negative. Vitals Signs Reviewed. General: [nontoxic], [no distress], [appears at stated age] Derm: [warm], [dry] Head: [atraumatic], [normocephalic], [symmetric] Eyes: [EOMI], [no lid lag], [anicteric sclera] Mouth: [no lip lesion], [mucus membranes moist] Cardiovascular: [S1S2 reg], [no murmur] Lungs: [CTA bilateral], [no rhonchi, no rales] , [no accessory muscle use] Abdominal: [soft], [ nontender to palpation], [no guarding], [no appreciable organomegaly] Ext: [no gross muscle atrophy], [no edema], [no contractures] Neuro: [ CN II-XI grossly intact], [no focal neuro deficits], appears to have chronic right-sided facial droop Psych: [Alert], [oriented], [appropriate affect] Data Reviewed Today: Pertinent Labs: Normal unremarkable CBC, sodium potassium normal, creatinine normal, blood glucose is well-controlled, LDL 53, TSH 1.3, A1c 6.6 Assessment and Plan: Expressive aphasia, resolved, rule out CVA Left lower extremity weakness, resolved Bilateral carotid artery stenosis -Vascular surgery consulted, carotid duplex ordered -Continue aspirin 81, atorvastatin 80 mg -Neurology consulted, appreciate recommendations -TTE ordered and pending -Continue telemetry -PT OT, [employer] -Continue neurochecks -Holding Eliquis until further recs from neurology Type II DM not on insulin -Accu-Cheks, SSI -Will proceed with blood pressure control starting 2 PM 08/18 with home ARB losartan 75 mg daily, Toprol-XL 100 mg twice daily COPD, not on home oxygen, not in exacerbation -Continue Trelegy Ellipta 100/62.5/25 Paroxysmal A-fib on Eliquis -Holding Eliquis -Continue home Toprol-XL 100 mg twice daily Reported recent UTI -Continue with Ceftin 1250 twice daily, still has some burning with urination DVT ppx: Lovenox Code status: Full code Anticipated discharge place: [facility] Anticipated discharge time: 08/19 Objective - Vital Signs Vital signs: Vital Signs Temp 98.4 F 08/18/24 09:35 Pulse 62 08/18/24 09:35 Resp 16 08/18/24 09:35 BP 194/87 08/18/24 09:35 Pulse Ox 100 08/18/24 09:35 FiO2 Intake & Output 08/17/24 08/18/24 08/18/24 18:59 06:59 18:59 Output Total 1000 Balance -1000 Weight 52.163 kg Output: Urine 1000 - Labs CBC & Chem 7: 08/18/24 07:20 08/18/24 07:20 Labs: Abnormal Lab Results - Last 24 Hours (Table) 08/17/24 08/17/24 08/17/24 Range/Units 19:10 19:27 19:41 MCHC (31.0-37.0) g/dL Neutrophils # 8.1 H (1.3-7.7) k/uL Carbon Dioxide (22-30) mmol/L BUN (7-17) mg/dL Glucose (74-99) mg/dL POC Glucose (mg/dL) 119 H 148 H (70-110) mg/dL Hemoglobin A1c (<=6.0) % AST (14-36) U/L Total Protein (6.3-8.2) g/dL HDL Cholesterol (40.00-60.00) mg/dL 08/17/24 08/18/24 08/18/24 Range/Units 19:41 07:20 07:20 MCHC 30.9 L (31.0-37.0) g/dL Neutrophils # (1.3-7.7) k/uL Carbon Dioxide (22-30) mmol/L BUN 27 H (7-17) mg/dL Glucose 138 H (74-99) mg/dL POC Glucose (mg/dL) (70-110) mg/dL Hemoglobin A1c (<=6.0) % AST 38 H (14-36) U/L Total Protein (6.3-8.2) g/dL HDL Cholesterol 64.30 H (40.00-60.00) mg/dL 08/18/24 08/18/24 Range/Units 07:20 07:20 MCHC (31.0-37.0) g/dL Neutrophils # (1.3-7.7) k/uL Carbon Dioxide 32 H (22-30) mmol/L BUN (7-17) mg/dL Glucose 140 H (74-99) mg/dL POC Glucose (mg/dL) (70-110) mg/dL Hemoglobin A1c 6.6 H (<=6.0) % AST (14-36) U/L Total Protein 6.1 L (6.3-8.2) g/dL HDL Cholesterol (40.00-60.00) mg/dL
--- NOTE | 2024-08-18 14:00 | P.CNNES ---
History of Present Illness Consult date: 08/18/24 Requesting physician: Lexus Sepulveda Reason for Consult: tia History of Present Illness: This is a 84 year-old woman with recurrent word finding difficulty, TIA A-fib on eliquis who presents again for word finding difficulty. She stated she knew what she wanted to say but could not get it out. The episode started at 2pm and feels continues to have it till now but not as bad. She also feels left leg is weak today that fluctuates. She is compliant taking Eliquis at home. She is also compliant taking ASAA. She has left carotid stenosis 60% and as outpatient she stated her PCP notified her it was not significant. Patient is also on ASA 81mg daily at home. Patient is known to our neurology team and had multiple episode of word finding, confusion and had extensive work-up in past I was concerned about seizure. Cannot obtain MRI since pacemaker. Last time I started her on Vimpat. EEG limited was negative for seizure. Please refer to our notes for further details. Some of the work-up during this hospital visit consisted of: Lipid panel: TG 104, Cholestrol 139, LDL 53 and HDL 64 TSH: 1.38 HbA1c: 6.6 CT head: No acute intracranial hemorrhage, midline shift. No change from most recent prior CT. I personally reviewed CT and agree with report. CTA head and neck: Stable moderate to severe focal plaque proximal left ICA causes hemodynamically significant stenosis measuring 60%. There is enlarging 1.1cm left upper lob pulmonary nodule worrisome for neoplastic progcess. Review of Systems As per HPI. Past Medical History Past Medical History: Atrial Fibrillation, Cancer, Heart Failure, COPD, CVA/TIA, Diabetes Mellitus, Deep Vein Thrombosis (DVT), Fibromyalgia, GERD/Reflux, Hyperlipidemia, Hypertension, Osteoarthritis (OA), Pneumonia, Sleep Apnea/CPAP/BIPAP, Vascular Disorder Additional Past Medical History / Comment(s): back pain , lung cancer-radiation opnly, HOME 02 2 LITERS N/C, BLOOD CLOT AFTER SX, CVA LT SIDE AFFECTED SINCE RESOLVED, HIATAL HERNIA. SHINGLES 30 YEARS AGO, DOES'NT USE CPAP MACHINE.in past for short period of time took oral meds for dm-then taken off meds-pt stated not considered diabetic now but occ will check bs., macular degeneration.past broken rt leg and lt wrist. Raynauds. Pt currently has 3 fractured ribs on the right that she has "had for years and will not heal". History of Any Multi-Drug Resistant Organisms: MRSA Date of last positivie culture/infection: 09/25/16 MDRO Source:: BRONCH WASH Past Surgical History: Cholecystectomy, Heart Catheterization With Stent, Orthopedic Surgery Additional Past Surgical History / Comment(s): rt leg repaired after break-has pins, lt wrist-plate and screws. lung bx, stents tung groins. Past Anesthesia/Blood Transfusion Reactions: Family History of Problems w/ Anesthesia Additional Past Anesthesia/Blood Transfusion Reaction / Comment(s): daughter has diff waking after aa Date of Last Stent Placement:: unk Type of Cardiac Device: Permanent Pacemaker Device Placement Date:: 09/25/20 Past Psychological History: Anxiety Smoking Status: Former smoker Past Alcohol Use History: Occasional Past Drug Use History: None Reported - Past Family History Father Family Medical History: Congestive Heart Failure (CHF), COPD Additional Family Medical History / Comment(s): emphysema Mother Family Medical History: Cancer Medications and Allergies Home Medications Medication Instructions Recorded Confirmed Type Fluticasone/Umeclidin/Vilanter 1 puff INHALATION RT-DAILY 04/19/20 08/18/24 History [Trelegy Ellipta 100-62.5-25] Pantoprazole Sodium [Protonix] 20 mg PO DAILY 12/01/22 08/18/24 History Apixaban [Eliquis] 5 mg PO BID 04/07/24 08/18/24 History Mirtazapine [Remeron] 15 mg PO HS 04/07/24 08/18/24 History Atorvastatin [Lipitor] 80 mg PO HS 06/21/24 08/18/24 History predniSONE 5 mg PO DAILY 06/21/24 08/18/24 History Aspirin 81 mg PO DAILY 30 Days #30 tab 06/24/24 08/18/24 Rx traMADol HCL 50 mg PO Q6H PRN 3 Days #12 tab 06/24/24 08/18/24 Rx ALPRAZolam [Xanax] 0.25 mg PO TID PRN 08/18/24 08/18/24 History Cefuroxime [Ceftin] 250 mg PO BID 08/18/24 08/18/24 History Fluconazole [Diflucan] 100 mg PO DIRECTED 08/18/24 08/18/24 History Irbesartan [Avapro] 75 mg PO DAILY 08/18/24 08/18/24 History Metoprolol Succinate (ER) [Toprol 100 mg PO BID 08/18/24 08/18/24 History Xl] Midodrine [ProAmatine] 10 mg PO BID@0900,1400 08/18/24 08/18/24 History Allergies Allergy/AdvReac Type Severity Reaction Status Date / Time No Known Allergies Allergy Verified 08/18/24 08:34 Physical Examination - Vital Signs Vital Signs: Vital Signs Temp Pulse Pulse Resp BP BP Pulse Ox 08/18/24 09:35 98.4 F 62 16 194/87 100 08/18/24 08:00 20 08/18/24 07:27 74 18 166/72 96 08/18/24 07:00 98.4 F 61 16 166/72 08/18/24 06:33 60 12 195/74 97 08/18/24 03:00 61 18 157/63 98 08/18/24 00:55 80 22 185/88 99 08/17/24 22:42 63 16 159/58 99 08/17/24 20:58 57 L 18 177/74 100 08/17/24 19:57 60 18 180/114 08/17/24 19:46 59 L 18 187/77 100 08/17/24 19:31 60 18 200/83 100 08/17/24 19:09 98.2 F 80 20 196/88 99 Intake and Output 08/17/24 08/18/24 08/18/24 22:59 06:59 14:59 Output Total 1000 Balance -1000 Output: Urine 1000 Other: Weight 52.163 kg GENERAL: The patient is lying in bed and is not in acute distress. NEUROLOGICAL: Higher mental function: The patient is awake, alert, oriented to self, place and time. Patient is following commands. No aphasia and no neglect. Cranial nerves: The pupils are round, equal and reactive to light and accommodation. Visual eason are full to confrontation throughout. Extraocular movement is intact no nystagmus is noted. Facial sensation is normal to touch throughout. The facial strength is normal throughout. Hearing is moderate to severely decreased bilaterally to hand rub. Tongue is midline and moved [id number] without any difficulty. No dysarthria is noted. Shoulder shrug is normal bilaterally. Motor: The strength is left lower extremity is 4+ to 5-. Otherwise 5 over 5 throughout. Normal tone and bulk. Cerebellum: Normal finger to nose heel to chin bilaterally. Sensation: Sensation is normal to touch throughout. Plantars are downgoing bilaterally. Results - Laboratory Findings CBC and BMP: 08/18/24 07:20 08/18/24 07:20 Abnormal Lab Findings: Abnormal Labs 08/17/24 08/17/24 08/17/24 19:10 19: 19:41 MCHC Neutrophils # 8.1 H Carbon Dioxide BUN Glucose POC Glucose (mg/dL) 119 H 148 H Hemoglobin A1c AST Total Protein HDL Cholesterol 08/17/24 08/18/24 08/18/24 19:41 07:20 07:20 MCHC 30.9 L Neutrophils # Carbon Dioxide BUN 27 H Glucose 138 H POC Glucose (mg/dL) Hemoglobin A1c AST 38 H Total Protein HDL Cholesterol 64.30 H 08/18/24 08/18/24 07:20 07:20 MCHC Neutrophils # Carbon Dioxide 32 H BUN Glucose 140 H POC Glucose (mg/dL) Hemoglobin A1c 6.6 H AST Total Protein 6.1 L HDL Cholesterol Assessment and Plan Assessment: This is an 84-year-old woman who presented emergency department because of word-finding difficulty. She had has underlying history of atrial fibrillation and she is on Eliquis. She has left ICA stenosis of 60% Transient expressive aphasia with left leg weakness. Likely TIA. Expressive aphasia is probable due to left ICA stenosis 60%. Left ICA stenosis of 60% Recurrent confusion with word finding difficulties (had 4 prior episodes) and on prior visit I was concerned about possible seizure. Cannot rule out TIA History of seizures in the past and the daughter thinks her seizures was last 12 years ago and she used to have blank stare confused and was never on any antiseizure medication: She refused she had workup for the seizures in the past. History of atrial fibrillation on Eliquis Presyncope status post pacemaker. It seems the patient has positive orthostatic on 06/20/2024 Left upper lobe pulmonary nodule on CTA suspicious for neoplastic. History of TIA History of DVT History of diabetes mellitus History of fibromyalgia Hypertension Hyperlipidemia History of sleep apnea on BiPAP Chronic back pain history of lung cancer post radiation Plan: Cannot obtain the MRI since has a pacemaker therefore we will get a repeat CT of the head by tomorrow morning In the past she was started on VImpat for concern for seizure but it does not seems she is not longer on medication. If she continues to have fluctuation of symptoms then will pursue with EEG. She is on ASA 81mg daily and was given Plavix 75mg once. From neurological perspective can resume her home Eliquis. Is on Lipitor 80mg qhs. Continue neurochecks Cardiac monitoring PT OTand AUDOGRAPH OPERATOR are consulted. Vascular surgery is on board and they ordered carotid duplex. Will defer the rest of medical management to primary and other specialist. Thank you for the consultation. Time with Patient: Greater than 30
--- NOTE | 2024-08-18 14:02 | US ---
EXAMINATION TYPE: US carotid duplex BILAT DATE OF EXAM: 08/18/2024 COMPARISON: CTA head and neck 08/17/2024, 06/21/2024, 06/27/2023, carotid ultrasound 06/29/2023, 12/17/2022 CLINICAL INDICATION: Female, 84 years old with history of Carotid stenosis, tia; Additional History: .... TECHNIQUE: Grayscale, color Doppler and spectral Doppler evaluation of the bilateral carotid systems and vertebral arteries. Indirect Doppler criteria was utilized. FINDINGS: EXAM MEASUREMENTS: RIGHT: Peak Systolic Velocity (PSV) cm/sec ----- Right CCA: 47 ----- Right ICA: 79 ----- Right ECA: 71 ICA/CCA ratio: 1.7 RIGHT: End Diastole cm/sec ----- Right CCA: 8 ----- Right ICA: 14 ----- Right ECA: 0 LEFT: Peak Systolic Velocity (PSV) cm/sec ----- Left CCA: 68 ----- Left ICA: 197 ----- Left ECA: 161 ICA/CCA ratio: 2.9 LEFT: End Diastole cm/sec ----- Left CCA: 13 ----- Left ICA: 30 ----- Left ECA: 0 VERTEBRALS (direction of flow): Right Vertebral: Antegrade Left Vertebral: Antegrade Rhythm: Normal FORENSIC MATERIALS ENGINEER NOTES: Bilateral carotid plaque seen, no intimal thickening seen, elevated velocities see n within in the left ICA and ECA Color Doppler imaging shows patency with blood flow throughout the carotid artery. Spectral waveforms are within normal limits. IMPRESSION: Bilateral moderate carotid plaque. No hemodynamically significant stenosis on the right. Approximatel y 50-69% stenosis of the left carotid bifurcation extending into the left proximal internal carotid a rtery. Criteria for Assigning % of Stenosis / Diameter reduction (Estimation based on the indirect measurements of the internal carotid artery velocities (ICA PSV). 1. Normal (no stenosis)=ICA PSV < 125 cm/s: ratio < 2.0: ICA EDV<40 cm/s. 2. Less than 50% stenosis=ICA PSV < 125 cm/s: ratio < 2.0: ICA EDV<40 cm/s. 3. 50 to 69% stenosis=ICA PSV of 125 to 230 cm/s: ration 2.0 ? 4.0: ICA EDV 40-100 cm/s. 4. Greater than 70% stenosis to near occlusion= ICA PSV > 230 cm/s: ratio > 4.0: ICA EDV > 100 cm/s. 5. Near occlusion= ICA PSV velocities may be low or undetectable: variable ratio and ICA EDV. 6. Total occlusion=unable to detect flow. [facility], , 08/18/2024 2:00 PM
[2024-08-18] MEDS: ALPRAZolam 0.25 MG TAB PO PRN (14:28)
[2024-08-18 19:56] LABS: Glucose,Whole Blood 187 mg/dL (70-110)
[2024-08-18] MEDS: ATORVASTATIN 80 MG TAB PO SCH (20:34)
[2024-08-18] MEDS: CEFDINIR 300 MG CAP PO SCH (20:34)
[2024-08-18] MEDS: METOPROLOL SUCCINATE (ER) 100 MG TAB.ER.24H PO SCH (20:34)
[2024-08-18] MEDS: MIRTAZAPINE 15 MG TAB PO SCH (20:34)
[2024-08-18] MEDS: APIXABAN 5 MG TAB PO SCH (21:20)
[2024-08-19 06:16] LABS: Glucose,Whole Blood 136 mg/dL (70-110)
[2024-08-19] MEDS: SYMBICORT 160-4.5 MCG INHALER INHALATION SCH (08:06)
--- NOTE | 2024-08-19 09:45 | CT ---
EXAMINATION TYPE: CT brain wo con CT DLP: 1145.4 mGycm, Automated exposure control for dose reduction was used. DATE OF EXAM: 08/19/2024 9:37 AM COMPARISON: CT brain 08/17/2024, 06/23/2024, 06/21/2024, 06/27/2023 CLINICAL INDICATION:Female, 84 years old with history of recurrent speech difficulty, Recurrent speec h difficulties TECHNIQUE: Brain: Multiple axial CT images of the brain were obtained without IV contrast. . Coronal and sagitta l reformats reviewed. FINDINGS: Brain: Extra-axial spaces: No abnormal extra-axial fluid collections. Ventricular system: Within normal limits Cerebral parenchyma: Cerebral atrophy. No acute intraparenchymal hemorrhage or mass effect. The lynn -white junction is well differentiated. Confluent hypoattenuating areas are seen within the periventr icular and subcortical white matter. Remote lacunar injury within the right lateral basal ganglia. Cerebellum: Unremarkable. Mass effect: No evidence of midline shift. Intracranial vasculature: Atherosclerotic calcifications of the intracranial vessels. Soft tissues: Normal. Calvarium/osseous structures: No depressed skull fracture. Paranasal sinuses and mastoid air cells: The mastoid air cells are clear. Moderate mucosal thickening of the left sphenoid sinus redemonstrated. Minimal mucosal thickening in the anterior right ethmoid sinus. Nasal septal deviation to the right. Visualized orbits: Bilateral aphakia IMPRESSION: 1. No acute intracranial process. 2. Remote lacunar injuries along with advanced nonspecific white matter changes likely secondary to c hronic microangiopathy. [facility], , 08/19/2024 9:42 AM
[2024-08-19] MEDS: predniSONE 5 MG TAB PO SCH (10:56)
[2024-08-19] MEDS: LOSARTAN 25 MG TAB PO SCH (10:56)
[2024-08-19 11:22] LABS: Glucose,Whole Blood 171 mg/dL (70-110)
[2024-08-19] MEDS: LACOSAMIDE 50 MG TABLET PO SCH (12:27)
--- NOTE | 2024-08-19 13:56 | P.PN ---
Subjective Progress Note Date: 08/19/24 I am following-up with patient and patient feels she is doing better today compared to yesterday. No further weakness. Her speech is improved. She stated she followed-up with neurologist as outpatient and think person in [place], [place] and was notified her frequency of antiseizure medication was once day and will not provide her 24 hour coverage and patient is not taking medication any longer. I have seen her in past and on her prior admission, I placed her on Vimpat 50mg bid and not once daily. Objective - Vital Signs Vital signs: Vital Signs Temp 98.2 F 08/19/24 11:32 Pulse 61 08/19/24 11:32 Resp 18 08/19/24 11:32 BP 168/93 08/19/24 11:32 Pulse Ox 96 08/19/24 11:32 FiO2 Intake & Output 08/18/24 08/19/24 08/19/24 18:59 06:59 18:59 Intake Total 118 Output Total 1350 Balance -1350 118 Weight 52.163 kg 50.9 kg Intake: Oral 118 Output: Urine 1350 Other: Voiding Method Toilet Toilet # Voids 1 - Exam GENERAL: The patient is lying in bed and is not in acute distress. NEUROLOGICAL: Higher mental function: The patient is awake, alert, oriented to self, place and time. Patient is following commands. No aphasia and no neglect. Cranial nerves: The pupils are round, equal and reactive to light and acc ommodation. Visual eason are full to confrontation throughout. Extraocular movement is intact no nystagmus is noted. Facial sensation is normal to touch throughout. The facial strength is normal throughout. Hearing is moderate to severely decreased bilaterally to hand rub. Tongue is midline and moved [id number] without any difficulty. No dysarthria is noted. Shoulder shrug is normal bilaterally. Motor: The strength is 5 over 5 throughout. Normal tone and bulk. Cerebellum: Normal finger to nose heel to chin bilaterally. Sensation: Sensation is normal to touch throughout. Plantars are downgoing bilaterally. Some of the work-up during this hospital visit consisted of: Lipid panel: TG 104, Cholestrol 139, LDL 53 and HDL 64 TSH: 1.38 HbA1c: 6.6 CT head: No acute intracranial hemorrhage, midline shift. No change from most recent prior CT. I personally reviewed CT and agree with report. CTA head and neck: Stable moderate to severe focal plaque proximal left ICA causes hemodynamically significant stenosis measuring 60%. There is enlarging 1.1cm left upper lob pulmonary nodule worrisome for neoplastic progcess. Carotid duplex is reported as bilateral moderate carotid plaque. No hemodynamically significant stenosis on the right. Approximately 50-69 stenosis on the left extending to the left proximal internal carotid artery Repeat CT of the head is reported as no acute intracranial process. Remote lacunar injury along the advanced nonspecific white matter changes likely secondary due to chronic microangiopathy - Labs CBC & Chem 7: 08/18/24 07:20 08/18/24 07:20 Labs: Abnormal Lab Results - Last 24 Hours (Table) 08/18/24 08/19/24 08/19/24 Range/Units 19:54 06:14 11:20 POC Glucose (mg/dL) 187 H 136 H 171 H (70-110) mg/dL Assessment and Plan Assessment: This is an 84-year-old woman who presented emergency department because of word- finding difficulty. She had has underlying history of atrial fibrillation and she is on Eliquis. She has left ICA stenosis of 60% Transient expressive aphasia with left leg weakness. Likely TIA. Expressive aphasia is probable due to left ICA stenosis 60% on CTA but on carotid duplex 50-69% Left ICA stenosis of 60% on CTA Recurrent confusion with word finding difficulties (had 4 prior episodes) and on prior visit I was concerned about possible seizure especially with hx of seizure. Cannot rule out TIA History of seizures in the past and the daughter thinks her seizures was last 12 years ago and she used to have blank stare confused and was never on any antiseizure medication: She refused she had workup for the seizures in the past. History of atrial fibrillation on Eliquis Presyncope status post pacemaker. It seems the patient has positive orthostatic on 06/20/2024 Left upper lobe pulmonary nodule on CTA suspicious for neoplastic. History of TIA History of DVT History of diabetes mellitus History of fibromyalgia Hypertension Hyperlipidemia History of sleep apnea on BiPAP Chronic back pain history of lung cancer post radiation Plan: Cannot obtain the MRI since has a pacemaker therefore we will get a repeat CT of the head by tomorrow morning In the past she was started on VImpat for concern for seizure 50mg bid but per daughter patient was instrusted or thought it only once daily and followed-up with outpatient neurologist who felt frequency of once daily was low and so patient stopped medication. The daughter wants her to go back on Vimpat 50mg bid and understand it is twice medication. The daughter wants to pursue with routine EEG as inpatient. Patient has outpatient 1 hour EEG in our facility first week of August 2024. She is on ASA 81mg daily. She is resume on her home Eliquis 2.5mg bid. Is on Lipitor 80mg qhs. Continue neurochecks Cardiac monitoring PT OTand LINING MACHINE OPERATOR are consulted. Vascular surgery is on board. Will defer the rest of medical management to primary and other specialist. The plan is discussed with patient and her daughter Karen (via phone). Dr. Olivares will resume neurology service tomorrow A.M. Time with Patient: Less than 30
--- NOTE | 2024-08-19 15:53 | P.PN ---
Subjective Progress Note Date: 08/19/24 Hospital Course: Patient is a 84-year-old female with a PMH of A-fib on Eliquis, type II DM, CO PD, hypertension, hyperlipidemia, and history of TIA who presents to the emergency room with complaints of speech difficulties. The patient reports that she was in her usual state of health until 2 PM when she noticed that she was no longer able to " get words out". She reports having similar symptoms multiple times over the past year but that they normally would resolve quickly. At time of onset of her symptoms, she checked her blood pressure and noticed that it was very high with systolics as high as 200s. She also reported feeling headache with "weak eyes". Also reported noticing new left lower extremity weakness, which she has previously experienced from TIAs but had fully resolved prior to this episode. At time of interview, patient notes that her speech has returned largely back to baseline. She denied experiencing visual deficits, nausea, vomiting, abdominal pain, diarrhea. Denies fever, chills, Chest pain, shortness of breath. CT brain in the emergency room was unremarkable with CT angiogram of head and neck showing 60% stenosis of the left ICA. There was also 1.1 cm posterior left upper lobe pulmonary nodule concerning for neoplastic progression. The patient does report a prior history of lung cancer with recent relapse for which she has been following with Dr. Patel. Patient was told that she is not a candidate for most treatment modalities. Laboratory evaluation reveals WBC count of 10.5, hemoglobin 13.0, sodium 137, BUN 27, creatinine 0.75, glucose 138 with troponin less than 0.012. Of note, the patient was discussed with neurointensivist on-call by ER provider and patient was noted to not be a candidate for tenecteplase. Patient was admitted for further management of aphasia and left lower extremity weakness, rule out CVA. Vascular surgery consulted, unlikely to be a candidate for any intervention, carotid duplex ordered. Neurology consulted Patient was continued on aspirin 81 mg, atorvastatin 80 mg.MRI could not be performed due to pacemaker, repeat CT head showed no acute abnormalities, remote lacunar injuries along with advanced nonspecific white matter changes likely secondary to chronic microangiopathy noted. Eliquis resumed at decreased dose of 2.5 based on patient's age and weight, discussed with pharmacy. Carotid duplex showed bilateral moderate carotid plaque, no hemodynamically significant stenosis in the right, approximately 50 to 69% stenosis of the left carotid bifurcation extending into the left proximal internal carotid artery EEG pending Per neurology, patient to be resumed on Vimpat 50 mg twice daily, appears that she stopped taking her Vimpat as per her outpatient neurologist the dose was not high enough Pertinent Imaging: CT head and carotid duplex Subjective: Feels back to baseline Pertinent positives and negatives as discussed above, a complete review of systems was performed and all other systems are negative. Vitals Signs Reviewed. General: [nontoxic], [no distress], [appears at stated age] Derm: [warm], [dry] Head: [atraumatic], [normocephalic], [symmetric] Eyes: [EOMI], [no lid lag], [anicteric sclera] Mouth: [no lip lesion], [mucus membranes moist] Cardiovascular: [S1S2 reg], [no murmur] Lungs: [CTA bilateral], [no rhonchi, no rales] , [no accessory muscle use] Abdominal: [soft], [ nontender to palpation], [no guarding], [no appreciable organomegaly] Ext: [no gross muscle atrophy], [no edema], [no contractures] Neuro: [ CN II-XI grossly intact], [no focal neuro deficits], appears to have chronic right-sided facial droop Psych: [Alert], [oriented], [appropriate affect] Data Reviewed Today: Pertinent Labs: Blood glucose is controlled Assessment and Plan: Expressive aphasia, resolved, rule out CVA Left lower extremity weakness, resolved Bilateral carotid artery stenosis -Neurology and vascular surgery following, appreciated, -CT head showed no acute abnormalities, remote lacunar injuries along with advanced nonspecific white matter changes likely secondary to chronic microangiopathy noted. Eliquis resumed at decreased dose of 2.5 based on patient's age and weight, discussed with pharmacy. Carotid duplex showed bilateral moderate carotid plaque, no hemodynamically significant stenosis in the right, approximately 50 to 69% stenosis of the left carotid bifurcation extending into the left proximal internal carotid artery -EEG pending -Per neurology, patient to be resumed on Vimpat 50 mg twice daily, appears that she stopped taking her Vimpat as per her outpatient neurologist the dose was not high enough -Continue telemetry -PT OT, REIMBURSEMENT CONSULTANT -Continue neurochecks -Holding Eliquis until further recs from -Accu-Cheks, SSI -Will proceed with blood pressure control starting 2 PM 08/18 with home ARB losartan 75 mg daily, Toprol-XL 100 mg twice daily COPD, not on home oxygen, not in exacerbation -Continue Trelegy Ellipta 100/62.5 Paroxysmal A-fib on Eliquis -Eliquis resumed to decrease dose to 0.5 based on patient's age and weight -Continue home Toprol-XL 100 mg twice daily Reported recent UTI -Continue with Ceftin 1250 twice daily, still has some burning with urination DVT ppx: Lovenox Code status: Full code Anticipated discharge place: [facility] Anticipated discharge time: 08/20 Objective - Vital Signs Vital signs: Vital Signs Temp 98.2 F 08/19/24 11:32 Pulse 61 08/19/24 11:32 Resp 18 08/19/24 11:32 BP 168/93 08/19/24 11:32 Pulse Ox 96 08/19/24 11:32 FiO2 Intake & Output 08/18/24 08/19/24 08/19/24 18:59 06:59 18:59 Intake Total 118 Output Total 1350 Balance -1350 118 Weight 52.163 kg 50.9 kg Intake: Oral 118 Output: Urine 1350 Other: Voiding Method Toilet Toilet # Voids 1 - Labs CBC & Chem 7: 08/18/24 07:20 08/18/24 07:20 Labs: Abnormal Lab Results - Last 24 Hours (Table) 08/18/24 08/19/24 08/19/24 Range/Units 19:54 06:14 11:20 POC Glucose (mg/dL) 187 H 136 H 171 H (70-110) mg/dL
[2024-08-19 16:29] LABS: Glucose,Whole Blood 200 mg/dL (70-110)
--- NOTE | 2024-08-19 20:10 | P.PN ---
Subjective Progress Note Date: 08/19/24 Patient seen and examined. No complaints. No significant changes in neurologic status. Objective - Vital Signs Vital signs: Vital Signs Temp 98.5 F 08/19/24 19:57 Pulse 65 08/19/24 19:57 Resp 18 08/19/24 19:57 BP 156/71 08/19/24 19:57 Pulse Ox 99 08/19/24 19:57 FiO2 Intake & Output 08/19/24 08/19/24 08/20/24 06:59 18:59 06:59 Intake Total 236 Balance 236 Weight 50.9 kg Intake: Oral 236 Other: Voiding Method Toilet Toilet # Voids 3 - Exam General Is a pleasant cooperative mildly confused female in no acute distress. On oxygen resting comfortably. 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 Will increase from aspirin to Plavix, continue with low- dose Eliquis for her A-fib. Continue to monitor. If she is still symptomatic on incision, may consider intervention however patient would likely benefit best from continue conservative measures. She seemingly understands this conversation however did have some questions of her mental status acumen earlier today.
[2024-08-19 20:13] LABS: Glucose,Whole Blood 159 mg/dL (70-110)
[2024-08-19] MEDS: APIXABAN 2.5 MG TABLET PO SCH (20:48)
[2024-08-20 06:03] LABS: Glucose,Whole Blood 159 mg/dL (70-110)
[2024-08-20 08:47] VITALS: BP 168/73; PULSE 71; RESP 14; TEMP 98.1
[2024-08-20] MEDS: CLOPIDOGREL 75 MG TAB PO SCH (08:50)
--- NOTE | 2024-08-20 10:23 | P.DS ---
Providers Date of admission: 08/17/24 21:46 Expected date of discharge: 08/20/24 Attending physician: Collin Perez MD Consults: 08/17/24 21:47 Consult Physician Routine Consulting Provider: Drew Pino Consult Reason/Comments: TIA Do you want consulting provider notified?: Yes, Notify in am 08/17/24 22:41 Consult Physician Routine Consulting Provider: Lux Erickson Consult Reason/Comments: left ICA stenosis Do you want consulting provider notified?: Yes Primary care physician: Nohemi Estrada Hospital Course: Discharge Diagnosis: TIA with transient episode of expressive aphasia and left lower extremity weakness, resolved Carotid artery stenosis Type 2 diabetes mellitus with hemoglobin A1c of 6.6% Paroxysmal atrial fibrillation Hypertension Hyperlipidemia Recently diagnosed UTI, outpatient. Patient to complete Ceftin 250 mg twice daily as previously prescribed. Hospital Course: Patient is a 84-year-old female with a PMH of A-fib on Eliquis, type II DM, COPD, hypertension, hyperlipidemia, and history of TIA . She presented to the hospital on 08/17/2024 with complaints of speech difficulties. The patient reported that she was in her usual state of health until 2 PM when she noticed that she was no longer able to " get words out". She reported having similar symptoms multiple times over the past year but that they normally would resolve quickly. At time of onset of her symptoms, she checked her blood pressure and noticed that it was very high with systolics as high as 200s. She also reported feeling headache with "weak eyes". Also reported noticing new left lower extremity weakness, which she has previously experienced from TIAs.. Upon facility patient underwent evaluation in the emergency department. On arrival show blood pressure 196/88, heart rate 80, respiratory rate 20, temp 98.2 F, and SpO2 of 99% on room air. CT brain in the emergency room was unremarkable with CT angiogram of head and neck showing 60% stenosis of the left ICA. There was also 1.1 cm posterior left upper lobe pulmonary nodule concerning for ne oplastic progression. The patient does report a prior history of lung cancer with recent relapse for which she has been following with Dr. Patel. Patient was told that she is not a candidate for most treatment modalities. Laboratory evaluation revealed WBC count of 10.5, hemoglobin 13.0, platelet count of 192 sodium 137, BUN 27, creatinine 0.75, glucose 138 with troponin less than 0.012. Patient's symptoms fully resolved shortly after arrival and she was at baseline at time of admission.. She was admitted under our services with consultation to neurology and vascular surgery for evaluation. Neurology evaluated, patient underwent a repeat CT brain the morning of 08/19/2024 which revealed no acute intracranial process again showing remote lacunar injuries along with advanced nonspecific white matter changes likely secondary to chronic microangiography and EEG was completed, discussed results with Dr. Pino stating report is not yet available but EEG was negative for epileptiform activity but did recommend discharging patient home on Vimpat 50 mg twice daily and for her to follow-up outpatient with a neurologist. Vascular surgery evaluated stated that 8 days with leaning more towards conservative measures and patient to be discharged home on Plavix and to continue with low-dose Eliquis for her A-fib and they will continue to monitor, if patient's symptoms return they may consider intervention. Discussed with patient recommendations from neurology and vascular surgery and patient verbalized understanding. Patient being discharged home on Plavix and Vimpat as ordered. Patient also started on metformin 500 mg twice daily for hemoglobin A1c of 6.6%. Patient medically optimized for discharge and to follow-up outpatient with PCP in 1 to 2 days, neurologist in 2 weeks, and vascular surgeon in 1 week. Physical exam: Patient seen and examined at bedside. Vital signs reviewed and stable. General: Nontoxic, no distress and appears stated age. Derm: Skin warm and dry, normal coloration for ethnicity. Head: Atraumatic, normocephalic and symmetric. Eyes: EOM's intact, no lid lag, and anicteric sclera Mouth: no lip lesions, mucus membranes moist Cardiovascular: regular rate and rhythm with normal S1S2, no murmur, positive posterior tibial pulses bilaterally, and cap refill < 2 seconds. Lungs: Respirations even, regular, and unlabored on room air. Lungs CTA bilaterally, no rhonchi, no rales, no wheezing, and no accessory muscle usage. Abdominal: soft, nontender to palpation, no guarding, no appreciable organomeg jo-ann Ext: ROM intact. No gross muscle atrophy, no edema, no contractures Neuro: Speech clear, face symmetrical and CN II-XII grossly intact with no noted focal neuro deficits Psych: Alert and oriented to person, place, time, and situation. Appropriate and pleasant affect. A total of 36 minutes of time were spent preparing this complex discharge summary. Pt was discharged on 08/20/2024 at 10:13 AM Patient was seen independently by Nurse Practitioner. This document was prepared using [employer] dictation software. Please allow for errors in meeting coordinator while rare they do occur. Eduin Sparrow NP rendered care for this patient independently, reviewed the findings and plan as documented in the note above. I did not physically speak with or examine the patient on this date. Patient Condition at Discharge: Stable Plan - Discharge Summary Discharge Rx Participant: No New Discharge Prescriptions: New metFORMIN HCL [Glucophage] 500 mg PO BID 30 Days #60 tab Clopidogrel [Plavix] 75 mg PO DAILY 30 Days #30 tab Lacosamide [Vimpat] 50 mg PO BID 30 Days #60 tab Continue Fluticasone/Umeclidin/Vilanter [Trelegy Ellipta 100-62.5-25] 1 puff INHALATION RT-DAILY Apixaban [Eliquis] 5 mg PO BID Mirtazapine [Remeron] 15 mg PO HS Atorvastatin [Lipitor] 80 mg PO HS predniSONE 5 mg PO DAILY Irbesartan [Avapro] 75 mg PO DAILY ALPRAZolam [Xanax] 0.25 mg PO TID PRN PRN Reason: Anxiety Fluconazole [Diflucan] 100 mg PO DIRECTED Pantoprazole Sodium [Protonix] 20 mg PO DAILY traMADol HCL 50 mg PO Q6H PRN 3 Days #12 tab PRN Reason: Pain Midodrine [ProAmatine] 10 mg PO BID@0900,1400 Metoprolol Succinate (ER) [Toprol XL] 100 mg PO BID Cefuroxime [Ceftin] 250 mg PO BID Discontinued Aspirin 81 mg PO DAILY 30 Days #30 tab Discharge Medication List Fluticasone/Umeclidin/Vilanter [Trelegy Ellipta 100-62.5-25] 1 puff INHALATION RT-DAILY 04/19/20 [History] Pantoprazole Sodium [Protonix] 20 mg PO DAILY 12/01/22 [History] Apixaban [Eliquis] 5 mg PO BID 04/07/24 [History] Mirtazapine [Remeron] 15 mg PO HS 04/07/24 [History] Atorvastatin [Lipitor] 80 mg PO HS 06/21/24 [History] predniSONE 5 mg PO DAILY 06/21/24 [History] traMADol HCL 50 mg PO Q6H PRN 3 Days #12 tab 06/24/24 [Rx] ALPRAZolam [Xanax] 0.25 mg PO TID PRN 08/18/24 [History] Cefuroxime [Ceftin] 250 mg PO BID 08/18/24 [History] Fluconazole [Diflucan] 100 mg PO DIRECTED 08/18/24 [History] Irbesartan [Avapro] 75 mg PO DAILY 08/18/24 [History] Metoprolol Succinate (ER) [Toprol XL] 100 mg PO BID 08/18/24 [History] Midodrine [ProAmatine] 10 mg PO BID@0900,1400 08/18/24 [History] Clopidogrel [Plavix] 75 mg PO DAILY 30 Days #30 tab 08/20/24 [Rx] Lacosamide [Vimpat] 50 mg PO BID 30 Days #60 tab 08/20/24 [Rx] metFORMIN HCL [Glucophage] 500 mg PO BID 30 Days #60 tab 08/20/24 [Rx] Follow up Appointment(s)/Referral(s): Nohemi Estrada MD [Primary Care Provider] - 1-2 days (Patient to make appointment ) Gina Miller DO [STAFF PHYSICIAN] - 1 Week (Patient to make appointment ) Willow Oden MD [REFERRING] - 2 Weeks (Patient to make appointment ) Patient Instructions/Handouts: Lacosamide (By mouth), Transient Ischemic Attack (DC), Carotid Artery Disease (DC), Pulmonary Nodules (DC), Type 2 Diabetes in the Older Adult (DC) Activity/Diet/Wound Care/Special Instructions: Activity: As tolerated. Take breaks as needed. Diet: Heart healthy and carb consistent diet. Special Instructions: Take all of your medications as directed and remember to keep all of your doctor's appointments and follow-up as needed. CT scan also revealed a 1.1 cm posterior left upper lobe pulmonary nodule, recommend continued following with Dr. Patel outpatient for continued close monitoring/surveillance and discussion of treatment options. Your hemoglobin A1c was elevated at 6.6%. You are being discharged home on metformin 500 mg twice daily and a glucometer was provided to. Please check blood glucose levels daily and document findings and a daily log to bring with you to your next doctor's appointment. Follow up as scheduled for prolonged EEG next week. Thank you for allowing us to participate in your care, it was truly a pleasure having you for our patient!!! . Discharge Disposition: HOME SELF-CARE
--- NOTE | 2024-08-22 14:23 | EEG ---
ELECTROENCEPHALOGRAM REPORT CLINICAL HISTORY: This is an 84-year-old woman with recurrent speech difficulty, seizure, who presents to the emergency department because of speech difficulty. The EEG is obtained to evaluate for seizure and epileptiform discharges. RELEVANT MEDICATIONS: Xanax. EEG TYPE: This is a routine 21-channel EEG with video using the 10/20 electrode placement system. DESCRIPTION: Wakefulness is only obtained. During the awake state, the posterior-dominant rhythm consists of [id number] voltage of 7.5 to 8.5 Hz activity, alternating with diffuse nonrhythmic delta activity. There is no focal slowing. There is no physiological stage 2 sleep architecture. Interictal and ictal is none. ACTIVATION PROCEDURE: Photic stimulation did not evoke a posterior driving response. There is no abnormality during the photic stimulation. Hyperventilation is not performed. CLINICAL INTERPRETATION: This is an abnormal routine EEG during the awake state. The background slowing is suggestive of [id number] encephalopathy. Otherwise, there is no focal slowing, epileptiform discharge, or seizure on the EEG. Lack of epileptiform discharges does not rule out underlying epilepsy. Clinical correlation is recommended. MMODL / IJN: [id number] /
== END 2024-08-20 11:44 | disposition home or self-care (01) ==
LOC: EC 19:06 → 3SCARD 21:46
PROVIDERS: ADMIT Internal Medicine; ATTEND Internal Medicine
DX: I65.23 Occlusion and stenosis of bilateral carotid arteries (principal); I11.0 Hypertensive heart disease with heart failure; I50.9 Heart failure, unspecified; I48.0 Paroxysmal atrial fibrillation; N39.0 Urinary tract infection, site not specified; E11.9 Type 2 diabetes mellitus without complications; E78.5 Hyperlipidemia, unspecified; F41.9 Anxiety disorder, unspecified; G89.29 Other chronic pain; M54.9 Dorsalgia, unspecified; H35.30 Unspecified macular degeneration; I73.00 Raynaud's syndrome without gangrene; J44.9 Chronic obstructive pulmonary disease, unspecified; M79.7 Fibromyalgia; G47.30 Sleep apnea, unspecified; K21.9 Gastro-esophageal reflux disease without esophagitis; Z79.01 Long term (current) use of anticoagulants; Z79.02 Long term (current) use of antithrombotics/antiplatelets; Z79.82 Long term (current) use of aspirin; Z79.84 Long term (current) use of oral hypoglycemic drugs; Z79.899 Other long term (current) drug therapy; Z85.118 Personal history of other malignant neoplasm of bronchus and lung; Z86.718 Personal history of other venous thrombosis and embolism; Z86.73 Personal history of transient ischemic attack (TIA), and cerebral infarction without residual deficits; Z87.891 Personal history of nicotine dependence; Z95.0 Presence of cardiac pacemaker; Z92.3 Personal history of irradiation
CPT/HCPCS: 96361; 96372; 96374; 99291; 36415; 94640 ×3; 95816; 93005; 97116; 97162; 97535; 97165; 92523; 80061; 80053 ×2; 84443; 82550; 83735; 84484 ×2; 85025 ×2; 85610; 85730; 83036; 71046; 93880; 70496; 70450 ×2; 70498; G0378 ×4; J1650; J7512 ×2; Q9967; J1920

== ENCOUNTER 2024-08-23 13:57 | Inpatient (IN) | payer MEDICARE, OTHER ==
--- NOTE | 2024-08-23 14:20 | ED ---
Weakness HPI - General Chief complaint: Weakness Stated complaint: irreg bp Time Seen by Provider: 08/23/24 14:16 Source: patient, EMS, RN notes reviewed, old records reviewed Mode of arrival: EMS Limitations: no limitations - History of Present Illness Initial comments: This is an 84-year-old female she is presenting today for persistent weakness and abnormally elevated blood pressure. Patient is having some difficulty and confusion medications at home, she does live alone difficulty taking care of herself and recently out of a inpatient hospitalization. Concern for TIAs versus CVA with no significant known current deficits. Patient states she does not feel well she feels weak and her blood pressures been severely elevated today patient has long history of comorbid conditions MD Complaint: generalized weakness, lack of energy, difficulty walking -: days(s) Location: generalized Severity: moderate Severity scale (1-10): 7 Consistency: constant Improves with: none Worsens with: none Context: history of similar Associated Symptoms: confusion, headaches - Related Data Home Medications Medication Instructions Recorded Confirmed Fluticasone/Umeclidin/Vilanter 1 puff INHALATION RT-DAILY 04/19/20 08/23/24 [Trelegy Ellipta 100-62.5-25] Pantoprazole Sodium [Protonix] 20 mg PO DAILY 12/01/22 08/23/24 Apixaban [Eliquis] 5 mg PO BID 04/07/24 08/23/24 Mirtazapine [Remeron] 15 mg PO HS 04/07/24 08/23/24 Atorvastatin [Lipitor] 80 mg PO HS 06/21/24 08/23/24 predniSONE 5 mg PO DAILY 06/21/24 08/23/24 ALPRAZolam [Xanax] 0.25 mg PO TID PRN 08/18/24 08/23/24 Cefuroxime [Ceftin] 250 mg PO BID 08/18/24 08/23/24 Fluconazole [Diflucan] 100 mg PO DAILY 08/18/24 08/23/24 Irbesartan [Avapro] 75 mg PO DAILY 08/18/24 08/23/24 Metoprolol Succinate (ER) [Toprol 100 mg PO BID 08/18/24 08/23/24 XL] Furosemide [Lasix] 20 mg PO DAILY 08/23/24 08/23/24 Previous Rx's Medication Instructions Recorded traMADol HCL 50 mg PO Q6H PRN 3 Days #12 tab 06/24/24 Clopidogrel [Plavix] 75 mg PO DAILY 30 Days #30 tab 08/20/24 Lacosamide [Vimpat] 50 mg PO BID 30 Days #60 tab 08/20/24 metFORMIN HCL [Glucophage] 500 mg PO BID 30 Days #60 tab 08/20/24 Allergies Allergy/AdvReac Type Severity Reaction Status Date / Time No Known Allergies Allergy Verified 08/23/24 14:03 Review of Systems ROS Statement: Those systems with pertinent positive or pertinent negative responses have been documented in the HPI. ROS Other: All systems not noted in ROS Statement are negative. Past Medical History Past Medical History: Atrial Fibrillation, Cancer, Heart Failure, COPD, CVA/TIA, Diabetes Mellitus, Deep Vein Thrombosis (DVT), Fibromyalgia, GERD/Reflux, Hyperlipidemia, Hypertension, Osteoarthritis (OA), Pneumonia, Sleep Apnea/CPAP/BIPAP, Vascular Disorder Additional Past Medical History / Comment(s): back pain , lung cancer-radiation opnly, HOME 02 2 LITERS N/C, BLOOD CLOT AFTER SX, CVA LT SIDE AFFECTED SINCE RESOLVED, HIATAL HERNIA. SHINGLES 30 YEARS AGO, DOES'NT USE CPAP MACHINE.in past for short period of time took oral meds for dm-then taken off meds-pt stated not considered diabetic now but occ will check bs., macular degeneration.past broken rt leg and lt wrist. Raynauds. Pt currently has 3 fractured ribs on the right that she has "had for years and will not heal". History of Any Multi-Drug Resistant Organisms: MRSA Date of last positivie culture/infection: 09/25/16 MDRO Source:: BRONCH WASH Past Surgical History: Cholecystectomy, Heart Catheterization With Stent, Orthopedic Surgery Additional Past Surgical History / Comment(s): rt leg repaired after break-has pins, lt wrist-plate and screws. lung bx, stents tung groins. Past Anesthesia/Blood Transfusion Reactions: Family History of Problems w/ Anesthesia Additional Past Anesthesia/Blood Transfusion Reaction / Comment(s): daughter has diff waking after aa Date of Last Stent Placement:: unk Type of Cardiac Device: Permanent Pacemaker Device Placement Date:: 09/25/20 Past Psychological History: Anxiety Smoking Status: Former smoker Past Alcohol Use History: Occasional Past Drug Use History: None Reported - Past Family History Father Family Medical History: Congestive Heart Failure (CHF), COPD Additional Family Medical History / Comment(s): emphysema Mother Family Medical History: Cancer General Exam Limitations: no limitations General appearance: alert, in no apparent distress Head exam: Present: atraumatic, normocephalic, normal inspection Eye exam: Present: normal appearance, PERRL, EOMI. Absent: scleral icterus, conjunctival injection, periorbital swelling ENT exam: Present: normal exam, mucous membranes moist Neck exam: Present: normal inspection. Absent: tenderness, meningismus, lymphadenopathy Respiratory exam: Present: normal lung sounds bilaterally. Absent: respiratory distress, wheezes, rales, rhonchi, stridor Cardiovascular Exam: Present: regular rate, normal rhythm, normal heart sounds. Absent: systolic murmur, diastolic murmur, rubs, gallop, clicks GI/Abdominal exam: Present: soft, normal bowel sounds. Absent: distended, tenderness, guarding, rebound, rigid Extremities exam: Present: normal inspection, full ROM, normal capillary refill. Absent: tenderness, pedal edema, joint swelling, calf tenderness Back exam: Present: normal inspection Neurological exam: Present: alert, oriented X3, CN II-XII intact Psychiatric exam: Present: normal affect, normal mood Skin exam: Present: warm, dry, intact, normal color. Absent: rash Course Vital Signs 08/23/24 08/23/24 08/23/24 13:58 15:48 16:38 Temperature 97.3 F L Pulse Rate 71 75 70 Pulse Rate [ Pulse Oximetery ] Respiratory 20 20 20 Rate Blood Pressure 167/94 224/96 122/61 Blood Pressure [Left Arm] O2 Sat by Pulse 100 99 95 Oximetry 08/23/24 08/23/24 08/23/24 16:50 17:17 18:12 Temperature Pulse Rate 60 74 69 Pulse Rate [ Pulse Oximetery ] Respiratory 16 16 18 Rate Blood Pressure 122/64 134/58 135/72 Blood Pressure [Left Arm] O2 Sat by Pulse 98 98 97 Oximetry 08/23/24 08/23/24 08/23/24 19:57 21:09 21:24 Temperature 97.8 F Pulse Rate 60 68 Pulse Rate [ 77 Pulse Oximetery ] Respiratory 16 18 18 Rate Blood Pressure 164/76 151/74 Blood Pressure 176/66 [Left Arm] O2 Sat by Pulse 100 100 Oximetry - Reevaluation(s) Reevaluation #1: 08/23/24 15:54 Medical records reviewed recent inpatient hospitalization reviewed , Hypertension, concern for TIA Reevaluation #2: 08/23/24 15:54 Patient is no symptom change here in the ER Reevaluation #3: No change in symptoms here in the ER Reevaluation #4: Was pt. sent in by a medical professional or institution (VERONICA Bell, TUFTING SUPERVISOR, urgent care, hospital, or longterm...) When possible be specific @ -no Did you speak to anyone other than the patient for history (EMS, parent, family, police, friend...)? What history was obtained from this source @ -no Did you review nursing and triage notes (agree or disagree)? Why? @ -agree Are old charts reviewed (outside hosp., previous admission, EMS record, old EKG, old radiological studies, urgent care reports/EKG's, longterm records)? Report findings @ -yes Differential Diagnosis (chest pain, altered mental status, abdominal pain women, abdominal pain men, vaginal bleeding, weakness, fever, dyspnea, syncope, headache, dizziness, GI bleed, back pain, seizure, CVA, palpatations, mental health, musculoskeletal)? @ -prior EKG interpreted by me (3pts min.). @ -yes X-rays interpreted by me (1pt min.). @ -yes negative for acute disease CT interpreted by me (1pt min.). @ -no U/S interpreted by me (1pt. min.). @ -no What testing was considered but not performed or refused? (CT, X-rays, U/S, labs)? Why? @ -none What meds were considered but not given or refused? Why? @ -none Did you discuss the management of the patient with other professionals (professionals i.e. VERONICA Bell, TUFTING SUPERVISOR, lab, RT, psych nurse, social worker masters, power superintendent, teacher, recruitment officer, bilingual case manager)? Give summary @ -no Was smoking cessation discussed for >3mins.? @ -no Was critical care preformed (if so, how long)? @ -no Were there social determinants of health that impacted care today? How? (Homelessness, low income, unemployed, alcoholism, drug addiction, transportation, low edu. Level, literacy, decrease access to med. care, residential, rehab)? @ -none Was there de-escalation of care discussed even if they declined (Discuss DNR or withdrawal of care, Hospice)? DNR status @ -no What co-morbidities impacted this encounter? (DM, HTN, Smoking, COPD, CAD, Cancer, CVA, ARF, Chemo, Hep., AIDS, mental health diagnosis, sleep apnea, morbid obesity)? @ -none Was patient admitted / discharged? Hospital course, mention meds given and route, prescriptions, significant lab abnormalities, going to OR and other pertinent info. @ - 84 female for weakness the patient has weakness here in the ER suspect urinary tract infection dehydration will need PT OT Admitted Undiagnosed new problem with uncertain prognosis? @ -no Drug Therapy requiring intensive monitoring for toxicity (Heparin, Nitro, Insulin, Cardizem)? @ -no Were any procedures done? @ -no Diagnosis/symptom? @ -Weakness Acute, or Chronic, or Acute on Chronic? @ -Acute Uncomplicated (without systemic symptoms) or Complicated (systemic symptoms)? @ -Complicated Side effects of treatment? @ -no Exacerbation, Progression, or Severe Exacerbation? @ -exacerbation Poses a threat to life or bodily function? How? (Chest pain, USA, VT, pneumonia, PE, COPD, DKA, ARF, appy, cholecystitis, CVA, Diverticulitis, Homicidal, Suicidal, threat to staff... and all critical care pts) @ -yes extremes of age Reevaluation #5: Differential Weakness: Hypoglycemia, shock, sepsis, hyponatremia, anemia, infection, VT, ETOH, adverse medicine reaction, overdose, stroke, this is not meant to be an all-inclusive list. - Consultations Consultation #1: Spoke with many physicians who agreed to admit this patient EKG Findings - EKG Comments: EKG Findings:: EKG is 59 PA 215 QRS 82 QTc 409 - EKG Results: EKG: interpreted by ERMD Medical Decision Making - Medical Decision Making 84 female for weakness the patient has weakness here in the ER suspect urinary tract infection dehydration will need PT OT - Lab Data Result diagrams: 08/28/24 02:46 08/28/24 06:55 Lab Results 08/23/24 08/23/24 08/23/24 Range/Units 14:35 14:35 14:35 WBC 16.2 H (3.8-10.6) k/uL RBC 4.93 (3.80-5.40) m/uL Hgb 14.5 (11.4-16.0) gm/dL Hct 46.0 (34.0-46.0) % MCV 93.3 (80.0-100.0) fL MCH 29.5 (25.0-35.0) pg MCHC 31.6 (31.0-37.0) g/dL RDW 13.9 (11.5-15.5) % Plt Count 234 (150-450) k/uL MPV 9.0 Neutrophils % 82 % Lymphocytes % 13 % Monocytes % 4 % Eosinophils % 1 % Basophils % 0 % Neutrophils # 13.2 H (1.3-7.7) k/uL Lymphocytes # 2.1 (1.0-4.8) k/uL Monocytes # 0.6 (0-1.0) k/uL Eosinophils # 0.2 (0-0.7) k/uL Basophils # 0.1 (0-0.2) k/uL PT 12.0 (10.0-12.5) sec INR 1.1 (<1.2) APTT 23.6 (22.0-30.0) sec Sodium 136 L (137-145) mmol/L Potassium 4.6 (3.5-5.1) mmol/L Chloride 93 L (98-107) mmol/L Carbon Dioxide 34 H (22-30) mmol/L Anion Gap 9 mmol/L BUN 36 H (7-17) mg/dL Creatinine 1.30 H (0.52-1.04) mg/dL Est GFR (CKD-EPI)AfAm 43 (>60 ml/min/1.73 sqM) Est GFR (CKD-EPI)NonAf 38 (>60 ml/min/1.73 sqM) Glucose 228 H (74-99) mg/dL Plasma Lactic Acid Imer (0.7-2.0) mmol/L Calcium 10.1 (8.4-10.2) mg/dL Phosphorus 4.5 (2.5-4.5) mg/dL Magnesium 1.7 (1.6-2.3) mg/dL Total Bilirubin 0.8 (0.2-1.3) mg/dL AST 29 (14-36) U/L ALT 22 (4-34) U/L Alkaline Phosphatase 69 (38-126) U/L Troponin I (0.000-0.034) ng/mL Total Protein 7.3 (6.3-8.2) g/dL Albumin 4.6 (3.5-5.0) g/dL TSH 5.220 H (0.465-4.680) mIU/L Free T4 (0.78-2.19) ng/dL 08/23/24 08/23/24 08/23/24 Range/Units 14:35 14:35 16:30 WBC (3.8-10.6) k/uL RBC (3.80-5.40) m/uL Hgb (11.4-16.0) gm/dL Hct (34.0-46.0) % MCV (80.0-100.0) fL MCH (25.0-35.0) pg MCHC (31.0-37.0) g/dL RDW (11.5-15.5) % Plt Count (150-450) k/uL MPV Neutrophils % % Lymphocytes % % Monocytes % % Eosinophils % % Basophils % % Neutrophils # (1.3-7.7) k/uL Lymphocytes # (1.0-4.8) k/uL Monocytes # (0-1.0) k/uL Eosinophils # (0-0.7) k/uL Basophils # (0-0.2) k/uL PT (10.0-12.5) sec INR (<1.2) APTT (22.0-30.0) sec Sodium (137-145) mmol/L Potassium (3.5-5.1) mmol/L Chloride (98-107) mmol/L Carbon Dioxide (22-30) mmol/L Anion Gap mmol/L BUN (7-17) mg/dL Creatinine (0.52-1.04) mg/dL Est GFR (CKD-EPI)AfAm (>60 ml/min/1.73 sqM) Est GFR (CKD-EPI)NonAf (>60 ml/min/1.73 sqM) Glucose (74-99) mg/dL Plasma Lactic Acid Imer 1.5 (0.7-2.0) mmol/L Calcium (8.4-10.2) mg/dL Phosphorus (2.5-4.5) mg/dL Magnesium (1.6-2.3) mg/dL Total Bilirubin (0.2-1.3) mg/dL AST (14-36) U/L ALT (4-34) U/L Alkaline Phosphatase (38-126) U/L Troponin I <0.012 (0.000-0.034) ng/mL Total Protein (6.3-8.2) g/dL Albumin (3.5-5.0) g/dL TSH (0.465-4.680) mIU/L Free T4 1.54 (0.78-2.19) ng/dL - EKG Data -: EKG Interpreted by Ga - Radiology Data Radiology results: report reviewed (Chest x-ray is negative for acute disease), image reviewed Disposition Clinical Impression: Dehydration, Weakness, Acute renal failure, Hypertension, Debility, UTI (urinary tract infection) Disposition: ADMITTED IP TO THIS [facility] Condition: Fair Time of Disposition: 17:50
[2024-08-23 15:00] LABS: INR 1.1 (<1.2); Partial Thromboplastin Time 23.6 sec (22.0-30.0)
[2024-08-23 15:03] LABS: ALT 22 U/L (4-34); AST 29 U/L (14-36); African American GFR (CKD) 43 (>60 ml/min/1.73 sqM); Albumin 4.6 g/dL (3.5-5.0); Alkaline Phosphatase 69 U/L (38-126); Anion Gap 9 mmol/L; Blood Urea Nitrogen 36 mg/dL (7-17); Calcium 10.1 mg/dL (8.4-10.2); Carbon Dioxide 34 mmol/L (22-30); Chloride 93 mmol/L (98-107); Glucose 228 mg/dL (74-99); Magnesium 1.7 mg/dL (1.6-2.3); Non-African American GFR(CKD) 38 (>60 ml/min/1.73 sqM); Phosphorus 4.5 mg/dL (2.5-4.5); Potassium 4.6 mmol/L (3.5-5.1); Sodium 136 mmol/L (137-145); Total Bilirubin 0.8 mg/dL (0.2-1.3); Total Protein 7.3 g/dL (6.3-8.2)
[2024-08-23 15:05] LABS: Basophils # (A) 0.1 k/uL (0-0.2); Basophils % (A) 0 %; Eosinophils # (A) 0.2 k/uL (0-0.7); Eosinophils % (A) 1 %; HGB 14.5 gm/dL (11.4-16.0); Lymphocytes # (A) 2.1 k/uL (1.0-4.8); Lymphocytes % (A) 13 %; MCH 29.5 pg (25.0-35.0); MCHC 31.6 g/dL (31.0-37.0); MCV 93.3 fL (80.0-100.0); Monocytes # (A) 0.6 k/uL (0-1.0); Monocytes % (A) 4 %; Neutrophils # (A) 13.2 k/uL (1.3-7.7); Neutrophils % (A) 82 %; Platelet Count 234 k/uL (150-450); RBC 4.93 m/uL (3.80-5.40); RDW 13.9 % (11.5-15.5); WBC 16.2 k/uL (3.8-10.6)
--- NOTE | 2024-08-23 15:13 | XR ---
EXAMINATION TYPE: XR chest 2V DATE OF EXAM: 08/23/2024 CLINICAL INDICATION: Female, 84 years old with history of Weakness, Lung cancer. TECHNIQUE: Frontal and lateral views of the chest are obtained. COMPARISON: Chest x-ray August 17, 2024 FINDINGS: There is background Chronic emphysematous change with right sided periHilar mass or neopla sm redemonstrated. No suspicious new focal airspace opacity, pleural effusion, or pneumothorax seen bilaterally. The cardiac silhouette size is stable and within normal limits with dual lead pacemaker redemonstrated. The osseous structures remain demineralized. Cholecystectomy clips are redemonstrat ed. IMPRESSION: Chronic changes without new acute pulmonary process. [facility], , 08/23/2024 3:11 PM
[2024-08-23] MEDS: LABETALOL 5 MG/ML VIAL MDV IVP STA (16:36)
[2024-08-23] MEDS ORDERED: NALOXONE 0.4 MG/ML 1 ML VIAL IV PRN (17:48)
[2024-08-23] MEDS: SODIUM CHLORIDE 0.9% 1,000 ML IV ONE (18:10)
[2024-08-23 19:47] LABS: Appearance,Urine Clear (Clear); Bilirubin,Urine Negative (Negative); Blood,Urine Negative (Negative); Color,Urine Light Yellow; Glucose,Urine (UA) 4+ (Negative); Hyaline Casts,Urine 1 /lpf (0-2); Ketones,Urine Negative (Negative); Leukocyte Esterase,Urine Small (Negative); Mucus,Urine Rare /hpf; Nitrite,Urine Negative (Negative); PH, Urine 5.5 (5.0-8.0); Protein,Urine Trace (Negative); RBC,Urine 2 /hpf (0-5); Specific Gravity,Urine 1.023 (1.001-1.035); Squamous Epithelial Cell,Urine 3 /hpf (0-4); Urobilinogen,Urine <2.0 mg/dL (<2.0); WBC,Urine 4 /hpf (0-5)
[2024-08-23 20:53] LABS: Influenza A Not Detected (Not Detectd); Influenza B Not Detected (Not Detectd); RSV Not Detected (Not Detectd)
[2024-08-23 21:59] LABS: Glucose,Whole Blood 152 mg/dL (70-110)
[2024-08-23] MEDS: metFORMIN 500 MG TAB PO SCH (23:27)
[2024-08-23] MEDS: SODIUM CHLORIDE 0.9% 500 ML 500 ML IV ONE (23:28)
[2024-08-23] MEDS: SODIUM CHLORIDE 0.9% 1,000 ML IV SCH (23:28)
[2024-08-23] MEDS: CEFDINIR 300 MG CAP PO SCH (23:37)
[2024-08-23] MEDS: METOPROLOL SUCCINATE (ER) 100 MG TAB.ER.24H PO SCH (23:38)
[2024-08-23] MEDS: MIRTAZAPINE 15 MG TAB PO SCH (23:38)
[2024-08-23] MEDS: LACOSAMIDE 50 MG TABLET PO SCH (23:38)
[2024-08-23] MEDS: ATORVASTATIN 80 MG TAB PO SCH (23:38)
[2024-08-23] MEDS: APIXABAN 2.5 MG TABLET PO SCH (23:44)
[2024-08-24] MEDS: traMADol 50 MG TAB PO PRN (00:11)
[2024-08-24] MEDS ORDERED: DEXTROSE 50% SYRINGE 50 ML IVP PRN ×2 (04:26)
[2024-08-24 05:18] LABS: ALT 17 U/L (4-34); African American GFR (CKD) 78 (>60 ml/min/1.73 sqM); Albumin 3.6 g/dL (3.5-5.0); Albumin/Globulin Ratio 1.5; Anion Gap 9 mmol/L; Blood Urea Nitrogen 26 mg/dL (7-17); Calcium 9.7 mg/dL (8.4-10.2); Carbon Dioxide 25 mmol/L (22-30); Chloride 102 mmol/L (98-107); Globulin 2.4 g/dL; Glucose 154 mg/dL (74-99); Non-African American GFR(CKD) 68 (>60 ml/min/1.73 sqM); Sodium 136 mmol/L (137-145); Total Bilirubin 0.5 mg/dL (0.2-1.3)
[2024-08-24 05:21] LABS: AST 28 U/L (14-36); Alkaline Phosphatase 45 U/L (38-126); Potassium 4.6 mmol/L (3.5-5.1)
[2024-08-24 05:54] LABS: Basophils % (A) 0 %; Eosinophils # (A) 0.2 k/uL (0-0.7); Eosinophils % (A) 1 %; HCT 39.3 % (34.0-46.0); HGB 12.8 gm/dL (11.4-16.0); Lymphocytes # (A) 3.2 k/uL (1.0-4.8); Lymphocytes % (A) 27 %; MCH 29.6 pg (25.0-35.0); MCHC 32.7 g/dL (31.0-37.0); MCV 90.6 fL (80.0-100.0); Mean Platelet Volume 8.8; Monocytes # (A) 0.8 k/uL (0-1.0); Monocytes % (A) 7 %; Neutrophils # (A) 7.3 k/uL (1.3-7.7); Neutrophils % (A) 62 %; Platelet Count 188 k/uL (150-450); RBC 4.34 m/uL (3.80-5.40); RDW 13.7 % (11.5-15.5); WBC 11.7 k/uL (3.8-10.6)
[2024-08-24] MEDS: TAMSULOSIN 0.4 MG CAP.ER.24H PO STA (06:57)
[2024-08-24 07:09] LABS: Glucose,Whole Blood 136 mg/dL (70-110)
[2024-08-24] MEDS: INSULIN LISPRO (HumaLOG) 100 UNIT/ML 10 mL VL SQ SCH (07:30)
[2024-08-24] MEDS ORDERED: PANTOPRAZOLE 40 MG/10 ML VIAL IV SCH (09:00)
[2024-08-24] MEDS: CLOPIDOGREL 75 MG TAB PO SCH (09:19)
[2024-08-24] MEDS: FUROSEMIDE 20 MG TAB PO SCH (09:19)
[2024-08-24] MEDS: PANTOPRAZOLE 40 MG TABLET PO SCH (09:19)
[2024-08-24] MEDS: LOSARTAN 25 MG TAB PO SCH (09:19)
[2024-08-24] MEDS: predniSONE 5 MG TAB PO SCH (09:20)
[2024-08-24 12:11] LABS: Glucose,Whole Blood 197 mg/dL (70-110)
[2024-08-24] MEDS: ACETAMINOPHEN TAB 325 MG TAB PO PRN (14:31)
--- NOTE | 2024-08-24 14:31 | HP ---
HISTORY AND PHYSICAL CHIEF COMPLAINT: Weakness. HISTORY OF PRESENT ILLNESS: This is an 84-year-old woman with a past medical history of multiple medical problems, complaining of weakness and confusion, elevated blood pressure, and the patient came to [facility] and was admitted for further evaluation and treatment. The patient was recently admitted and discharged with a TIA. There is no history of any fever, rigors, or chills at this time. PAST MEDICAL HISTORY: Reviewed include atrial fibrillation, COPD, CVA, TIA. Rest of the history and rest of the chart is also reviewed. HOME MEDICATIONS: Reviewed include Ultram, doses and rest of medications reviewed. ALLERGIES: None. FAMILY HISTORY: History of CHF. SOCIAL HISTORY: Previous history of smoking. REVIEW OF SYSTEMS: Fourteen-point review is negative except as mentioned earlier. PHYSICAL EXAMINATION: VITAL SIGNS: Pulse is 67, blood pressure 152/60, respirations 19. HEENT: Conjunctivae normal. NECK: No JVD. CARDIOVASCULAR: S1, S2. RESPIRATIONS: Breath sounds diminished at the bases. A few scattered rhonchi. ABDOMEN: Soft. LEGS: No edema. NERVOUS SYSTEM: Diffusely weak and diffuse tremors also. LABORATORY DATA: Noted. is negative. The chest x-ray which I reviewed personally showed some chronic changes in the right middle lobe. CT brain done last week showed remote ligament injuries and chronic microangiopathy. PET scan in May, increased progression of disease, increase in size and metabolic activity in the pulmonary nodules. ASSESSMENT: 1. Generalized weakness and tiredness, rule out sepsis or postoperative pneumonia. 2. History of lung cancer, right. 3. History of transient ischemic attack recently. 4. Chronic obstructive pulmonary disease. 5. Congestive heart failure. 6. Atrial fibrillation. 7. Diabetes mellitus, type 2. 8. History of deep venous thrombosis. 9. Multiple complex medical issues. RECOMMENDATIONS AND DISCUSSION: This is an 84-year-old woman, who presented with multiple complex medical issues, we will monitor the patient closely. I would recommend empiric antibiotics, serum procalcitonin, Pulmonary. Vital titers negative. Pulmonary and as well as Hematology/Oncology consultations. CT scan of the chest. Guarded prognosis because of multiple complex medical issues. Further recommendations to follow. See orders for further details. MMODL / IJN: [id number] / MTDD
[2024-08-24] MEDS ORDERED: ARTIFICIAL TEARS-HYPROMELLOSE DROPS 15 ML BTL BOTH EYES PRN (14:33)
[2024-08-24] MEDS: ONDANSETRON 4 MG/2 ML VIAL IVP PRN (15:28)
--- NOTE | 2024-08-24 15:41 | CT ---
EXAMINATION TYPE: CT chest wo con DATE OF EXAM: 08/24/2024 COMPARISON: 01/12/2024 CLINICAL INDICATION: Female, 84 years old with history of rt pneumonia?; PHH, pneumonia TECHNIQUE: CT scan of the thorax is performed without IV contrast. CT DLP: 136.[address] CTDI: mGy Automated exposure control for dose reduction was used. FINDINGS: There are marked emphysematous changes with an upper lobe predominance. There is a new 12.2 mm left upper lobe nodule. The 14.7 mm nodule left upper lobe has decreased in si ze to be 10.9 mm. A 14 mm nodule in the right upper lobe stable. Ill-defined mass in the right lower lobe is decreased in size from 4.3 x 2.6 cm to 2.6 x 1.5 cm. There is no airspace consolidation There is no pleural effusion or pneumothorax. Great vessels the chest are normal and is no mediastinal, hilar or axillary adenopathy. Limited scanning through the upper abdomen reveals no gross abnormality. There is interval development of a mild superior endplate compression fracture are multiple stable an d healed fractures of the right posterior seventh, eighth and ninth ribs likely pathologic given the history of lung cancer. IMPRESSION: 1. New 12.2 mm left upper lobe nodule suspicious for recurrent malignancy given the history of lung c ancer. 2. Multiple additional right and left lung nodules which have decreased in size in the interval. 3. No airspace consolidation. 4. no pleural effusion or pneumothorax. 5. No adenopathy. #6 new mild compression fracture of T8 and stable multiple fractures of the posteri or right seventh, eighth and ninth ribs likely pathologic 6. No evidence of acute pneumonia. Marked emphysematous changes with an upper lobe predominance [facility], , 08/24/2024 3:39 PM
[2024-08-24 16:17] LABS: ABG Base Excess 7.5 mmol/L; ABG HCO3 32 mmol/L (21-25); ABG Oxygen Saturation 98.9 % (94-97); ABG PCO2 43 mmHg (35-45); ABG PH 7.48 (7.35-7.45); ABG PO2 115 mmHg (83-108); ABG TCO2 33 mmol/L (19-24); Allen Test Performed? Yes
[2024-08-24 17:14] LABS: Glucose,Whole Blood 300 mg/dL (70-110)
[2024-08-24] MEDS: ALPRAZolam 0.25 MG TAB PO PRN (17:50)
[2024-08-24 20:33] LABS: Glucose,Whole Blood 233 mg/dL (70-110)
[2024-08-24] MEDS ORDERED: CEFDINIR 300 MG CAP PO SCH (21:00)
[2024-08-24 22:14] LABS: Glucose,Whole Blood 170 mg/dL (70-110)
--- NOTE | 2024-08-24 23:03 | CT ---
EXAMINATION TYPE: CODE STROKE: CT brain wo contr DATE OF EXAM: 08/24/2024 10:52 PM COMPARISON: 08/17/2024. CLINICAL INDICATION: Female, 84 years old with history of Neuro deficit, acute, stroke suspected, COD E STROKE. h/o lung CA, DM, HTN, COPD, CVA, fibromyalgia, a-fib, heart failure, DVTs, heart cath w/ st ents, cholecystectomy. TECHNIQUE: Brain: Axial CT images of the brain were obtained with coronal and sagittal reformats created and rev iewed. Contrast used: None. Oral contrast used: None. CT DLP: 1125.8 mGycm, Automated exposure control for dose reduction was used. FINDINGS: Brain: Extra-axial spaces: No abnormal extra-axial fluid collections. Ventricular system: Dilatation in proportion to cerebral atrophy. Cerebral parenchyma: Similar right basal ganglia/cortical fissure cyst on the right.. Cerebral atroph y. No acute intraparenchymal hemorrhage or mass effect. The lynn-white junction is well differentiat ed. Scattered hypoattenuating areas are seen within the white matter. Cerebellum: Unremarkable. Mass effect: No evidence of midline shift. Intracranial vasculature: Atherosclerotic calcifications of the intracranial vessels. Soft tissues: Normal. Calvarium/osseous structures: No depressed skull fracture. Paranasal sinuses and mastoid air cells: Mild scattered paranasal sinus disease. Visualized orbits: Orbital contents are intact. IMPRESSION: 1. No acute intracranial process. 2. Nonspecific white matter changes, likely secondary to chronic small vessel ischemic disease. [facility], , 08/24/2024 11:00 PM
--- NOTE | 2024-08-24 23:14 | CT ---
EXAMINATION TYPE: CODE STROKE: CTA head neck DATE OF EXAM: 08/24/2024 11:02 PM COMPARISON: CT brain same day. CLINICAL INDICATION: Female, 84 years old with history of Neuro deficit, acute, stroke suspected; PHH , CODE STROKE. h/o lung CA, DM, HTN, COPD, CVA, fibromyalgia, a-fib, heart failure, DVTs, heart cath w/ stents, cholecystectomy. TECHNIQUE: Axially acquired helical CT angiogram of the head and neck was obtained with contrast. Axi al images are supplemented with 3D reconstructions and MIP images which were post-processed at an in dependent workstation. NASCET criteria used. Contrast used:65 mL of Isovue 370 with IV Contrast, Oral contrast used: None. CT DLP: 314.3 mGycm, Automated exposure control for dose reduction was used. FINDINGS: CTA HEAD: No evidence of acute intracranial hemorrhage, mass effect, or midline shift. The ventricles, sulci, a nd cisterns are unremarkable. Vertebral arteries: The vertebral arteries are patent. Vertebral artery dominance: Left dominant system with diminutive right intracranial vertebral artery system. There is somewhat diminutive appearance of the right intracranial portion of the vertebral ar tahir. Basilar artery: The basilar artery is intact. The basilar artery bifurcation is normal. Internal Carotid arteries: The cervical, petrous, cavernous and supraclinoid segments are normal. MARSHA: Diminutive right A1 segment. Patent with no evidence of aneurysm. ACOM: Present without evidence of aneurysm. MCA: Patent with no evidence of aneurysm. [facility] [employer] [facility]: Patent with no evidence of aneurysm. PCOM: Hypoplastic bilaterally. Dural sinuses: Patent. CTA NECK: Right Carotid System: The common carotid and external carotid arteries are patent. There is less than 25% stenosis at the c arotid bifurcation secondary to calcified plaque. The rest of the internal carotid artery is patent. Left Carotid System: The common carotid and external carotid arteries are patent. There is less than 25% stenosis at the c arotid bifurcation secondary to calcified plaque. The rest of the internal carotid artery is patent. Vertebral arteries are patent without evidence hemodynamically significant stenosis. Dominant left ve rtebral artery system There is a three-vessel aortic arch. The origins of the great vessels are patent. No evidence of hemo dynamically significant stenosis. Upper thorax: Left upper lung 12 mm pulmonary nodule. Moderate centrilobular emphysema changes and mi ld paraseptal emphysema changes. IMPRESSION: 1. No evidence of dissection of the cervical internal carotid arteries or vertebral arteries. 2. No any evidence of significant stenosis at the carotid bifurcations. 3. No evidence of intracranial high-grade stenosis or intracranial aneurysm. 4. Diminutive right A1 segment. 5. Dominant left vertebral artery system with more diminutive right intracranial portion of the vert ebral artery system. [facility], , 08/24/2024 11:12 PM
[2024-08-24 23:59] LABS: ALT 19 U/L (4-34); AST 25 U/L (14-36); African American GFR (CKD) >90 (>60 ml/min/1.73 sqM); Albumin/Globulin Ratio 1.6; Alkaline Phosphatase 66 U/L (38-126); Anion Gap 9 mmol/L; Blood Urea Nitrogen 18 mg/dL (7-17); Calcium 9.4 mg/dL (8.4-10.2); Carbon Dioxide 33 mmol/L (22-30); Chloride 90 mmol/L (98-107); Globulin 2.5 g/dL; Glucose 150 mg/dL (74-99); Non-African American GFR(CKD) 78 (>60 ml/min/1.73 sqM); Potassium 4.2 mmol/L (3.5-5.1); Sodium 132 mmol/L (137-145); Total Bilirubin 0.6 mg/dL (0.2-1.3); Total Protein 6.5 g/dL (6.3-8.2)
[2024-08-25] MEDS: METOPROLOL SUCCINATE (ER) 50 MG TAB.ER.24H PO SCH (00:37)
[2024-08-25] MEDS: METOPROLOL SUCCINATE (ER) 100 MG TAB.ER.24H PO SCH (01:41)
[2024-08-25] MEDS: HYDROmorphone 0.5 MG/0.5 ML SYRINGE IVP PRN (04:44)
[2024-08-25] MEDS: Lacosamide IV (ages 17+ yrs) 200 MG/20 ML ML IVP STA (04:44)
[2024-08-25 05:22] LABS: Glucose,Whole Blood 157 mg/dL (70-110)
[2024-08-25] MEDS: CLEVIDIPINE BUTYRATE 25 MG in EMPTY BAG 1 BAG IV SCH (05:51)
[2024-08-25 06:25] LABS: Basophils # (A) 0.1 k/uL (0-0.2); Basophils % (A) 1 %; Eosinophils # (A) 0.1 k/uL (0-0.7); Eosinophils % (A) 1 %; HCT 42.5 % (34.0-46.0); HGB 13.2 gm/dL (11.4-16.0); Lymphocytes # (A) 2.8 k/uL (1.0-4.8); Lymphocytes % (A) 25 %; MCH 28.8 pg (25.0-35.0); MCV 92.9 fL (80.0-100.0); Mean Platelet Volume 8.9; Monocytes # (A) 0.7 k/uL (0-1.0); Monocytes % (A) 6 %; Neutrophils # (A) 7.2 k/uL (1.3-7.7); Neutrophils % (A) 65 %; Platelet Count 188 k/uL (150-450); RBC 4.58 m/uL (3.80-5.40); RDW 13.6 % (11.5-15.5); WBC 11.1 k/uL (3.8-10.6)
[2024-08-25 07:11] LABS: African American GFR (CKD) 81 (>60 ml/min/1.73 sqM); Anion Gap 10 mmol/L; Blood Urea Nitrogen 18 mg/dL (7-17); C Reactive Protein 0.6 mg/dL (<1.0); Calcium 9.9 mg/dL (8.4-10.2); Carbon Dioxide 30 mmol/L (22-30); Chloride 91 mmol/L (98-107); Glucose 168 mg/dL (74-99); Non-African American GFR(CKD) 70 (>60 ml/min/1.73 sqM); Potassium 4.3 mmol/L (3.5-5.1); Sodium 131 mmol/L (137-145)
[2024-08-25] MEDS ORDERED: METOPROLOL SUCCINATE (ER) 50 MG TAB.ER.24H PO SCH (09:00)
--- NOTE | 2024-08-25 09:14 | P.CNNES ---
History of Present Illness Consult date: 08/24/24 Requesting physician: Julio César Sierra Reason for Consult: Known History of Present Illness: Patient is a 84-year-old female with history of lung cancer 12 years ago, that has reappeared, now came to the hospital by ambulance yesterday at 1:57 PM for strokelike symptoms. Patient's daughter was also on the phone, who mentioned that this is the fourth time that she has been in the hospital for similar sy mptoms. She has been fighting a UTI as well. Has tried different antibiotics but it comes back. Patient also has history of lung cancer that was treated 12 years ago. It was in remission until recently, when 5 more spots has showed up. Patient's daughter mentions that patient has been having episodes, in which she could not walk, could not talk, her eyes are open and she is not responding. Patient was recently admitted on 08/17/2024 for acute confusion, aphasia, word finding problem headache. She was discharged from the hospital on 08/20/2024. Patient's daughter states that she was doing decent but not the best when she arrived home. However she has been going downhill since she arrived to the home. Patient could not walk, could not talk. Therefore she was brought back to the hospital. Patient also has been having headache 9/10 at this time. She is also getting sick to stomach. She has received Tylenol, tramadol. She has been having these episodes of TIA versus seizure that lasts for about 60 minutes. As per EMS flow sheet, when EMS arrived, patient was sitting on edge of the bed. Patient was alert and orient x 4 with GCS of 15. Patient's family stated that patient was recently placed on BP medication and had hypertension for 24 hours. Family mentioned that patient has been getting progressively weaker over the past 24 hours. Patient denied any chest pain or difficulty breathing. Patient is on home oxygen at 2 L/min via nasal cannula. Patient was moved to EMS chair via stand and pivot with assistance from EMS personnel on the scene. Patient's vitals at the scene was blood pressure 125/96, which came down to 178/88, pulse rate 61, respiration 16 saturation at 99%. Blood test shows WBC 16.2 hemoglobin 14.5 platelets are normal. PT PTT normal. Sodium 136 potassium 4.6. BUN 36 creatinine 1.30. Hepatic panel is normal. UA negative. Influenza, RSV and coronavirus PCR negative. Patient's hemoglobin A1c 6.6. B12 610, TSH is mildly elevated 5.22. Free T4 normal. EKG showed electronic atrial pacemaker. Chest x-ray showed chronic changes without new acute pulmonary process. Patient had an EEG on 08/06/2020, which revealed no abnormalities. Another EEG from 08/19/2024 showed background slowing, suggestive of mild to moderate encephalopathy. No epileptiform activity was seen. Patient was recently seen by Dr. Drew Pino on 08/19/2024, because patient has presented with word finding problem. Patient had transient expressive aphasia with left leg weakness, likely TIA. Patient had left ICA stenosis 60% on CTA but carotid Doppler revealed 50 to 69%. Patient has smoked 1-1/2 pack per day for 30 years, quit 15-20 years ago. Denies any alcohol use. Patient does have COPD, and has to use oxygen 2 L per minute on a 24-hour basis. No previous history of migraines. Review of Systems All pertinent positive and negative review of systems mentioned HPI, otherwise unremarkable. Patient does have a severe headache, appears to have some nausea, feels as if she can vomit. She appears encephalopathic. Has difficulty breathing. Past Medical History Past Medical History: Atrial Fibrillation, Cancer, Heart Failure, COPD, CVA/TIA, Diabetes Mellitus, Deep Vein Thrombosis (DVT), Fibromyalgia, GERD/Reflux, Hyperlipidemia, Hypertension, Osteoarthritis (OA), Pneumonia, Sleep Apnea/CPAP/BIPAP, Vascular Disorder Additional Past Medical History / Comment(s): back pain , lung cancer-radiation opnly, HOME 02 2 LITERS N/C, BLOOD CLOT AFTER SX, CVA LT SIDE AFFECTED SINCE RESOLVED, HIATAL HERNIA. SHINGLES 30 YEARS AGO, DOES'NT USE CPAP MACHINE.in past for short period of time took oral meds for dm-then taken off meds-pt stated not considered diabetic now but occ will check bs., macular degeneration.past broken rt leg and lt wrist. Raynauds. Pt currently has 3 fractured ribs on the right that she has "had for years and will not heal". History of Any Multi-Drug Resistant Organisms: MRSA Date of last positivie culture/infection: 09/25/16 MDRO Source:: BRONCH WASH Past Surgical History: Cholecystectomy, Heart Catheterization With Stent, Orthopedic Surgery Additional Past Surgical History / Comment(s): rt leg repaired after break-has pins, lt wrist-plate and screws. lung bx, stents tung groins. Past Anesthesia/Blood Transfusion Reactions: Family History of Problems w/ Ane sthesia Additional Past Anesthesia/Blood Transfusion Reaction / Comment(s): daughter has diff waking after aa Date of Last Stent Placement:: unk Type of Cardiac Device: Permanent Pacemaker Device Placement Date:: 09/25/20 Smoking Status: Former smoker - Past Family History Father Family Medical History: Congestive Heart Failure (CHF), COPD Additional Family Medical History / Comment(s): emphysema Mother Family Medical History: Cancer Medications and Allergies Home Medications Medication Instructions Recorded Confirmed Type Fluticasone/Umeclidin/Vilanter 1 puff INHALATION RT-DAILY 04/19/20 08/23/24 History [Brinda Ellipta 100-62.5-25] Pantoprazole Sodium [Protonix] 20 mg PO DAILY 12/01/22 08/23/24 History Apixaban [Eliquis] 5 mg PO BID 04/07/24 08/23/24 History Mirtazapine [Remeron] 15 mg PO HS 04/07/24 08/23/24 History Atorvastatin [Lipitor] 80 mg PO HS 06/21/24 08/23/24 History predniSONE 5 mg PO DAILY 06/21/24 08/23/24 History traMADol HCL 50 mg PO Q6H PRN 3 Days #12 tab 06/24/24 08/23/24 Rx ALPRAZolam [Xanax] 0.25 mg PO TID PRN 08/18/24 08/23/24 History Cefuroxime [Ceftin] 250 mg PO BID 08/18/24 08/23/24 History Fluconazole [Diflucan] 100 mg PO DAILY 08/18/24 08/23/24 History Irbesartan [Avapro] 75 mg PO DAILY 08/18/24 08/23/24 History Metoprolol Succinate (ER) [Toprol 100 mg PO BID 08/18/24 08/23/24 History XL] Clopidogrel [Plavix] 75 mg PO DAILY 30 Days #30 tab 08/20/24 08/23/24 Rx Lacosamide [Vimpat] 50 mg PO BID 30 Days #60 tab 08/20/24 08/23/24 Rx metFORMIN HCL [Glucophage] 500 mg PO BID 30 Days #60 tab 08/20/24 08/23/24 Rx Furosemide [Lasix] 20 mg PO DAILY 08/23/24 08/23/24 History Allergies Allergy/AdvReac Type Severity Reaction Status Date / Time No Known Allergies Allergy Verified 08/23/24 14:03 Physical Examination - Vital Signs Vital Signs: Vital Signs Temp Pulse Pulse Resp BP BP BP 08/24/24 12:21 97.6 F 72 19 164/68 08/24/24 09:17 67 152/68 08/24/24 07:19 97.6 F 60 19 180/48 08/24/24 06:06 162/84 08/24/24 01:35 97.6 F 72 18 185/67 08/23/24 21:24 97.8 F 77 18 176/66 08/23/24 21:09 68 18 151/74 08/23/24 19:57 60 16 164/76 08/23/24 18:12 69 18 135/72 08/23/24 17:17 74 16 134/58 08/23/24 16:50 60 16 122/64 08/23/24 16:38 70 20 122/61 08/23/24 15:48 75 20 224/96 Pulse Ox 08/24/24 12:21 92 L 08/24/24 09:17 99 08/24/24 07:19 99 08/24/24 06:06 08/24/24 01:35 99 08/23/24 21:24 100 08/23/24 21:09 08/23/24 19:57 100 08/23/24 18:12 97 08/23/24 17:17 98 08/23/24 16:50 98 08/23/24 16:38 95 08/23/24 15:48 99 Intake and Output 08/23/24 08/24/24 08/24/24 22:59 06:59 14:59 Intake Total 540 Output Total 1000 Balance 540 -1000 Intake: Oral 540 Output: Urine 1000 Straight 1000 Other: Voiding Method Bedside Commode Bedside Commode Diaper # Voids 1 Weight 53.07 kg Patient is an elderly female, who appears somewhat in [id number] distress from headache and also from difficulty breathing. Patient is supposed to have oxygen at 2 L by nasal cannula, but she is not using oxygen at this time. The nurse came and placed the nasal cannula. Patient appears to have difficulty with breathing, appears restless, delirious, slightly hallucinating. Patient states "I saw you and your brother", perhaps confusing me with Dr. Pino, who she has seen multiple times in the past. Patient states "the man that came in room with you". Patient complaining of headache / pointing to the right frontal region. Patient is alert awake oriented to time place and person. She states it is July and the year is 2024. She knows that she is in [facility] in [facility]. Speech and language functions are normal. Patient can name and repeat very well. No aphasia or dysarthria. Attention, concentration is d ecreased and fund of knowledge is mildly limited. Detailed cognitive function testing deferred due to her restlessness and difficulty breathing. On cranial nerve examination, pupils are equal, round and reacting to light, visual eason revealed questionable neglect on the left side. She was very inconsistent but appears to have possible visual field deficit versus neglect left side. Extraocular muscles are intact with no nystagmus. Face is symmetric, tongue protrudes to the midline. Palatal elevation and sensation normal, hearing is slightly decreased and shoulder shrug normal, facial se nsation normal. On muscle strength testing, there is no pronator drift and the strength is normal in arms and legs distally and proximally. Deep tendon reflexes are symmetric and plantars downgoing. Sensory to touch is equal with no neglect on double simultaneous stimulation. Cerebellar function showed no ataxia for [id number] testing. Patient has mild myoclonic jerks of outstretched hands. No dysdiadochokinesia. No ataxia for [id number] testing on either side. Tone and bulk of muscles normal. Gait deferred.. On general examination, there is no carotid bruit or murmur, S1-S2 audible. Chest is clear on consultation. Abdomen is soft nontender. No organomegaly, bowel sounds present. Peripheral pulses are present. No peripheral edema. Results - Laboratory Findings CBC and BMP: 08/25/24 06:03 08/25/24 06:03 Abnormal Lab Findings: Abnormal Labs 08/23/24 08/23/24 08/23/24 14:35 14:35 19:00 WBC 16.2 H Neutrophils # 13.2 H Sodium 136 L Chloride 93 L Carbon Dioxide 34 H BUN 36 H Creatinine 1.30 H Glucose 228 H POC Glucose (mg/dL) Total Protein TSH 5.220 H Urine Protein Trace H Urine Glucose (UA) 4+ H Ur Leukocyte Esterase Small H Urine Mucus Rare H 08/23/24 08/24/24 08/24/24 21:55 04:32 04:32 WBC 11.7 H Neutrophils # Sodium 136 L Chloride Carbon Dioxide BUN 26 H Creatinine Glucose 154 H POC Glucose (mg/dL) 152 H Total Protein 6.0 L TSH Urine Protein Urine Glucose (UA) Ur Leukocyte Esterase Urine Mucus 08/24/24 08/24/24 07:03 12:00 WBC Neutrophils # Sodium Chloride Carbon Dioxide BUN Creatinine Glucose POC Glucose (mg/dL) 136 H 197 H Total Protein TSH Urine Protein Urine Glucose (UA) Ur Leukocyte Esterase Urine Mucus Assessment and Plan Assessment: * Recurrent episodes of lethargy, difficulty walking, talking, unclear cause. Rule out TIA versus seizures. * Atrial fibrillation on Eliquis. * Left ICA stenosis 60% on CTA but on carotid duplex 50-69% * Recurrent confusion with word finding difficulties (had 4 prior episodes) * History of seizures in the past and the daughter thinks her seizures was last 12 years ago and she used to have blank stare confused and was never on any antiseizure medication: She refused she had workup for the seizures in the past. * Presyncope status post pacemaker. It seems the patient has positive orthostatic on 06/20/2024 * Left upper lobe pulmonary nodule on CTA suspicious for neoplastic. * History of TIA * History of DVT * History of diabetes mellitus * History of fibromyalgia * Hypertension * Hyperlipidemia * History of sleep apnea on BiPAP * Chronic back pain * history of lung cancer post radiation, with probable recurrence * COPD, on home oxygen 2 L per minute * X tobacco use Plan: * Cannot obtain the MRI since has a pacemaker * Patient to undergo prolonged EEG for 1 hour to evaluate for epileptiform activity. * Patient currently on Vimpat 50 mg twice a day. * Patient on last visit was switched from aspirin to Plavix 75 mg daily due to possible recurrent TIA and carotid stenosis. Patient is also on Eliquis 2.5mg bid. * Continue neurochecks * ABG was checked. All pH 7.48, pCO2 43, pO2 115 and saturation 98.9% on 28% FiO2. * Cardiac monitoring * PT OTand TRAVELING FREIGHT AGENT are consulted. * Hemoglobin A1c 7.0 * Lipid panel with cholesterol 139, LDL 53, HDL 64 and triglycerides 104. Continue Lipitor 80 mg daily. * Vascular surgery has seen patient on the last admission. Due to her overall medical comorbidities and status, they were recommending towards conservative measures. They recommended to switch from aspirin to Plavix and continue low- dose Eliquis for A. fib. The patient continues to be asymptomatic, then may consider intervention, however patient would likely benefit best from continue conservative measures.. * Will defer the rest of medical management to primary and other specialist. * Thank you for the consult. Time with Patient: Greater than 30
--- NOTE | 2024-08-25 13:55 | P.CRDCN ---
History of Present Illness Consult date: 08/25/24 History of present illness: HISTORY OF PRESENTING ILLNESS: 84-year-old with prior history of lung cancer, with some concerns of relapse, history of CAD status post PCI, atrial fibrillation, sick sinus syndrome with PPM She presented to the hospital 08/23/2024 because of strokelike symptoms, word finding difficulty, generalized weakness. She has had prior history of TIA/CVA. Patient's daughter mentioned that patient has been having episodes in which she would get weak, could not talk, cannot walk, her eyes are open and she is not responding. She has been evaluated by neurology for possible seizures versus TIA. Cardiology was consulted because patient was noticed to be hypertensive on admission. And because of her prior cardiovascular history. She denies any symptoms of chest pain chest pressure. She does not have any signs of fluid overload. On this admission she is in atrial paced rhythm with no signs of arrhythmias. She does have prior history of paroxysmal atrial fibrillation. Admission Vitals: 167/94, last night BP 202 over 109 mmHg Admission Labs: Hb 13.2, BUN 18, creatinine 0.7, A1c 7, TSH 0.9, Admission EKG: Atrial paced V sensed rhythm with nonspecific ST changes Imaging: CT head did not show any acute intracranial process. CT angiogram neck showed left carotid 60% disease. CT chest showed emphysema with possible relapse of lung cancer with lung nodule. Home cardiac medications Eliquis 5 twice daily, Lipitor 80, Plavix 75, Lasix 20, irbesartan 75, metoprolol succinate 100 twice daily Prior cardiac testing: Echo from 05/2024 shows EF 55%, no RWMA, PPM wire in RA and RV, mild left atrial dilatation, no significant valvular dysfunction REVIEW OF SYSTEMS: 14 point review of system is negative except what is mentioned above in HPI. PHYSICAL EXAMINATION: Neck: Mild left carotid bruit, no jugular venous distention. Lungs: Clear to auscultation. Heart: Regular rate and rhythm, S1-S2, no murmur or rub. Abdomen: Soft nontender, positive bowel sounds. Extremities: No edema, intact distal pulses. Neuro: Alert, oritented, some word finding difficulty, no focal deficits. Detailed neuro exam was not performed. ASSESSMENT: # Hypertensive urgency with suspected TIA # Generalized weakness with word finding difficulty # Supine hypertension with orthostatic instability from tilt table test from 05/2024. # Stable CAD, prior history of PCI to LCx # Paroxysmal atrial fibrillation # Sick sinus syndrome status post PPM # Moderate left carotid stenosis 60% # History of lung cancer with possible relapse # Advance COPD # Essential hypertension, dyslipidemia, prior history of CVA/TIA # Ex-smoker PLAN: Because of her symptoms of generalized weakness, I will reduce her Lipitor dose to 40 mg, discontinue Lasix and be gentle with her antihypertensives. From a tilt able test it did show that she has orthostatic instability with supine hypertension. Eliquis 2.5 mg twice daily. (Low-dose because of age and weight) Plavix 75 mg daily Reduce Lipitor to 40, Discontinue Lasix Metoprolol XL 50 mg twice daily Losartan 25 mg daily If blood pressure still elevated, consider amlodipine 5 mg in PM. If diuretic is needed consider SGLT2. Brent Cottrell MD, FACC, RPVI Thank you for allowing [facility] to participate in this patient's care. Feel free to reach out in case of any followup questions. Past Medical History Past Medical History: Atrial Fibrillation, Cancer (Lung cancer, treated with radiation/SBRT), Heart Failure, COPD, CVA/TIA, Diabetes Mellitus, Deep Vein Thrombosis (DVT), Fibromyalgia, GERD/Reflux, Hyperlipidemia, Hypertension, Osteoarthritis (OA), Pneumonia, Sleep Apnea/CPAP/BIPAP, Vascular Disorder Additional Past Medical History / Comment(s): back pain , lung cancer-radiation opnly, HOME 02 2 LITERS N/C, BLOOD CLOT AFTER SX, CVA LT SIDE AFFECTED SINCE RESOLVED, HIATAL HERNIA. SHINGLES 30 YEARS AGO, DOES'NT USE CPAP MACHINE.in past for short period of time took oral meds for dm-then taken off meds-pt stated not considered diabetic now but occ will check bs., macular degeneration.past broken rt leg and lt wrist. Raynauds. Pt currently has 3 fractured ribs on the right that she has "had for years and will not heal". History of Any Multi-Drug Resistant Organisms: MRSA Date of last positivie culture/infection: 09/25/16 MDRO Source:: BRONCH WASH Past Surgical History: Cholecystectomy, Heart Catheterization With Stent, Orthopedic Surgery Additional Past Surgical History / Comment(s): rt leg repaired after break-has pins, lt wrist-plate and screws. lung bx, stents tung groins. Past Anesthesia/Blood Transfusion Reactions: Family History of Problems w/ Anes thesia Additional Past Anesthesia/Blood Transfusion Reaction / Comment(s): daughter has diff waking after aa Date of Last Stent Placement:: unk Type of Cardiac Device: Permanent Pacemaker Device Placement Date:: 09/25/20 Smoking Status: Former smoker - Past Family History Father Family Medical History: Congestive Heart Failure (CHF), COPD Additional Family Medical History / Comment(s): emphysema Mother Family Medical History: Cancer Medications and Allergies Home Medications Medication Instructions Recorded Confirmed Type Fluticasone/Umeclidin/Vilanter 1 puff INHALATION RT-DAILY 04/19/20 08/23/24 History [Trelegy Ellipta 100-62.5-25] Pantoprazole Sodium [Protonix] 20 mg PO DAILY 12/01/22 08/23/24 History Apixaban [Eliquis] 5 mg PO BID 04/07/24 08/23/24 History Mirtazapine [Remeron] 15 mg PO HS 04/07/24 08/23/24 History Atorvastatin [Lipitor] 80 mg PO HS 06/21/24 08/23/24 History predniSONE 5 mg PO DAILY 06/21/24 08/23/24 History traMADol HCL 50 mg PO Q6H PRN 3 Days #12 tab 06/24/24 08/23/24 Rx ALPRAZolam [Xanax] 0.25 mg PO TID PRN 08/18/24 08/23/24 History Cefuroxime [Ceftin] 250 mg PO BID 08/18/24 08/23/24 History Fluconazole [Diflucan] 100 mg PO DAILY 08/18/24 08/23/24 History Irbesartan [Avapro] 75 mg PO DAILY 08/18/24 08/23/24 History Metoprolol Succinate (ER) [Toprol 100 mg PO BID 08/18/24 08/23/24 History XL] Clopidogrel [Plavix] 75 mg PO DAILY 30 Days #30 tab 08/20/24 08/23/24 Rx Lacosamide [Vimpat] 50 mg PO BID 30 Days #60 tab 08/20/24 08/23/24 Rx metFORMIN HCL [Glucophage] 500 mg PO BID 30 Days #60 tab 08/20/24 08/23/24 Rx Furosemide [Lasix] 20 mg PO DAILY 08/23/24 08/23/24 History Allergies Allergy/AdvReac Type Severity Reaction Status Date / Time No Known Allergies Allergy Verified 08/23/24 14:03 Physical Exam Vitals: Vital Signs Temp Pulse Pulse Resp BP BP BP 08/25/24 10:45 65 11 L 154/70 08/25/24 10:30 61 10 L 162/67 08/25/24 10:15 62 14 144/64 08/25/24 10:00 61 14 167/65 08/25/24 09:45 62 15 145/67 08/25/24 09:44 08/25/24 09:30 67 12 151/63 08/25/24 09:15 62 12 164/72 08/25/24 09:00 61 12 175/69 08/25/24 08:45 67 12 161/72 08/25/24 08:30 66 12 168/69 08/25/24 08:15 63 12 159/62 08/25/24 08:00 98 F 60 11 L 153/71 08/25/24 07:45 57 L 12 151/62 08/25/24 07:30 61 18 172/63 08/25/24 07:15 64 12 168/71 08/25/24 07:00 58 L 14 172/62 08/25/24 06:45 55 L 8 L 165/60 08/25/24 06:30 56 L 8 L 168/56 08/25/24 06:15 60 9 L 189/65 08/25/24 06:00 57 L 9 L 08/25/24 05:45 69 14 205/80 08/25/24 05:30 67 11 L 202/103 08/25/24 05:21 63 28 H 08/25/24 03:51 98.6 F 67 16 191/67 08/25/24 03:49 98.6 F 64 16 191/67 08/25/24 02:05 99.4 F 63 16 162/74 08/25/24 00:13 99.7 F H 74 16 202/73 201/69 08/24/24 22:13 99.2 F 76 16 188/77 08/24/24 22:08 99.2 F 76 16 188/77 08/24/24 19:29 99.8 F H 82 20 203/67 Pulse Ox 08/25/24 10:45 97 08/25/24 10:30 97 08/25/24 10:15 97 08/25/24 10:00 97 08/25/24 09:45 97 08/25/24 09:44 97 08/25/24 09:30 97 08/25/24 09:15 97 08/25/24 09:00 99 08/25/24 08:45 97 08/25/24 08:30 97 08/25/24 08:15 97 08/25/24 08:00 99 08/25/24 07:45 99 08/25/24 07:30 98 08/25/24 07:15 98 08/25/24 07:00 98 08/25/24 06:45 99 08/25/24 06:30 99 08/25/24 06:15 08/25/24 06:00 96 08/25/24 05:45 98 08/25/24 05:30 97 08/25/24 05:21 08/25/24 03:51 99 08/25/24 03:49 99 08/25/24 02:05 99 08/25/24 00:13 99 08/24/24 22:13 98 08/24/24 22:08 98 08/24/24 19:29 98 Intake and Output 08/24/24 08/25/24 08/25/24 22:59 06:59 14:59 Intake Total 9.133 Output Total 0 Balance 9.133 Intake: Intake, IV Titration 9.133 Amount Clevidipine Butyrate 25 9.133 mg In Empty Bag 1 bag @ 1 MG/HR 2 mls/hr IV .Q24H [facility] Rx#:[id number] Output: Urine 0 Other: Voiding Method Bedside Commode Bedside Commode Diaper Diaper # Voids 1 Weight 53.07 kg Results 08/25/24 06:03 08/25/24 06:03 Cardiac Enzymes 08/24/24 Range/Units 23:27 AST 25 (14-36) U/L CBC 08/25/24 Range/Units 06:03 WBC 11.1 H (3.8-10.6) k/uL RBC 4.58 (3.80-5.40) m/uL Hgb 13.2 (11.4-16.0) gm/dL Hct 42.5 (34.0-46.0) % Plt Count 188 (150-450) k/uL Comprehensive Metabolic Panel 08/24/24 08/25/24 Range/Units 23:27 06:03 Sodium 132 L 131 L (137-145) mmol/L Potassium 4.2 4.3 (3.5-5.1) mmol/L Chloride 90 L 91 L (98-107) mmol/L Carbon Dioxide 33 H 30 (22-30) mmol/L BUN 18 H 18 H (7-17) mg/dL Creatinine 0.71 0.78 (0.52-1.04) mg/dL Glucose 150 H 168 H (74-99) mg/dL Calcium 9.4 9.9 (8.4-10.2) mg/dL AST 25 (14-36) U/L ALT 19 (4-34) U/L Alkaline Phosphatase 66 (38-126) U/L Total Protein 6.5 (6.3-8.2) g/dL Albumin 4.0 (3.5-5.0) g/dL Current Medications Generic Name Dose Route Start Last Admin Trade Name Freq PRN Reason Stop Dose Admin Acetaminophen 650 mg 08/24/24 14:19 08/24/24 14:31 Acetaminophen Tab 325 Mg Tab PO 650 mg Q6HR PRN Administration Fever and/ or Pain Alprazolam 0.25 mg 08/23/24 22:39 08/25/24 01:16 Alprazolam 0.25 Mg Tab PO 0.25 mg TID PRN Administration Anxiety Apixaban 2.5 mg 08/23/24 22:45 08/25/24 13:12 Apixaban 2.5 Mg Tablet PO 2.5 mg BID LETICIA Administration Protocol Artificial Tears 2 drops 08/24/24 14:33 Artificial Tears-Hypromellose Drops 15 Ml Btl BOTH EYES QID PRN Dry Eye(s) Atorvastatin Calcium 40 mg 08/25/24 21:00 Atorvastatin 40 Mg Tab PO HS LETICIA Clopidogrel Bisulfate 75 mg 08/24/24 09:00 08/25/24 13:12 Clopidogrel 75 Mg Tab PO 75 mg DAILY LETICIA Administration Dextrose/Water 25 ml 08/24/24 04:26 Dextrose 50% Syringe 50 Ml IVP PER PROTOCOL PRN Hypoglycemia Protocol Dextrose/Water 50 ml 08/24/24 04:26 Dextrose 50% Syringe 50 Ml IVP PER PROTOCOL PRN Hypoglycemia Protocol Hydromorphone HCl 0.5 mg 08/25/24 04:19 08/25/24 04:44 Hydromorphone 0.5 Mg/0.5 Ml Syringe IVP 0.5 mg Q2HR PRN Administration Pain Sodium Chloride 1,000 mls @ 60 mls/hr 08/23/24 17:30 08/24/24 17:50 Saline 0.9% IV 60 mls/hr .[id number] LETICIA Administration Ceftriaxone Sodium 1 gm/ 50 mls @ 100 mls/hr 08/24/24 13:45 08/25/24 08:30 Sodium Chloride IVPB 100 mls/hr Q24HR LETICIA Administration Protocol Clevidipine 25 mg/ IV Solution 50 mls @ 2 mls/hr 08/25/24 05:45 08/25/24 10:25 IV 0 mg/hr .Q24H LETICIA 0 mls/hr Titration Protocol 1 MG/HR Insulin Human Lispro 0 unit 08/24/24 07:30 08/25/24 06:40 Insulin Lispro (Humalog) 100 Unit/Ml 10 Ml Vl SQ Not Given ACHS LETICIA Protocol Lacosamide 100 mg 08/25/24 18:00 Lacosamide Iv (Ages 17+ Yrs) 200 Mg/20 Ml Ml IVP BID@0600,1800 [facility] Losartan Potassium 25 mg 08/24/24 09:00 08/24/24 09:19 Losartan 25 Mg Tab PO 25 mg DAILY LETICIA Administration Metoprolol Succinate 50 mg 08/25/24 00:06 08/25/24 00:37 Metoprolol Succinate (Er) 50 Mg Tab.Er.24h PO 50 mg BID LETICIA Administration Mirtazapine 15 mg 08/23/24 22:45 08/25/24 01:16 Mirtazapine 15 Mg Tab PO Not Given HS LETICIA Morphine Sulfate 4 mg 08/23/24 17:48 Morphine Sulfate 4 Mg/Ml Syringe IV Q4HR PRN Severe Pain (Scale 7 to 10) Naloxone HCl 0.2 mg 08/23/24 17:48 Naloxone 0.4 Mg/Ml 1 Ml Vial IV Q2M PRN Opioid Reversal Ondansetron HCl 4 mg 08/23/24 17:48 08/25/24 05:30 Ondansetron 4 Mg/2 Ml Vial IVP 4 mg Q8HR PRN Administration Nausea And Vomiting Pantoprazole Sodium 40 mg 08/24/24 07:30 08/25/24 07:05 Pantoprazole 40 Mg Tablet PO Not Given [id number] [facility] Prednisone 5 mg 08/24/24 09:00 08/25/24 13:13 Prednisone 5 Mg Tab PO 5 mg DAILY LETICIA Administration Intake and Output 08/24/24 08/25/24 08/25/24 22:59 06:59 14:59 Intake Total 9.133 Output Total 0 Balance 9.133 Intake: Intake, IV Titration 9.133 Amount Clevidipine Butyrate 25 9.133 mg In Empty Bag 1 bag @ 1 MG/HR 2 mls/hr IV .Q24H [facility] Rx#:[id number] Output: Urine 0 Other: Voiding Method Bedside Commode Bedside Commode Diaper Diaper # Voids 1 Weight 53.07 kg 08/25/24 06:03 08/25/24 06:03
[2024-08-25 16:04] LABS: Glucose,Whole Blood 269 mg/dL (70-110)
--- NOTE | 2024-08-25 17:37 | P.CONS ---
History of Present Illness - Reason for Consult Consult date: 08/25/24 - History of Present Illness Mrs. Hercules is a pleasant 84-year-old female patient who saw Dr. 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 In her past medical history it is reported that she was diagnosed with an early stage non-small cell lung cancer in 2011 in [place] and had SBRT at that time. She had a CAT scan of the chest and a bone scan in March 2020 with no evidence of recu rrence. 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 Koch in regards to this history. She was seen on consult at [facility] in 03/[address] of the neck and chest showed multiple lung nodules. She did have a repeat PET scan in which showing increasing size and SUV in bilateral lung nodules,hilar and mediastinal nodes, concerning for metastatic disease. Iideally,a tissue biopsy would be considered to r/o new lung primary vs recurrence of her previous lung cancer, however, pt declined biopsy and due to her poor PS may not permit a CT guided or bronchoscopic biopsy. At her last clinic f/u last month pt stated she would not want systemic chemo, but would be amendable to oral targeted therapy. A liquid biopsy was obtained, no targeting therapies were found for treatment of suspected lung cancer. She was considering comfort care measures, and would call the clinic if she wanted to pursue further workup with tissue biopsy. Patient presented to the emergency room with complaints of weakness, confusion and hypertension. Per daughter patient has had multiple TIAs over the last 1 year with intermittent uncontrolled hypertension, BP at times greater than 250 systolically. Upon admission patient started experiencing right sided headache and eye pain with left-sided weakness. CTA head and neck revealed no evidence of acute intracranial hemorrhage, mass effect or midline shift. Ventricles, sulci, and cisterns are unremarkable. CT chest showing new 12.2 mm left upper lobe nodule. Multiple additional right lung nodules which have decreased in size in the interval. No pleural effusion or pneumothorax. No abnormal lymphadenopathy. New mild compression fracture of T8 and stable multiple fractures of the posterior right seventh eighth and ninth ribs. Patient has been started on Rocephin for suspected UTI. Viral panel negative. WBC 11.1, hemoglobin 13.2, platelets 1 80,000. Creatinine 0.78, GFR 70. LFTs and bilirubin WNL. Review of Systems 10 point ROS is negative except as stated in the HPI Past Medical History Past Medical History: Atrial Fibrillation, Cancer (Lung cancer, treated with radiation/SBRT), Heart Failure, COPD, CVA/TIA, Diabetes Mellitus, Deep Vein T hrombosis (DVT), Fibromyalgia, GERD/Reflux, Hyperlipidemia, Hypertension, Osteoarthritis (OA), Pneumonia, Sleep Apnea/CPAP/BIPAP, Vascular Disorder Additional Past Medical History / Comment(s): back pain , lung cancer-radiation opnly, HOME 02 2 LITERS N/C, BLOOD CLOT AFTER SX, CVA LT SIDE AFFECTED SINCE RESOLVED, HIATAL HERNIA. SHINGLES 30 YEARS AGO, DOES'NT USE CPAP MACHINE.in past for short period of time took oral meds for dm-then taken off meds-pt stated not considered diabetic now but occ will check bs., macular degeneration.past broken rt leg and lt wrist. Raynauds. Pt currently has 3 fractured ribs on the right that she has "had for years and will not heal". History of Any Multi-Drug Resistant Organisms: MRSA Year Discovered:: 09/25/16 MDRO Source:: BRONCH WASH Past Surgical History: Cholecystectomy, Heart Catheterization With Stent, Orthopedic Surgery Additional Past Surgical History / Comment(s): rt leg repaired after break-has pins, lt wrist-plate and screws. lung bx, stents tung groins. Past Anesthesia/Blood Transfusion Reactions: Family History of Problems w/ Anesthesia Additional Past Anesthesia/Blood Transfusion Reaction / Comm: daughter has diff waking after aa Date of Last Stent Placement:: unk Type of Cardiac Device: Permanent Pacemaker Device Placement Date:: 09/25/20 Smoking Status: Former smoker - Past Family History Father Family Medical History: Congestive Heart Failure (CHF), COPD Additional Family Medical History / Comment(s): emphysema Mother Family Medical History: Cancer Medications and Allergies Home Medications Medication Instructions Recorded Confirmed Type Fluticasone/Umeclidin/Vilanter 1 puff INHALATION RT-DAILY 04/19/20 08/23/24 History [Brinda Ellipta 100-62.5-25] Pantoprazole Sodium [Protonix] 20 mg PO DAILY 12/01/22 08/23/24 History Apixaban [Eliquis] 5 mg PO BID 04/07/24 08/23/24 History Mirtazapine [Remeron] 15 mg PO HS 04/07/24 08/23/24 History Atorvastatin [Lipitor] 80 mg PO HS 06/21/24 08/23/24 History predniSONE 5 mg PO DAILY 06/21/24 08/23/24 History traMADol HCL 50 mg PO Q6H PRN 3 Days #12 tab 06/24/24 08/23/24 Rx ALPRAZolam [Xanax] 0.25 mg PO TID PRN 08/18/24 08/23/24 History Cefuroxime [Ceftin] 250 mg PO BID 08/18/24 08/23/24 History Fluconazole [Diflucan] 100 mg PO DAILY 08/18/24 08/23/24 History Irbesartan [Avapro] 75 mg PO DAILY 08/18/24 08/23/24 History Metoprolol Succinate (ER) [Toprol 100 mg PO BID 08/18/24 08/23/24 History XL] Clopidogrel [Plavix] 75 mg PO DAILY 30 Days #30 tab 08/20/24 08/23/24 Rx Lacosamide [Vimpat] 50 mg PO BID 30 Days #60 tab 08/20/24 08/23/24 Rx metFORMIN HCL [Glucophage] 500 mg PO BID 30 Days #60 tab 08/20/24 08/23/24 Rx Furosemide [Lasix] 20 mg PO DAILY 08/23/24 08/23/24 History Allergies Allergy/AdvReac Type Severity Reaction Status Date / Time No Known Allergies Allergy Verified 08/23/24 14:03 Physical Exam Vitals: Vital Signs Temp Pulse Pulse Resp BP BP BP 08/25/24 10:45 65 11 L 154/70 08/25/24 10:30 61 10 L 162/67 08/25/24 10:15 62 14 144/64 08/25/24 10:00 61 14 167/65 08/25/24 09:45 62 15 145/67 08/25/24 09:44 08/25/24 09:30 67 12 151/63 08/25/24 09:15 62 12 164/72 08/25/24 09:00 61 12 175/69 08/25/24 08:45 67 12 161/72 08/25/24 08:30 66 12 168/69 08/25/24 08:15 63 12 159/62 08/25/24 08:00 98 F 60 11 L 153/71 08/25/24 07:45 57 L 12 151/62 08/25/24 07:30 61 18 172/63 08/25/24 07:15 64 12 168/71 08/25/24 07:00 58 L 14 172/62 08/25/24 06:45 55 L 8 L 165/60 08/25/24 06:30 56 L 8 L 168/56 08/25/24 06:15 60 9 L 189/65 08/25/24 06:00 57 L 9 L 08/25/24 05:45 69 14 205/80 08/25/24 05:30 67 11 L 202/103 08/25/24 05:21 63 28 H 08/25/24 03:51 98.6 F 67 16 191/67 08/25/24 03:49 98.6 F 64 16 191/67 08/25/24 02:05 99.4 F 63 16 162/74 08/25/24 00:13 99.7 F H 74 16 202/73 201/69 08/24/24 22:13 99.2 F 76 16 188/77 08/24/24 22:08 99.2 F 76 16 188/77 08/24/24 19:29 99.8 F H 82 20 203/67 08/24/24 12:21 97.6 F 72 19 164/68 Pulse Ox 08/25/24 10:45 97 08/25/24 10:30 97 08/25/24 10:15 97 08/25/24 10:00 97 08/25/24 09:45 97 08/25/24 09:44 97 08/25/24 09:30 97 08/25/24 09:15 97 08/25/24 09:00 99 08/25/24 08:45 97 08/25/24 08:30 97 08/25/24 08:15 97 08/25/24 08:00 99 08/25/24 07:45 99 08/25/24 07:30 98 08/25/24 07:15 98 08/25/24 07:00 98 08/25/24 06:45 99 08/25/24 06:30 99 08/25/24 06:15 08/25/24 06:00 96 08/25/24 05:45 98 08/25/24 05:30 97 08/25/24 05:21 08/25/24 03:51 99 08/25/24 03:49 99 08/25/24 02:05 99 08/25/24 00:13 99 08/24/24 22:13 98 08/24/24 22:08 98 08/24/24 19:29 98 08/24/24 12:21 92 L Intake and Output 08/24/24 08/25/24 08/25/24 22:59 06:59 14:59 Intake Total 9.133 Output Total 0 Balance 9.133 Intake: Intake, IV Titration 9.133 Amount Clevidipine Butyrate 25 9.133 mg In Empty Bag 1 bag @ 1 MG/HR 2 mls/hr IV .Q24H [facility] Rx#:[id number] Output: Urine 0 Other: Voiding Method Bedside Commode Bedside Commode Diaper Diaper # Voids 1 Weight 53.07 kg - Constitutional General appearance: average body habitus, no acute distress - EENT Eyes: anicteric sclerae, EOMI ENT: hearing grossly normal - Respiratory Respiratory: bilateral: CTA - Cardiovascular Rhythm: regular - Gastrointestinal General gastrointestinal: soft, no tenderness - Integumentary Integumentary: no cyanotic, no jaundiced - Neurologic lethargic - Musculoskeletal Musculoskeletal: generalized weakness Results CBC & Chem 7: 08/25/24 06:03 08/25/24 06:03 Labs: Abnormal Lab Results - Last 24 Hours (Table) 08/24/24 08/24/24 08/24/24 Range/Units 12:00 16:11 17:11 WBC (3.8-10.6) k/uL ABG pH 7.48 H (7.35-7.45) ABG pO2 115 H (83-108) mmHg ABG HCO3 32 H (21-25) mmol/L ABG Total CO2 33 H (19-24) mmol/L ABG O2 Saturation 98.9 H (94-97) % Sodium (137-145) mmol/L Chloride (98-107) mmol/L Carbon Dioxide (22-30) mmol/L BUN (7-17) mg/dL Glucose (74-99) mg/dL POC Glucose (mg/dL) 197 H 300 H (70-110) mg/dL Hemoglobin A1c (<=6.0) % 08/24/24 08/24/24 08/24/24 Range/Units 20:31 22:09 23:27 WBC (3.8-10.6) k/uL ABG pH (7.35-7.45) ABG pO2 (83-108) mmHg ABG HCO3 (21-25) mmol/L ABG Total CO2 (19-24) mmol/L ABG O2 Saturation (94-97) % Sodium 132 L (137-145) mmol/L Chloride 90 L (98-107) mmol/L Carbon Dioxide 33 H (22-30) mmol/L BUN 18 H (7-17) mg/dL Glucose 150 H (74-99) mg/dL POC Glucose (mg/dL) 233 H 170 H (70-110) mg/dL Hemoglobin A1c (<=6.0) % 08/25/24 08/25/24 08/25/24 Range/Units 05:20 06:03 06:03 WBC (3.8-10.6) k/uL ABG pH (7.35-7.45) ABG pO2 (83-108) mmHg ABG HCO3 (21-25) mmol/L ABG Total CO2 (19-24) mmol/L ABG O2 Saturation (94-97) % Sodium 131 L (137-145) mmol/L Chloride 91 L (98-107) mmol/L Carbon Dioxide (22-30) mmol/L BUN 18 H (7-17) mg/dL Glucose 168 H (74-99) mg/dL POC Glucose (mg/dL) 157 H (70-110) mg/dL Hemoglobin A1c 7.0 H (<=6.0) % 08/25/24 Range/Units 06:03 WBC 11.1 H (3.8-10.6) k/uL ABG pH (7.35-7.45) ABG pO2 (83-108) mmHg ABG HCO3 (21-25) mmol/L ABG Total CO2 (19-24) mmol/L ABG O2 Saturation (94-97) % Sodium (137-145) mmol/L Chloride (98-107) mmol/L Carbon Dioxide (22-30) mmol/L BUN (7-17) mg/dL Glucose (74-99) mg/dL POC Glucose (mg/dL) (70-110) mg/dL Hemoglobin A1c (<=6.0) % CT scan - chest: report reviewed CT Scan - head: report reviewed Assessment and Plan (1) Hypertension Current Visit: Yes Status: Acute Code(s): I10 - ESSENTIAL (PRIMARY) H YPERTENSION SNOMED Code(s): 44363340 (2) UTI (urinary tract infection) Current Visit: Yes Status: Acute Code(s): N39.0 - URINARY TRACT INFECTION, SITE NOT SPECIFIED SNOMED Code(s): 25789301 (3) Weakness Current Visit: Yes Status: Acute Priority: High Code(s): R53.1 - WEAKNESS SNOMED Code(s): 49477636 (4) Lung cancer Current Visit: No Status: Chronic Priority: High Code(s): C34.90 - MALIGNANT NEOPLASM OF UNSP PART OF UNSP BRONCHUS OR LUNG SNOMED Code(s): 314015947 Plan: Weakness, confusion: Presented with generalized weakness, confusion and HTN. Per daughter pt has had multiple TIAs over the last 1 year with intermittent uncontrolled hypertension, BP at times greater than 250 systolically. Upon admission patient started experiencing right sided headache and eye pain with left-sided weakness. -CT head w/o contrast showed no acute intracranial processes. CTA head and neck revealed no evidence of acute intracranial hemorrhage, mass effect or midline shift. Ventricles, sulci, and cisterns are unremarkable. -Pt being treated for suspected UTI -Neurology following NSCLC -History of early stage non-small cell lung cancer in 2011 in [place] and had SBRT at that time. She had a CAT scan of the chest and a bone scan in March 2020 with no evidence of recurrence. She follows with her pulm onologist Dr. Koch in regards to this history. She was seen on consult at [facility] in 03/[address] of the neck and chest showed multiple lung nodules. She had repeat PET scan in which showing increasing size and SUV in bilateral lung nodules,hilar and mediastinal nodes, concerning for metastatic disease. -She was seen by Dr. Patel, and it was discussed, ideally a tissue biopsy would be considered to r/o new lung primary vs recurrence of her previous lung cancer, however, pt declined biopsy and due to her poor PS it may not permit a CT guided or bronchoscopic biopsy. -At her last clinic f/u last month pt stated she would not want systemic chemo, but would be amendable to oral targeted therapy. A liquid biopsy was obtained, however, no targeted therapies were found. She was considering comfort care measures at that time, and stated she would call the clinic if she wanted to pursue further workup with tissue biopsy. -Case discussed with pulmonology today, biopsy could be obtained by EBUS, once pt recovered from acute condition. However, as previously stated pt had initially declined bronch/biopsy. If she wishes to pursue further workup, we can order additional testing with NGS/PDL-1 to further discuss potential treatment options Discussed findings and POC with pt and family. They stated they would call clinic if they wanted any further workup, and would not like to schedule clinic f/u at this time Doctor attests: I performed a history and physical examination of this patient, developed impression and plan of care. Discussed with dictator. I agree with dictators note, documented as a scribe.
[2024-08-25] MEDS: Lacosamide IV (ages 17+ yrs) 200 MG/20 ML ML IVP SCH (17:51)
[2024-08-25 20:15] LABS: Glucose,Whole Blood 91 mg/dL (70-110)
--- NOTE | 2024-08-25 20:15 | P.CNPUL ---
History of Present Illness Consult date: 08/25/24 History of present illness: This is a 84-year-old female patient with transferred to the intensive care unit for an acute hyper tensive emergency. The patient is known to have COPD, lung mass that was treated with SBRT in the past and subsequently her condition has progressed and the patient has bilateral pulmonary nodules at this point and this has been confirmed on an earlier PET/CT. Tissue diagnosis has been established on this patient. The patient has been having episodes of TIA. She was recently admitted on 08/17/2024 for acute confusion, aphasia, difficulty in finding words and headaches. At that time, the patient was further investigated, she clinically improved and she was discharged home on 08/20/2024 and the patient has been taking a combination of aspirin and anticoagulation with Eliquis with the patient has history of paroxysmal atrial fibrillation. Previous neurologic evaluation was done. The patient underwent a carotid Dopplers that showed bilateral moderate carotid plaques and there was no evidence of a hemodynamically significant stenosis on the right. There was approximately 50 to 69% stenosis of the left extending to the left proximal internal carotid artery. CTA of the head and the neck was done that shows stable moderate to severe focal plaquing involving the proximal left ICA and the area of stenosis was in the order of 60%. CAT scan of the brain showed no evidence of any acute intracranial hemorrhage or midline shift. The LDL cholesterol was 53. TSH was 1.38 and the patient had another CAT scan of the chest prior to discharge that showed no evidence of any acute intracranial process, possibility of a remote regular injury along with advanced nonspecific white matter ischemic changes were noted. The patient was unable to do an MRI due to her having a pacemaker. She was receiving antiepileptic in the past and based on that, the patient was restarted on Vimpat 50 mg p.o. twice daily. She was kept on aspirin and combination with anticoagulation with Eliquis. As the patient regained neurologic recovered, she was given diagnosis of TIA. The patient was doing well at home. However, her condition and decompensated and she developed difficulties in talking and for that reason she was brought into the hospital. Overnight, the patient developed also headache and an acute hypertensive emergency where her blood pressure was noted to be quite elevated and she developed a systolic blood pressure above 200. Based on that, the patient got transferred to the intensive care unit and she was started on a Cleviprex drip for blood pressure control the Cleviprex is currently running at 2 mg an hour. Neurology was again consulted. A repeat CT scan of the brain that was done on 08/24/2024, showed no acute intracranial process and repeat CT angiogram of the c of the head showed no evidence of any dissection of cervical internal carotid arteries or vertebral arteries. No evidence of any significant stenosis. No evidence of any intracranial high-grade stenosis or aneurysm. There was a dominant left vertebral artery system. Furthermore, no seizure activity has been described or noted by the medical staff. I evaluated this patient in the ICU this morning. Her blood pressure was under better control. Noted severe avoiding a abrupt drop in the blood pressure or aggressive antihypertensive treatment. The patient is currently on Cleviprex running at 2 mg an hour and the patient is also on metoprolol 50 mg p.o. twice a day and Cozaar 25 mg p.o. daily. According to the family, the patient is having significant fluctuation in her blood pressure with episodes of acute hypertensive reactions. No focal neurological deficits. The patient is lethargic. She is able to communicate. Her current cardiac rhythm is sinus. She has a permanent pacemaker in place. She is also known to have coronary artery disease with previous PCI to circumflex. She has sick sinus syndrome with previous pacemaker insertion. Blood work is essentially within normal limits. Procalcitonin level is at 0.05. She is currently on 2 L of oxygen by nasal cannula. Review of Systems A 14 point review of system was done and the positive findings mentioned above in history of present illness. Majority of information was obtained from the daughter at the bedside. Past Medical History Past Medical History: Atrial Fibrillation, Cancer (Lung cancer, treated with radiation/SBRT), Heart Failure, COPD, CVA/TIA, Diabetes Mellitus, Deep Vein Thrombosis (DVT), Fibromyalgia, GERD/Reflux, Hyperlipidemia, Hypertension, Osteoarthritis (OA), Pneumonia, Sleep Apnea/CPAP/BIPAP, Vascular Disorder Additional Past Medical History / Comment(s): back pain , lung cancer-radiation opnly, HOME 02 2 LITERS N/C, BLOOD CLOT AFTER SX, CVA LT SIDE AFFECTED SINCE RESOLVED, HIATAL HERNIA. SHINGLES 30 YEARS AGO, DOES'NT USE CPAP MACHINE.in past for short period of time took oral meds for dm-then taken off meds-pt stated not considered diabetic now but occ will check bs., macular degeneration.past broken rt leg and lt wrist. Raynauds. Pt currently has 3 fractured ribs on the right that she has "had for years and will not heal". History of Any Multi-Drug Resistant Organisms: MRSA Date of last positivie culture/infection: 09/25/16 MDRO Source:: BRONCH WASH Past Surgical History: Cholecystectomy, Heart Catheterization With Stent, Ort hopedic Surgery Additional Past Surgical History / Comment(s): rt leg repaired after break-has pins, lt wrist-plate and screws. lung bx, stents tung groins. Past Anesthesia/Blood Transfusion Reactions: Family History of Problems w/ Anesthesia Additional Past Anesthesia/Blood Transfusion Reaction / Comment(s): daughter has diff waking after aa Date of Last Stent Placement:: unk Type of Cardiac Device: Permanent Pacemaker Device Placement Date:: 09/25/20 Smoking Status: Former smoker - Past Family History Father Family Medical History: Congestive Heart Failure (CHF), COPD Additional Family Medical History / Comment(s): emphysema Mother Family Medical History: Cancer Medications and Allergies Home Medications Medication Instructions Recorded Confirmed Type Fluticasone/Umeclidin/Vilanter 1 puff INHALATION RT-DAILY 04/19/20 08/23/24 History [Trelegy Ellipta 100-62.5-25] Pantoprazole Sodium [Protonix] 20 mg PO DAILY 12/01/22 08/23/24 History Apixaban [Eliquis] 5 mg PO BID 04/07/24 08/23/24 History Mirtazapine [Remeron] 15 mg PO HS 04/07/24 08/23/24 History Atorvastatin [Lipitor] 80 mg PO HS 06/21/24 08/23/24 History predniSONE 5 mg PO DAILY 06/21/24 08/23/24 History traMADol HCL 50 mg PO Q6H PRN 3 Days #12 tab 06/24/24 08/23/24 Rx ALPRAZolam [Xanax] 0.25 mg PO TID PRN 08/18/24 08/23/24 History Cefuroxime [Ceftin] 250 mg PO BID 08/18/24 08/23/24 History Fluconazole [Diflucan] 100 mg PO DAILY 08/18/24 08/23/24 History Irbesartan [Avapro] 75 mg PO DAILY 08/18/24 08/23/24 History Metoprolol Succinate (ER) [Toprol 100 mg PO BID 08/18/24 08/23/24 History XL] Clopidogrel [Plavix] 75 mg PO DAILY 30 Days #30 tab 08/20/24 08/23/24 Rx Lacosamide [Vimpat] 50 mg PO BID 30 Days #60 tab 08/20/24 08/23/24 Rx metFORMIN HCL [Glucophage] 500 mg PO BID 30 Days #60 tab 08/20/24 08/23/24 Rx Furosemide [Lasix] 20 mg PO DAILY 08/23/24 08/23/24 History Allergies Allergy/AdvReac Type Severity Reaction Status Date / Time No Known Allergies Allergy Verified 08/23/24 14:03 Physical Exam Vitals: Vital Signs Temp Pulse Pulse Resp BP BP BP 08/25/24 09:44 08/25/24 08:45 67 12 161/72 08/25/24 08:30 66 12 168/69 08/25/24 08:15 63 12 159/62 08/25/24 08:00 98 F 60 11 L 153/71 08/25/24 07:45 57 L 12 151/62 08/25/24 07:30 61 18 172/63 08/25/24 07:15 64 12 168/71 08/25/24 07:00 58 L 14 172/62 08/25/24 06:45 55 L 8 L 165/60 08/25/24 06:30 56 L 8 L 168/56 08/25/24 06:15 60 9 L 189/65 08/25/24 06:00 57 L 9 L 08/25/24 05:45 69 14 205/80 08/25/24 05:30 67 11 L 202/103 08/25/24 05:21 63 28 H 08/25/24 03:51 98.6 F 67 16 191/67 08/25/24 03:49 98.6 F 64 16 191/67 08/25/24 02:05 99.4 F 63 16 162/74 08/25/24 00:13 99.7 F H 74 16 202/73 201/69 08/24/24 22:13 99.2 F 76 16 188/77 08/24/24 22:08 99.2 F 76 16 188/77 08/24/24 19:29 99.8 F H 82 20 203/67 08/24/24 12:21 97.6 F 72 19 164/68 Pulse Ox 08/25/24 09:44 97 08/25/24 08:45 97 08/25/24 08:30 97 08/25/24 08:15 97 08/25/24 08:00 99 08/25/24 07:45 99 08/25/24 07:30 98 08/25/24 07:15 98 08/25/24 07:00 98 08/25/24 06:45 99 08/25/24 06:30 99 08/25/24 06:15 08/25/24 06:00 96 08/25/24 05:45 98 08/25/24 05:30 97 08/25/24 05:21 08/25/24 03:51 99 08/25/24 03:49 99 08/25/24 02:05 99 08/25/24 00:13 99 08/24/24 22:13 98 08/24/24 22:08 98 08/24/24 19:29 98 08/24/24 12:21 92 L Intake and Output 08/24/24 08/25/24 08/25/24 22:59 06:59 14:59 Output Total 0 Balance 0 Output: Urine 0 Other: Voiding Method Bedside Commode Diaper # Voids 1 Weight 53.07 kg The patient appeared well nourished and normally developed. Vital signs as documented. Head exam is unremarkable. No scleral icterus or corneal arcus noted. Neck is without jugular venous distension, thyromegaly, or carotid bruits. Carotid upstrokes are brisk bilaterally. Lungs are clear to auscultation and percussion. Cardiac exam reveals the PMI to be normally sized and situated. Rhythm is regular. First and second heart sounds normal. No murmurs, rubs or gallops. Abdominal exam reveals normal bowel sounds, no masses, no organomegaly and no aortic enlargement. Extremities are nonedematous and both femoral and pedal pulses are normal. Examination of the skin revealed no evidence of significant rashes, suspicious appearing nevi or other concerning lesions. Neurologically, the patient is awake and alert and the patient does not have any focal neurological deficit. Cranial nerves are essentially intact. Results - Laboratory Findings CBC and BMP: 08/25/24 06:03 08/25/24 06:03 ABG ABG pH 7.48 (7.35-7.45) H 08/24/24 16:11 ABG pCO2 43 mmHg (35-45) 08/24/24 16:11 ABG pO2 115 mmHg (83-108) H 08/24/24 16:11 ABG O2 Saturation 98.9 % (94-97) H 08/24/24 16:11 PT/INR, D-dimer PT 12.0 sec (10.0-12.5) 08/23/24 14:35 INR 1.1 (<1.2) 08/23/24 14:35 Abnormal lab findings: Abnormal Labs 08/23/24 08/23/24 08/23/24 14:35 14:35 19:00 WBC 16.2 H Neutrophils # 13.2 H ABG pH ABG pO2 ABG HCO3 ABG Total CO2 ABG O2 Saturation Sodium 136 L Chloride 93 L Carbon Dioxide 34 H BUN 36 H Creatinine 1.30 H Glucose 228 H POC Glucose (mg/dL) Hemoglobin A1c Total Protein TSH 5.220 H Urine Protein Trace H Urine Glucose (UA) 4+ H Ur Leukocyte Esterase Small H Urine Mucus Rare H 08/23/24 08/24/24 08/24/24 21:55 04:32 04:32 WBC 11.7 H Neutrophils # ABG pH ABG pO2 ABG HCO3 ABG Total CO2 ABG O2 Saturation Sodium 136 L Chloride Carbon Dioxide BUN 26 H Creatinine Glucose 154 H POC Glucose (mg/dL) 152 H Hemoglobin A1c Total Protein 6.0 L TSH Urine Protein Urine Glucose (UA) Ur Leukocyte Esterase Urine Mucus 08/24/24 08/24/24 08/24/24 07:03 12:00 16:11 WBC Neutrophils # ABG pH 7.48 H ABG pO2 115 H ABG HCO3 32 H ABG Total CO2 33 H ABG O2 Saturation 98.9 H Sodium Chloride Carbon Dioxide BUN Creatinine Glucose POC Glucose (mg/dL) 136 H 197 H Hemoglobin A1c Total Protein TSH Urine Protein Urine Glucose (UA) Ur Leukocyte Esterase Urine Mucus 08/24/24 08/24/24 08/24/24 17:11 20:31 22:09 WBC Neutrophils # ABG pH ABG pO2 ABG HCO3 ABG Total CO2 ABG O2 Saturation Sodium Chloride Carbon Dioxide BUN Creatinine Glucose POC Glucose (mg/dL) 300 H 233 H 170 H Hemoglobin A1c Total Protein TSH Urine Protein Urine Glucose (UA) Ur Leukocyte Esterase Urine Mucus 08/24/24 08/25/24 08/25/24 23:27 05:20 06:03 WBC Neutrophils # ABG pH ABG pO2 ABG HCO3 ABG Total CO2 ABG O2 Saturation Sodium 132 L Chloride 90 L Carbon Dioxide 33 H BUN 18 H Creatinine Glucose 150 H POC Glucose (mg/dL) 157 H Hemoglobin A1c 7.0 H Total Protein TSH Urine Protein Urine Glucose (UA) Ur Leukocyte Esterase Urine Mucus 08/25/24 08/25/24 06:03 06:03 WBC 11.1 H Neutrophils # ABG pH ABG pO2 ABG HCO3 ABG Total CO2 ABG O2 Saturation Sodium 131 L Chloride 91 L Carbon Dioxide BUN 18 H Creatinine Glucose 168 H POC Glucose (mg/dL) Hemoglobin A1c Total Protein TSH Urine Protein Urine Glucose (UA) Ur Leukocyte Esterase Urine Mucus Assessment and Plan Plan: Acute neurologic deficits, recurrent, suggestive of a TIA. Possibility of an acute hypertensive encephalopathy cannot be completely ruled out. Noted, the patient has had no clear indication for any seizure activity. Carotid Dopplers earlier showed left ICA stenosis in the order of 60%. Nevertheless, the repeat CT angiogram of the brain that was done on 08/24/2024 shows no evidence of any c ritically significant stenosis involving the intracranial arteries. No evidence of any bleeding. Cardiac rhythm is sinus at this point. History of seizure activity Hypertension with labile blood pressure. The patient has an acute hypertensive emergency overnight and the patient got transferred to the intensive care unit. The patient is currently on a combination of Cozaar and metoprolol and the patient is on a Cleviprex drip. Lung masses, bilateral, suggestive of advanced disease. The patient was given SBRT in the past. Most recent PET/CT done on this patient on May 2024 showed bilateral lung nodules and hilar and mediastinal lymphadenopathy consistent with metastatic disease. A tissue biopsy has not been established due to her advanced COPD and poor baseline performance and functional status. As such, the patient has not been offered any further treatment. Coronary artery disease with previous PCI and stenting of the circumflex. Presents on function with an ejection fraction of 55% without any significant valvular heart disease based on echocardiogram from May 2024 History of sick sinus syndrome, post pacemaker insertion Paroxysmal atrial fibrillation, current rhythm is sinus and the patient is currently on anticoagulation with Eliquis Hyperlipidemia Former smoker COPD which is currently inactive and stable Previous history of DVT Fibromyalgia Acid reflux Obstructive sleep apnea Peripheral vascular disease Macular degeneration Plan Will consult with neurology regarding ongoing recurrent neurologic events Patient was taken off the aspirin and patient is currently on Plavix 75 mg p.o. daily Continue anticoagulation with Eliquis 2.5 mg p.o. twice daily Continue Vimpat Wean off Cleviprex drip and discontinue Blood pressure control with a combination of metoprolol 50 mg p.o. twice daily and losartan 25 mg p.o. daily Continue maintenance of prednisone 5 mg p.o. daily. Continue Lipitor 40 mg p.o. daily Check CT of the renal arteries Check serum metanephrine levels Consider HUE Will continue to follow.
[2024-08-25] MEDS: ATORVASTATIN 40 MG TAB PO SCH (20:32)
--- NOTE | 2024-08-25 23:46 | EEG ---
ELECTROENCEPHALOGRAM REPORT PREAMBLE: This is an 84-year-old female with recurrent TIA versus seizures. This study is performed to evaluate for any epileptiform activity. EEG FINDINGS: This is a 21-channel digital EEG recorded with video component, utilizing 10/20 international system with referential and bipolar montages. This is a prolonged study performed for 1 hour. The recording start time is 11:25 a.m. on 08/25/2024 and recording end time is 12:29 p.m. on 08/25/2024. The recording starts with presence of disorganized, high amplitude mixed theta and delta slowing seen in bihemispheric region, along with presence of frequent triphasic waves. Subsequently some periods of suppression for 1 second were seen intermittently as well. Photic driving response was not seen. There were just some brief periods of relatively normal appearing background consisting of 8 to 9 hertz posterior dominant, reactive to eye opening and closing. Some stage 2 sleep were also seen during end part of the study with presence of sleep spindles and vertex waves. No definitive focal or generalized epileptiform activity was seen. No electrographic seizure was recorded. IMPRESSION: This is an abnormal EEG due to background slowing and disorganization of at least moderate degree. There were also some brief periods of generalized suppression lasting for 1 second, and sporadic appearance of triphasic waves. Constellation of these features are suggestive of generalized cerebral dysfunction as can be seen with toxic metabolic encephalopathy. Clinical correlation is recommended. No focal or generalized epileptiform activity was seen. No electrographic seizure was recorded. MMODL / IJN: [id number] /
--- NOTE | 2024-08-25 23:54 | CT ---
INDICATION: Patient age:Female; 84 years old; Reason for study: hypertension; PHH. COMPARISON: PET/CT 06/16/2024 TECHNIQUE: Multiple thin slice sub-millimeter images were obtained through the abdomen before and aft er administration of contrast. Patient was given Isovue 370, 75 cc intravenously. 3-D reconstructed images and maximum intensity projection images were obtained of the dominant aorta and its branches. One or more CT dose reduction strategies were utilized during this examination. DLP administered was 555 mGycm. FINDINGS: CTA Abdomen: The abdominal aorta does not demonstrate aneurysmal dilatation. Moderate atheroscleroti c plaquing is identified within the abdominal aorta. No evidence for intramural hematoma or dissectio n. The origins of the superior mesenteric artery, renal arteries, inferior mesenteric artery, and belkis iac axis are patent. Mild stenosis of the origin of the celiac axis. No significant stenosis at the o rigin of the SMA. At least mild stenosis of the origin of the ELIAS. No significant stenosis at the or igins of the bilateral single renal arteries. Mild stenosis involving the right common iliac artery. Left common iliac artery patent stent identified. VISCERA ABDOMEN: Liver: Unremarkable. Gallbladder and Bile ducts: The gallbladder is surgically absent. No biliary ductal dilatation. Pancreas: Unremarkable. Spleen: Unremarkable. Adrenal glands: Unremarkable. Kidneys and Ureters: No hydronephrosis or renal calculus. Few left renal cysts with largest measuring up to 2.6 cm. Additional tiny bilateral subcentimeter cortical renal probable cysts. Stomach and Bowel: No evidence of bowel obstruction or bowel wall thickening. Distal colonic divertic ulosis without evidence for acute diverticulitis. The appendix is within normal limits. Peritoneum: No evidence of pneumoperitoneum, free fluid, or adenopathy. Musculoskeletal: The osseous structures appear intact. Diffuse bone demineralization. Grade 1 anterol isthesis of L4 and L5 without evidence of pars defects. Multilevel degenerative disc disease. This is most pronounced at L5-S1. LOWER CHEST: Bilateral lower lobe subpleural reticulation. Centrilobular emphysematous changes. Stabl e right lower lobe subpleural 6.7 mm pulmonary nodule. Partial visualization of cardiac pacemaking le ads. IMPRESSION: 1. No evidence of vascular occlusion. 2. Moderate atherosclerotic disease involving the abdominal aorta and its branches. Mild stenosis at the origin of the celiac axis. No significant stenosis involving the bilateral renal arteries. 3. Colonic diverticulosis without evidence for acute diverticulitis. 4. COPD changes with stable right lower lobe 6.7 mm pulmonary nodule from CT chest. Consider follow-u p CT chest in 3 months. [facility], , 08/25/2024 11:52 PM
[2024-08-26 04:12] LABS: Basophils % (A) 0 %; Eosinophils # (A) 0.1 k/uL (0-0.7); Eosinophils % (A) 1 %; HCT 37.3 % (34.0-46.0); HGB 11.9 gm/dL (11.4-16.0); Hypochromasia Slight; Lymphocytes # (A) 2.1 k/uL (1.0-4.8); Lymphocytes % (A) 19 %; MCH 29.1 pg (25.0-35.0); MCHC 31.8 g/dL (31.0-37.0); MCV 91.6 fL (80.0-100.0); Monocytes # (A) 0.7 k/uL (0-1.0); Monocytes % (A) 6 %; Neutrophils # (A) 8.1 k/uL (1.3-7.7); Neutrophils % (A) 72 %; Platelet Count 195 k/uL (150-450); RBC 4.07 m/uL (3.80-5.40); RDW 13.5 % (11.5-15.5); WBC 11.2 k/uL (3.8-10.6)
[2024-08-26 04:58] LABS: African American GFR (CKD) 75 (>60 ml/min/1.73 sqM); Anion Gap 6 mmol/L; Blood Urea Nitrogen 22 mg/dL (7-17); Calcium 9.1 mg/dL (8.4-10.2); Carbon Dioxide 35 mmol/L (22-30); Chloride 91 mmol/L (98-107); Glucose 158 mg/dL (74-99); Magnesium 1.6 mg/dL (1.6-2.3); Non-African American GFR(CKD) 65 (>60 ml/min/1.73 sqM); Potassium 3.3 mmol/L (3.5-5.1); Sodium 132 mmol/L (137-145)
[2024-08-26] MEDS ORDERED: Potassium Replacement Protocol 1 EACH MISC MISCELLANE PRN (05:49)
[2024-08-26] MEDS ORDERED: Magnesium Replacement Protocol 1 EACH MISC MISCELLANE PRN (05:50)
[2024-08-26] MEDS: MAGNESIUM SULFATE-D5W PMX 1 GM in DEXTROSE/WATER 1 100ML.BAG IVPB SCH (05:59)
[2024-08-26] MEDS: POTASSIUM CHLORIDE 10 MEQ in WATER FOR INJECTION 1 100ML.BAG IVPB SCH (06:00)
[2024-08-26 06:22] LABS: Glucose,Whole Blood 196 mg/dL (70-110)
--- NOTE | 2024-08-26 09:19 | P.PN ---
Subjective Progress Note Date: 08/25/24 This is an 84-year-old female who follows with Dr. Estrada in the outpatient setting who presented to the emergency department with increased weakness.'s of confusion with uncontrolled blood pressure and generally not feeling well. Patient was recently admitted last week and discharged with TIA recommending outpatient follow-up with her neurologist. Patient does have significant past medical history of atrial fibrillation, COPD, CVA with TIA, heart failure, diabetes mellitus, previous history of DVT, sleep apnea and does not use a CPAP, chronic hypoxic respiratory failure maintained on 2 to 3 L outpatient, fibromyalgia, hyperlipidemia, hypertension. Patient has been hospitalized frequently for continued ongoing complex medical issues. Patient also with weakness would like to go to rehab for strength mobility. Case management is following and was working on ECF and will require 3 night stay hospitalization according to Medicare guidelines. Apparently patient was having an episode of unresponsiveness and altered mentation and code stroke was called and patient was brought to the ICU as a stepdown overflow as there are no beds available on 3 S. Patient undergoing extensive neurological workup and currently undergoing EEG this morning. Report is pending at this time. Patient also does have history of seizures and follows with neurology outpatient. Review of systems: Constitutional: reports of fatigue, no fever, or chills Cardiovascular: No reports of chest pain reports of occasional palpitations Respiratory: No reports of shortness of breath or cough GI: reports of nausea, no reports of vomiting, no reports of diarrhea : No reports of dysuria or retention Neurovascular: reports of generalized weakness, and persistent headache All medications have been reviewed Active Medications Acetaminophen (Acetaminophen Tab 325 Mg Tab) 650 mg PO Q6HR PRN PRN Reason: Fever and/ or Pain Last Admin: 08/25/24 16:59 Dose: 650 mg Alprazolam (Alprazolam 0.25 Mg Tab) 0.25 mg PO TID PRN PRN Reason: Anxiety Last Admin: 08/25/24 01:16 Dose: 0.25 mg Apixaban (Apixaban 2.5 Mg Tablet) 2.5 mg PO BID LETICIA; Protocol Last Admin: 08/26/24 08:34 Dose: 2.5 mg Artificial Tears (Artificial Tears-Hypromellose Drops 15 Ml Btl) 2 drops BOTH EYES QID PRN PRN Reason: Dry Eye(s) Atorvastatin Calcium (Atorvastatin 40 Mg Tab) 40 mg PO HS [facility] Last Admin: 08/25/24 20:32 Dose: 40 mg Clopidogrel Bisulfate (Clopidogrel 75 Mg Tab) 75 mg PO DAILY [facility] Last Admin: 08/26/24 08:34 Dose: 75 mg Dextrose/Water (Dextrose 50% Syringe 50 Ml) 25 ml IVP PER PROTOCOL PRN; Protocol PRN Reason: Hypoglycemia Dextrose/Water (Dextrose 50% Syringe 50 Ml) 50 ml IVP PER PROTOCOL PRN; Protocol PRN Reason: Hypoglycemia Hydromorphone HCl (Hydromorphone 0.5 Mg/0.5 Ml Syringe) 0.5 mg IVP Q2HR PRN PRN Reason: Pain Last Admin: 08/25/24 04:44 Dose: 0.5 mg Sodium Chloride (Saline 0.9%) 1,000 mls @ 60 mls/hr IV .[id number] [facility] Last Admin: 08/25/24 20:33 Dose: 60 mls/hr Ceftriaxone Sodium 1 gm/ (Sodium Chloride) 50 mls @ 100 mls/hr IVPB Q24HR [facility]; Protocol Last Admin: 08/26/24 08:34 Dose: 100 mls/hr Clevidipine 25 mg/ IV Solution 50 mls @ 2 mls/hr IV .Q24H [facility]; Protocol Last Admin: 08/26/24 05:47 Dose: Not Given Potassium Chloride 10 meq/ IV (Solution) 100 mls @ 100 mls/hr IVPB Q1HR [facility]; Protocol Stop: 08/26/24 09:59 Last Admin: 08/26/24 08:35 Dose: 100 mls/hr Insulin Human Lispro (Insulin Lispro (Humalog) 100 Unit/Ml 10 Ml Vl) 0 unit SQ ACHS [facility]; Protocol Last Admin: 08/25/24 20:34 Dose: Not Given Lacosamide (Lacosamide Iv (Ages 17+ Yrs) 200 Mg/20 Ml Ml) 100 mg IVP BID@0600,1800 [facility] Last Admin: 08/26/24 05:16 Dose: 100 mg Losartan Potassium (Losartan 25 Mg Tab) 25 mg PO DAILY [facility] Last Admin: 08/26/24 08:37 Dose: 25 mg Metoprolol Succinate (Metoprolol Succinate (Er) 50 Mg Tab.Er.24h) 50 mg PO BID [facility] Last Admin: 08/26/24 08:37 Dose: 50 mg Mirtazapine (Mirtazapine 15 Mg Tab) 15 mg PO HS [facility] Last Admin: 08/25/24 21:53 Dose: 15 mg Miscellaneous Information (Potassium Replacement Protocol 1 Each Misc) 1 each MISCELLANE DAILY PRN; Protocol PRN Reason: Per Protocol Miscellaneous Information (Magnesium Replacement Protocol 1 Each Misc) 1 each MISCELLANE DAILY PRN; Protocol PRN Reason: Per Protocol Morphine Sulfate (Morphine Sulfate 4 Mg/Ml Syringe) 4 mg IV Q4HR PRN PRN Reason: Severe Pain (Scale 7 to 10) Naloxone HCl (Naloxone 0.4 Mg/Ml 1 Ml Vial) 0.2 mg IV Q2M PRN PRN Reason: Opioid Reversal Ondansetron HCl (Ondansetron 4 Mg/2 Ml Vial) 4 mg IVP Q8HR PRN PRN Reason: Nausea And Vomiting Last Admin: 08/25/24 05:30 Dose: 4 mg Pantoprazole Sodium (Pantoprazole 40 Mg Tablet) 40 mg PO AC-[id number] [facility] Last Admin: 08/25/24 07:05 Dose: Not Given Prednisone (Prednisone 5 Mg Tab) 5 mg PO DAILY [facility] Last Admin: 08/26/24 08:37 Dose: 5 mg PHYSICAL EXAMINATION: GENERAL: The patient is alert and oriented x3, Well developed, ill-appearing, elderly appearing, thin built HEENT: Pupils are round and equally reacting to light. EOMI. no scleral icterus. No conjunctival pallor. Normocephalic, atraumatic. No pharyngeal erythema. No thyromegaly. CARDIOVASCULAR: S1 and S2 muffled, irregular PULMONARY: diminished breath sounds bilaterally with no wheezing or rhonchi noted. ABDOMEN: soft. Nontender on exam. Thin. non-distended, normoactive bowel sounds. No palpable organomegaly. MUSCULOSKELETAL: No joint swelling or deformity. EXTREMITIES: No cyanosis, clubbing, or pedal edema. NEUROLOGICAL: Gross neurological examination did not reveal any focal deficits. Diffuse weakness SKIN: No rashes. Assessment: Generalized weakness and fatigue, rule out sepsis or postobstructive pneumonia History of lung cancer on the right, left upper lobe pulmonary nodule on CTA, castro spicious for neoplasm History of TIA recently Hypertension history, uncontrolled Hyperlipidemia Recurrent episodes of lethargy, difficulty walking and talking with period of unresponsiveness, code stroke was activated, rule out TIA versus seizures Left ICA stenosis 60% on CTA, consult vascular Chronic obstructive pulmonary disease, not in exacerbation Chronic hypoxic respiratory failure secondary to above, maintained on 2 L History of permanent pacemaker History of sleep apnea, does not use a CPAP Congestive heart failure history, unknown EF History of atrial fibrillation Diabetes mellitus, type II History of DVT History of fibromyalgia Former smoker GI prophylaxis DVT prophylaxis Full code Plan: Recommend to continue with current medications and management with multiple consultations following. Neurology following undergoing workup for TIA versus seizures as patient had episode of increased unresponsiveness with concerns of TIA versus seizure with history of both currently receiving an EEG today Patient with noted ICA stenosis was seen and evaluated by vascular surgery on last admission will reconsult and appreciate input and recommendations Continue telemetry monitoring and patient is in the ICU although is a 3 S. overflow hold as there is no beds available on this unit. Patient evaluated by PT/OT therapy recommending rehab and patient is agreeable as patient has had extensive weakness. Will continue monitoring closely and adjust medications accordingly. Will discuss with multiple consultations regarding discharge planning to ECF. Patient will require 3 night hospitalization and insurance authorization for ECF. [facility] has accepted the patient pending authorization and 3 night stay. Due to multiple complex medical issues, overall prognosis is guarded. The impression and plan of care has been dictated by Adrianna Arguelles, nurse practitioner as directed. Dr. Ramone MD I have performed a history and examination and MDM of this patient, discussed the same with the dictator, and agree with the dictator's assessment and plan as written ,documented as a scribe. Based on total visit time, I have performed more than 50% of the visit. Any additional findings or plans will be noted. Objective - Vital Signs Vital signs: Vital Signs Temp 98 F 08/25/24 08:00 Pulse 65 08/25/24 10:45 Resp 11 L 08/25/24 10:45 BP 154/70 08/25/24 10:45 Pulse Ox 97 08/25/24 10:45 FiO2 Intake & Output 08/24/24 08/25/24 08/25/24 18:59 06:59 18:59 Intake Total 9.133 Output Total 1000 0 Balance -1000 9.133 Weight 53.07 kg Intake: Intake, IV Titration 9.133 Amount Clevidipine Butyrate 25 9.133 mg In Empty Bag 1 bag @ 1 MG/HR 2 mls/hr IV .Q24H [facility] Rx#:[id number] Output: Urine 1000 0 Straight 1000 Other: Voiding Method Bedside Commode Bedside Commode Bedside Commode Diaper Diaper # Voids 1 - Labs CBC & Chem 7: 08/26/24 03:50 08/26/24 03:50 Labs: Abnormal Lab Results - Last 24 Hours (Table) 08/24/24 08/24/24 08/24/24 Range/Units 16:11 17:11 20:31 WBC (3.8-10.6) k/uL ABG pH 7.48 H (7.35-7.45) ABG pO2 115 H (83-108) mmHg ABG HCO3 32 H (21-25) mmol/L ABG Total CO2 33 H (19-24) mmol/L ABG O2 Saturation 98.9 H (94-97) % Sodium (137-145) mmol/L Chloride (98-107) mmol/L Carbon Dioxide (22-30) mmol/L BUN (7-17) mg/dL Glucose (74-99) mg/dL POC Glucose (mg/dL) 300 H 233 H (70-110) mg/dL Hemoglobin A1c (<=6.0) % 08/24/24 08/24/24 08/25/24 Range/Units 22:09 23:27 05:20 WBC (3.8-10.6) k/uL ABG pH (7.35-7.45) ABG pO2 (83-108) mmHg ABG HCO3 (21-25) mmol/L ABG Total CO2 (19-24) mmol/L ABG O2 Saturation (94-97) % Sodium 132 L (137-145) mmol/L Chloride 90 L (98-107) mmol/L Carbon Dioxide 33 H (22-30) mmol/L BUN 18 H (7-17) mg/dL Glucose 150 H (74-99) mg/dL POC Glucose (mg/dL) 170 H 157 H (70-110) mg/dL Hemoglobin A1c (<=6.0) % 08/25/24 08/25/24 08/25/24 Range/Units 06:03 06:03 06:03 WBC 11.1 H (3.8-10.6) k/uL ABG pH (7.35-7.45) ABG pO2 (83-108) mmHg ABG HCO3 (21-25) mmol/L ABG Total CO2 (19-24) mmol/L ABG O2 Saturation (94-97) % Sodium 131 L (137-145) mmol/L Chloride 91 L (98-107) mmol/L Carbon Dioxide (22-30) mmol/L BUN 18 H (7-17) mg/dL Glucose 168 H (74-99) mg/dL POC Glucose (mg/dL) (70-110) mg/dL Hemoglobin A1c 7.0 H (<=6.0) %
--- NOTE | 2024-08-26 10:16 | P.PN ---
Subjective Progress Note Date: 08/25/24 Patient was seen for follow-up. Patient's daughter Karen, and patient's son-in-law were also present. Patient is very somnolent. Patient had a stroke code activated last night at 10:10 PM. Patient was noted to have left facial droop. Nursing staff discussed with interventional neurologist Dr. Ferrari, who recommended CT and CTA of head and neck. Patient's symptoms improve, then at 3:44 AM, patient has repeat neuro deficits. Patient was transferred to [facility]. Patient was given Vimpat 200 mg IV times loading dose followed by Vimpat 100 mg IV twice a day. Patient prior to this was on Vimpat 50 mg twice a day. CT head showed no acute intracranial process. Nonspecific white matter changes, likely secondary to chronic small vessel ischemic disease. CTA of head and neck reported no evidence of dissection of the cervical internal carotid arteries or vertebral arteries. No evidence of significant stenosis at the carotid bifurcations. No evidence of intracranial high-grade stenosis or intracranial aneurysm. Diminutive right A1 segment. Dominant left vertebral artery system with more diminutive right intracranial portion of the vertebral artery system. Patient currently on Eliquis 2.5 mg twice a day and Plavix 75 mg daily. Patient at present is very somnolent. Please refer to examination below. Objective - Vital Signs Vital signs: Vital Signs Temp 97.5 F L 08/25/24 16:00 Pulse 58 L 08/25/24 18:00 Resp 11 L 08/25/24 18:00 BP 173/76 08/25/24 18:00 Pulse Ox 98 08/25/24 18:00 FiO2 Intake & Output 08/24/24 08/25/24 08/25/24 18:59 06:59 18:59 Intake Total 759.133 Output Total 1000 500 Balance -1000 259.133 Weight 53.07 kg Intake: Intake, IV Titration 9.133 Amount Clevidipine Butyrate 25 9.133 mg In Empty Bag 1 bag @ 1 MG/HR 2 mls/hr IV .Q24H [facility] Rx#:[id number] Oral 750 Output: Urine 1000 500 Straight 1000 Other: Voiding Method Bedside Commode Bedside Commode Bedside Commode Diaper Diaper # Voids 1 - Exam Patient is somnolent, encephalopathic but does wake up to some extent and pa rticipated with the examination. Patient's pupils are equal, round and reacting, visual eason appears full, face is symmetric. Tongue protrudes the midline. On muscle strength testing there is no obvious pronator drift, but patient has very prominent myoclonic jerks of outstretched hands. Tone and bulk of muscles normal. No seizure-like activity. - Labs CBC & Chem 7: 08/26/24 03:50 08/26/24 03:50 Labs: Abnormal Lab Results - Last 24 Hours (Table) 08/24/24 08/24/24 08/24/24 Range/Units 20:31 22:09 23:27 WBC (3.8-10.6) k/uL Sodium 132 L (137-145) mmol/L Chloride 90 L (98-107) mmol/L Carbon Dioxide 33 H (22-30) mmol/L BUN 18 H (7-17) mg/dL Glucose 150 H (74-99) mg/dL POC Glucose (mg/dL) 233 H 170 H (70-110) mg/dL Hemoglobin A1c (<=6.0) % 08/25/24 08/25/24 08/25/24 Range/Units 05:20 06:03 06:03 WBC (3.8-10.6) k/uL Sodium 131 L (137-145) mmol/L Chloride 91 L (98-107) mmol/L Carbon Dioxide (22-30) mmol/L BUN 18 H (7-17) mg/dL Glucose 168 H (74-99) mg/dL POC Glucose (mg/dL) 157 H (70-110) mg/dL Hemoglobin A1c 7.0 H (<=6.0) % 08/25/24 08/25/24 Range/Units 06:03 16:02 WBC 11.1 H (3.8-10.6) k/uL Sodium (137-145) mmol/L Chloride (98-107) mmol/L Carbon Dioxide (22-30) mmol/L BUN (7-17) mg/dL Glucose (74-99) mg/dL POC Glucose (mg/dL) 269 H (70-110) mg/dL Hemoglobin A1c (<=6.0) % Assessment and Plan Assessment: * Recurrent episodes of lethargy, difficulty walking, talking, unclear cause. Differential diagnosis is between TIAs, seizure, transient metabolic encephalopathy. * Atrial fibrillation on Eliquis. * Left ICA stenosis 60% on CTA but on carotid duplex 50-69%. Repeat CTA head and neck showed no significant stenosis. Showed diminutive right A1 segment and right intracranial portion of vertebral artery system. * Recurrent confusion with word finding difficulties (had 4 prior episodes with previous admission), one episode prior to arrival and 2 episodes overnight. Differential as above. * History of seizures in the past and the daughter thinks her seizures was last 12 years ago and she used to have blank stare confused and was never on any antiseizure medication: She refused she had workup for the seizures in the past. * Presyncope status post pacemaker. It seems the patient has positive orthostatic on 06/20/2024 * Left upper lobe pulmonary nodule on CTA suspicious for neoplastic. * History of TIA * History of DVT * History of diabetes mellitus * History of fibromyalgia * Hypertension * Hyperlipidemia * History of sleep apnea on BiPAP * Chronic back pain * history of lung cancer post radiation, with probable recurrence * COPD, on home oxygen 2 L per minute * X tobacco use Plan: * Prolonged EEG for 1 hour performed today was abnormal due to background slowing and disorganization of at least moderate degree. There were also some brief beers of generalized suppression lasting for 1 second and sporadic appearance of triphasic waves. On station of these findings are suggestive of generalized cerebral dysfunction as can be seen with toxic metabolic encephalopathy. Clinical correlation is recommended. No focal or generalized epileptiform activity was seen. No electrographic seizure was recorded. * Patient has received a loading dose of Vimpat 200 mg IV, and now on Vimpat 100 mg twice a day. This will be continued. * Patient's clinical examination also reveals evidence of myoclonic jerks of outstretched hands, consistent with metabolic encephalopathy. The same was also noted on the prolonged EEG. * Primary team to identify cause of metabolic encephalopathy, rule out occult infection or other metabolic derangement. * Patient on last visit was switched from aspirin to Plavix 75 mg daily due to possible recurrent TIA and carotid stenosis. Patient is also on Eliquis 2.5mg bid. * Continue neurochecks * ABG was checked. All pH 7.48, pCO2 43, pO2 115 and saturation 98.9% on 28% FiO2. * Cardiac monitoring * PT OTand [employer] SC[employer]NER OPERATOR are consulted. * Hemoglobin A1c 7.0 * Lipid panel with cholesterol 139, LDL 53, HDL 64 and triglycerides 104. Continue Lipitor 80 mg daily. * Vascular surgery has seen patient on the last admission. Due to her overall medical comorbidities and status, they were recommending towards conservative measures. They recommended to switch from aspirin to Plavix and continue low- dose Eliquis for A. fib. The patient continues to be asymptomatic, then may consider intervention, however patient would likely benefit best from continue conservative measures.. Vascular surgery has been reconsulted. Patient has discordant findings between the different CTAs performed over time. * Will defer the rest of medical management to primary and other specialist. * Discussed at length with patient's family and the nursing staff. Time with Patient: Greater than 30 (Spent extended time with the family in counseling and also taking care of patient overnight with stroke codes.)
[2024-08-26 10:46] LABS: Glucose,Whole Blood 224 mg/dL (70-110)
--- NOTE | 2024-08-26 11:14 | P.GSCN ---
History of Present Illness Consult date: 08/26/24 Reason for Consult: Left carotid stenosis Requesting physician: Adrianna Arguelles History of present illness: This is a pleasant 84-year-old female with multiple core morbidities including coronary artery disease status post cardiac stents, atrial fibrillation with permanent pacemaker and on Eliquis, peripheral arterial disease status post revascularization, lung cancer, diabetes mellitus, COPD, hyperlipidemia, hypert ension, history of DVT, former smoker and previous stroke who was recently hospitalized August 17 through August 20 of this year for weakness, aphasia and possible TIA. Patient son is at the bedside and also provides some of her history. States patient had previously lived alone but after the last admission she was discharged and went and stayed at his home. Apparently the first 1 to 2 days she was doing well however then she became progressively weak and was have difficulty ambulating. Patient as well as son states that it was a generalized weakness and did not affect 1 side of the body more than the other. They were concerned and called EMS. Apparently patient was hypertensive when EMS arrived, no focal deficits. They states that she did not have any aphasia prior to coming to the hospital. Patient is currently admitted to the ICU for hypertensive emergency, blood pressures have improved. Currently no focal deficits. This is her third admission in the last 3 months for weakness and concerns for possible TIAs. She has had multiple workup including carotid duplex, CT angiogram head and neck, CT of brain and EEG. CT angiogram head and neck with discordant findings. Patient states that she follows with Dr. Lance for coronary artery disease as well as her carotid arteries. She had a recent appointment a couple weeks ago. States that she was told that she had 60% stenosis and they were going to continue medical management. She is currently on Plavix 75 mg, Eliquis 2.5 mg twice daily and atorvastatin 40 mg daily. Patient has had recent outpatient follow-up with a neurologist out of [facility]. Plan is for outpatient MRI. She underwent 1 hour EEG with reported findings consistent with metabolic encephalopathy. She had a CT angiogram head and neck during this hospitalization reporting no hemodynamically significant internal carotid artery stenosis. She had a brain CT with no acute findings. Patient currently denies any chest pain, shortness of breath, abdominal pain, nausea or vomiting. Denies any focal deficits. She is right-hand dominant. Speech is fluent. She answers questions appropriately. Carotid ultrasound done 08/18/2024 reported 50 to 69% left ICA stenosis with no significant stenosis of the right ICA CT angiogram head and neck done 08/17/2024 reported left stable moderate plaque of the proximal ICA approximately 60% CT angiogram head and neck done 06/21/2024 reported no flow-limiting stenosis bilaterally Review of Systems A 14 point review systems was completed all pertinent positives and negatives as stated in the HPI. Past Medical History Past Medical History: Atrial Fibrillation, Cancer (Lung cancer, treated with radiation/SBRT), Heart Failure, COPD, CVA/TIA, Diabetes Mellitus, Deep Vein Thrombosis (DVT), Fibromyalgia, GERD/Reflux, Hyperlipidemia, Hypertension, Osteoarthritis (OA), Pneumonia, Sleep Apnea/CPAP/BIPAP, Vascular Disorder Additional Past Medical History / Comment(s): back pain , lung cancer-radiation opnly, HOME 02 2 LITERS N/C, BLOOD CLOT AFTER SX, CVA LT SIDE AFFECTED SINCE RESOLVED, HIATAL HERNIA. SHINGLES 30 YEARS AGO, DOES'NT USE CPAP MACHINE.in past for short period of time took oral meds for dm-then taken off meds-pt stated not considered diabetic now but occ will check bs., macular degeneration.past broken rt leg and lt wrist. Raynauds. Pt currently has 3 fractured ribs on the right th at she has "had for years and will not heal". History of Any Multi-Drug Resistant Organisms: MRSA Year Discovered:: 09/25/16 MDRO Source:: BRONCH WASH Past Surgical History: Cholecystectomy, Heart Catheterization With Stent, Orthopedic Surgery Additional Past Surgical History / Comment(s): rt leg repaired after break-has pins, lt wrist-plate and screws. lung bx, stents tung groins. Past Anesthesia/Blood Transfusion Reactions: Family History of Problems w/ Anesthesia Additional Past Anesthesia/Blood Transfusion Reaction / Comm: daughter has diff waking after aa Date of Last Stent Placement:: unk Type of Cardiac Device: Permanent Pacemaker Device Placement Date:: 09/25/20 Smoking Status: Former smoker - Past Family History Father Family Medical History: Congestive Heart Failure (CHF), COPD Additional Family Medical History / Comment(s): emphysema Mother Family Medical History: Cancer Medications and Allergies Home Medications Medication Instructions Recorded Confirmed Type Fluticasone/Umeclidin/Vilanter 1 puff INHALATION RT-DAILY 04/19/20 08/23/24 His tory [Brinda Ellipta 100-62.5-25] Pantoprazole Sodium [Protonix] 20 mg PO DAILY 12/01/22 08/23/24 History Apixaban [Eliquis] 5 mg PO BID 04/07/24 08/23/24 History Mirtazapine [Remeron] 15 mg PO HS 04/07/24 08/23/24 History Atorvastatin [Lipitor] 80 mg PO HS 06/21/24 08/23/24 History predniSONE 5 mg PO DAILY 06/21/24 08/23/24 History traMADol HCL 50 mg PO Q6H PRN 3 Days #12 tab 06/24/24 08/23/24 Rx ALPRAZolam [Xanax] 0.25 mg PO TID PRN 08/18/24 08/23/24 History Cefuroxime [Ceftin] 250 mg PO BID 08/18/24 08/23/24 History Fluconazole [Diflucan] 100 mg PO DAILY 08/18/24 08/23/24 History Irbesartan [Avapro] 75 mg PO DAILY 08/18/24 08/23/24 History Metoprolol Succinate (ER) [Toprol 100 mg PO BID 08/18/24 08/23/24 History XL] Clopidogrel [Plavix] 75 mg PO DAILY 30 Days #30 tab 08/20/24 08/23/24 Rx Lacosamide [Vimpat] 50 mg PO BID 30 Days #60 tab 08/20/24 08/23/24 Rx metFORMIN HCL [Glucophage] 500 mg PO BID 30 Days #60 tab 08/20/24 08/23/24 Rx Furosemide [Lasix] 20 mg PO DAILY 08/23/24 08/23/24 History Allergies Allergy/AdvReac Type Severity Reaction Status Date / Time No Known Allergies Allergy Verified 08/23/24 14:03 Surgical - Exam Vital Signs Temp Pulse Resp BP Pulse Ox 97.3 F L 71 20 167/94 100 08/23/24 13:58 08/23/24 13:58 08/23/24 13:58 08/23/24 13:58 08/23/24 13:58 General appearance: The patient is alert, oriented, appears in no acute distress. HET: Head is normocephalic and atraumatic. Pupils are equal and reactive. Neck: Supple. Heart: Regular. Lungs: Equal expansion, normal respiratory effort. Abdomen: Soft, nontender, nondistended. Extremities: Normal skin color and turgor. Neurological: No focal deficits. Strength and sensation are grossly intact. Results - Labs 08/26/24 03:50 08/26/24 03:50 Abnormal Lab Results - Last 24 Hours (Table) 08/25/24 08/25/24 08/26/24 Range/Units 06:03 16:02 03:50 WBC 11.2 H (3.8-10.6) k/uL Neutrophils # 8.1 H (1.3-7.7) k/uL Sodium (137-145) mmol/L Potassium (3.5-5.1) mmol/L Chloride (98-107) mmol/L Carbon Dioxide (22-30) mmol/L BUN (7-17) mg/dL Glucose (74-99) mg/dL POC Glucose (mg/dL) 269 H (70-110) mg/dL Hemoglobin A1c 7.0 H (<=6.0) % 08/26/24 08/26/24 Range/Units 03:50 06:21 WBC (3.8-10.6) k/uL Neutrophils # (1.3-7.7) k/uL Sodium 132 L (137-145) mmol/L Potassium 3.3 L (3.5-5.1) mmol/L Chloride 91 L (98-107) mmol/L Carbon Dioxide 35 H (22-30) mmol/L BUN 22 H (7-17) mg/dL Glucose 158 H (74-99) mg/dL POC Glucose (mg/dL) 196 H (70-110) mg/dL Hemoglobin A1c (<=6.0) % Microbiology - Last 24 Hours (Table) 08/24/24 14:15 Blood Culture - Preliminary Blood Diabetes panel 08/25/24 08/26/24 Range/Units 06:03 03:50 Sodium 132 L (137-145) mmol/L Potassium 3.3 L (3.5-5.1) mmol/L Chloride 91 L (98-107) mmol/L Carbon Dioxide 35 H (22-30) mmol/L BUN 22 H (7-17) mg/dL Creatinine 0.83 (0.52-1.04) mg/dL Glucose 158 H (74-99) mg/dL Hemoglobin A1c 7.0 H (<=6.0) % Calcium 9.1 (8.4-10.2) mg/dL Calcium panel 08/26/24 Range/Units 03:50 Calcium 9.1 (8.4-10.2) mg/dL Pituitary panel 08/26/24 Range/Units 03:50 Sodium 132 L (137-145) mmol/L Potassium 3.3 L (3.5-5.1) mmol/L Chloride 91 L (98-107) mmol/L Carbon Dioxide 35 H (22-30) mmol/L BUN 22 H (7-17) mg/dL Creatinine 0.83 (0.52-1.04) mg/dL Glucose 158 H (74-99) mg/dL Calcium 9.1 (8.4-10.2) mg/dL Adrenal panel 08/26/24 Range/Units 03:50 Sodium 132 L (137-145) mmol/L Potassium 3.3 L (3.5-5.1) mmol/L Chloride 91 L (98-107) mmol/L Carbon Dioxide 35 H (22-30) mmol/L BUN 22 H (7-17) mg/dL Creatinine 0.83 (0.52-1.04) mg/dL Glucose 158 H (74-99) mg/dL Calcium 9.1 (8.4-10.2) mg/dL - Imaging Comments: CT angiogram head and neck reports no evidence of dissection of the cervical internal carotid arteries or vertebral arteries. No evidence of significant stenosis at the carotid bifurcations. No evidence of intracranial high-grade stenosis skews me or intracranial aneurysm. Diminutive right A1 segment. Dominant left vertebral artery system with more diminutive right intracranial portion of the vertebral artery system. Brain CT reports no acute intracranial process. Nonspecific white matter changes, likely secondary to chronic small vessel ischemic disease EEG reports abnormal due to background slowing and disorganization of at least moderate degree. Also some brief periods of generalized suppression lasting for 1 second and sporadic appearance of triphasic waves. Constellation of these features are suggestive of generalized cerebral dysfunction as can be seen with toxic metabolic encephalopathy. Clinical correlation is recommended. No focal or generalized Ellipta form activity was seen. No electrographic seizure was recorded. Renal arteriogram reports no evidence of vascular occlusion. Moderate arthrosclerotic disease involving the abdominal aorta and its branches. Mild stenosis at the origin of the celiac axis. No significant stenosis involving the bilateral renal arteries. Colonic diverticulosis without evidence of acute diverticulitis. COPD changes with stable right lower lobe 6.7 mm pulmonary nodule from CT chest. Consider follow-up CT chest in [address] reports new 12.2 mm left upper lobe nodule suspicious for recurrent malignancy given the history of lung cancer. Multiple additional right and left lung nodules which have decreased in size in the interval. No airspace conso lidation. No pleural effusion or pneumo thorax. No adenopathy. New mild compression fracture of T8 and stable multiple fractures of the posterior right seventh eighth and ninth ribs likely pathologic. No evidence of acute pneumonia. Marked emphysematous changes within upper lobe predominance. Assessment and Plan Assessment: 1. Left ICA stenosis, discordant findings on CT angiograms and carotid duplex 2. Hypertensive emergency 3. Generalized weakness 4. Recent aphasia, possible TIAs 5. History of CVA 6. Coronary artery disease status post cardiac stents 7. Atrial fibrillation status post pacemaker on Eliquis 2.5 mg twice daily 8. Peripheral arterial disease with previous revascularization 9. Hypertension 10. Hyperlipidemia 11. History of lung cancer Plan: 1. Maintain optimal blood pressures 2. Continue Plavix, statin and Eliquis 3. Vascular surgeon to review CTA imaging with further recommendations 4. Patient follows with Dr. Lance for carotid surveillance, coronary artery disease and peripheral arterial disease 5. Continue with recommendations from cardiology 6. Continue with further workup and recommendations from neurology 7. Rest of medical management per primary medical team Thank you for this consultation, further recommendations forthcoming per vascular surgeon. The impression and plan of care has been dictated as directed. I performed a history and examination of this patient, discussed the same with the dictator. I agree with the dictator's note ,documented as a scribe. Any additional findings or plans will be noted.
--- NOTE | 2024-08-26 14:03 | P.PN ---
Subjective Progress Note Date: 08/26/24 HISTORY OF PRESENTING ILLNESS: 84-year-old with prior history of lung cancer, with some concerns of relapse, history of CAD status post PCI, atrial fibrillation, sick sinus syndrome with PPM She presented to the hospital 08/23/2024 because of strokelike symptoms, word finding difficulty, generalized weakness. She has had prior history of TIA/CVA. Patient's daughter mentioned that patient has been having episodes in which she would get weak, could not talk, cannot walk, her eyes are open and she is not responding. She has been evaluated by neurology for possible seizures versus TIA. Cardiology was consulted because patient was noticed to be hypertensive on admission. And because of her prior cardiovascular history. She denies any symptoms of chest pain chest pressure. She does not have any signs of fluid overload. On this admission she is in atrial paced rhythm with no signs of arrhythmias. She does have prior history of paroxysmal atrial fibrillation. Admission Vitals: 167/94, last night BP 202 over 109 mmHg Admission Labs: Hb 13.2, BUN 18, creatinine 0.7, A1c 7, TSH 0.9, Admission EKG: Atrial paced V sensed rhythm with nonspecific ST changes Imaging: CT head did not show any acute intracranial process. CT angiogram neck showed left carotid 60% disease. CT chest showed emphysema with possible relapse of lung cancer with lung nodule. Home cardiac medications Eliquis 5 twice daily, Lipitor 80, Plavix 75, Lasix 20, irbesartan 75, metoprolol succinate 100 twice daily Prior cardiac testing: Echo from 05/2024 shows EF 55%, no RWMA, PPM wire in RA and RV, mild left atrial dilatation, no significant valvular dysfunction Progress note 08/26/2024 Patient is seen and examined at bedside this a.m. Patient denies any chest pain chest pressure Sinus rhythm on telemetry Blood pressure is fluctuating but better controlled since admission Still reporting to be weak. EEG did not show any evidence of ongoing seizure activity. PHYSICAL EXAMINATION: Neck: Mild left carotid bruit, no jugular venous distention. Lungs: Clear to auscultation. Heart: Regular rate and rhythm, S1-S2, no murmur or rub. Abdomen: Soft nontender, positive bowel sounds. Extremities: No edema, intact distal pulses. Neuro: Alert, oritented, some word finding difficulty, no focal deficits. Detailed neuro exam was not performed. ASSESSMENT: # Hypertensive urgency with suspected TIA # Generalized weakness with word finding difficulty # Supine hypertension with orthostatic instability from tilt table test from 05/2024. # Stable CAD, prior history of PCI to LCx # Paroxysmal atrial fibrillation # Sick sinus syndrome status post PPM # Moderate left carotid stenosis 60% # History of lung cancer with possible relapse # Advance COPD # Essential hypertension, dyslipidemia, prior history of CVA/TIA # Ex-smoker PLAN: Because of her symptoms of generalized weakness, I will reduce her Lipitor dose to 40 mg, discontinue Lasix and be gentle with her antihypertensives. From a tilt able test it did show that she has orthostatic instability with supine hypertension. Eliquis 2.5 mg twice daily. (Low-dose because of age and weight) Plavix 75 mg daily Reduce Lipitor to 40, Discontinue Lasix Metoprolol XL 50 mg twice daily Losartan 25 mg daily If blood pressure still elevated, consider amlodipine 5 mg in PM. If diuretic is needed consider SGLT2. From cardiac perspective patient is cleared to be stepdown from ICU to regular telemetry floor Objective - Vital Signs Vital signs: Vital Signs Temp 98.2 F 08/26/24 12:00 Pulse 70 08/26/24 13:00 Resp 18 08/26/24 13:00 BP 161/56 08/26/24 13:00 Pulse Ox 100 08/26/24 13:00 FiO2 Intake & Output 08/25/24 08/26/24 08/26/24 18:59 06:59 18:59 Intake Total 692.601 9266.234 880 Output Total 500 700 400 Balance 259.133 373.234 480 Weight 54.8 kg Intake: IV 580 Magnesium Sulfate-D5w Pmx 100 1 gm In Dextrose/Water 1 100ml.bag @ 100 mls/hr IVPB Q1H LETICIA Rx#: [id number] Potassium Chloride 10 meq 300 In Water For Injection 1 100ml.bag @ 100 mls/hr IVPB Q1HR LETICIA Rx#: [id number] Sodium Chloride 0.9% 1, 180 000 ml @ 60 mls/hr IV . [id number] LETICIA Rx#:[id number] Intake, IV Titration 9.133 773.234 Amount Clevidipine Butyrate 25 9.133 13.234 mg In Empty Bag 1 bag @ 1 MG/HR 2 mls/hr IV .Q24H LETICIA Rx#:[id number] Potassium Chloride 10 meq 100 In Water For Injection 1 100ml.bag @ 100 mls/hr IVPB Q1HR LETICIA Rx#: [id number] Sodium Chloride 0.9% 1, 660 000 ml @ 60 mls/hr IV . [id number] LETICIA Rx#:[id number] Oral 750 300 300 Output: Urine 500 650 400 Post Void Residual 50 Other: Voiding Method Bedside Commode Bedside Commode Bedside Commode Diaper Diaper Diaper # Voids 1 1 - Labs CBC & Chem 7: 08/26/24 03:50 08/26/24 03:50 Labs: Abnormal Lab Results - Last 24 Hours (Table) 08/25/24 08/26/24 08/26/24 Range/Units 16:02 03:50 03:50 WBC 11.2 H (3.8-10.6) k/uL Neutrophils # 8.1 H (1.3-7.7) k/uL Sodium 132 L (137-145) mmol/L Potassium 3.3 L (3.5-5.1) mmol/L Chloride 91 L (98-107) mmol/L Carbon Dioxide 35 H (22-30) mmol/L BUN 22 H (7-17) mg/dL Glucose 158 H (74-99) mg/dL POC Glucose (mg/dL) 269 H (70-110) mg/dL 08/26/24 08/26/24 Range/Units 06:21 10:43 WBC (3.8-10.6) k/uL Neutrophils # (1.3-7.7) k/uL Sodium (137-145) mmol/L Potassium (3.5-5.1) mmol/L Chloride (98-107) mmol/L Carbon Dioxide (22-30) mmol/L BUN (7-17) mg/dL Glucose (74-99) mg/dL POC Glucose (mg/dL) 196 H 224 H (70-110) mg/dL Microbiology - Last 24 Hours (Table) 08/24/24 14:15 Blood Culture - Preliminary Blood
--- NOTE | 2024-08-26 14:23 | P.PN ---
Subjective Progress Note Date: 08/26/24 This is a 84-year-old female patient with transferred to the intensive care unit for an acute hyper tensive emergency. The patient is known to have COPD, lung mass that was treated with SBRT in the past and subsequently her condition has progressed and the patient has bilateral pulmonary nodules at this point and this has been confirmed on an earlier PET/CT. Tissue diagnosis has been established on this patient. The patient has been having episodes of TIA. She was recently admitted on 08/17/2024 for acute confusion, aphasia, difficulty in finding words and headaches. At that time, the patient was further investigated, she clinically improved and she was discharged home on 08/20/2024 and the patient has been taking a combination of aspirin and anticoagulation with Eliquis with the patient has history of paroxysmal atrial fibrillation. Previous neurologic evaluation was done. The patient underwent a carotid Dopplers that showed bilateral moderate carotid plaques and there was no evidence of a hemodynamically significant stenosis on the right. There was approximately 50 to 69% stenosis of the left extending to the left proximal internal carotid artery. CTA of the head and the neck was done that shows stable moderate to severe focal plaquing involving the proximal left ICA and the area of stenosis was in the order of 60%. CAT scan of the brain showed no evidence of any acute intracranial hemorrhage or midline shift. The LDL cholesterol was 53. TSH was 1.38 and the patient had another CAT scan of the chest prior to discharge that showed no evidence of any acute intracranial process, possibility of a remote regular injury along with advanced nonspecific white matter ischemic changes were noted. The patient was unable to do an MRI due to her having a pacemaker. She was receiving antiepileptic in the past and based on that, the patient was restarted on Vimpat 50 mg p.o. twice daily. She was kept on aspirin and combination with anticoagulation with Eliquis. As the p atient regained neurologic recovered, she was given diagnosis of TIA. The patient was doing well at home. However, her condition and decompensated and she developed difficulties in talking and for that reason she was brought into the hospital. Overnight, the patient developed also headache and an acute hypertensive emergency where her blood pressure was noted to be quite elevated and she developed a systolic blood pressure above 200. Based on that, the patient got transferred to the intensive care unit and she was started on a Cleviprex drip for blood pressure control the Cleviprex is currently running at 2 mg an hour. Neurology was again consulted. A repeat CT scan of the brain that was done on 08/24/2024, showed no acute intracranial process and repeat CT angiogram of the c of the head showed no evidence of any dissection of cervical internal carotid arteries or vertebral arteries. No evidence of any significant stenosis. No evidence of any intracranial high-grade stenosis or aneurysm. There was a dominant left vertebral artery system. Furthermore, no seizure activity has been described or noted by the medical staff. I evaluated this patient in the ICU this morning. Her blood pressure was under better control. Noted severe avoiding a abrupt drop in the blood pressure or aggressive antihypertensive treatment. The patient is currently on Cleviprex running at 2 mg an hour and the patient is also on metoprolol 50 mg p.o. twice a day and Cozaar 25 mg p.o. daily. According to the family, the patient is having significant fluctuation in her blood pressure with episodes of acute hypertensive reactions. No focal neurological deficits. The patient is lethargic. She is able to communicate. Her current cardiac rhythm is sinus. She has a permanent pacemaker in place. She is also known to have coronary artery disease with previous PCI to circumflex. She has sick sinus syndrome with previous pacemaker insertion. Blood work is essentially within normal limits. Procalcitonin level is at 0.05. She is currently on 2 L of oxygen by nasal cannula. On 08/26/2024, the patient is being seen for a follow-up. The patient is neurologically doing better. She is awake and alert. Communicating. No focal neurological deficits. This morning, she is off the Cleviprex drip. She is maintained on a combination of losartan 25 mg p.o. daily and metoprolol 50 mg p.o. twice daily. Blood pressure is under better control and the most recent BP was 126/52. Noted the CTA of the renal arteries showed no no evidence of any renal artery stenosis. Cardiac rhythm is sinus. She is afebrile. She has a pacemaker in place. No headaches. No seizure activity. The white second 11.2 with a hemoglobin 11.9 and platelet count of 195. Sodium is 132 with a potassium level of 3.3, BUN 22 with a creatinine of 0.8. The patient has no headaches. The patient is currently on anticoagulation with Eliquis 2.5 mg p.o. twice a day and Plavix 75 mg p.o. daily. No other significant events. Family at the bedside. Objective - Vital Signs Vital signs: Vital Signs Temp 97.4 F L 08/26/24 04:00 Pulse 55 L 08/26/24 06:00 Resp 21 08/26/24 06:00 BP 166/77 08/26/24 06:00 Pulse Ox 98 08/26/24 06:00 FiO2 Intake & Output 08/25/24 08/26/24 08/26/24 18:59 06:59 18:59 Intake Total 199.197 8631.234 Output Total 500 700 Balance 259.133 373.234 Weight 54.8 kg Intake: Intake, IV Titration 9.133 773.234 Amount Clevidipine Butyrate 25 9.133 13.234 mg In Empty Bag 1 bag @ 1 MG/HR 2 mls/hr IV .Q24H [facility] Rx#:[id number] Potassium Chloride 10 meq 100 In Water For Injection 1 100ml.bag @ 100 mls/hr IVPB Q1HR [facility] Rx#: [id number] Sodium Chloride 0.9% 1, 660 000 ml @ 60 mls/hr IV . [id number] [facility] Rx#:[id number] Oral 750 300 Output: Urine 500 650 Post Void Residual 50 Other: Voiding Method Bedside Commode Bedside Commode Diaper Diaper # Voids 1 - Exam The patient appeared well nourished and normally developed. Vital signs as documented. Head exam is unremarkable. No scleral icterus or corneal arcus noted. Neck is without jugular venous distension, thyromegaly, or carotid bruits. Carotid upstrokes are brisk bilaterally. Lungs are clear to auscultation and percussion. Cardiac exam reveals the PMI to be normally sized and situated. Rhythm is regular. First and second heart sounds normal. No murmurs, rubs or gallops. Abdominal exam reveals normal bowel sounds, no masses, no organomegaly and no aortic enlargement. Extremities are nonedematous and both femoral and pedal pulses are normal. Examination of the skin revealed no evidence of significant rashes, suspicious appearing nevi or other concerning lesions. Neurologically, the patient is awake and alert and the patient does not have any focal neurological deficit. Cranial nerves are essentially intact. - Labs CBC & Chem 7: 08/26/24 03:50 04/04/25 03:50 Labs: Abnormal Lab Results - Last 24 Hours (Table) 08/25/24 08/26/24 08/26/24 Range/Units 16:02 03:50 03:50 WBC 11.2 H (3.8-10.6) k/uL Neutrophils # 8.1 H (1.3-7.7) k/uL Sodium 132 L (137-145) mmol/L Potassium 3.3 L (3.5-5.1) mmol/L Chloride 91 L (98-107) mmol/L Carbon Dioxide 35 H (22-30) mmol/L BUN 22 H (7-17) mg/dL Glucose 158 H (74-99) mg/dL POC Glucose (mg/dL) 269 H (70-110) mg/dL 08/26/24 Range/Units 06:21 WBC (3.8-10.6) k/uL Neutrophils # (1.3-7.7) k/uL Sodium (137-145) mmol/L Potassium (3.5-5.1) mmol/L Chloride (98-107) mmol/L Carbon Dioxide (22-30) mmol/L BUN (7-17) mg/dL Glucose (74-99) mg/dL POC Glucose (mg/dL) 196 H (70-110) mg/dL Microbiology - Last 24 Hours (Table) 08/24/24 14:15 Blood Culture - Preliminary Blood Assessment and Plan Plan: Acute neurologic deficits, recurrent, suggestive of a TIA. Clinically recovered and the patient is neurologic's status is stable and normalized and she is back to her baseline. Possibility of an acute hypertensive encephalopathy cannot be completely ruled out. Noted, the patient has had no clear indication for any seizure activity. Carotid Dopplers earlier showed left ICA stenosis in the order of 60%. Nevertheless, the repeat CT angiogram of the brain that was done on 08/24/2024 shows no evidence of any critically significant stenosis involving the intracranial arteries. No evidence of any bleeding. Cardiac rhythm is sinus at this point. History of seizure activity, EEG was negative and the patient remains on Vimpat. Hypertension with labile blood pressure. the BP is stable for now the patient is currently on a combination of metoprolol and losartan. Off clevidipine drip. Lung masses, bilateral, suggestive of advanced disease. The patient was given SBRT in the past. Most recent PET/CT done on this patient on May 2024 showed bilateral lung nodules and hilar and mediastinal lymphadenopathy consis tent with metastatic disease. A tissue biopsy has not been established due to her advanced COPD and poor baseline performance and functional status. As such, the patient has not been offered any further treatment. Coronary artery disease with previous PCI and stenting of the circumflex. Presents on function with an ejection fraction of 55% without any significant valvular heart disease based on echocardiogram from May 2024 History of sick sinus syndrome, post pacemaker insertion Paroxysmal atrial fibrillation, current rhythm is sinus and the patient is currently on anticoagulation with Eliquis Hyperlipidemia Former smoker COPD which is currently inactive and stable Previous history of DVT Fibromyalgia Acid reflux Obstructive sleep apnea Peripheral vascular disease Macular degeneration Plan Continue Plavix Continue anticoagulation with Eliquis 2.5 mg p.o. twice daily Continue Vimpat Patient is off the Cleviprex drip. CTA of the renal arteries were negative. Blood pressure control with a combination of metoprolol 50 mg p.o. twice daily and losartan 25 mg p.o. daily Continue maintenance of prednisone 5 mg p.o. daily. Continue Lipitor 40 mg p.o. daily Consider HUE Will continue to follow. The patient will be transferred out of the intensive care unit. Time with Patient: Greater than 30
[2024-08-26 16:25] LABS: Glucose,Whole Blood 226 mg/dL (70-110)
--- NOTE | 2024-08-26 18:42 | P.PN ---
Subjective Progress Note Date: 08/26/24 This is an 84-year-old female who follows with Dr. Estrada in the outpatient setting who presented to the emergency department with increased weakness.'s of confusion with uncontrolled blood pressure and generally not feeling well. Patient was recently admitted last week and discharged with TIA recommending outpatient follow-up with her neurologist. Patient does have significant past medical history of atrial fibrillation, COPD, CVA with TIA, heart failure, diabetes mellitus, previous history of DVT, sleep apnea and does not use a CPAP, chronic hypoxic respiratory failure maintained on 2 to 3 L outpatient, fibromyalgia, hyperlipidemia, hypertension. Patient has been hospitalized frequently for continued ongoing complex medical issues. Patient also with weakness would like to go to rehab for strength mobility. Case management is following and was working on ECF and will require 3 night stay hospitalization according to Medicare guidelines. Apparently patient was having an episode of unresponsiveness and altered mentation and code stroke was called and patient was brought to the ICU as a stepdown overflow as there are no beds available on 3 S. Patient undergoing extensive neurological workup and currently undergoing EEG this morning. Report is pending at this time. Patient also does have history of seizures and follows with neurology outpatient. 08/26/2024 Patient is seen in follow-up today continues in the ICU with multiple medical consultations following. Patient is awake, alert and oriented and at her baseline with no seizure-like activity noted. Aggressive medications being made per cardiology and blood pressures much more controlled today. Patient has been transferred out of the ICU to stepdown and continue telemetry monitoring. Plan is for patient to go to [facility] for continued strength and mobility once stabilized and discharged. Cardiology to consider possible HUE. Review of systems: Constitutional: reports of fatigue, no fever, or chills Cardiovascular: No reports of chest pain reports of occasional palpitations Respiratory: No reports of shortness of breath or cough GI: No reports of nausea, no reports of vomiting, no reports of diarrhea : No reports of dysuria or retention Neurovascular: reports of generalized weakness, reports feeling improved and more awake and alert today All medications have been reviewed Active Medications Acetaminophen (Acetaminophen Tab 325 Mg Tab) 650 mg PO Q6HR PRN PRN Reason: Fever and/ or Pain Last Admin: 08/25/24 16:59 Dose: 650 mg Alprazolam (Alprazolam 0.25 Mg Tab) 0.25 mg PO TID PRN PRN Reason: Anxiety Last Admin: 08/26/24 12:09 Dose: 0.25 mg Apixaban (Apixaban 2.5 Mg Tablet) 2.5 mg PO BID [facility]; Protocol Last Admin: 08/26/24 08:34 Dose: 2.5 mg Artificial Tears (Artificial Tears-Hypromellose Drops 15 Ml Btl) 2 drops BOTH EYES QID PRN PRN Reason: Dry Eye(s) Atorvastatin Calcium (Atorvastatin 40 Mg Tab) 40 mg PO HS [facility] Last Admin: 08/25/24 20:32 Dose: 40 mg Clopidogrel Bisulfate (Clopidogrel 75 Mg Tab) 75 mg PO DAILY [facility] Last Admin: 08/26/24 08:34 Dose: 75 mg Dextrose/Water (Dextrose 50% Syringe 50 Ml) 25 ml IVP PER PROTOCOL PRN; Protoc ol PRN Reason: Hypoglycemia Dextrose/Water (Dextrose 50% Syringe 50 Ml) 50 ml IVP PER PROTOCOL PRN; Protocol PRN Reason: Hypoglycemia Hydromorphone HCl (Hydromorphone 0.5 Mg/0.5 Ml Syringe) 0.5 mg IVP Q2HR PRN PRN Reason: Pain Last Admin: 08/25/24 04:44 Dose: 0.5 mg Ceftriaxone Sodium 1 gm/ (Sodium Chloride) 50 mls @ 100 mls/hr IVPB Q24HR [facility]; Protocol Last Admin: 08/26/24 08:34 Dose: 100 mls/hr Insulin Human Lispro (Insulin Lispro (Humalog) 100 Unit/Ml 10 Ml Vl) 0 unit SQ ACHS [facility]; Protocol Last Admin: 08/26/24 17:01 Dose: 2 unit Lacosamide (Lacosamide 50 Mg Tablet) 100 mg PO BID [facility] Losartan Potassium (Losartan 25 Mg Tab) 25 mg PO DAILY [facility] Last Admin: 08/26/24 08:37 Dose: 25 mg Metoprolol Succinate (Metoprolol Succinate (Er) 50 Mg Tab.Er.24h) 50 mg PO BID [facility] Last Admin: 08/26/24 08:37 Dose: 50 mg Mirtazapine (Mirtazapine 15 Mg Tab) 15 mg PO HS [facility] Last Admin: 08/25/24 21:53 Dose: 15 mg Miscellaneous Information (Potassium Replacement Protocol 1 Each Misc) 1 each MISCELLANE DAILY PRN; Protocol PRN Reason: Per Protocol Miscellaneous Information (Magnesium Replacement Protocol 1 Each Misc) 1 each MISCELLANE DAILY PRN; Protocol PRN Reason: Per Protocol Morphine Sulfate (Morphine Sulfate 4 Mg/Ml Syringe) 4 mg IV Q4HR PRN PRN Reason: Severe Pain (Scale 7 to 10) Naloxone HCl (Naloxone 0.4 Mg/Ml 1 Ml Vial) 0.2 mg IV Q2M PRN PRN Reason: Opioid Reversal Ondansetron HCl (Ondansetron 4 Mg/2 Ml Vial) 4 mg IVP Q8HR PRN PRN Reason: Nausea And Vomiting Last Admin: 08/25/24 05:30 Dose: 4 mg Pantoprazole Sodium (Pantoprazole 40 Mg Tablet) 40 mg PO AC-[id number] [facility] Last Admin: 08/26/24 11:08 Dose: 40 mg Prednisone (Prednisone 5 Mg Tab) 5 mg PO DAILY [facility] Last Admin: 08/26/24 08:37 Dose: 5 mg PHYSICAL EXAMINATION: GENERAL: The patient is alert and oriented x3, Well developed, ill-appearing, elderly appearing, thin built HEENT: Pupils are round and equally reacting to light. EOMI. no scleral icterus. No conjunctival pallor. Normocephalic, atraumatic. No pharyngeal erythema. No thyromegaly. CARDIOVASCULAR: S1 and S2 muffled, irregular PULMONARY: diminished breath sounds bilaterally with no wheezing or rhonchi noted. ABDOMEN: soft. Nontender on exam. Thin. non-distended, normoactive bowel sounds. No palpable organomegaly. MUSCULOSKELETAL: No joint swelling or deformity. EXTREMITIES: No cyanosis, clubbing, or pedal edema. NEUROLOGICAL: Gross neurological examination did not reveal any focal deficits. Diffuse weakness SKIN: No rashes. Assessment: Generalized weakness and fatigue, rule out sepsis or postobstructive pneumonia History of lung cancer on the right, left upper lobe pulmonary nodule on CTA, suspicious for neoplasm and progression of disease History of TIA recently Hypertension history, uncontrolled Hyperlipidemia Recurrent episodes of lethargy, difficulty walking and talking with period of unresponsiveness, code stroke was activated, likely TIA, no seizure-like activity noted on EEG Left ICA stenosis 60% on CTA, vascular has evaluated and no plans of intervention at this time. Patient follows with Dr. Lance outpatient for this Chronic obstructive pulmonary disease, not in exacerbation Chronic hypoxic respiratory failure secondary to above, maintained on 2 L History of permanent pacemaker History of sleep apnea, does not use a CPAP Congestive heart failure history, unknown EF History of atrial fibrillation, paroxysmal Diabetes mellitus, type II History of DVT History of fibromyalgia History of coronary artery disease with previous stenting of the circumflex Former smoker GI prophylaxis DVT prophylaxis Full code Plan: Recommend to continue with current medications and management with multiple consultations following. Neurology following and underwent workup for TIA, likely and seizure ruled out. EEG abnormal due to encephalopathy, mentation significantly improved today Patient with noted ICA stenosis was seen and evaluated by vascular surgery with no plans of intervention at this time and stable and follows with Dr. Lance outpatient Continue telemetry monitoring and patient has been downgraded from ICU once a bed becomes available Patient evaluated by PT/OT therapy recommending rehab and patient is agreeable as patient has had extensive weakness. Will continue monitoring closely and adjust medications accordingly. Will discuss with multiple consultations regarding discharge planning to ECF. Patient will require 3 night hospitalization and insurance authorization for ECF. [facility] has accepted the patient pending authorization and 3 night stay. Due to multiple complex medical issues, overall prognosis is guarded. The impression and plan of care has been dictated by Adrianna Arguelles, nurse practitioner as directed. Dr. Ramone MD I have performed a history and examination and MDM of this patient, discussed the same with the dictator, and agree with the dictator's assessment and plan as written ,documented as a scribe. Based on total visit time, I have performed more than 50% of the visit. Any additional findings or plans will be noted. Objective - Vital Signs Vital signs: Vital Signs Temp 97.4 F L 08/26/24 04:00 Pulse 55 L 08/26/24 06:00 Resp 21 08/26/24 06:00 BP 166/77 08/26/24 06:00 Pulse Ox 98 08/26/24 06:00 FiO2 Intake & Output 08/25/24 08/26/24 08/26/24 18:59 06:59 18:59 Intake Total 162.351 9812.234 Output Total 500 700 Balance 259.133 373.234 Weight 54.8 kg Intake: Intake, IV Titration 9.133 773.234 Amount Clevidipine Butyrate 25 9.133 13.234 mg In Empty Bag 1 bag @ 1 MG/HR 2 mls/hr IV .Q24H [facility] Rx#:[id number] Potassium Chloride 10 meq 100 In Water For Injection 1 100ml.bag @ 100 mls/hr IVPB Q1HR [facility] Rx#: [id number] Sodium Chloride 0.9% 1, 660 000 ml @ 60 mls/hr IV . [id number] [facility] Rx#:[id number] Oral 750 300 Output: Urine 500 650 Post Void Residual 50 Other: Voiding Method Bedside Commode Bedside Commode Diaper Diaper # Voids 1 - Labs CBC & Chem 7: 08/26/24 03:50 08/26/24 03:50 Labs: Abnormal Lab Results - Last 24 Hours (Table) 08/25/24 08/26/24 08/26/24 Range/Units 16:02 03:50 03:50 WBC 11.2 H (3.8-10.6) k/uL Neutrophils # 8.1 H (1.3-7.7) k/uL Sodium 132 L (137-145) mmol/L Potassium 3.3 L (3.5-5.1) mmol/L Chloride 91 L (98-107) mmol/L Carbon Dioxide 35 H (22-30) mmol/L BUN 22 H (7-17) mg/dL Glucose 158 H (74-99) mg/dL POC Glucose (mg/dL) 269 H (70-110) mg/dL 08/26/24 Range/Units 06:21 WBC (3.8-10.6) k/uL Neutrophils # (1.3-7.7) k/uL Sodium (137-145) mmol/L Potassium (3.5-5.1) mmol/L Chloride (98-107) mmol/L Carbon Dioxide (22-30) mmol/L BUN (7-17) mg/dL Glucose (74-99) mg/dL POC Glucose (mg/dL) 196 H (70-110) mg/dL Microbiology - Last 24 Hours (Table) 08/24/24 14:15 Blood Culture - Preliminary Blood
[2024-08-26 19:48] LABS: Glucose,Whole Blood 174 mg/dL (70-110)
[2024-08-26] MEDS: SENNOSIDES 8.6 MG TAB PO SCH (20:17)
[2024-08-26] MEDS: LACOSAMIDE 50 MG TABLET PO SCH (20:17)
[2024-08-27 06:08] LABS: Glucose,Whole Blood 207 mg/dL (70-110)
[2024-08-27 07:20] LABS: Basophils # (A) 0.1 k/uL (0-0.2); Basophils % (A) 1 %; Eosinophils # (A) 0.3 k/uL (0-0.7); Eosinophils % (A) 3 %; HCT 38.3 % (34.0-46.0); HGB 11.6 gm/dL (11.4-16.0); Lymphocytes # (A) 2.3 k/uL (1.0-4.8); Lymphocytes % (A) 23 %; MCH 28.1 pg (25.0-35.0); MCHC 30.2 g/dL (31.0-37.0); Mean Platelet Volume 9.3; Monocytes # (A) 0.6 k/uL (0-1.0); Monocytes % (A) 6 %; Neutrophils # (A) 6.5 k/uL (1.3-7.7); Neutrophils % (A) 65 %; Platelet Count 170 k/uL (150-450); RBC 4.12 m/uL (3.80-5.40); RDW 13.6 % (11.5-15.5)
[2024-08-27 07:34] LABS: ALT 17 U/L (4-34); AST 24 U/L (14-36); African American GFR (CKD) >90 (>60 ml/min/1.73 sqM); Albumin 3.5 g/dL (3.5-5.0); Alkaline Phosphatase 48 U/L (38-126); Anion Gap 2 mmol/L; Blood Urea Nitrogen 32 mg/dL (7-17); Calcium 10.1 mg/dL (8.4-10.2); Carbon Dioxide 36 mmol/L (22-30); Chloride 96 mmol/L (98-107); Glucose 209 mg/dL (74-99); Non-African American GFR(CKD) 79 (>60 ml/min/1.73 sqM); Potassium 4.3 mmol/L (3.5-5.1); Sodium 134 mmol/L (137-145); Total Bilirubin 0.3 mg/dL (0.2-1.3); Total Protein 5.9 g/dL (6.3-8.2)
[2024-08-27 11:47] LABS: Glucose,Whole Blood 202 mg/dL (70-110)
--- NOTE | 2024-08-27 13:47 | P.PN ---
Subjective Progress Note Date: 08/27/24 This is a 84-year-old female patient with transferred to the intensive care unit for an acute hyper tensive emergency. The patient is known to have COPD, lung mass that was treated with SBRT in the past and subsequently her condition has progressed and the patient has bilateral pulmonary nodules at this point and this has been confirmed on an earlier PET/CT. Tissue diagnosis has been established on this patient. The patient has been having episodes of TIA. She was recently admitted on 08/17/2024 for acute confusion, aphasia, difficulty in finding words and headaches. At that time, the patient was further investigated, she clinically improved and she was discharged home on 08/20/2024 and the patient has been taking a combination of aspirin and anticoagulation with Eliquis with the patient has history of paroxysmal atrial fibrillation. Previous neurologic evaluation was done. The patient underwent a carotid Dopplers that showed bilateral moderate carotid plaques and there was no evidence of a hemodynamically significant stenosis on the right. There was approximately 50 to 69% stenosis of the left extending to the left proximal internal carotid artery. CTA of the head and the neck was done that shows stable moderate to severe focal plaquing involving the proximal left ICA and the area of stenosis was in the order of 60%. CAT scan of the brain showed no evidence of any acute intracranial hemorrhage or midline shift. The LDL cholesterol was 53. TSH was 1.38 and the patient had another CAT scan of the chest prior to discharge that showed no evidence of any acute intracranial process, possibility of a remote regular injury along with advanced nonspecific white matter ischemic changes were noted. The patient was unable to do an MRI due to her having a pacemaker. She was receiving antiepileptic in the past and based on that, the patient was restarted on Vimpat 50 mg p.o. twice daily. She was kept on aspirin and combination with anticoagulation with Eliquis. As the p atient regained neurologic recovered, she was given diagnosis of TIA. The patient was doing well at home. However, her condition and decompensated and she developed difficulties in talking and for that reason she was brought into the hospital. Overnight, the patient developed also headache and an acute hypertensive emergency where her blood pressure was noted to be quite elevated and she developed a systolic blood pressure above 200. Based on that, the patient got transferred to the intensive care unit and she was started on a Cleviprex drip for blood pressure control the Cleviprex is currently running at 2 mg an hour. Neurology was again consulted. A repeat CT scan of the brain that was done on 08/24/2024, showed no acute intracranial process and repeat CT angiogram of the c of the head showed no evidence of any dissection of cervical internal carotid arteries or vertebral arteries. No evidence of any significant stenosis. No evidence of any intracranial high-grade stenosis or aneurysm. There was a dominant left vertebral artery system. Furthermore, no seizure activity has been described or noted by the medical staff. I evaluated this patient in the ICU this morning. Her blood pressure was under better control. Noted severe avoiding a abrupt drop in the blood pressure or aggressive antihypertensive treatment. The patient is currently on Cleviprex running at 2 mg an hour and the patient is also on metoprolol 50 mg p.o. twice a day and Cozaar 25 mg p.o. daily. According to the family, the patient is having significant fluctuation in her blood pressure with episodes of acute hypertensive reactions. No focal neurological deficits. The patient is lethargic. She is able to communicate. Her current cardiac rhythm is sinus. She has a permanent pacemaker in place. She is also known to have coronary artery disease with previous PCI to circumflex. She has sick sinus syndrome with previous pacemaker insertion. Blood work is essentially within normal limits. Procalcitonin level is at 0.05. She is currently on 2 L of oxygen by nasal cannula. On 08/26/2024, the patient is being seen for a follow-up. The patient is neurologically doing better. She is awake and alert. Communicating. No focal neurological deficits. This morning, she is off the Cleviprex drip. She is maintained on a combination of losartan 25 mg p.o. daily and metoprolol 50 mg p.o. twice daily. Blood pressure is under better control and the most recent BP was 126/52. Noted the CTA of the renal arteries showed no no evidence of any renal artery stenosis. Cardiac rhythm is sinus. She is afebrile. She has a pacemaker in place. No headaches. No seizure activity. The white second 11.2 with a hemoglobin 11.9 and platelet count of 195. Sodium is 132 with a potassium level of 3.3, BUN 22 with a creatinine of 0.8. The patient has no headaches. The patient is currently on anticoagulation with Eliquis 2.5 mg p.o. twice a day and Plavix 75 mg p.o. daily. No other significant events. Family at the bedside. 08/27/2024, patient is being seen and follow-up. The patient is stable. Blood pressure continues to fluctuate although there is no significant hypertensive episodes. Most recent BP is 154/70. The patient is currently on a combination of metoprolol 50 mg p.o. twice daily and losartan 25 mg p.o. daily. Rest of the medication remains unchanged. She is currently on Plavix and Eliquis. No other new complaints for now. She was transferred out of the intensive care unit yesterday and she is currently on a telemetry unit.Blood work from today shows a white cell count of 10, hemoglobin 11.6 and a platelet count of 170. Sodium levels at 134, bicarb is at 36, BUN 32 with a creatinine of 0.7. Normal LFTs. Objective - Vital Signs Vital signs: Vital Signs Temp 97.9 F 08/27/24 04:31 Pulse 63 08/27/24 04:31 Resp 18 08/27/24 04:31 BP 154/73 08/27/24 04:31 Pulse Ox 100 08/27/24 04:31 FiO2 Intake & Output 08/26/24 08/27/24 08/27/24 18:59 06:59 18:59 Intake Total 940 540 Output Total 400 0 Balance 540 540 Intake: IV 640 Magnesium Sulfate-D5w Pmx 100 1 gm In Dextrose/Water 1 100ml.bag @ 100 mls/hr IVPB Q1H [facility] Rx#: [id number] Potassium Chloride 10 meq 300 In Water For Injection 1 100ml.bag @ 100 mls/hr IVPB Q1HR [facility]ICIA Rx#: [id number] Sodium Chloride 0.9% 1, 240 000 ml @ 60 mls/hr IV . [id number] [facility]ICIA Rx#:[id number] Oral 300 540 Output: Urine 400 0 Other: Voiding Method Bedside Commode Toilet Diaper # Voids 0 2 - Exam The patient appeared well nourished and normally developed. Vital signs as documented. Head exam is unremarkable. No scleral icterus or corneal arcus noted. Neck is without jugular venous distension, thyromegaly, or carotid bruits. Carotid upstrokes are brisk bilaterally. Lungs are clear to auscultation and percussion. Cardiac exam reveals the PMI to be normally sized and situated. Rhythm is regular. First and second heart sounds normal. No murmurs, rubs or gallops. Abdominal exam reveals normal bowel sounds, no masses, no organomegaly and no aortic enlargement. Extremities are nonedematous and both femoral and pedal pulses are normal. Examination of the skin revealed no evidence of significant rashes, suspicious appearing nevi or other concerning lesions. Neurologically, the patient is awake and alert and the patient does not have any focal neurological deficit. Cranial nerves are essentially intact. - Labs CBC & Chem 7: 08/27/24 07:08/27/24 07:01 Labs: Abnormal Lab Results - Last 24 Hours (Table) 08/26/24 08/26/24 08/26/24 Range/Units 10:43 16:24 19:47 MCHC (31.0-37.0) g/dL Sodium (137-145) mmol/L Chloride (98-107) mmol/L Carbon Dioxide (22-30) mmol/L BUN (7-17) mg/dL Glucose (74-99) mg/dL POC Glucose (mg/dL) 224 H 226 H 174 H (70-110) mg/dL Total Protein (6.3-8.2) g/dL 08/27/24 08/27/24 08/27/24 Range/Units 06:01 07:01 07:01 MCHC 30.2 L (31.0-37.0) g/dL Sodium 134 L (137-145) mmol/L Chloride 96 L (98-107) mmol/L Carbon Dioxide 36 H (22-30) mmol/L BUN 32 H (7-17) mg/dL Glucose 209 H (74-99) mg/dL POC Glucose (mg/dL) 207 H (70-110) mg/dL Total Protein 5.9 L (6.3-8.2) g/dL Microbiology - Last 24 Hours (Table) 08/24/24 14:15 Blood Culture - Preliminary Blood Assessment and Plan Plan: Acute neurologic deficits, recurrent, suggestive of a TIA. Clinically recovered and the patient is neurologic's status is stable and normalized and she is back to her baseline. Possibility of an acute hypertensive encephalopathy cannot be completely ruled out. Noted, the patient has had no clear indication for any seizure activity. Carotid Dopplers earlier showed left ICA stenosis in the order of 60%. Nevertheless, the repeat CT angiogram of the brain that was done on 08/24/2024 shows no evidence of any critically significant stenosis involving the intracranial arteries. No evidence of any bleeding. Cardiac rhythm is sinus at this point. History of seizure activity, EEG was negative and the patient remains on Vimpat. Hypertension with labile blood pressure. the BP is stable for now the patient is currently on a combination of metoprolol and losartan. Off clevidipine drip. Lung masses, bilateral, suggestive of advanced disease. The patient was given SBRT in the past. Most recent PET/CT done on this patient on May 2024 showed bilateral lung nodules and hilar and mediastinal lymphadenopathy consistent with metastatic disease. A tissue biopsy has not been established due to her advanced COPD and poor baseline performance and functional status. As such, the patient has not been offered any further treatment. Coronary artery disease with previous PCI and stenting of the circumflex. Presents on function with an ejection fraction of 55% without any significant valvular heart disease based on echocardiogram from May 2024 History of sick sinus syndrome, post pacemaker insertion Paroxysmal atrial fibrillation, current rhythm is sinus and the patient is currently on anticoagulation with Eliquis Hyperlipidemia Former smoker COPD which is currently inactive and stable Previous history of DVT Fibromyalgia Acid reflux Obstructive sleep apnea Peripheral vascular disease Macular degeneration Plan Neurologically stable and intact No new neurologic episodes Blood pressure is under better control Continue Plavix Continue anticoagulation with Eliquis 2.5 mg p.o. twice daily Continue Vimpat CTA of the renal arteries were negative. Blood pressure control with a combination of metoprolol 50 mg p.o. twice daily and losartan 25 mg p.o. daily Continue maintenance of prednisone 5 mg p.o. daily. Continue Lipitor 40 mg p.o. daily Consider HUE Will continue to follow. Keep the patient on telemetry
--- NOTE | 2024-08-27 14:15 | P.PN ---
Subjective Progress Note Date: 08/26/24 08/26/2024: Patient was seen for a follow-up. Patient is doing remarkably better. Her headache earlier today was 6/10, but now is completely gone 0/10. Patient does have history of macular degeneration for about 15 to 20 years. It may be slightly worse. Patient has had hallucinations recently, which was felt to be related to his macular degeneration. Her central vision is more affected from macular degeneration. This morning patient was seeing things that were not there. She feels some slight dizziness when standing. When she was walking to the bathroom, she was not dizzy. 08/25/2024: Patient was seen for follow-up. Patient's daughter Karen, and patient's son-in-law were also present. Patient is very somnolent. Patient had a stroke code activated last night at 10:10 PM. Patient was noted to have left facial droop. Nursing staff discussed with interventional neurologist Dr. Ferrari, who recommended CT and CTA of head and neck. Patient's symptoms improve, then at 3:44 AM, patient has repeat neuro deficits. Patient was transferred to [facility]. Patient was given Vimpat 200 mg IV times loading dose followed by Vimpat 100 mg IV twice a day. Patient prior to this was on Vimpat 50 mg twice a day. CT head showed no acute intracranial process. Nonspecific white matter changes, likely secondary to chronic small vessel ischemic disease. CTA of head and neck reported no evidence of dissection of the cervical internal carotid arteries or vertebral arteries. No evidence of significant stenosis at the carotid bifurcations. No evidence of intracranial high-grade stenosis or intracranial aneurysm. Diminutive right A1 segment. Dominant left vertebral artery system with more diminutive right intracranial portion of the vertebral artery system. Patient currently on Eliquis 2.5 mg twice a day and Plavix 75 mg daily. Patient at present is very somnolent. Please refer to examination below. Objective - Vital Signs Vital signs: Vital Signs Temp 98.2 F 08/26/24 12:00 Pulse 58 L 08/26/24 15:30 Resp 23 08/26/24 15:30 BP 139/66 08/26/24 15:30 Pulse Ox 100 08/26/24 15:30 FiO2 Intake & Output 08/25/24 08/26/24 08/26/24 18:59 06:59 18:59 Intake Total 255.148 6066.234 940 Output Total 500 700 400 Balance 259.133 373.234 540 Weight 54.8 kg Intake: IV 640 Magnesium Sulfate-D5w Pmx 100 1 gm In Dextrose/Water 1 100ml.bag @ 100 mls/hr IVPB Q1H [facility] Rx#: [id number] Potassium Chloride 10 meq 300 In Water For Injection 1 100ml.bag @ 100 mls/hr IVPB Q1HR [facility] Rx#: [id number] Sodium Chloride 0.9% 1, 240 000 ml @ 60 mls/hr IV . [id number] [facility] Rx#:[id number] Intake, IV Titration 9.133 773.234 Amount Clevidipine Butyrate 25 9.133 13.234 mg In Empty Bag 1 bag @ 1 MG/HR 2 mls/hr IV .Q24H [facility]ICIA Rx#:[id number] Potassium Chloride 10 meq 100 In Water For Injection 1 100ml.bag @ 100 mls/hr IVPB Q1HR [facility]ICIA Rx#: [id number] Sodium Chloride 0.9% 1, 660 000 ml @ 60 mls/hr IV . [id number] [facility]ICIA Rx#:[id number] Oral 750 300 300 Output: Urine 500 650 400 Post Void Residual 50 Other: Voiding Method Bedside Commode Bedside Commode Bedside Commode Diaper Diaper Diaper # Voids 1 1 - Exam Patient is fully alert and awake. Patient knows it is August and the year is 2024 and that she is in [facility] imported on [place]. Patient's pupils are equal, round and reacting, visual eason are full on confrontation, with no neglect, face is symmetric. Tongue protrudes the midline. On muscle strength testing there is no obvious pronator drift, and the strength is normal in arms and legs. Myoclonic jerks seems to have resolved. Tone and bulk of muscles normal. No seizure-like activity. - Labs CBC & Chem 7: 08/27/24 07:01 08/27/24 07:01 Labs: Abnormal Lab Results - Last 24 Hours (Table) 08/26/24 08/26/24 08/26/24 Range/Units 03:50 03:50 06:21 WBC 11.2 H (3.8-10.6) k/uL Neutrophils # 8.1 H (1.3-7.7) k/uL Sodium 132 L (137-145) mmol/L Potassium 3.3 L (3.5-5.1) mmol/L Chloride 91 L (98-107) mmol/L Carbon Dioxide 35 H (22-30) mmol/L BUN 22 H (7-17) mg/dL Glucose 158 H (74-99) mg/dL POC Glucose (mg/dL) 196 H (70-110) mg/dL 08/26/24 Range/Units 10:43 WBC (3.8-10.6) k/uL Neutrophils # (1.3-7.7) k/uL Sodium (137-145) mmol/L Potassium (3.5-5.1) mmol/L Chloride (98-107) mmol/L Carbon Dioxide (22-30) mmol/L BUN (7-17) mg/dL Glucose (74-99) mg/dL POC Glucose (mg/dL) 224 H (70-110) mg/dL Microbiology - Last 24 Hours (Table) 08/24/24 14:15 Blood Culture - Preliminary Blood Assessment and Plan Assessment: * Recurrent episodes of lethargy, difficulty walking, talking, unclear cause. Differential diagnosis is between TIAs, seizure, or transient metabolic encephalopathy. Patient's mentation much improved today. * Atrial fibrillation on Eliquis. * Left ICA stenosis 60% on CTA but on carotid duplex 50-69%. Repeat CTA head and neck showed no significant stenosis. Showed diminutive right A1 segment and right intracranial portion of vertebral artery system. * Recurrent episodes of confusion with word finding difficulties (had 4 prior episodes with previous admission), one episode prior to arrival and 2 episodes overnight. Differential as above. * History of seizures in the past and the daughter thinks her seizures was last 12 years ago and she used to have blank stare confused and was never on any antiseizure medication: She refused she had workup for the seizures in the past. * Presyncope status post pacemaker. It seems the patient has positive orthostatic on 06/20/2024 * Left upper lobe pulmonary nodule on CTA suspicious for neoplastic. * History of TIA * History of DVT * History of diabetes mellitus * History of fibromyalgia * Hypertension * Hyperlipidemia * History of sleep apnea on BiPAP * Chronic back pain * history of lung cancer post radiation, with probable recurrence * COPD, on home oxygen 2 L per minute * X tobacco use Plan: * Patient's mentation is back to normal. No further spells noted. Metabolic encephalopathy much improved. * Prolonged EEG for 1 hour performed today was abnormal due to background slowing and disorganization of at least moderate degree. There were also some brief beers of generalized suppression lasting for 1 second and sporadic appearance of triphasic waves. On station of these findings are suggestive of generalized cerebral dysfunction as can be seen with toxic metabolic encephalopathy. Clinical correlation is recommended. No focal or generalized epileptiform activity was seen. No electrographic seizure was recorded. * Patient has received a loading dose of Vimpat 200 mg IV, and now on Vimpat 100 mg twice a day. This will be continued. * Patient on last visit was switched from aspirin to Plavix 75 mg daily due to possible recurrent TIA and carotid stenosis. Patient is also on Eliquis 2.5mg bid. * Vascular surgery has seen the patient. They feel patient has likely left ICA stenosis around 60%. Because interventional cardiology is also on board, therefore vascular surgery is deferring management to laundry room attendant Dr. Lance. Vascular surgery has signed off. * Continue neurochecks * ABG was checked. All pH 7.48, pCO2 43, pO2 115 and saturation 98.9% on 28% FiO2. * Cardiac monitoring * PT OTand WET POUR M[employer]ER are consulted. * Hemoglobin A1c 7.0 * Lipid panel with cholesterol 139, LDL 53, HDL 64 and triglycerides 104. Continue Lipitor 80 mg daily. * Will defer the rest of medical management to primary and other specialist. * Discussed at length with patient's family and the nursing staff. * [facility]rolog[facility]
[2024-08-27 16:39] LABS: Glucose,Whole Blood 211 mg/dL (70-110)
[2024-08-27] MEDS: FLUCONAZOLE 100 MG TAB PO SCH (16:56)
[2024-08-27] MEDS: amLODIPine 10 MG TAB PO SCH (16:56)
[2024-08-27 19:47] LABS: Glucose,Whole Blood 205 mg/dL (70-110)
[2024-08-27] MEDS: MELATONIN 5 MG TABLET PO PRN (22:39)
--- NOTE | 2024-08-28 00:27 | P.PN ---
Subjective Progress Note Date: 08/27/24 HISTORY OF PRESENTING ILLNESS: 84-year-old with prior history of lung cancer, with some concerns of relapse, history of CAD status post PCI, atrial fibrillation, sick sinus syndrome with PPM She presented to the hospital 08/23/2024 because of strokelike symptoms, word finding difficulty, generalized weakness. She has had prior history of TIA/CVA. Patient's daughter mentioned that patient has been having episodes in which she would get weak, could not talk, cannot walk, her eyes are open and she is not responding. She has been evaluated by neurology for possible seizures versus TIA. Cardiology was consulted because patient was noticed to be hypertensive on admission. And because of her prior cardiovascular history. She denies any symptoms of chest pain chest pressure. She does not have any signs of fluid overload. On this admission she is in atrial paced rhythm with no signs of arrhythmias. She does have prior history of paroxysmal atrial fibrillation. Admission Vitals: 167/94, last night BP 202 over 109 mmHg Admission Labs: Hb 13.2, BUN 18, creatinine 0.7, A1c 7, TSH 0.9, Admission EKG: Atrial paced V sensed rhythm with nonspecific ST changes Imaging: CT head did not show any acute intracranial process. CT angiogram neck showed left carotid 60% disease. CT chest showed emphysema with possible relapse of lung cancer with lung nodule. Home cardiac medications Eliquis 5 twice daily, Lipitor 80, Plavix 75, Lasix 20, irbesartan 75, metoprolol succinate 100 twice daily Prior cardiac testing: Echo from 05/2024 shows EF 55%, no RWMA, PPM wire in RA and RV, mild left atrial dilatation, no significant valvular dysfunction Progress note 08/26/2024 Patient is seen and examined at bedside this a.m. Patient denies any chest pain chest pressure Sinus rhythm on telemetry Blood pressure is fluctuating but better controlled since admission Still reporting to be weak. EEG did not show any evidence of ongoing seizure activity. 08/28/2019 send Supine blood pressure is slightly elevated BP 162/70, amlodipine 10 mg were added but I feel that it would be too much for the patient considering her low weight, will reduce it to 5 mg. She also has concerns of orthostatic instability with hypotension on standing from sitting position. PHYSICAL EXAMINATION: Neck: Mild left carotid bruit, no jugular venous distention. Lungs: Clear to auscultation. Heart: Regular rate and rhythm, S1-S2, no murmur or rub. Abdomen: Soft nontender, positive bowel sounds. Extremities: No edema, intact distal pulses. Neuro: Alert, oritented, some word finding difficulty, no focal deficits. Detailed neuro exam was not performed. ASSESSMENT: # Hypertensive urgency with suspected TIA # Generalized weakness with word finding difficulty # Supine hypertension with orthostatic instability from tilt table test from 05/2024. # Stable CAD, prior history of PCI to LCx # Paroxysmal atrial fibrillation # Sick sinus syndrome status post PPM # Moderate left carotid stenosis 60% # History of lung cancer with possible relapse # Advance COPD # Essential hypertension, dyslipidemia, prior history of CVA/TIA # Ex-smoker PLAN: Because of her symptoms of generalized weakness, I will reduce her Lipitor dose to 40 mg, discontinue Lasix and be gentle with her antihypertensives. From a tilt able test it did show that she has orthostatic instability with supine hypertension. Eliquis 2.5 mg twice daily. (Low-dose because of age and weight) Plavix 75 mg daily Reduce Lipitor to 40, Discontinue Lasix Metoprolol XL 50 mg twice daily Losartan 25 mg daily Add amlodipine 5 mg in PM. Perform orthostatic vital signs tomorrow a.m. If blood pressure is normal, orthostatic vital signs are within normal limits, patient can be discharged from cardiovascular standpoint with recommended outpatient follow-up. Objective - Vital Signs Vital signs: Vital Signs Temp 97.5 F L 08/27/24 19:44 Pulse 62 08/27/24 19:44 Resp 18 08/27/24 19:44 BP 117/47 08/27/24 19:44 Pulse Ox 98 08/27/24 19:44 FiO2 Intake & Output 08/27/24 08/27/24 08/28/24 06:59 18:59 06:59 Intake Total 540 20 Output Total 0 Balance 540 20 Weight 48.5 kg Intake: IV 20 Invasive Line 4 20 Oral 540 Output: Urine 0 Other: Voiding Method Toilet Toilet Toilet # Voids 2 1 1 - Labs CBC & Chem 7: 08/27/24 07:01 08/27/24 07:01 Labs: Abnormal Lab Results - Last 24 Hours (Table) 08/27/24 08/27/24 08/27/24 Range/Units 06:01 07:01 07:01 MCHC 30.2 L (31.0-37.0) g/dL Sodium 134 L (137-145) mmol/L Chloride 96 L (98-107) mmol/L Carbon Dioxide 36 H (22-30) mmol/L BUN 32 H (7-17) mg/dL Glucose 209 H (74-99) mg/dL POC Glucose (mg/dL) 207 H (70-110) mg/dL Total Protein 5.9 L (6.3-8.2) g/dL 08/27/24 08/27/24 08/27/24 Range/Units 11:45 16:37 19:45 MCHC (31.0-37.0) g/dL Sodium (137-145) mmol/L Chloride (98-107) mmol/L Carbon Dioxide (22-30) mmol/L BUN (7-17) mg/dL Glucose (74-99) mg/dL POC Glucose (mg/dL) 202 H 211 H 205 H (70-110) mg/dL Total Protein (6.3-8.2) g/dL Microbiology - Last 24 Hours (Table) 08/24/24 14:15 Blood Culture - Preliminary Blood
--- NOTE | 2024-08-28 02:37 | PN ---
PROGRESS NOTE DATE OF SERVICE: 08/27/2024 SUBJECTIVE: This is an 84-year-old woman, who was admitted with generalized weakness, fatigue, and possible history of pneumonia and is being closely monitored. The patient also had change in mental status, possibly multifactorial. The patient has a history of lung cancer. Also, multiple consultants are following the patient closely. The patient continues to be mildly confused at this time. PAST MEDICAL HISTORY: None. REVIEW OF SYSTEMS: Could not be done. CURRENT MEDICATIONS: Reviewed. PHYSICAL EXAMINATION: VITAL SIGNS: Pulse is 63, blood pressure 160/65, respirations 18. CHEST: A few scattered rhonchi. ABDOMEN: Soft. NERVOUS SYSTEM: Nonfocal. LABORATORY DATA: Reviewed. ASSESSMENT: 1. Change in mental status, recurrent, possible acute transient ischemic attack. 2. Possible pneumonia. 3. Lung cancer, right. 4. Hypertension. 5. Hyperlipidemia. 6. Chronic obstructive pulmonary disease. 7. Chronic hypoxic respiratory failure. 8. Multiple complex medical issues. RECOMMENDATIONS: Recommended to continue with current management, continue with symptomatic treatment. Otherwise, continue with anticoagulation. Monitor blood pressure closely. Guarded prognosis. Further recommendations to follow. See orders for details. I would add Norvasc to the current regimen as well. MMODL / IJN: [id number] / SEBAS
[2024-08-28 04:50] LABS: Basophils # (A) 0.1 k/uL (0-0.2); Basophils % (A) 1 %; Eosinophils # (A) 0.3 k/uL (0-0.7); Eosinophils % (A) 3 %; HCT 39.6 % (34.0-46.0); HGB 12.5 gm/dL (11.4-16.0); Lymphocytes # (A) 2.4 k/uL (1.0-4.8); Lymphocytes % (A) 21 %; MCHC 31.6 g/dL (31.0-37.0); MCV 91.8 fL (80.0-100.0); Mean Platelet Volume 10.2; Monocytes # (A) 0.7 k/uL (0-1.0); Monocytes % (A) 6 %; Neutrophils # (A) 7.8 k/uL (1.3-7.7); Neutrophils % (A) 68 %; Platelet Count 176 k/uL (150-450); RBC 4.31 m/uL (3.80-5.40); RDW 13.7 % (11.5-15.5); WBC 11.5 k/uL (3.8-10.6)
[2024-08-28 06:38] LABS: Glucose,Whole Blood 165 mg/dL (70-110)
[2024-08-28 08:12] LABS: African American GFR (CKD) >90 (>60 ml/min/1.73 sqM); Anion Gap 8 mmol/L; Blood Urea Nitrogen 29 mg/dL (7-17); Calcium 10.1 mg/dL (8.4-10.2); Carbon Dioxide 32 mmol/L (22-30); Chloride 96 mmol/L (98-107); Glucose 159 mg/dL (74-99); Non-African American GFR(CKD) 84 (>60 ml/min/1.73 sqM); Potassium 4.7 mmol/L (3.5-5.1); Sodium 136 mmol/L (137-145)
[2024-08-28] MEDS: amLODIPine 5 MG TAB PO SCH (09:04)
--- NOTE | 2024-08-28 11:40 | P.PN ---
Subjective Progress Note Date: 08/28/24 This is a 84-year-old female patient with transferred to the intensive care unit for an acute hyper tensive emergency. The patient is known to have COPD, lung mass that was treated with SBRT in the past and subsequently her condition has progressed and the patient has bilateral pulmonary nodules at this point and this has been confirmed on an earlier PET/CT. Tissue diagnosis has been established on this patient. The patient has been having episodes of TIA. She was recently admitted on 08/17/2024 for acute confusion, aphasia, difficulty in finding words and headaches. At that time, the patient was further investigated, she clinically improved and she was discharged home on 08/20/2024 and the patient has been taking a combination of aspirin and anticoagulation with Eliquis with the patient has history of paroxysmal atrial fibrillation. Previous neurologic evaluation was done. The patient underwent a carotid Dopplers that showed bilateral moderate carotid plaques and there was no evidence of a hemodynamically significant stenosis on the right. There was approximately 50 to 69% stenosis of the left extending to the left proximal internal carotid artery. CTA of the head and the neck was done that shows stable moderate to severe focal plaquing involving the proximal left ICA and the area of stenosis was in the order of 60%. CAT scan of the brain showed no evidence of any acute intracranial hemorrhage or midline shift. The LDL cholesterol was 53. TSH was 1.38 and the patient had another CAT scan of the chest prior to discharge that showed no evidence of any acute intracranial process, possibility of a remote regular injury along with advanced nonspecific white matter ischemic changes were noted. The patient was unable to do an MRI due to her having a pacemaker. She was receiving antiepileptic in the past and based on that, the patient was restarted on Vimpat 50 mg p.o. twice daily. She was kept on aspirin and combination with anticoagulation with Eliquis. As the p atient regained neurologic recovered, she was given diagnosis of TIA. The patient was doing well at home. However, her condition and decompensated and she developed difficulties in talking and for that reason she was brought into the hospital. Overnight, the patient developed also headache and an acute hypertensive emergency where her blood pressure was noted to be quite elevated and she developed a systolic blood pressure above 200. Based on that, the patient got transferred to the intensive care unit and she was started on a Cleviprex drip for blood pressure control the Cleviprex is currently running at 2 mg an hour. Neurology was again consulted. A repeat CT scan of the brain that was done on 08/24/2024, showed no acute intracranial process and repeat CT angiogram of the c of the head showed no evidence of any dissection of cervical internal carotid arteries or vertebral arteries. No evidence of any significant stenosis. No evidence of any intracranial high-grade stenosis or aneurysm. There was a dominant left vertebral artery system. Furthermore, no seizure activity has been described or noted by the medical staff. I evaluated this patient in the ICU this morning. Her blood pressure was under better control. Noted severe avoiding a abrupt drop in the blood pressure or aggressive antihypertensive treatment. The patient is currently on Cleviprex running at 2 mg an hour and the patient is also on metoprolol 50 mg p.o. twice a day and Cozaar 25 mg p.o. daily. According to the family, the patient is having significant fluctuation in her blood pressure with episodes of acute hypertensive reactions. No focal neurological deficits. The patient is lethargic. She is able to communicate. Her current cardiac rhythm is sinus. She has a permanent pacemaker in place. She is also known to have coronary artery disease with previous PCI to circumflex. She has sick sinus syndrome with previous pacemaker insertion. Blood work is essentially within normal limits. Procalcitonin level is at 0.05. She is currently on 2 L of oxygen by nasal cannula. On 08/26/2024, the patient is being seen for a follow-up. The patient is neurologically doing better. She is awake and alert. Communicating. No focal neurological deficits. This morning, she is off the Cleviprex drip. She is maintained on a combination of losartan 25 mg p.o. daily and metoprolol 50 mg p.o. twice daily. Blood pressure is under better control and the most recent BP was 126/52. Noted the CTA of the renal arteries showed no no evidence of any renal artery stenosis. Cardiac rhythm is sinus. She is afebrile. She has a pacemaker in place. No headaches. No seizure activity. The white second 11.2 with a hemoglobin 11.9 and platelet count of 195. Sodium is 132 with a potassium level of 3.3, BUN 22 with a creatinine of 0.8. The patient has no headaches. The patient is currently on anticoagulation with Eliquis 2.5 mg p.o. twice a day and Plavix 75 mg p.o. daily. No other significant events. Family at the bedside. 08/27/2024, patient is being seen and follow-up. The patient is stable. Blood pressure continues to fluctuate although there is no significant hypertensive episodes. Most recent BP is 154/70. The patient is currently on a combination of metoprolol 50 mg p.o. twice daily and losartan 25 mg p.o. daily. Rest of the medication remains unchanged. She is currently on Plavix and Eliquis. No other new complaints for now. She was transferred out of the intensive care unit yesterday and she is currently on a telemetry unit.Blood work from today shows a white cell count of 10, hemoglobin 11.6 and a platelet count of 170. Sodium levels at 134, bicarb is at 36, BUN 32 with a creatinine of 0.7. Normal LFTs. On today's evaluation 08/28/2024, the patient is being seen for a follow-up. The patient is resting comfortably in bed. No focal neurologic symptoms or any new onset symptoms over the past 24 hours. Blood pressure remains stable although is still hypertensive and the patient is being treated by cardiology. She remains up to his of oxygen by nasal cannula with a pulse ox of 97%. In terms of blood pressure control, she remains on a combination of Toprol-XL 50 mg twice daily and Cozaar 25 mg p.o. daily. Norvasc was also added at a dose of 5 mg p.o. daily based on her ongoing and persistent elevated blood pressure. No headaches this morning. No respiratory difficulties. Objective - Vital Signs Vital signs: Vital Signs Temp 97.7 F 08/28/24 02:00 Pulse 75 08/28/24 02:00 Resp 16 08/28/24 02:00 BP 169/76 08/28/24 02:00 Pulse Ox 97 08/28/24 02:00 FiO2 Intake & Output 08/27/24 08/28/24 08/28/24 18:59 06:59 18:59 Intake Total 20 1650 Balance 20 1650 Weight 48.5 kg Intake: IV 20 Invasive Line 4 20 Oral 1650 Other: Voiding Method Toilet Toilet # Voids 1 4 - Exam The patient appeared well nourished and normally developed. Vital signs as documented. Head exam is unremarkable. No scleral icterus or corneal arcus noted. Neck is without jugular venous distension, thyromegaly, or carotid bruits. Carotid upstrokes are brisk bilaterally. Lungs are clear to auscultation and percussion. Cardiac exam reveals the PMI to be normally sized and situated. Rhythm is regular. First and second heart sounds normal. No murmurs, rubs or gallops. Abdominal exam reveals normal bowel sounds, no masses, no organomegaly and no aortic enlargement. Extremities are nonedematous and both femoral and pedal pulses are normal. Examination of the skin revealed no evidence of significant rashes, suspicious appearing nevi or other concerning lesions. Neurologically, the patient is awake and alert and the patient does not have any focal neurological deficit. Cranial nerves are essentially intact. - Labs CBC & Chem 7: 08/28/24 02:46 08/28/24 06:55 Labs: Abnormal Lab Results - Last 24 Hours (Table) 08/27/24 08/27/24 08/27/24 Range/Units 11:45 16:37 19:45 WBC (3.8-10.6) k/uL Neutrophils # (1.3-7.7) k/uL Sodium (137-145) mmol/L Chloride (98-107) mmol/L Carbon Dioxide (22-30) mmol/L BUN (7-17) mg/dL Glucose (74-99) mg/dL POC Glucose (mg/dL) 202 H 211 H 205 H (70-110) mg/dL 08/28/24 08/28/24 08/28/24 Range/Units 02:46 06:36 06:55 WBC 11.5 H (3.8-10.6) k/uL Neutrophils # 7.8 H (1.3-7.7) k/uL Sodium 136 L (137-145) mmol/L Chloride 96 L (98-107) mmol/L Carbon Dioxide 32 H (22-30) mmol/L BUN 29 H (7-17) mg/dL Glucose 159 H (74-99) mg/dL POC Glucose (mg/dL) 165 H (70-110) mg/dL Microbiology - Last 24 Hours (Table) 08/24/24 14:15 Blood Culture - Preliminary Blood Assessment and Plan Plan: Acute neurologic deficits, recurrent, suggestive of a TIA. Clinically recovered and the patient is neurologic's status is stable and normalized and she is back to her baseline. Possibility of an acute hypertensive encephalopathy cannot be completely ruled out. Noted, the patient has had no clear indication for any seizure activity. Carotid Dopplers earlier showed left ICA stenosis in the order of 60%. Nevertheless, the repeat CT angiogram of the brain that was done on 08/24/2024 shows no evidence of any critically significant stenosis involving the intracranial arteries. No evidence of any bleeding. Cardiac rhythm is sinus at this point. History of seizure activity, EEG was negative and the patient remains on Vimpat. Hypertension with labile blood pressure. the BP is stable for now the patient is currently on a combination of metoprolol and losartan. Off clevidipine drip. Lung masses, bilateral, suggestive of advanced disease. The patient was given SBRT in the past. Most recent PET/CT done on this patient on May 2024 showed bilateral lung nodules and hilar and mediastinal lymphadenopathy consistent with metastatic disease. A tissue biopsy has not been established due to her advanced COPD and poor baseline performance and functional status. As such, the patient has not been offered any further treatment. Coronary artery disease with previous PCI and stenting of the circumflex. Presents on function with an ejection fraction of 55% without any significant valvular heart disease based on echocardiogram from May 2024 History of sick sinus syndrome, post pacemaker insertion Paroxysmal atrial fibrillation, current rhythm is sinus and the patient is currently on anticoagulation with Eliquis Hyperlipidemia Former smoker COPD which is currently inactive and stable Previous history of DVT Fibromyalgia Acid reflux Obstructive sleep apnea Peripheral vascular disease Macular degeneration Plan Neurologically stable and intact No new neurologic episodes Blood pressure is under better control Continue Plavix Continue anticoagulation with Eliquis 2.5 mg p.o. twice daily Continue Vimpat CTA of the renal arteries were negative. Blood pressure is being managed by cardiology. BP remains elevated with a combination of metoprolol 50 mg p.o. twice daily and losartan 25 mg p.o. daily and Norvasc 5 mg p.o. daily was added on today's evaluation. Continue maintenance of prednisone 5 mg p.o. daily. Continue Lipitor 40 mg p.o. daily Will continue to follow. No active pulmonary or critical care issues at this point.
[2024-08-28 12:02] LABS: Glucose,Whole Blood 214 mg/dL (70-110)
--- NOTE | 2024-08-28 12:20 | P.PN ---
Subjective Progress Note Date: 08/27/24 08/27/2024: Patient was seen for a follow-up. Patient states that she feels weak, her arms were jerking today. No further episodes of unresponsiveness. She had some episode in which she wanted to put things together that she wanted to say. She is also seeing some objects which are not there. She states it is harder to talk at times due to throat dry. 08/26/2024: Patient was seen for a follow-up. Patient is doing remarkably better. Her headache earlier today was 6/10, but now is completely gone 0/10. Patient does have history of macular degeneration for about 15 to 20 years. It may be slightly worse. Patient has had hallucinations recently, which was felt to be related to his macular degeneration. Her central vision is more affected from macular degeneration. This morning patient was seeing things that were not there. She feels some slight dizziness when standing. When she was walking to the bathroom, she was not dizzy. 08/25/2024: Patient was seen for follow-up. Patient's daughter Karen, and patient's son-in-law were also present. Patient is very somnolent. Patient had a stroke code activated last night at 10:10 PM. Patient was noted to have left facial droop. Nursing staff discussed with interventional neurologist Dr. Ferrari, who recommended CT and CTA of head and neck. Patient's symptoms improve, then at 3:44 AM, patient has repeat neuro deficits. Patient was transferred to [facility]. Patient was given Vimpat 200 mg IV times loading dose followed by Vimpat 100 mg IV twice a day. Patient prior to this was on Vimpat 50 mg twice a day. CT head showed no acute intracranial process. Nonspecific white matter changes, likely secondary to chronic small vessel ischemic disease. CTA of head and neck reported no evidence of dissection of the cervical internal carotid arteries or vertebral arteries. No evidence of significant stenosis at the carotid bifurcations. No evidence of intracranial high-grade stenosis or intracranial aneurysm. Diminutive right A1 segment. Dominant left vertebral artery system with more diminutive right intracranial portion of the vertebral artery system. Patient currently on Eliquis 2.5 mg twice a day and Plavix 75 mg daily. Patient at present is very somnolent. Please refer to examination below. Objective - Vital Signs Vital signs: Vital Signs Temp 98 F 04/05/25 15:21 Pulse 63 08/27/24 15:21 Resp 18 08/27/24 15:21 BP 165/65 08/27/24 15:21 Pulse Ox 99 08/27/24 15:21 FiO2 Intake & Output 08/27/24 08/27/24 08/28/24 06:59 18:59 06:59 Intake Total 540 20 Output Total 0 Balance 540 20 Weight 48.5 kg Intake: IV 20 Invasive Line 4 20 Oral 540 Output: Urine 0 Other: Voiding Method Toilet Toilet # Voids 2 1 - Exam Patient is fully alert and awake. Patient knows it is August and the year is 2024 and that she is in [place], [place]. Patient's pupils are equal, round and reacting, visual eason are full on confrontation, with no neglect, face is symmetric. Tongue protrudes the midline. On muscle strength testing there is no obvious pronator drift, and the strength is normal in arms and legs. Myoclonic jerks seems to have resolved. Tone and bulk of muscles normal. No seizure-like activity. - Labs CBC & Chem 7: 08/28/24 02:46 08/28/24 06:55 Labs: Abnormal Lab Results - Last 24 Hours (Table) 08/26/24 08/27/24 08/27/24 Range/Units 19:47 06:01 07:01 MCHC (31.0-37.0) g/dL Sodium 134 L (137-145) mmol/L Chloride 96 L (98-107) mmol/L Carbon Dioxide 36 H (22-30) mmol/L BUN 32 H (7-17) mg/dL Glucose 209 H (74-99) mg/dL POC Glucose (mg/dL) 174 H 207 H (70-110) mg/dL Total Protein 5.9 L (6.3-8.2) g/dL 08/27/24 08/27/24 08/27/24 Range/Units 07:01 11:45 16:37 MCHC 30.2 L (31.0-37.0) g/dL Sodium (137-145) mmol/L Chloride (98-107) mmol/L Carbon Dioxide (22-30) mmol/L BUN (7-17) mg/dL Glucose (74-99) mg/dL POC Glucose (mg/dL) 202 H 211 H (70-110) mg/dL Total Protein (6.3-8.2) g/dL Microbiology - Last 24 Hours (Table) 08/24/24 14:15 Blood Culture - Preliminary Blood Assessment and Plan Assessment: * Recurrent episodes of lethargy, difficulty walking, talking, unclear cause. Differential diagnosis is between TIAs, seizure, or transient metabolic encephalopathy. Patient's mentation much improved today. * Atrial fibrillation on Eliquis. * Left ICA stenosis 60% on CTA but on carotid duplex 50-69%. Repeat CTA head and neck showed no significant stenosis. Showed diminutive right A1 segment and right intracranial portion of vertebral artery system. * Recurrent episodes of confusion with word finding difficulties (had 4 prior episodes with previous admission), one episode prior to arrival and 2 episodes overnight. Differential as above. * History of seizures in the past and the daughter thinks her seizures was last 12 years ago and she used to have blank stare confused and was never on any antiseizure medication: She refused she had workup for the seizures in the past. * Presyncope status post pacemaker. It seems the patient has positive orthostatic on 06/20/2024 * Left upper lobe pulmonary nodule on CTA suspicious for neoplastic. * History of TIA * History of DVT * History of diabetes mellitus * History of fibromyalgia * Hypertension * Hyperlipidemia * History of sleep apnea on BiPAP * Chronic back pain * history of lung cancer post radiation, with probable recurrence * COPD, on home oxygen 2 L per minute * X tobacco use Plan: * Patient's mentation is back to normal. No further spells noted. Metabolic encephalopathy much improved. * Prolonged EEG for 1 hour performed 08/25/2024 was abnormal due to background slowing and disorganization of at least moderate degree. There were also some brief beers of generalized suppression lasting for 1 second and sporadic appearance of triphasic waves. On station of these findings are suggestive of generalized cerebral dysfunction as can be seen with toxic metabolic encephalopathy. Clinical correlation is recommended. No focal or generalized epileptiform activity was seen. No electrographic seizure was recorded. * Patient has received a loading dose of Vimpat 200 mg IV, and now on Vimpat 100 mg twice a day. This will be continued. * Patient on last visit was switched from aspirin to Plavix 75 mg daily due to possible recurrent TIA and carotid stenosis. Patient is also on Eliquis 2.5mg bid. * Vascular surgery has seen the patient. They feel patient has likely left ICA stenosis around 60%. Because interventional cardiology is also on board, therefore vascular surgery is deferring management to sugar cane farm manager Dr. Lance. Vascular surgery has signed off. Patient may benefit from left ICA stenting. I will discuss case with cardiology. * Continue neurochecks * ABG was checked. All pH 7.48, pCO2 43, pO2 115 and saturation 98.9% on 28% FiO2. * Cardiac monitoring * PT [facility] are consulted. * Hemoglobin A1c 7.0 * Lipid panel with cholesterol 139, LDL 53, HDL 64 and triglycerides 104. Continue Lipitor 80 mg daily. * Will defer the rest of medical management to primary and other specialist. * Discussed at length with patient's family and the nursing staff. * Neurologically clear for transfer to [facility].
--- NOTE | 2024-08-28 16:18 | P.PN ---
Subjective Progress Note Date: 08/28/24 08/28/2024: Patient was seen for follow-up. Patient is laying comfortably in the bed. Patient states when she is standing up, to use the bathroom, she feels dizzy. When she is laying down, she feels nauseous. She states she just did jerks a lot. No episodes of unresponsiveness. 08/27/2024: Patient was seen for a follow-up. Patient states that she feels weak, her arms were jerking today. No further episodes of unresponsiveness. She had some episode in which she wanted to put things together that she wanted to say. She is also seeing some objects which are not there. She states it is harder to talk at times due to throat dry. 08/26/2024: Patient was seen for a follow-up. Patient is doing remarkably better. Her headache earlier today was 6/10, but now is completely gone 0/10. Patient does have history of macular degeneration for about 15 to 20 years. It may be slightly worse. Patient has had hallucinations recently, which was felt to be related to his macular degeneration. Her central vision is more affected from macular degeneration. This morning patient was seeing things that were not there. She feels some slight dizziness when standing. When she was walking to the bathroom, she was not dizzy. 08/25/2024: Patient was seen for follow-up. Patient's daughter Karen, and patient's son-in-law were also present. Patient is very somnolent. Patient had a stroke code activated last night at 10:10 PM. Patient was noted to have left facial droop. Nursing staff discussed with interventional neurologist Dr. Ferrari, who recommended CT and CTA of head and neck. Patient's symptoms improve, then at 3:44 AM, patient has repeat neuro deficits. Patient was transferred to [facility]. Patient was given Vimpat 200 mg IV times loading dose followed by Vimpat 100 mg IV twice a day. Patient prior to this was on Vimpat 50 mg twice a day. CT head showed no acute intracranial process. Nonspecific white matter changes, likely secondary to chronic small vessel ischemic disease. CTA of head and neck reported no evidence of dissection of the cervical internal carotid arteries or vertebral arteries. No evidence of significant stenosis at the carotid bifu rcations. No evidence of intracranial high-grade stenosis or intracranial aneurysm. Diminutive right A1 segment. Dominant left vertebral artery system with more diminutive right intracranial portion of the vertebral artery system. Patient currently on Eliquis 2.5 mg twice a day and Plavix 75 mg daily. Patient at present is very somnolent. Please refer to examination below. Objective - Vital Signs Vital signs: Vital Signs Temp 97.7 F 08/28/24 08:00 Pulse 85 08/28/24 08:00 Resp 17 08/28/24 08:00 BP 172/75 08/28/24 08:00 Pulse Ox 97 08/28/24 08:00 FiO2 Intake & Output 08/27/24 08/28/24 08/28/24 18:59 06:59 18:59 Intake Total 20 1650 Balance 20 1650 Weight 48.5 kg Intake: IV 20 Invasive Line 4 20 Oral 1650 Other: Voiding Method Toilet Toilet Toilet # Voids 1 4 - Exam Patient is fully alert and awake. Patient knows it is August and the year is 2024 and that she is in [place], [place]. Patient's pupils are equal, round and reacting, visual eason are full on confrontation, with no neglect, face is symmetric. Tongue protrudes the midline. On muscle strength testing there is no obvious pronator drift, and the strength is normal in arms and legs. Myoclonic jerks seems to have resolved. Tone and bulk of muscles normal. No seizure-like activity. - Labs CBC & Chem 7: 08/28/24 02:46 08/28/24 06:55 Labs: Abnormal Lab Results - Last 24 Hours (Table) 08/27/24 08/27/24 08/28/24 Range/Units 16:37 19:45 02:46 WBC 11.5 H (3.8-10.6) k/uL Neutrophils # 7.8 H (1.3-7.7) k/uL Sodium (137-145) mmol/L Chloride (98-107) mmol/L Carbon Dioxide (22-30) mmol/L BUN (7-17) mg/dL Glucose (74-99) mg/dL POC Glucose (mg/dL) 211 H 205 H (70-110) mg/dL 08/28/24 08/28/24 08/28/24 Range/Units 06:36 06:55 12:01 WBC (3.8-10.6) k/uL Neutrophils # (1.3-7.7) k/uL Sodium 136 L (137-145) mmol/L Chloride 96 L (98-107) mmol/L Carbon Dioxide 32 H (22-30) mmol/L BUN 29 H (7-17) mg/dL Glucose 159 H (74-99) mg/dL POC Glucose (mg/dL) 165 H 214 H (70-110) mg/dL Microbiology - Last 24 Hours (Table) 08/24/24 14:15 Blood Culture - Preliminary Blood Assessment and Plan Assessment: * Recurrent episodes of lethargy, difficulty walking, talking, unclear cause. Differential diagnosis is between TIAs, seizure, or transient metabolic encephalopathy. Patient's mentation much improved today. * Atrial fibrillation on Eliquis. * Left ICA stenosis 60% on CTA but on carotid duplex 50-69%. Repeat CTA head and neck showed no significant stenosis. Showed diminutive right A1 segment and right intracranial portion of vertebral artery system. * Recurrent episodes of confusion with word finding difficulties (had 4 prior episodes with previous admission), one episode prior to arrival and 2 episodes overnight. Differential as above. * History of seizures in the past and the daughter thinks her seizures was last 12 years ago and she used to have blank stare confused and was never on any antiseizure medication: She refused she had workup for the seizures in the past. * Presyncope status post pacemaker. It seems the patient has positive orthostatic on 06/20/2024 * Left upper lobe pulmonary nodule on CTA suspicious for neoplastic. * History of TIA * History of DVT * History of diabetes mellitus * History of fibromyalgia * Hypertension * Hyperlipidemia * History of sleep apnea on BiPAP * Chronic back pain * history of lung cancer post radiation, with probable recurrence * COPD, on home oxygen 2 L per minute * X tobacco use Plan: * Patient's mentation is back to normal. No further spells noted. Metabolic encephalopathy much improved. * Prolonged EEG for 1 hour performed 08/25/2024 was abnormal due to background slowing and disorganization of at least moderate degree. There were also some brief beers of generalized suppression lasting for 1 second and sporadic a ppearance of triphasic waves. On station of these findings are suggestive of generalized cerebral dysfunction as can be seen with toxic metabolic encephalopathy. Clinical correlation is recommended. No focal or generalized epileptiform activity was seen. No electrographic seizure was recorded. * Patient has received a loading dose of Vimpat 200 mg IV, and now on Vimpat 100 mg twice a day. This will be continued. * Patient on last visit was switched from aspirin to Plavix 75 mg daily due to possible recurrent TIA and carotid stenosis. Patient is also on Eliquis 2.5mg bid. * Vascular surgery has seen the patient. They feel patient has likely left ICA stenosis around 60%. Because interventional cardiology is also on board, therefore vascular surgery is deferring management to bowling floor manager Dr. Lance. Vascular surgery has signed off. Patient may benefit from left ICA stenting. Discussed with Dr. Cottrell in detail, who will discuss with Dr. Lance about considering left ICA stenting for recurrent possible TIAs. * Continue neurochecks * ABG was checked. All pH 7.48, pCO2 43, pO2 115 and saturation 98.9% on 28% FiO2. * Cardiac monitoring * PT OTand LEAD MACHINIST are consulted. * Hemoglobin A1c 7.0 * Lipid panel with cholesterol 139, LDL 53, HDL 64 and triglycerides 104. Continue Lipitor 80 mg daily. * Will defer the rest of medical management to primary and other specialist. * Discussed at length with patient's family and the nursing staff. * Neurologically clear for transfer to [facility], if cleared by medicine and interventional cardiology * Dr. Drew Pino to resume neurology service in the morning.
--- NOTE | 2024-08-28 16:37 | P.PN ---
Subjective Progress Note Date: 08/28/24 HISTORY OF PRESENTING ILLNESS: 84-year-old with prior history of lung cancer, with some concerns of relapse, history of CAD status post PCI, atrial fibrillation, sick sinus syndrome with PPM She presented to the hospital 08/23/2024 because of strokelike symptoms, word finding difficulty, generalized weakness. She has had prior history of TIA/CVA. Patient's daughter mentioned that patient has been having episodes in which she would get weak, could not talk, cannot walk, her eyes are open and she is not responding. She has been evaluated by neurology for possible seizures versus TIA. Cardiology was consulted because patient was noticed to be hypertensive on admission. And because of her prior cardiovascular history. She denies any symptoms of chest pain chest pressure. She does not have any signs of fluid overload. On this admission she is in atrial paced rhythm with no signs of arrhythmias. She does have prior history of paroxysmal atrial fibrillation. Admission Vitals: 167/94, last night BP 202 over 109 mmHg Admission Labs: Hb 13.2, BUN 18, creatinine 0.7, A1c 7, TSH 0.9, Admission EKG: Atrial paced V sensed rhythm with nonspecific ST changes Imaging: CT head did not show any acute intracranial process. CT angiogram neck showed left carotid 60% disease. CT chest showed emphysema with possible relapse of lung cancer with lung nodule. Home cardiac medications Eliquis 5 twice daily, Lipitor 80, Plavix 75, Lasix 20, irbesartan 75, metoprolol succinate 100 twice daily Prior cardiac testing: Echo from 05/2024 shows EF 55%, no RWMA, PPM wire in RA and RV, mild left atrial dilatation, no significant valvular dysfunction Progress note 08/26/2024 Patient is seen and examined at bedside this a.m. Patient denies any chest pain chest pressure Sinus rhythm on telemetry Blood pressure is fluctuating but better controlled since admission Still reporting to be weak. EEG did not show any evidence of ongoing seizure activity. 08/27/2024 Supine blood pressure is slightly elevated BP 162/70, amlodipine 10 mg were added but I feel that it would be too much for the patient considering her low weight, will reduce it to 5 mg. She also has concerns of orthostatic instability with hypotension on standing from sitting position. 08/28/2024 BP 126/49, heart rate 60, mild lightheadedness, no new cardiovascular events Hemodynamically stable otherwise. Neurology recommended to get evaluation for carotid intervention considering her recent history of TIA/CVA with 60% carotid disease on left side. PHYSICAL EXAMINATION: Neck: Mild left carotid bruit, no jugular venous distention. Lungs: Clear to auscultation. Heart: Regular rate and rhythm, S1-S2, no murmur or rub. Abdomen: Soft nontender, positive bowel sounds. Extremities: No edema, intact distal pulses. Neuro: Alert, oritented, some word finding difficulty, no focal deficits. Detailed neuro exam was not performed. ASSESSMENT: # Hypertensive urgency with suspected TIA # Generalized weakness with word finding difficulty # Supine hypertension with orthostatic instability from tilt table test from 05/2024. # Stable CAD, prior history of PCI to LCx # Paroxysmal atrial fibrillation # Sick sinus syndrome status post PPM # Moderate left carotid stenosis 60% # History of lung cancer with possible relapse # Advance COPD # Essential hypertension, dyslipidemia, prior history of CVA/TIA # Ex-smoker PLAN: Because of her symptoms of generalized weakness, I will reduce her Lipitor dose to 40 mg, discontinue Lasix and be gentle with her antihypertensives. From a tilt able test it did show that she has orthostatic instability with supine hypertension. Eliquis 2.5 mg twice daily. (Low-dose because of age and weight) Plavix 75 mg daily Reduce Lipitor to 40, Discontinue Lasix Metoprolol XL 50 mg twice daily Losartan 25 mg daily Add amlodipine 5 mg in PM. Perform orthostatic vital signs tomorrow a.m. Will discuss possibility and feasibility of carotid intervention with Dr. Rodriguez If blood pressure is normal, orthostatic vital signs are within normal limits, patient can be discharged from cardiovascular standpoint with recommended outpatient follow-up. Objective - Vital Signs Vital signs: Vital Signs Temp 98.3 F 08/28/24 14:00 Pulse 60 08/28/24 14:00 Resp 17 08/28/24 14:00 BP 126/49 08/28/24 14:00 Pulse Ox 99 08/28/24 16:10 FiO2 Intake & Output 08/27/24 08/28/24 08/28/24 18:59 06:59 18:59 Intake Total 20 1650 Balance 20 1650 Weight 48.5 kg Intake: IV 20 Invasive Line 4 20 Oral 1650 Other: Voiding Method Toilet Toilet Toilet # Voids 1 4 - Labs CBC & Chem 7: 08/28/24 02:46 08/28/24 06:55 Labs: Abnormal Lab Results - Last 24 Hours (Table) 08/27/24 08/27/24 08/28/24 Range/Units 16:37 19:45 02:46 WBC 11.5 H (3.8-10.6) k/uL Neutrophils # 7.8 H (1.3-7.7) k/uL Sodium (137-145) mmol/L Chloride (98-107) mmol/L Carbon Dioxide (22-30) mmol/L BUN (7-17) mg/dL Glucose (74-99) mg/dL POC Glucose (mg/dL) 211 H 205 H (70-110) mg/dL 08/28/24 08/28/24 08/28/24 Range/Units 06:36 06:55 12:01 WBC (3.8-10.6) k/uL Neutrophils # (1.3-7.7) k/uL Sodium 136 L (137-145) mmol/L Chloride 96 L (98-107) mmol/L Carbon Dioxide 32 H (22-30) mmol/L BUN 29 H (7-17) mg/dL Glucose 159 H (74-99) mg/dL POC Glucose (mg/dL) 165 H 214 H (70-110) mg/dL Microbiology - Last 24 Hours (Table) 08/24/24 14:15 Blood Culture - Preliminary Blood
[2024-08-28 16:55] LABS: Glucose,Whole Blood 292 mg/dL (70-110)
[2024-08-28 22:10] LABS: Glucose,Whole Blood 220 mg/dL (70-110)
--- NOTE | 2024-08-29 00:48 | PN ---
PROGRESS NOTE DATE OF SERVICE: 08/28/2024 SUBJECTIVE: This is an 84-year-old woman, who was admitted with change in mental status, recurrent headache, TIA also. The patient has possible hypertensive encephalopathy also. The patient is being closely monitored. PAST MEDICAL HISTORY: Reviewed. REVIEW OF SYSTEMS: A 14-point review of systems is negative except as mentioned earlier. CURRENT MEDICATIONS: Reviewed. PHYSICAL EXAMINATION: VITAL SIGNS: Pulse is 85, blood pressure 170/74, respirations 17. CHEST: A few scattered rhonchi and crackles. ABDOMEN: Soft. NERVOUS SYSTEM: Nonfocal. LABORATORY DATA: Sodium 136, other labs are reviewed. ASSESSMENT: 1. Change in mental status, recurrent possible acute transient ischemic attack versus hypertensive encephalopathy. 2. Fluctuating hypertension, labile. 3. Possible postoperative pneumonia. 4. Lung cancer, right. 5. Hypertension. 6. Hyperlipidemia. 7. Chronic obstructive pulmonary disease. 8. Chronic hypoxic respiratory failure. 9. Multiple complex medical issues. RECOMMENDATIONS: Recommended to continue current management and continue symptomatic treatment. Otherwise, at this time, I would also recommend plasma metanephrines to rule out the possibility of any pheochromocytoma, otherwise renal artery stenosis in the renal angiogram. MMODL / IJN: [id number] /
[2024-08-29] MEDS: MORPHINE SULFATE 4 MG/ML SYRINGE IV PRN (04:21)
[2024-08-29 06:31] LABS: Glucose,Whole Blood 162 mg/dL (70-110)
[2024-08-29] MEDS: TICAGRELOR 90 MG TAB PO SCH (11:20)
--- NOTE | 2024-08-29 11:31 | P.PN ---
Subjective HISTORY OF PRESENT ILLNESS: 84-year-old with prior history of lung cancer, with some concerns of relapse, history of CAD status post PCI, atrial fibrillation, sick sinus syndrome with PPM She presented to the hospital 08/23/2024 because of strokelike symptoms, word finding difficulty, generalized weakness. She has had prior history of TIA/CVA. Patient's daughter mentioned that patient has been having episodes in which she would get weak, could not talk, cannot walk, her eyes are open and she is not responding. She has been evaluated by neurology for possible seizures versus TIA. Cardiology was consulted because patient was noticed to be hypertensive on admission. And because of her prior cardiovascular history. She denies any symptoms of chest pain chest pressure. She does not have any signs of fluid overload. On this admission she is in atrial paced rhythm with no signs of arrhythmias. She does have prior history of paroxysmal atrial fibrillation. Admission Vitals: 167/94, last night BP 202 over 109 mmHg Admission Labs: Hb 13.2, BUN 18, creatinine 0.7, A1c 7, TSH 0.9, Admission EKG: Atrial paced V sensed rhythm with nonspecific ST changes Imaging: CT head did not show any acute intracranial process. CT angiogram neck showed left carotid 60% disease. CT chest showed emphysema with possible relapse of lung cancer with lung nodule. Home cardiac medications Eliquis 5 twice daily, Lipitor 80, Plavix 75, Lasix 20, irbesartan 75, metoprolol succinate 100 twice daily Prior cardiac testing: Echo from 05/2024 shows EF 55%, no RWMA, PPM wire in RA and RV, mild left atrial dilatation, no significant valvular dysfunction Progress note 08/26/2024 Patient is seen and examined at bedside this a.m. Patient denies any chest pain chest pressure Sinus rhythm on telemetry Blood pressure is fluctuating but better controlled since admission Still reporting to be weak. EEG did not show any evidence of ongoing seizure activity. 08/27/2024 Supine blood pressure is slightly elevated BP 162/70, amlodipine 10 mg were added but I feel that it would be too much for the patient considering her low weight, will reduce it to 5 mg. She also has concerns of orthostatic instability with hypotension on standing from sitting position. 08/28/2024 BP 126/49, heart rate 60, mild lightheadedness, no new cardiovascular events Hemodynamically stable otherwise. Neurology recommended to get evaluation for carotid intervention considering her recent history of TIA/CVA with 60% carotid disease on left side. 08/29/2024 Patient examined this morning at the bedside. Patient currently denies chest pain or pressure. She denies shortness of breath. She denies any difficulty with her vision or speech this morning. Pressures in the 160s. PHYSICAL EXAM: VITAL SIGNS: Reviewed. GENERAL: Well-developed in no acute distress. NECK: Supple. No JVD or thyromegaly LUNGS: Respirations even and unlabored. Lungs essentially clear to auscultation bilaterally. HEART: Regular rate and rhythm. S1 and S2 heard. EXTREMITIES: Normal range of motion. No clubbing or cyanosis. Peripheral pulses intact. No lower extremity edema ASSESSMENT: # Hypertensive urgency with possible TIA # Generalized weakness with word finding difficulty # Supine hypertension with orthostatic instability from tilt table test from 05/2024. # Stable CAD, prior history of PCI to LCx # Paroxysmal atrial fibrillation # Sick sinus syndrome status post PPM # Moderate left carotid stenosis 60% # History of lung cancer with possible relapse # Advance COPD # Essential hypertension, dyslipidemia, prior history of CVA/TIA # Ex-smoker PLAN: Continue Eliquis 2.5 mg twice a day Discontinue Plavix. Begin Brilinta 90 mg twice a day. Continue additional cardiac medications Dr. Lance to look at CT films regarding ICA stenosis Further recommendations pending patient course Nurse practitioner note has been reviewed by physician. Signing provider agrees with the documented findings, assessment, and plan of care documented by [employer]LLATE LAW CLERK as a scribe. Objective - Vital Signs Vital signs: Vital Signs Temp 98.0 F 08/29/24 06:50 Pulse 72 08/29/24 06:50 Resp 17 08/29/24 06:50 BP 167/79 08/29/24 06:50 Pulse Ox 97 08/29/24 06:50 FiO2 Intake & Output 08/28/24 08/29/24 08/29/24 18:59 06:59 18:59 Other: Voiding Method Toilet Toilet # Voids 4 # Bowel Movements 1 - Labs CBC & Chem 7: 08/28/24 02:46 08/28/24 06:55 Labs: Abnormal Lab Results - Last 24 Hours (Table) 08/28/24 08/28/24 08/28/24 Range/Units 12:01 16:54 22:05 POC Glucose (mg/dL) 214 H 292 H 220 H (70-110) mg/dL 08/29/24 Range/Units 06:29 POC Glucose (mg/dL) 162 H (70-110) mg/dL
[2024-08-29 12:20] LABS: Glucose,Whole Blood 272 mg/dL (70-110)
[2024-08-29] MEDS: IPRATROPIUM-ALBUTEROL 3 ML NEB INHALATION PRN (15:04)
[2024-08-29 16:19] VITALS: BMI 18.3
[2024-08-29 16:46] LABS: Glucose,Whole Blood 218 mg/dL (70-110)
[2024-08-29] MEDS: SYMBICORT 160-4.5 MCG INHALER INHALATION SCH (18:22)
[2024-08-29 20:37] LABS: Glucose,Whole Blood 319 mg/dL (70-110)
[2024-08-29 21:59] LABS: Glucose,Whole Blood 254 mg/dL (70-110)
[2024-08-30 06:12] LABS: Glucose,Whole Blood 273 mg/dL (70-110)
--- NOTE | 2024-08-30 06:23 | P.PN ---
Subjective Progress Note Date: 08/29/24 This is an 84-year-old female who follows with Dr. Estrada in the outpatient setting who presented to the emergency department with increased weakness.'s of confusion with uncontrolled blood pressure and generally not feeling well. Patient was recently admitted last week and discharged with TIA recommending outpatient follow-up with her neurologist. Patient does have significant past medical history of atrial fibrillation, COPD, CVA with TIA, heart failure, diabetes mellitus, previous history of DVT, sleep apnea and does not use a CPAP, chronic hypoxic respiratory failure maintained on 2 to 3 L outpatient, fibromyalgia, hyperlipidemia, hypertension. Patient has been hospitalized frequently for continued ongoing complex medical issues. Patient also with weakness would like to go to rehab for strength mobility. Case management is following and was working on ECF and will require 3 night stay hospitalization according to Medicare guidelines. Apparently patient was having an episode of unresponsiveness and altered mentation and code stroke was called and patient was brought to the ICU as a stepdown overflow as there are no beds available on 3 S. Patient undergoing extensive neurological workup and currently undergoing EEG this morning. Report is pending at this time. Patient also does have history of seizures and follows with neurology outpatient. 08/26/2024 Patient is seen in follow-up today continues in the ICU with multiple medical consultations following. Patient is awake, alert and oriented and at her baseline with no seizure-like activity noted. Aggressive medications being made per cardiology and blood pressures much more controlled today. Patient has been transferred out of the ICU to stepdown and continue telemetry monitoring. Plan is for [facility] for continued strength and mobility once stabilized and discharged. Cardiology to consider possible HUE. 08/29/2024 Patient is seen in follow-up with multiple consultations following reports to feeling slightly improved although reports she feels not quite ready for discharge yet. Cardiology and neurology following undergoing further workup making adjustments to medications. Patient also with likely hypertensive encephalopathy and mentation is improved at this time. Patient is afebrile with no reports of chest pain or palpitations. Patient denies worsening shortness of breath and chronically wears O2 outpatient. Plan is for [facility] on discharge. Review of systems: Constitutional: reports of fatigue, no fever, or chills Cardiovascular: No reports of chest pain reports of occasional palpitations Respiratory: No reports of shortness of breath or cough GI: No reports of nausea, no reports of vomiting, no reports of diarrhea : No reports of dysuria or retention Neurovascular: reports of generalized weakness, reports feeling improved and more awake and alert today All medications have been reviewed Active Medications Acetaminophen (Acetaminophen Tab 325 Mg Tab) 650 mg PO Q6HR PRN PRN Reason: Fever and/ or Pain Last Admin: 08/25/24 16:59 Dose: 650 mg Albuterol/Ipratropium (Ipratropium-Albuterol 3 Ml Neb) 3 ml INHALATION RT-QID PRN PRN Reason: Shortness Of Breath Or Wheezing Last Admin: 08/29/24 15:04 Dose: 3 ml Alprazolam (Alprazolam 0.25 Mg Tab) 0.25 mg PO TID PRN PRN Reason: Anxiety Last Admin: 08/30/24 00:18 Dose: 0.25 mg Amlodipine Besylate (Amlodipine 5 Mg Tab) 5 mg PO DAILY [facility] Last Admin: 08/29/24 09:33 Dose: 5 mg Apixaban (Apixaban 2.5 Mg Tablet) 2.5 mg PO BID [facility]; Protocol Last Admin: 08/29/24 22:00 Dose: 2.5 mg Artificial Tears (Artificial Tears-Hypromellose Drops 15 Ml Btl) 2 drops BOTH EYES QID PRN PRN Reason: Dry Eye(s) Atorvastatin Calcium (Atorvastatin 40 Mg Tab) 40 mg PO HS [facility] Last Admin: 08/29/24 22:00 Dose: 40 mg Budesonide/Formoterol Fumarate (Symbicort 160-4.5 Mcg Inhaler) 2 puff INHALATION RT-BID [facility] Last Admin: 08/29/24 18:22 Dose: 2 puff Dextrose/Water (Dextrose 50% Syringe 50 Ml) 25 ml IVP PER PROTOCOL PRN; Protocol PRN Reason: Hypoglycemia Dextrose/Water (Dextrose 50% Syringe 50 Ml) 50 ml IVP PER PROTOCOL PRN; Protocol PRN Reason: Hypoglycemia Fluconazole (Fluconazole 100 Mg Tab) 100 mg PO DAILY [facility] Last Admin: 08/29/24 09:33 Dose: 100 mg Hydromorphone HCl (Hydromorphone 0.5 Mg/0.5 Ml Syringe) 0.5 mg IVP Q2HR PRN PRN Reason: Pain Last Admin: 08/25/24 04:44 Dose: 0.5 mg Ceftriaxone Sodium 1 gm/ (Sodium Chloride) 50 mls @ 100 mls/hr IVPB Q24HR [facility]; Protocol Last Admin: 08/29/24 09:32 Dose: 100 mls/hr Insulin Human Lispro (Insulin Lispro (Humalog) 100 Unit/Ml 10 Ml Vl) 0 unit SQ ACHS [facility]; Protocol Last Admin: 08/29/24 22:00 Dose: 3 unit Lacosamide (Lacosamide 50 Mg Tablet) 100 mg PO BID [facility] Last Admin: 08/29/24 22:00 Dose: 100 mg Losartan Potassium (Losartan 25 Mg Tab) 25 mg PO DAILY [facility] Last Admin: 08/29/24 09:33 Dose: 25 mg Melatonin (Melatonin 5 Mg Tablet) 5 mg PO HS PRN PRN Reason: Insomnia Last Admin: 08/28/24 22:08 Dose: 5 mg Metoprolol Succinate (Metoprolol Succinate (Er) 50 Mg Tab.Er.24h) 50 mg PO BID [facility] Last Admin: 08/29/24 22:00 Dose: 50 mg Mirtazapine (Mirtazapine 15 Mg Tab) 15 mg PO HS [facility] Last Admin: 08/29/24 22:00 Dose: 15 mg Miscellaneous Information (Potassium Replacement Protocol 1 Each Misc) 1 each MISCELLANE DAILY PRN; Protocol PRN Reason: Per Protocol Miscellaneous Information (Magnesium Replacement Protocol 1 Each Misc) 1 each MISCELLANE DAILY PRN; Protocol PRN Reason: Per Protocol Morphine Sulfate (Morphine Sulfate 4 Mg/Ml Syringe) 4 mg IV Q4HR PRN PRN Reason: Severe Pain (Scale 7 to 10) Last Admin: 08/29/24 04:21 Dose: 4 mg Naloxone HCl (Naloxone 0.4 Mg/Ml 1 Ml Vial) 0.2 mg IV Q2M PRN PRN Reason: Opioid Reversal Ondansetron HCl (Ondansetron 4 Mg/2 Ml Vial) 4 mg IVP Q8HR PRN PRN Reason: Nausea And Vomiting Last Admin: 08/29/24 18:06 Dose: 4 mg Pantoprazole Sodium (Pantoprazole 40 Mg Tablet) 40 mg PO AC-BRKFST [facility] Last Admin: 08/29/24 06:59 Dose: 40 mg Prednisone (Prednisone 5 Mg Tab) 5 mg PO DAILY [facility] Last Admin: 08/29/24 09:33 Dose: 5 mg Senna (Sennosides 8.6 Mg Tab) 8.6 mg PO BID [facility] Last Admin: 08/29/24 22:00 Dose: 8.6 mg Ticagrelor (Ticagrelor 90 Mg Tab) 90 mg PO BID [facility] Last Admin: 08/29/24 23:07 Dose: 90 mg Tiotropium [place] (Tiotropium 2.5 Mcg Inhaler) 2 puff INHALATION RT-DAILY [facility] PHYSICAL EXAMINATION: GENERAL: The patient is alert and oriented x3, Well developed, ill-appearing, elderly appearing, thin built HEENT: Pupils are round and equally reacting to light. EOMI. no scleral icterus. No conjunctival pallor. Normocephalic, atraumatic. No pharyngeal erythema. No thyromegaly. CARDIOVASCULAR: S1 and S2 muffled, irregular PULMONARY: diminished breath sounds bilaterally with no wheezing or rhonchi noted. ABDOMEN: soft. Nontender on exam. Thin. non-distended, normoactive bowel sounds. No palpable organomegaly. MUSCULOSKELETAL: No joint swelling or deformity. EXTREMITIES: No cyanosis, clubbing, or pedal edema. NEUROLOGICAL: Gross neurological examination did not reveal any focal deficits. Diffuse weakness SKIN: No rashes. Assessment: Generalized weakness and fatigue, possibly secondary to hypertensive encephalopathy as well as acute TIA History of lung cancer on the right, left upper lobe pulmonary nodule on CTA, suspicious for neoplasm and progression of disease History of TIA recently Hypertension history, uncontrolled Hyperlipidemia Recurrent episodes of lethargy, difficulty walking and talking with period of unresponsiveness, code stroke was activated, likely TIA, no seizure-like activity noted on EEG Left ICA stenosis 60% on CTA, vascular has evaluated and no plans of intervention at this time. Patient follows with Dr. Lance outpatient for this a nd will be reviewing CT images Chronic obstructive pulmonary disease, not in exacerbation Chronic hypoxic respiratory failure secondary to above, maintained on 2 L History of permanent pacemaker History of sleep apnea, does not use a CPAP Congestive heart failure history, unknown EF History of atrial fibrillation, paroxysmal Diabetes mellitus, type II History of DVT History of fibromyalgia History of coronary artery disease with previous stenting of the circumflex Former smoker GI prophylaxis DVT prophylaxis Full code Plan: Recommend to continue with current medications and management with multiple consultations following. Neurology following and underwent workup for TIA, likely and seizure ruled out. EEG abnormal due to encephalopathy, mentation significantly improved today. Concerns for hypertensive encephalopathy Patient with noted ICA stenosis was seen and evaluated by vascular surgery with no plans of intervention at this time and stable and follows with Dr. Lance outpatient and per cardiology, Dr. Lance to review CT images Continue telemetry monitoring Patient evaluated by PT/OT therapy recommending rehab and patient is agreeable as patient has had extensive weakness. Will continue monitoring closely and adjust medications accordingly. Will discuss with multiple consultations regarding discharge planning to ECF. Patient will require 3 night hospitalization and insurance authorization for ECF. [facility] has accepted the patient pending authorization and 3 night s arnulfo. Currently awaiting clearance from consultations and will discuss further regarding discharge planning possibly in the next 24 to 48 hours. Due to multiple complex medical issues, overall prognosis is guarded. The impression and plan of care has been dictated by Adrianna Arguelles, nurse practitioner as directed. Dr. Ramone MD I have performed a history and examination and MDM of this patient, discussed the same with the dictator, and agree with the dictator's assessment and plan as written ,documented as a scribe. Based on total visit time, I have performed more than 50% of the visit. Any additional findings or plans will be noted. Objective - Vital Signs Vital signs: Vital Signs Temp 98.0 F 08/29/24 06:50 Pulse 80 08/29/24 15:16 Resp 17 08/29/24 06:50 BP 167/79 08/29/24 06:50 Pulse Ox 97 08/29/24 06:50 FiO2 Intake & Output 08/28/24 08/29/24 08/29/24 18:59 06:59 18:59 Output Total 600 Balance -600 Output: Urine 600 Other: Voiding Method Toilet Toilet # Voids 4 # Bowel Movements 1 - Labs CBC & Chem 7: 08/28/24 02:46 08/28/24 06:55 Labs: Abnormal Lab Results - Last 24 Hours (Table) 08/28/24 08/28/24 08/29/24 Range/Units 16:54 22:05 06:29 POC Glucose (mg/dL) 292 H 220 H 162 H (70-110) mg/dL 08/29/24 Range/Units 12:19 POC Glucose (mg/dL) 272 H (70-110) mg/dL
[2024-08-30] MEDS: TIOTROPIUM 2.5 MCG INHALER INHALATION SCH (08:34)
[2024-08-30 08:49] LABS: BUN/Creat Ratio 25.62 Ratio (12.00-20.00); Blood Urea Nitrogen 20.5 mg/dL (9.0-27.0); Calcium 10.2 mg/dL (8.7-10.3); Carbon Dioxide 32.2 mmol/L (21.6-31.8); Chloride 98 mmol/L (96-109); Glucose 270 mg/dL (70-110); Potassium 4.2 mmol/L (3.5-5.5); Sodium 139 mmol/L (135-145)
[2024-08-30 11:33] LABS: Glucose,Whole Blood 351 mg/dL (70-110)
--- NOTE | 2024-08-30 14:22 | P.PN ---
Subjective HISTORY OF PRESENT ILLNESS: 84-year-old with prior history of lung cancer, with some concerns of relapse, history of CAD status post PCI, atrial fibrillation, sick sinus syndrome with PPM She presented to the hospital 08/23/2024 because of strokelike symptoms, word finding difficulty, generalized weakness. She has had prior history of TIA/CVA. Patient's daughter mentioned that patient has been having episodes in which she would get weak, could not talk, cannot walk, her eyes are open and she is not responding. She has been evaluated by neurology for possible seizures versus TIA. Cardiology was consulted because patient was noticed to be hypertensive on admission. And because of her prior cardiovascular history. She denies any symptoms of chest pain chest pressure. She does not have any signs of fluid overload. On this admission she is in atrial paced rhythm with no signs of arrhythmias. She does have prior history of paroxysmal atrial fibrillation. Admission Vitals: 167/94, last night BP 202 over 109 mmHg Admission Labs: Hb 13.2, BUN 18, creatinine 0.7, A1c 7, TSH 0.9, Admission EKG: Atrial paced V sensed rhythm with nonspecific ST changes Imaging: CT head did not show any acute intracranial process. CT angiogram neck showed left carotid 60% disease. CT chest showed emphysema with possible relapse of lung cancer with lung nodule. Home cardiac medications Eliquis 5 twice daily, Lipitor 80, Plavix 75, Lasix 20, irbesartan 75, metoprolol succinate 100 twice daily Prior cardiac testing: Echo from 05/2024 shows EF 55%, no RWMA, PPM wire in RA and RV, mild left atrial dilatation, no significant valvular dysfunction Progress note 08/26/2024 Patient is seen and examined at bedside this a.m. Patient denies any chest pain chest pressure Sinus rhythm on telemetry Blood pressure is fluctuating but better controlled since admission Still reporting to be weak. EEG did not show any evidence of ongoing seizure activity. 08/27/2024 Supine blood pressure is slightly elevated BP 162/70, amlodipine 10 mg were added but I feel that it would be too much for the patient considering her low weight, will reduce it to 5 mg. She also has concerns of orthostatic instability with hypotension on standing from sitting position. 08/28/2024 BP 126/49, heart rate 60, mild lightheadedness, no new cardiovascular events Hemodynamically stable otherwise. Neurology recommended to get evaluation for carotid intervention considering her recent history of TIA/CVA with 60% carotid disease on left side. 08/29/2024 Patient examined this morning at the bedside. Patient currently denies chest pain or pressure. She denies shortness of breath. She denies any difficulty with her vision or speech this morning. Pressures in the 160s. 08/30/2024 Patient examined this afternoon. Patient is sitting up in the chair. Patient currently denies any chest pain or pressure. She denies any shortness of breath. She states she is feeling better today. Blood pressures in the 160s. PHYSICAL EXAM: VITAL SIGNS: Reviewed. GENERAL: Well-developed in no acute distress. NECK: Supple. No JVD or thyromegaly LUNGS: Respirations even and unlabored. Lungs essentially clear to auscultation bilaterally. HEART: Regular rate and rhythm. S1 and S2 heard. EXTREMITIES: Normal range of motion. No clubbing or cyanosis. Peripheral pulses intact. No lower extremity edema ASSESSMENT: # Hypertensive urgency with possible TIA # Generalized weakness with word finding difficulty # Supine hypertension with orthostatic instability from tilt table test from 05/2024. # Stable CAD, prior history of PCI to LCx # Paroxysmal atrial fibrillation # Sick sinus syndrome status post PPM # Moderate left carotid stenosis 60% # History of lung cancer with possible relapse # Advance COPD # Essential hypertension, dyslipidemia, prior history of CVA/TIA # Ex-smoker PLAN: Continue Eliquis 2.5 mg twice a day and Brilinta 90 mg twice a day. Continue additional cardiac medications Increase Norvasc to 5mg BID for optimal blood pressure control Dr. Lance to look at CT films regarding ICA stenosis Further recommendations pending patient course Nurse practitioner note has been reviewed by physician. Signing provider agrees with the documented findings, assessment, and plan of care documented by SPLITTING MACHINE OPERATOR as a scribe. Objective - Vital Signs Vital signs: Vital Signs Temp 98 F 08/30/24 07:00 Pulse 64 08/30/24 09:00 Resp 16 08/30/24 08:46 BP 166/68 08/30/24 07:00 Pulse Ox 100 08/30/24 08:34 FiO2 Intake & Output 08/29/24 08/30/24 08/30/24 18:59 06:59 18:59 Output Total 600 Balance -600 Weight 48.5 kg Output: Urine 600 Other: Voiding Method Toilet # Voids 5 3 - Labs CBC & Chem 7: 08/28/24 02:46 08/30/24 02:45 Labs: Abnormal Lab Results - Last 24 Hours (Table) 08/29/24 08/29/24 08/29/24 Range/Units 16:45 20:36 21:58 Carbon Dioxide (21.6-31.8) mmol/L BUN/Creatinine Ratio (12.00-20.00) Ratio Glucose (70-110) mg/dL POC Glucose (mg/dL) 218 H 319 H 254 H (70-110) mg/dL 08/30/24 08/30/24 08/30/24 Range/Units 02:45 06:11 11:31 Carbon Dioxide 32.2 H (21.6-31.8) mmol/L BUN/Creatinine Ratio 25.62 H (12.00-20.00) Ratio Glucose 270 H (70-110) mg/dL POC Glucose (mg/dL) 273 H 351 H (70-110) mg/dL Microbiology - Last 24 Hours (Table) 08/24/24 14:15 Blood Culture - Final Blood
[2024-08-30 16:31] LABS: Glucose,Whole Blood 317 mg/dL (70-110)
[2024-08-30 20:42] LABS: Glucose,Whole Blood 184 mg/dL (70-110)
[2024-08-30] MEDS: amLODIPine 5 MG TAB PO SCH (22:56)
[2024-08-30] MEDS: BENZONATATE 100 MG CAP PO PRN (22:57)
[2024-08-31 06:04] LABS: Glucose,Whole Blood 194 mg/dL (70-110)
--- NOTE | 2024-08-31 09:08 | P.PN ---
Subjective HISTORY OF PRESENT ILLNESS: 84-year-old with prior history of lung cancer, with some concerns of relapse, history of CAD status post PCI, atrial fibrillation, sick sinus syndrome with PPM She presented to the hospital 08/23/2024 because of strokelike symptoms, word finding difficulty, generalized weakness. She has had prior history of TIA/CVA. Patient's daughter mentioned that patient has been having episodes in which she would get weak, could not talk, cannot walk, her eyes are open and she is not responding. She has been evaluated by neurology for possible seizures versus TIA. Cardiology was consulted because patient was noticed to be hypertensive on admission. And because of her prior cardiovascular history. She denies any symptoms of chest pain chest pressure. She does not have any signs of fluid overload. On this admission she is in atrial paced rhythm with no signs of arrhythmias. She does have prior history of paroxysmal atrial fibrillation. Admission Vitals: 167/94, last night BP 202 over 109 mmHg Admission Labs: Hb 13.2, BUN 18, creatinine 0.7, A1c 7, TSH 0.9, Admission EKG: Atrial paced V sensed rhythm with nonspecific ST changes Imaging: CT head did not show any acute intracranial process. CT angiogram neck showed left carotid 60% disease. CT chest showed emphysema with possible relapse of lung cancer with lung nodule. Home cardiac medications Eliquis 5 twice daily, Lipitor 80, Plavix 75, Lasix 20, irbesartan 75, metoprolol succinate 100 twice daily Prior cardiac testing: Echo from 05/2024 shows EF 55%, no RWMA, PPM wire in RA and RV, mild left atrial dilatation, no significant valvular dysfunction Progress note 08/26/2024 Patient is seen and examined at bedside this a.m. Patient denies any chest pain chest pressure Sinus rhythm on telemetry Blood pressure is fluctuating but better controlled since admission Still reporting to be weak. EEG did not show any evidence of ongoing seizure activity. 08/27/2024 Supine blood pressure is slightly elevated BP 162/70, amlodipine 10 mg were added but I feel that it would be too much for the patient considering her low weight, will reduce it to 5 mg. She also has concerns of orthostatic instability with hypotension on standing from sitting position. 08/28/2024 BP 126/49, heart rate 60, mild lightheadedness, no new cardiovascular events Hemodynamically stable otherwise. Neurology recommended to get evaluation for carotid intervention considering her recent history of TIA/CVA with 60% carotid disease on left side. 08/29/2024 Patient examined this morning at the bedside. Patient currently denies chest pain or pressure. She denies shortness of breath. She denies any difficulty with her vision or speech this morning. Pressures in the 160s. 08/30/2024 Patient examined this afternoon. Patient is sitting up in the chair. Patient currently denies any chest pain or pressure. She denies any shortness of breath. She states she is feeling better today. Blood pressures in the 160s. 08/31/2024 Patient examined this morning at the bedside. Patient currently denies chest pain or pressure. She denies shortness of breath. Denies dizziness or lightheadedness. Blood pressure 160/68. PHYSICAL EXAM: VITAL SIGNS: Reviewed. GENERAL: Well-developed in no acute distress. NECK: Supple. No JVD or thyromegaly LUNGS: Respirations even and unlabored. Lungs essentially clear to auscultation bilaterally. HEART: Regular rate and rhythm. S1 and S2 heard. EXTREMITIES: Normal range of motion. No clubbing or cyanosis. Peripheral pulses intact. No lower extremity edema ASSESSMENT: # Hypertensive urgency with possible TIA # Generalized weakness with word finding difficulty # Supine hypertension with orthostatic instability from tilt table test from 05/2024. # Stable CAD, prior history of PCI to LCx # Paroxysmal atrial fibrillation # Sick sinus syndrome status post PPM # Moderate left carotid stenosis 60% # History of lung cancer with possible relapse # Advance COPD # Essential hypertension, dyslipidemia, prior history of CVA/TIA # Ex-smoker PLAN: Continue Eliquis 2.5 mg twice a day and Brilinta 90 mg twice a day. Continue additional cardiac medications Dr. Lance to look at CT films regarding ICA stenosis today and will speak with the patient and the daughter with recommendations and plan Further recommendations pending patient course Nurse practitioner note has been reviewed by physician. Signing provider agrees with the documented findings, assessment, and plan of care documented by SWEAT BAND SEWER as a scribe. Objective - Vital Signs Vital signs: Vital Signs Temp 98.0 F 08/31/24 07:02 Pulse 74 08/31/24 07:56 Resp 17 08/31/24 07:02 BP 160/68 08/31/24 07:02 Pulse Ox 99 08/31/24 07:47 FiO2 Intake & Output 08/30/24 08/31/24 08/31/24 18:59 06:59 18:59 Other: # Voids 2 1 # Bowel Movements 1 - Labs CBC & Chem 7: 08/28/24 02:46 08/30/24 02:45 Labs: Abnormal Lab Results - Last 24 Hours (Table) 08/30/24 08/30/24 08/30/24 Range/Units 11:31 16:29 20:40 POC Glucose (mg/dL) 351 H 317 H 184 H (70-110) mg/dL 08/31/24 Range/Units 06:02 POC Glucose (mg/dL) 194 H (70-110) mg/dL
--- NOTE | 2024-08-31 09:17 | P.PN ---
Subjective Progress Note Date: 08/30/24 This is an 84-year-old female who follows with Dr. Estrada in the outpatient setting who presented to the emergency department with increased weakness.'s of confusion with uncontrolled blood pressure and generally not feeling well. Patient was recently admitted last week and discharged with TIA recommending outpatient follow-up with her neurologist. Patient does have significant past medical history of atrial fibrillation, COPD, CVA with TIA, heart failure, diabetes mellitus, previous history of DVT, sleep apnea and does not use a CPAP, chronic hypoxic respiratory failure maintained on 2 to 3 L outpatient, fibromyalgia, hyperlipidemia, hypertension. Patient has been hospitalized frequently for continued ongoing complex medical issues. Patient also with weakness would like to go to rehab for strength mobility. Case management is following and was working on EC and will require 3 night stay hospitalization according to Medicare guidelines. Apparently patient was having an episode of unresponsiveness and altered mentation and code stroke was called and patient was brought to the ICU as a stepdown overflow as there are no beds available on 3 S. Patient undergoing extensive neurological workup and currently undergoing EEG this morning. Report is pending at this time. Patient also does have history of seizures and follows with neurology outpatient. 08/26/2024 Patient is seen in follow-up today continues in the ICU with multiple medical consultations following. Patient is awake, alert and oriented and at her baseline with no seizure-like activity noted. Aggressive medications being made per cardiology and blood pressures much more controlled today. Patient has been transferred out of the ICU to stepdown and continue telemetry monitoring. Plan [facility] continued strength and mobility once stabilized and discharged. Cardiology to consider possible HUE. 08/29/2024 Patient is seen in follow-up with multiple consultations following reports to feeling slightly improved although reports she feels not quite ready for discharge yet. Cardiology and neurology following undergoing further workup making adjustments to medications. Patient also with likely hypertensive encephalopathy and mentation is improved at this time. Patient is afebrile with no reports of chest pain or palpitations. Patient denies worsening shortness of breath and chronically wears O2 outpatient. Plan is for [facility] on discharge. 08/30/2024 Patient is seen in follow-up today reports she feels fatigued and not quite ready for discharge as she feels extremely weak. The point of going to ECF is for continued PT/OT therapy and case management is following. Cardiology recommends monitoring 1 more day and possible discharge planning in the next 24 hours. Patient has been accepted at [facility] and will be going there on discharge. Patient is afebrile with no reports of chest pain or palpitations. Blood pressures being monitored closely and better controlled currently. Review of systems: Constitutional: reports of fatigue, no fever, or chills Cardiovascular: No reports of chest pain reports of occasional palpitations Respiratory: No reports of shortness of breath or cough GI: No reports of nausea, no reports of vomiting, no reports of diarrhea : No reports of dysuria or retention Neurovascular: reports of generalized weakness, reports feeling fatigued today and not ready for discharge All medications have been reviewed PHYSICAL EXAMINATION: GENERAL: The patient is alert and oriented x3, Well developed, ill-appearing, elderly appearing, thin built HEENT: Pupils are round and equally reacting to light. EOMI. no scleral icterus. No conjunctival pallor. Normocephalic, atraumatic. No pharyngeal erythema. No thyromegaly. CARDIOVASCULAR: S1 and S2 muffled, irregular PULMONARY: diminished breath sounds bilaterally with no wheezing or rhonchi noted. ABDOMEN: soft. Nontender on exam. Thin. non-distended, normoactive bowel sounds. No palpable organomegaly. MUSCULOSKELETAL: No joint swelling or deformity. EXTREMITIES: No cyanosis, clubbing, or pedal edema. NEUROLOGICAL: Gross neurological examination did not reveal any focal deficits. Diffuse weakness SKIN: No rashes. Assessment: Generalized weakness and fatigue, possibly secondary to hypertensive encephalopathy as well as acute TIA History of lung cancer on the right, left upper lobe pulmonary nodule on CTA, suspicious for neoplasm and progression of disease History of TIA recently Hypertension history, uncontrolled Hyperlipidemia Recurrent episodes of lethargy, difficulty walking and talking with period of unresponsiveness, code stroke was activated, likely TIA, no seizure-like activity noted on EEG Left ICA stenosis 60% on CTA, vascular has evaluated and no plans of intervention at this time. Patient follows with Dr. Lance outpatient for this and will be reviewing CT images Chronic obstructive pulmonary disease, not in exacerbation Chronic hypoxic respiratory failure secondary to above, maintained on 2 L History of permanent pacemaker History of sleep apnea, does not use a CPAP Congestive heart failure history, unknown EF History of atrial fibrillation, paroxysmal Diabetes mellitus, type II History of DVT History of fibromyalgia History of coronary artery disease with previous stenting of the circumflex Former smoker GI prophylaxis DVT prophylaxis Full code Plan: Recommend to continue with current medications and management with multiple c onsultations following. Neurology following and underwent workup for TIA, likely and seizure ruled out. EEG abnormal due to encephalopathy, mentation significantly improved today. Concerns for hypertensive encephalopathy Patient with noted ICA stenosis was seen and evaluated by vascular surgery with no plans of intervention at this time and stable and follows with Dr. Lance outpatient and per cardiology, Dr. Lance to review CT images. Cardiology recommend monitoring 1 more day and discussing possible discharge within the next 24 hours. Continue telemetry monitoring Patient evaluated by PT/OT therapy recommending rehab and patient is agreeable as patient has had extensive weakness. Will continue monitoring closely and adjust medications accordingly. Will discuss with multiple consultations regarding discharge planning to ECF. Patient will require 3 night hospitalization and insurance authorization for ECF. [facility] has accepted the patient Currently awaiting clearance from consultations and will discuss further regarding discharge planning possibly in the next 24 to 48 hours. Due to multiple complex medical issues, overall prognosis is guarded. The impression and plan of care has been dictated by Adrianna Arguelles, nurse practitioner as directed. Dr. Ramone MD I have performed a history and examination and MDM of this patient, discussed the same with the dictator, and agree with the dictator's assessment and plan as written ,documented as a scribe. Based on total visit time, I have performed more than 50% of the visit. Any additional findings or plans will be noted. Objective - Vital Signs Vital signs: Vital Signs Temp 98.0 F 08/31/24 07:02 Pulse 74 08/31/24 07:56 Resp 17 08/31/24 07:02 BP 160/68 08/31/24 07:02 Pulse Ox 99 08/31/24 07:47 FiO2 Intake & Output 08/30/24 08/31/24 08/31/24 18:59 06:59 18:59 Other: # Voids 2 1 # Bowel Movements 1 - Labs CBC & Chem 7: 08/28/24 02:46 08/30/24 02:45 Labs: Abnormal Lab Results - Last 24 Hours (Table) 08/30/24 08/30/24 08/30/24 Range/Units 11:31 16:29 20:40 POC Glucose (mg/dL) 351 H 317 H 184 H (70-110) mg/dL 08/31/24 Range/Units 06:02 POC Glucose (mg/dL) 194 H (70-110) mg/dL
[2024-08-31 11:23] LABS: Glucose,Whole Blood 299 mg/dL (70-110)
--- NOTE | 2024-08-31 14:42 | P.DS ---
Providers Date of admission: 08/23/24 17:50 Expected date of discharge: 08/31/24 Attending physician: Samara Pack Consults: 08/23/24 17:48 Consult Physician Routine Consulting Provider: Drew Pino Consult Reason/Comments: known Do you want consulting provider notified?: Yes 08/24/24 13:43 Consult Physician Routine Consulting Provider: Mark Sarmiento Consult Reason/Comments: malignancy Do you want consulting provider notified?: Yes 08/25/24 04:16 Consult Physician Routine Consulting Provider: Lazaro Lance Consult Reason/Comments: hypertension Do you want consulting provider notified?: Yes, Notify in am 08/25/24 05:54 Consult Physician Routine Consulting Provider: Philippe Dominguez Consult Reason/Comments: icu management Do you want consulting provider notified?: Already Contacted Primary care physician: Nohemi Estrada Hospital Course: Final diagnosis Generalized weakness and fatigue, possibly secondary to hypertensive encephalopathy as well as acute TIA History of lung cancer on the right, left upper lobe pulmonary nodule on CTA, suspicious for neoplasm and progression of disease History of TIA recently Hypertension history, uncontrolled Hyperlipidemia Recurrent episodes of lethargy, difficulty walking and talking with period of unresponsiveness, code stroke was activated, likely TIA, no seizure-like activity noted on EEG Left ICA stenosis 60% on CTA, vascular has evaluated and no plans of intervention at this time. Patient follows with Dr. Lance outpatient for this and will be reviewing CT images Chronic obstructive pulmonary disease, not in exacerbation Chronic hypoxic respiratory failure secondary to above, maintained on 2 L History of permanent pacemaker History of sleep apnea, does not use a CPAP Congestive heart failure history, unknown EF History of atrial fibrillation, paroxysmal Diabetes mellitus, type II History of DVT History of fibromyalgia History of coronary artery disease with previous stenting of the circumflex Former smoker GI prophylaxis DVT prophylaxis Full code Discharge disposition Patient is being discharged in a stable condition with guarded prognosis to [facility]. Patient will follow-up with Dr. Estrada in the outpatient setting upon discharge. Patient is to continue with current medications and close outpatient follow-up with neurology as well as cardiology as scheduled. Total time taken is greater than 35 minutes. Hospital course This is a 84-year-old female who was recently admitted with generalized weakness and fatigue not feeling well having uncontrolled hypertension being closely monitored with multiple consultations. Patient also had an episode of unresponsiveness and altered mentation with concerns of hypertensive encephalopathy although underwent further extensive neurological workup. Patient is to follow-up with cardiology Dr. Lance who she sees outpatient for the left ICA stenosis and discuss any need for surgical intervention as well as neurology for close monitoring. Patient has been cleared by consultations and evaluated by physical therapy and is extensively weak with prolonged hospitalization recommending rehab. Patient is agreeable and has been accepted at [facility]. Please refer to other consultation notes for further HPI. Currently no reports of chest pain, shortness of breath, or palpitations. Patient is afebrile. No reports of nausea or vomiting and patient is tolerating diet. Patient will be going to [facility] today. Guarded prognosis Physical exam: Gen: This is a 84-year-old female who is awake, alert and oriented x 2-3, baseline, well-developed, elderly appearing, thin built HEENT: Head is atraumatic, normocephalic. Pupils equal, round. Sclerae is anicteric. NECK: Supple. No JVD. No lymphadenopathy. No thyromegaly. LUNGS: Diminished breath sounds bilaterally otherwise clear to auscultation. No wheezes or rhonchi. No intercostal retractions. HEART: S1, S2 are muffled ABDOMEN: Soft. Thin. Bowel sounds are present. No masses. No tenderness. EXTREMITIES: No pedal edema. No calf tenderness. NEUROLOGICAL: Patient is awake, alert and oriented x3. Cranial nerves 2 through 12 are grossly intact. Diffusely weak Please refer to medication reconciliation sheet for a list of medications. The impression and plan of care has been dictated by Adrianna Arguelles, Nurse Practitioner as directed. Dr. Ramone MD I have performed a history and examination and MDM of this patient, discussed the same with the dictator, and agree with the dictator's assessment and plan as written ,documented as a scribe. Based on total visit time, I have performed more than 50% of the visit. Patient Condition at Discharge: Fair Plan - Discharge Summary Discharge Rx Participant: No New Discharge Prescriptions: New Losartan [Cozaar] 25 mg PO DAILY tab Ipratropium-Albuterol Nebulize [Duoneb 0.5 mg-3 mg/3 ml Soln] 3 ml INHALATION RT-QID PRN each PRN Reason: Shortness Of Breath Or Wheezing Apixaban [Eliquis] 2.5 mg PO BID tab Melatonin 5 mg PO HS PRN tab PRN Reason: Insomnia amLODIPine [Norvasc] 5 mg PO BID tab Sennosides [Senokot] 8.6 mg PO BID tab Benzonatate [Tessalon Perles] 100 mg PO TID PRN cap PRN Reason: Cough Acetaminophen Tab [Tylenol] 650 mg PO Q6HR PRN tab PRN Reason: Fever And/ Or Pain Artificial Tears-Hypromellose [Artificial Tear Drops] 2 drops BOTH EYES QID PRN ml PRN Reason: Dry Eye(S) Ticagrelor [Brilinta] 90 mg PO BID tab Tiotropium 2.5 Mcg/Puff [Spiriva Respimat 2.5 Mcg] 2 puff INHALATION RT-DAILY each Budesonide-Formot 160-4.5 Mcg [Symbicort 160-4.5 Mcg Inhaler] 2 puff INHALATION RT-BID each Metoprolol Succinate (ER) [Toprol XL] 50 mg PO BID tab Lacosamide [Vimpat] 100 mg PO BID #14 tab Continue Fluticasone/Umeclidin/Vilanter [Trelegy Ellipta 100-62.5-25] 1 puff INHALATION RT-DAILY Mirtazapine [Remeron] 15 mg PO HS Atorvastatin [Lipitor] 80 mg PO HS predniSONE 5 mg PO DAILY Fluconazole [Diflucan] 100 mg PO DAILY ALPRAZolam [Xanax] 0.25 mg PO TID PRN #6 tab PRN Reason: Anxiety Pantoprazole Sodium [Protonix] 20 mg PO DAILY metFORMIN HCL [Glucophage] 500 mg PO BID 30 Days #60 tab Cefuroxime [Ceftin] 250 mg PO BID 5 Days #10 each Discontinued Apixaban [Eliquis] 5 mg PO BID Irbesartan [Avapro] 75 mg PO DAILY Furosemide [Lasix] 20 mg PO DAILY traMADol HCL 50 mg PO Q6H PRN 3 Days #12 tab PRN Reason: Pain Metoprolol Succinate (ER) [Toprol XL] 100 mg PO BID Clopidogrel [Plavix] 75 mg PO DAILY 30 Days #30 tab Lacosamide [Vimpat] 50 mg PO BID 30 Days #60 tab Discharge Medication List Fluticasone/Umeclidin/Vilanter [Trelegy Ellipta 100-62.5-25] 1 puff INHALATION RT-DAILY 04/19/20 [History] Pantoprazole Sodium [Protonix] 20 mg PO DAILY 12/01/22 [History] Mirtazapine [Remeron] 15 mg PO HS 04/07/24 [History] Atorvastatin [Lipitor] 80 mg PO HS 06/21/24 [History] predniSONE 5 mg PO DAILY 06/21/24 [History] Fluconazole [Diflucan] 100 mg PO DAILY 08/18/24 [History] metFORMIN HCL [Glucophage] 500 mg PO BID 30 Days #60 tab 08/20/24 [Rx] ALPRAZolam [Xanax] 0.25 mg PO TID PRN #6 tab 08/31/24 [Rx] Acetaminophen Tab [Tylenol] 650 mg PO Q6HR PRN tab 08/31/24 [Rx] Apixaban [Eliquis] 2.5 mg PO BID tab 08/31/24 [Rx] Artificial Tears-Hypromellose [Artificial Tear Drops] 2 drops BOTH EYES QID PRN ml 08/31/24 [Rx] Benzonatate [Tessalon Perles] 100 mg PO TID PRN cap 08/31/24 [Rx] Budesonide-Formot 160-4.5 Mcg [Symbicort 160-4.5 Mcg Inhaler] 2 puff INHALATION RT-BID each 08/31/24 [Rx] Cefuroxime [Ceftin] 250 mg PO BID 5 Days #10 each 08/31/24 [Rx] Ipratropium-Albuterol Nebulize [Duoneb 0.5 mg-3 mg/3 ml Soln] 3 ml INHALATION RT-QID PRN each 08/31/24 [Rx] Lacosamide [Vimpat] 100 mg PO BID #14 tab 08/31/24 [Rx] Losartan [Cozaar] 25 mg PO DAILY tab 08/31/24 [Rx] Melatonin 5 mg PO HS PRN tab 08/31/24 [Rx] Metoprolol Succinate (ER) [Toprol XL] 50 mg PO BID tab 08/31/24 [Rx] Sennosides [Senokot] 8.6 mg PO BID tab 08/31/24 [Rx] Ticagrelor [Brilinta] 90 mg PO BID tab 08/31/24 [Rx] Tiotropium 2.5 Mcg/Puff [Spiriva Respimat 2.5 Mcg] 2 puff INHALATION RT-DAILY each 08/31/24 [Rx] amLODIPine [Norvasc] 5 mg PO BID tab 08/31/24 [Rx] Follow up Appointment(s)/Referral(s): Nohemi Estrada MD [Primary Care Provider] - 1-2 days Lazaro Lance MD [STAFF PHYSICIAN] - 1 Week [facility] [NON-STAFF] - As Needed Margarita Sánchez MD [Medical Doctor] - 1 Week Activity/Diet/Wound Care/Special Instructions: Patient is going to [facility] Activity as tolerated Continue taking medications as prescribed Continue antibiotics until complete for the next 5 days Patient to follow-up with cardiology outpatient Patient to follow-up with neurology outpatient Continue monitoring Accu-Cheks AC and at bedtime and use sliding scale NovoLog sliding scale 0-150 equals 0 units 151-200 equals 2 units 201-250 equals 4 units 251-300 equals 6 units 301-350 equals 8 units 351-400 equals 10 units Please notify provider if blood sugar is 400 or above Discharge Disposition: TRANSFER TO SNF/ECF
[2024-08-31 14:43] VITALS: BP 160/62; RESP 16; TEMP 97.3
[2024-08-31 15:36] VITALS: PULSE 68
[2024-08-31 16:28] LABS: Glucose,Whole Blood 358 mg/dL (70-110)
[2024-09-01 13:16] LABS: Metanephrines 24 Hour,Urine <20 ug/day (52-341); Normetanephrine 24 Hour,Urine 573 ug/day (88-444); Total Metanephrines 24 Hour,Ur 573 ug/day (140-785); Urine Creatinine, 24 Hr 0.5 gm/24h (0.8-1.8)
[2024-09-01 19:41] LABS: Metanephrine, Free <25 pg/mL (< OR = 57); Normetanephrine, Free 258 pg/mL (< OR = 148); Total, Free (MN + NMN) 258 pg/mL (< OR = 205)
[2024-09-02 06:50] LABS: Dopamine 24 Hr Urine 103 ug/day (65-400); Epinephrine 24 Hr Urine <2 ug/day (0-20); Norepinephrine 24 Hr Urine 74 ug/day (15-80); Total Catecholamines Urine 74 ug/day (15-100); Urine Creatinine,24 Hr 0.5 gm/24h (0.8-1.8)
--- NOTE | 2024-09-05 11:08 | CDI ---
Documentation Clarification Form Date: 09/05/2024 10:43:36 AM From: Gisella Russo RN, CCDS Email: [email or web address] Admit Date: 08/23/2024 05:50:00 PM Patient Name: Jenni Hercules Visit Number: [id number] Discharge Date: 08/31/2024 05:38:00 PM ATTENTION: The Clinical Documentation Specialists (CDI) and [facility] Coding Staff appreciate your assistance in clarifying documentation. Please respond to the clarification below the line at the bottom and electronically sign. The CDI & [facility] Coding staff will review the response and follow-up if needed. Please note: Queries are made part of the Legal Health Record. If you have any questions, please contact the author of this message via ITS. Doctor Samara Pack Your patient had the documented symptom of weakness. Additional clarification is requested. History/Risk Factors: A fib, Ca, CHF, COPD, fibromyalgia. From the 08/23 ED note: "84-year-old female is presenting today for persistent weakness and abnormally elevated blood pressure. Patient is having some difficulty and confusion with medications at home. She does live alone and has difficulty taking care of herself. Recently had an inpatient hospitalization." Clinical Indicators ED: "This is an 84-year-old female, she is presenting today for persistent weakness and abnormally elevated blood pressure." H&P: "Generalized weakness and tiredness, rule out sepsis or postoperative pneumonia." 08/25 IM: "Patient also with weakness, would like to go to Rehab for strength mobility. Patient evaluated by PT/OT therapy recommending Rehab and patient is agreeable as patient has had extensive weakness." 08/31 PT: Normal balance, uses rolling walker, decreased endurance Discharge summary: "Patient has been cleared by consultations and evaluated by physical therapy and is extensively weak with prolonged hospitalization. Recommending Rehab." Treatment: PT/OT - see above; Discharge to Rehab 08/24 Neurology consult: "Recurrent episodes of lethargy, difficulty walking, talking, unclear cause. Differential diagnosis is between TIAs, seizure, or transient metabolic encephalopathy. Patient's mentation much improved today." Is there a corresponding diagnosis/etiology for weakness? [x ] Age related physical debility [ ] Age-related cognitive decline [ ] Unable to determine [ ] Other, please specify MTDD
== END 2024-08-31 17:38 | DRG 884 ==
LOC: EC 13:57 → 5NMEDONC 17:50 → 2SICU 08-25 05:04 → 3SCARD 08-26 18:01 → 4SSUR 08-27 21:35
PROVIDERS: ADMIT Hospitalist; ATTEND Hospitalist
PROC: 4A10X4Z Monitoring of Central Nervous Electrical Activity, External Approach (ICD-10-PCS; 2024-08-25)
PROC: 05HC33Z Insertion of Infusion Device into Left Basilic Vein, Percutaneous Approach (ICD-10-PCS; principal; 2024-08-29 09:45)
DX: R54 Age-related physical debility (principal); G93.41 Metabolic encephalopathy; I16.1 Hypertensive emergency; I11.0 Hypertensive heart disease with heart failure; Z99.81 Dependence on supplemental oxygen; I16.0 Hypertensive urgency; E86.0 Dehydration; I48.0 Paroxysmal atrial fibrillation; E11.9 Type 2 diabetes mellitus without complications; J43.9 Emphysema, unspecified; I69.320 Aphasia following cerebral infarction; J96.11 Chronic respiratory failure with hypoxia; I67.4 Hypertensive encephalopathy; N17.9 Acute kidney failure, unspecified; N39.0 Urinary tract infection, site not specified; I50.9 Heart failure, unspecified; I49.5 Sick sinus syndrome; Z11.52 Encounter for screening for COVID-19; E78.5 Hyperlipidemia, unspecified; I25.10 Atherosclerotic heart disease of native coronary artery without angina pectoris; Z95.0 Presence of cardiac pacemaker; G89.29 Other chronic pain; H35.30 Unspecified macular degeneration; I73.00 Raynaud's syndrome without gangrene; M79.7 Fibromyalgia; R29.810 Facial weakness; Z79.01 Long term (current) use of anticoagulants; Z79.02 Long term (current) use of antithrombotics/antiplatelets; Z79.84 Long term (current) use of oral hypoglycemic drugs; Z79.899 Other long term (current) drug therapy; Z82.49 Family history of ischemic heart disease and other diseases of the circulatory system; Z85.118 Personal history of other malignant neoplasm of bronchus and lung; Z86.718 Personal history of other venous thrombosis and embolism; Z87.01 Personal history of pneumonia (recurrent); Z87.891 Personal history of nicotine dependence; Z92.3 Personal history of irradiation; Z95.5 Presence of coronary angioplasty implant and graft
CPT/HCPCS: 36410; 36415; 36600; 70450; 70496; 70498; 71046; 71250; 74175; 76937; 80048; 80053; 81001; 82088; 82384; 82805; 83036; 83605; 83735; 83835; 84100; 84145; 84244; 84439; 84443; 84484; 85025; 85610; 85652; 85730; 86140; 87040; 87636; 93005; 94640; 94760; 95813; 96365; 96375; 99285

== ENCOUNTER → 2024-09-30 | Outpatient (CLI) | payer MEDICARE, OTHER | END | disposition home or self-care (01) | LOC: LABPRL 14:55 | PROVIDERS: ATTEND Family Medicine | DX: J15.69 Pneumonia due to other Gram-negative bacteria (principal); G40.89 Other seizures | CPT/HCPCS: 87070; 87205 ==

== ENCOUNTER 2024-11-11 15:21 | Inpatient (IN) | payer MEDICARE, OTHER ==
--- NOTE | 2024-11-11 15:36 | ED ---
General Adult HPI - General Stated complaint: Chest Pain,[place] Time Seen by Provider: 11/11/24 15:24 Source: patient, EMS, RN notes reviewed Mode of arrival: EMS Limitations: no limitations - History of Present Illness Initial comments: Patient is an 84-year-old female presents emergency department with concerns with chest discomfort and nausea vomiting. Patient did have some diarrhea earlier this morning. Patient has had some nausea and vomiting the last couple of hours. Patient does have history of A-fib and EMS reports patient had increased symptoms while she was in A-fib on the monitor. Patient still has some nausea. Patient has had some chest pain and associated dyspnea, mild at this time. - Related Data Home Medications Medication Instructions Recorded Confirmed Fluticasone/Umeclidin/Vilanter 1 puff INHALATION RT-DAILY 04/19/20 08/23/24 [Trelegy Ellipta 100-62.5-25] Pantoprazole Sodium [Protonix] 20 mg PO DAILY 12/01/22 08/23/24 Mirtazapine [Remeron] 15 mg PO HS 04/07/24 08/23/24 Atorvastatin [Lipitor] 80 mg PO HS 06/21/24 08/23/24 predniSONE 5 mg PO DAILY 06/21/24 08/23/24 Fluconazole [Diflucan] 100 mg PO DAILY 08/18/24 08/23/24 Previous Rx's Medication Instructions Recorded metFORMIN HCL [Glucophage] 500 mg PO BID 30 Days #60 tab 08/20/24 ALPRAZolam [Xanax] 0.25 mg PO TID PRN #6 tab 08/31/24 Acetaminophen Tab [Tylenol] 650 mg PO Q6HR PRN tab 08/31/24 Apixaban [Eliquis] 2.5 mg PO BID tab 08/31/24 Artificial Tears-Hypromellose 2 drops BOTH EYES QID PRN ml 08/31/24 [Artificial Tear Drops] Benzonatate [Tessalon Perles] 100 mg PO TID PRN cap 08/31/24 Budesonide-Formot 160-4.5 Mcg 2 puff INHALATION RT-BID each 08/31/24 [Symbicort 160-4.5 Mcg Inhaler] Cefuroxime [Ceftin] 250 mg PO BID 5 Days #10 each 08/31/24 Ipratropium-Albuterol Nebulize 3 ml INHALATION RT-QID PRN each 08/31/24 [Duoneb 0.5 mg-3 mg/3 ml Soln] Lacosamide [Vimpat] 100 mg PO BID #14 tab 08/31/24 Losartan [Cozaar] 25 mg PO DAILY tab 08/31/24 Melatonin 5 mg PO HS PRN tab 08/31/24 Metoprolol Succinate (ER) [Toprol 50 mg PO BID tab 08/31/24 XL] Sennosides [Senokot] 8.6 mg PO BID tab 08/31/24 Ticagrelor [Brilinta] 90 mg PO BID tab 08/31/24 Tiotropium 2.5 Mcg/Puff [Spiriva 2 puff INHALATION RT-DAILY each 08/31/24 Respimat 2.5 Mcg] amLODIPine [Norvasc] 5 mg PO BID tab 08/31/24 Allergies Allergy/AdvReac Type Severity Reaction Status Date / Time No Known Allergies Allergy Verified 11/11/24 16:21 Review of Systems ROS Statement: Those systems with pertinent positive or pertinent negative responses have been documented in the HPI. ROS Other: All systems not noted in ROS Statement are negative. Constitutional: Denies: fever Eyes: Denies: eye pain ENT: Denies: ear pain Respiratory: Reports: as per HPI. Denies: cough Cardiovascular: Reports: as per HPI, chest pain Gastrointestinal: Reports: nausea, vomiting, diarrhea. Denies: abdominal pain Musculoskeletal: Denies: back pain Skin: Denies: rash Neurological: Denies: weakness Past Medical History Past Medical History: Atrial Fibrillation, Cancer, Heart Failure, COPD, CVA/TIA, Diabetes Mellitus, Deep Vein Thrombosis (DVT), Fibromyalgia, GERD/Reflux, Hyperlipidemia, Hypertension, Osteoarthritis (OA), Pneumonia, Sleep Apnea/CPAP/BIPAP, Vascular Disorder Additional Past Medical History / Comment(s): back pain , lung cancer-radiation opnly, HOME 02 2 LITERS N/C, BLOOD CLOT AFTER SX, CVA LT SIDE AFFECTED SINCE RESOLVED, HIATAL HERNIA. SHINGLES 30 YEARS AGO, DOES'NT USE CPAP MACHINE.in past for short period of time took oral meds for dm-then taken off meds-pt stated not considered diabetic now but occ will check bs., macular degeneration.past broken rt leg and lt wrist. Raynauds. Pt currently has 3 fractured ribs on the right that she has "had for years and will not heal". History of Any Multi-Drug Resistant Organisms: MRSA Date of last positivie culture/infection: 09/25/16 MDRO Source:: BRONCH WASH Past Surgical History: Cholecystectomy, Heart Catheterization With Stent, Orthopedic Surgery Additional Past Surgical History / Comment(s): rt leg repaired after break-has pins, lt wrist-plate and screws. lung bx, stents tung groins. Past Anesthesia/Blood Transfusion Reactions: Family History of Problems w/ Anesthesia Additional Past Anesthesia/Blood Transfusion Reaction / Comment(s): daughter has diff waking after aa Date of Last Stent Placement:: unk Type of Cardiac Device: Permanent Pacemaker Device Placement Date:: 09/25/20 Past Psychological History: Anxiety Smoking Status: Former smoker Past Alcohol Use History: Occasional Past Drug Use History: None Reported - Past Family History Father Family Medical History: Congestive Heart Failure (CHF), COPD Additional Family Medical History / Comment(s): emphysema Mother Family Medical History: Cancer General Exam Limitations: no limitations General appearance: alert, in no apparent distress Head exam: Present: normocephalic Eye exam: Present: normal appearance Neck exam: Present: normal inspection Respiratory exam: Present: normal lung sounds bilaterally Cardiovascular Exam: Present: regular rate, normal rhythm, normal heart sounds Expanded Peripheral pulses: 2+: Radial (R), Radial (L), Posterior Tibialis (R), Posterior Tibialis (L) GI/Abdominal exam: Present: soft. Absent: distended, tenderness Extremities exam: Present: normal inspection. Absent: pedal edema, calf t enderness Neurological exam: Present: alert Psychiatric exam: Present: normal affect, normal mood Skin exam: Present: normal color Course Vital Signs 11/11/24 11/11/24 16:14 17:21 Temperature 98.2 F 98.9 F Pulse Rate 56 L 64 Respiratory 16 16 Rate Blood Pressure 123/74 126/74 O2 Sat by Pulse 98 97 Oximetry EKG Findings - EKG Results: EKG: interpreted by ERMD (Paced rhythm with a rate of 63. SC 230. Normal axis. Normal QRS. No acute ST change.) Medical Decision Making - Medical Decision Making Was pt. sent in by a medical professional or institution (, PA, MEAT GRINDER, urgent care, hospital, or half-way...) When possible be specific @ -No Did you speak to anyone other than the patient for history (EMS, parent, family, police, friend...)? What history was obtained from this source @ -EMS provides a history of their concerns that patient jumped into A-fib with increasing of symptoms Did you review nursing and triage notes (agree or disagree)? Why? @ -I reviewed and agree with nursing and triage notes Were old charts reviewed (outside hosp., previous admission, EMS record, old EKG, old radiological studies, urgent care reports/EKG's, half-way records)? Report findings @ -No old charts were reviewed Differential Diagnosis (chest pain, altered mental status, abdominal pain women, abdominal pain men, vaginal bleeding, weakness, fever, dyspnea, syncope, headache, dizziness, GI bleed, back pain, seizure, CVA, palpatations, mental health, musculoskeletal)? @ -Differential Chest Pain: Stable Angina, Unstable Angina, STEMI, NSTEMI Aortic Dissection, Pneumothorax, Musculoskeletal, Esophageal Spasm GERD, Cholecystitis, Pancreatitis, Zoster, this is not meant to be an all-inclusive list. EKG interpreted by me (3pts min.). @ -As above X-rays interpreted by me (1pt min.). @ -Chest x-ray shows no acute process CT interpreted by me (1pt min.). @ -None done U/S interpreted by me (1pt. min.). @ -None done What testing was considered but not performed or refused? (CT, X-rays, U/S, labs)? Why? @ -None What meds were considered but not given or refused? Why? @ -None Did you discuss the management of the patient with other professionals (professionals i.e. , PA, MEAT GRINDER, lab, RT, psych nurse, social service manager, technical illustrations map inker, teacher, dog control officer, case briefer)? Give summary @ -Case was discussed with practitioner Adrianna Ly covering Dr. Estrada who will admit Was smoking cessation discussed for >3mins.? @ -No Was critical care preformed (if so, how long)? @ -No Were there social determinants of health that impacted care today? How? (Homelessness, low income, unemployed, alcoholism, drug addiction, transportation, low edu. Level, literacy, decrease access to med. care, senior care, rehab)? @ -No Was there de-escalation of care discussed even if they declined (Discuss DNR or withdrawal of care, Hospice)? DNR status @ -No What co-morbidities impacted this encounter? (DM, HTN, Smoking, COPD, CAD, Ca ncer, CVA, ARF, Chemo, Hep., AIDS, mental health diagnosis, sleep apnea, morbid obesity)? @ -History of A-fib Was patient admitted / discharged? Hospital course, mention meds given and route, prescriptions, significant lab abnormalities, going to OR and other pertinent info. @ -Patient presents with chest discomfort nausea and vomiting. Initial evaluation unremarkable. Patient reevaluated and resting comfortably in bed. Patient is updated on results and plan. Patient will be admitted with cardiac consult. Admission orders written. Patient is updated Undiagnosed new problem with uncertain prognosis? @ -No Drug Therapy requiring intensive monitoring for toxicity (Heparin, Nitro, Insul in, Cardizem)? @ -No Were any procedures done? @ -No Diagnosis/symptom? @ -Chest pain Acute, or Chronic, or Acute on Chronic? @ -Acute Uncomplicated (without systemic symptoms) or Complicated (systemic symptoms)? @ -Default Side effects of treatment? @ -No Exacerbation, Progression, or Severe Exacerbation? @ -No Poses a threat to life or bodily function? How? (Chest pain, USA, IA, pneumonia, PE, COPD, DKA, ARF, appy, cholecystitis, CVA, Diverticulitis, Homicidal, Suicidal, threat to staff... and all critical care pts) @ -Threat to cardiac function - Lab Data Result diagrams: 11/11/24 16:05 11/11/24 16:05 Lab Results 11/11/24 11/11/24 11/11/24 Range/Units 16:05 16:05 16:05 WBC 13.95 H (4.50-10.00) 10*3/uL RBC 4.16 (4.10-5.20) 10*6/uL Hgb 12.4 (12.0-15.0) g/dL Hct 39.0 (37.2-46.3) % MCV 93.8 (80.0-97.0) fL MCH 29.8 (27.0-32.0) pg MCHC 31.8 L (32.0-37.0) g/dL Plt Count 234 (140-440) 10*3/uL MPV 10.7 (9.5-12.2) fL Immature Gran % (Auto) 0.9 % Neutrophils % 84.9 % Lymphocytes % 7.5 % Monocytes % 5.7 % Eosinophils % 0.6 % Basophils % 0.4 % Immature Gran # 0.13 H (0.00-0.04) 10*3/uL Neutrophils # 11.85 H (1.80-7.70) 10*3/uL Lymphocytes # 1.04 (0.90-5.00) 10*3/uL Monocytes # 0.79 (0.20-1.00) 10*3/uL Eosinophils # 0.08 (0.04-0.35) 10*3/uL Basophils # 0.06 (0.00-0.10) 10*3/uL PT (10.0-12.5) sec INR (<1.2) APTT (22.0-30.0) sec D-Dimer (<0.60) mg/L FEU Sodium 137 (137-145) mmol/L Potassium 4.5 (3.5-5.1) mmol/L Chloride 99 (98-107) mmol/L Carbon Dioxide 28 (22-30) mmol/L Anion Gap 10 mmol/L BUN 38 H (7-17) mg/dL Creatinine 1.28 H (0.52-1.04) mg/dL Est GFR (CKD-EPI)AfAm 44 (>60 ml/min/1.73 sqM) Est GFR (CKD-EPI)NonAf 38 (>60 ml/min/1.73 sqM) Glucose 181 H (74-99) mg/dL Calcium 9.7 (8.4-10.2) mg/dL Magnesium 1.6 (1.6-2.3) mg/dL Total Bilirubin 0.8 (0.2-1.3) mg/dL AST 33 (14-36) U/L ALT 24 (4-34) U/L Alkaline Phosphatase 74 (38-126) U/L Troponin I <0.012 (0.000-0.034) ng/mL NT-Pro-B Natriuret Pep 557 pg/mL Total Protein 7.2 (6.3-8.2) g/dL Albumin 4.6 (3.5-5.0) g/dL Amylase 71 (30-110) U/L Lipase 151 (23-300) U/L 11/11/24 Range/Units 18:47 WBC (4.50-10.00) 10*3/uL RBC (4.10-5.20) 10*6/uL Hgb (12.0-15.0) g/dL Hct (37.2-46.3) % MCV (80.0-97.0) fL MCH (27.0-32.0) pg MCHC (32.0-37.0) g/dL Plt Count (140-440) 10*3/uL MPV (9.5-12.2) fL Immature Gran % (Auto) % Neutrophils % % Lymphocytes % % Monocytes % % Eosinophils % % Basophils % % Immature Gran # (0.00-0.04) 10*3/uL Neutrophils # (1.80-7.70) 10*3/uL Lymphocytes # (0.90-5.00) 10*3/uL Monocytes # (0.20-1.00) 10*3/uL Eosinophils # (0.04-0.35) 10*3/uL Basophils # (0.00-0.10) 10*3/uL PT 11.3 (10.0-12.5) sec INR 1.0 (<1.2) APTT 21.2 L (22.0-30.0) sec D-Dimer 0.68 H (<0.60) mg/L FEU Sodium (137-145) mmol/L Potassium (3.5-5.1) mmol/L Chloride (98-107) mmol/L Carbon Dioxide (22-30) mmol/L Anion Gap mmol/L BUN (7-17) mg/dL Creatinine (0.52-1.04) mg/dL Est GFR (CKD-EPI)AfAm (>60 ml/min/1.73 sqM) Est GFR (CKD-EPI)NonAf (>60 ml/min/1.73 sqM) Glucose (74-99) mg/dL Calcium (8.4-10.2) mg/dL Magnesium (1.6-2.3) mg/dL Total Bilirubin (0.2-1.3) mg/dL AST (14-36) U/L ALT (4-34) U/L Alkaline Phosphatase (38-126) U/L Troponin I (0.000-0.034) ng/mL NT-Pro-B Natriuret Pep pg/mL Total Protein (6.3-8.2) g/dL Albumin (3.5-5.0) g/dL Amylase (30-110) U/L Lipase (23-300) U/L Disposition Clinical Impression: Chest pain Disposition: ADMITTED IP TO THIS HOSP Is patient prescribed a controlled substance at d/c from ED?: No Referrals: Nohemi Estrada MD [Primary Care Provider] - 1-2 days Time of Disposition: 19:50
[2024-11-11 16:16] LABS: Basophils # (A) 0.06 10*3/uL (0.00-0.10); Basophils % (A) 0.4 %; Eosinophils # (A) 0.08 10*3/uL (0.04-0.35); Eosinophils % (A) 0.6 %; HGB 12.4 g/dL (12.0-15.0); Lymphocytes # (A) 1.04 10*3/uL (0.90-5.00); Lymphocytes % (A) 7.5 %; MCH 29.8 pg (27.0-32.0); MCHC 31.8 g/dL (32.0-37.0); MCV 93.8 fL (80.0-97.0); Mean Platelet Volume 10.7 fL (9.5-12.2); Monocytes # (A) 0.79 10*3/uL (0.20-1.00); Monocytes % (A) 5.7 %; Neutrophils # (A) 11.85 10*3/uL (1.80-7.70); Neutrophils % (A) 84.9 %; Platelet Count 234 10*3/uL (140-440); RBC 4.16 10*6/uL (4.10-5.20); RDW 14.3 % (11.5-14.5); WBC 13.95 10*3/uL (4.50-10.00)
[2024-11-11] MEDS: ASPIRIN 81 MG PO STA (16:22)
[2024-11-11 16:35] LABS: ALT 24 U/L (4-34); AST 33 U/L (14-36); African American GFR (CKD) 44 (>60 ml/min/1.73 sqM); Albumin 4.6 g/dL (3.5-5.0); Alkaline Phosphatase 74 U/L (38-126); Amylase 71 U/L (30-110); Anion Gap 10 mmol/L; Blood Urea Nitrogen 38 mg/dL (7-17); Calcium 9.7 mg/dL (8.4-10.2); Carbon Dioxide 28 mmol/L (22-30); Chloride 99 mmol/L (98-107); Glucose 181 mg/dL (74-99); Lipase 151 U/L (23-300); Magnesium 1.6 mg/dL (1.6-2.3); Non-African American GFR(CKD) 38 (>60 ml/min/1.73 sqM); Potassium 4.5 mmol/L (3.5-5.1); Sodium 137 mmol/L (137-145); Total Bilirubin 0.8 mg/dL (0.2-1.3); Total Protein 7.2 g/dL (6.3-8.2)
[2024-11-11 16:44] LABS: NT-Pro-B-Type Natriuretic Pept 557 pg/mL
--- NOTE | 2024-11-11 16:51 | XR ---
EXAMINATION TYPE: XR chest 2V DATE OF EXAM: 11/11/2024 4:43 PM COMPARISON: 08/23/2024 CLINICAL INDICATION: Female, 84 years old with history of Chest Pain: Shortness of breath TECHNIQUE: XR chest 2V views of the chest are obtained. FINDINGS: Scattered senescent parenchymal changes noted. Hyperinflation compatible with COPD. Dual-lead pacer i s in place. No evidence for infiltrate. No evidence for atelectasis. Heart size is stable. Mediastinal structures are stable and grossly unremarkable. No evidence for hilar prominence. Degenerative changes dorsal spine. IMPRESSION: 1. No evidence for acute pulmonary disease. [facility], , 11/11/2024 4:48 PM
[2024-11-11 19:15] LABS: Partial Thromboplastin Time 21.2 sec (22.0-30.0); Prothrombin Time 11.3 sec (10.0-12.5)
[2024-11-11] MEDS ORDERED: NITROGLYCERIN SL TABS 0.4 MG TAB SUBLINGUAL PRN (19:51)
[2024-11-12] MEDS: DIPHENOX-ATROP 2.5-0.025 MG 1 EACH TAB PO STA (04:47)
[2024-11-12 10:19] LABS: Chol/HDL Ratio 2.18 Ratio; LDL Cholesterol,Calculated 66.6 mg/dL (0.0-131.0)
[2024-11-12] MEDS: ASPIRIN 325 MG TAB PO SCH (11:26)
--- NOTE | 2024-11-12 11:36 | P.CRDCN ---
History of Present Illness Consult date: 11/12/24 History of present illness: HISTORY OF PRESENTING ILLNESS: 84-year-old presented to the hospital because of feeling weak. 2 days ago he had a mechanical fall when he tripped over furniture at his home. He hit his left side of flank and he has a small bruise in that area. On admission there was also some concerns of nausea vomiting and some chest discomfort. He also reported having some diarrhea for last 1 to 2 days. He was last hospitalized 08/23/2024 for hypertensive urgency and possible TIA. He does have a history of supine hypertension with orthostatic instability from tilt table test from 05/2024. Cardiology was consulted for nonspecific complaints of substernal chest pressure. At this time of evaluation patient denies any active chest pain chest pressure. His primary complaint is left flank pain from his fall. Admission Vitals: BP 158 over 80 mmHg, heart rate 52 bpm Admission Labs: Hb 12, BUN 38, creatinine 1.28. Baseline creatinine around 0.7. Likely dehydration from diarrhea and poor oral intake from nausea. TG 132, LDL 66, troponin x 3 negative, NT-proBNP 557, Admission EKG: Atrial paced V sensed rhythm Home cardiac medications Plavix 75, Lipitor 40, metoprolol 25 twice daily, losartan 50 daily, amlodipine 10, Eliquis 2.5 twice daily REVIEW OF SYSTEMS: 14 point review of system is negative except what is mentioned above in HPI. PHYSICAL EXAMINATION: Neck: Brisk carotid upstroke, no jugular venous distention. Lungs: Clear to auscultation. Heart: Regular rate and rhythm, S1-S2, , no murmur or rub. Abdomen: Soft nontender, positive bowel sounds. Extremities: No edema, intact distal pulses. Neuro: Alert, oritented, no focal deficits. Detailed neuro exam was not performed. ASSESSMENT: # Nausea and vomiting diarrhea # Generalized weakness # Mechanical fall with blunt trauma to left flank # VERNELL from poor oral intake from nausea and dehydration from diarrhea # History of stable CAD status post PCI to LCx in past # Paroxysmal atrial fibrillation # Sick sinus syndrome status post PPM # History of supine hypertension with orthostatic instability Permitil table test from 05/2024 # Possible TIA 08/2024. Prior history of CVA/TIA # Moderate left carotid stenosis 60% # History of lung cancer with possible relapse # Advanced COPD # Essential hypertension PLAN: Continue home cardiac medications. Hold losartan because of VERNELL. Reduce amlodipine to 5 Perform orthostatic vital signs Trauma workup as per primary team ppm interrogation Brent Cottrell MD, FACC, RPVI Thank you for allowing [facility] to participate in this patient's care. Feel free to reach out in case of any followup questions. Past Medical History Past Medical History: Atrial Fibrillation, Cancer, Heart Failure, COPD, CVA/TIA, Diabetes Mellitus, Deep Vein Thrombosis (DVT), Fibromyalgia, GERD/Reflux, Hyperlipidemia, Hypertension, Osteoarthritis (OA), Pneumonia, Sleep Apnea/CPAP/BIPAP, Vascular Disorder Additional Past Medical History / Comment(s): back pain , lung cancer-radiation opnly, HOME 02 2 LITERS N/[place], BLOOD CLOT AFTER SX, CVA LT SIDE AFFECTED SINCE RESOLVED, HIATAL HERNIA. SHINGLES 30 YEARS AGO, DOES'NT USE CPAP MACHINE.in past for short period of time took oral meds for dm-then taken off meds-pt stated not considered diabetic now but occ will check bs., macular degeneration.past broken rt leg and lt wrist. Raynauds. Pt currently has 3 fractured ribs on the right that she has "had for years and will not heal". History of Any Multi-Drug Resistant Organisms: MRSA Date of last positivie culture/infection: 09/25/16 MDRO Source:: BRONCH WASH Past Surgical History: Cholecystectomy, Heart Catheterization With Stent, Orthopedic Surgery Additional Past Surgical History / Comment(s): rt leg repaired after break-has pins, lt wrist-plate and screws. lung bx, stents tung groins. Past Anesthesia/Blood Transfusion Reactions: Family History of Problems w/ Anesthesia Additional Past Anesthesia/Blood Transfusion Reaction / Comment(s): daughter has diff waking after aa Date of Last Stent Placement:: unk Type of Cardiac Device: Permanent Pacemaker Device Placement Date:: 09/25/20 Past Psychological History: Anxiety Additional Psychological History / Comment(s): Pt lives alone. Daughters live nearby. Uses home O2, 2L. Uses walker if she feels "wobbly" Smoking Status: Former smoker Past Alcohol Use History: Occasional Additional Past Alcohol Use History / Comment(s): started smopking at age 14(1956), quit 2011 Past Drug Use History: None Reported - Past Family History Father Family Medical History: Congestive Heart Failure (CHF), COPD Additional Family Medical History / Comment(s): emphysema Mother Family Medical History: Cancer Medications and Allergies Home Medications Medication Instructions Recorded Confirmed Type Fluticasone/Umeclidin/Vilanter 1 puff INHALATION RT-DAILY 04/19/20 11/11/24 History [Brinda Ellipta 100-62.5-25] predniSONE 5 mg PO DAILY 06/21/24 11/11/24 History Acetaminophen Tab [Tylenol] 650 mg PO Q6HR PRN tab 08/31/24 11/11/24 Rx Apixaban [Eliquis] 2.5 mg PO BID tab 08/31/24 11/11/24 Rx Ipratropium-Albuterol Nebulize 3 ml INHALATION RT-QID PRN each 08/31/24 11/11/24 Rx [Duoneb 0.5 mg-3 mg/3 ml Soln] ALPRAZolam [Xanax] 0.25 mg PO TID PRN 11/11/24 11/11/24 History ALPRAZolam [Xanax] 0.5 mg PO HS 11/11/24 11/11/24 History Albuterol Inhaler [Ventolin Hfa 2 puff INHALATION RT-Q4H PRN 11/11/24 11/11/24 History Inhaler] Atorvastatin Calcium [Lipitor] 40 mg PO HS 11/11/24 11/11/24 History Atorvastatin [Lipitor] 40 mg PO HS 11/11/24 11/11/24 History Clopidogrel [Plavix] 75 mg PO DAILY 11/11/24 11/11/24 History Docusate [Colace] 200 mg PO DAILY@0900 11/11/24 11/11/24 History Ipratropium-Albuterol Nebulize 3 ml INHALATION RT-TID 11/11/24 11/11/24 History [Duoneb 0.5 mg-3 mg/3 ml Soln] Lacosamide [Vimpat] 50 mg PO BID 11/11/24 11/11/24 History Losartan [Cozaar] 50 mg PO DAILY 11/11/24 11/11/24 History Melatonin 10 mg PO HS 11/11/24 11/11/24 History Metoprolol Tartrate [Lopressor] 25 mg PO BID 11/11/24 11/11/24 History Pantoprazole [Protonix] 40 mg PO Q12H 11/11/24 11/11/24 History Triamcinolone Acetonide [Nasacort] 1 spray EA NOSTRIL BID 11/11/24 11/11/24 History amLODIPine [Norvasc] 10 mg PO DAILY 11/11/24 11/11/24 History polyethylene glycoL 3350 [Miralax] 17 gm PO DAILY PRN 11/11/24 11/11/24 History Allergies Allergy/AdvReac Type Severity Reaction Status Date / Time No Known Allergies Allergy Verified 11/11/24 21:33 Physical Exam Vitals: Vital Signs Temp Pulse Pulse Resp BP BP Pulse Ox 11/12/24 09:34 64 18 144/52 100 11/12/24 08:36 97.5 F L 72 18 158/80 96 11/12/24 08:23 98.2 F 52 L 18 129/64 97 11/12/24 08:00 67 17 11/12/24 03:26 98.5 F 57 L 14 126/55 94 L 11/12/24 02:00 56 L 18 130/94 98 11/11/24 23:00 55 L 18 129/56 96 11/11/24 21:48 55 L 18 130/61 99 11/11/24 19:49 85 18 124/56 99 11/11/24 17:21 98.9 F 64 16 126/74 97 11/11/24 16:14 98.2 F 56 L 16 123/74 98 Intake and Output 11/11/24 11/12/24 11/12/24 22:59 06:59 14:59 Other: Weight 54.431 kg 54.431 kg Results 11/11/24 16:05 11/11/24 16:05 Cardiac Enzymes 11/11/24 11/11/24 11/11/24 Range/Units 16:05 16:05 20:11 AST 33 (14-36) U/L Troponin I <0.012 <0.012 (0.000-0.034) ng/mL 11/11/24 Range/Units 22:58 AST (14-36) U/L Troponin I <0.012 (0.000-0.034) ng/mL Coagulation 11/11/24 Range/Units 18:47 PT 11.3 (10.0-12.5) sec APTT 21.2 L (22.0-30.0) sec Lipids 11/11/24 Range/Units 12:13 Triglycerides 162.00 H (0.00-149.00) mg/dL Cholesterol 183.00 (0.00-200.00) mg/dL HDL Cholesterol 84.00 H (40.00-60.00) mg/dL Cholesterol/HDL Ratio 2.18 Ratio CBC 11/11/24 Range/Units 16:05 WBC 13.95 H (4.50-10.00) 10*3/uL RBC 4.16 (4.10-5.20) 10*6/uL Hgb 12.4 (12.0-15.0) g/dL Hct 39.0 (37.2-46.3) % Plt Count 234 (140-440) 10*3/uL Comprehensive Metabolic Panel 11/11/24 Range/Units 16:05 Sodium 137 (137-145) mmol/L Potassium 4.5 (3.5-5.1) mmol/L Chloride 99 (98-107) mmol/L Carbon Dioxide 28 (22-30) mmol/L BUN 38 H (7-17) mg/dL Creatinine 1.28 H (0.52-1.04) mg/dL Glucose 181 H (74-99) mg/dL Calcium 9.7 (8.4-10.2) mg/dL AST 33 (14-36) U/L ALT 24 (4-34) U/L Alkaline Phosphatase 74 (38-126) U/L Total Protein 7.2 (6.3-8.2) g/dL Albumin 4.6 (3.5-5.0) g/dL Current Medications Generic Name Dose Route Start Last Admin Trade Name Freq PRN Reason Stop Dose Admin Amlodipine Besylate 5 mg 11/12/24 11:45 Amlodipine 5 Mg Tab PO DAILY [facility] Apixaban 2.5 mg 11/12/24 11:45 Apixaban 5 Mg Tab PO BID [facility] Protocol Aspirin 325 mg 11/12/24 09:00 11/12/24 11:26 Aspirin 325 Mg Tab PO Not Given DAILY [facility] Clopidogrel Bisulfate 75 mg 11/12/24 11:45 Clopidogrel 75 Mg Tab PO DAILY [facility] Diphenoxylate HCl/Atropine 1 each 11/12/24 04:20 Diphenox-Atrop 2.5-0.025 Mg 1 Each Tab PO Q6HR PRN Diarrhea Metoprolol Tartrate 25 mg 11/12/24 11:45 Metoprolol Tartrate 25 Mg Tab PO BID [facility] Nitroglycerin 0.4 mg 11/11/24 19:51 Nitroglycerin Sl Tabs 0.4 Mg Tab SUBLINGUAL Q5M PRN Chest Pain Intake and Output 11/11/24 11/12/24 11/12/24 22:59 06:59 14:59 Other: Weight 54.431 kg 54.431 kg Patient Weight 11/13/24 06:59 Weight 54.431 kg 11/11/24 16:05 11/11/24 16:05
[2024-11-12 12:02] LABS: Glucose,Whole Blood 106 mg/dL (70-110)
[2024-11-12] MEDS: METOPROLOL TARTRATE 25 MG TAB PO SCH (12:22)
[2024-11-12] MEDS: amLODIPine 5 MG TAB PO SCH (12:22)
[2024-11-12] MEDS: APIXABAN 2.5 MG TABLET PO SCH (12:23)
[2024-11-12] MEDS: CLOPIDOGREL 75 MG TAB PO SCH (12:23)
--- NOTE | 2024-11-12 13:01 | P.CRDCN ---
History of Present Illness Consult date: 11/12/24 History of present illness: HISTORY OF PRESENTING ILLNESS: 84-year-old presented to the hospital because of feeling weak. Poor oral intake because of nausea vomiting and diarrhea which started 1 day prior to coming to the hospital. She is feeling lightheaded and dizzy and reported to have some substernal chest heaviness symptoms for which she presented to the ER. He was last hospitalized 08/23/2024 for hypertensive urgency and possible TIA. He does have a history of supine hypertension with orthostatic instability from tilt table test from 05/2024. Cardiology was consulted for nonspecific complaints of substernal chest pressure. Admission Vitals: BP 158 over 80 mmHg, heart rate 52 bpm Admission Labs: Hb 12, BUN 38, creatinine 1.28. Baseline creatinine around 0.7. Likely dehydration from diarrhea and poor oral intake from nausea. TG 132, LDL 66, troponin x 3 negative, NT-proBNP 557, Admission EKG: Atrial paced V sensed rhythm Home cardiac medications Plavix 75, Lipitor 40, metoprolol 25 twice daily, losartan 50 daily, amlodipine 10, Eliquis 2.5 twice daily REVIEW OF SYSTEMS: 14 point review of system is negative except what is mentioned above in HPI. PHYSICAL EXAMINATION: Neck: Brisk carotid upstroke, no jugular venous distention. Lungs: Clear to auscultation. Heart: Regular rate and rhythm, S1-S2, , no murmur or rub. Abdomen: Soft nontender, positive bowel sounds. Extremities: No edema, intact distal pulses. Neuro: Alert, oritented, no focal deficits. Detailed neuro exam was not performed. ASSESSMENT: # Nausea and vomiting diarrhea # Generalized weakness # VERNELL from poor oral intake from nausea and dehydration from diarrhea # History of stable CAD status post PCI to LCx in past # Paroxysmal atrial fibrillation # Sick sinus syndrome status post PPM # History of supine hypertension with orthostatic instability noticed on tilt table test from 05/2024 # Possible TIA 08/2024. Prior history of CVA/TIA # Moderate left carotid stenosis 60% # History of lung cancer with possible relapse # Advanced COPD # Essential hypertension PLAN: Continue home cardiac medications. Hold losartan because of VERNELL. Reduce amlodipine to 5 Perform orthostatic vital signs PPM interrogation was within normal limits. She is 98% a paced with appropriate lead impedances. No alarms of any atrial or ventricle tachycardia noticed Once blood pressure is better and kidney function is back to normal, resume her home medications at home doses. She is otherwise cleared from cardiovascular standpoint recommend outpatient follow-up. If no recent cardiac stress test, consider outpatient stress testing Past Medical History Past Medical History: Atrial Fibrillation, Cancer, Heart Failure, COPD, CVA/TIA, Diabetes Mellitus, Deep Vein Thrombosis (DVT), Fibromyalgia, GERD/Reflux, Hyperlipidemia, Hypertension, Osteoarthritis (OA), Pneumonia, Sleep Apnea/CPAP/BIPAP, Vascular Disorder Additional Past Medical History / Comment(s): back pain , lung cancer-radiation opnly, HOME 02 2 LITERS N/[place], BLOOD CLOT AFTER SX, CVA LT SIDE AFFECTED SINCE RESOLVED, HIATAL HERNIA. SHINGLES 30 YEARS AGO, DOES'NT USE CPAP MACHINE.in past for short period of time took oral meds for dm-then taken off meds-pt stated not considered diabetic now but occ will check bs., macular degeneration.past broken rt leg and lt wrist. Raynauds. Pt currently has 3 fractured ribs on the right that she has "had for years and will not heal". History of Any Multi-Drug Resistant Organisms: MRSA Date of last positivie culture/infection: 09/25/16 MDRO Source:: BRONCH WASH Past Surgical History: Cholecystectomy, Heart Catheterization With Stent, Orthopedic Surgery Additional Past Surgical History / Comment(s): rt leg repaired after break-has pins, lt wrist-plate and screws. lung bx, stents tung groins. Past Anesthesia/Blood Transfusion Reactions: Family History of Problems w/ Anesthesia Additional Past Anesthesia/Blood Transfusion Reaction / Comment(s): daughter has diff waking after aa Date of Last Stent Placement:: unk Type of Cardiac Device: Permanent Pacemaker Device Placement Date:: 09/25/20 Past Psychological History: Anxiety Additional Psychological History / Comment(s): Pt lives alone. Daughters live nearby. Uses home O2, 2L. Uses walker if she feels "wobbly" Smoking Status: Former smoker Past Alcohol Use History: Occasional Additional Past Alcohol Use History / Comment(s): started smopking at age 14(1955), quit 2011 Past Drug Use History: None Reported - Past Family History Father Family Medical History: Congestive Heart Failure (CHF), COPD Additional Family Medical History / Comment(s): emphysema Mother Family Medical History: Cancer Medications and Allergies Home Medications Medication Instructions Recorded Confirmed Type Fluticasone/Umeclidin/Vilanter 1 puff INHALATION RT-DAILY 04/19/20 11/11/24 History [Brinda Ellipta 100-62.5-25] predniSONE 5 mg PO DAILY 06/21/24 11/11/24 History Acetaminophen Tab [Tylenol] 650 mg PO Q6HR PRN tab 08/31/24 11/11/24 Rx Apixaban [Eliquis] 2.5 mg PO BID tab 08/31/24 11/11/24 Rx Ipratropium-Albuterol Nebulize 3 ml INHALATION RT-QID PRN each 08/31/24 11/11/24 Rx [Duoneb 0.5 mg-3 mg/3 ml Soln] ALPRAZolam [Xanax] 0.25 mg PO TID PRN 11/11/24 11/11/24 History ALPRAZolam [Xanax] 0.5 mg PO HS 11/11/24 11/11/24 History Albuterol Inhaler [Ventolin Hfa 2 puff INHALATION RT-Q4H PRN 11/11/24 11/11/24 History Inhaler] Atorvastatin Calcium [Lipitor] 40 mg PO HS 11/11/24 11/11/24 History Atorvastatin [Lipitor] 40 mg PO HS 11/11/24 11/11/24 History Clopidogrel [Plavix] 75 mg PO DAILY 11/11/24 11/11/24 History Docusate [Colace] 200 mg PO DAILY@0900 11/11/24 11/11/24 History Ipratropium-Albuterol Nebulize 3 ml INHALATION RT-TID 11/11/24 11/11/24 History [Duoneb 0.5 mg-3 mg/3 ml Soln] Lacosamide [Vimpat] 50 mg PO BID 11/11/24 11/11/24 History Losartan [Cozaar] 50 mg PO DAILY 11/11/24 11/11/24 History Melatonin 10 mg PO HS 11/11/24 11/11/24 History Metoprolol Tartrate [Lopressor] 25 mg PO BID 11/11/24 11/11/24 History Pantoprazole [Protonix] 40 mg PO Q12H 11/11/24 11/11/24 History Triamcinolone Acetonide [Nasacort] 1 spray EA NOSTRIL BID 11/11/24 11/11/24 History amLODIPine [Norvasc] 10 mg PO DAILY 11/11/24 11/11/24 History polyethylene glycoL 3350 [Miralax] 17 gm PO DAILY PRN 11/11/24 11/11/24 History Allergies Allergy/AdvReac Type Severity Reaction Status Date / Time No Known Allergies Allergy Verified 11/11/24 21:33 Physical Exam Vitals: Vital Signs Temp Pulse Pulse Resp BP BP Pulse Ox 11/12/24 09:34 64 18 144/52 100 11/12/24 08:36 97.5 F L 72 18 158/80 96 11/12/24 08:23 98.2 F 52 L 18 129/64 97 11/12/24 08:00 67 17 11/12/24 03:26 98.5 F 57 L 14 126/55 94 L 11/12/24 02:00 56 L 18 130/94 98 11/11/24 23:00 55 L 18 129/56 96 11/11/24 21:48 55 L 18 130/61 99 11/11/24 19:49 85 18 124/56 99 11/11/24 17:21 98.9 F 64 16 126/74 97 11/11/24 16:14 98.2 F 56 L 16 123/74 98 Intake and Output 11/11/24 11/12/24 11/12/24 22:59 06:59 14:59 Other: Weight 54.431 kg 54.431 kg Results 11/11/24 16:05 11/11/24 16:05 Cardiac Enzymes 11/11/24 11/11/24 11/11/24 Range/Units 16:05 16:05 20:11 AST 33 (14-36) U/L Troponin I <0.012 <0.012 (0.000-0.034) ng/mL 11/11/24 Range/Units 22:58 AST (14-36) U/L Troponin I <0.012 (0.000-0.034) ng/mL Coagulation 11/11/24 Range/Units 18:47 PT 11.3 (10.0-12.5) sec APTT 21.2 L (22.0-30.0) sec Lipids 11/11/24 Range/Units 12:13 Triglycerides 162.00 H (0.00-149.00) mg/dL Cholesterol 183.00 (0.00-200.00) mg/dL HDL Cholesterol 84.00 H (40.00-60.00) mg/dL Cholesterol/HDL Ratio 2.18 Ratio CBC 11/11/24 Range/Units 16:05 WBC 13.95 H (4.50-10.00) 10*3/uL RBC 4.16 (4.10-5.20) 10*6/uL Hgb 12.4 (12.0-15.0) g/dL Hct 39.0 (37.2-46.3) % Plt Count 234 (140-440) 10*3/uL Comprehensive Metabolic Panel 11/11/24 Range/Units 16:05 Sodium 137 (137-145) mmol/L Potassium 4.5 (3.5-5.1) mmol/L Chloride 99 (98-107) mmol/L Carbon Dioxide 28 (22-30) mmol/L BUN 38 H (7-17) mg/dL Creatinine 1.28 H (0.52-1.04) mg/dL Glucose 181 H (74-99) mg/dL Calcium 9.7 (8.4-10.2) mg/dL AST 33 (14-36) U/L ALT 24 (4-34) U/L Alkaline Phosphatase 74 (38-126) U/L Total Protein 7.2 (6.3-8.2) g/dL Albumin 4.6 (3.5-5.0) g/dL Current Medications Generic Name Dose Route Start Last Admin Trade Name Freq PRN Reason Stop Dose Admin Amlodipine Besylate 5 mg 11/12/24 11:45 11/12/24 12:22 Amlodipine 5 Mg Tab PO 5 mg DAILY [facility] Administration Apixaban 2.5 mg 11/12/24 11:45 11/12/24 12:23 Apixaban 2.5 Mg Tablet PO 2.5 mg BID [facility] Administration Protocol Aspirin 325 mg 11/12/24 09:00 11/12/24 11:26 Aspirin 325 Mg Tab PO Not Given DAILY [facility] Atorvastatin Calcium 40 mg 11/12/24 21:00 Atorvastatin 40 Mg Tab PO HS [facility] Clopidogrel Bisulfate 75 mg 11/12/24 11:45 11/12/24 12:23 Clopidogrel 75 Mg Tab PO 75 mg DAILY [facility] Administration Diphenoxylate HCl/Atropine 1 each 11/12/24 04:20 Diphenox-Atrop 2.5-0.025 Mg 1 Each Tab PO Q6HR PRN Diarrhea Metoprolol Tartrate 25 mg 11/12/24 11:45 11/12/24 12:22 Metoprolol Tartrate 25 Mg Tab PO 25 mg BID [facility] Administration Nitroglycerin 0.4 mg 11/11/24 19:51 Nitroglycerin Sl Tabs 0.4 Mg Tab SUBLINGUAL Q5M PRN Chest Pain Intake and Output 11/11/24 11/12/24 11/12/24 22:59 06:59 14:59 Other: Weight 54.431 kg 54.431 kg Patient Weight 11/13/24 06:59 Weight 54.431 kg 11/11/24 16:05 11/11/24 16:05
[2024-11-12 14:29] LABS: Appearance,Urine Clear (Clear); Bacteria,Urine Moderate /hpf; Bilirubin,Urine Negative (Negative); Blood,Urine Negative (Negative); Color,Urine Yellow; Glucose,Urine (UA) Negative (Negative); Ketones,Urine Trace (Negative); Leukocyte Esterase,Urine Trace (Negative); Mucus,Urine Rare /hpf; Nitrite,Urine Negative (Negative); PH, Urine 5.5 (5.0-8.0); Protein,Urine Negative (Negative); RBC,Urine 1 /hpf (0-5); Squamous Epithelial Cell,Urine 1 /hpf (0-4); Urobilinogen,Urine <2.0 mg/dL (<2.0); WBC,Urine 2 /hpf (0-5)
[2024-11-12 16:56] LABS: Basophils # (A) 0.04 10*3/uL (0.00-0.10); Basophils % (A) 0.4 %; Eosinophils # (A) 0.03 10*3/uL (0.04-0.35); Eosinophils % (A) 0.3 %; HGB 10.9 g/dL (12.0-15.0); Lymphocytes # (A) 1.19 10*3/uL (0.90-5.00); Lymphocytes % (A) 13.3 %; MCH 29.8 pg (27.0-32.0); MCHC 31.1 g/dL (32.0-37.0); MCV 95.6 fL (80.0-97.0); Mean Platelet Volume 10.8 fL (9.5-12.2); Monocytes # (A) 0.78 10*3/uL (0.20-1.00); Monocytes % (A) 8.7 %; Neutrophils # (A) 6.79 10*3/uL (1.80-7.70); Neutrophils % (A) 75.8 %; Platelet Count 181 10*3/uL (140-440); RBC 3.66 10*6/uL (4.10-5.20); RDW 14.1 % (11.5-14.5); WBC 8.96 10*3/uL (4.50-10.00)
[2024-11-12 17:12] LABS: African American GFR (CKD) 81 (>60 ml/min/1.73 sqM); Anion Gap 7 mmol/L; Blood Urea Nitrogen 30 mg/dL (7-17); Calcium 8.1 mg/dL (8.4-10.2); Carbon Dioxide 28 mmol/L (22-30); Chloride 98 mmol/L (98-107); Glucose 101 mg/dL (74-99); Non-African American GFR(CKD) 71 (>60 ml/min/1.73 sqM); Potassium 3.8 mmol/L (3.5-5.1); Sodium 133 mmol/L (137-145)
--- NOTE | 2024-11-12 17:15 | P.HPIM ---
History of Present Illness H&P Date: 11/12/24 Chief Complaint: Chest discomfort/nausea/vomiting/diarrhea 84-year-old female, history of hypertension, hyperlipidemia, diabetes mellitus, atrial fibrillation, DVT, COPD, presents emergency department with concerns with chest discomfort and nausea vomiting. Patient did have some diarrhea earlier this morning. Patient has had some nausea and vomiting the last couple of ho urs. Patient does have history of A-fib and EMS reports patient had increased symptoms while she was in A-fib on the monitor. Patient still has some nausea. Patient has had some chest pain and associated dyspnea, mild at this time. Blood work completed in ED reveals a WBC of 13.9, hemoglobin of 12.1 and platelet count of 234, sodium 137, potassium 4.5, BUN/creatinine of 38/1.28 and blood glucose of 181, D-dimer of 0.68 EKG: Paced rhythm with a rate of 63. MS 230. Normal axis. Normal QRS. No acute ST change Chest x-ray is negative for any acute pulmonary process Review of Systems REVIEW OF SYSTEMS: CONSTITUTIONAL: No fever, no malaise, no fatigue. HEENT: No recent visual problems or hearing problems. Denied any sore throat. CARDIOVASCULAR: No chest pain, orthopnea, PND, no palpitations, no syncope. PULMONARY: No shortness of breath, no cough, no hemoptysis. GASTROINTESTINAL: No diarrhea, no nausea, no vomiting, no abdominal pain. NEUROLOGICAL: No headaches, no weakness, no numbness. HEMATOLOGICAL: Denies any bleeding or petechiae. GENITOURINARY: Denies any burning micturition, frequency, or urgency. MUSCULOSKELETAL/RHEUMATOLOGICAL: Denies any joint pain, swelling, or any muscle pain. ENDOCRINE: Denies any polyuria or polydipsia. The rest of the 14-point review of systems is negative. Past Medical History Past Medical History: Atrial Fibrillation, Cancer, Heart Failure, COPD, CVA/TIA, Diabetes Mellitus, Deep Vein Thrombosis (DVT), Fibromyalgia, GERD/Reflux, Hyper lipidemia, Hypertension, Osteoarthritis (OA), Pneumonia, Sleep Apnea/CPAP/BIPAP, Vascular Disorder Additional Past Medical History / Comment(s): back pain , lung cancer-radiation opnly, HOME 02 2 LITERS [place], BLOOD CLOT AFTER SX, CVA LT SIDE AFFECTED SINCE RESOLVED, HIATAL HERNIA. SHINGLES 30 YEARS AGO, DOES'NT USE CPAP MACHINE.in past for short period of time took oral meds for dm-then taken off meds-pt stated not considered diabetic now but occ will check bs., macular degeneration.past broken rt leg and lt wrist. Raynauds. Pt currently has 3 fractured ribs on the right that she has "had for years and will not heal". History of Any Multi-Drug Resistant Organisms: MRSA Date of last positivie culture/infection: 09/25/16 MDRO Source:: BRONCH WASH Past Surgical History: Cholecystectomy, Heart Catheterization With Stent, Orthopedic Surgery Additional Past Surgical History / Comment(s): rt leg repaired after break-has pins, lt wrist-plate and screws. lung bx, stents tung groins. Past Anesthesia/Blood Transfusion Reactions: Family History of Problems w/ Anesthesia Additional Past Anesthesia/Blood Transfusion Reaction / Comment(s): daughter has diff waking after aa Date of Last Stent Placement:: unk Type of Cardiac Device: Permanent Pacemaker Device Placement Date:: 09/25/20 Past Psychological History: Anxiety Additional Psychological History / Comment(s): Pt lives alone. Daughters live nearby. Uses home O2, 2L. Uses walker if she feels "wobbly" Smoking Status: Former smoker Past Alcohol Use History: Occasional Additional Past Alcohol Use History / Comment(s): started smopking at age 14(1955), quit 2011 Past Drug Use History: None Reported - Past Family History Father Family Medical History: Congestive Heart Failure (CHF), COPD Additional Family Medical History / Comment(s): emphysema Mother Family Medical History: Cancer Medications and Allergies Home Medications Medication Instructions Recorded Confirmed Type Fluticasone/Umeclidin/Vilanter 1 puff INHALATION RT-DAILY 04/19/20 11/11/24 History [Trelelionel Ellipta 100-62.5-25] predniSONE 5 mg PO DAILY 06/21/24 11/11/24 History Acetaminophen Tab [Tylenol] 650 mg PO Q6HR PRN tab 08/31/24 11/11/24 Rx Apixaban [Eliquis] 2.5 mg PO BID tab 08/31/24 11/11/24 Rx Ipratropium-Albuterol Nebulize 3 ml INHALATION RT-QID PRN each 08/31/24 11/11/24 Rx [Duoneb 0.5 mg-3 mg/3 ml Soln] ALPRAZolam [Xanax] 0.25 mg PO TID PRN 11/11/24 11/11/24 History ALPRAZolam [Xanax] 0.5 mg PO HS 11/11/24 11/11/24 History Albuterol Inhaler [Ventolin Hfa 2 puff INHALATION RT-Q4H PRN 11/11/24 11/11/24 History Inhaler] Atorvastatin Calcium [Lipitor] 40 mg PO HS 11/11/24 11/11/24 History Atorvastatin [Lipitor] 40 mg PO HS 11/11/24 11/11/24 History Clopidogrel [Plavix] 75 mg PO DAILY 11/11/24 11/11/24 History Docusate [Colace] 200 mg PO DAILY@0900 11/11/24 11/11/24 History Ipratropium-Albuterol Nebulize 3 ml INHALATION RT-TID 11/11/24 11/11/24 History [Duoneb 0.5 mg-3 mg/3 ml Soln] Lacosamide [Vimpat] 50 mg PO BID 11/11/24 11/11/24 History Losartan [Cozaar] 50 mg PO DAILY 11/11/24 11/11/24 History Melatonin 10 mg PO HS 11/11/24 11/11/24 History Metoprolol Tartrate [Lopressor] 25 mg PO BID 11/11/24 11/11/24 History Pantoprazole [Protonix] 40 mg PO Q12H 11/11/24 11/11/24 History Triamcinolone Acetonide [Nasacort] 1 spray EA NOSTRIL BID 11/11/24 11/11/24 History amLODIPine [Norvasc] 10 mg PO DAILY 11/11/24 11/11/24 History polyethylene glycoL 3350 [Miralax] 17 gm PO DAILY PRN 11/11/24 11/11/24 History Allergies Allergy/AdvReac Type Severity Reaction Status Date / Time No Known Allergies Allergy Verified 11/11/24 21:33 Physical Exam Vitals: Vital Signs Temp Pulse Pulse Resp BP BP Pulse Ox 11/12/24 09:34 64 18 144/52 100 11/12/24 08:36 97.5 F L 72 18 158/80 96 11/12/24 08:23 98.2 F 52 L 18 129/64 97 11/12/24 08:00 67 17 11/12/24 03:26 98.5 F 57 L 14 126/55 94 L 11/12/24 02:00 56 L 18 130/94 98 11/11/24 23:00 55 L 18 129/56 96 11/11/24 21:48 55 L 18 130/61 99 11/11/24 19:49 85 18 124/56 99 11/11/24 17:21 98.9 F 64 16 126/74 97 11/11/24 16:14 98.2 F 56 L 16 123/74 98 Intake and Output 11/11/24 11/12/24 11/12/24 22:59 06:59 14:59 Other: Weight 54.431 kg 54.431 kg General appearance: alert, in no apparent distress Head exam: Present: normocephalic Eye exam: Present: normal appearance Neck exam: Present: normal inspection Respiratory exam: Present: normal lung sounds bilaterally Cardiovascular Exam: Present: regular rate, normal rhythm, normal heart sounds Peripheral pulses: 2+: Radial (R), Radial (L), Posterior Tibialis (R), Posterior Tibialis (L) GI/Abdominal exam: Present: soft. Absent: distended, tenderness Extremities exam: Present: normal inspection. Absent: pedal edema, calf tenderness Neurological exam: Present: alert Psychiatric exam: Present: normal affect, normal mood Skin exam: Present: normal color Results CBC & Chem 7: 11/12/24 16:33 11/11/24 16:05 Labs: Abnormal Lab Results - Last 24 Hours (Table) 11/11/24 11/11/24 11/11/24 Range/Units 12:13 16:05 16:05 WBC 13.95 H (4.50-10.00) 10*3/uL MCHC 31.8 L (32.0-37.0) g/dL Immature Gran # 0.13 H (0.00-0.04) 10*3/uL Neutrophils # 11.85 H (1.80-7.70) 10*3/uL APTT (22.0-30.0) sec D-Dimer (<0.60) mg/L FEU BUN 38 H (7-17) mg/dL Creatinine 1.28 H (0.52-1.04) mg/dL Glucose 181 H (74-99) mg/dL Triglycerides 162.00 H (0.00-149.00) mg/dL HDL Cholesterol 84.00 H (40.00-60.00) mg/dL 11/11/24 Range/Units 18:47 WBC (4.50-10.00) 10*3/uL MCHC (32.0-37.0) g/dL Immature Gran # (0.00-0.04) 10*3/uL Neutrophils # (1.80-7.70) 10*3/uL APTT 21.2 L (22.0-30.0) sec D-Dimer 0.68 H (<0.60) mg/L FEU BUN (7-17) mg/dL Creatinine (0.52-1.04) mg/dL Glucose (74-99) mg/dL Triglycerides (0.00-149.00) mg/dL HDL Cholesterol (40.00-60.00) mg/dL Thrombosis Risk Factor Assmnt - Choose All That Apply Any of the Below Risk Factors Present?: Yes Each Risk Factor Represents 3 Points: Age 75 years or older, History of DVT/PE Thrombosis Risk Factor Assessment Total Risk Factor Score: 6 Thrombosis Risk Factor Assessment Level: High Risk Assessment and Plan Assessment: 1. Chest pain rule out acute coronary syndrome - Patient does have history of CAD with history of PCI to LCx - Patient remains on aspirin, Plavix, Eliquis, metoprolol and atorvastatin - Consult cardiology 2. Nausea/vomiting/diarrhea/abdominal pain; likely acute gastroenteritis; possibly viral; patient is placed on Protonix 40 mg twice daily - Ordered C. difficile; symptomatic treatment for nausea vomiting and diarrhea 3. Leukocytosis; reactive versus infection induced; we will monitor CBC; order procalcitonin - Chest x-ray and UA are unremarkable 4. Acute renal injury; IV fluids in form of normal saline at a rate of 100 cc an hour; monitor strict JESICA's, daily weights, renal function electrolytes; avoid nephrotoxins and hypotension 5. Hypertension; metoprolol 25 mg twice daily; Norvasc 5 mg daily 6. Hyperlipidemia; Lipitor 40 mg p.o. nightly 7. Diabetes mellitus 8. COPD; not in exacerbation; continue home inhaler therapy 9. CAD/CHF; patient is currently on aspirin, Eliquis, Plavix, Lipitor and metoprolol; patient has history of cardiac catheterization and is status post PCI to LCx - Cardiology consulted for further recommendations 10. Seizure disorder; patient takes Vimpat 50 mg twice daily 12. Paroxysmal atrial fibrillation; patient remains rate controlled on metoprolol; continue Eliquis for anticoagulation 13. Fall with abdominal and flank pain; will order CT of the abdomen and pelvis DVT prophylaxis; SCD/Eliquis CODE STATUS; full code
[2024-11-12] MEDS: traMADol 50 MG TAB PO SCH (17:39)
[2024-11-12] MEDS: PANTOPRAZOLE 40 MG TABLET PO SCH (17:40)
[2024-11-12 17:49] LABS: Glucose,Whole Blood 101 mg/dL (70-110)
[2024-11-12] MEDS: SYMBICORT 160-4.5 MCG INHALER INHALATION SCH (18:22)
--- NOTE | 2024-11-12 19:20 | CT ---
EXAMINATION TYPE: CT abdomen pelvis wo con DATE OF EXAM: 11/12/2024 4:22 PM COMPARISON: CT study of 08/25/2024. CLINICAL INDICATION: Female, 84 years old with history of fall/ abdominal and flank pain; Flank pain. TECHNIQUE: Axial CT abdomen pelvis wo con;Sagittal and coronal reformats were created on a separate workstation. Oral contrast used: without Oral Contrast (none if empty) CT DLP: 226.2 mGycm, Automated exposure control for dose reduction was used. FINDINGS: LOWER CHEST: Questionably visualized emphysematous changes. No acute pathology in the partially visua lized lower lungs. ABDOMEN LIVER: Unremarkable GALLBLADDER AND BILE DUCTS: The gallbladder is surgically absent. PANCREAS: Unremarkable. SPLEEN: Unremarkable. ADRENAL GLANDS: Unremarkable. KIDNEYS AND URETERS: No evidence of hydronephrosis or renal calculus. The ureters are unremarkable. Renal vascular calcifications. Simple cyst in the left kidney. PELVIS BLADDER: No evidence for wall thickening or mass given limitations of exam. REPRODUCTIVE: Unremarkable. ABDOMEN & PELVIS STOMACH AND BOWEL: Stomach and duodenum are unremarkable. Scattered diverticula are noted throughout the colon. No evidence of bowel obstruction. PERITONEUM/RETROPERITONEUM: No evidence of pneumoperitoneum or free fluid. VASCULATURE: No evidence of aortic aneurysm. Extensive calcified atheromatous disease of the abdomina l aorta and its branches. MUSCULOSKELETAL: No acute osseous abnormalities. Osseous structures demineralized. Multilevel thoraci c and lumbar spine degenerative changes. Grade 1 anterolisthesis of L4 on L5. LYMPH NODES: No gross evidence for lymphadenopathy. SOFT TISSUE/ABDOMINAL WALL: Unremarkable IMPRESSION: No acute abnormality in the abdomen/pelvis. Specifically, no evidence of acute obstructive uropathy. [facility], , 11/12/2024 7:17 PM
[2024-11-12 20:28] LABS: Glucose,Whole Blood 110 mg/dL (70-110)
[2024-11-12] MEDS: ALPRAZolam 0.5 MG TAB PO SCH (21:33)
[2024-11-12] MEDS: LACOSAMIDE 50 MG TABLET PO SCH (21:33)
[2024-11-12] MEDS: ATORVASTATIN 40 MG TAB PO SCH ×2 (21:33)
[2024-11-13 05:36] LABS: Glucose,Whole Blood 90 mg/dL (70-110)
[2024-11-13] MEDS: TIOTROPIUM 2.5 MCG INHALER INHALATION SCH (08:54)
[2024-11-13 08:56] LABS: Potassium 3.9 mmol/L (3.5-5.1)
[2024-11-13 08:57] LABS: African American GFR (CKD) >90 (>60 ml/min/1.73 sqM); Anion Gap 8 mmol/L; Blood Urea Nitrogen 22 mg/dL (7-17); Calcium 7.8 mg/dL (8.4-10.2); Carbon Dioxide 27 mmol/L (22-30); Chloride 100 mmol/L (98-107); Glucose 132 mg/dL (74-99); Non-African American GFR(CKD) 81 (>60 ml/min/1.73 sqM); Sodium 135 mmol/L (137-145)
[2024-11-13] MEDS ORDERED: CLOPIDOGREL 75 MG TAB PO SCH (09:00)
[2024-11-13] MEDS: DOCUSATE 100 MG CAP PO SCH (09:07)
[2024-11-13] MEDS: DIPHENOX-ATROP 2.5-0.025 MG 1 EACH TAB PO PRN (12:01)
[2024-11-13 12:53] LABS: Glucose,Whole Blood 133 mg/dL (70-110)
[2024-11-13] MEDS: ACETAMINOPHEN TAB 325 MG TAB PO PRN (15:42)
[2024-11-13 17:46] LABS: Glucose,Whole Blood 139 mg/dL (70-110)
--- NOTE | 2024-11-13 18:16 | P.PN ---
Subjective Progress Note Date: 11/13/24 84-year-old female, history of hypertension, hyperlipidemia, diabetes mellitus, atrial fibrillation, DVT, COPD, presents emergency department with concerns with chest discomfort and nausea vomiting. Patient did have some diarrhea earlier this morning. Patient has had some nausea and vomiting the last couple of hours. Patient does have history of A-fib and EMS reports patient had increased symptoms while she was in A-fib on the monitor. Patient still has some nausea. Patient has had some chest pain and associated dyspnea, mild at this time. Blood work completed in ED reveals a WBC of 13.9, hemoglobin of 12.1 and platelet count of 234, sodium 137, potassium 4.5, BUN/creatinine of 38/1.28 and blood glucose of 181, D-dimer of 0.68 EKG: Paced rhythm with a rate of 63. [place] 230. Normal axis. Normal QRS. No acute ST change Chest x-ray is negative for any acute pulmonary process - Patient has been cleared for discharge by cardiology - Continues to report episodes of diarrhea; CT of the abdomen and pelvis has been unremarkable; diarrhea likely gastroenteritis could be a viral illness - Patient reports excessive weakness and inability to go home; discharge orders are placed; patient lives alone and is not able to care for self - Will hold the statin consult PT/OT Objective - Vital Signs Vital signs: Vital Signs Temp 97.9 F 11/13/24 17:58 Pulse 68 11/13/24 14:49 Resp 18 11/13/24 14:49 BP 132/60 11/13/24 14:49 Pulse Ox 93 L 11/13/24 14:49 FiO2 Intake & Output 11/12/24 11/13/24 11/13/24 18:59 06:59 18:59 Weight 54.431 kg 52.5 kg Other: Voiding Method Bedside Commode # Voids 1 2 5 # Bowel Movements 2 3 - Exam General appearance: alert, in no apparent distress Head exam: Present: normocephalic Eye exam: Present: normal appearance Neck exam: Present: normal inspection Respiratory exam: Present: normal lung sounds bilaterally Cardiovascular Exam: Present: regular rate, normal rhythm, normal heart sounds Peripheral pulses: 2+: Radial (R), Radial (L), Posterior Tibialis (R), Posterior Tibialis (L) GI/Abdominal exam: Present: soft. Absent: distended, tenderness Extremities exam: Present: normal inspection. Absent: pedal edema, calf tenderness Neurological exam: Present: alert Psychiatric exam: Present: normal affect, normal mood Skin exam: Present: normal color - Labs CBC & Chem 7: 11/12/24 16:33 11/13/24 08:00 Labs: Abnormal Lab Results - Last 24 Hours (Table) 11/13/24 11/13/24 11/13/24 Range/Units 08:00 12:52 17:46 Sodium 135 L (137-145) mmol/L BUN 22 H (7-17) mg/dL Glucose 132 H (74-99) mg/dL POC Glucose (mg/dL) 133 H 139 H (70-110) mg/dL Calcium 7.8 L (8.4-10.2) mg/dL Assessment and Plan Assessment: 1. Chest pain rule out acute coronary syndrome - Patient does have history of CAD with history of PCI to LCx - Patient remains on aspirin, Plavix, Eliquis, metoprolol and atorvastatin - Consult cardiology 2. Nausea/vomiting/diarrhea/abdominal pain; likely acute gastroenteritis; possibly viral; patient is placed on Protonix 40 mg twice daily - Ordered C. difficile; symptomatic treatment for nausea vomiting and diarrhea 3. Leukocytosis; reactive versus infection induced; we will monitor CBC; order procalcitonin - Chest x-ray and UA are unremarkable 4. Acute renal injury; IV fluids in form of normal saline at a rate of 100 cc an hour; monitor strict JESICA's, daily weights, renal function electrolytes; avoid nephrotoxins and hypotension 5. Hypertension; metoprolol 25 mg twice daily; Norvasc 5 mg daily 6. Hyperlipidemia; Lipitor 40 mg p.o. nightly 7. Diabetes mellitus 8. COPD; not in exacerbation; continue home inhaler therapy 9. CAD/CHF; patient is currently on aspirin, Eliquis, Plavix, Lipitor and metoprolol; patient has history of cardiac catheterization and is status post PCI to LCx - Cardiology consulted for further recommendations 10. Seizure disorder; patient takes Vimpat 50 mg twice daily 12. Paroxysmal atrial fibrillation; patient remains rate controlled on metoprolol; continue Eliquis for anticoagulation 13. Fall with abdominal and flank pain; will order CT of the abdomen and pelvis DVT prophylaxis; SCD/Eliquis CODE STATUS; full code
[2024-11-13 20:32] LABS: Glucose,Whole Blood 156 mg/dL (70-110)
[2024-11-14 06:01] LABS: Glucose,Whole Blood 111 mg/dL (70-110)
[2024-11-14 10:17] LABS: Basophils # (A) 0.02 X 10*3/uL (0.00-0.10); Basophils % (A) 0.3 %; Eosinophils # (A) 0.01 X 10*3/uL (0.04-0.35); Eosinophils % (A) 0.2 %; HCT 33.8 % (37.2-46.3); HGB 10.7 g/dL (12.0-15.0); Lymphocytes # (A) 1.33 X 10*3/uL (0.90-5.00); Lymphocytes % (A) 21.1 %; MCH 29.4 pg (27.0-32.0); MCHC 31.7 g/dL (32.0-37.0); MCV 92.9 FL (80.0-97.0); Mean Platelet Volume 11.4 FL (9.5-12.2); Monocytes # (A) 0.52 X 10*3/uL (0.20-1.00); Monocytes % (A) 8.2 %; NRBC Per 100 WBC 0 X 10*3/uL (0.00-0.01); Neutrophils # (A) 4.35 X 10*3/uL (1.80-7.70); Neutrophils % (A) 68.9 %; Platelet Count 141 X 10*3/uL (140-440); RBC 3.64 X 10*6/uL (4.10-5.20); RDW 14.3 % (11.5-14.5); WBC 6.31 X 10*3/uL (4.50-10.00)
[2024-11-14] MEDS: LOSARTAN 25 MG TAB PO SCH (10:18)
[2024-11-14 10:30] LABS: ALT 27 U/L (8-44); AST 42 U/L (13-35); Albumin 3.5 g/dL (3.8-4.9); Albumin/Globulin Ratio 1.84 Ratio (1.60-3.17); Alkaline Phosphatase 55 U/L (41-126); BUN/Creat Ratio 22.12 Ratio (12.00-20.00); Blood Urea Nitrogen 17.7 mg/dL (9.0-27.0); Calcium 7.8 mg/dL (8.7-10.3); Carbon Dioxide 24.1 mmol/L (21.6-31.8); Chloride 97 mmol/L (96-109); Globulin 1.9 g/dL (1.6-3.3); Glucose 119 mg/dL (70-110); Sodium 132 mmol/L (135-145); Total Bilirubin 0.4 mg/dL (0.3-1.2); Total Protein 5.4 g/dL (6.2-8.2)
--- NOTE | 2024-11-14 10:48 | P.PN ---
Subjective HISTORY OF PRESENTING ILLNESS: 84-year-old presented to the hospital because of feeling weak. Poor oral intake because of nausea vomiting and diarrhea which started 1 day prior to coming to the hospital. She is feeling lightheaded and dizzy and reported to have some substernal chest heaviness symptoms for which she presented to the ER. He was last hospitalized 08/23/2024 for hypertensive urgency and possible TIA. He does have a history of supine hypertension with orthostatic instability from tilt table test from 05/2024. Cardiology was consulted for nonspecific complaints of substernal chest pressure. Admission Vitals: BP 158 over 80 mmHg, heart rate 52 bpm Admission Labs: Hb 12, BUN 38, creatinine 1.28. Baseline creatinine around 0.7. Likely dehydration from diarrhea and poor oral intake from nausea. TG 132, LDL 66, troponin x 3 negative, NT-proBNP 557, Admission EKG: Atrial paced V sensed rhythm Home cardiac medications Plavix 75, Lipitor 40, metoprolol 25 twice daily, losartan 50 daily, amlodipine 10, Eliquis 2.5 twice daily 11/14/2024 Patient seen and examined resting comfortably laying flat in bed in no acute distress. Blood pressure 135/67 heart rate 62 afebrile maintaining oxygen saturation on nasal cannula. Laboratory data reviewed, hemoglobin 10.7, platelets 141, sodium 132, potassium 4, creatinine 0.8. PHYSICAL EXAMINATION: Neck: Brisk carotid upstroke, no jugular venous distention. Lungs: Clear to auscultation. Heart: Regular rate and rhythm, S1-S2, , no murmur or rub. Abdomen: Soft nontender, positive bowel sounds. Extremities: No edema, intact distal pulses. Neuro: Alert, oritented, no focal deficits. Detailed neuro exam was not performed. ASSESSMENT: # Nausea and vomiting diarrhea # Generalized weakness # VERNELL from poor oral intake from nausea and dehydration from diarrhea # History of stable CAD status post PCI to LCx in past # Paroxysmal atrial fibrillation # Sick sinus syndrome status post PPM # History of supine hypertension with orthostatic instability noticed on tilt table test from 05/2024 # Possible TIA 08/2024. Prior history of CVA/TIA # Moderate left carotid stenosis 60% # History of lung cancer with possible relapse # Advanced COPD # Essential hypertension PLAN: Resume losartan at 12.5 mg daily. Overall stable from a cardiac perspective. Follow-up with Dr. Lance in 1 to 2 weeks. Nurse Practitioner note has been reviewed, I agree with a documented findings and plan of care. Patient was seen and examined. Objective - Vital Signs Vital signs: Vital Signs Temp 98.8 F 11/14/24 05:42 Pulse 62 11/14/24 05:42 Resp 19 11/14/24 05:42 BP 135/67 11/14/24 05:42 Pulse Ox 94 L 11/14/24 05:42 FiO2 Intake & Output 11/13/24 11/14/24 11/14/24 18:59 06:59 18:59 Intake Total 50 Balance 50 Intake: Oral 50 Other: Voiding Method Bedside Commode Bedside Commode # Voids 5 0 # Bowel Movements 3 - Labs CBC & Chem 7: 11/14/24 05:34 11/14/24 05:34 Labs: Abnormal Lab Results - Last 24 Hours (Table) 11/13/24 11/13/24 11/13/24 Range/Units 12:52 17:46 20:31 RBC (4.10-5.20) X 10*6/uL Hgb (12.0-15.0) g/dL Hct (37.2-46.3) % MCHC (32.0-37.0) g/dL Immature Gran # (0.00-0.04) X 10*3/uL Eosinophils # (0.04-0.35) X 10*3/uL Sodium (135-145) mmol/L BUN/Creatinine Ratio (12.00-20.00) Ratio Glucose (70-110) mg/dL POC Glucose (mg/dL) 133 H 139 H 156 H (70-110) mg/dL Calcium (8.7-10.3) mg/dL AST (13-35) U/L C-Reactive Protein (0.00-0.80) mg/dL Total Protein (6.2-8.2) g/dL Albumin (3.8-4.9) g/dL 11/14/24 11/14/24 11/14/24 Range/Units 05:34 05:34 05:59 RBC 3.64 L (4.10-5.20) X 10*6/uL Hgb 10.7 L (12.0-15.0) g/dL Hct 33.8 L (37.2-46.3) % MCHC 31.7 L (32.0-37.0) g/dL Immature Gran # 0.08 H (0.00-0.04) X 10*3/uL Eosinophils # 0.01 L (0.04-0.35) X 10*3/uL Sodium 132 L (135-145) mmol/L BUN/Creatinine Ratio 22.12 H (12.00-20.00) Ratio Glucose 119 H (70-110) mg/dL POC Glucose (mg/dL) 111 H (70-110) mg/dL Calcium 7.8 L (8.7-10.3) mg/dL AST 42 H (13-35) U/L C-Reactive Protein 4.80 H (0.00-0.80) mg/dL Total Protein 5.4 L (6.2-8.2) g/dL Albumin 3.5 L (3.8-4.9) g/dL
[2024-11-14 11:35] LABS: Appearance,Urine Clear (Clear); Bilirubin,Urine Negative (Negative); Blood,Urine Negative (Negative); Color,Urine Yellow; Glucose,Urine (UA) Negative (Negative); Ketones,Urine Negative (Negative); Leukocyte Esterase,Urine Negative (Negative); Nitrite,Urine Negative (Negative); PH, Urine 5.5 (5.0-8.0); Protein,Urine Negative (Negative); Specific Gravity,Urine 1.017 (1.001-1.035); Urobilinogen,Urine <2.0 mg/dL (<2.0)
[2024-11-14 12:45] LABS: Glucose,Whole Blood 139 mg/dL (70-110)
[2024-11-14] MEDS: metroNIDAZOLE-NS PMX 500 MG in SALINE 1 100ML.BAG IVPB SCH (17:07)
[2024-11-14 17:36] LABS: Glucose,Whole Blood 134 mg/dL (70-110)
[2024-11-14] MEDS: ONDANSETRON 4 MG/2 ML VIAL IVP PRN (22:49)
--- NOTE | 2024-11-14 22:50 | P.CONS ---
History of Present Illness - Reason for Consult Consult date: 11/14/24 Fever Requesting physician: Adrianna Arguelles - Chief Complaint Diarrhea nausea and vomiting x 3 days - History of Present Illness Patient is a 84-year-old female with a past medical history significant for Atrial Fibrillation, Cancer, Heart Failure, COPD, CVA/TIA, Diabetes Mellitus, Deep Vein Thrombosis (DVT), Fibromyalgia, GERD/Reflux, Hyperlipidemia, Hypertension, Osteoarthritis (OA), Pneumonia, Sleep Apnea/CPAP/BIPAP, Vascular Disorder presenting to the hospital 3 days ago for evaluation of chest discomfort nausea and vomiting patient symptoms started with diarrhea morning of presentation the hospital subsequently started having nausea and vomiting as well has been complaining of some lower abdominal cramping pain moderate intensity without radiation to hemoglobin of multiple episode loose stool denies any blood or mucus in the stool and denies high-grade fever on presentation to the hospital patient was afebrile she did spike a fever of 101.3 F yesterday afternoon and the patient has been afebrile this morning patient was not tachycardic hypotensive mildly hypoxic currently on 2 L nasal, oxygen patient did have white count of 13.95 on admission that is down to 6.31 today BUN and creatinine was mildly elevated subsequent normalized liver enzymes are normal amylase lipase has been normal she did have 2 UA that has been negative stool for C. difficile is negative stool cultures are pending patient did have abdominal pelvis CT without contrast lower lung with emphysematous changes and no acute pathology and did not show any acute abnormalities abdominal pelvis patient will be started on ceftriaxone and Flagyl today infectious disease has been consulted regarding the fever Review of Systems Positive point and negatives has been mentioned in the HPI, complete review of systems was performed and all other systems are negative Past Medical History Past Medical History: Atrial Fibrillation, Cancer, Heart Failure, COPD, CVA/TIA, Diabetes Mellitus, Deep Vein Thrombosis (DVT), Fibromyalgia, GERD/Reflux, Hyperlipidemia, Hypertension, Osteoarthritis (OA), Pneumonia, Sleep Apnea/CPAP/BIPAP, Vascular Disorder Additional Past Medical History / Comment(s): back pain , lung cancer-radiation opnly, HOME 02 2 LITERS N/C, BLOOD CLOT AFTER SX, CVA LT SIDE AFFECTED SINCE RESOLVED, HIATAL HERNIA. SHINGLES 30 YEARS AGO, DOES'NT USE CPAP MACHINE.in past for short period of time took oral meds for dm-then taken off meds-pt stated not considered diabetic now but occ will check bs., macular degeneration.past broken rt leg and lt wrist. Raynauds. Pt currently has 3 fractured ribs on the right that she has "had for years and will not heal". History of Any Multi-Drug Resistant Organisms: MRSA Year Discovered:: 09/25/16 MDRO Source:: BRONCH WASH Past Surgical History: Cholecystectomy, Heart Catheterization With Stent, Orthopedic Surgery Additional Past Surgical History / Comment(s): rt leg repaired after break-has pins, lt wrist-plate and screws. lung bx, stents tung groins. Past Anesthesia/Blood Transfusion Reactions: Family History of Problems w/ Anesthesia Additional Past Anesthesia/Blood Transfusion Reaction / Comm: daughter has diff waking after aa Date of Last Stent Placement:: unk Type of Cardiac Device: Permanent Pacemaker Device Placement Date:: 09/25/20 Past Psychological History: Anxiety Additional Psychological History / Comment(s): Pt lives alone. Daughters live nearby. Uses home O2, 2L. Uses walker if she feels "wobbly" Smoking Status: Former smoker Past Alcohol Use History: Occasional Additional Past Alcohol Use History / Comment(s): started smopking at age 14(1956), quit 2011 Past Drug Use History: None Reported - Past Family History Father Family Medical History: Congestive Heart Failure (CHF), COPD Additional Family Medical History / Comment(s): emphysema Mother Family Medical History: Cancer Medications and Allergies Home Medications Medication Instructions Recorded Confirmed Type Fluticasone/Umeclidin/Vilanter 1 puff INHALATION RT-DAILY 04/19/20 11/11/24 History [Brinda Agarwal 100-62.5-25] predniSONE 5 mg PO DAILY 06/21/24 11/11/24 History Acetaminophen Tab [Tylenol] 650 mg PO Q6HR PRN tab 08/31/24 11/11/24 Rx Apixaban [Eliquis] 2.5 mg PO BID tab 08/31/24 11/11/24 Rx Ipratropium-Albuterol Nebulize 3 ml INHALATION RT-QID PRN each 08/31/24 11/11/24 Rx [Duoneb 0.5 mg-3 mg/3 ml Soln] ALPRAZolam [Xanax] 0.25 mg PO TID PRN 11/11/24 11/11/24 History ALPRAZolam [Xanax] 0.5 mg PO HS 11/11/24 11/11/24 History Albuterol Inhaler [Ventolin Hfa 2 puff INHALATION RT-Q4H PRN 11/11/24 11/11/24 History Inhaler] Atorvastatin Calcium [Lipitor] 40 mg PO HS 11/11/24 11/11/24 History Atorvastatin [Lipitor] 40 mg PO HS 11/11/24 11/11/24 History Clopidogrel [Plavix] 75 mg PO DAILY 11/11/24 11/11/24 History Docusate [Colace] 200 mg PO DAILY@0900 11/11/24 11/11/24 History Ipratropium-Albuterol Nebulize 3 ml INHALATION RT-TID 11/11/24 11/11/24 History [Duoneb 0.5 mg-3 mg/3 ml Soln] Lacosamide [Vimpat] 50 mg PO BID 11/11/24 11/11/24 History Losartan [Cozaar] 50 mg PO DAILY 11/11/24 11/11/24 History Melatonin 10 mg PO HS 11/11/24 11/11/24 History Metoprolol Tartrate [Lopressor] 25 mg PO BID 11/11/24 11/11/24 History Pantoprazole [Protonix] 40 mg PO Q12H 11/11/24 11/11/24 History Triamcinolone Acetonide [Nasacort] 1 spray EA NOSTRIL BID 11/11/24 11/11/24 History polyethylene glycoL 3350 [Miralax] 17 gm PO DAILY PRN 11/11/24 11/11/24 History Loperamide [Imodium] 2 mg PO QID PRN 10 Days #30 capsule 11/13/24 Rx amLODIPine [Norvasc] 5 mg PO DAILY 30 Days #30 tab 11/13/24 Rx Allergies Allergy/AdvReac Type Severity Reaction Status Date / Time No Known Allergies Allergy Verified 11/11/24 21:33 Physical Exam Vitals: Vital Signs Temp Pulse Pulse Resp BP BP BP 11/14/24 14:20 98.2 F 61 18 144/71 11/14/24 05:42 98.8 F 62 19 135/67 11/14/24 02:05 98.5 F 63 18 147/72 11/13/24 20:00 99.3 F 68 18 127/69 11/13/24 17:58 97.9 F Pulse Ox 11/14/24 14:20 98 11/14/24 05:42 94 L 11/14/24 02:05 99 11/13/24 20:00 94 L 11/13/24 17:58 Intake and Output 11/14/24 11/14/24 11/14/24 06:59 14:59 22:59 Intake Total 272 Balance 272 Intake: Oral 272 Other: Voiding Method Bedside Commode # Voids 0 2 2 # Bowel Movements 0 0 GENERAL DESCRIPTION: Elderly female lying in bed, no distress. No tachypnea or accessory muscle of respiration use. HEENT: Shows Pallor , no scleral icterus. Oral mucous membrane is dry. NECK: Trachea central, no thyromegaly. LUNGS: Unlabored breathing. Clear to auscultation anteriorly. HEART: S1, S2, regular rate and rhythm. No loud murmur ABDOMEN: Soft, no tenderness , EXTREMITIES: No edema of feet. SKIN: No rash, no masses palpable. NEUROLOGICAL: The patient is awake, alert, oriented x3, mood and affect normal. Results CBC & Chem 7: 11/14/24 05:34 11/14/24 05:34 Labs: Abnormal Lab Results - Last 24 Hours (Table) 11/13/24 11/13/24 11/14/24 Range/Units 17:46 20:31 05:34 RBC 3.64 L (4.10-5.20) X 10*6/uL Hgb 10.7 L (12.0-15.0) g/dL Hct 33.8 L (37.2-46.3) % MCHC 31.7 L (32.0-37.0) g/dL Immature Gran # 0.08 H (0.00-0.04) X 10*3/uL Eosinophils # 0.01 L (0.04-0.35) X 10*3/uL Sodium (135-145) mmol/L BUN/Creatinine Ratio (12.00-20.00) Ratio Glucose (70-110) mg/dL POC Glucose (mg/dL) 139 H 156 H (70-110) mg/dL Calcium (8.7-10.3) mg/dL AST (13-35) U/L C-Reactive Protein (0.00-0.80) mg/dL Total Protein (6.2-8.2) g/dL Albumin (3.8-4.9) g/dL 11/14/24 11/14/24 11/14/24 Range/Units 05:34 05:59 12:44 RBC (4.10-5.20) X 10*6/uL Hgb (12.0-15.0) g/dL Hct (37.2-46.3) % MCHC (32.0-37.0) g/dL Immature Gran # (0.00-0.04) X 10*3/uL Eosinophils # (0.04-0.35) X 10*3/uL Sodium 132 L (135-145) mmol/L BUN/Creatinine Ratio 22.12 H (12.00-20.00) Ratio Glucose 119 H (70-110) mg/dL POC Glucose (mg/dL) 111 H 139 H (70-110) mg/dL Calcium 7.8 L (8.7-10.3) mg/dL AST 42 H (13-35) U/L C-Reactive Protein 4.80 H (0.00-0.80) mg/dL Total Protein 5.4 L (6.2-8.2) g/dL Albumin 3.5 L (3.8-4.9) g/dL Assessment and Plan (1) Fever Current Visit: Yes Status: Acute Code(s): R50.9 - FEVER, UNSPECIFIED SNOMED Code(s): 171429619 (2) Gastroenteritis Current Visit: Yes Status: Acute Code(s): K52.9 - NONINFECTIVE GASTROENTER ITIS AND COLITIS, UNSPECIFIED SNOMED Code(s): 18252633 Plan: 1patient with a fever and this patient presented to hospital with acute diarrhea nausea vomiting and some chest pain likely dealing with gastroenteritis the question of viral source or bacterial etiology there was a high clinic suspicious for C. difficile colitis as the patient mentions she has been exposed to antibiotic however stool for C. difficile is negative, CT abdominal pelvis unfortunately done without any contrast that decrease the sensitivity of this testing however no evidence of colitis reported on that CT. 2we will wait for the stool culture to be finalized 3-will empirically treat the patient with Rocephin and Flagyl 4-discontinue Lomotil will need Questran as needed for symptomatic relief of diarrhea if persist Question concern answered We will follow on clinical condition and cultures to further adjust medication if needed Thank you for this consultation we will follow the patient along with you Dictation was produced using [employer] dictation software. please excuse any grammatical, word or spelling errors. Time with Patient: Greater than 30
--- NOTE | 2024-11-14 23:56 | P.PN ---
Subjective 84-year-old female, history of hypertension, hyperlipidemia, diabetes mellitus, atrial fibrillation, DVT, COPD, presents emergency department with concerns with chest discomfort and nausea vomiting. Patient did have some diarrhea earlier this morning. Patient has had some nausea and vomiting the last couple of hours. Patient does have history of A-fib and EMS reports patient had increased symptoms while she was in A-fib on the monitor. Patient still has some nausea. Patient has had some chest pain and associated dyspnea, mild at this time. Blood work completed in ED reveals a WBC of 13.9, hemoglobin of 12.1 and platelet count of 234, sodium 137, potassium 4.5, BUN/creatinine of 38/1.28 and blood glucose of 181, D-dimer of 0.68 EKG: Paced rhythm with a rate of 63. [place] 230. Normal axis. Normal QRS. No acute ST change Chest x-ray is negative for any acute pulmonary process - Patient has been cleared for discharge by cardiology - Continues to report episodes of diarrhea; CT of the abdomen and pelvis has been unremarkable; diarrhea likely gastroenteritis could be a viral illness - Patient reports excessive weakness and inability to go home; discharge orders are placed; patient lives alone and is not able to care for self - Will hold the statin consult PT/OT 11/14 Patient presents with chest pain, evaluated by cardiology and cleared for discharge Also patient on Eliquis renal dose 2.5 and aspirin and Plavix. Also patient has symptoms of nausea vomiting and diarrhea suspicious for acute gastroenteritis. Today she spiked a fever of 101.3 Acute gastroenteritis of infectious history with suspected viral versus bacterial. Patient started empirically on ceftriaxone and Flagyl. Stool culture sent. C. difficile negative. Infectious disease consult obtained. Patient placed on Questran as needed. Objective - Vital Signs Vital signs: Vital Signs Temp 98.2 F 11/14/24 14:20 Pulse 61 11/14/24 14:20 Resp 18 11/14/24 14:20 BP 144/71 11/14/24 14:20 Pulse Ox 98 11/14/24 14:20 FiO2 Intake & Output 11/13/24 11/14/24 11/14/24 18:59 06:59 18:59 Intake Total 272 Balance 272 Intake: Oral 272 Other: Voiding Method Bedside Commode Bedside Commode Bedside Commode # Voids 5 0 2 # Bowel Movements 3 0 - Exam GENERAL: The patient is alert and oriented x3, not in any acute distress. Well developed, well nourished. HEENT: Pupils are round and equally reacting to light. EOMI. No scleral icterus. No conjunctival pallor. Normocephalic, atraumatic. No pharyngeal erythema. No thyromegaly. CARDIOVASCULAR: S1 and S2 present. No murmurs, rubs, or gallops. PULMONARY: Chest is clear to auscultation, no wheezing , no crackles. ABDOMEN: Soft, nontender, nondistended, normoactive bowel sounds. No palpable organomegaly. MUSCULOSKELETAL: No joint swelling or deformity. EXTREMITIES: No cyanosis, clubbing, or pedal edema. NEUROLOGICAL: Gross neurological examination did not reveal any focal deficits. SKIN: No rashes. no petechiae. - Labs CBC & Chem 7: 11/14/24 05:34 11/14/24 05:34 Labs: Abnormal Lab Results - Last 24 Hours (Table) 11/13/24 11/13/24 11/14/24 Range/Units 17:46 20:31 05:34 RBC 3.64 L (4.10-5.20) X 10*6/uL Hgb 10.7 L (12.0-15.0) g/dL Hct 33.8 L (37.2-46.3) % MCHC 31.7 L (32.0-37.0) g/dL Immature Gran # 0.08 H (0.00-0.04) X 10*3/uL Eosinophils # 0.01 L (0.04-0.35) X 10*3/uL Sodium (135-145) mmol/L BUN/Creatinine Ratio (12.00-20.00) Ratio Glucose (70-110) mg/dL POC Glucose (mg/dL) 139 H 156 H (70-110) mg/dL Calcium (8.7-10.3) mg/dL AST (13-35) U/L C-Reactive Protein (0.00-0.80) mg/dL Total Protein (6.2-8.2) g/dL Albumin (3.8-4.9) g/dL 11/14/24 11/14/24 11/14/24 Range/Units 05:34 05:59 12:44 RBC (4.10-5.20) X 10*6/uL Hgb (12.0-15.0) g/dL Hct (37.2-46.3) % MCHC (32.0-37.0) g/dL Immature Gran # (0.00-0.04) X 10*3/uL Eosinophils # (0.04-0.35) X 10*3/uL Sodium 132 L (135-145) mmol/L BUN/Creatinine Ratio 22.12 H (12.00-20.00) Ratio Glucose 119 H (70-110) mg/dL POC Glucose (mg/dL) 111 H 139 H (70-110) mg/dL Calcium 7.8 L (8.7-10.3) mg/dL AST 42 H (13-35) U/L C-Reactive Protein 4.80 H (0.00-0.80) mg/dL Total Protein 5.4 L (6.2-8.2) g/dL Albumin 3.5 L (3.8-4.9) g/dL Assessment and Plan Assessment: 1. Chest pain rule out acute coronary syndrome - Patient does have history of CAD with history of PCI to LCx - Patient remains on aspirin, Plavix, Eliquis, metoprolol and atorvastatin - Consult cardiology who cleared the patient for discharge 2. Nausea/vomiting/diarrhea/abdominal pain; likely acute gastroenteritis; possibly viral versus bacterial; patient is placed on Protonix 40 mg twice daily - Ordered C. difficile which is negative; symptomatic treatment for nausea vom iting and diarrhea - Continue with ceftriaxone and Flagyl and follow-up stool culture 3. Leukocytosis; reactive versus infection induced; we will monitor CBC; order procalcitonin - Chest x-ray and UA are unremarkable 4. Acute renal injury; IV fluids in form of normal saline at a rate of 100 cc a n hour; monitor strict JESICA's, daily weights, renal function electrolytes; avoid nephrotoxins and hypotension 5. Hypertension; metoprolol 25 mg twice daily; Norvasc 5 mg daily 6. Hyperlipidemia; Lipitor 40 mg p.o. nightly 7. Diabetes mellitus 8. COPD; not in exacerbation; continue home inhaler therapy 9. CAD/CHF; patient is currently on aspirin, Eliquis, Plavix, Lipitor and metoprolol; patient has history of cardiac catheterization and is status post PCI to LCx - Cardiology consulted for further recommendations 10. Seizure disorder; patient takes Vimpat 50 mg twice daily 12. Paroxysmal atrial fibrillation; patient remains rate controlled on metoprolol; continue Eliquis for anticoagulation 13. Fall with abdominal and flank pain; will order CT of the abdomen and pelvis DVT prophylaxis; SCD/Eliquis CODE STATUS; full code
[2024-11-15] MEDS: CHOLESTYRAMINE RESIN 4 GM PACKET PO SCH (08:31)
--- NOTE | 2024-11-15 09:43 | CDI ---
Documentation Clarification Form Date: 11/15/2024 09:29:55 AM From: Krys Renteria RN CCDS Phone: [phone] Admit Date: 11/11/2024 07:53:00 PM Patient Name: Jenni Hercules Visit Number: [id number] Discharge Date: ATTENTION: The Clinical Documentation Specialists (CDI) and [facility] Coding Staff appreciate your assistance in clarifying documentation. Please respond to the clarification below the line at the bottom and electronically sign. The CDI & [facility] Coding staff will review the response and follow-up if needed. Please note: Queries are made part of the Legal Health Record. If you have any questions, please contact the author of this message via ITS. Doctor: Brent Cottrell Your patient has the documented diagnosis of unspecified CHF 11/12, Cardiology note. Additional information regarding the [type, acuity] of CHF is requested. History/Risk Factors: 84 year old female presents to the ED for chest discomfort, nausea, vomiting and diarrhea. Medical history: Heart failure, CVA/TIA, Heart Failure, HTN and HLD. 11/14, Cardiology note. Clinical Indicators: VS/Pulse OX: B/P 123/74, HR 56, Temp 98.2F oral, RR 16 SpO2 98% ra BNP, 11/11: 557 Echocardiogram, 06/23: EF 55-60% No obvious regional wall motion abnormality. PPM were noticed in RA and RV. Mild mitral valve leaflet thickening with no major dysfunction. No significant valvular dysfunction echo. Mild LA dilation Chest X Ray, 11/11: No evidence for acute pulmonary disease. Treatment: 11/14 Lopressor po bid, In your professional opinion, can you please clarify the [acuity and type] of CHF if known? [ x ] Chronic Diastolic Heart Failure (preserved EF) [ ] Other, please specify [ ] Unable to determine (Template Last Revised: June 2020) MTDD
--- NOTE | 2024-11-15 10:56 | P.PN ---
Subjective HISTORY OF PRESENTING ILLNESS: 84-year-old presented to the hospital because of feeling weak. Poor oral intake because of nausea vomiting and diarrhea which started 1 day prior to coming to the hospital. She is feeling lightheaded and dizzy and reported to have some substernal chest heaviness symptoms for which she presented to the ER. He was last hospitalized 08/23/2024 for hypertensive urgency and possible TIA. He does have a history of supine hypertension with orthostatic instability from tilt table test from 05/2024. Admission EKG: Atrial paced V sensed rhythm 11/14/2024 Patient seen and examined resting comfortably laying flat in bed in no acute distress. Blood pressure 135/67 heart rate 62 afebrile maintaining oxygen saturation on nasal cannula. Laboratory data reviewed, hemoglobin 10.7, platelets 141, sodium 132, potassium 4, creatinine 0.8. 11/15/2024 Pt seen and examined resting comfortable in no acute distress. Now receiving antibiotics per ID for possible colitis. No chest pain/pressure or shortness of breath. BP 112/47 heart rate 62 afebrile maintaining oxygen saturation on nasal cannula. PHYSICAL EXAMINATION: Neck: Brisk carotid upstroke, no jugular venous distention. Lungs: Clear to auscultation. Heart: Regular rate and rhythm, S1-S2, , no murmur or rub. Abdomen: Soft nontender, positive bowel sounds. Extremities: No edema, intact distal pulses. Neuro: Alert, oritented, no focal deficits. Detailed neuro exam was not performed. ASSESSMENT: Nausea and vomiting diarrhea Generalized weakness VERNELL from poor oral intake from nausea and dehydration from diarrhea History of stable CAD status post PCI to LCx in past Paroxysmal atrial fibrillation Sick sinus syndrome status post PPM History of supine hypertension with orthostatic instability noticed on tilt table test from 05/2024 Possible TIA 08/2024. Prior history of CVA/TIA Moderate left carotid stenosis 60% History of lung cancer with possible relapse Advanced COPD Essential hypertension PLAN: Continue current medical regimen. Overall stable from a cardiac perspective. We will follow along as needed, please call with further questions or concerns. Follow-up with Dr. Lance in 1 to 2 weeks. Nurse Practitioner note has been reviewed, I agree with a documented findings and plan of care. Patient was seen and examined. Objective - Vital Signs Vital signs: Vital Signs Temp 98.1 F 11/15/24 07:09 Pulse 62 11/15/24 07:09 Resp 17 11/15/24 07:09 BP 112/47 11/15/24 07:09 Pulse Ox 100 11/15/24 07:09 FiO2 Intake & Output 11/14/24 11/15/24 11/15/24 18:59 06:59 18:59 Intake Total 272 Balance 272 Intake: Oral 272 Other: Voiding Method Bedside Commode # Voids 2 3 # Bowel Movements 0 1 - Labs CBC & Chem 7: 11/14/24 05:34 11/14/24 05:34 Labs: Abnormal Lab Results - Last 24 Hours (Table) 11/14/24 11/14/24 Range/Units 12:44 17:34 POC Glucose (mg/dL) 139 H 134 H (70-110) mg/dL
[2024-11-15 12:16] LABS: Glucose,Whole Blood 125 mg/dL (70-110)
--- NOTE | 2024-11-15 15:12 | P.PN ---
Subjective Progress Note Date: 11/15/24 Principal diagnosis: Reason for follow-up is fever/gastroenteritis Patient is a 84-year-old female with a past medical history significant for Atrial Fibrillation, Cancer, Heart Failure, COPD, CVA/TIA, Diabetes Mellitus, Deep Vein Thrombosis (DVT), Fibromyalgia, GERD/Reflux, Hyperlipidemia, Hypertension, Osteoarthritis (OA), Pneumonia, Sleep Apnea/CPAP/BIPAP, Vascular Disorder presenting to the hospital for evaluation of chest discomfort nausea and vomiting, did have a fever prompting this consultation. On today's evaluation that is 11/15/2024, Patient is afebrile this morning patient denies having any chest pain shortness of breath or cough, the patient is currently on room air, patient still complaining some mid abdominal discomfort and diarrhea but no vomiting. Patient did have a negative UA no CBC was done today stool cultures are currently pending Objective - Vital Signs Vital signs: Vital Signs Temp 98.1 F 11/15/24 07:09 Pulse 62 11/15/24 07:09 Resp 17 11/15/24 07:09 BP 112/47 11/15/24 07:09 Pulse Ox 100 11/15/24 07:09 FiO2 Intake & Output 11/14/24 11/15/24 11/15/24 18:59 06:59 18:59 Intake Total 272 120 Balance 272 120 Intake: Oral 272 120 Other: Voiding Method Bedside Commode # Voids 2 3 # Bowel Movements 0 1 - Exam GENERAL DESCRIPTION: An elderly female lying in bed in no distress RESPIRATORY SYSTEM: Unlabored breathing , decreased breath sounds at bases HEART: S1 S2 regular rate and rhythm , ABDOMEN: Soft , mild distention but no significant tenderness EXTREMITIES: No edema feet - Labs CBC & Chem 7: 11/14/24 05:34 11/14/24 05:34 Labs: Abnormal Lab Results - Last 24 Hours (Table) 11/14/24 11/14/24 Range/Units 12:44 17:34 POC Glucose (mg/dL) 139 H 134 H (70-110) mg/dL Assessment and Plan (1) Fever Current Visit: Yes Status: Acute Code(s): R50.9 - FEVER, UNSPECIFIED SNOMED Code(s): 867004400 (2) Gastroenteritis Current Visit: Yes Status: Acute Code(s): K52.9 - NONINFECTIVE GASTROENTERITIS AND COLITIS, UNSPECIFIED SNOMED Code(s): 44873118 Plan: 1patient with a fever and this patient presented to hospital with acute diarrhea nausea vomiting and some chest pain likely dealing with gastroenteritis the question of viral source or bacterial etiology there was a high clinic suspicious for C. difficile colitis as the patient mentions she has been exposed to antibiotic however stool for C. difficile is negative, CT abdominal pelvis unfortunately done without any contrast that decrease the sensitivity of this testing however no evidence of colitis reported on that CT. 2we will wait for the stool culture to be finalized 3-patient is currently being treated with Rocephin and Flagyl, Questran has been added for symptomatic relief and will see clinical response Family at bedside question concern answered Dictation was produced using [employer] dictation software. please excuse any grammatical, word or spelling errors. Time with Patient: Less than 30
[2024-11-15 17:10] LABS: Glucose,Whole Blood 136 mg/dL (70-110)
[2024-11-15 20:43] LABS: Glucose,Whole Blood 152 mg/dL (70-110)
[2024-11-16 06:22] LABS: Glucose,Whole Blood 102 mg/dL (70-110)
--- NOTE | 2024-11-16 06:22 | P.PN ---
Subjective 84-year-old female, history of hypertension, hyperlipidemia, diabetes mellitus, atrial fibrillation, DVT, COPD, presents emergency department with concerns with chest discomfort and nausea vomiting. Patient did have some diarrhea earlier this morning. Patient has had some nausea and vomiting the last couple of hours. Patient does have history of A-fib and EMS reports patient had increased symptoms while she was in A-fib on the monitor. Patient still has some nausea. Patient has had some chest pain and associated dyspnea, mild at this time. Blood work completed in ED reveals a WBC of 13.9, hemoglobin of 12.1 and platelet count of 234, sodium 137, potassium 4.5, BUN/creatinine of 38/1.28 and blood glucose of 181, D-dimer of 0.68 EKG: Paced rhythm with a rate of 63. IL 230. Normal axis. Normal QRS. No acute ST change Chest x-ray is negative for any acute pulmonary process - Patient has been cleared for discharge by cardiology - Continues to report episodes of diarrhea; CT of the abdomen and pelvis has been unremarkable; diarrhea likely gastroenteritis could be a viral illness - Patient reports excessive weakness and inability to go home; discharge orders are placed; patient lives alone and is not able to care for self - Will hold the statin consult PT/OT 11/14 Patient presents with chest pain, evaluated by cardiology and cleared for discharge Also patient on Eliquis renal dose 2.5 and aspirin and Plavix. Also patient has symptoms of nausea vomiting and diarrhea suspicious for acute gastroenteritis. Today she spiked a fever of 101.3 Acute gastroenteritis of infectious history with suspected viral versus bacterial. Patient started empirically on ceftriaxone and Flagyl. Stool culture sent. C. difficile negative. Infectious disease consult obtained. Patient placed on Questran as needed. 11/15 Patient is getting better Diarrhea note is noted as bad as used to be No abdominal pain Stool culture pending Remains on ceftriaxone and Flagyl Objective - Vital Signs Vital signs: Vital Signs Temp 98.1 F 11/15/24 07:09 Pulse 62 11/15/24 07:09 Resp 17 11/15/24 07:09 BP 112/47 11/15/24 07:09 Pulse Ox 100 11/15/24 07:09 FiO2 Intake & Output 11/14/24 11/15/24 11/15/24 18:59 06:59 18:59 Intake Total 272 120 Balance 272 120 Intake: Oral 272 120 Other: Voiding Method Bedside Commode # Voids 2 3 # Bowel Movements 0 1 - Exam GENERAL: The patient is alert and oriented x3, not in any acute distress. Well developed, well nourished. HEENT: Pupils are round and equally reacting to light. EOMI. No scleral icterus. No conjunctival pallor. Normocephalic, atraumatic. No pharyngeal erythema. No thyromegaly. CARDIOVASCULAR: S1 and S2 present. No murmurs, rubs, or gallops. PULMONARY: Chest is clear to auscultation, no wheezing , no crackles. ABDOMEN: Soft, nontender, nondistended, normoactive bowel sounds. No palpable organomegaly. MUSCULOSKELETAL: No joint swelling or deformity. EXTREMITIES: No cyanosis, clubbing, or pedal edema. NEUROLOGICAL: Gross neurological examination did not reveal any focal deficits. SKIN: No rashes. no petechiae. - Labs CBC & Chem 7: 11/14/24 05:34 11/14/24 05:34 Labs: Abnormal Lab Results - Last 24 Hours (Table) 11/14/24 11/15/24 Range/Units 17:34 12:13 POC Glucose (mg/dL) 134 H 125 H (70-110) mg/dL Assessment and Plan Assessment: 1. Chest pain rule out acute coronary syndrome - Patient does have history of CAD with history of PCI to LCx - Patient remains on aspirin, Plavix, Eliquis, metoprolol and atorvastatin - Consult cardiology who cleared the patient for discharge 2. Nausea/vomiting/diarrhea/abdominal pain; likely acute gastroenteritis; possibly viral versus bacterial; patient is placed on Protonix 40 mg twice daily - Ordered C. difficile which is negative; symptomatic treatment for nausea vomiting and diarrhea - Continue with ceftriaxone and Flagyl and follow-up stool culture 3. Leukocytosis; reactive versus infection induced; we will monitor CBC; order procalcitonin - Chest x-ray and UA are unremarkable 4. Acute renal injury; IV fluids in form of normal saline at a rate of 100 cc an hour; monitor strict JESICA's, daily weights, renal function electrolytes; avoid nephrotoxins and hypotension 5. Hypertension; metoprolol 25 mg twice daily; Norvasc 5 mg daily 6. Hyperlipidemia; Lipitor 40 mg p.o. nightly 7. Diabetes mellitus 8. COPD; not in exacerbation; continue home inhaler therapy 9. CAD/CHF; patient is currently on aspirin, Eliquis, Plavix, Lipitor and metoprolol; patient has history of cardiac catheterization and is status post PCI to LCx - Cardiology consulted for further recommendations 10. Seizure disorder; patient takes Vimpat 50 mg twice daily 12. Paroxysmal atrial fibrillation; patient remains rate controlled on metoprolol; continue Eliquis for anticoagulation 13. Fall with abdominal and flank pain; will order CT of the abdomen and pelvis DVT prophylaxis; SCD/Eliquis CODE STATUS; full code
[2024-11-16 12:47] LABS: Glucose,Whole Blood 124 mg/dL (70-110)
[2024-11-16 17:21] LABS: Glucose,Whole Blood 162 mg/dL (70-110)
[2024-11-16 20:53] LABS: Glucose,Whole Blood 123 mg/dL (70-110)
--- NOTE | 2024-11-16 23:28 | P.PN ---
Subjective 84-year-old female, history of hypertension, hyperlipidemia, diabetes mellitus, atrial fibrillation, DVT, COPD, presents emergency department with concerns with chest discomfort and nausea vomiting. Patient did have some diarrhea earlier this morning. Patient has had some nausea and vomiting the last couple of hours. Patient does have history of A-fib and EMS reports patient had increased symptoms while she was in A-fib on the monitor. Patient still has some nausea. Patient has had some chest pain and associated dyspnea, mild at this time. Blood work completed in ED reveals a WBC of 13.9, hemoglobin of 12.1 and platelet count of 234, sodium 137, potassium 4.5, BUN/creatinine of 38/1.28 and blood glucose of 181, D-dimer of 0.68 EKG: Paced rhythm with a rate of 63. IL 230. Normal axis. Normal QRS. No acute ST change Chest x-ray is negative for any acute pulmonary process - Patient has been cleared for discharge by cardiology - Continues to report episodes of diarrhea; CT of the abdomen and pelvis has been unremarkable; diarrhea likely gastroenteritis could be a viral illness - Patient reports excessive weakness and inability to go home; discharge orders are placed; patient lives alone and is not able to care for self - Will hold the statin consult PT/OT 11/14 Patient presents with chest pain, evaluated by cardiology and cleared for discharge Also patient on Eliquis renal dose 2.5 and aspirin and Plavix. Also patient has symptoms of nausea vomiting and diarrhea suspicious for acute gastroenteritis. Today she spiked a fever of 101.3 Acute gastroenteritis of infectious history with suspected viral versus bacterial. Patient started empirically on ceftriaxone and Flagyl. Stool culture sent. C. difficile negative. Infectious disease consult obtained. Patient placed on Questran as needed. 11/15 Patient is getting better Diarrhea note is noted as bad as used to be No abdominal pain Stool culture pending Remains on ceftriaxone and Flagyl 11/16 Patient diarrhea is improving, no bowel movement since yesterday No abdominal Tolerates diet She still have episodes of shakiness Stool culture still pending Remains on antibiotics per infectious disease team Objective - Vital Signs Vital signs: Vital Signs Temp 97.4 F L 11/16/24 14:13 Pulse 63 11/16/24 14:13 Resp 17 11/16/24 14:13 BP 136/64 11/16/24 14:13 Pulse Ox 100 11/16/24 14:13 FiO2 Intake & Output 11/16/24 11/16/24 11/17/24 06:59 18:59 06:59 Intake Total 1317 Balance 1317 Intake: Oral 1317 Other: Voiding Method Bedside Commode # Voids 4 2 # Bowel Movements 0 1 - Exam GENERAL: The patient is alert and oriented x3, not in any acute distress. Well developed, well nourished. HEENT: Pupils are round and equally reacting to light. EOMI. No scleral icterus. No conjunctival pallor. Normocephalic, atraumatic. No pharyngeal erythema. No thyromegaly. CARDIOVASCULAR: S1 and S2 present. No murmurs, rubs, or gallops. PULMONARY: Chest is clear to auscultation, no wheezing , no crackles. ABDOMEN: Soft, nontender, nondistended, normoactive bowel sounds. No palpable organomegaly. MUSCULOSKELETAL: No joint swelling or deformity. EXTREMITIES: No cyanosis, clubbing, or pedal edema. NEUROLOGICAL: Gross neurological examination did not reveal any focal deficits. SKIN: No rashes. no petechiae. - Labs CBC & Chem 7: 11/14/24 05:34 11/14/24 05:34 Labs: Abnormal Lab Results - Last 24 Hours (Table) 11/14/24 11/15/24 11/16/24 Range/Units 16:48 20:42 12:45 POC Glucose (mg/dL) 152 H 124 H (70-110) mg/dL Stool Lactoferrin Positive A (Negative) 11/16/24 Range/Units 17:19 POC Glucose (mg/dL) 162 H (70-110) mg/dL Stool Lactoferrin (Negative) Microbiology - Last 24 Hours (Table) 11/14/24 16:48 Stool Culture - Preliminary Stool Assessment and Plan Assessment: 1. Chest pain rule out acute coronary syndrome - Patient does have history of CAD with history of PCI to LCx - Patient remains on aspirin, Plavix, Eliquis, metoprolol and atorvastatin - Consult cardiology who cleared the patient for discharge 2. Nausea/vomiting/diarrhea/abdominal pain; likely acute gastroenteritis; possibly viral versus bacterial; patient is placed on Protonix 40 mg twice daily - Ordered C. difficile which is negative; symptomatic treatment for nausea vomiting and diarrhea - Continue with ceftriaxone and Flagyl and follow-up stool culture 3. Leukocytosis; reactive versus infection induced; we will monitor CBC; order procalcitonin - Chest x-ray and UA are unremarkable 4. Acute renal injury; IV fluids in form of normal saline at a rate of 100 cc an hour; monitor strict JESICA's, daily weights, renal function electrolytes; avoid nephrotoxins and hypotension 5. Hypertension; metoprolol 25 mg twice daily; Norvasc 5 mg daily 6. Hyperlipidemia; Lipitor 40 mg p.o. nightly 7. Diabetes mellitus 8. COPD; not in exacerbation; continue home inhaler therapy 9. CAD/CHF; patient is currently on aspirin, Eliquis, Plavix, Lipitor and metoprolol; patient has history of cardiac catheterization and is status post PCI to LCx - Cardiology consulted for further recommendations 10. Seizure disorder; patient takes Vimpat 50 mg twice daily 12. Paroxysmal atrial fibrillation; patient remains rate controlled on metoprolol; continue Eliquis for anticoagulation 13. Fall with abdominal and flank pain; will order CT of the abdomen and pelvis DVT prophylaxis; SCD/Eliquis CODE STATUS; full code
[2024-11-17 05:53] LABS: Glucose,Whole Blood 127 mg/dL (70-110)
[2024-11-17 12:08] LABS: Glucose,Whole Blood 130 mg/dL (70-110)
[2024-11-17 14:28] VITALS: BMI 19.8
[2024-11-17] MEDS: ALPRAZolam 0.25 MG TAB PO PRN (15:10)
--- NOTE | 2024-11-17 15:10 | P.PN ---
Subjective Progress Note Date: 11/16/24 Principal diagnosis: Reason for follow-up is fever/gastroenteritis Patient is a 84-year-old female with a past medical history significant for Atrial Fibrillation, Cancer, Heart Failure, COPD, CVA/TIA, Diabetes Mellitus, Deep Vein Thrombosis (DVT), Fibromyalgia, GERD/Reflux, Hyperlipidemia, Hypertension, Osteoarthritis (OA), Pneumonia, Sleep Apnea/CPAP/BIPAP, Vascular Disorder presenting to the hospital for evaluation of chest discomfort nausea and vomiting, did have a fever prompting this consultation. On today's evaluation that is 11/16/2024,the patient denies any fever or any chills, patient is breathing comfortably on room air, the patient denies chest pain shortness of breath and no significant cough, patient has been complaining of some abdominal distention nausea but no vomiting did have improvement in her diarrhea. No new lab has been obtained today stool cultures are currently pending Objective - Vital Signs Vital signs: Vital Signs Temp 98.0 F 11/16/24 07:05 Pulse 72 11/16/24 07:05 Resp 16 11/16/24 07:05 BP 153/68 11/16/24 07:05 Pulse Ox 98 11/16/24 07:05 FiO2 Intake & Output 11/15/24 11/16/24 11/16/24 18:59 06:59 18:59 Intake Total 120 360 Balance 120 360 Intake: Oral 120 360 Other: Voiding Method Bedside Commode # Voids 4 2 # Bowel Movements 0 1 - Exam GENERAL DESCRIPTION: An elderly female lying in bed in no distress RESPIRATORY SYSTEM: Unlabored breathing , decreased breath sounds at bases HEART: S1 S2 regular rate and rhythm , ABDOMEN: Soft , mild distention but no significant tenderness EXTREMITIES: No edema feet - Labs CBC & Chem 7: 11/14/24 05:34 11/14/24 05:34 Labs: Abnormal Lab Results - Last 24 Hours (Table) 11/15/24 11/15/24 11/15/24 Range/Units 12:13 17:06 20:42 POC Glucose (mg/dL) 125 H 136 H 152 H (70-110) mg/dL Microbiology - Last 24 Hours (Table) 11/14/24 16:48 Stool Culture - Preliminary Stool Assessment and Plan (1) Fever Current Visit: Yes Status: Acute Code(s): R50.9 - FEVER, UNSPECIFIED SNOMED Code(s): 804866862 (2) Gastroenteritis Current Visit: Yes Status: Acute Code(s): K52.9 - NONINFECTIVE GASTROENTERITIS AND COLITIS, UNSPECIFIED SNOMED Code(s): 49487474 Plan: 1patient with a fever and this patient presented to hospital with acute diarrhea nausea vomiting and some chest pain likely dealing with gastroenteritis the question of viral source or bacterial etiology there was a high clinic suspicious for C. difficile colitis as the patient mentions she has been exposed to antibiotic however stool for C. difficile is negative, CT abdominal pelvis unfortunately done without any contrast that decrease the sensitivity of this testing however no evidence of colitis reported on that CT. 2stool cultures currently pending did have some improvement in diarrhea to continue with the Rocephin and Flagyl and Questran as needed Dictation was produced using [employer] dictation software. please excuse any grammatical, word or spelling errors. Time with Patient: Less than 30
--- NOTE | 2024-11-17 15:11 | P.PN ---
Subjective Progress Note Date: 11/17/24 Principal diagnosis: Reason for follow-up is fever/gastroenteritis Patient is a 84-year-old female with a past medical history significant for Atrial Fibrillation, Cancer, Heart Failure, COPD, CVA/TIA, Diabetes Mellitus, Deep Vein Thrombosis (DVT), Fibromyalgia, GERD/Reflux, Hyperlipidemia, Hypertension, Osteoarthritis (OA), Pneumonia, Sleep Apnea/CPAP/BIPAP, Vascular Disorder presenting to the hospital for evaluation of chest discomfort nausea and vomiting, did have a fever prompting this consultation. On today's evaluation that is 11/17/2024,the patient remains to be afebrile, patient is on room air not requiring supplemental oxygen and denies any shortness of breath no chest pain or cough.Patient denies having any nausea or vomiting, still complaining of abdominal distention after she eats anything did have resolution of diarrhea and having a soft bowel movement No new lab has been obtained today Objective - Vital Signs Vital signs: Vital Signs Temp 97.3 F L 11/17/24 13:53 Pulse 65 11/17/24 13:53 Resp 16 11/17/24 13:53 BP 146/68 11/17/24 13:53 Pulse Ox 100 11/17/24 13:53 FiO2 Intake & Output 11/16/24 11/17/24 11/17/24 18:59 06:59 18:59 Intake Total 1317 1066 Balance 1317 1066 Weight 52.5 kg Intake: Oral 1317 1066 Other: Voiding Method Bedside Commode # Voids 2 3 1 # Bowel Movements 1 - Exam GENERAL DESCRIPTION: An elderly female lying in bed in no distress RESPIRATORY SYSTEM: Unlabored breathing , decreased breath sounds at bases HEART: S1 S2 regular rate and rhythm , ABDOMEN: Soft , mild distention but no significant tenderness EXTREMITIES: No edema feet - Labs CBC & Chem 7: 11/14/24 05:34 11/14/24 05:34 Labs: Abnormal Lab Results - Last 24 Hours (Table) 11/16/24 11/16/24 11/17/24 Range/Units 17:19 20:51 05:51 POC Glucose (mg/dL) 162 H 123 H 127 H (70-110) mg/dL 11/17/24 Range/Units 12:06 POC Glucose (mg/dL) 130 H (70-110) mg/dL Microbiology - Last 24 Hours (Table) 11/14/24 16:48 Stool Culture - Preliminary Stool Assessment and Plan (1) Fever Current Visit: Yes Status: Acute Code(s): R50.9 - FEVER, UNSPECIFIED SNOMED Code(s): 601374928 (2) Gastroenteritis Current Visit: Yes Status: Acute Code(s): K52.9 - NONINFECTIVE GASTROENTERITIS AND COLITIS, UNSPECIFIED SNOMED Code(s): 96396475 Plan: 1patient with a fever and this patient presented to hospital with acute diarrhea nausea vomiting and some chest pain likely dealing with gastroenteritis the question of viral source or bacterial etiology there was a high clinic suspicious for C. difficile colitis as the patient mentions she has been exposed to antibiotic however stool for C. difficile is negative, CT abdominal pelvis unfortunately done without any contrast that decrease the sensitivity of this testing however no evidence of colitis reported on that CT. 2stool cultures currently pending patient complaining of more abdominal distention today though no significant tenderness was noticed will check a CT abdominal pelvis with oral contrast only because of her persistent abdominal symptoms 3for now continue with Rocephin and Flagyl hold Questran if no bowel movement for 24 hours Dictation was produced using [employer] dictation software. please excuse any grammatical, word or spelling errors. Time with Patient: Less than 30
[2024-11-17] MEDS: IOPAMIDOL CONTRAST (ORAL USE) VIAL PO PRN (15:27)
[2024-11-17 17:18] LABS: Glucose,Whole Blood 129 mg/dL (70-110)
--- NOTE | 2024-11-17 18:15 | CT ---
EXAMINATION TYPE: CT abdomen pelvis wo con CT DLP: 329.1 mGycm, Automated exposure control for dose reduction was used. DATE OF EXAM: 11/17/2024 5:26 PM COMPARISON: CT abdomen pelvis 11/12/2024 CLINICAL INDICATION:Female, 84 years old with history of Abdominal distention and pain; abdominal carol n and distention TECHNIQUE: Standard CT of the abdomen and pelvis following the administration of oral contrast. Cor onal and sagittal reformats were performed. FINDINGS: LOWER CHEST: Trace bilateral pleural effusions with associated atelectasis. Moderate centrilobular em physematous changes again. Right lower lobe 7 mm pulmonary nodule (series 4, image 7). Consider benig n due to stability from multiple exams. Partial visualization of cardiac pacemaking leads. ABDOMEN LIVER: Unremarkable noncontrast appearance. GALLBLADDER AND BILE DUCTS: The gallbladder is surgically absent. PANCREAS: Unremarkable noncontrast appearance. SPLEEN: Unremarkable noncontrast appearance. ADRENAL GLANDS: Unremarkable noncontrast appearance.. KIDNEYS AND URETERS: No evidence of hydronephrosis or renal calculus. Stable left renal cysts measuri ng up to 2.6 cm. No focal recommend. PELVIS BLADDER: Moderately distended urinary bladder. REPRODUCTIVE: Small calcified fundal fibroids. ABDOMEN & PELVIS STOMACH AND BOWEL: Small hiatal hernia, duodenum is unremarkable. Extensive distal colonic diverticul a without evidence for acute diverticulitis. Enteric contrast reaches the mid to distal small bowel. No focal bowel wall thickening or surrounding inflammatory changes identified. The appendix is within normal limits. No evidence of bowel obstruction. Mild to moderate amount of stool is present within the colon. PERITONEUM: No evidence of pneumoperitoneum or free fluid. VASCULATURE: Moderate atherosclerotic calcifications are present throughout the abdominal aorta and i ts branches. No evidence of aortic aneurysm. MUSCULOSKELETAL: No acute osseous abnormalities. Degenerative changes of the pubic symphysis. Remote right inferior pubic rami fracture. Osteoarthritic changes of both hips right greater than left. Grad e 1 anterolisthesis of L4-L5 without evidence of pars defects. Multilevel degenerative disc disease w hich is most pronounced at L5-S1. LYMPH NODES: No gross evidence for lymphadenopathy. SOFT TISSUE/ABDOMINAL WALL: Unremarkable IMPRESSION: 1. No CT evidence for acute abdominal/pelvic process within the limitations of a nonintravenous cont rast exam. 2. Moderately distended urinary bladder. 3. Colonic diverticulosis without evidence for acute diverticulitis. 4. Trace bilateral pleural effusions. 5. Emphysematous changes. [facility], , 11/17/2024 6:13 PM
[2024-11-17 19:57] LABS: Glucose,Whole Blood 177 mg/dL (70-110)
--- NOTE | 2024-11-17 21:14 | P.PN ---
Subjective 84-year-old female, history of hypertension, hyperlipidemia, diabetes mellitus, atrial fibrillation, DVT, COPD, presents emergency department with concerns with chest discomfort and nausea vomiting. Patient did have some diarrhea earlier this morning. Patient has had some nausea and vomiting the last couple of hours. Patient does have history of A-fib and EMS reports patient had increased symptoms while she was in A-fib on the monitor. Patient still has some nausea. Patient has had some chest pain and associated dyspnea, mild at this time. Blood work completed in ED reveals a WBC of 13.9, hemoglobin of 12.1 and platelet count of 234, sodium 137, potassium 4.5, BUN/creatinine of 38/1.28 and blood glucose of 181, D-dimer of 0.68 EKG: Paced rhythm with a rate of 63. [place] 230. Normal axis. Normal QRS. No acute ST change Chest x-ray is negative for any acute pulmonary process - Patient has been cleared for discharge by cardiology - Continues to report episodes of diarrhea; CT of the abdomen and pelvis has been unremarkable; diarrhea likely gastroenteritis could be a viral illness - Patient reports excessive weakness and inability to go home; discharge orders are placed; patient lives alone and is not able to care for self - Will hold the statin consult PT/OT 11/14 Patient presents with chest pain, evaluated by cardiology and cleared for discharge Also patient on Eliquis renal dose 2.5 and aspirin and Plavix. Also patient has symptoms of nausea vomiting and diarrhea suspicious for acute gastroenteritis. Today she spiked a fever of 101.3 Acute gastroenteritis of infectious history with suspected viral versus bacterial. Patient started empirically on ceftriaxone and Flagyl. Stool culture sent. C. difficile negative. Infectious disease consult obtained. Patient placed on Questran as needed. 11/15 Patient is getting better Diarrhea note is noted as bad as used to be No abdominal pain Stool culture pending Remains on ceftriaxone and Flagyl 11/16 Patient diarrhea is improving, no bowel movement since yesterday No abdominal Tolerates diet She still have episodes of shakiness Stool culture still pending Remains on antibiotics per infectious disease team 11/17 Patient had abdominal distention and abdominal pain /10 severity Patient had [address] scan of the abdomen pelvis showing no acute process but there is distended urinary bladder, bladder scan requested to rule out acute urinary retention Patient remains on broad-spectrum antibiotics with ceftriaxone and Flagyl with close monitoring Objective - Vital Signs Vital signs: Vital Signs Temp 97.3 F L 11/17/24 13:53 Pulse 65 11/17/24 13:53 Resp 16 11/17/24 13:53 BP 146/68 11/17/24 13:53 Pulse Ox 100 11/17/24 13:53 FiO2 Intake & Output 11/16/24 11/17/24 11/17/24 18:59 06:59 18:59 Intake Total 1317 1066 Balance 1317 1066 Weight 52.5 kg Intake: Oral 1317 1066 Other: Voiding Method Bedside Commode # Voids 2 3 1 # Bowel Movements 1 - Exam GENERAL: The patient is alert and oriented x3, not in any acute distress. Well developed, well nourished. HEENT: Pupils are round and equally reacting to light. EOMI. No scleral icterus. No conjunctival pallor. Normocephalic, atraumatic. No pharyngeal erythema. No thyromegaly. CARDIOVASCULAR: S1 and S2 present. No murmurs, rubs, or gallops. PULMONARY: Chest is clear to auscultation, no wheezing , no crackles. ABDOMEN: Soft, nontender, nondistended, normoactive bowel sounds. No palpable organomegaly. MUSCULOSKELETAL: No joint swelling or deformity. EXTREMITIES: No cyanosis, clubbing, or pedal edema. NEUROLOGICAL: Gross neurological examination did not reveal any focal deficits. SKIN: No rashes. no petechiae. - Labs CBC & Chem 7: 11/14/24 05:34 11/14/24 05:34 Labs: Abnormal Lab Results - Last 24 Hours (Table) 11/16/24 11/16/24 11/17/24 Range/Units 17:19 20:51 05:51 POC Glucose (mg/dL) 162 H 123 H 127 H (70-110) mg/dL 11/17/24 Range/Units 12:06 POC Glucose (mg/dL) 130 H (70-110) mg/dL Microbiology - Last 24 Hours (Table) 11/14/24 16:48 Stool Culture - Preliminary Stool Assessment and Plan Assessment: 1. Chest pain rule out acute coronary syndrome - Patient does have history of CAD with history of PCI to LCx - Patient remains on aspirin, Plavix, Eliquis, metoprolol and atorvastatin - Consult cardiology who cleared the patient for discharge 2. Nausea/vomiting/diarrhea/abdominal pain; likely acute gastroenteritis; possibly viral versus bacterial; patient is placed on Protonix 40 mg twice daily - Ordered C. difficile which is negative; symptomatic treatment for nausea vomiting and diarrhea - Continue with ceftriaxone and Flagyl and follow-up stool culture 3. Leukocytosis; reactive versus infection induced; we will monitor CBC; order procalcitonin - Chest x-ray and UA are unremarkable 4. Acute renal injury; IV fluids in form of normal saline at a rate of 100 cc an hour; monitor strict JESICA's, daily weights, renal function electrolytes; avoid nephrotoxins and hypotension 5. Hypertension; metoprolol 25 mg twice daily; Norvasc 5 mg daily 6. Hyperlipidemia; Lipitor 40 mg p.o. nightly 7. Diabetes mellitus 8. COPD; not in exacerbation; continue home inhaler therapy 9. CAD/CHF; patient is currently on aspirin, Eliquis, Plavix, Lipitor and metoprolol; patient has history of cardiac catheterization and is status post PCI to LCx - Cardiology consulted for further recommendations 10. Seizure disorder; patient takes Vimpat 50 mg twice daily 12. Paroxysmal atrial fibrillation; patient remains rate controlled on metoprolol; continue Eliquis for anticoagulation 13. Fall with abdominal and flank pain; will order CT of the abdomen and pelvis 14. Distended urinary bladder noticed on 11/17. Rule out acute urinary retention DVT prophylaxis; SCD/Eliquis CODE STATUS; full code
[2024-11-18 05:58] LABS: Glucose,Whole Blood 110 mg/dL (70-110)
[2024-11-18 10:23] LABS: HCT 31.4 % (37.2-46.3); HGB 9.8 g/dL (12.0-15.0); MCH 29.3 pg (27.0-32.0); MCHC 31.2 g/dL (32.0-37.0); MCV 93.7 FL (80.0-97.0); Mean Platelet Volume 11.5 FL (9.5-12.2); NRBC Per 100 WBC 0 X 10*3/uL (0.00-0.01); Platelet Count 163 X 10*3/uL (140-440); RBC 3.35 X 10*6/uL (4.10-5.20); RDW 14.3 % (11.5-14.5); WBC 5.32 X 10*3/uL (4.50-10.00)
[2024-11-18 10:39] LABS: BUN/Creat Ratio 12.14 Ratio (12.00-20.00); Blood Urea Nitrogen 8.5 mg/dL (9.0-27.0); Glucose 95 mg/dL (70-110)
[2024-11-18 10:40] LABS: Carbon Dioxide 29.2 mmol/L (21.6-31.8); Chloride 104 mmol/L (96-109); Potassium 4.7 mmol/L (3.5-5.5); Sodium 141 mmol/L (135-145)
[2024-11-18 12:20] LABS: Basophils # (M) 0 X 10*3/uL (0.00-0.10); Eosinophils # (M) 0.16 X 10*3/uL (0.04-0.35); Lymphocytes # (M) 1.44 X 10*3/uL (0.90-5.00); Monocytes # (M) 0.27 X 10*3/uL (0.20-1.00); Neutrophils # (M) 3.46 X 10*3/uL (1.80-7.70); Neutrophils % (M) 65 %
[2024-11-18 12:42] LABS: Glucose,Whole Blood 100 mg/dL (70-110)
--- NOTE | 2024-11-18 14:45 | XR ---
EXAMINATION TYPE: XR KUB portable DATE OF EXAM: 11/18/2024 2:18 PM COMPARISON: 01/22/2022 CLINICAL INDICATION: Female, 84 years old with history of distension; [facility] TECHNIQUE: One radiographic view of the abdomen was obtained. FINDINGS: Moderate to large amount stool in the colon and rectum with high density stool present. The bowel gas pattern is nonspecific without dilated loops of small or large bowel. . Fecal material and gas are demonstrated throughout the colon and rectum. There is no evidence for organomegaly or pneum operitoneum. No acute osseous process. No abnormal calcifications are present. IMPRESSION: Moderate to large stool burden in the colon particularly the rectum. No evidence for obstruction. [facility], , 11/18/2024 2:43 PM
[2024-11-18 17:06] LABS: Glucose,Whole Blood 188 mg/dL (70-110)
[2024-11-18 19:59] LABS: Glucose,Whole Blood 176 mg/dL (70-110)
--- NOTE | 2024-11-19 01:05 | P.PN ---
Subjective 84-year-old female, history of hypertension, hyperlipidemia, diabetes mellitus, atrial fibrillation, DVT, COPD, presents emergency department with concerns with chest discomfort and nausea vomiting. Patient did have some diarrhea earlier this morning. Patient has had some nausea and vomiting the last couple of hours. Patient does have history of A-fib and EMS reports patient had increased symptoms while she was in A-fib on the monitor. Patient still has some nausea. Patient has had some chest pain and associated dyspnea, mild at this time. Blood work completed in ED reveals a WBC of 13.9, hemoglobin of 12.1 and platelet count of 234, sodium 137, potassium 4.5, BUN/creatinine of 38/1.28 and blood glucose of 181, D-dimer of 0.68 EKG: Paced rhythm with a rate of 63. [place] 230. Normal axis. Normal QRS. No acute ST change Chest x-ray is negative for any acute pulmonary process - Patient has been cleared for discharge by cardiology - Continues to report episodes of diarrhea; CT of the abdomen and pelvis has been unremarkable; diarrhea likely gastroenteritis could be a viral illness - Patient reports excessive weakness and inability to go home; discharge orders are placed; patient lives alone and is not able to care for self - Will hold the statin consult PT/OT 11/14 Patient presents with chest pain, evaluated by cardiology and cleared for discharge Also patient on Eliquis renal dose 2.5 and aspirin and Plavix. Also patient has symptoms of nausea vomiting and diarrhea suspicious for acute gastroenteritis. Today she spiked a fever of 101.3 Acute gastroenteritis of infectious history with suspected viral versus bacterial. Patient started empirically on ceftriaxone and Flagyl. Stool culture sent. C. difficile negative. Infectious disease consult obtained. Patient placed on Questran as needed. 11/15 Patient is getting better Diarrhea note is noted as bad as used to be No abdominal pain Stool culture pending Remains on ceftriaxone and Flagyl 11/16 Patient diarrhea is improving, no bowel movement since yesterday No abdominal Tolerates diet She still have episodes of shakiness Stool culture still pending Remains on antibiotics per infectious disease team 11/17 Patient had abdominal distention and abdominal pain /10 severity Patient had [address] scan of the abdomen pelvis showing no acute process but there is distended urinary bladder, bladder scan requested to rule out acute urinary retention Patient remains on broad-spectrum antibiotics with ceftriaxone and Flagyl with close monitoring 6/27 Patient today was still complaining from some abdominal distention although better than yesterday. Also she had 2 small loose bowel movement. Because there was suspicion of moderate urinary bladder enlargement on CAT scan we checked bladder scan ultrasonically which was low for double check we did 1 straight cath it was 50 mL only We repeated KUB and showing fecal impaction in the rectum with moderate scope total burden up to the sigmoid and descending colon Because of this we discontinued Questran. We will keep monitoring the patient today and if her bowel movement and distenti on improved by tomorrow may be considered for discharge Objective - Vital Signs Vital signs: Vital Signs Temp 97.7 F 11/18/24 07:25 Pulse 59 L 11/18/24 07:25 Resp 16 11/18/24 07:25 BP 123/52 11/18/24 07:25 Pulse Ox 100 11/18/24 07:25 FiO2 Intake & Output 11/17/24 11/18/24 11/18/24 18:59 06:59 18:59 Intake Total 1066 236 360 Balance 1066 236 360 Weight 52.5 kg Intake: Oral 1066 236 360 Other: Voiding Method Bedside Commode # Voids 1 2 - Exam GENERAL: The patient is alert and oriented x3, not in any acute distress. Well developed, well nourished. HEENT: Pupils are round and equally reacting to light. EOMI. No scleral icterus. No conjunctival pallor. Normocephalic, atraumatic. No pharyngeal erythema. No thyromegaly. CARDIOVASCULAR: S1 and S2 present. No murmurs, rubs, or gallops. PULMONARY: Chest is clear to auscultation, no wheezing , no crackles. ABDOMEN: Soft, nontender, nondistended, normoactive bowel sounds. No palpable organomegaly. MUSCULOSKELETAL: No joint swelling or deformity. EXTREMITIES: No cyanosis, clubbing, or pedal edema. NEUROLOGICAL: Gross neurological examination did not reveal any focal deficits. SKIN: No rashes. no petechiae. - Labs CBC & Chem 7: 11/18/24 07:18 11/18/24 07:18 Labs: Abnormal Lab Results - Last 24 Hours (Table) 11/17/24 11/17/24 11/18/24 Range/Units 17:15 19:54 07:18 RBC 3.35 L (4.10-5.20) X 10*6/uL Hgb 9.8 L (12.0-15.0) g/dL Hct 31.4 L (37.2-46.3) % MCHC 31.2 L (32.0-37.0) g/dL BUN (9.0-27.0) mg/dL POC Glucose (mg/dL) 129 H 177 H (70-110) mg/dL 11/18/24 Range/Units 07:18 RBC (4.10-5.20) X 10*6/uL Hgb (12.0-15.0) g/dL Hct (37.2-46.3) % MCHC (32.0-37.0) g/dL BUN 8.5 L (9.0-27.0) mg/dL POC Glucose (mg/dL) (70-110) mg/dL Microbiology - Last 24 Hours (Table) 11/14/24 16:48 Stool Culture - Preliminary Stool Assessment and Plan Assessment: 1. Chest pain rule out acute coronary syndrome - Patient does have history of CAD with history of PCI to LCx - Patient remains on aspirin, Plavix, Eliquis, metoprolol and atorvastatin - Consult cardiology who cleared the patient for discharge 2. Nausea/vomiting/diarrhea/abdominal pain; likely acute gastroenteritis; possibly viral versus bacterial; patient is placed on Protonix 40 mg twice daily - Ordered C. difficile which is negative; symptomatic treatment for nausea vomi ting and diarrhea - Continue with ceftriaxone and Flagyl and follow-up stool culture 3. Severe constipation and fecal impaction with abdominal distention. Discontinue Questran. Continue monitoring 4. Acute renal injury; IV fluids in form of normal saline at a rate of 100 cc an hour; monitor strict JESICA's, daily weights, renal function electrolytes; avoid nephrotoxins and hypotension 5. Hypertension; metoprolol 25 mg twice daily; Norvasc 5 mg daily 6. Hyperlipidemia; Lipitor 40 mg p.o. nightly 7. Diabetes mellitus 8. COPD; not in exacerbation; continue home inhaler therapy 9. CAD/CHF; patient is currently on aspirin, Eliquis, Plavix, Lipitor and metoprolol; patient has history of cardiac catheterization and is status post PCI to LCx - Cardiology consulted for further recommendations 10. Seizure disorder; patient takes Vimpat 50 mg twice daily 12. Paroxysmal atrial fibrillation; patient remains rate controlled on metoprolol; continue Eliquis for anticoagulation 13. Fall with abdominal and flank pain; will order CT of the abdomen and pelvis 14. Distended urinary bladder noticed on 11/17. Rule out acute urinary retention 15. Leukocytosis; resolved DVT prophylaxis; SCD/Eliquis CODE STATUS; full code
[2024-11-19 06:06] LABS: Glucose,Whole Blood 108 mg/dL (70-110)
[2024-11-19 07:39] VITALS: RESP 14
--- NOTE | 2024-11-19 09:44 | P.PN ---
Subjective Progress Note Date: 11/18/24 Principal diagnosis: Reason for follow-up is fever/gastroenteritis Patient is a 84-year-old female with a past medical history significant for Atrial Fibrillation, Cancer, Heart Failure, COPD, CVA/TIA, Diabetes Mellitus, Deep Vein Thrombosis (DVT), Fibromyalgia, GERD/Reflux, Hyperlipidemia, Hypertension, Osteoarthritis (OA), Pneumonia, Sleep Apnea/CPAP/BIPAP, Vascular Disorder presenting to the hospital for evaluation of chest discomfort nausea and vomiting, did have a fever prompting this consultation. On today's evaluation that is 11/18/2024, the patient continues to be afebrile, the patient is on room air and breathing comfortably, the Pt denies having any chest pain or cough, the patient denies having any nausea vomiting did have some diarrhea still complaining of slight abdominal distention. Patient did have a white count of 5.32, creatinine 0.[address] did not show any acute abnormality stool culture so far negative Objective - Vital Signs Vital signs: Vital Signs Temp 97.7 F 11/18/24 07:25 Pulse 59 L 11/18/24 07:25 Resp 16 11/18/24 07:25 BP 123/52 11/18/24 07:25 Pulse Ox 100 11/18/24 07:25 FiO2 Intake & Output 11/17/24 11/18/24 11/18/24 18:59 06:59 18:59 Intake Total 1066 236 360 Balance 1066 236 360 Weight 52.5 kg Intake: Oral 1066 236 360 Other: Voiding Method Bedside Commode # Voids 1 2 - Exam GENERAL DESCRIPTION: An elderly female lying in bed in no distress RESPIRATORY SYSTEM: Unlabored breathing , decreased breath sounds at bases HEART: S1 S2 regular rate and rhythm , ABDOMEN: Soft , mild distention but no significant tenderness EXTREMITIES: No edema feet - Labs CBC & Chem 7: 11/18/24 07:18 11/18/24 07:18 Labs: Abnormal Lab Results - Last 24 Hours (Table) 11/17/24 11/17/24 11/18/24 Range/Units 17:15 19:54 07:18 RBC 3.35 L (4.10-5.20) X 10*6/uL Hgb 9.8 L (12.0-15.0) g/dL Hct 31.4 L (37.2-46.3) % MCHC 31.2 L (32.0-37.0) g/dL BUN (9.0-27.0) mg/dL POC Glucose (mg/dL) 129 H 177 H (70-110) mg/dL 11/18/24 Range/Units 07:18 RBC (4.10-5.20) X 10*6/uL Hgb (12.0-15.0) g/dL Hct (37.2-46.3) % MCHC (32.0-37.0) g/dL BUN 8.5 L (9.0-27.0) mg/dL POC Glucose (mg/dL) (70-110) mg/dL Microbiology - Last 24 Hours (Table) 11/14/24 16:48 Stool Culture - Preliminary Stool Assessment and Plan (1) Fever Current Visit: Yes Status: Acute Code(s): R50.9 - FEVER, UNSPECIFIED SNOMED Code(s): 731043206 (2) Gastroenteritis Current Visit: Yes Status: Acute Code(s): K52.9 - NONINFECTIVE GASTROENTERITIS AND COLITIS, UNSPECIFIED SNOMED Code(s): 09365871 Plan: 1patient with a fever and this patient presented to hospital with acute diarrhea nausea vomiting and some chest pain likely dealing with gastroenteritis the question of viral source or bacterial etiology there was a high clinic suspicious for C. difficile colitis as the patient mentions she has been exposed to antibiotic however stool for C. difficile is negative, CT abdominal pelvis unfortunately done without any contrast that decrease the sensitivity of this testing however no evidence of colitis reported on that CT. 2patient was complaining of more abdominal distention yesterday for the patient to have repeat CT abdominal pelvis with contrast did not show any acute abnormality this has been explained in detail with the patient 3for now continue with Rocephin and Flagyl however will be able to finish therapy with a short course of oral Ceftin and Flagyl Dictation was produced using [employer] dictation software. please excuse any grammatical, word or spelling errors. Time with Patient: Less than 30
[2024-11-19 12:45] LABS: Glucose,Whole Blood 128 mg/dL (70-110)
[2024-11-19] MEDS: MINERAL OIL 133 ML ENEMA RECTAL STA (13:46)
[2024-11-19 14:46] VITALS: BP 121/61; PULSE 54; TEMP 98.2
--- NOTE | 2024-11-19 15:38 | P.PN ---
Subjective Progress Note Date: 11/19/24 Principal diagnosis: Reason for follow-up is fever/gastroenteritis Patient is a 84-year-old female with a past medical history significant for Atrial Fibrillation, Cancer, Heart Failure, COPD, CVA/TIA, Diabetes Mellitus, Deep Vein Thrombosis (DVT), Fibromyalgia, GERD/Reflux, Hyperlipidemia, Hypertension, Osteoarthritis (OA), Pneumonia, Sleep Apnea/CPAP/BIPAP, Vascular Disorder presenting to the hospital for evaluation of chest discomfort nausea and vomiting, did have a fever prompting this consultation. On today's evaluation that is 11/20/2023, patient did have a temperature of 98 F this morning and denies having any chills, patient is on room air and breathi ng comfortably no chest pain or cough, the patient did not have any nausea vomiting abdominal pain or any diarrhea. No new lab has been obtained today Objective - Vital Signs Vital signs: Vital Signs Temp 97.7 F 11/19/24 07:38 Pulse 58 L 11/19/24 07:38 Resp 14 11/19/24 07:38 BP 135/51 11/19/24 07:38 Pulse Ox 100 11/19/24 07:38 FiO2 Intake & Output 11/18/24 11/19/24 11/19/24 18:59 06:59 18:59 Intake Total 840 240 Output Total 50 Balance 790 240 Intake: Oral 840 240 Output: Urine 50 Straight 50 Other: Voiding Method Bedside Commode # Voids 4 3 - Exam GENERAL DESCRIPTION: An elderly female lying in bed in no distress RESPIRATORY SYSTEM: Unlabored breathing , decreased breath sounds at bases HEART: S1 S2 regular rate and rhythm , ABDOMEN: Soft , mild distention but no significant tenderness EXTREMITIES: No edema feet - Labs CBC & Chem 7: 11/18/24 07:18 11/18/24 07:18 Labs: Abnormal Lab Results - Last 24 Hours (Table) 11/18/24 11/18/24 Range/Units 17:05 19:56 POC Glucose (mg/dL) 188 H 176 H (70-110) mg/dL Microbiology - Last 24 Hours (Table) 11/14/24 16:48 Stool Culture - Final Stool Assessment and Plan (1) Fever Current Visit: Yes Status: Acute Code(s): R50.9 - FEVER, UNSPECIFIED SNOMED Code(s): 121009883 (2) Gastroenteritis Current Visit: Yes Status: Acute Code(s): K52.9 - NONINFECTIVE GASTROENTERITIS AND COLITIS, UNSPECIFIED SNOMED Code(s): 98060271 Plan: 1patient with a fever and this patient presented to hospital with acute diarrhea nausea vomiting and some chest pain likely dealing with gastroenteritis the question of viral source or bacterial etiology there was a high clinic suspicious for C. difficile colitis as the patient mentions she has been exposed to antibiotic however stool for C. difficile is negative, CT abdominal pelvis unfortunately done without any contrast that decrease the sensitivity of this testing however no evidence of colitis reported on that CT. 2patient was complaining of more abdominal distention yesterday for the patient to have repeat CT abdominal pelvis with contrast did not show any acute abnormality this has been explained in detail with the patient 3patient has shown overall clinical improvement, to finish therapy with a short course of oral Ceftin and Flagyl on discharge discussed with the admitting physician Dictation was produced using [employer] dictation software. please excuse any grammatical, word or spelling errors. Time with Patient: Less than 30
[2024-11-19 17:15] LABS: Glucose,Whole Blood 111 mg/dL (70-110)
== END 2024-11-19 18:56 | disposition home health service (06) | DRG 392 ==
LOC: EC 15:21 → 6NMEDSUR 19:52 → OBSVTOIN 19:53 → 6NMEDSUR 11-12 06:40
PROVIDERS: ADMIT Internal Medicine; ATTEND Internal Medicine
PROC: 4B02XSZ Measurement of Cardiac Pacemaker, External Approach (ICD-10-PCS; principal; 2024-11-13)
DX: K52.9 Noninfective gastroenteritis and colitis, unspecified (principal); I50.32 Chronic diastolic (congestive) heart failure; I49.5 Sick sinus syndrome; I11.0 Hypertensive heart disease with heart failure; N17.9 Acute kidney failure, unspecified; E86.0 Dehydration; I48.0 Paroxysmal atrial fibrillation; J44.9 Chronic obstructive pulmonary disease, unspecified; G40.909 Epilepsy, unspecified, not intractable, without status epilepticus; I65.22 Occlusion and stenosis of left carotid artery; K56.41 Fecal impaction; E78.5 Hyperlipidemia, unspecified; Z87.891 Personal history of nicotine dependence; I73.00 Raynaud's syndrome without gangrene; H35.30 Unspecified macular degeneration; M19.90 Unspecified osteoarthritis, unspecified site; F41.9 Anxiety disorder, unspecified; I25.10 Atherosclerotic heart disease of native coronary artery without angina pectoris; Z45.018 Encounter for adjustment and management of other part of cardiac pacemaker; K44.9 Diaphragmatic hernia without obstruction or gangrene; G47.30 Sleep apnea, unspecified; K21.9 Gastro-esophageal reflux disease without esophagitis; Z60.2 Problems related to living alone; R10.9 Unspecified abdominal pain; W19.XXXA Unspecified fall, initial encounter; M79.7 Fibromyalgia; Z79.01 Long term (current) use of anticoagulants; Z79.02 Long term (current) use of antithrombotics/antiplatelets; Z79.51 Long term (current) use of inhaled steroids; Z79.82 Long term (current) use of aspirin; Z79.899 Other long term (current) drug therapy; Z85.118 Personal history of other malignant neoplasm of bronchus and lung; Z86.73 Personal history of transient ischemic attack (TIA), and cerebral infarction without residual deficits; Z98.61 Coronary angioplasty status; Z87.01 Personal history of pneumonia (recurrent); Z86.14 Personal history of Methicillin resistant Staphylococcus aureus infection; Z86.718 Personal history of other venous thrombosis and embolism
CPT/HCPCS: 36415; 71046; 74018; 74176; 80048; 80053; 80061; 80076; 81001; 81003; 82150; 83630; 83690; 83735; 83880; 84145; 84484; 85025; 85379; 85610; 85730; 86140; 87045; 87046; 87324; 93005; 94640; 99285